=== PATIENT | female | born 1975 | race Caucasian/White ===

== ENCOUNTER 2021-10-19 08:11 | Outpatient (CLI) | payer SELFPAY | END 2021-10-19 08:12 | disposition home or self-care (01) | LOC: DI.CARD 08:12 | PROVIDERS: Visit Provider Internal Medicine Cardiovascular Disease | DX: Z53.8 Procedure and treatment not carried out for other reasons (principal) | CPT/HCPCS: 93010 ==

== ENCOUNTER 2022-03-15 11:07 | Emergency (ER) | payer MEDICARE, MEDICAID, SELFPAY ==
--- NOTE | 2022-03-15 11:09 | ED.GENADUL_ITS ---
Discharge Plan Disposition Patient Disposition: HOME Condition: Stable Discharge Details Clinical Impression: Leg wound, left, History of fasciotomy, Wound infection Primary Care Provider: Valentin Parekh ED Provider: Radha Herrera Home Meds and New Rx's Prescriptions: New metronidazole 500 mg tablet 500 mg PO Q6H 7 Days Qty: 28 0RF cephalexin 500 mg capsule 500 mg PO QID 7 Days Qty: 28 0RF oxycodone 10 mg tablet 10 mg PO TID PRN (Reason: pain) Qty: 10 0RF prochlorperazine maleate [Compazine] 10 mg tablet 10 mg PO TID PRN (Reason: nausea and vomiting) Qty: 14 0RF Continued acetaminophen 325 mg capsule 975 mg PO Q8H PRN atorvastatin 80 mg tablet 80 mg PO DAILY clopidogrel [Plavix] 75 mg tablet 75 mg PO DAILY ferrous sulfate 325 mg (65 mg iron) tablet,delayed release (DR/EC) 325 mg PO Q OTHER DAY Tresiba FlexTouch U-200 200 unit/mL (3 mL) insulin pen 120 unit subcut DAILY losartan 25 mg tablet 25 mg PO DAILY magnesium oxide 400 mg (241.3 mg magnesium) tablet 400 mg PO BID metoprolol succinate 50 mg tablet extended release 24 hr 50 mg PO DAILY PRN nitroglycerin 0.4 mg tablet, sublingual 0.4 mg sublingual Q5M PRN Rx Instructions: do not exceed 3 doses per episode pantoprazole 20 mg tablet,delayed release (DR/EC) 20 mg PO DAILY fluticasone propion-salmeterol [Advair Diskus] 500-50 mcg/dose blister with device 1 inh inhalation BID albuterol sulfate 2.5 mg /3 mL (0.083 %) solution for nebulization 2.5 mg inhalation Q6H PRN insulin lispro [Humalog KwikPen Insulin] 100 unit/mL insulin pen 10 unit subcut QID torsemide 20 mg Tablet 20 mg PO BID methadone 10 mg/5 mL Solution 50 mg PO DAILY Discontinued oxycodone-acetaminophen [Percocet] 5-325 mg tablet 1 tab PO Q8H PRN Discharge Instructions Instructions: Acute Wound Care (ED) Additional Instructions: Stop taking your clindamycin today. Prescriptions for 2 antibiotics, Keflex and Flagyl, have been sent electronically to your pharmacy to take as directed until finished. A prescription for the antinausea medication Compazine and the pain medication oxycodone has been sent electronically to your pharmacy to take as needed and directed. Apply wet gauze directly to the wounds followed by a dry dressing and bandage over the wet gauze to be changed once daily. Call [facility] general surgery today to confirm a follow-up appointment with them for reevaluation in 2 weeks. Return immediately to the emergency department if you develop any worsening or new concerning symptoms. Discharge Data Discharge Date/Time-TO BE ENTERED AT DEPARTURE: 03/15/22 14:46 Discharge Physician: Radha Herrera Medical Decision Making 46yo female with a hypertension, hyperlipidemia, diabetes, Heart rate 110s. She is afebrile. She otherwise appears nontoxic. Her medial leg fasciotomy incision appears closed but she is able to express serosa nguineous drainage with pressure. Her lateral fasciotomy incision is open with yellow drainage noted on the dressing. There is edema of the leg compared to the right leg but no significant cellulitis or fluctuant abscess noted. Her left leg distal pulses are intact. Patient is requesting pain medication. She takes methadone 50 mg once daily. Will d/w [facility] clinic and obtain cbc, cmp, crp and contact [facility] for recommendations. History and presentation appears more consistent with wound infection and does not appear consistent with dvt so will hold on leg US at this time. D/w Sara Pedroza at [facility] -- pt last took 50mg methadone this morning. Recommend Percocet 7.5 or 10 mg to override methadone for pain relief. IV Tylenol ordered but patient states she took 1 g of Tylenol prior to arrival. Will order 10 mg oxycodone p.o. Labs reviewed. White blood cell count 13. Potassium 3.2, will replete. CRP 9.42. Discussed with general surgery at [facility] --pictures of leg today obtained with patient's permission --they are unable to view these at this time as they are in the OR. Lab results discussed. Relates that patient had no signs of compartment syndrome or myositis during her fasciotomy. Recommend that we switch the antibiotics from clindamycin to Keflex and Flagyl and continue wet-to-dry dressings. Patient can follow-up with [facility] or she can return to [facility] if desired. Patient feels comfortable with discharge to home. We will stop her clindamycin and restart her Keflex and Flagyl. Prescriptions for Compazine and oxycodone also sent electronically to her pharmacy. Patient states she will follow-up with [facility] general surgery. Wet-to-dry dressings placed at bedside and she is advised to continue this at home. Usual and customary return precautions given prior to discharge. Medical Records Medical records reviewed: Yes I reviewed the patient's medical records. Lab Data Lab results reviewed: Yes I reviewed the patient's lab results. Labs: Laboratory Tests Range/Units 03/15/22 03/15/22 11:41 11:41 WBC (4.4-10.8) 10^3/uL 13.76 H RBC (3.93-5.22) 10^6/uL 4.63 Hgb (11.2-15.7) g/dL 13.7 Hct (36.0-46.0) % 41.0 MCV (80-95) fL 89 MCH (27.0-33.0) pg 29.6 MCHC (32.0-36.0) % 33.4 RDW (11.7-14.6) % 14.1 Plt Count (130-400) 10^3/uL 370 MPV (8.0-11.0) fL 10.0 Immature Gran % 0.3 Neutrophils % 57.7 Lymphocytes % 27.5 Monocytes % 10.5 Eosinophils % 3.6 Basophils % 0.4 Nucleated RBC % (0.0-0.3) % 0.0 Absolute Neutrophils (1.2-6.7) 10^3/uL 7.94 H Absolute Lymphocytes (1.2-3.4) 10^3/uL 3.78 H Absolute Monocytes (0.1-0.8) 10^3/uL 1.44 H Absolute Eosinophils (0.0-0.7) 10^3/uL 0.50 Absolute Basophils (0.0-0.2) 10^3/uL 0.06 Sodium (136-145) mmol/L 139 Potassium (3.5-5.1) mmol/L 3.2 L Chloride (98-107) mmol/L 101 Carbon Dioxide (21.0-32.0) mmol/L 30.8 Anion Gap (3-11) mmol/L 7.2 BUN (7-18) mg/dL 20 H Creatinine (0.55-1.02) mg/dL 0.8 Estimated GFR/1.73 m2 (mL/min/1.73m2) >= 60.00 Glucose (74-106) mg/dL 162 H Calcium (8.5-10.1) mg/dL 8.8 Total Bilirubin (0.2-1.0) mg/dL 0.3 AST (15-37) U/L 16 ALT (14-59) U/L 20 Alkaline Phosphatase (46-116) U/L 130 H C-Reactive Protein (0.0-0.3) mg/dL 9.42 H Total Protein (6.4-8.2) g/dL 8.0 Albumin (3.4-5.0) g/dL 3.4 HPI General Date/Time Provider Initiated Documentation: 03/15/22 11:09 . Limitations to Documentation: no limitations . Information obtained by: patient . HPI Narrative: Patient is a 46-year-old female with a history of hypertension, hyperlipidemia, diabetes, GERD, NSTEMI with a history of a left lower extremity fasciotomy and wound biopsy on 02/19/2022 at [facility] presents for concern for worsening pain, swelling and drainage from her left leg wounds. Patient states she followed up with [facility] last week as this is closer to home and she states they removed her sutures 1 week ago which she states was 1 week prematurely. She states since then she has had increased pain, swelling with yellow drainage from her wounds. She states she is taking clindamycin 4 times daily which she is unable to tolerate due to nausea. She states she is also on methadone but was given Percocet from [facility] which she states she has finished and needs more because she cannot control her pain. She admits to feeling feverish. Related Data Home Medications Medication Instructions Recorded Confirmed acetaminophen 325 mg capsule 975 mg PO Q8H PRN 10/18/21 03/15/22 albuterol sulfate 2.5 mg/3 mL 2.5 mg inhalation Q6H PRN 10/18/21 03/15/22 (0.083 %) solution for nebulization atorvastatin 80 mg tablet 80 mg PO DAILY 10/18/21 03/15/22 clopidogrel 75 mg tablet (Plavix) 75 mg PO DAILY 10/18/21 03/15/22 ferrous sulfate 325 mg (65 mg 325 mg PO Q OTHER DAY 10/18/21 03/15/22 iron) tablet,delayed release fluticasone 500 mcg-salmeterol 50 1 inh inhalation BID 10/18/21 03/15/22 mcg/dose blistr powdr for inhalation (Advair Diskus) insulin degludec 200 unit/mL (3 120 unit subcut DAILY 10/18/21 03/15/22 mL) subcutaneous pen (Tresiba FlexTouch U-200 insulin) insulin lispro 100 unit/mL 10 unit subcut QID 10/18/21 03/15/22 subcutaneous pen (Humalog KwikPen (U-100) Insulin) losartan 25 mg tablet 25 mg PO DAILY 10/18/21 03/15/22 magnesium oxide 400 mg (241.3 mg 400 mg PO BID 10/18/21 03/15/22 magnesium) tablet metoprolol succinate 50 mg 50 mg PO DAILY PRN 10/18/21 03/15/22 tablet,extended release 24 hr nitroglycerin 0.4 mg sublingual 0.4 mg sublingual Q5M PRN 10/18/21 03/15/22 tablet pantoprazole 20 mg tablet,delayed 20 mg PO DAILY 10/18/21 03/15/22 release cephalexin 500 mg capsule 500 mg PO QID 7 days #28 caps 03/15/22 methadone 10 mg/5 mL oral solution 50 mg PO DAILY 03/15/22 03/15/22 metronidazole 500 mg tablet 500 mg PO Q6H 7 days #28 tabs 03/15/22 oxycodone 10 mg tablet 10 mg PO TID PRN pain #10 tabs 03/15/22 prochlorperazine maleate 10 mg 10 mg PO TID PRN nausea and 03/15/22 tablet (Compazine) vomiting #14 tabs torsemide 20 mg tablet 20 mg PO BID 03/15/22 03/15/22 Previous Rx's Medication Instructions Recorded cephalexin 500 mg capsule 500 mg PO QID 7 days #28 caps 03/15/22 metronidazole 500 mg tablet 500 mg PO Q6H 7 days #28 tabs 03/15/22 oxycodone 10 mg tablet 10 mg PO TID PRN pain #10 tabs 03/15/22 prochlorperazine maleate 10 mg 10 mg PO TID PRN nausea and 03/15/22 tablet (Compazine) vomiting #14 tabs Allergies Allergy/AdvReac Type Severity Reaction Status Date / Time Bleach (Sodium Hypochlorite) Allergy Unknown Verified 03/15/22 11:21 mushroom Allergy Unknown Verified 03/15/22 11:21 Penicillins Allergy Unknown Verified 03/15/22 11:21 tramadol Allergy Unknown Verified 03/15/22 11:21 mold Allergy Verified 03/15/22 11:21 trazodone Allergy Unverified 03/15/22 11:21 General Stated Complaint: Cellulitis Review of Systems All systems reviewed & are unremarkable except as noted in HPI and below Constitutional Constitutional: Denies chills, Denies excessive sweating, Denies fatigue, Denies fever(s), Denies weakness and Denies weight loss Eyes Eyes: Reports system reviewed and no additional complaints, except as documented and Denies blurry vision ENT Ears, Nose, Mouth, and Throat: Denies vertigo, Denies dizziness, Denies otalgia, Denies nasal congestion, Denies sore throat and Denies throat swelling Cardiovascular Cardiovascular: Denies chest pain, Denies syncope, Denies rapid heart rate and D enies dyspnea Respiratory Respiratory: Denies chest congestion, Denies cough, Denies pain on inspiration and Denies dyspnea Gastrointestinal Gastrointestinal: Denies abdominal pain, Denies diarrhea and Denies vomiting Genitourinary Genitourinary: Denies hematuria, Denies dysuria and Denies flank pain Musculoskeletal Musculoskeletal: Denies back pain and Denies joint swelling Comments: Left leg pain Integumentary/Breasts Skin/Breast: Denies lesions and Denies rash Neurologic Neurologic: Denies behavioral changes, Denies confusion, Denies vertigo, Denies dizziness, Denies syncope, Denies localized weakness and Denies weakness Psychiatric Psychiatric: Denies behavioral changes, Denies confusion and Denies depression Endocrine Endocrine: Denies excessive sweating and Denies fatigue Hematologic/Lymphatic Hematologic/Lymphatic: Denies easy bruising and Denies lymphadenopathy Allergic/Immunologic Allergic/Immunologic: Denies throat swelling PFSH All Active Problems (Updated 03/15/22 @ 14:32 by Radha Herrera DO) Leg wound, left (Acute) History of fasciotomy (Acute) Wound infection (Acute) Pulmonary HTN (Acute) Heart failure (Acute) 09/02/21 with LA low EF Non-STEMI (non-ST elevated myocardial infarction) (Acute) 09/02/21 Vertigo (Acute) GERD (gastroesophageal reflux disease) (Chronic) Essential hypertension (Acute) Asthma (Chronic) Depression (Chronic) PTSD (post-traumatic stress disorder) (Acute) Tobacco abuse disorder (Acute) Hypokalemia (Acute) Chronic gout (Acute) Hyperlipidemia (Acute) Diabetic peripheral neuropathy (Acute) Type 2 diabetes mellitus (Acute) Medical History (Updated 03/15/22 @ 14:32 by Radha Herrera DO) COVID was vaccinated but contracted Covid 06/22 History of gastrointestinal ulcer Surgical History (Updated 03/15/22 @ 14:21 by Radha Herrera DO) H/O bone graft left knee H/O shoulder surgery x4 and ending with a full replacement H/O total hysterectomy History of appendectomy History of colonoscopy History of esophagogastroduodenoscopy (EGD) gastritis with gastric ulcers Previous section x4 delivery Family History (Updated 09/29/21 @ 13:41 by Wilian Carter) Mother Cancer Heart disease Obstructive lung disease Depression Arthritis Degeneration of intervertebral disc Father Alcohol use disorder Brother Hypertension Mood disorder Maternal Grandfather Alcohol use disorder Maternal Grandmother Breast cancer Maternal Aunt Breast cancer Paternal Aunt Breast cancer Social History (Updated 09/29/21 @ 13:50 by Wilian Carter) Smoking/Tobacco Use Status: Current every day Tobacco: How many years used: 34 Smoking risk assessment performed?: Yes Alcohol Intake: never Substance use type: does not use Do you feel safe at home: Yes Do you feel safe in your relationship?: Yes Exam Const General: cooperative Orientation: alert, awake and oriented x3 HENMT Head: normal to inspection Ears: hearing grossly normal bilaterally, external ears normal and TM's normal bilaterally General nose exam: external nose normal Face and sinus: normal facial exam Mouth: oral mucosae normal Teeth and gingiva: dentition normal Throat: posterior oropharynx normal Eyes General: appearance normal, both eyes and all related structures Eyelids: eyelids normal Pupils: PERRL EOM: EOM intact bilaterally Neck Neck: normal visual inspection Lymphatic: no lymphadenopathy noted Chest Chest: normal inspection of the chest Resp Effort & Inspection: normal respiratory effort and able to speak in complete sentences Auscultation: clear to auscultation bilaterally Cardio Rate: regular rate Rhythm: regular rhythm GI Inspection: normal to inspection Palpation: soft, not firm, no guarding, no hepatosplenomegaly, no masses and nontender Auscultation: normal bowel sounds Back/Spine/Pelvis Back: no CVA tenderness Skin General skin exam: no rashes or lesions noted Neuro General: patient alert and patient awake Cognition: normal cognition Speech: speech normal Gait: normal gait Motor: muscle tone normal throughout Sensory Exam: no sensory deficits noted Extrem General: capillary refill normal Ankle/foot/toe images: 1. 5 cm incision appears mostly approximated with minimal surrounding erythema but no fluctuance. There is serosanginous drainage with pressure. 2. 5 cm incision with approximately 2 cm opening. There is yellow drainage with in the wound but no surrounding erythema or fluctuance. Other: L DP/PT pulses intact. Psych Appearance: grossly normal Mental Status: mental status grossly normal Speech and Movement: speech and movement normal Affect: normal affect Thought Process: normal
[2022-03-15 11:14] VITALS: BP 114/81; PULSE 112; RESP 16; TEMP 36.1; O2SAT 96
[2022-03-15 11:46] LABS: Abs Immature Grans 0.04 10^3/uL (0.0-0.06); Absolute Basophil Count 0.06 10^3/uL (0.0-0.2); Absolute Lymphocyte Count 3.78 10^3/uL (1.2-3.4); Absolute Monocyte Count 1.44 10^3/uL (0.1-0.8); Absolute Neutrophil Count 7.94 10^3/uL (1.2-6.7); Basophils % 0.4; Eosinophils % 3.6; HGB 13.7 g/dL (11.2-15.7); Immature Grans % 0.3; Lymphocytes % 27.5; MCH 29.6 pg (27.0-33.0); MCHC 33.4 % (32.0-36.0); MCV 89 fL (80-95); Monocytes % 10.5; Neutrophils % 57.7; Platelet Count 370 10^3/uL (130-400); RBC 4.63 10^6/uL (3.93-5.22); RDW 14.1 % (11.7-14.6); RDW-SD 45.3 fL; WBC 13.76 10^3/uL (4.4-10.8)
[2022-03-15 12:06] LABS: ALT 20 U/L (14-59); AST 16 U/L (15-37); Albumin 3.4 g/dL (3.4-5.0); Alkaline Phosphatase 130 U/L (46-116); Anion Gap 7.2 mmol/L (3-11); BUN 20 mg/dL (7-18); Bilirubin, Total 0.3 mg/dL (0.2-1.0); C-Reactive Protein 9.42 mg/dL (0.0-0.3); CO2 30.8 mmol/L (21.0-32.0); CREATININE 0.8 mg/dL (0.55-1.02); Calcium 8.8 mg/dL (8.5-10.1); Chloride 101 mmol/L (98-107); Glucose 162 mg/dL (74-106); Potassium 3.2 mmol/L (3.5-5.1); Sodium 139 mmol/L (136-145)
[2022-03-15] MEDS: Potassium Chloride 20 MEQ TABCR 40 MEQ PO (12:18)
[2022-03-15] MEDS: oxyCODONE 10 MG TAB PO (12:18)
[2022-03-15] MEDS: Prochlorperazine 10 MG/2 ML VIAL IVP (13:41)
[2022-03-15] MEDS: Ketorolac 30 MG/ML VIAL IVP (13:41)
--- NOTE | 2022-03-16 10:54 | PDOC.ERCMACT ---
- If Service Date Differs Date of service: 03/16/22 Time of Service: 10:54 Care Management Activity Note Aracelis was seen in the ED on 03/15/22 for a leg wound infection and was subsequently discharged home. This morning, CM receives a phone call from Lesvia at [facility] inquiring if Aracelis was admitted to the hospital. Lesvia advises an RN was scheduled to make a home visit this morning but the RN has been unable to reach December. At Lesvia's request, the ED Visit Note is faxed to [facility].
== END 2022-03-15 14:46 | disposition home or self-care (01) ==
PROVIDERS: Emergency Provider Physician Assistant; PCP Family Medicine
DX: T81.49XA Infection following a procedure, other surgical site, initial encounter (principal)
CPT/HCPCS: 80053; 96374; 96375; 99284; 85025; 86140; 99283; J0780; J1885

== ENCOUNTER 2022-08-14 18:27 | Observation (INO) | payer MEDICARE, MEDICAID, SELFPAY ==
[2022-08-14] VITALS (51 sets, daily range): BP systolic 80–140; BP diastolic 48–86; PULSE 66–105; RESP 8–24; TEMP 36.7–36.8; O2SAT 94–97
--- NOTE | 2022-08-14 18:15 | RT.EKG_ITS ---
APPROVED REPORT Exam: Resting ECG Reason for Exam: palpitations, ? stroke Patient Location: E HR:96 bpm ECG Measurements Heart Rate 96 AXIS CO 146 P 11 QRSd 92 QRS 0 QT 407 T 53 QTc 515 Conclusion Sinus rhythm...normal P axis, V-rate 60- 99 Anterior infarct, old...Q >40mS, abnormal ST-T, V2-V5 Prolonged QT interval...QTc >510mS
--- OUTSIDE RECORDS SUMMARY | 2022-08-14 18:33 | XMS_ITS | Clinical Summary ---
:1975 Author Organization [facility] [place] [address] Care Team Providers Name Role Phone Lora Parekh MD Primary Care Provider Allergies Active Allergy Reactions Severity Noted Date Comments Penicillins Spoke to mother Vicenta. Rash and SOB as a child Tramadol 05/13/2022 Heart races Trazodone Low Medications Medication Sig Dispensed Refills Start Date End Date Status albuterol Take 2.49 mg by 0 Acti ve (PROVENTIL) 2.5 mg nebulization every 6 /3 mL (0.083 %) hours as needed. nebulizer solution fluticasone Inhale 1 puff into 0 Active propion-salmeteroL the lungs 2 times (ADVAIR) 500-50 daily. mcg/dose Disk with Device aspirin EC 81 mg Take 1 tablet by 30 tablet 3 09/06/2021 Active Tablet, Delayed mouth daily. Release (E.C.) atorvastatin Take 1 tablet by 90 tablet 3 09/05/2021 Active (Lipitor) 80 mg mouth every evening. Tablet clopidogreL (Plavix) Take 1 tablet by 90 tablet 3 09/06/2021 Active 75 mg Tablet mouth daily. ferrous sulfate EC Take 1 tablet by 30 tablet 3 09/06/2021 Active 325 mg (65 mg iron) mouth every other Tablet, Delayed day. Release (E.C.) Additional Information Patient taking differently: 325 mg Oral 2 TIMES DAILY, Reported on 05/13/2022 magnesium oxide (Mag-Ox) Take 1 tablet by mouth 2 30 tablet 12 09/05/2021 Active 400 mg (241.3 mg magnesium) times daily. Tablet gabapentin (Neurontin) 300 Take 2 capsules by mouth 90 capsule 12 09/05/2021 Active mg Capsule 2 times daily. Additional Information Patient taking differently: 600 mg Oral DAILY, Reported on 05/13/2022 insulin needles, disposable, Inject 1 each 100 each 11 021 Active 32 gauge x /32 subcutaneously daily. NeedleIndications: diabetes Indications: diabetes mellitus mellitus nicotine (Nicoderm CQ) 14 Change 1 patch on the 28 patch 3 Active mg/24 hr Patch 24 hr skin daily. pantoprazole EC (Protonix) Take 1 tablet by mouth 90 tablet 3 09/05/2021 Active 20 mg Tablet, Delayed daily. Release (E.C.) Additional Information Patient taking differently: 40 mg Oral DAILY, Reported on 05/13/2022 Blood Pressure Kit Med & 1 Product by 1 kit 0 09/06/2021 Active Lrg KitIndications: HFrEF Misc.(Non-Drug; Combo (heart failure with reduced Route) route 2 times ejection fraction), daily. Coronary artery disease involving [place] coronary artery of [place] heart without angina pectoris, Hypertension, unspecified type dextromethorphan Take 1 capsule by mouth 20 capsule 0 02/25/20 22 Active (Robitussin) 15 mg Capsule every 6 hours. ondansetron (Zofran) 4 mg Take 1-2 tablets by mouth 20 tablet 0 02/24/2022 Active Tablet every 8 hours as needed. polyethylene glycoL Take 17 g by mouth daily 14 each 0 02/24 Active (Miralax) 17 gram Powder in as needed. Packet acetaminophen (Tylenol) 500 Take 2 tablets by mouth 30 tablet 1 02/24/2022 Active mg Tablet every 6 hours. Additional Information Patient taking differently: 1,000 mg Oral PRN, Reported on 05/13/2022 liraglutide (VICTOZA) 0.6 Inject 1.8 mg 30 mL 0 02/24/2022 Active mg/0.1 mL (18 mg/3 mL) Pen subcutaneously daily. Injector cetirizine (ZyrTEC) 10 mg Take 10 mg by mouth daily 0 11/30/2021 Active Tablet as needed. colchicine (Colcrys) 0.6 Take 0.6 mg by mouth 2 0 Active mg Tablet times daily. Jardiance 10 mg Tablet Take 10 mg by mouth daily. 0 05/09/2022 Active fluticasone propionate as needed. 0 04/13/2022 Active (Flonase) 50 mcg/actuation [place], Suspension folic acid (Folvite) 1 mg Take 1,000 mcg by mouth 0 04/12/2022 Active Tablet daily. humaLOG KwikPen 100 as needed. 0 04/13/2022 Active unit/mL Insulin Pen methadone (Dolophine) 10 Take 100 mg by mouth every 0 Active mg Tablet 8 hours. [facility] furosemide (Lasix) 40 mg Take 1 tablet by mouth 60 tablet 3 Active Tablet daily. metoprolol succinate XL Take 1 tablet by mouth 60 tablet 3 Active (Toprol-XL) 25 mg Tablet daily. Sustained Release 24 hr nitroGLYcerin (Nitroglyn) Change 0.5 inches on the 30 g 0 05/23/2022 Active 2 % Ointment skin every 6 hours. nitroGLYcerin (Nitrostat) Place 1 tablet under the 25 tablet 3 05/23/2022 Active 0.4 mg Tablet, Sublingual tongue every 5 minutes as needed for Chest pain. Insulin Tresiba FlexTouch Inject 12 Units 9 mL 3 05/23/20 Active U-200 200 unit/mL (3 mL) subcutaneously daily. Insulin PenIndications: Indications: type 2 type 2 diabetes mellitus diabetes mellitus Active Problems Problem Noted Date Ischemic cardiomyopathy 05/17/2022 ASCVD (arteriosclerotic cardiovascular disease) 2021 Myositis 02/19/2022 NSTEMI (non-ST elevated myocardial infarction) 021 Dislocation of left shoulder joint, chronic, recurrent , with multiple 08/02/2012 surgeries. Encounters Date Type Specialty Care Team Description 06/02/2022 Office Visit Cardiology Denise Reeves, Cardiomyopa thy, unspecified type; PA HFrEF (heart fa ilure with reduced ejection fraction); DH PATIENT NOT SEEN 05/19/2022 Surgery Cardiology Khalida Otero CARDIAC CATH ETERIZATION MD [place] 05/17/2022 Surgery Cardiology Rafi Barrett CARDIAC GREG TERAMBROSE Hernandez MD 05/17/2022 - Hospital Encounter aRfi Barrett Coronar y artery disease involving [place] coronary artery of [place] heart without angina pectoris; 05/23/2022 MD Mary NSTEMI (non-ST elevated myocardial infar ction); John Paul Milley, Ischemic ca rdiomyopathy; Tameka Kulkarni MD Skin lesion; Hernán Mariscal ASCVD (arteri osclerotic cardiovascular disease) MD Marc from Last 3 Months Immunizations Name Administration Dates Next Due Influenza Vaccine PF, Quadrivalent 02/24/2022 Social History Tobacco Use Types Packs/Day Years Used Date Smoking Tobacco: Every Day Cigarettes 0.5 Smokeless Tobacco: Never Tobacco Cessation: Ready to Quit: No; Co unseling Given: No Alcohol Use Standard Drinks/Week Comments Yes 0 (1 standard drink = 0.6 oz pure alcoho l) occasional Sex Assigned at Date Recorded Not on file Last Filed Vital Signs Vital Sign Reading Time Taken Comments Blood Pressure 94/60 05/23/2022 11:40 AM EDT Pulse 56 05/23/2022 4:06 AM EDT Temperature 37.3 ??C (99.1 ??F) 05/23/2022 11:40 AM EDT Respiratory Rate 17 05/23/2022 11:40 AM EDT Oxygen Saturation 97% 05/23/2022 11:40 AM EDT Inhaled Oxygen Concentration - - Weight 84.2 kg (185 lb 10 oz) 05/23/2022 6:08 AM EDT Height 162.6 cm (5' 4) 05/18/2022 3:48 AM EDT Body Mass Index 31.86 05/18/2022 3:48 AM EDT Plan of Treatment Upcoming Encounters Date Type Specialty Care Team Description 08/22/2022 Appointment Cardiology 08/22/2022 Laboratory Appointment Lab 08/22/2022 Office Visit Cardiology Tameka Neal MD [facility] [address] [place] [address] (Wo rk) Health Maintenance Due Date Last Done Comments Covid-19 Vaccine (#1) 01/25/1976 Pneumococcal Vaccine: At-Risk 1981 5-64yrs (1 - PCV) HIV screen 1993 Hepatitis C Screening 1993 Tdap adult 1994 Tetanus vaccine 1994 HPV test 2005 Breast Cancer Share Decision 2015 Needed PAP Smear 10/21/2016 10/21/2011 Colonoscopy 2020 Influenza (Flu) vaccine (1 of 1 - 06/02/2022 02/24/2022 Influenza standard series) Diabetes Screening (HgbA1C or 05/23/2025 05/23/2022, 2021, Glucose) 05/21/2022, Additional history exists Procedures Procedure Name Priority Date/Time Associated Comments Diagnosis SCAN DOC: TELEMETRY 05/23/2022 11:40 Resu lts for this STRIPS AM EDT procedure are i n the results section. POCT GLUCOSE Routine 05/23/2022 11:39 Results for this AM EDT procedure are i n the results section. ARTERIAL DUPLEX ARM, Routine 05/23/2022 11:38 Skin lesion Res ults for this UNILAT AM EDT procedure are i n the results section. SCAN DOC: TELEMETRY 05/23/2022 7:39 Resul ts for this STRIPS AM EDT procedure are i n the results section. POCT GLUCOSE Routine 05/23/2022 7:27 Results for this AM EDT procedure are i n the results section. SCAN DOC: TELEMETRY 05/23/2022 4:47 Resul ts for this STRIPS AM EDT procedure are i n the results section. DIFFERENTIAL, AUTOMATED Routine 05/23/2022 3:19 R esults for this AM EDT procedure are i n the results section. HEMOGRAM Routine 05/23/2022 3:19 Results for this AM EDT procedure are i n the results section. HC CBC,PLT & AUTO DIFF Routine 05/23/2022 3:19 AM EDT HC VENIPUNCTURE Routine 05/23/2022 3:19 Results f or this AM EDT procedure are i n the results section. POCT GLUCOSE Routine 05/22/2022 8:06 Results for this PM EDT procedure are i n the results section. POCT GLUCOSE Routine 05/22/2022 5:39 Results for this PM EDT procedure are i n the results section. SCAN DOC: TELEMETRY 05/22/2022 4:55 Resul ts for this STRIPS PM EDT procedure are i n the results section. POCT GLUCOSE Routine 05/22/2022 12:07 Results for this PM EDT procedure are i n the results section. POCT GLUCOSE Routine 05/22/2022 8:04 Results for this AM EDT procedure are i n the results section. EKG 12-LEAD Routine 05/22/2022 6:31 Coronary artery Results f or this AM EDT disease involving procedure are in [place] coronary the results artery of [place] section. heart without angina pectoris SCAN DOC: TELEMETRY 05/22/2022 5:48 Resul ts for this STRIPS AM EDT procedure are i n the results section. AMYLASE Routine 05/22/2022 5:04 Results for this AM EDT procedure are i n the results section. LIPASE Routine 05/22/2022 5:04 Results for this AM EDT procedure are i n the results section. HEPATIC FUNCTION PANEL Routine 05/22/2022 5:04 Re sults for this AM EDT procedure are i n the results section. DIFFERENTIAL, AUTOMATED Routine 05/22/2022 5:04 R esults for this AM EDT procedure are i n the results section. HEMOGRAM Routine 05/22/2022 5:04 Results for this AM EDT procedure are i n the results section. HC MAGNESIUM, SERUM Routine 05/22/2022 5:04 Resul ts for this AM EDT procedure are i n the results section. HC CBC,PLT & AUTO DIFF Routine 05/22/2022 5:04 AM EDT HC VENIPUNCTURE Routine 05/22/2022 5:04 Results f or this AM EDT procedure are i n the results section. POCT GLUCOSE Routine 05/21/2022 7:34 Results for this PM EDT procedure are i n the results section. SCAN DOC: TELEMETRY 05/21/2022 5:47 Resul ts for this STRIPS PM EDT procedure are i n the results section. POCT GLUCOSE Routine 05/21/2022 4:37 Results for this PM EDT procedure are i n the results section. POCT GLUCOSE Routine 05/21/2022 12:34 Results for this PM EDT procedure are i n the results section. POCT GLUCOSE Routine 05/21/2022 11:03 Results for this AM EDT procedure are i n the results section. POCT GLUCOSE Routine 05/21/2022 9:48 Results for this AM EDT procedure are i n the results section. SCAN DOC: TELEMETRY 05/21/2022 8:08 Resul ts for this STRIPS AM EDT procedure are i n the results section. POCT GLUCOSE Routine 05/21/2022 7:42 Results for this AM EDT procedure are i n the results section. EKG 12-LEAD Routine 05/21/2022 6:45 Coronary artery Results f or this AM EDT disease involving procedure are in [place] coronary the results artery of [place] section. heart without angina pectoris SCAN DOC: TELEMETRY 05/21/2022 5:45 Resul ts for this STRIPS AM EDT procedure are i n the results section. POCT GLUCOSE Routine 05/21/2022 4:53 Results for this AM EDT procedure are i n the results section. DIFFERENTIAL, AUTOMATED Routine 05/21/2022 3:50 R esults for this AM EDT procedure are i n the results section. HEMOGRAM Routine 05/21/2022 3:50 Results for this AM EDT procedure are i n the results section. HC MAGNESIUM, SERUM Routine 05/21/2022 3:50 Resul ts for this AM EDT procedure are i n the results section. HC CBC,PLT & AUTO DIFF Routine 05/21/2022 3:50 AM EDT HC VENIPUNCTURE Routine 05/21/2022 3:50 Results f or this AM EDT procedure are i n the results section. POCT GLUCOSE Routine 05/20/2022 11:31 Results for this PM EDT procedure are i n the results section. POCT GLUCOSE Routine 05/20/2022 8:35 Results for this PM EDT procedure are i n the results section. SCAN DOC: TELEMETRY 05/20/2022 6:14 Resul ts for this STRIPS PM EDT procedure are i n the results section. POCT GLUCOSE Routine 05/20/2022 4:24 Results for this PM EDT procedure are i n the results section. POCT GLUCOSE Routine 05/20/2022 11:27 Results for this AM EDT procedure are i n the results section. SCAN DOC: TELEMETRY 05/20/2022 10:16 Resu lts for this STRIPS AM EDT procedure are i n the results section. POCT GLUCOSE Routine 05/20/2022 7:30 Results for this AM EDT procedure are i n the results section. EKG 12-LEAD Routine 05/20/2022 5:39 Coronary artery Results f or this AM EDT disease involving procedure are in [place] coronary the results artery of [place] section. heart without angina pectoris SCAN DOC: TELEMETRY 05/20/2022 5:23 Resul ts for this STRIPS AM EDT procedure are i n the results section. POCT GLUCOSE Routine 05/20/2022 4:31 Results for this AM EDT procedure are i n the results section. DIFFERENTIAL, AUTOMATED Routine 05/20/2022 3:40 R esults for this AM EDT procedure are i n the results section. HEMOGRAM Routine 05/20/2022 3:40 Results for this AM EDT procedure are i n the results section. HC MAGNESIUM, SERUM Routine 05/20/2022 3:40 Resul ts for this AM EDT procedure are i n the results section. HC CBC,PLT & AUTO DIFF Routine 05/20/2022 3:40 AM EDT HC VENIPUNCTURE Routine 05/20/2022 3:40 Results f or this AM EDT procedure are i n the results section. POCT GLUCOSE Routine 05/20/2022 3:27 Results for this AM EDT procedure are i n the results section. POCT GLUCOSE Routine 05/20/2022 12:25 Results for this AM EDT procedure are i n the results section. EKG 12-LEAD Routine 05/19/2022 11:33 NSTEMI (non-ST Results f or this PM EDT elevated procedure are i n myocardial the results infarction) section. POCT GLUCOSE Routine 05/19/2022 8:35 Results for this PM EDT procedure are i n the results section. POCT GLUCOSE Routine 05/19/2022 6:07 Results for this PM EDT procedure are i n the results section. SCAN DOC: TELEMETRY 05/19/2022 5:13 Resul ts for this STRIPS PM EDT procedure are i n the results section. POCT GLUCOSE Routine 05/19/2022 12:41 Results for this PM EDT procedure are i n the results section. SCAN DOC: TELEMETRY 05/19/2022 12:30 Resu lts for this STRIPS PM EDT procedure are i n the results section. CARDIAC CATHETERIZATION Routine 05/19/2022 10:17 Results for this AM EDT procedure are i n the results section. POCT GLUCOSE Routine 05/19/2022 7:31 Results for this AM EDT procedure are i n the results section. EKG 12-LEAD Routine 05/19/2022 5:59 Coronary artery Results f or this AM EDT disease involving procedure are in [place] coronary the results artery of [place] section. heart without angina pectoris SCAN DOC: TELEMETRY 05/19/2022 5:44 Resul ts for this STRIPS AM EDT procedure are i n the results section. POCT GLUCOSE Routine 05/19/2022 4:10 Results for this AM EDT procedure are i n the results section. DIFFERENTIAL, AUTOMATED Routine 05/19/2022 3:33 R esults for this AM EDT procedure are i n the results section. HEMOGRAM Routine 05/19/2022 3:33 Results for this AM EDT procedure are i n the results section. HC MAGNESIUM, SERUM Routine 05/19/2022 3:33 Resul ts for this AM EDT procedure are i n the results section. HC CBC,PLT & AUTO DIFF Routine 05/19/2022 3:33 AM EDT HC VENIPUNCTURE Routine 05/19/2022 3:33 Results f or this AM EDT procedure are i n the results section. POCT GLUCOSE Routine 05/19/2022 12:15 Results for this AM EDT procedure are i n the results section. PLANT CUSTODIAN SCAN 05/19/2022 12:00 Res ults for this AM EDT procedure are i n the results section. POCT GLUCOSE Routine 05/18/2022 8:21 Results for this PM EDT procedure are i n the results section. EKG 12-LEAD Routine 05/18/2022 7:05 Results for this PM EDT procedure are i n the results section. SCAN DOC: TELEMETRY 05/18/2022 5:02 Resul ts for this STRIPS PM EDT procedure are i n the results section. POCT GLUCOSE Routine 05/18/2022 4:04 Results for this PM EDT procedure are i n the results section. EKG 12-LEAD STAT 05/18/2022 3:40 Coronary artery Results f or this PM EDT disease involving procedure are in [place] coronary the results artery of [place] section. heart without angina pectoris US ABDOMEN LIMITED Routine 05/18/2022 2:52 Result s for this PM EDT procedure are i n the results section. POCT GLUCOSE Routine 05/18/2022 11:16 Results for this AM EDT procedure are i n the results section. POCT GLUCOSE Routine 05/18/2022 8:02 Results for this AM EDT procedure are i n the results section. POCT GLUCOSE Routine 05/18/2022 6:34 Results for this AM EDT procedure are i n the results section. SCAN DOC: TELEMETRY 05/18/2022 5:28 Resul ts for this STRIPS AM EDT procedure are i n the results section. EKG 12-LEAD STAT 05/18/2022 4:40 Coronary artery Results f or this AM EDT disease involving procedure are in [place] coronary the results artery of [place] section. heart without angina pectoris HEMOGLOBIN A1C STAT 05/17/2022 8:12 Results fo r this PM EDT procedure are i n the results section. HEPATIC FUNCTION PANEL STAT 05/17/2022 8:12 Re sults for this PM EDT procedure are i n the results section. SCAN, PERIPHERAL BLOOD STAT 05/17/2022 8:12 Re sults for this PM EDT procedure are i n the results section. DIFFERENTIAL, AUTOMATED STAT 05/17/2022 8:12 R esults for this PM EDT procedure are i n the results section. HEMOGRAM STAT 05/17/2022 8:12 Results for this PM EDT procedure are i n the results section. HC PROBNP STAT 05/17/2022 8:12 Results for this PM EDT procedure are i n the results section. HC MAGNESIUM, SERUM STAT 05/17/2022 8:12 Resul ts for this PM EDT procedure are i n the results section. BMP W/FASTING GLUCOSE STAT 05/17/2022 8:12 Res ults for this PM EDT procedure are i n the results section. HC CBC,PLT & AUTO DIFF STAT 05/17/2022 8:12 PM EDT POCT GLUCOSE Routine 05/17/2022 6:38 Results for this PM EDT procedure are i n the results section. POCT GLUCOSE Routine 05/17/2022 5:46 Results for this PM EDT procedure are i n the results section. EKG 12-LEAD Routine 05/17/2022 5:43 Coronary artery Results f or this PM EDT disease involving procedure are in [place] coronary the results artery of [place] section. heart without angina pectoris CARDIAC CATHETERIZATION Routine 05/17/2022 5:24 Coronary arter y Results for this PM EDT disease involving procedure are in [place] coronary the results artery of [place] section. heart without angina pectoris CORONARY ANGIOGRAPHY; W 05/17/2022 2:11 Coronary arter y LHC,POSSIBLE PCI PM EDT disease involving [place] coronary artery of [place] heart without angina pectoris CORONARY ANGIOGRAPHY; W 05/17/2022 2:11 Coronary arter y RHC PM EDT disease involving [place] coronary artery of [place] heart without angina pectoris POCT GLUCOSE Routine 05/17/2022 12:44 Results for this PM EDT procedure are i n the results section. from Last 3 Months Results SCAN DOC: TELEMETRY STRIPS (05/23/2022 11:40 AM EDT)Only the most recent of16 resultswithin the time period is included. Narrative 05/23/2022 11:40 AM EDT This result has an attachment that is no t available. Ordered by an unspecified provider. Scanning Provider MEDIA MGR SCAN EXT ORDR/RSLT POCT Glucose (05/23/2022 11:39 AM EDT)Only the most recent of35 resultswithin the time period is included. athologist Signature POC Glucose 186 65 - 199 [facility] mg/dL [facility] Comment: Supplemental ranges: <140 mg/dL before meals <180 mg/dL all other times of the day Specimen Anatomical Collection Method Collection Time Receive d Time (Source) Location / / Volume Laterality Blood 05/23/2022 11:39 05/23/2022 AM EDT 11:39 AM EDT Hernán Mariscal MD POINT OF CARE TEST ORDERABLE S Performing Organization Address City/State/ZIP Code Phon e Number [place] [id number] Arterial Duplex Arm, Unilat (05/23/2022 11:38 AM EDT) Component Value Ref Test Analysis Performed At [facility] gist Range Method Time Signature VB Text Department: Vascular Surgery Lab [facility] Report Patient: [id number] (December) CPT: 71873 Referring Physician: TRINIDAD MARTINEZ ?? Phone: Indications: ??S/P cardiac cath with weeping wound. Findings: Right ?PSV (cm/s) ??EDV (cm/s) ?? Radial Artery, Distal ?54 ?15 ?? Interpretation: Right: Patent distal radial artery with no evidence of pseud oaneurysm or arteriovenous fistula in the distal forearm. Comparison: ??No previous study in our vascular lab da tabase for comparison. Electronically Signed by: LORA NEUMANN M.D. on 2022-05-23 10 :10:08 AM VB Text End of Report [facility] Report Specimen (Source) Anatomical Collection Method Collection Time Re ceived Time Location / / Volume Laterality 05/23/2022 11:38 AM EDT Trinidad Che APRN VASCULAR ORDERABLES Performing Organization Address City/State/ZIP Code Phon e Number [email or web address] (ABNORMAL) BMP w/fasting Glucose (05/23/2022 3:19 AM EDT)Only the most recent of 6 resultswithin the time period is included. athologist Signature Glucose 277 (H) 65 - 99 [facility] Fasting mg/dL [facility] Comment: ?Fasting* Glucose Interpretive C riteria Normal ?65-99 mg/dL Impaired Fasting glucose ?100-125 mg/dL Consistent with Diabetes Mellitus ? >or= 126 mg/dL *Fasting is defined as no caloric intake for at least 8 hours In the absence of unequivocal hypergly cemia a plasma glucose value of >or= 126 mg/dL should be repeated on a subseq uent day. Diagnosis and Classification of Diabetes Mellitus, Position Statement from the [place] [employer]. ??Diabete s Care, Volume 33, Supplement 1, Oct 2009 BUN 24 (H) 8 - 18 mg/dL [facility] Creatinine 0.77 0.70 - 1.20 mg/dL [facility] Sodium 137 135 - 145 mmol/L [facility] Potassium 4.4 3.5 - 5.0 mmol/L [facility] Comment: Please note: ??Patients with WBC >100,00 0 may have falsely elevated Potassium levels. ??For accurate Potassium quantif ication in these patients send serum separator tube (gold top) for subsequent determinations. ??Contact the Clinical Chemistry Laboratory if there are any qu estions. Chloride 102 98 - 107 mmol/L [facility] CO2 24 22 - 31 mmol/L [facility] Anion Gap 11 5 - 15 mmol/L [facility] Calcium 8.8 8.5 - 10.5 mg/dL [facility] Estimated GFR 96 >=60 mL/min/1.73 m?? [facility] Comment: This patient's estimated GFR was calcula vannesa using the 2020 CKD-EPI equation. The estimated GFR can vary from the tatiana ured GFR by up to 30% in the absence of rapidly changing kidney function. Assess ment of the estimated GFR is not appropriate when creatinine concentratio ns are rapidly changing. For clinical situations in which a more precise estim ate of GFR is necessary, consider alternative methods of GFR estimation ansari ch as a 24-hour urine creatinine clearance. Assignment of CKD stage 1-5 for patients with an eGFR near the transition point between stages may be based on clinical assessment of muscle mass and symptoms in addition to eGFR. Specimen Anatomical Collection Method Collection Time Receive d Time (Source) Location / / Volume Laterality Blood 05/23/2022 3:19 AM 2 3:40 EDT AM EDT Resulting Agency Comment Spec In Lab Trinidad Che APRN CHEMISTRY ORDERABLES Performing Organization Address City/State/[place] [address] (ABNORMAL) Hemogram (05/23/2022 3:19 AM EDT)Only the most recent of6 results within the time period is included. Analysis Performed At Patho logist Time Signature WBC 7.8 4.0 - 9.5 [facility] x10(3)/[facility] LABORATORY RBC 4.98 4.00 - [facility] 5.21 [facility] x10(6)/[facility] LABORATORY Hemoglobin 14.3 11.7 - [facility] 15.5 g/dL [facility] Hematocrit 44.1 35.7 - [facility] 45.8 % [facility] MCV 88.6 82.6 - [facility] 94.4 [facility] LABORATORY [facility] 28.7 27.1 - [place]EL WHEATJOSE DAVID 32.0 pg [facility] MCHC 32.4 31.7 - [place] JOSE DAVID 35.0 g/dL [facility] Platelets 301 145 - 357 [facility] x10(3)/[facility] LABORATORY RDWSD 46.6 (H) 37.0 - [facility] 46.0 [facility] LABORATORY RDWCV 14.5 (H) 11.5 - [facility] % [facility] MPV 10.4 7.6 - 12.9 [facility] LABORATORY nRBC % Auto 0.0 % [facility] nRBC Abs Auto 0.000 0.000 - [facility] 0.000 [facility] x10(3)/[facility] LABORATORY Specimen Anatomical Collection Method Collection Time Receive d Time (Source) Location / / Volume Laterality Blood 05/23/2022 3:19 AM 3:40 EDT AM EDT Resulting Agency Comment Spec In Lab Trinidad Che APRN HEMATOLOGY ORDERABLES Performing Organization Address City/State/ZIP Code Phon e Number [place] [phone] (ABNORMAL) Differential, Automated (05/23/2022 3:19 AM EDT)Only the most recent of6 resultswithin the time period is included. [facility] Method Time Signature Neutrophils % 36.4 % [facility] Neutr Abs (ANC) 2.86 1.70 - [place] 6.10 [facility] x10(3)/[facility] LABORATORY Lymphocytes % 44.5 % [facility] Lymphocytes Abs 3.5 (H) 0.9 - 3.2 [facility] x10(3)/[facility] LABORATORY Monocytes % 9.8 % [facility] Monocyte Abs 0.8 0.3 - 0.9 [facility] x10(3)/[facility] LABORATORY Eosinophils % 8.4 % [facility] Eosinophils Abs 0.7 (H) 0.0 - 0.4 [facility] x10(3)/[facility] LABORATORY Basophils % 0.6 % [facility] Basophils Abs 0.0 0.0 - 0.1 [facility] x10(3)/[facility] LABORATORY Immature Gran % 0.30 % [facility] Comment: Immature granulocytes(IG's)percentage an d absolute count will include metamyelocytes, myelocytes, and promyelo cytes. Blood smears from CBCs yielding IG's will be scanned manually for concor dance. If this scan disagrees with the automated IG or if promyelocytes are not ed, a manual differential will be performed. [facility]aya Gran Abs 0.02 0.00 - 0.04 x10(3)/[facility] Specimen Anatomical Collection Method Collection Time Receive d Time (Source) Location / / Volume Laterality Blood 05/23/2022 3:19 AM 2 3:40 EDT AM EDT Resulting Agency Comment Spec In Lab Trinidad Che NECK BAND OPERATOR HEMATOLOGY ORDERABLES Performing Organization Address City/State/ZIP Code Phon e Number [place] [phone] EKG 12 Lead (05/22/2022 6:31 AM EDT)Only the most recent of9 resultswithin the time period is included. Component Value Ref Range Test Analysis Performed Pathologis t Method Time At Signature Ventricular rate 57 BPM MUSE SYSTEM Atrial Rate 57 BPM MUSE SYSTEM P-R Interval 170 ms MUSE SYSTEM QRS Duration 94 ms MUSE SYSTEM Q-T Interval 454 ms MUSE SYSTEM QTC Calculated 441 ms MUSE SYSTEM (Bezet) Calculated P [place] 24 degrees MUSE SYSTEM Calculated R [place] 17 degrees MUSE SYSTEM Calculated T [place] 110 degrees MUSE SYSTEM INTERPRETATION Sinus bradycardia MUSE SY STEM Septal infarct (cited on or before 20-MAY-2022) T wave abnormality, consider lateral ischemia Abnormal ECG When compared with ECG of 21-MAY-2022 06:45, (unconfirmed) Serial changes of Septal infarct Present Confirmed by MD Davey, Hernán ([id number]) on 05/22/2022 8:09:10 AM Specimen Anatomical Collection Method Collection Time Receive d Time (Source) Location / / Volume Laterality 05/22/2022 6:31 AM 2 8:09 EDT AM EDT Mary Wray NECK BAND OPERATOR ECG ORDERABLES Performing Organization Address City/State/ZIP Code Phon e Number MUSE SYSTEM Magnesium (05/22/2022 5:04 AM EDT)Only the most recent of5 resultswithin the time period is included. P athologist Signature Magnesium 1.03 0.69 - 1.07 [facility] LABORATORY Specimen Anatomical Collection Method Collection Time Receive d Time (Source) Location / / Volume Laterality Blood 05/22/2022 5:04 AM 5:14 EDT AM EDT Resulting Agency Comment Spec In Lab Maryrosa Wray NECK BAND OPERATOR CHEMISTRY ORDERABLES Performing Organization Address City/[facility]/[place] [address] Lipase (05/22/2022 5:04 AM EDT) P athologist Signature Lipase 22 0 - 60 [facility] LABORATORY Specimen Anatomical Collection Method Collection Time Receive d Time (Source) Location / / Volume Laterality Blood Venous Draw / 05/22/2022 5:04 AM 05/22/20 22 5:18 Unknown EDT AM EDT Resulting Agency Comment Spec In Lab Trinidad J Chinedu NECK BAND OPERATOR CHEMISTRY ORDERABLES Performing Organization Address City/[facility]/[place] [address] Amylase (05/22/2022 5:04 AM EDT) athologist Signature Amylase 44 28 - 100 [facility] LABORATORY Specimen Anatomical Collection Method Collection Time Receive d Time (Source) Location / / Volume Laterality Blood Venous Draw / 05/22/2022 5:04 AM 05/22/20 22 5:18 Unknown EDT AM EDT Resulting Agency Comment Spec In Lab Trinidad Che NECK BAND OPERATOR CHEMISTRY ORDERABLES Performing Organization Address City/[facility]/[place] [address] (ABNORMAL) Hepatic Function Panel (05/22/2022 5:04 AM EDT)Only the most recent of2 resultswithin the time period is included. Analysis Performed At Patho logist Time Signature Total Protein 6.6 6.1 - 8.0 [place] g/dL [facility] Albumin 3.8 3.2 - 5.2 [place] g/dL [facility] AST 31 (H) 0 - 30 [facility] DAVID unit/L [facility] ALT 29 0 - 30 [facility] Alk Phos 112 (H) 35 - 105 [facility] Total 0.2 0.2 - 1.3 [place] DAVID Bilirubin mg/dL [facility] Bili, Direct Not Perf 0.0 - 0.3 [facility] JO[facility] DAVID mg/dL [facility] Comment: Specimen lipemic or turbid in a ppearance, unsuitable for analysis. Specimen Anatomical Collection Method Collection Time Receive d Time (Source) Location / / Volume Laterality Blood Venous Draw / 05/22/2022 5:04 AM 05/22/20 22 5:18 Unknown EDT AM EDT Resulting Agency Comment Spec In Lab Trinidad Che APRN CHEMISTRY ORDERABLES Performing Organization Address City/State/[place] [address] CARDIAC CATHETERIZATION (05/19/2022 10:17 AM EDT)Only the most recent of2 resultswithin the time period is included. Anatomical Region Laterality Modality Other Specimen (Source) Anatomical Location Collection Method / Collectio n Time Received Time / Laterality Volume Narrative 05/19/2022 10:29 AM EDT ?[facility] ? Cardiac Cathete rization/Intervention Report ? Patient Name: Sho, Aracelis ? Procedure Date: 05/19/2022 ? A #: [id number] ? Primary Physician: Khalida Otero I ? Case #: [id number] ? File Name: [id number] ? Catheterization Order Number: [id number] ? [facility] ? Final Report [place], [place] ? Patient Name: ? Aracelis Sho ? ID#: ?[id number] ? : ?1975 ? Procedure Date: ? May 19, 2022 ?Case #: ? [id number] ? Room: ? 1 ? Case Physician: ? Khalida morgan M.D. ? Start: ?09:55 ?Fellow: ? Tai Freire D.O. ?Admission: ??05/17/2022 ?Kaveh fragoso M.D. ? Procedures: ?* Right Heart Catheterization ?* Oximetry ? History ?Aracelis Monique is a 46 year old wom an. She has hypertension. The patient's ?smoking status is Current with Current - Every Day frequency, using ?cigarettes. Cigarette use is Santino liban (>=10/day). She has ?hypercholesterolemia. The patie nt has insulin dependent diabetes ?mellitus. She is status post a remote myocardial infarction. The patient ?had a recent coronary intervent ion procedure. She has a history of an ?ejection fraction less than or equal to 35% and pulmonary hypertension. ?The patient has a history of CH F. The CHF is NYHA Functional Class II and ?is classified as Systolic. The patient also has a history of chronic ?obstructive pulmonary disease. Prior to the initiation of this procedure, ?the patient was designated as A SA Class III. The CSHA clinical frailty ?scale is 3: Managing Well. ? Diagnostic Tests: ?Prior Coronary Angiography: ? Prior coronary angiograp hy was performed on 09/03/2021 and showed ? obstructive CAD. LV ejec tion fraction within 6 months is 31%. ?Electrocardiography: ? EKG was assessed by ECG. EKG was Abnormal. EKG showed T-wave ? inversions. ?Medications Prior to Procedure: ? Aspirin, Angiotensin II Receptor Yony, Beta Yony and Statin. ? Indications for Diagnostic Cath: ?The priority of the diagnostic procedure was Urgent. The indication for ?the laborer golf course visit is cardiomyo julian. Chest pain symptom assessment was: ?Asymptomatic. ? Technique: ?A 5Fr sheath was inserted in th e right median antecubital vein utilizing ?the Seldinger technique. Right heart catheterization was performed ?utilizing a 5Fr BALLOON WEDGE c atheter. Radiation: Fluoro time was 2.1 ?minutes, dose area product was 3,080 mGYcm2 and air kerma was 20 mGY. See ?the case log for additional det ails. ? Hemodynamics: ?Right Heart Pressures ? Resting: ? Syst D iast ? EDP ?a ?v ? m ?RA ? 7 ? 10 ? 6 ?RV 32 ?7 ?PA 31 ? 7 ?22 ?PCW ?12 ?16 ?12 ? Hemodynamic Profile: ?Profile 1 ?CO ? 5.18 ?CI ? 2.70 ?TPR ?340 ?PVR ?154 ?Techniq ue ?Estimated Jefe ? Oximetry: ?Location ? % Sat ?Location ?%Sat ?Main Pulmonary Artery ??66.0 ? Vascular Access: ?Vascular Access Management: ? Manual Compression of th e right median antecubital vein access site ? was performed. ? Complications/Events: ?The patient had no complication s during these procedures. ?The attending physician was presen t for the entire procedure. ?Dr. Khalida Otero M.D. was pre sent during the moderate sedation ?intraservice time as documented by the sedation nurse. ??Case time = 00:17. ?Dr. Khalida Otero M.D. perform ed the right heart catheterization and ?oximetry. ? Khalida Otero M.D. ? Electronically Signed by: Khalida granados M.D. ? Report Finalized: 05/19/2022 ??10:21 ? Khalida Fatima MD CARDIAC CATH ORDERABLES SCAN DOC: PLANT CUSTODIAN (05/19/2022 12:00 AM EDT) Anatomical Region Laterality Modality Other Narrative 05/19/2022 12:00 AM EDT This result has an attachment that is no t available. Ordered by an unspecified provider. Scanning Provider MEDIA MGR SCAN EXT ORDR/RSLT (ABNORMAL) US Abdomen Limited (05/18/2022 2:52 PM EDT) Anatomical Region Laterality Modality Abdomen Ultrasound Specimen (Source) Anatomical Collection Method Collection Time Re ceived Time Location / / Volume Laterality 05/18/2022 2:50 PM EDT Impressions 05/18/2022 3:13 PM EDT 1. ??Homogeneous hepatic parenchymal ec hotexture without mass. No biliary dilation. Normal gallbladder. 2. ??4 mm pancreatic duct is upper limi ts of normal. This not visualized pancreatic head. Further evaluation wit h pancreatic mass MRI is suggested to exclude the possibility of an occult le sj. This need not be performed on an inpatient basis. Unexpected finding. 3. 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 Right kidney measures 12.3 cm in length. 4. ??Left kidney measures 10.1 cm in le ngth without collecting system dilation. No renal cysts. Bladder collapsed. Electronically signed by: Marc Rivera, Radiology [place] ([phone]), at 3:07 PM Thank you for letting us participate in the care of this patient. If you are a [facility] er and have any questions regarding this report, please contact the number above. For patients who have ques tions, please contact the [facility] professio nal that requested your imaging first. ?Billie Juan, [facility] Chief Electronically Signed Final Report ?? 03:13 pm Narrative 05/18/2022 3:13 PM EDT Abdominal ? (Signed Final 05/18/2022 03:13 pm) PATIENT INFO: ID #: ? [id number] ?: ??[birth year] (46 yrs)(F) Name: ? DECEMBER SHO ? Visit Date: 05/18/2022 02:50 pm PERFORMED BY: Performed By: ? Aubrey Lopez RDMS Attending: ?Billie Juan MD Referred By: ?PATY BUENO Location: ? [place] SERVICE(S) PROVIDED: UABDLIM - Abdominal Limited Survey Sing le ? [id number] Organ or Quadrant - [id number] URETRO - Retroperiteneal Complete - IMG 3517 ? [id number] INDICATIONS: RUQ pain, r/o cholelithiasis/cholecysti its, Add Retro complete exam: ??hx of cysts in left kidney ------ LIVER: ------ Right Lobe Length: ?? 16.4 ?? cm Echogenicity/Echotexture: ?? Normal GALLBLADDER: Cholelithiasis: ?No stones visua lized Focal Tenderness: ?Negative sonogra phic Hanks's sign BILIARY TRACT: Intrahepatic Ducts: ?? Normal Extrahepatic Ducts: ?? Normal Common Duct Size: ? 4.0 ? mm --------- PANCREAS: --------- Head: ?Normal ?Size: Tail: ?Poorly visualized due to ?Size: ?overlying bowel Body: ?Normal ?Size: Comment: ?Pancreatic duct 4 mm RIGHT KIDNEY: Size (cm) ?L: ??13.2 Cortical Thickness: ?Normal Cortical Echogenicity: ?? Normal Hydronephrosis: ?No sonogr aphic evidence LEFT KIDNEY: Size (cm) ?L: ??10.1 URINARY BLADDER: Pre-void (cm) ? L: ??3.4 ? A P: ??1.9 ? TV: ??6.0 Vol (ml): ?20.3 ------ AORTA: ------ Measurements (cm): Proximal ? AP: ?? 2.4 ---- IVC: ---- Normal in caliber where visualized. Resulting Agency Comment Unexpected Finding Paty Bueno MD IMG GEN ORDERABLES Scan, Peripheral Blood (05/17/2022 8:12 PM EDT) [facility] gist Method Time Signature Plat Estimate Normal [facility] RBC Morphology Normal [facility] Giant Platelets Less than /HPF [address] LABORATORY Specimen Anatomical Collection Method Collection Time Receive d Time (Source) Location / / Volume Laterality Blood 05/17/2022 8:12 PM 2 8:18 EDT PM EDT Resulting Agency Comment Spec In Lab Paty Bueno MD HEMATOLOGY ORDERABLES Performing Organization Address City/State/[place] [address] (ABNORMAL) pro-Brain Natriuretic Peptide (05/17/2022 8:12 PM EDT) P athologist Signature ProBNP 186 (H) <=124 pg/mL [facility] Specimen Anatomical Collection Method Collection Time Receive d Time (Source) Location / / Volume Laterality Blood 05/17/2022 8:12 PM 2 8:17 EDT PM EDT Resulting Agency Comment Spec In Lab Paty Bueno MD CHEMISTRY ORDERABLES Performing Organization Address City/[facility]/[place] [address] (ABNORMAL) Hemoglobin A1c (05/17/2022 8:12 PM EDT) Analysis Performed At Patho logist Time Signature Hemoglobin A1C 6.0 (H) 4.3 - 5.6 [facility] Comment: Reference Range: 4.3 - 5.6% 5.7 - 6.4% - Increased Risk of Developin g Diabetes Mellitus >= 6.5% - Consistent with diagnosis of D iabetes Mellitus In the absence of hyperglycemia (i.e. pl asma glucose > 200 mg/dL) or classic symptoms of hyperglycemia a repeat measu rement of HbA1c should be performed on a separate sample to confirm the diagnos is. Diagnosis and Classification of Diabetes Mellitus, Diabetes Care 2013; 36: Suppl. 1, S67-85 Est Avg Gluc 127 mg/dL [facility] Comment: eAG equivalents for HbA1c percentages: HbA1c(%) ?eAG(mg/dL) 6.0 ?126 6.5 ?140 7.0 ?154 7.5 ?169 8.0 ?183 8.5 ?197 9.0 ?212 9.5 ?226 10.0 ? 240 Limitations: The eAG calculation has not been validated on women, individuals below 18 years old and above 70 years old, and individuals with hemoglobinopathies. Additional resources are available on [facility] website. Arnel TSE, Louis J, Anthony R, et al. ??Tr anslating the A1C assay into estimated average glucose values. ??Diabetes Care 2008:31(8):8965-0287. Specimen Anatomical Collection Method Collection Time Receive d Time (Source) Location / / Volume Laterality Blood Venous Draw / 05/17/2022 8:12 PM 05/18/20 22 Unknown EDT 10:02 AM EDT Resulting Agency Comment Spec In Lab Mary Wray NECK BAND OPERATOR CHEMISTRY ORDERABLES Performing Organization Address City/State/[place] [address] from Last 3 Months Insurance Payer Benefit Plan / Subscriber ID Effective Dates Phone Addre ss Type Group MEDICARE MEDICARE PART [id number] 2021-Prese [phone] [facility] [place] [address] [place] [id number] 2021-Prese [phone] [address] [place] [address] Advance Directives Latest Code Status on File Code Status Date Activated Date Inactivated Comments Attempt Cardiopulmonary Resuscitation - 05/17/2022 1:49 PM 022 4:02 PM Inpatient Question Answer Comments Code Status decision made by: Patient Code Status History Code Status Date Activated Date Inactivated Comments Attempt Cardiopulmonary Resuscitation - 05/17/2022 1:40 PM 1:49 PM Inpatient Question Answer Comments Code Status decision made by: Patient Attempt Cardiopulmonary Resuscitation - 02/19/2022 6:39 AM 2:34 PM Inpatient Question Answer Comments Code Status decision made by: Patient Attempt Cardiopulmonary Resuscitation - 09/02/2021 12:49 PM 2020 3:13 PM Inpatient Question Answer Comments Code Status decision made by: Patient Attempt Cardiopulmonary Resuscitation - 09/02/2021 12:46 PM 2020 12:49 PM Inpatient Question Answer Comments Code Status decision made by: Patient Care Teams E M Assembler Relationship Specialty Start Date End Date Lora Parekh MD PCP - General Family Medicine 08/06/[address] [place] [address] [phone]
--- OUTSIDE RECORDS SUMMARY | 2022-08-14 18:33 | XMS_ITS | Encounter Summary ---
:1975 Author Organization [facility] [place] [address] Care Team Providers Name Role Phone Valentin Parekh MD Primary Care Provider Encounter Details Date Type Department Care Team Description 06/02/2022 Office Visit Cardiology at [facility] Denise Reeves, Cardiomyopathy, unspecified type; [facility] HFrEF (heart failure with reduced ejecti on fraction); [facility] [place]IENT [place] [phone] Cardiology Dept [phone] [place], [place] [address] Social History Tobacco Use Types Packs/Day Years Used Date Smoking Tobacco: Every Day Cigarettes 0.5 Smokeless Tobacco: Never Alcohol Use Standard Drinks/Week Comments Yes 0 (1 standard drink = 0.6 oz pure alcoho l) occasional Sex Assigned at Date Recorded Not on file documented as of this encounter Progress Notes Denise Reeves PA - 06/02/2022 2:00 PM EDT This patient was not seen in this encounter. No show. documented in this encounter Plan of Treatment Upcoming Encounters Date Type Specialty Care Team Description 08/22/2022 Appointment Cardiology 08/22/2022 Laboratory Appointment Lab 08/22/2022 Office Visit Cardiology Tameka Neal MD [facility] [address] [place] [address] (Wo rk) Scheduled Orders Name Type Priority Associated Diagnoses Order S chedule CBC (with Diff) Lab Routine Cardiomyopathy, Expected: 06/02/2022 unspecified type (Approximate), HFrEF (heart failure Expires : 06/02/2023 with reduced ejection fraction) Comprehensive metabolic Lab Routine Cardiomyopathy, E xpected: 06/02/2022 panel (non-fasting) unspecified type (Approximate), HFrEF (heart failure Expires : 06/03/2023 with reduced ejection fraction) pro-Brain Natriuretic Lab Routine Cardiomyopathy, Exp ected: 06/02/2022 Peptide unspecified type (Approximate), HFrEF (heart failure Expires : 06/02/2023 with reduced ejection fraction) documented as of this encounter Visit Diagnoses Diagnosis Cardiomyopathy, unspecified type HFrEF (heart failure with reduced ejecti on fraction) [facility] PATIENT NOT SEEN documented in this encounter Care Teams Documentation Consultant Relationship Specialty Start Date End Date Valentin Parekh MD PCP - General Family Medicine 08/06/[address] [place] [address] [phone] documented as of this encounter
--- OUTSIDE RECORDS SUMMARY | 2022-08-14 18:33 | XMS_ITS | Continuity of Care Document ---
:[address] [facility] Address [address] [place] [address] Care Team Providers Name Role Phone Valentin Parekh Primary Care Physician Encounter [facility] [id number] Date(s): 06/26/22 - 06/26/22 [facility] [address] [place] [address] Encounter Diagnosis Chest pain (Discharge Diagnosis) - 06/26/22 Discharge Disposition: Home Attending Physician: Steven Cohen MD Admitting Physician: Steven Cohen MD Allergies, Adverse Reactions, Alerts Substance Reaction Severity Status BLEACH (SODIUM HYPOCHLORITE) Unknown Act mateo MOLD Unknown Active MUSHROOM Unknown Active ANIMAL DANDER Unknown Active HOUSE DUST Unknown Active POLLEN EXTRACTS Unknown Active penicillins Unknown Active traZODone Unknown Active traMADol Unknown Active Perfume Unknown Active Assessment and Plan Future AppointmentsDiagnostic Tests PendingBlood Culture 06/26/22Blood Culture 06/26/22 Future Scheduled TestsLaboratoryCBC w/ Diff 04/28/22CBC w/ Diff 06/24/22 Comprehensive Metabolic Panel 06/24/22Comprehensive Metabolic Panel 03/24/22Lipid Panel 06/24/22NT- Pro BNP 04/28/22Renal Function Panel 04/28/22 Microalbumin/Creatinine Ratio Urine 06/24/22Microalbumin/Creatinine Ratio Urine 03/24/22Hemoglobin A1c 06/24/22Hemoglobin A1c 03/24/22 Immunizations Given and Recorded Vaccine Date Status Refusal Reason SARS-CoV-2 (COVID-19) mRNA-1273 vaccine 10/26/21 Recorded SARS-CoV-2 (COVID-19) Ad26 vaccine 12/08/20 Recorded influenza virus vaccine, live 08/06/18 Recorded Medications !-Levaquin 500 mg oral tablet 500 mg = 1 tab, Oral, every 24 hr, # 10 tab, 0 Refill(s), Pharmacy: [id number], 163, cm, 04/19/22 12:01:00 EDT, Height/Length Dosing, 83, kg, 04/19/22 12:01:00 EDT, Weight Dosing Start Date: 06/24/22 Stop Date: 07/04/22 Status: OrderedAdvair HFA 45 mcg-21 mcg/inh inhalation aerosol 2 puffs, Inhale, BID Start Date: 03/03/22 Status: OrderedAlbuterol (Eqv-ProAir HFA) 90 mcg/inh inhalation aerosol 2 puffs, Inhale, every 3 hr, PRN other (see comment), as needed Start Date: 03/03/22 Status: Orderedalbuterol 2.5 mg/3 mL (0.083%) inhalation solution 2.5 mg = 3 mL, NEB, every 4 hr, PRN as needed for wheezing, # 50 EA, 11 Refill(s), Pharmacy: [facility] #[id number], 163, cm, 04/19/22 12:01:00 EDT, Height/Length Dosing, 83, kg, 04/19/22 12:01:00 EDT, Weight Dosing Start Date: 04/20/22 Stop Date: 04/15/23 Status: OrderedAspirin Low Dose 81 mg oral delayed release tablet 81 mg = 1 tab, Oral, Daily, for 90 days Start Date: 03/03/22 Status: Orderedatorvastatin 80 mg oral tablet 80 mg = 1 tab, Oral, every evening Start Date: 03/03/22 Status: OrderedBD UF MINI PEN NEEDLE [id number] BD UF MINI PEN NEEDLE [id number], See Instructions, Use as directed up to 8 times daily Start Date: 04/15/22 Status: OrderedBD UF CARROLL PEN NEEDLE [id number] BD UF CARROLL PEN NEEDLE [id number] Start Date: 04/15/22 Status: Orderedcetirizine 10 mg oral tablet 10 mg = 1 tab, Oral, Daily, PRN as needed for allergy symptoms, as needed Start Date: 03/03/22 Status: Orderedclopidogrel 75 mg oral tablet 75 mg = 1 tab, Oral, Daily Start Date: 03/03/22 Status: Orderedcolchicine 0.6 mg oral tablet 0.6 mg = 1 tab, Oral, BID Start Date: 03/03/22 Status: OrderedEntresto 24 mg-26 mg oral tablet 1 tab, Oral, BID Start Date: 03/03/22 Status: Orderedferrous sulfate 325 mg (65 mg elemental iron) oral delayed release tablet 325 mg = 1 tab, Oral, BID Start Date: 03/03/22 Status: Orderedfluticasone 50 mcg/inh nasal spray 2 sprays, Nasal, Daily, # 180 sprays, 0 Refill(s), Pharmacy: [facility] #[id number], 163, cm, 03/21/2213:35:00 EDT, Height/Length Dosing, 84.55, kg, 03/21/22 13:35:00 EDT, Weight Dosing Start Date: 04/13/22 Status: Orderedfolic acid 1 mg oral tablet 1 mg = 1 tab, Oral, Daily Start Date: 03/03/22 Status: Orderedfurosemide 40 mg oral tablet 40 mg = 1 tab, Oral, Daily Start Date: 04/15/22 Status: Orderedgabapentin 600 mg oral tablet 2,400 mg = 4 tab, Oral, Daily, Take 1 tab twice daily and 2 tabs at night, # 120 tab, 2 Refill(s), Pharmacy: [facility] #[id number], 163, cm, 04/19/22 12:01:00 EDT, Height/Length Dosing, 83, kg, 04/19/2212:01:00 EDT, Weight Dosing Start Date: 06/24/22 Stop Date: 09/22/22 Status: OrderedHumaLOG KwikPen 100 units/mL injectable solution 10 units =, Subcutaneous, QID, Inject 10 units into the skin as directed Start Date: 03/03/22 Status: OrderedJardiance 10 mg oral tablet 1 tab, Oral, Daily, # 30 tab, 1 Refill(s), Pharmacy: [facility] #58, 163, cm, 04/19/22 12:01:00 EDT, Height/Length Dosing, 83, kg, 04/19/22 12:01:00 EDT, Weight Dosing Start Date: 05/10/22 Status: Orderedmagnesium oxide 400 mg (241.3 mg elemental magnesium) oral tablet 400 mg = 1 tab, Oral, BID Start Date: 04/15/22 Status: Orderedmeclizine 25 mg oral tablet 25 mg = 1 tab, Oral, Daily, PRN other (see comment), as needed Start Date: 04/15/22 Status: Orderedmethadone 10 mg oral tablet 100 mg =, Oral, Daily, 0 Refill(s) Start Date: 03/07/22 Status: OrderedMetoprolol Succinate ER 25 mg oral tablet, extended release 25 mg = 1 tab, Oral, Daily Start Date: 03/03/22 Status: OrderedNarcan 4 mg/0.1 mL nasal spray 1 spray, Nasal, As Directed, PRN other (see comment), instill one spray in one nostril as needed. Repeat if needed. Start Date: 03/03/22 Status: Orderednicotine 14 mg/24 hr transdermal film, extended release 1 patches, TD, Daily Start Date: 04/15/22 Status: Orderednitroglycerin 0.4 mg sublingual tablet 0.4 mg = 1 tab, SL, As Directed, PRN other (see comment), Place 1 tablet as needed by sublingual route for 30 days Start Date: 03/03/22 Status: Orderednystatin 100,000 units/g topical powder 1 leslie, Topical, BID, Apply to under side of breast s directed, # 15 g, 0 Refill(s), Pharmacy: [email or web address] #[id number], 163, cm, 04/19/22 12:01:00 EDT, Height/Length Dosing, 83, kg, 04/19/22 12:01:00 EDT, Weight Dosing Start Date: 06/02/22 Status: Orderedondansetron 4 mg oral tablet, disintegrating 4 mg = 1 tab, Oral, every 6 hr, PRN nausea/vomiting, # 30 tab, 1 Refill(s), Pharmacy: [facility] #[id number], 163, cm, 04/19/22 12:01:00 EDT, Height/Length Dosing, 83, kg, 04/19/22 12:01:00 EDT, Weight Dosing Start Date: 06/02/22 Status: OrderedONETOUCH SHANI VERIO ONETOUCH SHANI VERIO Start Date: 04/15/22 Status: OrderedONETOUCH DELICA PLUS 33G LANCT ONETOUCH DELICA PLUS 33G LANCT, See Instructions, Use one lancet four times a day as directed Start Date: 04/15/22 Status: OrderedONETOUCH VERIO FLEX METER ONETOUCH VERIO FLEX METER, See Instructions, use as directed for times a day as directed Start Date: 04/15/22 Status: OrderedONETOUCH VERIO TEST STRIP ONETOUCH VERIO TEST STRIP, See Instructions, test as directed four times a day Start Date: 04/15/22 Status: Orderedonetouch verio test strip onetouch verio test strip, See Instructions, test blood sugar 4 times a day, # 400 EA, 0 Refill(s), Pharmacy: [facility][id number], diagnoses code E11.65,, 163, cm, 04/19/22 12:01:00 EDT, Height/LengthDosing, 83, kg, 04/19/22 12:01:00 EDT, Weight Do... Start Date: 06/10/22 Status: Orderedpantoprazole 40 mg oral delayed release tablet 40 mg = 1 tab, Oral, BID, # 180 tab, 3 Refill(s), Pharmacy: [facility] #58, 163, cm, 03/21/22 13:35:00 EDT, Height/Length Dosing, 84.55, kg, 03/21/22 13:35:00 EDT, Weight Dosing Start Date: 03/24/22 Stop Date: 03/19/23 Status: OrderedPhenergan 25 mg oral tablet 25 mg = 1 tab, Oral, every 6 hr, PRN other (see comment), as needed for 30 days Start Date: 04/15/22 Status: Orderedpotassium chloride 10 mEq oral capsule, extended release 10 mEq = 1 cap, Oral, Daily, As directed with lab monitoring, do not crush or chew, with a full glass of water, with food, # 30 cap, 11 Refill(s), Pharmacy: [facility] #58, 163, cm, 03/21/22 13:35:00 EDT, Height/Length Dosing, 84.55, kg, 06/2... Start Date: 03/24/22 Stop Date: 03/19/23 Status: Orderedprochlorperazine 10 mg oral tablet 10 mg = 1 tab, Oral, TID, PRN nausea/vomiting Start Date: 04/15/22 Status: OrderedTresiba FlexTouch 200 units/mL subcutaneous solution See Instructions, INJECT 100 UNITS SUBCUTANEOUSLY EVERY DAY DIRECTED (TITRATE TO FASTING GLUCOMETER LESS THAN 120 AND GREATER THAN 100), # 30 mL, 11 Refill(s), Pharmacy: [facility] #[id number], 163, cm, 04/19/22 12:01:00 EDT, Height/Length Dosing, 83... Start Date: 06/21/22 Status: OrderedTresiba FlexTouch 200 units/mL subcutaneous solution 100 units =, Subcutaneous, Daily, DIRECTED (TITRATE TO FASTING GLUCOMETER LESS THAN 120 AND GREATER THAN 100., # 30 mL, 0 Refill(s), Pharmacy: [facility] #58, 163, cm, 04/19/22 12:01:00 EDT, Height/Length Dosing, 83, kg, 04/19/22 12:01:00 EDT... Start Date: 06/21/22 Status: OrderedVictoza 18 mg/3 mL subcutaneous solution 1.8 mg =, Subcutaneous, Daily, Titrate up as tolerated to 1.2 mg daily, then maintainance at 1.8 mg daily Start Date: 03/03/22 Status: Ordered Problem List Condition Effective Dates Status Health Status Informant Acute Exacerbation of Active asthma(Confirmed) Acute non-ST segment elevation 08/30/21 Active myocardial infarction(Confirmed) Allergic rhinitis(Confirmed) Active Anemia(Confirmed) 09/10/21 Active Asthma(Confirmed) Active Attention deficit hyperactivity Active disorder, combined type(Confirmed) Candidal vulvovaginitis(Confirmed) 10/05/18 Active Cardiomyopathy(Confirmed) Active Chronic pain syndrome(Confirmed) Active Heart failure with reduced ejection 09/02/21 Active fraction(Confirmed) Chronic tophaceous gout(Confirmed) Active Congestive heart failure(Confirmed) 09/17/21 Active Depressive disorder(Confirmed) Active Dermatographic urticaria(Confirmed) Active Diabetic peripheral 05/29/18 Active neuropathy(Confirmed) Dupuytren's disease of palm(Confirmed) 11/02/18 Active Enterocolitis(Confirmed) 09/27/21 Active Epigastric pain(Confirmed) Active Essential hypertension(Confirmed) Active Gastritis(Confirmed) Active Gastroduodenitis(Confirmed) Active Gastroesophageal reflux 01/25/19 Active disease(Confirmed) Hyperlipidemia(Confirmed) Active Hypertensive disorder(Confirmed) Active Hypokalemia(Confirmed) Active Neurodermatitis(Confirmed) 05/12/20 Active Injury of shoulder region(Confirmed) Active Iron deficiency anemia(Confirmed) 09/17/21 Active Cardiomyopathy(Confirmed) 09/27/21 Active Melena(Confirmed) Active Mixed anxiety and depressive 11/02/21 Active disorder(Confirmed) Nausea and vomiting(Confirmed) 06/09/20 Active Pain in left leg(Confirmed) Active Ingrowing nail with 10/05/18 Active infection(Confirmed) Persistent cough(Confirmed) 12/27/19 Active Plantar fascial Active fibromatosis(Confirmed) Plantar fasciitis(Confirmed) 07/11/19 Active 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 Posttraumatic stress Active disorder(Confirmed) Right hemiparesis(Confirmed) 07/22/21 Active Sciatica(Confirmed) 10/05/18 Active Seasonal allergic rhinitis(Confirmed) 01/25/19 Active Shoulder joint pain(Confirmed) 06/04/21 Active Therapeutic drug monitoring 09/10/21 Active assay(Confirmed) Tobacco dependence syndrome(Confirmed) 09/10/21 Active Diabetes mellitus, type 2(Confirmed) Active Type II diabetes mellitus 08/06/18 Active uncontrolled(Confirmed) Vertigo(Confirmed) 01/25/19 Active Procedures Procedure Date Related Diagnosis Body Site Status Cardiac catheterization1 09/01/21 Com pleted Colonoscopy 10/25/15 Completed EGD - Esophagogastroduodenoscopy2 10/25/15 Completed Appendectomy Completed Bone graft3 Completed Cardiac catheterization4 Com pleted section5 Completed Knee joint operation6, 7 Com pleted shoulder surgery8 Completed Total hysterectomy9 Complete d 1with stent at distal RCA lesion 4 stents placed.2gastritis with gastric ulcers3 from left [id number] In [id number] x46x2 in January for compartment syndrome and [id number] was mid calf, between knee and ankle where the wounds are8x4, ending with a full [id number] subsequent BSO, question of cervix Results Laboratory List Name Date Troponin-I 06/26/22 .Manual Differential (NCTY) 06/26/22 CBC w/ Diff 06/26/22 Comprehensive Metabolic Panel 06/26/22 NT- Pro BNP 06/26/22 PT/ INR 06/26/22 PTT 06/26/22 SARS-CoV-2 (COVID-19) RNA (ID Now) 06/26/22 Troponin-I 06/26/22 Most recent to oldest [Reference Range]: 1 2 WBC [5.0-10.0 x10^3/mcL] 9.6 x10^3/mcL (06/26/22 7:15 PM) RBC [4.1-5.3 x10^6/mcL] 5.5 x10^6/mcL *HI* (06/26/22 7:15 PM) Segs Man [40-75 %] 41 % (06/26/22 7:15 PM) Lymph Man [20-50 %] 41 % (06/26/22 7:15 PM) [place] Man 6 % *NA* (06/26/22 7:15 PM) Eos Man 11 % *NA* (06/26/22 7:15 PM) Prothrombin Time [9.0-11.0 seconds] 9.9 seconds (06/26/22 7:15 PM) INR 1.0 *NA* (06/26/22 7:15 PM) BUN [7-18 mg/dL] 21 mg/dL *HI* (06/26/22 7:15 PM) Glucose Level [74-106 mg/dL] 120 mg/dL *HI* (06/26/22 7:15 PM) Potassium Level [3.5-5.1 mmol/L] 3.7 mmol/L (06/26/22 7:15 PM) MCV [80.0-103.0 fL] 88.0 fL (06/26/22 7:15 PM) RBC Morph Normal (06/26/22 7:15 PM) AST [15-37 unit/L] 15 unit/L (06/26/22 7:15 PM) ALT [16-63 unit/L] 29 unit/L (06/26/22 7:15 PM) MCHC [31.0-35.0 g/dL] 33.8 g/dL (06/26/22 7:15 PM) Troponin-I [0.0-51.4 pg/mL] 9.8 pg/mL 9.2 pg/mL (06/26/22 9:58 PM) (06/26/22 7:15 PM) Sodium Level [136-145 mmol/L] 142 mmol/L (06/26/22 7:15 PM) Hct [37.0-47.0 %] 48.2 % *HI* (06/26/22 7:15 PM) Partial Thromboplastin Time [22-35 seconds] 25 seconds (06/26/22 7:15 PM) Calcium Level [8.5-10.1 mg/dL] 8.7 mg/dL (06/26/22 7:15 PM) Albumin Level [3.4-5.0 g/dL] 3.8 g/dL (06/26/22 7:15 PM) Protein Total [6.4-8.2 g/dL] 8.1 g/dL (06/26/22 7:15 PM) MCH [26.0-32.0 pg] 29.7 pg (06/26/22:15 PM) Bilirubin Total [0.2-1.0 mg/dL] 0.2 mg/dL (06/26/22:15 PM) Hgb [12.0-16.0 g/dL] 16.3 g/dL *HI* (06/26/22 7:15 PM) Alk Phos [46-146 unit/L] 181 unit/L *HI* (06/26/22 7:15 PM) Band Man [0-5 %] 0 % (06/26/22:15 PM) Platelets [130-450 x10^3/mcL] 403 x10^3/mcL (06/26/22 7:15 PM) CO2 [21-32 mmol/L] 29 mmol/L (06/26/22 7:15 PM) eGFR Non-AA [>=60] 91 (06/26/22 7:15 PM) eGFR AA [>=60] 91 (06/26/22 7:15 PM) NT-proBNP [0-125 pg/mL] 392 pg/mL *HI* (06/26/22 7:15 PM) Chloride Level [98-107 mmol/L] 104 mmol/L (06/26/22 7:15 PM) RDW-CV [11.7-17.0 %] 15.4 % (06/26/22 7:15 PM) Abs Neut Man 3.9 x10^3/mcL *NA* (9/25/22 7:15 PM) Creatinine Level [0.55-1.02 mg/dL] 0.81 mg/dL (06/26/22 7:15 PM) SARS-CoV-2 (COVID-19) RNA (ID Now) [Not Not Detected Detected] (06/26/22 7:15 PM) Anion Gap [8-16 mmol/L] 9 mmol/L (06/26/22 7:15 PM) Baso Man [0-1 %] 1 % (06/26/22 7:15 PM) Vital Signs Most recent to oldest 1 2 3 [Reference Range]: Temperature Temporal Artery 36.3 Deg C 35.8 Deg C [36-38 Deg C] (06/26/22 7:42 PM) *LOW* (06/26/22 6:11 PM) Peripheral Pulse Rate 94 bpm 73 bpm 74 bpm [60-100 bpm] (06/26/22 11:18 PM) (06/26/22 10:15 PM) (06/26/22 1 0:00 PM) Heart Rate Monitored [60-100 92 bpm 82 bpm 79 bpm bpm] (06/26/22 11:18 PM) (06/26/22 10:15 PM) (06/26/22 1 0:00 PM) Respiratory Rate [12-24 21 br/min 17 br/min 20 br/mi n br/min] (06/26/22 11:18 PM) (06/26/22 10:15 PM) (06/26/22 1 0:00 PM) Blood Pressure [90-140/60-90 112/64 mmHg 110/65 mmHg 105 /65 mmHg mmHg] (06/26/22 11:18 PM) (06/26/22 10:15 PM) (06/26/22 0:00 PM) Weight Dosing 83.91 kg (06/26/22 6:36 PM) Weight Estimated 83.91 kg (06/26/22 6:11 PM) Height/Length Dosing 162.560 cm (06/26/22 6:36 PM) Height/Length Estimated 162.560 cm (06/26/22 6:11 PM) Social History Social History Type Response Tobacco Current everyday tobacco use r Tobacco Use:. 1/2 PPD per day. Sex Female Hospital Discharge Instructions Patient Dutlioufz38/25/2022 21:56:18Nonspecific Chest Pain, AdultNonspecific Chest Pain, Adult Chest pain is an uncomfortable, tight, or painful feeling in the chest. The pain can feel like a crushing, aching, or squeezing pressure. A person can feel a burning or tingling sensation. Chest pain can also be felt in your back, neck, jaw, shoulder, or arm. This pain can be worse when you move, sneeze, or take a deep breath. Chest pain can be caused by a condition that is life-threatening. This must be treated right away. It can also be caused by something that is not life- threatening. If you have chest pain, it can be hard to know the difference, so it is important to get help right away to make sure that you do not havea serious condition. Some life-threatening causes of chest pain include: ??? Heart attack. ??? A tear in the body's main blood vessel (aortic dissection). ??? Inflammation around your heart (pericarditis). ??? A problem in the lungs, such as a blood clot (pulmonary embolism) or a collapsed lung (pneumothorax). Some non life-threatening causes of chest pain include: ??? Heartburn. ??? Anxiety or stress. ??? Damage to the bones, muscles, and cartilage that make up your chest wall. ??? Pneumonia or bronchitis. ??? Shingles infection (varicella-zoster virus). Your chest pain may come and go. It may also be constant. Your health care provider will do tests and other studies to find the cause of your pain. Treatment will depend on the cause of your chest pain. Follow these instructions at home: Medicines ??? Take [id number] and prescription medicines only as told by your health care provider. ??? If you were prescribed an antibiotic medicine, take it as told by your health care provider. Do not stop taking the antibiotic even if you start to feel better. Activity ??? Avoid any activities that cause chest pain. ??? Do not lift anything that is heavier than 10 lb (4.5 kg), or the limit that you are told, until your health care provider says that it is safe. ??? Rest as directed by your health care provider. ??? Return to your normal activities only as told by your health care provider. Ask your health careprovider what activities are safe for you. Lifestyle ??? Do not use any products that contain nicotine or tobacco, such as cigarettes, e-cigarettes, and chewing tobacco. If you need help quitting, ask your health care provider. ??? Do not drink alcohol. ??? Make healthy lifestyle changes as recommended. These may include: ??? Getting regular exercise. Ask your health care provider to suggest some exercises that are safe for you. ??? Eating a heart-healthy diet. This includes plenty of fresh fruits and vegetables, whole grains, low-fat (lean) protein, and low-fat dairy products. A dietitian can help you find healthy eating options. ??? Maintaining a healthy weight. ??? Managing any other health conditions you may have, such as high blood pressure (hypertension) ordiabetes. ??? Reducing stress, such as with yoga or relaxation techniques. General instructions ??? Pay attention to any changes in your symptoms. ??? It is up to you to get the results of any tests that were done. Ask your health care provider, or the department that is doing the tests, when your results will be ready. ??? Keep all follow-up visits as told by your health care provider. This is important. ??? You may be asked to go for further testing if your chest pain does not go away. Contact a health care provider if: ??? Your chest pain does not go away. ??? You feel depressed. ??? You have a fever. ??? You notice changes in your symptoms or develop new symptoms. Get help right away if: ??? Your chest pain gets worse. ??? You have a cough that gets worse, or you cough up blood. ??? You have severe pain in your abdomen. ??? You faint. ??? You have sudden, unexplained chest discomfort. ??? You have sudden, unexplained discomfort in your arms, back, neck, or jaw. ??? You have shortness of breath at any time. ??? You suddenly start to sweat, or your skin gets clammy. ??? You feel nausea or you vomit. ??? You suddenly feel lightheaded or dizzy. ??? You have severe weakness, or unexplained weakness or fatigue. ??? Your heart begins to beat quickly, or it feels like it is skipping beats. These symptoms may represent a serious problem that is an emergency. Do not wait to see if the symptoms will go away. Get medical help right away. Call your local emergency services (911 in the [place] Do not drive yourself to the hospital. Summary ??? Chest pain can be caused by a condition that is serious and requires urgent treatment. It may also be caused by something that is not life-threatening. ??? Your health care provider may do lab tests and other studies to find the cause of your pain. ??? Follow your health care provider's instructions on taking medicines, making lifestyle changes, and getting emergency treatment if symptoms become worse. ??? Keep all follow-up visits as told by your health care provider. This includes visits for any further testing if your chest pain does not go away. This information is not intended to replace advice given to you by your health care provider. Make sure you discuss any questions you have with your health care provider. Document Revised: 12/02/2021 Document Reviewed: 12/02/2021 [employer] Patient Education ?? 2021 [employer] 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
--- OUTSIDE RECORDS SUMMARY | 2022-08-14 18:33 | XMS_ITS | Continuity of Care Document ---
:1975 Author Organization [facility] Address [address] [place] [address] Care Team Providers Name Role Phone Valentin Parekh Primary Care Physician Encounter [facility] Date(s): 06/29/22 - 06/29/22 [facility] [address] [place] [address] Discharge Disposition: Home or Self Care Attending Physician: Valentin Parekh MD Admitting Physician: Valentin Parekh MD Referring Physician: Valentin Parekh MD Allergies, Adverse Reactions, Alerts Substance Reaction Severity Status BLEACH (SODIUM HYPOCHLORITE) Unknown Act mateo MOLD Unknown Active MUSHROOM Unknown Active ANIMAL DANDER Unknown Active HOUSE DUST Unknown Active POLLEN EXTRACTS Unknown Active penicillins Unknown Active traZODone Unknown Active traMADol Unknown Active Perfume Unknown Active Assessment and Plan Future AppointmentsFuture Scheduled TestsLaboratoryCBC w/ Diff 04/28/22CBC w/ Diff 06/24/22Comprehensive Metabolic Panel 06/24/22Comprehensive Metabolic Panel 03/24/22Lipid Panel [...] hr, # 10 tab, 0 Refill(s), Pharmacy: [facility]58, 163, cm, 04/19/22 12:01:00 EDT, Height/Length [...] wheezing, # 50 EA, 11 Refill(s), Pharmacy: [facility]58, 163, cm, 04/19/22 12:01:00 EDT, Height/Length [...] 03/03/22 Status: OrderedBD UF MINI PEN NEEDLE [id number] BD UF MINI PEN NEEDLE [id number], See Instructions, Use as directed up to 8 times daily Start Date: 04/15/22 Status: OrderedBD UF CARROLL PEN NEEDLE [id number] BD UF CARROLL PEN NEEDLE [id number] Start Date: 04/15/22 Status: Orderedcetirizine 10 mg [...] Daily, # 180 sprays, 0 Refill(s), Pharmacy: [facility]58, 163, cm, 03/21/2213:35:00 EDT, Height/Length Dosing, [...] night, # 120 tab, 2 Refill(s), Pharmacy: [facility], 163, cm, 04/19/22 12:01:00 EDT, Height/Length Dosing, 83, kg, 04/19/2212:01:00 EDT, Weight Dosing Start Date: 06/24/22 Stop Date: 09/22/22 Status: OrderedHumaLOG KwikPen 100 units/mL injectable solution 10 units =, Subcutaneous, QID, Inject 10 units into the skin as directed Start Date: 03/03/22 Status: OrderedJardiance 10 mg oral tablet 1 tab, Oral, Daily, # 30 tab, 1 Refill(s), Pharmacy: [facility]58, 163, cm, 04/19/22 12:01:00 EDT, Height/Length [...] directed, # 15 g, 0 Refill(s), Pharmacy: [email or web address] #58, 163, cm, 04/19/22 12:01:00 EDT, Height/Length Dosing, 83, kg, 04/19/22 12:01:00 EDT, Weight Dosing Start Date: 06/02/22 Status: Orderedondansetron 4 mg oral tablet, disintegrating 4 mg = 1 tab, Oral, every 6 hr, PRN nausea/vomiting, # 30 tab, 1 Refill(s), Pharmacy: [facility]58, 163, cm, 04/19/22 12:01:00 EDT, Height/Length [...] day, # 400 EA, 0 Refill(s), Pharmacy: [facility]58, diagnoses code E11.65,, 163, cm, 04/19/22 12:01:00 EDT, Height/LengthDosing, 83, kg, 04/19/22 12:01:00 EDT, Weight Do... Start Date: 06/10/22 Status: Orderedpantoprazole 40 mg oral delayed release tablet 40 mg = 1 tab, Oral, BID, # 180 tab, 3 Refill(s), Pharmacy: [facility] #58, 163, cm, 03/21/22 13:35:00 EDT, Height/Length [...] food, # 30 cap, 11 Refill(s), Pharmacy: [facility] #58, 163, cm, 03/21/22 13:35:00 EDT, Height/Length Dosing, 84.55, kg, /2... Start Date: 03/24/22 Stop Date: 03/19/23 Status: Orderedprochlorperazine 10 mg oral tablet 10 mg = 1 tab, Oral, TID, PRN nausea/vomiting Start Date: 04/15/22 Status: OrderedTresiba FlexTouch 200 units/mL subcutaneous solution See Instructions, INJECT 100 UNITS SUBCUTANEOUSLY EVERY DAY DIRECTED (TITRATE TO FASTING GLUCOMETER LESS THAN 120 AND GREATER THAN 100), # 30 mL, 11 Refill(s), Pharmacy: [facility] #58, 163, cm, 04/19/22 12:01:00 EDT, Height/Length Dosing, 83... Start Date: 06/21/22 Status: OrderedTresiba FlexTouch 200 units/mL subcutaneous solution 100 units =, Subcutaneous, Daily, DIRECTED (TITRATE TO FASTING GLUCOMETER LESS THAN 120 AND GREATER THAN 100., # 30 mL, 0 Refill(s), Pharmacy: [facility] #58, 163, cm, 04/19/22 12:01:00 EDT, Height/Length [...] stents placed.2gastritis with gastric ulcers3 from left [id number] In [id number] x46x2 in January for compartment syndrome and atevkrnz1sbmhsu was mid calf, between knee and ankle where the wounds are8x4, ending with a full [id number] subsequent BSO, question of cervix Results Laboratory List Name Date Automated Diff 06/29/22 CBC w/ Diff 06/29/22 Comprehensive Metabolic Panel 06/29/22 Hemoglobin A1c 06/29/22 Lipid Panel 06/29/22 Microalbumin/Creatinine Ratio Urine 06/29/22 Most recent to oldest [Reference Range]: 1 WBC [5.0-10.0 x10^3/mcL] 10.2 x10^3/mcL *HI* (06/29/22 10:33 AM) RBC [4.1-5.3 x10^6/mcL] 5.4 x10^6/mcL *HI* (06/29/22 10:33 AM) Neutro Auto [40.0-75.0 %] 49.7 % (06/29/22 10: AM) Lymph Auto [20.0-50.0 %] 30.0 % (06/29/22: AM) [place] Auto [2.0-15.0 %] 11.2 % (06/29/22: AM) Basophil Auto [0.0-1.0 %] 0.5 % (06/29/22: AM) BUN [7-18 mg/dL] 15 mg/dL (06/29/22: AM) Cholesterol Total [50-200 mg/dL] 140 mg/dL (06/29/22: AM) LDL [0-130 mg/dL] 55 mg/dL (06/29/22: AM) Glucose Level [74-106 mg/dL] 160 mg/dL *HI* (06/29/22 10: AM) Potassium Level [3.5-5.1 mmol/L] 3.8 mmol/L (06/29/22: AM) MCV [80.0-103.0 fL] 89.3 fL (06/29/22: AM) HDL [40-60 mg/dL] 20 mg/dL *LOW* (06/29/22: AM) AST [15-37 unit/L] 18 unit/L (06/29/22: AM) ALT [16-63 unit/L] 33 unit/L (06/29/22 10: AM) MCHC [31.0-35.0 g/dL] 33.4 g/dL (06/29/22: AM) Sodium Level [136-145 mmol/L] 138 mmol/L (06/29/22: AM) Hct [37.0-47.0 %] 48.5 % *HI* (06/29/22: AM) Triglycerides [0-150 mg/dL] 325 mg/dL *HI* (9/28/22 10:33 AM) Calcium Level [8.5-10.1 mg/dL] 9.2 mg/dL (06/29/22 10: AM) Albumin Level [3.4-5.0 g/dL] 3.7 g/dL (06/29/22 10: AM) Protein Total [6.4-8.2 g/dL] 8.1 g/dL (06/29/22 10: AM) MCH [26.0-32.0 pg] 29.8 pg (06/29/22 10: AM) Neutro Absolute 5.1 x10^3/mcL *NA* (06/29/22 10: AM) Bilirubin Total [0.2-1.0 mg/dL] 0.3 mg/dL (06/29/22 10: AM) Hgb [12.0-16.0 g/dL] 16.2 g/dL *HI* (06/29/22 10: AM) Alk Phos [46-146 unit/L] 158 unit/L *HI* (06/29/22: AM) Platelets [130-450 x10^3/mcL] 388 x10^3/mcL (06/29/22 10:33 AM) CO2 [21-32 mmol/L] 28 mmol/L (06/29/22 10: AM) eGFR Non-AA [>=60] 81 (06/29/22 10:33 AM) eGFR AA [>=60] 81 (06/29/22 10:33 AM) U Creatinine [30-125 mg/dL] 106 mg/dL (06/29/22 10: AM) Hemoglobin A1c [4.0-6.0 %] 6.0 % (06/29/22 10:33 AM) Chloride Level [98-107 mmol/L] 101 mmol/L (06/29/22 10: AM) RDW-CV [11.7-17.0 %] 15.5 % (06/29/22 10: AM) U Microalb/Creat [0.0-30.0 mcg/mg] 57.5 mcg/mg *HI* (06/29/22 10: AM) U Microalb [0.0-20.0] 61.0 *HI* (06/29/22 10:33 AM) Imm Gran Auto [0.0-0.9 %] 0.3 % (06/29/22 10:33 AM) Creatinine Level [0.55-1.02 mg/dL] 0.89 mg/dL (06/29/22 10:33 AM) Anion Gap [8-16 mmol/L] 9 mmol/L (06/29/22 10:33 AM) Eos, Auto [1.0-6.0 %] 8.3 % *HI* (06/29/22 10:33 AM) Social History Social History Type Response Tobacco Current everyday tobacco use r Tobacco Use:. 1/2 PPD per day. Sex Female Patient Care team information PersonnelName: Valentin Parekh MD Address: Address: [facility] [id number] [place] [address]
--- OUTSIDE RECORDS SUMMARY | 2022-08-14 18:34 | XMS_ITS | Encounter Summary ---
:1975 [place] [address] Care Team Providers Name Role Phone Lora Parekh MD Primary Care Provider Reason for Visit Auth/Cert Specialty Diagnoses / Procedures Referred By Contact Refer red To Contact Diagnoses Ischemic cardiomyopathy Coronary artery disease involving habematolel coronary artery of habematolel heart without angina pectoris [I25.10] Tameka Neal [facility] Procedures PRG CATH PLMT CORONARY ART W/INJ FOR ANGIO W/R HEART CATH IMG S&I PRG CATH PLID LEFT HEART CATH & ARTS W/INJ & ANGIO IMG S&I CARDIAC CATHETERIZATION CORONARY ANGIOGRAPHY; W RHC CORONARY ANGIOGRAPHY; W LHC,[place] [address] Referral ID Status Reason Start Date Expiration Date Visits Requ ested Visits Authorized [id number] 1 1 Encounter Details Date Type Department Care Team Description 05/19/2022 Surgery Geophysical Manager Khalida Shane I , CARDIAC CATHETERIZATION [facility] [place] [address] CARDIOLOGY [phone] [place], [place] [address] (Wo rk) Social History Tobacco Use Types Packs/Day Years Used Date Smoking Tobacco: Every Day Cigarettes 0.5 Smokeless Tobacco: Never Alcohol Use Standard Drinks/Week Comments Yes 0 (1 standard drink = 0.6 oz pure alcoho l) occasional Sex Assigned at Date Recorded Not on file documented as of this encounter Last Filed Vital Signs Vital Sign Reading Time Taken Comments Blood Pressure 95/62 05/19/2022 9:45 AM EDT Pulse 96 05/19/2022 9:45 AM EDT Temperature 36 ??C (96.8 ??F) 05/19/2022 5:00 AM EDT Respiratory Rate 16 05/19/2022 9:45 AM EDT Oxygen Saturation 95% 05/19/2022 7:31 AM EDT Inhaled Oxygen Concentration - - Weight 85.7 kg (188 lb 15 oz) 05/19/2022 5:00 AM EDT Height 162.6 cm (5' 4) 05/18/2022 3:48 AM EDT Body Mass Index 31.86 05/18/2022 3:48 AM EDT documented in this encounter Discharge Summaries Julieta Saunders PA - 05/23/2022 11:39 AM EDT Images from the original note were not included. Discharge Summary Patient Name: Aracelis Berkowizt Patient Age: 46 y.o. Language: Uruguayan Race: White Ethnicity: Not nor Admit date: 05/17/2022 Discharge date and time: 05/23/2022. 11:40 AM Attending Physician: Tameka Chu MD, Hernán Mariscal MD Discharge Physician: Hernán Mariscal MD Follow-up Recommendations for Providers: Aracelis Berkowitz is a 46 y.o. female admitted following planned staged PCI with stent placement to LAD, D1and in-stent restenosis of distal RCA for heart failure medication optimization. 1. ASCVD s/p PCI to LAD/D1 and distal RCA ISR: -DAPT with aspirin and Plavix, consider longer term therapy if tolerating and without major bleeding -Metoprolol succinate 25 mg daily -Atorvastatin 80 mg daily 2. Ischemic CM, acute on chronic HFrEF -TTE on 05/13 with LVEF 31%. LifeVest at discharge. Repeat TTE in 3 months and EP eval if LVEF stilldecreased. -GDMT: metoprolol succinate 25mg daily, empagliflozin 10 mg daily -GDMT limited by hypotension. Consider resuming low dose Entresto if tolerates. -Spironolactone stopped 2/2 hyperkalemia -Diuretic: Lasix 40 mg daily 3. Possible skin abscess/infection: -Right radial cath site -Duplex right radial: negative for abscess -Keflex 500 mg four times daily for 5 days (started 05/22). 4. RUQ US findings: -4 mm pancreatic duct is upper limits of normal. This not visualized pancreatic head. Further evaluation with pancreatic mass MRI is suggested to exclude the possibility of an occult lesion. This neednot be performed on an inpatient basis. Unexpected finding. -Please follow up with MRI 5. T2DM -See dosing changes below per our diabetes management team Inpatient Provider Contact Information: MD Hernán Laughlin MD Janette Stender, DAMIÁN Che, DAMIÁN Saunders, LILY Cardiovascular Medicine [phone] Discharge Diagnoses (Hospital Problems) and Secondary Diagnoses (Chronic Problems): Active Hospital Problems Diagnosis ??? Ischemic cardiomyopathy ??? ASCVD (arteriosclerotic cardiovascular disease) Resolved Hospital Problems No resolved problems to display. Active Non-Hospital Problems Diagnosis ??? Myositis ??? NSTEMI (non-ST elevated myocardial infarction) ??? Dislocation of left shoulder joint, chronic, recurrent, with multiple surgeries. Operations/Major Procedures: Operations: [facility] 05/17/22 Coronary Angiography: Dominance: Right Left Main There was mild diffuse (<=25% stenosis) disease of the entire vessel segment of the left main artery. Left Anterior Descending There was a 70% eccentric long segmental stenosis of the proximal segment of the left anterior descending artery (LAD). The LAD was moderate in size. There was a 95% calcified single discrete stenosis of the ostial segment of the first diagonal branch (Diagonal 1) of the LAD. The Diagonal 1 was moderate in size. Left Circumflex There was mild diffuse (<=25% stenosis) disease of the entire vessel segment of the left circumflex artery (LCX). Right Coronary Artery There was a 70% single discrete stenosis of the distal segment of the right coronary artery (RCA). The RCA was moderate in size. Intravascular Imaging/Physiology: Optical Coherence Tomography (OCT) was performed in the distal RCA using a 6 SL Fr Ikari Right 1.5 guiding catheter and a Gentuity. Imaging was successful. Image quality was good. The distal RCA showed severe diffuse atherosclerotic plaque. Indication for Intervention: Coronary intervention was indicated for treatment of stable angina. The priority for the procedure was Elective. The NCDR indication for the procedure was Stable angina. LVEF within one week was 31%. Syntax Score was Low. Staged PCI was performed for multivessel disease. Intervention Summary: Left Anterior Descending Artery Proximal 70% Stent insertion was performed on the 70% stenosis in the proximal segment of the LAD. This was a de balbir lesion. According to the ACC/AHA classification system, this lesion was a type C moderate risk lesion. Primary prevention of restenosis was the indication for stent insertion. This was the culprit lesion. A guidewire was placed across this lesion. Vessel flow pre intervention was GLO 3. Lesion length was 20mm. The lesion involves a bifurcation with the D1. This bifurcation lesion was treated with a two stent, crush or mini-crush technique and a final kissing balloon post-dilation. Stent insertion was accomplished through a 6 Fr. EBU 3.5 guide. The lesion was predilated with a 3.00mm NC EUPHORA 15 MM balloon with a maximum inflation pressure of 12 atmospheres. A premounted 2.75 x 30 mm [place] (EMILEE) was deployed. Following stent deployment, the lesion was dilated using a 3.50mm NC EUPHORA 12 MM balloon with a maximum inflation pressure of 12 atmospheres. The final outcome was defined as successful. There was no residual stenosis following this intervention. The final GLO flow was 3. First Diagonal Branch of the LAD Ostial 95% Stent insertion was performed on the 95% stenosis in the ostial segment of the Diagonal 1. This was a de balbir lesion. This lesion was designated a type C moderate risk lesion based on ACC/AHA classification system. Primary prevention of restenosis was the indication for stent insertion. This was the culprit lesion. A guidewire was placed across this lesion. Vessel flow pre intervention was GLO 3. Lesion length was 20mm. The lesion involves a bifurcation with the LAD. This bifurcation lesion was treated with a two stent, crush or mini-crush technique and a final kissing balloon post-dilation. Stent insertion was accomplished through a 6 Fr. EBU 3.5 guide. The lesion was predilated with a 2.50mm EUPHORA 12 MM balloon with a maximum inflation pressure of 12 atmospheres. A premounted 2.00 x 22 mm S[place] (EMILEE) was deployed. Following stent deployment, the lesion was dilated using a 2.75mm NC EUPHORA 12 MM balloon with a maximum inflation pressure of 8 atmospheres. The final outcome was defined as successful. There was no residual stenosis following this intervention. The final GLO flow was 3. Right Coronary Artery Distal 70% Stent insertion was performed on the 70% stenosis in the distal segment of the RCA. This was a drug eluting in-stent restenosis lesion. According to the ACC/AHA classification system, this lesion was a type B1 moderate risk lesion. Management of recurrent restenosis was the indication for stent insertion. This was the culprit lesion. A guidewire was placed across this lesion. Vessel flow pre intervention was GLO 3. Lesion length was 10mm. This was a previously treated lesion on 09/03/2021. Stent insertion was accomplished through a 6 Fr. Ikari Right 1.5 guide. A premounted 3.00 x 12 mm S[place] (EMILEE) was deployed with a maximum inflation pressure of 14 atmospheres. Following stent deployment, the lesion was dilated using a 3.00mm balloon with a maximum inflation pressure of 20 atmospheres. The final outcome was defined as successful. There was no residual stenosis following this intervention. The final GLO flow was 3. Vascular Access: Vascular Access Management: Mechanical Compression of the right radial artery access site was performed. Dual Antiplatelet (DAPT) Recommendations: Drug eluting stent (EMILEE) inserted for stable ischemic heart disease (SIHD). Patient was on chronic DAPT on arrival to the label machine operator. These recommendations are made at the time of the intervention. Patient and provider preferences or a changing clinical situation may require modification of this regimen. Consult [facility] Interventional Cardiology for questions. This patient has a high DAPT score and may benefit from prolonged (12-30 months) dual antiplatelet therapy if the patient has completed 12 months of DAPT without having a major bleeding or ischemic event and the patient is NOT on chronic anticoagulation. This should be used for guidance in the overall conversation about prolonged dual antiplatelet therapy and not as a recommendation for or against any medical treatment. Consult http://tools.acc.org/DAPTriskapp/#!/content/calculator/ or [facility] Interventional Cardiology for questions Conclusions: * Two vessel coronary artery disease (LAD and RCA) * Successful stent insertion of the ostial D1 lesion * Successful stent insertion of the proximal LAD lesion * Successful stent insertion of the distal RCA lesion * See Dual Antiplatelet (DAPT) Recommendations above Complications/Events: The patient had no complications during these procedures. RHC: 05/19/22 Hemodynamics: Right Heart Pressures Resting: Syst Diast EDP a v m RA 7 10 6 RV 32 7 PA 31 7 22 PCW 12 16 12 Hemodynamic Profile: Profile 1 CO 5.18 CI 2.70 TPR 340 PVR 154 Technique Estimated Jefe Oximetry: Location %Sat Location %Sat Main Pulmonary Artery 66.0 Vascular Access: Vascular Access Management: Manual Compression of the right median antecubital vein access site was performed. Other Studies: RUE Duplex 05/23/22 Interpretation: Right: Patent distal radial artery with no evidence of pseudoaneurysm or arteriovenous fistula in the distal forearm. Abdomen US 05/18/22 IMPRESSION 1. Homogeneous hepatic parenchymal echotexture without mass. No biliary dilation. Normal gallbladder. 2. 4 mm pancreatic duct is upper limits of normal. This not visualized pancreatic head. Further evaluation with pancreatic mass MRI is suggested to exclude the possibility of an occult lesion. This need not be performed on an inpatient basis. Unexpected finding. 3. Suspect duplicated nondilated right renal collecting system. Right kidney measures 12.3 cm in length. 4. Left kidney measures 10.1 cm in length without collecting system dilation. No renal cysts. Bladder collapsed. History of Presentation: Per admission H+P Aracelis Berkowitz is a 46 y.o. female with PMH of ASCVD s/p PCI to RCA in 09/2021 ( with residual long tubular mid LAD lesion, planned for staged PCI on 05/17/2022), Ischemic cardiomyopathy ( last EF 31% on 05/13/2022), DM2, microcytic anemia, LLE trauma requiring fasciotomy on 02/23/2022, Syncope who presentedto the hospital for a staged PCI of the LAD. ?? Pt reports intermittent episodes of chest pain especially with exertion. She also reports decrease exercise tolerance. She underwent staged PCI to LAD/D1 with bifurcation stent along with RCA stent forin-stent restenosis. Pt tolerated the procedure well and now admitted to cardiology for monitor and EP evaluation of ACID. Vitals are stable. Labs from 8/12/22 stable. EKG known qwaves in anteroseptal leads. ?? At the time of my evaluation, she reports lower back pain. Denies chest pain, shortness of breath, orthopnea or PND. No fever, chills or sick contacts. Still smokes 1/2 PPD, lives with 3 kids at the [place]. ?? Hospital Course: #ASCVD, staged PCI to LAD/D1 and distal RCA #Ischemic CM, acute on chronic HFrEF The patient was admitted following her planned staged coronary intervention (PCI to LAD/D1 bifurcation and distal RCA) for heart failure medication optimization. Access during C was via right radial artery and this site was clean dry and intact. Continued on aspirin and started on Plavix. The patient reported a dry weight that seemed incompatible with her clinical picture. She underwent a right heart cath that showed wedge of 12 and CI of 2.7. This indicated that her dry weights should be 188-190 pounds (and not lower). Prior to admission she was using torsemide 40 mg daily or twice daily, and this high dose was not felt necessary needed given her C numbers. Reduced to furosemide 40 mg once daily. The patient was found to have SBP 80-90s. Her metoprolol XL dosing was reduced to 25 mg daily. Spironolactone 12.5 was started then discontinued for potassium that [place] to 5.5. She continues on Jardiance 10 mg daily. Entresto stopped several months prior to admission due to low blood pressures. As she was revascularized on 05/17, she will need an echo in 3 months to assess her EF for ICD consideration. LifeVest for discharge. She will be following up with the heart failure team here at [facility] within the next 2 weeks. The patient was evaluated by the cardiac rehab team. The patient tolerated supervised ambulation in the hallway and up/downstairs with no anginal symptoms. It was recommended that the patient return home and participate in a supervised cardiac rehab program at [facility]. #Hyperlipidemia Lipid profile showed total cholesterol 139 with LDL 79. Patient has been on atorvastatin 80 mg dailywhich she will continue at discharge. #Hypertension The patient's blood pressure in the 24 hours prior to discharge has been BP: (89-105)/(40-65) . Her metoprolol XL dosing was reduced to 25 mg daily. #IDDM2 The patient takes Tresiba, Victoza and Jardiance at home (although the Jardiance is at [facility]). Her hemoglobin A1c was 6.0. Given the amount of time she needed to be NPO and the multitudeof meds that were being held a consult to diabetes management team was initiated. She was placed on Lantus as well as meal and sliding scale insulin. Discharge regimen per DM team: Insulin Discharge Instructions ?? Instructions for your Tresiba (LONG ACTING) 1. Inject Tresiba 12 units insulin every morning. Check blood glucose (BG) before breakfast to adjust this dose 3. If the blood glucose before breakfast is over 150 for two days in a row, add TWO units of insulinto the next Tresiba dose. This increased dose becomes your new dose, continue to increase as needed. 4. If the blood glucose before breakfast is under 90 for two days in a row, subtract TWO units of insulin from the next Tresiba dose. This lower dose becomes your new dose, continue to decrease as needed. ? Instructions for Novolog (or Humalog) Insulin This is the rapid-acting insulin, used at mealtime to prevent a high BG after you eat. Check your BGbefore each meal. ?? ADD the following dose if your blood glucose is over 140 at meal time based on an insulin sensitivity factor of 20 meaning 1 unit of insulin is estimated to decrease your BG by 20 points. ? Blood Sugar NOVOLOG DOSE 140-159 ADD 1 unit 160-179 ADD 2 units 180-199 ADD 3 units 200-219 ADD 4 units 220-239 ADD 5 units 240-259 ADD 6 units 260-279 ADD 7 units 280-299 ADD 8 units >300 ADD 9 units and call Doctor ?? Treatment of Low Blood Sugar (Hypoglycemia) If your BG is lower than 80, you are likely to feel shaky, sweaty and lightheaded. This is a signal that your body needs more sugar. Quickly eat or drink a small serving of something sweet, such as: 4 ounces fruit juice or regular (not diet) soda 6 lifesavers small box of raisins 4 glucose tablets (~15 gm of glucose) If your BG is very low <50, you can double the amount above or take 30 gm of glucose gel/tablets. Sit and rest and you should feel better within a few minutes. Once you are feeling better, try to determine why your BG was so low. Common causes of hypoglycemia include skipping a meal, lots of exercise, too much insulin or any combination of these things. Understanding the cause my help you to avoidanother low BG in the future. Call your doctor for blood sugars less than 80 or greater than 300 twice in one day to have your insulin doses adjusted. # Concern for cellulitis, right radial cath site Patient reported slight amount of pus-like drainage from right radial access site. No drainage noted by nursing staff or this provider. Site with superficial ulceration, slightly raised with small amount of erythema surrounding. Afebrile, no elevated WBC. Patient admitted to rubbing the area with the palm of her hand because it was itchy. Started on Keflex 500 mg four times daily. Patient with PCN allergy as a child but stated she tolerated PCN derivatives and had take Keflex previously without issue. Duplex of right radial artery done to rule out abscess which was negative. Will complete 5 day course of antibiotics. #Chronic pain syndrome, opioid use with dependence The patient's methadone dosing was verified at the [facility] clinic and she continued on 100 mg of methadone daily. Due to bedrest following her procedures doses of Toradol were used to assist with back pain. Lidoderm patches as well as Tylenol were also given to assist with her chronic pain. Both fentanyl and Versed were used when she was in the cardiac label machine operator (both times) and the [facility] clinic was informed of these medication administrations. The patient was discharged home on no new pain medications. A letter will be faxed to the [facility] clinic to inform them of what meds were administered. #Nicotine dependence Smoking cessation was advised & discussed.Patient smokes half pack per day and smoking cessationwas encouraged. She did utilize a nicotine patch at 14 mg/day throughout her hospitalization. Functional and Cognitive Status: Alert and oriented x 3, ambulatory-independent Important Studies and Lab Data: Labs: Lab Results Component Value Date WBC 7.8 05/23/2022 HGB 14.3 05/23/2022 HCT 44.1 05/23/2022 PLATELET 301 05/23/2022 No results for input(s): INR in the last 168 hours. Lab Results Component Value Date NA 137 05/23/2022 K 4.4 05/23/2022 CL 102 05/23/2022 CO2 24 05/23/2022 BUN 24 (H) 05/23/2022 CREATININE 0.77 05/23/2022 Recent Labs 09/02/21 1740 TSH 2.32 Recent Labs 05/17/22 2012 HA1C 6.0* No results for input(s): CK, TROPONINT in the last 168 hours. Lab Results Component Value Date CHLPL 139 09/02/2021 HDL 24 09/02/2021 CHOLHDL 5.8 09/02/2021 TRIG 178 09/02/2021 LDLCHOL 79 09/02/2021 Pending Studies and Lab Data: None Discharge Conditions/Prognosis: Ambulatory without anginal symptoms Discharge to: Home Updated Allergies/ADRs: Allergies Allergen Reactions ??? Penicillins Spoke to mother Vicenta. Rash and SOB as a child ??? Tramadol Heart races ??? Trazodone Immunizations Given this Hospitalization: Immunization History Administered Date(s) Administered ??? Influenza Vaccine PF, Quadrivalent 02/24/2022 Discharge Medications: Your Medications New Medications Dose Details cephALEXin 500 mg Cap Commonly known as: Keflex Take 1 capsule by mouth 4 times daily for 4 days. 500 mg Quantity: 16 capsule Refills: 0 Continued medications with new dosing Dose Details acetaminophen 500 mg Tab Commonly known as: Tylenol Take 2 tablets by mouth every 6 hours. What changed: ?? when to take this ?? reasons to take this 1,000 mg Quantity: 30 tablet Refills: 1 ferrous sulfate EC 325 mg (65 mg iron) Tbec Take 1 tablet by mouth every other day. What changed: when to take this 325 mg Quantity: 30 tablet Refills: 3 furosemide 40 mg Tab Commonly known as: Lasix Take 1 tablet by mouth daily. Start taking on: May 24, 2022 What changed: ?? medication strength ?? how much to take ?? when to take this 40 mg Quantity: 60 tablet Refills: 3 gabapentin 300 mg Cap Commonly known as: Neurontin Take 2 capsules by mouth 2 times daily. What changed: when to take this 600 mg Quantity: 90 capsule Refills: 12 Insulin Tresiba FlexTouch U-200 200 unit/mL (3 mL) Inpn Inject 12 Units subcutaneously daily. Indications: type 2 diabetes mellitus Generic drug: insulin degludec What changed: how much to take 12 Units Quantity: 9 mL Refills: 3 metoprolol succinate XL 25 mg Tablet sr Commonly known as: Toprol-XL Take 1 tablet by mouth daily. What changed: ?? medication strength ?? how much to take 25 mg Quantity: 60 tablet Refills: 3 * nitroGLYcerin 2 % Oint Commonly known as: Nitroglyn Change 0.5 inches on the skin every 6 hours. What changed: You were already taking a medication with the same name, and this prescription was added. Make sure you understand how and when to take each. 0.5 inch Quantity: 30 g Refills: 0 * nitroGLYcerin 0.4 mg Subl Commonly known as: Nitrostat Place 1 tablet under the tongue every 5 minutes as needed for Chest pain. What changed: Another medication with the same name was added. Make sure you understand how and whento take each. 0.4 mg Quantity: 25 tablet Refills: 3 pantoprazole EC 20 mg Tbec Commonly known as: Protonix Take 1 tablet by mouth daily. What changed: how much to take 20 mg Quantity: 90 tablet Refills: 3 * This list has 2 medication(s) that are the same as other medications prescribed for you. Read thedirections carefully, and ask your doctor or other care provider to review them with you. Continued medications, unchanged Dose Details albuteroL 2.5 mg /3 mL (0.083 %) Nebu Commonly known as: Proventil Take 2.49 mg by nebulization every 6 hours as needed. 2.49 mg Refills: 0 aspirin EC 81 mg Tbec Take 1 tablet by mouth daily. 81 mg Quantity: 30 tablet Refills: 3 atorvastatin 80 mg Tab Commonly known as: Lipitor Take 1 tablet by mouth every evening. 80 mg Quantity: 90 tablet Refills: 3 Blood Pressure Kit Med & Lrg Kit 1 Product by [employer].(Non-Drug; Combo Route) route 2 times daily. 1 Product Quantity: 1 kit Refills: 0 cetirizine 10 mg Tab Commonly known as: ZyrTEC Take 10 mg by mouth daily as needed. 10 mg Refills: 0 clopidogreL 75 mg Tab Commonly known as: Plavix Take 1 tablet by mouth daily. 75 mg Quantity: 90 tablet Refills: 3 colchicine 0.6 mg Tab Commonly known as: Colcrys Take 0.6 mg by mouth 2 times daily. 0.6 mg Refills: 0 dextromethorphan 15 mg Cap Commonly known as: Robitussin Take 1 capsule by mouth every 6 hours. 15 mg Quantity: 20 capsule Refills: 0 fluticasone propion-salmeteroL 500-50 mcg/dose Dsdv Commonly known as: ADVAIR Inhale 1 puff into the lungs 2 times daily. 1 puff Refills: 0 fluticasone propionate 50 mcg/actuation Spsn Commonly known as: Flonase as needed. Refills: 0 folic acid 1 mg Tab Commonly known as: Folvite Take 1,000 mcg by mouth daily. 1,000 mcg Refills: 0 humaLOG KwikPen 100 unit/mL Inpn as needed. Generic drug: insulin lispro Refills: 0 insulin needles (disposable) 32 gauge x 5/32 Ndle Inject 1 each subcutaneously daily. Indications: diabetes mellitus 1 each Quantity: 100 each Refills: 11 Jardiance 10 mg Tab Take 10 mg by mouth daily. Generic drug: empagliflozin 10 mg Refills: 0 liraglutide 0.6 mg/0.1 mL (18 mg/3 mL) Pnij Commonly known as: VICTOZA Inject 1.8 mg subcutaneously daily. 1.8 mg Quantity: 30 mL Refills: 0 magnesium oxide 400 mg (241.3 mg magnesium) Tab Commonly known as: Mag-Ox Take 1 tablet by mouth 2 times daily. 400 mg Quantity: 30 tablet Refills: 12 methadone 10 mg Tab Commonly known as: Dolophine Take 100 mg by mouth every 8 hours. Methadone clinic 100 mg Refills: 0 nicotine 14 mg/24 hr Pt24 Commonly known as: Nicoderm CQ Change 1 patch on the skin daily. 1 patch Quantity: 28 patch Refills: 3 ondansetron 4 mg Tab Commonly known as: Zofran Take 1-2 tablets by mouth every 8 hours as needed. 4-8 mg Quantity: 20 tablet Refills: 0 polyethylene glycoL 17 gram Pwpk Commonly known as: Miralax Take 17 g by mouth daily as needed. 17 g Quantity: 14 each Refills: 0 STOPPED Medications losartan 25 mg Tab Commonly known as: Cozaar potassium chloride ER 20 mEq Tbtq Commonly known as: K-Dur/Klor-Con torsemide 20 mg Tab Commonly known as: Demadex Smoking Status at Discharge: Social History Tobacco Use Smoking Status Current Every Day Smoker ??? Packs/day: 0.50 Smokeless Tobacco Never Used Instructions Given to Patient at Discharge: There are no outpatient Patient Instructions on file for this admission. General Instructions You underwent a cardiac catheterization at which time a stent was placed to two of your coronary arteries: one stent was placed to the bifurcation of your left anterior descending and diagonal branch, and one stent was placed to your right coronary artery. In order to protect your stents from blood clots forming, you will need to remain on two antiplatelet medications called aspirin and plavix for a minimum of 12. After this time, your community relations rep will determine if you need to continue on both blood thinners, or if either can be stopped. You will likely be on aspirin life-long. You were continued on a beta jerri called metoprolol at a reduced dose (due to low blood pressure). This medication will help reduce workload on your heart, as well as a statin called Lipitor which will help reduce your cholesterol as well as help to reduce inflammation in your heart arteries. You were provided with a supply of sublingual nitroglycerin. Keep it with you at all times. If you have angina symptoms, such as chest pain or pressure, sit down and rest. Take the first dose of nitroglycerin and let it melt under your tongue. If symptoms go away, do not take any additional. If your symptoms get worse or are not getting better within 5 minutes, take a second nitro tab and call 911 right away. Stay on the phone. The emergency emergency vehicle operator will tell you what to do. Nitroglycerin is an emergency use medication. If you are taking this more than once in a week please alert your provider. Nitroglycerin in the original bottle is good for 1 year once the bottle is opened or until the date on the bottle is not used. If the bottom of the bottle is obscured by powder, or the label falls of discard the nitroglycerin and get a new bottle. You may resume light activity such as walking after your discharge. Do not do any strenuous activityfor the first week after your catheterization, including no lifting anything over 10 lbs. This is tohelp protect your cardiac cath access site and to continue to let it heal properly. You may shower, but do not submerge your cardiac cath access site in water for 1 week (no tubs, hot tubs, lakes, or pools). You may resume driving 24 hours after your catheterization if you were driving prior to your hospitalization. Call your doctor if: Chest pain, shortness of breath, pain or swelling in legs occurs. If you have non-emergent questions between now and the time of your follow up appointments: During 8am-5pm Monday through Monday call [phone] to speak with a nurse in the cardiology clinic All other times call [phone] and ask to speak to the vice president corporate communications container washer. Return to work: One week, if working prior to hospitalization Follow up Appointments: PCP Lora Parekh MD [phone] May 26, 2022 at 10:40 am Cardiology Denise Reeves PA-C June 02, 2022 at 1:45 check in to clinic Diabetes Management DISCHARGE PLAN Continue your Victoza daily Continue your Jardiance at 10mg daily Tresiba: 12 units am daily (avoid administering in hard area on your abdomen) Lispro for correction for blood sugars over 140 before meals. Monitoring: Work with your PCP to get a continuous glucose monitor. Insulin Discharge Instructions Instructions for your Tresiba (LONG ACTING) 1. Inject Tresiba 12 units insulin every morning. Check blood glucose (BG) before breakfast to adjust this dose 3. If the blood glucose before breakfast is over 150 for two days in a row, add TWO units of insulinto the next Tresiba dose. This increased dose becomes your new dose, continue to increase as needed. 4. If the blood glucose before breakfast is under 90 for two days in a row, subtract TWO units of insulin from the next Tresiba dose. This lower dose becomes your new dose, continue to decrease as needed. Instructions for Novolog (or Humalog) Insulin This is the rapid-acting insulin, used at mealtime to prevent a high BG after you eat. Check your BGbefore each meal. ADD the following dose if your blood glucose is over 140 at meal time based on an insulin sensitivity factor of 20 meaning 1 unit of insulin is estimated to decrease your BG by 20 points. ??? Blood Sugar NOVOLOG DOSE 140-159 ADD 1 unit 160-179 ADD 2 units 180-199 ADD 3 units 200-219 ADD 4 units 220-239 ADD 5 units 240-259 ADD 6 units 260-279 ADD 7 units 280-299 ADD 8 units >300 ADD 9 units and call Doctor Treatment of Low Blood Sugar (Hypoglycemia) If your BG is lower than 80, you are likely to feel shaky, sweaty and lightheaded. This is a signal that your body needs more sugar. Quickly eat or drink a small serving of something sweet, such as: 4 ounces fruit juice or regular (not diet) soda 6 lifesavers small box of raisins 4 glucose tablets (~15 gm of glucose) If your BG is very low <50, you can double the amount above or take 30 gm of glucose gel/tablets. Sit and rest and you should feel better within a few minutes. Once you are feeling better, try to determine why your BG was so low. Common causes of hypoglycemia include skipping a meal, lots of exercise, too much insulin or any combination of these things. Understanding the cause my help you to avoidanother low BG in the future. Call your doctor for blood sugars less than 80 or greater than 300 twice in one day to have your insulin doses adjusted. Future Appointments and Orders Future Appointments and Orders Future Appointments Provider Department Dept Phone 06/02/2022 2:00 PM Denise Reeves PA Cardiology at [facility] Arrive at: [facility] [phone] 08/22/2022 12:00 PM ECHO REGULAR Non-Invasive Cardiology Lab [facility] Arrive at: [facility] [phone] 08/22/2022 1:00 PM LAB, THREE L Lab [address] [place] [address] Arrive at: [facility] Area [phone] 08/22/2022 2:00 PM Tameka Neal MD Cardiology at [facility] Arrive at: [facility] [phone] Future Orders Complete By Expires Echocardiogram Transthoracic [34959 CPT(R)] 05/19/2022 11/19/2022 Process Instructions: Scheduling Instructions: Comments: After 08/17 Questions: Where will study be performed?: [facility] Clinics Is a Bubble Study requested?: Does the patient have Congenital Heart Disease?: Does patient require sedation?: GA rationale: Referral to Cardiac Rehab [YJM857 Custom] As directed Process Instructions: If no progress note charted, please enter Clinical details in comments. Scheduling Instructions: Questions: My question or request is: angina Discharge References/Attachments None Discussed with MD Julieta Horn PA-C Pager #[phone] 05/23/2022 Associated attestation - Hernán Mariscal MD - 05/25/2022 7:19 AM EDT I have seen the patient and reviewed the advanced practice provider's above history and I agree withthe details as written. The assessment and plan were formulated in discussion with me and I agree with them as documented. Greater than 30 minutes spent in discharge prep and planning documented in this encounter Discharge Instructions Discharge InstructionsMiJulieta garcia PA - 05/19/2022 11:30 AM EDT You underwent a cardiac catheterization at which time a stent was placed to two of your coronary arteries: one stent was placed to the bifurcation of your left anterior descending and diagonal branch, and one stent was placed to your right coronary artery. In order to protect your stents from blood clots forming, you will need to remain on two antiplatelet medications called aspirin and plavix for a minimum of 12. After this time, your community relations rep will determine if you need to continue on both blood thinners, or if either can be stopped. You will likely be on aspirin life-long. You were continued on a beta jerri called metoprolol at a reduced dose (due to low blood pressure). This medication will help reduce workload on your heart, as well as a statin called Lipitor which will help reduce your cholesterol as well as help to reduce inflammation in your heart arteries. You were provided with a supply of sublingual nitroglycerin. Keep it with you at all times. If you have angina symptoms, such as chest pain or pressure, sit down and rest. Take the first dose of nitroglycerin and let it melt under your tongue. If symptoms go away, do not take any additional. If your symptoms get worse or are not getting better within 5 minutes, take a second nitro tab and call 911 right away. Stay on the phone. The emergency emergency vehicle operator will tell you what to do. Nitroglycerin is an emergency use medication. If you are taking this more than once in a week please alert your provider. Nitroglycerin in the original bottle is good for 1 year once the bottle is opened or until the date on the bottle is not used. If the bottom of the bottle is obscured by powder, or the label falls of discard the nitroglycerin and get a new bottle. You may resume light activity such as walking after your discharge. Do not do any strenuous activityfor the first week after your catheterization, including no lifting anything over 10 lbs. This is tohelp protect your cardiac cath access site and to continue to let it heal properly. You may shower, but do not submerge your cardiac cath access site in water for 1 week (no tubs, hot tubs, lakes, or pools). You may resume driving 24 hours after your catheterization if you were driving prior to your hospitalization. Call your doctor if: Chest pain, shortness of breath, pain or swelling in legs occurs. If you have non-emergent questions between now and the time of your follow up appointments: During 8am-5pm Monday through Monday call [phone] to speak with a nurse in the cardiology clinic All other times call [phone] and ask to speak to the vice president corporate communications container washer. Return to work: One week, if working prior to hospitalization Follow up Appointments: PCP Lora Parekh MD [phone] May 26, 2022 at 10:40 am Cardiology Denise Reeves PA-C June 02, 2022 at 1:45 check in to [facility] clinic Diabetes Management DISCHARGE PLAN Continue your Victoza daily Continue your Jardiance at 10mg daily Tresiba: 12 units am daily (avoid administering in hard area on your abdomen) Lispro for correction for blood sugars over 140 before meals. Monitoring: Work with your PCP to get a continuous glucose monitor. Insulin Discharge Instructions Instructions for your Tresiba (LONG ACTING) Inject Tresiba 12 units insulin every morning. Check blood glucose (BG) before breakfast to adjust this dose If the blood glucose before breakfast is over 150 for two days in a row, add TWO units of insulin tothe next Tresiba dose. This increased dose becomes your new dose, continue to increase as needed. If the blood glucose before breakfast is under 90 for two days in a row, subtract TWO units of insulin from the next Tresiba dose. This lower dose becomes your new dose, continue to decrease as needed. Instructions for Novolog (or Humalog) Insulin This is the rapid-acting insulin, used at mealtime to prevent a high BG after you eat. Check your BGbefore each meal. ADD the following dose if your blood glucose is over 140 at meal time based on an insulin sensitivity factor of 20 meaning 1 unit of insulin is estimated to decrease your BG by 20 points. Blood Sugar NOVOLOG DOSE 140-159 ADD 1 unit 160-179 ADD 2 units 180-199 ADD 3 units 200-219 ADD 4 units 220-239 ADD 5 units 240-259 ADD 6 units 260-279 ADD 7 units 280-299 ADD 8 units >300 ADD 9 units and call Doctor Treatment of Low Blood Sugar (Hypoglycemia) If your BG is lower than 80, you are likely to feel shaky, sweaty and lightheaded. This is a signal that your body needs more sugar. Quickly eat or drink a small serving of something sweet, such as: 4 ounces fruit juice or regular (not diet) soda 6 lifesavers small box of raisins 4 glucose tablets (~15 gm of glucose) If your BG is very low <50, you can double the amount above or take 30 gm of glucose gel/tablets. Sit and rest and you should feel better within a few minutes. Once you are feeling better, try to determine why your BG was so low. Common causes of hypoglycemia include skipping a meal, lots of exercise, too much insulin or any combination of these things. Understanding the cause my help you to avoidanother low BG in the future. Call your doctor for blood sugars less than 80 or greater than 300 twice in one day to have your insulin doses adjusted. documented in this encounter Medications at Time of Discharge Medication Sig Dispensed Refills Start Date End Date furosemide (Lasix) 40 Take 1 tablet by 60 tablet 3 05/24/20 22 mg Tablet mouth daily. metoprolol succinate XL Take 1 tablet by 60 tablet 3 2021 (Toprol-XL) 25 mg mouth daily. Tablet Sustained Release 24 hr nitroGLYcerin Change 0.5 inches on 30 g 0 05/23/2022 (Nitroglyn) 2 % the skin every [address] 1 tablet under 25 tablet 3 05/23/2022 (Nitrostat) 0.4 mg the tongue every 5 Tablet, Sublingual minutes as needed for Chest pain. Insulin Tresiba Inject 12 Units 9 mL 3 05/23/2022 FlexTouch U-200 200 subcutaneously daily. unit/mL (3 mL) Insulin Indications: type 2 PenIndications: type 2 diabetes mellitus diabetes mellitus methadone (Dolophine) Take 100 mg by mouth 0 10 mg Tablet every 8 hours. Methadone clinic cetirizine (ZyrTEC) 10 Take 10 mg by mouth 0 03/0 10/2021 mg Tablet daily as needed. colchicine (Colcrys) Take 0.6 mg by mouth 0 05/09 0.6 mg Tablet 2 times daily. Jardiance 10 mg Tablet Take 10 mg by mouth 0 08/0 05/2022 daily. fluticasone propionate as needed. 0 04/13/2022 (Flonase) 50 mcg/actuation Magnolia, Suspension folic acid (Folvite) 1 Take 1,000 mcg by 0 2021 mg Tablet mouth daily. humaLOG KwikPen 100 as needed. 0 04/13/2022 unit/mL Insulin Pen dextromethorphan Take 1 capsule by 20 capsule 0 02/24/2022 (Robitussin) 15 mg mouth every 6 hours. Capsule ondansetron (Zofran) 4 Take 1-2 tablets by 20 tablet 0 01/31 mg Tablet mouth every 8 hours as needed. polyethylene glycoL Take 17 g by mouth 14 each 0 02/25/20 22 (Miralax) 17 gram daily as needed. Powder in Packet acetaminophen (Tylenol) Take 2 tablets by 30 tablet 1 02/24 500 mg Tablet mouth every 6 hours. liraglutide (VICTOZA) Inject 1.8 mg 30 mL 0 02/24/2022 0.6 mg/0.1 mL (18 mg/3 subcutaneously daily. mL) Pen Injector Blood Pressure Kit Med 1 Product by 1 kit 0 09/06/2021 & Lrg KitIndications: Misc.(Non-Drug; Combo HFrEF (heart failure Route) route 2 times with reduced ejection daily. fraction), Coronary artery disease involving habematolel coronary artery of habematolel heart without angina pectoris, Hypertension, unspecified type aspirin EC 81 mg Take 1 tablet by 30 tablet 3 09/06/2021 Tablet, Delayed Release mouth daily. (E.C.) atorvastatin (Lipitor) Take 1 tablet by 90 tablet 3 021 80 mg Tablet mouth every evening. clopidogreL (Plavix) 75 Take 1 tablet by 90 tablet 3 2020 mg Tablet mouth daily. ferrous sulfate EC 325 Take 1 tablet by 30 tablet 3 021 mg (65 mg iron) Tablet, mouth every other Delayed Release (E.C.) day. magnesium oxide Take 1 tablet by 30 tablet 12 09/05/2021 (Mag-Ox) 400 mg (241.3 mouth 2 times daily. mg magnesium) Tablet gabapentin (Neurontin) Take 2 capsules by 90 capsule 12 09/05 300 mg Capsule mouth 2 times daily. insulin needles, Inject 1 each 100 each 11 09/05/2021 disposable, 32 gauge x subcutaneously daily. Indications: diabetes NeedleIndications: mellitus diabetes mellitus nicotine (Nicoderm CQ) Change 1 patch on the 28 patch 3 14 mg/24 hr Patch 24 hr skin daily. pantoprazole EC Take 1 tablet by 90 tablet 3 09/05/2021 (Protonix) 20 mg mouth daily. Tablet, Delayed Release (E.C.) albuterol (PROVENTIL) Take 2.49 mg by 0 2.5 mg /3 mL (0.083 %) nebulization every 6 nebulizer solution hours as needed. fluticasone Inhale 1 puff into 0 propion-salmeteroL the lungs 2 times (ADVAIR) 500-50 daily. mcg/dose Disk with Device cephALEXin (Keflex) 500 Take 1 capsule by 16 capsule 0 05/2305/27/2022 mg Capsule mouth 4 times daily for 4 days. documented as of this encounter Progress Notes Edison Powell RN - 05/23/2022 1:30 PM EDT Patient verbalized understanding of discharge teaching and instructions. Patient has a copy of discharge paperwork in hand. Patient states she has all personal belongings with her. Patient wearing lifevest. Patient taken down to the east entrance via wheelchair. Patient had no signs or symptoms of distress. Patient to be taken home by [facility]. Julieta Saunders PA - 05/23/2022 10:46 AM EDT Inpatient Cardiology Progress Note Patient Name: Aracelis Sho Service: DIRECTOR OF PARTNERSHIPS / PA Responsible Attending: Hernán Mariscal MD Reason for continued hospitalization: Evaluation and management of staged PCI with bifurcating stent to LAD/DI and instent restenois of RCA Medication adjustment for chronic systolic heart failure LifeVEST prior to discharge Active Problems: Active Hospital Problems Diagnosis ??? Ischemic cardiomyopathy ??? ASCVD (arteriosclerotic cardiovascular disease) Resolved Hospital Problems No resolved problems to display. Interval History: Uncomfortable while sitting in bed r/t chronic pain. Otherwise no acute concerns. Reports of chest pain overnight, relieved with nitro. SBP 80-90s. Review of Systems: Review of Systems Cardiovascular: Positive for chest pain (off and on). Musculoskeletal: Positive for back pain. All other systems reviewed and are negative. Telemetry: HR: 60s sinus rhythm Meds: Scheduled Meds: ??? [START ON 05/24/2022] insulin glargine (Lantus;Semglee) (100 unit/mL) subcutaneous injection 12 Units Subcutaneous Daily ??? cephALEXin 500 mg Oral 4 Times Daily ??? insulin lispro 1-4 Units Subcutaneous TID AC ??? furosemide 40 mg Oral Daily ??? ferrous sulfate EC 325 mg Oral BID WC ??? lidocaine 2 patch Transdermal Q24H And ??? lidocaine 2 patch Transdermal Q24H ??? gabapentin 600 mg Oral Nightly ??? methadone (Methadose) oral liquid 100 mg Oral Daily ??? empagliflozin 10 mg Oral Daily ??? metoprolol succinate XL 25 mg Oral Daily ??? insulin lispro 0-8 Units Subcutaneous TID WC ??? pantoprazole EC 40 mg Oral Daily ??? aspirin EC 81 mg Oral Daily ??? clopidogreL 75 mg Oral Daily ??? ipratropium-albuteroL 3 mL Nebulization Q6H ??? atorvastatin 80 mg Oral QPM ??? colchicine 0.6 mg Oral BID ??? dextromethorphan 15 mg Oral Q6H ??? folic acid 1,000 mcg Oral Daily ??? magnesium oxide 400 mg Oral BID ??? heparin (porcine) 5,000 Units Subcutaneous Q8H ALAN ??? nicotine 1 patch Transdermal Daily And ??? Patch Verification 1 patch Transdermal BID And ??? nicotine 1 patch Transdermal Daily ??? acetaminophen 975 mg Oral Q6H Continuous Infusions: PRN Meds:ondansetron, benzocaine, nitroGLYcerin, glucose 40% oral geL OR dextrose 10% OR glucagon, albuteroL Physical Exam: Vital Signs: Last value Range last 24 hrs Temperature Temp: 36.6 ??C (97.9 ??F) Temp: [36.5 ??C (97.7 ??F)-37.3 ??C (99.1 ??F)] Heart Rate Heart Rate: 56 Heart Rate: [56-70] Blood Pressure BP: 94/53 BP: (89-105)/(40-65) Respiratory Rate Resp: 16 Resp: [16] SpO2 SpO2: 99 % SpO2: [95 %-99 %] Intake/Output Summary (Last 24 hours) at 05/23/2022 1046 Last data filed at 05/23/2022 0407 Gross per 24 hour Intake -- Output 550 ml Net -550 ml Patient Vitals for the past 168 hrs: Weight 05/23/22 0608 84.2 kg (185 lb 10 oz) 05/22/22 0500 85 kg (187 lb 6.3 oz) 05/21/22 0454 85.4 kg (188 lb 4.4 oz) 05/20/22 0624 86.2 kg (190 lb 0.6 oz) 05/19/22 0500 85.7 kg (188 lb 15 oz) 05/18/22 0348 83.6 kg (184 lb 4.9 oz) 05/17/22 1238 83.6 kg (184 lb 3.2 oz) Physical Exam Vitals and nursing note reviewed. Constitutional: General: She is not in acute distress. Appearance: She is well-developed. She is not diaphoretic. HENT: Head: Normocephalic and atraumatic. Eyes: General: Right eye: No discharge. Left eye: No discharge. Cardiovascular: Rate and Rhythm: Normal rate and regular rhythm. Pulses: Intact distal pulses. Heart sounds: Normal heart sounds. No murmur heard. No friction rub. No gallop. Pulmonary: Effort: Pulmonary effort is normal. No respiratory distress. Breath sounds: Normal breath sounds. No wheezing or rales. Abdominal: General: Bowel sounds are normal. There is no distension. Palpations: Abdomen is soft. Tenderness: There is no rebound. Musculoskeletal: General: Normal range of motion. Cervical back: Normal range of motion and neck supple. Right lower leg: No edema. Left lower leg: No edema. Skin: General: Skin is warm and dry. Comments: Multiple tattoos, scars present on upper extremities. See photo of right radial access site. No bleeding. CMS intact. Neurological: Mental Status: She is alert and oriented to person, place, and time. Psychiatric: Behavior: Behavior normal. Lab Comments: Recent Labs 05/23/2231805/22/22 0504 05/21/22 0350 WBC 7.8 7.0 8.8 HGB 14.3 13.6 13.8 HCT 44.1 41.1 42.9 PLATELET 301 314 318 No results for input(s): INR in the last 168 hours. Recent Labs 05/23/2231805/22/22 0504 05/21/22 0350 NA 137 138 139 K 4.4 4.5 4.9 CL 102 103 102 CO2 24 25 27 BUN 24* 24* 25* CREATININE 0.77 0.84 0.85 Recent Labs 05/22/22 0504 05/17/222011 AST 31* 18 ALT 29 16 ALKPHOS 112* 118* BILITOT 0.2 0.4 BILIDIR Not Perf 0.1 Recent Labs 05/23/2231805/22/22 0504 05/21/22 0350 05/20/22 0340 CALCIUM 8.8 8.6 8.9 9.0 MAGNESIUM -- 1.03 0.96 1.09* No results for input(s): CK, TROPONINT in the last 168 hours. Pertinent Radiographic/Diagnostic Results: Right upper quadrant ultrasound: 05/18/22 IMPRESSION 1. Homogeneous hepatic parenchymal echo texture without mass. No biliary dilation. Normal gallbladder. 2. 4 mm pancreatic duct is upper limits of normal. This not visualized pancreatic head. Further evaluation with pancreatic mass MRI is suggested to exclude the possibility of an occult lesion. This need not be performed on an inpatient basis. Unexpected finding. 3. Suspect duplicated nondilated right renal collecting system. Right kidney measures 12.3 cm in length. 4. Left kidney measures 10.1 cm in length without collecting system dilation. No renal cysts. Bladder collapsed. RHC: 05/19/22 Hemodynamics: Right Heart Pressures Resting: Syst Diast EDP a v m RA 7 10 6 RV 32 7 PA 31 7 22 PCW 12 16 12 Hemodynamic Profile: Profile 1 CO 5.18 CI 2.70 TPR 340 PVR 154 Technique Estimated Jefe Oximetry: Location %Sat Location %Sat Main Pulmonary Artery 66.0 [facility] 05/17/22 Conclusions: * Two vessel coronary artery disease (LAD and RCA) * Successful stent insertion of the ostial D1 lesion * Successful stent insertion of the proximal LAD lesion * Successful stent insertion of the distal RCA lesion * See Dual Antiplatelet (DAPT) Recommendations above Assessment: Aracelis Berkowitz is a 46 y.o. female with PMH of ASCVD s/p PCI to RCA in 09/2021 (with residual long tubular mid LAD lesion), Ischemic cardiomyopathy (last EF 31% on 05/13/2022), IDDM2, microcyticanemia, LLE trauma requiring fasciotomy on 02/23/2022, syncope who presented to the hospital for a staged PCI of the LAD now s/p bifurcation stent to LAD/D1 and RCA PCI for in-stent restenosis. Ongoing optimization of GDMT for HFrEF, however greatly limited by hypotension. Spironolactone added though later stopped d/t hyperkalemia. EP evaluation for LifeVest. TTE in 3 months after revascularization. LifeVEST for discharge, approval has been obtained with insurance. [facility] who provides methadone was updated on discharge plans. MAR and D/C summary to be faxed. Plan:?? #ASCVD s/p PCI to RCA and now s/p staged PCI to long tubular mid LAD/D1 and RCA. #Ischemic cardiomyopathy: EF was 31% on 05/13/2022, chronic systolic heart failure Continue ASA, Plavix, atorvastatin Reduce metoprolol succinate to 25 mg daily Stop spironolactone d/t hyperkalemia Empagliflozin 10 mg daily Entresto stopped previously, unable to add at this time d/t BPs Lasix 40 mg daily -188-190 is her dry weight LifeVEST for discharge Echo in 3 months, with EP consult to follow if EF remains low Concern for right radial access site skin infection, ruled out abscess with US, treat with Keflex x5days #IDDM2 Last A1c was 5.6 in 01/2022, 6.0 now On Tresiba, Victoza, Jardiance at home Continue Jardiance 10 mg daily (HF dosing) Meal associated and correction insulin Continue gabapentin Lantus 10 units daily DM management consult appreciated ?? #Chronic pain syndrome: Opioid use with dependence Continue methadone 100 mg daily, confirmed at her methadone clinic Tylenol standing Lidoderm patch x 2 to lower back (aware these won't be used for home)?? Heating pad/cooling pad available #Nicotine dependence, 1/2 PPD Encouraged about smoking cessation Nicotine patch available ?? #GERD Continue pantoprazole ?? #Hx of Iron deficiency Anemia Continue ferrous sulfate ? #Routine Code Status: Full Diet: Cardiac/diabetic DVT PPx: SQH Discussed with MD Julieta Horn PA-C Pager #[phone] 05/23/2022 Associated attestation - Hernán Mariscal MD - 05/23/2022 3:40 PM EDT I have seen the patient and reviewed the advanced practice provider's above history and I agree withthe details as written. The assessment and plan were formulated in discussion with me and I agree with them as documented. Joy Munoz, DAMIÁN - 05/23/2022 8:50 AM EDT Follow Up Diabetes Consult Patient Interview December to discharge today. She has called for her ride. Objective Temp: [36.5 ??C (97.7 ??F)-37.3 ??C (99.1 ??F)] Heart Rate: [56-70] Resp: [16] BP: (89-105)/(40-65) SpO2: [95 %-99 %] Heart Rate from SpO2: [63 bpm-76 bpm] Current Regimen from previous note Lantus:10 units Lispro 1:10 insulin to carbohydrate ratio Lispro for correction q 4 hours based on a correction factor of 40 Diet cardiac choiced 60/60/75 Monitoring: Q 4 ?? Discharge Considerations: She will follow up with PCP for Yasir 2 CGM plus reader Review importance of site rotation for insulin administration, avoiding area of lipohypertrophy on abdomen She should start back on insulin dosing identified during hospital admission NOT HER HOME DOSING Recent Glucose Levels Recent Labs 05/23/22 0727 05/22/22 2006 05/22/22 1739 05/22/22 1207 05/22/22 0804 05/21/22 1934 05/21/22 1637 05/21/22 1234 05/21/22 1103 05/21/22 0948 05/21/22 0742 05/21/22 0453 POCGLU 220* 153 173 233* 112 139 119 151 225* 224* 162 126 ASSESSMENT December??is a 46 y.o.??female??with PMH of ASCVD s/p PCI to RCA in 09/2021 ( with residual long tubular mid LAD lesion), Ischemic cardiomyopathy ( last EF 31% on 05/13/2022), IDDM2, microcytic anemia, LLE trauma requiring fasciotomy on 02/23/2022, syncope who presented to the hospital for a staged PCI of the LAD??now s/p bifurcation stent to LAD/D1 and RCA PCI for in-stent restenosis.? Patient to discharge to home today. Insulin use and blood sugars reviewed prior to discharge. Case reviewed with primary team. Diabetes discharge recs reviewed with team. DISCHARGE PLAN Continue your Victoza Continue your Jardiance at 10mg daily Tresiba: 12 units am daily Avoid administering in hardened areas on abdomen. Lispro for correction for blood sugars over 140 before meals. Monitoring: Work with your PCP to get a continuous glucose monitor. Insulin Discharge Instructions Instructions for your Tresiba (LONG ACTING) 1. Inject Tresiba 12 units insulin every morning. Check blood glucose (BG) before breakfast to adjust this dose 3. If the blood glucose before breakfast is over 150 for two days in a row, add TWO units of insulinto the next Tresiba dose. This increased dose becomes your new dose, continue to increase as needed. 4. If the blood glucose before breakfast is under 90 for two days in a row, subtract TWO units of insulin from the next Tresiba dose. This lower dose becomes your new dose, continue to decrease as needed. Instructions for Novolog (or Humalog) Insulin This is the rapid-acting insulin, used at mealtime to prevent a high BG after you eat. Check your BGbefore each meal. ADD the following dose if your blood glucose is over 140 at meal time based on an insulin sensitivity factor of 20 meaning 1 unit of insulin is estimated to decrease your BG by 20 points. ??? Blood Sugar NOVOLOG DOSE 140-159 ADD 1 unit 160-179 ADD 2 units 180-199 ADD 3 units 200-219 ADD 4 units 220-239 ADD 5 units 240-259 ADD 6 units 260-279 ADD 7 units 280-299 ADD 8 units >300 ADD 9 units and call Doctor Treatment of Low Blood Sugar (Hypoglycemia) If your BG is lower than 80, you are likely to feel shaky, sweaty and lightheaded. This is a signal that your body needs more sugar. Quickly eat or drink a small serving of something sweet, such as: 4 ounces fruit juice or regular (not diet) soda 6 lifesavers small box of raisins 4 glucose tablets (~15 gm of glucose) If your BG is very low <50, you can double the amount above or take 30 gm of glucose gel/tablets. Sit and rest and you should feel better within a few minutes. Once you are feeling better, try to determine why your BG was so low. Common causes of hypoglycemia include skipping a meal, lots of exercise, too much insulin or any combination of these things. Understanding the cause my help you to avoidanother low BG in the future. Call your doctor for blood sugars less than 80 or greater than 300 twice in one day to have your insulin doses adjusted. Joy Munoz APRN [facility] Endocrinology Diabetes Management Pager [phone] 20 minutes of this 35 minute visit was spent with the patient in counseling on diabetes and treatment plan, reviewing all glucose and insulin data as well as relevant laboratory results with the patient, and coordination of care on the inpatient unit including nursing and primary team. Sharmin Che APRN - 05/22/2022 11:26 AM EDT Images from the original note were not included. Right radial access site from cath 05/17/22 Sharmin Che APRN - 05/22/2022 9:43 AM EDT Images from the original note were not included. Inpatient Cardiology Progress Note Patient Name: Aracelis Sho Service: DIRECTOR OF PARTNERSHIPS / PA Responsible Attending: Hernán Mariscal MD Reason for continued hospitalization: Evaluation and management of staged PCI with bifurcating stent to LAD/DI and instent restenois of RCA Medication adjustment for chronic systolic heart failure LifeVEST prior to discharge Active Problems: Active Hospital Problems Diagnosis ??? Ischemic cardiomyopathy ??? ASCVD (arteriosclerotic cardiovascular disease) Resolved Hospital Problems No resolved problems to display. Interval History: Uncomfortable while sitting in bed r/t chronic pain. Otherwise no acute concerns. Reports of chest pain overnight, relieved with nitropatch. SBP 80-90s. Review of Systems: Review of Systems Cardiovascular: Positive for chest pain (off and on). Musculoskeletal: Positive for back pain. All other systems reviewed and are negative. Telemetry: HR: 60s sinus rhythm Meds: Scheduled Meds: ??? insulin lispro 1-4 Units Subcutaneous TID AC ??? insulin glargine (Lantus;Semglee) (100 unit/mL) subcutaneous injection 10 Units Subcutaneous Daily ??? furosemide 40 mg Oral Daily ??? ferrous sulfate EC 325 mg Oral BID WC ??? lidocaine 2 patch Transdermal Q24H And ??? lidocaine 2 patch Transdermal Q24H ??? gabapentin 600 mg Oral Nightly ??? methadone (Methadose) oral liquid 100 mg Oral Daily ??? empagliflozin 10 mg Oral Daily ??? metoprolol succinate XL 25 mg Oral Daily ??? insulin lispro 0-8 Units Subcutaneous TID WC ??? pantoprazole EC 40 mg Oral Daily ??? aspirin EC 81 mg Oral Daily ??? clopidogreL 75 mg Oral Daily ??? ipratropium-albuteroL 3 mL Nebulization Q6H ??? atorvastatin 80 mg Oral QPM ??? colchicine 0.6 mg Oral BID ??? dextromethorphan 15 mg Oral Q6H ??? folic acid 1,000 mcg Oral Daily ??? magnesium oxide 400 mg Oral BID ??? heparin (porcine) 5,000 Units Subcutaneous Q8H ALAN ??? nicotine 1 patch Transdermal Daily And ??? Patch Verification 1 patch Transdermal BID And ??? nicotine 1 patch Transdermal Daily ??? acetaminophen 975 mg Oral Q6H Continuous Infusions: PRN Meds:benzocaine, nitroGLYcerin, glucose 40% oral geL OR dextrose 10% OR glucagon, albuteroL Physical Exam: Vital Signs: Last value Range last 24 hrs Temperature Temp: 36.5 ??C (97.7 ??F) Temp: [36.2 ??C (97.2 ??F)-36.9 ??C (98.4 ??F)] Heart Rate Heart Rate: 62 Heart Rate: [60-64] Blood Pressure BP: 94/63 BP: (87-100)/(46-75) Respiratory Rate Resp: 20 Resp: [16-20] SpO2 SpO2: 98 % SpO2: [93 %-99 %] Intake/Output Summary (Last 24 hours) at 05/22/2022 0943 Last data filed at 05/21/2022 1940 Gross per 24 hour Intake -- Output 1700 ml Net -1700 ml Patient Vitals for the past 168 hrs: Weight 05/22/22 0500 85 kg (187 lb 6.3 oz) 05/21/22 0454 85.4 kg (188 lb 4.4 oz) 05/20/22 0624 86.2 kg (190 lb 0.6 oz) 05/19/22 0500 85.7 kg (188 lb 15 oz) 05/18/22 0348 83.6 kg (184 lb 4.9 oz) 05/17/22 1238 83.6 kg (184 lb 3.2 oz) Physical Exam Vitals and nursing note reviewed. Constitutional: General: She is not in acute distress. Appearance: She is well-developed. She is not diaphoretic. HENT: Head: Normocephalic and atraumatic. Eyes: General: Right eye: No discharge. Left eye: No discharge. Cardiovascular: Rate and Rhythm: Normal rate and regular rhythm. Pulses: Intact distal pulses. Heart sounds: Normal heart sounds. No murmur heard. No friction rub. No gallop. Pulmonary: Effort: Pulmonary effort is normal. No respiratory distress. Breath sounds: Normal breath sounds. No wheezing or rales. Abdominal: General: Bowel sounds are normal. There is no distension. Palpations: Abdomen is soft. Tenderness: There is no rebound. Musculoskeletal: General: Normal range of motion. Cervical back: Normal range of motion and neck supple. Right lower leg: No edema. Left lower leg: No edema. Skin: General: Skin is warm and dry. Comments: Multiple tattoos, scars present on upper extremities. Neurological: Mental Status: She is alert and oriented to person, place, and time. Psychiatric: Behavior: Behavior normal. Lab Comments: Recent Labs 05/22/22 0504 05/21/22 0350 05/20/22 0340 WBC 7.0 8.8 7.4 HGB 13.6 13.8 13.9 HCT 41.1 42.9 43.7 PLATELET 314 318 295 No results for input(s): INR in the last 168 hours. Recent Labs 05/22/22 0504 05/21/22 0350 05/20/22 0340 NA 138 139 142 K 4.5 4.9 5.5* CL 103 102 107 CO2 25 27 28 BUN 24* 25* 25* CREATININE 0.84 0.85 0.77 Recent Labs 05/17/222011 AST 18 ALT 16 ALKPHOS 118* BILITOT 0.4 BILIDIR 0.1 Recent Labs 05/22/22 0504 05/21/22 0350 05/20/22 0340 CALCIUM 8.6 8.9 9.0 MAGNESIUM 1.03 0.96 1.09* No results for input(s): CK, TROPONINT in the last 168 hours. Pertinent Radiographic/Diagnostic Results: Right upper quadrant ultrasound: 05/18/22 IMPRESSION ?? 1. Homogeneous hepatic parenchymal echo texture without mass. No biliary dilation. Normal gallbladder. 2. 4 mm pancreatic duct is upper limits of normal. This not visualized pancreatic head. Further evaluation with pancreatic mass MRI is suggested to exclude the possibility of an occult lesion. This need not be performed on an inpatient basis. Unexpected finding. 3. Suspect duplicated nondilated right renal collecting system. Right kidney measures 12.3 cm in length. 4. Left kidney measures 10.1 cm in length without collecting system dilation. No renal cysts. Bladder collapsed. Cardiac cath: 05/19/22 Hemodynamics: Right Heart Pressures Resting: Syst Diast EDP a v m RA 7 10 6 RV 32 7 PA 31 7 22 PCW 12 16 12 Hemodynamic Profile: Profile 1 CO 5.18 CI 2.70 TPR 340 PVR 154 Technique Estimated Jefe Oximetry: Location %Sat Location %Sat Main Pulmonary Artery 66.0 Assessment: Aracelis Berkowitz is a 46 y.o. female with PMH of ASCVD s/p PCI to RCA in 09/2021 ( with residual long tubular mid LAD lesion), Ischemic cardiomyopathy ( last EF 31% on 05/13/2022), IDDM2, microcytic anemia, LLE trauma requiring fasciotomy on 02/23/2022, syncope who presented to the hospital for a staged PCI of the LAD now s/p bifurcation stent to LAD/D1 and RCA PCI for in-stent restenosis. Ongoing optimization of GDMT for HFrEF, however strongly limited by hypotension. Spironolactone added though later stopped d/t hyperkalemia. EP evaluation and TTE in 3 months after revascularization. Life[facility] for discharge, approval has been obtained with insurance. [facility] who provides methadone (spoke to Ruthann in the dispensary), and they are closed on Monday--typically an extra dose is given by them on Monday for the Monday dose. Plan:?? #ASCVD s/p PCI to RCA and now s/p staged PCI to long tubular mid LAD/D1 and RCA. #Ischemic cardiomyopathy: EF was 31% on 05/13/2022, chronic systolic heart failure Continue ASA, plavix, Lipitor Reduce metoprolol xl to 25 mg daily Stop spironolactone d/t hyperkalemia Empagliflozin 10 mg daily Entresto stopped previously, unable to add at this time d/t BPs Lasix 40 mg daily -188-190 is her dry weight LifeVEST for discharge Echo in 3 months, with EP consult to follow if EF remains low #IDDM2 Last A1c was 5.6 in 01/2022, 6.0 now On Tresciba, Victoza, Jardiance at home Continue Jardiance 10 mg daily (HF dosing) Meal associated and correction insulin Continue gabapentin Lantus 10 units daily DM management consult appreicated ?? #Chronic pain syndrome: Opioid use with dependence Continue methadone 100 mg daily, confirmed at her methadone clinic Tylenol standing Lidoderm patch x 2 to lower back (aware these won't be used for home)?? Heating pad/cooling pad available #Nicotine dependence, 1/2 PPD Encouraged about smoking cessation Nicotine patch available ?? #GERD Continue pantoprazole ?? #Hx of Iron deficiency Anemia Continue ferrous sulfate ? #Routine Code Status: Full Diet: Cardiac/diabetic DVT PPx: SQH Discussed with MD Sharmin Horn APRN Cardiovascular Medicine 05/22/2022 Associated attestation - Hernán Mariscal MD - 05/22/2022 9:58 AM EDT I have seen the patient and reviewed the advanced practice provider's above history and I agree withthe details as written. The assessment and plan were formulated in discussion with me and I agree with them as documented. Edison Powell RN - 05/21/2022 6:51 PM EDT Pt complaint of back and chest pain. PA notified of situation and ordered medication to be given. See MAR. Pt at the end of the shift had complaint of chest pain and asked for nitro. Pt's recent BP low and consulted cross coverage. ordered nitro paste. Pt up in chair. Awaiting nitro paste to be delivered from the pharmacy. Will continue to monitor. Sharmin Che APRN - 05/21/2022 9:54 AM EDT Images from the original note were not included. Inpatient Cardiology Progress Note Patient Name: December Service: DIRECTOR OF PARTNERSHIPS / PA Responsible Attending: Hernán Mariscal MD Reason for continued hospitalization: Evaluation and management of staged PCI with bifurcating stent to LAD/DI and instent restenois of RCA Medication adjustment for chronic systolic heart failure LifeVEST prior to discharge Active Problems: Active Hospital Problems Diagnosis ??? Ischemic cardiomyopathy ??? ASCVD (arteriosclerotic cardiovascular disease) Resolved Hospital Problems No resolved problems to display. Interval History: Uncomfortable while sitting in bed r/t chronic pain. Otherwise no acute concerns. No chest pain. SBP 80-90s. Review of Systems: Review of Systems Cardiovascular: Positive for chest pain (off and on). Musculoskeletal: Positive for back pain. All other systems reviewed and are negative. Telemetry: HR: 60s sinus rhythm Meds: Scheduled Meds: ??? nitroGLYcerin 0.5 inch Topical (Top) Once ??? insulin glargine (Lantus;Semglee) (100 unit/mL) subcutaneous injection 10 Units Subcutaneous Daily ??? furosemide 40 mg Oral Daily ??? ferrous sulfate EC 325 mg Oral BID WC ??? lidocaine 2 patch Transdermal Q24H And ??? lidocaine 2 patch Transdermal Q24H ??? gabapentin 600 mg Oral Nightly ??? methadone (Methadose) oral liquid 100 mg Oral Daily ??? empagliflozin 10 mg Oral Daily ??? metoprolol succinate XL 25 mg Oral Daily ??? insulin lispro 0-8 Units Subcutaneous TID WC ??? insulin lispro 1-4 Units Subcutaneous Q4H ALAN ??? pantoprazole EC 40 mg Oral Daily ??? aspirin EC 81 mg Oral Daily ??? clopidogreL 75 mg Oral Daily ??? ipratropium-albuteroL 3 mL Nebulization Q6H ??? atorvastatin 80 mg Oral QPM ??? colchicine 0.6 mg Oral BID ??? dextromethorphan 15 mg Oral Q6H ??? folic acid 1,000 mcg Oral Daily ??? magnesium oxide 400 mg Oral BID ??? heparin (porcine) 5,000 Units Subcutaneous Q8H ALAN ??? nicotine 1 patch Transdermal Daily And ??? Patch Verification 1 patch Transdermal BID And ??? nicotine 1 patch Transdermal Daily ??? acetaminophen 975 mg Oral Q6H Continuous Infusions: PRN Meds:ketorolac, benzocaine, nitroGLYcerin, glucose 40% oral geL OR dextrose 10% OR glucagon, albuteroL Physical Exam: Vital Signs: Last value Range last 24 hrs Temperature Temp: 36.7 ??C (98.1 ??F) Temp: [36.6 ??C (97.9 ??F)-37 ??C (98.6 ??F)] Heart Rate Heart Rate: 67 Heart Rate: [66-79] Blood Pressure BP: 97/62 BP: (86-104)/(52-64) Respiratory Rate Resp: 18 Resp: [16-20] SpO2 SpO2: 95 % SpO2: [94 %-98 %] Intake/Output Summary (Last 24 hours) at 05/21/2022 0954 Last data filed at 05/21/2022 0456 Gross per 24 hour Intake 300 ml Output 2450 ml Net -2150 ml Patient Vitals for the past 168 hrs: Weight 05/21/22 0454 85.4 kg (188 lb 4.4 oz) 05/20/22 0624 86.2 kg (190 lb 0.6 oz) 05/19/22 0500 85.7 kg (188 lb 15 oz) 05/18/22 0348 83.6 kg (184 lb 4.9 oz) 05/17/22 1238 83.6 kg (184 lb 3.2 oz) Physical Exam Vitals and nursing note reviewed. Constitutional: General: She is not in acute distress. Appearance: She is well-developed. She is not diaphoretic. HENT: Head: Normocephalic and atraumatic. Eyes: General: Right eye: No discharge. Left eye: No discharge. Cardiovascular: Rate and Rhythm: Normal rate and regular rhythm. Pulses: Intact distal pulses. Heart sounds: Normal heart sounds. No murmur heard. No friction rub. No gallop. Pulmonary: Effort: Pulmonary effort is normal. No respiratory distress. Breath sounds: Normal breath sounds. No wheezing or rales. Abdominal: General: Bowel sounds are normal. There is no distension. Palpations: Abdomen is soft. Tenderness: There is no rebound. Musculoskeletal: General: Normal range of motion. Cervical back: Normal range of motion and neck supple. Right lower leg: No edema. Left lower leg: No edema. Skin: General: Skin is warm and dry. Comments: Multiple tattoos, scars present on upper extremities. Neurological: Mental Status: She is alert and oriented to person, place, and time. Psychiatric: Behavior: Behavior normal. Lab Comments: Recent Labs 05/21/22 0350 05/20/22 0340 05/19/22 0333 WBC 8.8 7.4 6.9 HGB 13.8 13.9 13.9 HCT 42.9 43.7 42.7 PLATELET 318 295 300 No results for input(s): INR in the last 168 hours. Recent Labs 05/21/22 0350 05/20/22 0340 05/19/22 0333 NA 139 142 142 K 4.9 5.5* 4.8 CL 102 107 106 CO2 27 28 29 BUN 25* 25* 19* CREATININE 0.85 0.77 0.83 Recent Labs 05/17/222011 AST 18 ALT 16 ALKPHOS 118* BILITOT 0.4 BILIDIR 0.1 Recent Labs 05/21/22 0350 05/20/22 0340 05/19/22 0333 CALCIUM 8.9 9.0 8.5 MAGNESIUM 0.96 1.09* 1.17* No results for input(s): CK, TROPONINT in the last 168 hours. Pertinent Radiographic/Diagnostic Results: Right upper quadrant ultrasound: 05/18/22 IMPRESSION ?? 1. Homogeneous hepatic parenchymal echo texture without mass. No biliary dilation. Normal gallbladder. 2. 4 mm pancreatic duct is upper limits of normal. This not visualized pancreatic head. Further evaluation with pancreatic mass MRI is suggested to exclude the possibility of an occult lesion. This need not be performed on an inpatient basis. Unexpected finding. 3. Suspect duplicated nondilated right renal collecting system. Right kidney measures 12.3 cm in length. 4. Left kidney measures 10.1 cm in length without collecting system dilation. No renal cysts. Bladder collapsed. Cardiac cath: 05/19/22 Hemodynamics: Right Heart Pressures Resting: Syst Diast EDP a v m RA 7 10 6 RV 32 7 PA 31 7 22 PCW 12 16 12 Hemodynamic Profile: Profile 1 CO 5.18 CI 2.70 TPR 340 PVR 154 Technique Estimated Jefe Oximetry: Location %Sat Location %Sat Main Pulmonary Artery 66.0 Assessment: Aracelis Berkowitz is a 46 y.o. female with PMH of ASCVD s/p PCI to RCA in 09/2021 ( with residual long tubular mid LAD lesion), Ischemic cardiomyopathy ( last EF 31% on 05/13/2022), IDDM2, microcytic anemia, LLE trauma requiring fasciotomy on 02/23/2022, syncope who presented to the hospital for a staged PCI of the LAD now s/p bifurcation stent to LAD/D1 and RCA PCI for in-stent restenosis. Ongoing optimization of GDMT for HFrEF, however strongly limited by hypotension. Spironolactone added though later stopped d/t hyperkalemia. EP evaluation and TTE in 3 months after revascularization. [facility] for discharge, approval has been obtained with insurance. [facility] who provides methadone (spoke to Ruthann in the dispensary), and they are closed on Monday--typically an extra dose is given by them on Monday for the Monday dose. Plan:?? #ASCVD s/p PCI to RCA and now s/p staged PCI to long tubular mid LAD/D1 and RCA. #Ischemic cardiomyopathy: EF was 31% on 05/13/2022, chronic systolic heart failure Continue ASA, plavix, Lipitor Reduce metoprolol xl to 25 mg daily Stop spironolactone d/t hyperkalemia Empagliflozin 10 mg daily Entresto stopped previously, unable to add at this time d/t BPs Lasix 40 mg daily -188-190 is her dry weight [facility] for discharge Echo in 3 months, with EP consult to follow if EF remains low #IDDM2 Last A1c was 5.6 in 01/2022, 6.0 now On Tresciba, Victoza, Jardiance at home Continue Jardiance 10 mg daily (HF dosing) Meal associated and correction insulin Continue gabapentin Lantus 10 units daily DM management consult appreicated ?? #Chronic pain syndrome: Opioid use with dependence Continue methadone 100 mg daily, confirmed at her methadone clinic Tylenol standing Lidoderm patch x 2 to lower back (aware these won't be used for home)?? Heating pad/cooling pad available #Nicotine dependence, 1/2 PPD Encouraged about smoking cessation Nicotine patch available ?? #GERD Continue pantoprazole ?? #Hx of Iron deficiency Anemia Continue ferrous sulfate ? #Routine Code Status: Full Diet: Cardiac/diabetic DVT PPx: SQH Discussed with MD Sharmin Horn APRN Cardiovascular Medicine 05/21/2022 Associated attestation - Hernán Mariscal MD - 05/22/2022 7:09 AM EDT I have seen the patient and reviewed the advanced practice provider's above history and I agree withthe details as written. The assessment and plan were formulated in discussion with me and I agree with them as documented. Opal Chan RN - 05/20/2022 11:02 PM EDT OUTCOME EVALUATION NOTE: OUTCOME SUMMARY: Alert and oriented x4 Soft BP's, on RA. 2L NC at HS Physical assessment as documented. C/O chest pain. notified. Nitro ointment ordered. Pain subsided, not given Scheduled meds given per NOV. PLAN MOVING FORWARD: Discharge planning Monitor VS, labs, tele, I/O's, BS INDIVIDUALIZED FALL PREVENTION INTERVENTIONS: Patient-specific fall risk factors per assessment: [current deficits]: Generalized weakness, hospital environment Assistance [level of assistance required for transfers and ambulation]: Independent to standby Supervision [direct monitoring required during toileting and ADLs]: independent Surveillance [continuous indirect monitoring]: Call gonsales within reach, room near nurses station, masimo on, hourly rounding utilized. Patient-specific fall prevention interventions for sensory deficits provided, if applicable: As above Jyothi Powell, RN - 05/20/2022 3:26 PM EDT Pt complained of 9/10 CP after walking in the pan. VS completed BP 87/52. Mary Wray APRN notified. No new orders at this time. Continue to monitor Joy Munoz APRN - 05/20/2022 1:47 PM EDT Images from the original note were not included. Follow Up Diabetes Consult Patient Interview December wanting to walk though asking for some breakthrough pain medication prior to any attempt at ambulation. She is concerned that she will be discharged before she knows how her body will respond to any cardiac med changes. She believes they want her to discharge tomorrow. Awaiting Life vest. Continues to graze at her food selections. She reports that she has contacted her insurance and primary care provider and will be able to have CGM covered though pharmacy benefit. PCP will prescribe. Objective Temp: [36.4 ??C (97.5 ??F)-37 ??C (98.6 ??F)] Heart Rate: [65-79] Resp: [15-18] BP: (90-104)/(51-69) SpO2: [95 %-99 %] Heart Rate from SpO2: [64 bpm-69 bpm] Current Regimen from previous note 1. Lantus 8 units qd 2. Meal-associated Lispro 1unit: 10 gm carb ratio for each meal 3. Correction Lispro based on a correction factor of 40 4. Diet:cardiac carb control 60/ 5. Monitoring: Q4 ?? Discharge Considerations: Medications - Outpatient treatment regimen recommendations pending based on the hospital course. Monitoring - continue BG tid ac & hs, Have perinatal educator reach out to determine if CGM covered for her Diet - low fat/low carb diet Exercise - weight-bearing exercise 30 min/day, as tolerated Recent Glucose Levels Recent Labs 05/20/22 1127 05/20/22 0730 05/20/22 0431 05/20/22 0327 05/20/22 0025 05/19/22 2035 05/19/22 1807 05/19/22 1241 05/19/22 0731 05/19/22 0410 05/19/22 0015 05/18/222020 POCGLU 144 233* 186 165 137 145 130 144 235* 250* 147 184 ASSESSMENT December??is a 46 y.o.??female??with PMH of ASCVD s/p PCI to RCA in 09/2021 ( with residual long tubular mid LAD lesion), Ischemic cardiomyopathy ( last EF 31% on 05/13/2022), IDDM2, microcytic anemia, LLE trauma requiring fasciotomy on 02/23/2022, syncope who presented to the hospital for a staged PCI of the LAD??now s/p bifurcation stent to LAD/D1 and RCA PCI for in-stent restenosis.? Lantus increased to 10 units this morning with fasting BG of 186. Still can not explain the very large disparity in her insulin requirements during admission vs. Home dosing. I feel she would greatly benefit from CGM use as this would help to clarify if she is having hypoglycemia. She has reached out to PCP and insurance to have a Yasir 2 covered. She is aware that she will also need a reader as her phone is not compatible as a reader. PLAN Lantus:10 units Lispro 1:10 insulin to carbohydrate ratio Lispro for correction q 4 hours based on a correction factor of 40 Diet cardiac choiced 60/60/75 Monitoring: Q 4 Discharge Considerations: She will follow up with PCP for Yasir 2 CGM plus reader Review importance of site rotation for insulin administration, avoiding area of lipohypertrophy on abdomen She should start back on insulin dosing identified during hospital admission NOT HER HOME DOSING Joy Munoz APRN [facility] Endocrinology Diabetes Management Pager [phone] 20 minutes of this 35 minute visit was spent with the patient in counseling on diabetes and treatment plan, reviewing all glucose and insulin data as well as relevant laboratory results with the patient, and coordination of care on the inpatient unit including nursing and primary team. Mary Wray APRN - 05/20/2022 12:17 PM EDT Images from the original note were not included. Inpatient Cardiology Progress Note Patient Name: Aracelis Sho Service: DIRECTOR OF PARTNERSHIPS / PA Responsible Attending: Hernán Mariscal MD Reason for continued hospitalization: Evaluation and management of staged PCI with bifurcating stent to LAD/DI and instent restenois of RCA Medication adjustment for chronic systolic heart failure LifeVEST prior to discharge Active Problems: Active Hospital Problems Diagnosis ??? Ischemic cardiomyopathy ??? ASCVD (arteriosclerotic cardiovascular disease) Resolved Hospital Problems No resolved problems to display. Interval History: Patient sleeping upon entering the room. Awoke and complained of pack pain. Due for morning methadone. Heating pad slightly helpful. Out of bed ambulating around the room. Review of Systems: Review of Systems Cardiovascular: Positive for chest pain (off and on). Musculoskeletal: Positive for back pain. All other systems reviewed and are negative. Telemetry: HR: 50-95 sinus bradycardia, sinus rhythm Meds: Scheduled Meds: ??? insulin glargine (Lantus;Semglee) (100 unit/mL) subcutaneous injection 10 Units Subcutaneous Daily ??? furosemide 40 mg Oral Daily ??? ferrous sulfate EC 325 mg Oral BID WC ??? lidocaine 2 patch Transdermal Q24H And ??? lidocaine 2 patch Transdermal Q24H ??? isosorbide mononitrate CR 15 mg Oral QAM ??? gabapentin 600 mg Oral Nightly ??? methadone (Methadose) oral liquid 100 mg Oral Daily ??? empagliflozin 10 mg Oral Daily ??? metoprolol succinate XL 25 mg Oral Daily ??? insulin lispro 0-8 Units Subcutaneous TID WC ??? insulin lispro 1-4 Units Subcutaneous Q4H ALAN ??? pantoprazole EC 40 mg Oral Daily ??? aspirin EC 81 mg Oral Daily ??? clopidogreL 75 mg Oral Daily ??? ipratropium-albuteroL 3 mL Nebulization Q6H ??? atorvastatin 80 mg Oral QPM ??? colchicine 0.6 mg Oral BID ??? dextromethorphan 15 mg Oral Q6H ??? folic acid 1,000 mcg Oral Daily ??? magnesium oxide 400 mg Oral BID ??? heparin (porcine) 5,000 Units Subcutaneous Q8H ALAN ??? nicotine 1 patch Transdermal Daily And ??? Patch Verification 1 patch Transdermal BID And ??? nicotine 1 patch Transdermal Daily ??? acetaminophen 975 mg Oral Q6H Continuous Infusions: PRN Meds:benzocaine, nitroGLYcerin, glucose 40% oral geL OR dextrose 10% OR glucagon, albuteroL Physical Exam: Vital Signs: Last value Range last 24 hrs Temperature Temp: 37 ??C (98.6 ??F) Temp: [36.4 ??C (97.5 ??F)-37 ??C (98.6 ??F)] Heart Rate Heart Rate: 79 Heart Rate: [65-79] Blood Pressure BP: 104/64 BP: (90-104)/(51-69) Respiratory Rate Resp: 16 Resp: [15-18] SpO2 SpO2: 95 % SpO2: [95 %-99 %] Intake/Output Summary (Last 24 hours) at 05/20/2022 1217 Last data filed at 05/20/2022 0439 Gross per 24 hour Intake -- Output 2350 ml Net -2350 ml Patient Vitals for the past 168 hrs: Weight 05/20/22 0624 86.2 kg (190 lb 0.6 oz) 05/19/22 0500 85.7 kg (188 lb 15 oz) 05/18/22 0348 83.6 kg (184 lb 4.9 oz) 05/17/22 1238 83.6 kg (184 lb 3.2 oz) Physical Exam Vitals and nursing note reviewed. Constitutional: General: She is not in acute distress. Appearance: She is well-developed. She is not diaphoretic. HENT: Head: Normocephalic and atraumatic. Eyes: General: Right eye: No discharge. Left eye: No discharge. Cardiovascular: Rate and Rhythm: Normal rate and regular rhythm. Pulses: Intact distal pulses. Heart sounds: Normal heart sounds. No murmur heard. No friction rub. No gallop. Pulmonary: Effort: Pulmonary effort is normal. No respiratory distress. Breath sounds: Normal breath sounds. No wheezing or rales. Abdominal: General: Bowel sounds are normal. There is no distension. Palpations: Abdomen is soft. Tenderness: There is no rebound. Musculoskeletal: General: Normal range of motion. Cervical back: Normal range of motion and neck supple. Right lower leg: No edema. Left lower leg: No edema. Skin: General: Skin is warm and dry. Comments: Multiple tattoos, scars present on upper extremities. Back tattoos also present. Neurological: Mental Status: She is alert and oriented to person, place, and time. Psychiatric: Behavior: Behavior normal. Lab Comments: Recent Labs 05/20/2233905/19/2233205/17/222011 WBC 7.4 6.9 9.8* HGB 13.9 13.9 15.1 HCT 43.7 42.7 44.9 PLATELET 295 300 319 No results for input(s): INR in the last 168 hours. Recent Labs 05/20/2233905/19/2233205/17/222011 NA 142 142 140 K 5.5* 4.8 3.5 CL 107 106 102 CO2 28 29 26 BUN 25* 19* 15 CREATININE 0.77 0.83 0.68* Recent Labs 05/17/222011 AST 18 ALT 16 ALKPHOS 118* BILITOT 0.4 BILIDIR 0.1 Recent Labs 05/20/2233905/19/22 0333 05/17/222011 CALCIUM 9.0 8.5 8.6 MAGNESIUM 1.09* 1.17* 1.00 No results for input(s): CK, TROPONINT in the last 168 hours. Pertinent Radiographic/Diagnostic Results: I have independently visualized the following studies: ECG: HR 66 sinus rhythm with no acute changes Right upper quadrant ultrasound: 05/18/22 IMPRESSION ?? 1. Homogeneous hepatic parenchymal echo texture without mass. No biliary dilation. Normal gallbladder. 2. 4 mm pancreatic duct is upper limits of normal. This not visualized pancreatic head. Further evaluation with pancreatic mass MRI is suggested to exclude the possibility of an occult lesion. This need not be performed on an inpatient basis. Unexpected finding. 3. Suspect duplicated nondilated right renal collecting system. Right kidney measures 12.3 cm in length. 4. Left kidney measures 10.1 cm in length without collecting system dilation. No renal cysts. Bladder collapsed. Cardiac cath: 05/19/22 Hemodynamics: Right Heart Pressures Resting: Syst Diast EDP a v m RA 7 10 6 RV 32 7 PA 31 7 22 PCW 12 16 12 Hemodynamic Profile: Profile 1 CO 5.18 CI 2.70 TPR 340 PVR 154 Technique Estimated Jefe Oximetry: Location %Sat Location %Sat Main Pulmonary Artery 66.0 Assessment: Aracelis Berkowitz is a 46 y.o. female with PMH of ASCVD s/p PCI to RCA in 09/2021 ( with residual long tubular mid LAD lesion), Ischemic cardiomyopathy ( last EF 31% on 05/13/2022), IDDM2, microcytic anemia, LLE trauma requiring fasciotomy on 02/23/2022, syncope who presented to the hospital for a staged PCI of the LAD now s/p bifurcation stent to LAD/D1 and RCA PCI for in-stent restenosis. SL nitroglycerin this am for chest pain with some hypotension down to the 70s reported. Will work on optimizing medications, potassium up to 5.5 today so spironolactone will be discontinued. RUQ ultrasound as above, with outpatient MRI of pancreas recommended. EP evaluation in 3 months after revascularization. LifeVEST for discharge, approval has been obtained with insurance. Dry weight at [facility] 188-190 pounds. Will start lasix 40 mg daily today and follow weight for tomorrow [facility] who provides methadone (spoke to Ruthann in the dispensary), and they are closed on Monday--typically an extra dose is given by them on Monday for the Monday dose. Plan:?? ASCVD s/p PCI to RCA and now s/p staged PCI to long tubular mid LAD/D1 and RCA. Ischemic cardiomyopathy: EF was 31% on 05/13/2022, chronic systolic heart failure ProBNP 186 Continue ASA, plavix, Lipitor Reduce metoprolol xl to 25 mg daily Echo in 3 months, with EP consult to follow if EF remains low Stop spironolactone 12.5 mg today Empagliflozin 10 mg daily Goal to get back on Entresto dosing that was stopped in January 2022 RHC done assessed volume status-see report above Less diuretic needed going forward, lasix 40 mg started today 188-190 is her dry weight LifeVEST for discharge, EP team aware, order placed and approved, awaiting fitting IDDM2 On Tresciba, Victoza, Jardiance at home Continue Jardiance 10 mg daily (HF dosing) Meal associated and correction insulin Will get help from DM management consult given home Tresciba and Victoza Continue gabapentin Last A1c was 5.6 in 01/2022, 6.0 now Lantus 12 units daily ?? Chronic pain syndrome: Opioid use with dependence Continue methadone 100 mg daily, confirmed at her methadone clinic Tylenol standing Add Lidoderm patch x 2 to lower back (aware these won't be used for home)?? Heating pad/cooling pad available Nicotine dependence: Smokes 1/2 PPD Encouraged about smoking cessation Nicotine patch available ?? GERD Continue pantoprazole ?? Hx of Iron deficiency Anemia Continue ferrous sulfate ? Code Status: Full Diet: Cardiac/diabetic DVT PPx: SQH Discussed with MD Mary Horn APRN Pager [phone] 05/20/2022 Associated attestation - Hernán Mariscal MD - 05/21/2022 7:21 AM EDT I have seen the patient and reviewed the advanced practice provider's above history and I agree withthe details as written. The assessment and plan were formulated in discussion with me and I agree with them as documented. Mary Wray APRN - 05/19/2022 10:19 AM EDT Images from the original note were not included. Inpatient Cardiology Progress Note Patient Name: December Service: DIRECTOR OF PARTNERSHIPS / PA Responsible Attending: Tameka Chu MD Reason for continued hospitalization: Evaluation and management of staged PCI with bifurcating stent to LAD/DI and instent restenois of RCA Medication adjustment for chronic systolic heart failure Active Problems: Active Hospital Problems Diagnosis ??? Ischemic cardiomyopathy ??? ASCVD (arteriosclerotic cardiovascular disease) Resolved Hospital Problems No resolved problems to display. Interval History: Patient is tired this morning. States that this is an issue for her at home and that she was told that stents and maybe ICD would be helpful. Aware of contact to the [facility] for methadone discussion. Review of Systems: Review of Systems Constitutional: Positive for fatigue (I am so tired all the time, Dr. Singleton said the stents would help). Respiratory: Negative for shortness of breath. Cardiovascular: Negative for chest pain. Skin: Right radial artery is tender. All other systems reviewed and are negative. Telemetry: HR: 67-95 sinus rhythm Meds: Scheduled Meds: ??? [MAR Hold] isosorbide mononitrate CR 15 mg Oral QAM ??? [MAR Hold] methadone (Methadose) oral liquid 100 mg Oral Daily ??? [MAR Hold] spironolactone 12.5 mg Oral Daily ??? [MAR Hold] empagliflozin 10 mg Oral Daily ??? [MAR Hold] metoprolol succinate XL 25 mg Oral Daily ??? [MAR Hold] insulin lispro 0-8 Units Subcutaneous TID WC ??? [MAR Hold] insulin glargine (Lantus;Semglee) (100 unit/mL) subcutaneous injection 8 Units Subcutaneous Daily ??? [MAR Hold] insulin lispro 1-4 Units Subcutaneous Q4H ALAN ??? [MAR Hold] pantoprazole EC 40 mg Oral Daily ??? aspirin EC 81 mg Oral Daily ??? clopidogreL 75 mg Oral Daily ??? [MAR Hold] ipratropium-albuteroL 3 mL Nebulization Q6H ??? [MAR Hold] atorvastatin 80 mg Oral QPM ??? [MAR Hold] colchicine 0.6 mg Oral BID ??? [MAR Hold] dextromethorphan 15 mg Oral Q6H ??? [MAR Hold] ferrous sulfate EC 325 mg Oral Every Other Day ??? [MAR Hold] folic acid 1,000 mcg Oral Daily ??? [MAR Hold] gabapentin 1,200 mg Oral Nightly ??? [MAR Hold] magnesium oxide 400 mg Oral BID ??? [MAR Hold] potassium chloride ER 20 mEq Oral Daily ??? [MAR Hold] heparin (porcine) 5,000 Units Subcutaneous Q8H ALAN ??? [NOV Hold] nicotine 1 patch Transdermal Daily And ??? [NOV Hold] Patch Verification 1 patch Transdermal BID And ??? [NOV Hold] nicotine 1 patch Transdermal Daily ??? [NOV Hold] acetaminophen 975 mg Oral Q6H Continuous Infusions: PRN Meds:midazolam (PF), fentaNYL (PF), [NOV Hold] nitroGLYcerin, [NOV Hold] glucose 40% oral geL OR [NOV Hold] dextrose 10% OR [NOV Hold] glucagon, [NOV Hold] albuteroL Physical Exam: Vital Signs: Last value Range last 24 hrs Temperature Temp: 36 ??C (96.8 ??F) Temp: [36 ??C (96.8 ??F)-37 ??C (98.6 ??F)] Heart Rate Heart Rate: 95 Heart Rate: [74-97] Blood Pressure BP: 94/61 BP: (80-121)/(48-71) Respiratory Rate Resp: 15 Resp: [15-18] SpO2 SpO2: 95 % SpO2: [95 %-100 %] No intake or output data in the 24 hours ending 05/19/22 1019 Patient Vitals for the past 168 hrs: Weight 05/19/22 0500 85.7 kg (188 lb 15 oz) 05/18/22 0348 83.6 kg (184 lb 4.9 oz) 05/17/22 1238 83.6 kg (184 lb 3.2 oz) Physical Exam Vitals and nursing note reviewed. Constitutional: General: She is not in acute distress. Appearance: She is well-developed. She is not diaphoretic. HENT: Head: Normocephalic and atraumatic. Eyes: General: Right eye: No discharge. Left eye: No discharge. Cardiovascular: Rate and Rhythm: Normal rate and regular rhythm. Pulses: Intact distal pulses. Heart sounds: Normal heart sounds. No murmur heard. No friction rub. No gallop. Pulmonary: Effort: Pulmonary effort is normal. No respiratory distress. Breath sounds: Normal breath sounds. No wheezing or rales. Abdominal: General: Bowel sounds are normal. There is no distension. Palpations: Abdomen is soft. Tenderness: There is no rebound. Musculoskeletal: General: Normal range of motion. Cervical back: Normal range of motion and neck supple. Right lower leg: No edema. Left lower leg: No edema. Comments: Right wrist is clean, dry and intact. No hematoma or ooze. Radial pulse is present. Intact color, sensation and motion. Capillary refill is under 2 seconds. Skin: General: Skin is warm and dry. Neurological: Mental Status: She is alert and oriented to person, place, and time. Psychiatric: Behavior: Behavior normal. Lab Comments: Recent Labs 05/19/2233205/17/22201105/13/22 1136 WBC 6.9 9.8* 10.1* HGB 13.9 15.1 15.1 HCT 42.7 44.9 44.4 PLATELET 300 319 342 No results for input(s): INR in the last 168 hours. Recent Labs 05/19/22 03305/17/22201105/13/22 1136 NA 142 140 140 K 4.8 3.5 3.5 CL 106 102 95* CO2 29 26 33* BUN 19* 15 25* CREATININE 0.83 0.68* 0.80 Recent Labs 05/17/222011 AST 18 ALT 16 ALKPHOS 118* BILITOT 0.4 BILIDIR 0.1 Recent Labs 05/19/2233205/17/22201105/13/22 1136 CALCIUM 8.5 8.6 9.3 MAGNESIUM 1.17* 1.00 -- No results for input(s): CK, TROPONINT in the last 168 hours. Pertinent Radiographic/Diagnostic Results: I have independently visualized the following studies: ECG: HR 76 sinus rhythm with no acute changes Right upper quadrant ultrasound: 05/18/22 IMPRESSION ?? 1. Homogeneous hepatic parenchymal echotexture without mass. No biliary dilation. Normal gallbladder. 2. 4 mm pancreatic duct is upper limits of normal. This not visualized pancreatic head. Further evaluation with pancreatic mass MRI is suggested to exclude the possibility of an occult lesion. This need not be performed on an inpatient basis. Unexpected finding. 3. Suspect duplicated nondilated right renal collecting system. Right kidney measures 12.3 cm in length. 4. Left kidney measures 10.1 cm in length without collecting system dilation. No renal cysts. Bladder collapsed. Assessment: Aracelis Sho is a 46 y.o. female with PMH of ASCVD s/p PCI to RCA in 09/2021 ( with residual long tubular mid LAD lesion), Ischemic cardiomyopathy ( last EF 31% on 05/13/2022), IDDM2, microcytic anemia, LLE trauma requiring fasciotomy on 02/23/2022, syncope who presented to the hospital for a staged PCI of the LAD now s/p bifurcation stent to LAD/D1 and RCA PCI for in-stent restenosis. SL nitroglycerin this am for chest pain with some hypotension down to the 70s reported. Will work on optimizing medications. RUQ ultrasound today at 4 pm to be NPO for 8 hours. EP evaluation in 3 months after revascularization. RUQ ultrasound as above, outpatient MRI of pancreas recommended. LifeVEST for discharge. RHC today given weight fluctuation and low blood pressures. Plan:?? ASCVD s/p PCI to RCA and now s/p staged PCI to long tubular mid LAD/D1 and RCA. Ischemic cardiomyopathy: EF was 31% on 05/13/2022, chronic systolic heart failure ProBNP 186 Continue ASA, plavix, Lipitor Reduce metoprolol xl to 25 mg daily Echo in 3 months, with EP consult to follow if EF remains low Continue spironolactone 12.5 mg today Empagliflozin 10 mg daily Goal to get back on Entresto dosing that was stopped in January 2022 RHC done today to assess volume status-wedge of 11, CI 2.7, final report pending No diuretics needed today, 188-190 is her ideal weight LifeVEST for discharge, EP team aware IDDM2 On Tresciba, Victoza, Jardiance at home Continue Jardiance 10 mg daily (HF dosing) Meal associated and correction insulin Will get help from DM management consult given home Tresciba and Victoza Continue gabapentin Last A1c was 5.6 in 01/2022, will recheck today Lantus 8 units daily Will check q 4 hours ?? Chronic pain syndrome: Opioid use with dependence Continue methadone 100 mg daily, confirmed at her methadone clinic Tylenol standing ?? Nicotine dependence: Smokes 1/2 PPD Encouraged about smoking cessation Nicotine patch available ?? GERD Continue pantoprazole ?? Hx of Iron deficiency Anemia Continue ferrous sulfate ? #Code Status: Full #Diet: Cardiac/diabetic #DVT PPx: SQH Discussed with Tameka Chu MD Maryrosa Wray, DAMIÁN Pager [phone] 05/19/2022 Associated attestation - Tameka Neal MD - 05/19/2022 11:10 AM EDT Cardiology Attending Attestation I was the assigned attending community relations rep for this clinical encounter. For the purposes of billing, I was directly involved in the clinical decision making and the plan of care is reasonable. Please see my separate attending note from today for additional details. Tameka Kulkarni. MD John Paul MPH [facility] Attending 05/19/2022, 11:10 AM Giovanna Hammonds RN - 05/19/2022 9:31 AM EDT Provider Team recommends that patient go home with a Life Vest. Care Management Team will submit appropriate documentation for prior authorization. Estimated Date of Discharge: 05/23/2022 [employer] to fax the following to [facility]: FAX: [phone] LIFEVEST Order Form(CM to have this scanned and emailed to [employer]) Facesheet H&P EP Note with & ZOLL Recommendation EP Study procedure note. Cardiac cath Report OR Echo OR Cardiac MRI Ejection Fraction<35% James Chaves MD - 05/19/2022 9:07 AM EDT BRIEF EP NOTE 05/19/22 Reason for Consult: Consideration of ICD, Plan for LifeVest Bridging PROBLEM LIST: Patient Active Problem List Diagnosis ??? Ischemic cardiomyopathy ??? ASCVD (arteriosclerotic cardiovascular disease) ??? Myositis ??? NSTEMI (non-ST elevated myocardial infarction) ??? Dislocation of left shoulder joint, chronic, recurrent, with multiple surgeries. Subjective: Aracelis Berkowitz is a 46 y.o. female with hx of ASCVD s/p NSTEMI in 09/2021 with PCI to RCA in 09/2021 (with residual long tubular mid LAD lesion), ischemic cardiomyopathy LVEF 31% as of 05/13/2022 (previously 45% in December 2021), IDDM2, microcytic anemia, and syncope who presented for staged PCI of the LAD.She underwent successful revascularization on 05/17/22. She has also been evaluated for ICD. The planis to optimize GDMT and repeat TTE in 3 months to determined need for ICD. Patient agrees with plan to pursue Lifevest at this time. Objective: Patient Vitals for the past 8 hrs: BP Temp Temp src Pulse Resp SpO2 Weight 05/19/22 0731 (!) 86/58 -- -- -- 17 95 % -- 05/19/22 0700 121/71 -- -- 97 -- 98 % -- 05/19/22 0500 91/49 36 ??C (96.8 ??F) Oral -- 18 98 % 85.7 kg (188 lb 15 oz) Physical Exam: Patient out of room for test at this time Labs: reviewed Cardiovascular Studies: Transthoracic Echocardiogram 05/13/2022 Interpretation Summary: Left ventricular systolic function is moderately reduced. The left ventricular ejection fraction is 31% by Jaramillo's biplane. There are segmental wall motion Abnormalities. The right ventricle is of normal size. Right ventricular systolic function is normal. ?? Cardiac Catheterization 05/17/2022 Summary: Coronary Angiography: Dominance: Right Left Main There was mild diffuse (<=25% stenosis) disease of the entire vessel segment of the left main artery. Left Anterior Descending. There was a 70% eccentric long segmental stenosis of the proximal segment of the left anterior descending artery (LAD). The LAD was moderate in size. There was a 95% calcified single discrete stenosis of the ostial segment of the first diagonal branch (Diagonal 1) of the LAD. The Diagonal 1 was moderate in size. Left Circumflex There was mild diffuse (<=25% stenosis) disease of the entire vessel segment of the left circumflex artery (LCX). Right Coronary Artery There was a 70% single discrete stenosis of the distal segment of the right coronary artery (RCA). The RCA was moderate in size. Conclusions: * Two vessel coronary artery disease (LAD and RCA) * Successful stent insertion of the ostial D1 lesion * Successful stent insertion of the proximal LAD lesion * Successful stent insertion of the distal RCA lesion * See Dual Antiplatelet (DAPT) Recommendations above Current Medications: ??? isosorbide mononitrate CR (Imdur) tablet 15 mg ??? nitroGLYcerin (Nitrostat) disintegrating tablet 0.4 mg ??? methadone (Dolophine) (10 mg/mL) oral liquid 100 mg ??? spironolactone (Aldactone) tablet 12.5 mg ??? empagliflozin (Jardiance) tablet 10 mg ??? metoprolol succinate XL (Toprol-XL) tablet 25 mg ??? glucose (Glutose) 40% oral geL OR dextrose 10% infusion OR glucagon (Glucagen) (1 mg/mL)injection solution 1 mg ??? insulin lispro (HumaLOG;Admelog) (100 unit/mL) subcutaneous injection vial 0-8 Units ??? insulin glargine-ygfn (Semglee) (100 unit/mL) subcutaneous injection vial 8 Units ??? POCT Fingerstick Glucose AND insulin lispro (HumaLOG;Admelog) (100 unit/mL) subcutaneous injection vial 1-4 Units ??? pantoprazole EC (Protonix) tablet 40 mg ??? aspirin EC tablet 81 mg ??? clopidogreL (Plavix) tablet 75 mg ??? ipratropium-albuteroL (Duoneb) 0.5 mg-3 mg(2.5 mg base)/3 mL nebulizer solution 3 mL ??? albuteroL (Proventil) nebulizer solution 2.5 mg ??? atorvastatin (Lipitor) tablet 80 mg ??? colchicine (Colcrys) tablet 0.6 mg ??? dextromethorphan (Robitussin) capsule 15 mg ??? ferrous sulfate EC tablet 325 mg ??? folic acid (Folvite) tablet 1,000 mcg ??? gabapentin (Neurontin) capsule 1,200 mg ??? magnesium oxide (Mag-Ox) tablet 400 mg ??? potassium chloride ER (K-Dur/Klor-Con) tablet 20 mEq ??? heparin (porcine) (5,000 units/1 mL) subcutaneous injection 5,000 Units ??? nicotine (Nicoderm CQ) 14 mg/24 hr patch 14 mg AND nicotine (NICODERM CQ) 14 mg/24 hr patch Patch Verification AND nicotine (NICODERM CQ) 14 mg/24 hr patch Patch Removal ??? acetaminophen (Tylenol) tablet 975 mg Assessment & Plan: Aracelis Berkowitz is a 46 y.o. female with hx of ASCVD s/p NSTEMI in 09/2021 with PCI to RCA in 09/2021, ischemic cardiomyopathy LVEF 31% as of 05/13/2022, IDDM2 and syncope who underwent staged PCI of the LAD. Treatment Plan: Patient has been revascularized. She will continue guidelines directed medical therapy for 3 months.Primary team and patient wish to proceed with LifeVest bridging. Lifevest order submitted today. [facility] Life Vest Order has been submitted today with the following details: - estimated length of need: 4 months - reason for life vest ischemic cardiomyopathy/hx of OR with EF < 35% - Life vest default settings: VT heart rate threshold 150 bpm; VF heart rate threshold 200 bpm; treatment energy 150 joules all five shocks. Gita Krishnan MD Supervisor Channel Process, PGY4 Pager [phone] The EP team will facilitate wearable defibrillator therapy. James Chaves MD [facility] Cardiac Electrophysiology 05/25/2022 8:00 AM Tameka Neal MD - 05/19/2022 7:27 AM EDT Cardiology Service Attending Daily Progress Note Patient: Aracelis Berkowitz : 1975 Date of Admission: 05/17/2022 LOS: 2 Please see today's full progress note from [facility] for full details but in brief: Interval Events: HR 70-80's, BP 80-90's/50's WGT 184-->188 I/O not accurate CBC stable K 4.8, Cre 0.83 Current Medications: Scheduled Meds: ??? methadone (Methadose) oral liquid 100 mg Oral Daily ??? spironolactone 12.5 mg Oral Daily ??? empagliflozin 10 mg Oral Daily ??? metoprolol succinate XL 25 mg Oral Daily ??? insulin lispro 0-8 Units Subcutaneous TID WC ??? insulin glargine (Lantus;Semglee) (100 unit/mL) subcutaneous injection 8 Units Subcutaneous Daily ??? insulin lispro 1-4 Units Subcutaneous Q4H ALAN ??? pantoprazole EC 40 mg Oral Daily ??? ketorolac 7.5 mg Intravenous Q6H ??? aspirin EC 81 mg Oral Daily ??? clopidogreL 75 mg Oral Daily ??? ipratropium-albuteroL 3 mL Nebulization Q6H ??? atorvastatin 80 mg Oral QPM ??? colchicine 0.6 mg Oral BID ??? dextromethorphan 15 mg Oral Q6H ??? ferrous sulfate EC 325 mg Oral Every Other Day ??? folic acid 1,000 mcg Oral Daily ??? gabapentin 1,200 mg Oral Nightly ??? magnesium oxide 400 mg Oral BID ??? potassium chloride ER 20 mEq Oral Daily ??? heparin (porcine) 5,000 Units Subcutaneous Q8H ALAN ??? nicotine 1 patch Transdermal Daily And ??? Patch Verification 1 patch Transdermal BID And ??? nicotine 1 patch Transdermal Daily ??? acetaminophen 975 mg Oral Q6H Continuous Infusions: PRN Meds:nitroGLYcerin, glucose 40% oral geL OR dextrose 10% OR glucagon, albuteroL Home Medications: No current facility-administered medications on file prior to encounter. Current Outpatient Medications on File Prior to Encounter Medication Sig Dispense Refill ??? methadone (Dolophine) 10 mg Tablet Take 100 mg by mouth every 8 hours. Methadone clinic ??? torsemide (Demadex) 20 mg Tablet Take 20-40 mg by mouth 2 times daily. ??? cetirizine (ZyrTEC) 10 mg Tablet Take 10 mg by mouth daily as needed. ??? colchicine (Colcrys) 0.6 mg Tablet Take 0.6 mg by mouth 2 times daily. ??? Jardiance 10 mg Tablet Take 10 mg by mouth daily. ??? fluticasone propionate (Flonase) 50 mcg/actuation Magnolia, Suspension as needed. ??? folic acid (Folvite) 1 mg Tablet Take 1,000 mcg by mouth daily. ??? humaLOG KwikPen 100 unit/mL Insulin Pen as needed. ??? potassium chloride ER (K-Dur/Klor-Con) 20 mEq Tab Sust.Rel. Particle/Crystal TAKE ONE TABLET BY MOUTH EVERY DAY FOR 10 DAYS ??? ondansetron (Zofran) 4 mg Tablet Take 1-2 tablets by mouth every 8 hours as needed. 20 tablet 0 ??? acetaminophen (Tylenol) 500 mg Tablet Take 2 tablets by mouth every 6 hours. (Patient taking differently: Take 1,000 mg by mouth as needed.) 30 tablet 1 ??? Insulin Tresiba FlexTouch U-200 200 unit/mL (3 mL) Insulin Pen Inject 10 Units subcutaneously daily. Indications: type 2 diabetes mellitus 9 mL 3 ??? liraglutide (VICTOZA) 0.6 mg/0.1 mL (18 mg/3 mL) Pen Injector Inject 1.8 mg subcutaneously daily. 30 mL 0 ? ? Blood Pressure Kit Med & Lrg Kit 1 Product by [employer].(Non-Drug; Combo Route) route 2 times daily. 1 kit 0 ??? aspirin EC 81 mg Tablet, Delayed Release (E.C.) Take 1 tablet by mouth daily. 30 tablet 3 ??? atorvastatin (Lipitor) 80 mg Tablet Take 1 tablet by mouth every evening. 90 tablet 3 ??? clopidogreL (Plavix) 75 mg Tablet Take 1 tablet by mouth daily. 90 tablet 3 ??? ferrous sulfate EC 325 mg (65 mg iron) Tablet, Delayed Release (E.C.) Take 1 tablet by mouth every other day. (Patient taking differently: Take 325 mg by mouth 2 times daily.) 30 tablet 3 ??? magnesium oxide (Mag-Ox) 400 mg (241.3 mg magnesium) Tablet Take 1 tablet by mouth 2 times daily. 30 tablet 12 ??? metoprolol succinate XL (Toprol-XL) 50 mg Tablet Sustained Release 24 hr Take 1 tablet by mouth daily. (Patient taking differently: Take 25 mg by mouth 2 times daily.) 30 tablet 12 ??? gabapentin (Neurontin) 300 mg Capsule Take 2 capsules by mouth 2 times daily. (Patient taking differently: Take 600 mg by mouth daily.) 90 capsule 12 ??? nicotine (Nicoderm CQ) 14 mg/24 hr Patch 24 hr Change 1 patch on the skin daily. 28 patch 3 ??? pantoprazole EC (Protonix) 20 mg Tablet, Delayed Release (E.C.) Take 1 tablet by mouth daily. (Patient taking differently: Take 40 mg by mouth daily.) 90 tablet 3 ??? albuterol (PROVENTIL) 2.5 mg /3 mL (0.083 %) nebulizer solution Take 2.49 mg by nebulization every 6 hours as needed. ??? fluticasone propion-salmeteroL (ADVAIR) 500-50 mcg/dose Disk with Device Inhale 1 puff into the lungs 2 times daily. ??? dextromethorphan (Robitussin) 15 mg Capsule Take 1 capsule by mouth every 6 hours. 20 capsule 0 ??? polyethylene glycoL (Miralax) 17 gram Powder in Packet Take 17 g by mouth daily as needed. 14 each 0 ??? losartan (Cozaar) 25 mg Tablet Take 1 tablet by mouth daily. 90 tablet 3 ??? nitroGLYcerin (Nitrostat) 0.4 mg Tablet, Sublingual Place 1 tablet under the tongue every 5 minutes as needed for Chest pain. 90 tablet 12 ??? insulin needles, disposable, 32 gauge x 5/32 Needle Inject 1 each subcutaneously daily. Indications: diabetes mellitus 100 each 11 Vitals: Last value Range last 24 hrs Temperature Temp: 36 ??C (96.8 ??F) Temp: [36 ??C (96.8 ??F)-37 ??C (98.6 ??F)] Heart Rate Heart Rate: 74 Heart Rate: [74-87] Blood Pressure BP: 91/49 BP: (80-91)/(48-63) Respiratory Rate Resp: 18 Resp: [17-18] SpO2 SpO2: 98 % SpO2: [97 %-100 %] Weight: Patient Vitals for the past 168 hrs: Weight 05/19/22 0500 85.7 kg (188 lb 15 oz) 05/18/22 0348 83.6 kg (184 lb 4.9 oz) 05/17/22 1238 83.6 kg (184 lb 3.2 oz) Weight change: 2.147 kg (4 lb 11.8 oz) In/Out: Intake/Output Summary (Last 24 hours) at 05/19/2022 8635 Last data filed at 05/18/2022 0910 Gross per 24 hour Intake 100 ml Output -- Net 100 ml Physical Exam: General: NAD, sleepy Neck: JVP <10 cmH20 Cardiac: RRR w/o mrg Chest: CTAB Abdomen: Soft NT ND, +BS Extremities: WWP w/ no sig edema Neuro: AxOx3 Skin: No rashes observed Labs: Recent Results (from the past 24 hour(s)) POCT Glucose Result Value Ref Range POC Glucose 235 (H) 65 - 199 mg/dL POCT Glucose Result Value Ref Range POC Glucose 152 65 - 199 mg/dL POCT Glucose Result Value Ref Range POC Glucose 99 65 - 199 mg/dL POCT Glucose Result Value Ref Range POC Glucose 184 65 - 199 mg/dL POCT Glucose Result Value Ref Range POC Glucose 147 65 - 199 mg/dL BMP w/fasting Glucose Result Value Ref Range Glucose Fasting 268 (H) 65 - 99 mg/dL BUN 19 (H) 8 - 18 mg/dL Creatinine 0.83 0.70 - 1.20 mg/dL Sodium 142 135 - 145 mmol/L Potassium 4.8 3.5 - 5.0 mmol/L Chloride 106 98 - 107 mmol/L CO2 29 22 - 31 mmol/L Anion Gap 7 5 - 15 mmol/L Calcium 8.5 8.5 - 10.5 mg/dL Estimated GFR 88 >=60 mL/min/1.73 m?? Magnesium Result Value Ref Range Magnesium 1.17 (H) 0.69 - 1.07 mmol/L Hemogram Result Value Ref Range WBC 6.9 4.0 - 9.5 x10(3)/mcL RBC 4.70 4.00 - 5.21 x10(6)/mcL Hemoglobin 13.9 11.7 - 15.5 g/dL Hematocrit 42.7 35.7 - 45.8 % MCV 90.9 82.6 - 94.4 fL MCH 29.6 27.1 - 32.0 pg MCHC 32.6 31.7 - 35.0 g/dL Platelets 300 145 - 357 x10(3)/mcL RDWSD 49.9 (H) 37.0 - 46.0 fL RDWCV 15.0 (H) 11.5 - 14.1 % MPV 10.2 7.6 - 12.9 fL nRBC % Auto 0.0 % nRBC Abs Auto 0.000 0.000 - 0.000 x10(3)/mcL Differential, Automated Result Value Ref Range Neutrophils % 44.3 % Neutr Abs (ANC) 3.06 1.70 - 6.10 x10(3)/mcL Lymphocytes % 39.4 % Lymphocytes Abs 2.7 0.9 - 3.2 x10(3)/mcL Monocytes % 8.4 % Monocyte Abs 0.6 0.3 - 0.9 x10(3)/mcL Eosinophils % 7.4 % Eosinophils Abs 0.5 (H) 0.0 - 0.4 x10(3)/mcL Basophils % 0.4 % Basophils Abs 0.0 0.0 - 0.1 x10(3)/mcL Immature Gran % 0.10 % Anaya Gran Abs 0.01 0.00 - 0.04 x10(3)/mcL POCT Glucose Result Value Ref Range POC Glucose 250 (H) 65 - 199 mg/dL Relevant Cardiac Tests: TTE 05/13: Left ventricular systolic function is moderately reduced. The left ventricular ejection fraction is 31% by Jaramillo's biplane. There are segmental wall motion abnormalities. The right ventricle is of normal size. Right ventricular systolic function is normal. Assessment: Aracelis Berkowitz is a 46 y.o. year old female admitted on 05/17/2022 with PMH of ASCVD s/p PCI to RCA in 09/2021 (with residual long tubular mid LAD lesion), Ischemic cardiomyopathy (last EF 31% on 05/13/2022), IDDM2, microcytic anemia, LLE trauma requiring fasciotomy on 02/23/2022, syncope who presented to the hospital for a staged PCI of the LAD now s/p bifurcation stent to LAD/D1 and RCA PCI for in- stent restenosis. Admitted for eval for ICD per Dr. Singleton. Plan to optimize GDMT and repeat TTE in 3 monthsto determine need for ICD. [facility] Plan: 1. ASA, plavix, atova 2. Continue metoprolol succinate to 25mg QD 3. Continue birgit 12.5mg QD 4. Continue empa 10mg QD 5. RHC this AM 6. Stop toradol This visit lasted 35 minutes, of which 30 minutes were spent in direct discussion and counseling with the patient. Tameka Coker MD [facility] Attending 05/19/2022, 7:27 AM Tiffanie Rowe RN - 05/18/2022 7:12 PM EDT Had an intermittent chest pain and back pain radiating to her left jaw. EKG done; no significant changes. Pain medications given as ordered. Mary Wray APRN - 05/18/2022 9:26 AM EDT Images from the original note were not included. Inpatient Cardiology Progress Note Patient Name: December Service: DIRECTOR OF PARTNERSHIPS / PA Responsible Attending: Tameka Chu MD Reason for continued hospitalization: Evaluation and management of staged PCI with bifurcating stent to LAD/DI and instent restenois of RCA Medication adjustment for chronic systolic heart failure Active Problems: Active Hospital Problems Diagnosis ??? Ischemic cardiomyopathy ??? ASCVD (arteriosclerotic cardiovascular disease) Resolved Hospital Problems No resolved problems to display. Interval History: Patient is tired this morning. States that this is an issue for her at home and that she was told that stents and maybe ICD would be helpful. Aware of contact to the [facility] for methadone discussion. Review of Systems: Review of Systems Constitutional: Positive for fatigue (I am so tired all the time, Dr. Singleton said the stents would help). Respiratory: Negative for shortness of breath. Cardiovascular: Negative for chest pain. Skin: Right radial artery is tender. All other systems reviewed and are negative. Telemetry: HR: 67-95 sinus rhythm Meds: Scheduled Meds: ??? methadone (Methadose) oral liquid 100 mg Oral Daily ??? spironolactone 12.5 mg Oral Daily ??? empagliflozin 10 mg Oral Daily ??? metoprolol succinate XL 25 mg Oral Daily ??? aspirin EC 81 mg Oral Daily ??? clopidogreL 75 mg Oral Daily ??? ipratropium-albuteroL 3 mL Nebulization Q6H ??? atorvastatin 80 mg Oral QPM ??? colchicine 0.6 mg Oral BID ??? dextromethorphan 15 mg Oral Q6H ??? ferrous sulfate EC 325 mg Oral Every Other Day ??? folic acid 1,000 mcg Oral Daily ??? gabapentin 1,200 mg Oral Nightly ??? magnesium oxide 400 mg Oral BID ??? pantoprazole EC 20 mg Oral Daily ??? potassium chloride ER 20 mEq Oral Daily ??? heparin (porcine) 5,000 Units Subcutaneous Q8H ALAN ??? nicotine 1 patch Transdermal Daily And ??? Patch Verification 1 patch Transdermal BID And ??? nicotine 1 patch Transdermal Daily ??? acetaminophen 975 mg Oral Q6H Continuous Infusions: PRN Meds:nitroGLYcerin, albuteroL, ketorolac Physical Exam: Vital Signs: Last value Range last 24 hrs Temperature Temp: 36.8 ??C (98.2 ??F) Temp: [36.3 ??C (97.3 ??F)-36.8 ??C (98.2 ??F)] Heart Rate Heart Rate: 87 Heart Rate: [57-87] Blood Pressure BP: 90/57 BP: (82-130)/(50-77) Respiratory Rate Resp: 22 Resp: [12-22] SpO2 SpO2: 95 % SpO2: [93 %-98 %] Intake/Output Summary (Last 24 hours) at 05/18/2022 0930 Last data filed at 05/17/2022 2100 Gross per 24 hour Intake 520 ml Output 1200 ml Net -680 ml Patient Vitals for the past 168 hrs: Weight 05/18/22 0348 83.6 kg (184 lb 4.9 oz) 05/17/22 1238 83.6 kg (184 lb 3.2 oz) Physical Exam Vitals reviewed. Constitutional: General: She is not in acute distress. Appearance: She is well-developed. She is not diaphoretic. HENT: Head: Normocephalic and atraumatic. Eyes: General: Right eye: No discharge. Left eye: No discharge. Cardiovascular: Rate and Rhythm: Normal rate and regular rhythm. Pulses: Intact distal pulses. Heart sounds: Normal heart sounds. No murmur heard. No friction rub. No gallop. Pulmonary: Effort: Pulmonary effort is normal. No respiratory distress. Breath sounds: Normal breath sounds. No wheezing or rales. Abdominal: General: Bowel sounds are normal. There is no distension. Palpations: Abdomen is soft. Tenderness: There is abdominal tenderness (right upper quad). There is no rebound. Musculoskeletal: General: Normal range of motion. Cervical back: Normal range of motion and neck supple. Right lower leg: No edema. Left lower leg: No edema. Comments: Right wrist is clean, dry and intact. No hematoma or ooze. Radial pulse is present. Intact color, sensation and motion. Capillary refill is under 2 seconds. Skin: General: Skin is warm and dry. Neurological: Mental Status: She is alert and oriented to person, place, and time. Psychiatric: Behavior: Behavior normal. Lab Comments: Recent Labs 05/17/22201105/13/22 1136 WBC 9.8* 10.1* HGB 15.1 15.1 HCT 44.9 44.4 PLATELET 319 342 No results for input(s): INR in the last 168 hours. Recent Labs 05/17/22201105/13/22 1136 NA 140 140 K 3.5 3.5 CL 102 95* CO2 26 33* BUN 15 25* CREATININE 0.68* 0.80 Recent Labs 05/17/222011 AST 18 ALT 16 ALKPHOS 118* BILITOT 0.4 BILIDIR 0.1 Recent Labs 05/17/22201105/13/22 1136 CALCIUM 8.6 9.3 MAGNESIUM 1.00 -- No results for input(s): CK, TROPONINT in the last 168 hours. Pertinent Radiographic/Diagnostic Results: I have independently visualized the following studies: ECG: HR 76 sinus rhythm with no acute changes Right upper quadrant ultrasound: 05/18/22 Pending Assessment: Aracelis Berkowitz is a 46 y.o. female with PMH of ASCVD s/p PCI to RCA in 09/2021 ( with residual long tubular mid LAD lesion), Ischemic cardiomyopathy ( last EF 31% on 05/13/2022), IDDM2, microcytic anemia, LLE trauma requiring fasciotomy on 02/23/2022, syncope who presented to the hospital for a staged PCI of the LAD now s/p bifurcation stent to LAD/D1 and RCA PCI for in-stent restenosis. SL nitroglycerin this am for chest pain with some hypotension down to the 70s reported. Will work on optimizing medications. RUQ ultrasound today at 4 pm to be NPO for 8 hours. EP evaluation in 3 months after revascularization. Plan:?? ASCVD s/p PCI to RCA and now s/p staged PCI to long tubular mid LAD/D1 and RCA. Ischemic cardiomyopathy: EF was 31% on 05/13/2022, chronic systolic heart failure ProBNP 186 Continue ASA, plavix, Lipitor Reduce metoprolol xl to 25 mg daily Echo in 3 months, with EP consult to follow if EF remains low Start spironolactone 12.5 mg today Empagliflozin 10 mg daily Goal to get back on Entresto dosing that was stopped in January 2022 IDDM2 On Tresciba, Victoza, Jardiance at home Continue Jardiance 10 mg daily (HF dosing) Meal associated and correction insulin Will get help from DM management consult given home Tresciba and Victoza Continue gabapentin Last A1c was 5.6 in 01/2022, will recheck today Lantus 8 units daily Will check q 4 hours while NPO ?? Chronic pain syndrome: Opioid use with dependence Continue methadone 100 mg daily, confirmed at her methadone clinic Tylenol standing Toradol prn for acute pain. ?? Nicotine dependence: Smokes 1/2 PPD Encouraged about smoking cessation Nicotine patch available ?? GERD Continue pantoprazole ?? Hx of Iron deficiency Anemia Continue ferrous sulfate ? #Code Status: Full #Diet: Cardiac/diabetic #DVT PPx: SQH Discussed with MD Mary Laughlin APRN Pager [phone] 05/18/2022 Tameka Neal MD - 05/18/2022 7:57 AM EDT Cardiology Service Attending Daily Progress Note Patient: Aracelis Berkowitz : 1975 Date of Admission: 05/17/2022 LOS: 1 Please see today's full progress note from primary team for full details but in brief: Interval Events: HR 70-80's, BP 80-90/50-60 WGT 184 CBC stable K 3.5, Cre 0.68 ProBNP 186 Current Medications: Scheduled Meds: ??? methadone (Methadose) oral liquid 100 mg Oral Daily ??? aspirin EC 81 mg Oral Daily ??? clopidogreL 75 mg Oral Daily ??? ipratropium-albuteroL 3 mL Nebulization Q6H ??? atorvastatin 80 mg Oral QPM ??? colchicine 0.6 mg Oral BID ??? dextromethorphan 15 mg Oral Q6H ??? ferrous sulfate EC 325 mg Oral Every Other Day ??? folic acid 1,000 mcg Oral Daily ??? gabapentin 1,200 mg Oral Nightly ??? magnesium oxide 400 mg Oral BID ??? metoproloL tartrate 12.5 mg Oral Q6H ALAN ??? pantoprazole EC 20 mg Oral Daily ??? potassium chloride ER 20 mEq Oral Daily ??? heparin (porcine) 5,000 Units Subcutaneous Q8H ALAN ??? nicotine 1 patch Transdermal Daily And ??? Patch Verification 1 patch Transdermal BID And ??? nicotine 1 patch Transdermal Daily ??? acetaminophen 975 mg Oral Q6H Continuous Infusions: PRN Meds:nitroGLYcerin, albuteroL, ketorolac Home Medications: No current facility-administered medications on file prior to encounter. Current Outpatient Medications on File Prior to Encounter Medication Sig Dispense Refill ??? methadone (Dolophine) 10 mg Tablet Take 100 mg by mouth every 8 hours. Methadone clinic ??? torsemide (Demadex) 20 mg Tablet Take 20-40 mg by mouth 2 times daily. ??? cetirizine (ZyrTEC) 10 mg Tablet Take 10 mg by mouth daily as needed. ??? colchicine (Colcrys) 0.6 mg Tablet Take 0.6 mg by mouth 2 times daily. ??? Jardiance 10 mg Tablet Take 10 mg by mouth daily. ??? fluticasone propionate (Flonase) 50 mcg/actuation Magnolia, Suspension as needed. ??? folic acid (Folvite) 1 mg Tablet Take 1,000 mcg by mouth daily. ??? humaLOG KwikPen 100 unit/mL Insulin Pen as needed. ??? potassium chloride ER (K-Dur/Klor-Con) 20 mEq Tab Sust.Rel. Particle/Crystal TAKE ONE TABLET BY MOUTH EVERY DAY FOR 10 DAYS ??? ondansetron (Zofran) 4 mg Tablet Take 1-2 tablets by mouth every 8 hours as needed. 20 tablet 0 ??? acetaminophen (Tylenol) 500 mg Tablet Take 2 tablets by mouth every 6 hours. (Patient taking differently: Take 1,000 mg by mouth as needed.) 30 tablet 1 ??? Insulin Tresiba FlexTouch U-200 200 unit/mL (3 mL) Insulin Pen Inject 10 Units subcutaneously daily. Indications: type 2 diabetes mellitus 9 mL 3 ??? liraglutide (VICTOZA) 0.6 mg/0.1 mL (18 mg/3 mL) Pen Injector Inject 1.8 mg subcutaneously daily. 30 mL 0 ? ? Blood Pressure Kit Med & Lrg Kit 1 Product by [employer].(Non-Drug; Combo Route) route 2 times daily. 1 kit 0 ??? aspirin EC 81 mg Tablet, Delayed Release (E.C.) Take 1 tablet by mouth daily. 30 tablet 3 ??? atorvastatin (Lipitor) 80 mg Tablet Take 1 tablet by mouth every evening. 90 tablet 3 ??? clopidogreL (Plavix) 75 mg Tablet Take 1 tablet by mouth daily. 90 tablet 3 ??? ferrous sulfate EC 325 mg (65 mg iron) Tablet, Delayed Release (E.C.) Take 1 tablet by mouth every other day. (Patient taking differently: Take 325 mg by mouth 2 times daily.) 30 tablet 3 ??? magnesium oxide (Mag-Ox) 400 mg (241.3 mg magnesium) Tablet Take 1 tablet by mouth 2 times daily. 30 tablet 12 ??? metoprolol succinate XL (Toprol-XL) 50 mg Tablet Sustained Release 24 hr Take 1 tablet by mouth daily. (Patient taking differently: Take 25 mg by mouth 2 times daily.) 30 tablet 12 ??? gabapentin (Neurontin) 300 mg Capsule Take 2 capsules by mouth 2 times daily. (Patient taking differently: Take 600 mg by mouth daily.) 90 capsule 12 ??? nicotine (Nicoderm CQ) 14 mg/24 hr Patch 24 hr Change 1 patch on the skin daily. 28 patch 3 ??? pantoprazole EC (Protonix) 20 mg Tablet, Delayed Release (E.C.) Take 1 tablet by mouth daily. (Patient taking differently: Take 40 mg by mouth daily.) 90 tablet 3 ??? albuterol (PROVENTIL) 2.5 mg /3 mL (0.083 %) nebulizer solution Take 2.49 mg by nebulization every 6 hours as needed. ??? fluticasone propion-salmeteroL (ADVAIR) 500-50 mcg/dose Disk with Device Inhale 1 puff into the lungs 2 times daily. ??? dextromethorphan (Robitussin) 15 mg Capsule Take 1 capsule by mouth every 6 hours. 20 capsule 0 ??? polyethylene glycoL (Miralax) 17 gram Powder in Packet Take 17 g by mouth daily as needed. 14 each 0 ??? losartan (Cozaar) 25 mg Tablet Take 1 tablet by mouth daily. 90 tablet 3 ??? nitroGLYcerin (Nitrostat) 0.4 mg Tablet, Sublingual Place 1 tablet under the tongue every 5 minutes as needed for Chest pain. 90 tablet 12 ??? insulin needles, disposable, 32 gauge x 5/32 Needle Inject 1 each subcutaneously daily. Indications: diabetes mellitus 100 each 11 Vitals: Last value Range last 24 hrs Temperature Temp: 36.8 ??C (98.2 ??F) Temp: [36.3 ??C (97.3 ??F)-36.8 ??C (98.2 ??F)] Heart Rate Heart Rate: 63 Heart Rate: [57-86] Blood Pressure BP: (!) 82/50 BP: (82-130)/(50-77) Respiratory Rate Resp: 22 Resp: [12-22] SpO2 SpO2: 95 % SpO2: [93 %-98 %] Weight: Patient Vitals for the past 168 hrs: Weight 05/18/22 0348 83.6 kg (184 lb 4.9 oz) 05/17/22 1238 83.6 kg (184 lb 3.2 oz) Weight change: In/Out: Intake/Output Summary (Last 24 hours) at 05/18/2022 0758 Last data filed at 05/17/2022 2100 Gross per 24 hour Intake 520 ml Output 1200 ml Net -680 ml Physical Exam: General: NAD, sleepy Neck: JVP <10 cmH20 Cardiac: RRR w/o mrg Chest: CTAB Abdomen: Soft NT ND, +BS Extremities: WWP w/ no sig edema Neuro: AxOx3 Skin: No rashes observed Labs: Recent Results (from the past 24 hour(s)) POCT Glucose Result Value Ref Range POC Glucose 121 65 - 199 mg/dL POCT Glucose Result Value Ref Range POC Glucose 75 65 - 199 mg/dL POCT Glucose Result Value Ref Range POC Glucose 89 65 - 199 mg/dL BMP w/fasting Glucose Result Value Ref Range Glucose Fasting 119 (H) 65 - 99 mg/dL BUN 15 8 - 18 mg/dL Creatinine 0.68 (L) 0.70 - 1.20 mg/dL Sodium 140 135 - 145 mmol/L Potassium 3.5 3.5 - 5.0 mmol/L Chloride 102 98 - 107 mmol/L CO2 26 22 - 31 mmol/L Anion Gap 12 5 - 15 mmol/L Calcium 8.6 8.5 - 10.5 mg/dL Estimated GFR 109 >=60 mL/min/1.73 m?? Magnesium Result Value Ref Range Magnesium 1.00 0.69 - 1.07 mmol/L pro-Brain Natriuretic Peptide Result Value Ref Range ProBNP 186 (H) <=124 pg/mL Hemogram Result Value Ref Range WBC 9.8 (H) 4.0 - 9.5 x10(3)/mcL RBC 5.26 (H) 4.00 - 5.21 x10(6)/mcL Hemoglobin 15.1 11.7 - 15.5 g/dL Hematocrit 44.9 35.7 - 45.8 % MCV 85.4 82.6 - 94.4 fL MCH 28.7 27.1 - 32.0 pg MCHC 33.6 31.7 - 35.0 g/dL Platelets 319 145 - 357 x10(3)/mcL RDWSD 45.2 37.0 - 46.0 fL RDWCV 14.6 (H) 11.5 - 14.1 % MPV 9.8 7.6 - 12.9 fL nRBC % Auto 0.0 % nRBC Abs Auto 0.000 0.000 - 0.000 x10(3)/mcL Differential, Automated Result Value Ref Range Neutrophils % 45.1 % Neutr Abs (ANC) 4.40 1.70 - 6.10 x10(3)/mcL Lymphocytes % 42.7 % Lymphocytes Abs 4.2 (H) 0.9 - 3.2 x10(3)/mcL Monocytes % 6.9 % Monocyte Abs 0.7 0.3 - 0.9 x10(3)/mcL Eosinophils % 4.9 % Eosinophils Abs 0.5 (H) 0.0 - 0.4 x10(3)/mcL Basophils % 0.2 % Basophils Abs 0.0 0.0 - 0.1 x10(3)/mcL Immature Gran % 0.20 % Anaya Gran Abs 0.02 0.00 - 0.04 x10(3)/mcL Scan, Peripheral Blood Result Value Ref Range Plat Estimate Normal RBC Morphology Normal Giant Platelets Less than 1 /HPF Hepatic Function Panel Result Value Ref Range Total Protein 6.5 6.1 - 8.0 g/dL Albumin 3.7 3.2 - 5.2 g/dL AST 18 0 - 30 unit/L ALT 16 0 - 30 unit/L Alk Phos 118 (H) 35 - 105 unit/L Total Bilirubin 0.4 0.2 - 1.3 mg/dL Bili, Direct 0.1 0.0 - 0.3 mg/dL POCT Glucose Result Value Ref Range POC Glucose 191 65 - 199 mg/dL Relevant Cardiac Tests: TTE 05/13: Left ventricular systolic function is moderately reduced. The left ventricular ejection fraction is 31% by Jaramillo's biplane. There are segmental wall motion abnormalities. The right ventricle is of normal size. Right ventricular systolic function is normal. Assessment: Aracelis Berkowitz is a 46 y.o. year old female admitted on 05/17/2022 with PMH of ASCVD s/p PCI to RCA in 09/2021 (with residual long tubular mid LAD lesion), Ischemic cardiomyopathy (last EF 31% on 05/13/2022), IDDM2, microcytic anemia, LLE trauma requiring fasciotomy on 02/23/2022, syncope who presented to the hospital for a staged PCI of the LAD now s/p bifurcation stent to LAD/D1 and RCA PCI for in- stent restenosis. Admitted for eval for ICD per Dr. Singleton. EP note from 05/13 clearly states that she should be optimized on GDMT for 3 months post revasc before it would be appropriate to consider ICD. At present she is only on BB and SGLT2i for GDMT as outpt so fortunately there is a lot of room of optimization of her medical regimen from HF perspective. Shehas a script for losartan which she has not been filling in [facility]. She has not been on entresto since her fall in 02/20. She is on a very high dose of torsemide which may have precipitated hypovolemia and contributed to her fall in 02/20 and hypotension limiting GDTM uptitration. Moreover, her dosing of metoprolol succinate is atypical (listed as TID). Therefore we will optimize GDMT and plan foroutpt TTE in 3 months and f/u with in HF clinic to eval need for ICD at that time. Plan: 1. ASA, plavix, atova 2. Decrease metoprolol succinate to 25mg QD 3. Start birgit 12.5mg QD 4. Restart empa 10mg QD 5. Pending BP tomorrow, consider restarting losartan vs. 1/2 BID of 24/26mg BID (was on Entesto for 11/23-02/20, in 02/20 had fall thought to be due to hypotension - has script for losartan but has not been filling it) 6. Hold high dose torsemide (home dose 20-40mg BID) This visit lasted 35 minutes, of which 30 minutes were spent in direct discussion and counseling with the patient. Tameka Coker MD MPH [facility] Attending 05/18/2022, 7:58 AM iTffanie Rowe RN - 05/17/2022 7:00 PM EDT OUTCOME EVALUATION NOTE: OUTCOME SUMMARY: Received patient from microbiological lab technician. Post PCI via right radial site. Pulses are palpable. No active bleeding and no hematoma on the site. Had complaints of back pain. MD at bedside and is aware. Patient is easily arousable; no shortness of breathing on room air. Blood sugar rechecked: 89 mg/dl. Dinner provided. PLAN MOVING FORWARD: TR band removal Continue to monitor documented in this encounter H&P Notes Paty Bueno MD - 05/17/2022 5:53 PM EDT Cardiology History and Physical Patient Name: Aracelis Berkowitz Date of : 1975 Age: 46 y.o. Hospital Admit Date: 05/17/2022 Inpatient Attending: Dr. Coker PCP: Lora Parekh MD Presenting Diagnosis/Chief Complaint: ASCVD, s/p staged PCI to LAD. History of Present Illness: Aracelis Berkowitz is a 46 y.o. female with PMH of ASCVD s/p PCI to RCA in 09/2021 ( with residual long tubular mid LAD lesion, planned for staged PCI on 05/17/2022), Ischemic cardiomyopathy ( last EF 31% on 05/13/2022), DM2, microcytic anemia, LLE trauma requiring fasciotomy on 02/23/2022, Syncope who presentedto the hospital for a staged PCI of the LAD. Pt reports intermittent episodes of chest pain especially with exertion. She also reports decrease exercise tolerance. She underwent staged PCI to LAD/D1 with bifurcation stent along with RCA stent forin-stent restonsis. Pt tolerated the procedure well and now admitted to cardiology for monitor and EP evaluation of ACID. Vitals are stable. Labs from 05/13/22 stable. EKG known qwaves in anteroseptal leads. At the time of my evaluation, she reports lower back pain. Denies chest pain, shortness of breath, orthopnea or PND. No fever, chills or sick contacts. Still smokes 1/2 PPD, lives with 3 kids at the [place]. REVIEW OF SYSTEMS: Constitutional: weight loss, fatigue, weakness. Psychological: Anxiety / Depression Ophthalmic: blurred vision or watery or red eyes. ENT: Negative for ear discharge or running nose or cold or throat swelling. Allergy: negative for itchy/watery eyes Heme: Negative for bleeding, bruising, fatigue, jaundice, night sweats Endocrine: negative for polydipsia/polyuria/ heat intolerance Respiratory: As as HPI CVS: As in HPI GI: No abd pain, change in bowel habits, or black or bloody stools Genitourinary: No dysuria, trouble voiding, or hematuria Neurological: Negative for dizziness, seizures, syncope, facial asymmetry, speech difficulty, light-headedness, numbness and headaches. Hematological: Negative. MSK: negative for joint pain, joint stiffness or joint swelling Psychiatric/Behavioral: Negative. Previous Diagnostics: Echo: 05/13/2022 Interpretation Summary Left ventricular systolic function is moderately reduced. The left ventricular ejection fraction is 31% by Jaramillo's biplane. There are segmental wall motion abnormalities. The right ventricle is of normal size. Right ventricular systolic function is normal. Cath: 12/12/2020 Intervention Summary: Right Coronary Artery Proximal 70% Stent insertion was performed on the 70% stenosis in the proximal segment of the RCA. This was a de balbir lesion. According to the ACC/AHA classification system, this lesion was a type C moderate risk lesion. Primary prevention of restenosis was the indication for stent insertion. This was the culprit lesion. A guidewire was placed across this lesion. Vessel flow pre intervention was GLO 3. Lesion length was 30mm. This lesion was severely calcified. Stent insertion was accomplished through a 6 Fr. Ikari Right 1.0 guide. A premounted 4.00 x 30 mm Resolute SRIKANTH (EMILEE) was deployed with a maximum inflation pressure of 12 atmospheres. Following stent deployment, the lesion was dilated using a 4.50mm NC EUPHORA 20 MM balloon with a maximum inflation pressure of 20 atmospheres. Another stent insertion was accomplished through a 6 Fr. Ikari Right 1.0 guide. A premounted 4.00 x 26 mm Resolute SRIKANTH (EMILEE) was deployed with a maximum inflation pressure of 20 atmospheres. Following stent deployment, the lesion was dilated using a 4.50mm NC EUPHORA 12 MM balloon with a maximum inflation pressure of 20 atmospheres. The final outcome was defined as successful. There was no residual stenosis following this intervention. The final GLO flow was 3. Mid 90% Stent insertion was performed on the 90% stenosis in the mid segment of the RCA. This was a de balbir lesion. This lesion was designated a type B1 moderate risk lesion based on ACC/AHA classification system. Primary prevention of restenosis was the indication for stent insertion. This was the culprit lesion. A guidewire was placed across this lesion. Vessel flow pre intervention was GLO 3. Lesion length was 10mm. Stent insertion was accomplished through a 6 Fr. Ikari Right 1.5 guide. The lesion was predilated with a 3.50mm NC EUPHORA 20 MM balloon with a maximum inflation pressure of 20 atmospheres. A premounted 3.50 x 26 mm Resolute SRIKANTH (EMILEE) was deployed with a maximum inflation pressure of 20 atmospheres. Following stent deployment, the lesion was dilated using a 3.00mm EUPHORA 12 MM . Another stent insertion was accomplished through a 6 Fr. Ikari Right 1.0 guide. A premounted 3.50 x 15 mm Resolute SRIKANTH (EMILEE) was deployed with a maximum inflation pressure of 12 atmospheres. Following stent deployment, the lesion was dilated using a 4.00mm NC EUPHORA 20 MM balloon with a maximum inflation pressure of 12 atmospheres. The final outcome was defined as successful. There was no residual stenosis following this intervention. The final GLO flow was 3. Distal 60% Stent insertion was performed on the 60% stenosis in the distal segment of the RCA. This was a de balbir lesion. According to the ACC/AHA classification system, this lesion was a type B1 low risk lesion. Primary prevention of restenosis was the indication for stent insertion. A guidewire was placed across this lesion. Vessel flow pre intervention was GLO 3. Lesion length was 15mm. Stent insertion was accomplished through a 6 Fr. Ikari Right 1.5 guide. The lesion was predilated with a 3.00mm EUPHORA 12 MM balloon with a maximum inflation pressure of 12 atmospheres. A premounted 4.00 x 38 mm Resolute SRIKANTH (EMILEE) was deployed with a maximum inflation pressure of 18 atmospheres. Following stent deployment, the lesion was dilated using a 4.00mm NC EMERGE 20 MM balloon with a maximum inflation pressure of 18 atmospheres. The final outcome was defined as successful. There was no residual stenosis following this intervention. The final GLO flow was 3. Vascular Access: Vascular Access Management: Mechanical Compression of the right radial artery access site was performed. Point of Care Testing: ABG: Arterial Blood gasses were performed using the I-Stat analyzer at 16:50: pH: 7.44, pCO2: 40.8, pO2: 68.0, sPO2: 94%, HCO3: 27 on FIO2: 4 L O2 NC. I-Stat: I-Stat was performed using the I-Stat analyzer at 16:50: Na+: 137, K+: 4.1, Hct: 28%, Hb: 9.5. Dual Antiplatelet (DAPT) Recommendations: Drug eluting stent (EMILEE) inserted. P2Y12 Loading dose administered prior to arrival in the label machine operator. Recommended anti-platelet/anti-thrombotic regimen: Continue aspirin 81 mg daily. Continue clopidogrel 75 mg daily. These recommendations are made at the time of the intervention. Patient and provider preferences or a changing clinical situation may require modification of this regimen. Consult [facility] Interventional Cardiology for questions. The 1 year bleeding risk as calculated by the PRECISE DAPT score is High risk. This patient may be at high bleeding risk. In patients treated with DAPT after coronary stent implantation who develop a high risk of bleeding, or are at high risk of severe bleeding complication, or develop significant overt bleeding, discontinuation of P2Y12 inhibitor therapy after 3 months for stable ischemic heart disease (SIHD) or after 6 months for acute coronary syndrome (ACS) may be reasonable. Conclusions: * Obstructive disease of the RCA * Successful stent insertion of the mid RCA lesion * Successful stent insertion of the distal RCA lesion * Successful stent insertion of the proximal RCA lesion * See Dual Antiplatelet (DAPT) Recommendations above Past Medical History: Past Medical History: Diagnosis Date ??? Anxiety ??? CAD (coronary artery disease) ??? Chronic pain syndrome ??? Cigarette nicotine dependence without complication ??? Diabetes mellitus ??? GERD (gastroesophageal reflux disease) ??? Hypertension Surgical History/Problems: Past Surgical History: Procedure Laterality Date ? ? PRO DEBRIDEMENT SUBCUTANEOUS TISSUE 20 SQCM/< Left 02/21/2022 DEBRIDEMENT SKIN AND SUBCU, LOWER EXTREMITY (WRVU 1.01) [facility] ??? PRO DECOMPRESS ANT/LAT+POST LEG CMPART Left 02/19/2022 FASCIOTOMY, LOWER LEG, ALL COMPARTMENTS (WRVU 7.82) performed by Lora Mark MD at [facility] OR Significant Family History: History reviewed. No pertinent family history. Social History: Social History Socioeconomic History ??? Marital status: Spouse name: Not on file ??? Number of children: Not on file ??? Years of education: Not on file ??? Highest education level: Not on file Occupational History ??? Not on file Tobacco Use ??? Smoking status: Current Every Day Smoker Packs/day: 0.50 ??? Smokeless tobacco: Never Used Vaping Use ??? Vaping Use: Never used Substance and Sexual Activity ??? Alcohol use: Yes Comment: occasional ??? Drug use: No ??? Sexual activity: Not on file Other Topics Concern ??? Not on file Social History Narrative ??? Not on file Social Determinants of Health Financial Resource Strain: Not on file Food Insecurity: Not on file Transportation Needs: Not on file Physical Activity: Not on file Housing Stability: Not on file PHYSICAL EXAM: Last set of vital signs: BP 98/62 (BP Location (NBP): Left arm) Pulse 63 Temp 36.8 ??C (98.2 ??F) (Oral) Resp 18 Ht 162.6 cm (5' 4) Wt 83.6 kg (184 lb 3.2 oz) SpO2 97% BMI 31.62 kg/m?? Gen/Constitutional: Comfortable, NAD HEENT: JANES, EOMI, No conjunctival pallor or scleral icterus, JVP not elevated Cardiac/CVS: RRR, normal S1/S2. No S3 or S4, no m/g/r Pulm/Chest: CTAB, no wheezing or crackles Abd/GI: Soft., non tender, non distended, BS+ Musculoskeletal: No pitting edema, Pulses palpable B/L, no calf tenderness, swelling, or erythema. Neuro/MANAGER MARKETING: AAO x 3, No gross motor deficits. No sensory loss. No gait ataxia. Skin/Integumentary: No ulcer or rash Diagnostics: EKG: NSR, qwaves in anteroseptal leads. No current facility-administered medications on file prior to encounter. Current Outpatient Medications on File Prior to Encounter Medication Sig Dispense Refill ??? methadone (Dolophine) 10 mg Tablet Take 100 mg by mouth every 8 hours. Methadone clinic ??? torsemide (Demadex) 20 mg Tablet Take 20-40 mg by mouth 2 times daily. ??? cetirizine (ZyrTEC) 10 mg Tablet Take 10 mg by mouth daily as needed. ??? colchicine (Colcrys) 0.6 mg Tablet Take 0.6 mg by mouth 2 times daily. ??? Jardiance 10 mg Tablet Take 10 mg by mouth daily. ??? fluticasone propionate (Flonase) 50 mcg/actuation [place], Suspension as needed. ??? folic acid (Folvite) 1 mg Tablet Take 1,000 mcg by mouth daily. ??? humaLOG KwikPen 100 unit/mL Insulin Pen as needed. ??? potassium chloride ER (K-Dur/Klor-Con) 20 mEq Tab Sust.Rel. Particle/Crystal TAKE ONE TABLET BY MOUTH EVERY DAY FOR 10 DAYS ??? ondansetron (Zofran) 4 mg Tablet Take 1-2 tablets by mouth every 8 hours as needed. 20 tablet 0 ??? acetaminophen (Tylenol) 500 mg Tablet Take 2 tablets by mouth every 6 hours. (Patient taking differently: Take 1,000 mg by mouth as needed.) 30 tablet 1 ??? Insulin Tresiba FlexTouch U-200 200 unit/mL (3 mL) Insulin Pen Inject 10 Units subcutaneously daily. Indications: type 2 diabetes mellitus 9 mL 3 ??? liraglutide (VICTOZA) 0.6 mg/0.1 mL (18 mg/3 mL) Pen Injector Inject 1.8 mg subcutaneously daily. 30 mL 0 ? ? Blood Pressure Kit Med & Lrg Kit 1 Product by [facility]Non-Drug; Combo Route) route 2 times daily. 1 kit 0 ??? [DISCONTINUED] furosemide (Lasix) 20 mg Tablet Take 1 tablet by mouth 2 times daily. 30 tablet 3 ??? aspirin EC 81 mg Tablet, Delayed Release (E.C.) Take 1 tablet by mouth daily. 30 tablet 3 ??? atorvastatin (Lipitor) 80 mg Tablet Take 1 tablet by mouth every evening. 90 tablet 3 ??? clopidogreL (Plavix) 75 mg Tablet Take 1 tablet by mouth daily. 90 tablet 3 ??? ferrous sulfate EC 325 mg (65 mg iron) Tablet, Delayed Release (E.C.) Take 1 tablet by mouth every other day. (Patient taking differently: Take 325 mg by mouth 2 times daily.) 30 tablet 3 ??? magnesium oxide (Mag-Ox) 400 mg (241.3 mg magnesium) Tablet Take 1 tablet by mouth 2 times daily. 30 tablet 12 ??? metoprolol succinate XL (Toprol-XL) 50 mg Tablet Sustained Release 24 hr Take 1 tablet by mouth daily. (Patient taking differently: Take 25 mg by mouth 2 times daily.) 30 tablet 12 ??? gabapentin (Neurontin) 300 mg Capsule Take 2 capsules by mouth 2 times daily. (Patient taking differently: Take 600 mg by mouth daily.) 90 capsule 12 ??? nicotine (Nicoderm CQ) 14 mg/24 hr Patch 24 hr Change 1 patch on the skin daily. 28 patch 3 ??? pantoprazole EC (Protonix) 20 mg Tablet, Delayed Release (E.C.) Take 1 tablet by mouth daily. (Patient taking differently: Take 40 mg by mouth daily.) 90 tablet 3 ??? albuterol (PROVENTIL) 2.5 mg /3 mL (0.083 %) nebulizer solution Take 2.49 mg by nebulization every 6 hours as needed. ??? fluticasone propion-salmeteroL (ADVAIR) 500-50 mcg/dose Disk with Device Inhale 1 puff into the lungs 2 times daily. ??? dextromethorphan (Robitussin) 15 mg Capsule Take 1 capsule by mouth every 6 hours. 20 capsule 0 ??? polyethylene glycoL (Miralax) 17 gram Powder in Packet Take 17 g by mouth daily as needed. 14 each 0 ??? losartan (Cozaar) 25 mg Tablet Take 1 tablet by mouth daily. 90 tablet 3 ??? nitroGLYcerin (Nitrostat) 0.4 mg Tablet, Sublingual Place 1 tablet under the tongue every 5 minutes as needed for Chest pain. 90 tablet 12 ??? insulin needles, disposable, 32 gauge x 5/32 Needle Inject 1 each subcutaneously daily. Indications: diabetes mellitus 100 each 11 LABS: Recent Results (from the past 24 hour(s)) POCT Glucose Result Value Ref Range POC Glucose 121 65 - 199 mg/dL POCT Glucose Result Value Ref Range POC Glucose 75 65 - 199 mg/dL POCT Glucose Result Value Ref Range POC Glucose 89 65 - 199 mg/dL BMP w/fasting Glucose Result Value Ref Range Glucose Fasting 119 (H) 65 - 99 mg/dL BUN 15 8 - 18 mg/dL Creatinine 0.68 (L) 0.70 - 1.20 mg/dL Sodium 140 135 - 145 mmol/L Potassium 3.5 3.5 - 5.0 mmol/L Chloride 102 98 - 107 mmol/L CO2 26 22 - 31 mmol/L Anion Gap 12 5 - 15 mmol/L Calcium 8.6 8.5 - 10.5 mg/dL Estimated GFR 109 >=60 mL/min/1.73 m?? Magnesium Result Value Ref Range Magnesium 1.00 0.69 - 1.07 mmol/L pro-Brain Natriuretic Peptide Result Value Ref Range ProBNP 186 (H) <=124 pg/mL Hemogram Result Value Ref Range WBC 9.8 (H) 4.0 - 9.5 x10(3)/mcL RBC 5.26 (H) 4.00 - 5.21 x10(6)/mcL Hemoglobin 15.1 11.7 - 15.5 g/dL Hematocrit 44.9 35.7 - 45.8 % MCV 85.4 82.6 - 94.4 fL MCH 28.7 27.1 - 32.0 pg MCHC 33.6 31.7 - 35.0 g/dL Platelets 319 145 - 357 x10(3)/mcL RDWSD 45.2 37.0 - 46.0 fL RDWCV 14.6 (H) 11.5 - 14.1 % MPV 9.8 7.6 - 12.9 fL nRBC % Auto 0.0 % nRBC Abs Auto 0.000 0.000 - 0.000 x10(3)/mcL Differential, Automated Result Value Ref Range Neutrophils % 45.1 % Neutr Abs (ANC) 4.40 1.70 - 6.10 x10(3)/mcL Lymphocytes % 42.7 % Lymphocytes Abs 4.2 (H) 0.9 - 3.2 x10(3)/mcL Monocytes % 6.9 % Monocyte Abs 0.7 0.3 - 0.9 x10(3)/mcL Eosinophils % 4.9 % Eosinophils Abs 0.5 (H) 0.0 - 0.4 x10(3)/mcL Basophils % 0.2 % Basophils Abs 0.0 0.0 - 0.1 x10(3)/mcL Immature Gran % 0.20 % Anaya Gran Abs 0.02 0.00 - 0.04 x10(3)/mcL Scan, Peripheral Blood Result Value Ref Range Plat Estimate Normal RBC Morphology Normal Giant Platelets Less than 1 /HPF Assessment and plan: Aracelis Berkowitz is a 46 y.o. female with PMH of ASCVD s/p PCI to RCA in 09/2021 ( with residual long tubular mid LAD lesion), Ischemic cardiomyopathy ( last EF 31% on 05/13/2022), IDDM2, microcytic anemia, LLE trauma requiring fasciotomy on 02/23/2022, syncope who presented to the hospital for a staged PCI of the LAD now s/p bifurcation stent to LAD/D1 and RCA PCI for in-stent restenosis. Pt is hemodynamically stable. She will be admitted to cardiology for monitor, EP consult for evaluation for AICD. #ASCVD s/p PCI to RCA and now s/p staged PCI to long tubular mid LAD/D1 and RCA. #Ischemic cardiomyopathy: EF was 31% on 05/13/2022 -no signs of CHF exacerbation -continue ASA, plavix, lipitor, resume torsemide tomorrow -resume entresto, metoprolol -monitor volume status, intake/output -EP consult # IDDM2: -on Tresciba, Victoza, Jardiance at home -continue long acting and premeal insulin -continue gabapentin -monitor FSG -last A1c was 5.6 in 01/2022 #Chronic pain syndrome: -continue methadone after confirming home dose -avoid/minimize opioids -Tylenol standing -Toradol prn for acute pain. #Nicotine dependence: -smokes 1/2 PPD -encouraged about smoking cessation -nicotine patch #GERD: -continue pantoprazole #hx of Iron deficiency Anemia: -H&H is stable -continue ferrous sulfate #Code Status: Full #Diet: Cardiac/diabetic #DVT PPx: SQH Paty Bueno MD 05/17/2022 Pager # [phone] Tai Freire DO - 05/17/2022 1:31 PM EDT Images from the original note were not included. Patient Name: Aracelis Berkowitz Patient Age: 46 y.o. Birthdate: 1975 Admit date: 05/17/2022 Attending Physician: Rafi Barrett MD [facility] [place] [address] [id number] SAME DAY CARDIAC CATHETERIZATION LAB H&P ID: Aracelis Berkowitz is a 46 y.o. female with past medical history of Coronary artery disease with prior RCA intervention in 09/2021, tobacco use, poorly controlled diabetes and ischemic cardiomyopathy 30-35% who presents for staged PCI of LAD due to on going anginal symptoms. She was previously found to have The mid segment of the LAD had a long segmental 70% stenosis. This lesion involved bifurcation. Aracelis Berkowitz has no planned upcoming surgeries. No recent or ongoing bleeding events. No black stools. Physical Exam: BP 93/60 Pulse 71 Temp 36.3 ??C (97.3 ??F) (Temporal) Resp 18 Ht 162.6 cm (5' 4) Wt 83.6 kg (184 lb 3.2 oz) SpO2 95% BMI 31.62 kg/m?? Gen: Pleasant female in no apparent distress, able to lay flat. Cardiac: Regular rate, S1/S2 normal character and amplitude, no murmurs, rubs, or gallops. Pulm: Clear to auscultation bilaterally, no increased work of breathing. Ext: Palpable radial and femoral pulses bilaterally. Palpable DP pulses bilaterally. Neuro: Grossly normal neurologic exam without apparent focal deficit. ASA: 3: Patient with severe systemic disease Mallampati: II: tonsillar pillars are blocked by the tongue Recent Labs: Recent CBC: Recent Labs 05/13/22 1136 02/21/22 0341 02/19/22 0345 WBC 10.1* 8.6 10.5* HGB 15.1 12.1 14.2 HCT 44.4 37.5 42.7 PLATELET 342 260 311 Recent BMP: Recent Labs 05/13/22 1136 02/21/22 0341 02/20/22 0609 NA 140 137 141 K 3.5 3.9 3.8 CL 95* 106 109* CO2 33* 22 23 BUN 25* 11 12 CREATININE 0.80 0.66* 0.57* EC-Lead ECG reviewed Normal sinus rhythm Prolonged QT Previous cardiac diagnostic studies: Left Ventricle Wall thickness is normal. Left ventricular systolic function is moderately reduced. The left ventricular ejection fraction is 31% by Jaramillo's biplane. Left ventricular ejection fraction is estimated visually at 30-35%. There are segmental wall motion abnormalities General consent statement: The indications, expected benefits, and potential risks of heart catheterization were reviewed in detail with the patient. The potential for , heart attack, stroke, kidney failure, hemorrhage, allergic reaction, vascular complications and infection were reviewed in detail. The possibility of stenting and other percutaneous intervention, with associated risk, was reviewed. The possible need for emergent coronary artery bypass surgery was reviewed. Alternatives were discussed and the patient's questions were answered in full. Following this discussion, the patient consented to the procedure and signed a form attesting to this, which is in the chart. Patient is full code. Plan: -no apparent contraindication to DAPT, patient denies upcoming or planned procedures/operations, anddenies ongoing or recent bleeding events -proceed as planned -consent signed Tai Freire DO Supervisor Channel Process 05/17/2022 documented in this encounter Miscellaneous Notes Care Management Discharge - Giovanna Hammonds RN - 05/23/2022 11:14 AM EDT CARE MANAGEMENT FINAL DISCHARGE NOTE Chart reviewed, care reviewed with primary team and at interdisciplinary rounds. Patient is medically ready for discharge to home. Needs for Transition of Care: Per discharge instructions. Plan for discharge is: Home w/o Services Outpatient Agency/Support Group Needs: None Agency Referrals & Follow-up Care: Per discharge instructions. Transportation: family or friend will provide RCT at 14:00 Wheelchair van/Ambulance? No Functional status prior to admission: Assistive Equipment Home Environment: Others in the home: child(fahad), adult, child(fahad), dependent (3 children in home, 19 y/o, 17 y/o and 11 y/o). Current Living Arrangements: home/apartment/condo. Accessibility Concerns: . Current Functional Ability: Independent DME used at home: cane - quad, walker - standard (Pt would like a shower chair) DME Needed at Discharge: Has LifeVest. Other DME Needs: Zoll Vest Delivery: In Process, Hosp Room Patient is insured through: Primary Insurance: MEDICARE Payor: MEDICARE / Plan: MEDICARE PART A & B / Product Type: *No Product type* / Secondary Insurance: MEDICAID [place] Prescription Coverage: Yes This plan was formulated with input from patient, (please identify family/friend involved if applicable) and team. All are in agreement with plan. Consult Note - Daisy Simon RN - 05/19/2022 4:05 PM EDT Certified Wound Care Nurse Note Situation: Asked to see Aracelis Berkowitz by Tiffanie Rowe, RN for Under both breast. open sore with yellow slough. Background: eD-H notes reviewed for history, admitting diagnosis and active problem list. Wound Assessment and Care Provided: Patient seen this afternoon in room 457-B in bed, reason for visit explained to patient, permission received to assess skin. Patient with light pink rash under breasts, right breast with a small open area with yellow base, left breast with a small circular red area.Cleansed with normal saline and silver foam applied. 4 of each bordered and non bordered left with patient. Patient noted to have circular scars over body. Abraham Score: 19 Last Pressure Ulcer Prevention assessment: Shift Pressure Injury Prevention Occiput: No Injury Thoracic Spine: No Injury Sacral: No Injury Ischial - left: No Injury Ischial - right: No Injury Heel - left: No Injury Heel - right: No Injury Elbow - left: No Injury Elbow - right: No Injury Device Sites: O2 sat monitor, IV sites, ECG Leads, BP Cuff Nutritional Status Wt Readings from Last 1 Encounters: 05/19/22 85.7 kg (188 lb 15 oz) Body mass index is 32.43 kg/m??. Labs Lab Results Component Value Date ALBUMIN 3.7 05/17/2022 ALBUMIN 3.5 09/05/2021 ALBUMIN 3.7 09/03/2021 HA1C 6.0 (H) 05/17/2022 HA1C 5.6 02/21/2022 HA1C 6.8 (H) 09/02/2021 WBC 6.9 05/19/2022 WBC 9.8 (H) 05/17/2022 WBC 10.1 (H) 05/13/2022 HGB 13.9 05/19/2022 HGB 15.1 05/17/2022 HGB 15.1 05/13/2022 HCT 42.7 05/19/2022 HCT 44.9 05/17/2022 HCT 44.4 05/13/2022 Nutritional Intake Assessment: Patient with excoriations on breasts, slight intertrigo. Foam dressings applied to absorb moisture. Wound Care Recommendations: Mepilex Border Ag dressings under breasts-nursing to change every 7 days and as needed for dressing with 50% or greater strike though drainage. 1. Cleanse wound with dermal wound cleanser and gauze. 2. Apply Mepilex Border Ag dressing Wound Care Team will plan to follow: two weeks.. Discussed plan with: RN: Taylor Please contact DAISY SIMON RN on pager [phone] or the wound care team at [phone] or pager [phone] skin and wound care concerns or questions. Initial Assessments - Carrie Mike RN - 05/18/2022 5:29 PM EDT Office of Care Management Initial Assessment Carrie Mike RN reviewed record and discussed patient with Care Team. Source of Information: Team, bedside nurse, medical record, and Patient Introduced self/reviewed role; services accepted. Reason for Hospitalization: Per H&P by Dr. Paty Bueno: Aracelis Berkowitz is a 46 y.o. female with PMH of ASCVD s/p PCI to RCA in 09/2021 ( with residual long tubular mid LAD lesion, planned for staged PCI on 05/17/2022), Ischemic cardiomyopathy ( last EF 31% on 05/13/2022), DM2, microcytic anemia, LLE trauma requiring fasciotomy on 02/23/2022, Syncope who presented to the hospital for a staged PCI of the LAD. ?? Pt reports intermittent episodes of chest pain especially with exertion. She also reports decrease exercise tolerance. She underwent staged PCI to LAD/D1 with bifurcation stent along with RCA stent forin-stent restonsis. Pt tolerated the procedure well and now admitted to cardiology for monitor and EP evaluation of ACID. Vitals are stable. Labs from 05/13/22 stable. EKG known qwaves in anteroseptal leads. ?? At the time of my evaluation, she reports lower back pain. Denies chest pain, shortness of breath, orthopnea or PND. No fever, chills or sick contacts. Still smokes 1/2 PPD, lives with 3 kids at the [place]. ?? Covid Vaccination Status: (Per chart Pt is fully vaccinated; did not discuss) Last COVID test: Lab Results Component Value Date COVID19 Not Detected 02/22/2022 [id number] Not Detected 02/19/2022 Past medical History: Past Medical History: Diagnosis Date ??? Anxiety ??? CAD (coronary artery disease) ??? Chronic pain syndrome ??? Cigarette nicotine dependence without complication ??? Diabetes mellitus ??? GERD (gastroesophageal reflux disease) ??? Hypertension Hospitalizations Within the Past 30 Days: no previous admission in last 30 days Current Decision-Making Capacity: Self If AD's have not been completed the following surrogate would be surrogate decision maker per [place] decision making law. (Only good for 180 days) Any patient receiving care in [place] must abide by [place] law. The hierarchy for surrogate decision making is: (a) Patient???s spouse, or civil union partner or common law spouse unless there is a divorce proceeding, separation agreement, or restraining order limiting that person???s relationship with the patient. (b) Any adult son or daughter of the patient. (c) Either parent of the patient. (d) Any adult brother or sister of the patient. (e) Any adult grandchild of the patient. (f) Any grandparent of the patient. (g) Any adult aunt, uncle, niece, or nephew of the patient. (h) A close friend of the patient. (i) The agent with financial power of assistant county attorney or a conservator appointed in accordance with [place] 464-A. (j) The guardian of the patient???s estate. Advance Care Planning: Attempt Cardiopulmonary Resuscitation - Inpatient <no information> -Advanced Directive: No, need to discuss Mother would be decision maker by surrogacy. Pt would like to do an AD; placed referral to RS Current Functional Ability: Assistive Equipment, Assistive Person Functional Status Prior to Admission: Assistive Equipment Prior ADLs & IADLs: Assistance Needed with ADLs & IADLs Driving: Family / Friends Provide Rides (Needs help to get to grocery stores) Pt stated that house cleaning is exhausting. She has found someone who can work as a Home Health Aide and is working [employer] to get a stipend. Home Environment: Others in the home: child(fahad), adult, child(fahad), dependent (3 children in home, 19 y/o, 17 y/o and 11 y/o). Current Living Arrangements: home/apartment/condo. Accessibility Concerns: . Not discussed Resource / Environmental Concerns: Resource/Environmental Concerns: none Current DME: cane - quad, walker - standard (Pt would like a shower chair) Home Address confirmed as: [address] [place] [id number] Social & Family Supports: All names listed below confirmed with patient as current and correct Extended Emergency Contact Information Primary Emergency Contact: DAVION BERKOWITZ Mobile Relation: Child Current Care Provided by: self Provides Primary Care For: child(fahad) Caregiver if needed: unable to assess (Pt's mother maybe) Quality of Family relationships: unable to assess (Pt seems to be primary caregiver for family) Community Resources being provided currently: other (see comments) (outpatient methadone clinic;) Behavioral Health History: Pt endorses depression and ADD. She would be interested in re-starting Citalopram antidepressants and talking to BIT Team. Notified Team. Substance Use/Abuse confirmed: Social History Tobacco Use Smoking Status Current Every Day Smoker ??? Packs/day: 0.50 Smokeless Tobacco Never Used 0 No problems reported 1-2 Low level 3-5 Moderate level 6-8 Substantial level 9- 10 Severe level Pt states that she goes to a methadone clinic as an option for pain control and to avoid addiction to pain meds. 0 to 7 points: Low risk 8 to 15 points: Medium risk 16 to 19 points: High risk 20 to 40 points: Addiction likely Health/Prescription Coverage: Primary Insurance: MEDICARE Payor: MEDICARE / Plan: MEDICARE PART A & B / Product Type: *No Product type* / Secondary Insurance: MEDICAID [place] Secondary Insurance? (Only Medicare A&B): Yes ; Prescription Coverage: Yes Preferred Pharmacy: [id number] [address] [place], [place] - [address] [place] [address] [phone] [facility] [address] [facility] [id number] [facility] [address] - [place], [place] - [address] [facility] [address] [place] Status: Patient is a : No Primary Care Provider: Lora Parekh MD [phone] Patient/Caregiver Goals of Treatment: Potential Needs for Transition of Care: home health care (currently working [email or web address] to get home health aides, private duty) Agency Referrals: If needed: [facility] PHONE: [phone] FAX: [phone] Transportation: public transportation, none available, rides, unreliable from others Transportation Anticipated: family or friend will provide, public transportation Concerns to be Addressed: discharge planning Assessment: Patient is admitted to Cardiology service for Planned Admission for Staged PCI of the LAD Pt is primary caregiver/parent to 4 children, 3 living in the home: 19 y/o, 14 y/o and 11 y/o. She uses a cane or walker baseline as needed d/t fatigue. She needs drives/assistance to get to the grocery store and pharmacy.Pt stated that house cleaning is exhausting. She has found someone who can work as a Home Health Aide and is working [employer] to get a stipend. Pt states that she goes to a methadone clinic as an option for pain control and to avoid addiction to pain meds. Pt would be interested in re-starting Citalopram antidepressants and talking to BIT Team. Plan: Will ask Team for a BIT consult and whether they can help w/re-starting Citalopram. A member of the Care Management team will continue to monitor progress, follow for continuity of care and assist with transition of care planning. Carrie Mike Pager: [phone] Cell: Consult Note - Joy Munoz APRN - 05/18/2022 1:39 PM EDT Images from the original note were not included. Diabetes Management Team Inpatient Consult Date of Consultation: 05/18/2022 Consult Requested by: Cardiology Reason for Consultation:Aracelis Berkowitz is a 46 y.o. female with PMH of ASCVD s/p PCI to RCA in 09/2021 (with residual long tubular mid LAD lesion, planned for staged PCI on 05/17/2022), Ischemic cardiomyopathy ( last EF 31% on 05/13/2022), DM2, microcytic anemia, LLE trauma requiring fasciotomy on 02/23/2022, Syncope who presented to the hospital for a staged PCI of the LAD. Review of admission note from January recommends patient stop Jardiance with concern for lower extremityfasciotomy during admission and concern that SGLT-2 medications should not be used in those with poor LE vascularization. Patient states she stopped this medication while healing though was started back on this for cardaic benefits. A1C updated and 6.0%. Diabetes History: Aracelis Berkowitz has had diabetes for several years. She would love a CGM if she can figure out how to getone. Current outpatient diabetes regimen: Diabetes Provider: PCP, Dr. Lora Parekh, [facility] Medications: Jardiance 10mg daily, Tresiba U200 116 units daily, Humalog SS for BG > 200, Victoza1.8mg daily Monitoring is done 4+ times daily Most recent A1C: Recent Labs 05/17/22 2012 02/21/22 0341 09/02/21 1330 HA1C 6.0* 5.6 6.8* suggesting an average glucose of 126 mg/dL for the past 6-8 weeks. Typical diet is: grazing, snacks, crackers, cheese, fruit and nuts, no meals though likes carbs Diabetes education: has had previously, feels she knows what she is supposed to do Insulin administration site: Abdomen Compliance with insulin: good Diabetes Complications Status: Eyes: None, due for exam Kidneys: creatinine 0.68, GFR 109 Sensory: +neuropathy Autonomic: None Cardiovascular : +CAD Last Kidney function: Lab Results Component Value Date CREATININE 0.68 (L) 05/17/2022 Last lipid panel: Lipid Panel Lab Results Component Value Date CHLPL 139 09/02/2021 HDL 24 09/02/2021 CHOLHDL 5.8 09/02/2021 TRIG 178 09/02/2021 LDLCHOL 79 09/02/2021 Current Hospital Diabetes Care: Medications: Lantus 8 units, Lispro carb ratio 1:10, sliding scale q 4 hrs for BG > 160 CF 40 Monitoring: q 4 hrs Diet: cardiac diet 60/60/75 REVIEW OF SYSTEMS: All 12 systems reviewed and negative except as noted per HPI. PMH Past Medical History: Diagnosis Date ??? Anxiety ??? CAD (coronary artery disease) ??? Chronic pain syndrome ??? Cigarette nicotine dependence without complication ??? Diabetes mellitus ??? GERD (gastroesophageal reflux disease) ??? Hypertension Current Hospital Medications: ??? methadone (Methadose) oral liquid 100 mg Oral Daily ??? spironolactone 12.5 mg Oral Daily ??? empagliflozin 10 mg Oral Daily ??? metoprolol succinate XL 25 mg Oral Daily ??? insulin lispro 0-8 Units Subcutaneous TID WC ??? insulin glargine (Lantus;Semglee) (100 unit/mL) subcutaneous injection 8 Units Subcutaneous Daily ??? insulin lispro 1-4 Units Subcutaneous Q4H ALAN ??? [START ON 05/19/2022] pantoprazole EC 40 mg Oral Daily ??? pantoprazole EC 20 mg Oral Once ??? aspirin EC 81 mg Oral Daily ??? clopidogreL 75 mg Oral Daily ??? ipratropium-albuteroL 3 mL Nebulization Q6H ??? atorvastatin 80 mg Oral QPM ??? colchicine 0.6 mg Oral BID ??? dextromethorphan 15 mg Oral Q6H ??? ferrous sulfate EC 325 mg Oral Every Other Day ??? folic acid 1,000 mcg Oral Daily ??? gabapentin 1,200 mg Oral Nightly ??? magnesium oxide 400 mg Oral BID ??? potassium chloride ER 20 mEq Oral Daily ??? heparin (porcine) 5,000 Units Subcutaneous Q8H ALAN ??? nicotine 1 patch Transdermal Daily And ??? Patch Verification 1 patch Transdermal BID And ??? nicotine 1 patch Transdermal Daily ??? acetaminophen 975 mg Oral Q6H Infusions: PRN: nitroGLYcerin, glucose 40% oral geL OR dextrose 10% OR glucagon, albuteroL, ketorolac Allergy: Allergies Allergen Reactions ??? Penicillins Spoke to mother Vicenta. Rash and SOB as a child ??? Tramadol Other (See Comments) Heart races ??? Trazodone Social history: Social History Tobacco Use ??? Smoking status: Current Every Day Smoker Packs/day: 0.50 ??? Smokeless tobacco: Never Used Vaping Use ??? Vaping Use: Never used Substance Use Topics ??? Alcohol use: Yes Comment: occasional ??? Drug use: No Family history: History reviewed. No pertinent family history. Vitals BP 91/55 (BP Location (NBP): Left arm, Patient Position: Sitting) Pulse 80 Temp 37 ??C (98.6 ??F) (Oral) Resp 18 Ht 162.6 cm (5' 4) Wt 83.6 kg (184 lb 4.9 oz) SpO2 97% BMI 31.64 kg/m?? Physical Exam: Gen: NAD, talking in clear sentences. Laying in bed comfortably, snacking on cashews Respiratory: breathing non-labored on RA Abd: Soft, Large 4 inch area of lipohypertrophy central abdominal pannus, non- tender x4 quadrants SKIN: No open areas, bruising appreciated or redness to both feet, nails in poor condition Extremities: sensation intact, unable to palpate Distal pulses Neuro: Moving all extremities. Grossly non-focal Labs: Lab Results Component Value Date BUN 15 05/17/2022 CREATININE 0.68 (L) 05/17/2022 GLUCOSE 99 05/13/2022 GLUCFASTING 119 (H) 05/17/2022 ESTGFR 109 05/17/2022 Lab Results Component Value Date HA1C 6.0 (H) 05/17/2022 No results found for: MICROALBUR Lab Results Component Value Date CHLPL 139 09/02/2021 Lab Results Component Value Date HDL 24 09/02/2021 Lab Results Component Value Date LDLCHOL 79 09/02/2021 Lab Results Component Value Date TRIG 178 09/02/2021 Lab Results Component Value Date CHOLHDL 5.8 09/02/2021 Assessment: Aracelis Berkowitz is a 46 y.o. female with PMH of ASCVD s/p PCI to RCA in 09/2021 ( with residual long tubular mid LAD lesion), Ischemic cardiomyopathy ( last EF 31% on 05/13/2022), IDDM2, microcytic anemia, LLE trauma requiring fasciotomy on 02/23/2022, syncope who presented to the hospital for a staged PCI of the LAD??now s/p bifurcation stent to LAD/D1 and RCA PCI for in-stent restenosis. Patient started on Lantus at 8 units daily, meal associated insulin with CR 1:10 and sensitive sliding scale. Her home jardiance was continued at 10mg. We have concern about the class of SGLT-2 medications in anyone with a hx of LE vascular issues when blood sugars are poorly controlled as these can lead to dehydration and increased risk for amputation. Our bias can lean towards discontinuing these medications in those with poor glycemic control. This was communicated to team though decision deferred to PCP at last discharge. December reports taking considerably more insulin at home than has been required during her admissions.I discussed with her my concern for the large area of lipohypertrophy on her abdomen where she reports she administers her insulin. These areas result in slower insulin absorption and could be playing a role in the disparity of insulin dosing we are noting during her admissions as compared to home. She would benefit from continued guidance to avoid this site and start back on insulin dose identified during admission. Her A1C of 6% could reflect frequent low blood sugars though she tells me that pradeep has been recently having episodes of passing out that her blood sugars have been in good contr ol She would definitely benefit from CGM and We will work to get this for her upon discharge. At this time We will use insulin requirements from last discharge in January to guide her blood sugar management with continued monitoring and adjustment of insulin to keep her blood sugars in target range. Currently has variability of blood glucose levels while hospitalized requiring adjustment of insulin regimen and DM medications. Plan: 1. Lantus 8 units qd 2. Meal-associated Lispro 1unit: 10 gm carb ratio for each meal 3. Correction Lispro based on a correction factor of 40 4. Diet:cardiac carb control 60/60/75 5. Monitoring: Q4 Discharge Considerations: Medications - Outpatient treatment regimen recommendations pending based on the hospital course. Monitoring - continue BG tid ac & hs, Have perinatal educator reach out to determine if CGM covered for her Diet - low fat/low carb diet Exercise - weight-bearing exercise 30 min/day, as tolerated Thank you for allowing us to provide care for your patient Joy Munoz APRN Endocrinology Diabetes Management Service Pager: [phone] minutes of this 80 minute visit was spent in counseling on diabetes and treatment plan, reviewingall glucose and insulin data as well as relevant laboratory results with the patient and in the coordination of care on the inpatient unit. Consult Note - Faina Howe RN - 05/18/2022 12:23 PM EDT Aracelis Berkowitz was seen today by Cardiac Rehabilitation for: S/p PCI Activity evaluation - Will be assessed by [facility] RN-see notes for details. Pt needs ? PT assessment due to recent multiple falls. Educational packet regarding CAD, cardiac risk factors, and managing angina given to the patient. Heart diagram reviewed. Mediterranean diet guidelines briefly reviewed. Reviewed managing angina /use of sl nitroglycerin. Reviewed smoking cessation options. Participation in an outpatient cardiac rehabilitation program at [facility] was discussed. Patient agrees to a referral to this program. The referral will be sent at discharge and the patient should be contacted by the Program within 1- 2 weeks from discharge. documented in this encounter Plan of Treatment Upcoming Encounters Date Type Specialty Care Team Description 08/22/2022 Appointment Cardiology 08/22/2022 Laboratory Appointment Lab 08/22/2022 Office Visit Cardiology Tameka Neal MD [facility] [address] [place] [address] (Wo rk) Scheduled Orders Name Type Priority Associated Diagnoses Order S chedule Echocardiogram Echocardiography Routine Ischemic Expected: Transthoracic cardiomyopathy 05/19/2022, Expires: 11/19/2022 Scheduled Referrals Name Type Priority Associated Diagnoses Order S chedule Referral to Outpatient Referral Routine NSTEMI (non-ST elevat ed Ordered: Cardiac Rehab myocardial infarction) 05/02 Referral to Home Outpatient Referral Routine ASCVD (arterioscl erotic Ordered: Health cardiovascular disease) 05/03 documented as of this encounter Procedures Procedure Name Priority Date/Time Associated Comments Diagnosis POCT GLUCOSE Routine 05/23/2022 11:39 Results for this AM EDT procedure are i n the results section. ARTERIAL DUPLEX ARM, Routine 05/23/2022 11:38 Skin lesion Res ults for this UNILAT AM EDT procedure are i n the results section. POCT GLUCOSE Routine 05/23/2022 7:27 Results for this AM EDT procedure are i n the results section. HC VENIPUNCTURE Routine 05/23/2022 3:19 Results f or this AM EDT procedure are i n the results section. HEMOGRAM Routine 05/23/2022 3:19 Results for this AM EDT procedure are i n the results section. DIFFERENTIAL, AUTOMATED Routine 05/23/2022 3:19 R esults for this AM EDT procedure are i n the results section. HC CBC,PLT & AUTO DIFF Routine 05/23/2022 3:19 AM EDT POCT GLUCOSE Routine 05/22/2022 8:06 Results for [...] AM EDT disease involving procedure are in habematolel coronary the results artery of habematolel section. heart without angina pectoris HC VENIPUNCTURE Routine 05/22/2022 5:04 Results f or this AM EDT procedure are i n the results section. HEMOGRAM Routine 05/22/2022 5:04 Results for this AM EDT procedure are i n the results section. DIFFERENTIAL, AUTOMATED Routine 05/22/2022 5:04 R esults for this AM EDT procedure are i n the results section. HC CBC,PLT & AUTO DIFF Routine 05/22/2022 5:04 AM EDT HC MAGNESIUM, SERUM Routine 05/22/2022 5:04 Resul [...] AM EDT disease involving procedure are in habematolel coronary the results artery of habematolel section. heart without angina pectoris POCT GLUCOSE Routine 05/21/2022 4:53 Results for this AM EDT procedure are i n the results section. HC VENIPUNCTURE Routine 05/21/2022 3:50 Results f or this AM EDT procedure are i n the results section. HEMOGRAM Routine 05/21/2022 3:50 Results for this AM EDT procedure are i n the results section. DIFFERENTIAL, AUTOMATED Routine 05/21/2022 3:50 R esults for this AM EDT procedure are i n the results section. HC CBC,PLT & AUTO DIFF Routine 05/21/2022 3:50 AM EDT HC MAGNESIUM, SERUM Routine 05/21/2022 3:50 Resul [...] AM EDT disease involving procedure are in habematolel coronary the results artery of habematolel section. heart without angina pectoris POCT GLUCOSE Routine 05/20/2022 4:31 Results for this AM EDT procedure are i n the results section. HC VENIPUNCTURE Routine 05/20/2022 3:40 Results f or this AM EDT procedure are i n the results section. HEMOGRAM Routine 05/20/2022 3:40 Results for this AM EDT procedure are i n the results section. DIFFERENTIAL, AUTOMATED Routine 05/20/2022 3:40 R esults for this AM EDT procedure are i n the results section. HC CBC,PLT & AUTO DIFF Routine 05/20/2022 3:40 AM EDT HC MAGNESIUM, SERUM Routine 05/20/2022 3:40 Resul [...] AM EDT disease involving procedure are in habematolel coronary the results artery of habematolel section. heart without angina pectoris POCT GLUCOSE Routine 05/19/2022 4:10 Results for this AM EDT procedure are i n the results section. HC VENIPUNCTURE Routine 05/19/2022 3:33 Results f or this AM EDT procedure are i n the results section. HEMOGRAM Routine 05/19/2022 3:33 Results for this AM EDT procedure are i n the results section. DIFFERENTIAL, AUTOMATED Routine 05/19/2022 3:33 R esults for this AM EDT procedure are i n the results section. HC CBC,PLT & AUTO DIFF Routine 05/19/2022 3:33 AM EDT HC MAGNESIUM, SERUM Routine 05/19/2022 3:33 Resul ts for this AM EDT procedure are i n the results section. POCT GLUCOSE Routine 05/19/2022 12:15 Results for this AM EDT procedure are i n the results section. CESSATION SYSTEMS OUTREACH SPECIALIST SCAN 05/19/2022 12:00 Res ults for this [...] PM EDT disease involving procedure are in habematolel coronary the results artery of habematolel section. heart without angina pectoris US ABDOMEN [...] AM EDT disease involving procedure are in habematolel coronary the results artery of habematolel section. heart without angina pectoris BMP W/FASTING GLUCOSE STAT 05/17/2022 8:12 Res [...] AUTO DIFF STAT 05/17/2022 8:12 PM EDT HC PROBNP STAT 05/17/2022 8:12 Results for this PM EDT procedure are i n the results section. HC MAGNESIUM, SERUM STAT 05/17/2022 8:12 Resul ts for this PM EDT procedure are i n the results section. HEMOGLOBIN A1C STAT 05/17/2022 8:12 Results fo r this PM EDT procedure are i n the results section. HEPATIC FUNCTION PANEL STAT 05/17/2022 8:12 Re sults for this PM EDT procedure are i n the results section. POCT GLUCOSE Routine 05/17/2022 6:38 Results for this PM EDT procedure are i n the results section. POCT GLUCOSE Routine 05/17/2022 5:46 Results for this PM EDT procedure are i n the results section. EKG 12-LEAD Routine 05/17/2022 5:43 Coronary artery Results f or this PM EDT disease involving procedure are in habematolel coronary the results artery of habematolel section. heart without angina pectoris CARDIAC CATHETERIZATION Routine 05/17/2022 5:24 Coronary arter y Results for this PM EDT disease involving procedure are in habematolel coronary the results artery of habematolel section. heart without angina pectoris POCT GLUCOSE Routine 05/17/2022 12:44 Results for this PM EDT procedure are i n the results section. documented in this encounter Results POCT Glucose (05/23/2022 11:39 AM EDT) P athologist Signature POC Glucose 186 65 - 199 [facility] Comment: Supplemental ranges: <140 mg/dL before meals <180 mg/dL all other times of the day Specimen Anatomical Collection Method Collection Time Receive d Time (Source) Location / / Volume Laterality Blood 05/23/2022 11:39 05/23/2022 AM EDT 11:39 AM EDT Hernán Mariscal MD POINT OF CARE TEST ORDERABLE S Performing Organization Address City/State/[place] [address] Arterial Duplex Arm, Unilat (05/23/2022 11:38 AM EDT) Component Value Ref Test Analysis Performed At Patholo gist Range Method Time Signature VB Text Department: Vascular Surgery Lab VASCUBASE Report Patient: [id number] (December) CPT: 22136 Referring Physician: SHARMIN MARTINEZ ?? Phone: Indications: ??S/P cardiac cath [...] / Volume Laterality 05/23/2022 11:38 AM EDT Sharmin Che APRN VASCULAR ORDERABLES Performing Organization Address City/State/ZIP Code Phon e Number [email or web address] (ABNORMAL) POCT Glucose (05/23/2022 7:27 AM EDT) P athologist Signature POC Glucose 220 (H) 65 - 199 [facility] mg/dL [facility] Comment: Supplemental ranges: <140 mg/dL before meals <180 mg/dL all other times of the day Specimen Anatomical Collection Method Collection Time Receive d Time (Source) Location / / Volume Laterality Blood 05/23/2022 7:27 AM 7:27 EDT AM EDT Hernán Mariscal MD POINT OF CARE TEST ORDERABLE S Performing Organization Address City/State/ZIP Code Phon e Number [place] [phone] (ABNORMAL) Differential, Automated (05/23/2022 3:19 AM EDT) [facility] Method Time Signature Neutrophils % 36.4 % [facility] Neutr Abs (ANC) 2.86 1.70 - [facility] [address] [facility] x10(3)/[facility] LABORATORY Lymphocytes % 44.5 % [facility] Lymphocytes Abs 3.5 (H) 0.9 - 3.2 [facility] x10(3)/[facility] LABORATORY Monocytes % 9.8 % [facility] Monocyte Abs 0.8 0.3 - 0.9 [facility] x10(3)/[facility] LABORATORY Eosinophils % 8.4 % [facility] Eosinophils Abs 0.7 (H) 0.0 - 0.4 [facility] x10(3)/[facility] LABORATORY Basophils % 0.6 % [facility] Basophils Abs 0.0 0.0 - 0.1 [facility] x10(3)/[facility] LABORATORY Immature Gran % 0.30 % [facility] Comment: Immature granulocytes(IG's)percentage an d absolute count will include metamyelocytes, myelocytes, and promyelo cytes. Blood smears from CBCs yielding IG's will be scanned manually for concor dance. If this scan disagrees with the automated IG or if promyelocytes are not ed, a manual differential will be performed. Anaya Gran Abs 0.02 0.00 - 0.04 x10(3)/[facility] Y [facility] LABORATORY Specimen Anatomical Collection Method Collection Time Receive d Time (Source) Location / / Volume Laterality Blood 05/23/2022 3:19 AM 3:40 EDT AM EDT Resulting Agency Comment Spec In Lab Sharmin Che APRN HEMATOLOGY ORDERABLES Performing Organization Address City/[facility]/[place] [address] (ABNORMAL) Hemogram (05/23/2022 3:19 AM EDT) Analysis Performed At Patho logist Time Signature WBC 7.8 4.0 - 9.5 [facility] x10(3)/[facility] LABORATORY RBC 4.98 4.00 - [place] [address] [facility] x10(6)/[facility] LABORATORY Hemoglobin 14.3 11.7 [facility] 15[facility] g/dL [facility] Hematocrit 44.1 35.7 [facility] 45.8 % [facility] MCV 88.6 82.6 [facility] 94.4 [facility] LABORATORY MCH 28.7 27.1 - [facility] 32.0 pg [facility] MCHC 32.4 31.7 - [facility] 35[facility] g/dL [facility] Platelets 301 145 - 357 [facility] x10(3)/[facility] LABORATORY RDWSD 46.6 (H) 37.0 - [facility] 46.0 [facility] LABORATORY RDWCV 14.5 (H) 11.5 - [facility] 14.1 % [facility] MPV 10.4 7.6 - 12.9 [facility] LABORATORY nRBC % Auto 0.0 % [facility]ORY nRBC Abs Auto 0.000 0.000 - [facility] [address] [facility] x10(3)/[facility] LABORATORY Specimen Anatomical Collection Method Collection Time Receive d Time (Source) Location / / Volume Laterality Blood 05/23/2022 3:19 AM 2 3:40 EDT AM EDT Resulting Agency Comment Spec In Lab Sharmin Che APRN HEMATOLOGY ORDERABLES Performing Organization Address City/State/ZIP [place] [address] (ABNORMAL) BMP w/fasting Glucose (05/23/2022 3:19 AM EDT) P athologist Signature Glucose 277 (H) 65 - 99 [facility] Fasting mg/dL [facility] Comment: ?Fasting* Glucose Interpretive C [...] of Diabetes Mellitus, Position Statement from the [place] [employer]. ??Diabete s Care, Volume 33, Supplement 1, Oct 2009 BUN 24 (H) 8 - 18 mg/dL [facility] Creatinine 0.77 0.70 - 1.20 mg/dL [facility] Sodium 137 135 - 145 mmol/L [facility] Potassium 4.4 3.5 - 5.0 mmol/L [facility] Comment: Please note: ??Patients with WBC >100,00 0 may have falsely elevated Potassium levels. ??For accurate Potassium quantif ication in these patients send serum separator tube (gold top) for subsequent determinations. ??Contact the Clinical Chemistry Laboratory if there are any qu estions. Chloride 102 98 - 107 mmol/L [facility] CO2 24 22 - 31 mmol/L [facility] Anion Gap 11 5 - 15 mmol/L [facility] Calcium 8.8 8.5 - 10.5 mg/dL [facility] Estimated GFR 96 >=60 mL/min/1.73 m?? [facility] Comment: This patient's estimated [...] EDT Resulting Agency Comment Spec In Lab Sharmin Newton King DAMIÁN CHEMISTRY ORDERABLES Performing Organization Address City/State/[place] [address] POCT Glucose (05/22/2022 8:06 PM EDT) athologist Signature POC Glucose 153 65 - 199 [facility] mg/dL [facility] Comment: Supplemental ranges: <140 mg/dL before meals <180 mg/dL all other times of the day Specimen Anatomical Collection Method Collection Time Receive d Time (Source) Location / / Volume Laterality Blood 05/22/2022 8:06 PM 2 8:06 EDT PM EDT Hernán Mariscal MD POINT OF CARE TEST ORDERABLE S Performing Organization Address City/State/[place] [address] POCT Glucose (05/22/2022 5:39 PM EDT) athologist Signature POC Glucose 173 65 - 199 [facility] mg/dL [facility] Comment: Supplemental ranges: <140 mg/dL before meals <180 mg/dL all other times of the day Specimen Anatomical Collection Method Collection Time Receive d Time (Source) Location / / Volume Laterality Blood 05/22/2022 5:39 PM 2 5:39 EDT PM EDT Hernán Mariscal MD POINT OF CARE TEST ORDERABLE S Performing Organization Address City/State/[place] [address] (ABNORMAL) POCT Glucose (05/22/2022 12:07 PM EDT) athologist Signature POC Glucose 233 (H) 65 - 199 [facility] mg/dL [facility] Comment: Supplemental ranges: <140 mg/dL before meals <180 mg/dL all other times of the day Specimen Anatomical Collection Method Collection Time Receive d Time (Source) Location / / Volume Laterality Blood 05/22/2022 12:07 05/22/2022 PM EDT 12:07 PM EDT Hernán Mariscal MD POINT OF CARE TEST ORDERABLE S Performing Organization Address City/[facility]/[place] [address] POCT Glucose (05/22/2022 8:04 AM EDT) P athologist Signature POC Glucose 112 65 - 199 [facility] mg/dL [facility] Comment: Supplemental ranges: <140 mg/dL before meals <180 mg/dL all other times of the day Specimen Anatomical Collection Method Collection Time Receive d Time (Source) Location / / Volume Laterality Blood 05/22/2022 8:04 AM 8:04 EDT AM EDT Hernán Mariscal MD POINT OF CARE TEST ORDERABLE S Performing Organization Address City/[facility]/[place] [address] EKG 12 Lead (05/22/2022 6:31 AM EDT) Component Value Ref Range Test Analysis Performed Pathologis t Method Time At Signature Ventricular rate 57 BPM MUSE SYSTEM Atrial Rate 57 BPM MUSE SYSTEM P-R Interval 170 ms MUSE SYSTEM QRS Duration 94 ms MUSE SYSTEM Q-T Interval 454 ms MUSE SYSTEM QTC Calculated 441 ms MUSE SYSTEM (Bezet) Calculated P Flint 24 degrees MUSE SYSTEM Calculated R [place] 17 degrees MUSE SYSTEM Calculated T [place] 110 degrees MUSE SYSTEM INTERPRETATION Sinus bradycardia [...] / / Volume Laterality 05/22/2022 6:31 AM 8:09 EDT AM EDT Mary Wray TIME STUDY TECHNOLOGIST ECG ORDERABLES Performing Organization Address City/State/ZIP Code Phon e Number MUSE SYSTEM Amylase (05/22/2022 5:04 AM EDT) P athologist Signature Amylase 44 28 - 100 [facility] unit/L [facility] Specimen Anatomical Collection Method Collection Time Receive d Time (Source) Location / / Volume Laterality Blood Venous Draw / 05/22/2022 5:04 AM 05/22/20 22 5:18 Unknown EDT AM EDT Resulting Agency Comment Spec In Lab Sharmin Che TIME STUDY TECHNOLOGIST CHEMISTRY ORDERABLES Performing Organization Address City/State/[place] [address] Lipase (05/22/2022 5:04 AM EDT) athologist Signature Lipase 22 0 - 60 [facility] DAVID unit/L [facility] Specimen Anatomical Collection Method Collection Time Receive d Time (Source) Location / / Volume Laterality Blood Venous Draw / 05/22/2022 5:04 AM 05/22/20 22 5:18 Unknown EDT AM EDT Resulting Agency Comment Spec In Lab Sharmin Che TIME STUDY TECHNOLOGIST CHEMISTRY ORDERABLES Performing Organization Address City/[facility]/[place] [address] (ABNORMAL) Hepatic Function Panel (05/22/2022 5:04 AM EDT) Analysis Performed At Patho logist Time Signature Total Protein 6.6 6.1 - 8.0 [facility] g/dL [facility] Albumin 3.8 3.2 - 5.2 [facility] g/dL [facility] AST 31 (H) 0 - 30 [facility] unit/L [facility] ALT 29 0 - 30 [facility] unit/L [facility] Alk Phos 112 (H) 35 - 105 [facility] unit/L [facility] Total 0.2 0.2 - 1.3 [facility] Bilirubin mg/dL [facility] Bili, Direct Not Perf 0.0 - 0.3 [facility] mg/dL [facility] Comment: Specimen lipemic or turbid in a ppearance, unsuitable for analysis. Specimen Anatomical Collection Method Collection Time Receive d Time (Source) Location / / Volume Laterality Blood Venous Draw / 05/22/2022 5:04 AM 05/22/20 22 5:18 Unknown EDT AM EDT Resulting Agency Comment Spec In Lab Sharmin Newton King DAMIÁN CHEMISTRY ORDERABLES Performing Organization Address City/State/ZIP Code Phon e Number [place] [phone] (ABNORMAL) Differential, Automated (05/22/2022 5:04 AM EDT) [facility] Method Time Signature Neutrophils % 38.5 % [facility] Neutr Abs (ANC) 2.68 1.70 - [facility] [address] [facility] x10(3)[employer] LABORATORY Lymphocytes % 40.4 % [facility] Lymphocytes Abs 2.8 0.9 - 3.2 [facility] x10(3)/[facility] LABORATORY Monocytes % 11.2 % [facility] Monocyte Abs 0.8 0.3 - 0.9 [facility] x10(3)/[facility] LABORATORY Eosinophils % 8.9 % [facility] Eosinophils Abs 0.6 (H) 0.0 - 0.4 [facility] x10(3)/[facility] LABORATORY Basophils % 0.7 % [facility] Basophils Abs 0.0 0.0 - 0.1 [facility] x10(3)[facility] LABORATORY Immature Gran % 0.30 % [facility] Comment: Immature granulocytes(IG's)percentage an d absolute count will include metamyelocytes, myelocytes, and promyelo cytes. Blood smears from CBCs yielding IG's will be scanned manually for concor dance. If this scan disagrees with the automated IG or if promyelocytes are not ed, a manual differential will be performed. Anaya Gran Abs 0.02 0.00 - 0.04 x10(3)/[facility]ORY Specimen Anatomical Collection Method Collection Time Receive d Time (Source) Location / / Volume Laterality Blood 05/22/2022 5:04 AM 2 5:14 EDT AM EDT Resulting Agency Comment Spec In Lab Mary Clif Nils TIME STUDY TECHNOLOGIST HEMATOLOGY ORDERABLES Performing Organization Address City/State/ZIP Code Phon e Number [place] [phone] (ABNORMAL) Hemogram (05/22/2022 5:04 AM EDT) Analysis Performed At Patho logist Time Signature WBC 7.0 4.0 - 9.5 [facility] LABORATORY RBC 4.69 4.00 - [place] [facility] [address] [facility] x10(6)/[facility] LABORATORY Hemoglobin 13.6 11.7 - [facility] 15.5 g/dL [facility] Hematocrit 41.1 35.7 - [facility] 45.8 % [facility] MCV 87.6 82.6 - [facility] 94.4 [facility] LABORATORY MCH 29.0 27.1 - [facility] 32.0 pg [facility] MCHC 33.1 31.7 - [facility] JOSE DAVID 35.0 g/dL [facility] Platelets 314 145 - 357 [facility] x10(3)/[facility] LABORATORY RDWSD 47.2 (H) 37.0 - [facility] JOSE DAVID 46.0 [facility] LABORATORY RDWCV 14.6 (H) 11.5 [facility] 14.1 % [facility] MPV 10.1 7.6 - 12.9 [facility] nRBC % Auto 0.0 % [facility] nRBC Abs Auto 0.000 0.000 - [facility] JOSE DAVID [address] [facility] x10(3)/[facility] LABORATORY Specimen Anatomical Collection Method Collection Time Receive d Time (Source) Location / / Volume Laterality Blood 05/22/2022 5:04 AM 5:14 EDT AM EDT Resulting Agency Comment Spec In Lab Maryrosa Wray APRN HEMATOLOGY ORDERABLES Performing Organization Address City/State/[place] [address] Magnesium (05/22/2022 5:04 AM EDT) P athologist Signature Magnesium 1.03 0.69 - 1.07 [facility] mmol/L [facility] Specimen Anatomical Collection Method Collection Time Receive d Time (Source) Location / / Volume Laterality Blood 05/22/2022 5:04 AM 5:14 EDT AM EDT Resulting Agency Comment Spec In Lab Mary Wray TIME STUDY TECHNOLOGIST CHEMISTRY ORDERABLES Performing Organization Address City/State/ZIP Code Phon e Number [place] [phone] (ABNORMAL) BMP w/fasting Glucose (05/22/2022 5:04 AM EDT) athologist Signature Glucose 138 (H) 65 - 99 [facility] Fasting mg/dL [facility] Comment: ?Fasting* Glucose Interpretive C [...] of Diabetes Mellitus, Position Statement from the [place] [employer]. ??Diabete s Care, Volume 33, Supplement 1, Oct 2009 BUN 24 (H) 8 - 18 mg/dL [facility] Creatinine 0.84 0.70 - 1.20 mg/dL [facility] Sodium 138 135 - 145 mmol/L [facility] Potassium 4.5 3.5 - 5.0 mmol/L [facility] Comment: Please note: ??Patients with WBC >100,00 0 may have falsely elevated Potassium levels. ??For accurate Potassium quantif ication in these patients send serum separator tube (gold top) for subsequent determinations. ??Contact the Clinical Chemistry Laboratory if there are any qu estions. Chloride 103 98 - 107 mmol/L [facility] CO2 25 22 - 31 mmol/L [facility] Anion Gap 10 5 - 15 mmol/L [facility] Calcium 8.6 8.5 - 10.5 mg/dL [facility] Estimated GFR 87 >=60 mL/min/1.73 m?? [facility] Comment: This patient's estimated [...] / Volume Laterality Blood 05/22/2022 5:04 AM 2 5:14 EDT AM EDT Resulting Agency Comment Spec In Lab Mary Wray APRN CHEMISTRY ORDERABLES Performing Organization Address City/State/[place] [address] POCT Glucose (05/21/2022 7:34 PM EDT) P athologist Signature POC Glucose 139 65 - 199 [facility] mg/dL [facility] Comment: Supplemental ranges: <140 mg/dL before meals <180 mg/dL all other times of the day Specimen Anatomical Collection Method Collection Time Receive d Time (Source) Location / / Volume Laterality Blood 05/21/2022 7:34 PM 2 7:34 EDT PM EDT Hernán Mariscal MD POINT OF CARE TEST ORDERABLE S Performing Organization Address City/State/[place] [address] POCT Glucose (05/21/2022 4:37 PM EDT) athologist Signature POC Glucose 119 65 - 199 [facility] mg/dL [facility] Comment: Supplemental ranges: <140 mg/dL before meals <180 mg/dL all other times of the day Specimen Anatomical Collection Method Collection Time Receive d Time (Source) Location / / Volume Laterality Blood 05/21/2022 4:37 PM 4:37 EDT PM EDT Hernán Mariscal MD POINT OF CARE TEST ORDERABLE S Performing Organization Address City/State/ZIP Code Phon e Number [address] POCT Glucose (05/21/2022 12:34 PM EDT) athologist Signature POC Glucose 151 65 - 199 [facility] mg/dL [facility] Comment: Supplemental ranges: <140 mg/dL before meals <180 mg/dL all other times of the day Specimen Anatomical Collection Method Collection Time Receive d Time (Source) Location / / Volume Laterality Blood 05/21/2022 12:34 05/21/2022 PM EDT 12:34 PM EDT Hernán Mariscal MD POINT OF CARE TEST ORDERABLE S Performing Organization Address City/State/[place] [address] (ABNORMAL) POCT Glucose (05/21/2022 11:03 AM EDT) athologist Signature POC Glucose 225 (H) 65 - 199 [facility] mg/dL [facility] Comment: Supplemental ranges: <140 mg/dL before meals <180 mg/dL all other times of the day Specimen Anatomical Collection Method Collection Time Receive d Time (Source) Location / / Volume Laterality Blood 05/21/2022 11:03 05/21/2022 AM EDT 11:03 AM EDT Hernán Mariscal MD POINT OF CARE TEST ORDERABLE S Performing Organization Address City/State/[place] [address] (ABNORMAL) POCT Glucose (05/21/2022 9:48 AM EDT) athologist Signature POC Glucose 224 (H) 65 - 199 [facility] mg/dL [facility] Comment: Supplemental ranges: <140 mg/dL before meals <180 mg/dL all other times of the day Specimen Anatomical Collection Method Collection Time Receive d Time (Source) Location / / Volume Laterality Blood 05/21/2022 9:48 AM 2 9:48 EDT AM EDT Hernán Mariscal MD POINT OF CARE TEST ORDERABLE S Performing Organization Address City/State/[place] [address] POCT Glucose (05/21/2022 7:42 AM EDT) athologist Signature POC Glucose 162 65 - [address] [facility] Comment: Supplemental ranges: <140 mg/dL before meals <180 mg/dL all other times of the day Specimen Anatomical Collection Method Collection Time Receive d Time (Source) Location / / Volume Laterality Blood 05/21/2022 7:42 AM 2 7:42 EDT AM EDT Hernán Mariscal MD POINT OF CARE TEST ORDERABLE S Performing Organization Address City/State/[place] [address] EKG 12 Lead (05/21/2022 6:45 AM EDT) Component Value Ref Range Test Analysis Performed Pathologis t Method Time At Signature Ventricular rate 61 BPM MUSE SYSTEM Atrial Rate 61 BPM MUSE SYSTEM P-R Interval 170 ms MUSE SYSTEM QRS Duration 98 ms MUSE SYSTEM Q-T Interval 434 ms MUSE SYSTEM QTC Calculated 436 ms MUSE SYSTEM (Bezet) Calculated P [place] 44 degrees MUSE SYSTEM Calculated R [place] 82 degrees MUSE SYSTEM Calculated T [place] 101 degrees MUSE SYSTEM INTERPRETATION Normal sinus rhythm MUSE SYSTEM Anterolateral infarct (cited on or before 20-MAY-2022) T wave abnormality, consider lateral ischemia Abnormal ECG When compared with ECG of 20-MAY-2022 05:39, Questionable change in initial forces of Anterolateral leads Confirmed by MD Chrystal, Fabricio Felix ([id number]) on 05/23/2022 1 0:25:58 AM Specimen Anatomical Collection Method Collection Time Receive d Time (Source) Location / / Volume Laterality 05/21/2022 6:45 AM 2 EDT 10:25 AM EDT Mary Wray APRN ECG ORDERABLES Performing Organization Address City/State/ZIP Code Phon e Number MUSE SYSTEM POCT Glucose (05/21/2022 4:53 AM EDT) P athologist Signature POC Glucose 126 65 - 199 [facility] mg/dL [facility] Comment: Supplemental ranges: <140 mg/dL before meals <180 mg/dL all other times of the day Specimen Anatomical Collection Method Collection Time Receive d Time (Source) Location / / Volume Laterality Blood 05/21/2022 4:53 AM 4:53 EDT AM EDT Hernán Mariscal MD POINT OF CARE TEST ORDERABLE S Performing Organization Address City/State/[place] [address] (ABNORMAL) Differential, Automated (05/21/2022 3:50 AM EDT) Patholo gist Method Time Signature Neutrophils % 37.8 % [facility] LABORATORY Neutr Abs (ANC) 3.32 1.70 - [facility] [address] [facility] x10(3)/[facility] LABORATORY Lymphocytes % 42.4 % [facility] LABORATORY Lymphocytes Abs 3.7 (H) 0.9 - 3.2 [facility] x10(3)/[facility] LABORATORY Monocytes % 10.3 % [facility] LABORATORY Monocyte Abs 0.9 0.3 - 0.9 [facility] x10(3)/[facility] LABORATORY Eosinophils % 8.7 % [facility] LABORATORY Eosinophils Abs 0.8 (H) 0.0 - 0.4 [facility] x10(3)/[facility] LABORATORY Basophils % 0.6 % [facility] LABORATORY Basophils Abs 0.0 0.0 - 0.1 [facility] x10(3)/[facility] LABORATORY Immature Gran % 0.20 % [facility] Comment: Immature granulocytes(IG's)percentage an d absolute count will include metamyelocytes, myelocytes, and promyelo cytes. Blood smears from CBCs yielding IG's will be scanned manually for concor danmariama. If this scan disagrees with the automated IG or if promyelocytes are not ed, a manual differential will be performed. Anaya Gran Abs 0.02 0.00 - 0.04 x10(3)/[facility] MAR Y [facility] LABORATORY Specimen Anatomical Collection Method Collection Time Receive d Time (Source) Location / / Volume Laterality Blood 05/21/2022 3:50 AM 4:13 EDT AM EDT Resulting Agency Comment Spec In Lab Mary Wray TIME STUDY TECHNOLOGIST HEMATOLOGY ORDERABLES Performing Organization Address City/State/[place] [address] (ABNORMAL) Hemogram (05/21/2022 3:50 AM EDT) Analysis Performed At Patho logist Time Signature WBC 8.8 4.0 - 9.5 [facility] x10(3)/[facility] LABORATORY RBC 4.83 4.00 - [facility] [address] [facility] x10(6)/[facility] LABORATORY Hemoglobin 13.8 11.7 - [facility] 15.5 g/dL [facility] Hematocrit 42.9 35.7 - [facility] 45.8 % [facility] MCV 88.8 82.6 - [facility] 94.4 [facility] LABORATORY MCH 28.6 27.1 - [facility] 32.0 pg [facility] MCHC 32.2 31.7 - [facility] 35.0 g/dL [facility] Platelets 318 145 - 357 [facility] x10(3)/[facility] LABORATORY RDWSD 48.4 (H) 37.0 - [facility] 46.0 [facility] LABORATORY RDWCV 14.6 (H) 11.5 - [facility] 14.1 % [facility] MPV 10.2 7.6 - 12.9 [facility] LABORATORY nRBC % Auto 0.0 % [facility] LABORATORY nRBC Abs Auto 0.000 0.000 - [facility] [address] [facility] x10(3)/[facility] LABORATORY Specimen Anatomical Collection Method Collection Time Receive d Time (Source) Location / / Volume Laterality Blood 05/21/2022 3:50 AM 2 4:13 EDT AM EDT Resulting Agency Comment Spec In Lab Mary Wary APRN HEMATOLOGY ORDERABLES Performing Organization Address City/State/[place] [address] Magnesium (05/21/2022 3:50 AM EDT) P athologist Signature Magnesium 0.96 0.69 - 1.07 [facility] DAVID mmol/L [facility] Specimen Anatomical Collection Method Collection Time Receive d Time (Source) Location / / Volume Laterality Blood 05/21/2022 3:50 AM 2 4:13 EDT AM EDT Resulting Agency Comment Spec In Lab Mary Wray APRN CHEMISTRY ORDERABLES Performing Organization Address City/State/[place] [address] (ABNORMAL) BMP w/fasting Glucose (05/21/2022 3:50 AM EDT) P athologist Signature Glucose 139 (H) 65 - 99 [facility] Fasting mg/dL [facility] Comment: ?Fasting* Glucose Interpretive C [...] of Diabetes Mellitus, Position Statement from the [place] [employer]. ??Diabete s Care, Volume 33, Supplement 1, Oct 2009 BUN 25 (H) 8 - 18 mg/dL [facility] Creatinine 0.85 0.70 - 1.20 mg/dL [facility] LABORATORY Sodium 139 135 - 145 mmol/L [facility] Potassium 4.9 3.5 - 5.0 mmol/L [facility] Comment: Please note: ??Patients with WBC >100,00 0 may have falsely elevated Potassium levels. ??For accurate Potassium quantif ication in these patients send serum separator tube (gold top) for subsequent determinations. ??Contact the Clinical Chemistry Laboratory if there are any qu estions. Chloride 102 98 - 107 mmol/L [facility] CO2 27 22 - 31 mmol/L [facility] Anion Gap 10 5 - 15 mmol/L [facility] Calcium 8.9 8.5 - 10.5 mg/dL [facility] Estimated GFR 86 >=60 mL/min/1.73 m?? [facility] Comment: This patient's estimated [...] (Source) Location / / Volume Laterality Blood 05/21/2022 3:50 AM 2 4:13 EDT AM EDT Resulting Agency Comment Spec In Lab Mary Wray APRN CHEMISTRY ORDERABLES Performing Organization Address City/State/[place] [address] POCT Glucose (05/20/2022 11:31 PM EDT) P athologist Signature POC Glucose 107 65 - 199 [facility] mg/dL [facility] Comment: Supplemental ranges: <140 mg/dL before meals <180 mg/dL all other times of the day Specimen Anatomical Collection Method Collection Time Receive d Time (Source) Location / / Volume Laterality Blood 05/20/2022 11:31 05/20/2022 PM EDT 11:31 PM EDT Hernán Mariscal MD POINT OF CARE TEST ORDERABLE S Performing Organization Address City/State/ZIP Code Phon e Number [address] POCT Glucose (05/20/2022 8:35 PM EDT) athologist Signature POC Glucose 91 65 - 199 [facility] mg/dL [facility] Comment: Supplemental ranges: <140 mg/dL before meals <180 mg/dL all other times of the day Specimen Anatomical Collection Method Collection Time Receive d Time (Source) Location / / Volume Laterality Blood 05/20/2022 8:35 PM 2 8:35 EDT PM EDT Hernán Mariscal MD POINT OF CARE TEST ORDERABLE S Performing Organization Address City/State/ZIP Code Phon e Number [address] POCT Glucose (05/20/2022 4:24 PM EDT) athologist Signature POC Glucose 93 65 - 199 [facility] mg/dL [facility] Comment: Supplemental ranges: <140 mg/dL before meals <180 mg/dL all other times of the day Specimen Anatomical Collection Method Collection Time Receive d Time (Source) Location / / Volume Laterality Blood 05/20/2022 4:24 PM 2 4:24 EDT PM EDT Hernán Mariscal MD POINT OF CARE TEST ORDERABLE S Performing Organization Address City/State/ZIP Code Phon e Number [address] POCT Glucose (05/20/2022 11:27 AM EDT) athologist Signature POC Glucose 144 65 - 199 [facility] mg/dL [facility] Comment: Supplemental ranges: <140 mg/dL before meals <180 mg/dL all other times of the day Specimen Anatomical Collection Method Collection Time Receive d Time (Source) Location / / Volume Laterality Blood 05/20/2022 11:27 05/20/2022 AM EDT 11:27 AM EDT Hernán Mariscal MD POINT OF CARE TEST ORDERABLE S Performing Organization Address City/State/[place] [address] (ABNORMAL) POCT Glucose (05/20/2022 7:30 AM EDT) P athologist Signature POC Glucose 233 (H) 65 - 199 [facility] mg/dL [facility] Comment: Supplemental ranges: <140 mg/dL before meals <180 mg/dL all other times of the day Specimen Anatomical Collection Method Collection Time Receive d Time (Source) Location / / Volume Laterality Blood 05/20/2022 7:30 AM 7:30 EDT AM EDT Hernán Mariscal MD POINT OF CARE TEST ORDERABLE S Performing Organization Address City/State/[place] [address] EKG 12 Lead (05/20/2022 5:39 AM EDT) Component Value Ref Range Test Analysis Performed Pathologis t Method Time At Signature Ventricular rate 66 BPM MUSE SYSTEM Atrial Rate 66 BPM MUSE SYSTEM P-R Interval 170 ms MUSE SYSTEM QRS Duration 90 ms MUSE SYSTEM Q-T Interval 416 ms MUSE SYSTEM QTC Calculated 436 ms MUSE SYSTEM (Bezet) Calculated P [place] 36 degrees MUSE SYSTEM Calculated R [place] 23 degrees MUSE SYSTEM Calculated T [place] 95 degrees MUSE SYSTEM INTERPRETATION Normal sinus rhythm MUSE SYSTEM Septal infarct (cited on or before Nonspecific T wave abnormality Abnormal ECG When compared with ECG of 19-MAY-2022 23:33, No significant change was found I personally reviewed the tracing and edited the fellows int erpretation Confirmed by fellow MD Krishnan Ashley ([id number]) on 05/20/2022 7:30:32 AM Confirmed by MD Garcia Danette ([id number]) on 05/20/2022 8:26:34 AM Specimen Anatomical Collection Method Collection Time Receive d Time (Source) Location / / Volume Laterality 05/20/2022 5:39 AM 8:26 EDT AM EDT Mary L Stender TIME STUDY TECHNOLOGIST ECG ORDERABLES Performing Organization Address City/State/ZIP Code Phon e Number MUSE SYSTEM POCT Glucose (05/20/2022 4:31 AM EDT) P athologist Signature POC Glucose 186 65 - [address] [facility] Comment: Supplemental ranges: <140 mg/dL before meals <180 mg/dL all other times of the day Specimen Anatomical Collection Method Collection Time Receive d Time (Source) Location / / Volume Laterality Blood 05/20/2022 4:31 AM 4:31 EDT AM EDT Tameka Chu MD POINT OF CARE TEST ORDERAB LES Performing Organization Address City/State/[place] [address] (ABNORMAL) Differential, Automated (05/20/2022 3:40 AM EDT) Patholo gist Method Time Signature Neutrophils % 40.8 % [facility] Neutr Abs (ANC) 3.03 1.70 - [facility] [address] [facility] x10(3)/[facility] LABORATORY Lymphocytes % 42.5 % [facility]OR[facility]ORY Lymphocytes Abs 3.2 0.9 - 3.2 [facility] x10(3)/[facility] LABORATORY Monocytes % 8.9 % [facility] LABORATORY Monocyte Abs 0.7 0.3 - 0.9 [facility] x10(3)/[facility] LABORATORY Eosinophils % 7.0 % [facility] Eosinophils Abs 0.5 (H) 0.0 - 0.4 [facility] x10(3)/[facility] LABORATORY Basophils % 0.5 % [facility] Basophils Abs 0.0 0.0 - 0.1 [facility] x10(3)/[facility] LABORATORY Immature Gran % 0.30 % [facility] Comment: Immature granulocytes(IG's)percentage an d absolute count will include metamyelocytes, myelocytes, and promyelo cytes. Blood smears from CBCs yielding IG's will be scanned manually for concor dance. If this scan disagrees with the automated IG or if promyelocytes are not ed, a manual differential will be performed. Anaya Gran Abs 0.02 0.00 - 0.04 x10(3)/[facility] LABORATORY Specimen Anatomical Collection Method Collection Time Receive d Time (Source) Location / / Volume Laterality Blood 05/20/2022 3:40 AM 4:03 EDT AM EDT Resulting Agency Comment Spec In Lab Mary Wray TIME STUDY TECHNOLOGIST HEMATOLOGY ORDERABLES Performing Organization Address City/State/[place] [address] (ABNORMAL) Hemogram (05/20/2022 3:40 AM EDT) Analysis Performed At Patho logist Time Signature WBC 7.4 4.0 - 9.5 [facility] x10(3)/[facility] LABORATORY RBC 4.88 4.00 [facility] [address] [facility] x10(6)/[facility] LABORATORY Hemoglobin 13.9 11.7 - [facility] 15.5 g/dL [facility] Hematocrit 43.7 35.7 - [facility] 45.8 % [facility] MCV 89.5 82.6 - [facility] 94.4 [facility] LABORATORY MCH 28.5 27.1 - [facility] JOSE DAVID 32.0 pg [facility] MCHC 31.8 31.7 - [facility] 35.0 g/dL [facility] Platelets 295 145 - 357 [facility] x10(3)/[facility] LABORATORY RDWSD 49.1 (H) 37.0 - [facility] JOSE DAVID 46.0 [facility] LABORATORY RDWCV 14.9 (H) 11.5 - [facility] 14.1 % [facility] MPV 10.1 7.6 - 12.9 [facility] LABORATORY nRBC % Auto 0.0 % [facility] LABORATORY nRBC Abs Auto 0.000 0.000 - [facility] JOSE DAVID [address] [facility] x10(3)/[facility] LABORATORY Specimen Anatomical Collection Method Collection Time Receive d Time (Source) Location / / Volume Laterality Blood 05/20/2022 3:40 AM 2 4:03 EDT AM EDT Resulting Agency Comment Spec In Lab Mary Wray APRN HEMATOLOGY ORDERABLES Performing Organization Address City/State/ZIP Code Phon e Number [address] (ABNORMAL) Magnesium (05/20/2022 3:40 AM EDT) P athologist Signature Magnesium 1.09 (H) 0.69 - 1.07 [facility] mmol/L [facility] Specimen Anatomical Collection Method Collection Time Receive d Time (Source) Location / / Volume Laterality Blood 05/20/2022 3:40 AM 2 4:03 EDT AM EDT Resulting Agency Comment Spec In Lab Mary Wray APRN CHEMISTRY ORDERABLES Performing Organization Address City/[facility]/[place] [address] (ABNORMAL) BMP w/fasting Glucose (05/20/2022 3:40 AM EDT) P athologist Signature Glucose 152 (H) 65 - 99 [facility] Fasting mg/dL [facility] Comment: ?Fasting* Glucose Interpretive C riteria Normal ?65-99 mg/dL Impaired Fasting glucose ?100-125 mg/dL Consistent with Diabetes Mellitus ? >or= 126 mg/dL *Fasting is defined as no caloric intake for at least 8 hours In the absence of unequivocal hypergly cemia a plasma glucose value of >or= 126 mg/dL should be repeated on a subseq u day. Diagnosis and Classification of Diabetes Mellitus, Position Statement from the [place] [employer]. ??Diabete s Care, Volume 33, Supplement 1, Oct 2009 BUN 25 (H) 8 - 18 mg/dL [facility] Creatinine 0.77 0.70 - 1.20 mg/dL [facility]ORATORY Sodium 142 135 - 145 mmol/L [facility] Potassium 5.5 (H) 3.5 - 5.0 mmol/L [facility] Comment: Please note: ??Patients with WBC >100,00 0 may have falsely elevated Potassium levels. ??For accurate Potassium quantif ication in these patients send serum separator tube (gold top) for subsequent determinations. ??Contact the Clinical Chemistry Laboratory if there are any qu estions. Chloride 107 98 - 107 mmol/L [facility]ORY CO2 28 22 - 31 mmol/L [facility]ORY Anion Gap 7 5 - 15 mmol/L [facility] Calcium 9.0 8.5 - 10.5 mg/dL [facility] Estimated GFR 96 >=60 mL/min/1.73 m?? [facility] Comment: This patient's estimated [...] (Source) Location / / Volume Laterality Blood 05/20/2022 3:40 AM 2 4:03 EDT AM EDT Resulting Agency Comment Spec In Lab Mary Wray TIME STUDY TECHNOLOGIST CHEMISTRY ORDERABLES Performing Organization Address City/State/[place] [address] POCT Glucose (05/20/2022 3:27 AM EDT) P athologist Signature POC Glucose 165 65 - 199 [facility] mg/dL [facility] Comment: Supplemental ranges: <140 mg/dL before meals <180 mg/dL all other times of the day Specimen Anatomical Collection Method Collection Time Receive d Time (Source) Location / / Volume Laterality Blood 05/20/2022 3:27 AM 3:27 EDT AM EDT Tameka hCu MD POINT OF CARE TEST ORDERAB LES Performing Organization Address City/State/[place] [address] POCT Glucose (05/20/2022 12:25 AM EDT) P athologist Signature POC Glucose 137 65 - 199 [facility] mg/dL [facility] Comment: Supplemental ranges: <140 mg/dL before meals <180 mg/dL all other times of the day Specimen Anatomical Collection Method Collection Time Receive d Time (Source) Location / / Volume Laterality Blood 05/20/2022 12:25 05/20/2022 AM EDT 12:25 AM EDT Tameka Chu MD POINT OF CARE TEST ORDERAB LES Performing Organization Address City/[facility]/[place] [address] EKG 12 Lead (05/19/2022 11:33 PM EDT) Component Value Ref Range Test Analysis Performed Pathologis t Method Time At Signature Ventricular rate 66 BPM MUSE SYSTEM Atrial Rate 66 BPM MUSE SYSTEM P-R Interval 162 ms MUSE SYSTEM QRS Duration 90 ms MUSE SYSTEM Q-T Interval 396 ms MUSE SYSTEM QTC Calculated 415 ms MUSE SYSTEM (Bezet) Calculated P [place] 44 degrees MUSE SYSTEM Calculated R [place] 59 degrees MUSE SYSTEM Calculated T [place] 103 degrees MUSE SYSTEM INTERPRETATION Normal sinus rhythm MUSE SYSTEM Poor R wave progression T wave abnormality Lateral leads Abnormal ECG When compared with ECG of 19-MAY-2022 05:59, No significant change was found I personally reviewed the tracing and edited the fellows int erpretation Confirmed by fellow MD Eulogio, Gita ([id number]) on 05/20/2022 9:02:34 AM Confirmed by MD TASHIA, CAYETANO ([id number]) on 05/20/2022 9:12:22 AM Specimen Anatomical Collection Method Collection Time Receive d Time (Source) Location / / Volume Laterality 05/19/2022 11:33 05/20/2022 9:12 PM EDT AM EDT Tameka Chu MD ECG ORDERABLES Performing Organization Address City/State/ZIP Code Phon e Number MUSE SYSTEM POCT Glucose (05/19/2022 8:35 PM EDT) athologist Signature POC Glucose 145 65 - 199 [facility] mg/dL [facility] Comment: Supplemental ranges: <140 mg/dL before meals <180 mg/dL all other times of the day Specimen Anatomical Collection Method Collection Time Receive d Time (Source) Location / / Volume Laterality Blood 05/19/2022 8:35 PM 2 8:35 EDT PM EDT Tameka Chu MD POINT OF CARE TEST ORDERAB LES Performing Organization Address City/[facility]/ZIP Code Phon e Number [address] POCT Glucose (05/19/2022 6:07 PM EDT) athologist Signature POC Glucose 130 65 - 199 [facility] mg/dL [facility] Comment: Supplemental ranges: <140 mg/dL before meals <180 mg/dL all other times of the day Specimen Anatomical Collection Method Collection Time Receive d Time (Source) Location / / Volume Laterality Blood 05/19/2022 6:07 PM 2 6:07 EDT PM EDT Tameka Chu MD POINT OF CARE TEST ORDERAB LES Performing Organization Address City/[facility]/[place] [address] POCT Glucose (05/19/2022 12:41 PM EDT) athologist Signature POC Glucose 144 65 - 199 [facility] mg/dL [facility] Comment: Supplemental ranges: <140 mg/dL before meals <180 mg/dL all other times of the day Specimen Anatomical Collection Method Collection Time Receive d Time (Source) Location / / Volume Laterality Blood 05/19/2022 12:41 05/19/2022 PM EDT 12:41 PM EDT Tameka Chu MD POINT OF CARE TEST ORDERAB LES Performing Organization Address City/State/ZIP Code Phon e Number [facility] [place] [address] CARDIAC CATHETERIZATION (05/19/2022 10:17 AM EDT) Anatomical Region Laterality Modality Other Specimen (Source) Anatomical Location Collection Method / Collectio n Time Received Time / Laterality Volume Narrative 05/19/2022 10:29 AM EDT ?[facility] ? Cardiac Cathete rization/Intervention Report ? Patient Name: Sho, Aracelis ? Procedure Date: 05/19/2022 ? A #: [id number] ? Primary Physician: Khalida Otero I ? Case #: [id number] ? File Name: [id number] ? Catheterization Order Number: [id number] ? [facility] ? Final Report [place], [place] ? Patient Name: ? Aracelis Sho ? ID#: ?[id number] ? : ?1975 ? Procedure Date: ? May 19, 2022 ?Case #: ? [id number] ? Room: ? 1 ? Case Physician: ? Khalida morgan MStephon. ? Start: ?09:55 ?Fellow: ? Tai Freire DKaia ?Admission: ??05/17/2022 ?Kaveh fragoso M.D. ? Procedures: ?* Right Heart Catheterization ?* Oximetry ? History ?Aracelis Berkowitz is a 46 year old wom an. She has hypertension. The patient's ?smoking status is Current with Current - Every Day frequency, using ?cigarettes. Cigarette use is He liban (>=10/day). She has ?hypercholesterolemia. The patie [...] to Procedure: ? Aspirin, Angiotensin II Receptor Jerri, Beta Jerri and Statin. ? Indications for Diagnostic Cath: ?The priority of the diagnostic procedure was Urgent. The indication for ?the label machine operator visit is cardiomyo julian. Chest pain symptom [...] ? Khalida Fatima MD CARDIAC CATH ORDERABLES (ABNORMAL) POCT Glucose (05/19/2022 7:31 AM EDT) P athologist Signature POC Glucose 235 (H) 65 - 199 [facility] mg/dL [facility] Comment: Supplemental ranges: <140 mg/dL before meals <180 mg/dL all other times of the day Specimen Anatomical Collection Method Collection Time Receive d Time (Source) Location / / Volume Laterality Blood 05/19/2022 7:31 AM 7:31 EDT AM EDT Tameka Chu MD POINT OF CARE TEST ORDERAB LES Performing Organization Address City/State/[place] [address] EKG 12 Lead (05/19/2022 5:59 AM EDT) Component Value Ref Range Test Analysis Performed Pathologis t Method Time At Signature Ventricular rate 74 BPM MUSE SYSTEM Atrial Rate 74 BPM MUSE SYSTEM P-R Interval 170 ms MUSE SYSTEM QRS Duration 92 ms MUSE SYSTEM Q-T Interval 422 ms MUSE SYSTEM QTC Calculated 468 ms MUSE SYSTEM (Bezet) Calculated P [place] 35 degrees MUSE SYSTEM Calculated R [place] 58 degrees MUSE SYSTEM Calculated T [place] 96 degrees MUSE SYSTEM INTERPRETATION Normal sinus rhythm MUSE SYSTEM Septal infarct (cited on or before 18-MAY-2022) ST & T wave abnormality, consider anterolateral ischemia Abnormal ECG When compared with ECG of 18-MAY-2022 19:05, (unconfirmed) Nonspecific T wave abnormality now evident in Anterior leads I personally reviewed the tracing and edited the fellows int erpretation Confirmed by fellow MD Eulogio, Gita ([id number]) on 05/19/2022 7:24:01 PM Confirmed by MD Garcia Danette ([id number]) on 05/20/2022 8:25:01 AM Specimen Anatomical Collection Method Collection Time Receive d Time (Source) Location / / Volume Laterality 05/19/2022 5:59 AM 2 8:25 EDT AM EDT Mary Wray TIME STUDY TECHNOLOGIST ECG ORDERABLES Performing Organization Address City/State/ZIP Code Phon e Number MUSE SYSTEM (ABNORMAL) POCT Glucose (05/19/2022 4:10 AM EDT) P athologist Signature POC Glucose 250 (H) 65 - 199 [facility] mg/dL [facility] Comment: Supplemental ranges: <140 mg/dL before meals <180 mg/dL all other times of the day Specimen Anatomical Collection Method Collection Time Receive d Time (Source) Location / / Volume Laterality Blood 05/19/2022 4:10 AM 2 4:10 EDT AM EDT Tameka Chu MD POINT OF CARE TEST ORDERAB LES Performing Organization Address City/State/[place] [address] (ABNORMAL) Differential, Automated (05/19/2022 3:33 AM EDT) Patholo gist Method Time Signature Neutrophils % 44.3 % [facility] LABORATORY Neutr Abs (ANC) 3.06 1.70 - [facility] [address] [facility] x10(3)/[facility] LABORATORY Lymphocytes % 39.4 % [facility] LABORATORY Lymphocytes Abs 2.7 0.9 - 3.2 [facility] x10(3)/[facility] LABORATORY Monocytes % 8.4 % [facility] LABORATORY Monocyte Abs 0.6 0.3 - 0.9 [facility] x10(3)/[facility] LABORATORY Eosinophils % 7.4 % [facility] LABORATORY Eosinophils Abs 0.5 (H) 0.0 - 0.4 [facility] LABORATORY Basophils % 0.4 % [facility] LABORATORY Basophils Abs 0.0 0.0 - 0.1 [facility] x10(3)/[facility] LABORATORY Immature Gran % 0.10 % [facility] Comment: Immature granulocytes(IG's)percentage an d absolute count will include metamyelocytes, myelocytes, and promyelo cytes. Blood smears from CBCs yielding IG's will be scanned manually for concor dance. If this scan disagrees with the automated IG or if promyelocytes are not ed, a manual differential will be performed. Anaya Gran Abs 0.01 0.00 - 0.04 x10(3)/[facility] MAR Y [facility] LABORATORY Specimen Anatomical Collection Method Collection Time Receive d Time (Source) Location / / Volume Laterality Blood 05/19/2022 3:33 AM 4:03 EDT AM EDT Resulting Agency Comment Spec In Lab Mary Wray APRN HEMATOLOGY ORDERABLES Performing Organization Address City/State/ZIP Code Phon e Number [place] [id number] (ABNORMAL) Hemogram (05/19/2022 3:33 AM EDT) Analysis Performed At Patho logist Time Signature WBC 6.9 4.0 - 9.5 [facility] x10(3)/[facility] LABORATORY RBC 4.70 4.00 - [place] [address] [facility] x10(6)/[facility] LABORATORY Hemoglobin 13.9 11.7 - [facility] 15.5 g/dL [facility] Hematocrit 42.7 35.7 - [facility]SE DAVID 45.8 % [facility] MCV 90.9 82.6 - [facility] 94.4 fL [facility] MCH 29.6 27.1 - [place] 32.0 pg [facility] MCHC 32.6 31.7 - [facility] 35.0 g/dL [facility] Platelets 300 145 - 357 [facility] x10(3)/[facility] LABORATORY RDWSD 49.9 (H) 37.0 - [place] 46.0 [facility] LABORATORY RDWCV 15.0 (H) 11.5 - [facility] [place] DAV[place] 14.1 % [facility] MPV 10.2 7.6 - 12.9 [place] LABORATORY nRBC % Auto 0.0 % [facility] LABORATORY nRBC Abs Auto 0.000 0.000 - [place] [address] [facility] x10(3)/[facility] LABORATORY Specimen Anatomical Collection Method Collection Time Receive d Time (Source) Location / / Volume Laterality Blood 05/19/2022 3:33 AM 2 4:03 EDT AM EDT Resulting Agency Comment Spec In Lab Mary Wray APRN HEMATOLOGY ORDERABLES Performing Organization Address City/[facility]/ZIP Code Phon e Number [address] (ABNORMAL) Magnesium (05/19/2022 3:33 AM EDT) athologist Signature Magnesium 1.17 (H) 0.69 - 1.07 [facility] mmol/L [facility] Specimen Anatomical Collection Method Collection Time Receive d Time (Source) Location / / Volume Laterality Blood 05/19/2022 3:33 AM 2 4:03 EDT AM EDT Resulting Agency Comment Spec In Lab Mary Clif Nils STEEL CHEMISTRY ORDERABLES Performing Organization Address City/[facility]/[place] [address] (ABNORMAL) BMP w/fasting Glucose (05/19/2022 3:33 AM EDT) P athologist Signature Glucose 268 (H) 65 - 99 [facility] Fasting mg/dL [facility] Comment: ?Fasting* Glucose Interpretive C [...] of Diabetes Mellitus, Position Statement from the [place] [employer]. ??Diabete s Care, Volume 33, Supplement 1, Oct 2009 BUN 19 (H) 8 - 18 mg/dL [facility]ORY Creatinine 0.83 0.70 - 1.20 mg/dL [facility] LABORATORY Sodium 142 135 - 145 mmol/L [facility] Comment: result rechecked-KS Potassium 4.8 3.5 - 5.0 mmol/L [facility] Comment: result rechecked-KS Please note: ??Patients with WBC >100,00 0 may have falsely elevated Potassium levels. ??For accurate Potassium quantif ication in these patients send serum separator tube (gold top) for subsequent determinations. ??Contact the Clinical Chemistry Laboratory if there are any qu estions. Chloride 106 98 - 107 mmol/L [facility] Comment: result rechecked-KS CO2 29 22 - 31 mmol/L [facility] Anion Gap 7 5 - 15 mmol/L [facility] Calcium 8.5 8.5 - 10.5 mg/dL [facility] Estimated GFR 88 >=60 mL/min/1.73 m?? [facility] Comment: This patient's estimated [...] (Source) Location / / Volume Laterality Blood 05/19/2022 3:33 AM 2 4:03 EDT AM EDT Resulting Agency Comment Spec In Lab Mary Wray TIME STUDY TECHNOLOGIST CHEMISTRY ORDERABLES Performing Organization Address City/[facility]/ZIP Code Phon e Number [address] POCT Glucose (05/19/2022 12:15 AM EDT) athologist Signature POC Glucose 147 65 - 199 [place] mg/dL [facility] Comment: Supplemental ranges: <140 mg/dL before meals <180 mg/dL all other times of the day Specimen Anatomical Collection Method Collection Time Receive d Time (Source) Location / / Volume Laterality Blood 05/19/2022 12:15 05/19/2022 AM EDT 12:15 AM EDT Tameka Chu MD POINT OF CARE TEST ORDERAB LES Performing Organization Address City/[facility]/[place] [address] SCAN DOC: CESSATION SYSTEMS OUTREACH SPECIALIST (05/19/2022 12:00 AM EDT) Anatomical Region Laterality Modality Other Narrative 05/19/2022 12:00 AM EDT This result has an attachment that is no t available. Ordered by an unspecified provider. Scanning Provider MEDIA MGR SCAN EXT ORDR/RSLT POCT Glucose (05/18/2022 8:21 PM EDT) athologist Signature POC Glucose 184 65 - 199 [place] mg/dL [facility] Comment: Supplemental ranges: <140 mg/dL before meals <180 mg/dL all other times of the day Specimen Anatomical Collection Method Collection Time Receive d Time (Source) Location / / Volume Laterality Blood 05/18/2022 8:21 PM 2 8:21 EDT PM EDT Tameka Chu MD POINT OF CARE TEST ORDERAB LES Performing Organization Address City/[facility]/[place] [address] POCT Glucose (05/18/2022 4:04 PM EDT) P athologist Signature POC Glucose 99 65 - 199 [facility] mg/dL [facility] Comment: Supplemental ranges: <140 mg/dL before meals <180 mg/dL all other times of the day Specimen Anatomical Collection Method Collection Time Receive d Time (Source) Location / / Volume Laterality Blood 05/18/2022 4:04 PM 2 4:04 EDT PM EDT Tameka Chu MD POINT OF CARE TEST ORDERAB LES Performing Organization Address City/State/[place] [address] EKG 12 Lead (05/18/2022 3:40 PM EDT) Component Value Ref Range Test Analysis Performed Pathologis t Method Time At Signature Ventricular rate 65 BPM MUSE SYSTEM Atrial Rate 65 BPM MUSE SYSTEM P-R Interval 164 ms MUSE SYSTEM QRS Duration 90 ms MUSE SYSTEM Q-T Interval 402 ms MUSE SYSTEM QTC Calculated 418 ms MUSE SYSTEM (Bezet) Calculated P Flint 34 degrees MUSE SYSTEM Calculated R [place] 42 degrees MUSE SYSTEM Calculated T Flint 105 degrees MUSE SYSTEM INTERPRETATION Normal sinus rhythm MUSE SYSTEM Anteroseptal infarct (cited on or before 18-MAY-2022) Possible Lateral infarct , age undetermined Abnormal ECG When compared with ECG of 18-MAY-2022 04:40, Borderline criteria for Lateral infarct are now Present Nonspecific T wave abnormality, worse in Lateral leads Confirmed by MD Garcia Danette ([id number]) on 05/19/2022 7:34:15 AM Specimen Anatomical Collection Method Collection Time Receive d Time (Source) Location / / Volume Laterality 05/18/2022 3:40 PM 2 7:34 EDT AM EDT Mary Wray TIME STUDY TECHNOLOGIST ECG ORDERABLES Performing Organization Address City/State/ZIP Code Phon e Number MUSE SYSTEM (ABNORMAL) US Abdomen Limited (05/18/2022 2:52 PM [...] collapsed. Electronically signed by: Marc Rivera, Radiology [place] ([phone]), at 3:07 PM Thank you for letting us participate in the care of this patient. If you are a [facility] and have any questions regarding this report, please contact the number above. For patients who have ques tions, please contact the [facility] professio nal that requested your imaging first. ?Billie Juan, [facility] Chief Electronically Signed Final Report ?? 03:13 pm Narrative 05/18/2022 3:13 PM EDT Abdominal ? (Signed Final 05/18/2022 03:13 pm) PATIENT INFO: ID #: ? [id number] ?: ??[birth year] (46 yrs)(F) Name: ? ARACELIS SHO ? Visit Date: 05/18/2022 02:50 pm PERFORMED BY: Performed By: ? Aubrey Lopez RDMS Attending: ?Drake OROPEZA, Billie Soto Referred By: ?PATY BUENO Location: ? [place] SERVICE(S) PROVIDED: UABDLIM - Abdominal Limited Survey Sing le ? [id number] Organ or Quadrant - [id number] URETRO - Retroperiteneal Complete - IMG 3517 ? [id number] INDICATIONS: RUQ pain, r/o cholelithiasis/cholecysti its, Add [...] Agency Comment Unexpected Finding [facility] POCT Glucose (05/18/2022 11:16 AM EDT) athologist Signature POC Glucose 152 65 - 199 [facility] mg/dL [facility] Comment: Supplemental ranges: <140 mg/dL before meals <180 mg/dL all other times of the day Specimen Anatomical Collection Method Collection Time Receive d Time (Source) Location / / Volume Laterality Blood 05/18/2022 11:16 05/18/2022 AM EDT 11:16 AM EDT Tameka Chu MD POINT OF CARE TEST ORDERAB LES Performing Organization Address City/State/[place] [address] (ABNORMAL) POCT Glucose (05/18/2022 8:02 AM EDT) athologist Signature POC Glucose 235 (H) 65 - 199 [place] mg/dL [facility] Comment: Supplemental ranges: <140 mg/dL before meals <180 mg/dL all other times of the day Specimen Anatomical Collection Method Collection Time Receive d Time (Source) Location / / Volume Laterality Blood 05/18/2022 8:02 AM 2 8:02 EDT AM EDT Tameka Chu MD POINT OF CARE TEST ORDERAB LES Performing Organization Address City/State/[place] [address] POCT Glucose (05/18/2022 6:34 AM EDT) athologist Signature POC Glucose 191 65 - 199 [facility] mg/dL [facility] Comment: Supplemental ranges: <140 mg/dL before meals <180 mg/dL all other times of the day Specimen Anatomical Collection Method Collection Time Receive d Time (Source) Location / / Volume Laterality Blood 05/18/2022 6:34 AM 2 6:34 EDT AM EDT Tameka Chu MD POINT OF CARE TEST ORDERAB LES Performing Organization Address City/[facility]/[place] [address] EKG 12 Lead (05/18/2022 4:40 AM EDT) Component Value Ref Range Test Analysis Performed Pathologis t Method Time At Signature Ventricular rate 76 BPM MUSE SYSTEM Atrial Rate 76 BPM MUSE SYSTEM P-R Interval 180 ms MUSE SYSTEM QRS Duration 88 ms MUSE SYSTEM Q-T Interval 400 ms MUSE SYSTEM QTC Calculated 450 ms MUSE SYSTEM (Bezet) Calculated P Flint 31 degrees MUSE SYSTEM Calculated R [place] 74 degrees MUSE SYSTEM Calculated T Flint 97 degrees MUSE SYSTEM INTERPRETATION Normal sinus rhythm MUSE SYSTEM Abnormal ECG When compared with ECG of 17-MAY-2022 17:43, Questionable change in initial forces of Anterior leads Nonspecific T wave abnormality, improved in Lateral leads Confirmed by Beronica Galvez ([id number]) on 05/18/2022 8:44:38 A M Specimen Anatomical Collection Method Collection Time Receive d Time (Source) Location / / Volume Laterality 05/18/2022 4:40 AM 2 8:44 EDT AM EDT Paty Bueno MD ECG ORDERABLES Performing Organization Address City/State/ZIP Code Phon e Number MUSE SYSTEM (ABNORMAL) Hemoglobin A1c (05/17/2022 8:12 PM EDT) Analysis Performed At Patho logis Time Signature Hemoglobin A1C 6.0 (H) 4.3 - 5.6 [facility] Comment: Reference Range: 4.3 [...] Mellitus, Diabetes Care 2013; 36: Suppl. 1, S67-01 Est Avg Gluc 127 mg/dL [facility] Comment: eAG equivalents for HbA1c percentages: HbA1c(%) ?eAG(mg/dL) 6.0 ?126 6.5 ?140 7.0 ?154 7.5 ?169 8.0 ?183 8.5 ?197 9.0 ?212 9.5 ?226 10.0 ? 240 Limitations: The eAG calculation has not been validated on women, individuals below 18 years old and above 70 years old, and individuals with hemoglobinopathies. Additional resources are available on ADA website. Arnel TSE, Louis J, Anthony R, et al. ??Tr anslating the A1C assay into estimated average glucose values. ??Diabetes Care 2008:31(8):0217-8399. Specimen Anatomical Collection Method Collection Time Receive d Time (Source) Location / / Volume Laterality Blood Venous Draw / 05/17/2022 8:12 PM 05/18/20 22 Unknown EDT 10:02 AM EDT Resulting Agency Comment Spec In Lab Maryrosa Wray APRN CHEMISTRY ORDERABLES Performing Organization Address City/[facility]/ZIP Code Phon e Number [address] (ABNORMAL) Hepatic Function Panel (05/17/2022 8:12 PM EDT) P athologist Signature Total Protein 6.5 6.1 - 8.0 [facility] g/dL [facility] Albumin 3.7 3.2 - 5.2 [facility] g/dL [facility] AST 18 0 - [facility]L [facility] ALT 16 0 - 30 [facility] unit/L [facility] Alk Phos 118 (H) 35 - 105 [facility] unit/L [facility] Total 0.4 0.2 - 1.3 [facility] Bilirubin mg/dL [facility] Bili, Direct 0.1 0.0 - 0.3 [facility] [place] [place] mg/dL [facility] Specimen Anatomical Collection Method Collection Time Receive d Time (Source) Location / / Volume Laterality Blood Venous Draw / 05/17/2022 8:12 PM 05/17/20 22 8:18 Unknown EDT PM EDT Resulting Agency Comment Spec In Lab Paty Bueno MD CHEMISTRY ORDERABLES Performing Organization Address City/[facility]/ZIP Code Phon e Number [address] Scan, Peripheral Blood (05/17/2022 8:12 PM EDT) Patholo gist Method Time Signature Plat Estimate Normal [facility]ORATORY RBC Morphology Normal [facility] Giant Platelets Less than /HPF [address] LABORATORY Specimen Anatomical Collection Method Collection Time Receive d Time (Source) Location / / Volume Laterality Blood 05/17/2022 8:12 PM 08/16/202 2 8:18 EDT PM EDT Resulting Agency Comment Spec In Lab Paty Bueno MD HEMATOLOGY ORDERABLES Performing Organization Address City/State/[place] [address] (ABNORMAL) Differential, Automated (05/17/2022 8:12 PM EDT) [facility] Method Time Signature Neutrophils % 45.1 % [facility] LABORATORY Neutr Abs (ANC) 4.40 1.70 - [facility] [address] [facility] x10(3)/[facility] LABORATORY Lymphocytes % 42.7 % [facility] LABORATORY Lymphocytes Abs 4.2 (H) 0.9 - 3.2 [facility] x10(3)/[facility] LABORATORY Monocytes % 6.9 % [facility] LABORATORY Monocyte Abs 0.7 0.3 - 0.9 [facility] x10(3)/[facility] LABORATORY Eosinophils % 4.9 % [facility]ORY Eosinophils Abs 0.5 (H) 0.0 - 0.4 [facility] x10(3)/[facility] LABORATORY Basophils % 0.2 % [facility]ORATORY Basophils Abs 0.0 0.0 - 0.1 [facility] x10(3)/[facility] LABORATORY Immature Gran % 0.20 % [facility] Comment: Immature granulocytes(IG's)percentage an d absolute count will include metamyelocytes, myelocytes, and promyelo cytes. Blood smears from CBCs yielding IG's will be scanned manually for concor dance. If this scan disagrees with the automated IG or if promyelocytes are not ed, a manual differential will be performed. Anaya Gran Abs 0.02 0.00 - 0.04 x10(3)/[facility] LABORATORY Specimen Anatomical Collection Method Collection Time Receive d Time (Source) Location / / Volume Laterality Blood 05/17/2022 8:12 PM 2 8:18 EDT PM EDT Resulting Agency Comment Spec In Lab Paty Bueno MD HEMATOLOGY ORDERABLES Performing Organization Address City/State/[place] [address] (ABNORMAL) Hemogram (05/17/2022 8:12 PM EDT) Analysis Performed At Patho logist Time Signature WBC 9.8 (H) 4.0 - 9.5 [facility] x10(3)/[facility] LABORATORY RBC 5.26 (H) 4.00 - [facility] [address] [facility] x10(6)/[facility] LABORATORY Hemoglobin 15.1 11.7 - [facility] 15.[facility] g/dL [facility] Hematocrit 44.9 35.7 [facility] 45.8 % [facility] MCV 85.4 82.6 - [facility] 94.4 [facility] LABORATORY MCH 28.7 27.1 [facility] 32.0 pg [facility] MCHC 33.6 31.7 - [facility] 35.0 g/dL [facility] Platelets 319 145 - 357 [facility] x10(3)/[facility] LABORATORY RDWSD 45.2 37.0 - [facility] JOSE DAVID 46.0 [facility] LABORATORY RDWCV 14.6 (H) 11.5 - [facility] [place] [place] 14.1 % [facility]ORATORY MPV 9.8 7.6 - 12.9 [facility] LABORATORY nRBC % Auto 0.0 % [facility] LABORATORY nRBC Abs Auto 0.000 0.000 - [facility] [address] [facility] x10(3)/[facility] LABORATORY Specimen Anatomical Collection Method Collection Time Receive d Time (Source) Location / / Volume Laterality Blood 05/17/2022 8:12 PM 8:18 EDT PM EDT Resulting Agency Comment Spec In Lab Paty Bueno MD HEMATOLOGY ORDERABLES Performing Organization Address City/State/[place] [address] (ABNORMAL) pro-Brain Natriuretic Peptide (05/17/2022 8:12 PM EDT) P athologist Signature ProBNP 186 (H) <=124 pg/mL [facility] LABORATORY Specimen Anatomical Collection Method Collection Time Receive d Time (Source) Location / / Volume Laterality Blood 05/17/2022 8:12 PM 2 8:17 EDT PM EDT Resulting Agency Comment Spec In Lab Paty Bueno MD CHEMISTRY ORDERABLES Performing Organization Address City/State/[place] [address] Magnesium (05/17/2022 8:12 PM EDT) athologist Signature Magnesium 1.00 0.69 - 1.07 [facility] mmol/L [facility]OR[facility]ORY Specimen Anatomical Collection Method Collection Time Receive d Time (Source) Location / / Volume Laterality Blood 05/17/2022 8:12 PM 2 8:17 EDT PM EDT Resulting Agency Comment Spec In Lab Paty Bueno MD CHEMISTRY ORDERABLES Performing Organization Address City/State/[place] [address] (ABNORMAL) BMP w/fasting Glucose (05/17/2022 8:12 PM EDT) P athologist Signature Glucose 119 (H) 65 - 99 [facility] Fasting mg/dL [facility] Comment: ?Fasting* Glucose Interpretive C [...] of Diabetes Mellitus, Position Statement from the [place] [employer]. ??Diabete s Care, Volume 33, Supplement 1, Oct 2009 BUN 15 8 - 18 mg/dL [facility] LABORATORY Creatinine 0.68 (L) 0.70 - 1.20 mg/dL [facility]ORATORY Sodium 140 135 - 145 mmol/L [facility] Potassium 3.5 3.5 - 5.0 mmol/L [facility] Comment: Please note: ??Patients with WBC >100,00 0 may have falsely elevated Potassium levels. ??For accurate Potassium quantif ication in these patients send serum separator tube (gold top) for subsequent determinations. ??Contact the Clinical Chemistry Laboratory if there are any qu estions. Chloride 102 98 - 107 mmol/L [facility]ORATORY CO2 26 22 - 31 mmol/L [facility]OR[facility]ORY Anion Gap 12 5 - 15 mmol/L [facility] LABORATORY Calcium 8.6 8.5 - 10.5 mg/dL [facility] Estimated GFR 109 >=60 mL/min/1.73 m?? [facility] Comment: This patient's estimated [...] / Volume Laterality Blood 05/17/2022 8:12 PM 8:17 EDT PM EDT Resulting Agency Comment Spec In Lab Paty Bueno MD CHEMISTRY ORDERABLES Performing Organization Address City/State/[place] [address] POCT Glucose (05/17/2022 6:38 PM EDT) P athologist Signature POC Glucose 89 65 - 199 [facility] mg/dL [facility] Comment: Supplemental ranges: <140 mg/dL before meals <180 mg/dL all other times of the day Specimen Anatomical Collection Method Collection Time Receive d Time (Source) Location / / Volume Laterality Blood 05/17/2022 6:38 PM 2 6:38 EDT PM EDT Rafi Barrett MD POINT OF CARE TEST ORDERABLE S Performing Organization Address City/State/[place] [address] POCT Glucose (05/17/2022 5:46 PM EDT) P athologist Signature POC Glucose 75 65 - 199 [facility] mg/dL [facility] Comment: Supplemental ranges: <140 mg/dL before meals <180 mg/dL all other times of the day Specimen Anatomical Collection Method Collection Time Receive d Time (Source) Location / / Volume Laterality Blood 05/17/2022 5:46 PM 2 5:46 EDT PM EDT Rafi Barrett MD POINT OF CARE TEST ORDERABLE S Performing Organization Address City/[facility]/[place] [address] EKG 12 Lead (05/17/2022 5:43 PM EDT) Component Value Ref Range Test Analysis Performed Pathologis t Method Time At Signature Ventricular rate 66 BPM MUSE SYSTEM Atrial Rate 66 BPM MUSE SYSTEM P-R Interval 186 ms MUSE SYSTEM QRS Duration 92 ms MUSE SYSTEM Q-T Interval 436 ms MUSE SYSTEM QTC Calculated 457 ms MUSE SYSTEM (Bezet) Calculated P [place] 29 degrees MUSE SYSTEM Calculated R [place] 49 degrees MUSE SYSTEM Calculated T [place] 85 degrees MUSE SYSTEM INTERPRETATION Normal sinus rhythm MUSE SYSTEM Anteroseptal infarct (cited on or before 17-MAY-2022) Abnormal ECG When compared with ECG of 13-MAY-2022 09:49, Nonspecific T wave abnormality, worse in Anterolateral leads QT has shortened Confirmed by MD Jose, Yumi ([id number]) on 05/18/2022 4:25:01 PM Specimen Anatomical Collection Method Collection Time Receive d Time (Source) Location / / Volume Laterality 05/17/2022 5:43 PM 2 4:25 EDT PM EDT Rafi Barrett MD ECG ORDERABLES Performing Organization Address City/State/ZIP Code Phon e Number MUSE SYSTEM CARDIAC CATHETERIZATION (05/17/2022 5:24 PM EDT) Anatomical Region Laterality Modality Other Specimen (Source) Anatomical Location Collection Method / Collectio n Time Received Time / Laterality Volume Narrative 05/17/2022 9:24 PM EDT ?[facility] ? Cardiac Cathete rization/Intervention Report ? Patient Name: Sho, Aracelis ? Procedure Date: 05/17/2022 ? A #: [id number] ? Primary Physician: Rafi Barrett ? Case #: [id number] ? File Name: [id number] ? Catheterization Order Number: [id number] ? [facility] ? Final Report [place], [place] ? Patient Name: ? Aracelis Sho ? ID#: ?[id number] ? : ?1975 ? Procedure Date: ? May 17, 2022 ?Case #: ? [id number] ? Room: ? 6 ? Case Physician: ? Rafi Barrett , M.D. ?Start: ?14:44 ?Fellow: ? Tai C Freire , D.O. ?Admission: ??05/17/2022 ? Referring Physician: ??Guanakito Singleton, Marc UriosteguiD. ? Procedures: ?* Coronary Angiography ?* Coronary Optical Coherence To mography ?* Coronary Stent Insertion ? History ?Aracelis Sho is a 46 year old wom an. She has hypertension. The patient's ?smoking status is Current with Current - Every Day frequency, using ?cigarettes. Cigarette use is He liban (>=10/day). She has ?hypercholesterolemia. The patie nt has insulin dependent diabetes ?mellitus. She is status post a remote myocardial infarction. The patient ?has a history of an ejection fr action less than or equal to 35% and ?pulmonary hypertension. She has a history of CHF. The CHF is NYHA ?Functional Class II and is clas sified as Systolic. She also has a history ?of chronic obstructive pulmonar y disease. Prior to the initiation of this ?procedure, the patient was radha gnated as ASA Class II. The CSHA clinical ?frailty scale is 3: Managing We ll. ? Diagnostic Tests: ?Prior Coronary Angiography: ? Prior coronary angiograp hy was performed on 09/03/2021 and showed ? obstructive CAD. LV ejec tion fraction within 6 months is 31%. ?Electrocardiography: ? EKG was assessed by ECG. EKG was Abnormal. EKG showed T-wave ? inversions. ?Medications Prior to Procedure: ? Aspirin, Angiotensin II Receptor Jerri, Beta Jerri and Statin. ? Indications for Diagnostic Cath: ?The priority of the diagnostic procedure was Elective. The indication for ?the label machine operator visit is worsening angina and cardiomyopathy. Chest pain ?symptom assessment was: Typical Angina. ? Technique: ?A 6 SLFr sheath was inserted in the right radial artery utilizing the ?Seldinger technique. The left c oronary artery was injected utilizing a ?6Fr EBU 3.5 catheter. A 6Fr JR 4 catheter was used to inject the right ?coronary artery. Coronary stent insertion was performed and the equipment ?utilized will be described in t intervention summary section. 10,000 ?units of heparin were administe red. A total of 200cc of Iso-Kari were ?opened and 200cc of Iso-Kari wer e administered. Radiation: Fluoro time was ?41.2 minutes, dose area product was 82,900 mGYcm2 and air kerma was 1,353 ?mGY. See the case log for addit ional details. ?The patient received the follow ing medications prior to and during the ?procedure: ? Unfractionated Heparin. ? Coronary Angiography: ?Dominance: Right ?Left Main ? There was mild diffuse ( <=25% stenosis) disease of the entire vessel ? segment of the left main artery. ?Left Anterior Descending ? There was a 70% eccentri c long segmental stenosis of the proximal ? segment of the left ante rior descending artery (LAD). ??The LAD was ? moderate in size. ? There was a 95% calcifie d single discrete stenosis of the ostial ? segment of the first tomás gonal branch (Diagonal 1) of the LAD. ??The ? Diagonal 1 was moderate in size. ?Left Circumflex ? There was mild diffuse ( <=25% stenosis) disease of the entire vessel ? segment of the left circ umflex artery (LCX). ?Right Coronary Artery ? There was a 70% single d iscrete stenosis of the distal segment of ? the right coronary arter y (RCA). ??The RCA was moderate in size. ? Intravascular Imaging/Physiology: ?Optical Coherence Tomography (O CT) was performed in the distal RCA using ?a 6 SL Fr Ikari Right 1.5 galileo ng catheter and a Gentuity. ??Imaging was ?successful. ??Image quality was good. ??The distal RCA showed severe ?diffuse atherosclerotic plaque. ? Indication for Intervention: ?Coronary intervention was indic ated for treatment of stable angina. The ?priority for the procedure was Elective. The NCDR indication for the ?procedure was Stable angina. LV EF within one week was 31%. Syntax Score ?was Low. Staged PCI was perform ed for multivessel disease. ? Intervention Summary: ?Left Anterior Descending Artery ? Proximal 70% ? Stent insertion was performed on the 70% stenosis in the ? proximal segmen t of the LAD. This was a de balbir lesion. ? According to th e ACC/AHA classification system, this lesion ? was a type C mo derate risk lesion. Primary prevention of ? restenosis was the indication for stent insertion. This was ? the culprit les ion. A guidewire was placed across this lesion. ? Vessel flow pre intervention was GLO 3. Lesion length was ? 20mm. The lesio n involves a bifurcation with the D1. This ? bifurcation les ion was treated with a two stent, crush or ? mini-crush tech nique and a final kissing balloon ? post-dilation. ? Stent insertion was accomplished through a 6 Fr. EBU 3.5 ? guide. ??The le sj was predilated with a 3.00mm NC EUPHORA 15 ? MM balloon with a maximum inflation pressure of 12 ? atmospheres. ?? A premounted 2.75 x 30 mm Srikanth Merrimack (EMILEE) ? was deployed. ? ?Following stent deployment, the lesion was ? dilated using a 3.50mm NC EUPHORA 12 MM balloon with a maximum ? inflation press ure of 12 atmospheres. ? The final outco me was defined as successful. There was no ? residual stenos is following this intervention. The final GLO ? flow was 3. ?First Diagonal Branch of the LA D ? Ostial 95% ? Stent insertion was performed on the 95% stenosis in the ? ostial segment of the Diagonal 1. This was a de balbir lesion. ? This lesion was designated a type C moderate risk lesion based ? on ACC/AHA clas sification system. Primary prevention of ? restenosis was the indication for stent insertion. This was ? the culprit les alli. A guidewire was placed across this lesion. ? Vessel flow pre intervention was GLO 3. Lesion length was ? 20mm. The lesio n involves a bifurcation with the LAD. This ? bifurcation les ion was treated with a two stent, crush or ? mini-crush tech nique and a final kissing balloon ? post-dilation. ? Stent insertion was accomplished through a 6 Fr. EBU 3.5 ? guide. ??The le sj was predilated with a 2.50mm EUPHORA 12 MM ? balloon with a maximum inflation pressure of 12 atmospheres. ? A premounted 2. 00 x 22 mm Srikanth Merrimack (EMILEE) was deployed. ? Following stent deployment, the lesion was dilated using a ? 2.75mm NC EUPHO RA 12 MM balloon with a maximum inflation ? pressure of 8 a tmospheres. ? The final outco me was defined as successful. There was no ? residual stenos is following this intervention. The final GLO ? flow was 3. ?Right Coronary Artery ? Distal 70% ? Stent insertion was performed on the 70% stenosis in the ? distal segment of the RCA. This was a drug eluting in- stent ? restenosis lesi on. According to the ACC/AHA classification ? system, this le sj was a type B1 moderate risk lesion. ? Management of r ecurrent restenosis was the indication for ? stent insertion . This was the culprit lesion. A guidewire was ? placed across t his lesion. Vessel flow pre intervention was ? GLO 3. Lesion length was 10mm. This was a previously treated ? lesion on 09/03. ? Stent insertion was accomplished through a 6 Fr. Carola Right ? 1.5 guide. ??A premounted 3.00 x 12 mm Srikanth Merrimack (EMILEE) was ? deployed with a maximum inflation pressure of 14 atmospheres. ? Following stent deployment, the lesion was dilated using a ? 3.00mm balloon with a maximum inflation pressure of 20 ? atmospheres. ? The final outco me was defined as successful. There was no ? residual stenos is following this intervention. The final GLO ? flow was 3. ? Vascular Access: ?Vascular Access Management: ? Mechanical Compression o f the right radial artery access site was ? performed. ? Dual Antiplatelet (DAPT) Recommendations : ?Drug eluting stent (EMILEE) insert ed for stable ischemic heart disease ?(SIHD). ?Patient was on chronic DAPT on arrival to the label machine operator. ?These recommendations are made at the time of the intervention. Patient ?and provider preferences or a c hanging clinical situation may require ?modification of this regimen. C farrahult [facility] Interventional Cardiology for ?questions. ?This patient has a high DAPT sc ore and may benefit from prolonged (12- 30 ?months) dual antiplatelet thera py if the patient has completed 12 months ?of DAPT without having a major bleeding or ischemic event and the patient ?is NOT on chronic anticoagulati on. This should be used for guidance in ?the overall conversation about prolonged dual antiplatelet therapy and ?not as a recommendation for or against any medical treatment. Consult ?http://tools.acc.org/DAPTriskap p/#!/content/calculator/ or [facility] ?Interventional Cardiology for q uestions ? Conclusions: ?* Two vessel coronary artery di sease (LAD and RCA) ?* Successful stent insertion of the ostial D1 lesion ?* Successful stent insertion of the proximal LAD lesion ?* Successful stent insertion of the distal RCA lesion ?* See Dual Antiplatelet (DAPT) Recommendations above ? Complications/Events: ?The patient had no complication s during these procedures. ?The attending physician was presen t for the entire procedure. ?Dr. Rafi Barrett M.D. was pres ent during the moderate sedation ?intraservice time as documented by the sedation nurse. ??Case time = 02:37. ?Dr. Rafi Barrett M.D. performe d the coronary angiography, stent ?insertion-coronary and OCT-coronar y. ? Rafi Barrett M.D. ? Report Finalized: 05/17/2022 ??21:17 ? Rafi Barrett MD CARDIAC CATH ORDERABLES POCT Glucose (05/17/2022 12:44 PM EDT) P athologist Signature POC Glucose 121 65 - 199 [facility] mg/dL [facility] Comment: Supplemental ranges: <140 mg/dL before meals <180 mg/dL all other times of the day Specimen Anatomical Collection Method Collection Time Receive d Time (Source) Location / / Volume Laterality Blood 05/17/2022 12:44 05/17/2022 PM EDT 12:44 PM EDT Rafi Barrett MD POINT OF CARE TEST ORDERABLE S Performing Organization Address City/State/ZIP Code [place] [address] documented in this encounter Visit Diagnoses Not on filedocumented in this encounter Admitting Diagnoses Diagnosis Ischemic cardiomyopathy Other specified forms of chronic ischemi c heart disease documented in this encounter Administered Medications Inactive Administered Medications - up to 3 most recent administrations Medication Order MAR Action Action Date Dose Rate Site acetaminophen (Tylenol) tablet Given 05/23/2022 11:47 AM EDT 975 mg 975 mg 975 mg, Oral, EVERY 6 HOURS, First dose on Mon05/17/22 at 2345, Until Discontinued, Maximum dose of acetaminophen is 4000 mg from all sources in 24 hours. When ordered for pain, acetaminophen should be given even when other ordered pain medications are indicated. , Routine Given 05/23/2022 6:08 AM EDT 975 mg Given 05/22/2022 11:11 PM EDT 975 mg aspirin EC tablet 81 mg Given 05/23/2022 8:08 AM EDT 81 mg 81 mg, Oral, DAILY, First dose on Mon05/18/22 at 0900, Until Discontinued, Recovery (Recovery-Hospital Unit), Routine Given 05/22/2022 8:46 AM EDT 81 mg Given 05/21/2022 9:37 AM EDT 81 mg atorvastatin (Lipitor) tablet 80 mg Given 05/22/2022 5:41 PM EDT 80 mg 80 mg, Oral, EVERY EVENING, First dose on Mon05/17/22 at 2015, Until Discontinued, Routine Given 05/21/2022 5:38 PM EDT 80 mg Given 05/20/2022 4:46 PM EDT 80 mg benzocaine (Orajel) 20 % gel 1 each Given 05/23/2022 12:21 PM EDT 1 each 1 each, Mucous Membrane, 2 TIMES DAILY PRN, Tooth pain, Starting on Toya 05/19/22 at 2018, Until 05/23/22 at 1602 Given 05/22/2022 4:01 PM EDT 1 each Given 05/20/2022 5:23 AM EDT 1 each cephALEXin (Keflex) capsule 500 mg Given 05/23/2022 12:21 PM EDT 500 mg 500 mg, Oral, 4 TIMES DAILY, 20 doses, First dose on Mon05/22/22 at 1300, Last dose on Mon05/27/22 at 0900, Routine, Indication 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): Skin/Skin Structure Given 05/23/2022 8:08 AM EDT 500 mg Given 05/22/2022 8:43 PM EDT 500 mg clopidogreL (Plavix) tablet 75 mg Given 05/23/2022 8:08 AM EDT 75 mg 75 mg, Oral, DAILY, First dose on Mon05/18/22 at 0900, Until Discontinued, Recovery (Recovery-Hospital Unit), Routine Given 05/22/2022 8:46 AM EDT 75 mg Given 05/21/2022 9:38 AM EDT 75 mg colchicine (Colcrys) tablet 0.6 mg Given 05/23/2022 8:08 AM EDT 0.6 mg 0.6 mg, Oral, 2 TIMES DAILY, First dose on Mon05/17/22 at 2100, Until Discontinued, Maximum dose: 2.4 mg/ 24 hours. DO NOT SPLIT, CRUSH OR OPEN, Routine Given 05/22/2022 8:43 PM EDT 0.6 mg Given 05/22/2022 8:47 AM EDT 0.6 mg dextromethorphan (Robitussin) capsule 15 mg Given 05/23/2022 8:07 AM EDT 15 mg 15 mg, Oral, EVERY 6 HOURS, First dose on Mon05/17/22 at 2100, Until Discontinued, Routine Given 05/23/2022 3:00 AM EDT 15 mg Given 05/22/2022 8:42 PM EDT 15 mg dextrose 10% infusion 250 mL, at 1,000 mL/hr, Intravenous, KONSTANTIN RY 30 MIN PRN, Starting on Mon05/18/22 at 0937, Until Mon05/23/22 at 1602, For BG 50-70 mg/dL: Oral treatment preferred: If able to drink, give 120 mL Juice or R egular (not diet) soda OR If NPO, give 15 gram glucose 40% oral gel massaged into buccal mucosa OR if unconscious or uncooperative, give 25 gram (250 mL) Dex trose 10% IV over 15 minutes per protocol OR, if no IV access, 1 mg Glucagon IM. * * For BG less than 50 mg/dL: Oral treatment preferred: If able to drink, give 240 mL Juice or Regu lar (not diet) soda OR If NPO, give 30 gram glucose 40% oral gel m assaged in buccal mucosa OR if unconscious or uncooperative, give 25 gram (250 mL) Dextrose 10% I V over 15 minutes per protocol OR, if no IV access, 1 mg Glucagon IM. Rech angelina BG in 30 minutes. May repeat juice/soda, gel, dextrose or gluc agon once per episode. For persistent hypoglycemia, consider longer-acting treatment for the duration of the active insulin. empagliflozin (Jardiance) tablet 10 mg Given 05/23/2022 8:08 AM EDT 10 mg 10 mg, Oral, DAILY, First dose on Mon05/18/22 at 0900, Until Discontinued, This medication should not be given with reduced PO intake/fluid loss, severe illness, or in patients with ketonemia or ketouria. , Routine, This medication should be held for 3 days prior to surgery. Is there a planned procedure within 3 days? No, Indication for empagliflozin: heart failure (HFpEF or HFrEF), Is this a new initiation for patients with heart failure (HFpEF or HFrEF) with or without diabetes? No Given 05/22/2022 8:47 AM EDT 10 mg Given 05/21/2022 10:20 AM EDT 10 mg fentaNYL (pf) (50 mcg/mL) multi-dose Given 05/19/2022 9:46 AM ED T 50 mcg injection ONCE PRN, Starting on Toya 05/19/22 at 0946, Until Toya 05/19/22 at 1119, Cath (Intra-Procedure), Routine ferrous sulfate EC tablet 325 mg Given 05/23/2022 8:08 AM EDT 325 mg 325 mg, Oral, 2 TIMES DAILY WITH MEALS, First dose (after last modification) on Mon05/20/22 at 1000, Until Discontinued, DO NOT CRUSH OR OPEN. Take with food or water. , Routine Given 05/22/2022 5:41 PM EDT 325 mg Given 05/22/2022 8:47 AM EDT 325 mg folic acid (Folvite) tablet 1,000 mcg Given 05/23/2022 8:08 AM EDT 1,000 mcg 1,000 mcg, Oral, DAILY, First dose on Mon05/17/22 at 2015, Until Discontinued, Routine Given 05/22/2022 8:46 AM EDT 1,000 mcg Given 05/21/2022 9:39 AM EDT 1,000 mcg furosemide (Lasix) tablet 40 mg Given 05/23/2022 8:08 AM EDT 40 mg 40 mg, Oral, DAILY, First dose on Mon05/20/22 at 0900, Until Discontinued, Routine Given 05/22/2022 8:46 AM EDT 40 mg Given 05/21/2022 9:39 AM EDT 40 mg gabapentin (Neurontin) capsule 600 mg Given 05/22/2022 8:42 PM EDT 600 mg 600 mg, Oral, NIGHTLY, First dose (after last modification) on Mon05/19/22 at 2100, Until Discontinued, Routine Given 05/21/2022 9:50 PM EDT 600 mg Given 05/20/2022 9:27 PM EDT 600 mg glucagon (Glucagen) (1 mg/mL) injection solution 1 mg 1 mg, Intramuscular, EVERY 30 MIN PRN, S tarting on Mon05/18/22 at 0937, Until Mon05/23/22 at 1602, Low blood sugar, For BG 50-70 mg/dL: Oral treatment preferred: If able to drink, give 120 mL Juice or R egular (not diet) soda OR If NPO, give 15 gram glucose 40% oral gel massaged into buccal mucosa OR if unconscious or uncooperative, give 25 gram (250 mL) Dex trose 10% IV over 15 minutes per protocol OR, if no IV access, 1 mg Glucagon IM. * * For BG less than 50 mg/dL: Oral treatment preferred: If able to drink, give 240 mL Juice or Regu lar (not diet) soda OR If NPO, give 30 gram glucose 40% oral gel m assaged in buccal mucosa OR if unconscious or uncooperative, give 25 gram (250 mL) Dextrose 10% I V over 15 minutes per protocol OR, if no IV access, 1 mg Glucagon IM. Rech angelina BG in 30 minutes. May repeat juice/soda, gel, dextrose or gluc agon once per episode. For persistent hypoglycemia, consider longer-acting treatment for the duration of the active insulin., Routine glucose (Glutose) 40% oral geL 15-30 g of glucose, Buccal, EVERY 30 MIN PRN, Starting on Mon05/18/22 at 0937, Until Mon05/23/22 at 1602, Low blood sug ar, For BG 50-70 mg/dL: Oral treatment preferred: If able to drink, give 120 mL Juice or Regu lar (not diet) soda OR If NPO, give 15 gram glucose 40% oral gel massaged into b uccal mucosa OR if unconscious or uncooperative, give 25 gr am (250 mL) Dextrose 10% IV over 15 minutes per protocol OR, if no IV access, 1 mg G lucagon IM. For BG less than 50 mg/dL: Oral treatment preferred: If able to dri nk, give 240 mL Juice or Regular (not diet) soda OR If NPO, give 30 gram glucose 40% oral gel massaged in buccal mucosa OR if unconscious or uncooperative, give 25 gr am (250 mL) Dextrose 10% IV over 15 minutes per protocol OR, if no IV access, 1 mg G lucagon IM. Recheck BG in 30 minutes. May repeat juice/soda, gel, dextrose or gluc agon once per episode. For persistent hypoglycemia, consider longer-acting treatment for the duration of the active insulin. 1 tube of Glutose-15 contains 1 5 grams of glucose (net weight of tube = 37.5 grams.), Routine heparin (porcine) (5,000 units/1 mL) Given 05/23/2022 6:08 AM ED T 5,000 Units subcutaneous injection 5,000 Units 5,000 Units, Subcutaneous, EVERY 8 HOURS SCHEDULED, First dose on Mon05/17/22 at 2200, Until Discontinued, Routine Given 05/22/2022 11:08 PM EDT 5,000 Units Given 05/22/2022 2:41 PM EDT 5,000 Units Right Lower Quadrant insulin glargine-ygfn (Semglee) (100 uni t/mL) subcutaneous injection vial 12 Units 12 Units, Subcutaneous, DAILY, First dos e (after last modification) on Mon05/24/22 at 0900, Until Discontinued, Routine insulin lispro (HumaLOG;Admelog) Given 05/23/2022 12:22 PM EDT 2 Units Left Arm (100 unit/mL) subcutaneous injection vial 0-8 Units 0-8 Units, Subcutaneous, 3 TIMES DAILY WITH MEALS, First dose on Mon05/18/22 at 1200, Until Discontinued, MEAL ASSOCIATED Give 1 unit for every 15 grams carbohydrate. Hold if not eating or if BG less than 70 mg/dL., Routine Given 05/23/2022 8:15 AM EDT 4 Units Given 05/22/2022 5:43 PM EDT 2 Units insulin lispro (HumaLOG;Admelog) Given 05/23/2022 12:21 PM EDT 1 Units Left Arm (100 unit/mL) subcutaneous injection vial 1-4 Units 1-4 Units, Subcutaneous, 3 TIMES DAILY BEFORE MEALS, First dose (after last modification) on Mon05/21/22 at 2300, Until Discontinued, CORRECTION BOLUS [1-4 Units] Sensitive Sliding Scale (BG in mg/dL): Correction factor 40 (1 unit of insulin is expected to drop the glucose 40 mg/dL) BG 160 - 200 Give 1 unit BG 201 - 240 Give 2 units BG 241 - 280 Give 3 units BG greater than 280, give 4 units and recheck BG in 2 hours. - If recheck BG is LESS than 280, give no insulin and resume schedule - If recheck BG is GREATER than 280, give 4 units and repeat BG in 2 hours (no more than 3 times) & call for new insulin orders. DO NOT hold if NPO, unless specifically directed to do so by written order. Per Blood Glucose Monitoring Policy, re-check a BG of > 240 mg/dL in 2 hours., Routine Given 05/23/2022 8:14 AM EDT 2 Units Given 05/22/2022 5:42 PM EDT 1 Units Left Arm ipratropium-albuteroL (Duoneb) 0.5 mg-3 mg(2.5 Given 0 05/19/2022 9:33 PM EDT 3 mLs mg base)/3 mL nebulizer solution 3 mL 3 mL, Nebulization, EVERY 6 HOURS, First dose on Mon05/17/22 at 2100, Until Discontinued, Routine Given 05/18/2022 5:51 PM EDT 3 mLs Given 05/18/2022 9:18 AM EDT 3 mLs lidocaine (Lidoderm) 5% Patch Applied 05/23/2022 11:48 AM 2 patches 08- Back Lower patch 2 patch EDT (Right) 2 patch, Transdermal, EVERY 24 HOURS, First dose on Mon05/20/22 at 1230, Until Discontinued, Apply patch(es) for 12 hours, and then remove for 12 hours. Apply to lower back., Routine Patch Applied 05/22/2022 12:13 PM EDT 2 patches 07- Back Lower (Left) Patch Applied 05/21/2022 12:35 PM EDT 2 patches 07- Back Lower (Left) lidocaine (Lidoderm) topical patch REMOV AL Transdermal, EVERY 24 HOURS, First dose on Mon05/20/22 at 2345, Until Discontinued, Remove lidocaine 5% patch magnesium oxide (Mag-Ox) tablet 400 mg Given 05/23/2022 8:08 AM EDT 400 mg 400 mg, Oral, 2 TIMES DAILY, First dose on Mon05/17/22 at 2100, Until Discontinued, Routine Given 05/22/2022 8:42 PM EDT 400 mg Given 05/22/2022 8:49 AM EDT 400 mg methadone (Dolophine) (10 mg/mL) oral liquid Given 8:13 AM EDT 100 mg 100 mg 100 mg, Oral, DAILY, First dose on Mon05/18/22 at 0900, Until Discontinued, Liquid methadone should be used to avoid diversion, and a mouth check should be performed after each dose., Routine, Name of patient's Methadone clinic? [facility], Methadone clinic phone: [phone], Date last Methadone dose was given at the Outpatient Clinic? 05/17/2022, Dose of Methadone provided at the clinic? 100 mg Given 05/22/2022 8:45 AM EDT 100 mg Given 05/21/2022 9:39 AM EDT 100 mg metoprolol succinate XL (Toprol-XL) tablet 25 Given 8:08 AM EDT 25 mg mg 25 mg, Oral, DAILY, First dose on Mon05/18/22 at 0915, Until Discontinued, DO NOT CRUSH OR OPEN, Routine Given 05/22/2022 8:46 AM EDT 25 mg Given 05/21/2022 10:20 AM EDT 25 mg midazolam (pf) (Versed) (1 mg/mL) multi-dose Given 05/19/2022 9: 46 AM EDT 1 mg injection ONCE PRN, Starting on Mon05/19/22 at 0946, Until Mon05/19/22 at 1119, Cath (Intra-Procedure), Routine nicotine (Nicoderm CQ) 14 Given 05/23/2022 8:11 AM EDT 14 mg 05- Back Upper mg/24 hr patch 14 mg (Left) 14 mg (1 patch), Transdermal, DAILY, First dose on Mon05/17/22 at 2045, Until Discontinued, Apply new patch to nonhairy, clean, dry skin on the upper body or upper outer arm; each patch should be applied to a different site , Routine Given 05/22/2022 8:45 AM EDT 14 mg 20-Ot her (document in comment section) Given 05/21/2022 9:43 AM EDT 14 mg 20-Ot her (document in comment section) nicotine (NICODERM CQ) 14 mg/24 hr patch Patch Removal Transdermal, DAILY, First dose on Mon at 0900, Until Discontinued, Remove nicotine 14 mg/24 hr patch nicotine (NICODERM CQ) 14 mg/24 hr patch Patch Verification Transdermal, 2 TIMES DAILY, First dose o n Mon05/18/22 at 0800, Until Discontinued, Verify nicotine 14 mg/24 hr patch. nitroGLYcerin (Nitrostat) disintegrating Given 05/22/2022 8:47 P M EDT 0.4 mg tablet 0.4 mg 0.4 mg, Sublingual, EVERY 5 MIN PRN, Starting on Mon05/18/22 at 0507, Until Mon05/23/22 at 1602, Chest pain, SL nitroglycerin may be repeated every 5 minutes as needed up to 3 doses, Routine Given 05/20/2022 9:30 PM EDT 0.4 mg Given 05/18/2022 5:11 AM EDT 0.4 mg ondansetron (Zofran) tablet 4 mg 4 mg, Oral, EVERY 8 HOURS PRN, Starting on Mon05/22/22 at 1507, Until Mon05/23/22 at 1602, Nausea, Routine pantoprazole EC (Protonix) tablet 40 mg Given 05/23/2022 8:08 AM EDT 40 mg 40 mg, Oral, DAILY, First dose on Mon05/19/22 at 0900, Until Discontinued, DO NOT CRUSH OR OPEN, Routine Given 05/22/2022 8:47 AM EDT 40 mg Given 05/21/2022 9:39 AM EDT 40 mg documented in this encounter Active and Recently Administered Medications Times are shown in EDT. Scheduled Medication Order 05/21/2022 05/22/2022 05/23/2022 acetaminophen (Tylenol) tablet 975 mg 0512 (Given - Pr ovider: Opal Chan RN)1235 (Given - Provider: Edison Powell RN)1738 (Given - Provider: Edison Powell RN) 0111 (Given - Provider: Lora Teran RN)0648 (Given - Provider: Lora Teran RN)1209 (Given - Provider: Edison Powell RN)1740 (Given - Provider: Edison Powell RN)2311 (Given - Provider: Lora Teran RN) 0608 (Given - Provider: Lora Teran RN)1147 (Given - Provider: Edison Powell RN) 975 mg, Oral, EVERY 6 HOURS, First dose on Mon05/17/22 at 2345, Until Discontinued, Maximum dose of acetaminophen is 4000 mg from all sources in 24 hours. When ordered for pain, acetaminophen should be given even when other ordered pain medications are indicated. , Routine aspirin EC tablet 81 mg 0937 (Given - Provider: Edison Powell RN) 0846 (Given - Provider: Edison Powell RN) 0808 (Given - Provider: Edison Powell RN ) 81 mg, Oral, DAILY, First dose on Mon at 0900, Until Discontinued, Recovery ([facility]), Routine atorvastatin (Lipitor) tablet 80 mg 1738 (Given - Provider: Edison Powell, DEVAN) 1741 (Given - Provider: Edison Powell RN) 80 mg, Oral, EVERY EVENING, First dose o n Mon05/17/22 at 2015, Until Discontinued, Routine cephALEXin (Keflex) capsule 500 mg 1441 (Given - Provider: Edison Powell RN)1741 (Given - Provider: Edison Powell RN)204 (Given - Provider: Lora Teran RN) 0808 (Given - Provider: Edison Powell RN )1221 (Given - Provider: Edison Powell RN) 500 mg, Oral, 4 TIMES DAILY, 20 doses, F irst dose on Mon05/22/22 at 1300, Last dose on Mon05/27/22 at 0900, Routine clopidogreL (Plavix) tablet 75 mg 0938 (Given - Provider: Ra elida Powell RN) 0846 (Given - Provider: Edison Powell RN) 0808 (Given - Provider: Edison Powell RN ) 75 mg, Oral, DAILY, First dose on Mon at 0900, Until Discontinued, Recovery ([facility]), Routine colchicine (Colcrys) tablet 0.6 mg 0939 (Given - Provi ayad: Edison Powell RN)215 (Given - Provider: Lora Teran RN) 0847 (Given - Provider: Edison Powell RN)2042 (Given - Provider: Lora Teran RN) 0808 (Given - Provider: Edison Powell RN) 0.6 mg, Oral, 2 TIMES DAILY, First dose on Mon05/17/22 at 2100, Until Discontinued, Maximum dose: 2.4 mg/ 24 hours. DO NOT SPLIT, CRUSH OR OPEN, Routine dextromethorphan (Robitussin) capsule 15 mg 0217 (Give n - Provider: Opal Chan RN)1019 (Given - Provider: Edison Powell RN)1450 (Given - Provider: Edison Powell RN)2150 (Given - Provider: Lora Teran RN) 0430 (Given - Provider: Lora Teran RN)0847 (Given - Provider: Edison Powell RN)1440 (Given - Provider: Edison Powell RN)204 (Given - Provider: Lora Teran RN) 0300 (Given - Provider: Lora Teran RN)0807 (Given - Provider: Edison Powell RN) 15 mg, Oral, EVERY 6 HOURS, First dose o n Mon05/17/22 at 2100, Until Discontinued, Routine empagliflozin (Jardiance) tablet 10 mg 1020 (Given - P rovider: Edison Powell RN) 0847 (Given - Provider: Edison Powell RN) 0808 (Given - Provider: Edison Powell RN) 10 mg, Oral, DAILY, First dose on Mon at 0900, Until Discontinued, This medication should not be given with reduced PO intake/fluid loss, severe illness, or in patients with ketonemia or ketouria. , Routine ferrous sulfate EC tablet 325 mg 0937 (Given - Provide r: Edison Powell RN)1738 (Given - Provider: Edison Powell RN) 0847 (Given - Provider: Edison Powell RN)1741 (Given - Provider: Edison Powell RN) 0808 (Given - Provider: Edison Powell RN) 325 mg, Oral, 2 TIMES DAILY WITH MEALS, First dose (after last modification) on Mon05/20/22 at 1000, Until Discontinued, DO NOT CRUSH OR OPEN. Take with food or water. , Routine folic acid (Folvite) tablet 1,000 mcg 0939 (Given - Provider : Edison Powell RN) 0846 (Given - Provider: Edison Powell RN) 0808 (Given - Provider: Edison Powell RN) 1,000 mcg, Oral, DAILY, First dose on 05/17/22 at 2015, Until Discontinued, Routine furosemide (Lasix) tablet 40 mg 0939 (Given - Provider: Tameka Powell RN) 0846 (Given - Provider: Edison Powell RN) 0808 (Given - Provider: Edison Powell RN ) 40 mg, Oral, DAILY, First dose on Mon at 0900, Until Discontinued, Routine gabapentin (Neurontin) capsule 600 mg 2149 (Given - Pr ovider: Lora Teran RN) 2041 (Given - Provider: Lora Teran RN) 600 mg, Oral, NIGHTLY, First dose (after last modification) on Mon05/19/22 at 2100, Until Discontinued, Routine heparin (porcine) (5,000 units/1 mL) subcutaneous inje ction 5,000 Units 0512 (Given - Provider: Opal Chan RN)1450 (Given - Provider: Edison Powell RN)2150 (Given - Provider: Lora Teran RN) 0943 (Given - Provider: Edison Powell RN)1441 (Given - Provider: Edison Powell RN)2308 (Given - Provider: Lora Teran, DEVAN) 0608 (Given - Provider: Lora Teran RN)1400 (Due - Provider: Admin Adt) 5,000 Units, Subcutaneous, EVERY 8 HOURS SCHEDULED, First dose on Mon05/17/22 at 2200, Until Discontinued, Routine insulin glargine-ygfn (Semglee) (100 uni t/mL) subcutaneous injection vial 10 Units (CANCELED) 1005 (Given - Provider: Edison Powell RN) 0943 (Given - Provider: Edison Powell RN) 0814 (Given - Provider: Edison Powell RN ) 10 Units, Subcutaneous, DAILY, First dos e (after last modification) on Mon05/20/22 at 0900, Until Discontinued, Routine insulin glargine-ygfn (Semglee) (100 uni t/mL) subcutaneous injection vial 12 Units 12 Units, Subcutaneous, DAILY, First dos e (after last modification) on Mon05/24/22 at 0900, Until Discontinued, Routine insulin lispro (HumaLOG;Admelog) (100 un it/mL) subcutaneous injection vial 0-8 Units 1025 (Given - Provider: Edison Powell RN )1242 (Given - Provider: Edison Powell RN)1739 (Given - Provider: Edison Powell RN) 0943 (Given - Provider: Edison Powell, DEVAN)1220 (Given - Provider: Edison Powell, DEVAN)1743 (Given - Provider: Edison Powell, RN) 0815 (Given - Provider: Edison Powell, DEVAN )1222 (Given - Provider: Edison Powell, DEVAN) 0-8 Units, Subcutaneous, 3 TIMES DAILY W ITH MEALS, First dose on Mon05/18/22 at 1200, Until Discontinued, [employer] Give 1 unit for every 15 grams carbohydrate. Hold if not eating or if BG less than 70 mg/dL., Routine insulin lispro (HumaLOG;Admelog) (100 un it/mL) subcutaneous injection vial 1-4 Units(Linked Group 1) 2300 (Not Given - Provider: Lora carson RN - Reason: Order parameters not met) 0804 (Not Given - Provider: Edison Powell RN - Reason: Order parameters not met - Comment: glucose 112 @ 0804)1208 (Given - Provider: Edison Powell RN - Comment: 233 glucose)1742 (Given - Provider: Edison Powell RN) 0814 (Given - Provider: Edison Powell RN - Comment: 220)1221 (Given - Provider: Edison Powell RN - Comment: 186 glucose) 1-4 Units, Subcutaneous, 3 TIMES DAILY B EFORE MEALS, First dose (after last modification) on 05/21/22 at 2300, Until Discontinued, CORRECTION BOLUS [1-4 Units] Sensitive Sliding Scale (BG in mg/d L): Correction factor 40 (1 unit of insu ovidio is expected to drop the glucose 40 mg/dL) BG 160 - 200 Give 1 unit BG 201 - 240 Give 2 units BG 241 - 280 Give 3 units BG greater than 280, give 4 units and r echeck BG in 2 hours. - If recheck BG is LESS than 280, give no insulin and resume schedule - If recheck BG is GREATER than 280, give 4 units and repeat BG in 2 hours (no more than 3 times) & call f or new insulin orders. DO NOT hold if DIRECTOR OF PARTNERSHIPS O, unless specifically directed to do so by written order. Per Blood Glucose Monitoring Policy, re-check a BG of > 240 mg/dL in 2 hours., Routine ipratropium-albuteroL (Duoneb) 0.5 mg-3 mg(2.5 mg base)/3 mL nebulizer solution 3 mL 0300 (Not Given - Provider: Opal krishnamurthy RN - Reason: Patient/family refused)0900 (Not Given - Provider: Edison Powell RN - Reason: Patient/family refused)1500 (Not Given - Provider: Edison Powell RN - Reason: Patient/family refused) 0300 (Not Given - Provider: Lora carson RN - Reason: Patient/family refused)0849 (Not Given - Provider: Edison Powell RN - Reason: Patient/family refused)1450 (Not Given - Provider: Edison Powell RN - Reason: Patient/family refused) 0300 (Not Given - Provider: Lora carson RN - Reason: Patient/family refused)0809 (Not Given - Provider: Edison Powell RN - Reason: Patient/family refused) 3 mL, Nebulization, EVERY 6 HOURS, First dose on Mon05/17/22 at 2100, Until Discontinued, Routine 2100 (Not Given - Provider: Lora carson RN - Reason: Patient/family refused) 2100 (Not Given - Provider: Lora carson RN - Reason: Patient/family refused) ketorolac (Toradol) (30 mg/mL) injection 7.5 mg (COMPL ETED) 1547 (Given - Provider: Edison Powell RN) 7.5 mg, Intravenous, ONCE, 1 dose, On Mon05/21/22 at 1600, Routi ne lidocaine (Lidoderm) 5% patch 2 patch(Linked Group 2) 1235 (Patch Applied - Provider: Edison Powell RN) 1213 (Patch Applied - Provider: Edison Powell RN) 1148 (Patch Applied - Provider: Edison Powell RN) 2 patch, Transdermal, EVERY 24 HOURS, Fi rst dose on Mon05/20/22 at 1230, Until Discontinued, Apply patch(es) for 12 hours, and then remove for 12 hours. Apply to lower back., Routine lidocaine (Lidoderm) topical patch REMOVAL(Linked Grou p 2) 2345 (Patch Removed - Provider: Lora Teran RN) 2345 (Patch Removed - Provider: Lora Teran RN) Transdermal, EVERY 24 HOURS, First dose on Mon05/20/22 at 2345, Until Discontinued, Remove lidocaine 5% patch magnesium oxide (Mag-Ox) tablet 400 mg 1023 (Given - P rovider: Edison Powell RN)2150 (Given - Provider: Lora Teran RN) 0849 (Given - Provider: Edison Powell RN)2042 (Given - Provider: Lora Teran RN) 0808 (Given - Provider: Edison Powell RN) 400 mg, Oral, 2 TIMES DAILY, First dose on Mon05/17/22 at 2100, Until Discontinued, Routine methadone (Dolophine) (10 mg/mL) oral liquid 100 mg 09 39 (Given - Provider: Edison Powell RN) 0845 (Given - Provider: Edison Powell RN) 0813 (Given - Provider: Edison Powell RN) 100 mg, Oral, DAILY, First dose on Mon at 0900, Until Discontinued, Liquid methadone should be used to avoid diversion, and a mouth check should be performed after each dose., Routine metoprolol succinate XL (Toprol-XL) tablet 25 mg 1020 (Given - Provider: Edison Powell RN) 0846 (Given - Provider: Edison Powell RN) 0808 (Given - Provider: Edison Powell RN) 25 mg, Oral, DAILY, First dose on Mon at 0915, Until Discontinued, DO NOT CRUSH OR OPEN, Routine nicotine (Nicoderm CQ) 14 mg/24 hr patch 14 mg(Linked Group 3) 0943 (Given - Provider: Edison Powell RN - Comment: left back shoulder) 0845 (Given - Provider: Edison Powell RN - Comment: right back shoulder) 0811 (Given - Provider: Edison Powell RN) 14 mg (1 patch), Transdermal, DAILY, Fir st dose on Mon05/17/22 at 2045, Until Discontinued, Apply new patch to nonhairy, clean, dry skin on the upper body or upper outer arm; each patch should be applied to a different site , Routine nicotine (NICODERM CQ) 14 mg/24 hr patch Patch Removal (Linked Group 3) 09 (Patch Removed - Provider: Edison Powell RN) 0848 (Patch Removed - Provider: Edison Powell RN) 0809 (Patch Removed - Provider: Edison Powell RN) Transdermal, DAILY, First dose on Mon at 0900, Until Discontinued, Remove nicotine 14 mg/24 hr patch nicotine (NICODERM CQ) 14 mg/24 hr patch Patch Verific ation(Linked Group 3) 09 (Patch (dose and location) verified - Provider: Edison Powell RN)2099 (Patch (dose and location) verified - Provider: Lora Teran RN) 0848 (Patch (dose and location) verified - Provider: Edison Powell RN)2100 (Patch (dose and location) verified - Provider: Lora Teran RN) 0809 (Patch (dose and location) verified - Provider: Edison Powell RN) Transdermal, 2 TIMES DAILY, First dose o n 05/18/22 at 0800, Until Discontinued, Verify nicotine 14 mg/24 hr patch. nitroGLYcerin (Nitroglyn) 2 % ointment 0.3 inch (COMPLETED) 1212 (Given - Provider: Edison Powell RN) 0.3 inch (rounded from 0.25 inch), Topic al (Top), ONCE, 1 dose, On 05/22/22 at 1230, Application Site: chest, Routine nitroGLYcerin (Nitroglyn) 2 % ointment 0.5 inch (COMPL ETED) 1905 (Given - Provider: Edison Powell RN) 0.5 inch, Topical (Top), ONCE, 1 dose, O n 05/21/22 at 1930, Application Site: chest, Routine pantoprazole EC (Protonix) tablet 40 mg 0939 (Given - Provider: Edison Powell RN) 0847 (Given - Provider: Edison Powell RN) 0808 (Given - Provider: Edison Powell RN) 40 mg, Oral, DAILY, First dose on Mon at 0900, Until Discontinued, DO NOT CRUSH OR OPEN, Routine PRN Medication Order 05/21/2022 05/22/2022 05/23/2022 albuteroL (Proventil) nebulizer solution 2.5 mg 2.5 mg, Nebulization, EVERY 6 HOURS PRN, Starting on Mon05/17/22 at 1920, Until Mon05/23/22 at 1602, Wheezing, Shortness of Breath, Routine benzocaine (Orajel) 20 % gel 1 each 1601 (Given - Provider: Edison Powell RN) 1221 (Given - Provider: Edison Powell RN) 1 each, Mucous Membrane, 2 TIMES DAILY P RN, Tooth pain, Starting on Toya 05/19/22 at 2018, Until Mon05/23/22 at 1602 dextrose 10% infusion(Linked Group 4) 250 mL, at 1,000 mL/hr, Intravenous, KONSTANTIN GRANADOS 30 MIN PRN, Starting on Mon05/18/22 at 0937, Until Mon05/23/22 at 1602, For BG 50-70 mg/dL: Oral treatment preferred: If able to drink, give 120 mL Juice or Regular (not diet) soda OR If NPO, give 15 gram glucose 40% oral gel massaged into buccal mucosa OR if unconscious or uncooperative, give 25 gram (250 mL) Dextrose 10% IV over 15 minutes per protocol O R, if no IV access, 1 mg Glucagon IM. For BG less than 50 mg/dL: Oral treatment preferred: If able to drink, give 240 mL Juice or Regular (not diet) soda OR If NPO, give 30 gram glucose 40% oral gel massaged in buccal mucosa OR if unconsci ous or uncooperative, give 25 gram (250 mL) Dextrose 10% IV over 15 minutes per protocol OR, if no IV access, 1 mg Glucagon IM. Recheck BG in 30 minutes. May re peat juice/soda, gel, dextrose or glucag on once per episode. For persistent hypoglycemia, consider longer-acting treatment for the duration of the active insulin. glucagon (Glucagen) (1 mg/mL) injection solution 1 mg(Linked Raj up 4) 1 mg, Intramuscular, EVERY 30 MIN PRN, S tarting on Mon05/18/22 at 0937, Until Mon05/23/22 at 1602, Low blood sugar, For BG 50-70 mg/dL: Oral treatment preferred: If able to drink, give 120 mL Juice o r Regular (not diet) soda OR If NPO, giv e 15 gram glucose 40% oral gel massaged into buccal mucosa OR if unconscious or uncooperative, give 25 gram (250 mL) Dextrose 10% IV over 15 minutes per protocol OR, if no IV access, 1 mg Glucagon IM. * * For BG less than 50 mg/dL: Oral treatment preferred: If able to drink, give 240 mL Juice or Regular (not diet) soda OR If NPO, give 30 gram glucose 40% oral gel massaged in buccal mucosa OR if unconsc ious or uncooperative, give 25 gram (250 mL) Dextrose 10% IV over 15 minutes per protocol OR, if no IV access, 1 mg Glucagon IM. Recheck BG in 30 minutes. May r epeat juice/soda, gel, dextrose or gluca lauri once per episode. For persistent hypoglycemia, consider longer-acting treatment for the duration of the active insulin., Routine glucose (Glutose) 40% oral geL(Linked Group 4) 15-30 g of glucose, Buccal, EVERY 30 MIN PRN, Starting on Mon05/18/22 at 0937, Until Mon05/23/22 at 1602, Low blood sugar, For BG 50-70 mg/dL: Oral treatment preferred: If able to drink, give 120 mL Juice or Regular (not diet) soda OR If N PO, give 15 gram glucose 40% oral gel massaged into buccal mucosa OR if unconscious or uncooperative, give 25 gram (250 mL) Dextrose 10% IV over 15 minutes per pr otocol OR, if no IV access, 1 mg Glucago n IM. For BG less than 50 mg/dL: Oral treatment preferred: If able to drink, give 240 mL Juice or Regular (not diet) soda OR If NPO, give 30 gram glucose 40% o ral gel massaged in buccal mucosa OR if unconscious or uncooperative, give 25 gram (250 mL) Dextrose 10% IV over 15 minutes per protocol OR, if no IV access, 1 mg Glucagon IM. Recheck BG in 30 minutes . May repeat juice/soda, gel, dextrose o r glucagon once per episode. For persistent hypoglycemia, consider longer-acting treatment for the duration of the active insulin. 1 tube of Glutose-15 contain s 15 grams of glucose (net weight of tube = 37.5 grams.), Routin e ketorolac (Toradol) (30 mg/mL) injection 7.5 mg (COMPL ETED) 1020 (Given - Provider: Edison Powell RN) 7.5 mg, Intravenous, EVERY 6 HOURS PRN, 2 doses, Starting on Mon05/20/22 at 1345, Until Discontinued, Pain, Routine nitroGLYcerin (Nitrostat) disintegrating tablet 0.4 mg 2046 (Given - Provider: Lora Teran, DEVAN) 0.4 mg, Sublingual, EVERY 5 MIN PRN, Sta rting on Mon05/18/22 at 0507, Until Mon05/23/22 at 1602, Chest pain, SL nitroglycerin may be repeated every 5 minutes as needed up to 3 doses, Routine ondansetron (Zofran) tablet 4 mg 4 mg, Oral, EVERY 8 HOURS PRN, Starting on 05/22/22 at 1507, Until 05/23/22 at 1602, Nausea, Routine Linked Groups Order Group 1: POCT Fingerstick Glucose (CANCELED) Routine, 3 TIMES DAILY BEFORE MEALS, Fir st occurrence on 05/21/22 at 2215, Until Specified
Consider choosing FOUR TIMES A DAY BEFORE MEALS AND AT BEDTIME as frequency for: Patients who have good hypoglycemia awareness: -Patients w ho are eating meals during the day and sleeping at night -Patient who are otherwise stable And insulin lispro (HumaLOG;Admelog) (100 unit/mL) subcutaneous injection vial 1-4 UnitsJump to med 1-4 Units, Subcutaneous, 3 TIMES DAILY B EFORE MEALS, First dose (after last modification) on 05/21/22 at 2300, Until Discontinued
CORRECTION BOLUS [1-4 Units] Sensitive Sliding Scale (BG in mg/dL): Correction factor 4 0 (1 unit of insulin is expected to drop the glucose 40 mg/dL) BG 160 - 200 Give 1 unit BG 201 - 240 Give 2 units BG 241 - 280 Give 3 units BG greater than 280, give 4 units and recheck BG in 2 hours. - If recheck BG is LESS than 280, give no insulin and resume schedule - If recheck BG is GREA TER than 280, give 4 units and repeat BG in 2 hours (no more than 3 times) & call for new insulin orders. DO NOT hold if NPO, unless specifically directed to do so by written order. Pe r Blood Glucose Monitoring Policy, re- check a BG of > 240 mg/dL in 2 hours.
Routine Group 2: lidocaine (Lidoderm) 5% patch 2 patchJump to med 2 patch, Transdermal, EVERY 24 HOURS, Fi rst dose on Mon05/20/22 at 1230, Until Discontinued
Apply patch(es) for 12 hours, and then remove for 12 hours. Apply to lower back.
Routine And lidocaine (Lidoderm) topical patch REMOVALJump to med Transdermal, EVERY 24 HOURS, First dose on Mon05/20/22 at 2345, Until Discontinued
Remove lidocaine 5% patch
Group 3: nicotine (Nicoderm CQ) 14 mg/24 hr patch 14 mgJump to med 14 mg (1 patch), Transdermal, DAILY, Fir st dose on Mon05/17/22 at 2045, Until Discontinued
Apply new patch to nonhairy, clean, dry skin on the upper body or upper outer arm; each patch should be applied to a different site
Routine And nicotine (NICODERM CQ) 14 mg/24 hr patch Patch VerificationJump to med Transdermal, 2 TIMES DAILY, First dose o n Mon05/18/22 at 0800, Until Discontinued
Verify nicotine 14 mg/24 hr patch.
And nicotine (NICODERM CQ) 14 mg/24 hr patch Patch RemovalJump to med Transdermal, DAILY, First dose on Mon at 0900, Until Discontinued
Remove nicotine 14 mg/24 hr patch
Group 4: glucose (Glutose) 40% oral geLJump to med 15-30 g of glucose, Buccal, EVERY 30 MIN PRN, Starting on Mon05/18/22 at 0937, Until Mon05/23/22 at 1602, Low blood sugar
For BG 50-70 mg/dL: &nbs p;Oral treatment preferred: If able to d rink, give 120 mL Juice or Regular (not diet) soda OR If NPO, give 15 gram glucose 40% oral gel massaged into buccal mucosa OR if unconscious or uncooperative, gi ve 25 gram (250 mL) Dextrose 10% IV over 15 minutes per protocol OR, if no IV access, 1 mg Glucagon IM. For BG less than 50 mg/dL: Oral treatment pre ferred: If able to drink, give 240 mL Ju ice or Regular (not diet) soda OR If NPO, give 30 gram glucose 40% oral gel massaged in buccal mucosa OR if unconscious or uncooperative, give 25 gram (250 mL) De xtrose 10% IV over 15 minutes per protoc ol OR, if no IV access, 1 mg Glucagon IM. Recheck BG in 30 minutes. May repeat juice/soda, gel, dextrose or glucagon once per episode.&nb sp; For persistent hypoglycemia, consider longer-acting treatment for the duration of the active insulin. 1 tube of Glutose-15 contains 15 grams of glucose (net weight of tube = 37.5 grams.)
Routine Or dextrose 10% infusionJump to med 250 mL, at 1,000 mL/hr, Intravenous, KONSTANTIN RY 30 MIN PRN, Starting on Mon05/18/22 at 0937, Until Mon05/23/22 at 1602
For BG 50-70 mg/dL: Oral t reatment preferred: If able to drink, gi ve 120 mL Juice or Regular (not diet) soda OR If NPO, give 15 gram glucose 40% oral gel massaged into buccal mucosa OR if unconscious or uncooperative, give 25 gr am (250 mL) Dextrose 10% IV over 15 nuvia zofia per protocol OR, if no IV access, 1 mg Glucagon IM. For BG less than 50 mg/dL: Oral treatment preferred: If able to drink, give 240 mL Juice or R egular (not diet) soda OR If NPO, give 30 gram glucose 40% oral gel massaged in buccal mucosa OR if unconscious or uncooperative, give 25 gram (250 mL) Dextrose 1 0% IV over 15 minutes per protocol OR, i f no IV access, 1 mg Glucagon IM. Recheck BG in 30 minutes. May repeat juice/soda, gel, dextrose or glucagon once per episode. & nbsp; For persistent hypoglycemia, con upholsterer limousine and hearse longer-acting treatment for the duration of the active insulin.
Or glucagon (Glucagen) (1 mg/mL) injection solution 1 mgJump to med 1 mg, Intramuscular, EVERY 30 MIN PRN, S tarting on Mon05/18/22 at 0937, Until Mon05/23/22 at 1602, Low blood sugar
For BG 50-70 mg/dL: Oral treatment preferred: If able to drink, g mateo 120 mL Juice or Regular (not diet) soda OR If NPO, give 15 gram glucose 40% oral gel massaged into buccal mucosa OR if unconscious or uncooperative, give 25 g albino (250 mL) Dextrose 10% IV over 15 min utes per protocol OR, if no IV access, 1 mg Glucagon IM. For BG less than 50 mg/dL: Oral treatment preferred: If able to drink, give 240 mL Juice or Regular (not diet) soda OR If NPO, give 30 gram glucose 40% oral gel massaged in buccal mucosa OR if unconscious or uncooperative, give 25 gram (250 mL) Dextrose 10% IV over 15 minutes per protocol OR, if no IV access, 1 mg Glucagon IM. Recheck BG in 30 minutes. May repeat juice/soda, gel, dextrose or glucagon once per episode. &amp ;nbsp; For persistent hypoglycemia, co nsider longer-acting treatment for the duration of the active insulin.
Routine documented in this encounter Care Teams Bank Messenger Relationship Specialty Start Date End Date Lora Parekh MD PCP - General Family Medicine 08/[birth year][address] [place] [id number] documented as of this encounter
--- OUTSIDE RECORDS SUMMARY | 2022-08-14 18:34 | XMS_ITS | Encounter Summary ---
:1975 Author Organization [facility] [place] [address] Care Team Providers Name Role Phone Lora Parekh MD Primary Care Provider Reason for Referral Home Health Care (Routine) - Authorized Specialty Diagnoses / Procedures Referred By Contact Refer red To Contact Diagnoses ASCVD (arteriosclerotic cardiovascular disease) Hernán Mariscal MD a & [facility] CARDIOLOGY DEPT [address] [place] [id number] [place] [address] Fax: Referral ID Status Reason Start Date Expiration Visits Visits Date Requested Authorized [id number] Authorized Consult, 05/25/2022 11/21/2022 999 999 Test & Treat iagnostic Test (Routine) - Authorized Specialty Diagnoses / Procedures Referred By Contact Refer red To Contact Cardiology Diagnoses Ischemic cardiomyopathy Mary Wray [facility] Non-Inv Card Lab Procedures Echocardiogram Transthoracic FOREST ENGINEER [facility] [place] [address] [place] [address] Referral ID Status Reason Start Expiration Visits Visits Date Date Requested Authorized [id number] Authorized Specialty 05/19/2022 05/19/2023 1 1 Service Requested Consultation (Routine) - Authorized Specialty Diagnoses / Procedures Referred By Contact Refer red To Contact Diagnoses NSTEMI (non-ST elevated myocardial infarction) [place] [address] Referral ID Status Reason Start Date Expiration Visits Visits Date Requested Authorized [id number] Authorized Consult, 05/19/2022 11/15/2022 36 36 Test & Treat Reason for Visit Auth/Cert Specialty Diagnoses / Procedures Referred By Contact Refer red To Contact Diagnoses Ischemic cardiomyopathy Coronary artery disease involving blue lake coronary artery of blue lake heart without angina pectoris [I25.10] Tameka Neal [facility] Procedures PRG CATH PLMT CORONARY ART W/INJ FOR ANGIO W/R HEART CATH IMG S&I PRG CATH PLMT LEFT HEART CATH & ARTS W/INJ & ANGIO IMG S&I CARDIAC CATHETERIZATION CORONARY ANGIOGRAPHY; W RHC CORONARY ANGIOGRAPHY; W LHC,[place] [address] Referral ID Status Reason Start Date Expiration Date Visits Requ ested Visits Authorized [id number] 1 1 Encounter Details Date Type Department Care Team Description 05/17/2022 - Hospital Intermediate Cardiac Latnaya Barrett MD [facility] [place] [address] Coronary artery disease involving blue lake coronary artery of blue lake heart without angina pectoris; 05/23/2022 Encounter Care Unit Tameka Mariano MD [facility] [place] [address] NSTEMI (non-ST elevated myocardial infar ction); [facility] Hernán Mariscal MD [facility] [place] [address] Ischemic cardiomyopathy; [facility] Skin lesion; [facility] ASCVD (ar teriosclerotic cardiovascular disease) [place] [address] Social History Tobacco Use Types Packs/Day Years [...] not included. Discharge Summary Patient Name: Aracelis Berkowitz Patient Age: 46 y.o. Language: Uruguayan Race: [...] DAMIÁN Che, DAMIÁN Saunders, LILY Cardiovascular Medicine [phone] Discharge Diagnoses (Hospital Problems) and Secondary Diagnoses (Chronic Problems): Active Hospital Problems Diagnosis ??? Ischemic cardiomyopathy ??? ASCVD (arteriosclerotic cardiovascular disease) Resolved Hospital Problems No resolved problems to display. Active Non-Hospital Problems Diagnosis ??? Myositis ??? NSTEMI (non-ST elevated myocardial infarction) ??? Dislocation of left shoulder joint, chronic, recurrent, with multiple surgeries. Operations/Major Procedures: Operations: [facility] 05/17/22 Coronary Angiography: Dominance: Right Left Main [...] distal RCA using a 6 SL Fr [employer] Right 1.5 guiding catheter and a Gentuity. [...] atmospheres. A premounted 2.75 x 30 mm Oatman Camden (EMILEE) was deployed. Following stent deployment, the [...] A premounted 2.00 x 22 mm Srikanth Camden (EMILEE) was deployed. Following stent deployment, the [...] guide. A premounted 3.00 x 12 mm Oatman Camden (EMILEE) was deployed with a maximum inflation [...] on chronic DAPT on arrival to the laborer electroplating. These recommendations are made at the time of the intervention. Patient and provider preferences or a changing clinical situation may require modification of this regimen. Consult [facility] Interventional Cardiology for questions. This patient has [...] against any medical treatment. Consult http://tools.acc.org/DAPTriskapp/#!/content/calculator/ or [facility] Interventional Cardiology for questions Conclusions: * Two [...] collapsed. History of Presentation: Per admission H+P December Sho is a 46 y.o. female with [...] PPD, [place] ?? Hospital Course: #ASCVD, staged PCI [...] with the heart failure team here at [facility] within the next 2 weeks. The patient was evaluated by the cardiac rehab team. The patient tolerated supervised ambulation in the hallway and up/downstairs with no anginal symptoms. It was recommended that the patient return home and participate in a supervised cardiac rehab program at [facility]. #Hyperlipidemia Lipid profile showed total cholesterol [...] home (although the Jardiance is at heart failuredosin). Her hemoglobin A1c was 6.0. Given the [...] juice or regular (not diet) soda 6 lifesBybans small box of raisins 4 glucose tablets [...] patient's methadone dosing was verified at the [facility] clinic and she continued on 100 mg of methadone daily. Due to bedrest following her procedures doses of Toradol were used to assist with back pain. Lidoderm patches as well as Tylenol were also given to assist with her chronic pain. Both fentanyl and Versed were used when she was in the cardiac laborer electroplating (both times) and the [facility] clinic was informed of these medication administrations. The patient was discharged home on no new pain medications. A letter will be faxed to the [facility] clinic to inform them of what meds [...] Labs 09/02/21 1740 TSH 2.32 Recent Labs 05/17/222011 HA1C 6.0* No results for input(s): CK, [...] Med & Lrg Kit 1 Product by [facility].(Non-Drug; Combo Route) route 2 times daily. 1 [...] minimum of 12. After this time, your lacquer coater will determine if you need to continue [...] away. Stay on the phone. The emergency honing machine operator will tell you what to do. [...] appointments: During 8am-5pm Monday through Monday call [phone] to speak with a nurse in the cardiology clinic All other times call [phone] and ask to speak to the director of physical education airline station agent. Return to work: One week, if working prior to hospitalization Follow up Appointments: PCP Lora Parekh MD [phone] May 26, 2022 at 10:40 am Cardiology [...] 2:00 PM Denise Reeves PA Cardiology at [facility] Arrive at: Digital Production Manager Area [phone] 08/22/2022 12:00 PM ECHO REGULAR Non-Invasive Cardiology Lab [facility] Arrive at: [facility] Area [phone] 08/22/2022 1:00 PM LAB, THREE L Lab [address] [place] [address] Arrive at: [address] [phone] 08/22/2022 2:00 PM Tameka Neal MD Cardiology at [facility] Arrive at: Digital Production Manager Area [phone] Future Orders Complete By Expires Echocardiogram Transthoracic [91102 CPT(R)] 05/19/2022 11/19/2022 Process Instructions: Scheduling Instructions: Comments: After 08/17 Questions: Where will study be performed?: [facility] Clinics Is a Bubble Study requested?: Does the patient have Congenital Heart Disease?: Does patient require sedation?: GA rationale: Referral to Cardiac Rehab [GTG656 Custom] As directed Process Instructions: If no progress note charted, please enter Clinical details in comments. Scheduling Instructions: Questions: My question or request is: angina Discharge References/Attachments None Discussed with MD Julieta Horn PA-C Pager #[phone] 05/23/2022 Associated attestation - Hernán Mariscal MD [...] minimum of 12. After this time, your lacquer coater will determine if you need to continue [...] away. Stay on the phone. The emergency honing machine operator will tell you what to do. [...] appointments: During 8am-5pm Monday through Monday call [phone] to speak with a nurse in the cardiology clinic All other times call [phone] and ask to speak to the director of physical education airline station agent. Return to work: One week, if working prior to hospitalization Follow up Appointments: PCP Lora Parekh MD [phone] May 26, 2022 at 10:40 am Cardiology [...] as needed. 0 04/13/2022 (Flonase) 50 mcg/actuation Bonifay, Suspension folic acid (Folvite) 1 Take 1,000 mcg by 0 2021 mg Tablet mouth daily. humaLOG KwikPen 100 as needed. 0 04/13/2022 unit/mL Insulin Pen dextromethorphan Take 1 capsule by 20 capsule 0 02/24/2022 (Robitussin) 15 mg mouth every 6 hours. Capsule ondansetron (Zofran) 4 Take 1-2 tablets by 20 tablet 0 05/2 03/2022 mg Tablet mouth every 8 hours as [...] ejection daily. fraction), Coronary artery disease involving blue lake coronary artery of blue lake heart without angina pectoris, Hypertension, unspecified type [...] distress. Patient to be taken home by [facility]. Julieta Saunders PA - 05/23/2022 10:46 AM EDT Inpatient Cardiology Progress Note Patient Name: Aracelis Berkowitz Service: TRAVEL INSURANCE AGENT / PA Responsible Attending: Hernán Mariscal MD [...] %Sat Location %Sat Main Pulmonary Artery 66.0 [facility] 05/17/22 Conclusions: * Two vessel coronary artery [...] discharge, approval has been obtained with insurance. [facility] who provides methadone was updated on discharge [...] Discussed with MD Julieta Horn PA-C Pager #[phone] 05/23/2022 Associated attestation - Hernán Mariscal MD - 05/23/2022 3:40 PM EDT I have seen the patient and reviewed the advanced practice provider's above history and I agree withthe details as written. The assessment and plan were formulated in discussion with me and I agree with them as documented. Joy Munoz APRN - 05/23/2022 8:50 AM EDT Follow Up [...] Recent Glucose Levels Recent Labs 05/23/22 0727 05/22/22200505/22/22 1739 05/22/22 1207 05/22/22 0804 05/21/22 1934 [...] your insulin doses adjusted. Joy Munoz APRN [facility] Endocrinology Diabetes Management Pager [phone] 20 minutes of this 35 minute visit [...] Cardiology Progress Note Patient Name: December Service: TRAVEL INSURANCE AGENT / PA Responsible Attending: Hernán Mariscal MD [...] discharge, approval has been obtained with insurance. [facility] who provides methadone (spoke to Ruthann in [...] Progress Note Patient Name: Aracelis Sho Service: TRAVEL INSURANCE AGENT / PA Responsible Attending: Hernán Mariscal MD [...] %Sat Main Pulmonary Artery 66.0 Assessment: Aracelis Sho is a 46 y.o. [...] discharge, approval has been obtained with insurance. [facility] who provides methadone (spoke to Ruthann in [...] Physical assessment as documented. C/O chest pain. MD notified. Nitro ointment ordered. Pain subsided, not [...] deficits provided, if applicable: As above Jyothi Powell RN - 05/20/2022 3:26 PM EDT Pt [...] Diet:cardiac carb control 60/60/75 5. Monitoring: Q4 ?? Discharge Considerations: Medications - Outpatient treatment regimen recommendations pending based on the hospital course. Monitoring - continue BG tid ac & hs, Have environmental educator reach out to determine if CGM [...] NOT HER HOME DOSING Joy Munoz APRN [facility] Endocrinology Diabetes Management Pager [phone] minutes of this 35 minute visit [...] Inpatient Cardiology Progress Note Patient Name: December Sho Service: TRAVEL INSURANCE AGENT / PA Responsible Attending: Hernán Mariscal MD [...] Behavior: Behavior normal. Lab Comments: Recent Labs 05/20/22 03405/19/22 0333 05/17/222011 WBC 7.4 6.9 9.8* HGB 13.9 13.9 15.1 HCT 43.7 42.7 44.9 PLATELET 295 300 319 No results for input(s): INR in the last 168 hours. Recent Labs 05/20/22 0340 05/19/22 0333 05/17/222011 NA 142 142 140 K 5.5* 4.8 3.5 CL 107 106 102 CO2 28 29 26 BUN 25* 19* 15 CREATININE 0.77 0.83 0.68* Recent Labs 05/17/222011 AST 18 ALT 16 ALKPHOS 118* BILITOT 0.4 BILIDIR 0.1 Recent Labs 05/20/22 0340 05/19/22 0333 05/17/222011 CALCIUM 9.0 8.5 8.6 MAGNESIUM [...] been obtained with insurance. Dry weight at [facility] 188-190 pounds. Will start lasix 40 mg daily today and follow weight for tomorrow [facility] who provides methadone (spoke to Ruthann in [...] DVT PPx: SQH Discussed with MD Mary Hron, FOREST ENGINEER Pager [phone] 05/20/2022 Associated attestation - Hernán Mariscal MD - 05/21/2022 7:21 AM EDT I have seen the patient and reviewed the advanced practice provider's above history and I agree withthe details as written. The assessment and plan were formulated in discussion with me and I agree with them as documented. Mary Wray, FOREST ENGINEER - 05/19/2022 10:19 AM EDT Images from the original note were not included. Inpatient Cardiology Progress Note Patient Name: Aracelis Sho Service: TRAVEL INSURANCE AGENT / PA Responsible Attending: Tameka Chu MD [...] be helpful. Aware of contact to the [facility] clinic for methadone discussion. Review of Systems: Review [...] Hold] atorvastatin 80 mg Oral QPM ??? [NOV Hold] colchicine 0.6 mg Oral BID ??? [NOV Hold] dextromethorphan 15 mg Oral Q6H ??? [NOV Hold] ferrous sulfate EC 325 mg Oral Every Other Day ??? [NOV Hold] folic acid 1,000 mcg Oral Daily ??? [NOV Hold] gabapentin 1,200 mg Oral Nightly ??? [NOV Hold] magnesium oxide 400 mg Oral BID ??? [NOV Hold] potassium chloride ER 20 mEq Oral Daily ??? [NOV Hold] heparin (porcine) 5,000 Units Subcutaneous Q8H [...] the last 168 hours. Recent Labs 05/19/22 0333 05/17/22201105/13/22 1136 NA 142 140 140 K 4.8 3.5 3.5 CL 106 102 95* CO2 29 26 33* BUN 19* 15 25* CREATININE 0.83 0.68* 0.80 Recent Labs 05/17/222011 AST 18 ALT 16 ALKPHOS 118* BILITOT 0.4 BILIDIR 0.1 Recent Labs 05/19/22 0333 05/17/22201105/13/22 1136 CALCIUM 8.5 8.6 9.3 MAGNESIUM 1.17* [...] No renal cysts. Bladder collapsed. Assessment: Aracelis Berkowitz is a 46 y.o. [...] #DVT PPx: SQH Discussed with MD Mary Laughlin, FOREST ENGINEER Pager [phone] 05/19/2022 Associated attestation - Tameka Neal MD - 05/19/2022 11:10 AM EDT Cardiology Attending Attestation I was the assigned attending lacquer coater for this clinical encounter. For the purposes of billing, I was directly involved in the clinical decision making and the plan of care is reasonable. Please see my separate attending note from today for additional details. Tameka Coker MD MPH Advanced Heart Disease & Cardiac Transplant Attending 05/19/2022, 11:10 AM Giovanna Hammonds RN - 05/19/2022 9:31 AM EDT Provider Team recommends that patient go home with a Life Vest. Care Management Team will submit appropriate documentation for prior authorization. Estimated Date of Discharge: 05/23/2022 Clinical Trials Assistant to fax the following to [facility]: FAX: [phone] LIFEVEST Order Form(CM to have this scanned and emailed to Clinical Trials Assistant) Facesheet H&P EP Note with & ZOLL [...] reason for life vest ischemic cardiomyopathy/hx of DE with EF < 35% - Life vest default settings: VT heart rate threshold 150 bpm; VF heart rate threshold 200 bpm; treatment energy 150 joules all five shocks. Gita Krishnan MD Whiting Machine Operator, PGY4 Pager [phone] The EP team will facilitate wearable defibrillator [...] daily. ??? fluticasone propionate (Flonase) 50 mcg/actuation Bonifay, Suspension as needed. ??? folic acid (Folvite) [...] Med & Lrg Kit 1 Product by [employer].(Non-Drug; Combo Route) route 2 times daily. 1 [...] ??? insulin needles, disposable, 32 gauge x 5/ Needle Inject 1 each subcutaneously daily. Indications: [...] Intake/Output Summary (Last 24 hours) at 05/19/2022 0727 Last data filed at 05/18/2022 0910 Gross [...] need for ICD. Plan for lifevest at [facility]. Plan: 1. ASA, plavix, atova 2. Continue [...] Inpatient Cardiology Progress Note Patient Name: December Sho Service: TRAVEL INSURANCE AGENT / PA Responsible Attending: Tameka Chu MD [...] be helpful. Aware of contact to the [facility] for methadone discussion. Review of Systems: Review [...] PPx: SQH Discussed with MD Mary Laughlin FOREST ENGINEER Pager [phone] 05/18/2022 Tameka Neal MD - 05/18/2022 7:57 [...] daily. ??? fluticasone propionate (Flonase) 50 mcg/actuation Bonifay, Suspension as needed. ??? folic acid (Folvite) [...] Med & Lrg Kit 1 Product by [facility].(Non-Drug; Combo Route) route 2 times daily. 1 [...] Vitals for the past 168 hrs: Weight 08/17/22 0348 83.6 kg (184 lb 4.9 oz) [...] & Cardiac Transplant Attending 05/18/2022, 7:58 AM Tiffanie Rowe RN - 05/17/2022 7:00 PM EDT OUTCOME EVALUATION NOTE: OUTCOME SUMMARY: Received patient from warehouse general laborer. Post PCI via right radial site. Pulses [...] PPD, [place]. REVIEW OF SYSTEMS: Constitutional: weight loss, [...] dose administered prior to arrival in the laborer electroplating. Recommended anti-platelet/anti-thrombotic regimen: Continue aspirin 81 mg daily. Continue clopidogrel 75 mg daily. These recommendations are made at the time of the intervention. Patient and provider preferences or a changing clinical situation may require modification of this regimen. Consult [facility] Interventional Cardiology for questions. The 1 year [...] 1.01) [facility] by [facility] ??? PRO DECOMPRESS ANT/LAT+POST LEG CMPART Left 02/19/2022 FASCIOTOMY, LOWER LEG, ALL COMPARTMENTS (WRVU 7.82) performed by Lora Mark MD at [facility] OR Significant Family History: History reviewed. [...] B/L, no calf tenderness, swelling, or erythema. Neuro/MAKEUP ARTIST: AAO x 3, No gross motor deficits. [...] daily. ??? fluticasone propionate (Flonase) 50 mcg/actuation Bonifay, Suspension as needed. ??? folic acid (Folvite) [...] Med & Lrg Kit 1 Product by [employer].(Non-Drug; Combo Route) route 2 times daily. 1 [...] SQH Paty Bueno MD 05/17/2022 Pager # [phone] Tai Freire DO - 05/17/2022 1:31 PM EDT Images from the original note were not included. Patient Name: Aracelis Berkowitz Patient Age: 46 y.o. Birthdate: 1975 Admit date: 05/17/2022 Attending Physician: Rafi Barrett MD [facility] [place] [address] SAME DAY CARDIAC CATHETERIZATION LAB H&P ID: [...] as planned -consent signed Tai Freire DO Whiting Machine Operator 05/17/2022 documented in this encounter Miscellaneous Notes [...] Nurse Note Situation: Asked to see Aracelis Sho by Tiffanie Rowe, RN for Under both [...] to follow: two weeks.. Discussed plan with: RNKarina Vazquez Please contact DAISY SIMON RN on pager [phone] or the wound care team at [phone] or pager [phone] skin and wound care concerns or questions. Initial Assessments - Carrie Mike RN - 05/18/2022 5:29 PM EDT Office of Care Management Initial Assessment Carrie Mike RN reviewed record and discussed patient with Care Team. Source of Information: Team, bedside nurse, medical record, and Patient Introduced self/reviewed role; services accepted. Reason for Hospitalization: Per H&P by Dr. Ptay Bueno: Aracelis Berkowitz is a 46 y.o. [...] PPD, [place]. ?? Covid Vaccination Status: (Per chart Pt is fully vaccinated; did not discuss) Last COVID test: Lab Results Component Value Date COVID19 Not Detected 02/22/2022 [id number] Not Detected 02/19/2022 Past medical History: Past [...] surrogate would be surrogate decision maker per [place] surrogate decision making law. (Only good for 180 days) Any patient receiving care in [place] must abide by [place] law. 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 Home Environment: Others in the home: child(fahad), adult, child(fahad), dependent (3 children in home, 19 y/o, 17 y/o and 11 y/o). Current Living Arrangements: home/apartment/condo. Accessibility Concerns: . Not discussed Resource / Environmental Concerns: Resource/Environmental Concerns: none Current DME: cane - quad, walker - standard (Pt would like a shower chair) Home Address confirmed as: [address] [place] [id number] Social & Family Supports: All names listed [...] Yes ; Prescription Coverage: Yes Preferred Pharmacy: [id number] [place], [place] - [address] [facility] [address] [facility] [address] [place], [place] - [address] [facility] [address] [facility] [address] [employer] [address] - [place], [place] - [address] [facility] [address] [facility] [address] [place] Status: Patient is a : No Primary Care Provider: Lora Parekh MD [phone] Patient/Caregiver Goals of Treatment: Potential Needs for Transition of Care: home health care (currently working [employer] 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 Pt states [...] transition of care planning. Carrie Mike Pager: [phone] Cell: Consult Note - Joy Munoz APRN [...] regimen: Diabetes Provider: PCP, Dr. Lora Parekh, [facility] Medications: Jardiance 10mg daily, Tresiba U200 116 units daily, Humalog SS for BG > 200, Victoza1.8mg daily Monitoring is done 4+ times daily Most recent A1C: Recent Labs 05/17/22201102/21/22 0341 09/02/21 1330 HA1C 6.0* 5.6 6.8* [...] Monitoring: q 4 hrs Diet: cardiac diet / REVIEW OF SYSTEMS: All 12 systems reviewed [...] decision deferred to PCP at last discharge. Aracelis reports taking considerably more insulin at home [...] continue BG tid ac & hs, Have environmental educator reach out to determine if CGM covered for her Diet - low fat/low carb diet Exercise - weight-bearing exercise 30 min/day, as tolerated Thank you for allowing us to provide care for your patient Joy Munoz APRN Endocrinology Diabetes Management Service Pager: [phone] 70 minutes of this 80 minute visit [...] in an outpatient cardiac rehabilitation program at [facility] was discussed. Patient agrees to a referral to this program. The referral will be sent at discharge and the patient should be contacted by the Program within 1- 2 weeks from discharge. documented in this encounter Plan of Treatment Upcoming Encounters Date Type Specialty Care Team Description 08/22/2022 Appointment Cardiology 08/22/2022 Laboratory Appointment Lab 08/22/2022 Office Visit Cardiology Tameka Neal MD [facility] [address] [place], [place] [address] (Wo rk) Scheduled Orders Name Type [...] AM EDT disease involving procedure are in blue lake coronary the results artery of blue lake section. heart without angina pectoris HC VENIPUNCTURE [...] AM EDT disease involving procedure are in blue lake coronary the results artery of blue lake section. heart without angina pectoris POCT GLUCOSE [...] AM EDT disease involving procedure are in blue [place] coronary the results artery of blue lake section. heart without angina pectoris POCT GLUCOSE [...] AM EDT disease involving procedure are in blue lake coronary the results artery of [place] section. heart without angina pectoris POCT GLUCOSE [...] procedure are i n the results section. MANAGER SYSTEMS SCAN 05/19/2022 12:00 Res ults for this [...] PM EDT disease involving procedure are in [place] coronary the results artery of [place] section. heart without angina pectoris US ABDOMEN [...] AM EDT disease involving procedure are in [place] coronary the results artery of [place] section. heart without angina pectoris BMP W/FASTING [...] PM EDT disease involving procedure are in [place] coronary the results artery of [place] section. heart without angina pectoris CARDIAC CATHETERIZATION Routine 05/17/2022 5:24 Coronary arter y Results for this PM EDT disease involving procedure are in [place] coronary the results artery of [place] section. heart without angina pectoris CORONARY ANGIOGRAPHY; W 05/17/2022 2:11 Coronary arter y LHC,POSSIBLE PCI PM EDT disease involving [place] coronary artery of [place] heart without angina pectoris CORONARY ANGIOGRAPHY; W 05/17/2022 2:11 Coronary arter y RHC PM EDT disease involving [place] coronary artery of [place] heart without angina pectoris POCT GLUCOSE Routine 05/17/2022 12:44 Results for this PM EDT procedure are i n the results section. documented in this encounter Results POCT Glucose (05/23/2022 11:39 AM EDT) P athologist Signature POC Glucose 186 65 - 199 [facility] mg/dL [facility] Comment: Supplemental ranges: <140 mg/dL before meals <180 mg/dL all other times of the day Specimen Anatomical Collection Method Collection Time Receive d Time (Source) Location / / Volume Laterality Blood 05/23/2022 11:39 05/23/2022 AM EDT 11:39 AM EDT Hernán Mariscal MD POINT OF CARE TEST ORDERABLE S Performing Organization Address City/State/[place] [address] Arterial Duplex Arm, Unilat (05/23/2022 11:38 AM EDT) Component Value Ref Test Analysis Performed At Patholo gist Range Method Time Signature VB Text Department: Vascular Surgery Lab VASCUBASE Report Patient: [id number] (December) CPT: 59790 Referring Physician: SHARMIN MARTINEZ ?? Phone: Indications: [...] POC Glucose 220 (H) 65 - 199 [facility] mg[facility]dL [facility] Comment: Supplemental ranges: <140 mg/dL before meals <180 mg/dL all other times of the day Specimen Anatomical Collection Method Collection Time Receive d Time (Source) Location / / Volume Laterality Blood 05/23/2022 7:27 AM 7:27 EDT AM EDT Hernán Mariscal MD POINT OF CARE TEST ORDERABLE S Performing Organization Address City/State/[place] [address] (ABNORMAL) Differential, Automated (05/23/2022 3:19 AM EDT) Patholo gist Method Time Signature Neutrophils % 36.4 % [facility] Neutr Abs (ANC) 2.86 1.70 - [facility] 6.10 [facility] x10(3)/[facility] LABORATORY Lymphocytes % 44.5 % [facility] Lymphocytes Abs 3.5 (H) 0.9 - 3.2 [facility] x10(3)/[facility] LABORATORY Monocytes % 9.8 % [facility] Monocyte Abs 0.8 0.3 - 0.9 [facility] x10(3)/[facility] LABORATORY Eosinophils % 8.4 % [facility] Eosinophils Abs 0.7 (H) 0.0 - 0.4 [facility] x10(3)/[facility] LABORATORY Basophils % 0.6 % [facility] Basophils Abs 0.0 0.0 - 0.1 [facility] x10(3)/[facility] LABORATORY Immature Gran % 0.30 % [facility] Comment: Immature granulocytes(IG's)percentage an d absolute count will include metamyelocytes, myelocytes, and promyelo cytes. Blood smears from CBCs yielding IG's will be scanned manually for concor danmariama. If this scan disagrees with the automated IG or if promyelocytes are not ed, a manual differential will be performed. Anaya Gran Abs 0.02 0.00 - 0.04 x10(3)/[facility] MAR Y [facility] LABORATORY Specimen Anatomical Collection Method Collection Time Receive d Time (Source) Location / / Volume Laterality Blood 05/23/2022 3:19 AM 3:40 EDT AM EDT Resulting Agency Comment Spec In Lab Sharmin J King DAMIÁN HEMATOLOGY ORDERABLES Performing Organization Address City/State/[place] [address] (ABNORMAL) Hemogram (05/23/2022 3:19 AM EDT) Analysis Performed At Patho logist Time Signature WBC 7.8 4.0 - 9.5 [facility] x10(3)/[facility] LABORATORY RBC 4.98 4.00 - [facility] 5.21 [facility] x10(6)/[facility] LABORATORY Hemoglobin 14.3 11.7 - [facility] 15.5 g/dL [facility] Hematocrit 44.1 35.7 - [facility] 45.[facility] % [facility] MCV 88.6 82.6 - [facility] 94.4 [facility] LABORATORY MCH 28.7 27.1 - [facility] 32.[address] [facility] MCHC 32.4 31.7 - [facility] 35.0 g/dL [facility] Platelets 301 145 - 357 [facility] x10(3)/[facility] LABORATORY RDWSD 46.6 (H) 37.0 - [facility] 46.0 [facility] LABORATORY RDWCV 14.5 (H) 11.5 - [facility] 14.1 % [facility] MPV 10.4 7.6 - 12.9 [facility] LABORATORY nRBC % Auto 0.0 % [facility] nRBC Abs Auto 0.000 0.000 - [facility] 0.000 [facility] x10(3)/[facility] LABORATORY Specimen Anatomical Collection Method Collection Time Receive d Time (Source) Location / / Volume Laterality Blood 05/23/2022 3:19 AM 2 3:40 EDT AM EDT Resulting Agency Comment Spec In Lab Sharmin Che DAMIÁN HEMATOLOGY ORDERABLES Performing Organization Address City/State/[place] [address] (ABNORMAL) BMP w/fasting Glucose (05/23/2022 3:19 AM EDT) athologist Signature Glucose 277 (H) 65 - 99 [facility] Fasting mg/dL [facility] Comment: ?Fasting* Glucose Interpretive C riteria [...] of Diabetes Mellitus, Position Statement from the [place] [employer]. ??Diabete s Care, Volume 33, Supplement 1, Oct 2009 BUN 24 (H) 8 - 18 mg/dL [facility] Creatinine 0.77 0.70 - 1.20 mg/dL [facility] Sodium 137 135 - 145 mmol/L [facility] Potassium 4.4 3.5 - 5.0 mmol/L [facility] Comment: Please note: ??Patients with WBC >100,00 0 may have falsely elevated Potassium levels. ??For accurate Potassium quantif ication in these patients send serum separator tube (gold top) for subsequent determinations. ??Contact the Clinical Chemistry Laboratory if there are any qu estions. Chloride 102 98 - 107 mmol/L [facility] CO2 24 22 - 31 mmol/L [facility] Anion Gap 11 5 - 15 mmol/L [facility] Calcium 8.8 8.5 - 10.5 mg/dL [facility] Estimated GFR 96 >=60 mL/min/1.73 m?? [facility] Comment: This patient's estimated [...] Comment Spec In Lab Sharmin Che APRN CHEMISTRY ORDERABLES Performing Organization Address City/State/ZIP Code Phon e Number [address] POCT Glucose (05/22/2022 8:06 PM EDT) athologist Signature POC Glucose 153 65 - 199 [facility] mg/dL [facility] Comment: Supplemental ranges: <140 mg/dL before meals <180 mg/dL all other times of the day Specimen Anatomical Collection Method Collection Time Receive d Time (Source) Location / / Volume Laterality Blood 05/22/2022 8:06 PM 2 8:06 EDT PM EDT Hernán Mariscal MD POINT OF CARE TEST ORDERABLE S Performing Organization Address City/State/ZIP Code Phon e Number [address] POCT Glucose (05/22/2022 5:39 PM EDT) athologist Signature POC Glucose 173 65 - 199 [facility] mg/dL [facility] Comment: Supplemental ranges: <140 mg/dL before meals <180 mg/dL all other times of the day Specimen Anatomical Collection Method Collection Time Receive d Time (Source) Location / / Volume Laterality Blood 05/22/2022 5:39 PM 2 5:39 EDT PM EDT Hernán Mariscal MD POINT OF CARE TEST ORDERABLE S Performing Organization Address City/State/[place] [address] (ABNORMAL) POCT Glucose (05/22/2022 12:07 PM EDT) P athologist Signature POC Glucose 233 (H) 65 - 199 [facility] mg/dL [facility] Comment: Supplemental ranges: <140 mg/dL before meals <180 mg/dL all other times of the day Specimen Anatomical Collection Method Collection Time Receive d Time (Source) Location / / Volume Laterality Blood 05/22/2022 12:07 05/22/2022 PM EDT 12:07 PM EDT Hernán Mariscal MD POINT OF CARE TEST ORDERABLE S Performing Organization Address City/State/[place] [address] POCT Glucose (05/22/2022 8:04 AM EDT) P athologist Signature POC Glucose 112 65 - 199 [facility] mg/dL [facility] Comment: Supplemental ranges: <140 mg/dL before meals <180 mg/dL all other times of the day Specimen Anatomical Collection Method Collection Time Receive d Time (Source) Location / / Volume Laterality Blood 05/22/2022 8:04 AM 8:04 EDT AM EDT Hernán Mariscal MD POINT OF CARE TEST ORDERABLE S Performing Organization Address City/State/[place] [address] EKG 12 Lead (05/22/2022 6:31 AM EDT) Component Value Ref Range Test Analysis Performed Pathologis t Method Time At Signature Ventricular rate 57 BPM MUSE SYSTEM Atrial Rate 57 BPM MUSE SYSTEM P-R Interval 170 ms MUSE SYSTEM QRS Duration 94 ms MUSE SYSTEM Q-T Interval 454 ms MUSE SYSTEM QTC Calculated 441 ms MUSE SYSTEM (Bezet) Calculated P [place] 24 degrees MUSE SYSTEM Calculated R [place] 17 degrees MUSE SYSTEM Calculated T [place] 110 degrees MUSE SYSTEM INTERPRETATION Sinus bradycardia [...] AM 8:09 EDT AM EDT Mary Wray FOREST ENGINEER ECG ORDERABLES Performing Organization Address [facility] Phon e Number MUSE SYSTEM Amylase (05/22/2022 5:04 AM EDT) athologist Signature Amylase 44 28 - 100 [facility] LABORATORY Specimen Anatomical Collection Method Collection Time Receive d Time (Source) Location / / Volume Laterality Blood Venous Draw / 05/22/2022 5:04 AM 05/22/20 22 5:18 Unknown EDT AM EDT Resulting Agency Comment Spec In Lab Sharmin Che FOREST ENGINEER CHEMISTRY ORDERABLES Performing Organization Address [facility] [place] [address] Lipase (05/22/2022 5:04 AM EDT) P athologist Signature Lipase 22 0 - 60 [facility] LABORATORY Specimen Anatomical Collection Method Collection Time Receive d Time (Source) Location / / Volume Laterality Blood Venous Draw / 05/22/2022 5:04 AM 05/22/20 22 5:18 Unknown EDT AM EDT Resulting Agency Comment Spec In Lab Sharmin Aman Chinedu FOREST ENGINEER CHEMISTRY ORDERABLES Performing Organization Address City/[facility]/ZIP [facility] [place] [address] (ABNORMAL) Hepatic Function Panel (05/22/2022 5:04 AM EDT) Analysis Performed At Patho logist Time Signature Total Protein 6.6 6.1 - 8.0 [facility] g/dL [facility] Albumin 3.8 3.2 - 5.2 [facility] g/dL [facility] AST 31 (H) 0 - 30 [facility] unit/L [facility] ALT 29 0 - 30 [facility] unit/L [facility] Alk Phos 112 (H) 35 - 105 [facility] unit/L [facility] Total 0.2 0.2 - 1.3 [facility] Bilirubin mg/dL [facility] Bili, Direct Not Perf 0.0 - 0.3 [facility] mg/dL [facility] Comment: Specimen lipemic or turbid in a ppearance, unsuitable for analysis. Specimen Anatomical Collection Method Collection Time Receive d Time (Source) Location / / Volume Laterality Blood Venous Draw / 05/22/2022 5:04 AM 05/22/20 5:18 Unknown EDT AM EDT Resulting Agency Comment Spec In Lab Sharmin Che APRN CHEMISTRY ORDERABLES Performing Organization Address City/State/[place] [address] (ABNORMAL) Differential, Automated (05/22/2022 5:04 AM EDT) [facility] Method Time Signature Neutrophils % 38.5 % [facility] Neutr Abs (ANC) 2.68 1.70 - [facility] 6.10 [facility] x10(3)/[facility] LABORATORY Lymphocytes % 40.4 % [facility] Lymphocytes Abs 2.8 0.9 - 3.2 [facility] x10(3)/[facility] LABORATORY Monocytes % 11.2 % [facility] Monocyte Abs 0.8 0.3 - 0.9 [facility] x10(3)/[facility] LABORATORY Eosinophils % 8.9 % [facility] Eosinophils Abs 0.6 (H) 0.0 - 0.4 [facility] x10(3)/[facility] LABORATORY Basophils % 0.7 % [facility] Basophils Abs 0.0 0.0 - 0.1 [facility] x10(3)/[facility] LABORATORY Immature Gran % 0.30 % [facility] Comment: Immature granulocytes(IG's)percentage an d absolute count will include metamyelocytes, myelocytes, and promyelo cytes. Blood smears from CBCs yielding IG's will be scanned manually for concor danmariama. If this scan disagrees with the automated IG or if promyelocytes are not ed, a manual differential will be performed. Anaya Gran Abs 0.02 0.00 - 0.04 x10(3)/[facility] MAR Y [facility] Specimen Anatomical Collection Method Collection Time Receive d Time (Source) Location / / Volume Laterality Blood 05/22/2022 5:04 AM 5:14 EDT AM EDT Resulting Agency Comment Spec In Lab Mary Wray APRN HEMATOLOGY ORDERABLES Performing Organization Address City/State/ZIP Code Phon e Number [place] [id number] LAB[address]ORY Drive (ABNORMAL) Hemogram (05/22/2022 5:04 AM EDT) Analysis Performed At Patho logist Time Signature WBC 7.0 4.0 - 9.5 [facility] x10(3)/[facility] LABORATORY RBC 4.69 4.00 - [facility] 5.21 [facility] x10(6)/[facility] Hemoglobin 13.6 11.7 - [facility] 15.5 g/dL [facility] Hematocrit 41.1 35.7 - [facility].8 % [facility] MCV 87.6 82.6 - [facility] 94.4 [facility] MCH 29.0 27.1 - [facility] 32.0 pg [facility] MCHC 33.1 31.7 - [facility] 35.0 g/dL [facility] Platelets 314 145 - 357 [facility] x10(3)/[facility] RDWSD 47.2 (H) 37.0 - [facility] 46.0 [facility] RDWCV 14.6 (H) 11.5 - [facility].1 % [facility] MPV 10.1 7.6 - 12.[address] [facility] nRBC % Auto 0.0 % [facility] nRBC Abs Auto 0.000 0.000 - [facility] 0.000 [facility] x10(3)/[facility] LABORATORY Specimen Anatomical Collection Method Collection Time Receive d Time (Source) Location / / Volume Laterality Blood 05/22/2022 5:04 AM 2 5:14 EDT AM EDT Resulting Agency Comment Spec In Lab Mary Wray FOREST ENGINEER HEMATOLOGY ORDERABLES Performing Organization Address City/State/ZIP Code Phon e Number [address] Magnesium (05/22/2022 5:04 AM EDT) P athologist Signature Magnesium 1.03 0.69 - 1.07 [facility] mmol/L [facility] Specimen Anatomical Collection Method Collection Time Receive d Time (Source) Location / / Volume Laterality Blood 05/22/2022 5:04 AM 2 5:14 EDT AM EDT Resulting Agency Comment Spec In Lab Mary Wray APRN CHEMISTRY ORDERABLES Performing Organization Address City/State/ZIP Code Phon e Number [address] (ABNORMAL) BMP w/fasting Glucose (05/22/2022 5:04 AM EDT) P athologist Signature Glucose 138 (H) 65 - 99 [place] [place] Fasting mg/dL [facility] Comment: ?Fasting* Glucose Interpretive C riteria [...] of Diabetes Mellitus, Position Statement from the [place] [employer]. ??Diabete s Care, Volume 33, Supplement 1, Oct 2009 BUN 24 (H) 8 - 18 mg/dL [facility] Creatinine 0.84 0.70 - 1.20 mg/dL [facility] Sodium 138 135 - 145 mmol/L [facility] Potassium 4.5 3.5 - 5.0 mmol/L [facility] Comment: Please note: ??Patients with WBC >100,00 0 may have falsely elevated Potassium levels. ??For accurate Potassium quantif ication in these patients send serum separator tube (gold top) for subsequent determinations. ??Contact the Clinical Chemistry Laboratory if there are any qu estions. Chloride 103 98 - 107 mmol/L [facility] CO2 25 22 - 31 mmol/L [facility] Anion Gap 10 5 - 15 mmol/L [facility] Calcium 8.6 8.5 - 10.5 mg/dL [facility] Estimated GFR 87 >=60 mL/min/1.73 m?? [facility] Comment: This patient's estimated [...] Organization Address City/State/[place] [address] POCT Glucose (05/21/2022 7:34 PM EDT) athologist Signature POC Glucose 139 65 - 199 [facility] mg/dL [facility] Comment: Supplemental ranges: <140 mg/dL before meals <180 mg/dL all other times of the day Specimen Anatomical Collection Method Collection Time Receive d Time (Source) Location / / Volume Laterality Blood 05/21/2022 7:34 PM 2 7:34 EDT PM EDT Hernán Mariscal MD POINT OF CARE TEST ORDERABLE S Performing Organization Address City/State/ZIP Code Phon e Number [address] POCT Glucose (05/21/2022 4:37 PM EDT) athologist Signature POC Glucose 119 65 - 199 [facility] mg/dL [facility] Comment: Supplemental ranges: <140 mg/dL before meals <180 mg/dL all other times of the day Specimen Anatomical Collection Method Collection Time Receive d Time (Source) Location / / Volume Laterality Blood 05/21/2022 4:37 PM 2 4:37 EDT PM EDT Hernán Mariscal MD POINT OF CARE TEST ORDERABLE S Performing Organization Address City/State/[place] [address] POCT Glucose (05/21/2022 12:34 PM EDT) athologist Signature POC Glucose 151 65 - 199 [facility] [place] mg/dL [facility] Comment: Supplemental ranges: <140 mg/dL before meals <180 mg/dL all other times of the day Specimen Anatomical Collection Method Collection Time Receive d Time (Source) Location / / Volume Laterality Blood 05/21/2022 12:34 05/21/2022 PM EDT 12:34 PM EDT Hernán Mariscal MD POINT OF CARE TEST ORDERABLE S Performing Organization Address City/State/[place] [address] (ABNORMAL) POCT Glucose (05/21/2022 11:03 AM EDT) athologist Signature POC Glucose 225 (H) 65 - 199 [facility] mg/dL [facility] Comment: Supplemental ranges: <140 mg/dL before meals <180 mg/dL all other times of the day Specimen Anatomical Collection Method Collection Time Receive d Time (Source) Location / / Volume Laterality Blood 05/21/2022 11:03 05/21/2022 AM EDT 11:03 AM EDT Hernán Mariscal MD POINT OF CARE TEST ORDERABLE S Performing Organization Address City/State/[place] [address] (ABNORMAL) POCT Glucose (05/21/2022 9:48 AM EDT) athologist Signature POC Glucose 224 (H) 65 - 199 [facility] mg/dL [facility] Comment: Supplemental ranges: <140 mg/dL before meals <180 mg/dL all other times of the day Specimen Anatomical Collection Method Collection Time Receive d Time (Source) Location / / Volume Laterality Blood 05/21/2022 9:48 AM 2 9:48 EDT AM EDT Hernán Mariscal MD POINT OF CARE TEST ORDERABLE S Performing Organization Address City/State/[place] [address] POCT Glucose (05/21/2022 7:42 AM EDT) athologist Signature POC Glucose 162 65 - 199 [facility] mg/dL [facility] Comment: Supplemental ranges: <140 mg/dL before meals <180 mg/dL all other times of the day Specimen Anatomical Collection Method Collection Time Receive d Time (Source) Location / / Volume Laterality Blood 05/21/2022 7:42 AM 2 7:42 EDT AM EDT Hernán Mariscal MD POINT OF CARE TEST ORDERABLE S Performing Organization Address City/State/[place] [address] EKG 12 Lead (05/21/2022 6:45 AM EDT) Component Value Ref Range Test Analysis Performed Pathologis t Method Time At Signature Ventricular rate 61 BPM MUSE SYSTEM Atrial Rate 61 BPM MUSE SYSTEM P-R Interval 170 ms MUSE SYSTEM QRS Duration 98 ms MUSE SYSTEM Q-T Interval 434 ms MUSE SYSTEM QTC Calculated 436 ms MUSE SYSTEM (Bezet) Calculated P [place] 44 degrees MUSE SYSTEM Calculated R [place] 82 degrees MUSE SYSTEM Calculated T [place] 101 degrees MUSE SYSTEM INTERPRETATION Normal sinus rhythm MUSE SYSTEM Anterolateral infarct (cited on or before 20-MAY-2022) T wave abnormality, consider lateral ischemia Abnormal ECG When compared with ECG of 20-MAY-2022 05:39, Questionable change in initial forces of Anterolateral leads Confirmed by MD Chrystal, Fabricio Felix ([id number]) on 05/23/2022 1 0:25:58 AM Specimen Anatomical Collection Method Collection Time Receive d Time (Source) Location / / Volume Laterality 05/21/2022 6:45 AM 2 EDT 10:25 AM EDT Mary Wray APRN ECG ORDERABLES Performing Organization Address City/State/ZIP Code Phon e Number MUSE SYSTEM POCT Glucose (05/21/2022 4:53 AM EDT) athologist Signature POC Glucose 126 65 - 199 [facility] mg/dL [facility] Comment: Supplemental ranges: <140 mg/dL before meals <180 mg/dL all other times of the day Specimen Anatomical Collection Method Collection Time Receive d Time (Source) Location / / Volume Laterality Blood 05/21/2022 4:53 AM 2 4:53 EDT AM EDT Hernán Mariscal MD POINT OF CARE TEST ORDERABLE S Performing Organization Address City/State/[place] [address] (ABNORMAL) Differential, Automated (05/21/2022 3:50 AM EDT) Patholo gist Method Time Signature Neutrophils % 37.8 % [facility] Neutr Abs (ANC) 3.32 1.70 - [facility] 6.10 [facility] x10(3)/[facility] LABORATORY Lymphocytes % 42.4 % [facility] Lymphocytes Abs 3.7 (H) 0.9 - 3.2 [facility] x10(3)/[facility] LABORATORY Monocytes % 10.3 % [facility] Monocyte Abs 0.9 0.3 - 0.9 [facility] [facility] x10(3)/[facility] LABORATORY Eosinophils % 8.7 % [facility] LABORATORY Eosinophils Abs 0.8 (H) 0.0 - 0.4 [facility] x10(3)/[facility] LABORATORY Basophils % 0.6 % [facility] LABORATORY Basophils Abs 0.0 0.0 - 0.1 [facility] x10(3)/[facility] LABORATORY Immature Gran % 0.20 % [facility] LABORATORY Comment: Immature granulocytes(IG's)percentage an d absolute count will include metamyelocytes, myelocytes, and promyelo cytes. Blood smears from CBCs yielding IG's will be scanned manually for concor dance. If this scan disagrees with the automated IG or if promyelocytes are not ed, a manual differential will be performed. Anaya Gran Abs 0.02 0.00 - 0.04 x10(3)/[facility] LABORATORY Specimen Anatomical Collection Method Collection Time Receive d Time (Source) Location / / Volume Laterality Blood 05/21/2022 3:50 AM 4:13 EDT AM EDT Resulting Agency Comment Spec In Lab Mary Wray FOREST ENGINEER HEMATOLOGY ORDERABLES Performing Organization Address City/State/[place] [address] (ABNORMAL) Hemogram (05/21/2022 3:50 AM EDT) Analysis Performed At Patho logist Time Signature WBC 8.8 4.0 - 9.5 [facility] x10(3)/[facility] LABORATORY RBC 4.83 4.00 - [facility] 5.21 [facility] x10(6)/[facility] LABORATORY Hemoglobin 13.8 11.7 - [facility] 15.[facility] g/dL [facility] LABORATORY Hematocrit 42.9 35.7 - [facility] LABORATORY MCV 88.8 82.6 - [facility] 94.4 [facility] LABORATORY MCH 28.6 27.1 - [place] [facility] 32.[address] [facility] LABORATORY MCHC 32.2 31.7 - [place] [facility] 35.0 g/dL [facility] LABORATORY Platelets 318 145 - 357 [place] [facility] x10(3)/[facility] LABORATORY RDWSD 48.4 (H) 37.0 - [place] [facility] 46.0 [facility] LABORATORY RDWCV 14.6 (H) 11.5 - [place] [facility] 14.1 % [facility] LABORATORY MPV 10.2 7.6 - 12.9 [place] [facility] LABORATORY nRBC % Auto 0.0 % [facility] LABORATORY nRBC Abs Auto 0.000 0.000 - [place] [facility] 0.000 [facility] x10(3)/[facility] LABORATORY Specimen Anatomical Collection Method Collection Time Receive d Time (Source) Location / / Volume Laterality Blood 05/21/2022 3:50 AM 2 4:13 EDT AM EDT Resulting Agency Comment Spec In Lab Mary Wray APRN HEMATOLOGY ORDERABLES Performing Organization Address City/[facility]/[place] [address] Magnesium (05/21/2022 3:50 AM EDT) P athologist Signature Magnesium 0.96 0.69 - 1.07 [facility] mmol/L [facility] LABORATORY Specimen Anatomical Collection Method Collection Time Receive d Time (Source) Location / / Volume Laterality Blood 05/21/2022 3:50 AM 2 4:13 EDT AM EDT Resulting Agency Comment Spec In Lab Mary Wray APRN CHEMISTRY ORDERABLES Performing Organization Address City/[facility]/[place] [address] (ABNORMAL) BMP w/fasting Glucose (05/21/2022 3:50 AM EDT) P athologist Signature Glucose 139 (H) 65 - 99 [facility] Fasting mg/dL [facility] LABORATORY Comment: ?Fasting* Glucose Interpretive C riteria [...] of Diabetes Mellitus, Position Statement from the [place] [employer]. ??Diabete s Care, Volume 33, Supplement 1, Oct 2009 BUN 25 (H) 8 - 18 mg/dL [facility] LABORATORY Creatinine 0.85 0.70 - 1.20 mg/dL [facility] LABORATORY Sodium 139 135 - 145 mmol/L [facility] LABORATORY Potassium 4.9 3.5 - 5.0 mmol/L [facility] LABORATORY Comment: Please note: ??Patients with WBC >100,00 0 may have falsely elevated Potassium levels. ??For accurate Potassium quantif ication in these patients send serum separator tube (gold top) for subsequent determinations. ??Contact the Clinical Chemistry Laboratory if there are any qu estions. Chloride 102 98 - 107 mmol/L [facility] LABORATORY CO2 27 22 - 31 mmol/L [facility] LABORATORY Anion Gap 10 5 - 15 mmol/L [facility] LABORATORY Calcium 8.9 8.5 - 10.5 mg/dL [facility] LABORATORY Estimated GFR 86 >=60 mL/min/1.73 m?? [facility] LABORATORY Comment: This patient's estimated [...] Organization Address City/State/ZIP Code Phon e Number [address] POCT Glucose (05/20/2022 11:31 PM EDT) athologist Signature POC Glucose 107 65 - 199 [place] mg/dL [facility] LABORATORY Comment: Supplemental ranges: <140 mg/dL before meals <180 mg/dL all other times of the day Specimen Anatomical Collection Method Collection Time Receive d Time (Source) Location / / Volume Laterality Blood 05/20/2022 11:31 05/20/2022 PM EDT 11:31 PM EDT Hernán Mariscal MD POINT OF CARE TEST ORDERABLE S Performing Organization Address City/State/ZIP Code Phon e Number [address] POCT Glucose (05/20/2022 8:35 PM EDT) athologist Signature POC Glucose 91 65 - 199 [place] mg/dL [facility] LABORATORY Comment: Supplemental ranges: <140 mg/dL before meals <180 mg/dL all other times of the day Specimen Anatomical Collection Method Collection Time Receive d Time (Source) Location / / Volume Laterality Blood 05/20/2022 8:35 PM 2 8:35 EDT PM EDT Hernán Mariscal MD POINT OF CARE TEST ORDERABLE S Performing Organization Address City/State/ZIP Code Phon e Number [address] POCT Glucose (05/20/2022 4:24 PM EDT) athologist Signature POC Glucose 93 65 - 199 [place] mg/dL [facility] LABORATORY Comment: Supplemental ranges: <140 mg/dL before meals <180 mg/dL all other times of the day Specimen Anatomical Collection Method Collection Time Receive d Time (Source) Location / / Volume Laterality Blood 05/20/2022 4:24 PM 2 4:24 EDT PM EDT Hernán Mariscal MD POINT OF CARE TEST ORDERABLE S Performing Organization Address City/State/[place] [address] POCT Glucose (05/20/2022 11:27 AM EDT) P athologist Signature POC Glucose 144 65 - 199 [facility] mg[facility]dL [facility] LABORATORY Comment: Supplemental ranges: <140 mg/dL before meals <180 mg/dL all other times of the day Specimen Anatomical Collection Method Collection Time Receive d Time (Source) Location / / Volume Laterality Blood 05/20/2022 11:27 05/20/2022 AM EDT 11:27 AM EDT Hernán Mariscal MD POINT OF CARE TEST ORDERABLE S Performing Organization Address City/State/[place] [address] (ABNORMAL) POCT Glucose (05/20/2022 7:30 AM EDT) P athologist Signature POC Glucose 233 (H) 65 - 199 [facility] mg/dL [facility] LABORATORY Comment: Supplemental ranges: <140 mg/dL before meals <180 mg/dL all other times of the day Specimen Anatomical Collection Method Collection Time Receive d Time (Source) Location / / Volume Laterality Blood 05/20/2022 7:30 AM 7:30 EDT AM EDT Hernán Mariscal MD POINT OF CARE TEST ORDERABLE S Performing Organization Address City/State/ZIP Code Phon e Number [address] EKG 12 Lead (05/20/2022 5:39 AM EDT) Component Value Ref Range Test Analysis Performed Pathologis t Method Time At Signature Ventricular rate 66 BPM MUSE SYSTEM Atrial Rate 66 BPM MUSE SYSTEM P-R Interval 170 ms MUSE SYSTEM QRS Duration 90 ms MUSE SYSTEM Q-T Interval 416 ms MUSE SYSTEM QTC Calculated 436 ms MUSE SYSTEM (Bezet) Calculated P [place] 36 degrees MUSE SYSTEM Calculated R [place] 23 degrees MUSE SYSTEM Calculated T [place] 95 degrees MUSE SYSTEM INTERPRETATION Normal sinus rhythm MUSE SYSTEM Septal infarct (cited on or before Nonspecific T wave abnormality Abnormal ECG When compared with ECG of 19-MAY-2022 23:33, No significant change was found I personally reviewed the tracing and edited the fellows int erpretation Confirmed by fellow MD Eulogio, Gita ([id number]) on 05/20/2022 7:30:32 AM Confirmed by MD Jose, Yumi ([id number]) on 05/20/2022 8:26:34 AM Specimen Anatomical Collection Method Collection Time Receive d Time (Source) Location / / Volume Laterality 05/20/2022 5:39 AM 2 8:26 EDT AM EDT Maryrosa Wray FOREST ENGINEER ECG ORDERABLES Performing Organization Address City/[facility]/ZIP Code Phon e Number MUSE SYSTEM POCT Glucose (05/20/2022 4:31 AM EDT) athologist Signature POC Glucose 186 65 - 199 [facility] mg/dL [facility] LABORATORY Comment: Supplemental ranges: <140 mg/dL before meals <180 mg/dL all other times of the day Specimen Anatomical Collection Method Collection Time Receive d Time (Source) Location / / Volume Laterality Blood 05/20/2022 4:31 AM 2 4:31 EDT AM EDT Tameka Chu MD POINT OF CARE TEST ORDERAB LES Performing Organization Address City/State/[place] [address] (ABNORMAL) Differential, Automated (05/20/2022 3:40 AM EDT) Patholo gist Method Time Signature Neutrophils % 40.8 % [facility] LABORATORY Neutr Abs (ANC) 3.03 1.70 - [facility] 6.10 [facility] x10(3)/[facility] LABORATORY Lymphocytes % 42.5 % [facility] LABORATORY Lymphocytes Abs 3.2 0.9 - 3.2 [facility] x10(3)/[facility] LABORATORY Monocytes % 8.9 % [facility] LABORATORY Monocyte Abs 0.7 0.3 - 0.9 [facility] x10(3)/[facility] LABORATORY Eosinophils % 7.0 % [facility] LABORATORY Eosinophils Abs 0.5 (H) 0.0 - 0.4 [facility] x10(3)/[facility] LABORATORY Basophils % 0.5 % [facility] LABORATORY Basophils Abs 0.0 0.0 - 0.1 [facility] x10(3)/[facility] LABORATORY Immature Gran % 0.30 % [facility] LABORATORY Comment: Immature granulocytes(IG's)percentage an d absolute count will include metamyelocytes, myelocytes, and promyelo cytes. Blood smears from CBCs yielding IG's will be scanned manually for concor dance. If this scan disagrees with the automated IG or if promyelocytes are not ed, a manual differential will be performed. Anaya Gran Abs 0.02 0.00 - 0.04 x10(3)/[facility] LABORATORY Specimen Anatomical Collection Method Collection Time Receive d Time (Source) Location / / Volume Laterality Blood 05/20/2022 3:40 AM 4:03 EDT AM EDT Resulting Agency Comment Spec In Lab Mary Wray APRN HEMATOLOGY ORDERABLES Performing Organization Address City/State/[place] [address] (ABNORMAL) Hemogram (05/20/2022 3:40 AM EDT) Analysis Performed At Patho logist Time Signature WBC 7.4 4.0 - 9.5 [facility] x10(3)/[facility] LABORATORY RBC 4.88 4.00 - [facility] 5.21 [facility] x10(6)/[facility] LABORATORY Hemoglobin 13.9 11.7 - [facility] 15.5 g/dL [facility] LABORATORY Hematocrit 43.7 35.7 - [facility] LABORATORY MCV 89.5 82.6 - [facility] 94.[address] [facility] LABORATORY MCH 28.5 27.1 - [facility] 32.0 pg [facility] MCHC 31.8 31.7 - [place] [facility] 35.0 g/dL [facility] LABORATORY Platelets 295 145 - 357 [place] [facility] x10(3)/[facility] LABORATORY RDWSD 49.1 (H) 37.0 - [place] [facility] 46.0 [facility] LABORATORY RDWCV 14.9 (H) 11.5 - [facility] 14.1 % [facility] LABORATORY MPV 10.1 7.6 - 12.9 [place] [facility] LABORATORY nRBC % Auto 0.0 % [facility] LABORATORY nRBC Abs Auto 0.000 0.000 - [place] [facility] 0.000 [facility] x10(3)/[facility] LABORATORY Specimen Anatomical Collection Method Collection Time Receive d Time (Source) Location / / Volume Laterality Blood 05/20/2022 3:40 AM 2 4:03 EDT AM EDT Resulting Agency Comment Spec In Lab Mary Wray APRN HEMATOLOGY ORDERABLES Performing Organization Address City/[facility]/[place] [address] (ABNORMAL) Magnesium (05/20/2022 3:40 AM EDT) P athologist Signature Magnesium 1.09 (H) 0.69 - 1.07 [facility]/L [facility] LABORATORY Specimen Anatomical Collection Method Collection Time Receive d Time (Source) Location / / Volume Laterality Blood 05/20/2022 3:40 AM 2 4:03 EDT AM EDT Resulting Agency Comment Spec In Lab Mary Wray APRN CHEMISTRY ORDERABLES Performing Organization Address City/State/[place] [address] (ABNORMAL) BMP w/fasting Glucose (05/20/2022 3:40 AM EDT) P athologist Signature Glucose 152 (H) 65 - 99 [facility] Fasting mg/dL [facility] LABORATORY Comment: ?Fasting* Glucose Interpretive C riteria [...] of Diabetes Mellitus, Position Statement from the [place] [employer]. ??Diabete s Care, Volume 33, Supplement 1, Oct 2009 BUN 25 (H) 8 - 18 mg/dL [facility] LABORATORY Creatinine 0.77 0.70 - 1.20 mg/dL [facility] LABORATORY Sodium 142 135 - 145 mmol/L [facility] LABORATORY Potassium 5.5 (H) 3.5 - 5.0 mmol/L [facility] LABORATORY Comment: Please note: ??Patients with WBC >100,00 0 may have falsely elevated Potassium levels. ??For accurate Potassium quantif ication in these patients send serum separator tube (gold top) for subsequent determinations. ??Contact the Clinical Chemistry Laboratory if there are any qu estions. Chloride 107 98 - 107 mmol/L [facility] LABORATORY CO2 28 22 - 31 mmol/L [facility] LABORATORY Anion Gap 7 5 - 15 mmol/L [facility] LABORATORY Calcium 9.0 8.5 - 10.5 mg/dL [facility] LABORATORY Estimated GFR 96 >=60 mL/min/1.73 m?? [facility] LABORATORY Comment: This patient's estimated [...] Agency Comment Spec In Lab Mary Wray FOREST ENGINEER CHEMISTRY ORDERABLES Performing Organization Address City/[facility]/[place] [address] POCT Glucose (05/20/2022 3:27 AM EDT) P athologist Signature POC Glucose 165 65 - 199 [place] mg/dL [facility] LABORATORY Comment: Supplemental ranges: <140 mg/dL before meals <180 mg/dL all other times of the day Specimen Anatomical Collection Method Collection Time Receive d Time (Source) Location / / Volume Laterality Blood 05/20/2022 3:27 AM 2 3:27 EDT AM EDT Tameka Chu MD POINT OF CARE TEST ORDERAB LES Performing Organization Address City/[facility]/[place] [address] POCT Glucose (05/20/2022 12:25 AM EDT) P athologist Signature POC Glucose 137 65 - 199 [place] mg/dL [facility] LABORATORY Comment: Supplemental ranges: <140 mg/dL before meals <180 mg/dL all other times of the day Specimen Anatomical Collection Method Collection Time Receive d Time (Source) Location / / Volume Laterality Blood 05/20/2022 12:25 05/20/2022 AM EDT 12:25 AM EDT Tameka Chu MD POINT OF CARE TEST ORDERAB LES Performing Organization Address City/[facility]/[place] [address] EKG 12 Lead (05/19/2022 11:33 PM EDT) Component Value Ref Range Test Analysis Performed Pathologis t Method Time At Signature Ventricular rate 66 BPM MUSE SYSTEM Atrial Rate 66 BPM MUSE SYSTEM P-R Interval 162 ms MUSE SYSTEM QRS Duration 90 ms MUSE SYSTEM Q-T Interval 396 ms MUSE SYSTEM QTC Calculated 415 ms MUSE SYSTEM (Bezet) Calculated P [place] 44 degrees MUSE SYSTEM Calculated R [place] 59 degrees MUSE SYSTEM Calculated T [place] 103 degrees MUSE SYSTEM INTERPRETATION Normal sinus rhythm MUSE SYSTEM Poor R wave progression T wave abnormality Lateral leads Abnormal ECG When compared with ECG of 19-MAY-2022 05:59, No significant change was found I personally reviewed the tracing and edited the fellows int erpretation Confirmed by fellow MD Eulogio, Gita ([id number]) on 05/20/2022 9:02:34 AM Confirmed by MD [...] Signature POC Glucose 145 65 - 199 [facility] mg/dL [facility] LABORATORY Comment: Supplemental ranges: <140 mg/dL before meals <180 mg/dL all other times of the day Specimen Anatomical Collection Method Collection Time Receive d Time (Source) Location / / Volume Laterality Blood 05/19/2022 8:35 PM 2 8:35 EDT PM EDT Tameka Chu MD POINT OF CARE TEST ORDERAB LES Performing Organization Address City/State/[place] [address] POCT Glucose (05/19/2022 6:07 PM EDT) athologist Signature POC Glucose 130 65 - 199 [facility] mg[facility]dL [facility] LAB[facility]ATORY Comment: Supplemental ranges: <140 mg/dL before meals <180 mg/dL all other times of the day Specimen Anatomical Collection Method Collection Time Receive d Time (Source) Location / / Volume Laterality Blood 05/19/2022 6:07 PM 2 6:07 EDT PM EDT Tameka Chu MD POINT OF CARE TEST ORDERAB LES Performing Organization Address City/[facility]/ZIP Code Phon e Number [address] POCT Glucose (05/19/2022 12:41 PM EDT) P athologist Signature POC Glucose 144 65 - 199 [facility] mg/dL [facility] LABORATORY Comment: Supplemental ranges: <140 mg/dL before meals <180 mg/dL all other times of the day Specimen Anatomical Collection Method Collection Time Receive d Time (Source) Location / / Volume Laterality Blood 05/19/2022 12:41 05/19/2022 PM EDT 12:41 PM EDT Tameka Chu MD POINT OF CARE TEST ORDERAB LES Performing Organization Address City/[facility]/[place] [address] CARDIAC CATHETERIZATION (05/19/2022 10:17 AM EDT) Anatomical Region Laterality Modality Other Specimen (Source) Anatomical Location Collection Method / Collectio n Time Received Time / Laterality Volume Narrative 05/19/2022 10:29 AM EDT ?[facility] ? Cardiac Cathete rization/Intervention Report ? Patient Name: Sho, Aracelis ? Procedure Date: 05/19/2022 ? A #: [id number] ? Primary Physician: Khalida Otero I ? Case #: [id number] ? File Name: [id number] ? Catheterization Order Number: [id number] ? [facility] ? Final Report [place], [place] ? Patient Name: ? Aracelis Sho ? ID#: ?[id number] ? : ?1975 ? Procedure Date: ? May 19, 2022 ?Case #: ? [id number] ? Room: ? 1 ? Case Physician: [...] was Urgent. The indication for ?the laborer electroplating visit is cardiomyo julian. Chest pain symptom [...] Glucose 235 (H) 65 - 199 [place] mg/dL [facility] LABORATORY Comment: Supplemental ranges: <140 mg/dL before meals <180 mg/dL all other times of the day Specimen Anatomical Collection Method Collection Time Receive d Time (Source) Location / / Volume Laterality Blood 05/19/2022 7:31 AM 7:31 EDT AM EDT Tameka Chu MD POINT OF CARE TEST ORDERAB LES Performing Organization Address City/[facility]/[place] [address] EKG 12 Lead (05/19/2022 5:59 AM EDT) Component Value Ref Range Test Analysis Performed Pathologis t Method Time At Signature Ventricular rate 74 BPM MUSE SYSTEM Atrial Rate 74 BPM MUSE SYSTEM P-R Interval 170 ms MUSE SYSTEM QRS Duration 92 ms MUSE SYSTEM Q-T Interval 422 ms MUSE SYSTEM QTC Calculated 468 ms MUSE SYSTEM (Bezet) Calculated P [place] 35 degrees MUSE SYSTEM Calculated R [place] 58 degrees MUSE SYSTEM Calculated T [place] 96 degrees MUSE SYSTEM INTERPRETATION Normal sinus rhythm MUSE SYSTEM Septal infarct (cited on or before 18-MAY-2022) ST & T wave abnormality, consider anterolateral ischemia Abnormal ECG When compared with ECG of 18-MAY-2022 19:05, (unconfirmed) Nonspecific T wave abnormality now evident in Anterior leads I personally reviewed the tracing and edited the fellows int erpretation Confirmed by fellow MD Eulogio, Gita ([id number]) on 05/19/2022 7:24:01 PM Confirmed by MD Jose, Yumi ([id number]) on 05/20/2022 8:25:01 AM Specimen Anatomical Collection Method Collection Time Receive d Time (Source) Location / / Volume Laterality 05/19/2022 5:59 AM 8:25 EDT AM EDT Mary Wray APRN ECG ORDERABLES Performing Organization Address City/[facility]/ZIP Code Phon e Number MUSE SYSTEM (ABNORMAL) POCT Glucose (05/19/2022 4:10 AM EDT) P athologist Signature POC Glucose 250 (H) 65 - 199 [facility] mg/dL [facility] LABORATORY Comment: Supplemental ranges: <140 mg/dL before meals <180 mg/dL all other times of the day Specimen Anatomical Collection Method Collection Time Receive d Time (Source) Location / / Volume Laterality Blood 05/19/2022 4:10 AM 2 4:10 EDT AM EDT Tameka Chu MD POINT OF CARE TEST ORDERAB LES Performing Organization Address City/[facility]/[place] [address] (ABNORMAL) Differential, Automated (05/19/2022 3:33 AM EDT) Patholo gist Method Time Signature Neutrophils % 44.3 % [facility] LABORATORY Neutr Abs (ANC) 3.06 1.70 - [facility] 6.10 [facility] x10(3)/[facility] LABORATORY Lymphocytes % 39.4 % [facility] LABORATORY Lymphocytes Abs 2.7 0.9 - 3.2 [facility] x10(3)/[facility] LABORATORY Monocytes % 8.4 % [facility] LABORATORY Monocyte Abs 0.6 0.3 - 0.9 [facility] x10(3)/[facility] LABORATORY Eosinophils % 7.4 % [facility] LABORATORY Eosinophils Abs 0.5 (H) 0.0 - 0.4 [facility] x10(3)/[facility] LABORATORY Basophils % 0.4 % [facility] LABORATORY Basophils Abs 0.0 0.0 - 0.1 [facility] x10(3)/[facility] LABORATORY Immature Gran % 0.10 % [facility] LABORATORY Comment: Immature granulocytes(IG's)percentage an d absolute count will include metamyelocytes, myelocytes, and promyelo cytes. Blood smears from CBCs yielding IG's will be scanned manually for concor dance. If this scan disagrees with the automated IG or if promyelocytes are not ed, a manual differential will be performed. Anaya Gran Abs 0.01 0.00 - 0.04 x10(3)/[facility] LABORATORY Specimen Anatomical Collection Method Collection Time Receive d Time (Source) Location / / Volume Laterality Blood 05/19/2022 3:33 AM 4:03 EDT AM EDT Resulting Agency Comment Spec In Lab Mary Wray APRN HEMATOLOGY ORDERABLES Performing Organization Address City/State/[place] [address] (ABNORMAL) Hemogram (05/19/2022 3:33 AM EDT) Analysis Performed At Path logist Time Signature WBC 6.9 4.0 - 9.5 [place] x10(3)/[facility] LABORATORY RBC 4.70 4.00 - [facility] 5.21 [facility] x10(6)/[facility] LABORATORY Hemoglobin 13.9 11.7 - [place] 15.5 g/dL [facility] LABORATORY Hematocrit 42.7 35.7 - [facility] LABORATORY MCV 90.9 82.6 - [facility] 94.4 [facility] [facility] LABORATORY MCH 29.6 27.1 - IMGUEL WHEATSANCHEZ 32.[address] [facility] LABORATORY MCHC 32.6 31.7 - MIGUEL WHEATSANCHEZ 35.0 g/dL [facility] LABORATORY Platelets 300 145 - 357 [facility] x10(3)/[facility] LABORATORY RDWSD 49.9 (H) 37.0 - [facility] SANCHEZ 46.0 [facility] LABORATORY RDWCV 15.0 (H) 11.5 - [facility] LABORATORY MPV 10.2 7.6 - 12.9 [facility] LABORATORY nRBC % Auto 0.0 % [facility] LABORATORY nRBC Abs Auto 0.000 0.000 - [facility] 0.000 [facility] x10(3)/[facility] LABORATORY Specimen Anatomical Collection Method Collection Time Receive d Time (Source) Location / / Volume Laterality Blood 05/19/2022 3:33 AM 2 4:03 EDT AM EDT Resulting Agency Comment Spec In Lab Mary Wray APRN HEMATOLOGY ORDERABLES Performing Organization Address City/State/[place] [address] (ABNORMAL) Magnesium (05/19/2022 3:33 AM EDT) P athologist Signature Magnesium 1.17 (H) 0.69 - 1.07 [facility] mmol/L [facility] LABORATORY Specimen Anatomical Collection Method Collection Time Receive d Time (Source) Location / / Volume Laterality Blood 05/19/2022 3:33 AM 2 4:03 EDT AM EDT Resulting Agency Comment Spec In Lab Mary Wray APRN CHEMISTRY ORDERABLES Performing Organization Address City/State/[place] [address] (ABNORMAL) BMP w/fasting Glucose (05/19/2022 3:33 AM EDT) P athologist Signature Glucose 268 (H) 65 - 99 [facility] Fasting mg/dL [facility] LABORATORY Comment: ?Fasting* Glucose Interpretive C riteria [...] of Diabetes Mellitus, Position Statement from the [place] [employer]. ??Diabete s Care, Volume 33, Supplement 1, Oct 2009 BUN 19 (H) 8 - 18 mg/dL [facility] LABORATORY Creatinine 0.83 0.70 - 1.20 mg/dL [facility] LABORATORY Sodium 142 135 - 145 mmol/L [facility] LABORATORY Comment: result rechecked-[place] Potassium 4.8 3.5 - 5.0 mmol/L [facility] LABORATORY Comment: result rechecked-KS Please note: ??Patients with WBC >100,00 0 may have falsely elevated Potassium levels. ??For accurate Potassium quantif ication in these patients send serum separator tube (gold top) for subsequent determinations. ??Contact the Clinical Chemistry Laboratory if there are any qu estions. Chloride 106 98 - 107 mmol/L [facility] LABORATORY Comment: result rechecked-[place] CO2 29 22 - 31 mmol/L [facility] LABORATORY Anion Gap 7 5 - 15 mmol/L [facility] LABORATORY Calcium 8.5 8.5 - 10.5 mg/dL [facility] LABORATORY Estimated GFR 88 >=60 mL/min/1.73 m?? [facility] LABORATORY Comment: This patient's estimated [...] Wray APRN CHEMISTRY ORDERABLES Performing Organization Address City/[facility]/[place] [address] POCT Glucose (05/19/2022 12:15 AM EDT) P athologist Signature POC Glucose 147 65 - 199 [facility] mg/dL [facility] LABORATORY Comment: Supplemental ranges: <140 mg/dL before meals <180 mg/dL all other times of the day Specimen Anatomical Collection Method Collection Time Receive d Time (Source) Location / / Volume Laterality Blood 05/19/2022 12:15 05/19/2022 AM EDT 12:15 AM EDT Tameka Chu MD POINT OF CARE TEST ORDERAB LES Performing Organization Address City/State/[place] [address] SCAN DOC: MANAGER SYSTEMS (05/19/2022 12:00 AM EDT) Anatomical Region Laterality Modality Other Narrative 05/19/2022 12:00 AM EDT This result has an attachment that is no t available. Ordered by an unspecified provider. Scanning Provider MEDIA MGR SCAN EXT ORDR/RSLT POCT Glucose (05/18/2022 8:21 PM EDT) athologist Signature POC Glucose 184 65 - 199 [facility] mg/dL [facility] LABORATORY Comment: Supplemental ranges: <140 mg/dL before meals <180 mg/dL all other times of the day Specimen Anatomical Collection Method Collection Time Receive d Time (Source) Location / / Volume Laterality Blood 05/18/2022 8:21 PM 2 8:21 EDT PM EDT Tameka Chu MD POINT OF CARE TEST ORDERAB LES Performing Organization Address City/[facility]/ZIP Code Phon e Number [address] POCT Glucose (05/18/2022 4:04 PM EDT) athologist Signature POC Glucose 99 65 - 199 [facility] mg/dL [facility] LABORATORY Comment: Supplemental ranges: <140 mg/dL before meals <180 mg/dL all other times of the day Specimen Anatomical Collection Method Collection Time Receive d Time (Source) Location / / Volume Laterality Blood 05/18/2022 4:04 PM 2 4:04 EDT PM EDT Tameka Chu MD POINT OF CARE TEST ORDERAB LES Performing Organization Address City/[facility]/[place] [address] EKG 12 Lead (05/18/2022 3:40 PM EDT) Component Value Ref Range Test Analysis Performed Pathologis t Method Time At Signature Ventricular rate 65 BPM MUSE SYSTEM Atrial Rate 65 BPM MUSE SYSTEM P-R Interval 164 ms MUSE SYSTEM QRS Duration 90 ms MUSE SYSTEM Q-T Interval 402 ms MUSE SYSTEM QTC Calculated 418 ms MUSE SYSTEM (Bezet) Calculated P [place] 34 degrees MUSE SYSTEM Calculated R [place] 42 degrees MUSE SYSTEM Calculated T [place] 105 degrees MUSE SYSTEM INTERPRETATION Normal sinus rhythm MUSE SYSTEM Anteroseptal infarct (cited on or before 18-MAY-2022) Possible Lateral infarct , age undetermined Abnormal ECG When compared with ECG of 18-MAY-2022 04:40, Borderline criteria for Lateral infarct are now Present Nonspecific T wave abnormality, worse in Lateral leads Confirmed by MD Jose, Yumi ([id number]) on 05/19/2022 7:34:15 AM Specimen Anatomical Collection Method Collection Time Receive d Time (Source) Location / / Volume Laterality 05/18/2022 3:40 PM 7:34 EDT AM EDT Mary Wray FOREST ENGINEER ECG ORDERABLES Performing Organization Address City/State/ZIP Code [...] collapsed. Electronically signed by: Marc Rivera, Radiology [place] ([phone]), at 3:07 PM Thank you for letting us participate in the care of this patient. If you are a [facility] er and have any questions regarding this report, please contact the number above. For patients who have ques tions, please contact the [facility] professio nal that requested your imaging first. ?Billie Juan, Sect ion Chief Electronically Signed Final Report ?? 03:13 pm Narrative 05/18/2022 3:13 PM EDT Abdominal ? (Signed Final 05/18/2022 03:13 pm) PATIENT INFO: ID #: ? [id number] ?: ??[birth year] (46 yrs)(F) Name: ? ARACELIS SHO ? Visit Date: 05/18/2022 02:50 pm PERFORMED BY: Performed By: ? Aubrey Lopez RDMS Attending: ?Drake OROPEZA, Billie Soto Referred By: ?PATY BUENO Location: ? [place] SERVICE(S) PROVIDED: UABDLIM - Abdominal Limited Survey Sing le ? [id number] Organ or Quadrant - [id number] URETRO - Retroperiteneal Complete - IMG 3517 ? [id number] INDICATIONS: RUQ pain, r/o cholelithiasis/cholecysti its, Add [...] Finding Paty Bueno MD IMG GEN ORDERABLES POCT Glucose (05/18/2022 11:16 AM EDT) athologist Signature POC Glucose 152 65 - 199 [place] SANCHEZ mg/dL [facility] LABORATORY Comment: Supplemental ranges: <140 mg/dL before meals <180 mg/dL all other times of the day Specimen Anatomical Collection Method Collection Time Receive d Time (Source) Location / / Volume Laterality Blood 05/18/2022 11:16 05/18/2022 AM EDT 11:16 AM EDT Tameka Chu MD POINT OF CARE TEST ORDERAB LES Performing Organization Address City/State/[place] [address] (ABNORMAL) POCT Glucose (05/18/2022 8:02 AM EDT) athologist Signature POC Glucose 235 (H) 65 - 199 [place]EL [place]HEZ mg/dL [facility] LABORATORY Comment: Supplemental ranges: <140 mg/dL before meals <180 mg/dL all other times of the day Specimen Anatomical Collection Method Collection Time Receive d Time (Source) Location / / Volume Laterality Blood 05/18/2022 8:02 AM 2 8:02 EDT AM EDT Tameka Chu MD POINT OF CARE TEST ORDERAB LES Performing Organization Address City/[facility]/[place] [address] POCT Glucose (05/18/2022 6:34 AM EDT) athologist Signature POC Glucose 191 65 - 199 [place] SANCHEZ mg/dL [facility] LABORATORY Comment: Supplemental ranges: <140 mg/dL before meals <180 mg/dL all other times of the day Specimen Anatomical Collection Method Collection Time Receive d Time (Source) Location / / Volume Laterality Blood 05/18/2022 6:34 AM 2 6:34 EDT AM EDT Tameka Chu MD POINT OF CARE TEST ORDERAB LES Performing Organization Address City/State/[place] [address] EKG 12 Lead (05/18/2022 4:40 AM EDT) Component Value Ref Range Test Analysis Performed Pathologis t Method Time At Signature Ventricular rate 76 BPM MUSE SYSTEM Atrial Rate 76 BPM MUSE SYSTEM P-R Interval 180 ms MUSE SYSTEM QRS Duration 88 ms MUSE SYSTEM Q-T Interval 400 ms MUSE SYSTEM QTC Calculated 450 ms MUSE SYSTEM (Bezet) Calculated P [place] 31 degrees MUSE SYSTEM Calculated R [place] 74 degrees MUSE SYSTEM Calculated T [place] 97 degrees MUSE SYSTEM INTERPRETATION Normal sinus rhythm MUSE SYSTEM Abnormal ECG When compared with ECG of 17-MAY-2022 17:43, Questionable change in initial forces of Anterior leads Nonspecific T wave abnormality, improved in Lateral leads Confirmed by Beronica Galvez ([id number]) on 05/18/2022 8:44:38 A M Specimen Anatomical Collection Method Collection Time Receive d Time (Source) Location / / Volume Laterality 05/18/2022 4:40 AM 8:44 EDT AM EDT Paty Bueno MD ECG ORDERABLES Performing Organization Address City/State/ZIP Code Phon e Number MUSE SYSTEM (ABNORMAL) Hemoglobin A1c (05/17/2022 8:12 PM EDT) Analysis Performed At Patho logist Time Signature Hemoglobin A1C 6.0 (H) 4.3 - 5.6 [facility] LABORATORY Comment: Reference Range: 4.3 - 5.6% [...] Mellitus, Diabetes Care 2013; 36: Suppl. 1, S67-46 Est Avg Gluc 127 mg/dL [facility] LABORATORY Comment: eAG equivalents for HbA1c [...] into estimated average glucose values. ??Diabetes Care 2008:31(8):8700-5319. Specimen Anatomical Collection Method Collection Time Receive d Time (Source) Location / / Volume Laterality Blood Venous Draw / 05/17/2022 8:12 PM 05/18/20 22 Unknown EDT 10:02 AM EDT Resulting Agency Comment Spec In Lab Mary Wray APRN CHEMISTRY ORDERABLES Performing Organization Address City/State/ZIP Code Phon e Number [place] [id number]OSP[address] LABORATORY Drive (ABNORMAL) Hepatic Function Panel (05/17/2022 8:12 PM EDT) P athologist Signature Total Protein 6.5 6.1 - 8.0 [place]ANC[place] g/dL [facility] LABORATORY Albumin 3.7 3.2 - 5.2 [place] g/dL [facility] LABORATORY AST 18 0 - 30 [place] unit/L [facility] LABORATORY ALT 16 0 - 30 [place] unit/L [facility] LABORATORY Alk Phos 118 (H) 35 - 105 [place] unit/L [facility] LABORATORY Total 0.4 0.2 - 1.3 [place] Bilirubin mg/dL [facility] LABORATORY Bili, Direct 0.1 0.0 - 0.3 [place] mg/dL [facility] LABORATORY Specimen Anatomical Collection Method Collection Time Receive d Time (Source) Location / / Volume Laterality Blood Venous Draw / 05/17/2022 8:12 PM 05/17/20 8:18 Unknown EDT PM EDT Resulting Agency Comment Spec In Lab Paty Bueno MD CHEMISTRY ORDERABLES Performing Organization Address City/State/ZIP Code Phon e Number [address] Scan, Peripheral Blood (05/17/2022 8:12 PM EDT) [facility]MPie Method Time Signature Plat Estimate Normal [facility] LABORATORY RBC Morphology Normal [facility] Giant Platelets Less than /HPF [address] LABORATORY Specimen Anatomical Collection Method Collection Time Receive d Time (Source) Location / / Volume Laterality Blood 05/17/2022 8:12 PM 2 8:18 EDT PM EDT Resulting Agency Comment Spec In Lab Paty Bueno MD HEMATOLOGY ORDERABLES Performing Organization Address City/[facility]/ZIP Code Phon e Number [address] (ABNORMAL) Differential, Automated (05/17/2022 8:12 PM EDT) Wummelbox Method Time Signature Neutrophils % 45.1 % [facility] LABORATORY Neutr Abs (ANC) 4.40 1.70 - [facility] 6.10 [facility] x10(3)/[facility] LABORATORY Lymphocytes % 42.7 % [facility] LABORATORY Lymphocytes Abs 4.2 (H) 0.9 - 3.2 [facility] x10(3)/[facility] LABORATORY Monocytes % 6.9 % [facility] LABORATORY Monocyte Abs 0.7 0.3 - 0.9 [facility] x10(3)/[facility] LABORATORY Eosinophils % 4.9 % [facility] LABORATORY Eosinophils Abs 0.5 (H) 0.0 - 0.4 [facility] x10(3)/[facility] LABORATORY Basophils % 0.2 % [facility] LABORATORY Basophils Abs 0.0 0.0 - 0.1 [facility] x10(3)/[facility] LABORATORY Immature Gran % 0.20 % [facility] LABORATORY Comment: Immature granulocytes(IG's)percentage an d absolute count will include metamyelocytes, myelocytes, and promyelo cytes. Blood smears from CBCs yielding IG's will be scanned manually for concor dance. If this scan disagrees with the automated IG or if promyelocytes are not ed, a manual differential will be performed. Anaya Gran Abs 0.02 0.00 - 0.04 x10(3)/[facility] MAR Y [facility] LABORATORY Specimen Anatomical Collection Method Collection Time Receive d Time (Source) Location / / Volume Laterality Blood 05/17/2022 8:12 PM 8:18 EDT PM EDT Resulting Agency Comment Spec In Lab Paty Bueno MD HEMATOLOGY ORDERABLES Performing Organization Address City/State/[place] [address] (ABNORMAL) Hemogram (05/17/2022 8:12 PM EDT) Analysis Performed At Patho logist Time Signature WBC 9.8 (H) 4.0 - 9.5 [facility] x10(3)/[facility] LABORATORY RBC 5.26 (H) 4.00 - [facility] 5.21 [facility] x10(6)/[facility] LABORATORY Hemoglobin 15.1 11.7 - [facility] 15.5 g/dL [facility] LABORATORY Hematocrit 44.9 35.7 - [facility] 45.8 % [facility] LABORATORY MCV 85.4 82.6 - [facility] 94.4 [facility] LABORATORY MCH 28.7 27.1 - [facility] SANCHEZ 32.[address] [facility] LABORATORY MCHC 33.6 31.7 - [facility] 35.0 g/dL [facility] LABORATORY Platelets 319 145 - 357 [facility] x10(3)/[facility] LABORATORY RDWSD 45.2 37.0 - [facility] 46.0 [facility] RDWCV 14.6 (H) 11.5 - [facility] LABORATORY MPV 9.8 7.6 - 12.9 [facility] LABORATORY nRBC % Auto 0.0 % [facility] LABORATORY nRBC Abs Auto 0.000 0.000 - [facility] 0.000 [facility] x10(3)/[facility] LABORATORY Specimen Anatomical Collection Method Collection Time Receive d Time (Source) Location / / Volume Laterality Blood 05/17/2022 8:12 PM 2 8:18 EDT PM EDT Resulting Agency Comment Spec In Lab Paty Bueno MD HEMATOLOGY ORDERABLES Performing Organization Address City/[facility]/[place] [address] (ABNORMAL) pro-Brain Natriuretic Peptide (05/17/2022 8:12 PM EDT) P athologist Signature ProBNP 186 (H) <=124 pg/mL [facility] LABORATORY Specimen Anatomical Collection Method Collection Time Receive d Time (Source) Location / / Volume Laterality Blood 05/17/2022 8:12 PM 2 8:17 EDT PM EDT Resulting Agency Comment Spec In Lab Paty Bueno MD CHEMISTRY ORDERABLES Performing Organization Address City/[facility]/[place] [address] Magnesium (05/17/2022 8:12 PM EDT) P athologist Signature Magnesium 1.00 0.69 - 1.07 [facility] mmol/L [facility] LABORATORY Specimen Anatomical Collection Method Collection Time Receive d Time (Source) Location / / Volume Laterality Blood 05/17/2022 8:12 PM 2 8:17 EDT PM EDT Resulting Agency Comment Spec In Lab Paty Bueno MD CHEMISTRY ORDERABLES Performing Organization Address City/[facility]/ZIP Code Phon e Number [address] (ABNORMAL) BMP w/fasting Glucose (05/17/2022 8:12 PM EDT) P athologist Signature Glucose 119 (H) 65 - 99 [facility] Fasting mg/dL [facility] LABORATORY Comment: ?Fasting* Glucose Interpretive C riteria [...] of Diabetes Mellitus, Position Statement from the [place] [employer]. ??Diabete s Care, Volume 33, Supplement 1, Oct 2009 BUN 15 8 - 18 mg/dL [facility] LABORATORY Creatinine 0.68 (L) 0.70 - 1.20 mg/dL [facility] LABORATORY Sodium 140 135 - 145 mmol/L [facility] LABORATORY Potassium 3.5 3.5 - 5.0 mmol/L [facility] LABORATORY Comment: Please note: ??Patients with WBC >100,00 0 may have falsely elevated Potassium levels. ??For accurate Potassium quantif ication in these patients send serum separator tube (gold top) for subsequent determinations. ??Contact the Clinical Chemistry Laboratory if there are any qu estions. Chloride 102 98 - 107 mmol/L [facility] LABORATORY CO2 26 22 - 31 mmol/L [facility] LABORATORY Anion Gap 12 5 - 15 mmol/L [facility] LABORATORY Calcium 8.6 8.5 - 10.5 mg/dL [facility] LABORATORY Estimated GFR 109 >=60 mL/min/1.73 m?? [facility] LABORATORY Comment: This patient's estimated [...] Bueno MD CHEMISTRY ORDERABLES Performing Organization Address City/[facility]/ZIP Code Phon e Number [address] POCT Glucose (05/17/2022 6:38 PM EDT) athologist Signature POC Glucose 89 65 - 199 [place] mg/dL [facility] LABORATORY Comment: Supplemental ranges: <140 mg/dL before meals <180 mg/dL all other times of the day Specimen Anatomical Collection Method Collection Time Receive d Time (Source) Location / / Volume Laterality Blood 05/17/2022 6:38 PM 2 6:38 EDT PM EDT Rafi Barrett MD POINT OF CARE TEST ORDERABLE S Performing Organization Address City/[facility]/ZIP Code Phon e Number [address] POCT Glucose (05/17/2022 5:46 PM EDT) P athologist Signature POC Glucose 75 65 - 199 [place] mg/dL [facility] LABORATORY Comment: Supplemental ranges: <140 mg/dL before meals <180 mg/dL all other times of the day Specimen Anatomical Collection Method Collection Time Receive d Time (Source) Location / / Volume Laterality Blood 05/17/2022 5:46 PM 2 5:46 EDT PM EDT Rafi Barrett MD POINT OF CARE TEST ORDERABLE S Performing Organization Address City/[facility]/ZIP Code Phon e Number [address] EKG 12 Lead (05/17/2022 5:43 PM EDT) Component Value Ref Range Test Analysis Performed Pathologis t Method Time At Signature Ventricular rate 66 BPM MUSE SYSTEM Atrial Rate 66 BPM MUSE SYSTEM P-R Interval 186 ms MUSE SYSTEM QRS Duration 92 ms MUSE SYSTEM Q-T Interval 436 ms MUSE SYSTEM QTC Calculated 457 ms MUSE SYSTEM (Bezet) Calculated P [place] 29 degrees MUSE SYSTEM Calculated R [place] 49 degrees MUSE SYSTEM Calculated T [place] 85 degrees MUSE SYSTEM INTERPRETATION Normal sinus rhythm MUSE SYSTEM Anteroseptal infarct (cited on or before 17-MAY-2022) Abnormal ECG When compared with ECG of 13-MAY-2022 09:49, Nonspecific T wave abnormality, worse in Anterolateral leads QT has shortened Confirmed by MD Jose, Yumi ([id number]) on 05/18/2022 4:25:01 PM Specimen Anatomical Collection Method Collection Time Receive d Time (Source) Location / / Volume Laterality 05/17/2022 5:43 PM 4:25 EDT PM EDT Rafi Barrett MD ECG ORDERABLES Performing Organization Address City/State/ZIP Code Phon e Number MUSE SYSTEM CARDIAC CATHETERIZATION (05/17/2022 5:24 PM EDT) Anatomical Region Laterality Modality Other Specimen (Source) Anatomical Location Collection Method / Collectio n Time Received Time / Laterality Volume Narrative 05/17/2022 9:24 PM EDT ?[facility] ? Cardiac Cathete rization/Intervention Report ? Patient Name: Sho, Aracelis ? Procedure Date: 05/17/2022 ? A #: [id number] ? Primary Physician: Rafi Barrett ? Case #: [id number] ? File Name: [id number] ? Catheterization Order Number: [id number] ? [facility] ? Final Report [place], [place] ? Patient Name: ? Aracelis Sho ? ID#: ?[id number] ? : ?1975 ? Procedure Date: ? May 17, 2022 ?Case #: ? [id number] ? Room: ? 6 ? Case Physician: ? Rafi Barrett M.D. ?Start: ?14:44 ?Fellow: ? Tai Freire D.O. ?Admission: ??05/17/2022 ? Referring Physician: ??Marc Hernández ? Procedures: ?* Coronary Angiography ?* Coronary Optical Coherence To mography ?* Coronary Stent Insertion ? History ?Aracelis Berkowitz is a 46 [...] procedure was Elective. The indication for ?the laborer electroplating visit is worsening angina and cardiomyopathy. Chest [...] ?? A premounted 2.75 x 30 mm [place] (EMILEE) ? was deployed. ? ?Following stent [...] 6 Fr. EBU 3.5 ? guide. ??The juice gustafson was predilated with a 2.50mm EUPHORA 12 MM ? balloon with a maximum inflation pressure of 12 atmospheres. ? A premounted 2. 00 x 22 mm [place]man [place] (EMILEE) was deployed. ? Following stent deployment, [...] accomplished through a 6 Fr. Ikari Right ? 1.5 guide. ??A premounted 3.00 x 12 mm Srikanth [place] (EMILEE) was ? deployed with a maximum [...] on chronic DAPT on arrival to the laborer electroplating. ?These recommendations are made at the time of the intervention. Patient ?and provider preferences or a c hanging clinical situation may require ?modification of this regimen. C [facility] Interventional Cardiology for ?questions. ?This patient has [...] any medical treatment. Consult ?http://tools.acc.org/DAPTriskap p/#!/content/calculator/ or [facility] ?Interventional Cardiology for q uestions ? Conclusions: [...] the sedation nurse. ??Case time = 02:37. ?Dada Valdez d the coronary angiography, stent ?insertion-coronary and OCT-coronar y. ? Rafi Barrett M.D. ? Report Finalized: 05/17/2022 ??21:17 ? Rafi Barrett MD CARDIAC CATH ORDERABLES POCT Glucose (05/17/2022 12:44 PM EDT) P athologist Signature POC Glucose 121 65 - 199 [facility] mg/dL [facility] LABORATORY Comment: Supplemental ranges: <140 mg/dL before meals <180 mg/dL all other times of the day Specimen Anatomical Collection Method Collection Time Receive d Time (Source) Location / / Volume Laterality Blood 05/17/2022 12:44 05/17/2022 PM EDT 12:44 PM EDT Rafi Barrett MD POINT OF CARE TEST ORDERABLE S Performing Organization Address City/State/[place] [address] documented in this encounter Visit Diagnoses Diagnosis Ischemic cardiomyopathy - Primary Other specified forms of chronic ischemi c heart disease Coronary artery disease involving [place] coronary artery of [place] heart without angina pectoris NSTEMI (non-ST elevated myocardial infar ction) Acute myocardial infarction, subendocard ial infarction, episode of care unspecified Ischemic cardiomyopathy Other specified forms of chronic ischemi c heart disease Skin lesion Unspecified disorder of skin and subcuta neous tissue ASCVD (arteriosclerotic cardiovascular d isease) Unspecified cardiovascular disease ASCVD (arteriosclerotic cardiovascular d isease) Unspecified cardiovascular disease Coronary artery disease involving [place] coronary artery of [place] heart without angina pectoris documented in this encounter Admitting Diagnoses Diagnosis Ischemic [...] TIMES DAILY PRN, Tooth pain, Starting on Mon05/19/22 at 2018, Until Mon05/23/22 at 1602 Given 05/22/2022 4:01 PM EDT [...] Given 05/21/2022 10:20 AM EDT 10 mg ferrous sulfate EC tablet 325 mg Given 05/20/2022 8:59 AM EDT 325 mg 325 mg, Oral, EVERY OTHER DAY, First dose on Mon05/18/22 at 0900, Until Discontinued, DO NOT CRUSH OR OPEN. Take with food or water. , Routine Given 05/18/2022 9:08 AM EDT 325 mg ferrous sulfate EC tablet 325 mg Given [...] AM EDT 40 mg gabapentin (Neurontin) capsule 1,200 mg Given 05/18/2022 8:31 PM EDT 1,200 mg 1,200 mg, Oral, NIGHTLY, First dose on Mon05/17/22 at 2100, Until Discontinued, Routine Given 05/17/2022 9:02 PM EDT 1,200 mg gabapentin (Neurontin) capsule 600 mg Given [...] Right Lower Quadrant insulin glargine-ygfn (Semglee) (100 Given 05/23/2022 8:14 AM ED T 10 Units unit/mL) subcutaneous injection vial 10 Units 10 Units, Subcutaneous, DAILY, First dose (after last modification) on Mon05/20/22 at 0900, Until Discontinued, Routine Given 05/22/2022 9:43 AM EDT 10 Units Left Arm Given 05/21/2022 10:05 AM EDT 10 Units Left Arm insulin glargine-ygfn (Semglee) (100 uni t/mL) subcutaneous injection vial 12 Units 12 Units, Subcutaneous, DAILY, First dos e (after last modification) on Mon05/24/22 at 0900, Until Discontinued, Routine insulin glargine-ygfn (Semglee) (100 Given 05/19/2022 9:20 AM ED T 8 Units unit/mL) subcutaneous injection vial 8 U nits 8 Units, Subcutaneous, DAILY, First dose on Mon05/18/22 at 1045, Until Discontinued, Routine Given 05/18/2022 11:38 AM EDT 8 Units insulin lispro (HumaLOG;Admelog) Given 05/23/2022 12:22 PM [...] PM EDT 2 Units insulin lispro (HumaLOG;Admelog) (100 Given 05/20/2022 9:03 AM E DT 2 Units unit/mL) subcutaneous injection vial 1-4 Units 1-4 Units, Subcutaneous, EVERY 4 HOURS SCHEDULED, First dose (after last modification) on Mon05/18/22 at 1030, Until Discontinued, CORRECTION BOLUS [1-4 Units] Sensitive [...] 240 mg/dL in 2 hours., Routine Given 05/20/2022 3:28 AM EDT 1 Units Given 05/19/2022 9:20 AM EDT 2 Units insulin lispro (HumaLOG;Admelog) Given [...] Given 05/18/2022 9:18 AM EDT 3 mLs ketorolac (Toradol) (30 mg/mL) injection 15 mg Given 05/17/2022 9:05 PM EDT 15 mg 15 mg, Intravenous, ONCE, 1 dose, On Mon05/17/22 at 2100, Routine ketorolac (Toradol) (30 mg/mL) injection 15 Given 05/18/2022 11:38 AM EDT 15 mg mg 15 mg, Intravenous, EVERY 8 HOURS PRN, 3 doses, Starting on Mon05/17/22 at 2255, Until Mon05/18/22 at 1611, Pain, Routine Given 05/18/2022 3:02 AM EDT 15 mg ketorolac (Toradol) (30 mg/mL) injection 15 mg Given 05/18/2022 4:17 PM EDT 15 mg 15 mg, Intravenous, ONCE, 1 dose, On Mon05/18/22 at 1700, STAT ketorolac (Toradol) (30 mg/mL) injection 7.5 Given 4:07 AM EDT 7.5 mg mg 7.5 mg, Intravenous, EVERY 6 HOURS, 16 doses, First dose (after last modification) on Mon05/18/22 at 2200, Last dose on Mon05/22/22 at 1600, Routine Given 05/18/2022 10:08 PM EDT 7.5 mg ketorolac (Toradol) (30 mg/mL) injection 7.5 Given 9:29 PM EDT 7.5 mg mg 7.5 mg, Intravenous, EVERY 6 HOURS PRN, 2 doses, Starting on Toya 05/19/22 at 1452, Until Toya 05/19/22 at 2129, Pain, Routine Given 05/19/2022 3:40 PM EDT 7.5 mg ketorolac (Toradol) (30 mg/mL) injection 7.5 Given 10:20 AM EDT 7.5 mg mg 7.5 mg, Intravenous, EVERY 6 HOURS PRN, 2 doses, Starting on Mon05/20/22 at 1345, Until 05/21/22 at 1020, Pain, Routine Given 05/20/2022 2:00 PM EDT 7.5 mg ketorolac (Toradol) (30 mg/mL) injection 7.5 Given 3:47 PM EDT 7.5 mg mg 7.5 mg, Intravenous, ONCE, 1 dose, On 05/21/22 at 1600, Routine lidocaine (Lidoderm) 5% Patch Applied 05/23/2022 11:48 [...] dose., Routine, Name of patient's Methadone clinic? [facility] phone: [phone], Date last Methadone dose was given at [...] Given 05/21/2022 10:20 AM EDT 25 mg metoprolol tartrate (Lopressor) tablet 12.5 Given 05/02 9:16 PM EDT 12.5 mg mg 12.5 mg, Oral, EVERY 6 HOURS SCHEDULED, First dose on Mon05/17/22 at 2015, Until Discontinued, Hold for SBP under 90 or HR under 50., Routine nicotine (Nicoderm CQ) 14 Given 05/23/2022 [...] hr patch. nitroGLYcerin (Nitroglyn) 2 % ointment Given 05/22/2022 12:1 2 PM EDT 0.3 inches 0.3 inch 0.3 inch (rounded from 0.25 inch), Topical (Top), ONCE, 1 dose, On Mon05/22/22 at 1230, Application Site: chest, Routine nitroGLYcerin (Nitroglyn) 2 % ointment Given 05/21/2022 7:05 PM EDT 0.5 inches 0.5 inch 0.5 inch, Topical (Top), ONCE, 1 dose, On 05/21/22 at 1930, Application Site: chest, Routine nitroGLYcerin (Nitrostat) disintegrating Given 05/22/2022 8:47 P [...] 1602, Nausea, Routine pantoprazole EC (Protonix) tablet 20 mg Given 05/18/2022 9:11 AM EDT 20 mg 20 mg, Oral, DAILY, First dose on Mon05/17/22 at 2015, Until Discontinued, DO NOT CRUSH OR OPEN, Routine Given 05/17/2022 9:16 PM EDT 20 mg pantoprazole EC (Protonix) tablet 20 mg Given 05/18/2022 1:48 PM EDT 20 mg 20 mg, Oral, ONCE, 1 dose, On Mon05/18/22 at 1245, DO NOT CRUSH OR OPEN, Routine pantoprazole EC (Protonix) tablet 40 mg Given 05/23/2022 8:08 AM EDT 40 mg 40 mg, Oral, DAILY, First dose on Mon05/19/22 at 0900, Until Discontinued, DO NOT CRUSH OR OPEN, Routine Given 05/22/2022 8:47 AM EDT 40 mg Given 05/21/2022 9:39 AM EDT 40 mg potassium chloride ER (K-Dur/Klor-Con) tablet Given 9:18 AM EDT 20 mEq 20 mEq 20 mEq, Oral, DAILY, First dose on Mon05/17/22 at 2015, Until Discontinued, 20 mEq tablet may be dissolved in water for administration, Routine Given 05/18/2022 9:07 AM EDT 20 mEq Given 05/17/2022 9:16 PM EDT 20 mEq sodium chloride 0.9% infusion New Bag 05/17/2022 6:00 PM EDT 75 mL/hr 75 mL/hr 75 mL/hr, Intravenous, CONTINUOUS, Starting on Mon05/17/22 at 1800, Until Mon05/17/22 at 1900, Recovery (Recovery-Hospital Unit) spironolactone (Aldactone) tablet 12.5 m g Given 05/19/2022 9:18 AM EDT 12.5 mg 12.5 mg, Oral, DAILY, First dose on Mon05/18/22 at 0900, Until Discontinued, DO NOT SPLIT, CRUSH OR OPEN, Routine Given 05/18/2022 9:07 AM EDT 12.5 mg documented in this encounter Active and [...] 80 mg 1738 (Given - Provider: Edison Powell RN) 1741 (Given - Provider: Edison Powell RN) 80 mg, Oral, EVERY EVENING, First dose o n Mon05/17/22 at 2015, Until Discontinued, Routine cephALEXin (Keflex) capsule 500 mg 1441 (Given - Provider: Edison Powell RN)1741 (Given - Provider: Edison Powell, DEVAN)2043 (Given - Provider: Lora Teran RN) 0808 [...] Edison Powell RN)2308 (Given - Provider: Lora Teran RN) 0608 (Given - Provider: Lora Teran RN)1400 [...] RN) 0943 (Given - Provider: Edison Powell RN)1220 (Given - Provider: Edison Powell RN)1743 (Given - Provider: Edison Powell RN) 0815 (Given - Provider: Edison Powell RN )1222 (Given - Provider: Edison Powell RN) 0-8 Units, Subcutaneous, 3 TIMES DAILY W [...] new insulin orders. DO NOT hold if TRAVEL INSURANCE AGENT O, unless specifically directed to do so [...] Reason: Patient/family refused)0809 (Not Given - Provider: [place] Powell, RN - Reason: Patient/family refused) 3 mL, [...] Teran RN) 0808 (Given - Provider: Edison Powell, DEVAN) 400 mg, Oral, 2 TIMES DAILY, First dose on Mon05/17/22 at 2100, Until Discontinued, Routine methadone (Dolophine) (10 mg/mL) oral liquid 100 mg 09 39 (Given - Provider: Edison Powell RN) 0845 (Given - Provider: Edison Powell, RN) 0813 (Given - Provider: Edison Powell [...] hr patch Patch Removal (Linked Group 3) 899 (Patch Removed - Provider: Edison Powell RN) [...] (Patch (dose and location) verified - Provider: Lroa Teran RN) 0848 (Patch (dose and location) [...] Routine nitroGLYcerin (Nitrostat) disintegrating tablet 0.4 mg 2047 (Given - Provider: Lora Teran RN) 0.4 mg, Sublingual, EVERY 5 MIN PRN, Sta rting on Mon05/18/22 at 0507, Until Mon05/23/22 at 1602, Chest pain, SL nitroglycerin may be repeated every 5 minutes as needed up to 3 doses, Routine ondansetron (Zofran) tablet 4 mg 4 mg, Oral, EVERY 8 HOURS PRN, Starting on Mon05/22/22 at 1507, Until Mon05/23/22 at 1602, Nausea, Routine Linked Groups Order [...] episode. & nbsp; For persistent hypoglycemia, con warp dresser longer-acting treatment for the duration of the [...]
Routine documented in this encounter Care Teams C.O.D. Biller Relationship Specialty Start Date End Date Lora Parekh MD PCP - General Family Medicine 08/06/[address] [place] [phone] documented as of this encounter
--- OUTSIDE RECORDS SUMMARY | 2022-08-14 18:35 | XMS_ITS | Encounter Summary ---
:1975 Author Organization [facility] [place] [place] [address] Care Team Providers Name Role Phone Valentin Parekh MD Primary Care Provider Encounter Details Date Type Department Care Team Description 03/20/2022 Telephone General Surgery at [facility] Maryann Conley MD [facility] [place] [phone] GENERAL SURGERY [phone] [place], [place] [address] (Wo rk) Social History Tobacco Use Types Packs/Day Years Used Date Smoking Tobacco: Every Day Cigarettes 0.5 Smokeless Tobacco: Never Alcohol Use Standard Drinks/Week Comments Yes 0 (1 standard drink = 0.6 oz pure alcoho l) occasional Sex Assigned at Date Recorded Not on file documented as of this encounter Miscellaneous Notes Telephone Encounter - Maryann Conley MD - 03/20/2022 9:36 AM EDT I returned this call at 9:36 AM. Aracelis Monique is a 46 y.o. female who is generally unwell (poorly controlled T2DM, CAD, CHF), who presented about a month ago with progressively severe LLE pain of unclear etiology and underwent fasciotomy 02/19/[address] Mark followed by wound closure 02/22/22. Aracelis's mother Vicenta calls this morning in regards to worsening of her daughter's wounds. Vicenta describes how Aracelis has been in and out of their local ED for treatment of her LLE incisionalwounds given concern for infection. Unfortunately, right after Aracelis's discharge home end of January, she did not take her antibiotics as prescribed. She has since been seen at the hospital in [facility] 5 times in the past 2 weeks and was prescribed several different antibiotics. Despite this, oneof the wounds opened up and started draining green pus on 03/15. Vicenta feels the sutures were removed too early and does not feel the care has been adequate. Per Vicenta, Aracelis continues to have significant leg pain and the wound looks worse. Vicenta wants her daughter to be seen at [facility] because she be lieves that is where she will get the best care. However, Vicenta has MS and does not drive anymore, so she has no way to bring Aracelis to our ED. I advised Vicenta to have her daughter go to their local ED so the wound can be evaluated. I assured her that the team there would reach out to us if they feel Aracelis needs to be transferred to [facility] for further management. Vicenta agrees with this plan. This note will be routed to the provider mentioned above. Maryann Conley MD documented in this encounter Plan of Treatment Upcoming Encounters Date Type Specialty Care Team Description 08/22/2022 Appointment Cardiology 08/22/2022 Laboratory Appointment Lab 08/22/2022 Office Visit Cardiology Tameka Neal MD [facility] [address] [place] [address] (Wo rk) documented as of this encounter Visit Diagnoses Not on filedocumented in this encounter Care Teams Consultant Internship Relationship Specialty Start Date End Date Valentin Parekh MD PCP - General Family Medicine 08/06/[address] [place] [phone] documented as of this encounter
--- OUTSIDE RECORDS SUMMARY | 2022-08-14 18:35 | XMS_ITS | Encounter Summary ---
:1975 Author Organization [facility] Address [facility] [place] [address] Care Team Providers Name Role Phone Valentin Parekh MD Primary Care Provider Reason for Visit Reason Onset Date Comments Medication Change/management 02/24/2022 Encounter Details Date Type Department Care Team Description 02/24/2022 Telephone Anesthesiology Mayco Fritz MD Medication [facility] [address] [place] [phone] ANESTHESIOLOGY DEPT [phone] [place], [place] [address] (Wo rk) Social History Tobacco Use Types Packs/Day Years Used Date Smoking Tobacco: Every Day Cigarettes 0.5 Smokeless Tobacco: Never Alcohol Use Standard Drinks/Week Comments Yes 0 (1 standard drink = 0.6 oz pure alcoho l) occasional Sex Assigned at Date Recorded Not on file documented as of this encounter Plan of Treatment Upcoming Encounters Date Type Specialty Care Team Description 08/22/2022 Appointment Cardiology 08/22/2022 Laboratory Appointment Lab 08/22/2022 Office Visit Cardiology Tameka Neal MD [facility] [address] [address] (Wo rk) documented as of this encounter Visit Diagnoses Not on filedocumented in this encounter Care Teams Records Section Supervisor Relationship Specialty Start Date End Date Valentin Parekh MD PCP - General Family Medicine 08/06/21 [address] [place] [phone] documented as of this encounter
--- OUTSIDE RECORDS SUMMARY | 2022-08-14 18:35 | XMS_ITS | Encounter Summary ---
:1975 Author Organization [place] [address] Care Team Providers Name Role Phone Valentin Parekh MD Primary Care Provider Encounter Details Date Type Department Care Team Description 03/15/2022 Telephone General Surgery at [facility] [place] [phone] Social History Tobacco Use Types Packs/Day Years Used Date Smoking Tobacco: Every Day Cigarettes 0.5 Smokeless Tobacco: Never Alcohol Use Standard Drinks/Week Comments Yes 0 (1 standard drink = 0.6 oz pure alcoho l) occasional Sex Assigned at Date Recorded Not on file documented as of this encounter Miscellaneous Notes Telephone Encounter - Chelly Villegas RN - 03/15/2022 10:26 AM EDT Abhay Yadav mother called and let us know that Aracelis is on her way to [facility] ED because her leg hasopened up, it is ozzing green pus and she is in a lot of pain. I told Vicenta I would let the team know. documented in this encounter Plan of Treatment Upcoming Encounters Date Type Specialty Care Team Description 08/22/2022 Appointment Cardiology 08/22/2022 Laboratory Appointment Lab 08/22/2022 Office Visit Cardiology Tameka Neal MD [facility] [address] [place] [address] (Wo rk) documented as of this encounter Visit Diagnoses Not on filedocumented in this encounter Care Teams Wealth Management Consultant Relationship Specialty Start Date End Date Valentin Parekh MD PCP - General Family Medicine 08/06/[address] [place] [phone] documented as of this encounter
--- OUTSIDE RECORDS SUMMARY | 2022-08-14 18:35 | XMS_ITS | Encounter Summary ---
:1975 Author Organization [facility] Address [address] [place] [address] Care Team Providers Name Role Phone Valentin Parekh MD Primary Care Provider Encounter Details Date Type Department Care Team Description 05/13/2022 Unscheduled Cardiology at [facility] Delfin, Cardiomyopathy, unspecified type; Encounter [facility] JERRY Schuster ASCVD (arteriosclerotic cardiovascular d isease); [facility] Cigarette smoker [place] [phone] [place] [id number] Social History Tobacco Use Types Packs/Day Years Used Date Smoking Tobacco: Every Day Cigarettes 0.5 Smokeless Tobacco: Never Alcohol Use Standard Drinks/Week Comments Yes 0 (1 standard drink = 0.6 oz pure alcoho l) occasional Sex Assigned at Date Recorded Not on file documented as of this encounter Progress Notes Francine Lenz PA - 05/13/2022 1:04 PM EDT Cardiac Electrophysiology Clinic Visit Subjective: Patient ID: Aracelis Monique is a 46 y.o. female. Indication: HFrEF, syncope, consider ICD HPI: 46 y.o. female with past medical history of CAD (s/p NSTEMI in September 2021, s/p EMILEE to RCA) and HFrEF who has experienced syncope in setting of persistently reduced LVEF despite GDMT and is being see as an urgent add-on in clinic for consideration of ICD at the request of Dr. Singleton, with whom the patient met for a routine outpatient follow-up appointment today. Ms. Monique was admitted to [facility] Cardiology in September 2021 for evaluation and management of an NSTEMI. She underwent cath which demonstrated two vessel CAD (LAD and RCA). On the same admission, during adifferent cath, she underwent EMILEE x 3 to her RCA, no intervention to her LAD. She was discharged on metoprolol, losartan, atorvastatin, torsemide. She was unable to attend cardiac rehab. 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 Toledo. She explains that once she was discharged, she felt better for a short period of time. However, for the past several months she has experienced SOB, requiring supplemental O2 (2-3L) at night via NC; CP, which is new for her (did not have chest pain at time of her NSTEMI); palpitations, fleeting but occurring daily; lightheadedness and samia syncope- traumatic syncope in January 2022 with subsequent LLE compartment syndrome requiring fasciotomy; weight gain in the setting of abdominal fluid retention. She also notes an unspecified kidney disorder which causes her pain- she follows up with her PCP forthis. Smokes 1/2 pack of cigarettes per day. Attends a methadone clinic daily. Does not consume alcohol. Uses THC edibles for pain. Lives in [place], [place]. Has 4 children. Her significant other is currently incarcerated. Patient Active Problem List Diagnosis ??? Myositis ??? NSTEMI (non-ST elevated myocardial infarction) ??? Dislocation of left shoulder joint, chronic, recurrent, with multiple surgeries. ROS: Constitutional: + fatigue, - fever, - chills Respiratory: + shortness of breath, - cough, - apnea, - wheezing Cardiovascular: + chest pain, + palpitations, - unusual rates Gastrointestinal: + nausea, + vomiting (difficulty keeping down solid food), - abdominal pain, - diarrhea Neurological: + lightheadedness, + dizziness, + syncope, - weakness Psychiatric: - anxious Medications: Current Outpatient Medications Medication Sig Dispense Refill ??? torsemide (Demadex) 20 mg Tablet Take 20-40 mg by mouth 2 times daily. ??? cetirizine (ZyrTEC) 10 mg Tablet Take 10 mg by mouth daily as needed. ??? colchicine (Colcrys) 0.6 mg Tablet Take 0.6 mg by mouth 2 times daily. ??? Jardiance 10 mg Tablet Take 10 mg by mouth daily. ??? fluticasone propionate (Flonase) 50 mcg/actuation [place], Suspension as needed. ??? folic acid (Folvite) 1 mg Tablet Take 1,000 mcg by mouth daily. ??? humaLOG KwikPen 100 unit/mL Insulin Pen as needed. ??? potassium chloride ER (K-Dur/Klor-Con) 20 mEq Tab Sust.Rel. Particle/Crystal TAKE ONE TABLET BY MOUTH EVERY DAY FOR 10 DAYS ??? dextromethorphan (Robitussin) 15 mg Capsule Take 1 capsule by mouth every 6 hours. 20 capsule 0 ??? ondansetron (Zofran) 4 mg Tablet Take 1-2 tablets by mouth every 8 hours as needed. 20 tablet 0 ??? polyethylene glycoL (Miralax) 17 gram Powder in Packet Take 17 g by mouth daily as needed. 14 each 0 ??? acetaminophen (Tylenol) 500 mg Tablet [...] 1.8 mg subcutaneously daily. 30 mL 0 ??? furosemide (Lasix) 20 mg Tablet Take 1 tablet by mouth 2 times daily. 30 tablet 3 ? ? Blood Pressure Kit Med & Lrg Kit 1 Product by ezzai - how to arab[place].(Non-Drug; Combo Route) route 2 times daily. 1 [...] 2 times daily.) 30 tablet 3 ??? losartan (Cozaar) 25 mg Tablet Take 1 tablet by mouth daily. 90 tablet 3 ??? magnesium oxide (Mag-Ox) 400 mg (241.3 mg magnesium) Tablet Take 1 tablet by mouth 2 times daily. 30 tablet 12 ??? metoprolol succinate XL (Toprol-XL) 50 mg Tablet Sustained Release 24 hr Take 1 tablet by mouth daily. (Patient taking differently: Take 25 mg by mouth 2 times daily.) 30 tablet 12 ??? nitroGLYcerin (Nitrostat) 0.4 mg Tablet, Sublingual Place 1 tablet under the tongue every 5 minutes as needed for Chest pain. 90 tablet 12 ??? gabapentin (Neurontin) 300 mg Capsule Take 2 capsules by mouth 2 times daily. (Patient taking differently: Take 600 mg by mouth daily.) 90 capsule 12 ??? insulin needles, disposable, 32 gauge x 5/32 Needle Inject 1 each subcutaneously daily. Indications: diabetes mellitus 100 each 11 ??? nicotine (Nicoderm CQ) 14 mg/24 hr [...] puff into the lungs 2 times daily. Objective: Vitals: BP 111/77 Heart Rate 82 SpO2 97 % Height 162.6 cm (5' 4) Weight 82.6 kg (182 lb) BSA (Calculated - sq m) 1.93 sq meters BMI (Calculated) 31.24 Physical Exam: General- Laying on exam room chair, somnolent HEENT- Normocephalic, wearing glasses, healing sores on head Skin- Tattoos, healing sores Neck- No JVD noted Cardiovascular- S1/S2 regular rate and regular rhythm. Lungs- Expiratory wheezing in apices bilaterally, otherwise clear to auscultation bilaterally Extremities- Pulses equal bilaterally. No edema noted Neuro- A&Ox3 ECG in office today shows likely SR at 83bpm, GA 166ms, QRS 98ms, QT 444ms, QTc 521ms Echo 09/05/21 SUMMARY: 1. The left ventricle is mildly dilated. Global left ventricular systolic function is moderately reduced. The quantitative left ventricular ejection fraction by biplane Jaramillo's method is 33%. There are segmental left ventricular wall motion abnormalities involving the entire apex is akinetic 2. The right ventricle is normal in size. Right ventricular global systolic function is normal. 3. No thrombus is visualized within the left ventricle. Echo 05/13/22 Interpretation Summary Left ventricular systolic function is moderately reduced. The left ventricular ejection fraction is 31% by Jaramillo's biplane. There are segmental wall motion abnormalities. The right ventricle is of normal size. Right ventricular systolic function is normal. Cardiac cath 09/02/2021 Conclusions: * Two vessel coronary artery disease (LAD and RCA) * Mild pulmonary hypertension * Elevated left ventricular end diastolic pressure Cardiac cath 09/03/2021 Conclusions: * Obstructive disease of the RCA * Successful stent insertion of the mid RCA lesion * Successful stent insertion of the distal RCA lesion * Successful stent insertion of the proximal RCA lesion * See Dual Antiplatelet (DAPT) Recommendations above Assessment and Plan: 46 y.o. female with past medical history of CAD (s/p NSTEMI in September 2021, s/p EMILEE to RCA) and HFrEF who has experienced syncope in setting of persistently reduced LVEF despite GDMT for >>3 months. Although syncope may be attributed to ventricular arrhythmias in setting of reduced LVEF, thereis a plausible need for PCI. During her visit with Dr. Singleton, the decision was made to proceed with outpatient cardiac cath for PCI to the LAD next week. In the setting of planned revascularization, EP will continue to follow for consideration of ICD for primary prevention. If Ms. Fines LVEF is persistently reduced 3 months following revascularization, despite continuation of GDMT, would consider ICD implant. If cardiac cath does not reveal indication for revascularization, would arrange left-sided ICD implant. With respect to cigarette use, Ms. Monique is pre-contemplative as she continues to smoke but acknowledges the need for cessation. Ms. Monique is amendable to the above plan. Plan: 1. Agree with cardiac cath 2. EP follow-up pending results of cardiac cath as above I appreciate the opportunity to be involved with Ms. Monique's care. Please do not hesitate to contact EP with any further questions (pager [phone]). JERRY Parham 2:47 PM 05/13/22 documented in this encounter Plan of Treatment Upcoming Encounters Date Type Specialty Care Team Description 08/22/2022 Appointment Cardiology 08/22/2022 Laboratory Appointment Lab 08/22/2022 Office Visit Cardiology Tameka Neal MD [facility] [address] [place] [address] (Wo rk) documented as of this encounter Visit Diagnoses Diagnosis Cardiomyopathy, unspecified type ASCVD (arteriosclerotic cardiovascular d isease) Unspecified cardiovascular disease Cigarette smoker Tobacco use disorder documented in this encounter Care Teams Personal Attendant Relationship Specialty Start Date End Date Valentin Parekh MD PCP - General Family Medicine 08/06/[address] [place] [phone] documented as of this encounter
--- OUTSIDE RECORDS SUMMARY | 2022-08-14 18:35 | XMS_ITS | Encounter Summary ---
:1975 Author Organization [facility] [place] [address] Care Team Providers Name Role Phone Valentin Parekh MD Primary Care Provider Reason for Referral Diagnostic Test (Routine) - Closed Specialty Diagnoses / Procedures Referred By Contact Refer red To Contact Cardiology Diagnoses Coronary artery disease involving [place] coronary artery of [place] heart without angina pectoris Guanakito Singleton MD [facility] Non-Inv Card Lab Procedures Echocardiogram Transthoracic [facility] CARDIOLOGY DEPT. [place], [place] [id number] [place] [phone] Fax: Referral ID Status Reason Start Date Expiration Date Visits V isits Requested Authorized [id number] Closed Specialty 05/13/2022 05/13/2023 1 1 Service Requested Reason for Visit Diagnostic Test (Routine) - Closed Specialty Diagnoses / Procedures Referred By Contact Refer red To Contact Cardiology Diagnoses Coronary artery disease involving [place] coronary artery of [place] heart without angina pectoris Guanakito Singleton MD [facility] Non-Inv Card Lab Procedures Echocardiogram Transthoracic [facility] CARDIOLOGY DEPT. [place], [place] [phone] [place] [phone] Fax: Referral ID Status Reason Start Date Expiration Date Visits V isits Requested Authorized [id number] Closed Specialty 05/13/2022 05/13/2023 1 1 Service Requested Encounter Details Date Type Department Care Team Description 05/13/2022 Hospital Encounter Non-Invasive Guanakito Singleton Coron ary artery Cardiology Lab Hermelinda OROPEZA disease involving [facility] DR campbell of [facility] CARDIOLOGY DE PT. heart without angina [address] [place] [phone] Social History Tobacco Use Types Packs/Day Years Used Date Smoking Tobacco: Every Day Cigarettes 0.5 Smokeless Tobacco: Never Alcohol Use Standard Drinks/Week Comments Yes 0 (1 standard drink = 0.6 oz pure alcoho l) occasional Sex Assigned at Date Recorded Not on file documented as of this encounter Medications at Time of Discharge [...] as needed. 0 04/13/2022 (Flonase) 50 mcg/actuation [place], Suspension folic acid (Folvite) 1 Take 1,000 [...] ejection daily. fraction), Coronary artery disease involving [place] coronary artery of [place] heart without angina pectoris, Hypertension, unspecified type [...] mouth 4 times daily for 4 days. torsemide (Demadex) 20 Take 20-40 mg by 0 05/10/ 022 05/23/2022 mg Tablet mouth 2 times daily. potassium chloride ER TAKE ONE TABLET BY 0 202105/23/2022 (K-Dur/Klor-Con) 20 mEq MOUTH EVERY DAY FOR Tab Sust.Rel. 10 DAYS Particle/Crystal Insulin Tresiba Inject 10 Units 9 mL 3 02/24/202205/03 FlexTouch U-200 200 subcutaneously daily. unit/mL (3 mL) Insulin Indications: type 2 PenIndications: type 2 diabetes mellitus diabetes mellitus furosemide (Lasix) 20 Take 1 tablet by 30 tablet 3 09/06/20 21 05/17/2022 mg TabletIndications: mouth 2 times daily. HFrEF (heart failure with reduced ejection fraction), Coronary artery disease involving [place] coronary artery of [place] heart without angina pectoris, Hypertension, unspecified type losartan (Cozaar) 25 mg Take 1 tablet by 90 tablet 3 202005/23/2022 Tablet mouth daily. metoprolol succinate XL Take 1 tablet by 30 tablet 12 202005/23/2022 (Toprol-XL) 50 mg mouth daily. Tablet Sustained Release [address] 1 tablet under 90 tablet 12 09/05/2021 0 05/23/2022 (Nitrostat) 0.4 mg the tongue every 5 Tablet, Sublingual minutes as needed for Chest pain. documented as of this encounter Plan of Treatment Upcoming Encounters Date Type Specialty Care Team Description 08/22/2022 Appointment Cardiology 08/22/2022 Laboratory Appointment Lab 08/22/2022 Office Visit Cardiology Tameka Neal MD [facility] [place], [place] [address] (Wo rk) documented as of this encounter Procedures Procedure Name Priority Date/Time Associated Comments Diagnosis ECHOCARDIOGRAM COMPLETE Routine 05/13/2022 11:21 Coronary sakshi ry Results for this W CONTRAST AM EDT disease involving procedure are in [place] coronary the results artery of [place] section. heart without angina pectoris documented in this encounter Results ECHOCARDIOGRAM COMPLETE W CONTRAST (05/13/2022 11:21 AM EDT) Anatomical Region Laterality Modality Cardiac Other Specimen (Source) Anatomical Collection Method Collection Time Re ceived Time Location / / Volume Laterality 05/13/2022 10:21 AM EDT Narrative 05/13/2022 11:30 AM EDT ? Echocardiogram Report Name: December ? Study Date: 05/13/2022 10:21 AMBP: 111/77 mmHg ? Patient Location: 4A 0000 : 1975 ? Height: 163 cm ? Account: [id number] Age: 46 yrs ? Weight: 83 kg Gender: Female ?BSA: 1.9 m2 Ordering Physician: GUANAKITO SINGLETON Referring Physician: GUANAKITO SINGLETON Performed By: Beverly Farrell RDCS Reason For Study: Coronary artery diseas e Exam Location: [facility]. Interpretation Summary Left ventricular systolic function is mo derately reduced. The left ventricular ejection fraction is 31% by Jaramillo's bi plane. There are segmental wall motion abnormalities. The right ventricle is of normal size. R ight ventricular systolic function is normal. Procedure Complete-[id number]. Image enhancement Optiso n was used for left ventricular opacification. Suboptimal quality. Left Ventricle Wall thickness is normal. Left ventricul ar systolic function is moderately reduced. The left ventricular ejection f raction is 31% by Jaramillo's biplane. Left ventricular ejection fraction is estimat ed visually at 30-35%. There are segmental wall motion abnormalities. Right Ventricle The right ventricle is of normal size. R ight ventricular systolic function is normal. Left Atrium The left atrium is normal. No abnormalit y of the interatrial septum is identified. Right Atrium The right atrium is normal. Aortic Valve The aortic valve is tricuspid. The aorti c valve is mildly thickened. There is no aortic stenosis. There is no aortic regu rgitation. Mitral Valve Mild thickening of the mitral leaflets. There is no mitral stenosis. There is mild mitral regurgitation. Tricuspid Valve The tricuspid valve is structurally norm al. There is mild tricuspid regurgitation. Pulmonic Valve The pulmonic valve appears to be structu rally normal. There is trace pulmonic valve regurgitation. Great Arteries The aortic root is of normal size. No ab normalities are identified. Ascending aorta is normal in size. No abnormalitie s of the pulmonary artery are identified. Venous Inferior vena cava is normal in size. In ferior vena cava collapse less than 50% with respiration. Pericardium/Pleural There is no pericardial effusion. Hemodynamics The peak right ventricular systolic pres sure is 24 mmHg. The estimated right atrial pressure is 8mmHg. Left ventricul ar diastolic function is normal. Left ventricular filling pressure is normal. Ejection Fraction ?2D Measurem ents ? Volumes LV Biplane EF: 31.2 % ? IVSd: 0.92 c m ?LA Volume Index: ?L VIDd: 5.2 cm ?L VIDs: 3.5 cm ?28.6 ml/m2 ?L VPWd: 0.88 cm ? EDV Biplane: 153.9 ml ? EDV Biplane Index: 81.9 ?L V mass(C)d: 167.7 grams ? ESV Biplane: 105.9 ml ?L V mass(C)dI: 89.2 grams/m2 ?ESV Biplane Index: 56.3 ?A o root diam: 3.5 cm ? SV(LVOT): 76.9 ml ?A o root diam index: 1.8 ?LV Stroke Volume: 76.8 ml ?a sc Aorta Diam: 3.5 cm ?L VOT diam: 2.1 cm ?SI(LVOT): 40.9 ml/m2 ?T APSE_phl: 1.6 cm Doppler TR max marito: 197.6 cm/sec RVSP(TR): 23.6 mmHg Ao V2 VTI: 29.2 cm Ao valve max: 9.6 mmHg Ao valve mean: 6.3 mmHg MV E max marito: 86.8 cm/sec MV A max marito: 98.5 cm/sec MV E/A: 0.88 MV dec time: 0.25 sec Lat Peak E' Marito: 8.9 cm/sec E/ e' (lat): 9.8 Med Peak E' Marito: 8.0 cm/sec E/e' (med): 10.9 E/e' Average: 10.4 LILI(I,D): 2.6 cm2 Dimensionless index Aov: 0.76 I ?WMSI = 2.19 ? % Normal = 1 2 ?Segments ??Size X - Cannot ?2 - ?4 - ?1-2 ? small Interpret ?1 - Normal ?? Hypokinetic 3 - Akinetic Dyskinetic ?? 3-5 ? moderate 5 - ? 6-14 ?large Aneurysmal ?15-16 ?? diffuse Procedure Note Hernán Mariscal MD - 05/13/2022Formatt ing of this note might be different from the original. Echocardiogram Report Name: KAYDENDecember Study Date: 05/13/2022 10:21 AMBP: 111/77 mmHg Patient Location: 000 0 : 1975 Height: 163 cm Account: [id number] Age: 46 yrs Weight: 83 kg Gender: Female BSA: 1.9 m2 Ordering Physician: GUANAKITO SINGLETON Referring Physician: GUANAKITO SINGLETON Performed By: Beverly Farrell RDCS Reason For Study: Coronary artery diseas e Exam Location: [facility]. Interpretation Summary Left ventricular systolic function is mo derately reduced. The left ventricular ejection fraction is 31% by Jaramillo's bi plane. There are segmental wall motion abnormalities. The right ventricle is of normal size. R ight ventricular systolic function is normal. Procedure Complete-09814. Image enhancement Optiso n was used for left ventricular opacification. Suboptimal quality. Left Ventricle Wall thickness is normal. Left ventricul ar systolic function is moderately reduced. The left ventricular ejection f raction is 31% by Jaramillo's biplane. Left ventricular ejection fraction is estimat ed visually at 30-35%. There are segmental wall motion abnormalities. Right Ventricle The right ventricle is of normal size. R ight ventricular systolic function is normal. Left Atrium The left atrium is normal. No abnormalit y of the interatrial septum is identified. Right Atrium The right atrium is normal. Aortic Valve The aortic valve is tricuspid. The aorti c valve is mildly thickened. There is no aortic stenosis. There is no aortic regu rgitation. Mitral Valve Mild thickening of the mitral leaflets. There is no mitral stenosis. There is mild mitral regurgitation. Tricuspid Valve The tricuspid valve is structurally norm al. There is mild tricuspid regurgitation. Pulmonic Valve The pulmonic valve appears to be structu rally normal. There is trace pulmonic valve regurgitation. Great Arteries The aortic root is of normal size. No ab normalities are identified. Ascending aorta is normal in size. No abnormalitie s of the pulmonary artery are identified. Venous Inferior vena cava is normal in size. In ferior vena cava collapse less than 50% with respiration. Pericardium/Pleural There is no pericardial effusion. Hemodynamics The peak right ventricular systolic pres sure is 24 mmHg. The estimated right atrial pressure is 8mmHg. Left ventricul ar diastolic function is normal. Left ventricular filling pressure is normal. Ejection Fraction 2D Measurements Volume s LV Biplane EF: 31.2 % IVSd: 0.92 cm LA V olume Index: LVIDd: 5.2 cm LVIDs: 3.5 cm 28.6 ml/m2 LVPWd: 0.88 cm EDV Biplane: 153.9 ml EDV Biplane Index: 81.9 LV mass(C)d: 167.7 grams ESV Biplane: 1 05.9 ml LV mass(C)dI: 89.2 grams/m2 ESV Biplane Index: 56.3 Ao root diam: 3.5 cm SV(LVOT): 76.9 ml Ao root diam index: 1.8 LV Stroke Volum e: 76.8 ml asc Aorta Diam: 3.5 cm LVOT diam: 2.1 cm SI(LVOT): 40.9 ml/m2 TAPSE_phl: 1.6 cm Doppler TR max marito: 197.6 cm/sec RVSP(TR): 23.6 mmHg Ao V2 VTI: 29.2 cm Ao valve max: 9.6 mmHg Ao valve mean: 6.3 mmHg MV E max marito: 86.8 cm/sec MV A max marito: 98.5 cm/sec MV E/A: 0.88 MV dec time: 0.25 sec Lat Peak E' Marito: 8.9 cm/sec E/ e' (lat): 9.8 Med Peak E' Marito: 8.0 cm/sec E/e' (med): 10.9 E/e' Average: 10.4 LILI(I,D): 2.6 cm2 Dimensionless index Aov: 0.76 I WMSI = 2.19 % Normal = 12 Segments Size X - Cannot 2 - 4 - 1-2 small Interpret 1 - Normal Hypokinetic 3 - Markell netic Dyskinetic 3-5 moderate 5 - 6-14 large Aneurysmal 15-16 diffuse Guanakito Shipley MD ECHO ORDERABLES documented in this encounter Visit Diagnoses Diagnosis Coronary artery disease involving [place] coronary artery of [place] heart without angina pectoris documented in this encounter Administered Medications Inactive Administered Medications - up to 3 most recent administrations Medication Order MAR Action Action Date Dose Rate Site perflutren protein-A microsphers Given 05/13/2022 10:50 AM EDT 1 .5 mLs (Optison) (0.22 mg/mL) injection 1.5 mL 1.5 mL, Intravenous, ONCE PRN, 1 dose, Starting on Mon05/13/22 at 1122, Until Mon05/13/22 at 1050, for enhancement of sub-optimal echo images, Echo Lab (Intra-Procedure), Routine documented in this encounter Care Teams Slide Developer Relationship Specialty Start Date End Date Valentin Parekh MD PCP - General Family Medicine 08/06/21 [address] [place] [phone] documented as of this encounter
--- OUTSIDE RECORDS SUMMARY | 2022-08-14 18:35 | XMS_ITS | Encounter Summary ---
:1975 Author Organization [facility] [place] [address] Care Team Providers Name Role Phone Valentin Parekh MD Primary Care Provider Encounter Details Date Type Department Care Team Description 03/06/2022 Ancillary Procedure Radiology Library at Maxime Parekh [facility] [address] [id number] Social History Tobacco Use Types Packs/Day Years [...] Neal MD [facility] [address] [place] [address] (Wo rk) documented as of this encounter Procedures Procedure Name Priority Date/Time Associated Diagnosis Comme nts FILM LIBRARY Routine 03/06/2022 12:00 AM Results for this STORAGE ONLY CT EDT procedure ar e in LOWER EXTREMITY the results section. documented in this encounter Results Film Library- Storage Only CT Lower Extremity (03/06/2022 12:00 AM EDT) Specimen (Source) Anatomical Location Collection Method / Collectio n Time Received Time / Laterality Volume Narrative RAD - 03/07/2022 12:23 AM EDT This exam is auto-finalizing. It's purpo se is for storage only. Valentin Parekh MD IMG FILM LIBRARY ORDERABLES Performing Organization Address City/State/ZIP Code Phon e Number [place], [place] documented in this encounter Visit Diagnoses Not on filedocumented in this encounter Care Teams Stallion Keeper Relationship Specialty Start Date End Date Valentin Parekh MD PCP - General Family Medicine 08/06/[address] [place] [phone] documented as of this encounter
--- OUTSIDE RECORDS SUMMARY | 2022-08-14 18:35 | XMS_ITS | Encounter Summary ---
:1975 [place] [address] Care Team Providers Name Role Phone Lora Parekh MD Primary Care Provider Reason for Visit Auth/Cert Specialty Diagnoses / Procedures Referred By Contact Refer red To Contact Diagnoses Ischemic cardiomyopathy Coronary artery disease involving bad river band coronary artery of bad river band heart without angina pectoris [I25.10] Tameka Neal [facility] Procedures PRG CATH PLMT CORONARY ART W/INJ FOR ANGIO W/R HEART CATH IMG S&I PRG CATH PLTX LEFT HEART CATH & ARTS W/INJ & ANGIO IMG S&I CARDIAC CATHETERIZATION CORONARY ANGIOGRAPHY; W RHC CORONARY ANGIOGRAPHY; W LHC,[place] [address] Referral ID Status Reason Start Date Expiration Date Visits Requ ested Visits Authorized [id number] 1 1 Encounter Details Date Type Department Care Team Description 05/17/2022 Surgery Trash Truck Driver Rafi Li, CARDIAC CATHETERIZATION [facility] [place] [address] CARDIOLOGY [phone] [place], [place] [address] (Wo rk) Social History Tobacco [...] Sign Reading Time Taken Comments Blood Pressure 93/60 05/17/2022 12:38 PM EDT Pulse 71 05/17/2022 12:38 PM EDT Temperature 36.3 ??C (97.3 ??F) 05/17/2022 12:38 PM EDT Respiratory Rate 18 05/17/2022 12:38 PM EDT Oxygen Saturation 95% 05/17/2022 12:38 PM EDT Inhaled Oxygen Concentration - - Weight 83.6 kg (184 lb 3.2 oz) 05/17/2022 12:38 PM EDT Height 162.6 cm (5' 4) 05/17/2022 12:38 PM EDT Body Mass Index 31.86 05/18/2022 3:48 AM EDT documented in this encounter Discharge Summaries Julieta Saunders PA - 05/23/2022 11:39 AM EDT Images from the original note were not included. Discharge Summary Patient Name: Aracelis Monique Patient Age: 46 y.o. Language: Uruguayan Race: White Ethnicity: Not nor Admit date: 05/17/2022 Discharge date and time: 05/23/2022. 11:40 AM Attending Physician: Tameka Chu MD, Hernán Mariscal MD Discharge Physician: Hernán Mariscal MD Follow-up Recommendations for Providers: Aracelis Monique is a 46 y.o. female admitted following [...] Laughlin MD Janette Stender, DAMIÁN Che, DAMIÁN Saunders PA-C Cardiovascular Medicine [phone] Discharge Diagnoses (Hospital Problems) and Secondary Diagnoses (Chronic Problems): Active Hospital Problems Diagnosis ??? Ischemic cardiomyopathy ??? ASCVD (arteriosclerotic cardiovascular disease) Resolved Hospital Problems No resolved problems to display. Active Non-Hospital Problems Diagnosis ??? Myositis ??? NSTEMI (non-ST elevated myocardial infarction) ??? Dislocation of left shoulder joint, chronic, recurrent, with multiple surgeries. Operations/Major Procedures: Operations: [facility] 05/17/22 Coronary Angiography: Dominance: Right Left [...] atmospheres. A premounted 2.75 x 30 mm Srikanth Loudon (EMILEE) was deployed. Following stent deployment, the [...] atmospheres. A premounted 2.00 x 22 mm Wewoka Loudon (EMILEE) was deployed. Following stent deployment, the [...] guide. A premounted 3.00 x 12 mm Wewoka Loudon (EMILEE) was deployed with a maximum inflation [...] on chronic DAPT on arrival to the forestry laborer. These recommendations are made at the time of the intervention. Patient and provider preferences or a changing clinical situation may require modification of this regimen. Consult [facility] [place]ventional Cardiology for questions. This patient has [...] against any medical treatment. Consult http://tools.acc.org/DAPTriskapp/#!/content/calculator/ or [facility] [place]ventional Cardiology for questions Conclusions: * Two [...] History of Presentation: Per admission H+P Aracelis Monique is a 46 y.o. female with PMH [...] [place]PD, [place] ?? Hospital Course: #ASCVD, staged PCI to LAD/D1 and distal RCA #Ischemic CM, acute on chronic HFrEF The patient was admitted following her planned staged coronary intervention (PCI to LAD/D1 bifurcation and distal RCA) for heart failure medication optimization. Access during LHC was via right radial artery and this [...] with the heart failure team here at [facility] within the next 2 weeks. The patient was evaluated by the cardiac rehab team. The patient tolerated supervised ambulation in the hallway and up/downstairs with no anginal symptoms. It was recommended that the patient return home and participate in a supervised cardiac rehab program at [facility]. #Hyperlipidemia Lipid profile showed total cholesterol [...] home (although the Jardiance is at [facility]). Her hemoglobin A1c was 6.0. Given the [...] patient's methadone dosing was verified at the [facility] clinic and she continued on 100 mg of methadone daily. Due to bedrest following her procedures doses of Toradol were used to assist with back pain. Lidoderm patches as well as Tylenol were also given to assist with her chronic pain. Both fentanyl and Versed were used when she was in the cardiac forestry laborer (both times) and the [facility] clinic was informed of these medication administrations. The patient was discharged home on no new pain medications. A letter will be faxed to the [facility] clinic to inform them of what [...] Med & Lrg Kit 1 Product by [facility].(Non-Drug; Combo Route) route 2 times daily. 1 [...] minimum of 12. After this time, your pt sitter will determine if you need to continue [...] away. Stay on the phone. The emergency cloth desizing range operator chief will tell you what to do. Nitroglycerin [...] appointments: During 8am-5pm Monday through Monday call [phone] to speak with a nurse in the cardiology clinic All other times call [phone] and ask to speak to the upholstery department supervisor delinquent tax collection assistant. Return to work: One week, if working prior to hospitalization Follow up Appointments: PCP Lora Parekh MD [phone] May 26, 2022 at 10:40 am Cardiology [...] 2:00 PM Denise Reeves PA Cardiology at [facility] Arrive at: [place] [phone] 08/22/2022 12:00 PM ECHO REGULAR Non-Invasive Cardiology Lab [facility] Arrive at: [place] [phone] 08/22/2022 1:00 PM LAB, THREE L Lab [address] [place] [address] Arrive at: [facility] [phone] 08/22/2022 2:00 PM Tameka Neal MD Cardiology at [facility] [place]rive at: [place] [phone] Future Orders Complete By Expires Echocardiogram Transthoracic [69972 CPT(R)] 05/19/2022 11/19/2022 Process Instructions: Scheduling Instructions: Comments: After 08/17 Questions: Where will study be performed?: [facility] Clinics Is a Bubble Study requested?: Does the patient have Congenital Heart Disease?: Does patient require sedation?: GA rationale: Referral to Cardiac Rehab [FMR489 Custom] As directed Process Instructions: If no progress note charted, please enter Clinical details in comments. Scheduling Instructions: Questions: My question or request is: angina Discharge References/Attachments None Discussed with MD Julieta Horn PA-C Pager #[phone] 05/23/2022 Associated attestation - Hernán Mariscal MD [...] documented in this encounter Discharge Instructions Discharge InstructionsJulieta Saunders PA - 05/19/2022 11:30 AM EDT You [...] minimum of 12. After this time, your pt sitter will determine if you need to continue [...] away. Stay on the phone. The emergency cloth desizing range operator chief will tell you what to do. Nitroglycerin [...] appointments: During 8am-5pm Monday through Monday call [phone] to speak with a nurse in the cardiology clinic All other times call [phone] and ask to speak to the upholstery department supervisor delinquent tax collection assistant. Return to work: One week, if working prior to hospitalization Follow up Appointments: PCP Lora Parekh MD [phone] May 26, 2022 at 10:40 am Cardiology [...] as needed. 0 04/13/2022 (Flonase) 50 mcg/actuation [place], Suspension folic acid (Folvite) 1 Take 1,000 mcg by 0 2021 mg Tablet mouth daily. humaLOG KwikPen 100 as needed. 0 04/13/2022 unit/mL Insulin Pen dextromethorphan Take 1 capsule by 20 capsule 0 02/24/2022 (Robitussin) 15 mg mouth every 6 hours. Capsule ondansetron (Zofran) 4 Take 1-2 tablets by 20 tablet 0 2 03/2022 mg Tablet mouth every 8 hours [...] ejection daily. fraction), Coronary artery disease involving bad river band coronary artery of bad river band heart without angina pectoris, Hypertension, unspecified type [...] distress. Patient to be taken home by [facility]. Julieta Saunders PA - 05/23/2022 10:46 AM EDT Inpatient Cardiology Progress Note Patient Name: December Sho Service: HOUSEHOLD PERSONAL ASSISTANT / PA Responsible Attending: Hernán Mariscal MD [...] %Sat Location %Sat Main Pulmonary Artery 66.0 [facility] 05/17/22 Conclusions: * Two vessel coronary artery disease (LAD and RCA) * Successful stent insertion of the ostial D1 lesion * Successful stent insertion of the proximal LAD lesion * Successful stent insertion of the distal RCA lesion * See Dual Antiplatelet (DAPT) Recommendations above Assessment: Aracelis Monique is a 46 y.o. female with PMH [...] discharge, approval has been obtained with insurance. [facility] who provides methadone was updated on discharge [...] Discussed with MD Julieta Horn PA-C Pager #[phone] 05/23/2022 Associated attestation - Hernán Mariscal MD [...] your insulin doses adjusted. Joy Munoz APRN [facility] Endocrinology Diabetes Management Pager [phone] 20 minutes of this 35 minute visit [...] Inpatient Cardiology Progress Note Patient Name: Aracelis Monique Service: HOUSEHOLD PERSONAL ASSISTANT / PA Responsible Attending: Hernán Mariscal MD [...] %Sat Main Pulmonary Artery 66.0 Assessment: Aracelis Monique is a 46 y.o. female with PMH [...] discharge, approval has been obtained with insurance. [facility] who provides methadone (spoke to Ruthann in [...] Cardiology Progress Note Patient Name: December Service: HOUSEHOLD PERSONAL ASSISTANT / PA Responsible Attending: Hernán Mariscal MD [...] %Sat Main Pulmonary Artery 66.0 Assessment: Aracelis Monique is a 46 y.o. female with PMH [...] discharge, approval has been obtained with insurance. [facility] who provides methadone (spoke to Ruthann in the dispensary), and they are closed on Andrey--typically an extra dose is given by them [...] factor of 40 4. Diet:cardiac carb control 5. Monitoring: Q4 ?? Discharge Considerations: Medications - Outpatient treatment regimen recommendations pending based on the hospital course. Monitoring - continue BG tid ac & hs, Have clinical trial educator reach out to determine if CGM [...] correction factor of 40 Diet cardiac choiced 6060/ Monitoring: Q 4 Discharge Considerations: She will follow up with PCP for Yasir 2 CGM plus reader Review importance of site rotation for insulin administration, avoiding area of lipohypertrophy on abdomen She should start back on insulin dosing identified during hospital admission NOT HER HOME DOSING Joy Munoz APRN [facility] Endocrinology Diabetes Management Pager [phone] 20 minutes of this 35 minute visit [...] Progress Note Patient Name: December Sho Service: HOUSEHOLD PERSONAL ASSISTANT / PA Responsible Attending: Hernán Mariscal MD [...] in the last 168 hours. Recent Labs 05/20/2233905/19/22 03305/17/222011 NA 142 142 140 K 5.5* 4.8 [...] %Sat Main Pulmonary Artery 66.0 Assessment: Aracelis Monique is a 46 y.o. female with PMH [...] been obtained with insurance. Dry weight at [facility] 188-190 pounds. Will start lasix 40 mg daily today and follow weight for tomorrow [facility] who provides methadone (spoke to Ruthann in [...] Cardiac/diabetic DVT PPx: SQH Discussed with MD Mray Horn APRN Pager [phone] 05/20/2022 Associated attestation - Hernán Mariscal MD [...] Progress Note Patient Name: December Sho Service: HOUSEHOLD PERSONAL ASSISTANT / PA Responsible Attending: Tameka Chu MD [...] be helpful. Aware of contact to the [facility] for methadone discussion. Review of Systems: Review [...] Continuous Infusions: PRN Meds:midazolam (PF), fentaNYL (PF), [Nov] nitroGLYcerin, [Nov] glucose 40% oral geL OR [NOV Hold] dextrose 10% OR [NOV Hold] glucagon, [Nov] albuteroL Physical Exam: Vital Signs: Last value [...] in the last 168 hours. Recent Labs 05/19/2233205/17/22201105/13/22 1136 NA 142 140 140 K 4.8 [...] No renal cysts. Bladder collapsed. Assessment: Aracelis Monique is a 46 y.o. female with PMH [...] Discussed with MD Mary Laughlin APRN Pager [phone] 05/19/2022 Associated attestation - Tameka Neal MD - 05/19/2022 11:10 AM EDT Cardiology Attending Attestation I was the assigned attending pt sitter for this clinical encounter. For the purposes [...] prior authorization. Estimated Date of Discharge: 05/23/2022 [employer] to fax the following to [facility]: FAX: [phone] [employer] Order Form(CM to have this scanned and emailed to [employer]) Facesheet H&P EP Note with & ZOLL [...] chronic, recurrent, with multiple surgeries. Subjective: Aracelis Monique is a 46 y.o. female with hx [...] tablet 975 mg Assessment & Plan: Aracelis Monique is a 46 y.o. female with hx [...] reason for life vest ischemic cardiomyopathy/hx of ID with EF < 35% - Life vest default settings: VT heart rate threshold 150 bpm; VF heart rate threshold 200 bpm; treatment energy 150 joules all five shocks. Gita Krishnan MD Mobile Home Technician, PGY4 Pager [phone] The EP team will facilitate wearable defibrillator therapy. James Chaves MD [facility] Cardiac Electrophysiology 05/25/2022 8:00 AM Tameka Neal MD - 05/19/2022 7:27 AM EDT Cardiology Service Attending Daily Progress Note Patient: Aracelis Monique : 1975 Date of Admission: 05/17/2022 LOS: [...] daily. ??? fluticasone propionate (Flonase) 50 mcg/actuation Frank[place], Suspension as needed. ??? folic acid (Folvite) [...] Med & Lrg Kit 1 Product by [employer].(Non-Drug; Combo Route) route 2 times daily. 1 [...] Intake/Output Summary (Last 24 hours) at 05/19/2022 0835 Last data filed at 05/18/2022 0910 Gross [...] ventricular systolic function is normal. Assessment: Aracelis Monique is a 46 y.o. year old female [...] need for ICD. Plan for lifevest at dispo. Plan: 1. ASA, plavix, atova 2. Continue [...] Cardiology Progress Note Patient Name: December Service: HOUSEHOLD PERSONAL ASSISTANT / PA Responsible Attending: Tameka Chu MD [...] be helpful. Aware of contact to the [facility] for methadone discussion. Review of Systems: Review [...] upper quadrant ultrasound: 05/18/22 Pending Assessment: Aracelis Monique is a 46 y.o. female with PMH [...] Discussed with MD Mary Laughlin APRN Pager [phone] 05/18/2022 Tameka eNal MD - 05/18/2022 7:57 AM EDT Cardiology Service Attending Daily Progress Note Patient: Aracelis Monique : 1975 Date of Admission: 05/17/2022 LOS: [...] daily. ??? fluticasone propionate (Flonase) 50 mcg/actuation [place], Suspension as needed. ??? folic acid (Folvite) [...] Med & Lrg Kit 1 Product by [employer].(Non-Drug; Combo Route) route 2 times daily. 1 [...] Intake/Output Summary (Last 24 hours) at 05/18/2022 9408 Last data filed at 05/17/2022 2100 Gross [...] ventricular systolic function is normal. Assessment: Aracelis Monique is a 46 y.o. year old female [...] EVALUATION NOTE: OUTCOME SUMMARY: Received patient from labor relations officer. Post PCI via right radial site. Pulses [...] Cardiology History and Physical Patient Name: Aracelis Monique Date of : 1975 Age: 46 y.o. Hospital Admit Date: 05/17/2022 Inpatient Attending: Dr. Coker PCP: Lora Parekh MD Presenting Diagnosis/Chief Complaint: ASCVD, s/p staged PCI to LAD. History of Present Illness: Aracelis Monique is a 46 y.o. female with PMH [...] [place]PD, [place] REVIEW OF SYSTEMS: Constitutional: weight loss, [...] dose administered prior to arrival in the forestry laborer. Recommended anti-platelet/anti-thrombotic regimen: Continue aspirin 81 mg daily. Continue clopidogrel 75 mg daily. These recommendations are made at the time of the intervention. Patient and provider preferences or a changing clinical situation may require modification of this regimen. Consult [facility] Interventional Cardiology for questions. The 1 year [...] 1.01) [facility]?? PRO DECOMPRESS ANT/LAT+POST LEG CMPART Left 02/19/2022 FASCIOTOMY, LOWER LEG, ALL COMPARTMENTS (WRVU 7.82) performed by Lora Mark MD at [facility] Significant Family History: History reviewed. [...] B/L, no calf tenderness, swelling, or erythema. Neuro/TERRITORY REPRESENTATIVE: AAO x 3, No gross motor deficits. [...] daily. ??? fluticasone propionate (Flonase) 50 mcg/actuation [place], Suspension as needed. ??? folic acid (Folvite) [...] Med & Lrg Kit 1 Product by [facility].(Non-Drug; Combo Route) route 2 times daily. 1 [...] 0.1 x10(3)/mcL Immature Gran % 0.20 % Anaay Gran Abs 0.02 0.00 - 0.04 x10(3)/mcL Scan, Peripheral Blood Result Value Ref Range Plat Estimate Normal RBC Morphology Normal Giant Platelets Less than 1 /HPF Assessment and plan: Aracelis Monique is a 46 y.o. female with PMH [...] SQH Paty Bueno MD 05/17/2022 Pager # [phone] Tai Freire DO - 05/17/2022 1:31 PM EDT Images from the original note were not included. Patient Name: Aracelis Monique Patient Age: 46 y.o. Birthdate: 1975 Admit date: 05/17/2022 Attending Physician: Rafi Barrett MD [facility] [place] [address] SAME DAY CARDIAC CATHETERIZATION LAB H&P ID: Aracelis Monique is a 46 y.o. female with past [...] 70% stenosis. This lesion involved bifurcation. Aracelis Monique has no planned upcoming surgeries. No recent [...] as planned -consent signed Tai Freire DO Mobile Home Technician 05/17/2022 documented in this encounter Miscellaneous Notes [...] Nurse Note Situation: Asked to see Aracelis Monique by Tiffanie Rowe, RN for Under both [...] Please contact DAISY SIMON RN on pager [phone] or the wound care team at [phone] or pager [phone] skin and wound care concerns or questions. Initial Assessments - Carrie Mike RN - 05/18/2022 5:29 PM EDT Office of Care Management Initial Assessment Carrie Mike RN reviewed record and discussed patient with Care Team. Source of Information: Team, bedside nurse, medical record, and Patient Introduced self/reviewed role; services accepted. Reason for Hospitalization: Per H&P by Dr. Paty Bueno: Aracelis Monique is a 46 y.o. female with PMH [...] PPD, [place]. ?? Covid Vaccination Status: (Per chart Pt is fully vaccinated; did not discuss) Last COVID test: Lab Results Component Value Date COVID19 Not Detected 02/22/2022 [id number] Not Detected 02/19/2022 Past medical History: Past [...] surrogate would be surrogate decision maker per [place] surrogate decision making law. (Only good for 180 days) Any patient receiving care in [place] must abide by [place] law. 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 Home Environment: Others in the home: child(fahad), adult, child(fahad), dependent (3 children in home, 19 y/o, 17 y/o and 11 y/o). Current Living Arrangements: home/apartment/condo. Accessibility Concerns: . Not discussed Resource / Environmental Concerns: Resource/Environmental Concerns: none Current DME: cane - quad, walker - standard (Pt would like a shower chair) Home Address confirmed as: [address] [place] [address] [place] [address] Social & Family Supports: All names listed below confirmed with patient as current and correct Extended Emergency Contact Information Primary Emergency Contact: SHODAVION Mobile Relation: Child Current Care Provided by: [...] Yes ; Prescription Coverage: Yes Preferred Pharmacy: [id number] [address] [address] [place], [place] - [address] [facility] [address] [address] [facility] [facility] [address] [employer] [address] - [place], [place] - [address] [facility] [address] Datto Status: Patient is a : No Primary Care Provider: Lora Parekh MD [phone] Patient/Caregiver Goals of Treatment: Potential Needs for Transition of Care: home health care (currently working [employer] to get home health aides, private duty) Agency Referrals: If needed: [facility] 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 Pt states [...] transition of care planning. Carrie Mike Pager: [phone] Cell: Consult Note - Joy Munoz APRN - 05/18/2022 1:39 PM EDT Images from the original note were not included. Diabetes Management Team Inpatient Consult Date of Consultation: 05/18/2022 Consult Requested by: Cardiology Reason for Consultation:Aracelis Monique is a 46 y.o. female with PMH [...] A1C updated and 6.0%. Diabetes History: Aracelis Monique has had diabetes for several years. She would love a CGM if she can figure out how to getone. Current outpatient diabetes regimen: Diabetes Provider: PCP, Dr. Lora Parekh, [facility] Medications: Jardiance 10mg daily, Tresiba U200 [...] Value Date CHOLHDL 5.8 09/02/2021 Assessment: Aracelis Monique is a 46 y.o. female with PMH [...] continue BG tid ac & hs, Have clinical trial educator reach out to determine if CGM covered for her Diet - low fat/low carb diet Exercise - weight-bearing exercise 30 min/day, as tolerated Thank you for allowing us to provide care for your patient Joy Munoz APRN Endocrinology Diabetes Management Service Pager: [phone] 70 minutes of this 80 minute visit was spent in counseling on diabetes and treatment plan, reviewingall glucose and insulin data as well as relevant laboratory results with the patient and in the coordination of care on the inpatient unit. Consult Note - Faina Howe RN - 05/18/2022 12:23 PM EDT Aracelis Monique was seen today by Cardiac Rehabilitation for: [...] in an outpatient cardiac rehabilitation program at [facility] was discussed. Patient agrees [...] 08/22/2022 Office Visit Cardiology Tameka Neal MD [facility] [place] [address] (Wo rk) Scheduled Orders Name [...] AM EDT disease involving procedure are in bad river band coronary the results artery of bad river band section. heart without angina pectoris HC VENIPUNCTURE [...] AM EDT disease involving procedure are in bad river band coronary the results artery of bad river band section. heart without angina pectoris POCT GLUCOSE [...] AM EDT disease involving procedure are in bad river band coronary the results artery of bad river band section. heart without angina pectoris POCT GLUCOSE [...] AM EDT disease involving procedure are in bad river band coronary the results artery of bad river band section. heart without angina pectoris POCT GLUCOSE [...] procedure are i n the results section. TAVERN CAR ATTENDANT SCAN 05/19/2022 12:00 Res ults for this [...] PM EDT disease involving procedure are in bad river band coronary the results artery of bad river band section. heart without angina pectoris US ABDOMEN [...] AM EDT disease involving procedure are in bad river band coronary the results artery of bad river band section. heart without angina pectoris BMP W/FASTING [...] PM EDT disease involving procedure are in bad [place] coronary the results artery of bad river band section. heart without angina pectoris CARDIAC CATHETERIZATION Routine 05/17/2022 5:24 Coronary arter y Results for this PM EDT disease involving procedure are in bad [place] band coronary the results artery of bad river band section. heart without angina pectoris CORONARY ANGIOGRAPHY; W 05/17/2022 2:11 Coronary arter y LHC,POSSIBLE PCI PM EDT disease involving bad river band coronary artery of bad river band heart without angina pectoris CORONARY ANGIOGRAPHY; W 05/17/2022 2:11 Coronary arter y RHC PM EDT disease involving bad river band coronary artery of bad river band heart without angina pectoris POCT GLUCOSE Routine 05/17/2022 12:44 Results for this PM EDT procedure are i n the results section. documented in this encounter Results POCT Glucose (05/23/2022 11:39 AM EDT) P athologist Signature POC Glucose 186 65 - 199 [place] mg/dL [facility] Comment: Supplemental ranges: <140 mg/dL before meals <180 mg/dL all other times of the day Specimen Anatomical Collection Method Collection Time Receive d Time (Source) Location / / Volume Laterality Blood 05/23/2022 11:39 05/23/2022 AM EDT 11:39 AM EDT Hernán Mariscal MD POINT OF CARE TEST ORDERABLE S Performing Organization Address City/State/ZIP Code Phon e Number [place] [id number]OSPITAL LAB[address]ORY Drive Arterial Duplex Arm, Unilat (05/23/2022 11:38 AM EDT) Component Value Ref Test Analysis Performed At [facility] Range Method Time Signature VB Text Department: Vascular Surgery Lab VASCUBASE Report Patient: [id number] (December) CPT: 82341 Referring Physician: SHARMIN MARTINEZ ?? Phone: Indications: [...] (ABNORMAL) POCT Glucose (05/23/2022 7:27 AM EDT) athologist Signature POC Glucose 220 (H) 65 - 199 [place] mg/dL [facility] Comment: Supplemental ranges: <140 mg/dL before meals <180 mg/dL all other times of the day Specimen Anatomical Collection Method Collection Time Receive d Time (Source) Location / / Volume Laterality Blood 05/23/2022 7:27 AM 2 7:27 EDT AM EDT Hernán Mariscal MD POINT OF CARE TEST ORDERABLE S Performing Organization Address City/State/[place] [address] (ABNORMAL) Differential, Automated (05/23/2022 3:19 AM EDT) [facility] Method Time Signature Neutrophils % 36.4 % [facility] Neutr Abs (ANC) 2.86 1.70 - [facility] 6.10 [facility] x10(3)/[facility] LABORATORY Lymphocytes % 44.5 % [facility] Lymphocytes Abs 3.5 (H) 0.9 - 3.[address] [facility] x10(3)/[facility] LABORATORY Monocytes % 9.8 % [facility] Monocyte Abs 0.8 0.3 - 0.[address] [facility] x10(3)/[facility] LABORATORY Eosinophils % 8.4 % [facility] Eosinophils Abs 0.7 (H) 0.0 - 0.[address] [facility] x10(3)/[facility] LABORATORY Basophils % 0.6 % [facility] Basophils Abs 0.0 0.0 - 0.[address] [facility] x10(3)/[facility] LABORATORY Immature Gran % 0.30 % [facility] Comment: Immature granulocytes(IG's)percentage an d absolute count will include metamyelocytes, myelocytes, and promyelo cytes. Blood smears from CBCs yielding IG's will be scanned manually for concor dance. If this scan disagrees with the automated IG or if promyelocytes are not ed, a manual differential will be performed. Anaya Gran Abs 0.02 0.00 - 0.04 x10(3)/[facility] MAR Y [facility] LABORATORY Specimen Anatomical Collection Method Collection Time Receive d Time (Source) Location / / Volume Laterality Blood 05/23/2022 3:19 AM 2 3:40 EDT AM EDT Resulting Agency Comment Spec In Lab Sharmin Che APRN HEMATOLOGY ORDERABLES Performing Organization Address City/State/ZIP Code Phon e Number [address] (ABNORMAL) Hemogram (05/23/2022 3:19 AM EDT) Analysis Performed At Patho logist Time Signature WBC 7.8 4.0 - 9.5 [facility] x[facility](3[facility] LABORATORY RBC 4.98 4.00 - [place] 5.21 [facility] x10(6)/[facility] LABORATORY Hemoglobin 14.3 11.7 - [facility] g/dL [facility] Hematocrit 44.1 35.7 - [facility] 45.8 % [facility] MCV 88.6 82.6 - [facility] 94.4 [facility] LABORATORY MCH 28.7 27.1 - [place] 32.0 pg [facility] MCHC 32.4 31.7 - [facility] [place]HEZ 35.0 g/dL [facility] Platelets 301 145 - [address] [facility] x10(3)/[facility] LABORATORY RDWSD 46.6 (H) 37.0 - [facility] 46.0 [facility] LABORATORY RDWCV 14.5 (H) 11.5 - [facility] 14.1 % [facility] MPV 10.4 7.6 - 12.9 [facility] LABORATORY nRBC % Auto 0.0 % [facility] nRBC Abs Auto 0.000 0.000 - [facility] 0.000 [facility] x10(3)/[facility] LABORATORY Specimen Anatomical Collection Method Collection Time Receive d Time (Source) Location / / Volume Laterality Blood 05/23/2022 3:19 AM 2 3:40 EDT AM EDT Resulting Agency Comment Spec In Lab Sharmin Che APRN HEMATOLOGY ORDERABLES Performing Organization Address City/State/ZIP Code Phon e Number [address] (ABNORMAL) BMP w/fasting Glucose (05/23/2022 3:19 AM EDT) athologist Signature Glucose 277 (H) 65 - [address] [facility] Fasting mg/dL [facility] Comment: ?Fasting* Glucose Interpretive C [...] of Diabetes Mellitus, Position Statement from the [employer]. ??Diabete s Care, Volume 33, Supplement 1, Oct 2009 BUN 24 (H) 8 - 18 mg/dL [facility] Creatinine 0.77 0.70 - 1.20 mg/dL [facility] Sodium 137 135 - 145 mmol/L [facility] Potassium 4.4 3.5 - 5.0 mmol/L [facility] Comment: Please note: ??Patients with WBC >100,00 0 may have falsely elevated Potassium levels. ??For accurate Potassium quantif ication in these patients send serum separator tube (gold top) for subsequent determinations. ??Contact the Clinical Chemistry Laboratory if there are any qu estions. Chloride 102 98 - 107 mmol/L [facility] CO2 24 22 - 31 mmol/L [facility] Anion Gap 11 5 - 15 mmol/L [facility] Calcium 8.8 8.5 - 10.5 mg/dL [facility] Estimated GFR 96 >=60 mL/min/1.73 m?? [facility] Comment: This patient's estimated GFR was [...] Organization Address City/State/ZIP Code Phon e Number [address] POCT Glucose (05/22/2022 8:06 PM EDT) athologist Signature POC Glucose 153 65 - 199 [facility] mg/dL [facility] Comment: Supplemental ranges: <140 mg/dL before meals <180 mg/dL all other times of the day Specimen Anatomical Collection Method Collection Time Receive d Time (Source) Location / / Volume Laterality Blood 05/22/2022 8:06 PM 2 8:06 EDT PM EDT Hernán Mariscal MD POINT OF CARE TEST ORDERABLE S Performing Organization Address City/[facility]/ZIP [place] [address] POCT Glucose (05/22/2022 5:39 PM EDT) P athologist Signature POC Glucose 173 65 - 199 [place] mg/dL [facility] Comment: Supplemental ranges: <140 mg/dL before meals <180 mg/dL all other times of the day Specimen Anatomical Collection Method Collection Time Receive d Time (Source) Location / / Volume Laterality Blood 05/22/2022 5:39 PM 2 5:39 EDT PM EDT Hernán Mariscal MD POINT OF CARE TEST ORDERABLE S Performing Organization Address City/State/[place] [address] (ABNORMAL) POCT Glucose (05/22/2022 12:07 PM EDT) athologist Signature POC Glucose 233 (H) 65 - 199 [facility] mg/dL [facility] Comment: Supplemental ranges: <140 mg/dL before meals <180 mg/dL all other times of the day Specimen Anatomical Collection Method Collection Time Receive d Time (Source) Location / / Volume Laterality Blood 05/22/2022 12:07 05/22/2022 PM EDT 12:07 PM EDT Hernán Mariscal MD POINT OF CARE TEST ORDERABLE S Performing Organization Address City/State/ZIP [place] [address] POCT Glucose (05/22/2022 8:04 AM EDT) athologist Signature POC Glucose 112 65 - 199 [facility] mg/dL [facility] Comment: Supplemental ranges: <140 mg/dL before meals <180 mg/dL all other times of the day Specimen Anatomical Collection Method Collection Time Receive d Time (Source) Location / / Volume Laterality Blood 05/22/2022 8:04 AM 8:04 EDT AM EDT Hernán Mariscal MD POINT OF CARE TEST ORDERABLE S Performing Organization Address City/State/Z[place] [address] EKG 12 Lead (05/22/2022 6:31 AM EDT) Component Value Ref Range Test Analysis Performed Pathologis t Method Time At Signature Ventricular rate 57 BPM MUSE SYSTEM Atrial Rate 57 BPM MUSE SYSTEM P-R Interval 170 ms MUSE SYSTEM QRS Duration 94 ms MUSE SYSTEM Q-T Interval 454 ms MUSE SYSTEM QTC Calculated 441 ms MUSE SYSTEM (Bezet) Calculated P [place] 24 degrees MUSE SYSTEM Calculated R [place] 17 degrees MUSE SYSTEM Calculated T [place] 110 degrees MUSE SYSTEM INTERPRETATION Sinus bradycardia MUSE SY STEM Septal infarct (cited on or before 20-MAY-2022) T wave abnormality, consider lateral ischemia Abnormal ECG When compared with ECG of 21-MAY-2022 06:45, (unconfirmed) Serial changes of Septal infarct Present Confirmed by MD Davey, Hernán ([id number]) on 05/22/2022 8:09:10 AM Specimen Anatomical Collection Method Collection Time Receive d Time (Source) Location / / Volume Laterality 05/22/2022 6:31 AM 8:09 EDT AM EDT Mary Wray [employer]CHOOL [employer] OPERATOR ECG ORDERABLES Performing Organization Address City/State/ZIP Code Phon e Number MUSE SYSTEM Amylase (05/22/2022 5:04 AM EDT) P athologist Signature Amylase 44 28 - 100 [facility] [place]HE[place] unit/L [facility] Specimen Anatomical Collection Method Collection Time Receive d Time (Source) Location / / Volume Laterality Blood Venous Draw / 05/22/2022 5:04 AM 05/22/20 5:18 Unknown EDT AM EDT Resulting Agency Comment Spec In Lab Sharmin Che SCHOOL BUS OPERATOR CHEMISTRY ORDERABLES Performing Organization Address City/[facility]/ZIP [facility] [place] [address] Lipase (05/22/2022 5:04 AM EDT) P athologist Signature Lipase 22 0 - [address] [facility] Specimen Anatomical Collection Method Collection Time Receive d Time (Source) Location / / Volume Laterality Blood Venous Draw / 05/22/2022 5:04 AM 05/22/20 22 5:18 Unknown EDT AM EDT Resulting Agency Comment Spec In Lab Sharmin Che SCHOOL BUS OPERATOR CHEMISTRY ORDERABLES Performing Organization Address City/[facility]/ZIP [facility] [place] [address] (ABNORMAL) Hepatic Function Panel (05/22/2022 5:04 AM EDT) Analysis Performed At Patho logist Time Signature Total Protein 6.6 6.1 - 8.0 [facility] [place] g/dL [facility] Albumin 3.8 3.2 - 5.2 [facility] [place] g/dL [facility] AST 31 (H) 0 - 30 [facility] [place] unit/L [facility] ALT 29 0 - 30 [facility] [place] unit/L [facility] Alk Phos 112 (H) 35 - 105 [facility]/L [facility] Total 0.2 0.2 - 1.[address] [facility] Bilirubin mg/dL [facility] Bili, Direct Not Perf 0.0 - 0.3 [facility] mg/dL [facility] Comment: Specimen lipemic or turbid in a ppearance, unsuitable for analysis. Specimen Anatomical Collection Method Collection Time Receive d Time (Source) Location / / Volume Laterality Blood Venous Draw / 05/22/2022 5:04 AM 05/22/20 5:18 Unknown EDT AM EDT Resulting Agency Comment Spec In Lab Sharmin J King DAMIÁN CHEMISTRY ORDERABLES Performing Organization Address City/State/[place] [address] (ABNORMAL) Differential, Automated (05/22/2022 5:04 AM EDT) [facility] Method Time Signature Neutrophils % 38.5 % [facility] Neutr Abs (ANC) 2.68 1.70 - [facility] 6.10 [facility] x10(3)/[facility] LABORATORY Lymphocytes % 40.4 % [facility] Lymphocytes Abs 2.8 0.9 - 3.[address] [facility] x10(3)/[facility] LABORATORY Monocytes % 11.2 % [facility] Monocyte Abs 0.8 0.3 - 0.[address] [facility] x10(3)/[facility] LABORATORY Eosinophils % 8.9 % [facility] Eosinophils Abs 0.6 (H) 0.0 - 0.[address] [facility] x10(3)/[facility] LABORATORY Basophils % 0.7 % [facility] Basophils Abs 0.0 0.0 - 0.[address] [facility] x10(3)/[facility] LABORATORY Immature Gran % 0.30 % [facility] Comment: Immature granulocytes(IG's)percentage an d absolute count will include metamyelocytes, myelocytes, and promyelo cytes. Blood smears from CBCs yielding IG's will be scanned manually for concor dance. If this scan disagrees with the automated IG or if promyelocytes are not ed, a manual differential will be performed. Anaya Gran Abs 0.02 0.00 - 0.04 x10(3)/[facility] MAR Y [facility]ORY Specimen Anatomical Collection Method Collection Time Receive d Time (Source) Location / / Volume Laterality Blood 05/22/2022 5:04 AM 2 5:14 EDT AM EDT Resulting Agency Comment Spec In Lab Mary Wray SCHOOL BUS OPERATOR HEMATOLOGY ORDERABLES Performing Organization Address City/State/[place] [address] (ABNORMAL) Hemogram (05/22/2022 5:04 AM EDT) Analysis Performed At Patho logist Time Signature WBC 7.0 4.0 - 9.[address] [facility] x10(3)/[facility] LABORATORY RBC 4.69 4.00 - [facility] 5.21 [facility] x10(6)/[facility] LABORATORY Hemoglobin 13.6 11.7 - [facility] 15.5 g/dL [facility] Hematocrit 41.1 35.7 [facility] 45.8 % [facility] MCV 87.6 82.6 - [facility] 94.4 [facility] LABORATORY MCH 29.0 27.1 [facility] 32.0 pg [facility] MCHC 33.1 31.7 - [facility] 35.0 g/dL [facility] Platelets 314 145 - [address] [facility] x10(3)/[facility] LABORATORY RDWSD 47.2 (H) 37.0 - [facility] 46.0 [facility] LABORATORY RDWCV 14.6 (H) 11.5 - [facility] 14.1 % [facility] MPV 10.1 7.6 - 12.9 [facility] LABORATORY nRBC % Auto 0.0 % [facility] nRBC Abs Auto 0.000 0.000 - [facility] 0.000 [facility] x10(3)/[facility] LABORATORY Specimen Anatomical Collection Method Collection Time Receive d Time (Source) Location / / Volume Laterality Blood 05/22/2022 5:04 AM 2 5:14 EDT AM EDT Resulting Agency Comment Spec In Lab Mary Wray APRN HEMATOLOGY ORDERABLES Performing Organization Address City/State/ZIP Code Phon e Number [address] Magnesium (05/22/2022 5:04 AM EDT) athologist Signature Magnesium 1.03 0.69 - 1.[address] [facility] mmol/L [facility] Specimen Anatomical Collection Method Collection Time Receive d Time (Source) Location / / Volume Laterality Blood 05/22/2022 5:04 AM 5:14 EDT AM EDT Resulting Agency Comment Spec In Lab Mary Wray APRN CHEMISTRY ORDERABLES Performing Organization Address City/[facility]/ZIP Code Phon e Number [address] (ABNORMAL) BMP w/fasting Glucose (05/22/2022 5:04 AM EDT) athologist Signature Glucose 138 (H) 65 - [address] [facility] Fasting mg/dL [facility] Comment: ?Fasting* Glucose Interpretive C [...] of Diabetes Mellitus, Position Statement from the [place] [employer]. ??Diabete s Care, Volume 33, Supplement 1, Oct 2009 BUN 24 (H) 8 - 18 mg/dL [facility] Creatinine 0.84 0.70 - 1.20 mg/dL [facility] Sodium 138 135 - 145 mmol/L [facility] Potassium 4.5 3.5 - 5.0 mmol/L [facility] Comment: Please note: ??Patients with WBC >100,00 0 may have falsely elevated Potassium levels. ??For accurate Potassium quantif ication in these patients send serum separator tube (gold top) for subsequent determinations. ??Contact the Clinical Chemistry Laboratory if there are any qu estions. Chloride 103 98 - 107 mmol/L [facility] CO2 25 22 - 31 mmol/L [facility] Anion Gap 10 5 - 15 mmol/L [facility] Calcium 8.6 8.5 - 10.5 mg/dL [facility] Estimated GFR 87 >=60 mL/min/1.73 m?? [facility] Comment: This patient's estimated GFR was [...] Organization Address City/State/[place] [address] POCT Glucose (05/21/2022 7:34 PM EDT) P athologist Signature POC Glucose 139 65 - [address] [facility] mg/dL [facility] Comment: Supplemental ranges: <140 mg/dL before meals <180 mg/dL all other times of the day Specimen Anatomical Collection Method Collection Time Receive d Time (Source) Location / / Volume Laterality Blood 05/21/2022 7:34 PM 2 7:34 EDT PM EDT Hernán Mariscal MD POINT OF CARE TEST ORDERABLE S Performing Organization Address City/State/Z[place] [address] POCT Glucose (05/21/2022 4:37 PM EDT) athologist Signature POC Glucose 119 65 - 199 [place] mg/dL [facility] Comment: Supplemental ranges: <140 mg/dL before meals <180 mg/dL all other times of the day Specimen Anatomical Collection Method Collection Time Receive d Time (Source) Location / / Volume Laterality Blood 05/21/2022 4:37 PM 4:37 EDT PM EDT Hernán Mariscal MD POINT OF CARE TEST ORDERABLE S Performing Organization Address City/State/ZIP Code Phon e Number [address] POCT Glucose (05/21/2022 12:34 PM EDT) athologist Signature POC Glucose 151 65 - 199 [place] mg/dL [facility] Comment: Supplemental ranges: <140 mg/dL before meals <180 mg/dL all other times of the day Specimen Anatomical Collection Method Collection Time Receive d Time (Source) Location / / Volume Laterality Blood 05/21/2022 12:34 05/21/2022 PM EDT 12:34 PM EDT Hernán Mariscal MD POINT OF CARE TEST ORDERABLE S Performing Organization Address City/State/ZIP [place] [address] (ABNORMAL) POCT Glucose (05/21/2022 11:03 AM EDT) athologist Signature POC Glucose 225 (H) 65 - 199 [place] mg/dL [facility] Comment: Supplemental ranges: <140 mg/dL before meals <180 mg/dL all other times of the day Specimen Anatomical Collection Method Collection Time Receive d Time (Source) Location / / Volume Laterality Blood 05/21/2022 11:03 05/21/2022 AM EDT 11:03 AM EDT Hernán Mariscal MD POINT OF CARE TEST ORDERABLE S Performing Organization Address City/State/ZIP [place] [address] (ABNORMAL) POCT Glucose (05/21/2022 9:48 AM EDT) P athologist Signature POC Glucose 224 (H) 65 - 199 [facility] mg/dL [facility] Comment: Supplemental ranges: <140 mg/dL before meals <180 mg/dL all other times of the day Specimen Anatomical Collection Method Collection Time Receive d Time (Source) Location / / Volume Laterality Blood 05/21/2022 9:48 AM 2 9:48 EDT AM EDT Hernán Mariscal MD POINT OF CARE TEST ORDERABLE S Performing Organization Address City/State/Z[place] [address] POCT Glucose (05/21/2022 7:42 AM EDT) athologist Signature POC Glucose 162 65 - 199 [facility] mg/dL [facility] Comment: Supplemental ranges: <140 mg/dL before meals <180 mg/dL all other times of the day Specimen Anatomical Collection Method Collection Time Receive d Time (Source) Location / / Volume Laterality Blood 05/21/2022 7:42 AM 2 7:42 EDT AM EDT Hernán Mariscal MD POINT OF CARE TEST ORDERABLE S Performing Organization Address City/State/Z[place] [address] EKG 12 Lead (05/21/2022 6:45 AM EDT) Component Value Ref Range Test Analysis Performed Pathologis t Method Time At Signature Ventricular rate 61 BPM MUSE SYSTEM Atrial Rate 61 BPM MUSE SYSTEM P-R Interval 170 ms MUSE SYSTEM QRS Duration 98 ms MUSE SYSTEM Q-T Interval 434 ms MUSE SYSTEM QTC Calculated 436 ms MUSE SYSTEM (Bezet) Calculated P [place] 44 degrees MUSE SYSTEM Calculated R [place] 82 degrees MUSE SYSTEM Calculated T [place] 101 degrees MUSE SYSTEM INTERPRETATION Normal sinus rhythm MUSE SYSTEM Anterolateral infarct (cited on or before 20-MAY-2022) T wave abnormality, consider lateral ischemia Abnormal ECG When compared with ECG of 20-MAY-2022 05:39, Questionable change in initial forces of Anterolateral leads Confirmed by MD Chrystal, Fabricio Felix ([id number]) on 05/23/2022 1 0:25:58 AM Specimen Anatomical Collection Method Collection Time Receive d Time (Source) Location / / Volume Laterality 05/21/2022 6:45 AM 2 EDT 10:25 AM EDT Mary Wray APRN ECG ORDERABLES Performing Organization Address City/State/ZIP Code Phon e Number MUSE SYSTEM POCT Glucose (05/21/2022 4:53 AM EDT) P athologist Signature POC Glucose 126 65 - [address] [facility] mg/dL [facility] Comment: Supplemental ranges: <140 mg/dL before meals <180 mg/dL all other times of the day Specimen Anatomical Collection Method Collection Time Receive d Time (Source) Location / / Volume Laterality Blood 05/21/2022 4:53 AM 2 4:53 EDT AM EDT Hernán Mariscal MD POINT OF CARE TEST ORDERABLE S Performing Organization Address City/State/Z[place] [address] (ABNORMAL) Differential, Automated (05/21/2022 3:50 AM EDT) [facility] Method Time Signature Neutrophils % 37.8 % [facility] Neutr Abs (ANC) 3.32 1.70 - [facility] 6.10 [facility] x10(3)/[facility] LABORATORY Lymphocytes % 42.4 % [facility] Lymphocytes Abs 3.7 (H) 0.9 - 3.[address] [facility] x10(3)/[facility] [facility] Monocytes % 10.3 % [facility] LABORATORY Monocyte Abs 0.9 0.3 - 0.[address] [facility] x10(3)/[facility] LABORATORY Eosinophils % 8.7 % [facility] Eosinophils Abs 0.8 (H) 0.0 - 0.[address] [facility] x10(3)/[facility] LABORATORY Basophils % 0.6 % [facility] Basophils Abs 0.0 0.0 - 0.[address] [facility] x10(3)/[facility] LABORATORY Immature Gran % 0.20 % [facility]OR[facility] Comment: Immature granulocytes(IG's)percentage an d absolute count will include metamyelocytes, myelocytes, and promyelo cytes. Blood smears from CBCs yielding IG's will be scanned manually for concor dance. If this scan disagrees with the automated IG or if promyelocytes are not ed, a manual differential will be performed. Anaya Gran Abs 0.02 0.00 - 0.04 x10(3)/[facility] MAR Y [facility] LABORATORY Specimen Anatomical Collection Method Collection Time Receive d Time (Source) Location / / Volume Laterality Blood 05/21/2022 3:50 AM 4:13 EDT AM EDT Resulting Agency Comment Spec In Lab Mary Wray APRN HEMATOLOGY ORDERABLES Performing Organization Address City/State/[place] [address] (ABNORMAL) Hemogram (05/21/2022 3:50 AM EDT) Analysis Performed At Patho logist Time Signature WBC 8.8 4.0 - 9.[address] [facility] x10(3)/[facility] LABORATORY RBC 4.83 4.00 - [facility] 5.21 [facility] x10(6)/[facility] LABORATORY Hemoglobin 13.8 11.7 [facility] 15.5 g/dL [facility] LABORATORY Hematocrit 42.9 35.7 - [facility] 45.8 % [facility] LABORATORY MCV 88.8 82.6 - [facility] 94.4 [facility] MCH 28.6 27.1 - [facility] [place] 32.0 pg [facility] LABORATORY MCHC 32.2 31.7 - [facility] 35.0 g/dL [facility] LABORATORY Platelets 318 145 - [address] [facility] x10(3)/[facility] LABORATORY RDWSD 48.4 (H) 37.0 - [facility] [place] 46.0 [facility] LABORATORY RDWCV 14.6 (H) 11.5 - [facility] 14.1 % [facility] LABORATORY MPV 10.2 7.6 - 12.9 [place] [facility] LABORATORY nRBC % Auto 0.0 % [facility] LABORAT[facility] nRBC Abs Auto 0.000 0.000 - [place] [facility] 0.000 [facility] x10(3)/[facility] LABORATORY Specimen Anatomical Collection Method Collection Time Receive d Time (Source) Location / / Volume Laterality Blood 05/21/2022 3:50 AM 2 4:13 EDT AM EDT Resulting Agency Comment Spec In Lab Mary Wray SCHOOL BUS OPERATOR HEMATOLOGY ORDERABLES Performing Organization Address City/[facility]/ZIP Code Phon e Number [address] Magnesium (05/21/2022 3:50 AM EDT) P athologist Signature Magnesium 0.96 0.69 - 1.07 [facility] mmol/L [facility] LABORATORY Specimen Anatomical Collection Method Collection Time Receive d Time (Source) Location / / Volume Laterality Blood 05/21/2022 3:50 AM 2 4:13 EDT AM EDT Resulting Agency Comment Spec In Lab Mary Wray SCHOOL BUS OPERATOR CHEMISTRY ORDERABLES Performing Organization Address City/[facility]/ZIP Code Phon e Number [address] (ABNORMAL) BMP w/fasting Glucose (05/21/2022 3:50 AM EDT) P athologist Signature Glucose 139 (H) 65 - 99 [facility] [place] Fasting mg/dL [facility] LABORATORY Comment: ?Fasting* Glucose Interpretive C [...] of Diabetes Mellitus, Position Statement from the [employer]. ??Diabete s Care, Volume 33, Supplement 1, Oct 2009 BUN 25 (H) 8 - 18 mg/dL [facility] LABORATORY Creatinine 0.85 0.70 - 1.20 mg/dL [facility] LABORATORY Sodium 139 135 - 145 mmol/L [facility] LABORATORY Potassium 4.9 3.5 - 5.0 mmol/L [facility] LABORATORY Comment: Please note: ??Patients with WBC >100,00 0 may have falsely elevated Potassium levels. ??For accurate Potassium quantif ication in these patients send serum separator tube (gold top) for subsequent determinations. ??Contact the Clinical Chemistry Laboratory if there are any qu estions. Chloride 102 98 - 107 mmol/L [facility]OR[facility] CO2 27 22 - 31 mmol/L [facility] Anion Gap 10 5 - 15 mmol/L [facility] LABORATORY Calcium 8.9 8.5 - 10.5 mg/dL [facility] LABORATORY Estimated GFR 86 >=60 mL/min/1.73 m?? [facility] Comment: This patient's estimated GFR was [...] Organization Address City/State/ZIP Code Phon e Number [place] [id number] HOSPITAL LAB[address]ATORY Drive POCT Glucose (05/20/2022 11:31 PM EDT) athologist Signature POC Glucose 107 65 - 199 [place] mg/dL [facility] LABORATORY Comment: Supplemental ranges: <140 mg/dL before meals <180 mg/dL all other times of the day Specimen Anatomical Collection Method Collection Time Receive d Time (Source) Location / / Volume Laterality Blood 05/20/2022 11:31 05/20/2022 PM EDT 11:31 PM EDT Hernán Mariscal MD POINT OF CARE TEST ORDERABLE S Performing Organization Address City/State/ZIP Code Phon e Number [address] POCT Glucose (05/20/2022 8:35 PM EDT) athologist Signature POC Glucose 91 65 - 199 [facility] [place] mg/dL [facility] LABORATORY Comment: Supplemental ranges: <140 mg/dL before meals <180 mg/dL all other times of the day Specimen Anatomical Collection Method Collection Time Receive d Time (Source) Location / / Volume Laterality Blood 05/20/2022 8:35 PM 2 8:35 EDT PM EDT Hernán Mariscal MD POINT OF CARE TEST ORDERABLE S Performing Organization Address City/State/ZIP Code Phon e Number [address] POCT Glucose (05/20/2022 4:24 PM EDT) athologist Signature POC Glucose 93 65 - 199 [place] mg/dL [facility] LABORATORY Comment: Supplemental ranges: <140 mg/dL before meals <180 mg/dL all other times of the day Specimen Anatomical Collection Method Collection Time Receive d Time (Source) Location / / Volume Laterality Blood 05/20/2022 4:24 PM 2 4:24 EDT PM EDT Hernán Mariscal MD POINT OF CARE TEST ORDERABLE S Performing Organization Address City/State/Z[place] [address] POCT Glucose (05/20/2022 11:27 AM EDT) P athologist Signature POC Glucose 144 65 - 199 [facility] Comment: Supplemental ranges: <140 mg/dL before meals <180 mg/dL all other times of the day Specimen Anatomical Collection Method Collection Time Receive d Time (Source) Location / / Volume Laterality Blood 05/20/2022 11:27 05/20/2022 AM EDT 11:27 AM EDT Hernán Mariscal MD POINT OF CARE TEST ORDERABLE S Performing Organization Address City/State/ZIP [place] [address] (ABNORMAL) POCT Glucose (05/20/2022 7:30 AM EDT) athologist Signature POC Glucose 233 (H) 65 - 199 [facility] mg/dL [facility] LABOR[facility]ORY Comment: Supplemental ranges: <140 mg/dL before meals <180 mg/dL all other times of the day Specimen Anatomical Collection Method Collection Time Receive d Time (Source) Location / / Volume Laterality Blood 05/20/2022 7:30 AM 7:30 EDT AM EDT Hernán Mariscal MD POINT OF CARE TEST ORDERABLE S Performing Organization Address City/[facility]/ZIP [place] [address] EKG 12 Lead (05/20/2022 5:39 AM EDT) Component Value Ref Range Test Analysis Performed Pathologis t Method Time At Signature Ventricular rate 66 BPM MUSE SYSTEM Atrial Rate 66 BPM MUSE SYSTEM P-R Interval 170 ms MUSE SYSTEM QRS Duration 90 ms MUSE SYSTEM Q-T Interval 416 ms MUSE SYSTEM QTC Calculated 436 ms MUSE SYSTEM (Bezet) Calculated P [place] 36 degrees MUSE SYSTEM Calculated R [place] 23 degrees MUSE SYSTEM Calculated T [place] 95 degrees MUSE SYSTEM INTERPRETATION Normal sinus rhythm MUSE SYSTEM Septal infarct (cited on or before Nonspecific T wave abnormality Abnormal ECG When compared with ECG of 19-MAY-2022 23:33, No significant change was found I personally reviewed the tracing and edited the fellows int erpretation Confirmed by fellow MD Krishnan Ashley ([id number]) on 05/20/2022 7:30:32 AM Confirmed by MD Garcia Danette ([id number]) on 05/20/2022 8:26:34 AM Specimen Anatomical Collection Method Collection Time Receive d Time (Source) Location / / Volume Laterality 05/20/2022 5:39 AM 2 8:26 EDT AM EDT Mary Menezes Nils SCHOOL BUS OPERATOR ECG ORDERABLES Performing Organization Address City/State/ZIP Code Phon e Number MUSE SYSTEM POCT Glucose (05/20/2022 4:31 AM EDT) P athologist Signature POC Glucose 186 65 - 199 [facility] mg/dL [facility] LAB[facility]ORY Comment: Supplemental ranges: <140 mg/dL before meals <180 mg/dL all other times of the day Specimen Anatomical Collection Method Collection Time Receive d Time (Source) Location / / Volume Laterality Blood 05/20/2022 4:31 AM 2 4:31 EDT AM EDT Tameka Chu MD POINT OF CARE TEST ORDERAB LES Performing Organization Address City/State/ZIP [place] [address] (ABNORMAL) Differential, Automated (05/20/2022 3:40 AM EDT) Patholo gist Method Time Signature Neutrophils % 40.8 % [facility]ORATORY Neutr Abs (ANC) 3.03 1.70 - [facility] 6.10 [facility] x10(3)/[facility] LABORATORY Lymphocytes % 42.5 % [facility]OR[facility] Lymphocytes Abs 3.2 0.9 - 3.[address] [facility] x10(3)/[facility] LABORATORY Monocytes % 8.9 % [facility]OR[facility] Monocyte Abs 0.7 0.3 - 0.[address] [facility] x10(3)/[facility] LABORATORY Eosinophils % 7.0 % [facility] Eosinophils Abs 0.5 (H) 0.0 - 0.[address] [facility] x10(3)/[facility] LABORATORY Basophils % 0.5 % [facility] Basophils Abs 0.0 0.0 - 0.[address] [facility] x10(3)/[facility] LABORATORY Immature Gran % 0.30 % [facility]OR[facility] Comment: Immature granulocytes(IG's)percentage an d absolute count will include metamyelocytes, myelocytes, and promyelo cytes. Blood smears from CBCs yielding IG's will be scanned manually for concor dance. If this scan disagrees with the automated IG or if promyelocytes are not ed, a manual differential will be performed. Anaya Gran Abs 0.02 0.00 - 0.04 x10(3)/[facility] MAR Y [facility] LABORATORY Specimen Anatomical Collection Method Collection Time Receive d Time (Source) Location / / Volume Laterality Blood 05/20/2022 3:40 AM 4:03 EDT AM EDT Resulting Agency Comment Spec In Lab Mary Wray APRN HEMATOLOGY ORDERABLES Performing Organization Address City/State/ZIP [place] [address] (ABNORMAL) Hemogram (05/20/2022 3:40 AM EDT) Analysis Performed At Patho logist Time Signature WBC 7.4 4.0 - 9.[address] [facility] x10(3)/[facility] LABORATORY RBC 4.88 4.00 - [facility] 5.21 [facility] x10(6)/[facility] Hemoglobin 13.9 11.7 - [facility] 15.5 g/dL [facility] Hematocrit 43.7 35.7 - [facility] 45.8 % [facility] LABORATORY MCV 89.5 82.6 - [facility] 94.4 [facility] LABORATORY MCH 28.5 27.1 - [place] 32.0 pg [facility] LABORATORY MCHC 31.8 31.7 - [facility] 35.0 g/dL [facility] LABORATORY Platelets 295 145 - [address] [facility] x10(3)/[facility] LABORATORY RDWSD 49.1 (H) 37.0 - [facility] 46.0 [facility] RDWCV 14.9 (H) 11.5 - [facility] 14.1 % [facility] LABORATORY MPV 10.1 7.6 - 12.9 [facility] nRBC % Auto 0.0 % [place] [facility] LABORATORY nRBC Abs Auto 0.000 0.000 - [place] 0.000 [facility] x10(3)/[facility] LABORATORY Specimen Anatomical Collection Method Collection Time Receive d Time (Source) Location / / Volume Laterality Blood 05/20/2022 3:40 AM 2 4:03 EDT AM EDT Resulting Agency Comment Spec In Lab Mary MarMontanez HEMATOLOGY ORDERABLES Performing Organization Address City/[facility]/ZIP Code Phon e Number [address] (ABNORMAL) Magnesium (05/20/2022 3:40 AM EDT) P athologist Signature Magnesium 1.09 (H) 0.69 - 1.07 [facility] mmol/L [facility] LABORATORY Specimen Anatomical Collection Method Collection Time Receive d Time (Source) Location / / Volume Laterality Blood 05/20/2022 3:40 AM 2 4:03 EDT AM EDT Resulting Agency Comment Spec In Lab Mary MarMaldonadoN CHEMISTRY ORDERABLES Performing Organization Address City/[facility]/ZIP [place] [address] (ABNORMAL) BMP w/fasting Glucose (05/20/2022 3:40 AM EDT) P athologist Signature Glucose 152 (H) 65 - [address] [facility] Fasting mg/dL [facility] LABORATORY Comment: ?Fasting* Glucose Interpretive C [...] of Diabetes Mellitus, Position Statement from the [employer]. ??Diabete s Care, Volume 33, Supplement 1, Oct 2009 BUN 25 (H) 8 - 18 mg/dL [facility] LABORATORY Creatinine 0.77 0.70 - 1.20 mg/dL [facility] LABORATORY Sodium 142 135 - 145 mmol/L [facility] LABORATORY Potassium 5.5 (H) 3.5 - 5.0 mmol/L [facility] LABORATORY Comment: Please note: ??Patients with WBC >100,00 0 may have falsely elevated Potassium levels. ??For accurate Potassium quantif ication in these patients send serum separator tube (gold top) for subsequent determinations. ??Contact the Clinical Chemistry Laboratory if there are any qu estions. Chloride 107 98 - 107 mmol/L [facility] CO2 28 22 - 31 mmol/L [facility] Anion Gap 7 5 - 15 mmol/L [facility] LABORATORY Calcium 9.0 8.5 - 10.5 mg/dL [facility] LABORATORY Estimated GFR 96 >=60 mL/min/1.73 m?? [facility] Comment: This patient's estimated GFR was [...] Agency Comment Spec In Lab Mary Wray SCHOOL BUS OPERATOR CHEMISTRY ORDERABLES Performing Organization Address City/State/[place] [address] POCT Glucose (05/20/2022 3:27 AM EDT) athologist Signature POC Glucose 165 65 - 199 [facility] mg/dL [facility] Comment: Supplemental ranges: <140 mg/dL before meals <180 mg/dL all other times of the day Specimen Anatomical Collection Method Collection Time Receive d Time (Source) Location / / Volume Laterality Blood 05/20/2022 3:27 AM 3:27 EDT AM EDT Tameka Chu MD POINT OF CARE TEST ORDERAB LES Performing Organization Address City/State/ZIP Code Phon e Number [address] POCT Glucose (05/20/2022 12:25 AM EDT) athologist Signature POC Glucose 137 65 - 199 [facility] mg/dL [facility] Comment: Supplemental ranges: <140 mg/dL before meals <180 mg/dL all other times of the day Specimen Anatomical Collection Method Collection Time Receive d Time (Source) Location / / Volume Laterality Blood 05/20/2022 12:25 05/20/2022 AM EDT 12:25 AM EDT Tameka Chu MD POINT OF CARE TEST ORDERAB LES Performing Organization Address City/[facility]/ZIP Code Phon e Number [address] EKG 12 Lead (05/19/2022 11:33 PM EDT) Component Value Ref Range Test Analysis Performed Pathologis t Method Time At Signature Ventricular rate 66 BPM MUSE SYSTEM Atrial Rate 66 BPM MUSE SYSTEM P-R Interval 162 ms MUSE SYSTEM QRS Duration 90 ms MUSE SYSTEM Q-T Interval 396 ms MUSE SYSTEM QTC Calculated 415 ms MUSE SYSTEM (Bezet) Calculated P [place] 44 degrees MUSE SYSTEM Calculated R [place] 59 degrees MUSE SYSTEM Calculated T [place] 103 degrees MUSE SYSTEM INTERPRETATION Normal sinus rhythm MUSE SYSTEM Poor R wave progression T wave abnormality Lateral leads Abnormal ECG When compared with ECG of 19-MAY-2022 05:59, No significant change was found I personally reviewed the tracing and edited the fellows int erpretation Confirmed by fellow MD Eulogio, Gita ([id number]) on 05/20/2022 9:02:34 AM Confirmed by MD LAO SALVATORE ([id number]) on 05/20/2022 9:12:22 AM Specimen Anatomical Collection Method Collection Time Receive d Time (Source) Location / / Volume Laterality 05/19/2022 11:33 05/20/2022 9:12 PM EDT AM EDT Tameka Chu MD ECG ORDERABLES Performing Organization Address City/State/ZIP Code Phon e Number MUSE SYSTEM POCT Glucose (05/19/2022 8:35 PM EDT) athologist Signature POC Glucose 145 65 - 199 [place] mg/dL [facility] LAB[facility] Comment: Supplemental ranges: <140 mg/dL before meals <180 mg/dL all other times of the day Specimen Anatomical Collection Method Collection Time Receive d Time (Source) Location / / Volume Laterality Blood 05/19/2022 8:35 PM 2 8:35 EDT PM EDT Tameka Chu MD POINT OF CARE TEST ORDERAB LES Performing Organization Address City/State/ZIP Code Phon e Number [address] POCT Glucose (05/19/2022 6:07 PM EDT) athologist Signature POC Glucose 130 65 - 199 [place] mg/dL [facility] Comment: Supplemental ranges: <140 mg/dL before meals <180 mg/dL all other times of the day Specimen Anatomical Collection Method Collection Time Receive d Time (Source) Location / / Volume Laterality Blood 05/19/2022 6:07 PM 2 6:07 EDT PM EDT Tameka Chu MD POINT OF CARE TEST ORDERAB LES Performing Organization Address City/State/ZIP Code Phon e Number [address] POCT Glucose (05/19/2022 12:41 PM EDT) athologist Signature POC Glucose 144 65 - 199 [place] mg/dL [facility] Comment: Supplemental ranges: <140 mg/dL before meals <180 mg/dL all other times of the day Specimen Anatomical Collection Method Collection Time Receive d Time (Source) Location / / Volume Laterality Blood 05/19/2022 12:41 05/19/2022 PM EDT 12:41 PM EDT Tameka Chu MD POINT OF CARE TEST ORDERAB LES Performing Organization Address City/State/ZIP [place] [address] CARDIAC CATHETERIZATION (05/19/2022 10:17 AM EDT) Anatomical Region Laterality Modality Other Specimen (Source) Anatomical Location Collection Method / Collectio n Time Received Time / Laterality Volume Narrative 05/19/2022 10:29 AM EDT ?[facility] ? Cardiac Cathete rization/Intervention Report ? Patient Name: Sho, Aracelis ? Procedure Date: 05/19/2022 ? A #: [id number] ? Primary Physician: Khalida Otero I ? Case #: [id number] ? File Name: [id number] ? Catheterization Order Number: [id number] ? [facility] ? Final Report [place], [place] ? Patient Name: ? Aracelis Sho ? ID#: ?[id number] ? : ?1975 ? Procedure Date: ? May 19, 2022 ?Case #: ? [id number] ? Room: ? 1 ? Case Physician: ? Khalida morgan M.D. ? Start: ?09:55 ?Fellow: ? Tai Freire , D.O. ?Admission: ??05/17/2022 ?Kaveh fragoso M.D. ? Procedures: ?* Right Heart Catheterization ?* Oximetry ? History ?Aracelis Sho is a 46 [...] designated as A SA Class III. The [facility] clinical frailty ?scale is 3: Managing Well. [...] procedure was Urgent. The indication for ?the forestry laborer visit is cardiomyo julian. Chest pain symptom [...] POC Glucose 235 (H) 65 - [address] [facility] mg/dL [facility] LABOR[facility]ORY Comment: Supplemental ranges: <140 mg/dL before meals <180 mg/dL all other times of the day Specimen Anatomical Collection Method Collection Time Receive d Time (Source) Location / / Volume Laterality Blood 05/19/2022 7:31 AM 7:31 EDT AM EDT Tameka Chu MD POINT OF CARE TEST ORDERAB LES Performing Organization Address City/State/[place] [address] EKG 12 Lead (05/19/2022 5:59 AM EDT) Component Value Ref Range Test Analysis Performed Pathologis t Method Time At Signature Ventricular rate 74 BPM MUSE SYSTEM Atrial Rate 74 BPM MUSE SYSTEM P-R Interval 170 ms MUSE SYSTEM QRS Duration 92 ms MUSE SYSTEM Q-T Interval 422 ms MUSE SYSTEM QTC Calculated 468 ms MUSE SYSTEM (Bezet) Calculated P [place] 35 degrees MUSE SYSTEM Calculated R [place] 58 degrees MUSE SYSTEM Calculated T [place] 96 degrees MUSE SYSTEM INTERPRETATION Normal sinus rhythm MUSE SYSTEM Septal infarct (cited on or before 18-MAY-2022) ST & T wave abnormality, consider anterolateral ischemia Abnormal ECG When compared with ECG of 18-MAY-2022 19:05, (unconfirmed) Nonspecific T wave abnormality now evident in Anterior leads I personally reviewed the tracing and edited the fellows int erpretation Confirmed by fellow MD Eulogio, Gita ([id number]) on 05/19/2022 7:24:01 PM Confirmed by MD Jose, Yumi ([id number]) on 05/20/2022 8:25:01 AM Specimen Anatomical Collection Method Collection Time Receive d Time (Source) Location / / Volume Laterality 05/19/2022 5:59 AM 2 8:25 EDT AM EDT Mary Wray SCHOOL BUS OPERATOR ECG ORDERABLES Performing Organization Address City/[facility]/ZIP Code Phon e Number MUSE SYSTEM (ABNORMAL) POCT Glucose (05/19/2022 4:10 AM EDT) P athologist Signature POC Glucose 250 (H) 65 - [address] [facility] mg/dL [facility]ORY Comment: Supplemental ranges: <140 mg/dL before meals <180 mg/dL all other times of the day Specimen Anatomical Collection Method Collection Time Receive d Time (Source) Location / / Volume Laterality Blood 05/19/2022 4:10 AM 2 4:10 EDT AM EDT Tameka Chu MD POINT OF CARE TEST ORDERAB LES Performing Organization Address City/State/[place] [address] (ABNORMAL) Differential, Automated (05/19/2022 3:33 AM EDT) Patholo gist Method Time Signature Neutrophils % 44.3 % [facility] Neutr Abs (ANC) 3.06 1.70 - [facility] 6.10 [facility] x10(3)/[facility] LABORATORY Lymphocytes % 39.4 % [facility] Lymphocytes Abs 2.7 0.9 - 3.[address] [facility] x10(3)/[facility] LABORATORY Monocytes % 8.4 % [facility] Monocyte Abs 0.6 0.3 - 0.[address] [facility] x10(3)/[facility] LABORATORY Eosinophils % 7.4 % [facility] Eosinophils Abs 0.5 (H) 0.0 - 0.[address] [facility] x10(3)/[facility] LABORATORY Basophils % 0.4 % [facility] Basophils Abs 0.0 0.0 - 0.[address] [facility] x10(3)/[facility] LABORATORY Immature Gran % 0.10 % [facility] Comment: Immature granulocytes(IG's)percentage an d absolute count will include metamyelocytes, myelocytes, and promyelo cytes. Blood smears from CBCs yielding IG's will be scanned manually for concor dance. If this scan disagrees with the automated IG or if promyelocytes are not ed, a manual differential will be performed. Aanya Gran Abs 0.01 0.00 - 0.04 x10(3)/[facility] MAR Y [facility] LABORATORY Specimen Anatomical Collection Method Collection Time Receive d Time (Source) Location / / Volume Laterality Blood 05/19/2022 3:33 AM 4:03 EDT AM EDT Resulting Agency Comment Spec In Lab Mary Wray APRN HEMATOLOGY ORDERABLES Performing Organization Address City/State/[place] [address] (ABNORMAL) Hemogram (05/19/2022 3:33 AM EDT) Analysis Performed At Patho logist Time Signature WBC 6.9 4.0 - 9.[address] [facility] x10(3)/[facility] LABORATORY RBC 4.70 4.00 - [facility] 5.21 [facility] x10(6)/[facility] LABORATORY Hemoglobin 13.9 11.7 - [facility] 15.5 g/dL [facility] LABORATORY Hematocrit 42.7 35.7 - [facility] 45.8 % [facility] LABORATORY MCV 90.9 82.6 - [facility] 94.4 fL [facility] LABORATORY MCH 29.6 27.1 - [facility] 32.0 pg [facility] LABORATORY MCHC 32.6 31.7 - [facility] 35.0 g/dL [facility] LABORATORY Platelets 300 145 - 357 [place] x10(3)/[facility] LABORATORY RDWSD 49.9 (H) 37.0 - [place] 46.0 [facility] LABORATORY RDWCV 15.0 (H) 11.5 - [facility] [place] 14.1 % [facility] LABORATORY MPV 10.2 7.6 - 12.9 [facility] LABORATORY nRBC % Auto 0.0 % [facility] LABORATORY nRBC Abs Auto 0.000 0.000 - [facility] 0.000 [facility] x10(3)/[facility] LABORATORY Specimen Anatomical Collection Method Collection Time Receive d Time (Source) Location / / Volume Laterality Blood 05/19/2022 3:33 AM 2 4:03 EDT AM EDT Resulting Agency Comment Spec In Lab Mary Wray APRN HEMATOLOGY ORDERABLES Performing Organization Address City/State/ZIP Code Phon e Number [address] (ABNORMAL) Magnesium (05/19/2022 3:33 AM EDT) P athologist Signature Magnesium 1.17 (H) 0.69 - 1.07 [facility] [place] mmol/L [facility] LABORATORY Specimen Anatomical Collection Method Collection Time Receive d Time (Source) Location / / Volume Laterality Blood 05/19/2022 3:33 AM 2 4:03 EDT AM EDT Resulting Agency Comment Spec In Lab Mary Wray APRN CHEMISTRY ORDERABLES Performing Organization Address City/State/ZIP Code Phon e Number [address] (ABNORMAL) BMP w/fasting Glucose (05/19/2022 3:33 AM EDT) P athologist Signature Glucose 268 (H) 65 - [address] [address] F[facility] mg/dL [facility] LABORATORY Comment: ?Fasting* Glucose Interpretive C [...] of Diabetes Mellitus, Position Statement from the [employer]. ??Diabete s Care, Volume 33, Supplement 1, Oct 2009 BUN 19 (H) 8 - 18 mg/dL [facility] LABORATORY Creatinine 0.83 0.70 - 1.20 mg/dL [facility] LABORATORY Sodium 142 135 - 145 mmol/L [facility] LABORATORY Comment: result rechecked-[place] Potassium 4.8 3.5 - 5.0 mmol/L [facility] LABORATORY Comment: result rechecked-KS Please note: ??Patients with WBC >100,00 0 may have falsely elevated Potassium levels. ??For accurate Potassium quantif ication in these patients send serum separator tube (gold top) for subsequent determinations. ??Contact the Clinical Chemistry Laboratory if there are any qu estions. Chloride 106 98 - 107 mmol/L [facility] LABORATORY Comment: result rechecked-KS CO2 29 22 - 31 mmol/L [facility] LABORATORY Anion Gap 7 5 - 15 mmol/L [facility] LABORATORY Calcium 8.5 8.5 - 10.5 mg/dL [facility] LABORATORY Estimated GFR 88 >=60 mL/min/1.73 m?? [facility] LABORATORY Comment: This patient's estimated GFR was [...] Wray APRN CHEMISTRY ORDERABLES Performing Organization Address City/[facility]/ZIP [facility] Phon e Number [address] POCT Glucose (05/19/2022 12:15 AM EDT) athologist Signature POC Glucose 147 65 - 199 [facility] [place] mg/dL [facility] LABORATORY Comment: Supplemental ranges: <140 mg/dL before meals <180 mg/dL all other times of the day Specimen Anatomical Collection Method Collection Time Receive d Time (Source) Location / / Volume Laterality Blood 05/19/2022 12:15 05/19/2022 AM EDT 12:15 AM EDT Tameka Chu MD POINT OF CARE TEST ORDERAB LES Performing Organization Address City/[facility]/ZIP [facility] [place] [address] SCAN DOC: TAVERN CAR ATTENDANT (05/19/2022 12:00 AM EDT) Anatomical Region Laterality Modality Other Narrative 05/19/2022 12:00 AM EDT This result has an attachment that is no t available. Ordered by an unspecified provider. Scanning Provider MEDIA MGR SCAN EXT ORDR/RSLT POCT Glucose (05/18/2022 8:21 PM EDT) athologist Signature POC Glucose 184 65 - 199 [place] mg/dL [facility] LABORATORY Comment: Supplemental ranges: <140 mg/dL before meals <180 mg/dL all other times of the day Specimen Anatomical Collection Method Collection Time Receive d Time (Source) Location / / Volume Laterality Blood 05/18/2022 8:21 PM 2 8:21 EDT PM EDT Tameka Chu MD POINT OF CARE TEST ORDERAB LES Performing Organization Address City/[facility]/ZIP Code Phon e Number [address] POCT Glucose (05/18/2022 4:04 PM EDT) athologist Signature POC Glucose 99 65 - 199 [facility] mg/dL [facility] LABORATORY Comment: Supplemental ranges: <140 mg/dL before meals <180 mg/dL all other times of the day Specimen Anatomical Collection Method Collection Time Receive d Time (Source) Location / / Volume Laterality Blood 05/18/2022 4:04 PM 2 4:04 EDT PM EDT Tameka Chu MD POINT OF CARE TEST ORDERAB LES Performing Organization Address [facility] Phon e Number [address] EKG 12 Lead (05/18/2022 3:40 PM EDT) Component Value Ref Range Test Analysis Performed Pathologis t Method Time At Signature Ventricular rate 65 BPM MUSE SYSTEM Atrial Rate 65 BPM MUSE SYSTEM P-R Interval 164 ms MUSE SYSTEM QRS Duration 90 ms MUSE SYSTEM Q-T Interval 402 ms MUSE SYSTEM QTC Calculated 418 ms MUSE SYSTEM (Bezet) Calculated P F[place] 34 degrees MUSE SYSTEM Calculated R [place] 42 degrees MUSE SYSTEM Calculated T [place] 105 degrees MUSE SYSTEM INTERPRETATION Normal sinus rhythm MUSE SYSTEM Anteroseptal infarct (cited on or before 18-MAY-2022) Possible Lateral infarct , age undetermined Abnormal ECG When compared with ECG of 18-MAY-2022 04:40, Borderline criteria for Lateral infarct are now Present Nonspecific T wave abnormality, worse in Lateral leads Confirmed by MD Garcia Danette ([id number]) on 05/19/2022 7:34:15 AM Specimen Anatomical Collection Method Collection Time Receive d Time (Source) Location / / Volume Laterality 05/18/2022 3:40 PM 2 7:34 EDT AM EDT Mary Wray APRN ECG ORDERABLES Performing Organization Address [facility]/ZIP Code Phon e Number MUSE SYSTEM [...] collapsed. Electronically signed by: Marc Rivera, Radiology [place] ([phone]), at 3:07 PM Thank you for letting us participate in the care of this patient. If you are a [facility] er and have any questions regarding this report, please contact the number above. For patients who have ques tions, please contact the [facility] professio nal that requested your imaging first. ?Billie Juan, [facility] Chief Electronically Signed Final Report ?? 03:13 pm Narrative 05/18/2022 3:13 PM EDT Abdominal ? (Signed Final 05/18/2022 03:13 pm) PATIENT INFO: ID #: ? [id number] ?: ??[birth year] (46 yrs)(F) Name: ? ARACELIS SHO ? Visit Date: 05/18/2022 02:50 pm PERFORMED BY: Performed By: ? Aubrey Lopez RDMS Attending: ?Billie Juan MD Referred By: ?PATY BUENO Location: ? [place] SERVICE(S) PROVIDED: UABDLIM - Abdominal Limited Survey Sing le ? [id number] Organ or Quadrant - [id number] URETRO - Retroperiteneal Complete - IMG 3517 ? [id number] INDICATIONS: RUQ pain, r/o cholelithiasis/cholecysti its, Add [...] ORDERABLES POCT Glucose (05/18/2022 11:16 AM EDT) P athologist Signature POC Glucose 152 65 - [address] [facility] mg/dL [facility] LABORATORY Comment: Supplemental ranges: <140 mg/dL before meals <180 mg/dL all other times of the day Specimen Anatomical Collection Method Collection Time Receive d Time (Source) Location / / Volume Laterality Blood 05/18/2022 11:16 05/18/2022 AM EDT 11:16 AM EDT Tameka Chu MD POINT OF CARE TEST ORDERAB LES Performing Organization Address City/[facility]/ZIP [place] [address] (ABNORMAL) POCT Glucose (05/18/2022 8:02 AM EDT) P athologist Signature POC Glucose 235 (H) 65 - 199 [facility] mg/dL [facility] LABORATORY Comment: Supplemental ranges: <140 mg/dL before meals <180 mg/dL all other times of the day Specimen Anatomical Collection Method Collection Time Receive d Time (Source) Location / / Volume Laterality Blood 05/18/2022 8:02 AM 2 8:02 EDT AM EDT Tameka Chu MD POINT OF CARE TEST ORDERAB LES Performing Organization Address City/[facility]/ZIP [place] [address] POCT Glucose (05/18/2022 6:34 AM EDT) P athologist Signature POC Glucose 191 65 - 199 [facility] Comment: Supplemental ranges: <140 mg/dL before meals <180 mg/dL all other times of the day Specimen Anatomical Collection Method Collection Time Receive d Time (Source) Location / / Volume Laterality Blood 05/18/2022 6:34 AM 2 6:34 EDT AM EDT Tameka Chu MD POINT OF CARE TEST ORDERAB LES Performing Organization Address City/[facility]/ZIP [place] [address] EKG 12 Lead (05/18/2022 4:40 AM EDT) Component Value Ref Range Test Analysis Performed Pathologis t Method Time At Signature Ventricular rate 76 BPM MUSE SYSTEM Atrial Rate 76 BPM MUSE SYSTEM P-R Interval 180 ms MUSE SYSTEM QRS Duration 88 ms MUSE SYSTEM Q-T Interval 400 ms MUSE SYSTEM QTC Calculated 450 ms MUSE SYSTEM (Bezet) Calculated P [place] 31 degrees MUSE SYSTEM Calculated R [place] 74 degrees MUSE SYSTEM Calculated T [place] 97 degrees MUSE SYSTEM INTERPRETATION Normal sinus [...] Hemoglobin A1C 6.0 (H) 4.3 - 5.6 [facility] LABORATORY Comment: Reference Range: 4.3 - [...] Mellitus, Diabetes Care 2013; 36: Suppl. 1, S67-74 Est Avg Gluc 127 mg/dL [facility] LABORATORY Comment: eAG equivalents for HbA1c percentages: HbA1c(%) ?eAG(mg/dL) 6.0 ?126 6.5 ?140 7.0 ?154 7.5 ?169 8.0 ?183 8.5 ?197 9.0 ?212 9.5 ?226 10.0 ? 240 Limitations: The eAG calculation has not been validated on women, individuals below 18 years old and above 70 years old, and individuals with hemoglobinopathies. Additional resources are available on [facility] website. Arnel TSE, Louis J, Anthony R, et al. ??Tr anslating the A1C assay into estimated average glucose values. ??Diabetes Care 2008:31(8):9733-2726. Specimen Anatomical Collection Method Collection Time Receive d Time (Source) Location / / Volume Laterality Blood Venous Draw / 05/17/2022 8:12 PM 05/18/20 22 Unknown EDT 10:02 AM EDT Resulting Agency Comment Spec In Lab Mary Wray APRN CHEMISTRY ORDERABLES Performing Organization Address City/[facility]/ZIP [place] [address] (ABNORMAL) Hepatic Function Panel (05/17/2022 8:12 PM EDT) P athologist Signature Total Protein 6.5 6.1 - 8.0 [facility] [place] g/dL [facility] LABORATORY Albumin 3.7 3.2 - 5.2 [place] g/dL [facility] LABOR[facility] AST 18 0 - 30 [place] unit/L [facility] ALT 16 0 - 30 [place] [place] unit/L [facility] Alk Phos 118 (H) 35 - 105 [facility] [place] unit/L [facility] Total 0.4 0.2 - 1.3 [place] Bilirubin mg/dL [facility] LABOR[facility] Bili, Direct 0.1 0.0 - 0.3 [place] mg/dL [facility] LABORATORY Specimen Anatomical Collection Method Collection Time Receive d Time (Source) Location / / Volume Laterality Blood Venous Draw / 05/17/2022 8:12 PM 05/17/20 8:18 Unknown EDT PM EDT Resulting Agency Comment Spec In Lab Paty Bueno MD CHEMISTRY ORDERABLES Performing Organization Address City/[facility]/ZIP [facility] [place] [address] Scan, Peripheral Blood (05/17/2022 8:12 PM EDT) Patholo gist Method Time Signature Plat Estimate Normal [facility] RBC Morphology Normal [facility] Giant Platelets Less than /HPF [address] LABORATORY Specimen Anatomical Collection Method Collection Time Receive d Time (Source) Location / / Volume Laterality Blood 05/17/2022 8:12 PM 8:18 EDT PM EDT Resulting Agency Comment Spec In Lab Paty Bueno MD HEMATOLOGY ORDERABLES Performing Organization Address City/State/[place] [address] (ABNORMAL) Differential, Automated (05/17/2022 8:12 PM EDT) [facility] Method Time Signature Neutrophils % 45.1 % [facility] LABORATORY Neutr Abs (ANC) 4.40 1.70 - [facility] 6.10 [facility] x10(3)/[facility] LABORATORY Lymphocytes % 42.7 % [facility] Lymphocytes Abs 4.2 (H) 0.9 - 3.[address] [facility] x10(3)/[facility] LABORATORY Monocytes % 6.9 % [facility]ORATORY Monocyte Abs 0.7 0.3 - 0.[address] [facility] x10(3)/[facility] LABORATORY Eosinophils % 4.9 % [facility] Eosinophils Abs 0.5 (H) 0.0 - 0.[address] [facility] x10(3)/[facility] LABORATORY Basophils % 0.2 % [facility]OR[facility]ORY Basophils Abs 0.0 0.0 - 0.[address] [facility] x10(3)/[facility] LABORATORY Immature Gran % 0.20 % [facility] LABORATORY Comment: Immature granulocytes(IG's)percentage an d absolute count will include metamyelocytes, myelocytes, and promyelo cytes. Blood smears from CBCs yielding IG's will be scanned manually for concor dance. If this scan disagrees with the automated IG or if promyelocytes are not ed, a manual differential will be performed. Anaya Gran Abs 0.02 0.00 - 0.04 x10(3)/[facility] MAR Y [facility] LABORATORY Specimen Anatomical Collection Method Collection Time Receive d Time (Source) Location / / Volume Laterality Blood 05/17/2022 8:12 PM 2 8:18 EDT PM EDT Resulting Agency Comment Spec In Lab Paty Bueno MD HEMATOLOGY ORDERABLES Performing Organization Address City/State/[place] [address] (ABNORMAL) Hemogram (05/17/2022 8:12 PM EDT) Analysis Performed At Patho logist Time Signature WBC 9.8 (H) 4.0 - 9.5 [facility] x10(3)/[facility] LABORATORY RBC 5.26 (H) 4.00 - [place] 5.21 [facility] x10(6)/[facility] LABORATORY Hemoglobin 15.1 11.7 - [facility] [place] 15.5 g/dL [facility] LABORATORY Hematocrit 44.9 35.7 - [facility] [place] 45.8 % [facility] LABORATORY MCV 85.4 82.6 - [facility] [place] 94.4 [facility] LABORATORY MCH 28.7 27.1 - [employer] 32.0 pg [facility] LABORATORY MCHC 33.6 31.7 - [facility] [place] 35.0 g/dL [facility] LABORATORY Platelets 319 145 - 357 [facility] x10(3)/[facility] LABORATORY RDWSD 45.2 37.0 - [facility] [place] 46.0 [facility] LABORATORY RDWCV 14.6 (H) 11.5 - [facility] [place] 14.1 % [facility] LABORATORY MPV 9.8 7.6 - 12.9 [facility] nRBC % Auto 0.0 % [facility] LABORATORY nRBC Abs Auto 0.000 0.000 - [facility] [place] 0.000 [facility] x10(3)/[facility] LABORATORY Specimen Anatomical Collection Method Collection Time Receive d Time (Source) Location / / Volume Laterality Blood 05/17/2022 8:12 PM 2 8:18 EDT PM EDT Resulting Agency Comment Spec In Lab Paty Bueno MD HEMATOLOGY ORDERABLES Performing Organization Address City/State/[place] [address] (ABNORMAL) pro-Brain Natriuretic Peptide (05/17/2022 8:12 PM EDT) athologist Signature ProBNP 186 (H) <=124 pg/mL [facility] LABORATORY Specimen Anatomical Collection Method Collection Time Receive d Time (Source) Location / / Volume Laterality Blood 05/17/2022 8:12 PM 2 8:17 EDT PM EDT Resulting Agency Comment Spec In Lab Paty Bueno MD CHEMISTRY ORDERABLES Performing Organization Address City/State/ZIP Code Phon e Number [address] Magnesium (05/17/2022 8:12 PM EDT) athologist Signature Magnesium 1.00 0.69 - 1.[address] [facility] mmol/L [facility] LABORATORY Specimen Anatomical Collection Method Collection Time Receive d Time (Source) Location / / Volume Laterality Blood 05/17/2022 8:12 PM 2 8:17 EDT PM EDT Resulting Agency Comment Spec In Lab Paty Bueno MD CHEMISTRY ORDERABLES Performing Organization Address City/State/ZIP Code Phon e Number [address] (ABNORMAL) BMP w/fasting Glucose (05/17/2022 8:12 PM EDT) athologist Signature Glucose 119 (H) 65 - [address] [facility] Fasting mg/dL [facility]OR[facility]ORY Comment: ?Fasting* Glucose Interpretive C [...] of Diabetes Mellitus, Position Statement from the [place] Diabetes [employer]. ??Diabete s Care, Volume 33, Supplement 1, Oct 2009 BUN 15 8 - 18 mg/dL [facility] LABORATORY Creatinine 0.68 (L) 0.70 - 1.20 mg/dL [facility] LABORATORY Sodium 140 135 - 145 mmol/L [facility] LABORATORY Potassium 3.5 3.5 - 5.0 mmol/L [facility] LABORATORY Comment: Please note: ??Patients with WBC >100,00 0 may have falsely elevated Potassium levels. ??For accurate Potassium quantif ication in these patients send serum separator tube (gold top) for subsequent determinations. ??Contact the Clinical Chemistry Laboratory if there are any qu estions. Chloride 102 98 - 107 mmol/L [facility]OR[facility] CO2 26 22 - 31 mmol/L [facility] Anion Gap 12 5 - 15 mmol/L [facility] LABORATORY Calcium 8.6 8.5 - 10.5 mg/dL [facility] LABORATORY Estimated GFR 109 >=60 mL/min/1.73 m?? [facility] Comment: This patient's estimated GFR was [...] Organization Address City/State/[place] [address] POCT Glucose (05/17/2022 6:38 PM EDT) athologist Signature POC Glucose 89 65 - 199 [facility] mg/dL [facility] Comment: Supplemental ranges: <140 mg/dL before meals <180 mg/dL all other times of the day Specimen Anatomical Collection Method Collection Time Receive d Time (Source) Location / / Volume Laterality Blood 05/17/2022 6:38 PM 2 6:38 EDT PM EDT Rafi Barrett MD POINT OF CARE TEST ORDERABLE S Performing Organization Address City/[facility]/ZIP Code Phon e Number [address] POCT Glucose (05/17/2022 5:46 PM EDT) athologist Signature POC Glucose 75 65 - 199 [facility] mg/dL [facility] Comment: Supplemental ranges: <140 mg/dL before meals <180 mg/dL all other times of the day Specimen Anatomical Collection Method Collection Time Receive d Time (Source) Location / / Volume Laterality Blood 05/17/2022 5:46 PM 2 5:46 EDT PM EDT Rafi Barrett MD POINT OF CARE TEST ORDERABLE S Performing Organization Address City/[facility]/ZIP [place] [address] EKG 12 Lead (05/17/2022 5:43 PM EDT) Component Value Ref Range Test Analysis Performed Pathologis t Method Time At Signature Ventricular rate 66 BPM MUSE SYSTEM Atrial Rate 66 BPM MUSE SYSTEM P-R Interval 186 ms MUSE SYSTEM QRS Duration 92 ms MUSE SYSTEM Q-T Interval 436 ms MUSE SYSTEM QTC Calculated 457 ms MUSE SYSTEM (Bezet) Calculated P F[place] 29 degrees MUSE SYSTEM Calculated R [place] 49 degrees MUSE SYSTEM Calculated T [place] 85 degrees MUSE SYSTEM INTERPRETATION Normal sinus rhythm MUSE SYSTEM Anteroseptal infarct (cited on or before 17-MAY-2022) Abnormal ECG When compared with ECG of 13-MAY-2022 09:49, Nonspecific T wave abnormality, worse in Anterolateral leads QT has shortened Confirmed by MD Garcia Danette ([id number]) on 05/18/2022 4:25:01 PM Specimen Anatomical Collection [...] Laterality Volume Narrative 05/17/2022 9:24 PM EDT ?[facility] ? Cardiac Cathete rization/Intervention Report ? Patient Name: Sho, Aracelis ? Procedure Date: 05/17/2022 ? A #: [id number] ? Primary Physician: Rafi Barrett ? Case #: [id number] ? File Name: [id number] ? Catheterization Order Number: [id number] ? [facility] ? Final Report [place], [place] ? Patient Name: ? Aracelis Sho ? ID#: ?[id number] ? : ?1975 ? Procedure Date: ? May 17, 2022 ?Case #: ? [id number] ? Room: ? 6 ? Case Physician: ? Rafi Barrett M.D. ?Start: ?14:44 ?Fellow: ? Tai Freire D.O. ?Admission: ??05/17/2022 ? Referring Physician: ??Guanakito V Singleton, M .D. ? Procedures: ?* Coronary Angiography ?* Coronary Optical Coherence To mography ?* Coronary Stent Insertion ? 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 She has hypertension. The patient's ?smoking status [...] procedure was Elective. The indication for ?the forestry laborer visit is worsening angina and cardiomyopathy. Chest [...] equipment ?utilized will be described in t he intervention summary section. 10,000 ?units of heparin [...] A premounted 2.75 x 30 mm Srikanth Loudon (EMILEE) ? was deployed. ? ?Following stent [...] premounted 2. 00 x 22 mm Srikanth Loudon (EMILEE) was deployed. ? Following stent deployment, [...] ??A premounted 3.00 x 12 mm Srikanth Loudon (EMILEE) was ? deployed with a maximum [...] on chronic DAPT on arrival to the forestry laborer. ?These recommendations are made at the time of the intervention. Patient ?and provider preferences or a c hanging clinical situation may require ?modification of this regimen. C [facility] Interventional Cardiology for ?questions. ?This patient has [...] any medical treatment. Consult ?http://tools.acc.org/DAPTriskap p/#!/content/calculator/ or [facility] ?Interventional Cardiology for q uestions ? Conclusions: [...] 121 65 - 199 [facility] mg/dL [facility] Comment: Supplemental ranges: <140 mg/dL before meals <180 mg/dL all other times of the day Specimen Anatomical Collection Method Collection Time Receive d Time (Source) Location / / Volume Laterality Blood 05/17/2022 12:44 05/17/2022 PM EDT 12:44 PM EDT Rafi Barrett MD POINT OF CARE TEST ORDERABLE S Performing Organization Address City/State/ZIP Code Phon e Number [place] [phone] documented in this encounter Visit Diagnoses Diagnosis Ischemic cardiomyopathy - Primary Other specified forms of chronic ischemi c heart disease Coronary artery disease involving [place] coronary artery of [place] heart without angina pectoris NSTEMI (non-ST elevated myocardial infar ction) Acute myocardial infarction, subendocard ial infarction, episode of care unspecified Skin lesion Unspecified disorder of skin and subcuta neous tissue ASCVD (arteriosclerotic cardiovascular d isease) Unspecified cardiovascular disease Coronary artery disease involving [place] coronary artery of [place] heart without angina pectoris documented in this [...] mg fentaNYL (pf) (50 mcg/mL) multi-dose Given 05/17/2022 4:50 PM ED T 25 mcg injection ONCE PRN, Starting on Mon05/17/22 at 1436, Until Mon05/17/22 at 1826, Cath (Intra-Procedure), Routine Given 05/17/2022 4:31 PM EDT 25 mcg Given 05/17/2022 2:36 PM EDT 25 mcg fentaNYL (pf) (50 mcg/mL) multi-dose Given 05/17/2022 2:44 PM ED T 25 mcg injection ONCE PRN, Starting on Mon05/17/22 at 1444, Until Mon05/17/22 at 1826, Cath (Intra-Procedure), Routine ferrous sulfate EC tablet [...] tube = 37.5 grams.), Routine heparin (porcine) (1,000 units/mL) Given 05/17/2022 4:51 PM EDT 2,000 Units injection ONCE PRN, Starting on Mon05/17/22 at 1552, Until Mon05/17/22 at 1826, Cath (Intra-Procedure), Routine Given 05/17/2022 4:35 PM EDT 2,000 Units Given 05/17/2022 3:52 PM EDT 2,000 Units heparin (porcine) (1,000 units/mL) Given 05/17/2022 5:11 PM EDT 2,000 Units injection ONCE PRN, Starting on Mon05/17/22 at 1711, Until Mon05/17/22 at 1826, Cath (Intra-Procedure), Routine heparin (porcine) (5,000 units/1 mL) Given [...] patient's Methadone clinic? [facility] phone: [phone], Date last Methadone dose was given at [...] midazolam (pf) (Versed) (1 mg/mL) multi-dose Given 05/17/2022 2: 44 PM EDT 1 mg injection ONCE PRN, Starting on Mon05/17/22 at 1436, Until Mon05/17/22 at 1826, Cath (Intra-Procedure), Routine Given 05/17/2022 2:36 PM EDT 1 mg nicotine (Nicoderm CQ) 14 Given 05/23/2022 8:11 [...] Given 05/18/2022 5:11 AM EDT 0.4 mg nitroGLYcerin 100 mcg/mL intracoronary Given 05/17/2022 4:46 PM EDT 200 mcg dilution ONCE PRN, Starting on Mon05/17/22 at 1455, Until Mon05/17/22 at 1826, Cath (Intra-Procedure), Routine Given 05/17/2022 2:55 PM EDT 150 mcg ondansetron (Zofran) tablet 4 mg 4 mg, Oral, EVERY 8 HOURS PRN, Starting on 05/22/22 at 1507, Until 05/23/22 at 1602, Nausea, Routine pantoprazole EC (Protonix) tablet 40 mg Given 05/23/2022 8:08 AM EDT 40 mg 40 mg, Oral, DAILY, First dose on Toya 05/19/22 at 0900, Until Discontinued, DO NOT CRUSH OR OPEN, Routine Given 05/22/2022 8:47 AM EDT 40 mg Given 05/21/2022 9:39 AM EDT 40 mg verapamiL (Isoptin) (2.5 mg/mL) injectio n Given 05/17/2022 2:55 PM EDT 2.5 mg ONCE PRN, Starting on Mon05/17/22 at 1455, Until Mon05/17/22 at 1826, Administer over 2 Minutes, Cath (Intra-Procedure) documented in this encounter Active and Recently [...] 1738 (Given - Provider: Edison Powell RN) 174 (Given - Provider: Edison Powell RN) 80 [...] 0939 (Given - Provi ayad: Edison Powell RN)2150 (Given - Provider: Lora Teran RN) 0847 (Given - Provider: Edison Powell RN)204 (Given [...] Powell RN)1440 (Given - Provider: Edison Powell RN)2042 (Given - Provider: Lora Teran RN) 0300 [...] Powell RN) 0808 (Given - Provider: Edison Powell, DEVAN) 1,000 mcg, Oral, DAILY, First dose on 05/17/22 at 2015, Until Discontinued, Routine furosemide (Lasix) tablet 40 mg 0939 (Given - Provider: Tameka Powell RN) 0846 (Given - Provider: Edison Powell RN) 0808 (Given - Provider: Edison Powell, DEVAN ) 40 mg, Oral, DAILY, First dose on Mon at 0900, Until Discontinued, Routine gabapentin (Neurontin) capsule 600 mg 0 (Given - Pr ovider: Lora Teran RN) [...] Edison Powell RN)1441 (Given - Provider: Edison oPwell RN)2308 (Given - Provider: Lora Teran RN) [...] DAILY W ITH MEALS, First dose on 05/18/22 at 1200, Until Discontinued, MEAL ASSOCIATED Give [...] new insulin orders. DO NOT hold if HOUSEHOLD PERSONAL ASSISTANT O, unless specifically directed to do so by written order. Per Blood Glucose Monitoring Policy, re-check a BG of > 240 mg/dL in 2 hours., Routine ipratropium-albuteroL (Duoneb) 0.5 mg-3 mg(2.5 mg base)/3 mL nebulizer solution 3 mL 0300 (Not Given - Provider: Opal krishnamurthy, RN - Reason: Patient/family refused)0900 (Not Given [...] Group 2) 1235 (Patch Applied - Provider: Eidson Powell RN) 1213 (Patch Applied - Provider: Edison Powell RN) 1148 (Patch Applied - Provider: Edison oPwell RN) 2 patch, Transdermal, EVERY 24 HOURS, [...] RN) 0849 (Given - Provider: Edison Powell RN)2041 (Given - Provider: Lora Teran RN) 0808 [...] hr patch Patch Removal (Linked Group 3) 0900 (Patch Removed - Provider: Edison Powell RN) 0848 (Patch Removed - Provider: Edison Powell RN) 0809 (Patch Removed - Provider: Edison Powell RN) Transdermal, DAILY, First dose on Mon at 0900, Until Discontinued, Remove nicotine 14 mg/24 hr patch nicotine (NICODERM CQ) 14 mg/24 hr patch Patch Verific ation(Linked Group 3) 0900 (Patch (dose and location) verified - Provider: Edison Powell RN)2100 (Patch (dose and location) verified - Provider: Lora Teran RN) 0848 (Patch (dose and location) verified - Provider: Eidson Powell RN)2100 (Patch (dose and location) verified [...] Topic al (Top), ONCE, 1 dose, On Mon05/22/22 at [...] 1 each 1601 (Given - Provider: Edison Powell, RN) 1221 (Given - Provider: Edison Powell, RN) 1 each, Mucous Membrane, 2 TIMES [...] Sta rting on Mon05/18/22 at 0507, Until 05/23/22 at 1602, Chest pain, SL nitroglycerin may be repeated every 5 minutes as needed up to 3 doses, Routine ondansetron (Zofran) tablet 4 mg 4 mg, Oral, EVERY 8 HOURS PRN, Starting on 05/22/22 at 1507, Until Mon05/23/22 at 1602, Nausea, [...] episode. & nbsp; For persistent hypoglycemia, con pelletizer tender longer-acting treatment for the duration of the [...]
Routine documented in this encounter Care Teams Professor Of Visual Arts Relationship Specialty Start Date End Date Lora Parekh MD PCP - General Family Medicine 08/06/[address] [place] [address] [phone] documented as of this encounter
--- OUTSIDE RECORDS SUMMARY | 2022-08-14 18:35 | XMS_ITS | Encounter Summary ---
:1975 Author Organization [facility] [place] [address] Care Team Providers Name Role Phone Valentin Parekh MD Primary Care Provider Reason for Referral Diagnostic Test (Routine) - Closed Specialty Diagnoses / Procedures Referred By Contact Refer red To Contact Cardiology Diagnoses Coronary artery disease involving jamul coronary artery of jamul heart without angina pectoris Donna Singleton MD [facility] Non-Inv Card Lab Procedures Echocardiogram Transthoracic [facility] 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 without angina [phone] [place], [place] [address] pectoris Social History Tobacco Use Types Packs/Day Years Used Date Smoking Tobacco: Every Day Cigarettes 0.5 Smokeless Tobacco: Never Alcohol Use Standard Drinks/Week Comments Yes 0 (1 standard drink = 0.6 oz pure alcoho l) occasional Sex Assigned at Date Recorded Not on file documented as of this encounter Last Filed Vital Signs Vital Sign Reading Time Taken Comments Blood Pressure 111/77 05/13/2022 9:09 AM EDT Pulse 82 05/13/2022 9:09 AM EDT Temperature - - Respiratory Rate - - Oxygen Saturation 97% 05/13/2022 9:09 AM EDT Inhaled Oxygen Concentration - - Weight 82.6 kg (182 lb) 05/13/2022 9:09 AM EDT Height 162.6 cm (5' 4) 05/13/2022 9:09 AM EDT Body Mass Index 31.24 05/13/2022 9:09 AM EDT documented in this encounter Progress Notes Donna Singleton MD - 05/13/2022 9:00 AM EDT 46 y.o. female with poorly controlled diabetes and ischemic cardiomyopathy who has been followed by Dr. Toledo who seen in follow-up Ischemic Cardiomyopathy Sep 2021 [facility] admit NSTEMI/Decompensated Heart Failure Cardiac Cath 09/02 LAD: Long tubular mid vessel lesion RCA: High grade proximal lesion LVEDP 30 mmHg PCWP 10 Hgb ~8 case deferred to 09/03 IABP Placed PCI- RCA TTE 09/05 ?? 1. The left ventricle is mildly dilated. [...] thrombus is visualized within the left ventricle. Patient discharged and is followed by Wilian Toledo Currently on Torsemide and Sacubitril/Valsartan (Entresto) Syncope Patient reports 3-4 episodes of syncope, one resulting in a fall down the stairs leading to LLE trauma/hematoma requiring hospitalization and fasciotomy. LLE Trauma fell downstairs Requiring fasciotomy (02/23) DM2 Complications of Neuropathy and CAD Recent Hgb A1c ~10 (by report) Hx of Anemia Sep 2021 Admit Hgb 8 (MCV 75.1) Tranfused and treated conservatively Interval History Patient biggest complaint is feeling tired. Cardiac ROS: +Decreased exercise capacity able to get half a flight of stairs (NYHA 2) -Lower extremity edema, + Syncope 4-5 episodes with prodrome +Fleeting chest pain lasting seconds as well as central chest pain lasting upto 5 minutes which appears to be exertional. which does not appear to be exertional ?PND Neuro ROS: Patient specifically denies symptoms consistent with TIA/Stroke DM 2 Neuropathy and CAD Hgb A1c >10 GI ROS: Difficulty keeping down solids Social History High School: [employer] Year of College: [employer] x2/ x2 4 Children (Sons 26, 19,14, Daughter 11) Cigarettes: ~ 1/2 PPD EtOH: None Currently on Disability Physical Exam BP 111/77 P 82 General: Healthy female/male who appeared to be her stated age Lungs: Clear to auscultation CV: Neck veins were not elevated, PMI is non-displaced rhythm is regular in the 80's bpm. There is anormal S1 followed by a physiologically split S2 without, S3, S4, pathologic rub or murmur. Abdomen: Rorund, non-tender without palpable liver, spleen or masses LE: Without edema Healing left lower extremity fasciotomy scar Neuro: Non-Focal Lab Results Component Value Date CREATININE 0.80 05/13/2022 BUN 25 (H) 05/13/2022 ESTGFR 92 05/13/2022 K 3.5 05/13/2022 WBC 10.1 (H) 05/13/2022 HGB 15.1 05/13/2022 PLATELET 342 05/13/2022 TTE (05/13/2022) Read by me Left Ventricle Wall thickness is normal. Left ventricular systolic function is moderately reduced. The left ventricular ejection fraction is 31% by Jaramillo's biplane. Left ventricular ejection fraction is estimated visually at 30-35%. There are segmental wall motion abnormalities. 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 Patient is incompletely revascularized ?? Plan admit for Cardiac Cath for LAD PCI (Scheduled for 17 May) Syncope with Ischemic Cardiomyopathy Hx of Syncope is worrisome in the setting of decreased EF. Discussed with EP who will evaluate formally, though it is understood that patient will need to fully revascularized prior to placement of a AICD for primary prevention ?? Consult EP Hx of Microcytic anemia which Upper GI Symptoms ?? GI consult for upper and lower endoscopy I have discussed the above plan with the patient who knows to contact this Service if her symptoms worsen prior to her cardiac cath. 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 60 min encounter including chart review, independent image analysis, clinic visit, discussion with other physicians and documentation documented in this encounter Plan of Treatment Upcoming Encounters Date Type Specialty Care Team Description 08/22/2022 Appointment Cardiology 08/22/2022 Laboratory Appointment Lab 08/22/2022 Office Visit Cardiology Tameka Neal MD [facility] REJI Cooper [phone] (Wo rk) documented as of this encounter Procedures Procedure Name Priority Date/Time Associated Comments Diagnosis HEMOGRAM Routine 05/13/2022 11:36 Coronary artery Results for this AM EDT disease involving procedure are in jamul coronary the results artery of jamul section. heart without angina pectoris DIFFERENTIAL, Routine 05/13/2022 11:36 Coronary artery Results for this AUTOMATED AM EDT disease involving procedure are in jamul coronary the results artery of jamul section. heart without angina pectoris HC VENIPUNCTURE Routine 05/13/2022 11:36 Coronary artery AM EDT disease involving jamul coronary artery of jamul heart without angina pectoris BASIC METABOLIC PANEL Routine 05/13/2022 11:36 Coronary artery Results for this (NON-FASTING) AM EDT disease involving procedure are in jamul coronary the results artery of jamul section. heart without angina pectoris EKG 12-LEAD Routine 05/13/2022 9:49 AM Coronary artery Result s for this EDT disease involving procedure are in jamul coronary the results artery of jamul section. heart without angina pectoris documented in this encounter Results Differential, Automated (05/13/2022 11:36 AM EDT) P athologist Signature Neutrophils % 57.7 % [facility] Neutr Abs (ANC) 5.85 1.70 - [facility] [address] [facility] x10(3)/[facility] Lymphocytes % 29.5 % [facility] Lymphocytes Abs 3.0 0.9 - 3.2 [facility] x10(3)/[facility] LABORATORY Monocytes % 8.5 % [facility] Monocyte Abs 0.9 0.3 - 0.9 [facility] x10(3)/[facility] LABORATORY Eosinophils % 3.6 % [facility] Eosinophils Abs 0.4 0.0 - 0.4 [facility] x10(3)/[facility] LABORATORY Basophils % 0.5 % [facility] Basophils Abs 0.0 0.0 - 0.1 [facility] x10(3)/[facility] LABORATORY Immature Gran % 0.20 % [facility] Comment: Immature granulocytes(IG's)percentage an d absolute count will include metamyelocytes, myelocytes, and promyelo cytes. Blood smears from CBCs yielding IG's will be scanned manually for concor dance. If this scan disagrees with the automated IG or if promyelocytes are not ed, a manual differential will be performed. Anaya Gran Abs 0.02 0.00 - 0.04 x10(3)/[facility] Specimen Anatomical Collection Method Collection Time Receive d Time (Source) Location / / Volume Laterality Blood 05/13/2022 11:36 05/13/2022 AM EDT 11:50 AM EDT Resulting Agency Comment Spec In Lab Donna Shipley MD HEMATOLOGY ORDERABLES Performing Organization Address City/State/ZIP [place] [address] (ABNORMAL) Hemogram (05/13/2022 11:36 AM EDT) Analysis Performed At Patho logist Time Signature WBC 10.1 (H) 4.0 - 9.5 [facility] LABORATORY RBC 5.11 4.00 - [facility] [address] [facility] x10(6)/[facility] Hemoglobin 15.1 11.7 - [facility] 15.[facility] g/dL [facility] Hematocrit 44.4 35.7 - [facility] 45.8 % [facility] MCV 86.9 82.6 - [facility] 94.4 [facility] LAB[facility]AT[facility] MCH 29.5 27.1 - [facility] 32.0 pg [facility] MCHC 34.0 31.7 - [facility] 35.0 g/dL [facility] Platelets 342 145 - 357 [facility] x10(3)/[facility] LABORATORY RDWSD 46.7 (H) 37.0 - [facility] 46.0 [facility] RDWCV 14.6 (H) 11.5 - [facility] DAVID 14.1 % [facility] MPV 10.1 7.6 - 12.9 [facility] nRBC % Auto 0.0 % [facility] nRBC Abs Auto 0.000 0.000 - [facility] [address] [facility] x10(3)/[facility] Specimen Anatomical Collection Method Collection Time Receive d Time (Source) Location / / Volume Laterality Blood 05/13/2022 11:36 05/13/2022 AM EDT 11:50 AM EDT Resulting Agency Comment Spec In Lab Donna Shipley MD HEMATOLOGY ORDERABLES Performing Organization Address City/State/ZIP [place] [address] (ABNORMAL) Basic Metabolic Panel (non-fasting) (05/13/2022 11:36 AM EDT) P athologist Signature Glucose Lvl 99 65 - 199 [facility] mg/dL [facility] Comment: Diabetes: >=200 mg/dL plus symp toms BUN 25 (H) 8 - 18 mg/dL [facility] Creatinine 0.80 0.70 - 1.20 mg/dL [facility] Sodium 140 135 - 145 [...] if there are any qu estions. Chloride 95 (L) 98 - 107 mmol/L [facility] CO2 33 (H) 22 - 31 mmol/L [facility] Anion Gap 12 5 - 15 mmol/L [facility] Calcium 9.3 8.5 - 10.5 mg/dL [facility] Estimated GFR 92 >=60 mL/min/1.73 m?? [facility] Comment: This patient's estimated GFR [...] (Source) Location / / Volume Laterality Blood 05/13/2022 11:36 05/13/2022 AM EDT 11:50 AM EDT Resulting Agency Comment Spec In Lab Donna Shipley MD CHEMISTRY ORDERABLES Performing Organization Address City/State/Z[place] [address] ECHOCARDIOGRAM COMPLETE W CONTRAST (05/13/2022 11:21 AM EDT) Anatomical Region Laterality Modality Cardiac Other Specimen (Source) Anatomical Collection Method Collection Time Re ceived Time Location / / Volume Laterality 05/13/2022 10:21 AM EDT Narrative 05/13/2022 11:30 AM EDT ? Echocardiogram Report Name: SHODecember ? Study Date: 05/13/2022 10:21 AMBP: 111/77 mmHg ? Patient Location: 4A 0000 : 1975 ? Height: 163 cm ? Account: [id number] Age: 46 yrs ? Weight: 83 kg Gender: Female ?BSA: 1.9 m2 Ordering Physician: DONNA SINGLETON Referring Physician: DONNA SINGLETON Performed By: Beverly Farrell RDCS Reason For Study: Coronary artery diseas e Exam Location: [facility]. Interpretation Summary Left ventricular systolic function is mo derately reduced. The left ventricular ejection fraction is 31% by Jaramillo's bi plane. There are segmental wall motion abnormalities. The right ventricle is of normal size. R ight ventricular systolic function is normal. Procedure Complete-[id number]. Image enhancement Optiso n was used for [...] different from the original. Echocardiogram Report Name: December Study Date: 05/13/2022 10:21 AMBP: 111/77 mmHg Patient Location: 000 0 : 1975 Height: 163 cm Account: [id number] Age: 46 yrs Weight: 83 kg Gender: Female BSA: 1.9 m2 Ordering Physician: DONNA SINGLETON Referring Physician: DONNA SINGLETON Performed By: Beverly Farrell RDCS Reason For Study: Coronary artery diseas e Exam Location: [facility]. Interpretation Summary Left ventricular systolic function is mo derately reduced. The left ventricular ejection fraction is 31% by Jaramillo's bi plane. There are segmental wall motion abnormalities. The right ventricle is of normal size. R ight ventricular systolic function is normal. Procedure Complete-[id number]. Image enhancement Optiso n was used for [...] 5 - 6-14 large Aneurysmal 15-16 diffuse Donna Singleton V, MD ECHO ORDERABLES EKG 12 Lead (05/13/2022 9:49 AM EDT) Component Value Ref Range Test Analysis Performed Pathologis t Method Time At Signature Ventricular rate 83 BPM MUSE SYSTEM Atrial Rate 83 BPM MUSE SYSTEM P-R Interval 166 ms MUSE SYSTEM QRS Duration 98 ms MUSE SYSTEM Q-T Interval 444 ms MUSE SYSTEM QTC Calculated 521 ms MUSE SYSTEM (Bezet) Calculated P [place] 26 degrees MUSE SYSTEM Calculated R [place] 48 degrees MUSE SYSTEM Calculated T [place] 54 degrees MUSE SYSTEM INTERPRETATION Normal sinus rhythm MUSE SYSTEM Prolonged QT Abnormal ECG When compared with ECG of 04-SEP-2021 08:35, No significant change was found Confirmed by Beronica Galvez ([id number]) on 05/14/2022 8:06:00 A M Specimen Anatomical Collection Method Collection Time Receive d Time (Source) Location / / Volume Laterality 05/13/2022 9:49 AM 8:06 EDT AM EDT Donna Shipley MD ECG ORDERABLES Performing Organization Address City/State/ZIP Code Phon e Number MUSE SYSTEM documented in this encounter Visit Diagnoses Diagnosis Coronary artery disease involving jamul coronary artery of jamul heart without angina pectoris Coronary artery disease involving jamul coronary artery of jamul heart without angina pectoris documented in this encounter Care Teams 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
--- OUTSIDE RECORDS SUMMARY | 2022-08-14 18:35 | XMS_ITS | Encounter Summary ---
:1975 [place] [address] Care Team Providers Name Role Phone Lora Parekh MD Primary Care Provider Reason for Referral Home Health Care (Routine) - Authorized Specialty Diagnoses / Procedures Referred By Contact Refer red To Contact Diagnoses Hx of fasciotomy Myositis of left lower leg, unspecified myositis type Johan [place] [address] [place] [address] [address] [facility] [place] [address] Phone: Fax: Referral ID Status Reason Start Date Expiration Visits Visits Date Requested Authorized [id number] Authorized Consult, 02/24/2022 08/23/2022 999 999 Test & Treat Reason for Visit Reason Comments Leg Pain Auth/Cert Specialty Diagnoses / Procedures Referred By Contact Refer red To Contact Diagnoses Myositis Necrotizing Fasciitis Referral ID Status Reason Start Date Expiration Date Visits Requ ested Visits Authorized [id number] 1 1 Encounter Details Date Type Department Care Team Description 02/19/2022 - Hospital Encounter 3 Giovanna Díaz MD [facility] [place] [address] Left leg pain; 02/24/2022 [facility] Lora Vivas MD [facility] [place] [address] Hx of fasciotomy; [facility] Johan Kessler MD [facility] [place] [address] Myositis of left lower leg, unspecified myositis type [facility] [place] [id number] Social History Tobacco Use Types Packs/Day Years Used Date Smoking Tobacco: Every Day Cigarettes 0.5 Smokeless Tobacco: Never Alcohol Use Standard Drinks/Week Comments Yes 0 (1 standard drink = 0.6 oz pure alcoho l) occasional Sex Assigned at Date Recorded Not on file documented as of this encounter Last Filed Vital Signs Vital Sign Reading Time Taken Comments Blood Pressure 110/69 02/24/2022 7:34 AM EDT Pulse 66 02/21/2022 1:30 PM EDT Temperature 36.7 ??C (98.1 ??F) 02/24/2022 7:34 AM EDT Respiratory Rate 17 02/24/2022 7:34 AM EDT Oxygen Saturation 95% 02/24/2022 7:36 AM EDT Inhaled Oxygen Concentration - - Weight 79.4 kg (175 lb) 02/19/2022 2:56 AM EDT Height 162.6 cm (5' 4.02) 02/19/2022 5:00 AM EDT Body Mass Index 30.02 02/19/2022 2:56 AM EDT documented in this encounter Discharge Summaries Josh Tuttle MD - 02/24/2022 8:30 AM EDT Images from the original note were not included. Discharge Summary Patient Name: December Patient Age: 46 y.o. Language: Czech Race: White Ethnicity: Not nor Admit date: 02/19/2022 Discharge date: 02/24/22 Attending Physician: Lora Vivas MD Discharge Physician: Same Discharge Diagnoses (Hospital Problems) and Secondary Diagnoses (Chronic Problems): Active Hospital Problems Diagnosis ??? Myositis Resolved Hospital Problems No resolved problems to display. Active Non-Hospital Problems Diagnosis ??? NSTEMI (non-ST elevated myocardial infarction) ??? Dislocation of left shoulder joint, chronic, recurrent, with multiple surgeries. Operations/Major Procedures: Procedure(s): DEBRIDEMENT SKIN AND SUBCU, LOWER EXTREMITY (WRVU 1.01) MODIFIER WOUND VAC 02/21/2022 Procedure(s): DEBRIDEMENT SKIN AND SUBCU, LOWER EXTREMITY (WRVU 1.01) MODIFIER WOUND VAC 02/21/2022 History of Presentation (From Dr. Vivas's H&P 02/19/22): December??is a 46 y.o.??female??with a PMH of CAD s/p PCI (on DAPT), CHF (systolic, chronic, not an active hospital problem), T2DM (on insulin, unclear how well-controlled), HTN, HLD, chronic pain, and asthma??who presents with a 3- day history of worsening LLE pain. She reports that a couple of weeks ago she had a syncopal episode and fell down some stairs. Since that time, she has had mild pain inher left knee, which started to worsen 3 days ago with pain radiating down her left calf. Today it has become worse and started to extend up into the lower thigh. She reports mild erythema of the calf,in addition to severe pain, and numbness/tingling of the foot and toes. Hospital Course: Patient was admitted to [facility] from the ED on 02/19 for LLE fasciotomy and wound biopsy. Operative findings as follows: Medial and lateral fasciotomy incisions, posterior compartment with viable muscle with slight heme staining throughout but no clear hematoma, lateral and anterior compartment with viable muscle, musclebiopsy taken from posterior compartment muscle, fascial biopsy taken from medial and lateral calf, culture of medial and lateral calf, fascia and skin left open and packed with Aquacel Ag and dressed with mepilex The wound was left open for delay closure and the patient was started on broad spectrum antibiotics.Diet advanced and tolerated. Pain control continued to be challenging during the hospital course. Atbaseline, the patient takes oxycodone 10mg 4x daily for back/shoulder pain. The pain regimen was titrated up for adequate pain control. On 02/21 returned to OR for assessment of posterior lower extremity compartment, with hematoma evacuation from medial incision, with evidence of soft and viable tissue, muscle biopsy sent, wound was closed and dressed with gauze and Tegaderm. Operative findings as follows: - Old hematoma removed from medial incision, muscle soft and viable, assess posterior compartment which was soft, sent muscle biopsy for permanent - Irrigated wounds and closed with 2-0 prolene vertical mattress sutures (7cm medial incision, 6cm lateral) On 02/22 muscle biopsy intra-op culture plate positive for clostridium perfringens, ID consulted and recommended to complete a course of cephalexin/flagyl. She tolerated the surgeries well. She remained afebrile, with stable vital signs throughout her hospital stay. Today, on POD#3, 5 she has met all criteria for discharge home: her pain is well controlled with medications by mouth, she is tolerating a regular diet, is voiding spontaneously without difficulties, and is up and ambulating without complications. She has been deemed safe for discharge. Plan - pain control - will provide narcotics for 1 wk, pt should follow up with regular pain provider forfurther pain control managmeent - sutures out 02/04 (by JESÚS) - f/u appointment with general surgery in 4wk Vital Signs at Discharge: Weight: Wt Readings from Last 1 Encounters: 02/19/22 79.4 kg (175 lb) Height: Ht Readings from Last 1 Encounters: 02/19/22 162.6 cm (5' 4.02) BMI: Body mass index is 30.02 kg/m??. Last value Range last 24 hrs Temperature Temp: 36.7 ??C (98.1 ??F) Temp: [36.6 ??C (97.9 ??F)-37.1 ??C (98.8 ??F)] Heart Rate Heart Rate: 66 Heart Rate: -- Blood Pressure BP: 110/69 BP: (94-111)/(50-69) Respiratory Rate Resp: 17 Resp: [16-20] SpO2 SpO2: 95 % SpO2: [92 %-97 %] Exam at Discharge: Gen: NAD, awake/alert CV: regular rate Pulm: nonlabored breathing on RA Abd: soft, NT, ND Ext: LLE incisions c/d/i. Brisk capillary refill and distal pulses. No erythema over LLE. Functional and Cognitive Status: Ambulating and cognitively intact. Important Studies and Lab Data: Labs: No results for input(s): WBC, HGB, PLATELET in the last 72 hours.No results for input(s): INR in thelast 72 hours. No results for input(s): NA, K, CL, CO2, BUN, CREATININE, CALCIUM, MAGNESIUM, PHOS in the last 72 hours. Studies: n/a Pending Studies and Lab Data: No current labs Discharge Conditions/Prognosis: stable Discharge to: home w/ VNA Updated Allergies/ADRs: Allergies Allergen Reactions ??? Penicillins Spoke to mother Vicenta. Rash and SOB as a child ??? Trazodone Immunizations Given this Hospitalization: There is no immunization history for the selected administration types on file for this patient. Discharge Medications: Your Medications New Medications Dose Details cephALEXin 500 mg Cap Commonly known as: Keflex Take 1 capsule by mouth 4 times daily for 7 days. 500 mg Quantity: 28 capsule Refills: 0 dextromethorphan 15 mg Cap Commonly known as: Robitussin Take 1 capsule by mouth every 6 hours. 15 mg Quantity: 20 capsule Refills: 0 ibuprofen 600 mg Tab Commonly known as: Advil Take 1 tablet by mouth every 6 hours as needed for Pain. 600 mg Quantity: 30 tablet Refills: 12 liraglutide 0.6 mg/0.1 mL (18 mg/3 mL) Pnij Commonly known as: VICTOZA Inject 1.8 mg subcutaneously daily. 1.8 mg Quantity: 30 mL Refills: 0 metroNIDAZOLE 500 mg Tab Commonly known as: Flagyl Take 1 tablet by mouth 2 times daily. 500 mg Quantity: 7 tablet Refills: 0 ondansetron 4 mg Tab Commonly known as: Zofran Take 1-2 tablets by mouth every 8 hours as needed. 4-8 mg Quantity: 20 tablet Refills: 0 oxyCODONE 10 mg Tab Commonly known as: ROXICODONE Take 1 tablet by mouth every 3 hours as needed (severe pain that is not relieved after tylenol, gabapentin, ibuprofen, dextromethorphan, and regular scheduled oxycodone). 10 mg Quantity: 50 tablet Refills: 0 polyethylene glycoL 17 gram Pwpk Commonly known as: Miralax Take 17 g by mouth daily as needed. 17 g Quantity: 14 each Refills: 0 Continued medications with new dosing Dose Details acetaminophen 500 mg Tab Commonly known as: Tylenol Take 2 tablets by mouth every 6 hours. What changed: ?? medication strength ?? how much to take ?? when to take this 1,000 mg Quantity: 30 tablet Refills: 1 Insulin Tresiba FlexTouch U-200 200 unit/mL (3 mL) Inpn Inject 10 Units subcutaneously daily. Indications: type 2 diabetes mellitus Generic drug: insulin degludec What changed: how much to take 10 Units Quantity: 9 mL Refills: 3 Continued medications, unchanged Dose Details Advair Diskus 500-50 mcg/dose Dsdv Inhale 1 puff into the lungs 2 times daily. Generic drug: fluticasone propion-salmeteroL 1 puff Refills: 0 albuteroL 2.5 mg /3 mL (0.083 %) Nebu Commonly known as: Proventil Take 2.49 mg by nebulization every 6 hours as needed. 2.49 mg Refills: 0 Ambien 5 mg Tab Take 5 mg by mouth nightly as needed. Generic drug: zolpidem 5 mg Refills: 0 aspirin EC 81 mg Tbec Take 1 tablet by mouth daily. 81 mg Quantity: 30 tablet Refills: 3 atorvastatin 80 mg Tab Commonly known as: Lipitor Take 1 tablet by mouth every evening. 80 mg Quantity: 90 tablet Refills: 3 Blood Pressure Kit Med & Lrg Kit 1 Product by [employer].(Non-Drug; Combo Route) route 2 times daily. 1 Product Quantity: 1 kit Refills: 0 celeXA 40 mg Tab Take 40 mg by mouth daily. Generic drug: citalopram 40 mg Refills: 0 clopidogreL 75 mg Tab Commonly known as: Plavix Take 1 tablet by mouth daily. 75 mg Quantity: 90 tablet Refills: 3 estradioL 1 mg Tab Commonly known as: Estrace Take 1 mg by mouth daily. 1 mg Refills: 0 ferrous sulfate EC 325 mg (65 mg iron) Tbec Take 1 tablet by mouth every other day. 325 mg Quantity: 30 tablet Refills: 3 furosemide 20 mg Tab Commonly known as: Lasix Take 1 tablet by mouth 2 times daily. 20 mg Quantity: 30 tablet Refills: 3 * gabapentin 400 mg Cap Commonly known as: Neurontin Take 3 capsules by mouth nightly. 1,200 mg Quantity: 90 capsule Refills: 12 * gabapentin 300 mg Cap Commonly known as: Neurontin Take 2 capsules by mouth 2 times daily. 600 mg Quantity: 90 capsule Refills: 12 insulin needles (disposable) 32 gauge x 5/32 Ndle Inject 1 each subcutaneously daily. Indications: diabetes mellitus 1 each Quantity: 100 each Refills: 11 losartan 25 mg Tab Commonly known as: Cozaar Take 1 tablet by mouth daily. 25 mg Quantity: 90 tablet Refills: 3 magnesium oxide 400 mg (241.3 mg magnesium) Tab Commonly known as: Mag-Ox Take 1 tablet by mouth 2 times daily. 400 mg Quantity: 30 tablet Refills: 12 metoprolol succinate XL 50 mg Tablet sr Commonly known as: Toprol-XL Take 1 tablet by mouth daily. 50 mg Quantity: 30 tablet Refills: 12 nicotine 14 mg/24 hr Pt24 Commonly known as: Nicoderm CQ Change 1 patch on the skin daily. 1 patch Quantity: 28 patch Refills: 3 nitroGLYcerin 0.4 mg Subl Commonly known as: Nitrostat Place 1 tablet under the tongue every 5 minutes as needed for Chest pain. 0.4 mg Quantity: 90 tablet Refills: 12 pantoprazole EC 20 mg Tbec Commonly known as: Protonix Take 1 tablet by mouth daily. 20 mg Quantity: 90 tablet Refills: 3 PERCOCET ORAL Take 5 mg by mouth daily as needed. 5 mg Refills: 0 * This list has 2 medication(s) that are the same as other medications prescribed for you. Read thedirections carefully, and ask your doctor or other care provider to review them with you. Smoking Status at Discharge: Social History Tobacco Use Smoking Status Current Every Day Smoker ??? Packs/day: 0.50 Smokeless Tobacco Never Used Instructions Given to Patient at Discharge: Patient Instructions [facility] of Acute Care Surgery Discharge Instructions CALL YOUR PHYSICIAN'S OFFICE IF: ??? You have a fever greater than 101 degrees Farenheit (38.3C) within one month of your surgery. ? ? You have diarrhea or vomiting for >24 hours, stop having bowel movements and/or passing flatus, have pain with urination. ??? You have worsening pain, not controlled with your pain medication. ??? You develop redness, swelling, or new drainage from your wound. Medications: [x] Pain Control [x] Non-narcotic pain medication - We recommend alternating with tylenol 650mg and ibuprofen 400-600mg every 6 hours (ie; tylenol at12pm, ibuprofen 3pm, tylenol 6pm, ibuprofen 9pm). - Do not take more than 4,000mg (4g) of tylenol in 24hours. [x] Narcotic pain medication - You have been prescribed 50 tablets of 10mg of Oxycodone. You can take one tablet every 3 hours as needed for SEVERE pain that is not relieved after your tylenol, ibuprofen, gabapentin, dextromethorphan, and scheduled normal dose of oxycodone. You should wean this over the next week to avoid increasing your tolerance and dependence on this medication. Try to decrease the amount you take by 1-2 pills each day. This is a narcotic medication that has several side effects/warnings: 1. Constipation: Narcotics can cause severe constipation. Please take BOTH a stool softener and pro-motility/laxative agent whenever taking narcotics, unless otherwise advised. These are over the counter. (Stool Softeners: Colace, Surfak. Laxatives/Stimulants: Miralax, Milk of Magnesia, Senna, Bisacodyl). 2. Altered mental status: Narcotics can make you sleepy and have delayed reactions. Therefore, do not drive or operate any heavy machinery while taking narcotics. 3. Addictive: Narcotics are addictive. Please take as prescribed and wean down/decrease your dose as soon as you can tolerate. 4. Restricted: Narcotics are highly regulated. If you are running out of your prescription and feelyou will need more, plan ahead and call your Physician as these cannot be filled electronically or at night/over the weekend. Again, as your pain decreases, reduce your use of these medications. You donot need to use all of the pills provided. [x] Antibiotics - You have been prescribed 500 mg of Cephalexin taken 4 times a day for 7 days to treat bacteria from your wound. There was no evidence of a flesh eating process from your wound, however the wound didgrow bacteria and is the reason you will be on antibiotics for a week. [x] Other Medication(s) - The remainder of your medications are listed in the first section of the After Visit Summary. Driving Restrictions: - No driving if you are too sore from surgery to enter or exit your vehicle comfortably, or if you are too sore to easily check your blind spot. No driving while using narcotic pain medications. Shower: - It is ok to shower per usual routine and let soapy water run over your incision. Pat incision drywith a clean, dry towel. Do not submerge the wound under water (no swimming or soaking) for at least6 weeks, or until approved by your surgeon. Diet [x] You have been cleared to resume your regular diet - We recommend eating a regular healthy diet (ie; fresh fruits, vegetables and fiber-containing foods will assist in wound healing,) Activity: - It is normal to feel tired after surgery/hospitalization. Be as active as tolerated as this will improve recovery and prevent blood clots. - You can progress your activity as tolerated, but likely will need to rest due to pain/discomfort.As you progress and are able to move and ambulate without pain, we recommend taking several slow, short walks each day for and gradually increase your distance. We recommend at least 4 times a day. Wound/Incision Care: Closure: Your skin incision(s) is closed with: [x] Glue - There are sutures below the skin and the glue is the dressing. There is nothing to remove and the discoloration will go away in time. [x] Sutures - Your sutures will need to be removed at a follow up appointment of by a visiting nurse in 2 weeks. You may shower while the sutures are in place. Things to avoid: Do not use creams, oils, or ointments on the wound. Keep wound open to air if it is not draining. Who to call? If you have concerns or questions: - During the day, it is best to call the General Surgery Clinic to speak with the Surgery nurses. The number is [phone]. - During the night or weekends call the [facility] microfilm camera operator at [phone] and ask to speak to the surgery resident lifestyle consultant for general surgery. Please note: Your surgeon may not be [employer], especially during the night or on weekends, so be ready to describe yourself and your surgery when you call. Follow up appointments: No future appointments. [] Follow-up appointment with General Surgery has already been scheduled [x] A request for a follow-up appointment has been made and you should receive information via phone/mail in the next week. If you do not hear anything, please call the clinic at [phone] to confirm or reschedule. If you need a prior authorization, please call the General Surgery Clinic nurses [phone] for prior authorizations assistance General Instructions December-for your diabetes Goal with healing: all blood sugars safe and < 180, over 70. ?? Suggest at home Tresiba 10 units daily tomorrow( this is a U-200 basal insulin or VERY STRONG COMPARED TO THE LANTUS WE USED IN A SMALL DOSEand ~ the = of 18 units Lantus daily) ?? Suggest restart Victoza (GLP-1 is fine) ?? DO NOT RESTART JARDIANCE. We defer to PCP ?? Suggest continue humalog coverage at home if needed- Future Appointments and Orders Future Orders Complete By Expires Referral to Home Health [REF34 Custom] As directed Process Instructions: If no progress note charted, please enter Clinical details in comments. Scheduling Instructions: Comments: Please evaluate Aracelis Berkowitz for admission to Home Health. [address] [place] [id number] (home) Date of : 1975 Inpatient DOCUMENTATION FOR VNA SERVICES (INCLUDING THOSE PATIENTS WITH MEDICARE COVERAGE REQUIRING HOME VNA SERVICES AND/OR HOSPICE SERVICES) PATIENT'S LOCATION: Aracelis [address] [address] (home) Cell: Telephone Information: Single Fold Machine Operator's Name: self/patient In discussion with the attending physician, it is certified that this patient is under their care and that they, or a Nurse Practitioner,Clinical Nurse specialist or Physician Vice President Quality Improvement who is working directly with them, had a face to face encounter that meets the physician face to face encounter requirements with this patient on 02/20/2022 The encounter with the patient was in whole, or in part, for the following medical condition, which is the primary reason for home health care services: wound care, assistance with mobility In discussion with the provider, it is certified that, based on their findings, the following services are medically necessary for home health services. To provide the following care/treatments with the clinical findings supporting the need for servicesas follows: HOME CARE ORDERS: RN ORDERS:Assess wound or incision, vital signs, cardiopulmonary status, nutrition, hydration, elimination, meds effectiveness and management; reinforce education re health issues SPECIFIC RN ORDERS if indicated PT ORDERS: Continue rehab for endurance, gait stability and strength with mobility and transfers. Home safety evaluation. Home exercise program if appropriate. HOME HEALTH CARE AGENCY: [facility] [address] [place] [address] Start of care: 02/23/22 FOR MEDICARE ONLY: (please delete this section if not Medicare) In discussion with the attending physician, it is certified that the clinical findings support that this patient is homebound because absences from home require considerable and taxing effort due to: Patient is unable to leave home without assistance and ambulation is severely limited by pain, decreased strength and/or endurance. Please note that any additional orders needs or changes will need to be obtained from this patient'sPCP: Lora Parekh MD [address] [place] [phone] All VNA agencies which cover the area of patient's residence have been reviewed, either verbally or in writing, and patient/family have chosen the home health care agency noted Questions: Disciplines Requested: Nursing Follow-Up: No future appointments. Primary Care Provider: Lora Parekh MD [phone] Follow-up Recommendations for Providers: see discharge summary Click refresh button immediately prior to signing DCS to ensure all st[place] are updated. Call your doctor if: Please call your doctor immediately or go to an Emergency Department if you notice worsening pain not controlled by pain medications, uncontrolled headache, vision changes, chest pain, difficulty breathing, persistent nausea and vomiting, new redness or swelling in any extremities, new onset weakness or changes in sensation, or for any fevers greater than 101.3 F. documented in this encounter Discharge Instructions Discharge InstructionsZaida Yen APRN - 02/23/2022 11:24 AM EDT December-for your diabetes Goal with healing: all blood sugars safe and < 180, over 70. Suggest at home Tresiba 10 units daily tomorrow( this is a U-200 basal insulin or VERY STRONG COMPARED TO THE LANTUS WE USED IN A SMALL DOSEand ~ the = of 18 units Lantus daily) Suggest restart Victoza (GLP-1 is fine) DO NOT RESTART JARDIANCE. We defer to PCP Suggest continue humalog coverage at home if needed- Patient InstructionsMayco Fritz MD - 02/23/2022 9:28 AM EDT [facility] Department of Acute Care Surgery Discharge Instructions CALL YOUR PHYSICIAN'S OFFICE IF: You have a fever greater than 101 degrees Farenheit (38.3C) within one month of your surgery. You have diarrhea or vomiting for >24 hours, stop having bowel movements and/or passing flatus, have pain with urination. You have worsening pain, not controlled with your pain medication. You develop redness, swelling, or new drainage from your wound. Medications: [x] Pain Control [x] Non-narcotic pain medication - We recommend alternating with tylenol 650mg and ibuprofen 400-600mg every 6 hours (ie; tylenol at12pm, ibuprofen 3pm, tylenol 6pm, ibuprofen 9pm). - Do not take more than 4,000mg (4g) of tylenol in 24hours. [x] Narcotic pain medication - You have been prescribed 50 tablets of 10mg of Oxycodone. You can take one tablet every 3 hours as needed for SEVERE pain that is not relieved after your tylenol, ibuprofen, gabapentin, dextromethorphan, and scheduled normal dose of oxycodone. You should wean this over the next week to avoid increasing your tolerance and dependence on this medication. Try to decrease the amount you take by 1-2 pills each day. This is a narcotic medication that has several side effects/warnings: 1. Constipation: Narcotics can cause severe constipation. Please take BOTH a stool softener and pro-motility/laxative agent whenever taking narcotics, unless otherwise advised. These are over the counter. (Stool Softeners: Colace, Surfak. Laxatives/Stimulants: Miralax, Milk of Magnesia, Senna, Bisacodyl). 2. Altered mental status: Narcotics can make you sleepy and have delayed reactions. Therefore, do not drive or operate any heavy machinery while taking narcotics. 3. Addictive: Narcotics are addictive. Please take as prescribed and wean down/decrease your dose as soon as you can tolerate. 4. Restricted: Narcotics are highly regulated. If you are running out of your prescription and feelyou will need more, plan ahead and call your Physician as these cannot be filled electronically or at night/over the weekend. Again, as your pain decreases, reduce your use of these medications. You donot need to use all of the pills provided. [x] Antibiotics - You have been prescribed 500 mg of Cephalexin taken 4 times a day for 7 days to treat bacteria from your wound. There was no evidence of a flesh eating process from your wound, however the wound didgrow bacteria and is the reason you will be on antibiotics for a week. [x] Other Medication(s) - The remainder of your medications are listed in the first section of the After Visit Summary. Driving Restrictions: - No driving if you are too sore from surgery to enter or exit your vehicle comfortably, or if you are too sore to easily check your blind spot. No driving while using narcotic pain medications. Shower: - It is ok to shower per usual routine and let soapy water run over your incision. Pat incision drywith a clean, dry towel. Do not submerge the wound under water (no swimming or soaking) for at least6 weeks, or until approved by your surgeon. Diet [x] You have been cleared to resume your regular diet - We recommend eating a regular healthy diet (ie; fresh fruits, vegetables and fiber-containing foods will assist in wound healing,) Activity: - It is normal to feel tired after surgery/hospitalization. Be as active as tolerated as this will improve recovery and prevent blood clots. - You can progress your activity as tolerated, but likely will need to rest due to pain/discomfort.As you progress and are able to move and ambulate without pain, we recommend taking several slow, short walks each day for and gradually increase your distance. We recommend at least 4 times a day. Wound/Incision Care: Closure: Your skin incision(s) is closed with: [x] Glue - There are sutures below the skin and the glue is the dressing. There is nothing to remove and the discoloration will go away in time. [x] Sutures - Your sutures will need to be removed at a follow up appointment of by a visiting nurse in 2 weeks. You may shower while the sutures are in place. Things to avoid: Do not use creams, oils, or ointments on the wound. Keep wound open to air if it is not draining. Who to call? If you have concerns or questions: - During the day, it is best to call the [facility] to speak with the Surgery nurses. The number is [phone]. - During the night or weekends call the [facility] [place] microfilm camera operator at [phone] and ask to speak to the surgery resident lifestyle consultant for general surgery. Please note: Your surgeon may not be [employer], especially during the night or on weekends, so be ready to describe yourself and your surgery when you call. Follow up appointments: No future appointments. [] Follow-up appointment with General Surgery has already been scheduled [x] A request for a follow-up appointment has been made and you should receive information via phone/mail in the next week. If you do not hear anything, please call the clinic at [phone] to confirm or reschedule. If you need a prior authorization, please call the General Surgery Clinic nurses [phone] for prior authorizations assistance documented in this encounter Medications at Time of Discharge Medication Sig Dispensed Refills Start Date End Date cetirizine (ZyrTEC) 10 Take 10 mg by mouth 0 03/0 10/2021 mg Tablet daily as needed. dextromethorphan Take 1 capsule by 20 capsule [...] ejection daily. fraction), Coronary artery disease involving [place] coronary artery of [place] heart without angina pectoris, Hypertension, unspecified type [...] (ADVAIR) 500-50 daily. mcg/dose Disk with Device potassium chloride ER TAKE ONE TABLET BY 0 202105/23/2022 (K-Dur/Klor-Con) 20 mEq MOUTH EVERY DAY FOR Tab Sust.Rel. 10 DAYS Particle/Crystal cephALEXin (Keflex) 500 Take 1 capsule by 28 capsule 0 02/2403/03/2022 mg Capsule mouth 4 times daily for 7 days. metroNIDAZOLE (Flagyl) Take 1 tablet by 7 tablet 0 022 05/13/2022 500 mg Tablet mouth 2 times daily. oxyCODONE (ROXICODONE) Take 1 tablet by 50 tablet 0 022 05/13/2022 10 mg Tablet mouth every 3 hours as needed (severe pain that is not relieved after tylenol, gabapentin, ibuprofen, dextromethorphan, and regular scheduled oxycodone). ibuprofen (Advil) 600 Take 1 tablet by 30 tablet 12 02/25/20 22 05/13/2022 mg Tablet mouth every 6 hours as needed for Pain. Insulin Tresiba Inject 10 Units 9 mL 3 02/24/202205/03 FlexTouch U-200 200 subcutaneously daily. unit/mL (3 mL) Insulin Indications: type 2 PenIndications: type 2 diabetes mellitus diabetes mellitus furosemide (Lasix) 20 Take 1 tablet by 30 tablet 3 09/06/20 21 05/17/2022 mg TabletIndications: mouth 2 times daily. HFrEF (heart failure with reduced ejection fraction), Coronary artery disease involving [place] coronary artery of [place] heart without angina pectoris, Hypertension, unspecified type gabapentin (Neurontin) Take 3 capsules by 90 capsule 12 09/0505/13/2022 400 mg Capsule mouth nightly. losartan (Cozaar) 25 mg Take 1 tablet by 90 tablet 3 202005/23/2022 Tablet mouth daily. metoprolol succinate XL Take 1 tablet by 30 tablet 12 202005/23/2022 (Toprol-XL) 50 mg mouth daily. Tablet Sustained Release [address] 1 tablet under 90 tablet 12 09/05/2021 0 05/23/2022 (Nitrostat) 0.4 mg the tongue every 5 Tablet, Sublingual minutes as needed for Chest pain. zolpidem (Ambien) 5 mg Take 5 mg by mouth 0 05/13/2022 Tablet nightly as needed. citalopram (CeleXA) 40 Take 40 mg by mouth 0 05/13/2022 mg Tablet daily. estradiol (ESTRACE) 1 Take 1 mg by mouth 0 05/13/2022 mg tablet daily. OXYCODONE Take 5 mg by mouth 0 2021 HCL/ACETAMINOPHEN daily as needed. (PERCOCET ORAL) documented as of this encounter Progress Notes Jamee Keating MD - 02/24/2022 11:30 AM EDT Infectious Disease Follow-Up Antibiotics: Cephalexin Metronidazole Events: none Subjective: December reports improved pain today. She is looking forward to going home. Objective: BP 110/69 (BP Location (NBP): Right arm, Patient Position: Lying) Pulse 66 Temp 36.7 ??C (98.1 ??F) (Oral) Resp 17 Ht 162.6 cm (5' 4.02) Wt 79.4 kg (175 lb) SpO2 95% BMI 30.02 kg/m?? General: no acute distress CV: regular rate and rhythm, no obvious murmurs Resp: clear to auscultation bilaterally; no wheezing, crackles, or rhonchi Abd: soft, non-distended, non-tender on palpation, well-healed surgical scar Ext: warm and well-perfused, posterior calf with improved swelling and tenderness on palpation Pertinent labs, microbiology, imaging and procedures were reviewed. Impression and Recommendations: In brief, this is a 46 y/o female with DM, CAD, CHF, and several prior abdominal surgeries who presented with acutely progressive left posterior calf pain with extension to her thigh and corresponding radiographic findings of subcutaneous edema. She was taken urgently to the OR for LLE fasciotomy thatrevealed viable muscles on exploration. Cultures have finalized with recovery of Clostridium perfringens on a single specimen from broth only. Pathology of her muscle and fascial biopsies are pending. It remains uncertain to us whether the isolated Clostridium holds any clinical significance (please see initial consultation for details). Nevertheless, we opted to treat this for several reasons including 1) uncommon contaminant, 2) recovery in a sterile setting and 3) high morbidity and mortality ofassociated necrotizing skin and soft tissue infections. She also notably has pain that is out of proportion to examination, which is a feature that is somewhat characteristic of this organism. Aracelis appears to be improving steadily, and there are plans for her to be discharged today. Primary team is planning for an additional 7 days of cephalexin and metronidazole. This is a reasonable duration and choice to target both typical culprits of SSTI such as Staph/Strept and the Clostridium, which is confirmed to be susceptible to metronidazole. We will sign off. Please call with questions. Discussed with attending, Dr. Rishabh Epstein, DO ID Fellow Red Team Pager: [phone] ID ATTENDING I agree with assessment and recommendations above. I reviewed the data set and guided decision-making but did not re-examine the patient today. Jamee Keating MD Page [phone] All of this 15 minute visit were spent on the floor/unit in coordination of care for the patient, regarding treatment of infection as detailed in note above. Judy Eduardo - 02/24/2022 9:45 AM EDTSummary: Vt AD packet reviewed- not completed AD -IP/RS Reviewed AD for Vt w. Pt. She declines making decision at this time. Son is just 19 and mother too old w/ health challenges. She will review and bring to follow up appt in a month. Pt wantsto discuss w/ son before assignment. Josh Tuttle MD - 02/24/2022 8:33 AM EDT ID/MECHANISM OF INJURY: December Kayden??is a 46 y.o.??female??with a history of CAD s/p PCI on DAPT and T2DM??who presented withprogressive, severe LLE pain and is now s/p fasciotomy of left lower extremity (02/19) and wound closure (02/22). Muscle and fascia biopsies were also taken in the OR. OR CASE INFORMATION: 02/21/2022 Procedure(s): DEBRIDEMENT SKIN AND SUBCU, LOWER EXTREMITY (WRVU 1.01) MODIFIER WOUND VAC FOLLOW-UP NEEDED: Does pt need to f-u with surgeon or CONSULTING UTILITY FORESTER (please indicate reason if attending provider): Yes, CONSULTING UTILITY FORESTER follow up in 4wk How soon should TACS f/u be? 4wk Does patient need imaging prior to TACS f/u? No Does patient have kenneth/sutures? When should they be removed? What service is responsible? Yes - March 07 (2wk from OR date), to be removed by [facility] services Follow-up with other services? No Advise of Service and needs. Imaging orders entered: No Radiology Safety questions done for MRI/CT? No New or current ostomy? Ostomy nurse shared visit No Mobility concerns: Fully ambulatory Wound vac (requires 60min clinic visit) No On vent? If Yes - Needs to have someone from facility and supplies. No On Dialysis: No INCIDENTAL FINDINGS Incidental Findings (yes/no): No OPIOID CONSENT/NARCOTIC AGREEMENTS Current Month Narcotic Consent? Yes Isolation No Isolation D/c to: Home If Rehab - Rehab Name: PCP Name: MD Josh Meng MD 02/24/2022 Theresa Alvares RN - 02/24/2022 5:10 AM EDT OUTCOME EVALUATION NOTE: OUTCOME SUMMARY: Pt A&O x 4, VSS on oxygen 1-2 l/m during sleep. Pt continues to complain of LLE pain, ice and frequent medications given. Drsg to LLE remain C/D/I. No changes with neurovascular or edema to LLE. Blood sugars well controlled. Pt up with walker and SBA. Voiding QS. Patient progressing towards d/c goals appropriately at this time. Possible DC today. Patient's pain adequately controlled with scheduled and PRN medications, see MAR for medications given. Will continue to monitor and help patient reach d/c goals. PLAN MOVING FORWARD: Pain control Mobilize D/C planning INDIVIDUALIZED FALL PREVENTION: Patient is currently a high risk to Fall. Patient educated on bed/chair alarm, demonstrates proper use of call gonsales and verbalizes understanding of fall preventions implemented. Patient-specific fall risk factors per assessment: [current deficits]: Pain, Medications, Hospital Environment, Impaired Mobility Assistance [level of assistance required for transfers and ambulation]: SBA with walker Supervision [direct monitoring required during toileting and ADLs]: Eyes on with ADL's Surveillance [continuous indirect monitoring]: Diego, Purposeful Rounding, Nurse Knowledge Exchangeat Bedside, Bed Alarm Set Elke Trinh PT - 02/23/2022 2:12 PM EDT Physical Therapy Evaluation Patient profile: Aracelis Berkowitz is a 46 y.o. female with past medical history significant for CAD s/p PCI on DAPT and T2DM??who presented with progressive, severe LLE pain and is now s/p fasciotomy of leftlower extremity (02/19) and wound closure (02/22). Muscle and fascia biopsies were also taken in the OR. Patient with the following active problems: No past medical history on file. Past Surgical History: Procedure Laterality Date ? ? PRO DEBRIDEMENT SUBCUTANEOUS TISSUE 20 SQCM/< Left 02/21/2022 DEBRIDEMENT SKIN AND SUBCU, LOWER EXTREMITY (WRVU 1.01) [facility]?? PRO DECOMPRESS ANT/LAT+POST LEG CMPART Left 02/19/2022 FASCIOTOMY, LOWER LEG, ALL COMPARTMENTS (WRVU 7.82) performed by Lora Vivas MD at [facility] Active Non-Hospital Problems Diagnosis ??? NSTEMI (non-ST elevated myocardial infarction) ??? Dislocation of left shoulder joint, chronic, recurrent, with multiple surgeries. Social History: Home set-up: pt lives in a multi-level home with multiple kids (has a 19 year old son who is home all the time that can assist with stair negotiation) Bathroom Set-up: tub shower with shower chair Stairs: FOS to second floor where bedroom and only bathroom are located, 1 rail and a wall for 3/[address] then the last 1/4 only 2 neri no rails Baseline Mobility: independent with all ADLs/IADLs, utilizes cane for mobility, home O2 at night only Equipment at home: cane, FWW, rollator, shower chair Fall history: 1 fall 3 weeks ago down the stairs d/t syncope Precautions/Special Considerations: high fall risk, carb control diet, PIV, WBAT L LE, pt requires pre-medication Mobility and Positioning Recommendations: ?? Pt. to utilize FWW and supervision for ambulation and transfers with nursing. ?? Please encourage up to chair for meal times as able. ?? Pt encouraged to ambulate frequently with staff, getting into the bathroom for toileting and walking out in the pan >/= 3 times daily as able. Subjective: ???I don't think I am able to put any weight on it with the pain.?? Objective: Pt seen for evaluation today. Pain: seated EOB at rest pt reports 8-9/10 pain, pt not able to put any weight through L LE during functional mobility d/t pain, overall activity tolerance during session limited d/t poor endurance andpain; pt reports pain decreases with elevation and positioning Vital Signs: on RA, VSS Mental Status: alert, oriented to person, place, and time Vision: WFL, wears glasses Skin: L distal LE moderate edema, 2 surgical sites covered with guaze with medial site mild redness distal part of incision no overt drainage; all other visible skin intact; see shop clerk for details Musculoskeletal: ROM: WFL, L LE DF/PF limited d/t pain and edema Strength: L LE not able to assess d/t pain, R LE WFL Sensation: pt reports impaired sensation distal to L mid-goddard down to foot sleeping sensation Bed Mobility: Supine to Sit: independent Sit to Supine: independent Transfers: Sit to Stand: independent up to FWW Stand to Sit: independent, fair eccentric control Bed to Chair: not assessed Gait: Distance: 50ft Device used: FWW Level of assist: initially supervision pt then progressed to independent Gait mechanics: pt demonstrated hopping technique d/t pain unable to WB L LE, pt demonstrated adequate clearance and balance during gait Stairs: up/down 3 steps with B loftstrand crutches, NWB L LE d/t pain, CGA x 2, pt demonstrated fairfoot clearance and mod instability however no overt LOB; up/down 3 steps with B axillary crutches, NWB L LE d/t pain, CGA x 1, pt demonstrated fair foot clearance and mild instability however no LOB; pt did better with B axillary crutches however still recommend pt have a first floor set up for safety, pt is very addiment to negotiate stairs, education provided for proper guarding techniques and pt required to have CGA Balance: Sitting Static: good Sitting Dynamic: good Standing Static: good with B UE support on FWW Standing Dynamic / Gait: Good with B UE support on FWW Therex: DF/PF AROM/ankle pumps, knee flexion/extension AROM Education: patient has been educated on Bed mobility, Transfers, Assistive device/technique, Stairs,Exercise, Positioning, Safety , Precautions/protocol, Gait , Activity pacing/Energy conservation, Home program, Role of therapy, Balance and Discharge planning and verbalizes understanding. Patient status, treatment, and mobility recommendations discussed with nursing. Assessment: Aracelis Berkowitz was seen today for physical therapy evaluation. Pt is a 46 year old female past medical history significant for CAD s/p PCI on DAPT and T2DM??who presented with progressive, severe LLE pain and is now s/p fasciotomy of left lower extremity (02/19) and wound closure (02/22). Pt presents with impaired ROM, strength, standing balance, and pain. Due to these impairments pt is unable to perform stair negotiation independently, however pt states she will have CGA on stairs from adult son who will be home 24/04. Proper guarding techniques for stair negotiation were discussed with pt and pt stated they have done this technique in the past from previous ankle surgery, stated she has no c oncerns. Discussed with pt recommendation would be to have a first floor set-up and utilize commode for toileting, however pt addiment on negotiating stairs to get to bedroom and only bathroom in the home. Pt is able to perform bed mobility, SPT with FWW, and ambulate short household distances with FWW independently. Overall activity tolerance and L LE WB is limited by pain, despite WBAT orders pt isunable to WB on L LE. Pt is cleared from a PT perspective to discharge home with intermittent supervision (only requires CGA on stairs), crutches given to pt for stair negotiation only and pt has FWW for ambulation, follow up with home PT. Will continue to monitor while admitted. Pt educated on edema management (elevation), pain management, ROM exercises, WBAT L LE, safety during functional mobility specifically emphasized stair negotiation, and follow up with home PT for further recommendations. Ptverbalized understanding and all questions were addressed. Discharge Recommendations: Based on the current findings, Anticipated Discharge Disposition (PT): home with supervision (intermittent supervision for stair negotiation) when medically ready for hospital discharge. Consult Recommendations: No other consults recommended at this time. Equipment needs: Anticipated Equipment Needs at Discharge (PT): crutches (already given to pt, pt has FWW) Goals: Pt has met all goals for the acute setting. Will continue to monitor while admitted. Plan: Therapy Frequency (PT): Monitor. Patient understands and agrees with plan as stated above. PT Evaluation Code Rationale: ?? Diagnosis & Pertinent Co-Morbidities, personal factors, and present illness affecting Plan ofCare: (see above); Additional personal factors or co- morbidities that impact plan: ?? Total # of Factors: 0 1-2 3+ x ?? Examination of body system impairments, functional limitations and behaviors, and/or participation restrictions. Addressing 1-2 elements Addressing 3 + elements x Addressing 4 + elements ?? Clinical presentation: See assessment above. Stable/Uncomplicated Evolving/Fluctuating Symptoms Unstable/Unpredictable x ?? Clinical decision making of moderate complexity based on pt's functional performance as outlined in this evaluation. Time IN / OUT: 3301-8048 Total Minutes, Physical Therapy: 47 Billing Code: Evaluation Elke Trinh, PT Pager: [phone] Physical Therapy Inpatient Rehabilitation Department Lora Vivas MD - 02/23/2022 1:46 PM EDT Acute Care Surgery Progress Note Patient Name: Aracelis Berkowitz : 1975 Admit date: 02/19/2022 Attending Physician: Lora Vivas MD ID: Aracelis Berkowitz is a 46 y.o. female with a history of CAD s/p PCI on DAPT and T2DM who presented withprogressive, severe LLE pain and is now s/p fasciotomy of left lower extremity (02/19) and wound closure (02/22). Muscle and fascia biopsies were also taken in the OR. Subjective/24hr Events: - afebrile and HDS, tolerating diet - pain severe yesterday, increased oxycodone scale and added flexeril, dextromethorphan - consultation with ID re: [email or web address], switched to metronidazole and cephalexin Current Medications: ??? ibuprofen 600 mg Oral Q6H ??? insulin lispro 0-14 Units Subcutaneous TID WC ??? insulin lispro 1-6 Units Subcutaneous Q4H ALAN ??? [START ON 02/24/2022] insulin glargine (Lantus;Semglee) (100 unit/mL) subcutaneous injection 18 Units Subcutaneous Daily ??? oxyCODONE 10 mg Oral Q6H ??? dextromethorphan 15 mg Oral Q6H ALAN ??? metroNIDAZOLE 500 mg Oral BID ??? cephALEXin 500 mg Oral 4 Times Daily ??? lidocaine 3 patch Transdermal Q24H And ??? lidocaine 3 patch Transdermal Q24H ??? enoxaparin 40 mg Subcutaneous Nightly ??? aspirin EC 81 mg Oral Daily ??? citalopram 40 mg Oral Daily ??? clopidogreL 75 mg Oral Daily ??? budesonide-formoteroL 1 Inhalation Inhalation BID ??? furosemide 20 mg Oral BID ??? gabapentin 600 mg Oral BID ??? gabapentin 1,200 mg Oral Nightly ??? metoprolol succinate XL 50 mg Oral Daily ??? pantoprazole EC 20 mg Oral Daily ??? sodium chloride 0.9 % (flush) 5 mL Intravenous BID ??? docusate sodium 100 mg Oral BID ??? acetaminophen 1,000 mg Oral Q6H ALAN ??? nicotine 1 patch Transdermal Q24H And ??? nicotine 1 patch Transdermal Q24H Objective: Last value Range last 24hrs Temperature Temp: 36.9 ??C (98.4 ??F) Temp: [36.9 ??C (98.4 ??F)-37.6 ??C (99.7 ??F)] Heart Rate Heart Rate: 66 Heart Rate: -- Blood Pressure BP: 94/50 BP: (94-118)/(50-78) Respiratory Rate Resp: 16 Resp: [16-20] SpO2 SpO2: 94 % SpO2: [92 %-97 %] Intake/Output Summary (Last 24 hours) at 02/23/2022 1643 Last data filed at 02/22/2022 2300 Gross per 24 hour Intake 300 ml Output 850 ml Net -550 ml Physical Exam: Gen: NAD, awake/alert CV: regular rate Pulm: nonlabored breathing on RA Abd: soft, NT, ND Ext: LLE with 2 dressings c/d/i. Brisk capillary refill and distal pulses. No erythema over LLE. There is mild warmth on the LLE with significant tenderness to palpation. Labs: Recent Labs 02/21/22 0341 WBC 8.6 HGB 12.1 HCT 37.5 PLATELET 260 Recent Labs 02/21/22 0341 NA 137 K 3.9 CL 106 CO2 22 BUN 11 CREATININE 0.66* GLUCOSE 326* CALCIUM 8.3* MAGNESIUM 0.92 PHOS 2.7 Micro: No results for input(s): URINECULTURE in the last 720 hours. No results for input(s): BLOODCX in the last 720 hours. Imaging: No results found for this visit on 02/19/22. A/P: Aracelis Berkowitz is a 46 y.o. female with a history of CAD s/p PCI on DAPT and T2DM who presented with progressive, severe LLE pain and is now s/p fasciotomy of left lower extremity. Progressing appropriately although remains in significant pain. - Plan for today: - optimize pain management - evaluation by PT and OT to address any potential barriers to d/c - likely d/c to home tomorrow - Follow up OR muscle biopsies Neuro: alan tylenol, citalopram, gabapentin 600 BID and 1200 nightly, oxycodone 10mg q6, [id number] q3 prn, flexeril 10mg TID prn, dextromethorphan 15mg q6, zofran prn, ambien nightly CV: asa81, clopidogrel, lasix, losartan, metoprolol Pulm: encourage IS/OOB, nicotine patch, symbicort/albuterol prn FENGI: Carb Control diet 60/60/75 CHO counting level 2, colace/miralax, PPI : JANAE ID: [email or web address], flagyl Endo: resistant ISS - DM team consulted, appreciate recs Heme: no signs of bleeding PPX: SCDs, lovenox Dispo: floor status, Attempt Cardiopulmonary Resuscitation - Inpatient Mayco Fritz MD 02/23/2022 Acute Care Surgery Pager [phone] Attending Addendum I have seen and examined the patient and reviewed the history documented above and I agree with the details as written. I have reviewed the laboratory data and viewed the pertinent imaging. The assessment and plan were formulated in discussion with me and I agree with them as documented. Jose Alfredo Vivas MD Pawan Jay Jay Kim, OT - 02/23/2022 1:05 PM EDT Occupational Therapy Evaluation Patient profile: December??is a 46 y.o.??female??with a history of CAD s/p PCI on DAPT and T2DM??who presented with progressive, severe LLE pain and is now s/p fasciotomy of left lower extremity (02/19) and wound closure (02/22). Muscle and fascia biopsies were also taken in the OR. No past medical history on file. Past Surgical History: Procedure Laterality Date ? ? PRO DEBRIDEMENT SUBCUTANEOUS TISSUE 20 SQCM/< Left 02/21/2022 DEBRIDEMENT SKIN AND SUBCU, LOWER EXTREMITY (WRVU 1.01) [facility] ??? PRO DECOMPRESS ANT/LAT+POST LEG CMPART Left 02/19/2022 FASCIOTOMY, LOWER LEG, ALL COMPARTMENTS (WRVU 7.82) performed by Lora Vivas MD at [facility] MAIN OR Social History: Patient lives w/ her 4 children ages 11-25. Home Setup: 0 ELIECER, bedroom and bathroom on 2nd floor. FOS w/ railing 3/[address] stairs. Bathroom on end floor: tub shower, standard toilet. DME: FWW, 4WW, shower chair, grab bar in the shower Baseline ADL/Mobility: Pt reports independence w/ ADLs, uses a cane most of the time for mobility. Precautions/Special Considerations: WBAT LLE, fall, up w/ assist, premedicate Subjective: I don't really want to do that right now. Following pt being cued to bear weight on her LLE Objective: Seen today for OT evaluation. Cognitive Status/Behavior: ?? Behavior / Mood: alert and cooperative ?? Alert and oriented to: person, place, time and situation ?? Follows commands: 100% of the time ?? Attention: WFL ?? Safety awareness: decreased insight into deficits and mild impairment: pt hoping to use AD not appropriate; however, verbalized understanding of education Vision & Perception: ?? WNL/WFL ?? corrective lenses representative Communication: WFL Range of motion, strength, coordination: Hand dominance: right RUE WFL for ADL, LUE decreased shoulder ROM at baseline flexion, abduction, extension ~ 30 degrees LE limitations: RLE WFL for ADL, LLE decreased strength, ankle ROM, knee/hip WFL Sensation: subjectively intact to baseline, mid-goddard to foot no sensation Activities of Daily Living: Self-feeding: Independent w/ set up Grooming: Pt set up and performed grooming task in seated position. Dressing: Pt donned/doffed all LB clothing w/ use of figure four technique sitting in bed. Pt doffed/donned shirt independently. Pt demonstrated the ability to don/doff socks. Bathing: Pt in agreement to sponge bath until she is able to tolerate bearing weight on her LLE. Toileting: Pt performed all aspects of toilet w/ SBA and use of FWW per RN report. Pt educated Functional Mobility: Supine to sit: independnt Sit to stand: conditional independence w/ FWW Ambulation: conditional independence w/ FWW, pt maintaining NWBing> bearing weight on LLE, pt able to rest toes on floor; 45' w/ rest break Stand to sit: conditional independence w/ FWW Sit to supine: independent Balance: Sitting balance: good Standing balance: fair, pt able to maintain standing balance w/ FWW and NWB of LLE; pt unable to maintain balance w/ out FWW Vitals: SpO2 93% Heart Rate 80's Pain: 9/10 LLE Skin: dressing to LLE c/d/i Education: patient have been educated on Role of occupational therapy/rehabilitation, Transfers, Assistive device/technique, Adaptive equipment training, ADL, Safety, Precautions/Protocol, Functional Mobility, Home Management, Balance, Recommendations and Discharge planning and verbalizes and demonstrates understanding. Patient status, treatment, and mobility recommendations discussed with nursing. Assessment: Pt has been seen for occupational therapy evaluation. Aracelis Berkowitz presents with the following performance skill deficits and client factors: increased pain, decreased activity tolerance, decreased strength, decreased sitting/standing balance, sensory deficits, precautions/bracing and compromised mobility status. These performance deficits have led to activity limitations and participation restrictions in the following areas of occupation: dressing, bathing, grooming, toileting, transfers/mobility, rest/sleep, home management, leisure and community mobility. However, despite the deficits listed above pt demonstrates the ability to perform all aspects of dressing, rote ADL tasks w/ set up, all aspects of toileting, and functional mobility w/ FWW. Pt educated on safety/modified techniquesperforming ADLs and beneficial DME (commode) so that pt would be able to stay on her first floor; however, due to the set up of her home she is adamant about mobilizing to her second floor to her bed and bathroom. Anticipate that pt will return home with 24/04 assistance from her children once medically ready. Do not anticipate further OT needs while hospitalized. Equipment Recommendations: Equipment Needs Upon Discharge (OT): commode (plan for vNA to assist w/ once home due to resources) Anticipated Discharge Disposition (OT): home with supervision (24/04) Other Recommendations: ?? Utilize upright chair position using bed features or transfer to recliner chair as appropriate with SBA w/ FWW, ambulate as tolerated ?? Encourage participation in ADL's by providing set up A on tray table and physical assist only as needed Plan: OT: Therapy Frequency (OT): evaluation only Total Minutes, Occupational Therapy: 55 (eval [id number]) OT Evaluation Code Rationale: ?? Diagnosis & Pertinent Co-Morbidities affecting Plan of Care: see PMHx ?? Occupational Profile & Client History: Brief Expanded Extensive x ?? Assessment of Occupational Performance: 1-3 performance deficits 3-5 performance deficits x 5 + performance deficits ?? Clinical Decision Making: Low Moderate High x Clinical decision making of moderate complexity using standardized patient assessment instrument andmeasurable assessment of functional outcome. Pager: [phone] Jay Jay Villalta OT 02/23/2022 Occupational Therapy Rehabilitation Department NICAT Zaida Yen APRN - 02/23/2022 9:32 AM EDJordan: she should not use and SGLT-2 going forward.... Images from the original note were not included. . Follow Up Diabetes Consult Patient Interview This is vastly lower the amount of insulin that she takes at home (tresiba U- 200, 100 units daily versus 16 units daily) The difference is substantial. This surprised Aracelis who remarks tht she is usually on (agree) much mor insulin and is also concerned that her Jardiance needs to be set aside. She states her logistics analytics manager is the person that put her on this--not her PCP when I suggested that her PCP would be the person that could decide if this drug should ever be used again.. Total daily dose insulin yesterday was 51 units for a range of 170-287 Objective Temp: [36.9 ??C (98.4 ??F)-37.6 ??C (99.7 ??F)] Heart Rate: -- Resp: [16-20] BP: (101-118)/(57-78) SpO2: [93 %-99 %] Heart Rate from SpO2: [74 bpm-82 bpm] Current Regimen 1. Lantus??15??units at 9am. 2. Lispro custom correction scale for BG??1:40>160 3. Meal-associated Lispro 1unit:??10??gm carb ratio for each meal Recent Glucose Levels Recent Labs 02/23/22 0737 02/23/22 0309 02/22/22 2310 02/22/22 1932 02/22/22 1611 02/22/22 1211 02/22/22 0753 02/22/22 0338 02/21/22 2328 02/21/22 2015 02/21/22 1838 02/21/22 1631 POCGLU 164 238* 201* 254* 187 287* 170 224* 164 151 118 77 ASSESSMENT Patient is a??46 y.o.??years old female??with PMH significant for DM who was admitted on 02/19/2022??for myositis. She went to the OR for a lower extremity fasciotomy during this admission. She has demonstrated poor lower extremity vascular OR interstitial flow and there for she must STOP Jardiance and utilize theother medications for her DM. Her preadmission HA1C this years have been excellent. She will do welleven without Jardiance. PLAN IF SHE STAYS: Advance lispro at meals to 0-14 with a 1: 6 ratio Advance lispro coverage to moderate q 4 hours Advance Lantus to 18 units starting tomorrow FOR AT HOME ?? Suggest at home Tresiba 10 units daily tomorrow( this is a U-200 basal insulin and ~ the = of 18 units Lantus daily ?? Suggest restart Victoza (GLP-1 is fine) ?? DO NOT RESTART JARDIANCE. SGLT-2's are never again meds in this case IMO but we defer to PCP ?? Suggest continue humalog coverage at home if needed-she has not needed it when on the above three. Jardiance will be gone so he needs may increase NOTE SENT TO PCP. 30 minutes of this 35 minute visit was spent with the patient in counseling on diabetes and treatment plan, reviewing all glucose and insulin data as well as relevant laboratory results with the patient, and coordination of care on the inpatient unit including nursing and primary team. Estrella Crowell RN - 02/23/2022 2:48 AM EDT OUTCOME EVALUATION NOTE: OUTCOME SUMMARY: No reports of SOB, chest pain, or n/v throughout shift. Complains of pain, scheduled and PRN medications were given, see MAR. Pt A&Ox4 throughout shift. VSS, will continue to monitor. PLAN MOVING FORWARD: Pain control Mobilize D/c planning INDIVIDUALIZED FALL PREVENTION INTERVENTIONS: Patient-specific fall risk factors per assessment: [current deficits]: Hospital environment, pain, pain medications Assistance [level of assistance required for transfers and ambulation]: 1 assist Supervision [direct monitoring required during toileting and ADLs]: Eyes on, hands on Surveillance [continuous indirect monitoring]: JAYLIN Cortze, bed alarm Cyndi Machado RN - 02/22/2022 7:23 PM EDT OUTCOME EVALUATION NOTE: OUTCOME SUMMARY: Patient progressing towards d/c goals appropriately at this time. Pt A&OX4, VSS on RA. Pain and numbness to the LLE, left foot is cool to touch with cap refill <3 seconds. Dressing to LLE is CDI. BG checks trending down towards end of shift, long acting insulin given this AM. Pain management plan changed by primary team, patient states her pain has been moderately controlled. Tissue culture positive for clostridium perfringens. ID team consulted, abx changed. Abx are now oral. Possible DC tomorrow. Will continue to monitor and help patient reach d/c goals. PLAN MOVING FORWARD: Pain control Mobilize Monitor BG D/C planning INDIVIDUALIZED FALL PREVENTION: Patient is currently a high risk to Fall. Patient educated on bed/chair alarm, demonstrates proper use of call gonsales and verbalizes understanding of fall preventions implemented. Patient-specific fall risk factors per assessment: [current deficits]: Pain, Medications, Hospital Environment, Impaired Mobility, Recent Surgery Assistance [level of assistance required for transfers and ambulation]: 1A w/ FWW Supervision [direct monitoring required during toileting and ADLs]: eyes on with ADL's Surveillance [continuous indirect monitoring]: Diego, Purposeful Rounding, Nurse Knowledge Exchangeat Bedside, Bed Alarm Set Lora Vivas MD - 02/22/2022 12:37 PM EDT Acute Care Surgery Progress Note Patient Name: Aracelis Berkowitz : 1975 Admit date: 02/19/2022 Attending Physician: Lora Vivas MD ID: Aracelis Berkowitz is a 46 y.o. female with a history of CAD s/p PCI on DAPT and T2DM who presented withprogressive, severe LLE pain and is now s/p fasciotomy of left lower extremity (02/19) and wound closure (02/22). Muscle and fascia biopsies were also taken in the OR. Subjective/24hr Events: - afebrile and HDS - tolerating diet - pain is not adequately controlled Current Medications: ??? insulin glargine (Lantus;Semglee) (100 unit/mL) subcutaneous injection 15 Units Subcutaneous Daily ??? oxyCODONE 10 mg Oral Q6H ??? dextromethorphan 15 mg Oral Q6H ALAN ??? insulin lispro 0-6 Units Subcutaneous Q4H ALAN ??? lidocaine 3 patch Transdermal Q24H And ??? lidocaine 3 patch Transdermal Q24H ??? insulin lispro 0-8 Units Subcutaneous TID WC ??? enoxaparin 40 mg Subcutaneous Nightly ??? aspirin EC 81 mg Oral Daily ??? citalopram 40 mg Oral Daily ??? clopidogreL 75 mg Oral Daily ??? budesonide-formoteroL 1 Inhalation Inhalation BID ??? furosemide 20 mg Oral BID ??? gabapentin 600 mg Oral BID ??? gabapentin 1,200 mg Oral Nightly ??? metoprolol succinate XL 50 mg Oral Daily ??? pantoprazole EC 20 mg Oral Daily ??? sodium chloride 0.9 % (flush) 5 mL Intravenous BID ??? docusate sodium 100 mg Oral BID ??? acetaminophen 1,000 mg Oral Q6H ALAN ??? nicotine 1 patch Transdermal Q24H And ??? nicotine 1 patch Transdermal Q24H Objective: Last value Range last 24hrs Temperature Temp: 36.6 ??C (97.9 ??F) Temp: [36.6 ??C (97.9 ??F)-36.9 ??C (98.4 ??F)] Heart Rate Heart Rate: 66 Heart Rate: [61-71] Blood Pressure BP: 110/71 BP: (80-111)/(50-71) Respiratory Rate Resp: 20 Resp: [15-20] SpO2 SpO2: 98 % SpO2: [91 %-98 %] Intake/Output Summary (Last 24 hours) at 02/22/2022 1237 Last data filed at 02/21/20221999 Gross per 24 hour Intake 260 ml Output 600 ml Net -340 ml Physical Exam: Gen: NAD, awake/alert CV: regular rate Pulm: nonlabored breathing on RA Abd: soft, NT, ND Ext: LLE with 2 dressings c/d/i. Brisk capillary refill and distal pulses Labs: Recent Labs 02/21/22 0341 WBC 8.6 HGB 12.1 HCT 37.5 PLATELET 260 Recent Labs 02/21/22 0341 02/20/22 0609 NA 137 141 K 3.9 3.8 CL 106 109* CO2 23 BUN 11 12 CREATININE 0.66* 0.57* GLUCOSE 326* 200* CALCIUM 8.3* 8.2* MAGNESIUM 0.92 0.99 PHOS 2.7 3.3 Micro: No results for input(s): URINECULTURE in the last 720 hours. No results for input(s): BLOODCX in the last 720 hours. Imaging: No results found for this visit on 02/19/22. A/P: Aracelis Berkowitz is a 46 y.o. female with a history of CAD s/p PCI on DAPT and T2DM who presented with progressive, severe LLE pain and is now s/p fasciotomy of left lower extremity. Progressing appropriately although remains in significant pain. - Plan for today: dc abx, optimtize pain control, avoid IV pain medications - Follow up OR muscle biopsies Neuro: alan tylenol, citalopram, gabapentin 600 BID and 1200 nightly, oxycodone 10mg q6, breakthrough5-10mg q3 prn, flexeril 10mg TID prn, dextromethorphan 15mg q6, zofran prn, ambien nightly CV: asa81, clopidogrel, lasix, losartan, metoprolol Pulm: encourage IS/OOB, nicotine patch, symbicort/albuterol prn FENGI: Carb Control diet 60/60/75 CHO counting level 2, LR@100, colace/miralax, PPI : JANAE ID: cefepime/flagyl Endo: resistant ISS - sugars elevated overnight. Consult to DM team. Heme: WBC down trending, Hgb 12 PPX: SCDs, lovenox Dispo: floor status, Attempt Cardiopulmonary Resuscitation - Inpatient Josh Tuttle MD 02/22/2022 [id number] Attending Addendum I have seen and examined the patient and reviewed the history documented above and I agree with the details as written. I have reviewed the laboratory data and viewed the pertinent imaging. The assessment and plan were formulated in discussion with me and I agree with them as documented. Jose Alfredo Vivas MD Alka Schaffer APRN - 02/22/2022 9:46 AM EDT Follow Up Diabetes Consult Patient Interview Pt had a roomful today. Glucose levels and insulin use reviewed. Objective Temp: [36 ??C (96.8 ??F)-36.9 ??C (98.4 ??F)] Heart Rate: [61-75] Resp: [14-21] BP: (80-111)/(46-71) SpO2: [91 %-99 %] Heart Rate from SpO2: [61 bpm-86 bpm] Current Regimen from previous note Plan: 1. Lantus 13 units if NPO or 20 units If eating. (NOT GIVEN) 2. Lispro custom correction scale for BG 1:20>140 3. Meal-associated Lispro 1unit: 10 gm carb ratio for each meal Recent Glucose Levels Recent Labs 02/22/22 0753 02/22/22 0338 02/21/22 2328 02/21/22 2015 02/21/22 1838 02/21/22 1631 02/21/22 1133 02/21/22 0913 02/21/22 0511 02/21/22 0311 02/21/22 0309 02/20/22 2356 POCGLU 170 224* 164 151 118 77 116 121 194 318* 319* 245* ASSESSMENT Patient is a 46 y.o. years old female with PMH significant for DM who was admitted on 02/19/2022 for myositis. Diabetes suboptimallycontrolled and currently complicated by elevated glucose levels. Currently with variability of blood glucose levels while hospitalized requiring adjustment of insulin regimen and DM medications. Pt used 32 units yesterday. Based on a 50/50 split, recommend Lantus 15 units this morning. Recommend decreasing correction scale to 1:40>160 (based on yesterdays TDD) PLAN 1. Lantus 15 units at 9am. 2. Lispro custom correction scale for BG 1:40>160 3. Meal-associated Lispro 1unit: 10 gm carb ratio for each meal Alka Schaffer APRN [facility] [place] Endocrinology Diabetes Management Pager [phone] 20 minutes of this 35 minute visit was spent with the patient in counseling on diabetes and treatment plan, reviewing all glucose and insulin data as well as relevant laboratory results with the patient, and coordination of care on the inpatient unit including nursing and primary team. Francine Khoury RN - 02/22/2022 5:38 AM EDT OUTCOME EVALUATION NOTE: OUTCOME SUMMARY: A+Ox4, VSS on 2L NC. Patient wears O2 at baseline at home while sleeping. Pain and numbness to LLE. Patient frequently requesting pain meds. Team notified. Dressings to LLE CDI, no drainage noted. Edema significant compared to RLE. Q4 BG checks performed. Insulin coverage given as needed. Patient voiding adequately. Pain management plan reviewed with patient. Utilizing around the clock dosing and staggering of oxy and dilaudid. IV abx continued. Patient reporting some hand tremors, RUE muscle spasmsobserved. Will continue to monitor and help patient reach d/c goals. PLAN MOVING FORWARD: ?? Pain control Mobilize Monitor I/O D/c planning ?? INDIVIDUALIZED FALL PREVENTION: Patient is currently a??high??risk to Fall. Patient educated on bed/chair alarm, demonstrates proper use of call gonsales and verbalizes understanding of fall preventions implemented. ?? Patient-specific fall risk factors per assessment: [current deficits]:?Recent surgery,??Pain, Medications, Hospital Environment. ? Assistance [level of assistance required for transfers and ambulation]:?1A w/ FWW ?? Supervision [direct monitoring required during toileting and ADLs]:?Hands on??with ADL's ?? Surveillance [continuous indirect monitoring]:?Diego Purposeful Rounding, Nurse Knowledge Exchange Cyndi Machado RN - 02/21/2022 7:59 PM EDT OUTCOME EVALUATION NOTE: OUTCOME SUMMARY: Pt to OR today for washout and wound closure. Pt hypotensive but close to baseline. Pain uncontrolled, two one time doses of IV pain meds given, refer to mar. O2 sats stable on RA. Patient DTV, bladderscan shows 89, nightshift RN notified and will perform another bladder scan. Patient tolerating oralintake. No muscle spasms noticed during day shift. Will continue to monitor and help patient reach d/c goals. PLAN MOVING FORWARD: Pain control Mobilize Monitor I/O D/C planning INDIVIDUALIZED FALL PREVENTION: Patient is currently a high risk to Fall. Patient educated on bed/chair alarm, demonstrates proper use of call gonsales and verbalizes understanding of fall preventions implemented. Patient-specific fall risk factors per assessment: [current deficits]: Recent surgery, Pain, Medications, Hospital Environment, Impaired Mobility, Recent Surgery Assistance [level of assistance required for transfers and ambulation]: 1A w/ FWW Supervision [direct monitoring required during toileting and ADLs]: Hands on with ADL's Surveillance [continuous indirect monitoring]: Masimo, Purposeful Rounding, Nurse Knowledge Exchangeat Bedside, Bed Alarm Set Melva Gonzalez RN - 02/21/2022 11:40 AM EDT 1130 - Report received and care assumed. Pt sleepy, arouses to voice states she is in pain, then goes back to sleep before answering questions related to pain. LLE elevated on pillows. 1145 - more awake, asking to go to bathroom, bedpan placed. 1200 - UTV bladder scan for 252 - will wait until she is back in room. States pain is 9 which is worse then preop asking for dilaudid. 1230 - Sleeping, resps even and unlabored. Appears comfortable. 1305 - Report called to DEVAN Hanna Lora Vivas MD - 02/21/2022 10:33 AM EDT Acute Care Surgery Progress Note Patient Name: Aracelis Berkowitz : 1975 Admit date: 02/19/2022 Attending Physician: Johan Kessler MD ID: Aracelis Berkowitz is a 46 y.o. female with a history of CAD s/p PCI on DAPT and T2DM who presented withprogressive, severe LLE pain and is now s/p fasciotomy of left lower extremity. Muscle and fascia biopsies were also taken in the OR. Subjective/24hr Events: - afebrile and HDS - tolerating diet - pain regimen increased yesterday, remains in significant pain - supplemental oxygen weaned Current Medications: ??? insulin glargine (Lantus;Semglee) (100 unit/mL) subcutaneous injection 13 Units Subcutaneous Daily ??? ceFEPime 1 g Intravenous Q8H ??? metroNIDAZOLE 500 mg Intravenous Q8H ??? insulin lispro 2-12 Units Subcutaneous Q4H ALAN ??? insulin lispro 0-8 Units Subcutaneous TID WC ??? enoxaparin 40 mg Subcutaneous Nightly ??? aspirin EC 81 mg Oral Daily ??? citalopram 40 mg Oral Daily ??? clopidogreL 75 mg Oral Daily ??? budesonide-formoteroL 1 Inhalation Inhalation BID ??? furosemide 20 mg Oral BID ??? gabapentin 600 mg Oral BID ??? gabapentin 1,200 mg Oral Nightly ??? metoprolol succinate XL 50 mg Oral Daily ??? pantoprazole EC 20 mg Oral Daily ??? sodium chloride 0.9 % (flush) 5 mL Intravenous BID ??? docusate sodium 100 mg Oral BID ??? acetaminophen 1,000 mg Oral Q6H ALAN ??? nicotine 1 patch Transdermal Q24H And ??? nicotine 1 patch Transdermal Q24H Objective: Last value Range last 24hrs Temperature Temp: 37.1 ??C (98.8 ??F) Temp: [36.6 ??C (97.9 ??F)-37.1 ??C (98.8 ??F)] Heart Rate Heart Rate: 77 Heart Rate: -- Blood Pressure BP: 108/62 BP: (100-121)/(61-73) Respiratory Rate Resp: 18 Resp: [17-25] SpO2 SpO2: 96 % SpO2: [94 %-97 %] Intake/Output Summary (Last 24 hours) at 02/21/2022 0746 Last data filed at 02/20/2022 0907 Gross per 24 hour Intake 240 ml Output 750 ml Net -510 ml Physical Exam: Gen: NAD, awake/alert CV: regular rate Pulm: nonlabored breathing on RA Abd: soft, NT, ND Ext: LLE with 2 meplix dressings saturated with sang drainage. No hematoma. Brisk capillary refill and distal pulses Labs: Recent Labs 05/23/22 0341 02/19/22 0345 WBC 8.6 10.5* HGB 12.1 14.2 HCT 37.5 42.7 PLATELET 260 311 PT -- 11.5 INR -- 1.0 PTT -- 31 Recent Labs 02/21/22 0341 02/20/22 0609 02/19/22 0345 NA 137 141 142 K 3.9 3.8 3.1* CL 106 109* 103 CO2 BUN 11 12 25* CREATININE 0.66* 0.57* 0.78 GLUCOSE 326* 200* 83 CALCIUM 8.3* 8.2* 9.0 MAGNESIUM 0.92 0.99 -- PHOS 2.7 3.3 -- Micro: No results for input(s): URINECULTURE in the last 720 hours. No results for input(s): BLOODCX in the last 720 hours. Imaging: No results found for this visit on 02/19/22. A/P: Aracelis Berkowitz is a 46 y.o. female with a history of CAD s/p PCI on DAPT and T2DM who presented with progressive, severe LLE pain and is now s/p fasciotomy of left lower extremity. Progressing appropriately although remains in significant pain. -Plan for today is RTOR to assess posterior LLE compartment and possible closure. - NPO w/ mIVF pre-op - resume diet, HLIV, pain control after surgery - current abx regimen: cefepime/flagyl - follow up OR muscle biopsies - follow up Diabetes management recs Neuro: alan tylenol, citalopram, gabapentin 600 BID and 1200 nightly, oxycodone 10-15mg q4 prn, IV dilaudid 0.2-0.6 prn, flexeril, zofran prn, ambien nightly CV: asa81, clopidogrel, lasix, losartan, metoprolol Pulm: encourage IS/OOB, nicotine patch, symbicort/albuterol prn FENGI: NPO diet (Give Meds), LR@100, colace/miralax, PPI : JANAE ID: cefepime/flagyl Endo: resistant ISS - sugars elevated overnight. Consult to DM team. Heme: WBC down trending, Hgb 12 PPX: SCDs, lovenox cAttending Addendum I have seen and examined the patient and reviewed the history documented above and I agree with the details as written. I have reviewed the laboratory data and viewed the pertinent imaging. The assessment and plan were formulated in discussion with me and I agree with them as documented. Jose Alfredo Vivas MD Kai Delcid MD - 02/21/2022 6:45 AM EDT H&P 24hr interval update/Pre-operative note Please see Dr. Tuttle's note from 02/20/2022 for further information. ID: December??is a 46 y.o.??female??with a history of CAD s/p PCI on DAPT and T2DM??who presented with progressive, severe LLE pain and is now s/p fasciotomy of left lower extremity. Muscle and fascia biopsies were also taken in the OR. S: Significant pain overnight but able to ambulate. Dried serosanguinous drainage around LLE dressings. O: Physical Exam: Patient Vitals for the past 24 hrs: Temp Heart Rate From SP02 Resp BP SpO2 O2 Flow Rate (L/min) O2 Device 02/20/22 0748 37.1 ??C (98.8 ??F) 83 bpm 20 103/61 94 % no documentation RA 02/20/22 1227 37.1 ??C (98.8 ??F) 74 bpm 18 100/62 97 % 2 L/min NC 02/20/22 1230 no documentation 74 bpm no documentation no documentation 96 % no documentation no documentation 02/20/22 1611 no documentation 81 bpm no documentation no documentation 94 % no documentation no documentation 02/20/22 1618 37.1 ??C (98.8 ??F) 81 bpm 17 107/66 94 % 2 L/min NC 02/20/22 1930 36.7 ??C (98.1 ??F) 77 bpm 25 112/72 96 % 2 L/min NC 02/21/22 0002 36.6 ??C (97.9 ??F) 85 bpm 20 121/73 94 % no documentation RA 02/21/22 0315 37.1 ??C (98.8 ??F) 75 bpm 18 108/62 96 % no documentation RA Gen: NAD, awake/alert CV: regular rate Pulm: nonlabored breathing on RA Abd: soft, NT, ND Ext: LLE with 2 dressings saturated with SS drainage. No hematoma. Brisk capillary refill and distalpulses A/P: Aracelis Berkowitz is a 46 y.o. female who presents for planned LEFT lower extremity debridement. Consent signed and scanned in media. Will proceed with planned operation. Kai Delcid MD 02/21/2022 Pager [phone] General Surgery Pager [phone] Francine Khoury RN - 02/21/2022 6:32 AM EDT OUTCOME EVALUATION NOTE: OUTCOME SUMMARY: A+Ox4, VSS on 2L NC. A+Ox4, VSS on 2L NC. Voiding adequately into toilet. Up w/ 1A and FWW. Patient endorsing pain and numbness to LLE. +3 edema and redness to calf. Dried drainage to dressings noted. Areas marked and unchanged. Pain tx w/ around the clock dosing. Bg checks q4, blood sugar high and trending up throughout shift. MD Lal notified. Diabetes management consult ordered. RUE spasms/muscle jerking noted at 0300. MD Lal notified and to bedside to assess. NPO since 0540 for debridement of RLE today. Will continue to monitor and help patient reach d/c goals. PLAN MOVING FORWARD: ?? Pain control Mobilize Monitor I/O D/c planning ?? INDIVIDUALIZED FALL PREVENTION: Patient is currently a??high??risk to Fall. Patient educated on bed/chair alarm, demonstrates proper use of call gonsales and verbalizes understanding of fall preventions implemented. ?? Patient-specific fall risk factors per assessment: [current deficits]:?Recent surgery,??Pain, Medications, Hospital Environment. ? Assistance [level of assistance required for transfers and ambulation]:?1A w/ FWW ?? Supervision [direct monitoring required during toileting and ADLs]:?Hands on??with ADL's ?? Surveillance [continuous indirect monitoring]:?Diego, Purposeful Rounding, Nurse Knowledge Exchange Estrella Crowell RN - 02/20/2022 2:52 PM EDT OUTCOME EVALUATION NOTE: OUTCOME SUMMARY: No reports of SOB, chest pain, or n/v throughout shift. Complains of pain, scheduled and PRN medications were given, see MAR. Pt A&Ox4 throughout shift. VSS, will continue to monitor. PLAN MOVING FORWARD: Pain control Mobilize D/c planning INDIVIDUALIZED FALL PREVENTION INTERVENTIONS: Patient-specific fall risk factors per assessment: [current deficits]: Hospital environment, pain, pain medications Assistance [level of assistance required for transfers and ambulation]: 1 assist Supervision [direct monitoring required during toileting and ADLs]: Eyes on, hands on Surveillance [continuous indirect monitoring]: Diego NKE, bed alarm Josh Tuttle MD - 02/20/2022 11:03 AM EDT Acute Care Surgery Progress Note Patient Name: Aracelis Berkowitz : 1975 Admit date: 02/19/2022 Attending Physician: Johan Kessler MD ID: Aracelis Berkowitz is a 46 y.o. female with a history of CAD s/p PCI on DAPT and T2DM who presented withprogressive, severe LLE pain and is now s/p fasciotomy of left lower extremity. Muscle and fascia biopsies were also taken in the OR. Subjective/24hr Events: - afebrile and HDS - tolerating diet - is in significant pain despite receiving alan tylenol, gabapentin, and 10-15mg oxycodone q6 - supplemental oxygen weaned Current Medications: ??? ceFEPime 1 g Intravenous Q8H ??? metroNIDAZOLE 500 mg Intravenous Q8H ??? insulin lispro 2-12 Units Subcutaneous Q4H ALAN ??? insulin lispro 0-8 Units Subcutaneous TID WC ??? aspirin EC 81 mg Oral Daily ??? citalopram 40 mg Oral Daily ??? clopidogreL 75 mg Oral Daily ??? budesonide-formoteroL 1 Inhalation Inhalation BID ??? furosemide 20 mg Oral BID ??? gabapentin 600 mg Oral BID ??? gabapentin 1,200 mg Oral Nightly ??? metoprolol succinate XL 50 mg Oral Daily ??? pantoprazole EC 20 mg Oral Daily ??? sodium chloride 0.9 % (flush) 5 mL Intravenous BID ??? heparin (porcine) 5,000 Units Subcutaneous Q8H ALAN ??? docusate sodium 100 mg Oral BID ??? acetaminophen 1,000 mg Oral Q6H ALAN ??? nicotine 1 patch Transdermal Q24H And ??? nicotine 1 patch Transdermal Q24H Objective: Last value Range last 24hrs Temperature Temp: 37.1 ??C (98.8 ??F) Temp: [36.8 ??C (98.2 ??F)-37.8 ??C (100 ??F)] Heart Rate Heart Rate: 77 Heart Rate: -- Blood Pressure BP: 103/61 BP: (92-103)/(52-61) Respiratory Rate Resp: 20 Resp: [16-24] SpO2 SpO2: 94 % SpO2: [92 %-96 %] Intake/Output Summary (Last 24 hours) at 02/20/2022 1103 Last data filed at 02/20/2022 0907 Gross per 24 hour Intake 2673 ml Output 2850 ml Net -177 ml Physical Exam: Gen: NAD, awake/alert CV: regular rate Pulm: nonlabored breathing on RA Abd: soft, NT, ND Ext: LLE with 2 dressings saturated with SS drainage. No hematoma. Brisk capillary refill and distalpulses Labs: Recent Labs 02/19/22 0345 WBC 10.5* HGB 14.2 HCT 42.7 PLATELET 311 PT 11.5 INR 1.0 PTT 31 Recent Labs 02/20/22 0609 02/19/22 0345 NA 141 142 K 3.8 3.1* CL 109* 103 CO2 23 27 BUN 12 25* CREATININE 0.57* 0.78 GLUCOSE 200* 83 CALCIUM 8.2* 9.0 MAGNESIUM 0.99 -- PHOS 3.3 -- Micro: No results for input(s): URINECULTURE in the last 720 hours. No results for input(s): BLOODCX in the last 720 hours. Imaging: No results found for this visit on 02/19/22. A/P: Aracelis Berkowitz is a 46 y.o. female with a history of CAD s/p PCI on DAPT and T2DM who presented with progressive, severe LLE pain and is now s/p fasciotomy of left lower extremity. Progressing appropriately. Plan for today is adequate pain control - current abx regimen: cefeprime, clindamycin, flagyl - pain control - increase oxycodone from q6 to q4, add IV dialudid Neuro: alan tylenol, citalopram, gabapentin 600 BID and 1200 nightly, oxycodone 10-15mg q4 prn, IV dilaudid 0.2-0.6 prn, flexeril, zofran prn, ambien nightly CV: asa81, clopidogrel, lasix, losartan, metoprolol Pulm: encourage IS/OOB, nicotine patch, symbicort/albuterol prn FENGI: Carb Control diet 60/60/75 CHO counting level 2, colace/miralax, PPI : JANAE ID: cefepime, flagyl, clindamycin Endo: estradiol, ISS Heme: JANAE PPX: SCDs, SQH to lovenox Dispo: floor status, Attempt Cardiopulmonary Resuscitation - Inpatient Josh Tuttle MD 02/20/2022 [id number] Associated attestation - Johan Kessler MD - 02/20/2022 2:42 PM EDT This patient was personally seen and examined on team rounds. I agree with the assessment and plan as discussed. Diagnoses and therapy were explained and all questions were answered. Chronic pain issues and licit narcotic dependency are limiting perceived efficacy of her pain control. She is meeting medical goals in that she appears comfortable and can work with nursing/etc Johan Kessler MD 02/20/2022 2:40 PM Francine Khoury RN - 02/20/2022 5:54 AM EDT OUTCOME EVALUATION NOTE: OUTCOME SUMMARY: A+Ox4, VSS on 2L NC. Bladder scanned at start of shift for 680, voided 600 and scanned for 116. Patient now voiding adequately.Dressings to LLE noted to have strike through drainage. Areas marked. Patient endorsing pain 8/10 and numbness to toes of LLE. Dp pulses +1. Prn oxy and flexeril given. Patient up to toilet 1A w/ FWW. Pain increases w/ ambulation. IV bolus completed. Adequate PO intake. Tolerating carb controlled diet. BG check b4 bed performed. Voice soft and raspy, patient reporting throatsoreness since surgery. 03:30 patient observed to have RUE muscle spasms and reporting dizziness. VSS taken and stable. Patient initially had no control of arm, then was able to move arm and sqeeze this RNs fingers while tremors proceeded. Tremors eventually tapered out over about 15-20 minute time. MD Tamar August paged. Patient states this has happened to her before one year ago. Will continue to monitor and help patient reach d/c goals. PLAN MOVING FORWARD: ?? Pain control Mobilize Monitor I/O D/c planning ?? INDIVIDUALIZED FALL PREVENTION: Patient is currently a high risk to Fall. Patient educated on bed/chair alarm, demonstrates proper use of call gonsales and verbalizes understanding of fall preventions implemented. Patient-specific fall risk factors per assessment: [current deficits]: Recent surgery, Pain, Medications, Hospital Environment. ?? Assistance [level of assistance required for transfers and ambulation]: Not OOB this shift ?? Supervision [direct monitoring required during toileting and ADLs]: Hands on with ADL's ?? Surveillance [continuous indirect monitoring]: Denys Cortez Rounding, Nurse Knowledge Exchange Marielos Amador RN - 02/19/2022 6:22 PM EDT OUTCOME EVALUATION NOTE: OUTCOME SUMMARY: Patient A&Ox4, VSS on 2L NC, though lethargic and sleeping through most of shift. Voice is hoarse and sore post OR. IV ABX run throughout day, minimal PO intake and no void since arrival to floor. Bladder scanned at 1930 for 640. Provider aware, one time IV bolus LR 1000mL ordered. Patient voided once awake at 2023 for 600mL, PVR 116. Patient's pain managed with scheduled pain medications and PRN, see MAR for medications given. No adverse events this shift. Will continue to monitor and help patient reach d/c goals. PLAN MOVING FORWARD: Pain control Mobilize Monitor I/O D/c planning INDIVIDUALIZED FALL PREVENTION: Patient is currently a high risk to Fall. Patient educated on bed/chair alarm, demonstrates proper use of call gonsales and verbalizes understanding of fall preventions implemented. Patient-specific fall risk factors per assessment: [current deficits]: Recent surgery, Pain, Medications, Hospital Environment. Assistance [level of assistance required for transfers and ambulation]: Not OOB this shift Supervision [direct monitoring required during toileting and ADLs]: Hands on with ADL's Surveillance [continuous indirect monitoring]: Masimo, Purposeful Rounding, Nurse Knowledge Exchange Josh Tuttle MD - 02/19/2022 11:07 AM EDT Acute Care Surgery Progress Note Patient Name: Aracelis Berkowitz : 1975 Admit date: 02/19/2022 Attending Physician: Lora Vivas MD ID: Aracelis Berkowitz is a 46 y.o. female with a history of CAD s/p PCI on DAPT and T2DM who presented withprogressive, severe LLE pain and is now s/p fasciotomy of left lower extremity. Muscle and fascia biopsies were also taken in the OR. Subjective/24hr Events: - s/p OR procedure above - afebrile and HDS - pain is not well controlled, patient has chronic pain at baseline Current Medications: ??? aspirin EC 81 mg Oral Daily ??? citalopram 40 mg Oral Daily ??? clopidogreL 75 mg Oral Daily ??? estradioL 1 mg Oral Daily ??? budesonide-formoteroL 1 Inhalation Inhalation BID ??? furosemide 20 mg Oral BID ??? gabapentin 600 mg Oral BID ??? gabapentin 1,200 mg Oral Nightly ??? losartan 25 mg Oral Daily ??? metoprolol succinate XL 50 mg Oral Daily ??? nicotine 1 patch Transdermal Daily ??? pantoprazole EC 20 mg Oral Daily ??? ceFEPime 1 g Intravenous Q8H ??? clindamycin 300 mg Intravenous Q8H ??? metroNIDAZOLE 500 mg Intravenous Q8H ??? sodium chloride 0.9 % (flush) 5 mL Intravenous BID ??? insulin lispro 2-12 Units Subcutaneous TID AC ??? heparin (porcine) 5,000 Units Subcutaneous Q8H ALAN ??? docusate sodium 100 mg Oral BID ??? acetaminophen 1,000 mg Oral Q6H ALAN Objective: Last value Range last 24hrs Temperature Temp: 36.4 ??C (97.5 ??F) Temp: [36.4 ??C (97.5 ??F)-36.7 ??C (98.1 ??F)] Heart Rate Heart Rate: 77 Heart Rate: [76-93] Blood Pressure BP: 97/56 BP: (90-141)/(56-91) Respiratory Rate Resp: 20 Resp: [15-22] SpO2 SpO2: 99 % SpO2: [96 %-100 %] Intake/Output Summary (Last 24 hours) at 02/19/2022 0930 Last data filed at 02/19/2022 0620 Gross per 24 hour Intake 1000 ml Output -- Net 1000 ml Physical Exam: Gen: NAD, awake/alert CV: regular rate Pulm: nonlabored breathing on 2L NC Abd: soft, NT, ND Ext: LLE with 2 dressings saturated with SS drainage. No hematoma. Brisk capillary refill Labs: Recent Labs 02/19/22 0345 WBC 10.5* HGB 14.2 HCT 42.7 PLATELET 311 PT 11.5 INR 1.0 PTT 31 Recent Labs 02/19/22 0345 NA 142 K 3.1* CL 103 CO2 27 BUN 25* CREATININE 0.78 GLUCOSE 83 CALCIUM 9.0 Micro: No results for input(s): URINECULTURE in the last 720 hours. No results for input(s): BLOODCX in the last 720 hours. Imaging: No results found for this visit on 02/19/22. A/P: Aracelis Berkowitz is a 46 y.o. female with a history of CAD s/p PCI on DAPT and T2DM who presented with progressive, severe LLE pain and is now s/p fasciotomy of left lower extremity. Progressing appropriately. Plan for today is adequate pain control and continuing supportive therapy including fluids and abx. - current abx regimen: cefeprime, clindamycin, flagyl - pain control - at baseline takes 600mg gabapentin BID and 1200mg nightly, as well as 10mg oxycodone PRN q6. Increased oxycodone and IV dilaudid available as well as tylenol and flexeril - LR@100 times out around noon, tolerating regular diet Neuro: alan tylenol, citalopram, gabapentin 600 BID and 1200 nightly, oxycodone 10-15mg q6 prn, IV dilaudid 0.2-0.6 prn, flexeril, zofran prn, ambien nightly CV: asa81, clopidogrel, lasix, losartan, metoprolol Pulm: encourage IS/OOB, nicotine patch, albuterol prn FENGI: Carb Control diet 60/60/75 CHO counting level 2, LR, colace/miralax, PPI : JANAE ID: cefepime, flagyl, clindamycin Endo: estradiol, ISS Heme: JANAE PPX: SCDs, SQH Dispo: floor status, Attempt Cardiopulmonary Resuscitation - Inpatient Josh Tuttle MD 02/19/2022 [id number] Marielos Amador RN - 02/19/2022 10:15 AM EDT Patient arrived to floor via bed from PACU . Patient A&O x 4, drowsy lungs clear, heart rate regular. Patient has hypoactive bowel sounds. Patient has 2 dressings to Left calf, noted to be with moist drainage. Patient has an IV of LR infusing at 100 in to their left arm. Patient states their painlevel is 8/10. Patient denies chest pain, shortness of breath, numbness or tingling. Patient oriented to room, call [place], [place]. RN will monitor patient. Ayush Acosta RN - 02/19/2022 7:26 AM EDT 0616 Pt arrived to PACU from OR on hospital bed, attached to monitor, receiving 6L via SFM, report received from surgery and anesthesia team. 0700 Handoff report given to Annetta HARTMAN. iQ Cm RN - 02/19/2022 7:23 AM EDT 0700 report received from laureen RN. 0700- 0850 pt complaining of 9/10 pain in left leg, specifically medial incision. Moderate bloody drainage noted under dressing. Pt medicated with Flexeril, oxycodone, dilaudid and fentanyl with littleeffect. Left leg swollen c/t right leg and sensitive to touch. Pt with intermittent chills. Afebrile. Results pending for tissue cultures, tolerating clears. VSS. WCM documented in this encounter H&P Notes Lora Vivas MD - 02/19/2022 3:24 AM EDT [facility] Department of Surgery Admission H&P CC: Left calf pain HPI: December Kayden is a 46 y.o. female with a PMH of CAD s/p PCI (on DAPT), T2DM (on insulin, unclear how well-controlled), HTN, HLD, chronic pain, and asthma who presents with a 3-day history of worsening LLE pain. She reports that a couple of weeks ago she had a syncopal episode and fell down some stairs. Since that time, she has had mild pain in her left knee, which started to worsen 3 days ago with pain radiating down her left calf. Today it has become worse and started to extend up into the lower thigh. She reports mild erythema of the calf, in addition to severe pain, and numbness/tingling of the foot and toes. PMH: As per HPI PSH: Multiple prior abdominal and orthopedic surgeries; only surgery involving LLE was harvest of tibial plateau for bone graft of left shoulder per her report MEDS: No current facility-administered medications on file prior to encounter. Current Outpatient Medications on File Prior to Encounter Medication Sig Dispense Refill ??? furosemide (Lasix) 20 mg Tablet Take 1 tablet by mouth 2 times daily. 30 tablet 3 ? ? Blood Pressure Kit Med & Lrg Kit 1 Product by [facility].(Non-Drug; Combo Route) route 2 times daily. 1 kit 0 ??? acetaminophen (Tylenol) 325 mg Tablet Take 3 tablets by mouth every 8 hours. 30 tablet 1 ??? aspirin EC 81 mg Tablet, Delayed [...] 1 tablet by mouth every other day. 30 tablet 3 ??? gabapentin (Neurontin) 400 mg Capsule Take 3 capsules by mouth nightly. 90 capsule 12 ??? losartan (Cozaar) 25 mg Tablet Take 1 tablet by mouth daily. 90 tablet 3 ??? magnesium oxide (Mag-Ox) 400 mg (241.3 mg magnesium) Tablet Take 1 tablet by mouth 2 times daily. 30 tablet 12 ??? metoprolol succinate XL (Toprol-XL) 50 mg Tablet Sustained Release 24 hr Take 1 tablet by mouth daily. 30 tablet 12 ??? nitroGLYcerin (Nitrostat) 0.4 mg Tablet, Sublingual Place 1 tablet under the tongue every 5 minutes as needed for Chest pain. 90 tablet 12 ??? gabapentin (Neurontin) 300 mg Capsule Take 2 capsules by mouth 2 times daily. 90 capsule 12 ??? Insulin Tresiba FlexTouch U-200 200 unit/mL (3 mL) Insulin Pen Inject 100 Units subcutaneously daily. Indications: type 2 diabetes mellitus 9 mL 3 ??? insulin needles, disposable, 32 gauge x Needle Inject 1 each subcutaneously daily. Indications: diabetes mellitus 100 each 11 ??? nicotine (Nicoderm CQ) 14 mg/24 hr Patch 24 hr Change 1 patch on the skin daily. 28 patch 3 ??? pantoprazole EC (Protonix) 20 mg Tablet, Delayed Release (E.C.) Take 1 tablet by mouth daily. 90tablet 3 ??? albuterol (PROVENTIL) 2.5 mg /3 mL (0.083 %) nebulizer solution Take 2.49 mg by nebulization every 6 hours as needed. ??? fluticasone-salmeterol (ADVAIR DISKUS) 500-50 mcg/dose diskus inhaler Inhale 1 puff into the lungs 2 times daily. ??? zolpidem (AMBIEN) 5 mg tablet Take 5 mg by mouth nightly as needed. ??? citalopram (CELEXA) 40 mg tablet Take 40 mg by mouth daily. ??? estradiol (ESTRACE) 1 mg tablet Take 1 mg by mouth daily. ??? OXYCODONE HCL/ACETAMINOPHEN (PERCOCET ORAL) Take 5 mg by mouth daily as needed. ALL: Allergies Allergen Reactions ??? Penicillins Spoke to mother Vicenta. Rash and SOB as a child ??? Trazodone FHx: No family history on file. SHx: Smokes 1/2 ppd, cut down recently - as recently as 2 months ago was smoking 1.5 ppd Occasional infrequent EtOH Marijuana edibles every few days ROS: As per HPI VITALS: Patient Vitals for the past 24 hrs: Temp Pulse Resp BP SpO2 O2 Device 02/19/22 0256 36.7 ??C (98.1 ??F) 77 20 110/74 98 % RA EXAM: Gen: appears uncomfortable HEENT: MMM, no scleral icterus CV: regular rate Pulm: unlabored breathing on RA GI/Abd: soft, non-tender, non-distended MSK: left calf swollen and exquisitely tender, no erythema or fluctuance, no skin changes; tenderness extending into lower medial left thigh; numbness of left toes with weakness of flexion; briskly palpable PT pulse Skin: scattered scabs in various stages of healing LABS: Pending OSH labs notable for WBC of 10.7; other labs essentially unremarkable No CRP checked, but based on other labs LRINEC score would be 0 IMAGING/DIAGNOSTICS: CT LLE - images reviewed - demonstrate significant edema of posterior muscular compartment IMPRESSION: Aracelis Berkowitz is a 46 y.o. female with a history of CAD s/p PCI on DAPT and T2DM who presents with severe LLE pain which is progressive, although without skin changes she has significant edemaon imaging. Etiology is unclear but differential includes infection vs myositis. PLAN: ?? To OR urgently for LLE fasciotomies/exploration, consented for all indicated procedures includingpossible amputation ?? NPO, IVF ?? Broad-spectrum abx Ishmael Villatoro MD [id number] 02/19/2022 3:24 AM Attending Addendum I have seen and examined the patient and reviewed the history documented above and I agree with the details as written. I have reviewed the laboratory data and viewed the pertinent imaging. The assessment and plan were formulated in discussion with me and I agree with them as documented. 46 y.o.??female??with a history of CAD s/p PCI on DAPT and T2DM??who presents with severe LLE pain which is progressive, although without skin changes she has significant edema on imaging. Etiology is unclear but differential includes infection vs myositis vs fasciitis.??Will proceed to the OR urgently for LLE fasciotomies/exploration, consented for all indicated procedures including possible amputation D. Shimon Vivas MD documented in this encounter ED Notes Chica Hinson MD - 02/19/2022 5:04 AM EDT ED Resident Note I saw this patient on 02/19/2022. History of Present Illness December Kayden is a 46 y.o. female with history of diabetes with neuropathy, hypertension, PTSD who presents to the Emergency Department as a transfer from [facility] for evaluation of leg pain. Historyis from the patient at bedside and chart review. Patient reports 3 days of progressively worsening left lower extremity pain and acsending numbness. She was seen at [facility], where lactate was normal and white blood cell count was 10. CT scan showed findings concerning for necrotizing fasciitis. She was transferred to [facility] for evaluation by general surgery. On my evaluation, the patient's pain is poorly controlled after 4 mg of morphine. She denies recent illness, but states that she has been having shaking chills yesterday into today. The patient's medications, allergies, past medical history and social history were reviewed in the chart. This patient was seen under the supervision of the above signed attending emergency physician. Review of Systems Except as otherwise described, a ten-point review of systems was performed and was negative. Physical Exam Patient Vitals for the past 24 hrs: Temp Pulse Resp BP SpO2 O2 Device 02/19/22 0256 36.7 ??C (98.1 ??F) 77 20 110/74 98 % RA 02/19/22 0330 -- -- -- 116/81 96 % -- 02/19/22 0345 -- -- -- -- 97 % -- 02/19/22 0400 -- -- -- (!) 141/91 96 % RA 02/19/22 0415 -- -- -- -- 96 % -- 02/19/22 0430 -- -- -- 129/72 98 % -- General appearance: Well-appearing, well-nourished. Resting comfortably and in no acute distress. HEENT: Normocephalic and atraumatic. Extraocular motions are intact. Pupils are equal, round and reactive to light. No conjunctival injection. No scleral icterus. Neck: Supple, full range of motion. Trachea midline. Cardiovascular: Normal rate. No murmurs, no rubs, no gallops. Capillary refill < 2 seconds. 2+ radial pulses and equal bilaterally. No peripheral edema. Pulmonary: There is no accessory muscle use or retraction. Lungs are clear to auscultation and equalbilaterally. No wheezes, no crackles, no ronchi. Abdominal: Abdomen soft, nontender, nondistended. No guarding, no rebound. No hepatosplenomegaly. Musculoskeletal: No gross deformities. Exquisite tenderness to light palpation of the left leg from mid thigh down to the ankle, and absent sensation distal to the ankle. There is no crepitus. Compartments are soft. There are no overlying skin changes. Neurological: AAOx3. Cranial nerves II-XII are grossly intact. Strength and sensation are grossly intact. Psychiatric: Appropriate mood and affect. Thought process organized. Speech goal-directed. Skin: Warm and well-perfused. No rashes. Medications Pharmacist Managed Order - Vancomycin (has no administration in time range) ceFEPime (Maxipime) 1 g in sodium chloride 0.9% 110 mL (has no administration in time range) clindamycin (Cleocin) 300 mg in sodium chloride 0.9% 52 mL (has no administration in time range) metroNIDAZOLE (Flagyl) 500 mg in sodium chloride 0.9% 100 mL infusion (has no administration in timerange) morphine (4 mg/mL) injection 4 mg (4 mg Intravenous Given 02/19/22 5910) HYDROmorphone (Dilaudid) (0.5 mg/0.5 mL) injection syringe 1 mg (1 mg Intravenous Given 02/19/22 9277) Film Library- Storage Only CT Lower Extremity Final Result Procedures None MDM 46 y.o. female with concern for necrotizing fasciitis of the left lower extremity The patient is hemodynamically normal, afebrile and nontoxic-appearing. We will administer an additional dose of Dilaudid for pain control. The patient was seen expeditiously by general surgery, who will take the patient to the operating room for exploration. She was ordered for vancomycin, cefepime, metronidazole and clindamycin prior to departure. Impression: 1. Left leg pain Disposition: Admit to operating room, general surgery Chica Hinson MD Resident 02/19/22 6915 Associated attestation - Billie Rubio MD - 02/24/2022 6:55 AM EDT ED ATTENDING ATTESTATION NOTE The patient was seen in conjunction with the resident physician. I have independently performed the romero portions of the history and physical exam. I have reviewed the nursing notes, vital signs, and all diagnostic studies personally including labs, imaging studies and EKGs. I have discussed the details of the case with the resident and agree with the assessment and plan as described in the resident note above unless noted otherwise below. CRITICAL CARE DOCUMENTATION: Is there a high potential of sudden, clinically significant, or life threatening deterioration? Yes Are there life and/or organ supporting interventions that require frequent personal assessment and manipulation or support to treat/prevent vital organ failure/deterioration? yes I personally performed 30 minutes of aggregate critical care time exclusive of procedures and teaching during this emergency department visit. This includes time spent during direct patient evaluation and reassessment, interpreting diagnostic tests, directing life and/or organ supporting interventions, and documentation. documented in this encounter Miscellaneous Notes Plan of Care - Hermelinda Lamas RN - 02/24/2022 11:00 AM EDT Patient discharged to home with [facility]NA services. IV removed, site benign. My assessment remains unchanged from my previous assessment. Patient denies shortness of breath, neurovascular checks unchanged. Discussed pain management with patient, pain tolerable. Patient medicated prior to discharge. Patient has all belongings, crutches, and supplies needed. Patient received discharge summary and prescriptions. These were reviewed. All questions answered. Patient encouraged to call with questions or concerns. Patient discharged to home with family. Discharge Summary was faxed to [facility]. Hermelinda Lamas RN Care Management Discharge - Rand Franz RN - 02/24/2022 9:48 AM EDT CARE MANAGEMENT FINAL DISCHARGE NOTE Chart reviewed, care reviewed with primary team and at interdisciplinary rounds. Patient is medically ready for discharge to Home with support of homecare services. Needs for Transition of Care: Plan for discharge is: Home w/ Services Outpatient Agency/Support Group Needs: Homecare agency Home Health Services: Registered Nurse Agency Referrals & Follow-up Care: Contact information for follow-up [facility] [address] Transportation: Family Functional status prior to admission: Independent, Assistive Equipment Home Environment: Others in the home: child(fahad), adult (lives with 25 yo son). Current Living Arrangements: home/apartment/condo. Accessibility Concerns:2 level apartment, 0 ELIECER. bedroom on the second floor.. Current Functional Ability: Assistive Equipment DME used at home: cane - straight (has a walker at home) Patient is insured through: Primary Insurance: MEDICARE Payor: MEDICARE / Plan: MEDICARE PART A & B / Product Type: *No Product type* / Secondary Insurance: MEDICAID [place] Prescription Coverage: Yes This plan was formulated with input from patient, and team. All are in agreement with plan. Rand Franz RN, BSN Case Management Plan of Care - Hermelinda Lamas RN - 02/23/2022 7:50 PM EDT OUTCOME EVALUATION NOTE: OUTCOME SUMMARY: Patient A&O x 4, VSS on 1L NC. Patient voiding adequately, up to toilet. Patient has a dressing to LLE, CDI. Patient's pain uncontrolled this AM, team adjusted PRN pain medications, and 1 time doseof Dilaudid given. Pain now moderately controlled, see MAR for medications given. Patient denies chest pain and SOB. Endorse some numbness to LLE below incision, unchanged. LLE elevated all shift, still has some swelling present though did improve. Neurovascular checks unchanged. WBAT to LLE though patient did not bear weight for comfort, SBA w/ FWW. Will continue to monitor and help patient reach d/c goals. PLAN MOVING FORWARD: Pain control Mobilize D/c planning INDIVIDUALIZED FALL PREVENTION: Patient is currently a high risk to Fall. Patient educated on bed/chair alarm, demonstrates proper use of call gonsales and verbalizes understanding of fall preventions implemented. Patient-specific fall risk factors per assessment: [current deficits]: Recent surgery, IV Sites, Pain, Medications, Hospital Environment. Assistance [level of assistance required for transfers and ambulation]: SBA w/ FWW Supervision [direct monitoring required during toileting and ADLs]: Eyes on assistance with ADL's Surveillance [continuous indirect monitoring]: Bed Alarm, Masimo, Purposeful Rounding, NKE Bedside Report CPG GOAL OUTCOME EVALUATION: Hermelinda Lamas RN Consult Note - Jamee Keating MD - 02/22/2022 9:02 PM EDT Infectious Disease Reason for consult: possible myositis with positive intraoperative culture for Clostridium perfringens Requesting: Lora Vivas MD (General Surgery) History of Present Illness: This is a 46 y/o female with DM, CAD, CHF, and several prior abdominal surgeries who is here with acute severe LLE pain. She recalls that she had a syncopal episode about a month ago, causing her to fall down a flight a stairs. She is being worked up for cardiac causes of the syncope. She hurt her left knee during the fall and has been limping due to the pain. The knee has been intermittently swelling during this time period without any outward signs of infection. About 3 days prior to her presentation, she noticed sudden pain, hardness, and swelling in her posterior calf. The area was warm to touch, but did not have any erythema or open wounds with drainage. There is some new numbness and tingling at her distal lower extremity. She did not have any fever or chills. Eventually the pain extended to her thigh, so she p resented to [facility] on 02/18/22. CT LLE showed subcutaneous fat stranding of the posterior calf suggesting cellulitis or mild contusion, but unremarkable intramuscular compartment with nohematoma and no osseous pathology. No blood cultures were collected on my verbal discussion with their Microbiology lab today. Given concern for possible necrotizing skin and soft tissue infection, shewas transferred to [facility] under General Surgery service. On arrival here, she was afebrile and hemodynamically stable. Initial labs showed WBC 10.5 (N46.6, L39, M10.3, E3.4), ESR 26, CRP 5.6, CK 75, lactate 1.6. She was started on vancomycin, cefepime, metronidazole, and clindamycin. She went to the OR on 02/19/22 for fasciotomy/exploration with muscle/fascia biopsies. Findings per operative note: Findings: medial and lateral fasciotomy incisions, posterior compartment with viable muscle with slight heme staining throughout but no clear hematoma, lateral and anterior compartment with viable muscle, muscle biopsy taken from posterior compartment muscle, fascial biopsy taken from medial and lateral calf, culture of medial and lateral calf, fascia and skin left open and packed with Aquacel Ag anddressed with mepilex Following this procedure, she was continued on cefepime and metronidazole. She returned to the OR on02/21/22 with below findings per operative note: Findings: - Old hematoma removed from medial incision, muscle soft and viable, assess posterior compartment which was soft, sent muscle biopsy for permanent - Irrigated wounds and closed with 2-0 prolene vertical mattress sutures (7cm medial incision, 6cm lateral) One culture from the left leg anterolateral compartment grew Clostridium perfringins (in broth only;gram stain without neutrophils or organisms). The rest of her cultures are negative to date. At bedside interview, Aracelis was seen hobbling to her bed from the bathroom. She states that she has been avoiding to bear weight on her LLE due to pain. She continues to have pain at her posterior calfthat is minimally improved and some distal numbness/tingling. Her thigh pain has improved. She is tolerating her antibiotics well without any issues such a new rash or GI upset. 10-point ROS: negative other than that stated in HPI. Other Medical and Surgical History: - CAD s/p stenting - DM - CHF/cardiomyopathy - HTN - HLD - Asthma - Tonsillectomy - - Sinus surgery - Abdominal exploration - Appendectomy - Left shoulder replacement with hardware and left leg bone graft Medications: reviewed Allergies/SE to antibiotics: penicillin with rash and shortness of breath as a child - but has tolerated penicillin derivatives as an adult Family History: negative for recurrent infections or immunocompromised conditions Social History: She currently lives in [facility] with her children and pet cat/dog. She smokes tobacco and is trying to quit. She drinks alcohol rarely. No recreational drug use. Objective: BP 109/68 (BP Location (NBP): Right arm, Patient Position: Sitting) Pulse 66 Temp 37.6 ??C (99.7??F) (Oral) Resp 20 Ht 162.6 cm (5' 4.02) Wt 79.4 kg (175 lb) SpO2 95% BMI 30.02 kg/m?? General: pleasant female in no acute distress HEENT: oropharynx without exudates or erythema, no oral thrush, neck supple. CV: regular rate and rhythm, no obvious murmurs Resp: clear to auscultation bilaterally; no wheezing, crackles, or rhonchi Abd: soft, non-distended, non-tender on palpation, prior surgical scar well-healed RLE: warm and well-perfused, able to move toes on command, posterior calf with swelling and tenderness on palpation Skin: no visible rashes, several tattoos noted (old per patient) Pertinent labs, microbiology, imaging and procedures were reviewed. Impression: In brief, this is a 46 y/o female with DM, CAD, CHF, and several prior abdominal surgeries who presented with acutely progressive left posterior calf pain with extension to her thigh and correspoding radiographic findings of subcutaneous edema. She was taken urgently to the OR for LLE fasciotomy on 02/19/22 that revealed viable muscles on exploration. Cultures and biopsies were sent. She returned to the OR on 02/21/22 with removal of an old hematoma and closure of her wound. We are consulted to comment on the clinical significance of the Clostridium perfringens that was recovered on one of the intraoperative cultures. It is unclear to me whether the Clostridium perfringens isolate represents an infection. Clostridiumis an obligate anaerobe that can cause aggressive necrotizing skin and soft tissue infections with gas formation. On discussion with the General Surgery, there was no obvious evidence of necrotic tissue noted intra-op. Imaging similarly only showed edema but no destructive findings or gas. She did nothave any associated infectious symptoms or significant leukocytosis (differential is interestingly not neutrophil-predominant). Her inflammatory markers were also normal. Furthermore, Clostridium was only recovered in broth on a single specimen (gram stain did not detect any neutrophils or organisms). That being said, Clostridium is not a common contaminant and was also isolated from a sterile setting. Therefore, we think it is reasonable to complete an antibiotic course for presumed skin and soft tissue infection in the absence of any clear explanation for her presentation and the high morbidity/mortality associated with these types of infection. Penicillin is typically the agent of choice for Clostridium, but metronidazole can be an alternative option in context of her reported penicillin allergy. Cephalexin can also be added to cover other typical organisms implicated in cellulitis (e.g. Staph, Strept) that may not have been recovered given receipt of antecedent antibiotics. Further recommendations to follow pending her clinical course. Recommendations: 1. Stop cefepime 2. Start cephalexin 500mg PO q6h 3. Continue metronidazole 500mg PO q6h 4. Duration TBD Following. Please call with questions. Discussed with attending, Dr. Rishabh Epstein, DO ID Fellow Red Team Pager: [phone] Infectious Diseases Attending I saw the patient with the infectious diseases fellow. I agree with the presentation of data and theassessment and plan as outlined above. Dr. Epstein has described well our dilemma of a highly potentiallypathogenic organism but found in apparently healthy tissue. She continues to have pain out of proportion with her wound and we are suggesting to maintain antimicrobial therapy which will cover this pathogen but also more typical. We will follow with you as her course clarifies. Jamee Keating MD Professor, Department of Medicine Page [phone] 55 minutes of this 80 minute visit were spent on the floor/unit in counseling or coordination of care with the patient, regarding treatment of infection as detailed in note above. Care Management - Rand Franz RN - 02/21/2022 10:56 AM EDT OFFICE OF CARE MANAGEMENT PROGRESS NOTE LOS: Hospital Day 2 days Chart reviewed, care reviewed with primary team and at interdisciplinary rounds. Patient continues to meet inpatient level of care related to: s/p fasciotomy of left lower extremity, OR today for possible partial closure. Functional status prior to admission: Independent, Assistive Equipment Home Environment: Others in the home: child(fahad), adult (lives with 25 yo son). Current Living Arrangements: home/apartment/condo. Accessibility Concerns: 2 level apartment, 0 ELIECER. bedroom on the second floor.. Current Functional Ability: Assistive Equipment DME used at home: cane - straight (has a walker at home) Patient is insured through: Primary Insurance: MEDICARE Payor: MEDICARE / Plan: MEDICARE PART A & B / Product Type: *No Product type* / Secondary Insurance: MEDICAID [place] Plan for discharge is: Home w/ Services Outpatient Agency/Support Group Needs: Homecare agency Home Health Services: Registered Nurse Agency Referrals: Enrique ESPINOSA Transportation: health plan transportation Barriers to discharge: Discharge planning Plan going forward: Care Management will continue to follow and assist with discharge planning and coordination of care as indicated. Anticipated Date of Discharge: 02/23/2022 Rand Franz RN, BSN Case Management Op Note - Edgar Sharif MD - 02/21/2022 10:51 AM EDT [facility] Operative Note Patient Name: Aracelis Berkowitz : [id number] MR#: [id number] Case Date: 02/21/2022 Surgeon: Surgeon(s) and Role: * Edgar Sharif MD - Primary * Jorge Luis Hdz MD - Resident Preoperative diagnosis: myositis, possible NSTI Postoperative diagnosis: myositis, possible NSTI Procedure(s) (LRB): DEBRIDEMENT SKIN AND SUBCU, LOWER EXTREMITY (WRVU 1.01) (Left) MODIFIER WOUND VAC (N/A) Findings: - Old hematoma removed from medial incision, muscle soft and viable, assess posterior compartment which was soft, sent muscle biopsy for permanent - Irrigated wounds and closed with 2-0 prolene vertical mattress sutures (7cm medial incision, 6cm lateral) Anesthesia: General Estimated Blood Loss: 2 mL Specimens removed during surgery: Order Name Source Comment Collection Info Order Time SPECIMEN TO PATHOLOGY myositis, possible NSTI Left Lower Leg Deep Compartment Muscle biopsy No 02/21/2022 10:11 AM Time specimen removed from patient: 10:11 AM Number of tissue samples (in container) 1 Biospecimen to store? No Drains: None Surgical Closure: Primary Closure - skin incision is completely closed without any wires, millicent, drains or other devices Disposition: awakened from anesthesia, extubated and taken to the recovery room in a stable condition, having suffered no apparent untoward event. Condition: doing well without problems HPI/Surgical Indications: 46 y.o.??female??with a history of CAD s/p PCI on DAPT and T2DM??who presented on 02/19 with severe LLE pain which was progressive, although without skin changes she has significant edema on imaging. Etiology unclear, went to OR for b/l left lower extremity fasciotomy and muscle biopsy with viable muscle, incisions left open, presents today for planned second look and partialclosure. Procedure Description: Patient was brought to the operating room and positioned supine. Pressure points were padded. The patient underwent general anesthesia and endotracheal intubation. Preoperative antibiotics were already running from floor. The left lower extremity was prepped and draped in a normal sterile fashion using chlorhexidine. A time out was performed, consent was confirmed, and all participants were in agreement to proceed. A hematoma was evacuated from the medial incision. Muscle all soft and viable with contraction with cautery and punctate bleeding. Opened posterior compartment off tibia and sent muscle for biopsy. Irrigated wound. Lateral wound muscle all appeared healthy without bulging. Anesthetized both incisions with 20cc of 0.25% marcaine. Closed with interrupted 2-0 prolene vertical mattress sutures (7cm medial incision, 6cm lateral). Covered wound with telfa, gauze and tegaderm. At the end of the case all counts were correct. The patient was woken from anesthesia and extubated having suffered no untoward event. They were brought to the PACU in stable condition. Dr. Sharif was scrubbed for the critical portions of the procedure. Surgical Infection Prevention Bundle Used? N/A Jorge Luis Hdz MD 02/21/2022 Attestation: Case Date: 02/21/2022 I was present and I participated during the entire procedure (does not need to include opening and closing). EDGAR SHARIF MD 02/23/2022 Consult Note - Alka Schaffer APRN - 02/21/2022 8:28 AM EDT Diabetes Management Team Inpatient Consult Date of Consultation: 02/21/2022 Consult Requested by: Surgery Reason for Consultation: Aracelis Berkowitz is a 46 y.o. female with PMH significant for T2DM who was admitted on 02/19/2022 currently being treated for myositis. We are being consulted to assist with diabetes management and to provide a review of penitentiary diabetes care. Diabetes History: Aracelis Berkowitz has had diabetes for a few years. Current outpatient diabetes regimen: Diabetes Provider: PCP Medications: Victoza 1.8mg daily, Jardiance 10 mg daily, Humalog up to 10 units 4 times daily based on correction scale, Tresiba 116 units daily. Monitoring is done 3-4 times a day Most recent HA1c was ordered Typical diet is: Pt limits carbs. Likes to drink water, milk, or diet pepsi during the day Typical exercise regimen is everyday living Trouble with hypoglycemia no Current Weight 79.4kg Diabetes Complications Status: Eyes: None, has eye exam yearly Kidneys: GFR on 02/21/22 was 106 Sensory: +neuropathy Autonomic: None Cardiovascular : +CAD Current Hospital Diabetes Care: Medications: Lispro 1 unit for every 10 grams of carbs with meals Lispro 1:10>140mg/dl correction scale q 4 hrs Monitoring: q 4 hrs Diet: CARB control 60/60/75 ROS: deferred PMH No past medical history on file. Current Hospital Medications: ??? insulin glargine (Lantus;Semglee) (100 unit/mL) subcutaneous injection 13 Units Subcutaneous Daily ??? ceFEPime 1 g Intravenous Q8H ??? metroNIDAZOLE 500 mg Intravenous Q8H ??? insulin lispro 2-12 Units Subcutaneous Q4H ALAN ??? insulin lispro 0-8 Units Subcutaneous TID WC ??? enoxaparin 40 mg Subcutaneous Nightly ??? aspirin EC 81 mg Oral Daily ??? citalopram 40 mg Oral Daily ??? clopidogreL 75 mg Oral Daily ??? budesonide-formoteroL 1 Inhalation Inhalation BID ??? furosemide 20 mg Oral BID ??? gabapentin 600 mg Oral BID ??? gabapentin 1,200 mg Oral Nightly ??? metoprolol succinate XL 50 mg Oral Daily ??? pantoprazole EC 20 mg Oral Daily ??? sodium chloride 0.9 % (flush) 5 mL Intravenous BID ??? docusate sodium 100 mg Oral BID ??? acetaminophen 1,000 mg Oral Q6H ALAN ??? nicotine 1 patch Transdermal Q24H And ??? nicotine 1 patch Transdermal Q24H PRN: glucose 40% oral geL OR dextrose 10% OR glucagon, [DISCONTINUED] HYDROmorphone OR HYDROmorphone OR [DISCONTINUED] HYDROmorphone, oxyCODONE, oxyCODONE, albuteroL, zolpidem, sodium chloride 0.9 % (flush), lidocaine, naloxone, ondansetron OR ondansetron, polyethylene glycoL, cyclobenzaprine Allergy: Allergies Allergen Reactions ??? Penicillins Spoke to mother Vicenta. Rash and SOB as a child ??? Trazodone Social history: Social History Tobacco Use ??? Smoking status: Current Every Day Smoker Packs/day: 0.50 ??? Smokeless tobacco: Never Used Vaping Use ??? Vaping Use: Never used Substance Use Topics ??? Alcohol use: Yes Comment: occasional ??? Drug use: No Family history: No family history on file. Vitals Last value Range last 24 hrs Temperature Temp: 37.1 ??C (98.8 ??F) Temp: [36.6 ??C (97.9 ??F)-37.1 ??C (98.8 ??F)] Heart Rate Heart Rate: 77 Heart Rate: -- Blood Pressure BP: 108/62 BP: (100-121)/(62-73) Respiratory Rate Resp: 18 Resp: [17-25] SpO2 SpO2: 96 % SpO2: [94 %-97 %] Physical Exam: deferred Labs: Lab Results Component Value Date BUN 11 02/21/2022 CREATININE 0.66 (L) 02/21/2022 GLUCOSE 326 (H) 02/21/2022 GLUCFASTING 224 (H) 09/05/2021 ESTGFR 106 02/21/2022 Lab Results Component Value Date HA1C 6.8 (H) 09/02/2021 No results found for: MICROALBUR Lab Results Component Value Date CHLPL 139 09/02/2021 Lab Results Component Value Date HDL 24 09/02/2021 Lab Results Component Value Date LDLCHOL 79 09/02/2021 Lab Results Component Value Date TRIG 178 09/02/2021 Lab Results Component Value Date CHOLHDL 5.8 09/02/2021 Assessment: Patient is a 46 y.o. years old female with PMH significant for DM who was admitted on 02/19/2022 for myositis. Diabetes suboptimallycontrolled and currently complicated by elevated glucose levels. Currently with variability of blood glucose levels while hospitalized requiring adjustment of insulin regimen and DM medications. Pt uses 116 units of tresiba at home. Which was initially in patients system requiring her to need less insulin upfront. Glucose have now started to elevate. Using TDD of 116 units, recommend gives a carb ratio of 5 and a Correction scale of 20. Pt currently has NPO status and large correction recommend giving patient 13 units this morning. Recommend changing correction scale to 1:20>150 and changing carb ratio to 1:5. Once patient is eating recommend 20 units, will most probably need to increase to twice daily. Plan: 1. Lantus 13 units if NPO or 20 units If eating. 2. Lispro custom correction scale for BG 1:20>140 3. Meal-associated Lispro 1unit: 5 gm carb ratio for each meal longterm diabetes care: Medications - Outpatient treatment regimen recommendations pending based on the hospital course. Monitoring - continue BG tid ac & hs Diet - low fat/low carb diet Exercise - weight-bearing exercise 30 min/day, as tolerated Thank you for allowing us to provide care for your patient Alka Schaffer APRN [facility] Endocrinology Diabetes Management Pager [phone] 70 minutes of this 80 minute visit was spent with the patient in counseling on diabetes and treatment plan, reviewing all glucose and insulin data as well as relevant laboratory results with the patient, and coordination of care on the inpatient unit Initial Assessments - Trinidad Solis RN - 02/20/2022 3:09 PM EDT Office of Care Management Initial Assessment Trinidad Solis RN reviewed record and discussed patient with Care Team. Source of Information: Team, bedside nurse, medical record, and Patient Introduced self/reviewed role; services accepted. Reason for Hospitalization: severe LLE pain, s/p fasciotomy of left lower extremity. Covid Vaccination Status: 1st & 2nd dose (J+J vaccine and a booster) Last COVID test: Lab Results Component Value Date [id number] Not Detected 02/19/2022 Past medical History: No past medical history on file. Hospitalizations Within the Past 30 Days: no previous admission in last 30 days Current Decision-Making Capacity: Self Advance Care Planning: Attempt Cardiopulmonary Resuscitation - Inpatient <no information> -Advanced Directive: (not on file) Current Coping/Education/Information Needs: feels updated from medical team ,awaiting further plan Current Functional Ability: Assistive Equipment Functional Status Prior to Admission: Independent, Assistive Equipment Prior ADLs & IADLs: Independent with all ADLs & IADLs Home Environment: Others in the home: child(fahad), adult (lives with 25 yo son). Current Living Arrangements: home/apartment/condo. Accessibility Concerns:2 level apartment, 0 ELIECER. bedroom on the second floor.. Resource / Environmental Concerns: Resource/Environmental Concerns: none Current DME: cane - straight (has a walker at home) Home Address confirmed as: [address] [place] [address] [place] [address] Social & Family Supports: All names listed below confirmed with patient as current and correct Extended Emergency Contact Information Primary Emergency Contact: DAVION BERKOWITZ Mobile Relation: Child Current Care Provided by: self Provides Primary Care For: no one Caregiver if needed: child(fahad), adult Quality of Family relationships: supportive Community Resources being provided currently: homecare agency Behavioral Health History: none reported Substance Use/Abuse listed: Social History Tobacco Use Smoking Status Current Every Day Smoker ??? Packs/day: 0.50 Smokeless Tobacco Never Used In the past year have you used an illegal drug or used a prescription medication for non-medical reaons?: No 0 No problems reported 1-2 Low level 3-5 Moderate level 6-8 Substantial level 9- 10 Severe level In the past year have you had 4 or more drinks a day containing alcohol?: No 0 to 7 points: Low risk 8 to 15 points: Medium risk 16 to 19 points: High risk 20 to 40 points: Addiction likely Other Pertinent/Service Specific Information: Health/Prescription Coverage: Primary Insurance: MEDICARE Payor: MEDICARE / Plan: MEDICARE PART A & B / Product Type: *No Product type* / Secondary Insurance: MEDICAID [place] Prescription Coverage: Yes Preferred Pharmacy: [facility] [address] [address] [place], [place] - [address] [facility] [address] [facility] [address] [facility] [address] [employer] [address] [place], [place] - [facility] 55 [facility] [address] Status: Patient is a : Primary Care Provider: Lora Parekh MD [phone] Patient/Caregiver Goals of Treatment: recovery post surgery Potential Needs for Transition of Care: home health care (patient uses O2 at night, has concentration at home, [employer]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 PHONE: [phone] FAX: [phone] RS please submit referral along with all supporting documentation. Transportation: no concerns Transportation Anticipated: public transportation (will need Medicaid ride arranged, came to hospital via ambulance) Concerns to be Addressed: discharge planning Assessment: Patient is admitted to ACS service, s/p fasciotomy of left lower extremity. Plan: A member of the Care Management team will continue to monitor progress, follow for continuity of care and assist with transition of care planning. Office of Care Management Surgery Team Renewals Manager Trinidad BETANCOURT, DEVAN [email or web address] Pager #[phone] Op Note - Lora Vivas MD - 02/19/2022 6:04 AM EDT [facility] Operative Note Patient Name: December Kayden : [id number] MR#: [id number] Case Date: 02/19/2022 Surgeon: Surgeon(s) and Role: * Lora Vivas MD - Primary * Ishmael Villatoro MD - Resident Preoperative diagnosis: myositis. possible NSTI. Postoperative diagnosis: myositis. possible NSTI. Procedure(s) (LRB): FASCIOTOMY, LOWER LEG, ALL COMPARTMENTS (WRVU 7.82) (Left) Findings: medial and lateral fasciotomy incisions, posterior compartment with viable muscle with slight heme staining throughout but no clear hematoma, lateral and anterior compartment with viable muscle, muscle biopsy taken from posterior compartment muscle, fascial biopsy taken from medial and lateral calf, culture of medial and lateral calf, fascia and skin left open and packed with Aquacel Ag anddressed with mepilex Anesthesia: General Estimated Blood Loss: 5 mL Specimens removed during surgery: Order Name Source Comment Collection Info Order Time SPECIMEN TO PATHOLOGY myositis. possible NSTI. left leg medial calf fascia biopsy No 02/19/2022 5:49 AM Time specimen removed from patient: 5:48 AM Number of tissue samples (in container) 1 Biospecimen to store? No SPECIMEN TO PATHOLOGY myositis. possible NSTI. left leg medial calf muscle biopsy No 02/19/2022 5:49 AM Time specimen removed from patient: 5:49 AM Number of tissue samples (in container) 1 Biospecimen to store? No SPECIMEN TO PATHOLOGY myositis. possible NSTI. left leg anterior lateral compartment fascia biopsy No 02/19/2022 5:56 AM Time specimen removed from patient: 5:55 AM Number of tissue samples (in container) 1 Biospecimen to store? No Drains: none Surgical Closure: Other Than Primary Closure - deep and superficial layers are left completely open during original surgery Disposition: awakened from anesthesia, extubated and taken to the recovery room in a stable condition, having suffered no apparent untoward event. Condition: doing well without problems (Please see the Surgical Encounter Summary for any Implant and Specimen details pertinent to this patient.) HPI/Surgical Indications: 46 y.o. female with a history of CAD s/p PCI on DAPT and T2DM who presentswith severe LLE pain which is progressive, although without skin changes she has significant edema on imaging. Etiology is unclear but differential includes infection vs myositis vs fasciitis. Will proceed to the OR urgently for LLE fasciotomies/exploration, consented for all indicated procedures including possible amputation Procedure Description: The patient was identified in preoperative holding and was taken to the operating room and general anesthesia was induced. The LLE was prepped and draped in the standard sterile fashion. Timeout was performed. Preoperative antibiotics were given. Incision was made in the midline with a #10 blade and ca rried down to the fascia medially. The saphenous vein was ligated with 3-0 silk suture. The medial fascia was opened with cautery. Posterior compartment with viable muscle with slight heme staining throughout but no clear hematoma. Fascia sent for path. Muscle biopsy taken and sent for path. Culture taken. Lateral vertical incision made through the skin with #10 blade. Fascia opened with cautery. Lateral and anterior compartment with viable muscle. Fascial specimen sent for pathology. Culture lateral calf. Hemostasis achieved. Fascia and skin left open and packed with Aquacel Ag and dressed with mepilex. All counts were correct at the end of the case. The patient was extubated in the OR and returned to the recovery area in stable condition. Attestation: Case Date: 02/19/2022 I was present and I participated during the entire procedure (does not need to include opening and closing). LORA VIVAS MD 02/19/2022 documented in this encounter Plan of Treatment Upcoming Encounters Date Type Specialty Care Team Description 08/22/2022 Appointment Cardiology 08/22/2022 Laboratory Appointment Lab 08/22/2022 Office Visit Cardiology Tameka Neal MD [facility] [address] [place] [address] (Wo rk) Scheduled Referrals Name Type Priority Associated Diagnoses Order S chedule Referral to Home Outpatient Referral Routine Hx of fasci otomy Ordered: Health Myositis of left 02/24/2022 lower leg, unspecified myositis type documented as of this encounter Procedures Procedure Name Priority Date/Time Associated Comments Diagnosis POCT GLUCOSE Routine 02/24/2022 10:24 Results for this AM EDT procedure are i n the results section. POCT GLUCOSE Routine 02/24/2022 7:36 AM Results f or this EDT procedure are i n the results section. POCT GLUCOSE Routine 02/24/2022 4:23 AM Results f or this EDT procedure are i n the results section. POCT GLUCOSE Routine 02/23/2022 11:06 Results for this PM EDT procedure are i n the results section. POCT GLUCOSE Routine 02/23/2022 8:05 PM Results f or this EDT procedure are i n the results section. POCT GLUCOSE Routine 02/23/2022 5:32 PM Results f or this EDT procedure are i n the results section. POCT GLUCOSE Routine 02/23/2022 12:15 Results for this PM EDT procedure are i n the results section. POCT GLUCOSE Routine 02/23/2022 7:37 AM Results f or this EDT procedure are i n the results section. POCT GLUCOSE Routine 02/23/2022 3:09 AM Results f or this EDT procedure are i n the results section. POCT GLUCOSE Routine 02/22/2022 11:10 Results for this PM EDT procedure are i n the results section. POCT GLUCOSE Routine 02/22/2022 7:32 PM Results f or this EDT procedure are i n the results section. POCT GLUCOSE Routine 02/22/2022 4:11 PM Results f or this EDT procedure are i n the results section. POCT GLUCOSE Routine 02/22/2022 12:11 Results for this PM EDT procedure are i n the results section. POCT GLUCOSE Routine 02/22/2022 7:53 AM Results f or this EDT procedure are i n the results section. COVID-19 PCR Routine 02/22/2022 7:49 AM Results f or this EDT procedure are i n the results section. POCT GLUCOSE Routine 02/22/2022 3:38 AM Results f or this EDT procedure are i n the results section. POCT GLUCOSE Routine 02/21/2022 11:28 Results for this PM EDT procedure are i n the results section. POCT GLUCOSE Routine 02/21/2022 8:15 PM Results f or this EDT procedure are i n the results section. POCT GLUCOSE Routine 02/21/2022 6:38 PM Results f or this EDT procedure are i n the results section. POCT GLUCOSE Routine 02/21/2022 4:31 PM Results f or this EDT procedure are i n the results section. POCT GLUCOSE Routine 02/21/2022 11:33 Results for this AM EDT procedure are i n the results section. GOLD TUBE HOLD Routine 02/21/2022 11:00 Results f or this AM EDT procedure are i n the results section. GOLD TUBE HOLD Routine 02/21/2022 11:00 Results f or this AM EDT procedure are i n the results section. SURGICAL PATHOLOGY Routine 02/21/2022 10:12 Resul ts for this REPORT AM EDT procedure are i n the results section. SPECIMEN TO PATHOLOGY Routine 02/21/2022 10:12 Re sults for this AM EDT procedure are i n the results section. MODIFIER WOUND VAC 02/21/2022 9:40 AM myositis, possib le EDT NSTI DEBRIDEMENT SKIN AND 02/21/2022 9:40 AM myositis, poss ible SUBCU, LOWER EXTREMITY EDT NSTI (WRVU 1.01) POCT GLUCOSE Routine 02/21/2022 9:13 AM Results f or this EDT procedure are i n the results section. DEBRIDEMENT SKIN AND Routine 02/21/2022 6:21 AM SUBCU, LOWER EXTREMITY EDT POCT GLUCOSE Routine 02/21/2022 5:11 AM Results f or this EDT procedure are i n the results section. HEMOGRAM Routine 02/21/2022 3:41 AM Results f or this EDT procedure are i n the results section. DIFFERENTIAL, AUTOMATED Routine 02/21/2022 3:41 AM Results for this EDT procedure are i n the results section. HC CBC,PLT & AUTO DIFF Routine 02/21/2022 3:41 AM EDT HC PHOSPHORUS, SERUM Routine 02/21/2022 3:41 AM R esults for this EDT procedure are i n the results section. HC MAGNESIUM, SERUM Routine 02/21/2022 3:41 AM Re sults for this EDT procedure are i n the results section. HEMOGLOBIN A1C Routine 02/21/2022 3:41 AM Results for this EDT procedure are i n the results section. HC VENIPUNCTURE Routine 02/21/2022 3:41 AM Result s for this EDT procedure are i n the results section. POCT GLUCOSE Routine 02/21/2022 3:11 AM Results f or this EDT procedure are i n the results section. POCT GLUCOSE Routine 02/21/2022 3:09 AM Results f or this EDT procedure are i n the results section. POCT GLUCOSE Routine 02/20/2022 11:56 Results for this PM EDT procedure are i n the results section. POCT GLUCOSE Routine 02/20/2022 8:22 PM Results f or this EDT procedure are i n the results section. POCT GLUCOSE Routine 02/20/2022 6:04 PM Results f or this EDT procedure are i n the results section. POCT GLUCOSE Routine 02/20/2022 4:11 PM Results f or this EDT procedure are i n the results section. POCT GLUCOSE Routine 02/20/2022 12:30 Results for this PM EDT procedure are i n the results section. POCT GLUCOSE Routine 02/20/2022 7:07 AM Results f or this EDT procedure are i n the results section. HC PHOSPHORUS, SERUM STAT 02/20/2022 6:09 AM R esults for this EDT procedure are i n the results section. HC MAGNESIUM, SERUM STAT 02/20/2022 6:09 AM Re sults for this EDT procedure are i n the results section. HC VENIPUNCTURE STAT 02/20/2022 6:09 AM Result s for this EDT procedure are i n the results section. POCT GLUCOSE Routine 02/19/2022 11:34 Results for this PM EDT procedure are i n the results section. POCT GLUCOSE Routine 02/19/2022 5:14 PM Results f or this EDT procedure are i n the results section. POCT GLUCOSE Routine 02/19/2022 10:53 Results for this AM EDT procedure are i n the results section. RAPID COVID-19 PCR Routine 02/19/2022 7:06 AM Res ults for this ([facility]) EDT procedure are in the results section. POCT GLUCOSE Routine 02/19/2022 6:21 AM Results f or this EDT procedure are i n the results section. ANAEROBIC CULTURE Routine 02/19/2022 6:00 AM Resu lts for this EDT procedure are i n the results section. ANAEROBIC CULTURE Routine 02/19/2022 6:00 AM Resu lts for this EDT procedure are i n the results section. HC GRAM STAIN FOR Routine 02/19/2022 6:00 AM BACTERIA EDT HC GRAM STAIN FOR Routine 02/19/2022 6:00 AM BACTERIA EDT TISSUE CULTURE Routine 02/19/2022 6:00 AM Results for this EDT procedure are i n the results section. TISSUE CULTURE Routine 02/19/2022 6:00 AM Results for this EDT procedure are i n the results section. SPECIMEN TO PATHOLOGY Routine 02/19/2022 5:56 AM Results for this EDT procedure are i n the results section. SURGICAL PATHOLOGY Routine 02/19/2022 5:49 AM Res ults for this REPORT EDT procedure are i n the results section. SPECIMEN TO PATHOLOGY Routine 02/19/2022 5:49 AM Results for this EDT procedure are i n the results section. SPECIMEN TO PATHOLOGY Routine 02/19/2022 5:49 AM Results for this EDT procedure are i n the results section. L-LACTATE2 WHOLE BLOOD Routine 02/19/2022 5:09 AM Results for this EDT procedure are i n the results section. FASCIOTOMY, LOWER LEG, 02/19/2022 5:08 AM myositis. po ssible ALL COMPARTMENTS (WRVU EDT NSTI. 7.82) FASCIOTOMY, LOWER LEG, Routine 02/19/2022 4:14 AM ALL COMPARTMENTS EDT HC C-REACTIVE PROTEIN STAT 02/19/2022 3:45 AM Results for this EDT procedure are i n the results section. SCAN, PERIPHERAL BLOOD STAT 02/19/2022 3:45 AM Results for this EDT procedure are i n the results section. HEMOGRAM STAT 02/19/2022 3:45 AM Results f or this EDT procedure are i n the results section. DIFFERENTIAL, AUTOMATED STAT 02/19/2022 3:45 AM Results for this EDT procedure are i n the results section. HC PARTIAL STAT 02/19/2022 3:45 AM Results f or this THROMBOPLASTIN TIME EDT procedur e are in the results section. HC ESR-SEDIMENTATION STAT 02/19/2022 3:45 AM R esults for this RATE, BLOOD EDT procedure are i n the results section. HC PROTHROMBIN TIME STAT 02/19/2022 3:45 AM Re sults for this EDT procedure are i n the results section. HC CBC,PLT & AUTO DIFF STAT 02/19/2022 3:45 AM EDT CK STAT 02/19/2022 3:45 AM Results f or this EDT procedure are i n the results section. BASIC METABOLIC PANEL STAT 02/19/2022 3:45 AM Results for this (NON-FASTING) EDT procedure are in the results section. FILM LIBRARY STORAGE STAT 02/18/2022 12:00 Res ults for this ONLY CT LOWER EXTREMITY AM EDT proc edure are in the results section. documented in this encounter Results (ABNORMAL) POCT Glucose (02/24/2022 10:24 AM EDT) P athologist Signature POC Glucose 218 (H) 65 - 199 [facility] mg/dL [facility] Comment: Supplemental ranges: <140 mg/dL before meals <180 mg/dL all other times of the day Specimen Anatomical Collection Method Collection Time Receive d Time (Source) Location / / Volume Laterality Blood 02/24/2022 10:24 02/24/2022 AM EDT 10:24 AM EDT Lora Vivas MD POINT OF CARE TEST ORDERABLE S Performing Organization Address City/State/[place] [address] (ABNORMAL) POCT Glucose (02/24/2022 7:36 AM EDT) athologist Signature POC Glucose 247 (H) 65 - 199 [place] mg/dL [facility] Comment: Supplemental ranges: <140 mg/dL before meals <180 mg/dL all other times of the day Specimen Anatomical Collection Method Collection Time Receive d Time (Source) Location / / Volume Laterality Blood 02/24/2022 7:36 AM 2 7:36 EDT AM EDT Lora Vivas MD POINT OF CARE TEST ORDERABLE S Performing Organization Address City/[facility]/[place] [address] POCT Glucose (02/24/2022 4:23 AM EDT) athologist Signature POC Glucose 116 65 - 199 [place] mg/dL [facility] Comment: Supplemental ranges: <140 mg/dL before meals <180 mg/dL all other times of the day Specimen Anatomical Collection Method Collection Time Receive d Time (Source) Location / / Volume Laterality Blood 02/24/2022 4:23 AM 2 4:23 EDT AM EDT Lora Vivas MD POINT OF CARE TEST ORDERABLE S Performing Organization Address City/State/[place] [address] POCT Glucose (02/23/2022 11:06 PM EDT) athologist Signature POC Glucose 126 65 - 199 [place] mg/dL [facility] Comment: Supplemental ranges: <140 mg/dL before meals <180 mg/dL all other times of the day Specimen Anatomical Collection Method Collection Time Receive d Time (Source) Location / / Volume Laterality Blood 02/23/2022 11:06 02/23/2022 PM EDT 11:06 PM EDT Lora Vivas MD POINT OF CARE TEST ORDERABLE S Performing Organization Address City/State/[place] [address] POCT Glucose (02/23/2022 8:05 PM EDT) athologist Signature POC Glucose 168 65 - 199 [place] mg/dL [facility] Comment: Supplemental ranges: <140 mg/dL before meals <180 mg/dL all other times of the day Specimen Anatomical Collection Method Collection Time Receive d Time (Source) Location / / Volume Laterality Blood 02/23/2022 8:05 PM 2 8:05 EDT PM EDT Lora Vivas MD POINT OF CARE TEST ORDERABLE S Performing Organization Address City/State/[place] [address] (ABNORMAL) POCT Glucose (02/23/2022 5:32 PM EDT) athologist Signature POC Glucose 209 (H) 65 - 199 [place] mg/dL [facility] Comment: Supplemental ranges: <140 mg/dL before meals <180 mg/dL all other times of the day Specimen Anatomical Collection Method Collection Time Receive d Time (Source) Location / / Volume Laterality Blood 02/23/2022 5:32 PM 2 5:32 EDT PM EDT Lora Vivas MD POINT OF CARE TEST ORDERABLE S Performing Organization Address City/State/ZIP Code Phon e Number [place] [id number] POCT Glucose (02/23/2022 12:15 PM EDT) athologist Signature POC Glucose 157 65 - 199 [place] mg/dL [facility] Comment: Supplemental ranges: <140 mg/dL before meals <180 mg/dL all other times of the day Specimen Anatomical Collection Method Collection Time Receive d Time (Source) Location / / Volume Laterality Blood 02/23/2022 12:15 02/23/2022 PM EDT 12:15 PM EDT Lora Vivas MD POINT OF CARE TEST ORDERABLE S Performing Organization Address City/State/[place] [address] POCT Glucose (02/23/2022 7:37 AM EDT) athologist Signature POC Glucose 164 65 - 199 [facility] [place] mg/dL [facility] Comment: Supplemental ranges: <140 mg/dL before meals <180 mg/dL all other times of the day Specimen Anatomical Collection Method Collection Time Receive d Time (Source) Location / / Volume Laterality Blood 02/23/2022 7:37 AM 2 7:37 EDT AM EDT Lora Vivas MD POINT OF CARE TEST ORDERABLE S Performing Organization Address City/State/[place] [address] (ABNORMAL) POCT Glucose (02/23/2022 3:09 AM EDT) athologist Signature POC Glucose 238 (H) 65 - 199 [facility] Comment: Supplemental ranges: <140 mg/dL before meals <180 mg/dL all other times of the day Specimen Anatomical Collection Method Collection Time Receive d Time (Source) Location / / Volume Laterality Blood 02/23/2022 3:09 AM 2 3:09 EDT AM EDT Lora Vivas MD POINT OF CARE TEST ORDERABLE S Performing Organization Address City/State/[place] [address] (ABNORMAL) POCT Glucose (02/22/2022 11:10 PM EDT) athologist Signature POC Glucose 201 (H) 65 - 199 [place] mg/dL [facility] Comment: Supplemental ranges: <140 mg/dL before meals <180 mg/dL all other times of the day Specimen Anatomical Collection Method Collection Time Receive d Time (Source) Location / / Volume Laterality Blood 02/22/2022 11:10 02/22/2022 PM EDT 11:10 PM EDT Lora Vivas MD POINT OF CARE TEST ORDERABLE S Performing Organization Address City/State/[place] [address] (ABNORMAL) POCT Glucose (02/22/2022 7:32 PM EDT) P athologist Signature POC Glucose 254 (H) 65 - 199 [place] mg/dL [facility] Comment: Supplemental ranges: <140 mg/dL before meals <180 mg/dL all other times of the day Specimen Anatomical Collection Method Collection Time Receive d Time (Source) Location / / Volume Laterality Blood 02/22/2022 7:32 PM 2 7:32 EDT PM EDT Lora Vivas MD POINT OF CARE TEST ORDERABLE S Performing Organization Address City/State/[place] [address] POCT Glucose (02/22/2022 4:11 PM EDT) athologist Signature POC Glucose 187 65 - 199 [place] mg/dL [facility] Comment: Supplemental ranges: <140 mg/dL before meals <180 mg/dL all other times of the day Specimen Anatomical Collection Method Collection Time Receive d Time (Source) Location / / Volume Laterality Blood 02/22/2022 4:11 PM 2 4:11 EDT PM EDT Lora Vivas MD POINT OF CARE TEST ORDERABLE S Performing Organization Address City/State/ZIP Code Phon e Number [place] [phone] (ABNORMAL) POCT Glucose (02/22/2022 12:11 PM EDT) athologist Signature POC Glucose 287 (H) 65 - 199 [place] mg/dL [facility] Comment: Supplemental ranges: <140 mg/dL before meals <180 mg/dL all other times of the day Specimen Anatomical Collection Method Collection Time Receive d Time (Source) Location / / Volume Laterality Blood 02/22/2022 12:11 02/22/2022 PM EDT 12:11 PM EDT Lora Vivas MD POINT OF CARE TEST ORDERABLE S Performing Organization Address City/State/ZIP Code [place] [address] [facility] [address] POCT Glucose (02/22/2022 7:53 AM EDT) P athologist Signature POC Glucose 170 65 - 199 [place] mg/dL [facility] Comment: Supplemental ranges: <140 mg/dL before meals <180 mg/dL all other times of the day Specimen Anatomical Collection Method Collection Time Receive d Time (Source) Location / / Volume Laterality Blood 02/22/2022 7:53 AM 7:53 EDT AM EDT Lora Vivas MD POINT OF CARE TEST ORDERABLE S Performing Organization Address City/State/ZIP Code Phon e Number [address] COVID-19 PCR (02/22/2022 7:49 AM EDT) Patholo gist Method Time Signature SARS-CoV-2 Not Detected Not Detected [place] RNA [facility] Comment: This result should be interpreted in com bination with the clinical observations, patient history and epidem iological information in making a final diagnosis. For testing of asymptomatic i ndividuals, assay performance characteristics and clinical utility hav e not been evaluated. Testing for SARS-CoV-2 (Severe acute respiratory syn drome coronavirus 2, formerly known as 2019 novel coronavirus or 2019-nCoV) to aid in the diagnosis of COVID-19 is performed using the [employer] Alinity m LALI S-CoV-2 Assay as authorized by the FDA Emergency Use Authorization (EUA). This EUA assay is intended for In-vitro Diagnostic (IVD) use with respiratory sp ecimens such as nasopharyngeal swabs collected from individuals during the ac devante phase of infection. This assay is performed based on the instructions for use provided by [employer] and additional guidance provided by CDC and FDA. Testing is performed in the [facility] within the Department of Pathology and Laboratory Medicine at [facility], certified under the Clinical Laboratory Improvement Amendments of 1988 (CLIA), 42 U.S.C. 263a, to perform high complexi ty tests. Assay performance has been verified according to clinical laborator y regulatory requirements for use with specimens collected from individuals kyleigh pected of COVID-19. Test results are provided above. A result of Not Detecte d indicates that the viral RNA target is not present above the limit of detect ion, but does not preclude SARS-CoV-2 infection. False negative results may oc cur if a specimen is improperly collected, transported or handled; if am plification inhibitors are present; or if inadequate numbers of viral particles are present in the specimen. When a diagnostic test is negative, the possibi lity of a false negative result should be considered in the context of a patien t's recent exposures and the presence of clinical signs and symptoms consisten t with COVID-19. A result of Detected indicates that RNA from SARS-CoV-2 was d etected and the patient is infected. As required or requested by public health a uthorities, positive specimens may be sent for additional testing. Positive an d negative predictive values for this test are highly dependent on disease pre valence. A result of Invalid indicates that neither the viral RNA tar gets nor the internal control target was detected. An invalid result suggests the presence of inhibitors. Recollection and re-testing is recommend ed in the case of an invalid result. CDC COVID-19 criteria for testing on hum an specimens and clinical management guidance information are available at [facility] CDC Coronavirus Disease 2019 (COVID-19) webpage under Information fo r Healthcare Professionals (https://www.cdc.gov/coronavirus/2019-nc ov/hcp/index.html) Additional information about this and ot her EUA tests can be found in provider and patient fact sheets at the following FDA website: https://www.fda.gov/medical-devices/mrrplqsrmfm-aowrhif-7243-nhrsh-90-tzijweqgd- vom-eaviaxybtnvgol-ybgzzcx-devices/sereo-abujnrravlm-rdqn SARS-Cov-2 RNA Source CONSULTING [employer] FORESTER Swab [facility] Specimen (Source) Anatomical Collection Method Collection Time Re ceived Time Location / / Volume Laterality Nasopharyngeal Swab 02/22/2022 7:49 02/22 AM EDT 11:54 AM EDT Comment: Symptoms->Surveillance Resulting Agency Comment Spec In Lab Johan Kessler MD MICROBIOLOGY - GENERAL ORDER ERIN Performing Organization Address City/State/[place] [address] (ABNORMAL) POCT Glucose (02/22/2022 3:38 AM EDT) athologist Signature POC Glucose 224 (H) 65 - 199 [place] mg/dL [facility] Comment: Supplemental ranges: <140 mg/dL before meals <180 mg/dL all other times of the day Specimen Anatomical Collection Method Collection Time Receive d Time (Source) Location / / Volume Laterality Blood 02/22/2022 3:38 AM 2 3:38 EDT AM EDT Lora Vivas MD POINT OF CARE TEST ORDERABLE S Performing Organization Address City/State/[place] [address] POCT Glucose (02/21/2022 11:28 PM EDT) athologist Signature POC Glucose 164 65 - 199 [facility] mg/dL [facility] Comment: Supplemental ranges: <140 mg/dL before meals <180 mg/dL all other times of the day Specimen Anatomical Collection Method Collection Time Receive d Time (Source) Location / / Volume Laterality Blood 02/21/2022 11:28 02/21/2022 PM EDT 11:28 PM EDT Lora Vivas MD POINT OF CARE TEST ORDERABLE S Performing Organization Address City/State/[place] [address] POCT Glucose (02/21/2022 8:15 PM EDT) athologist Signature POC Glucose 151 65 - 199 [place] mg/dL [facility] Comment: Supplemental ranges: <140 mg/dL before meals <180 mg/dL all other times of the day Specimen Anatomical Collection Method Collection Time Receive d Time (Source) Location / / Volume Laterality Blood 02/21/2022 8:15 PM 2 8:15 EDT PM EDT Lora Vivas MD POINT OF CARE TEST ORDERABLE S Performing Organization Address City/State/[place] [address] POCT Glucose (02/21/2022 6:38 PM EDT) athologist Signature POC Glucose 118 65 - 199 [place] mg/dL [facility] Comment: Supplemental ranges: <140 mg/dL before meals <180 mg/dL all other times of the day Specimen Anatomical Collection Method Collection Time Receive d Time (Source) Location / / Volume Laterality Blood 02/21/2022 6:38 PM 2 6:38 EDT PM EDT Lora Vivas MD POINT OF CARE TEST ORDERABLE S Performing Organization Address City/State/[place] [address] POCT Glucose (02/21/2022 4:31 PM EDT) athologist Signature POC Glucose 77 65 - 199 [facility] [place] mg/dL [facility] Comment: Supplemental ranges: <140 mg/dL before meals <180 mg/dL all other times of the day Specimen Anatomical Collection Method Collection Time Receive d Time (Source) Location / / Volume Laterality Blood 02/21/2022 4:31 PM 2 4:31 EDT PM EDT Johan Kessler MD POINT OF CARE TEST ORDERABLE S Performing Organization Address City/State/ZIP Code Phon e Number [address] POCT Glucose (02/21/2022 11:33 AM EDT) athologist Signature POC Glucose 116 65 - 199 [place] mg/dL [facility] Comment: Supplemental ranges: <140 mg/dL before meals <180 mg/dL all other times of the day Specimen Anatomical Collection Method Collection Time Receive d Time (Source) Location / / Volume Laterality Blood 02/21/2022 11:33 02/21/2022 AM EDT 11:33 AM EDT Johan Kessler MD POINT OF CARE TEST ORDERABLE S Performing Organization Address City/State/[place] [address] Gold Tube HOLD (02/21/2022 11:00 AM EDT) P athologist Signature Gold Hold Sample in [facility]. [facility] Specimen Anatomical Collection Method Collection Time Receive d Time (Source) Location / / Volume Laterality Blood No Charge / 02/21/2022 11:00 02/21/2022 Unknown AM EDT 11:12 AM EDT Jorge Luis Hdz MD CHEMISTRY ORDERABLES Performing Organization Address [facility]/ZIP [facility] [place], [place] Phon e Number [address] Gold Tube HOLD (02/21/2022 11:00 AM EDT) P athologist Signature Gold Hold Sample in [facility]. [facility] Specimen Anatomical Collection Method Collection Time Receive d Time (Source) Location / / Volume Laterality Blood No Charge / 02/21/2022 11:00 02/21/2022 Unknown AM EDT 11:12 AM EDT Jorge Luis Hdz MD CHEMISTRY ORDERABLES Performing Organization Address City/[facility] Phon e Number [address] Surgical Pathology Report (02/21/2022 10:12 AM EDT) Component Value Ref Test Analysis Performed At [facility] gist Range Method Time Signature Surgical [id number] ? Location: [facility]; [facility]; [facility] Report The signing pathologist has (i) examined the relevant preparation(s) for the [facility] specimen(s) and (ii) rendered or confirmed the diagnosis(es) . HOSPITAL LABORATORY . ?Surgic al Pathology DIAGNOSIS A - Left lower leg, deep compartment muscle; bibopsy: ? Viable skeletal muscle with no neutrophilic inf lammation or necrosis; ?patchy mild perivascular/interstitial lymphocytic infl ammation only. Electronically signed by: ?Nitish OROPEZA, Wilian Menezes Verified: ??02/24/2022 16:17 ??Pathologist Performed at: ??-[facility] [place] [facility] Dept. of Pathology, [place], [place] SPECIMEN(S) SUBMITTED A - Left lower leg, deep compartment muscle CLINICAL INFORMATION [NOT PROVIDED] see ??[id number] as well. SPECIMEN PROCESSING A - Labeled/Fixative: ?? Left lower leg deep compartment mus sudha , fresh. Quantity/Size: Single, 0.6 x 0.4 x 0.2 cm. Tissue Description: Irregular, richey-pink soft tissue. Sections/Processing: Entirely submitted in 1 cassette labele d A1. ??pps Specimen (Source) Anatomical Collection Method Collection Time Re ceived Time Location / / Volume Laterality 02/21/2022 10:12 AM EDT Jorge Luis Hdz MD PATHOLOGY/CYTOLOGY ORDERABLE S Performing Organization Address City/[facility]/ZIP Code Phon e Number [address] Specimen to Pathology (02/21/2022 10:12 AM EDT) Specimen Anatomical Collection Method Collection Time Receive d Time (Source) Location / / Volume Laterality AP Specimen 02/21/2022 10:12 02/21/2022 AM EDT 10:12 AM EDT Narrative [facility] - 02/21/2022 10:12 AM EDT Specimen requisition ordered. ??Separate Pathology report to follow Johan Kessler MD PATHOLOGY/CYTOLOGY ORDERABLE S Performing Organization Address City/[facility]/[place] [address] POCT Glucose (02/21/2022 9:13 AM EDT) athologist Signature POC Glucose 121 65 - 199 [facility] mg/dL [facility] Comment: Supplemental ranges: <140 mg/dL before meals <180 mg/dL all other times of the day Specimen Anatomical Collection Method Collection Time Receive d Time (Source) Location / / Volume Laterality Blood 02/21/2022 9:13 AM 9:13 EDT AM EDT Johan Kessler MD POINT OF CARE TEST ORDERABLE S Performing Organization Address City/State/[place] [address] POCT Glucose (02/21/2022 5:11 AM EDT) athologist Signature POC Glucose 194 65 - 199 [facility] mg/dL [facility] Comment: Supplemental ranges: <140 mg/dL before meals <180 mg/dL all other times of the day Specimen Anatomical Collection Method Collection Time Receive d Time (Source) Location / / Volume Laterality Blood 02/21/2022 5:11 AM 2 5:11 EDT AM EDT Johan Kessler MD POINT OF CARE TEST ORDERABLE S Performing Organization Address City/State/ZIP Code Phon e Number [address] Hemoglobin A1c (02/21/2022 3:41 AM EDT) athologist Signature Hemoglobin A1C 5.6 4.3 - 5.6 [facility] % [facility] Comment: Reference Range: 4.3 - [...] Mellitus, Diabetes Care 2013; 36: Suppl. 1, D37-34 Est Avg Gluc 114 mg/dL [facility] Comment: eAG equivalents for HbA1c percentages: HbA1c(%) ?eAG(mg/dL) 6.0 ?126 6.5 ?140 7.0 ?154 7.5 ?169 8.0 ?183 8.5 ?197 9.0 ?212 9.5 ?226 10.0 ? 240 Limitations: The eAG calculation has not been validated on women, individuals below 18 years old and above 70 years old, and individuals with hemoglobinopathies. Additional resources are available on [facility] website. Arnel TSE, Louis J, Anthony R, et al. ??Tr anslating the A1C assay into estimated average glucose values. ??Diabetes Care 2008:31(8):7056-0918. Specimen Anatomical Collection Method Collection Time Receive d Time (Source) Location / / Volume Laterality Blood Venous Draw / 02/21/2022 3:41 AM 02/22/20 22 Unknown EDT 10:02 AM EDT Resulting Agency Comment Spec In Lab Alka Schaffer APRN CHEMISTRY ORDERABLES Performing Organization Address City/State/[place] [address] (ABNORMAL) Differential, Automated (02/21/2022 3:41 AM EDT) [facility] gist Method Time Signature Neutrophils % 51.7 % [facility] Neutr Abs (ANC) 4.44 1.70 - [facility] 6.10 [facility] x10(3)/[facility] LABORATORY Lymphocytes % 30.7 % [facility] Lymphocytes Abs 2.6 0.9 - 3.2 [facility] x10(3)/[facility] LABORATORY Monocytes % 9.2 % [facility] Monocyte Abs 0.8 0.3 - 0.9 [facility] x10(3)/[facility] LABORATORY Eosinophils % 7.7 % [facility] Eosinophils Abs 0.7 (H) 0.0 - 0.4 [facility] x10(3)/[facility] LABORATORY Basophils % 0.5 % [facility]ORY Basophils Abs 0.0 0.0 - 0.1 [facility] x10(3)/[facility] LABORATORY Immature Gran % 0.20 % [...] Anaya Gran Abs 0.02 0.00 - 0.04 x10(3)/[facility] MAR Y [facility] LABORATORY Specimen Anatomical Collection Method Collection Time Receive d Time (Source) Location / / Volume Laterality Blood 02/21/2022 3:41 AM 3:51 EDT AM EDT Resulting Agency Comment Spec In Lab Jorge Luis Hdz MD HEMATOLOGY ORDERABLES Performing Organization Address City/State/ZIP Code Phon e Number [place] [id number] (ABNORMAL) Hemogram (02/21/2022 3:41 AM EDT) Analysis Performed At Patho logist Time Signature WBC 8.6 4.0 - 9.5 [facility] x10(3)/[facility] LABORATORY RBC 4.07 4.00 - [facility] 5.21 [facility] x10(6)/[facility] LABORATORY Hemoglobin 12.1 11.7 - [facility] 15.5 g/dL [facility] Hematocrit 37.5 35.7 - [facility] 45.8 % [facility] MCV 92.1 82.6 - [facility] 94.4 [facility] LABORATORY MCH 29.7 27.1 - [facility] 32.0 pg [facility] MCHC 32.3 31.7 - [facility] 35.0 g/dL [facility] Platelets 260 145 - 357 [facility] x10(3)/[facility] LABORATORY RDWSD 49.5 (H) 37.0 - [facility] 46.0 [facility] LABORATORY RDWCV 14.6 (H) 11.5 - [facility] 14.1 % [facility] LABORATORY MPV 10.4 7.6 - 12.9 [facility] LABORATORY nRBC % Auto 0.0 % [facility] LABORATORY nRBC Abs Auto 0.000 0.000 - [place] [facility] 0.000 [facility] x10(3)/[facility] LABORATORY Specimen Anatomical Collection Method Collection Time Receive d Time (Source) Location / / Volume Laterality Blood 02/21/2022 3:41 AM 2 3:51 EDT AM EDT Resulting Agency Comment Spec In Lab Jorge Luis Hdz MD HEMATOLOGY ORDERABLES Performing Organization Address City/[facility]/ZIP Code Phon e Number [address] Phosphorus (02/21/2022 3:41 AM EDT) athologist Signature Phosphorus 2.7 2.5 - 4.5 [facility] Specimen Anatomical Collection Method Collection Time Receive d Time (Source) Location / / Volume Laterality Blood 02/21/2022 3:41 AM 2 3:51 EDT AM EDT Resulting Agency Comment Spec In Lab Johan Kessler MD CHEMISTRY ORDERABLES Performing Organization Address City/[facility]/ZIP Code Phon e Number [address] Magnesium (02/21/2022 3:41 AM EDT) athologist Signature Magnesium 0.92 0.69 - 1.07 [facility] mmol/L [facility] Specimen Anatomical Collection Method Collection Time Receive d Time (Source) Location / / Volume Laterality Blood 02/21/2022 3:41 AM 2 3:51 EDT AM EDT Resulting Agency Comment Spec In Lab Johan Kessler MD CHEMISTRY ORDERABLES Performing Organization Address City/[facility]/[place] [address] (ABNORMAL) Basic Metabolic Panel (non-fasting) (02/21/2022 3:41 AM EDT) athologist Signature Glucose Lvl 326 (H) 65 - 199 [facility] Comment: Diabetes: >=200 mg/dL plus symp toms BUN 11 8 - 18 mg/dL [facility] Creatinine 0.66 (L) 0.70 - 1.20 mg/dL [facility] Sodium 137 135 - 145 mmol/L [facility] Potassium 3.9 3.5 - 5.0 mmol/L [facility] Comment: Please note: ??Patients with WBC >100,00 0 may have falsely elevated Potassium levels. ??For accurate Potassium quantif ication in these patients send serum separator tube (gold top) for subsequent determinations. ??Contact the Clinical Chemistry Laboratory if there are any qu estions. Chloride 106 98 - 107 mmol/L [facility] CO2 22 22 - 31 mmol/L [facility] Anion Gap 9 5 - 15 mmol/L [facility] Calcium 8.3 (L) 8.5 - 10.5 mg/dL [facility] Estimated GFR 106 >=60 mL/min/1.73 m?? [facility] Comment: This patient? s estimated glomerular filtration rate (eGFR) is between 106 mL/min/1.73 m2 (patients with less muscl e mass) and 123 mL/min/1.73 m2 (patients with more muscle mass) as dete rmined by the CKD-EPI equation. Assessment of eGFR is not appropriate wh en creatinine concentrations are rapidly changing. For clinical decisions where creatinine clearance will affect therapy, a 24-hour urine creatinine rodrigo nery may be advised. Assignment of CKD stage 1 - 5 for patien ts with an eGFR near the transition point between stages may be based on cli nical assessment of muscle mass and symptoms in addition to eGFR. Specimen Anatomical Collection Method Collection Time Receive d Time (Source) Location / / Volume Laterality Blood 02/21/2022 3:41 AM 2 3:51 EDT AM EDT Resulting Agency Comment Spec In Lab Johan Kessler MD CHEMISTRY ORDERABLES Performing Organization Address City/State/[place] [address] (ABNORMAL) POCT Glucose (02/21/2022 3:11 AM EDT) athologist Signature POC Glucose 318 (H) 65 - 199 [place] [facility] mg/dL [facility] Comment: Supplemental ranges: <140 mg/dL before meals <180 mg/dL all other times of the day Specimen Anatomical Collection Method Collection Time Receive d Time (Source) Location / / Volume Laterality Blood 02/21/2022 3:11 AM 2 3:11 EDT AM EDT Johan Kessler MD POINT OF CARE TEST ORDERABLE S Performing Organization Address City/State/[place] [address] (ABNORMAL) POCT Glucose (02/21/2022 3:09 AM EDT) athologist Signature POC Glucose 319 (H) 65 - 199 [facility]/dL [facility] Comment: Supplemental ranges: <140 mg/dL before meals <180 mg/dL all other times of the day Specimen Anatomical Collection Method Collection Time Receive d Time (Source) Location / / Volume Laterality Blood 02/21/2022 3:09 AM 2 3:09 EDT AM EDT Johan Kessler MD POINT OF CARE TEST ORDERABLE S Performing Organization Address City/State/[place] [address] (ABNORMAL) POCT Glucose (02/20/2022 11:56 PM EDT) athologist Signature POC Glucose 245 (H) 65 - 199 [facility] mg/dL [facility] Comment: Supplemental ranges: <140 mg/dL before meals <180 mg/dL all other times of the day Specimen Anatomical Collection Method Collection Time Receive d Time (Source) Location / / Volume Laterality Blood 02/20/2022 11:56 02/20/2022 PM EDT 11:56 PM EDT Johan Kessler MD POINT OF CARE TEST ORDERABLE S Performing Organization Address City/State/[place] [address] POCT Glucose (02/20/2022 8:22 PM EDT) athologist Signature POC Glucose 191 65 - 199 [facility] mg/dL [facility] Comment: Supplemental ranges: <140 mg/dL before meals <180 mg/dL all other times of the day Specimen Anatomical Collection Method Collection Time Receive d Time (Source) Location / / Volume Laterality Blood 02/20/2022 8:22 PM 2 8:22 EDT PM EDT Johan Kessler MD POINT OF CARE TEST ORDERABLE S Performing Organization Address City/State/[place] [address] (ABNORMAL) POCT Glucose (02/20/2022 6:04 PM EDT) P athologist Signature POC Glucose 240 (H) 65 - 199 [place] mg/dL [facility] Comment: Supplemental ranges: <140 mg/dL before meals <180 mg/dL all other times of the day Specimen Anatomical Collection Method Collection Time Receive d Time (Source) Location / / Volume Laterality Blood 02/20/2022 6:04 PM 2 6:04 EDT PM EDT Johan Kessler MD POINT OF CARE TEST ORDERABLE S Performing Organization Address City/State/[place] [address] (ABNORMAL) POCT Glucose (02/20/2022 4:11 PM EDT) P athologist Signature POC Glucose 270 (H) 65 - 199 [place] mg/dL [facility] Comment: Supplemental ranges: <140 mg/dL before meals <180 mg/dL all other times of the day Specimen Anatomical Collection Method Collection Time Receive d Time (Source) Location / / Volume Laterality Blood 02/20/2022 4:11 PM 2 4:11 EDT PM EDT Johan Kessler MD POINT OF CARE TEST ORDERABLE S Performing Organization Address City/State/[place] [address] POCT Glucose (02/20/2022 12:30 PM EDT) P athologist Signature POC Glucose 130 65 - 199 [place] mg/dL [facility] Comment: Supplemental ranges: <140 mg/dL before meals <180 mg/dL all other times of the day Specimen Anatomical Collection Method Collection Time Receive d Time (Source) Location / / Volume Laterality Blood 02/20/2022 12:30 02/20/2022 PM EDT 12:30 PM EDT Johan Kessler MD POINT OF CARE TEST ORDERABLE S Performing Organization Address City/State/ZIP Code Phon e Number [address] (ABNORMAL) POCT Glucose (02/20/2022 7:07 AM EDT) athologist Signature POC Glucose 200 (H) 65 - 199 [facility] mg/dL [facility] Comment: Supplemental ranges: <140 mg/dL before meals <180 mg/dL all other times of the day Specimen Anatomical Collection Method Collection Time Receive d Time (Source) Location / / Volume Laterality Blood 02/20/2022 7:07 AM 2 7:07 EDT AM EDT Lora Vivas MD POINT OF CARE TEST ORDERABLE S Performing Organization Address City/State/[place] [address] Phosphorus (02/20/2022 6:09 AM EDT) athologist Signature Phosphorus 3.3 2.5 - 4.5 [facility] mg/dL [facility] Specimen Anatomical Collection Method Collection Time Receive d Time (Source) Location / / Volume Laterality Blood 02/20/2022 6:09 AM 2 6:25 EDT AM EDT Resulting Agency Comment Spec In Lab Lora Vivas MD CHEMISTRY ORDERABLES Performing Organization Address City/State/ZIP Code Phon e Number [address] Magnesium (02/20/2022 6:09 AM EDT) athologist Signature Magnesium 0.99 0.69 - 1.07 [facility] mmol/L [facility] Specimen Anatomical Collection Method Collection Time Receive d Time (Source) Location / / Volume Laterality Blood 02/20/2022 6:09 AM 6:25 EDT AM EDT Resulting Agency Comment Spec In Lab Lora Vivas MD CHEMISTRY ORDERABLES Performing Organization Address City/State/[place] [address] (ABNORMAL) Basic Metabolic Panel (non-fasting) (02/20/2022 6:09 AM EDT) P athologist Signature Glucose Lvl 200 (H) 65 - 199 [facility] mg/dL [facility] Comment: Diabetes: >=200 mg/dL plus symp toms BUN 12 8 - 18 mg/dL [facility] Creatinine 0.57 (L) 0.70 - 1.20 mg/dL [facility] Sodium 141 135 - 145 mmol/L [facility] Potassium 3.8 3.5 - 5.0 mmol/L [facility] Comment: Please note: ??Patients with WBC >100,00 0 may have falsely elevated Potassium levels. ??For accurate Potassium quantif ication in these patients send serum separator tube (gold top) for subsequent determinations. ??Contact the Clinical Chemistry Laboratory if there are any qu estions. Chloride 109 (H) 98 - 107 mmol/L [facility] CO2 23 22 - 31 mmol/L [facility] Anion Gap 9 5 - 15 mmol/L [facility] Calcium 8.2 (L) 8.5 - 10.5 mg/dL [facility] Estimated GFR 111 >=60 mL/min/1.73 m?? [facility] Comment: This patient? s estimated glomerular filtration rate (eGFR) is between 111 mL/min/1.73 m2 (patients with less muscl e mass) and 129 mL/min/1.73 m2 (patients with more muscle mass) as dete rmined by the CKD-EPI equation. Assessment of eGFR is not appropriate wh en creatinine concentrations are rapidly changing. For clinical decisions where creatinine clearance will affect therapy, a 24-hour urine creatinine rodrigo gabriel may be advised. Assignment of CKD stage 1 - 5 for patien ts with an eGFR near the transition point between stages may be based on cli nical assessment of muscle mass and symptoms in addition to eGFR. Specimen Anatomical Collection Method Collection Time Receive d Time (Source) Location / / Volume Laterality Blood 02/20/2022 6:09 AM 2 6:25 EDT AM EDT Resulting Agency Comment Spec In Lab Lora Vivas MD CHEMISTRY ORDERABLES Performing Organization Address City/State/ZIP Code Phon e Number [address] POCT Glucose (02/19/2022 11:34 PM EDT) athologist Signature POC Glucose 159 65 - 199 [place] mg/dL [facility] Comment: Supplemental ranges: <140 mg/dL before meals <180 mg/dL all other times of the day Specimen Anatomical Collection Method Collection Time Receive d Time (Source) Location / / Volume Laterality Blood 02/19/2022 11:34 02/19/2022 PM EDT 11:34 PM EDT Lora Vivas MD POINT OF CARE TEST ORDERABLE S Performing Organization Address City/State/ZIP Code Phon e Number [address] POCT Glucose (02/19/2022 5:14 PM EDT) athologist Signature POC Glucose 82 65 - 199 [place] mg/dL [facility] Comment: Supplemental ranges: <140 mg/dL before meals <180 mg/dL all other times of the day Specimen Anatomical Collection Method Collection Time Receive d Time (Source) Location / / Volume Laterality Blood 02/19/2022 5:14 PM 2 5:14 EDT PM EDT Lora Viavs MD POINT OF CARE TEST ORDERABLE S Performing Organization Address City/State/ZIP Code Phon e Number [address] POCT Glucose (02/19/2022 10:53 AM EDT) athologist Signature POC Glucose 94 65 - 199 [place] mg/dL [facility] Comment: Supplemental ranges: <140 mg/dL before meals <180 mg/dL all other times of the day Specimen Anatomical Collection Method Collection Time Receive d Time (Source) Location / / Volume Laterality Blood 02/19/2022 10:53 02/19/2022 AM EDT 10:53 AM EDT Lora Vivas MD POINT OF CARE TEST ORDERABLE S Performing Organization Address City/State/[place] [address] COVID-19 PCR (02/19/2022 7:06 AM EDT) [facility] Method Time Signature SARS-CoV-2 Not Detected Not Detected [facility] RNA PCR [facility] Comment: This result should be interpreted in com bination with the clinical observations, patient history and epidem iological information. For testing of asymptomatic individuals, assay performa nce characteristics and clinical utility have not been evaluated. Testing for SARS-CoV-2 (Severe acute respiratory syndrome coronavirus 2, form erly known as 2019 novel coronavirus or 2018-nCoV) to aid in the diagnosis of CO VID-19 is performed using the Simplexa COVID-19 Direct Assay by [employer] as authorized by the FDA issued Emergency Use Authorization (EUA). This assay is intended for In-vitro Diagnostic (IVD) use with nasopharyngeal swabs collected from individuals meeting the CDC criteria for testing. Th e assay is performed based on the instructions for use and additional guid ance provided by the FDA. Testing is performed in the Microbiology Laboratory within the Department of Pathology and Laboratory Medicine at [facility], certified under the Clinical Laboratory Improvement Amendmen ts of 1988 (CLIA), 42 U.S.C. section 263a, to perform high complexity tests. Assay performance has been verified according to clinical laboratory regulat ory requirements. Test results are provided above. A resul t of Not Detected indicates that the viral RNA target is not present but does not preclude SARS-CoV-2 infection. False negative results may occur if a sp ecimen is improperly collected, transported or handled; if amplification inhibitors are present; or if inadequate numbers of viral particles ar e present in the specimen. A result of Detected suggests a current or recent infection and the patient is presumed to be infected. Positive and negative pr edictive values for this test are highly dependent on disease prevalence. A result of Invalid indicates the inability to conclusively determine the presence or absence of SARS-CoV-2 RNA in the sample which can be due to a vari ety of factors. Recollection is recommended in the case of an invalid re sult. CDC COVID-19 criteria for testing on hum an specimens and clinical management guidance information are available at [facility] CDC Coronavirus Disease 2019 (COVID-19) webpage under Information fo r Healthcare Professionals (https://www.cdc.gov/coronavirus/2019-nc ov/hcp/index.html). Additional information about this and ot her EUA tests can be found in provider and patient fact sheets at the following FDA website: https://www.fda.gov/medical-devices/joradgcrtcc-hywjqse-4276-vewkz-35-mkectyqbq- rgl-jqfgwdgpjbvyty-gzrqoqk-devices/qzwar-gotyyymuqqs-qrwr SARS-CoV-2 Source [employer] Swab [facility] Specimen (Source) Anatomical Collection Method Collection Time Re ceived Time Location / / Volume Laterality Nasopharyngeal Swab 02/19/2022 7:06 02/19 AM EDT 8:17 AM EDT Comment: Symptoms->Surveillance Resulting Agency Comment Spec In Lab Lora Vivas MD MICROBIOLOGY - GENERAL ORDER ERIN Performing Organization Address City/[facility]/ZIP Code Phon e Number [address] POCT Glucose (02/19/2022 6:21 AM EDT) P athologist Signature POC Glucose 77 65 - 199 [facility] mg/dL [facility] Comment: Supplemental ranges: <140 mg/dL before meals <180 mg/dL all other times of the day Specimen Anatomical Collection Method Collection Time Receive d Time (Source) Location / / Volume Laterality Blood 02/19/2022 6:21 AM 6:21 EDT AM EDT Billie Rubio MD POINT OF CARE TEST ORDERABLE S Performing Organization Address City/State/[place] [address] Anaerobic Culture (02/19/2022 6:00 AM EDT) [facility] CohesiveFT Method Time Signature Anaerobic No anaerobic HERMELINDA JOSE DAVID Culture organisms [facility] LABORATORY Specimen Anatomical Collection Method Collection Time Receive d Time (Source) Location / / Volume Laterality Leg 02/19/2022 6:00 AM 2 9:30 EDT AM EDT Comment: Left leg anterior lateral nicky rtment culture Resulting Agency Comment Spec In Lab Lora Vivas MD MICROBIOLOGY - GENERAL ORDER ERIN Performing Organization Address [facility] Phon e Number [place] [id number] (ABNORMAL) Tissue culture (02/19/2022 6:00 AM EDT) Component Value Ref Test Analysis Performed At [facility] Range Method Time Signature Tissue Clostridium perfringens isolated from broth culture. HERMELINDA Culture No growth on original plates. [facility] Gram Stain No Neutrophils seen. HERMELINDA No microorganisms seen. [facility] OCK () [facility] Organism Clostridium HERMELINDA perfringens (A) [facility] Specimen Anatomical Collection Method Collection Time Receive d Time (Source) Location / / Volume Laterality Leg 02/19/2022 6:00 AM 2 9:30 EDT AM EDT Comment: Left leg anterior lateral nicky rtment culture Resulting Agency Comment Spec In Lab Organism Antibiotic Method Susceptibility Clostridium perfringens Metronidazole MINIMUM INHIBITORY 4: Se nsitive CONCENTRATION Clostridium perfringens Penicillin MINIMUM INHIBITORY 0.25: Sensitive CONCENTRATION Lora Vivas MD MICROBIOLOGY - GENERAL ORDER ERIN Performing Organization Address City/[facility]/[place] [address] Anaerobic Culture (02/19/2022 6:00 AM EDT) [facility] Method Time Signature Anaerobic No anaerobic [place]EL[place] JOSE DAVID Culture organisms [facility]ORATORY Specimen Anatomical Collection Method Collection Time Receive d Time (Source) Location / / Volume Laterality Leg 02/19/2022 6:00 AM 2 9:29 EDT AM EDT Comment: Left leg medial calf compartmen t culture Resulting Agency Comment Spec In Lab Lora Vivas MD MICROBIOLOGY - GENERAL ORDER ERIN Performing Organization Address City/[facility]/[place] [address] Tissue culture (02/19/2022 6:00 AM EDT) Component Value Ref Test Analysis Performed At [facility] Method Time Signature Tissue No growth HERMELINDA Culture [facility] Gram Stain Few Neutrophils seen HERMELINDA No microorganisms seen. [facility] Specimen Anatomical Collection Method Collection Time Receive d Time (Source) Location / / Volume Laterality Leg 02/19/2022 6:00 AM 2 9:29 EDT AM EDT Comment: Left leg medial calf compartmen t culture Resulting Agency Comment Spec In Lab Loar Vivas MD MICROBIOLOGY - GENERAL ORDER ERIN Performing Organization Address City/[facility]/[place] [address] Specimen to Pathology (02/19/2022 5:56 AM EDT) Specimen Anatomical Collection Method Collection Time Receive d Time (Source) Location / / Volume Laterality AP Specimen 02/19/2022 5:56 AM 2 5:56 EDT AM EDT Narrative [facility] - 02/19/2022 5:56 AM EDT Specimen requisition ordered. ??Separate Pathology report to follow Lora Vivas MD PATHOLOGY/CYTOLOGY ORDERABLE S Performing Organization Address City/[facility]/[place] [address] Surgical Pathology Report (02/19/2022 5:49 AM EDT) Component Value Ref Test Analysis Performed At [facility] Method Time Signature Surgical [id number] ? Location: 3T; 0318; A [facility] Report The signing pathologist has (i) examined the relevant preparation(s) for the [facility] specimen(s) and (ii) rendered or confirmed the diagnosis(es) . HOSPITAL LABORATORY . ?Surgic al Pathology DIAGNOSIS A - Left leg, medial calf fascia; biopsy: ?Viable collagenous tissue with no neutrophilic inflamm ation or ?necrosis; mild perivascular lymphocytic inflammation o nly. B - Left leg, medial calf muscle; biopsy: ?Viable adipose tissue with no neutrophilic inflammatio n or necrosis; ?focal, mild perivascular lymphocytic inflammation only . ?No skeletal muscle tissue present. C - Left leg, anterior lateral compartment fascia; biopsy: ?Viable collagenous tissue with no neutrophilic inflamm ation or ?necrosis; mild perivascular lymphocytic inflammation o nly. Electronically signed by: ?Nitish OROPEZA, Wilian Menezes Verified: ??02/24/2022 15:59 ??Pathologist Performed at: ??-[facility] Dept. of Pathology, [place], [place] SPECIMEN(S) SUBMITTED A - Left leg, medial calf fascia B - Left leg, medial calf muscle C - Left leg, anterior lateral compartment fascia CLINICAL INFORMATION Myositis, possible NSTI. SPECIMEN PROCESSING A - Labeled/Fixative: ?? Left leg medial calf fascia , fresh . Quantity/Size: Single, 0.8 x 0.4 x 0.2 cm. Tissue Description: Soft, pink-white tissue. Sections/Processing: Entirely submitted in 1 cassette labele d A1. B - Labeled/Fixative: ?? Left leg medial calf muscle , fresh . Quantity/Size: Single, 0.9 x 0.8 x 0.4 cm. Tissue Description: Portion of red-brown muscle with c autery on one surface. Sections/Processing: Entirely submitted in 1 cassette labele d B1. C - Labeled/Fixative: ?? Lef t leg anterior lateral compartment fascia ??, fresh. Quantity/Size: Single, 1.6 x 0.7 x 0.2 cm. Tissue Description: Richey-pink fibromembranous tissue. Sections/Processing: Entirely submitted in 1 cassette labele d C1. ??pps Specimen (Source) Anatomical Collection Method Collection Time Re ceived Time Location / / Volume Laterality 02/19/2022 5:49 AM EDT Lora Vivas MD PATHOLOGY/CYTOLOGY ORDERABLE S Performing Organization Address City/State/[place] [address] Specimen to Pathology (02/19/2022 5:49 AM EDT) Specimen Anatomical Collection Method Collection Time Receive d Time (Source) Location / / Volume Laterality AP Specimen 02/19/2022 5:49 AM 2 5:49 EDT AM EDT Narrative [facility] OR - 02/19/2022 5:49 AM EDT Specimen requisition ordered. ??Separate Pathology report to follow Lora Vivas MD PATHOLOGY/CYTOLOGY ORDERABLE S Performing Organization Address City/State/ZIP Code Phon e Number [address] Specimen to Pathology (02/19/2022 5:49 AM EDT) Specimen Anatomical Collection Method Collection Time Receive d Time (Source) Location / / Volume Laterality AP Specimen 02/19/2022 5:49 AM 2 5:49 EDT AM EDT Narrative [facility] - 02/19/2022 5:49 AM EDT Specimen requisition ordered. ??Separate Pathology report to follow Lora Vivas MD PATHOLOGY/CYTOLOGY ORDERABLE S Performing Organization Address City/[facility]/[place] [address] L-Lactate2 Whole Blood (02/19/2022 5:09 AM EDT) P athologist Signature Lactate WB 1.6 0.5 - 2.2 [facility] mmol/L [facility] Specimen Anatomical Collection Method Collection Time Receive d Time (Source) Location / / Volume Laterality Blood 02/19/2022 5:09 AM 2 5:09 EDT AM EDT Billie Rubio MD CHEMISTRY ORDERABLES Performing Organization Address City/State/ZIP Code Phon e Number [address] Scan, Peripheral Blood (02/19/2022 3:45 AM EDT) Patholo gist Method Time Signature Plat Estimate Normal [facility] RBC Morphology Normal [facility] Toxic Present [facility]ORATORY Specimen Anatomical Collection Method Collection Time Receive d Time (Source) Location / / Volume Laterality Blood 02/19/2022 3:45 AM 2 4:06 EDT AM EDT Resulting Agency Comment Spec In Lab Chica Hinson MD HEMATOLOGY ORDERABLES Performing Organization Address City/[facility]/[place] [address] CK (02/19/2022 3:45 AM EDT) P athologist Signature CK, Total 75 0 - 160 [facility] unit/L [facility] Specimen Anatomical Collection Method Collection Time Receive d Time (Source) Location / / Volume Laterality Blood Venous Draw / 02/19/2022 3:45 AM 02/20/20 22 4:10 Unknown EDT AM EDT Resulting Agency Comment Spec In Lab Chica Hinson MD CHEMISTRY ORDERABLES Performing Organization Address City/[facility]/[place] [address] (ABNORMAL) Differential, Automated (02/19/2022 3:45 AM EDT) Patholo gist Method Time Signature Neutrophils % 46.6 % [facility] Neutr Abs (ANC) 4.91 1.70 - [facility] 6.10 [facility] x10(3)/[facility] LABORATORY Lymphocytes % 39.0 % [facility] Lymphocytes Abs 4.1 (H) 0.9 - 3.2 [facility] x10(3)/[facility] LABORATORY Monocytes % 10.3 % [facility] Monocyte Abs 1.1 (H) 0.3 - 0.9 [facility] x10(3)/[facility] LABORATORY Eosinophils % 3.4 % [facility] Eosinophils Abs 0.4 0.0 - 0.4 [facility] x10(3)/[facility] LABORATORY Basophils % 0.5 % [facility] Basophils Abs 0.0 0.0 - 0.1 [facility] x10(3)/[facility] LABORATORY Immature Gran % 0.20 % [...] Anaya Gran Abs 0.02 0.00 - 0.04 x10(3)/[facility] MAR Y [facility]ORY Specimen Anatomical Collection Method Collection Time Receive d Time (Source) Location / / Volume Laterality Blood 02/19/2022 3:45 AM 4:06 EDT AM EDT Resulting Agency Comment Spec In Lab Chica Hinson MD HEMATOLOGY ORDERABLES Performing Organization Address City/State/ZIP Code Phon e Number [place] [id number] (ABNORMAL) Hemogram (02/19/2022 3:45 AM EDT) Analysis Performed At Patho logist Time Signature WBC 10.5 (H) 4.0 - 9.5 [facility] x10(3)/[facility] LABORATORY RBC 4.83 4.00 - [facility] 5.21 [facility] x10(6)/[facility] LABORATORY Hemoglobin 14.2 11.7 - [facility] 15.5 g/dL [facility] Hematocrit 42.7 35.7 - [facility] 45.8 % [facility] MCV 88.4 82.6 - [facility] 94.4 [facility] LABORATORY MCH 29.4 27.1 - [facility] JOSE DAVID 32.0 pg [facility] MCHC 33.3 31.7 - [facility] 35.0 g/dL [facility] Platelets 311 145 - 357 [facility] x10(3)/[facility] LABORATORY RDWSD 46.9 (H) 37.0 - [facility] 46.0 [facility] RDWCV 14.6 (H) 11.5 - [facility] 14.1 % [facility] MPV 10.2 7.6 - 12.9 [facility] LABORATORY nRBC % Auto 0.0 % [facility] nRBC Abs Auto 0.000 0.000 - [facility] 0.000 [facility] x10(3)/[facility] LABORATORY Specimen Anatomical Collection Method Collection Time Receive d Time (Source) Location / / Volume Laterality Blood 02/19/2022 3:45 AM 2 4:06 EDT AM EDT Resulting Agency Comment Spec In Lab Chica Hinson MD HEMATOLOGY ORDERABLES Performing Organization Address City/[facility]/ZIP Code Phon e Number [address] APTT (02/19/2022 3:45 AM EDT) P athologist Signature PTT 31 25 - 37 sec [facility] Comment: The PTT is NOT appropriate for heparin m onitoring. Use the Anti-Xa level for heparin monitoring (HEP UFH) or LMWH mon itoring (HEP LMW). A PTT less than 37 seconds generally indicates adequate hem ostasis. Specimen Anatomical Collection Method Collection Time Receive d Time (Source) Location / / Volume Laterality Blood 02/19/2022 3:45 AM 2 4:06 EDT AM EDT Resulting Agency Comment Spec In Lab Billie Rubio MD HEMATOLOGY ORDERABLES Performing Organization Address City/[facility]/[place] [address] Prothrombin Time (02/19/2022 3:45 AM EDT) P athologist Signature PT 11.5 9.4 - 12.5 [facility] LABORATORY INR 1.0 [facility] Comment: An INR <2.0 indicates adequate procoagul ant activity for hemostasis in most patients without underlying bleeding dis orders, though the INR may not adequately reflect hemostatic capacity i n patients with liver disease and synthetic impairment. The recommended ta rget INR range for therapeutic anticoagulation is 2.0 ? 3.0 for most applications, though lower and higher ranges may be appropriate depending on c linical circumstances. Specimen Anatomical Collection Method Collection Time Receive d Time (Source) Location / / Volume Laterality Blood 02/19/2022 3:45 AM 2 4:06 EDT AM EDT Resulting Agency Comment Spec In Lab Billie Rubio MD HEMATOLOGY ORDERABLES Performing Organization Address City/[facility]/[place] [address] (ABNORMAL) CRP, acute inflammation (02/19/2022 3:45 AM EDT) athologist Signature CRP 5.6 (H) <=4.9 mg/L [facility] Specimen Anatomical Collection Method Collection Time Receive d Time (Source) Location / / Volume Laterality Blood 02/19/2022 3:45 AM 2 4:06 EDT AM EDT Resulting Agency Comment Spec In Lab Billie Rubio MD CHEMISTRY ORDERABLES Performing Organization Address City/[facility]/[place] [address] Sedimentation rate (02/19/2022 3:45 AM EDT) athologist Signature Sed Rate 26 2 - 37 [facility] mm/hr [facility] Comment: Effective September 11, 2019 new capillar y photometric technology has resulted in a change in reference ranges. It is r ecommended that each ESR result be reviewed with its own age appropriate re ference range. Specimen Anatomical Collection Method Collection Time Receive d Time (Source) Location / / Volume Laterality Blood 02/19/2022 3:45 AM 2 4:06 EDT AM EDT Resulting Agency Comment Spec In Lab Billie Rubio MD HEMATOLOGY ORDERABLES Performing Organization Address City/[facility]/[place] [address] (ABNORMAL) Basic Metabolic Panel (non-fasting) (02/19/2022 3:45 AM EDT) athologist Signature Glucose Lvl 83 65 - 199 [facility] mg/dL [facility] Comment: Diabetes: >=200 mg/dL plus symp toms BUN 25 (H) 8 - 18 mg/dL [facility] Creatinine 0.78 0.70 - 1.20 mg/dL [facility] Sodium 142 135 - 145 mmol/L [facility] Potassium 3.1 (L) 3.5 - 5.0 mmol/L [facility] Comment: result rechecked-KS Please note: [...] Anion Gap 12 5 - 15 mmol/L [facility] Calcium 9.0 8.5 - 10.5 mg/dL [facility] Estimated GFR 91 >=60 mL/min/1.73 m?? [facility] Comment: This patient? s estimated glomerular filtration rate (eGFR) is between 91 mL/min/1.73 m2 (patients with less muscl e mass) and 106 mL/min/1.73 m2 (patients with more muscle mass) as dete rmined by the CKD-EPI equation. Assessment of eGFR is not appropriate wh en creatinine concentrations are rapidly changing. For clinical decisions where creatinine clearance will affect therapy, a 24-hour urine creatinine rodrigo nery may be advised. Assignment of CKD stage 1 - 5 for patien ts with an eGFR near the transition point between stages may be based on cli nical assessment of muscle mass and symptoms in addition to eGFR. Specimen Anatomical Collection Method Collection Time Receive d Time (Source) Location / / Volume Laterality Blood 02/19/2022 3:45 AM 2 4:06 EDT AM EDT Resulting Agency Comment Spec In Lab Billie Rubio MD CHEMISTRY ORDERABLES Performing Organization Address City/State/[place] [address] Film Library- Storage Only CT Lower Extremity (02/18/2022 12:00 AM EDT) Specimen (Source) Anatomical Location Collection Method / Collectio n Time Received Time / Laterality Volume Narrative Dicom, Auditing User - 02/19/2022 3:26 A M EDT This exam is auto-finalizing. It's purpo se is for storage only. Lora Parekh MD IMG FILM LIBRARY ORDERABLES documented in this encounter Visit Diagnoses Diagnosis Left leg pain Pain in limb Hx of fasciotomy Personal history of surgery to other org ans Myositis of left lower leg, unspecified myositis type Myositis Mylagia and myositis, unspecified documented in this encounter Admitting Diagnoses Diagnosis Myositis Mylagia and myositis, unspecified documented in this encounter Administered Medications Inactive Administered Medications - up to 3 most recent administrations Medication Order MAR Action Action Date Dose Rate Site acetaminophen (Tylenol) tablet Given 02/24/2022 6:17 AM EDT 1,00 0 mg 1,000 mg 1,000 mg, Oral, EVERY 6 HOURS SCHEDULED, First dose on 02/19/22 at 1200, Until Discontinued, Should be used concomitantly if other analgesics are ordered. Maximum dose of acetaminophen is 4000 mg from all sources in 24 hours., Routine Given 02/24/2022 12:05 AM EDT 1,000 mg Given 02/23/2022 5:38 PM EDT 1,000 mg albuteroL (Proventil) nebulizer solution 2.5 Given 5:21 PM EDT 2.5 mg mg 2.5 mg, Nebulization, EVERY 4 HOURS PRN, Starting on 02/19/22 at 0921, Until Toya 02/24/22 at 1434, Wheezing, Shortness of Breath, Routine aspirin EC tablet 81 mg Given 02/24/2022 9:22 AM EDT 81 mg 81 mg, Oral, DAILY, First dose on 02/19/22 at 0945, Until Discontinued, Routine Given 02/23/2022 10:11 AM EDT 81 mg Given 02/22/2022 9:58 AM EDT 81 mg budesonide-formoteroL (Symbicort) Given 02/24/2022 9:21 AM EDT 1 Inhalation 160-4.5 mcg/actuation inhaler 1 Inhalation 1 Inhalation, Inhalation, 2 TIMES DAILY, First dose on 02/19/22 at 0945, Until Discontinued Given 02/23/2022 10:09 PM EDT 1 Inhalation Given 02/23/2022 10:11 AM EDT 1 Inhalation ceFEPime (Maxipime) 1g vial attach to New Bag 02/19/2022 5:11 PM EDT 1 g 200 mL/hr sodium chloride 0.9% 100 mL Mini-Bag Plus 1 g, Intravenous, EVERY 8 HOURS, 1 dose, First dose (after last modification) on Mon02/19/22 at 1315, Administer over 30 Minutes, Indication 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): Skin/Skin Structure ceFEPime (Maxipime) 1g vial attach to New Bag 02/22/2022 6:04 AM EDT 1 g 200 mL/hr sodium chloride 0.9% 100 mL Mini-Bag Plus 1 g, Intravenous, EVERY 8 HOURS, First dose (after last reorder) on Mon02/20/22 at 0700, Until Discontinued, Administer over 30 Minutes, Indication 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): Skin/Skin Structure New Bag 02/21/2022 10:24 PM EDT 1 g 200 mL/hr New Bag 02/21/2022 3:54 PM EDT 1 g 200 mL/hr ceFEPime (Maxipime) 1g vial attach to New Bag 02/22/2022 4:05 PM EDT 1 g 200 mL/hr sodium chloride 0.9% 100 mL Mini-Bag Plus 1 g, Intravenous, EVERY 8 HOURS, First dose on Mon02/22/22 at 1530, Until Discontinued, Administer over 30 Minutes, Indication 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): Skin/Skin Structure cephALEXin (Keflex) capsule 500 mg Given 02/24/2022 9:22 AM EDT 500 mg 500 mg, Oral, 4 TIMES DAILY, 28 doses, First dose on Mon02/22/22 at 1830, Last dose on Mon03/01/22 at 1300, Routine, Indication 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): Skin/Skin Structure Given 02/23/2022 9:56 PM EDT 500 mg Given 02/23/2022 5:00 PM EDT 500 mg citalopram (CeleXA) tablet 40 mg Given 02/24/2022 9:22 AM EDT 40 mg 40 mg, Oral, DAILY, First dose on Mon02/19/22 at 0945, Until Discontinued, Routine Given 02/23/2022 10:11 AM EDT 40 mg Given 02/22/2022 9:57 AM EDT 40 mg clindamycin (Cleocin) 300 mg in New Bag 02/19/2022 3:48 PM EDT 300 mg 300 mL/hr dextrose 5% 50 mL infusion 300 mg, Intravenous, EVERY 8 HOURS, 1 dose, First dose (after last modification) on Mon02/19/22 at 1315, Administer over 10 Minutes, Indication 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): Skin/Skin Structure clindamycin (Cleocin) 600 mg in New Bag 02/22/2022 4:35 PM EDT 600 mg 150 mL/hr dextrose 5% 50 mL infusion 600 mg, Intravenous, EVERY 8 HOURS, First dose on Mon02/22/22 at 1530, Until Discontinued, Administer over 20 Minutes, Indication 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): Skin/Skin Structure clopidogreL (Plavix) tablet 75 mg Given 02/24/2022 9:23 AM EDT 75 mg 75 mg, Oral, DAILY, First dose on Mon02/19/22 at 0945, Until Discontinued, Routine Given 02/23/2022 10:09 AM EDT 75 mg Given 02/22/2022 9:58 AM EDT 75 mg cyclobenzaprine (Flexeril) tablet 10 mg Given 02/24/2022 5:20 AM EDT 10 mg 10 mg, Oral, 3 TIMES DAILY PRN, Starting on Mon02/19/22 at 0717, Until Toya 02/24/22 at 1434, Muscle spasms, Routine Given 02/24/2022 12:05 AM EDT 10 mg Given 02/23/2022 2:22 PM EDT 10 mg dextromethorphan (Robitussin) capsule 15 mg Given 02/24/2022 6:17 AM EDT 15 mg 15 mg, Oral, EVERY 6 HOURS SCHEDULED, First dose on Mon02/22/22 at 1200, Until Discontinued, Routine Given 02/24/2022 12:08 AM EDT 15 mg Given 02/23/2022 5:38 PM EDT 15 mg dextrose 10% infusion 250 mL, at 1,000 mL/hr, Intravenous, KONSTANTIN RY 30 MIN PRN, Starting on Mon02/23/22 at 1118, Until Mon02/24/22 at 1434, For BG 50-70 mg/dL: Oral treatment preferred: [...] for the duration of the active insulin. docusate sodium (Colace) capsule 100 mg Given 02/24/2022 9:22 AM EDT 100 mg 100 mg, Oral, 2 TIMES DAILY, First dose on 02/19/22 at 0945, Until Discontinued, Routine Given 02/23/2022 9:56 PM EDT 100 mg Given 02/23/2022 10:11 AM EDT 100 mg enoxaparin (Lovenox) (40 mg/0.4 Given 02/23/2022 9:55 PM EDT 40 mg Abdominal Tissue mL) subcutaneous injection 40 mg 40 mg, Subcutaneous, NIGHTLY, First dose on 02/20/22 at 2100, Until Discontinued, Routine Given 02/22/2022 7:48 PM EDT 40 mg Given 02/21/2022 8:21 PM EDT 40 mg fentaNYL (pf) (50 mcg/mL) multi-dose Given 02/19/2022 7:02 AM ED T 25 mcg injection 25 mcg 25 mcg, Intravenous, EVERY 5 MIN PRN, Starting on 02/19/22 at 0604, Until 02/19/22 at 0921, Pain, Moderate to severe pain (6-10 out of 10), Hold for respiratory rate less than 10 per minute. Maximum dose 200 mcg over one hour, including OR administration. If ordered with HYDROmorphone or morphine, give HYDROmorphone or morphine first and use fentaNYL for breakthrough pain., PACU Recovery, Routine Given 02/19/2022 6:47 AM EDT 25 mcg Given 02/19/2022 6:29 AM EDT 25 mcg furosemide (Lasix) tablet 20 mg Given 02/24/2022 9:23 AM EDT 20 mg 20 mg, Oral, 2 TIMES DAILY, First dose on 02/19/22 at 0945, Until Discontinued, Routine Given 02/23/2022 9:57 PM EDT 20 mg Given 02/23/2022 10:11 AM EDT 20 mg gabapentin (Neurontin) capsule 1,200 mg Given 02/23/2022 9:56 PM EDT 1,200 mg 1,200 mg, Oral, NIGHTLY, First dose on 02/19/22 at 2100, Until Discontinued, Routine Given 02/22/2022 7:48 PM EDT 1,200 mg Given 02/21/2022 8:16 PM EDT 1,200 mg gabapentin (Neurontin) capsule 600 mg Given 02/24/2022 9:23 AM EDT 600 mg 600 mg, Oral, 2 TIMES DAILY, First dose on 02/19/22 at 0945, Until Discontinued, Routine Given 02/23/2022 3:42 PM EDT 600 mg Given 02/23/2022 10:11 AM EDT 600 mg glucagon (Glucagen) (1 mg/mL) injection solution 1 mg 1 mg, Intramuscular, EVERY 30 MIN PRN, S tarting on 02/23/22 at 1118, Until Toya 02/24/22 at 1434, Low blood sugar, For BG 50-70 mg/dL: [...] Buccal, EVERY 30 MIN PRN, Starting on Mon02/23/22 at 1118, Until Toya 02/24/22 at 1434, Low blood sug ar, For BG 50-70 [...] Routine heparin (porcine) (5,000 units/1 mL) Given 02/20/2022 3:16 AM ED T 5,000 Units subcutaneous injection 5,000 Units 5,000 Units, Subcutaneous, EVERY 8 HOURS SCHEDULED, First dose on 02/19/22 at 0945, Until Discontinued, Routine Given 02/19/2022 8:53 PM EDT 5,000 Units Given 02/19/2022 12:14 PM EDT 5,000 Units HYDROmorphone (Dilaudid) (0.5 mg/0.5 mL) Given 02/21/2022 7:02 P M EDT 0.3 mg injection syringe 0.3 mg 0.3 mg, Intravenous, ONCE, 1 dose, On Mon02/21/22 at 1930, Routine HYDROmorphone (Dilaudid) (0.5 mg/0.5 mL) Given 02/22/2022 8:01 A M EDT 0.3 mg injection syringe 0.3 mg 0.3 mg, Intravenous, ONCE, 1 dose, On Mon02/22/22 at 0830, Routine HYDROmorphone (Dilaudid) (0.5 mg/0.5 mL) Given 02/22/2022 4:08 A M EDT 0.4 mg injection syringe 0.4 mg 0.4 mg, Intravenous, EVERY 4 HOURS PRN, Starting on Mon02/20/22 at 0809, Until Mon02/22/22 at 0714, Pain, for pain not controlled by scheduled and PO prn medications, May give an additional 0.2 mg in 30 minutes once if pain not relieved., Routine Given 02/22/2022 12:10 AM EDT 0.4 mg Given 02/21/2022 8:15 PM EDT 0.4 mg HYDROmorphone (Dilaudid) (0.5 mg/0.5 mL) Given 02/21/2022 5:38 P M EDT 0.4 mg injection syringe 0.4 mg 0.4 mg, Intravenous, ONCE, 1 dose, On Mon02/21/22 at 1800, Routine HYDROmorphone (Dilaudid) (0.5 mg/0.5 mL) Given 02/20/2022 6:59 A M EDT 0.6 mg injection syringe 0.6 mg 0.6 mg, Intravenous, EVERY 4 HOURS PRN, Starting on Mon02/20/22 at 0641, Until Mon02/20/22 at 0810, Pain, severe pain (7-10), May give an additional 0.2 mg in 30 minutes once if pain not relieved., Routine HYDROmorphone (Dilaudid) (0.5 mg/0.5 mL) Given 02/19/2022 4:36 A M EDT 1 mg injection syringe 1 mg 1 mg, Intravenous, ONCE, 1 dose, On 02/19/22 at 0433, STAT HYDROmorphone (Dilaudid) (2 mg/mL) multi-dose Given 8:17 AM EDT 0.2 mg injection solution 0.2 mg 0.2 mg, Intravenous, EVERY 10 MIN PRN, Starting on 02/19/22 at 0604, Until 02/19/22 at 0921, Pain, For Mild to Moderate Pain (1-5 out of 10), Hold for respiratory rate less than 10 per minute. Maximum dose 3 mg over one hour including administrations in the OR. If multiple pain medications are ordered, start with HYDROmorphone or morphine and use fentaNYL for breakthrough pain, PACU Recovery, Routine HYDROmorphone (Dilaudid) (2 mg/mL) Given 02/21/2022 12:14 PM EDT 0.4 mg multi-dose injection solution 0.4 mg 0.4 mg, Intravenous, EVERY 10 MIN PRN, Starting on 02/21/22 at 1034, Until 02/21/22 at 1301, Pain, For Moderate to Severe Pain (6-10 out of 10), Hold for respiratory rate less than 10 per minute. Maximum dose 3 mg over one hour including administrations in the OR. If multiple pain medications are ordered, start with HYDROmorphone or morphine and use fentaNYL for breakthrough pain, PACU Recovery, Routine Given 02/21/2022 12:04 PM EDT 0.4 mg HYDROmorphone (Dilaudid) tablet 2 mg Given 02/23/2022 10:21 AM EDT 2 mg 2 mg, Oral, ONCE, 1 dose, On Mon02/23/22 at 1100, Routine ibuprofen (Advil) tablet 600 mg Given 02/24/2022 10:45 AM EDT 600 mg 600 mg, Oral, EVERY 6 HOURS, First dose on Mon02/23/22 at 1030, Until Discontinued, Administer orally with milk or food to minimize GI irritation. Maximum dose of 3,200 mg from all sources in 24 hours, Routine Given 02/24/2022 4:24 AM EDT 600 mg Given 02/23/2022 9:56 PM EDT 600 mg insulin glargine-ygfn (Semglee) (100 Given 02/23/2022 10:25 AM E DT 15 Units unit/mL) subcutaneous injection vial 15 Units 15 Units, Subcutaneous, DAILY, First dose (after last modification) on Mon02/22/22 at 0900, Until Discontinued, Give even if NPO, Routine Given 02/22/2022 9:58 AM EDT 15 Units insulin glargine-ygfn (Semglee) (100 Given 02/24/2022 9:21 AM ED T 18 Units unit/mL) subcutaneous injection vial 18 Units 18 Units, Subcutaneous, DAILY, First dose on Mon02/24/22 at 0900, Until Discontinued, Routine insulin lispro (HumaLOG;Admelog) (100 Given 02/24/2022 9:21 AM E DT 10 Units unit/mL) subcutaneous injection vial 0-14 Units 0-14 Units, Subcutaneous, 3 TIMES DAILY WITH MEALS, First dose (after last modification) on Mon02/23/22 at 1215, Until Discontinued, [employer] Give 1 unit for every 6 grams carbohydrate. Hold if not eating or if BG less than 70 mg/dL., Routine Given 02/23/2022 6:12 PM EDT 13 Units Given 02/23/2022 3:36 PM EDT 9 Units insulin lispro (HumaLOG;Admelog) (100 Given 02/22/2022 9:59 AM E DT 2 Units unit/mL) subcutaneous injection vial 0-6 Units 0-6 Units, Subcutaneous, EVERY 4 HOURS SCHEDULED, First dose (after last modification) on Mon02/21/22 at 1600, Until Discontinued, CORRECTION BOLUS [1-6 Units] Sensitive Sliding Scale (BG in mg/dL): Correction factor 20 (1 unit of insulin is expected to drop the glucose 20 mg/dL) BG 140 - 160 Give 1 units BG 161 - 180 Give 2 units BG 181 - 200 Give 3 units BG 201 - 220 Give 4 units BG 221 - 240 Give 5 units If BG greater than 240, give 6 units and recheck BG in 2 hours. If recheck BG remains GREATER THAN 240, GIVE 6 units (no more than two times) & call for new insulin orders. If recheck BG is less than 240 after two hours, give no insulin and resume prior schedule. DO NOT hold if NPO, unless specifically directed to do so by written order. Per Blood Glucose Monitoring Policy, re-check a BG of > 240 mg/dL in 2 hours., Routine Given 02/22/2022 3:39 AM EDT 5 Units Given 02/21/2022 11:36 PM EDT 2 Units insulin lispro (HumaLOG;Admelog) (100 Given 02/23/2022 7:39 AM E DT 1 Units unit/mL) subcutaneous injection vial 0-6 Units 0-6 Units, Subcutaneous, EVERY 4 HOURS SCHEDULED, First dose (after last modification) on Mon02/22/22 at 1245, Until Discontinued, CORRECTION BOLUS [1-4 Units] Sensitive Sliding Scale (BG in mg/dL): Correction factor 40 (1 unit of insulin is expected to drop the glucose 40 mg/dL) BG 160 -?200?Give 1 unit? BG?201 - 240?Give 2 units? BG 241 -?280?Give 3 units? BG greater than 280, give 4 units and recheck BG in 2 hours. If recheck BG remains GREATER THAN 280, GIVE 4 units (no more than two times) & call for new insulin orders. If recheck BG is less than 280 after two hours, give no insulin and resume prior schedule. DO NOT hold if NPO, unless specifically directed to do so by written order. Per Blood Glucose Monitoring Policy, re-check a BG of > 240 mg/dL in 2 hours., Routine Given 02/23/2022 4:00 AM EDT 2 Units Given 02/22/2022 11:10 PM EDT 2 Units insulin lispro (HumaLOG;Admelog) (100 Given 02/23/2022 10:25 AM EDT 5 Units unit/mL) subcutaneous injection vial 0-8 Units 0-8 Units, Subcutaneous, 3 TIMES DAILY WITH MEALS, First dose on Mon02/20/22 at 0830, Until Discontinued, [employer] Give 1 unit for every 10 grams carbohydrate. Hold if not eating or if BG less than 70 mg/dL., Routine Given 02/22/2022 5:47 PM EDT 8 Units Given 02/22/2022 1:14 PM EDT 6 Units insulin lispro (HumaLOG;Admelog) (100 Given 02/24/2022 7:37 AM E DT 6 Units unit/mL) subcutaneous injection vial 1-6 Units 1-6 Units, Subcutaneous, EVERY 4 HOURS SCHEDULED, First dose on Mon02/23/22 at 1215, Until Discontinued, CORRECTION BOLUS [1-6 Units] Moderate Sliding Scale (BG in mg/dL): Correction factor 20 (1 unit of insulin is expected to drop the glucose 20 mg/dL) BG 140 - 160 Give 1 unit BG 161 - 180 Give 2 units BG 181 - 200 Give 3 units BG 201 - 220 Give 4 units BG 221 - 240 Give 5 units BG greater than 240, give 6 units and recheck BG in 2 hours. - If recheck BG is LESS than 240, give no insulin and resume schedule. - If recheck BG is GREATER than 240, give 6 units and repeat BG in 2 hours (no more than 3 times) & call for new insulin orders. DO NOT hold if NPO, unless specifically directed to do so by written order. Per Blood Glucose Monitoring Policy, re-check a BG of > 240 mg/dL in 2 hours., Routine Given 02/23/2022 9:55 PM EDT 2 Units Left Arm Given 02/23/2022 5:37 PM EDT 4 Units insulin lispro (HumaLOG;Admelog) (100 Given 02/21/2022 3:11 AM E DT 12 Units unit/mL) subcutaneous injection vial 2-12 Units 2-12 Units, Subcutaneous, EVERY 4 HOURS SCHEDULED, First dose on Mon02/20/22 at 0830, Until Discontinued, CORRECTION BOLUS [2-12 Units] Resistant Sliding Scale (BG in mg/dL) Correction Factor 10 (1 unit of insulin is expected to drop the glucose 10 mg/dL) BG 140 - 160 Give 2 units BG 161 - 180 Give 4 units BG 181 - 200 Give 6 units BG 201 - 220 Give 8 units BG 221 - 240 Give 10 units BG greater than 240, give 12 units and recheck BG in 2 hours. - If recheck BG is LESS than 240, give no insulin and resume schedule. - If recheck BG is GREATER than 240, give 12 units and repeat BG in 2 hours (no more than 3 times) & call for new insulin orders. DO NOT hold if NPO, unless specifically directed to do so by written order. Per Blood Glucose Monitoring Policy, re-check a BG of > 240 mg/dL in 2 hours, Routine Given 02/21/2022 12:05 AM EDT 10 Units Given 02/20/2022 8:23 PM EDT 6 Units ketorolac (Toradol) (30 mg/mL) injection 15 Given 02/22/2022 12:29 PM EDT 15 mg mg 15 mg, Intravenous, EVERY 6 HOURS, 4 doses, First dose on Mon02/21/22 at 1815, Last dose on Mon02/22/22 at 1215, Routine Given 02/22/2022 6:03 AM EDT 15 mg Given 02/21/2022 11:36 PM EDT 15 mg lactated Ringers 1,000 mL IV bolus New Bag 02/19/2022 7:00 PM EDT Intravenous, ONCE, 1 dose, On Mon02/19/22 at 1915 lactated ringers infusion New Bag 02/19/2022 7:46 AM EDT 1,000 mLs 100 mL/hr 1,000 mL, at 100 mL/hr, Intravenous, CONTINUOUS, Starting on Mon02/19/22 at 0800, Until Mon02/19/22 at 1359, Recovery ([facility]) lactated ringers infusion New Bag 02/21/2022 3:00 PM EDT 100 mL/hr 100 mL/hr 100 mL/hr, Intravenous, CONTINUOUS, Starting on Mon02/21/22 at 0800, Until Mon02/21/22 at 1555 lidocaine (Lidoderm) 5% Patch Applied 02/23/2022 5:37 PM 3 patches 15- Thigh patch 3 patch EDT Anterior (Left) 3 patch, Transdermal, EVERY 24 HOURS, First dose on Mon02/21/22 at 1745, Until Discontinued, Apply patch(es) for 12 hours, and then remove for 12 hours., Routine Patch Applied 02/22/2022 5:42 PM EDT 3 patches 15- Thigh Anterior (Left) Patch Applied 02/21/2022 5:41 PM EDT 3 patches 15- Thigh Anterior (Left) lidocaine (Lidoderm) topical patch REMOV AL Transdermal, EVERY 24 HOURS, First dose on Mon02/22/22 at 0500, Until Discontinued, Remove lidocaine 5% patch metoprolol succinate XL (Toprol-XL) tablet 50 Given 9:23 AM EDT 50 mg mg 50 mg, Oral, DAILY, First dose on Mon02/19/22 at 0945, Until Discontinued, DO NOT CRUSH OR OPEN Hold for SBP<90 or HR<60, Routine Given 02/23/2022 10:09 AM EDT 50 mg Given 02/22/2022 9:58 AM EDT 50 mg metroNIDAZOLE (Flagyl) 500 mg in New Bag 02/19/2022 2:39 PM ED T 500 mg 200 mL/hr sodium chloride 0.9% 100 mL infusion 500 mg, Intravenous, EVERY 8 HOURS, 1 dose, First dose (after last modification) on Mon02/19/22 at 1315, Administer over 30 Minutes, 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 metroNIDAZOLE (Flagyl) 500 mg in New Bag 02/22/2022 6:05 AM ED T 500 mg 200 mL/hr sodium chloride 0.9% 100 mL infusion 500 mg, Intravenous, EVERY 8 HOURS, First dose (after last reorder) on Mon02/20/22 at 0700, Until Discontinued, Administer over 30 Minutes, 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 New Bag 02/21/2022 10:24 PM EDT 500 mg 200 mL/hr New Bag 02/21/2022 3:54 PM EDT 500 mg 200 mL/hr metroNIDAZOLE (Flagyl) tablet 500 mg Given 02/24/2022 9:22 AM EDT 500 mg 500 mg, Oral, 2 TIMES DAILY, 14 doses, First dose on Mon02/22/22 at 2100, Last dose on Mon03/01/22 at 0900, Routine, 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 Given 02/23/2022 9:57 PM EDT 500 mg Given 02/23/2022 10:11 AM EDT 500 mg morphine (4 mg/mL) injection 4 mg Given 02/19/2022 3:48 AM EDT 4 mg 4 mg, Intravenous, ONCE, 1 dose, On Mon02/19/22 at 0337, STAT nicotine (Nicoderm CQ) 14 Given 02/24/2022 10:44 AM EDT 14 mg 04- Shoulder (Right) mg/24 hr patch 14 mg 14 mg (1 patch), Transdermal, EVERY 24 HOURS, First dose on 02/19/22 at 1145, Until Discontinued, Apply new patch to nonhairy, clean, dry skin on the upper body or upper outer arm; each patch should be applied to a different site , Routine Given 02/23/2022 11:01 AM EDT 14 mg 09- Arm Upper (Left) Given 02/22/2022 12:33 PM EDT 14 mg 04- Shoulder (Right) nicotine (NICODERM CQ) patch REMOVAL Transdermal, EVERY 24 HOURS, First dose on 02/20/22 at 1130, Until Discontinued, Remove Nicotine Patch ondansetron (pf) (Zofran) (2 mg/mL) inje ction 4-8 mg 4-8 mg, Intravenous, EVERY 8 HOURS PRN, Starting on 02/19/22 at 0921, Until Toya 02/24/22 at 1434, Nausea, Start with 4mg and if ineffective in 30 minutes, give an additional 4mg If multiple antiemetic s are ordered, give ondansetron first. ondansetron (Zofran) tablet 4-8 mg 4-8 mg, Oral, EVERY 8 HOURS PRN, Startin g on 02/19/22 at 0921, Until Toya 02/24/22 at 1434, Nausea, Vomiting, If multiple antiemetics are ordered, use ondansetron first. PO Preferred. If patient unable to take PO, may give IV if ordered. Start with 4mg and if ineffective in 45 minutes, give an add itional 4mg. If unable to take PO, may give IV., Routine oxyCODONE (Roxicodone) tablet 10 mg Given 02/21/2022 4:15 PM EDT 10 mg 10 mg, Oral, EVERY 4 HOURS PRN, Starting on 02/20/22 at 1017, Until 02/21/22 at 1646, Pain, PRN for pain not controlled by scheduled pain meds. Give 10mg for moderate pain (1-6). Additional 5mg if severe pain (7-10)., Routine Given 02/21/2022 11:58 AM EDT 10 mg Given 02/21/2022 6:08 AM EDT 10 mg oxyCODONE (Roxicodone) tablet 10 mg Given 02/24/2022 6:17 AM EDT 10 mg 10 mg, Oral, EVERY 6 HOURS, First dose on Mon02/22/22 at 1200, Until Discontinued, Routine Given 02/24/2022 12:05 AM EDT 10 mg Given 02/23/2022 5:37 PM EDT 10 mg oxyCODONE (Roxicodone) tablet 10 mg Given 02/23/2022 11:00 AM EDT 5 mg 10 mg, Oral, EVERY 3 HOURS PRN, Starting on Mon02/22/22 at 1003, Until Mon02/23/22 at 1331, Pain, severe pain (7-10), May give additional 5 mg in 30 minutes once if pain not relieved., Routine Given 02/23/2022 10:09 AM EDT 10 mg Given 02/23/2022 6:59 AM EDT 10 mg oxyCODONE (Roxicodone) tablet 10 mg 10 mg, Oral, EVERY 3 HOURS PRN, Starting on Mon02/23/22 at 1330, Until Toya 02/24/22 at 1434, Pain, moderate pain (4-6), May give additional 5 mg in 30 minutes once if pain not relieved., Routine oxyCODONE (Roxicodone) tablet 10-15 mg Given 02/20/2022 5:36 AM EDT 10 mg 10-15 mg, Oral, EVERY 6 HOURS PRN, Starting on 02/19/22 at 0917, Until 02/20/22 at 0802, Pain, If severe pain (7-10) can give 15mg If moderate pain (1-6) start with 10, then can add an additional 5mg if pain not controlled, Routine Given 02/19/2022 11:34 PM EDT 10 mg Given 02/19/2022 6:59 PM EDT 10 mg oxyCODONE (Roxicodone) tablet 15 mg Given 02/22/2022 6:04 AM EDT 15 mg 15 mg, Oral, EVERY 4 HOURS PRN, Starting on Mon02/21/22 at 1646, Until Tu02/22/22 at 0714, Pain, severe pain or opiate tolerant patient (7-10), Do not start patient with 15 mg dose. Do not give 15 mg if patient is opiate niave., Routine Given 02/22/2022 12:09 AM EDT 15 mg Given 02/21/2022 8:16 PM EDT 15 mg oxyCODONE (Roxicodone) tablet 15 mg Given 02/22/2022 9:56 AM EDT 15 mg 15 mg, Oral, EVERY 3 HOURS PRN, Starting on Mon02/22/22 at 0715, Until Mon02/22/22 at 1004, Pain, severe pain or opiate tolerant patient (7-10), Do not start patient with 15 mg dose. Do not give 15 mg if patient is opiate niave., Routine oxyCODONE (Roxicodone) tablet 15 mg Given 02/24/2022 10:45 AM EDT 15 mg 15 mg, Oral, EVERY 3 HOURS PRN, Starting on Mon02/23/22 at 1330, Until Mon02/24/22 at 1434, Pain, severe pain (7-10), May give additional 5 mg in 30 minutes once if pain not relieved., Routine Given 02/24/2022 7:58 AM EDT 5 mg Given 02/24/2022 7:23 AM EDT 15 mg oxyCODONE (Roxicodone) tablet 5 mg Given 02/20/2022 8:24 AM EDT 5 mg 5 mg, Oral, EVERY 6 HOURS PRN, Starting on Mon02/20/22 at 0802, Until Mon02/20/22 at 1018, Pain, if not controlled by 10mg dose, PRN for pain not controlled by scheduled pain meds. Give 10mg for moderate pain (0-6). Additional 5mg if severe pain (7-10)., Routine oxyCODONE (Roxicodone) tablet 5 mg Given 02/21/2022 6:46 AM EDT 5 mg 5 mg, Oral, EVERY 4 HOURS PRN, Starting on 02/20/22 at 1030, Until 02/21/22 at 1646, Pain, if not controlled by 10mg dose, PRN for pain not controlled by scheduled pain meds. Give 10mg for moderate pain (1-6). Additional 5mg if severe pain (7-10)., Routine Given 02/21/2022 2:49 AM EDT 5 mg Given 02/20/2022 9:59 PM EDT 5 mg oxyCODONE (Roxicodone) tablet 5 mg Given 02/23/2022 6:24 AM EDT 5 mg 5 mg, Oral, EVERY 3 HOURS PRN, Starting on Tu02/22/22 at 1003, Until 02/23/22 at 1331, Pain, moderate pain (4-6), May give additional 5 mg in 30 minutes once if pain not relieved., Routine Given 02/23/2022 4:00 AM EDT 5 mg Given 02/22/2022 10:25 PM EDT 5 mg oxyCODONE (Roxicodone) tablet 5-10 mg Given 02/19/2022 8:19 AM EDT 5 mg 5-10 mg, Oral, EVERY 4 HOURS PRN, Starting on 02/19/22 at 0756, Until 02/19/22 at 0917, Pain, for MILD pain (1-3), Give 5 mg. If pain control not adequate in 60 minutes, give additional 5 mg., Routine pantoprazole EC (Protonix) tablet 20 mg Given 02/24/2022 9:23 AM EDT 20 mg 20 mg, Oral, DAILY, First dose on 02/19/22 at 0945, Until Discontinued, DO NOT CRUSH OR OPEN, Routine Given 02/23/2022 10:11 AM EDT 20 mg Given 02/22/2022 9:57 AM EDT 20 mg prochlorperazine (Compazine) (5 mg/mL) Given 02/19/2022 6:53 AM EDT 5 mg injection 5 mg 5 mg, Intravenous, EVERY 30 MIN PRN, 2 doses, Starting on 02/19/22 at 0604, Until 02/19/22 at 0921, Nausea, Maximum total dose of 10 mg (including OR administration). If multiple antiemetics ordered, use ondansetron first and if ineffective use prochlorperazine second and if ineffective use promethazine, PACU Recovery, Routine sodium chloride 0.9 % (flush) (BD PosiFlush Given 02/23/2022 9:5 7 PM EDT 5 mLs Normal Saline 0.9) flush 5 mL 5 mL, Intravenous, 2 TIMES DAILY, First dose on 02/19/22 at 0945, Until Discontinued, Recovery (Recovery-Hospital Unit), Routine Given 02/23/2022 11:01 AM EDT 5 mLs Given 02/22/2022 9:56 PM EDT 5 mLs zolpidem (Ambien) tablet 5 mg Given 02/24/2022 12:05 AM EDT 5 mg 5 mg, Oral, NIGHTLY PRN, Starting on 02/19/22 at 0921, Until Toya 02/24/22 at 1434, Sleep, Routine Given 02/22/2022 11:07 PM EDT 5 mg Given 02/21/2022 10:23 PM EDT 5 mg documented in this encounter Active and Recently Administered Medications Times are shown in EDT. Scheduled Medication Order 02/22/2022 02/23/2022 02/24/2022 acetaminophen (Tylenol) tablet 1,000 mg 0604 (Given - Provider: Francine Khoury RN)1228 (Given - Provider: Cyndi Machado RN)1742 (Given - Provider: Cyndi Machado RN)2305 (Given - Provider: Estrella Crowell RN) 0534 (Given - Provider: Estrella Crowell RN)1217 (Given - Provider: Keisha Gutierrez RN)1738 (Given - Provider: Keisha Gutierrez, DEVAN) 0005 (Given - Provider: Theresa Alvares RN)0617 (Given - Provider: Theresa Alvares RN) 1,000 mg, Oral, EVERY 6 HOURS SCHEDULED, First dose on 02/19/22 at 1200, Until Discontinued, Should be used concomitantly if other analgesics are ordered. Maximum dose of acetaminophen is 4000 mg from all sources in 24 hours., Routine aspirin EC tablet 81 mg 0958 (Given - Provider: Cyndi Machado RN) 1011 (Given - Provider: Hermelinda Lamas, DEVAN) 0922 (Given - Provider: Hermelinda Lamas, DEVAN) 81 mg, Oral, DAILY, First dose on Sat at 0945, Until Discontinued, Routine budesonide-formoteroL (Symbicort) 160-4.5 mcg/actuatio n inhaler 1 Inhalation 1001 (Given - Provider: Cyndi Machado RN)1947 (Given - Provider: Estrella Crowell RN) 1011 (Given - Provider: Hermelinda Lamas RN)220 (Given - Provider: Theresa Alvares, RN) 0921 (Given - Provider: Hermelinda Lamas, DEVAN) 1 Inhalation, Inhalation, 2 TIMES DAILY, First dose on Mon02/19/22 at 0945, Until Discontinued ceFEPime (Maxipime) 1g vial attach to so dium chloride 0.9% 100 mL Mini-Bag Plus (CANCELED) 0604 (New Bag - Provider: Francine lee RN)0634 (Stopped - Provider: Francine Khoury RN) 1 g, Intravenous, EVERY 8 HOURS, First d ose (after last reorder) on Mon02/20/22 at 0700, Until Discontinued, Administer over 30 Minutes, Indication 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): Skin/Skin Structure ceFEPime (Maxipime) 1g vial attach to so dium chloride 0.9% 100 mL Mini-Bag Plus (CANCELED) 1605 (New Bag - Provider: Mary dorado RN)1635 (Stopped - Provider: Mary Pablo RN) 1 g, Intravenous, EVERY 8 HOURS, First d ose on Mon02/22/22 at 1530, Until Discontinued, Administer over 30 Minutes, Indication 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): Skin/Skin Structure cephALEXin (Keflex) capsule 500 mg 1829 (Given - Provi ayad: Cyndi Machado RN)215 (Given - Provider: Estrella Crowell RN) 1010 (Given - Provider: Hermelinda Lamas, DEVAN)1300 (Given - Provider: Keisha Gutierrez, DEVAN)1700 (Given - Provider: Keisha Gutierrez, DEVAN)215 (Given - Provider: Theresa Alvares, DEVAN) 0922 (Given - Provider: Hermelinda Lamas, DEVAN) 500 mg, Oral, 4 TIMES DAILY, 28 doses, F irst dose on Mon02/22/22 at 1830, Last dose on Mon03/01/22 at 1300, Routine citalopram (CeleXA) tablet 40 mg 0957 (Given - Provider: Hemanth Machado RN) 1011 (Given - Provider: Hermelinda Lamas, DEVAN) 0922 (Given - Provider: Hermelinda Lamas RN) 40 mg, Oral, DAILY, First dose on Sat at 0945, Until Discontinued, Routine clindamycin (Cleocin) 600 mg in dextrose 5% 50 mL infu sj (CANCELED) 1635 (New Bag - Provider: Mary Pablo, RN)1655 (Stopped - Provider: Mary Pablo, DEVAN) 600 mg, Intravenous, EVERY 8 HOURS, Firs t dose on Mon02/22/22 at 1530, Until Discontinued, Administer over 20 Minutes, Indication 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): Skin/Skin Structure clopidogreL (Plavix) tablet 75 mg 0958 (Given - Provider: Indy Machado RN) 1009 (Given - Provider: Hermelinda Lamas RN) 0923 (Given - Provider: Hermelinda Lamas RN) 75 mg, Oral, DAILY, First dose on Mon at 0945, Until Discontinued, Routine dextromethorphan (Robitussin) capsule 15 mg 1228 (Give n - Provider: Cyndi Machado RN)1741 (Given - Provider: Cyndi Machado RN)2306 (Given - Provider: Estrella Crowell RN) 0534 (Given - Provider: Estrella Crowell RN)1216 (Given - Provider: Keisha Gutierrez, DEVAN)1738 (Given - Provider: Keisha Gutierrez RN) 0008 (Given - Provider: Theresa Alvares, DEVAN)0617 (Given - Provider: Theresa Alvares, DEVAN) 15 mg, Oral, EVERY 6 HOURS SCHEDULED, Fi rst dose on Mon02/22/22 at 1200, Until Discontinued, Routine docusate sodium (Colace) capsule 100 mg 0958 (Given - Provider: Cyndi Machado RN)1948 (Given - Provider: Estrella Crowell RN) 1011 (Given - Provider: Hermelinda Lamas, DEVAN)2156 (Given - Provider: Theresa Alvares, DEAVN) 0922 (Given - Provider: Hermelinda Lamas, DEVAN) 100 mg, Oral, 2 TIMES DAILY, First dose on Mon02/19/22 at 0945, Until Discontinued, Routine enoxaparin (Lovenox) (40 mg/0.4 mL) subcutaneous injec tion 40 mg 1947 (Given - Provider: Estrella Crowell RN) 2154 (Given - Provider: Theresa Alvares, DEVAN) 40 mg, Subcutaneous, NIGHTLY, First dose on 02/20/22 at 2100, Until Discontinued, Routine furosemide (Lasix) tablet 20 mg 956 (Given - Provider : Cyndi Machado RN)1947 (Given - Provider: Estrella Crowell, DEVAN) 1010 (Given - Provider: Hermelinda Lamas, DEVAN)2156 (Given - Provider: Theresa Alvares RN) 922 (Given - Provider: Hermelinda Lamas RN) 20 mg, Oral, 2 TIMES DAILY, First dose o n 02/19/22 at 0945, Until Discontinued, Routine gabapentin (Neurontin) capsule 1,200 mg 1947 (Given - Provider: Estrella Crowell RN) 2155 (Given - Provider: Theresa Alvares RN) 1,200 mg, Oral, NIGHTLY, First dose on S at 02/19/22 at 2100, Until Discontinued, Routine gabapentin (Neurontin) capsule 600 mg 956 (Given - Pr ovider: Cyndi Machado RN)160 (Given - Provider: Mary Pablo, DEVAN) 1010 (Given - Provider: Hermelinda Lamas RN)154 (Given - Provider: Keisha Gutierrez, DEVAN) 922 (Given - Provider: Hermelinda Lamas, DEVAN) 600 mg, Oral, 2 TIMES DAILY, First dose on 02/19/22 at 0945, Until Discontinued, Routine HYDROmorphone (Dilaudid) (0.5 mg/0.5 mL) injection syr sammi 0.3 mg (COMPLETED) 800 (Given - Provider: Cyndi Machado RN) 0.3 mg, Intravenous, ONCE, 1 dose, On Mon02/22/22 at 0830, Routi ne HYDROmorphone (Dilaudid) tablet 2 mg (COMPLETED) 102 (Given - Provider: Hermelinda Lamas RN) 2 mg, Oral, ONCE, 1 dose, On Mon02/23/22 at 1100, Routine ibuprofen (Advil) tablet 600 mg 101 (Gi pilar - Provider: Hermelinda Lamas RN)1542 (Given - Provider: Keisha Gutierrez, DEVAN)2156 (Given - Provider: Theresa Alvares, RN) 0424 (Given - Provider: Theresa Alvares, RN)1045 (Given - Provider: Hermelinda Lamas RN) 600 mg, Oral, EVERY 6 HOURS, First dose on Mon02/23/22 at 1030, Until Discontinued, Administer orally with milk or food to minimize GI irritation. Maximum dose of 3,200 mg from all sources in 24 hours, Routine insulin glargine-ygfn (Semglee) (100 uni t/mL) subcutaneous injection vial 15 Units (CANCELED) 0958 (Given - Provider: Cyndi Machado, RN) 1025 (Given - Provider: Hermelinda Lamas RN) 15 Units, Subcutaneous, DAILY, First dos e (after last modification) on Mon02/22/22 at 0900, Until Discontinued, Give even if NPO, Routine insulin glargine-ygfn (Semglee) (100 uni t/mL) subcutaneous injection vial 18 Units 0921 (Given - Provid er: Hermelinda Lamas RN) 18 Units, Subcutaneous, DAILY, First dos e on Mon02/24/22 at 0900, Until Discontinued, Routine insulin lispro (HumaLOG;Admelog) (100 un it/mL) subcutaneous injection vial 0-14 Units 1536 (Given - Provider: Brina Gutierrez RN - Comment: Just ate lunch now)1812 (Given - Provider: Hermelinda Lamas, DEVAN) 0921 (Given - Provider: Hermelinda Lamas RN) 0-14 Units, Subcutaneous, 3 TIMES DAILY WITH MEALS, First dose (after last modification) on Mon02/23/22 at 1215, Until Discontinued, [employer] Give 1 unit for every 6 grams carbohydrate. Hold if not eating or if BG less than 70 mg/dL., Routine insulin lispro (HumaLOG;Admelog) (100 un it/mL) subcutaneous injection vial 0-6 Units (CANCELED) 0339 (Given - Provider: Clif Vela PN)0959 (Given - Provider: Cyndi Machado, DEVAN) 0-6 Units, Subcutaneous, EVERY 4 HOURS S CHEDULED, First dose (after last modification) on Mon02/21/22 at 1600, Until Discontinued, CORRECTION BOLUS [1-6 Units] Sensitive Sliding Scale (BG in mg/dL): Correction factor 20 (1 unit of insulin is expected to drop the glucose 20 mg/dL) BG 140 - 160 Give 1 units BG 161 - 180 Give 2 units BG 181 - 200 Give 3 units BG 201 - 220 Give 4 units BG 221 - 240 Gi ve 5 units If BG greater than 240, give 6 units and recheck BG in 2 hours. If recheck BG remains GREATER THAN 240, GIVE 6 units (no more than two times) & call for new insulin orders. If recheck BG is less than 240 after two hours, give n o insulin and resume prior schedule. DO NOT hold if NPO, unless specifically directed to do so by written order. Per Blood Glucose Monitoring Policy, re-check a BG of > 240 mg/dL in 2 hours., Routine insulin lispro (HumaLOG;Admelog) (100 un it/mL) subcutaneous injection vial 0-6 Units (CANCELED) 1229 (Given - Provider: Cyndi Machado RN )1612 (Given - Provider: Mary Pablo, DEVAN)1949 (Given - Provider: Estrella Crowell, DEVAN)2310 (Given - Provider: Estrella Crowell, DEVAN) 0400 (Given - Provider: Estrella Crowell RN)0739 (Given - Provider: Keisha Gutierrez, DEVAN) 0-6 Units, Subcutaneous, EVERY 4 HOURS S CHEDULED, First dose (after last modification) on Mon02/22/22 at 1245, Until Discontinued, CORRECTION BOLUS [1-4 Units] Sensitive Sliding Scale (BG in mg/dL): Correction factor 40 (1 unit of insulin is expected to drop the glucose 40 mg/dL) BG 160 -?200?Give 1 unit? BG?201 - 240?Give 2 units? BG 241 -?280?Give 3 units? BG greater t horvath 280, give 4 units and recheck BG in 2 hours. If recheck BG remains GREATER THAN 280, GIVE 4 units (no more than two times) & call for new insulin orders. If recheck BG is less than 280 after two hours, give no insulin and resume prior schedule. DO NOT hold if NPO, unless specifically directed to do so by written order. Per Blood Glucose Monitoring Policy, re-check a BG of > 240 mg/dL in 2 hours., Routine insulin lispro (HumaLOG;Admelog) (100 un it/mL) subcutaneous injection vial 0-8 Units (CANCELED) 1000 (Given - Provider: Cyndi Machado RN )1314 (Given - Provider: Cyndi Machado RN)1747 (Given - Provider: Cyndi Machado RN) 1025 (Given - Provider: Hermelinda Lamas RN) 0-8 Units, Subcutaneous, 3 TIMES DAILY W ITH MEALS, First dose on Mon02/20/22 at 0830, Until Discontinued, [employer] Give 1 unit for every 10 grams carbohydrate. Hold if not eating or if BG less than 70 mg/dL., Routine insulin lispro (HumaLOG;Admelog) (100 un it/mL) subcutaneous injection vial 1-6 Units(Linked Group 1) 1215 (Given - Provider: Brina Gutierrez RN)1737 (Given - Provider: Keisha Gutierrez RN)2155 (Given - Provider: Theresa Alvares RN) 0000 (Not Given - Provider: Theresa Stern RN - Reason: Order parameters not met)0400 (Not Given - Provider: Theresa Alvares RN - Reason: Order parameters not met)0737 (Given - Provider: Carol Acosta LPN) 1-6 Units, Subcutaneous, EVERY 4 HOURS S CHEDULED, First dose on Mon02/23/22 at 1215, Until Discontinued, CORRECTION BOLUS [1-6 Units] Moderate Sliding Scale (BG in mg/dL): Correction factor 20 (1 un it of insulin is expected to drop the gl ucose 20 mg/dL) BG 140 - 160 Give 1 unit BG 161 - 180 Give 2 units BG 181 - 200 Give 3 units BG 201 - 220 Give 4 units BG 221 - 240 Give 5 units BG greater than 2 40, give 6 units and recheck BG in 2 judy rs. - If recheck BG is LESS than 240, give no insulin and resume schedule. - If recheck BG is GREATER than 240, give 6 units and repeat BG in 2 hours (no more chris n 3 times) & call for new insulin orders . DO NOT hold if NPO, unless specifically directed to do so by written order. Per Blood Glucose Monitoring Policy, re-check a BG of > 240 mg/dL in 2 hours., Routine ketorolac (Toradol) (30 mg/mL) injection 15 mg (COMPLE JOHNNY) 0603 (Given - Provider: Francine Khoury RN)1229 (Given - Provider: Cyndi Machado RN) 15 mg, Intravenous, EVERY 6 HOURS, 4 dos es, First dose on Mon02/21/22 at 1815, Last dose on Mon02/22/22 at 1215, Routine lidocaine (Lidoderm) 5% patch 3 patch(Linked Group 2) 1742 (Patch Applied - Provider: Cyndi Machado RN) 1737 (Patch Applied - Provider: Keisha Gutierrez RN) 3 patch, Transdermal, EVERY 24 HOURS, Fi rst dose on Mon02/21/22 at 1745, Until Discontinued, Apply patch(es) for 12 hours, and then remove for 12 hours., Routine lidocaine (Lidoderm) topical patch REMOVAL(Linked Grou p 2) 0500 (Patch Removed - Provider: Francine Khoury RN) 0500 (Patch Removed - Provider: Estrella Crowell RN) 0500 (Patch Removed - Provider: Theresa Alvares RN) Transdermal, EVERY 24 HOURS, First dose on Mon02/22/22 at 0500, Until Discontinued, Remove lidocaine 5% patch metoprolol succinate XL (Toprol-XL) tablet 50 mg 0958 (Given - Provider: Cyndi Machado RN) 1009 (Given - Provider: Hermelinda Lamas, DEVAN) 0923 (Giv en - Provider: Hermelinda Lamas, RN) 50 mg, Oral, DAILY, First dose on Mon at 0945, Until Discontinued, DO NOT CRUSH OR OPEN Hold for SBP<90 or HR<60, Routine metroNIDAZOLE (Flagyl) 500 mg in sodium chloride 0.9% 100 mL infusion (CANCELED) 0605 (New Bag - Provider: Francine lee RN)0635 (Stopped - Provider: Francine Khoury RN) 500 mg, Intravenous, EVERY 8 HOURS, Firs t dose (after last reorder) on Mon02/20/22 at 0700, Until Discontinued, Administer over 30 Minutes, 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 metroNIDAZOLE (Flagyl) tablet 500 mg 2154 (Given - Pro vider: Estrella Crowell RN) 1011 (Given - Provider: Hermleinda Lamas RN)2157 (Given - Provider: Theresa Alvares RN) 0922 (Given - Provider: Hermelinda Lamas RN) 500 mg, Oral, 2 TIMES DAILY, 14 doses, F irst dose on Mon02/22/22 at 2100, Last dose on Mon03/01/22 at 0900, Routine nicotine (Nicoderm CQ) 14 mg/24 hr patch 14 mg(Linked Group 3) 1233 (Given - Provider: Cyndi Machado RN) 1101 (Given - Provider: Hermelinda Lamas RN) 1044 (Given - Provider: Hermelinda Lamas RN) 14 mg (1 patch), Transdermal, EVERY 24 H OURS, First dose on 02/19/22 at 1145, Until Discontinued, Apply new patch to nonhairy, clean, dry skin on the upper body or upper outer arm; each patch should be applied to a different site , Routine nicotine (NICODERM CQ) patch REMOVAL(Linked Group 3) 1 130 (Patch Removed - Provider: Cyndi Machado RN) 1130 (Patch Removed - Provider: Hermelinda longoria RN) 0934 (Patch Removed - Provider: Hermelinda longoria RN) Transdermal, EVERY 24 HOURS, First dose on 02/20/22 at 1130, Until Discontinued, Remove Nicotine Patch oxyCODONE (Roxicodone) tablet 10 mg 1228 (Given - Prov ider: Cyndi Machado RN)1741 (Given - Provider: Cyndi Machado RN)2306 (Given - Provider: Estrella Crowell RN) 0534 (Given - Provider: Estrella Crowell RN)1216 (Given - Provider: Keisha Gutierrez, DEVAN)1737 (Given - Provider: Keisha Gutierrez, DEVAN) 0005 (Given - Provider: Theresa Alvares RN)0617 (Given - Provider: Theresa Alvares, DEVAN) 10 mg, Oral, EVERY 6 HOURS, First dose o n 02/22/22 at 1200, Until Discontinued, Routine pantoprazole EC (Protonix) tablet 20 mg 0957 (Given - Provider: Cyndi Machado RN) 1011 (Given - Provider: Hermelinda Lamas, RN) 0923 (Giv en - Provider: Hermelinda Lamas, RN) 20 mg, Oral, DAILY, First dose on Sat at 0945, Until Discontinued, DO NOT CRUSH OR OPEN, Routine sodium chloride 0.9 % (flush) (BD PosiFlush Normal Celestino ine 0.9) flush 5 mL 1000 (Given - Provider: Cyndi Machado RN)1956 (Given - Provider: Estrella Crowell, DEVAN)2156 (Given - Provider: Estrella Crowell, RN) 1101 (Given - Provider: Hermelinda Lamas, RN)2157 (Given - Provider: Theresa Alvares, DEVAN) 0900 (Not Given - Provider: Hermelinda Lamas RN - Reason: See comment - Comment: removing IV pt discharging) 5 mL, Intravenous, 2 TIMES DAILY, First dose on 02/19/22 at 0945, Until Discontinued, Recovery (Recovery-Hospital Unit), Routine PRN Medication Order 02/22/2022 02/23/2022 02/24/2022 albuteroL (Proventil) nebulizer solution 2.5 mg 2.5 mg, Nebulization, EVERY 4 HOURS PRN, Starting on 02/19/22 at 0921, Until Toya 02/24/22 at 1434, Wheezing, Shortness of Breath, Routine cyclobenzaprine (Flexeril) tablet 10 mg 0624 (Given - Provider: Estrella Crowell RN)1422 (Given - Provider: Hermelinda Lamas, DEVAN) 0005 (Given - Provider: Theresa Alvares, DEVAN)0520 (Given - Provider: Theresa Alvares, DEVAN) 10 mg, Oral, 3 TIMES DAILY PRN, Starting on 02/19/22 at 0717, Until Toya 02/24/22 at 1434, Muscle spasms, Routine dextrose 10% infusion(Linked Group 4) 250 mL, at 1,000 mL/hr, Intravenous, KONSTANTIN RY 30 MIN PRN, Starting on Mon02/23/22 at 1118, Until Toya 02/24/22 at 1434, For BG 50-70 mg/dL: Oral treatment preferred: [...] EVERY 30 MIN PRN, S tarting on Mon02/23/22 at 1118, Until Toya 02/24/22 at 1434, Low blood sugar, For BG 50-70 mg/dL: [...] Buccal, EVERY 30 MIN PRN, Starting on 02/23/22 at 1118, Until Toya 02/24/22 at 1434, Low blood sugar, For BG 50-70 mg/dL: [...] of tube = 37.5 grams.), Routin e HYDROmorphone (Dilaudid) (0.5 mg/0.5 mL) injection syr sammi 0.4 mg (CANCELED) 0010 (Given - Provider: Francine Khoury RN)0408 (Given - Provider: Francine Khoury RN) 0.4 mg, Intravenous, EVERY 4 HOURS PRN, Starting on 02/20/22 at 0809, Until Mon02/22/22 at 0714, Pain, for pain not controlled by scheduled and PO prn medications, May give an additional 0.2 mg in 30 minutes once if pain not relieved., Routine lidocaine (Xylocaine) 1% (10 mg/mL) injection 3 mg 3 mg (0.3 mL), Subcutaneous, ONCE PRN, 1 dose, Starting on 02/19/22 at 0921, Until Toya 02/24/22 at 1434, for discomfort with PIV insertion, Recovery (Recovery-Hospital Unit), Routine naloxone (Narcan) (0.4 mg/mL) injection 0.2 mg 0.2 mg, Intravenous, EVERY 1 MIN PRN, St arting on 02/19/22 at 0921, Until Toya 02/24/22 at 1434, Opioid Reversal, If respiratory rate less than 6 OR the patient is unable to arouse OR SpO2 is declining , Give for respiratory rate of less than or equal to 6 and patient is heavily sedated or unarousable. May repeat every 60 seconds to increase respiratory rate. DO NOT exceed 2 mg total dose., Recovery (Recovery-Hospital Unit), Routine ondansetron (pf) (Zofran) (2 mg/mL) injection 4-8 mg(Linked Grou p 5) 4-8 mg, Intravenous, EVERY 8 HOURS PRN, Starting on 02/19/22 at 0921, Until Toya 02/24/22 at 1434, Nausea, Start with 4mg and if ineffective in 30 minutes, give an additional 4mg If multiple antiemetics are ordered, give ondansetron first. ondansetron (Zofran) tablet 4-8 mg(Linked Group 5) 4-8 mg, Oral, EVERY 8 HOURS PRN, Startin g on 02/19/22 at 0921, Until Toya 02/24/22 at 1434, Nausea, Vomiting, If multiple antiemetics are ordered, use ondansetron first. PO Preferred. If patient un able to take PO, may give IV if ordered. Start with 4mg and if ineffective in 45 minutes, give an additional 4mg. If unable to take PO, may give IV., Routine oxyCODONE (Roxicodone) tablet 10 mg (CANCELED) 1313 (G iven - Provider: Cyndi Machado RN)1357 (See Alternative - Provider: Cyndi Machado RN)1608 (Given - Provider: Mary Pablo RN)1902 (Given - Provider: Mary Pablo RN)1941 (See Alternative - Provider: Estrella Crowell RN) 0246 (Given - Provider: Estrella Crowell, DEVAN)0400 (See Alternative - Provider: Estrella Crowell RN)0624 (See Alternative - Provider: Estrella Crowell RN)0659 (Given - Provider: Estrella Crowell RN)1009 (Given - Provider: Hermelinda Lamas, DEVAN) 10 mg, Oral, EVERY 3 HOURS PRN, Starting on Mon02/22/22 at 1003, Until Mon02/23/22 at 1331, Pain, severe pain (7-10), May give additional 5 mg in 30 minutes once if pain not relieved., Routine 2156 (Given - Provider: Estrella Crowell RN)2225 (See Alternative - Provider: Estrella Crowell RN) 1100 (Given - Provider: Hermelinda Lamas RN - Comment: additional - pain uncontrolled) oxyCODONE (Roxicodone) tablet 10 mg(Linked Group 6) 1338 (See Alternative - Provider: Hermelinda Lamas RN)1422 (See Alternative - Provider: Hermelinda Lamas, DEVAN)1817 (See Alternative - Provider: Hermelinda Lamas, DEVAN)2156 (See Alternative - Provider: Theresa Alvares RN) 0112 (See Alternative - Provider: Theresa Alvares RN)0424 (See Alternative - Provider: Theresa Alvares RN)0518 (See Alternative - Provider: Theresa Alvares, DEVAN)0723 (See Alternative - Provider: Theresa Alvares, DEVAN) 10 mg, Oral, EVERY 3 HOURS PRN, Starting on Mon02/23/22 at 1330, Until Mon02/24/22 at 1434, Pain, moderate pain (4-6), May give additional 5 mg in 30 minutes once if pain not relieved., Routine 2242 (See Alternative - Provider: Theresa Alvares RN) 0758 (See Alternative - Provider: Hermelinda Lamas RN)1045 (See Alternative - Provider: Hermelinda Lamas RN) oxyCODONE (Roxicodone) tablet 15 mg (CANCELED) 0009 (G iven - Provider: Francine Khoury RN)0604 (Given - Provider: Francine Khoury RN) 15 mg, Oral, EVERY 4 HOURS PRN, Starting on Mon02/21/22 at 1646, Until Mon02/22/22 at 0714, Pain, severe pain or opiate tolerant patient (7-10), Do not start patient with 15 mg dose. Do not give 15 mg if patient is opiate niave., Routine oxyCODONE (Roxicodone) tablet 15 mg (CANCELED) 56 (G iven - Provider: Cyndi Machado RN) 15 mg, Oral, EVERY 3 HOURS PRN, Starting on Mon02/22/22 at 0715, Until Mon02/22/22 at 1004, Pain, severe pain or opiate tolerant patient (7-10), Do not start patient with 15 mg dose. Do not give 15 mg if patient is opiate niave., Routine oxyCODONE (Roxicodone) tablet 15 mg(Linked Group 6) 1338 (Given - Provider: Hermelinda Lamas RN)1422 (Given - Provider: Hermelinda Lamas RN - Comment: additional 5mg for unrelieved pain)1817 (Given - Provider: Hermelinda Lamas RN)2156 (Given - Provider: Theresa Alvares RN) 0112 (Given - Provider: Theresa Alvares RN)0424 (Given - Provider: Theresa Alvares RN)0518 (Given - Provider: Theresa Alvares RN)0723 (Given - Provider: Theresa Alvares, DEVAN) 15 mg, Oral, EVERY 3 HOURS PRN, Starting on Mon02/23/22 at 1330, Until Toya 02/24/22 at 1434, Pain, severe pain (7-10), May give additional 5 mg in 30 minutes once if pain not relieved., Routine 2242 (Give n - Provider: Theresa Alvares RN) 0758 (Given - Provider: Hermelinda Lamas RN - Comment: Additional 5mg for unrelieved pain)1045 (Given - Provider: Hermelinda Lamas RN) oxyCODONE (Roxicodone) tablet 5 mg (CANCELED) 1313 (Se e Alternative - Provider: Cyndi Machado RN)1357 (Given - Provider: Cyndi Machado RN - Comment: Additional 5mg from previous 10mg administration, per order, okay to give after 30 minutes) 0246 (See Alternative - Provider: Monie Crowell RN)0400 (Given - Provider: Estrella Crowell RN)0624 (Given - Provider: Estrella Crowell RN)0659 (See Alternative - Provider: Estrella Crowell RN) 5 mg, Oral, EVERY 3 HOURS PRN, Starting on Tu02/22/22 at 1003, Until Mon02/23/22 at 1331, Pain, moderate pain (4-6), May give additional 5 mg in 30 minutes once if pain not relieved., Routine 1608 (See Alternative - Provider: Mary Pablo RN)1902 (See Alternative - Provider: Mary Pablo RN)1941 (Given - Provider: Estrella Crowell RN)2156 (See Alternative - Provider: Estrella Crowell RN) 1009 (See Alternative - Provider: Hermelinda Lamas RN)1100 (See Alternative - Provider: Hermelinda Lamas RN) 2225 (Given - Provider: Estrella Crowell RN) polyethylene glycoL (Miralax) packet 17 g 17 g, Oral, DAILY PRN, Starting on Sat at 0921, Until Toya 02/24/22 at 1434, Constipation, Administer if no bowel movement within 48 hours to achieve: (1) One bowel movement at least every 48 hour s, AND (2) without straining. If multipl e PRN bowel medications ordered, start with polyethylene glycol, then lactulose, then oral bisacodyl, then bisacodyl suppository, then magnesium citrate, then tap water enema. Multiple medications may b e given concomitantly for constipation., Routine sodium chloride 0.9 % (flush) (BD PosiFlush Normal Saline 0.9) f lush 5-20 mL 5-20 mL, Intravenous, EVERY 1 MIN PRN, S tarting on 02/19/22 at 0921, Until Toya 02/24/22 at 1434, flush, Flush pertains to all indwelling lines. Flush per protocol found in the job aid using the link p rovided on this medication record., Recovery (Rec[facility]), Routine zolpidem (Ambien) tablet 5 mg 2307 (Given - Provider: Estrella Crowell, RN) 0005 (Given - Provider: Theresa Alvares RN) 5 mg, Oral, NIGHTLY PRN, Starting on 02/19/22 at 0921, Until Toya 02/24/22 at 1434, Sleep, Routine Linked Groups Order Group 1: POCT Fingerstick Glucose (CANCELED) Routine, EVERY 4 HOURS, First occurrence on Mon02/23/22 at 1120, Until Specified
Consider choosing EVERY 4 HOURS as frequency for: - Type 1 Diabetes - At least 24 hours after coming off an insu ovidio drip - At least 24 hours after admis sj for DKA - Hypoglycemia unawareness - Patients who are otherwise unstable Select the same frequency for the correction bolus insulin order And insulin lispro (HumaLOG;Admelog) (100 unit/mL) subcutaneous injection vial 1-6 UnitsJump to med 1-6 Units, Subcutaneous, EVERY 4 HOURS S CHEDULED, First dose on Mon02/23/22 at 1215, Until Discontinued
CORRECTION BOLUS [1-6 Units] Moderate Sliding Scale (BG in mg/dL): Correctio n factor 20 (1 unit of insulin is expect ed to drop the glucose 20 mg/dL) BG 140 - 160 Give 1 unit BG 161 - 180 Give 2 units BG 181 - 200 Give 3 units BG 201 - 220 Give 4 units BG 221 - 2 40 Give 5 units BG greater than 240, give 6 units and recheck BG in 2 hours. - If recheck BG is LESS than 240, give no insulin and resume schedule. - If recheck BG is GREAT ER than 240, give 6 units and repeat BG in 2 hours (no more than 3 times) & call for new insulin orders. DO NOT hold if NPO, unles s specifically directed to do so by writ ten order. Per Blood Glucose Monitoring Policy, re-check a BG of > 240 mg/dL in 2 hours.
Routine Group 2: lidocaine (Lidoderm) 5% patch 3 patchJump to med 3 patch, Transdermal, EVERY 24 HOURS, Fi rst dose on 02/21/22 at 1745, Until Discontinued
Apply patch(es) for 12 hours, and then remove for 12 hours.
Routine And lidocaine (Lidoderm) topical patch REMOVALJump to med Transdermal, EVERY 24 HOURS, First dose on Tu02/22/22 at 0500, Until Discontinued
Remove lidocaine 5% patch
Group 3: nicotine (Nicoderm CQ) 14 mg/24 hr patch 14 mgJump to med 14 mg (1 patch), Transdermal, EVERY 24 H OURS, First dose on 02/19/22 at 1145, Until Discontinued
Apply new patch to nonhairy, clean, dry skin on the upper body or upper outer arm; each patch should be applied to a different site&n bsp;
Routine And nicotine (NICODERM CQ) patch REMOVALJump to med Transdermal, EVERY 24 HOURS, First dose on 02/20/22 at 1130, Until Discontinued
Remove Nicotine Patch
Group 4: glucose (Glutose) 40% oral geLJump to med 15-30 g of glucose, Buccal, EVERY 30 MIN PRN, Starting on Mon02/23/22 at 1118, Until Toya 02/24/22 at 1434, Low blood sugar
For BG 50-70 mg/dL: [...] KONSTANTIN RY 30 MIN PRN, Starting on Mon02/23/22 at 1118, Until Toya 02/24/22 at 1434
For BG 50-70 mg/dL: Oral t reatment [...] episode. & nbsp; For persistent hypoglycemia, con safety engineer pressure vessels longer-acting treatment for the duration of the active insulin.
Or glucagon (Glucagen) (1 mg/mL) injection solution 1 mgJump to med 1 mg, Intramuscular, EVERY 30 MIN PRN, S tarting on 02/23/22 at 1118, Until Toya 02/24/22 at 1434, Low blood sugar
For BG 50-70 mg/dL: [...] the duration of the active insulin.
Routine Group 5: ondansetron (Zofran) tablet 4-8 mgJump to med 4-8 mg, Oral, EVERY 8 HOURS PRN, Startin g on 02/19/22 at 0921, Until Toya 02/24/22 at 1434, Nausea, Vomiting
If multiple antiemetics are ordered, use ondansetron first. PO Prefer red. If patient unable to take PO, may g mateo IV if ordered. Start with 4mg and if ineffective in 45 minutes, give an additional 4mg. If unable to take PO, may give IV.
Routine Or ondansetron (pf) (Zofran) (2 mg/mL) injection 4-8 mgJump to med 4-8 mg, Intravenous, EVERY 8 HOURS PRN, Starting on 02/19/22 at 0921, Until Toya 02/24/22 at 1434, Nausea
Start with 4mg and if ineffective in 30 minutes, give an additional 4mg If multiple antiemetics are ordered, give ondansetron first.
Group 6: oxyCODONE (Roxicodone) tablet 10 mgJump to med 10 mg, Oral, EVERY 3 HOURS PRN, Starting on 02/23/22 at 1330, Until Toya 02/24/22 at 1434, Pain, moderate pain (4-6)
May give additional 5 mg in 30 minutes once if pain not relieved.
Routine Or oxyCODONE (Roxicodone) tablet 15 mgJump to med 15 mg, Oral, EVERY 3 HOURS PRN, Starting on 02/23/22 at 1330, Until Toya 02/24/22 at 1434, Pain, severe pain (7-10)
May give additional 5 mg in 30 minutes once if pain not relieved.
Routine documented in this encounter Care Teams Tyre Builder Relationship Specialty Start Date End Date Lora Parekh MD PCP - General Family Medicine 08/06/[address] [place] [phone] documented as of this encounter
--- OUTSIDE RECORDS SUMMARY | 2022-08-14 18:36 | XMS_ITS | Encounter Summary ---
:1975 [place] [address] Care Team Providers Name Role Phone Valentin Parekh MD Primary Care Provider Reason for Visit Auth/Cert Specialty Diagnoses / Procedures Referred By Contact Refer red To Contact Diagnoses Myositis Necrotizing Fasciitis Referral ID Status Reason Start Date Expiration Date Visits Requ ested Visits Authorized [id number] 1 1 Encounter Details Date Type Department Care Team Description 02/19/2022 Anesthesia Event Main Operating Room Heath Baez MD [facility] [place] [place] [address] [facility] Jessica Sam MD [facility] [place] [address] [place] [address] Anesthesia Record Procedure Summary Procedure Name Responsible Anesthesia Start Anesthesia Stop Anesthesiologist Time Time FASCIOTOMY, LOWER LEG, Heath Benitez MD 02/19/2201/31 0621 ALL COMPARTMENTS (WRVU 7.82) (Left: Leg Lower) Events Date Time Event Comment 02/19/2022 0510 AN Verify 0510 Start 0510 An Start Data 0520 An Induction 0522 An Intubation 0527 Anesthesia Ready 0608 Extubation/LMA Out 0612 an stop data 0620 Recovery or ICU Handoff Patient care was transferred to the destination unit staff after review of the patient's medica l history, current anesthetic/surgi omid status and plan, according to the Provider Handoff Checklist. 0621 Stop 02/20/2022 0651 Name Total fentaNYL 100 mcg IV Lidocaine 100 mg Propofol 250 mg Rocuronium 50 mg Clindamycin 300 mg metroNIDAZOLE (Flagyl) 500 mg in sodium chloride 0.9% 100 mL infusion 500 mg vancomycin (Vancocin) 1.5 gram in sodium chloride 0.9% 500 mL infusion 1.5 g ceFEPime 1 g Sugammadex 200 mg HYDROmorphone 2 mg/mL 0.4 mg Lactated Ringers 400 mL Agents Name O2 Air N2O Sevoflurane (et) Blood No blood administrations on file. Lines, Drains, and Airways Type Details Placement Removal Incision 02/19/22; 0544; Left, 02/19/22 0544 by medial; calf; vertical Padma Artis RN Incision 02/19/22; 0550; Left, 02/19/22 0550 by lateral; calf; vertical Padma Artis RN PIV 02/19/22; 0000 (PAT, 02/19/22 0000 by 02/24/22 1 034 by OSH); median cubital vein Thien Wayne RN Raj ss, Carol Kulkarni, (antecubital fossa), MANAGER COMPENSATION left; 18 gauge; no longer indicated, removed per policy/procedure, removed per physician, catheter/device intact; 02/24/22; 1034 ETT Mask Ventilation: Easy 02/19/22 0522 by 02/19/22 0608 by (1); ETT Type: Cuffed, Jessica Sam MD Floyd, Megan S, MD Oral; ETT Size: 7 mm; Mac Blade: 3; Notes: Asleep, Pre-O2, Stylette; Attempts: 1; Laryngoscopy Grade: 1; ETT Placement Verified By: Capnometry, Visual; Secured at Teeth: 21 cm; Inserted by: Charles Sam MD Urethral Catheter 02/19/22; 0538; 02/19/22 0538 by 02/19/22 0600 by indwelling double lumen Padma Artis RN B Padma snowden, catheter; latex; 14; RN inserted at this facility; drainage bag to dependent drainage; 02/19/22; 0600 documented in this encounter Social History Tobacco Use Types Packs/Day Years Used Date Smoking Tobacco: Every Day Cigarettes 0.5 Smokeless Tobacco: Never Alcohol Use Standard Drinks/Week Comments Yes 0 (1 standard drink = 0.6 oz pure alcoho l) occasional Sex Assigned at Date Recorded Not on file documented as of this encounter OR Notes Anesthesia Postprocedure Evaluation - Heath Benitez MD - 02/20/2022 6:52 AM EDT Department of Anesthesiology Post-procedure Note Patient: Aracelis Monique Procedure Summary Date: 02/19/22 Room / Location: [address] MAIN OR Anesthesia Start: 509 Anesthesia Stop: 620 Procedure: FASCIOTOMY, LOWER LEG, ALL COMPARTMENTS (WRVU 7.82) (Left Leg Lower) Diagnosis: (myositis. possible NSTI.) Surgeons: Valentin Mark MD Responsible Provider: Heath Benitez MD Anesthesia Type: general ASA Status: 4 - Emergent All Anesthesia Providers: Anesthesiologist: Heath Benitez MD Supervisor [employer]: Jessica Sam MD Vitals Value Taken Time BP 126/67 02/19/22 1000 Temp 36.9 ??C (98.4 ??F) 02/19/22 0931 Pulse 95 02/19/22 0847 Resp 26 02/19/22 0847 SpO2 96 % 02/19/22 1014 Pain Level 9 02/19/22 0928 Vitals shown include unvalidated device data. Patient Location: PACU/[facility] Level of Consciousness: Awake and Alert Pain Management: Satisfactory Analgesia PONV: None Cardiovascular Status: At Baseline and Hemodynamically Stable Respiratory Status: At Baseline and Room Air Postoperative Fluid Status: Intravascular EUvolemia Possible Anesthetic Complications: NONE apparent at time of evaluation Final Primary Anesthesia Type: General (The anesthetic type performed was the same as planned.) Comments: HEATH BENITEZ MD Anesthesia Preprocedure Evaluation - Heath Benitez MD - 02/19/2022 4:55 AM EDT Pre-Anesthesia Evaluation for: Aracelis Monique a 46 y.o. female. Procedure(s): FASCIOTOMY, LOWER LEG, ALL COMPARTMENTS (WRVU 7.82) Patient Active Problem List Diagnosis Date Noted ??? NSTEMI (non-ST elevated myocardial infarction) 09/02/2021 ??? Dislocation of left shoulder joint, chronic, recurrent, with multiple surgeries. 08/02/2012 No past medical history on file. No past surgical history on file. Social History Tobacco Use ??? Smoking status: Current Every Day Smoker Packs/day: 0.50 ??? Smokeless tobacco: Never Used Substance Use Topics ??? Alcohol use: Yes Comment: occasional Social History Substance and Sexual Activity Drug Use No Allergies Allergen Reactions ??? Penicillins Spoke to mother Vicenta. Rash and SOB as a child ??? Trazodone Medications: MAR and/or home medications have been reviewed. Physical Exam: Preprocedure Vitals Current as of 02/19/22 0455 BP: 129/72 Pulse: Resp: SpO2: 98 Temp: Height: Weight: 79.4 kg (175 lb) (02/19/22) BMI: IBW: Last edited 02/19/22 0430 by AD Airway Assessment: Mallampati: II Cardiovascular Assessment: Rhythm: regular Pulmonary Assessment: unlabored breathing Dental Assessment: Misc Assessment: Last Filed Perioperative Cognitive Screening None Anesthesia Plan: ASA 4 emergent general, PRELIMINARY NOTE - PER CHART REVIEW 46 y.o. 79kg female with a BMI of 30, PMH significant for NSTEMI stented x4 (Aug 2021), current smoker (1/2ppd), RAQUEL (unable to get CPAP, on 2-3L O2QHS), GERD (PPI), daily marijuana user, IDDM . Patient is presenting with possible necrotizing fasciitis, scheduled for emergent fasciotomy. Allergies reviewed Anesthetic Plan: GA w/ ETT, RSI Analgesia: tylenol, fentanyl, toradol Antiemetic: zofran, decadron Standard ASA monitoring PIV access Jessica Sam MD 02/19/2022 Informed Consent: Anesthesia Screening documented in this encounter Plan of Treatment Upcoming Encounters Date Type Specialty Care Team Description 08/22/2022 Appointment Cardiology 08/22/2022 Laboratory Appointment Lab 08/22/2022 Office Visit Cardiology Tameka Neal MD [facility] [address] [place] [address] (Wo rk) documented as of this encounter Visit Diagnoses Not on filedocumented in this encounter Administered Medications Inactive Administered Medications - up to 3 most recent administrations Medication Order MAR Action Action Date Dose Rate Site ceFEPime (Maxipime) injection Given 02/19/2022 6:00 AM EDT 1 g Intravenous, PRN, Starting on 02/19/22 at 0600, Until 02/19/22 at 0621, Anesthesia Intra-op, Routine clindamycin (Cleocin) (150 mg/mL) inject ion Given 02/19/2022 5:30 AM EDT 300 mg Intravenous, PRN, Starting on 02/19/22 at 0530, Until 02/19/22 at 0621, Anesthesia Intra-op, Routine fentaNYL (pf) (50 mcg/mL) multi-dose Given 02/19/2022 5:57 AM ED T 50 mcg injection Intravenous, PRN, Starting on 02/19/22 at 0514, Until 02/19/22 at 0621, Anesthesia Intra-op, Routine Given 02/19/2022 5:14 AM EDT 50 mcg HYDROmorphone (Dilaudid) (2 mg/mL) multi-dose Given 6:16 AM EDT 0.4 mg injection solution Intravenous, PRN, Starting on 02/19/22 at 0616, Until 02/19/22 at 0621, Anesthesia Intra-op, Routine lactated ringers infusion New Bag 02/19/2022 5:14 AM EDT Intravenous, CONTINUOUS PRN, Starting on 02/19/22 at 0514, Until 02/19/22 at 0621, Anesthesia Intra-op lidocaine (pf) (Xylocaine) (20 mg/mL) 2% Given 02/19/2022 5:20 A M EDT 100 mg injection syringe Intravenous, PRN, Starting on 02/19/22 at 0520, Until 02/19/22 at 0621, Anesthesia Intra-op, Routine metroNIDAZOLE (Flagyl) 500 mg in sodium Given 02/19/2022 5:40 AM EDT 500 mg chloride 0.9% 100 mL infusion 500 mg, Intravenous, EVERY 8 HOURS, First dose on 02/19/22 at 0501, Until Discontinued, Administer over 30 Minutes, 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 propofoL (Diprivan) 10 mg/mL bolus injection Given 5:28 AM EDT 50 mg (Anesthesia) Intravenous, PRN, Starting on 02/19/22 at 0520, Until 02/19/22 at 0621, Anesthesia Intra-op Given 02/19/2022 5:20 AM EDT 200 mg rocuronium (Zemuron) (10 mg/mL) multi-dose Given 02/19/2022 5:20 AM EDT 50 mg injection Intravenous, PRN, Starting on 02/19/22 at 0520, Until 02/19/22 at 0621, Anesthesia Intra-op, Routine sugammadex (Bridion) 100 mg/mL injection Given 02/19/2022 6:04 AM EDT 200 mg Intravenous, PRN, Starting on 02/19/22 at 0604, Until 02/19/22 at 0621, Anesthesia Intra-op, Routine vancomycin (Vancocin) 1.5 gram in sodium Given 02/19/2022 5:48 A M EDT 1.5 g chloride 0.9% 500 mL infusion 1.5 g, Intravenous, EVERY 12 HOURS, First dose on 02/19/22 at 0600, Until Discontinued, Administer over 90 Minutes, Maximum infusion rate is 1 gram/hour. If flushing of the face, neck, upper body, arms, and/or back occurs decrease infusion rate by 50% to reduce the severity of symptoms. This medication may have an associated drug lab level. Please see MAR for scheduled level. Warning Vesicant/Irritant Medication , Indication 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): Other (See comment) documented in this encounter Care Teams Manager Maintenance Relationship Specialty Start Date End Date Valentin Parekh MD PCP - General Family Medicine 08/06/[address] [place] [phone] documented as of this encounter
--- OUTSIDE RECORDS SUMMARY | 2022-08-14 18:36 | XMS_ITS | Encounter Summary ---
:1975 Author Organization [facility] [address] [place] [address] Care Team Providers Name Role Phone Valentin Parekh MD Primary Care Provider Encounter Details Date Type Department Care Team Description 02/18/2022 Ancillary Procedure Radiology [facility] [place] [phone] Social History Tobacco Use Types Packs/Day [...] Cardiology Tameka Neal MD [facility] [place], [place] [address] (Wo rk) documented as of this encounter Procedures Procedure Name Priority Date/Time Associated Diagnosis Comme nts FILM LIBRARY STAT 02/18/2022 12:00 AM Results for this STORAGE ONLY [...] is for storage only. Valentin Parekh MD IM FILM LIBRARY ORDERABLES documented in this encounter Visit Diagnoses Not on filedocumented in this encounter Care Teams Nsh Teacher Relationship Specialty Start Date End Date Valentin Parekh MD PCP - General Family Medicine 08/06/[address] [place] [phone] documented as of this encounter
--- OUTSIDE RECORDS SUMMARY | 2022-08-14 18:36 | XMS_ITS | Encounter Summary ---
:1975 Author Organization [facility] [place] [address] Care Team Providers Name Role Phone Valentin Parekh MD Primary Care Provider Encounter Details Date Type Department Care Team Description 09/15/2021 Telephone Cardiology SensePalomo johnson MD [facility] [place] [phone] CARDIOLOGY DEPT [phone] [place], [place] [address] (Wo rk) Social History Tobacco Use Types Packs/Day Years Used Date Smoking Tobacco: Every Day Cigarettes 0.5 Smokeless Tobacco: Never Alcohol Use Standard Drinks/Week Comments Yes 0 (1 standard drink = 0.6 oz pure alcoho l) occasional Sex Assigned at Date Recorded Not on file documented as of this encounter Miscellaneous Notes Telephone Encounter - Palomo Liu MD - 09/15/2021 12:26 AM EST Consult for chest pain and CHF from Valentin Toro from [facility]. Hx 46 year old female with T2DM, chronic pain, recently discharged following an NSTEMI (RCA disease s/pDES and 70% long segment LAD lesion not revascularized) and new findings of HFrEF (EF 37% w/ moderate MR) presenting with ADCHF. Complains of dizziness, nausea, and edema since being discharged home. She is now taking 40 mg lasixin AM and 60 mg in PM and still feels like she is accumulating fluid. Came to ER today with central chest pressure, which is new. Pain on ER arrival with resolution with 1 SLNTG. VS: 92/64 86 17 99ra 98.3 Troponin is 16 (ULN 60) ProBNP 3300 (530 was last value) CXR - visually looks like pulmonary vascular congestion. A/P: Acute decompensated CHF. Recommended admission for IV diuresis and re- establishing a dry weight. Chest pain likely demand ischemia to LAD territory in setting of CHF. Should get better with diuresis. I do not think she is having a plaque rupture MT. Palomo Liu MD Cardiovascular Fellow. documented in this encounter Plan of Treatment Upcoming Encounters Date Type Specialty Care Team Description 08/22/2022 Appointment Cardiology 08/22/2022 Laboratory Appointment Lab 08/22/2022 Office Visit Cardiology Tameka Neal MD [facility] [address] [place] [address] (Wo rk) documented as of this encounter Visit Diagnoses Not on filedocumented in this encounter Care Teams Powder Carrier Relationship Specialty Start Date End Date Valentin Parekh MD PCP - General Family Medicine 08/06/21 [address] [place] [phone] documented as of this encounter
--- OUTSIDE RECORDS SUMMARY | 2022-08-14 18:36 | XMS_ITS | Encounter Summary ---
:1975 [place] [address] Care Team Providers Name Role Phone Valentin Parekh MD Primary Care Provider Reason for Visit Auth/Cert Specialty Diagnoses / Procedures Referred By Contact Refer red To Contact Diagnoses Myositis Necrotizing Fasciitis Referral ID Status Reason Start Date Expiration Date Visits Requ ested Visits Authorized [id number] 1 1 Encounter Details Date Type Department Care Team Description 02/21/2022 Anesthesia Event Main Operating Room Berry Burgess MD [facility] [place] [phone] Anesthesia Record Procedure Summary Procedure Name Responsible Anesthesia Start Anesthesia Stop Anesthesiologist Time Time DEBRIDEMENT SKIN AND Berry Villagran MD 02/21/22 0937 02/21/22 1105 SUBCU, LOWER EXTREMITY (WRVU 1.01) (Left: Leg) Events Date Time Event Comment 02/21/2022 0859 0937 Start 0939 AN Verify 0940 An Start Data 0948 An Induction 0949 An Intubation 0950 Anesthesia Ready 1004 Procedure Start 1043 Extubation/LMA Out Patient spont aneously ventilating; adequate tidal volumes ( >450 mL); regular respiratory rate & rhyth m; minute ventilation > 5.5L/min. Oropha rynx suctioned. LMA removed without issue to 6L/min O2 via face mask. VSS. 1044 Procedure Stop 1054 an stop data 1104 Recovery or ICU Handoff Patient care was transferred to the destination unit staff after review of the patient's medica l history, current anesthetic/surgi omid status and plan, according to the Provider Handoff Checklist. 1105 Stop Spontaneous vent ilation without issue. VSS. Full report give n to AIR BRAKE RIGGER. Name Total Midazolam 2 mg fentaNYL 100 mcg IV Lidocaine 100 mg Propofol 150 mg PHENYLephrine 640 mcg Ondansetron 4 mg Propofol INF 178.65 mg Lactated Ringers 400 mL Agents Name O2 Air N2O Sevoflurane (et) O2 Auxiliary Flowmeter 2 Blood No blood administrations on file. Lines, Drains, and Airways Type Details Placement Removal Incision 02/19/22; 0544; Left, 02/19/22 0544 by Chandra, eliazar; calf; vertical Padma Rausch RN Incision 02/19/22; 0550; Left, 02/19/22 0550 by Chandra, lateral; calf; vertical Padma Rausch RN PIV 02/19/22; 0000 (PAT, 02/19/22 0000 by [place], 0 02/24/22 1034 by OS); median cubital vein DEVAN Neumann Carolyn G, [employer] SPECIALIST (antecubital fossa), left; 18 gauge; no longer indicated, removed per policy/procedure, removed per physician, catheter/device intact; 02/24/22; 1034 Supraglottic Mask Ventilation: Not 02/21/22 0949 by Donnie, 02/21/22 1043 by Attempted (0); LMA Type: Sharmin S, SHIPMASTER Donnie , Sharmin S, iGel; LMA Size: 3; SHIPMASTER Inserted by: Sharmin Fields, SHIPMASTER Wound 02/21/22; 1005; Left, 02/21/22 1005 by Martínez, 0 02/21/22 1130 by anterior, lower; leg; DEVAN Mendoza Deb ra L, RN fasciotomy; pt came with open fasciotomy, wound was entered; 02/21/22; 1130 Wound 02/21/22; 1006; anterior, 02/21/22 1006 by Wat[place] n, 02/21/22 1032 by lower, Right; leg; DEVAN Mendoza, Kelly RN fasciotomy; open wound was entered on left leg, right side; 02/21/22; 1032 Wound 02/21/22; 1006; Left, 02/21/22 1006 by Martínez, 0 02/21/22 1130 by anterior, lower, lateral; DEVAN Mendoza Debra L, RN leg; fasciotomy; Left and Right wound fasciotomy; 02/21/22; 1130 documented in this encounter Social History Tobacco Use Types Packs/Day Years Used Date Smoking Tobacco: Every Day Cigarettes 0.5 Smokeless Tobacco: Never Alcohol Use Standard Drinks/Week Comments Yes 0 (1 standard drink = 0.6 oz pure alcoho l) occasional Sex Assigned at Date Recorded Not on file documented as of this encounter OR Notes Anesthesia Postprocedure Evaluation - Berry Villagran MD - 02/21/2022 1:31 PM EDT Department of Anesthesiology Post-procedure Note Patient: December Procedure Summary Date: 02/21/22 Room / Location: [facility] OR [address] [place] [address] MAIN OR Anesthesia Start: 936 Anesthesia Stop: 1104 Procedures: DEBRIDEMENT SKIN AND SUBCU, LOWER EXTREMITY (WRVU 1.01) (Left Leg) MODIFIER WOUND VAC (N/A ) Diagnosis: (myositis, possible NSTI) Surgeons: Gonzales Sharif MD Responsible Provider: Berry Villagran MD Anesthesia Type: general ASA Status: 3 - Emergent All Anesthesia Providers: Anesthesiologist: Berry Villagran MD SHIPMASTER: Sharmin Fields CRNA Vitals Value Taken Time BP 82/54 02/21/22 1315 Temp 36 ??C (96.8 ??F) 02/21/22 1100 Pulse 65 02/21/22 1330 Resp 18 02/21/22 1330 SpO2 95 % 02/21/22 1330 Pain Level 9 02/21/22 1214 Vitals shown include unvalidated device data. Patient Location: PACU/[facility] Level of Consciousness: Awake and Alert Pain Management: Pain Being Addressed PONV: None Cardiovascular Status: At Baseline and Hemodynamically Stable Respiratory Status: At Baseline and Room Air Postoperative Fluid Status: Intravascular EUvolemia Possible Anesthetic Complications: NONE apparent at time of evaluation Final Primary Anesthesia Type: General (The anesthetic type performed was the same as planned.) Comments: Berry Villagran MD Anesthesia Preprocedure Evaluation - Berry Villagran MD - 02/21/2022 7:52 AM EDT Pre-Anesthesia Evaluation for: December Kayden a 46 y.o. female. Procedure(s): FASCIOTOMY, LOWER LEG, ALL COMPARTMENTS (WRVU 7.82) Patient Active Problem List Diagnosis Date Noted ??? Myositis 02/19/2022 ??? NSTEMI (non-ST elevated myocardial infarction) 09/02/2021 ??? Dislocation of left shoulder joint, chronic, recurrent, with multiple surgeries. 08/02/2012 No past medical history on file. Past Surgical History: Procedure Laterality Date ??? PRO DECOMPRESS ANT/LAT+POST LEG CMPART Left 02/19/2022 FASCIOTOMY, LOWER LEG, ALL COMPARTMENTS (WRVU 7.82) performed by Valentin Mark MD at [facility] MAIN OR Social History Tobacco Use ??? Smoking status: [...] 0430 by AD Airway Assessment: Mallampati: II TM distance: >3 FB Neck ROM: full Cardiovascular Assessment: Rhythm: regular Pulmonary Assessment: unlabored breathing Dental Assessment: Misc Assessment: IV access: Peripheral line Last Filed Perioperative Cognitive Screening None Anesthesia Plan: ASA 3 emergent general, with a(n) intravenous induction 46 y.o. 79kg (BMI 30) female, who initially presented with possible necrotizing fasciitis, taken foremergent fasciotomy on 02/19, now scheduled for repeat I&D. PMH significant for NSTEMI stented x4 (Aug 2021), current smoker (1/2ppd), RAQUEL (unable to get CPAP, on 2-3L O2QHS), GERD (PPI), daily marijuana user, IDDM . Tolerated GA for prior procedure without issue, g1v w/ Mac 3. Anesthetic Plan: GA w/ LMA Standard ASA monitoring PIV access The patient was informed of the risks, benefits and alternatives of anesthesia. These risks included, but were not limited to, post-operative nausea and/or vomiting, pain, sore throat, dental/lip trauma, and other rare but serious complications such as major organ damage, awareness, severe allergic reactions, position-related nerve injuries, and need blood transfusions. All questions sought and answered. Serial Consent signed and placed in chart. Berry iVllagran MD [facility] - Other Informed Consent: Anesthetic plan and risks discussed with patient. Plan discussed with SHIPMASTER. Anesthesia Screening documented in this encounter Plan of Treatment Upcoming Encounters Date Type Specialty Care Team Description 08/22/2022 Appointment Cardiology 08/22/2022 Laboratory Appointment Lab 08/22/2022 Office Visit Cardiology Tameka Neal [facility] [address] [place] [address] (Wo rk) documented as of this encounter Visit Diagnoses Not on filedocumented in this encounter Administered Medications Inactive Administered Medications - up to 3 most recent administrations Medication Order MAR Action Action Date Dose Rate Site fentaNYL (pf) (50 mcg/mL) Given 02/21/2022 10:00 AM EDT 50 mcg multi-dose injection Intravenous, PRN, Starting on Mon02/21/22 at 0945, Until Mon02/21/22 at 1106, Anesthesia Intra-op, Routine Given 02/21/2022 9:45 AM EDT 50 mcg lactated ringers infusion New Bag 02/21/2022 9:45 AM EDT Intravenous, CONTINUOUS PRN, Starting on Mon02/21/22 at 0945, Until Mon02/21/22 at 1106, Anesthesia Intra-op lidocaine (pf) (Xylocaine) (20 mg/mL) 2% Given 02/21/2022 9:48 A M EDT 100 mg injection syringe Intravenous, PRN, Starting on Mon02/21/22 at 0948, Until Mon02/21/22 at 1106, Anesthesia Intra-op, Routine midazolam (pf) (Versed) (1 mg/mL) multi-dose Given 02/21/2022 9: 45 AM EDT 2 mg injection Intravenous, PRN, Starting on Mon02/21/22 at 0945, Until Mon02/21/22 at 1106, Anesthesia Intra-op, Routine ondansetron (pf) (Zofran) (2 mg/mL) inje ction Given 02/21/2022 10:09 AM EDT 4 mg Intravenous, PRN, Starting on Mon02/21/22 at 1009, Until Mon02/21/22 at 1106, Anesthesia Intra-op, Routine PHENYLephrine in NS (PF) (ABEL-SYNEPHRINE) Given 02/21/2022 1 0:19 AM EDT 160 mcg 0.8 mg/10 mL (80 mcg/mL) multi-dose injection Syrg Intravenous, PRN, Starting on Mon02/21/22 at 0952, Until Mon02/21/22 at 1106, Anesthesia Intra-op, Routine Given 02/21/2022 10:17 AM EDT 160 mcg Given 02/21/2022 10:07 AM EDT 80 mcg propofoL (Diprivan) (10 mg/mL) New Bag 02/21/2022 9:50 AM 50 m cg/kg/min 23.82 mL/hr infusion EDT Intravenous, CONTINUOUS PRN, Starting on Mon02/21/22 at 0950, Until Mon02/21/22 at 1106, Anesthesia Intra-op, Routine propofoL (Diprivan) 10 mg/mL bolus injection Given 9:48 AM EDT 150 mg (Anesthesia) Intravenous, PRN, Starting on Mon02/21/22 at 0949, Until Mon02/21/22 at 1106, Anesthesia Intra-op documented in this encounter Care Teams Gas Producer Relationship Specialty Start Date End Date Valentin Parekh MD PCP - General Family Medicine 08/06/[address] [place] [address] [phone] documented as of this encounter
--- OUTSIDE RECORDS SUMMARY | 2022-08-14 18:36 | XMS_ITS | Encounter Summary ---
:1975 Author Organization [facility] [place] [address] Care Team Providers Name Role Phone Lora Parekh MD Primary Care Provider Reason for Visit Reason Comments Leg Pain Auth/Cert Specialty Diagnoses / Procedures Referred By Contact Refer red To Contact Diagnoses Myositis Necrotizing Fasciitis Referral ID Status Reason Start Date Expiration Date Visits Requ ested Visits Authorized [id number] 1 1 Encounter Details Date Type Department Care Team Description 02/19/2022 Surgery Main Operating Room Lora Vivas FAS CIOTOMY, LOWER LEG, Hermelinda Santoro MD ALL COMPARTMENTS ([facility] 7.82) [facility] [place] [address] [place] [address] [phone] (Wo rk) Social History Tobacco Use Types Packs/Day Years Used Date Smoking Tobacco: Every Day Cigarettes 0.5 Smokeless Tobacco: Never Alcohol Use Standard Drinks/Week Comments Yes 0 (1 standard drink = 0.6 oz pure alcoho l) occasional Sex Assigned at Date Recorded Not on file documented as of this encounter Last Filed Vital Signs Vital Sign Reading Time Taken Comments Blood Pressure 103/66 02/19/2022 6:45 AM EDT Pulse 76 02/19/2022 6:45 AM EDT Temperature 36.6 ??C (97.9 ??F) 02/19/2022 6:16 AM EDT Respiratory Rate 22 02/19/2022 6:45 AM EDT Oxygen Saturation 100% 02/19/2022 6:45 AM EDT Inhaled Oxygen Concentration - - [...] Aracelis Berkowitz Patient Age: 46 y.o. Language: Israeli Race: White Ethnicity: Not nor Admit date: [...] of Presentation (From Dr. Vivas's H&P 02/19/22): Aracelis Berkowitz??is a 46 y.o.??female??with a PMH of CAD [...] toes. Hospital Course: Patient was admitted to [facility] from the ED on 02/19 for LLE [...] control managmeent - sutures out 02/04 (by VNA) - f/u appointment with general surgery in [...] Med & Lrg Kit 1 Product by [facility]Non-Drug; Combo Route) route 2 times daily. 1 [...] Given to Patient at Discharge: Patient Instructions [facility] Department of Acute Care Surgery Discharge Instructions [...] with the Surgery nurses. The number is [phone]. - During the night or weekends call the [facility] high reach operator at [phone] and ask to speak to the surgery resident generation engineer for general surgery. Please note: Your surgeon may not be Paleology Professor, especially during the night or on weekends, [...] hear anything, please call the clinic at [phone] to confirm or reschedule. If you need a prior authorization, please call the General Surgery Clinic nurses [phone] for prior authorizations assistance General Instructions December-for [...] in comments. Scheduling Instructions: Comments: Please evaluate December for admission to Home Health. [address] [place] [phone] (home) Date of : 1975 Inpatient DOCUMENTATION FOR VNA SERVICES (INCLUDING THOSE PATIENTS WITH MEDICARE COVERAGE REQUIRING HOME VNA SERVICES AND/OR HOSPICE SERVICES) PATIENT'S LOCATION: December [address] [place] [address] (home) Cell: Telephone Information: Pourer Metal's Name: self/patient In discussion with the attending physician, it is certified that this patient is under their care and that they, or a Nurse Practitioner,Clinical Nurse specialist or Physician Umbrella Tipper Machine who is working directly with them, had [...] program if appropriate. HOME HEALTH CARE AGENCY: [facility] ([facility] [address] [place] [address] Start of care: 02/23/22 FOR MEDICARE ONLY: [...] obtained from this patient'sPCP: Lora Parekh MD [address] [facility] [id number] All VNA agencies which cover the area of patient's residence have been reviewed, either verbally or in writing, and patient/family have chosen the home health care agency noted Questions: Disciplines Requested: Nursing Follow-Up: No future appointments. Primary Care Provider: Lora Parekh MD [phone] Follow-up Recommendations for Providers: see discharge summary [...] Fritz MD - 02/23/2022 9:28 AM EDT [facility] Department of Acute Care Surgery Discharge Instructions [...] with the Surgery nurses. The number is [phone]. - During the night or weekends call the [facility] high reach operator at [phone] and ask to speak to the surgery resident generation engineer for general surgery. Please note: Your surgeon may not be Paleology Professor, especially during the night or on weekends, [...] hear anything, please call the clinic at [phone] to confirm or reschedule. If you need a prior authorization, please call the General Surgery Clinic nurses [phone] for prior authorizations assistance documented in this [...] ejection daily. fraction), Coronary artery disease involving chickahominy indians-eastern division coronary artery of chickahominy indians-eastern division heart without angina pectoris, Hypertension, unspecified type [...] reduced ejection fraction), Coronary artery disease involving chickahominy indians-eastern division coronary artery of chickahominy indians-eastern division heart without angina pectoris, Hypertension, unspecified type [...] Epstein, DO ID Fellow Red Team Pager: [phone] ID ATTENDING I agree with assessment and recommendations above. I reviewed the data set and guided decision-making but did not re-examine the patient today. Jamee Keating MD Page [phone] All of this 15 minute visit were spent on the floor/unit in coordination of care for the patient, regarding treatment of infection as detailed in note above. Judy Eduardo Cayden - 02/24/2022 9:45 AM EDTSummary: Jeremy AD packet reviewed- not completed AD -IP/RS Reviewed AD for Jeremy w. Pt. She declines making decision at this time. Son is just 19 and mother too old w/ health challenges. She will review and bring to follow up appt in a month. Pt wantsto discuss w/ son before assignment. NICAT Josh Tuttle MD - 02/24/2022 8:33 AM EDT ID/MECHANISM OF INJURY: December??is a 46 y.o.??female??with a history of [...] pt need to f-u with surgeon or STOCK DRIVER (please indicate reason if attending provider): Yes, STOCK DRIVER follow up in 4wk How soon should [...] Knowledge Exchangeat Bedside, Bed Alarm Set Elke Trinh, PT - 02/23/2022 2:12 PM EDT Physical [...] 1.01) performed by Edgar Sharif MD at [facility] OR ??? PRO DECOMPRESS ANT/LAT+POST LEG CMPART Left 02/19/2022 FASCIOTOMY, LOWER LEG, ALL COMPARTMENTS (WRVU 7.82) performed by Lora Vivas MD at [facility] OR Active Non-Hospital Problems Diagnosis [...] drainage; all other visible skin intact; see python architect for details Musculoskeletal: ROM: WFL, L LE [...] from adult son who will be home 24/7. Proper guarding techniques for stair negotiation were [...] in this evaluation. Time IN / OUT: 2549-0172 Total Minutes, Physical Therapy: 47 Billing Code: Evaluation Elke Trinh, PT Pager: [phone] Physical Therapy Inpatient Rehabilitation Department Lora Vivas [...] BID and 1200 nightly, oxycodone 10mg q6, [id number] q3 prn, flexeril 10mg TID prn, dextromethorphan [...] Fritz MD 02/23/2022 Acute Care Surgery Pager [phone] Attending Addendum I have seen and examined the patient and reviewed the history documented above and I agree with the details as written. I have reviewed the laboratory data and viewed the pertinent imaging. The assessment and plan were formulated in discussion with me and I agree with them as documented. Jose Alfredo Vivas MD Jay Jay Villalta, OT - 02/23/2022 1:05 PM EDT Occupational [...] 1.01) performed by Edgar Sharif MD at [facility] OR ??? PRO DECOMPRESS ANT/LAT+POST LEG CMPART Left 02/19/2022 FASCIOTOMY, LOWER LEG, ALL COMPARTMENTS (WRVU 7.82) performed by Lora Vivas MD at [facility] OR Social History: Patient lives [...] & Perception: ?? WNL/WFL ?? corrective lenses time study observer Communication: WFL Range of motion, strength, coordination: [...] Vitals: SpO2 93% Heart Rate 80's Pain: 06/11 LLE Skin: dressing to LLE c/d/i Education: [...] only Total Minutes, Occupational Therapy: 55 (eval 7425-2143) OT Evaluation Code Rationale: ?? Diagnosis & [...] instrument andmeasurable assessment of functional outcome. Pager: [phone] Jay Jay Villalta, CALLY 02/23/2022 Occupational Therapy Rehabilitation Department Zaida Yen, QA INTERNSHIP - 02/23/2022 9:32 AM EDTSummary: she should not use and SGLT-2 going [...] to be set aside. She states her chief clinical officer is the person that put her on [...] inpatient unit including nursing and primary team. NICAT Estrella Crowell RN - 02/23/2022 2:48 AM [...] on, hands on Surveillance [continuous indirect monitoring]: Masimo, NKE, bed alarm Cyndi Machado RN - 02/22/2022 [...] on with ADL's Surveillance [continuous indirect monitoring]: Masgregoria, Purposeful Rounding, Nurse Knowledge Exchangeat Bedside, Bed [...] and distal pulses Labs: Recent Labs 02/21/22 034 WBC 8.6 HGB 12.1 HCT 37.5 PLATELET 260 Recent Labs 02/21/22 0341 02/20/22 0609 NA 137 141 K 3.9 3.8 CL 106 109* CO2 BUN 11 12 CREATININE 0.66* 0.57* GLUCOSE [...] as documented. Jose Alfredo Vivas MD Alka Schaffer, QA INTERNSHIP - 02/22/2022 9:46 AM EDT Follow Up [...] ratio for each meal Alka Schaffer APRN [facility] Endocrinology Diabetes Management Pager [phone] 20 minutes of this 35 minute visit [...] ADLs]:?Hands on??with ADL's ?? Surveillance [continuous indirect monitoring]:?Denys Cortez, Nurse Knowledge Exchange Cyndi Machado RN - 02/21/2022 7:59 PM EDT OUTCOME EVALUATION NOTE: OUTCOME SUMMARY: Pt to OR today for washout and wound closure. Pt hypotensive but close to baseline. Pain uncontrolled, two one time doses of IV pain meds given, refer to nov. O2 sats stable on RA. Patient DTV, [...] on with ADL's Surveillance [continuous indirect monitoring]: Denys Cortez, Nurse Knowledge Exchangeat Bedside, Bed Alarm Set [...] distal pulses Labs: Recent Labs 02/21/22 0341 02/19/22 0345 WBC 8.6 10.5* HGB 12.1 14.2 HCT 37.5 42.7 PLATELET 260 311 PT -- 11.5 INR -- 1.0 PTT -- 31 Recent Labs 02/21/22 0341 02/20/22 0609 02/19/22 0345 NA 137 141 142 K 3.9 3.8 3.1* CL 106 109* 103 CO2 22 23 27 BUN 11 12 25* CREATININE 0.66* 0.57* [...] planned operation. Kai Delcid MD 02/21/2022 Pager [phone] General Surgery Pager [phone] Francine Khoury RN - 02/21/2022 6:32 AM [...] indirect monitoring]:?Diego Purposeful Rounding, Nurse Knowledge Exchange Estrella Crowell [...] hands on Surveillance [continuous indirect monitoring]: JAYLIN Cortez, bed alarm Josh Tuttle MD - 02/20/2022 [...] ADL's ?? Surveillance [continuous indirect monitoring]: Denys Cortez, Nurse Knowledge Exchange Marielos Amador RN - [...] on with ADL's Surveillance [continuous indirect monitoring]: Denys Cortez, Nurse Knowledge Exchange Josh Tuttle MD - [...] or tingling. Patient oriented to room, call gonsales, IS. RN will monitor patient. Ayush Acosta RN - 02/19/2022 7:26 AM EDT 0616 Pt arrived to PACU from OR on hospital bed, attached to monitor, receiving 6L via SFM, report received from surgery and anesthesia team. 0700 Handoff report given to Annetta HARTMAN. Qi Cm RN - 02/19/2022 7:23 AM EDT 0700 report received from laureen HARTMAN. 0700- 0850 pt complaining of 9/10 pain [...] Vivas MD - 02/19/2022 3:24 AM EDT [facility] Department of Surgery Admission H&P CC: Left calf pain HPI: Aracelis Berkowitz is a 46 y.o. female [...] Med & Lrg Kit 1 Product by [facility]Non-Drug; Combo Route) route 2 times daily. 1 [...] ??? insulin needles, disposable, 32 gauge x /32 Needle Inject 1 each subcutaneously daily. Indications: [...] patient on 02/19/2022. History of Present Illness Aracelis Kayden is a 46 y.o. female with history of diabetes with neuropathy, hypertension, PTSD who presents to the Emergency Department as a transfer from [facility] for evaluation of leg pain. Historyis from the patient at bedside and chart review. Patient reports 3 days of progressively worsening left lower extremity pain and acsending numbness. She was seen at [facility], where lactate was normal and white blood cell count was 10. CT scan showed findings concerning for necrotizing fasciitis. She was transferred to [facility] for evaluation by general surgery. On my [...] 4 mg (4 mg Intravenous Given 02/19/22 8248) HYDROmorphone (Dilaudid) (0.5 mg/0.5 mL) injection syringe 1 mg (1 mg Intravenous Given 02/19/22 0436) Film Library- Storage Only CT Lower Extremity [...] general surgery Chica Hinson MD Resident 02/19/22 8466 Associated attestation - Billie Rubio MD - [...] for follow-up Rn & PT [facility], Enrique Gaxiola [facility] [id number] Transportation: Family Functional status prior to admission: [...] her thigh, so she p resented to [facility] on 02/18/22. CT LLE showed subcutaneous fat stranding of the posterior calf suggesting cellulitis or mild contusion, but unremarkable intramuscular compartment with nohematoma and no osseous pathology. No blood cultures were collected on my verbal discussion with their Microbiology lab today. Given concern for possible necrotizing skin and soft tissue infection, shewas transferred to [facility] under General Surgery service. On arrival here, [...] conditions Social History: She currently lives in [facility] with her children and pet cat/dog. [...] Epstein, DO ID Fellow Red Team Pager: [phone] Infectious Diseases Attending I saw the patient [...] Keating MD Professor, Department of Medicine Page [phone] 55 minutes of this 80 minute visit [...] indicated. Anticipated Date of Discharge: 02/23/2022 Rand Franz, DEVAN, BSN Case Management Op Note - Edgar Sharif MD - 02/21/2022 10:51 AM EDT [facility] Operative Note Patient Name: December : [id number] MR#: [id number] Case Date: 02/21/2022 Surgeon: Surgeon(s) and Role: [...] management and to provide a review of shelter diabetes care. Diabetes History: Aracelis Berkowitz has [...] 5 gm carb ratio for each meal ops analyst diabetes care: Medications - Outpatient treatment regimen recommendations pending based on the hospital course. Monitoring - continue BG tid ac & hs Diet - low fat/low carb diet Exercise - weight-bearing exercise 30 min/day, as tolerated Thank you for allowing us to provide care for your patient Alka Schaffer APRN [facility] Endocrinology Diabetes Management Pager [phone] 70 minutes of this 80 minute visit [...] COVID test: Lab Results Component Value Date [id number] Not Detected 02/19/2022 Past medical History: No [...] walker at home) Home Address confirmed as: [address] [place] [address] Social & Family Supports: All names listed [...] MEDICAID [place] Prescription Coverage: Yes Preferred Pharmacy: [id number] [place], [place] - [address] [facility] [address] [facility] [address] [place], [place] - [address] [facility] [address] [facility] [address] [facility] [address] [employer] [address] - [place], [place] - [address] [facility] [address] [place] Status: Patient is a : Primary Care Provider: Lora Parekh MD [phone] Patient/Caregiver Goals of Treatment: recovery post surgery Potential Needs for Transition of Care: home health care (patient uses O2 at night, has concentration at home, [employer] is the vendor.) Agency Referrals: This is resumption of care referral, upon completion of hospital course patient is anticipated to resume services with [facility] PHONE: [phone] FAX: [phone] RS please submit referral along with all [...] planning. Office of Care Management Surgery Team Study Hall Supervisor [email or web address] Pager #[phone] Op Note - Lora Vivas MD - 02/19/2022 6:04 AM EDT [facility] Operative Note Patient Name: December : [id number] MR#: [id number] Case Date: 02/19/2022 Surgeon: Surgeon(s) and Role: [...] 08/22/2022 Office Visit Cardiology Tameka Neal MD [facility] [address] [place] [address] (Wo rk) Scheduled Referrals Name [...] the results section. POCT GLUCOSE Routine 02/21/2022 9:13 AM Results [...] 5:08 AM myositis. po ssible [facility] COM[facility] FASCIOTOMY, LOWER LEG, Routine [...] (ABNORMAL) POCT Glucose (02/24/2022 10:24 AM EDT) athologist Signature POC Glucose 218 (H) 65 - 199 [address] JOSE DAVID mg/dL [facility] Comment: Supplemental ranges: <140 mg/dL before meals <180 mg/dL all other times of the day Specimen Anatomical Collection Method Collection Time Receive d Time (Source) Location / / Volume Laterality Blood 02/24/2022 10:24 02/24/2022 AM EDT 10:24 AM EDT Lora Vivas MD POINT OF CARE TEST ORDERABLE S Performing Organization Address City/[facility]/ZIP [place] [address] (ABNORMAL) POCT Glucose (02/24/2022 7:36 AM EDT) athologist Signature POC Glucose 247 (H) 65 - 199 [facility] JOSE DAVID mg/dL [facility] Comment: Supplemental ranges: <140 mg/dL before meals <180 mg/dL all other times of the day Specimen Anatomical Collection Method Collection Time Receive d Time (Source) Location / / Volume Laterality Blood 02/24/2022 7:36 AM 2 7:36 EDT AM EDT Lora Vivas MD POINT OF CARE TEST ORDERABLE S Performing Organization Address City/[facility]/ZIP [place] [address] POCT Glucose (02/24/2022 4:23 AM EDT) athologist Signature POC Glucose 116 65 - 199 [address] JOSE DAVID mg/dL [facility] Comment: Supplemental ranges: <140 mg/dL before meals <180 mg/dL all other times of the day Specimen Anatomical Collection Method Collection Time Receive d Time (Source) Location / / Volume Laterality Blood 02/24/2022 4:23 AM 2 4:23 EDT AM EDT Lora Vivas MD POINT OF CARE TEST ORDERABLE S Performing Organization Address City/State/ZIP [place] [address] POCT Glucose (02/23/2022 11:06 PM EDT) athologist Signature POC Glucose 126 65 - 199 [address] [place]SE DAVID mg/dL [facility] Comment: Supplemental ranges: <140 mg/dL before meals <180 mg/dL all other times of the day Specimen Anatomical Collection Method Collection Time Receive d Time (Source) Location / / Volume Laterality Blood 02/23/2022 11:06 02/23/2022 PM EDT 11:06 PM EDT Lora Vivas MD POINT OF CARE TEST ORDERABLE S Performing Organization Address City/State/ZIP [place] [address] POCT Glucose (02/23/2022 8:05 PM EDT) athologist Signature POC Glucose 168 65 - 199 [place] [place] mg/dL [facility] Comment: Supplemental ranges: <140 mg/dL before meals <180 mg/dL all other times of the day Specimen Anatomical Collection Method Collection Time Receive d Time (Source) Location / / Volume Laterality Blood 02/23/2022 8:05 PM 2 8:05 EDT PM EDT Lora Vivas MD POINT OF CARE TEST ORDERABLE S Performing Organization Address City/State/ZIP [place] [address] (ABNORMAL) POCT Glucose (02/23/2022 5:32 PM EDT) athologist Signature POC Glucose 209 (H) 65 - 199 [address] [place] DAVID mg/dL [facility] Comment: Supplemental ranges: <140 mg/dL before meals <180 mg/dL all other times of the day Specimen Anatomical Collection Method Collection Time Receive d Time (Source) Location / / Volume Laterality Blood 02/23/2022 5:32 PM 2 5:32 EDT PM EDT Lora Vivas MD POINT OF CARE TEST ORDERABLE S Performing Organization Address City/State/[place] [address] POCT Glucose (02/23/2022 12:15 PM EDT) athologist Signature POC Glucose 157 65 - 199 [address] JOSE DAVID mg/dL [facility] Comment: Supplemental ranges: <140 mg/dL before meals <180 mg/dL all other times of the day Specimen Anatomical Collection Method Collection Time Receive d Time (Source) Location / / Volume Laterality Blood 02/23/2022 12:15 02/23/2022 PM EDT 12:15 PM EDT Lora Vivas MD POINT OF CARE TEST ORDERABLE S Performing Organization Address City/State/ZIP [place] [address] POCT Glucose (02/23/2022 7:37 AM EDT) athologist Signature POC Glucose 164 65 - 199 [address] WHE[place] DAVID mg/dL [facility] Comment: Supplemental ranges: <140 mg/dL before meals <180 mg/dL all other times of the day Specimen Anatomical Collection Method Collection Time Receive d Time (Source) Location / / Volume Laterality Blood 02/23/2022 7:37 AM 2 7:37 EDT AM EDT Lora Vivas MD POINT OF CARE TEST ORDERABLE S Performing Organization Address City/State/[place] [address] (ABNORMAL) POCT Glucose (02/23/2022 3:09 AM EDT) athologist Signature POC Glucose 238 (H) 65 - 199 [address] JOSE DAVID mg/dL [facility] Comment: Supplemental ranges: <140 mg/dL before meals <180 mg/dL all other times of the day Specimen Anatomical Collection Method Collection Time Receive d Time (Source) Location / / Volume Laterality Blood 02/23/2022 3:09 AM 2 3:09 EDT AM EDT Lora Vivas MD POINT OF CARE TEST ORDERABLE S Performing Organization Address City/State/[place] [address] (ABNORMAL) POCT Glucose (02/22/2022 11:10 PM EDT) athologist Signature POC Glucose 201 (H) 65 - 199 [facility] JOSE DAVID mg/dL [facility] Comment: Supplemental ranges: <140 mg/dL before meals <180 mg/dL all other times of the day Specimen Anatomical Collection Method Collection Time Receive d Time (Source) Location / / Volume Laterality Blood 02/22/2022 11:10 02/22/2022 PM EDT 11:10 PM EDT Lora Vivas MD POINT OF CARE TEST ORDERABLE S Performing Organization Address City/State/ZIP Code Phon e Number [address] (ABNORMAL) POCT Glucose (02/22/2022 7:32 PM EDT) athologist Signature POC Glucose 254 (H) 65 - 199 [facility]/dL [facility] Comment: Supplemental ranges: <140 mg/dL before meals <180 mg/dL all other times of the day Specimen Anatomical Collection Method Collection Time Receive d Time (Source) Location / / Volume Laterality Blood 02/22/2022 7:32 PM 2 7:32 EDT PM EDT Lora Vivas MD POINT OF CARE TEST ORDERABLE S Performing Organization Address City/State/ZIP Code Phon e Number [address] POCT Glucose (02/22/2022 4:11 PM EDT) athologist Signature POC Glucose 187 65 - 199 [place] JOSE DAVID mg/dL [facility] Comment: Supplemental ranges: <140 mg/dL before meals <180 mg/dL all other times of the day Specimen Anatomical Collection Method Collection Time Receive d Time (Source) Location / / Volume Laterality Blood 02/22/2022 4:11 PM 2 4:11 EDT PM EDT Lora Vivas MD POINT OF CARE TEST ORDERABLE S Performing Organization Address City/State/ZIP Code Phon e Number [address] (ABNORMAL) POCT Glucose (02/22/2022 12:11 PM EDT) athologist Signature POC Glucose 287 (H) 65 - 199 [facility] mg/dL [facility] Comment: Supplemental ranges: <140 mg/dL before meals <180 mg/dL all other times of the day Specimen Anatomical Collection Method Collection Time Receive d Time (Source) Location / / Volume Laterality Blood 02/22/2022 12:11 02/22/2022 PM EDT 12:11 PM EDT Lora Vivas MD POINT OF CARE TEST ORDERABLE S Performing Organization Address City/State/ZIP Code Phon e Number [address] POCT Glucose (02/22/2022 7:53 AM EDT) athologist Signature POC Glucose 170 65 - 199 [facility] [place] [facility] Comment: Supplemental ranges: <140 mg/dL before meals <180 mg/dL all other times of the day Specimen Anatomical Collection Method Collection Time Receive d Time (Source) Location / / Volume Laterality Blood 02/22/2022 7:53 AM 7:53 EDT AM EDT Lora Vivas MD POINT OF CARE TEST ORDERABLE S Performing Organization Address City/State/ZIP [place] [address] COVID-19 PCR (02/22/2022 7:49 AM EDT) [facility] Method Time Signature SARS-CoV-2 Not Detected Not Detected [place]DA RNA [facility] Comment: This result should be interpreted [...] diagnosis of COVID-19 is performed using the Joome S-CoV-2 Assay as authorized by the FDA Emergency Use Authorization (EUA). This EUA assay is intended for In-vitro Diagnostic (IVD) use with respiratory sp ecimens such as nasopharyngeal swabs collected from individuals during the ac tribe phase of infection. This assay is performed based on the instructions for use provided by [employer] and additional guidance provided by CDC and FDA. Testing is performed in the [facility] Laboratory within the Department of Pathology and Laboratory Medicine at [facility], certified under the Clinical Laboratory Improvement [...] clinical management guidance information are available at th e CDC Coronavirus Disease 2019 (COVID-19) webpage under Information fo r Healthcare Professionals (https://www.cdc.gov/coronavirus/2019-nc ov/hcp/index.html) Additional information about this and ot her EUA tests can be found in provider and patient fact sheets at the following FDA website: https://www.fda.gov/medical-devices/hfgvjpwaczf-klbdoyg-5473-ylbvi-29-twfmahwci- hxn-rrapxrcszacupg-uymbqni-devices/vwjcs-eaecdletaok-amch SARS-Cov-2 RNA Source STOCK DRIVER Swab [facility] Specimen (Source) Anatomical Collection Method Collection Time Re ceived Time Location / / Volume Laterality Nasopharyngeal Swab 02/22/2022 7:49 02/22 AM EDT 11:54 AM EDT Comment: Symptoms->Surveillance Resulting Agency Comment Spec In Lab Johan Kessler MD MICROBIOLOGY - GENERAL ORDER ERIN Performing Organization Address City/State/ZIP Code Phon e Number [address] (ABNORMAL) POCT Glucose (02/22/2022 3:38 AM EDT) athologist Signature POC Glucose 224 (H) 65 - 199 [facility] Comment: Supplemental ranges: <140 mg/dL before meals <180 mg/dL all other times of the day Specimen Anatomical Collection Method Collection Time Receive d Time (Source) Location / / Volume Laterality Blood 02/22/2022 3:38 AM 3:38 EDT AM EDT Lora Vivas MD POINT OF CARE TEST ORDERABLE S Performing Organization Address City/[facility]/ZIP Code Phon e Number [address] POCT Glucose (02/21/2022 11:28 PM EDT) athologist Signature POC Glucose 164 65 - 199 [facility] Comment: Supplemental ranges: <140 mg/dL before meals <180 mg/dL all other times of the day Specimen Anatomical Collection Method Collection Time Receive d Time (Source) Location / / Volume Laterality Blood 02/21/2022 11:28 02/21/2022 PM EDT 11:28 PM EDT Lora Vivas MD POINT OF CARE TEST ORDERABLE S Performing Organization Address City/State/ZIP [place] [address] POCT Glucose (02/21/2022 8:15 PM EDT) athologist Signature POC Glucose 151 65 - 199 [place] mg/dL [facility] Comment: Supplemental ranges: <140 mg/dL before meals <180 mg/dL all other times of the day Specimen Anatomical Collection Method Collection Time Receive d Time (Source) Location / / Volume Laterality Blood 02/21/2022 8:15 PM 2 8:15 EDT PM EDT Lora Vivas MD POINT OF CARE TEST ORDERABLE S Performing Organization Address City/State/ZIP [place] [address] POCT Glucose (02/21/2022 6:38 PM EDT) athologist Signature POC Glucose 118 65 - 199 [place] mg/dL [facility] Comment: Supplemental ranges: <140 mg/dL before meals <180 mg/dL all other times of the day Specimen Anatomical Collection Method Collection Time Receive d Time (Source) Location / / Volume Laterality Blood 02/21/2022 6:38 PM 2 6:38 EDT PM EDT Lora Vivas MD POINT OF CARE TEST ORDERABLE S Performing Organization Address City/State/ZIP [place] [address] POCT Glucose (02/21/2022 4:31 PM EDT) athologist Signature POC Glucose 77 65 - 199 [place] mg/dL [facility] Comment: Supplemental ranges: <140 mg/dL before meals <180 mg/dL all other times of the day Specimen Anatomical Collection Method Collection Time Receive d Time (Source) Location / / Volume Laterality Blood 02/21/2022 4:31 PM 2 4:31 EDT PM EDT Johan Kessler MD POINT OF CARE TEST ORDERABLE S Performing Organization Address City/State/ZIP [place] [address] POCT Glucose (02/21/2022 11:33 AM EDT) athologist Signature POC Glucose 116 65 - 199 [facility] mg/dL [facility] Comment: Supplemental ranges: <140 mg/dL before meals <180 mg/dL all other times of the day Specimen Anatomical Collection Method Collection Time Receive d Time (Source) Location / / Volume Laterality Blood 02/21/2022 11:33 02/21/2022 AM EDT 11:33 AM EDT Johan Kessler MD POINT OF CARE TEST ORDERABLE S Performing Organization Address [facility] [place] [address] Gold Tube HOLD (02/21/2022 11:00 AM EDT) athologist Signature Gold Hold Sample in [facility] LABORATORY Specimen Anatomical Collection Method Collection Time Receive d Time (Source) Location / / Volume Laterality Blood No Charge / 02/21/2022 11:00 02/21/2022 Unknown AM EDT 11:12 AM EDT Jorge Luis Hdz MD CHEMISTRY ORDERABLES Performing Organization Address City/[facility]/ZIP [place] [address] Gold Tube HOLD (02/21/2022 11:00 AM EDT) athologist Signature Gold Hold Sample in [facility] LABORATORY Specimen Anatomical Collection Method Collection Time Receive d Time (Source) Location / / Volume Laterality Blood No Charge / 02/21/2022 11:00 02/21/2022 Unknown AM EDT 11:12 AM EDT Jorge Luis Hdz MD CHEMISTRY ORDERABLES Performing Organization Address City/[facility]/ZIP [facility] [place] [address] Surgical Pathology Report (02/21/2022 10:12 AM EDT) Component Value Ref Test Analysis Performed At [facility] gist Range Method Time Signature Surgical [id number] ? Location: 3WST; 0318; A [facility] Report The signing pathologist has (i) [...] Menezes Verified: ??02/24/2022 16:17 ??Pathologist Performed at: ??-[facility] Dept. of Pathology, [place], [place] SPECIMEN(S) SUBMITTED A - Left lower leg, deep compartment muscle CLINICAL INFORMATION [NOT PROVIDED] see ??[id number] as well. SPECIMEN PROCESSING A - Labeled/Fixative: [...] MD PATHOLOGY/CYTOLOGY ORDERABLE S Performing Organization Address City/[facility]/ZIP Code Phon e Number [address] Specimen to Pathology (02/21/2022 10:12 AM EDT) Specimen Anatomical Collection Method Collection Time Receive d Time (Source) Location / / Volume Laterality AP Specimen 02/21/2022 10:12 02/21/2022 AM EDT 10:12 AM EDT Narrative [facility] - 02/21/2022 10:12 AM EDT Specimen requisition ordered. ??Separate Pathology report to follow Johan Kessler MD PATHOLOGY/CYTOLOGY ORDERABLE S Performing Organization Address City/[facility]/ZIP Code Phon e Number [address] POCT Glucose (02/21/2022 9:13 AM EDT) athologist Signature POC Glucose 121 65 - 199 [facility] mg/dL [facility] Comment: Supplemental ranges: <140 mg/dL before meals <180 mg/dL all other times of the day Specimen Anatomical Collection Method Collection Time Receive d Time (Source) Location / / Volume Laterality Blood 02/21/2022 9:13 AM 2 9:13 EDT AM EDT Authorizing Provider Result Mor Kessler MD POINT OF CARE TEST ORDERABLE S Performing Organization Address City/State/ZIP Code Phon e Number [address] POCT Glucose (02/21/2022 5:11 AM EDT) athologist Signature POC Glucose 194 65 - 199 [facility]dL [facility] Comment: Supplemental ranges: <140 mg/dL before meals <180 mg/dL all other times of the day Specimen Anatomical Collection Method Collection Time Receive d Time (Source) Location / / Volume Laterality Blood 02/21/2022 5:11 AM 2 5:11 EDT AM EDT Authorizing Provider Result Mor Kessler MD POINT OF CARE TEST ORDERABLE S Performing Organization Address City/State/ZIP Code Phon e Number [address] Hemoglobin A1c (02/21/2022 3:41 AM EDT) athologist Signature Hemoglobin A1C 5.6 4.3 - 5.6 [facility] Comment: Reference Range: 4.3 [...] Mellitus, Diabetes Care 2013; 36: Suppl. 1, B67-47 Est Avg Gluc 114 mg/dL [facility] Comment: eAG equivalents for HbA1c percentages: HbA1c(%) ?eAG(mg/dL) 6.0 ?126 6.5 ?140 7.0 ?154 7.5 ?169 8.0 ?183 8.5 ?197 9.0 ?212 9.5 ?226 10.0 ? 240 Limitations: The eAG calculation has not been validated on women, individuals below 18 years old and above 70 years old, and individuals with hemoglobinopathies. Additional resources are available on [facility] ADA website. Arnel TSE, Louis J, Anthony R, et al. ??Tr anslating the A1C assay into estimated average glucose values. ??Diabetes Care 2008:31(8):7012-4300. Specimen Anatomical Collection Method Collection Time Receive d Time (Source) Location / / Volume Laterality Blood Venous Draw / 02/21/2022 3:41 AM 02/22/20 22 Unknown EDT 10:02 AM EDT Resulting Agency Comment Spec In Lab Alka Schaffer QA [employer] CHEMISTRY ORDERABLES Performing Organization Address City/State/[place] [address] (ABNORMAL) Differential, Automated (02/21/2022 3:41 AM EDT) [facility] Method Time Signature Neutrophils % 51.7 % [facility] Neutr Abs (ANC) 4.44 1.70 - [facility] 6.10 [facility] x10(3)/[facility] LABORATORY Lymphocytes % 30.7 % [facility] Lymphocytes Abs 2.6 0.9 - 3.2 [facility] x10(3)/[facility] LABORATORY Monocytes % 9.2 % [facility] Monocyte Abs 0.8 0.3 - 0.9 [facility] x10(3)/[facility] LABORATORY Eosinophils % 7.7 % [facility] Eosinophils Abs 0.7 (H) 0.0 - 0.4 [facility] x10(3)/[facility] LABORATORY Basophils % 0.5 % [facility] Basophils Abs 0.0 0.0 - 0.1 [facility] x10(3)/[facility] LABORATORY Immature Gran % 0.20 % [facility] Comment: Immature granulocytes(IG's)percentage an d absolute count will include metamyelocytes, myelocytes, and promyelo cytes. Blood smears from CBCs yielding IG's will be scanned manually for concor dance. If this scan disagrees with the automated IG or if promyelocytes are not ed, a manual differential will be performed. Anaya Gran Abs 0.02 0.00 - 0.04 x10(3)/[facility] MAR Y [facility] Specimen Anatomical Collection Method Collection Time Receive d Time (Source) Location / / Volume Laterality Blood 02/21/2022 3:41 AM 3:51 EDT AM EDT Resulting Agency Comment Spec In Lab Jorge Luis Hdz MD HEMATOLOGY ORDERABLES Performing Organization Address City/State/[place] [address] (ABNORMAL) Hemogram (02/21/2022 3:41 AM EDT) Analysis Performed At Patho logist Time Signature WBC 8.6 4.0 - 9.5 [facility] x10(3)/[facility] LABORATORY RBC 4.07 4.00 - [facility] 5.21 [facility] x10(6)/[facility] LABORATORY Hemoglobin 12.1 11.7 - [facility] 15.5 g/dL [facility] Hematocrit 37.5 35.7 [facility] 45.8 % [facility] MCV 92.1 82.6 [facility] 94[facility]4 [facility] LABORATORY MCH 29.7 27.1 - [place] [facility] 32.0 pg [facility] MCHC 32.3 31.7 - [place] [facility] 35.0 g/dL [facility] Platelets 260 145 - 357 [place] x10(3)/[facility] LABORATORY RDWSD 49.5 (H) 37.0 - [place] [facility] 46.0 [facility] LABORATORY RDWCV 14.6 (H) 11.5 - [facility] JO[facility] DAVID 14.1 % [facility] MPV 10.4 7.6 - 12.9 [place] [facility] LABORATORY nRBC % Auto 0.0 % [facility] nRBC Abs Auto 0.000 0.000 - [place] [facility] 0.000 [facility] x10(3)/[facility] LABORATORY Specimen Anatomical Collection Method Collection Time Receive d Time (Source) Location / / Volume Laterality Blood 02/21/2022 3:41 AM 2 3:51 EDT AM EDT Resulting Agency Comment Spec In Lab Jorge Luis Hdz MD HEMATOLOGY ORDERABLES Performing Organization Address City/State/ZIP Code Phon e Number [address] Phosphorus (02/21/2022 3:41 AM EDT) P athologist Signature Phosphorus 2.7 2.5 - 4.5 [facility] mg/dL [facility] Specimen Anatomical Collection Method Collection Time Receive d Time (Source) Location / / Volume Laterality Blood 02/21/2022 3:41 AM 2 3:51 EDT AM EDT Resulting Agency Comment Spec In Lab Johan Kessler MD CHEMISTRY ORDERABLES Performing Organization Address City/State/ZIP Code Phon e Number [address] Magnesium (02/21/2022 3:41 AM EDT) P athologist Signature Magnesium 0.92 0.69 - 1.07 [facility] mmol/L [facility] Specimen Anatomical Collection Method Collection Time Receive d Time (Source) Location / / Volume Laterality Blood 02/21/2022 3:41 AM 2 3:51 EDT AM EDT Resulting Agency Comment Spec In Lab Johan Kessler MD CHEMISTRY ORDERABLES Performing Organization Address City/State/[place] [address] (ABNORMAL) Basic Metabolic Panel (non-fasting) (02/21/2022 3:41 AM EDT) P athologist Signature Glucose Lvl 326 (H) 65 - 199 [facility] mg/dL [facility] Comment: Diabetes: >=200 mg/dL plus symp toms BUN 11 8 - 18 mg/dL [facility] Creatinine 0.66 (L) 0.70 - 1.20 mg/dL [facility] Sodium 137 135 - 145 mmol/L [facility] Potassium 3.9 3.5 - 5.0 mmol/L [facility] Comment: Please note: ??Patients with WBC >100,00 0 may have falsely elevated Potassium levels. ??For accurate Potassium quantif ication in these patients send serum separator tube (gold top) for subsequent determinations. ??Contact the Clinical Chemistry Laboratory if there are any qu estions. Chloride 106 98 - 107 mmol/L [facility] CO2 22 22 - 31 mmol/L [facility] Anion Gap 9 5 - 15 mmol/L [facility] Calcium 8.3 (L) 8.5 - 10.5 mg/dL [facility] Estimated GFR 106 >=60 mL/min/1.73 m?? [facility] Comment: This patient? s estimated glomerular [...] Organization Address City/State/ZIP [place] [address] (ABNORMAL) POCT Glucose (02/21/2022 3:11 AM EDT) athologist Signature POC Glucose 318 (H) 65 - 199 [place] [place] mg/dL [facility] Comment: Supplemental ranges: <140 mg/dL before meals <180 mg/dL all other times of the day Specimen Anatomical Collection Method Collection Time Receive d Time (Source) Location / / Volume Laterality Blood 02/21/2022 3:11 AM 2 3:11 EDT AM EDT Johan Kessler MD POINT OF CARE TEST ORDERABLE S Performing Organization Address City/[facility]/ZIP [place] [address] (ABNORMAL) POCT Glucose (02/21/2022 3:09 AM EDT) athologist Signature POC Glucose 319 (H) 65 - 199 [place] mg/dL [facility] Comment: Supplemental ranges: <140 mg/dL before meals <180 mg/dL all other times of the day Specimen Anatomical Collection Method Collection Time Receive d Time (Source) Location / / Volume Laterality Blood 02/21/2022 3:09 AM 2 3:09 EDT AM EDT Johan Kessler MD POINT OF CARE TEST ORDERABLE S Performing Organization Address City/State/ZIP [place] [address] (ABNORMAL) POCT Glucose (02/20/2022 11:56 PM EDT) athologist Signature POC Glucose 245 (H) 65 - 199 [place] mg/dL [facility] Comment: Supplemental ranges: <140 mg/dL before meals <180 mg/dL all other times of the day Specimen Anatomical Collection Method Collection Time Receive d Time (Source) Location / / Volume Laterality Blood 02/20/2022 11:56 02/20/2022 PM EDT 11:56 PM EDT Johan Kessler MD POINT OF CARE TEST ORDERABLE S Performing Organization Address City/State/ZIP [place] [address] POCT Glucose (02/20/2022 8:22 PM EDT) athologist Signature POC Glucose 191 65 - 199 [place] mg/dL [facility] Comment: Supplemental ranges: <140 mg/dL before meals <180 mg/dL all other times of the day Specimen Anatomical Collection Method Collection Time Receive d Time (Source) Location / / Volume Laterality Blood 02/20/2022 8:22 PM 2 8:22 EDT PM EDT Johan Kessler MD POINT OF CARE TEST ORDERABLE S Performing Organization Address City/State/ZIP [place] [address] (ABNORMAL) POCT Glucose (02/20/2022 6:04 PM EDT) athologist Signature POC Glucose 240 (H) 65 - 199 [place] mg/dL [facility] Comment: Supplemental ranges: <140 mg/dL before meals <180 mg/dL all other times of the day Specimen Anatomical Collection Method Collection Time Receive d Time (Source) Location / / Volume Laterality Blood 02/20/2022 6:04 PM 2 6:04 EDT PM EDT Johan Kessler MD POINT OF CARE TEST ORDERABLE S Performing Organization Address City/State/ZIP [place] [address] (ABNORMAL) POCT Glucose (02/20/2022 4:11 PM EDT) athologist Signature POC Glucose 270 (H) 65 - 199 [place] mg/dL [facility] Comment: Supplemental ranges: <140 mg/dL before meals <180 mg/dL all other times of the day Specimen Anatomical Collection Method Collection Time Receive d Time (Source) Location / / Volume Laterality Blood 02/20/2022 4:11 PM 2 4:11 EDT PM EDT Johan Kessler MD POINT OF CARE TEST ORDERABLE S Performing Organization Address City/State/ZIP Code Phon e Number [address] POCT Glucose (02/20/2022 12:30 PM EDT) athologist Signature POC Glucose 130 65 - 199 [place] mg/dL [facility] Comment: Supplemental ranges: <140 mg/dL before meals <180 mg/dL all other times of the day Specimen Anatomical Collection Method Collection Time Receive d Time (Source) Location / / Volume Laterality Blood 02/20/2022 12:30 02/20/2022 PM EDT 12:30 PM EDT Johan Kessler MD POINT OF CARE TEST ORDERABLE S Performing Organization Address City/State/ZIP [place] [address] (ABNORMAL) POCT Glucose (02/20/2022 7:07 AM EDT) athologist Signature POC Glucose 200 (H) 65 - 199 [place] mg/dL [facility] Comment: Supplemental ranges: <140 mg/dL before meals <180 mg/dL all other times of the day Specimen Anatomical Collection Method Collection Time Receive d Time (Source) Location / / Volume Laterality Blood 02/20/2022 7:07 AM 2 7:07 EDT AM EDT Lora Vivas MD POINT OF CARE TEST ORDERABLE S Performing Organization Address City/State/ZIP Code Phon e Number [address] Phosphorus (02/20/2022 6:09 AM EDT) athologist Signature Phosphorus 3.3 2.5 - 4.5 [place] mg/dL [facility] Specimen Anatomical Collection Method Collection Time Receive d Time (Source) Location / / Volume Laterality Blood 02/20/2022 6:09 AM 2 6:25 EDT AM EDT Resulting Agency Comment Spec In Lab Lora Vivas MD CHEMISTRY ORDERABLES Performing Organization Address City/State/ZIP Code Phon e Number [address] Magnesium (02/20/2022 6:09 AM EDT) P athologist Signature Magnesium 0.99 0.69 - 1.07 [facility]/L [facility] Specimen Anatomical Collection Method Collection Time Receive d Time (Source) Location / / Volume Laterality Blood 02/20/2022 6:09 AM 2 6:25 EDT AM EDT Resulting Agency Comment Spec In Lab Lora Vivas MD CHEMISTRY ORDERABLES Performing Organization Address City/[facility]/ZIP Code Phon e Number [address] (ABNORMAL) Basic Metabolic Panel (non-fasting) (02/20/2022 6:09 AM EDT) P athologist Signature Glucose Lvl 200 (H) 65 - 199 [facility] mg/dL [facility] Comment: Diabetes: >=200 mg/dL plus symp toms BUN 12 8 - 18 mg/dL [facility] Creatinine 0.57 (L) 0.70 - 1.20 mg/dL [facility] Sodium 141 135 - 145 mmol/L [facility] Potassium 3.8 3.5 - 5.0 mmol/L [facility] Comment: Please note: ??Patients with WBC >100,00 0 may have falsely elevated Potassium levels. ??For accurate Potassium quantif ication in these patients send serum separator tube (gold top) for subsequent determinations. ??Contact the Clinical Chemistry Laboratory if there are any qu estions. Chloride 109 (H) 98 - 107 mmol/L [facility] CO2 23 22 - 31 mmol/L [facility] Anion Gap 9 5 - 15 mmol/L [facility] Calcium 8.2 (L) 8.5 - 10.5 mg/dL [facility] Estimated GFR 111 >=60 mL/min/1.73 m?? [facility] Comment: This patient? s estimated glomerular [...] Organization Address City/State/ZIP Code Phon e Number [address] POCT Glucose (02/19/2022 11:34 PM EDT) athologist Signature POC Glucose 159 65 - 199 [facility] mg/dL [facility] Comment: Supplemental ranges: <140 mg/dL before meals <180 mg/dL all other times of the day Specimen Anatomical Collection Method Collection Time Receive d Time (Source) Location / / Volume Laterality Blood 02/19/2022 11:34 02/19/2022 PM EDT 11:34 PM EDT Lora Vivas MD POINT OF CARE TEST ORDERABLE S Performing Organization Address City/State/ZIP Code Phon e Number [address] POCT Glucose (02/19/2022 5:14 PM EDT) athologist Signature POC Glucose 82 65 - 199 [facility] [facility]ID mg/dL [facility] Comment: Supplemental ranges: <140 mg/dL before meals <180 mg/dL all other times of the day Specimen Anatomical Collection Method Collection Time Receive d Time (Source) Location / / Volume Laterality Blood 02/19/2022 5:14 PM 5:14 EDT PM EDT Lora Vivas MD POINT OF CARE TEST ORDERABLE S Performing Organization Address City/State/ZIP Code Phon e Number [address] POCT Glucose (02/19/2022 10:53 AM EDT) P athologist Signature POC Glucose 94 65 - 199 [facility] Comment: Supplemental ranges: <140 mg/dL before meals <180 mg/dL all other times of the day Specimen Anatomical Collection Method Collection Time Receive d Time (Source) Location / / Volume Laterality Blood 02/19/2022 10:53 02/19/2022 AM EDT 10:53 AM EDT Lora Vivas MD POINT OF CARE TEST ORDERABLE S Performing Organization Address City/State/ZIP Code Phon e Number [address] COVID-19 PCR (02/19/2022 7:06 AM EDT) Patholo gist Method Time Signature SARS-CoV-2 Not Detected Not Detected HEMRELINDA RNA PCR [facility] Comment: This result should be interpreted in com bination with the clinical observations, patient history and epidem iological information. For testing of asymptomatic individuals, assay performa nce characteristics and clinical utility have not been evaluated. Testing for SARS-CoV-2 (Severe acute respiratory syndrome coronavirus 2, form erly known as 2019 novel coronavirus or 2019-nCoV) to aid in the diagnosis of CO VID-19 is performed using the Simplexa COVID-19 Direct Assay by [employer] as authorized by the FDA issued Emergency [...] Department of Pathology and Laboratory Medicine at [facility], certified under the Clinical Laboratory Improvement Amendmen [...] clinical management guidance information are available at e CDC Coronavirus Disease 2019 (COVID-19) webpage under Information fo r Healthcare Professionals (https://www.cdc.gov/coronavirus/2019-nc ov/hcp/index.html). Additional information about this and ot her EUA tests can be found in provider and patient fact sheets at the following FDA website: https://www.fda.gov/medical-devices/hsgctwldoxo-bscdruc-8812-amtwh-35-bzxuzmmzq- wyp-egaajjlsbqpcwf-msnbmyq-devices/tlxja-tekorjqfzks-bvjy SARS-CoV-2 Source [employer] [facility] Specimen (Source) Anatomical Collection Method Collection Time Re ceived Time Location / / Volume Laterality Nasopharyngeal Swab 02/19/2022 7:06 02/19 AM EDT 8:17 AM EDT Comment: Symptoms->Surveillance Resulting Agency Comment Spec In Lab Lora Vivas MD MICROBIOLOGY - GENERAL ORDER ERIN Performing Organization Address City/State/[place] [address] POCT Glucose (02/19/2022 6:21 AM EDT) P athologist Signature POC Glucose 77 65 - 199 HERMELINDA JOSE DAVID mg/dL [facility] Comment: Supplemental ranges: <140 mg/dL before meals <180 mg/dL all other times of the day Specimen Anatomical Collection Method Collection Time Receive d Time (Source) Location / / Volume Laterality Blood 02/19/2022 6:21 AM 2 6:21 EDT AM EDT Billie Rubio MD POINT OF CARE TEST ORDERABLE S Performing Organization Address City/[facility]/ZIP [facility] [place] [address] Anaerobic Culture (02/19/2022 6:00 AM EDT) [facility] Method Time Signature Anaerobic No anaerobic HERMELINDA JOSE DAVID Culture organisms [facility] LABORATORY Specimen Anatomical Collection Method Collection Time Receive d Time (Source) Location / / Volume Laterality Leg 02/19/2022 6:00 AM 2 9:30 EDT AM EDT Comment: Left leg anterior lateral nicky rtment culture Resulting Agency Comment Spec In Lab Lora Vivas MD MICROBIOLOGY - GENERAL ORDER ERIN Performing Organization Address City/[facility]/ZIP Code [place] [address] (ABNORMAL) Tissue culture (02/19/2022 6:00 AM EDT) Component Value Ref Test Analysis Performed At [facility] Range Method Time Signature Tissue Clostridium perfringens isolated from broth culture. HERMELINDA Culture No growth on original plates. [facility] Gram Stain No Neutrophils seen. HERMELINDA No microorganisms seen. [facility] (A) [facility] Organism Clostridium HERMELINDA perfringens (A) [facility] Specimen Anatomical Collection Method [...] - GENERAL ORDER ERIN Performing Organization Address City/[facility]/ZIP Code [place] [address] Anaerobic Culture (02/19/2022 6:00 AM EDT) [facility] Method Time Signature Anaerobic No anaerobic [facility] organisms [facility] LABORATORY Specimen Anatomical Collection Method Collection Time Receive d Time (Source) Location / / Volume Laterality Leg 02/19/2022 6:00 AM 2 9:29 EDT AM EDT Comment: Left leg medial calf compartmen t culture Resulting Agency Comment Spec In Lab Lora Vivas MD MICROBIOLOGY - GENERAL ORDER ERIN Performing Organization Address City/[facility]/ZIP [place] [address] Tissue culture (02/19/2022 6:00 AM EDT) Component Value Ref Test Analysis Performed At [facility] Range Method Time Signature Tissue No growth HERMELINDA Culture [facility] Gram Stain Few Neutrophils seen HERMELINDA No microorganisms seen. [facility] Specimen Anatomical Collection Method Collection Time Receive d Time (Source) Location / / Volume Laterality Leg 02/19/2022 6:00 AM 2 9:29 EDT AM EDT Comment: Left leg medial calf compartmen t culture Resulting Agency Comment Spec In Lab Lora Vivas MD MICROBIOLOGY - GENERAL ORDER ERIN Performing Organization Address City/[facility]/ZIP [place] [address] Specimen to Pathology (02/19/2022 5:56 AM EDT) Specimen Anatomical Collection Method Collection Time Receive d Time (Source) Location / / Volume Laterality AP Specimen 02/19/2022 5:56 AM 2 5:56 EDT AM EDT Narrative [facility] - 02/19/2022 5:56 AM EDT Specimen requisition ordered. ??Separate Pathology report to follow Lora Vivas MD PATHOLOGY/CYTOLOGY ORDERABLE S Performing Organization Address City/[facility]/ZIP Code [place] [address] [facility] Surgical Pathology Report (02/19/2022 5:49 AM EDT) Component Value Ref Test Analysis Performed At [facility] Range Method Time Signature Surgical ? Location: [facility]; [facility]; A [facility] Report The signing pathologist has (i) examined the relevant preparation(s) for the [facility]ORIAL specimen(s) and (ii) rendered or confirmed the diagnosis(es) . [facility] . ?Surgic al Pathology DIAGNOSIS A [...] lymphocytic inflammation o nly. Electronically signed by: ?Wilian Talbert MD Verified: ??02/24/2022 15:59 ??Pathologist Performed at: ??-[facility] Dept. of Pathology, [place], [place] SPECIMEN(S) SUBMITTED A - Left leg, [...] MD PATHOLOGY/CYTOLOGY ORDERABLE S Performing Organization Address City/[facility]/ZIP [place] [address] Specimen to Pathology (02/19/2022 5:49 AM EDT) Specimen Anatomical Collection Method Collection Time Receive d Time (Source) Location / / Volume Laterality AP Specimen 02/19/2022 5:49 AM 2 5:49 EDT AM EDT Narrative [facility] - 02/19/2022 5:49 AM EDT Specimen requisition ordered. ??Separate Pathology report to follow Lora Vivas MD PATHOLOGY/CYTOLOGY ORDERABLE S Performing Organization Address City/[facility]/ZIP [place] [address] Specimen to Pathology (02/19/2022 5:49 AM EDT) Specimen Anatomical Collection Method Collection Time Receive d Time (Source) Location / / Volume Laterality AP Specimen 02/19/2022 5:49 AM 2 5:49 EDT AM EDT Narrative [facility] - 02/19/2022 5:49 AM EDT Specimen requisition ordered. ??Separate Pathology report to follow Lora Vivas MD PATHOLOGY/CYTOLOGY ORDERABLE S Performing Organization Address City/[facility]/ZIP [place] [address] L-Lactate2 Whole Blood (02/19/2022 5:09 AM EDT) P athologist Signature Lactate WB 1.6 0.5 - 2.2 [facility] mmol/[facility] Specimen Anatomical Collection Method Collection Time Receive d Time (Source) Location / / Volume Laterality Blood 02/19/2022 5:09 AM 2 5:09 EDT AM EDT Billie Rubio MD CHEMISTRY ORDERABLES Performing Organization Address City/[facility]/ZIP [place] [address] Scan, Peripheral Blood (02/19/2022 3:45 AM EDT) [facility] [employer] Method Time Signature Plat Estimate Normal [facility] RBC Morphology Normal [facility] Toxic Present [facility] LABORATORY Specimen Anatomical Collection Method Collection Time Receive d Time (Source) Location / / Volume Laterality Blood 02/19/2022 3:45 AM 2 4:06 EDT AM EDT Resulting Agency Comment Spec In Lab Chica Hinson MD HEMATOLOGY ORDERABLES Performing Organization Address City/[facility]/ZIP [place] [address] CK (02/19/2022 3:45 AM EDT) P athologist Signature CK, Total 75 0 - 160 [facility] unit/[facility] Specimen Anatomical Collection Method Collection Time Receive d Time (Source) Location / / Volume Laterality Blood Venous Draw / 02/19/2022 3:45 AM 02/20/20 22 4:10 Unknown EDT AM EDT Resulting Agency Comment Spec In Lab Chica Hinson MD CHEMISTRY ORDERABLES Performing Organization Address City/[facility]/ZIP [place] [address] (ABNORMAL) Differential, Automated (02/19/2022 3:45 AM EDT) [facility] [employer] Method Time Signature Neutrophils % 46.6 % [facility] Neutr Abs (ANC) 4.91 1.70 - [facility] 6.10 [facility] x10(3)/[facility] LABORATORY Lymphocytes % 39.0 % [facility] Lymphocytes Abs 4.1 (H) 0.9 - 3.2 [facility] x10(3)/[facility] LABORATORY Monocytes % 10.3 % [facility] Monocyte Abs 1.1 (H) 0.3 - 0.9 [facility] x10(3)/[facility] LABORATORY Eosinophils % 3.4 % [facility] Eosinophils Abs 0.4 0.0 - 0.4 [facility] x10(3)/[facility] LABORATORY Basophils % 0.5 % [facility] Basophils Abs 0.0 0.0 - 0.1 [facility] x10(3)/[facility] LABORATORY Immature Gran % 0.20 % [facility] Comment: Immature granulocytes(IG's)percentage an d absolute count will include metamyelocytes, myelocytes, and promyelo cytes. Blood smears from CBCs yielding IG's will be scanned manually for concor dance. If this scan disagrees with the automated IG or if promyelocytes are not ed, a manual differential will be performed. Anaya Gran Abs 0.02 0.00 - 0.04 x10(3)/[facility] MAR Y [facility] Specimen Anatomical Collection Method Collection Time Receive d Time (Source) Location / / Volume Laterality Blood 02/19/2022 3:45 AM 2 4:06 EDT AM EDT Resulting Agency Comment Spec In Lab Chica Hinson MD HEMATOLOGY ORDERABLES Performing Organization Address City/State/[place] [address] (ABNORMAL) Hemogram (02/19/2022 3:45 AM EDT) Analysis Performed At Patho logist Time Signature WBC 10.5 (H) 4.0 - 9.5 [facility] x10(3)/[facility] LABORATORY RBC 4.83 4.00 - [facility] 5.21 [facility] x10(6)/[facility] LABORATORY Hemoglobin 14.2 11.7 - [facility] 15.5 g/dL [facility] Hematocrit 42.7 35.7 - [facility] 45.8 % [facility] MCV 88.4 82.6 - HERMELINDA WHEATJOSE DAVID 94.4 [facility] LABORATORY MCH 29.4 27.1 - HERMELINDA WHEATJOSE DAVID 32.0 pg [facility] MCHC 33.3 31.7 - HERMELINDA WHEATJOSE DAVID 35.0 g/dL [facility] Platelets 311 145 - 357 HERMELINDA [place] x10(3)/[facility] LABORATORY RDWSD 46.9 (H) 37.0 - [place]ELINDA [place] 46.0 [facility] LABORATORY RDWCV 14.6 (H) 11.5 - HERMELINDA WHEATJOSE DAVID 14.1 % [facility] MPV 10.2 7.6 - 12.9 [facility] nRBC % Auto 0.0 % [facility] nRBC Abs Auto 0.000 0.000 - [place]ELINDA [place] 0.000 [facility] x10(3)/[facility] LABORATORY Specimen Anatomical Collection Method Collection Time Receive d Time (Source) Location / / Volume Laterality Blood 02/19/2022 3:45 AM 2 4:06 EDT AM EDT Resulting Agency Comment Spec In Lab Chica Hinson MD HEMATOLOGY ORDERABLES Performing Organization Address City/State/ZIP [place] [address] APTT (02/19/2022 3:45 AM EDT) P athologist Signature PTT 31 25 - 37 sec [facility] Comment: The PTT is NOT appropriate [...] Rubio MD HEMATOLOGY ORDERABLES Performing Organization Address City/State/ZIP [place] [address] Prothrombin Time (02/19/2022 3:45 AM EDT) P athologist Signature PT 11.5 9.4 - 12.5 [facility] LABORATORY INR 1.0 [facility] Comment: An INR <2.0 indicates adequate [...] Rubio MD HEMATOLOGY ORDERABLES Performing Organization Address City/[facility]/ZIP Code Phon e Number [address] (ABNORMAL) CRP, acute inflammation (02/19/2022 3:45 AM EDT) P athologist Signature CRP 5.6 (H) <=4.9 mg/L [facility] Specimen Anatomical Collection Method Collection Time Receive d Time (Source) Location / / Volume Laterality Blood 02/19/2022 3:45 AM 2 4:06 EDT AM EDT Resulting Agency Comment Spec In Lab Billie Rubio MD CHEMISTRY ORDERABLES Performing Organization Address City/[facility] [place] [address] Sedimentation rate (02/19/2022 3:45 AM EDT) P athologist Signature Sed Rate 26 2 - 37 [facility] mm/hr [facility] Comment: Effective September 11, 2019 [...] Rubio MD HEMATOLOGY ORDERABLES Performing Organization Address City/State/[place] [address] (ABNORMAL) Basic Metabolic Panel (non-fasting) (02/19/2022 3:45 AM EDT) P athologist Signature Glucose Lvl 83 65 - 199 [facility] mg/dL [facility] Comment: Diabetes: >=200 mg/dL plus symp toms BUN 25 (H) 8 - 18 mg/dL [facility] Creatinine 0.78 0.70 - 1.20 mg/dL [facility] Sodium 142 135 - 145 mmol/L [facility] Potassium 3.1 (L) 3.5 - 5.0 mmol/L [facility] Comment: result rechecked-AR Please note: ??Patients with WBC >100,00 0 may have falsely elevated Potassium levels. ??For accurate Potassium quantif ication in these patients send serum separator tube (gold top) for subsequent determinations. ??Contact the Clinical Chemistry Laboratory if there are any qu estions. Chloride 103 98 - 107 mmol/L [facility] CO2 27 22 - 31 mmol/L [facility] Anion Gap 12 5 - 15 mmol/L [facility] Calcium 9.0 8.5 - 10.5 mg/dL [facility] Estimated GFR 91 >=60 mL/min/1.73 m?? [facility] Comment: This patient? s estimated glomerular [...] Organization Address City/State/[place] [address] Film Library- Storage Only [...] filedocumented in this encounter Admitting Diagnoses Diagnosis Myositis [...] Given 02/23/2022 10:11 AM EDT 1 Inhalation cephALEXin (Keflex) capsule 500 mg Given 02/24/2022 [...] 40 mg, Oral, DAILY, First dose on 02/19/22 at 0945, Until Discontinued, Routine Given 02/23/2022 10:11 AM EDT 40 mg Given 02/22/2022 9:57 AM EDT 40 mg clopidogreL (Plavix) tablet 75 mg Given 02/24/2022 9:23 AM EDT 75 mg 75 mg, Oral, DAILY, First dose on 02/19/22 [...] Given 02/21/2022 8:21 PM EDT 40 mg furosemide (Lasix) tablet 20 mg Given 02/24/2022 [...] Mon02/23/22 at 1118, Until Mon02/24/22 at 1434, Low blood sug ar, For [...] weight of tube = 37.5 grams.), Routine ibuprofen (Advil) tablet 600 mg Given [...] 600 mg insulin glargine-ygfn (Semglee) (100 Given 02/24/2022 9:21 [...] 9 Units insulin lispro (HumaLOG;Admelog) (100 Given 02/24/2022 [...] Given 02/23/2022 5:37 PM EDT 4 Units lidocaine (Lidoderm) 5% Patch Applied 02/23/2022 5:37 [...] 9:58 AM EDT 50 mg metroNIDAZOLE (Flagyl) tablet 500 mg Given 02/24/2022 9:22 AM EDT 500 mg 500 mg, Oral, 2 TIMES DAILY, 14 doses, First dose on Mon02/22/22 at 2100, Last dose on Mon03/01/22 at 0900, Routine, 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 Given 02/23/2022 9:57 PM EDT 500 mg Given 02/23/2022 10:11 AM EDT 500 mg nicotine (Nicoderm CQ) 14 Given 02/24/2022 10:44 AM EDT 14 mg 04- Shoulder (Right) mg/24 hr patch 14 mg 14 mg (1 patch), Transdermal, EVERY 24 HOURS, First dose on Mon02/19/22 at 1145, Until Discontinued, Apply new patch [...] Transdermal, EVERY 24 HOURS, First dose on Mon02/20/22 at 1130, Until Discontinued, Remove Nicotine Patch [...] Routine oxyCODONE (Roxicodone) tablet 10 mg Given 02/24/2022 [...] pain not relieved., Routine oxyCODONE (Roxicodone) tablet 15 mg Given 02/24/2022 10:45 AM EDT 15 mg 15 mg, Oral, EVERY 3 HOURS PRN, Starting on Mon02/23/22 at 1330, Until Toya 02/24/22 at 1434, Pain, severe pain (7-10), May give additional 5 mg in 30 minutes once if pain not relieved., Routine Given 02/24/2022 7:58 AM EDT 5 mg Given 02/24/2022 7:23 AM EDT 15 mg pantoprazole EC (Protonix) tablet 20 mg Given 02/24/2022 9:23 AM EDT 20 mg 20 mg, Oral, DAILY, First dose on 02/19/22 at 0945, Until Discontinued, DO NOT CRUSH OR OPEN, Routine Given 02/23/2022 10:11 AM EDT 20 mg Given 02/22/2022 9:57 AM EDT 20 mg sodium chloride 0.9 % (flush) (BD PosiFlush [...] 0958 (Given - Provider: Cyndi Machado RN) 101 (Given - Provider: Hermelinda Lamas, RN) 921 (Given - Provider: Hermelinda Lamas, DEVAN) 81 mg, Oral, DAILY, First dose on Sat at 0945, Until Discontinued, Routine budesonide-formoteroL (Symbicort) 160-4.5 mcg/actuatio n inhaler 1 Inhalation 100 (Given - Provider: Cyndi Machado RN)1946 (Given - Provider: Estrella Crowell, DEVAN) 101 (Given - Provider: Hermelinda Lamas, DEVAN)2208 (Given - Provider: Theresa Alvares, DEVAN) 09 (Given - Provider: Hermelinda Lamas RN) 1 Inhalation, Inhalation, 2 TIMES DAILY, First [...] Mary dorado RN)1635 (Stopped - Provider: Mary Pablo, DEVAN) 1 g, Intravenous, EVERY 8 HOURS, First d ose on Mon02/22/22 at 1530, Until Discontinued, Administer over 30 Minutes, Indication 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): Skin/Skin Structure cephALEXin (Keflex) capsule 500 mg 182 (Given - Provi ayad: Cyndi Machado RN)2156 (Given - Provider: Estrella Crowell RN) 1010 (Given - Provider: Hermelinda Lamas, DEVAN)1300 (Given - Provider: Keisha Gutierrez, RN)1700 (Given - Provider: Keisha Gutierrez, DEVAN)2156 (Given - Provider: Theresa Alvares, DEVAN) 0922 (Given - Provider: Hermelinda Lamas, DEVAN) 500 mg, Oral, 4 TIMES DAILY, 28 doses, F irst dose on Mon02/22/22 at 1830, Last dose on Mon03/01/22 at 1300, Routine citalopram (CeleXA) tablet 40 mg 0957 (Given - Provider: Hemanth Machado RN) 1011 (Given - Provider: Hermelinda Lamas, RN) 0922 (Given - Provider: Hermelinda Lamas, DEVAN) 40 mg, Oral, DAILY, First dose on Mon at 0945, Until Discontinued, Routine clindamycin (Cleocin) 600 mg in dextrose 5% 50 mL infu sj (CANCELED) 1635 (New Bag - Provider: Mary Pablo, DEVAN)1655 (Stopped - Provider: Mary Pablo, DEVAN) 600 mg, Intravenous, EVERY 8 HOURS, Firs t dose on Mon02/22/22 at 1530, Until Discontinued, Administer over 20 Minutes, Indication 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): Skin/Skin Structure clopidogreL (Plavix) tablet 75 mg 0958 (Given - Provider: Indy Machado RN) 1009 (Given - Provider: Hermelinda Lamas, DEVAN) 0923 (Given - Provider: Hermelinda Lamas, DEVAN) 75 mg, Oral, DAILY, First dose on Mon at 0945, Until Discontinued, Routine dextromethorphan (Robitussin) capsule 15 mg 1228 (Give n - Provider: Cyndi Machado RN)1741 (Given - Provider: Cyndi Machado RN)2306 (Given - Provider: Estrella Crowell, DEVAN) 0534 (Given - Provider: Estrella Crowell , DEVAN)1216 (Given - Provider: Keisha Gutierrez, DEVAN)1738 (Given - Provider: Keisha Gutierrez, DEVAN) 0008 (Given - Provider: Theresa Alvares, DEVAN)0617 (Given - Provider: Theresa Alvares RN) 15 mg, Oral, EVERY 6 HOURS SCHEDULED, Fi rst dose on Mon02/22/22 at 1200, Until Discontinued, Routine docusate sodium (Colace) capsule 100 mg 09 (Given - Provider: Cyndi Machado RN)1947 (Given - Provider: Estrella Crowell RN) 1010 (Given - Provider: Hermelinda Lamas, DEVAN)2155 (Given - Provider: Theresa Alvares RN) 09 (Given - Provider: Hermelinda Lamas RN) 100 mg, Oral, 2 TIMES DAILY, First dose on 02/19/22 at 0945, Until Discontinued, Routine enoxaparin (Lovenox) (40 mg/0.4 mL) subcutaneous injec tion 40 mg 1947 (Given - Provider: Esterlla Crowell RN) 2154 (Given - Provider: Theresa Alvares RN) 40 mg, Subcutaneous, NIGHTLY, First dose on 02/20/22 at 2100, Until Discontinued, Routine furosemide (Lasix) tablet 20 mg 956 (Given - Provider : Cyndi Machado RN)1947 (Given - Provider: Estrella Crowell RN) 1010 (Given - Provider: Hermelinda Lamas, DEVAN)2156 [...] Discontinued, Routine gabapentin (Neurontin) capsule 600 mg 0957 (Given - Pr ovider: Cyndi Machado RN)160 (Given - Provider: Mary Pablo RN) 1010 (Given - Provider: Hermelinda Lamas RN)154 (Given - Provider: Keisha Gutierrez RN) 09 (Given - Provider: Hermelinda Lamas RN) 600 mg, Oral, 2 TIMES DAILY, First dose on Sat /21/22 at 0945, Until Discontinued, Routine HYDROmorphone (Dilaudid) (0.5 mg/0.5 mL) injection syr sammi 0.3 mg (COMPLETED) 08 (Given - Provider: Cyndi Machado RN) 0.3 mg, Intravenous, ONCE, 1 dose, On Mon02/22/22 at 0830, Routi ne HYDROmorphone (Dilaudid) tablet 2 mg (COMPLETED) 1021 (Given - Provider: Hermelinda Lamas RN) 2 mg, Oral, ONCE, 1 dose, On Mon02/23/22 at 1100, Routine ibuprofen (Advil) tablet 600 mg 1011 (Gi pilar - Provider: Hermelinda Lamas RN)1542 (Given - Provider: Keisha Gutierrez RN)2156 (Given - Provider: Theresa Alvares RN) 0424 (Given - Provider: Theresa Alvares RN)1045 (Given - Provider: Hermelinda Lamas RN) 600 mg, Oral, EVERY 6 HOURS, First dose on Mon02/23/22 at 1030, Until Discontinued, Administer orally with milk or food to minimize GI irritation. Maximum dose of 3,200 mg from all sources in 24 hours, Routine insulin glargine-ygfn (Semglee) (100 uni t/mL) subcutaneous injection vial 15 Units (CANCELED) 0958 (Given - Provider: Cyndi Machado RN) 1025 [...] Gutierrez RN - Comment: Just ate lunch now)181 (Given - Provider: Lindsay Cordwell, RN) 0921 (Given - Provider: Hermelinda Lamas RN) [...] Provider: Clif Vela PN)0959 (Given - Provider: Cydni Machado RN) 0-6 Units, Subcutaneous, EVERY 4 HOURS S [...] Machado RN )1612 (Given - Provider: Mary Pablo RN)1949 (Given - Provider: Estrella Crowell, DEVAN)2310 (Given - Provider: Estrella Crowell, DEVAN) 0400 (Given - Provider: Estrella Crowell, DEVAN)0739 (Given - Provider: Keisha Gutierrez RN) 0-6 Units, Subcutaneous, EVERY 4 HOURS S [...] DEVAN) 0923 (Giv en - Provider: Hermelinda Lamas RN) 50 mg, Oral, DAILY, First dose on Mon at 0945, Until Discontinued, DO NOT CRUSH OR OPEN Hold for SBP<90 or HR<60, Routine metroNIDAZOLE (Flagyl) 500 mg in sodium chloride 0.9% 100 mL infusion (CANCELED) 0605 (New Bag - Provider: Francine lee, DEVAN)0635 (Stopped - Provider: Francine Khoury RN) 500 mg, Intravenous, EVERY 8 HOURS, Firs t dose (after last reorder) on Mon02/20/22 at 0700, Until Discontinued, Administer over 30 Minutes, 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 metroNIDAZOLE (Flagyl) tablet 500 mg 5 (Given - Pro vider: Estrella Crowell RN) 1011 (Given - Provider: Hermelinda Lamas RN)2157 (Given - Provider: Theresa Alvares RN) 0922 (Given - Provider: Hermelinda Lamas RN) 500 mg, Oral, 2 TIMES DAILY, 14 doses, F irst dose on Mon02/22/22 at 2100, Last dose on Mon03/01/22 at 0900, Routine nicotine (Nicoderm CQ) 14 mg/24 hr patch 14 mg(Linked Group 3) 1233 (Given - Provider: Cyndi Machado RN) 1101 (Given - Provider: Hermelinda Lamas, DEVAN) 1044 (Given - Provider: Hermelinda Lamas RN) 14 mg (1 patch), Transdermal, EVERY 24 H OURS, First dose on Mon02/19/22 at 1145, Until Discontinued, Apply new patch [...] Gutierrez, DEVAN)1737 (Given - Provider: Keisha Gutierrez, RN) 0005 (Given - Provider: Theresa Alvares, DEVAN)0617 (Given - Provider: Theresa Alvares RN) 10 mg, Oral, EVERY 6 HOURS, First dose o n 02/22/22 at 1200, Until Discontinued, Routine pantoprazole EC (Protonix) tablet 20 mg 0957 (Given - Provider: Cyndi Machado RN) 1011 (Given - Provider: Hermelinda Lamas, DEVAN) 0923 (Giv en - Provider: Hermelinda Lamas, DEVAN) 20 mg, Oral, DAILY, First dose on Sat at 0945, Until Discontinued, DO NOT CRUSH OR OPEN, Routine sodium chloride 0.9 % (flush) (BD PosiFlush Normal Celestino ine 0.9) flush 5 mL 1000 (Given - Provider: Cyndi Machado RN)1956 (Given - Provider: Estrella Crowell RN)2156 (Given - Provider: Estrella Crowell RN) 1101 (Given - Provider: Hermelinda Lamas, DEVAN)2157 (Given - Provider: Theresa Alvares, DEVAN) 0900 [...] 10 mg 0624 (Given - Provider: Estrella Crowell, RN)1422 (Given - Provider: Hermelinda Lamas, RN) 0005 (Given - Provider: Theresa Alvares, RN)0520 (Given - Provider: Theresa Alvares, DEVAN) 10 [...] mg (CANCELED) 0010 (Given - Provider: Francine Khoury, DEVAN)0408 (Given - Provider: Francine Khoury RN) 0.4 mg, Intravenous, EVERY 4 HOURS PRN, Starting on 02/20/22 at 0809, Until 02/22/22 at 0714, Pain, for pain not controlled [...] Cyndi Machado RN)1608 (Given - Provider: Mary Pablo, DEVAN)1902 (Given - Provider: Mary Pablo RN)1941 (See Alternative - Provider: Estrella Crowell RN) 0246 (Given - Provider: Estrella Crowell RN)0400 (See Alternative - Provider: Estrella Crowell RN)0624 (See Alternative - Provider: Estrella Crowell RN)0659 (Given - Provider: Estrella Crowell RN)1009 (Given - Provider: Hermelinda Lamas RN) 10 mg, Oral, EVERY 3 HOURS PRN, Starting on 02/22/22 at 1003, Until 02/23/22 at 1331, Pain, severe pain (7-10), May give additional 5 mg in 30 minutes once if pain not relieved., Routine 2156 (Given - Provider: Estrella Crowell RN)2225 (See Alternative - Provider: Estrella Crowell RN) 1100 (Given - Provider: Hermelinda Lamas RN - Comment: additional - pain uncontrolled) oxyCODONE (Roxicodone) tablet 10 mg(Linked Group 6) 1338 (See Alternative - Provider: Hermelinda Lamas, DEVAN)1422 (See Alternative - Provider: Hermelinda Lamas RN)1817 (See Alternative - Provider: Hermelinda Lamas RN)2156 (See Alternative - Provider: Theresa Alvares, DEVAN) 0112 (See Alternative - Provider: Theresa Alvares RN)0424 (See Alternative - Provider: Theresa Alvares RN)0518 (See Alternative - Provider: Theresa Alvares RN)0723 (See Alternative - Provider: Theresa Alvares, RN) 10 mg, Oral, EVERY 3 HOURS PRN, [...] Oral, EVERY 4 HOURS PRN, Starting on 02/21/22 at 1646, Until Mon02/22/22 at 0714, Pain, severe pain or opiate tolerant patient (7-10), Do not start patient with 15 mg dose. Do not give 15 mg if patient is opiate niave., Routine oxyCODONE (Roxicodone) tablet 15 mg (CANCELED) 0956 (G iven - Provider: Cyndi Machado RN) 15 mg, Oral, EVERY 3 HOURS PRN, Starting on Mon02/22/22 at 0715, Until Mon02/22/22 at 1004, Pain, severe pain or opiate tolerant patient (7-10), Do not start patient with 15 mg dose. Do not give 15 mg if patient is opiate niave., Routine oxyCODONE (Roxicodone) tablet 15 mg(Linked Group 6) 1338 (Given - Provider: Hermelinda Lamas, DEVAN)1422 (Given - Provider: Hermelinda Lamas, DEVAN - Comment: additional 5mg for unrelieved pain)1817 (Given - Provider: Hermelinda Lamas RN)2156 (Given - Provider: Theresa Alvares, DEVAN) 0112 (Given - Provider: Theresa Alvares, DEVAN)0424 (Given - Provider: Theresa Alvares, DEVAN)0518 (Given - Provider: Theresa Alvares RN)0723 (Given - Provider: Theresa Alvares RN) 15 mg, Oral, EVERY 3 HOURS [...] Oral, EVERY 3 HOURS PRN, Starting on 02/22/22 at 1003, Until Mon02/23/22 at 1331, Pain, [...] 5 mg 2307 (Given - Provider: Estrella Crowell RN) 0005 (Given - Provider: Theresa Alvares [...] rst dose on Mon02/21/22 at 1745, Until Discontinued
Apply patch(es) for 12 hours, and then remove for 12 hours.
Routine And lidocaine (Lidoderm) topical patch REMOVALJump to med Transdermal, EVERY 24 HOURS, First dose on Mon02/22/22 at 0500, Until Discontinued
Remove lidocaine 5% [...] Transdermal, EVERY 24 HOURS, First dose on Mon02/20/22 at 1130, Until Discontinued
Remove Nicotine Patch
[...] episode. & nbsp; For persistent hypoglycemia, con early childhood aide classroom longer-acting treatment for the duration of the [...]
Routine documented in this encounter Care Teams Deputy Fire Marshal Relationship Specialty Start Date End Date Lora Parekh MD PCP - General Family Medicine 08/06/21 [address] [place] [phone] documented as of this encounter
--- OUTSIDE RECORDS SUMMARY | 2022-08-14 18:36 | XMS_ITS | Encounter Summary ---
:1975 Author Organization [facility] [place] [address] Care Team Providers Name Role Phone Valentin Parekh MD Primary Care Provider Encounter Details Date Type Department Care Team Description 09/15/2021 Telephone Internal Medicine at [facility] Sandro Mariscal [address] [place] [address] Social History Tobacco Use Types Packs/Day Years Used Date Smoking Tobacco: Every Day Cigarettes 0.5 Smokeless Tobacco: Never Alcohol Use Standard Drinks/Week Comments Yes 0 (1 standard drink = 0.6 oz pure alcoho l) occasional Sex Assigned at Date Recorded Not on file documented as of this encounter Miscellaneous Notes Telephone Encounter - Sandro Mariscal - 09/15/2021 12:[address] Rush, called patient to help schedule BERNY appointment with him here at the [facility]. LVM documented in this encounter Plan of Treatment Upcoming Encounters Date Type Specialty Care Team Description 08/22/2022 Appointment Cardiology 08/22/2022 Laboratory Appointment Lab 08/22/2022 Office Visit Cardiology Tameka Neal MD [facility] [address] [place] [id number] (Wo rk) documented as of this encounter Visit Diagnoses Not on filedocumented in this encounter Care Teams Concrete Block Maker Relationship Specialty Start Date End Date Valentin Parekh MD PCP - General Family Medicine 08/06/[address] [place] [phone] documented as of this encounter
--- OUTSIDE RECORDS SUMMARY | 2022-08-14 18:36 | XMS_ITS | Encounter Summary ---
:1975 Author Organization [facility] [place] [address] Care Team Providers Name Role Phone Lora Parekh MD Primary Care Provider Reason for Visit Reason Comments Leg Pain Auth/Cert Specialty Diagnoses / Procedures Referred By Contact Refer red To Contact Diagnoses Myositis Necrotizing Fasciitis Referral ID Status Reason Start Date Expiration Date Visits Requ ested Visits Authorized [id number] 1 1 Encounter Details Date Type Department Care Team Description 02/21/2022 Surgery Main Operating Room Edgar Sharif D [facility] SKIN AND Hermelinda [facility] SU[facility], LOWER EXT[facility]ITY [facility] (WRU 1.01) [facility] [place] [address] [place] [address] [phone] (Wo rk) Social History Tobacco Use Types Packs/Day Years Used Date Smoking Tobacco: Every Day Cigarettes 0.5 Smokeless Tobacco: Never Alcohol Use Standard Drinks/Week Comments Yes 0 (1 standard drink = 0.6 oz pure alcoho l) occasional Sex Assigned at Date Recorded Not on file documented as of this encounter Last Filed Vital Signs Vital Sign Reading Time Taken Comments Blood Pressure 104/64 02/21/2022 9:00 AM EDT Pulse 77 02/19/2022 8:00 AM EDT Temperature 36.8 ??C (98.2 ??F) 02/21/2022 9:00 AM EDT Respiratory Rate 18 02/21/2022 9:00 AM EDT Oxygen Saturation 97% 02/21/2022 9:00 AM EDT Inhaled Oxygen Concentration - - [...] Aracelis Berkowitz Patient Age: 46 y.o. Language: Sami Race: White Ethnicity: Not nor Admit date: [...] toes. Hospital Course: Patient was admitted [facility] from the ED on 02/19 for LLE [...] & Lrg Kit 1 Product by [facility].(Non-Drug; Combo Route) route 2 [...] Given to Patient at Discharge: Patient Instructions [facility] Department of Acute Care Surgery Discharge Instructions [...] with the Surgery nurses. The number is [phone]. - During the night or weekends call the [facility] gasoline plant operator at [phone] and ask to speak to the surgery resident cap and hat production supervisor for general surgery. Please note: Your surgeon may not be Abrasives Sales Representative, especially during the night or on weekends, [...] hear anything, please call the clinic at [phone] to confirm or reschedule. If you need a prior authorization, please call the General Surgery Clinic nurses [phone] for prior authorizations assistance General Instructions December-for [...] evaluate December for admission to Home Health. [address] [place] [address] (home) Date of : 1975 Inpatient DOCUMENTATION FOR VNA SERVICES (INCLUDING THOSE PATIENTS WITH MEDICARE COVERAGE REQUIRING HOME VNA SERVICES AND/OR HOSPICE SERVICES) PATIENT'S LOCATION: December [address] [place] [address] [place] [address] (home) Cell: Telephone Information: Washing Tub Operator's Name: self/patient In discussion with the attending physician, it is certified that this patient is under their care and that they, or a Nurse Practitioner,Clinical Nurse specialist or Physician Export Clerk who is working directly with them, had [...] program if appropriate. HOME HEALTH CARE AGENCY: [facility] [address] [place] [id number] Start of care: 02/23/22 FOR MEDICARE ONLY: [...] from this patient'sPCP: Lora Parekh MD [address] [facility] [id number] All VNA agencies which cover the area of patient's residence have been reviewed, either verbally or in writing, and patient/family have chosen the home health care agency noted Questions: Disciplines Requested: Nursing Follow-Up: No future appointments. Primary Care Provider: Lora Parekh MD [phone] Follow-up Recommendations for Providers: see discharge summary [...] Fritz MD - 02/23/2022 9:28 AM EDT [facility] Department of Acute Care Surgery Discharge Instructions [...] with the Surgery nurses. The number is [phone]. - During the night or weekends call the [facility] gasoline plant operator at [phone] and ask to speak to the surgery resident cap and hat production supervisor for general surgery. Please note: Your surgeon may not be Abrasives Sales Representative, especially during the night or on weekends, [...] hear anything, please call the clinic at [phone] to confirm or reschedule. If you need a prior authorization, please call the General Surgery Clinic nurses [phone] for prior authorizations assistance documented in this [...] ejection daily. fraction), Coronary artery disease involving [place] coronary artery of [place] heart without angina pectoris, Hypertension, unspecified type [...] insulin needles, Inject 1 each 100 each 09/05/2021 disposable, 32 gauge x subcutaneously daily. [...] reduced ejection fraction), Coronary artery disease involving [place] coronary artery of [place] heart without angina pectoris, Hypertension, unspecified type [...] with questions. Discussed with attending, Dr. Rishabh Epstein DO ID Fellow Red Team Pager: [phone] ID ATTENDING I agree with assessment and recommendations above. I reviewed the data set and guided decision-making but did not re-examine the patient today. Jamee Keating MD Page [phone] All of this 15 minute visit were spent on the floor/unit in coordination of care for the patient, regarding treatment of infection as detailed in note above. NICAT Judy Eduardo Cayden - 02/24/2022 9:45 AM EDTSummary: Jeremy AD packet reviewed- not completed AD -IP/RS Reviewed AD for Vt w. Pt. She declines making decision at this time. Son is just 19 and mother too old w/ health challenges. She will review and bring to follow up appt in a month. Pt wantsto discuss w/ son before assignment. Josh Brock MD - 02/24/2022 8:33 AM EDT ID/MECHANISM [...] pt need to f-u with surgeon or FIRE EXTINGUISHER REPAIRER (please indicate reason if attending provider): Yes, FIRE EXTINGUISHER REPAIRER follow up in 4wk How soon should [...] on with ADL's Surveillance [continuous indirect monitoring]: Linseyo, Purposeful Rounding, Nurse Knowledge Exchangeat Bedside, Bed [...] 1.01) performed by [facility] ??? PRO DECOMPRESS ANT/LAT+POST LEG CMPART Left 02/19/2022 FASCIOTOMY, LOWER LEG, ALL COMPARTMENTS (WRVU 7.82) performed by Lora Vivas MD at [facility] MAIN OR Active Non-Hospital Problems Diagnosis ??? [...] drainage; all other visible skin intact; see outside laborer for details Musculoskeletal: ROM: WFL, L LE [...] mobility recommendations discussed with nursing. Assessment: Aracelis Kayden was seen today for physical therapy evaluation. [...] in this evaluation. Time IN / OUT: 6403-1132 Total Minutes, Physical Therapy: 47 Billing Code: Evaluation Elke Trinh, PT Pager: [phone] Physical Therapy Inpatient Rehabilitation Department Lora Vivas [...] BID and 1200 nightly, oxycodone 10mg q6, fahhdvpopksl35-27qm q3 prn, flexeril 10mg TID prn, dextromethorphan [...] Fritz MD 02/23/2022 Acute Care Surgery Pager [phone] Attending Addendum I have seen and examined the patient and reviewed the history documented above and I agree with the details as written. I have reviewed the laboratory data and viewed the pertinent imaging. The assessment and plan were formulated in discussion with me and I agree with them as documented. Jose Alfredo Vivas MD Jay Jay Villalta OT - 02/23/2022 1:05 PM EDT Occupational [...] 1.01) performed by Edgar Sharif MD at [facility] OR ??? PRO DECOMPRESS ANT/LAT+POST LEG CMPART Left 02/19/2022 FASCIOTOMY, LOWER LEG, ALL COMPARTMENTS (WRVU 7.82) performed by Lora Vivas MD at [facility] MAIN OR Social History: Patient lives w/ [...] & Perception: ?? WNL/WFL ?? corrective lenses interactive multimedia designer Communication: WFL Range of motion, strength, coordination: [...] only Total Minutes, Occupational Therapy: 55 (eval 1643-0741) OT Evaluation Code Rationale: ?? Diagnosis & [...] instrument andmeasurable assessment of functional outcome. Pager: [phone] Jay Jay Villalta, CALLY 02/23/2022 Occupational Therapy Rehabilitation Department Zaida Yen, DIP FILLER - 02/23/2022 9:32 AM EDTSummary: she should [...] to be set aside. She states her seating upholsterer is the person that put her on [...] 1211 02/22/22 0753 02/22/22 0338 02/21/22 2328 02/21/22201402/21/22 1838 02/21/22 1631 POCGLU 164 238* 201* [...] Care Surgery Progress Note Patient Name: Aracelis Berkoiwtz : 1975 Admit date: 02/19/2022 Attending Physician: [...] documented. Jose Alfredo Vivas MD Alka Schaffer, DIP FILLER - 02/22/2022 9:46 AM EDT Follow Up [...] Labs 02/22/22 0753 02/22/22 0338 02/21/22 2328 02/21/22201402/21/22 1838 02/21/22 1631 02/21/22 1133 02/21/22 0913 [...] ratio for each meal Alka Schaffer APRN [facility] Endocrinology Diabetes Management Pager [phone] 20 minutes of this 35 minute visit [...] Appears comfortable. 1305 - Report called to DEVNA Hanna Lora Vivas MD - 02/21/2022 10:33 [...] planned operation. Kai Delcid MD 02/21/2022 Pager [phone] General Surgery Pager [phone] Francine Khoury RN - 02/21/2022 6:32 AM [...] and to bedside to assess. NPO since 05 for debridement of RLE today. Will continue [...] Vivas MD - 02/19/2022 3:24 AM EDT [facility] Department of Surgery Admission H&P CC: [...] & Lrg Kit 1 Product by [facility].(Non-Drug; Combo Route) route 2 [...] on 02/19/2022. History of Present Illness Aracelis Berkowitz is a 46 y.o. female with history of diabetes with neuropathy, hypertension, PTSD who presents to the Emergency Department as a transfer from [facility] for evaluation of leg pain. Historyis from the patient at bedside and chart review. Patient reports 3 days of progressively worsening left lower extremity pain and acsending numbness. She was seen at [facility], where lactate was normal and white blood cell count was 10. CT scan showed findings concerning for necrotizing fasciitis. She was transferred to [facility] for evaluation by general surgery. [...] 4 mg (4 mg Intravenous Given 02/19/22 5529) HYDROmorphone (Dilaudid) (0.5 mg/0.5 mL) injection syringe 1 mg (1 mg Intravenous Given 02/19/22 0108) Film Library- Storage Only CT Lower Extremity [...] Disposition: Admit to operating room, general surgery Chcia Hinson MD Resident 02/19/22 5665 Associated attestation - Billie Rubio MD - [...] follow-up [facility] [place] [address] [facility] [address] Transportation: Family Functional status prior to admission: [...] and soft tissue infection, shewas transferred to [facility] under General Surgery service. On arrival here, [...] conditions Social History: She currently lives in [facility] with her children and pet cat/dog. She [...] Epstein, DO ID Fellow Red Team Pager: [phone] Infectious Diseases Attending I saw the patient [...] Keating MD Professor, Department of Medicine Page [phone] minutes of this 80 minute visit [...] Sharif MD - 02/21/2022 10:51 AM EDT [facility] Operative Note Patient Name: December : [id number] MR#: [id number] Case Date: 02/21/2022 Surgeon: Surgeon(s) and Role: [...] management and to provide a review of group home diabetes care. Diabetes History: Aracelis Berkowitz has [...] 5 gm carb ratio for each meal correction diabetes care: Medications - Outpatient treatment regimen recommendations pending based on the hospital course. Monitoring - continue BG tid ac & hs Diet - low fat/low carb diet Exercise - weight-bearing exercise 30 min/day, as tolerated Thank you for allowing us to provide care for your patient Alka Schaffer APRN [facility] Endocrinology Diabetes Management Pager [phone] minutes of this 80 minute visit [...] COVID test: Lab Results Component Value Date [id number] Not Detected 02/19/2022 Past medical History: No [...] walker at home) Home Address confirmed as: [address] [place] [address] Social & Family Supports: All names listed [...] MEDICAID [place] Prescription Coverage: Yes Preferred Pharmacy: [id number] [place], [place] - [address] [facility] [address] [facility] [address] [facility] - [place], [place] - [address] [facility] [address] [address] [facility] [address] [employer] [address] - [place], [place] - [address] [facility] [address] [place] Status: Patient is a : Primary Care Provider: Lora Parekh MD [phone] Patient/Caregiver Goals of Treatment: recovery post surgery Potential Needs for Transition of Care: home health care (patient uses O2 at night, has concentration at home, [employer] is the vendor.) Agency Referrals: This is resumption of care referral, upon completion of hospital course patient is anticipated to resume services with [facility] PHONE: [phone] FAX: [phone] RS please submit referral along with all [...] planning. Office of Care Management Surgery Team Filter Assembler [email or web address] Pager [phone] Op Note - Lora Vivas MD - 02/19/2022 6:04 AM EDT [facility] Operative Note Patient Name: December : [id number] MR#: [id number] Case Date: 02/19/2022 Surgeon: Surgeon(s) and Role: [...] Visit Cardiology Tameka Neal MD [facility] [address] [place] [address] (Wo rk) Scheduled Referrals Name [...] n the results section. FASCIOTOMY, LOWER LEG, Routine 02/19/2022 4:14 AM [...] POC Glucose 218 (H) 65 - 199 [facility] JOSE DAVID mg/dL [facility] LABORATORY Comment: Supplemental ranges: <140 mg/dL before meals <180 mg/dL all other times of the day Specimen Anatomical Collection Method Collection Time Receive d Time (Source) Location / / Volume Laterality Blood 02/24/2022 10:24 02/24/2022 AM EDT 10:24 AM EDT Lora Vivas MD POINT OF CARE TEST ORDERABLE S Performing Organization Address City/[facility]/[place] [address] (ABNORMAL) POCT Glucose (02/24/2022 7:36 AM EDT) athologist Signature POC Glucose 247 (H) 65 - 199 [place] DAV[place] mg/dL [facility] LABOR[facility]ORY Comment: Supplemental ranges: <140 mg/dL before meals <180 mg/dL all other times of the day Specimen Anatomical Collection Method Collection Time Receive d Time (Source) Location / / Volume Laterality Blood 02/24/2022 7:36 AM 2 7:36 EDT AM EDT Loar Vivas MD POINT OF CARE TEST ORDERABLE S Performing Organization Address City/State/[place] [address] POCT Glucose (02/24/2022 4:23 AM EDT) athologist Signature POC Glucose 116 65 - 199 [facility] LABOR[facility]ORY Comment: Supplemental ranges: <140 mg/dL before meals <180 mg/dL all other times of the day Specimen Anatomical Collection Method Collection Time Receive d Time (Source) Location / / Volume Laterality Blood 02/24/2022 4:23 AM 2 4:23 EDT AM EDT Lora Vivas MD POINT OF CARE TEST ORDERABLE S Performing Organization Address City/State/[place] [address] POCT Glucose (02/23/2022 11:06 PM EDT) athologist Signature POC Glucose 126 65 - 199 [place] mg/dL [facility] LABORATORY Comment: Supplemental ranges: <140 mg/dL before meals <180 mg/dL all other times of the day Specimen Anatomical Collection Method Collection Time Receive d Time (Source) Location / / Volume Laterality Blood 02/23/2022 11:06 02/23/2022 PM EDT 11:06 PM EDT Lora Vivas MD POINT OF CARE TEST ORDERABLE S Performing Organization Address City/State/[place] [address] POCT Glucose (02/23/2022 8:05 PM EDT) athologist Signature POC Glucose 168 65 - 199 [place] mg/dL [facility] LABORATORY Comment: Supplemental ranges: <140 mg/dL before meals <180 mg/dL all other times of the day Specimen Anatomical Collection Method Collection Time Receive d Time (Source) Location / / Volume Laterality Blood 02/23/2022 8:05 PM 2 8:05 EDT PM EDT Lora Vivas MD POINT OF CARE TEST ORDERABLE S Performing Organization Address City/State/[place] [address] (ABNORMAL) POCT Glucose (02/23/2022 5:32 PM EDT) athologist Signature POC Glucose 209 (H) 65 - 199 [place] mg/dL [facility] LABORATORY Comment: Supplemental ranges: <140 mg/dL before meals <180 mg/dL all other times of the day Specimen Anatomical Collection Method Collection Time Receive d Time (Source) Location / / Volume Laterality Blood 02/23/2022 5:32 PM 2 5:32 EDT PM EDT Lora Vivas MD POINT OF CARE TEST ORDERABLE S Performing Organization Address City/State/ZIP Code Phon e Number [address] POCT Glucose (02/23/2022 12:15 PM EDT) P athologist Signature POC Glucose 157 65 - 199 [place] mg/dL [facility] LABORATORY Comment: Supplemental ranges: <140 mg/dL before meals <180 mg/dL all other times of the day Specimen Anatomical Collection Method Collection Time Receive d Time (Source) Location / / Volume Laterality Blood 02/23/2022 12:15 02/23/2022 PM EDT 12:15 PM EDT Lora Vivas MD POINT OF CARE TEST ORDERABLE S Performing Organization Address City/State/ZIP Code Phon e Number [address] POCT Glucose (02/23/2022 7:37 AM EDT) athologist Signature POC Glucose 164 65 - 199 [place] mg/dL [facility] LABORATORY Comment: Supplemental ranges: <140 mg/dL before meals <180 mg/dL all other times of the day Specimen Anatomical Collection Method Collection Time Receive d Time (Source) Location / / Volume Laterality Blood 02/23/2022 7:37 AM 2 7:37 EDT AM EDT Lora Vivas MD POINT OF CARE TEST ORDERABLE S Performing Organization Address City/State/[place] [address] (ABNORMAL) POCT Glucose (02/23/2022 3:09 AM EDT) P athologist Signature POC Glucose 238 (H) 65 - 199 [place] mg/dL [facility] LABORATORY Comment: Supplemental ranges: <140 mg/dL before meals <180 mg/dL all other times of the day Specimen Anatomical Collection Method Collection Time Receive d Time (Source) Location / / Volume Laterality Blood 02/23/2022 3:09 AM 2 3:09 EDT AM EDT Lora Vivas MD POINT OF CARE TEST ORDERABLE S Performing Organization Address City/State/[place] [address] (ABNORMAL) POCT Glucose (02/22/2022 11:10 PM EDT) P athologist Signature POC Glucose 201 (H) 65 - 199 [place] mg/dL [facility] LABORATORY Comment: Supplemental ranges: <140 mg/dL before meals <180 mg/dL all other times of the day Specimen Anatomical Collection Method Collection Time Receive d Time (Source) Location / / Volume Laterality Blood 02/22/2022 11:10 02/22/2022 PM EDT 11:10 PM EDT Lora Vivas MD POINT OF CARE TEST ORDERABLE S Performing Organization Address [facility]/[place] [address] (ABNORMAL) POCT Glucose (02/22/2022 7:32 PM EDT) athologist Signature POC Glucose 254 (H) 65 - 199 [place] mg/dL [facility] LAB[facility]ORY Comment: Supplemental ranges: <140 mg/dL before meals <180 mg/dL all other times of the day Specimen Anatomical Collection Method Collection Time Receive d Time (Source) Location / / Volume Laterality Blood 02/22/2022 7:32 PM 2 7:32 EDT PM EDT Lora Vivas MD POINT OF CARE TEST ORDERABLE S Performing Organization Address City/[facility]/[place] [address] POCT Glucose (02/22/2022 4:11 PM EDT) P athologist Signature POC Glucose 187 65 - 199 [place] mg/dL [facility] LABORATORY Comment: Supplemental ranges: <140 mg/dL before meals <180 mg/dL all other times of the day Specimen Anatomical Collection Method Collection Time Receive d Time (Source) Location / / Volume Laterality Blood 02/22/2022 4:11 PM 2 4:11 EDT PM EDT Lora Vivas MD POINT OF CARE TEST ORDERABLE S Performing Organization Address City/State/[place] [address] (ABNORMAL) POCT Glucose (02/22/2022 12:11 PM EDT) athologist Signature POC Glucose 287 (H) 65 - 199 [facility] LABORATORY Comment: Supplemental ranges: <140 mg/dL before meals <180 mg/dL all other times of the day Specimen Anatomical Collection Method Collection Time Receive d Time (Source) Location / / Volume Laterality Blood 02/22/2022 12:11 02/22/2022 PM EDT 12:11 PM EDT Lora Viavs MD POINT OF CARE TEST ORDERABLE S Performing Organization Address City/State/[place] [address] POCT Glucose (02/22/2022 7:53 AM EDT) athologist Signature POC Glucose 170 65 - 199 [facility] mg/dL [facility] LABORATORY Comment: Supplemental ranges: <140 mg/dL before meals <180 mg/dL all other times of the day Specimen Anatomical Collection Method Collection Time Receive d Time (Source) Location / / Volume Laterality Blood 02/22/2022 7:53 AM 7:53 EDT AM EDT Lora Vivas MD POINT OF CARE TEST ORDERABLE S Performing Organization Address City/State/[place] [address] COVID-19 PCR (02/22/2022 7:49 AM EDT) [facility] Method Time Signature SARS-CoV-2 Not Detected Not Detected [facility] RNA [facility] LABOR[facility]ORY Comment: This result should [...] diagnosis of COVID-19 is performed using the [employer] ESCALERA S-CoV-2 Assay as authorized by the FDA Emergency Use Authorization (EUA). This EUA assay is intended for In-vitro Diagnostic (IVD) use with respiratory sp ecimens such as nasopharyngeal swabs collected from individuals during the ac chitina phase of infection. This assay is performed based on the instructions for use provided by [employer] and additional guidance provided by CDC and FDA. Testing is performed in the Clinical Genomics and [facility] Techn[facility] y Laboratory within the Department of Pathology and Laboratory Medicine at [facility], certified under the Clinical Laboratory Improvement Amendments [...] required or requested by public health a [facility], positive specimens may be sent for additional [...] fact sheets at the following FDA website: https://www.fda.gov/medical-devices/dvuronncdpg-jkjnxse-4235-njtul-16-rxiacfpus- ptl-svgzjwcotnixau-manbqql-devices/munzh-fehmhlhxccv-dpgx SARS-Cov-2 RNA Source FIRE EXTINGUISHER REPAIRER Swab [facility] LABOR[facility]ORY Specimen (Source) Anatomical Collection Method Collection Time Re ceived Time Location / / Volume Laterality Nasopharyngeal Swab 02/22/2022 7:49 02/22 AM EDT 11:54 AM EDT Comment: Symptoms->Surveillance Resulting Agency Comment Spec In Lab Johan Kessler MD MICROBIOLOGY - GENERAL ORDER ERIN Performing Organization Address City/[facility]/ZIP [facility] Phon e Number [address] (ABNORMAL) POCT Glucose (02/22/2022 3:38 AM EDT) athologist Signature POC Glucose 224 (H) 65 - 199 [facility] LABORATORY Comment: Supplemental ranges: <140 mg/dL before meals <180 mg/dL all other times of the day Specimen Anatomical Collection Method Collection Time Receive d Time (Source) Location / / Volume Laterality Blood 02/22/2022 3:38 AM 3:38 EDT AM EDT Lora Vivas MD POINT OF CARE TEST ORDERABLE S Performing Organization Address City/[facility]/[place] [address] POCT Glucose (02/21/2022 11:28 PM EDT) athologist Signature POC Glucose 164 65 - 199 [facility] Comment: Supplemental ranges: <140 mg/dL before meals <180 mg/dL all other times of the day Specimen Anatomical Collection Method Collection Time Receive d Time (Source) Location / / Volume Laterality Blood 02/21/2022 11:28 02/21/2022 PM EDT 11:28 PM EDT Lora Vivas MD POINT OF CARE TEST ORDERABLE S Performing Organization Address City/[facility]/ZIP Code Phon e Number [address] POCT Glucose (02/21/2022 8:15 PM EDT) athologist Signature POC Glucose 151 65 - 199 [place] [facility] mg/dL [facility] Comment: Supplemental ranges: <140 mg/dL before meals <180 mg/dL all other times of the day Specimen Anatomical Collection Method Collection Time Receive d Time (Source) Location / / Volume Laterality Blood 02/21/2022 8:15 PM 2 8:15 EDT PM EDT Lora Vivas MD POINT OF CARE TEST ORDERABLE S Performing Organization Address City/State/ZIP Code Phon e Number [address] POCT Glucose (02/21/2022 6:38 PM EDT) athologist Signature POC Glucose 118 65 - 199 [facility] mg/dL [facility] LAB[facility]ORY Comment: Supplemental ranges: <140 mg/dL before meals <180 mg/dL all other times of the day Specimen Anatomical Collection Method Collection Time Receive d Time (Source) Location / / Volume Laterality Blood 02/21/2022 6:38 PM 2 6:38 EDT PM EDT Lora Vivas MD POINT OF CARE TEST ORDERABLE S Performing Organization Address City/State/ZIP Code Phon e Number [address] POCT Glucose (02/21/2022 4:31 PM EDT) athologist Signature POC Glucose 77 65 - 199 [place] [facility] mg/dL [facility] Comment: Supplemental ranges: <140 mg/dL before meals <180 mg/dL all other times of the day Specimen Anatomical Collection Method Collection Time Receive d Time (Source) Location / / Volume Laterality Blood 02/21/2022 4:31 PM 2 4:31 EDT PM EDT Johan Kessler MD POINT OF CARE TEST ORDERABLE S Performing Organization Address City/State/[place] [address] POCT Glucose (02/21/2022 11:33 AM EDT) athologist Signature POC Glucose 116 65 - 199 [facility] mg/dL [facility] Comment: Supplemental ranges: <140 mg/dL before meals <180 mg/dL all other times of the day Specimen Anatomical Collection Method Collection Time Receive d Time (Source) Location / / Volume Laterality Blood 02/21/2022 11:33 02/21/2022 AM EDT 11:33 AM EDT Johan Kessler MD POINT OF CARE TEST ORDERABLE S Performing Organization Address City/[facility]/ZIP Code Phon e Number [address] Gold Tube HOLD (02/21/2022 11:00 AM EDT) athologist Signature Gold Hold Sample in [facility] LABORATORY Specimen Anatomical Collection Method Collection Time Receive d Time (Source) Location / / Volume Laterality Blood No Charge / 02/21/2022 11:00 02/21/2022 Unknown AM EDT 11:12 AM EDT Jorge Luis Hdz MD CHEMISTRY ORDERABLES Performing Organization Address City/[facility]/ZIP Code Phon e Number [address] Gold Tube HOLD (02/21/2022 11:00 AM EDT) athologist Signature Gold Hold Sample in [facility] LABORATORY Specimen Anatomical Collection Method Collection Time Receive d Time (Source) Location / / Volume Laterality Blood No Charge / 02/21/2022 11:00 02/21/2022 Unknown AM EDT 11:12 AM EDT Jorge Luis Hdz MD CHEMISTRY ORDERABLES Performing Organization Address City/[facility]/[place] [address] Surgical Pathology Report (02/21/2022 10:12 AM EDT) Component Value Ref Test Analysis Performed At [facility] gist Range Method Time Signature Surgical [id number] ? Location: 3WST; 0318; A [facility] Report The signing pathologist has (i) [...] Menezes Verified: ??02/24/2022 16:17 ??Pathologist Performed at: ??-[facility] Dept. of [place]ology, [place], [place] SPECIMEN(S) SUBMITTED A - Left lower leg, deep compartment muscle CLINICAL INFORMATION [NOT PROVIDED] see ??[id number] as well. SPECIMEN PROCESSING A - Labeled/Fixative: [...] Organization Address City/State/ZIP Code [place] [address] [facility] [address] Specimen to Pathology (02/21/2022 10:12 AM EDT) Specimen Anatomical Collection Method Collection Time Receive d Time (Source) Location / / Volume Laterality AP Specimen 02/21/2022 10:12 02/21/2022 AM EDT 10:12 AM EDT Narrative [facility] LABORAT ORY - 02/21/2022 10:12 AM EDT Specimen requisition ordered. ??Separate Pathology report to follow Johan Kessler MD PATHOLOGY/CYTOLOGY ORDERABLE S Performing Organization Address City/State/ZIP Code Phon e Number [address] POCT Glucose (02/21/2022 9:13 AM EDT) athologist Signature POC Glucose 121 65 - 199 [facility] mg/dL [facility] Comment: Supplemental ranges: <140 mg/dL before meals <180 mg/dL all other times of the day Specimen Anatomical Collection Method Collection Time Receive d Time (Source) Location / / Volume Laterality Blood 02/21/2022 9:13 AM 2 9:13 EDT AM EDT Johan Kessler MD POINT OF CARE TEST ORDERABLE S Performing Organization Address City/State/[place] [address] POCT Glucose (02/21/2022 5:11 AM EDT) athologist Signature POC Glucose 194 65 - 199 [facility] Comment: Supplemental ranges: <140 mg/dL before meals <180 mg/dL all other times of the day Specimen Anatomical Collection Method Collection Time Receive d Time (Source) Location / / Volume Laterality Blood 02/21/2022 5:11 AM 2 5:11 EDT AM EDT Johan Kessler MD POINT OF CARE TEST ORDERABLE S Performing Organization Address City/State/[place] [address] Hemoglobin A1c (02/21/2022 3:41 AM EDT) athologist Signature Hemoglobin A1C 5.6 4.3 - 5.6 [facility] % [facility] Comment: Reference Range: 4.3 - 5.6% [...] Mellitus, Diabetes Care 2013; 36: Suppl. 1, S67-67 Est Avg Gluc 114 mg/dL [facility] LABORATORY Comment: eAG equivalents for HbA1c percentages: HbA1c(%) ?eAG(mg/dL) 6.0 ?126 6.5 ?140 7.0 ?154 7.5 ?169 8.0 ?183 8.5 ?197 9.0 ?212 9.5 ?226 10.0 ? 240 Limitations: The eAG calculation has not been validated on women, individuals below 18 years old and above 70 years old, and individuals with hemoglobinopathies. Additional resources are available on e ADA website. Arnel TSE, Louis J, Anthony R, et al. ??Tr anslating the A1C assay into estimated average glucose values. ??Diabetes Care 2008:31(8):7455-6057. Specimen Anatomical Collection Method Collection Time Receive d Time (Source) Location / / Volume Laterality Blood Venous Draw / 02/21/2022 3:41 AM 02/22/20 22 Unknown EDT 10:02 AM EDT Resulting Agency Comment Spec In Lab Alka Schaffer APRN CHEMISTRY ORDERABLES Performing Organization Address City/State/ZIP [place] [address] (ABNORMAL) Differential, Automated (02/21/2022 3:41 AM EDT) [facility] gist Method Time Signature Neutrophils % 51.7 % [facility] LABORATORY Neutr Abs (ANC) 4.44 1.70 - [facility] 6.10 [facility] x10(3)/[facility] LABORATORY Lymphocytes % 30.7 % [facility] LABORATORY Lymphocytes Abs 2.6 0.9 - 3.2 [facility] x10(3)/[facility] LABORATORY Monocytes % 9.2 % [facility] LABORATORY Monocyte Abs 0.8 0.3 - 0.9 [facility] x10(3)/[facility] LABORATORY Eosinophils % 7.7 % [facility] LABORATORY Eosinophils Abs 0.7 (H) 0.0 - 0.4 [facility] x10(3)/[facility] LABORATORY Basophils % 0.5 % [facility] LABORATORY Basophils Abs 0.0 0.0 - 0.1 [facility] x10(3)/[facility] LABORATORY Immature Gran % 0.20 % [facility] LABORATORY Comment: Immature granulocytes(IG's)percentage an d absolute count will include metamyelocytes, myelocytes, and promyelo cytes. Blood smears from CBCs yielding IG's will be scanned manually for concor dance. If this scan disagrees with the automated IG or if promyelocytes are not ed, a manual differential will be performed. Anaya Gran Abs 0.02 0.00 - 0.04 x10(3)/[facility] LABORATORY Specimen Anatomical Collection Method Collection Time Receive d Time (Source) Location / / Volume Laterality Blood 02/21/2022 3:41 AM 2 3:51 EDT AM EDT Resulting Agency Comment Spec In Lab Jorge Luis Hdz MD HEMATOLOGY ORDERABLES Performing Organization Address City/State/ZIP [place] [address] (ABNORMAL) Hemogram (02/21/2022 3:41 AM EDT) Analysis Performed At Patho logist Time Signature WBC 8.6 4.0 - 9.5 [facility] x10(3)/[facility] LABORATORY RBC 4.07 4.00 - [facility] 5.21 [facility] x10(6)/[facility] LABORATORY Hemoglobin 12.1 11.7 - [facility] 15.5 g/dL [facility] LABORATORY Hematocrit 37.5 35.7 - [facility] 45.8 % [facility] LABORATORY MCV 92.1 82.6 - [facility] 94.4 [facility] LABORATORY MCH 29.7 27.1 - [place] [facility] 32.0 pg [facility] LABORATORY MCHC 32.3 31.7 - [facility] 35.0 g/dL [facility] LABORATORY Platelets 260 145 - 357 [place] JOSE DAVID x10(3)/[facility] LABORATORY RDWSD 49.5 (H) 37.0 - [place] [facility] 46.0 [facility] LABORATORY RDWCV 14.6 (H) 11.5 - [place] 14.1 % [facility] LABORATORY MPV 10.4 7.6 - 12.9 [place] [facility] LABORATORY nRBC % Auto 0.0 % [facility] LABORATORY nRBC Abs Auto 0.000 0.000 - [place] 0.000 [facility] x10(3)/[facility] LABORATORY Specimen Anatomical Collection Method Collection Time Receive d Time (Source) Location / / Volume Laterality Blood 02/21/2022 3:41 AM 2 3:51 EDT AM EDT Resulting Agency Comment Spec In Lab Jorge Luis Hdz MD HEMATOLOGY ORDERABLES Performing Organization Address City/State/ZIP Code Phon e Number [address] Phosphorus (02/21/2022 3:41 AM EDT) P athologist Signature Phosphorus 2.7 2.5 - 4.5 [facility] mg/dL [facility] LABORATORY Specimen Anatomical Collection Method Collection Time Receive d Time (Source) Location / / Volume Laterality Blood 02/21/2022 3:41 AM 2 3:51 EDT AM EDT Resulting Agency Comment Spec In Lab Johan Kessler MD CHEMISTRY ORDERABLES Performing Organization Address City/[facility]/ZIP Code Phon e Number [address] Magnesium (02/21/2022 3:41 AM EDT) P athologist Signature Magnesium 0.92 0.69 - 1.07 [place] [facility] mmol/[facility] LABORATORY Specimen Anatomical Collection Method Collection Time Receive d Time (Source) Location / / Volume Laterality Blood 02/21/2022 3:41 AM 2 3:51 EDT AM EDT Resulting Agency Comment Spec In Lab Johan Kessler MD CHEMISTRY ORDERABLES Performing Organization Address City/State/ZIP [place] [address] (ABNORMAL) Basic Metabolic Panel (non-fasting) (02/21/2022 3:41 AM EDT) athologist Signature Glucose Lvl 326 (H) 65 - 199 [facility] mg/dL [facility] LABORATORY Comment: Diabetes: >=200 mg/dL plus symp toms BUN 11 8 - 18 mg/dL [facility] LABORATORY Creatinine 0.66 (L) 0.70 - 1.20 mg/dL [facility] LABORATORY Sodium 137 135 - 145 mmol/L [facility] LABORATORY Potassium 3.9 3.5 - 5.0 mmol/L [facility] LAB[facility]ORY Comment: Please note: ??Patients with WBC >100,00 0 may have falsely elevated Potassium levels. ??For accurate Potassium quantif ication in these patients send serum separator tube (gold top) for subsequent determinations. ??Contact the Clinical Chemistry Laboratory if there are any qu estions. Chloride 106 98 - 107 mmol/L [facility] LABORATORY CO2 22 22 - 31 mmol/L [facility] LABORATORY Anion Gap 9 5 - 15 mmol/L [facility] LABORATORY Calcium 8.3 (L) 8.5 - 10.5 mg/dL [facility] LABORATORY Estimated GFR 106 >=60 mL/min/1.73 m?? [facility] LABORATORY Comment: This patient? s [...] Organization Address City/State/[place] [address] (ABNORMAL) POCT Glucose (02/21/2022 3:11 AM EDT) P athologist Signature POC Glucose 318 (H) 65 - 199 [facility]ORY Comment: Supplemental ranges: <140 mg/dL before meals <180 mg/dL all other times of the day Specimen Anatomical Collection Method Collection Time Receive d Time (Source) Location / / Volume Laterality Blood 02/21/2022 3:11 AM 2 3:11 EDT AM EDT Johan Kessler MD POINT OF CARE TEST ORDERABLE S Performing Organization Address City/[facility]/[place] [address] (ABNORMAL) POCT Glucose (02/21/2022 3:09 AM EDT) P athologist Signature POC Glucose 319 (H) 65 - 199 [facility] JO[facility] DAVID mg/dL [facility] LAB[facility]ORY Comment: Supplemental ranges: <140 mg/dL before meals <180 mg/dL all other times of the day Specimen Anatomical Collection Method Collection Time Receive d Time (Source) Location / / Volume Laterality Blood 02/21/2022 3:09 AM 2 3:09 EDT AM EDT Authorizing Provider Result Mor Kessler MD POINT OF CARE TEST ORDERABLE S Performing Organization Address City/State/[place] [address] (ABNORMAL) POCT Glucose (02/20/2022 11:56 PM EDT) athologist Signature POC Glucose 245 (H) 65 - 199 [facility] JOSE DAVID mg/dL [facility] LAB[facility]ORY Comment: Supplemental ranges: <140 mg/dL before meals <180 mg/dL all other times of the day Specimen Anatomical Collection Method Collection Time Receive d Time (Source) Location / / Volume Laterality Blood 02/20/2022 11:56 02/20/2022 PM EDT 11:56 PM EDT Johan Kessler MD POINT OF CARE TEST ORDERABLE S Performing Organization Address City/State/[place] [address] POCT Glucose (02/20/2022 8:22 PM EDT) athologist Signature POC Glucose 191 65 - 199 [facility]ORY Comment: Supplemental ranges: <140 mg/dL before meals <180 mg/dL all other times of the day Specimen Anatomical Collection Method Collection Time Receive d Time (Source) Location / / Volume Laterality Blood 02/20/2022 8:22 PM 2 8:22 EDT PM EDT Authorizing Provider Result Mor Kessler MD POINT OF CARE TEST ORDERABLE S Performing Organization Address City/State/[place] [address] (ABNORMAL) POCT Glucose (02/20/2022 6:04 PM EDT) athologist Signature POC Glucose 240 (H) 65 - 199 [place] [facility] mg/dL [facility] LAB[facility]ORY Comment: Supplemental ranges: <140 mg/dL before meals <180 mg/dL all other times of the day Specimen Anatomical Collection Method Collection Time Receive d Time (Source) Location / / Volume Laterality Blood 02/20/2022 6:04 PM 2 6:04 EDT PM EDT Authorizing Provider Result Mor Kessler MD POINT OF CARE TEST ORDERABLE S Performing Organization Address City/State/[place] [address] (ABNORMAL) POCT Glucose (02/20/2022 4:11 PM EDT) athologist Signature POC Glucose 270 (H) 65 - 199 [place] [facility] mg/dL [facility] LAB[facility]ORY Comment: Supplemental ranges: <140 mg/dL before meals <180 mg/dL all other times of the day Specimen Anatomical Collection Method Collection Time Receive d Time (Source) Location / / Volume Laterality Blood 02/20/2022 4:11 PM 2 4:11 EDT PM EDT Johan Kessler MD POINT OF CARE TEST ORDERABLE S Performing Organization Address City/State/[place] [address] POCT Glucose (02/20/2022 12:30 PM EDT) athologist Signature POC Glucose 130 65 - 199 [facility]ORY Comment: Supplemental ranges: <140 mg/dL before meals <180 mg/dL all other times of the day Specimen Anatomical Collection Method Collection Time Receive d Time (Source) Location / / Volume Laterality Blood 02/20/2022 12:30 02/20/2022 PM EDT 12:30 PM EDT Johan Kessler MD POINT OF CARE TEST ORDERABLE S Performing Organization Address City/State/[place] [address] (ABNORMAL) POCT Glucose (02/20/2022 7:07 AM EDT) athologist Signature POC Glucose 200 (H) 65 - 199 [facility] Comment: Supplemental ranges: <140 mg/dL before meals <180 mg/dL all other times of the day Specimen Anatomical Collection Method Collection Time Receive d Time (Source) Location / / Volume Laterality Blood 02/20/2022 7:07 AM 2 7:07 EDT AM EDT Lora Vivas MD POINT OF CARE TEST ORDERABLE S Performing Organization Address City/State/ZIP Code Phon e Number [address] Phosphorus (02/20/2022 6:09 AM EDT) athologist Signature Phosphorus 3.3 2.5 - 4.5 [facility] LABOR[facility]ORY Specimen Anatomical Collection Method Collection Time Receive d Time (Source) Location / / Volume Laterality Blood 02/20/2022 6:09 AM 2 6:25 EDT AM EDT Resulting Agency Comment Spec In Lab Lora Vivas MD CHEMISTRY ORDERABLES Performing Organization Address City/[facility]/ZIP Code Phon e Number [address] Magnesium (02/20/2022 6:09 AM EDT) athologist Signature Magnesium 0.99 0.69 - 1.07 [facility]/L [facility] LABORATORY Specimen Anatomical Collection Method Collection Time Receive d Time (Source) Location / / Volume Laterality Blood 02/20/2022 6:09 AM 2 6:25 EDT AM EDT Resulting Agency Comment Spec In Lab Lora Vivas MD CHEMISTRY ORDERABLES Performing Organization Address City/State/ZIP Code Phon e Number [address] (ABNORMAL) Basic Metabolic Panel (non-fasting) (02/20/2022 6:09 AM EDT) athologist Signature Glucose Lvl 200 (H) 65 - 199 [facility] mg/dL [facility] LABORATORY Comment: Diabetes: >=200 mg/dL plus symp toms BUN 12 8 - 18 mg/dL [facility] LABORATORY Creatinine 0.57 (L) 0.70 - 1.20 mg/dL [facility] LABORATORY Sodium 141 135 - 145 mmol/L [facility]ORY Potassium 3.8 3.5 - 5.0 mmol/L [facility] Comment: Please note: ??Patients with WBC >100,00 0 may have falsely elevated Potassium levels. ??For accurate Potassium quantif ication in these patients send serum separator tube (gold top) for subsequent determinations. ??Contact the Clinical Chemistry Laboratory if there are any qu estions. Chloride 109 (H) 98 - 107 mmol/L [facility] LABORATORY CO2 23 22 - 31 mmol/L [facility] LABORATORY Anion Gap 9 5 - 15 mmol/L [facility] LABORATORY Calcium 8.2 (L) 8.5 - 10.5 mg/dL [facility]ORY Estimated GFR 111 >=60 mL/min/1.73 m?? [facility] LABORATORY Comment: This patient? s [...] Organization Address City/State/ZIP Code Phon e Number [address] POCT Glucose (02/19/2022 11:34 PM EDT) P athologist Signature POC Glucose 159 65 - 199 [facility] mg/dL [facility] LABORATORY Comment: Supplemental ranges: <140 mg/dL before meals <180 mg/dL all other times of the day Specimen Anatomical Collection Method Collection Time Receive d Time (Source) Location / / Volume Laterality Blood 02/19/2022 11:34 02/19/2022 PM EDT 11:34 PM EDT Lora Vivas MD POINT OF CARE TEST ORDERABLE S Performing Organization Address City/State/ZIP Code Phon e Number [address] POCT Glucose (02/19/2022 5:14 PM EDT) athologist Signature POC Glucose 82 65 - 199 [facility] LABORATORY Comment: Supplemental ranges: <140 mg/dL before meals <180 mg/dL all other times of the day Specimen Anatomical Collection Method Collection Time Receive d Time (Source) Location / / Volume Laterality Blood 02/19/2022 5:14 PM 5:14 EDT PM EDT Lora Vivas MD POINT OF CARE TEST ORDERABLE S Performing Organization Address City/State/ZIP Code Phon e Number [address] POCT Glucose (02/19/2022 10:53 AM EDT) athologist Signature POC Glucose 94 65 - 199 [facility] mg/dL [facility] LABORATORY Comment: Supplemental ranges: <140 mg/dL before meals <180 mg/dL all other times of the day Specimen Anatomical Collection Method Collection Time Receive d Time (Source) Location / / Volume Laterality Blood 02/19/2022 10:53 02/19/2022 AM EDT 10:53 AM EDT Lora Vivas MD POINT OF CARE TEST ORDERABLE S Performing Organization Address City/State/[place] [address] COVID-19 PCR (02/19/2022 7:06 AM EDT) [facility] Method Time Signature SARS-CoV-2 Not Detected Not Detected HER[place]DA RNA PCR [facility] LABORATORY Comment: This result should [...] using the Simplex[employer] COVID-19 Direct Assay by [email or web address] as authorized by the FDA issued Emergency Use Authorization (EUA). This assay is intended for In-vitro Diagnostic (IVD) use with nasopharyngeal swabs collected from individuals meeting the CDC criteria for testing. e assay is performed based on the instructions for use and additional guid ance provided by the FDA. 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 Swab [facility] Specimen (Source) Anatomical Collection Method Collection Time Re ceived Time Location / / Volume Laterality Nasopharyngeal Swab 02/19/2022 7:06 02/19 AM EDT 8:17 AM EDT Comment: Symptoms->Surveillance Resulting Agency Comment Spec In Lab Lora Vivas MD MICROBIOLOGY - GENERAL ORDER ERIN Performing Organization Address City/State/ZIP Code Phon e Number [address] POCT Glucose (02/19/2022 6:21 AM EDT) P athologist Signature POC Glucose 77 65 - 199 HERMELINDA JOSE DAVID mg/dL [facility] LABORATORY Comment: Supplemental ranges: <140 mg/dL before meals <180 mg/dL all other times of the day Specimen Anatomical Collection Method Collection Time Receive d Time (Source) Location / / Volume Laterality Blood 02/19/2022 6:21 AM 2 6:21 EDT AM EDT Billie Rubio MD POINT OF CARE TEST ORDERABLE S Performing Organization Address City/[facility]/[place] [address] Anaerobic Culture (02/19/2022 6:00 AM EDT) [facility] Webymaster Method Time Signature Anaerobic No anaerobic [facility] Culture organisms [facility] LABORATORY Specimen Anatomical Collection Method Collection Time Receive d Time (Source) Location / / Volume Laterality Leg 02/19/2022 6:00 AM 2 9:30 EDT AM EDT Comment: Left leg anterior lateral nicky rtment culture Resulting Agency Comment Spec In Lab Lora Vivas MD MICROBIOLOGY - GENERAL ORDER ERIN Performing Organization Address City/State/[place] [address] (ABNORMAL) Tissue culture (02/19/2022 6:00 AM EDT) Component Value Ref Test Analysis Performed At [facility] Web[facility] Range Method Time Signature Tissue Clostridium perfringens isolated from broth culture. HERMELINDA Culture No growth on original plates. [place] () [facility] LABORATORY Gram Stain No Neutrophils seen. HERMELINDA No microorganisms seen. [facility] OCK (A) [facility] LABORATORY Organism Clostridium HERMELINDA perfringens (A) [facility] LABORATORY Specimen Anatomical Collection Method [...] - GENERAL ORDER ERIN Performing Organization Address City/[facility]/[place] [address] Anaerobic Culture (02/19/2022 6:00 AM EDT) [facility] Method Time Signature Anaerobic No anaerobic [facility] organisms [facility] LABORATORY Specimen Anatomical Collection Method Collection Time Receive d Time (Source) Location / / Volume Laterality Leg 02/19/2022 6:00 AM 2 9:29 EDT AM EDT Comment: Left leg medial calf compartmen t culture Resulting Agency Comment Spec In Lab Lora Vivas MD MICROBIOLOGY - GENERAL ORDER ERIN Performing Organization Address City/[facility]/[place] [address] Tissue culture (02/19/2022 6:00 AM EDT) Component Value Ref Test Analysis Performed At [facility] Range Method Time Signature Tissue No growth HERMELINDA Culture [facility] LABORATORY Gram Stain Few Neutrophils seen HERMELINDA No microorganisms seen. [facility] LABORATORY Specimen Anatomical Collection Method Collection Time Receive d Time (Source) Location / / Volume Laterality Leg 02/19/2022 6:00 AM 2 9:29 EDT AM EDT Comment: Left leg medial calf compartmen t culture Resulting Agency Comment Spec In Lab Lora Vivas MD MICROBIOLOGY - GENERAL ORDER ERIN Performing Organization Address City/[facility]/[place] [address] Specimen to Pathology (02/19/2022 5:56 AM EDT) Specimen Anatomical Collection Method Collection Time Receive d Time (Source) Location / / Volume Laterality AP Specimen 02/19/2022 5:56 AM 2 5:56 EDT AM EDT Narrative [facility] LABORAT ORY - 02/19/2022 5:56 AM EDT Specimen requisition ordered. ??Separate Pathology report to follow Lora Vivas MD PATHOLOGY/CYTOLOGY ORDERABLE S Performing Organization Address City/State/ZIP Code Phon e Number HERMELINDA [place] [address] Surgical Pathology Report (02/19/2022 5:49 AM EDT) Component Value Ref Test Analysis Performed At [facility] gist Range Method Time Signature Surgical [id number] ? Location: 3WST; 0318; A [facility] Pathology [place] Report The signing pathologist has (i) examined the relevant preparation(s) for the [facility] specimen(s) and (ii) rendered or confirmed [...] Menezes Verified: ??02/24/2022 15:59 ??Pathologist Performed at: ??-[facility] Dept. of [place]ology, [place], [place] SPECIMEN(S) SUBMITTED A - Left leg, [...] MD PATHOLOGY/CYTOLOGY ORDERABLE S Performing Organization Address City/[facility]/[place] [address] Specimen to Pathology (02/19/2022 5:49 AM EDT) Specimen Anatomical Collection Method Collection Time Receive d Time (Source) Location / / Volume Laterality AP Specimen 02/19/2022 5:49 AM 2 5:49 EDT AM EDT Narrative [facility] LABORAT ORY - 02/19/2022 5:49 AM EDT Specimen requisition ordered. ??Separate Pathology report to follow Lora Vivas MD PATHOLOGY/CYTOLOGY ORDERABLE S Performing Organization Address City/[facility]/[place] [address] Specimen to Pathology (02/19/2022 5:49 AM EDT) Specimen Anatomical Collection Method Collection Time Receive d Time (Source) Location / / Volume Laterality AP Specimen 02/19/2022 5:49 AM 2 5:49 EDT AM EDT [facility]ative [facility] 02/19/2022 5:49 AM EDT Specimen requisition ordered. ??Separate Pathology report to follow Lora Vivas MD PATHOLOGY/CYTOLOGY ORDERABLE S Performing Organization Address City/[facility]/[place] [address] L-Lactate2 Whole Blood (02/19/2022 5:09 AM EDT) athologist Signature Lactate WB 1.6 0.5 - 2.2 [facility] mmol/L [facility] LABORATORY Specimen Anatomical Collection Method Collection Time Receive d Time (Source) Location / / Volume Laterality Blood 02/19/2022 5:09 AM 2 5:09 EDT AM EDT Billie Rubio MD CHEMISTRY ORDERABLES Performing Organization Address City/[facility]/ZIP Code Phon e Number [address] Scan, Peripheral Blood (02/19/2022 3:45 AM EDT) [facility] Method Time Signature Plat Estimate Normal [facility] LABORATORY RBC Morphology Normal [facility] LABORATORY Toxic Present [facility] LABORATORY Specimen Anatomical Collection Method Collection Time Receive d Time (Source) Location / / Volume Laterality Blood 02/19/2022 3:45 AM 2 4:06 EDT AM EDT Resulting Agency Comment Spec In Lab Chica Hinson MD HEMATOLOGY ORDERABLES Performing Organization Address City/[facility]/[place] [address] CK (02/19/2022 3:45 AM EDT) athologist Signature CK, Total 75 0 - 160 [facility] unit/[facility] LABORATORY Specimen Anatomical Collection Method Collection Time Receive d Time (Source) Location / / Volume Laterality Blood Venous Draw / 02/19/2022 3:45 AM 02/20/20 22 4:10 Unknown EDT AM EDT Resulting Agency Comment Spec In Lab Chica Hinson MD CHEMISTRY ORDERABLES Performing Organization Address City/[facility]/ZIP Code Phon e Number [address] (ABNORMAL) Differential, Automated (02/19/2022 3:45 AM EDT) [facility] Method Time Signature Neutrophils % 46.6 % [facility] LABORATORY Neutr Abs (ANC) 4.91 1.70 - [place] [address] [facility] x10(3)/[facility] LABORATORY Lymphocytes % 39.0 % [facility] LABORATORY Lymphocytes Abs 4.1 (H) 0.9 - 3.2 [facility] x10(3)/[facility] LABORATORY Monocytes % 10.3 % [facility] LABORATORY Monocyte Abs 1.1 (H) 0.3 - 0.9 [facility] x10(3)/[facility] LABORATORY Eosinophils % 3.4 % [facility] LABORATORY Eosinophils Abs 0.4 0.0 - 0.4 [facility] x10(3)/[facility] LABORATORY Basophils % 0.5 % [facility] LABORATORY Basophils Abs 0.0 0.0 - 0.1 [facility] x10(3)/[facility] LABORATORY Immature Gran % 0.20 % [facility] LABORATORY Comment: Immature granulocytes(IG's)percentage an d absolute count will include metamyelocytes, myelocytes, and promyelo cytes. Blood smears from CBCs yielding IG's will be scanned manually for concor dance. If this scan disagrees with the automated IG or if promyelocytes are not ed, a manual differential will be performed. Anaya Gran Abs 0.02 0.00 - 0.04 x10(3)/[facility] MAR Y [facility] LABORATORY Specimen Anatomical Collection Method Collection Time Receive d Time (Source) Location / / Volume Laterality Blood 02/19/2022 3:45 AM 2 4:06 EDT AM EDT Resulting Agency Comment Spec In Lab Chica Hinson MD HEMATOLOGY ORDERABLES Performing Organization Address City/State/ZIP [place] [address] (ABNORMAL) Hemogram (02/19/2022 3:45 AM EDT) Analysis Performed At Patho logist Time Signature WBC 10.5 (H) 4.0 - 9.5 [facility] x10(3)/[facility] LABORATORY RBC 4.83 4.00 [facility] 5[facility]21 [facility] x10(6)/[facility] LABORATORY Hemoglobin 14.2 11.7 - HERMELINDA JOSE DAVID 15.5 g/dL [facility] LABORATORY Hematocrit 42.7 35.7 - [place]DA [place] 45.8 % [facility] LABORATORY MCV 88.4 82.6 - [place]ELINDA [place] 94.4 [facility] LABORATORY MCH 29.4 27.1 - [place]ELINDA [place] 32.0 pg [facility] LABORATORY MCHC 33.3 31.7 - HERMELINDA [place] 35.0 g/dL [facility] LABORATORY Platelets 311 145 - 357 [facility] x10(3)/[facility] LABORATORY RDWSD 46.9 (H) 37.0 - HERMELINDA [place] 46.0 [facility] LABORATORY RDWCV 14.6 (H) 11.5 - [facility] JOSE DAVID 14.1 % [facility] LABORATORY MPV 10.2 7.6 - 12.9 [facility] LABORATORY nRBC % Auto 0.0 % [facility] LABORATORY nRBC Abs Auto 0.000 0.000 - HERMELINDA [place] 0.000 [facility] x10(3)/[facility] LABORATORY Specimen Anatomical Collection Method Collection Time Receive d Time (Source) Location / / Volume Laterality Blood 02/19/2022 3:45 AM 2 4:06 EDT AM EDT Resulting Agency Comment Spec In Lab Chica Hinson MD HEMATOLOGY ORDERABLES Performing Organization Address City/[facility]/ZIP [place] [address] APTT (02/19/2022 3:45 AM EDT) P athologist Signature PTT 31 25 - 37 sec [facility] LABORATORY Comment: The PTT is [...] Address City/State/ZIP Code [place] [address] Prothrombin Time (02/19/2022 3:45 AM EDT) P athologist Signature PT 11.5 9.4 - 12.5 [facility] LABORATORY INR 1.0 [facility] LABORATORY Comment: An INR <2.0 [...] Organization Address City/State/[place] [address] (ABNORMAL) CRP, acute inflammation (02/19/2022 3:45 AM EDT) P athologist Signature CRP 5.6 (H) <=4.9 mg/L [facility] LABORATORY Specimen Anatomical Collection Method Collection Time Receive d Time (Source) Location / / Volume Laterality Blood 02/19/2022 3:45 AM 2 4:06 EDT AM EDT Resulting Agency Comment Spec In Lab Billie Rubio MD CHEMISTRY ORDERABLES Performing Organization Address City/State/[place] [address] Sedimentation rate (02/19/2022 3:45 AM EDT) P athologist Signature Sed Rate 26 2 - 37 [facility] mm/hr [facility] LABORATORY Comment: Effective September 11, 2019 new [...] Organization Address City/State/ZIP [place] [address] (ABNORMAL) Basic Metabolic Panel (non-fasting) (02/19/2022 3:45 AM EDT) P athologist Signature Glucose Lvl 83 65 - 199 [facility] mg/dL [facility] LABORATORY Comment: Diabetes: >=200 mg/dL plus symp toms BUN 25 (H) 8 - 18 mg/dL [facility] LABORATORY Creatinine 0.78 0.70 - 1.20 mg/dL [facility] LABORATORY Sodium 142 135 - 145 mmol/L [facility] LABORATORY Potassium 3.1 (L) 3.5 - 5.0 mmol/L [facility] LABORATORY Comment: result rechecked-WV Please note: ??Patients with WBC >100,00 0 may have falsely elevated Potassium levels. ??For accurate Potassium quantif ication in these patients send serum separator tube (gold top) for subsequent determinations. ??Contact the Clinical Chemistry Laboratory if there are any qu estions. Chloride 103 98 - 107 mmol/L [facility] LABORATORY CO2 27 22 - 31 mmol/L [facility] LABORATORY Anion Gap 12 5 - 15 mmol/L [facility] LABORATORY Calcium 9.0 8.5 - 10.5 mg/dL [facility] LABORATORY Estimated GFR 91 >=60 mL/min/1.73 m?? [facility] LABORATORY Comment: This patient? s [...] Organization Address City/State/[place] [address] Film Library- Storage Only [...] 81 mg, Oral, DAILY, First dose on Mon02/19/22 at 0945, Until Discontinued, Routine Given 02/23/2022 10:11 AM EDT 81 mg Given 02/22/2022 9:58 AM EDT 81 mg budesonide-formoteroL (Symbicort) Given 02/24/2022 9:21 AM EDT 1 Inhalation 160-4.5 mcg/actuation inhaler 1 Inhalation 1 Inhalation, Inhalation, 2 TIMES DAILY, First dose on Mon02/19/22 at 0945, Until Discontinued Given 02/23/2022 10:09 PM EDT 1 Inhalation Given 02/23/2022 10:11 AM EDT 1 Inhalation BUpivacaine-EPINEPHrine Given 02/21/2022 10:26 AM 20 mLs 19- Surgical Site (Marcaine-epiNEPHrine) 0.25 EDT %-1:200,000 injection ONCE PRN, Starting on 02/21/22 at 1026, Until Mon02/24/22 at 1434, Intra-Operative (Intra-Procedure), Routine cephALEXin (Keflex) capsule 500 mg Given 02/24/2022 [...] EVERY 8 HOURS PRN, Startin g on Mon02/19/22 at 0921, Until Toya 02/24/22 at 1434, [...] Estrella Crowell RN)1217 (Given - Provider: Keisha Gutierrez, DEVAN)1738 (Given - Provider: Keisha Gutierrez, DEVAN) 0005 (Given - Provider: Theresa Alvares, DEVAN)0617 (Given - Provider: Theresa Alvares, DEVAN) 1,000 mg, Oral, EVERY 6 HOURS SCHEDULED, First dose on 02/19/22 at 1200, Until Discontinued, Should be used concomitantly if other analgesics are ordered. Maximum dose of acetaminophen is 4000 mg from all sources in 24 hours., Routine aspirin EC tablet 81 mg 0958 (Given - Provider: Cyndi Machado RN) 1011 (Given - Provider: Hermelinda Lamas RN) 0922 (Given - Provider: Hermelinda Lamas, DEVAN) 81 mg, Oral, DAILY, First dose on Sat at 0945, Until Discontinued, Routine budesonide-formoteroL (Symbicort) 160-4.5 mcg/actuatio n inhaler 1 Inhalation 1001 (Given - Provider: Cyndi Machado RN)1947 (Given - Provider: Estrella Crowell RN) 1011 (Given - Provider: Hermelinda Lamas, DEVAN)2209 (Given - Provider: Theresa Alvares, DEVAN) 0921 (Given - Provider: Hermelinda Lamas, DEVAN) 1 Inhalation, Inhalation, 2 TIMES DAILY, First dose on 02/19/22 at 0945, Until Discontinued ceFEPime (Maxipime) 1g vial attach to so dium chloride 0.9% 100 mL Mini-Bag Plus (CANCELED) 0604 (New Bag - Provider: Francine lee RN)0634 (Stopped - Provider: Francine Khoury RN) 1 g, Intravenous, EVERY 8 HOURS, First d ose (after last reorder) on 02/20/22 at 0700, Until Discontinued, Administer over 30 [...] 1829 (Given - Provi ayad: Cyndi Machado RN)2157 (Given - Provider: Estrella Crowell RN) 1010 (Given - Provider: Hermelinda Lamas, DEVAN)1300 (Given - Provider: Keisha Gutierrez, DEVAN)1700 (Given - Provider: Keisha Gutierrez, DEVAN)2156 (Given - Provider: Theresa Alvares RN) 0922 (Given - Provider: Hermelinda Lamas, [...] Mary Pablo, DEVAN)1655 (Stopped - Provider: Mary Pablo RN) 600 mg, Intravenous, EVERY 8 HOURS, Firs t dose on Mon02/22/22 at 1530, Until Discontinued, Administer over 20 Minutes, Indication 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): Skin/Skin Structure clopidogreL (Plavix) tablet 75 mg 0958 (Given - Provider: Indy Machado RN) 1009 (Given - Provider: Hermelinda Lamas RN) 0923 (Given - Provider: Hermelinda Lamas RN) 75 mg, Oral, DAILY, First dose on Sat at 0945, Until Discontinued, Routine dextromethorphan (Robitussin) capsule 15 mg 1228 (Give n - Provider: Cyndi Machado RN)1741 (Given - Provider: Cyndi Machado RN)2306 (Given - Provider: Estrella Crowell RN) 0534 (Given - Provider: Estrella Crowell RN)1216 (Given - Provider: Keisha Gutierrez, DEVAN)1738 (Given - Provider: Keisha Gutierrez, RN) 0008 (Given - Provider: Theresa Alvares, DEVAN)0617 (Given - Provider: Theresa Alvares RN) 15 mg, Oral, EVERY 6 HOURS SCHEDULED, Fi rst dose on Mon02/22/22 at 1200, Until Discontinued, Routine docusate sodium (Colace) capsule 100 mg 09 (Given - Provider: Cyndi Machado RN)1947 (Given - Provider: Estrella Crowell RN) 1010 (Given - Provider: Hermelinda Lamas, DEVAN)2155 (Given - Provider: Theresa Alvaers, DEVAN) 09 (Given - Provider: Hermelinda Lamas, DEVAN) 100 mg, Oral, 2 TIMES DAILY, First dose on 02/19/22 at 0945, Until Discontinued, Routine enoxaparin (Lovenox) (40 mg/0.4 mL) subcutaneous injec tion 40 mg 1947 (Given - Provider: Estrella Crowell RN) 2154 (Given - Provider: Theresa Alvares RN) 40 mg, Subcutaneous, NIGHTLY, First dose on Mon02/20/22 at 2100, Until Discontinued, Routine furosemide (Lasix) tablet 20 mg 09 (Given - Provider : Cyndi Machado RN)1947 (Given - Provider: Estrella Crowell RN) 1010 (Given - Provider: Hermelinda Lamas, DEVAN)2156 (Given - Provider: Theresa Alvares, DEVAN) 09 (Given - Provider: Hermelinda Lamas, DEVAN) 20 mg, Oral, 2 TIMES DAILY, First dose o n 02/19/22 at 0945, Until Discontinued, Routine gabapentin (Neurontin) capsule 1,200 mg 1947 (Given - Provider: Estrella Crowell RN) 2155 (Given - Provider: Theresa Alvares RN) 1,200 mg, Oral, NIGHTLY, First dose on S at 02/19/22 at 2100, Until Discontinued, Routine gabapentin (Neurontin) capsule 600 mg 0957 (Given - Pr ovider: Cyndi Machado RN)1608 (Given - Provider: Mary Pablo RN) 1011 (Given - Provider: Hermelinda Lamas, RN)1542 (Given - Provider: Keisha Gutierrez, DEVAN) 0923 (Given - Provider: Hermelinda Lamas, DEVAN) 600 mg, Oral, 2 TIMES DAILY, First dose on Mon02/19/22 at 0945, Until Discontinued, Routine HYDROmorphone (Dilaudid) [...] Hermelinda Lamas RN)1542 (Given - Provider: Keisha Gutiererz, DEVAN)2156 (Given - Provider: Theresa Alvares, DEVAN) 0424 (Given - Provider: Theresa Alvares, DEVAN)1045 (Given - Provider: Hermelinda Lamas, DEVAN) 600 mg, Oral, EVERY 6 HOURS, First dose on Mon02/23/22 at 1030, Until Discontinued, Administer orally with milk or food to minimize GI irritation. Maximum dose of 3,200 mg from all sources in 24 hours, Routine insulin glargine-ygfn (Semglee) (100 uni t/mL) subcutaneous injection vial 15 Units (CANCELED) 58 (Given - Provider: Cyndi Machado RN) 1025 (Given - Provider: Hermelinda Lamas RN) 15 Units, Subcutaneous, DAILY, First dos e (after last modification) on Mon02/22/22 at 0900, Until Discontinued, Give even if NPO, Routine insulin glargine-ygfn (Semglee) (100 uni t/mL) subcutaneous injection vial 18 Units 0921 (Given - Provid er: Hermelinda Lamas RN) 18 Units, Subcutaneous, DAILY, First dos e on Toya 02/24/22 at 0900, Until Discontinued, Routine insulin lispro (HumaLOG;Admelog) (100 un it/mL) subcutaneous injection vial 0-14 Units 1536 (Given - Provider: Brina Gutierrez RN - Comment: Just ate lunch now)1812 (Given - Provider: Hermelinda Lamas RN) 0921 (Given - Provider: Hermelinda Lamas [...] Clif Vela PN)0959 (Given - Provider: Cyndi Machado RN) 0-6 Units, Subcutaneous, EVERY 4 [...] Estrella Crowell, DEVAN)0739 (Given - Provider: Keisha Gutierrez, DEVAN) 0-6 [...] Machado RN )1314 (Given - Provider: Cyndi Machado, RN)1747 (Given - Provider: Cyndi Machado, DEVAN) 1025 (Given - Provider: Hermelinda Lamas RN) [...] Group 1) 1215 (Given - Provider: Brina Gutierrez, DEVAN)1737 (Given - Provider: Keisha Gutierrez, DEVAN)2155 (Given - Provider: Theresa Alvares, DEVAN) 0000 (Not Given - Provider: Theresa Stern, DEVAN - Reason: Order parameters not met)0400 (Not Given - Provider: Theresa Alvares, DEVAN - Reason: Order parameters not met)0737 (Given [...] Francine Khoury RN)1229 (Given - Provider: Cyndi Machado, DEVAN) 15 mg, Intravenous, EVERY 6 HOURS, 4 dos es, First dose on Mon02/21/22 at 1815, Last dose on Mon02/22/22 at 1215, Routine lidocaine (Lidoderm) 5% patch 3 patch(Linked Group 2) 1741 (Patch Applied - Provider: Cyndi Machado, DEVAN) 173 (Patch Applied - Provider: Keisha Gutierrez, DEVAN) 3 patch, Transdermal, EVERY 24 HOURS, Fi rst dose on Mon02/21/22 at 1745, Until Discontinued, Apply patch(es) for 12 hours, and then remove for 12 hours., Routine lidocaine (Lidoderm) topical patch REMOVAL(Linked Grou p 2) 0500 (Patch Removed - Provider: Francine Khoury RN) 0500 (Patch Removed - Provider: Estrella Crowell RN) 0500 (Patch Removed - Provider: Theresa Alvares, DEVAN) Transdermal, EVERY 24 HOURS, First dose on Mon02/22/22 at 0500, Until Discontinued, Remove lidocaine 5% patch metoprolol succinate XL (Toprol-XL) tablet 50 mg 0958 (Given - Provider: Cyndi Machado RN) 1009 (Given - Provider: Hermelinda Lamas, DEVAN) 0923 (Giv en - Provider: Hermelinda Lamas, DEVAN) 50 mg, Oral, DAILY, First dose on [...] Hermelinda Lamas RN)2157 (Given - Provider: Theresa Alvares, DEVAN) 0922 (Given - Provider: Hermelinda Lamas, DEVAN) 500 mg, Oral, 2 TIMES DAILY, 14 [...] Estrella Crowell RN)1216 (Given - Provider: Keisha Gutierrez RN)1737 (Given - Provider: Keisha Gutierrez, DEVAN) 0005 (Given - Provider: Theresa Alvares RN)0617 (Given - Provider: Theresa Alvares RN) 10 mg, Oral, EVERY 6 HOURS, First dose o n 02/22/22 at 1200, Until Discontinued, Routine pantoprazole EC (Protonix) tablet 20 mg 0957 (Given - Provider: Cyndi Machado RN) 1011 (Given - Provider: Hermelinad Lamas RN) 0923 (Giv en - Provider: Hermelinda Lamas RN) 20 mg, Oral, DAILY, First dose on Sat at 0945, Until Discontinued, DO NOT CRUSH OR OPEN, Routine sodium chloride 0.9 % (flush) (BD PosiFlush Normal Celestino ine 0.9) flush 5 mL 1000 (Given - Provider: Cyndi Machado RN)1956 (Given - Provider: Estrella Crowell RN)2156 (Given - Provider: Estrella Crowell RN) 1101 (Given - Provider: Hermelinda Lamas RN)2157 (Given - Provider: Theresa Alvares RN) 0900 (Not Given - Provider: Hermelinda Lamas [...] Estrella Crowell RN)1422 (Given - Provider: Hermelinda Lamas RN) 0005 (Given - Provider: Theresa Alvares, DEVAN)0520 [...] Lamas RN)1422 (See Alternative - Provider: Hermelinda Lamas RN)1817 (See Alternative - Provider: Hermelinda Lamas RN)2156 (See Alternative - Provider: Theresa Alvares RN) 0112 (See Alternative - Provider: Theresa Alvares, DEVAN)0424 (See Alternative - Provider: Theresa Alvares, RN)0518 (See Alternative - Provider: Theresa Alvares, DEVAN)0723 (See Alternative - Provider: Theresa Alvares RN) 10 mg, Oral, EVERY 3 HOURS [...] (Roxicodone) tablet 15 mg (CANCELED) 0009 (G ivthomas - Provider: Francine Khoury RN)0604 (Given - [...] Hermelinda Lamas RN)1422 (Given - Provider: Hermelinda aLmas RN - Comment: additional 5mg for unrelieved pain)1817 (Given - Provider: Hermelinda Lamas RN)2156 (Given - Provider: Theresa Alvares, DEVAN) 0112 (Given - Provider: Theresa Alvares, RN)0424 (Given - Provider: Theresa Alvares, RN)0518 (Given - Provider: Theresa Alvares, RN)0723 (Given - Provider: Theresa Alvares, DEVAN) [...] Routine 1608 (See Alternative - Provider: Mary Pablo, DEVAN)1902 (See Alternative - Provider: Mary Pablo, DEVAN)1941 (Given - Provider: Estrella Crowell RN)2156 (See Alternative - Provider: Estrella rCowell RN) 1009 (See Alternative - Provider: Hermelinda [...] First dose on Mon02/19/22 at 1145, Until Discontinued
Apply new patch [...] episode. & nbsp; For persistent hypoglycemia, con community health advocate longer-acting treatment for the duration of the [...]
Routine documented in this encounter Care Teams Test Engine Evaluator Relationship Specialty Start Date End Date Lora Parekh MD PCP - General Family Medicine 08/06/21 [address] [place] [phone] documented as of this encounter
--- OUTSIDE RECORDS SUMMARY | 2022-08-14 18:37 | XMS_ITS | Encounter Summary ---
:1975 [place] [address] Care Team Providers Name Role Phone Valentin Parekh MD Primary Care Provider Reason for Visit Auth/Cert Specialty Diagnoses / Procedures Referred By Contact Refer red To Contact Diagnoses NSTEMI (non-ST elevated myocardial infarction) Elevated troponin Referral ID Status Reason Start Date Expiration Date Visits Requ ested Visits Authorized [id number] 1 1 Encounter Details Date Type Department Care Team Description 09/02/2021 - Hospital Encounter Cardiac Special Jaun Gant MD [facility] [place] [address] NSTEMI (non-ST elevated myocardial infar ction); 09/05/2021 Care Unit Tameka Mariano MD [facility] [place] [address] Coronary artery disease involving cro[place] creek coronary artery of cro[place] creek heart without angina pectoris; [facility] Serafin Lam MD [facility] [place] [address] HFrEF (heart failure with reduced ejecti on fraction) [place] [id number] Social History Tobacco Use Types Packs/Day Years [...] Sign Reading Time Taken Comments Blood Pressure 106/79 09/05/2021 12:23 PM EST Pulse 104 09/05/2021 12:23 PM EST Temperature 37 ??C (98.6 ??F) 09/05/2021 8:00 AM EST Respiratory Rate 18 09/04/2021 11:48 PM EST Oxygen Saturation 94% 09/05/2021 12:23 PM EST Inhaled Oxygen Concentration - - Weight 79.2 kg (174 lb 9.7 oz) 09/04/2021 6:06 AM EST Height 162.6 cm (5' 4) 09/02/2021 12:29 PM EST Body Mass Index 29.97 09/02/2021 12:29 PM EST documented in this encounter Discharge Summaries Serafin Lam MD - 09/05/2021 1:08 PM EST Images from the original note were not included. Patient Name: December Patient Age: 46 y.o. Language: Ivorian Race: White Ethnicity: Not nor Admit date: 09/02/2021 Discharge date and time: 09/05/2021 Attending Physician: Serafin Lam MD Discharge Physician: Serafin Lam MD Follow-up Recommendations for Providers: 1) NSTEMI s/p EMILEE to RCA - Patient was started on aspirin 81mg qd (indefinitely) and clopidogrel 75mg qd (for 1 year). Patient was discharged on metoprolol succinate 50mg qd, losartan 25mg qd, and atorvastatin 80mg qd (LDL: 79). Please uptitrate metoprolol and losartan as tolerated and ensure compliance of DAPT. Please consider a repeat BMP in 1-2 weeks. 2) Heart failure with reduced ejection fraction- Consider switching losartan to Entresto, if not cost-prohibitive. Also, recommend initiation of spironolactone. Consider SGLT2 inhibitor. PCP Contact Information: Valentin Parekh MD [address] [facility] [address] [place] [id number] Pending Studies and Lab Data: none Discharge Diagnoses (Hospital Problems) and Secondary Diagnoses (Chronic Problems): Active Hospital Problems Diagnosis ??? NSTEMI (non-ST elevated myocardial infarction) Resolved Hospital Problems No resolved problems to display. Active Non-Hospital Problems Diagnosis ??? Dislocation of left shoulder joint, chronic, recurrent, with multiple surgeries. History of Presentation (per 09/02/2021 Admission H&P): Patient reports that she has been dealing with residual symptoms of her COVID-19 infection back in June. She reports she is fully vaccinated. Since June she has been dealing with SOB on exertion and generalized weakness and fatigue. Three days ago though she developed gradual onset mid-sternal sharp chest pain with radiation down the left jaw and arm. It would come and go, though she does not remember how long each episode would last. She originally thought this was also secondary effects of COVID-19 though given the persistent nature of her symptoms [facility] ?? [facility], patient was tachycardic to 103 though otherwise hemodynamically stable on RA. EKG showed poor R wave progression. Troponin was 612 --> trend down to 47.2 prior to transfer, proBNP 2419. Labsnotable a microcytic anemia (Hbg ~ 10) and she was found to have KHARI and given Venofer at the OSH. Otherwise, Cr and lytes stable; glucoses poorly controlled. CXR was negative. She also had a TTE with an EF of 55-60% with anteroseptal and apical hypokinesis. RV normal in size, LA severely dilated withmoderate MR and moderate pulmonary HTN with PASP of 40-45. Risk Stratification: A1c 5.5%, Lipid Panel Total Cholesterol 205, LDL 141, HDL 26, Trig 190. ?? Given concern for type I NSTEMI patient was loaded with plavix and aspirin; started on heparin gtt. She was also started on metoprolol, lisinopril, and atorvastatin. On arrival here she is appears sleepy (she did receive morphine and fentanyl at the OSH due to reports of chest pain) though AAOx4 and overtly wheezy with a dry nonproductive cough. She denies any active chest pain. Hospital Course: Aracelis Monique was admitted to the Cardiology service on 09/02/2021. The following issues were addressed and she was discharged on 09/05/2021. #NSTEMI s/p EMILEE to RCA Patient initially presented to [facility] ED with chest pain on 08/30 PM, was found to have elevated troponin and T wave inversions on EKG, with apical hypokinesis on echo. She was stabilized with nitroglycerin was started on DAPT and heparin drip, which was transitioned to therapeutic Lovenox prior to transfer. On 09/02 she was transferred to [facility], ASA/Plavix/Lovenox was continued. She was taken to the [facility] where she was found to have discrete, ulcerated 90% stenosis lesion of the RCA, as well as 70% nonocclusive disease of LAD. She was also found to have elevated filling pressures LVEDP 38 mmHg. With any attempted intervention of her coronaries, she became unstable. Therefore the d ecision was made to stabilize her hemodynamically with an intra-aortic balloon pump, and she was transitioned to the ICU and aggressively diuresed. She remained stable in the next day 09/03 she returnedto the [facility], where EMILEE was placed distal RCA lesion. Subsequent TTE demonstrated EF 33% with apical akinesis without LV thrombus. She was started on GDMT and ultimately discharged on 50 mg metoprolol succinate daily, 25 mg losartan daily. Her blood pressures remain soft while inpatient. Metoprololand losartan should be uptitrated as outpatient and spironolactone should be started, as tolerated. ASA 81 mg daily should be continued indefinitely and complete a grill 75 mg daily should be continuedfor at least 1 year. ?? #Hx of Asthma Moist cough nonproductive of purulent sputum consistent with her chronic asthma. She was briefly started on a prednisone course with antibiotics for possible COPD exacerbation given her smoking history, and this was discontinued on discharge. She received budesonide nebulizer for wheezing while inpatient and frequent duo nebs. Her saturations remained stable throughout this admission and her home Advair was resumed on discharge. ?? #concern for GIB #KHARI, stable She has a history of gastric ulcers, though does not appear to have active GI bleed during this admission. She was evaluated by GI team while admitted given DAPT, though with no evidence of active GI bleed, endoscopy was not performed. - s/p 2-3 doses of IV venofer at the OSH - ferritin 207, Tsat 11 at [facility] - started ferrous sulfate QOD on 09/04 ?? # Type II DM Initially minimal insulin needs despite high dosage at home. After initiating prednisone for suspected COPD exacerbation, however her sugars became difficult to control as expected, requiring high-dosecorrectional insulin. Her home regimen was resumed on discharge. ?? #??Chronic Pain Her chronic and acute pain was treated effectively by continuing her home regimen as follows: - continue home oxycodone 10 mg Q4H PRN - continue home gabapentin 600 mg BID, 1200 mg Nightly Procedures: Operations: Procedure(s): CARDIAC CATHETERIZATION CORONARY ANGIOGRAPHY; W LHC,POSSIBLE PCI Important Studies and Lab Data: Recent Labs 09/05/2140109/04/2124609/03/21203509/03/2144 WBC 11.7* 9.3 -- 12.1* HGB 9.0* 9.4* 9.5* 9.7* HCT 29.5* 30.9* 30.6* 31.1* PLATELET 347 358* -- 432* Recent Labs 09/05/2140109/04/2124609/03/2139909/03/214409/02/21173909/02/21 1330 NA 139 140 -- 141 < > 141 K 4.3 4.4 4.3 3.8 < > 4.1 CL 103 104 -- 100 < > 105 CO2 24 Not Perf -- 28 < > 24 BUN 25* 16 -- 12 < > 14 CREATININE 0.68* 0.69* -- 0.71 < > 0.65* MAGNESIUM 0.79 0.89 -- 1.16* < > 0.69 PHOS -- -- -- -- -- 3.3 < > = values in this interval not displayed. Recent Labs 09/05/2140109/03/214409/02/21173909/02/21 1330 BILITOT <0.2* 0.3 0.2 <0.2* BILIDIR -- -- -- 0.1 AST 9 11 12 12 ALT 7 8 12 11 ALKPHOS 89 84 82 82 Recent Labs 09/02/21 1330 INR 1.0 PTT 38* Recent Labs 09/02/21 1330 HA1C 6.8* Recent Labs 09/02/21 1740 TSH 2.32 Recent Labs 09/02/21 1330 HDL 24 LDLCHOL 79 CHOLHDL 5.8 TRIG 178 CHLPL 139 Microbiology Results (Last 30 days) Procedure Component Value Units Date/Time COVID-19 PCR [[id number]] Collected: 09/02/21 1301 Lab Status: Final result Specimen: Nasopharyngeal Swab Updated: 09/02/211816 SARS-CoV-2 RNA PCR Not Detected Comment: This result should be interpreted in combination with the clinical observations, patient history and epidemiological information. For testing of asymptomatic individuals, assay performance characteristics and clinical utility have not been evaluated. Testing for SARS-CoV-2 (Severe acute respiratory syndrome coronavirus 2, formerly known as 2019 novel coronavirus or 2019-nCoV) to aid in the diagnosis of COVID-19 is performed using the Simplexa COVID-19 Direct Assay by [employer] as authorized by the FDA issued Emergency Use Authorization (EUA). This assay is intended for In-vitro Diagnostic (IVD) use with nasopharyngeal swabs collected from individuals meeting the CDC criteria for testing. The assay is performed based on the instructions for use and additional guidance provided by the FDA. Testing is performed in the Microbiology Laboratory within the Department of Pathology and Laboratory Medicine at [facility], certified under the Clinical Laboratory Improvement Amendments of 1988 (CLIA), 42 U.S.C. section 263a, to perform high complexity tests. Assay performance has been verified according to clinical laboratory regulatory requirements. Test results are provided above. A result of Not Detected indicates that the viral RNA target is not present but does not preclude SARS-CoV-2 infection. False negative results may occur if a specimen is improperly collected, transported or handled; if amplification inhibitors are present; or if inadequate numbers of viral particles are present in the specimen. A result of Detected suggests a current or recent infection and the patient is presumed to be infected. Positive and negative predictive values for this test are highly dependent on disease prevalence. A result of Invalid indicates the inability to conclusively determine the presence or absence of SARS-CoV-2 RNA in the sample which can be due to a variety of factors. Recollection is recommended in the case of an invalid result. CDC COVID-19 criteria for testing on human specimens and clinical management guidance information are available at the CDC Coronavirus Disease 2019 (COVID-19) webpage under Information for Healthcare Professionals (https://www.cdc.gov/coronavirus/2019-ncov/hcp/index.html). Additional information about this and other EUA tests can be found in provider and patient fact sheets at the following FDA website: https://www.fda.gov/medical-devices/dxehsowklhj-sfrzxqf-7307-rdzjh-79-trsodlpzw- mho-lbvktnjxhfemjg-jdfwrew-devices/ilibn-zlresuqiqzc-zpdi SARS-CoV-2 Source TITLE CURATOR Swab Imaging: Results for orders placed or performed during the hospital encounter of 09/02/21 XR Chest One View (Exam End: 09/02/2021 5:45 PM) Impression Pulmonary vascular congestion. Corinna-Tavia catheter tip at the right main pulmonary artery. Radiopaque marker of IABP catheter at the aortic knob. Thank you for letting us participate in the care of this patient. If you are a health care provider and have any questions regarding this report, please contact the number below. For patients who have questions please contact the health clinical care leader that requested your imaging first. Electronically signed by: Billie Juan MD, [facility] ([phone]), at 09/02/2021 7:28 PM XR Chest One View (Exam End: 09/04/2021 9:40 AM) Impression Interval removal of Corinna-Tavia catheter. Interval improvement in prominence of persistent mild pulmonary vascular congestion. No airspace consolidation. No pneumothorax. Unchanged cardiac silhouette. A left humeral head resurfacing hardware. Thank you for letting us participate in the care of this patient. If you are a health care provider and have any questions regarding this report, please contact the number below. For patients who have questions please contact the health clinical care leader that requested your imaging first. 09/03/21: Rhythm: Sinus BP: 99/55 ?? SUMMARY: ?? 1. The left ventricle is mildly dilated. Moderate sized LV apical akinesis. Global left ventricular systolic function is moderately reduced. The quantitative left ventricular ejection fraction by 3-D rendering is 37%. Cannot rule out a thrombus in the left ventricle. 2. The right ventricle is normal in size. Right ventricular global systolic function is normal. 3. There is moderate (2+/4+) mitral regurgitation present. 4. There is no pericardial effusion. TTE 09/05/21 to evaluate for LV thrombus: Rhythm: Sinus BP: 92/65 HR: 99 ?? SUMMARY: ?? 1. The left ventricle is mildly [...] thrombus is visualized within the left ventricle. Cardiac catheterization 09/02/21: Coronary Angiography: Dominance: Right Left Main There was mild diffuse (<=25% stenosis) disease of the entire vessel segment of the left main artery. Left Anterior Descending There was mild diffuse (<=25% stenosis) disease of the entire vessel segment of the left anterior descending artery (LAD). The LAD was large. The mid segment of the LAD had a long segmental 70% stenosis. This lesion involved bifurcation. Left Circumflex Right Coronary Artery There was a 70% eccentric and ulcerated long segmental stenosis of the proximal segment of the right coronary artery (RCA). The RCA was large. Distal flow was normal and was via the [place] vessel. The mid segment of the RCA had an eccentric and ulcerated single discrete 90% stenosis. Discharge Conditions/Prognosis: Upon discharge the patientis hemodynamically stable, afebrile, fullyambulatory without requiring supplemental oxygen, holding down food/drink, and pain free controlled with stable oral regimen. Vital Signs: Last value Range last 24 hrs Temperature Temp: 37 ??C (98.6 ??F) Temp: [37 ??C (98.6 ??F)-37.1 ??C (98.8 ??F)] Heart Rate Heart Rate: (!) 104 Heart Rate: [87-104] Blood Pressure BP: 106/79 BP: (91-106)/(57-79) Respiratory Rate Resp: 18 Resp: [18] SpO2 SpO2: 94 % SpO2: [87 %-96 %] Discharge to: home without services. Discharge Medications: Your Medications New Medications Dose Details acetaminophen 325 mg Tab Commonly known as: Tylenol Take 3 tablets by mouth every 8 hours. 975 mg Quantity: 30 tablet Refills: 1 aspirin EC 81 mg Tbec Take 1 tablet by mouth daily. Start taking on: September 06, 2021 81 mg Quantity: 30 tablet Refills: 3 atorvastatin 80 mg Tab Commonly known as: Lipitor Take 1 tablet by mouth every evening. 80 mg Quantity: 90 tablet Refills: 3 clopidogreL 75 mg Tab Commonly known as: Plavix Take 1 tablet by mouth daily. Start taking on: September 06, 2021 75 mg Quantity: 90 tablet Refills: 3 ferrous sulfate EC 325 mg (65 mg iron) Tbec Take 1 tablet by mouth every other day. Start taking on: September 06, 2021 325 mg Quantity: 30 tablet Refills: 3 * [...] 1 each Quantity: 100 each Refills: 11 Insulin Tresiba FlexTouch U-200 200 unit/mL (3 mL) Inpn Inject 100 Units subcutaneously daily. Indications: type 2 diabetes mellitus Generic drug: insulin degludec 100 Units Quantity: 9 mL Refills: 3 losartan 25 mg Tab Commonly known as: Cozaar Take 1 tablet by mouth daily. Start taking on: September 06, 2021 25 mg Quantity: 90 tablet Refills: 3 [...] with you. Continued medications, unchanged Dose Details Advair Diskus [...] Generic drug: zolpidem 5 mg Refills: 0 celeXA 40 mg Tab Take 40 mg by mouth daily. Generic drug: citalopram 40 mg Refills: 0 estradioL 1 mg Tab Commonly known as: Estrace Take 1 mg by mouth daily. 1 mg Refills: 0 PERCOCET ORAL Take 5 mg by mouth daily as needed. 5 mg Refills: 0 STOPPED Medications cimetidine 400 mg Tab Commonly known as: TAGAMET ibuprofen 200 mg Tab Commonly known as: Advil Updated Allergies/ADRs: Allergies Allergen Reactions ??? Penicillins Spoke to mother Vicenta. Rash and SOB as a child ??? Trazodone Instructions Given to Patient at Discharge: Patient Instructions Patient Instructions on Discharge to Home Why were you hospitalized? You had a heart attack, which was caused by a blockage in one of your heart arteries. This was fixedwith a stent that was placed during a cardiac catheretization. Because you had this procedure, you shouldn't lift anything greater than 10 lbs for the next week and nothing greater than 20 lbs for 2 wee ks. After that time you may go back to regular activity and work. Call your doctor if your right groin or wrist pain gets worse, or you develop swelling or redness inthat area. Also, call your doctor if you develop sudden chest pain or shortness of breath, especially chest pain that does not go away with nitroglycerin. It is important that you take your aspirin 81mg daily forever and clopidogrel 75mg daily for at least 1 year. Do not miss any doses of these medications! What medications should you take? NEW Medications: Aspirin: this is a platelet inhibitor that will help prevent clot build up in your arteries, as wellas in the stent that was placed. Continue taking 81mg daily indefinitely. Clopidogrel (plavix): this is a second platelet inhibitor that will help prevent clot build up in the stent that was placed. It is very important that you take this medication every day at least for one year to help keep your stent open. Follow up with your doctor before stopping this medication. Atorvastatin (lipitor): this is a cholesterol-lowering medication that helps prevent build up of plaque in your arteries. Take this every evening. Metoprolol (toprol): this is a beta jerri, that helps protect your heart. Take this every day. Losartan: this is an angiotensin receptor jerri that also helps protect your heart, as well as help control your blood pressure. Take this every day. Nitroglycerin: this is a medication that can be placed under your tongue as needed for chest pain. If you experience chest pain, especially that similar to what you had before you were admitted to the hospital, sit down and place one tab under your tongue (it may make you dizzy, so sitting down beforetaking this is safest). If your chest pain does not improve, call your doctor. Pantoprazole: this is a proton pump inhibitor that protects your stomach from irritation and bleeding that may occur which you are taking two platelet inhibitors. It is recommended you continue to takethis medication at least as long as you are taking aspirin and clopidogrel together. Ferrous sulfate: this is an iron supplement. We found that you are iron deficient. Please take this every other day to improve your iron levels. STOPPED Medications: Cimetidine - . Do not take this medication any more because it can interfere with one of your heart medications. Please take pantoprazole instead. When should you call your doctor? - Chest pain, worsening shortness of breath, fatigue with usual exertion, or new rest/night time symptoms. - Weigh yourself daily and record; if you note an increase of more than 2-3 pounds in 2 days, or 5 pounds over a week, contact your health care provider. - If you become short of breath, cannot lie down to sleep, or have swelling in your legs/ankles or abdomen, contact your health care provider. - Call if you have reduced urination during the day or increased urination at night. - Call for signs of increased wound drainage, redness, swelling, or increased pain at the site of your cardiac cath. - Call if you develop a temp >100.5 Who do you call if you have questions or problems? If you have non-emergent questions between now and the time of your follow up appointments: During 8am-5pm Monday through Monday call [phone] to speak with a nurse in the cardiology clinic All other times call [phone] and ask to speak to the chief scientific officer upper extremity surgeon. What activities can you do, and what restrictions do you have? Activity level: - No heavy lifting (more than five pounds) for 48 hours; no more than 10 pounds for one week. - You may return to work in 1 week. Use common sense. Don't exhaust yourself. - No hunting, skiing, jogging, snow shoveling, snowmobiling, lawn mowing, swimming, golf or tennis until after your return appointment with your family doctor. - Do not ride motorcycles, tractors or horses until cleared by your doctor. Diet: - Heart healthy: low salt, low fat, low concentrated sweets. Remember to avoid added salt, canned foods, processed foods (ie hot dogs, sausage, cold meats), and foods naturally high in salt, such as potato chips or pizza. Driving: - Per your routine after [address] if you feel dizzy, light headed, or are taking narcotic medications (ie/ Oxycodone, Morphine, Dilaudid, etc). Shower/Bath: - You may shower 24 hours after cardiac catheterization. - You may not sit in water for 5 days (tub bath, hot tub or pool). Wound Care: - Cath site dressing may be removed in 24 hours. Site may be washed with soap/water. A dressing doesnot need to be reapplied unless irritation occurs with underclothes. If irritation occurs, apply clean band-aid daily. Exercise: - Exercise 5-7 days per week as tolerated with gradual increase to 30 minutes per day. Smoking cessation: - If you are currently a smoker, you are strongly urged to stop smoking! Smoking increases the severity and incidence of heart disease, and is a risk factor for cancer and emphysema. Your health care provider can provide specific measures to assist you, including nicotine supplements, anti-anxiety meds, and support groups in your community. Who were my doctors while I was in the hospital? Serafin Lma MD - Attending Warehouse Insulation Worker Oscar Saha MD - Patternmaker Apprentice [employer] Ariel Rush MD, Mirza Robbins DO - Resident Physicians When do I see my doctors next? No future appointments. You will need to follow up with your PCP (Valentin Parekh MD at [phone]) within 1 week of discharge - Please call to schedule an appointment within 2 weeks. You will need to follow up with your Warehouse Insulation Worker within 1 month of discharge - We will call you when this is scheduled. For questions regarding issues relating to your hospitalization on the Cardiology Service, please contact your inpatient physician through the [facility] Textile Slitting Machine Operator [phone] and ask for pager #[phone]. Issues after hours and on weekends will be handled by the Cardiology staff on-call. General Instructions None Inpatient Provider Contact Information: For questions regarding this document or issues relating to this hospitalization on the Medical Service, please contact your inpatient physician through the [facility] Textile Slitting Machine Operator . Issues after hours and on weekends will be handled by staff on-call. Discharge References/Attachments: Discharge References/Attachments None documented in this encounter Discharge Instructions Patient InstructionsAriel Deleon MD - 09/05/2021 12:36 PM EST Patient Instructions on Discharge to Home Why were you hospitalized? You had a heart attack, which was caused by a blockage in one of your heart arteries. This was fixedwith a stent that was placed during a cardiac catheretization. Because you had this procedure, you shouldn't lift anything greater than 10 lbs for the next week and nothing greater than 20 lbs for 2 wee ks. After that time you may go back to regular activity and work. Call your doctor if your right groin or wrist pain gets worse, or you develop swelling or redness inthat area. Also, call your doctor if you develop sudden chest pain or shortness of breath, especially chest pain that does not go away with nitroglycerin. It is important that you take your aspirin 81mg daily forever and clopidogrel 75mg daily for at least 1 year. Do not miss any doses of these medications! What medications should you take? NEW Medications: Aspirin: this is a platelet inhibitor that will help prevent clot build up in your arteries, as wellas in the stent that was placed. Continue taking 81mg daily indefinitely. Clopidogrel (plavix): this is a second platelet inhibitor that will help prevent clot build up in the stent that was placed. It is very important that you take this medication every day at least for one year to help keep your stent open. Follow up with your doctor before stopping this medication. Atorvastatin (lipitor): this is a cholesterol-lowering medication that helps prevent build up of plaque in your arteries. Take this every evening. Metoprolol (toprol): this is a beta jerri, that helps protect your heart. Take this every day. Losartan: this is an angiotensin receptor jerri that also helps protect your heart, as well as help control your blood pressure. Take this every day. Nitroglycerin: this is a medication that can be placed under your tongue as needed for chest pain. If you experience chest pain, especially that similar to what you had before you were admitted to the hospital, sit down and place one tab under your tongue (it may make you dizzy, so sitting down beforetaking this is safest). If your chest pain does not improve, call your doctor. Pantoprazole: this is a proton pump inhibitor that protects your stomach from irritation and bleeding that may occur which you are taking two platelet inhibitors. It is recommended you continue to takethis medication at least as long as you are taking aspirin and clopidogrel together. Ferrous sulfate: this is an iron supplement. We found that you are iron deficient. Please take this every other day to improve your iron levels. STOPPED Medications: Cimetidine - . Do not take this medication any more because it can interfere with one of your heart medications. Please take pantoprazole instead. When should you call your doctor? - Chest pain, worsening shortness of breath, fatigue with usual exertion, or new rest/night time symptoms. - Weigh yourself daily and record; if you note an increase of more than 2-3 pounds in 2 days, or 5 pounds over a week, contact your health care provider. - If you become short of breath, cannot lie down to sleep, or have swelling in your legs/ankles or abdomen, contact your health care provider. - Call if you have reduced urination during the day or increased urination at night. - Call for signs of increased wound drainage, redness, swelling, or increased pain at the site of your cardiac cath. - Call if you develop a temp >100.5 Who do you call if you have questions or problems? If you have non-emergent questions between now and the time of your follow up appointments: During 8am-5pm Monday through Monday call [phone] to speak with a nurse in the cardiology clinic All other times call [phone] and ask to speak to the chief scientific officer upper extremity surgeon. What activities can you do, and what restrictions do you have? Activity level: - No heavy lifting (more than five pounds) for 48 hours; no more than 10 pounds for one week. - You may return to work in 1 week. Use common sense. Don't exhaust yourself. - No hunting, skiing, jogging, snow shoveling, snowmobiling, lawn mowing, swimming, golf or tennis until after your return appointment with your family doctor. - Do not ride motorcycles, tractors or horses until cleared by your doctor. Diet: - Heart healthy: low salt, low fat, low concentrated sweets. Remember to avoid added salt, canned foods, processed foods (ie hot dogs, sausage, cold meats), and foods naturally high in salt, such as potato chips or pizza. Driving: - Per your routine after [address] if you feel dizzy, light headed, or are taking narcotic medications (ie/ Oxycodone, Morphine, Dilaudid, etc). Shower/Bath: - You may shower 24 hours after cardiac catheterization. - You may not sit in water for 5 days (tub bath, hot tub or pool). Wound Care: - Cath site dressing may be removed in 24 hours. Site may be washed with soap/water. A dressing doesnot need to be reapplied unless irritation occurs with underclothes. If irritation occurs, apply clean band-aid daily. Exercise: - Exercise 5-7 days per week as tolerated with gradual increase to 30 minutes per day. Smoking cessation: - If you are currently a smoker, you are strongly urged to stop smoking! Smoking increases the severity and incidence of heart disease, and is a risk factor for cancer and emphysema. Your health care provider can provide specific measures to assist you, including nicotine supplements, anti-anxiety meds, and support groups in your community. Who were my doctors while I was in the hospital? Serafin Lam MD - Attending Warehouse Insulation Worker Oscar Saha MD - Patternmaker Apprentice Wood Ariel Rush MD, Mirza Robbins DO - Resident Physicians When do I see my doctors next? No future appointments. You will need to follow up with your PCP (Valentin Parekh MD at [phone]) within 1 week of discharge - Please call to schedule an appointment within 2 weeks. You will need to follow up with your Warehouse Insulation Worker within 1 month of discharge - We will call you when this is scheduled. For questions regarding issues relating to your hospitalization on the Cardiology Service, please contact your inpatient physician through the [facility] [place] Textile Slitting Machine Operator [phone] and ask for pager #[phone]. Issues after hours and on weekends will be handled by the Cardiology staff on-call. documented in this encounter Medications at Time of Discharge Medication Sig Dispensed Refills Start Date End Date aspirin EC 81 mg Take 1 tablet by mouth 30 tablet 3 021 Tablet, Delayed daily. Release (E.C.) atorvastatin (Lipitor) Take 1 tablet by mouth 90 tablet 3 1 11/06/2020 80 mg Tablet every evening. clopidogreL (Plavix) Take 1 tablet by mouth 90 tablet 3 03/2021 75 mg Tablet daily. ferrous sulfate EC 325 Take 1 tablet by mouth 30 tablet 3 1 11/07/2020 mg (65 mg iron) every other day. Tablet, Delayed Release (E.C.) magnesium oxide Take 1 tablet by mouth 30 tablet 12 09/05/20 21 (Mag-Ox) 400 mg (241.3 2 times daily. mg magnesium) Tablet gabapentin (Neurontin) Take 2 capsules by 90 capsule 12 09/05 300 mg Capsule mouth 2 times daily. insulin needles, Inject 1 each 100 each 11 09/05/2021 disposable, 32 gauge x subcutaneously daily. Indications: diabetes NeedleIndications: mellitus diabetes mellitus nicotine (Nicoderm CQ) Change 1 patch on the 28 patch 3 14 mg/24 hr Patch 24 skin daily. hr pantoprazole EC Take 1 tablet by mouth 90 tablet 3 09/05/20 21 (Protonix) 20 mg daily. Tablet, Delayed Release (E.C.) albuterol (PROVENTIL) Take 2.49 mg by 0 2.5 mg /3 mL (0.083 %) nebulization every 6 nebulizer solution hours as needed. fluticasone Inhale 1 puff into the 0 propion-salmeteroL lungs 2 times daily. (ADVAIR) 500-50 mcg/dose Disk with Device acetaminophen Take 3 tablets by 30 tablet 1 09/05/2021 05/2 03/2022 (Tylenol) 325 mg mouth every 8 hours. Tablet gabapentin (Neurontin) Take 3 capsules by 90 capsule 12 09/0505/13/2022 400 mg Capsule mouth nightly. losartan (Cozaar) 25 Take 1 tablet by mouth 90 tablet 3 03/202105/23/2022 mg Tablet daily. metoprolol succinate Take 1 tablet by mouth 30 tablet 12 01/202105/23/2022 XL (Toprol-XL) 50 mg daily. Tablet Sustained Release [address] 1 tablet under 90 tablet 12 09/05/2021 0 05/23/2022 (Nitrostat) 0.4 mg the tongue every 5 Tablet, Sublingual minutes as needed for Chest pain. Insulin Tresiba Inject 100 Units 9 mL 3 09/05/2021 FlexTouch U-200 200 subcutaneously daily. unit/mL (3 mL) Insulin Indications: type 2 PenIndications: type 2 diabetes mellitus diabetes mellitus zolpidem (Ambien) 5 mg Take 5 mg by mouth 0 05/13/2022 Tablet nightly as needed. citalopram (CeleXA) 40 Take 40 mg by mouth 0 05/13/2022 mg Tablet daily. estradiol (ESTRACE) 1 Take 1 mg by mouth 0 05/13/2022 mg tablet daily. OXYCODONE Take 5 mg by mouth 0 2021 HCL/ACETAMINOPHEN daily as needed. (PERCOCET ORAL) documented as of this encounter Progress Notes Hermelindo Yanez RN - 09/05/2021 1:08 PM EST Pt discharge orders placed and patient discharged to home via private vehicle. LDAs removed and AVS printed and reviewed with patient. Patient reports understanding of new medication and we discussed follow up with a Warehouse Insulation Worker. All questions answered and patient appreciative of care. Delvis Acosta MD - 09/05/2021 1:08 PM EST Follow Up Diabetes Consult Patient Interview Glucose trends and insulin use reviewed. Patient discharged today with prednisone. Objective Temp: [37 ??C (98.6 ??F)] Heart Rate: [87-104] Resp: [18] BP: (91-106)/(57-79) SpO2: [88 %-96 %] Heart Rate from SpO2: [86 bpm-105 bpm] Current Regimen from previous note 1. No long acting insulin at this time. 2. Lispro custom correction scale for BG>140 , CF 20 3. Meal-associated Lispro 0-8 units tid ac (or 1unit: 10 gm carb ratio for each meal) 4. Please add carb controlled/carb counting diet once eating Recent Glucose Levels Recent Labs 09/05/21 1227 09/05/21 0748 09/05/21 0538 09/04/21 2346 09/04/21 2101 09/04/21 1745 09/04/21 1617 09/04/21 1421 09/04/21 1132 09/04/21 1014 09/04/21 0803 09/04/21 0602 POCGLU 256* 156 213* 214* 281* 287* 296* 373* 262* 174 107 264* ASSESSMENT Patient is a 46 y.o. years old female with PMH significant for DM (Last A1C of 6.8%) who was admitted on 09/02/2021 for NSTEMI. Diabetes adequately controlled and currently complicated by NSTEMI and stress of hospitalization. Currently with variability of blood glucose levels while hospitalized requiring adjustment of insulin regimen and DM medications. ?? Patient was started on prednisone for asthma/COPD with subsequent worsening glucose control. She is being discharged today of prednisone and so it is reasonable to resume her home regimen on discharge. PLAN Resume home regimen on discharge. Patient discussed with attending, Dr. Martines. Xiang Peters DO Endocrinology Fellow Pager [phone] I have been in the patient's care area and reviewed Dr. Xiang Peters's above history and I agree with the details as written. The assessment and plan were formulated in discussion with me and I agree with them as documented. Delvis Martines MD, PhD, FACP, FACE Hermelindo Yanez RN - 09/05/2021 12:39 PM EST Patient Name: Aracelis Monique Patient Age: 46 y.o. Birthdate: 1975 Admit date: 09/02/2021 Attending Physician: Serafin Lam MD Pt remains on RA and HR/SBP WNL this AM. Good, unproductive cough this morning, relieved with Duoneb's intermittently. Reports shoulder pain from prior to admission but denies SOB and Chest Pain. Pt informed of discharge today. Jessica Bhatt PT - 09/05/2021 10:10 AM EST Physical Therapy Evaluation Patient profile: Aracelis Monique is a 46 y.o. female admitted on 09/02/[address] Serafin Lam MD with a history of obesity (BMI 31), HTN, HLD, DM2 on insulin, ASCVD, chronic pain on opiate therapy [facility]) found to have significant complex disease of the RCA and LAD with severely elevated LVEDP. ?Admitted to the ICU on 09/02 because she developed recurrent ischemic chest pain and flash pulmonary edema, presumed due to ischemia, and was taken emergently back to the tree tapping laborer for IABP placement. After aggressive diuresis and now s/p PCI to the RCA on 09/04, patient transferred back to the [facility]. Patient with the following active problems: No past medical history on file. No past surgical history on file. Social History: Home set-up: Pt lives with her children (ranging in age from 10 to 25) in a multi-story home. She reports her kids are able to assist her as needed. Stairs: 3 SARA, FOS to bed/bath Baseline Mobility: ambulatory with a cane at baseline. Does not work or drive. Equipment at home: cane Fall history: denies Precautions/Special Considerations: Code Status: Full Code, [place] precautions , Room air, On telemetry Mobility and Positioning Recommendations: ?? Pt. to utilize no AD and supervision for ambulation and transfers with nursing. ?? Please encourage up to chair for meal times as able. ?? Pt encouraged to ambulate frequently with staff, getting into the bathroom for toileting and walking out in the pan >/= 3 times daily as able. Subjective: ???My left shoulder is my issue. They said it is popped out of the socket.?? No deformity noted by this real estate underwriter to pt's L shoulder, RN aware or pt's statement. Objective: Pt seen for evaluation today. Pain: Pt appeared comfortable at rest, reported increased pain in L shoulder with activity, yet did not rate. Pt guarding L shoulder with elbow flexed to 90* and actively bracing keeping LUE by her side throughout session. Vital Signs: At Rest With Activity SpO2 (RA) >95% >90% BP stable stable HR 80s bpm 100s bpm Mental Status: alert, oriented to person, place, and time Skin: grossly intact Musculoskeletal: ROM: grossly WFL - unable to assess L shoulder 2/2 pain Strength: grossly WFL - unable to assess LUE 2/2 pain Sensation: pt reports no N/T Bed Mobility: Supine to Sit: independent Sit to Supine: independent Transfers: Sit to Stand: independent Stand to Sit: independent Gait: Distance: 40' Device used: none Level of assist: independent Gait mechanics: reduced alana, swing-through gait and narrow base of support Stairs: NA, ECHO at bedside, pt verbalized no concerns Balance: Sitting Static: good Sitting Dynamic: good Standing Static: good Standing Dynamic / Gait: good Education: patient has been educated on Bed mobility, Transfers, Stairs, Positioning, Safety , Precautions/protocol, Gait , Activity pacing/Energy conservation, Role of therapy, Balance and Discharge planning and verbalizes understanding. Patient status, treatment, and mobility recommendations discussed with nursing. Pt left long sitting in bed, with all needs met and with call gonsales in reach RN updated following visit. Assessment: December Sho was seen today for physical therapy evaluation. Pt initially reclined in bed,agreeable to participate. Pt presents with the following impairments/limitations: ergonomics and body mechanics, gait, locomotion, and balance, joint integrity and mobility, muscle performance, postureand ROM (range of motion). Pt reports they were ambulating with a cane at baseline. Pt limited this date by L shoulder pain, yet able to perform all mobility independently. Anticipate pt is at their functional mobility baseline and can be discharged home when medically ready. Pt has no further inpatient PT needs, yet should continue to ambulate with staff frequently throughout the day to prevent deconditioning while hospitalized. Discharge Recommendations: Based on the current findings, Anticipated Discharge Disposition (PT): home when medically ready forhospital discharge. Consult Recommendations: No other consults recommended at this time. Equipment needs: Anticipated Equipment Needs at Discharge (PT): None Goals: evaluation only: Plan: Therapy Frequency (PT): evaluation only. Patient/family understand and agree with plan as stated above. 2017 PT Evaluation Code Rationale: ?? Diagnosis & Pertinent Co-Morbidities, personal factors, and present illness affecting Plan ofCare: (see above); Additional personal factors or co- morbidities that impact plan: stairs ?? Total # of Factors: 0 1-2 3+ X ?? Examination of body system impairments, functional limitations and behaviors, and/or participation restrictions (Cardiovascular, Integumentary, Muscular, Nervous, Respiratory and Skeletal) Addressing 1-2 elements Addressing 3 + elements Addressing 4 + elements X ?? Clinical presentation: See assessment above. pain Stable/Uncomplicated Evolving/Fluctuating Symptoms Unstable/Unpredictable X ?? Clinical decision making of moderate complexity based on pt's functional performance as outlined in this evaluation. Time IN / OUT: 9490-9227 Total Minutes, Physical Therapy: 13 Billing Code: arti Jessica Bhatt PT, DPT Pager: [phone] Physical Therapy Inpatient Rehabilitation Department Serafin Lam MD - 09/05/2021 6:55 AM EST Inpatient Cardiology Progress Note Hospital Day 3 days Active Hospital Problems Diagnosis ??? NSTEMI (non-ST elevated myocardial infarction) Resolved Hospital Problems No resolved problems to display. ID: Aracelis Sho is a 46 y.o. female with a history of obesity (BMI 31), HTN, HLD, DM2 on insulin, ASCVD, chronic pain on opiate therapy who [facility] (type [facility]) found to have significant complex disease of the RCA and LAD with severely elevated LVEDP. ?? Admitted to the ICU on 09/02 because she developed recurrent ischemic chest pain and flash pulmonary edema, presumed due to ischemia, and was taken emergently back to the tree tapping laborer for IABP placement. After aggressive diuresis and now s/p PCI to the RCA on 09/04, patient transferred back to the [facility]. ?? 24 Hour Events/Subjective: -No acute events overnight, vital signs stable, afebrile -feels improved since having stent placed, though does note occasional transient sharp chest pain episodes lasting less than 5 seconds. -Denies shortness of breath or dizziness -She reports long history of asthma since childhood and that her current coughing is consistent withher baseline asthma -She has not been getting home Advair since she has been in the hospital -She notes worsening of her chronic shoulder pain since she has been in the hospital. 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 ferrous sulfate EC 325 mg Oral Every Other Day ??? metoprolol tartrate 12.5 mg Oral Q6H ALAN ??? ipratropium-albuteroL 3 mL Nebulization Q4H ALAN ??? predniSONE 40 mg Oral Daily ??? cefpodoxime 200 mg Oral BID ??? Doxycycline Monohydrate 100 mg Oral 2 times per day ??? pantoprazole EC 40 mg Oral Daily ??? enoxaparin 40 mg Subcutaneous Nightly ??? insulin lispro 0-13 Units Subcutaneous TID WC ??? insulin glargine 40 Units Subcutaneous Nightly ??? insulin lispro 2-16 Units Subcutaneous Q4H ALAN ??? acetaminophen 975 mg Oral Q8H ??? aspirin EC 81 mg Oral Daily ??? lidocaine 1 patch Transdermal Q24H And ??? lidocaine 1 patch Transdermal Q24H ??? lidocaine 3 patch Transdermal Q24H And ??? lidocaine 3 patch Transdermal Q24H ??? sodium chloride 0.9 % (flush) 5 mL Intravenous BID ??? sodium chloride 0.9 % (flush) 5 mL Intravenous BID ??? nicotine 1 patch Transdermal Daily And ??? Patch Verification 1 patch Transdermal BID And ??? nicotine 1 patch Transdermal Daily ??? atorvastatin 80 mg Oral QPM ??? gabapentin 600 mg Oral 2 times per day And ??? gabapentin 1,200 mg Oral Nightly ??? clopidogreL 75 mg Oral Daily Continuous Infusions: ??? nitroGLYcerin Stopped (09/02/21 1845) PRN Meds: glucose 40% oral geL OR dextrose 10% OR glucagon, ipratropium-albuteroL, oxyCODONE, guaiFENesin, sodium chloride 0.9 % (flush), lidocaine, nitroGLYcerin, sodium chloride 0.9 % (flush), potassium chloride ER OR potassium chloride ER Vitals: Last value Range last 24 hrs Temperature Temp: 37.1 ??C (98.8 ??F) Temp: [36.9 ??C (98.4 ??F)-37.1 ??C (98.8 ??F)] Heart Rate Heart Rate: 97 Heart Rate: [87-103] Blood Pressure BP: 95/59 BP: (88-108)/(57-72) Respiratory Rate Resp: 18 Resp: [18-20] SpO2 SpO2: 95 % SpO2: [87 %-97 %] Ins/Outs: Intake/Output Summary (Last 24 hours) at 09/05/2021 0655 Last data filed at 09/05/2021 0400 Gross per 24 hour Intake 1705 ml Output 1175 ml Net 530 ml Patient Vitals for the past 168 hrs: Weight 09/04/21 0606 79.2 kg (174 lb 9.7 oz) 09/03/21 0423 77.8 kg (171 lb 8.3 oz) 09/02/21 1229 82.7 kg (182 lb 5.1 oz) Admit wt: 82.7 kg Physical Exam: General: Resting in bed, awake and alert HEENT: Poor dentition, anicteric sclera. Moist mucous membranes Neck: Supple with normal ROM. Normal JVP. cardiac: Normal S1 and S2, Regular rate and rhythm; No murmrs/gallops/rubs. 3+ radial pulses bilaterally. 2+ DP pulses bilaterally. Normal JVP Respiratory: Scattered expiratory wheezes, good air movement throughout, occasional moist cough nonproductive Abd: + BS; soft, mild diffuse ttp, non-distended, no obvious masses. Ext: WWP without le edema Neuro: Alert and orientated to situation, conversation, and self, no-focal deficits. Normal mood andaffect Laboratory: CBC: Recent Labs 09/05/2140109/04/2124609/03/21203509/03/2144 WBC 11.7* 9.3 -- 12.1* HGB 9.0* 9.4* 9.5* 9.7* PLATELET 347 358* -- 432* Chemistry: Recent Labs 09/05/2140109/04/2124609/03/21 04009/03/215 09/02/215 09/02/21173909/02/21 1330 NA 139 140 -- 141 -- 140 140 141 K 4.3 4.4 4.3 3.8 < > 3.9 3.9 4.1 CL 103 104 -- 100 -- 102 102 105 CO2 24 Not Perf -- 28 -- 26 26 24 BUN 25* 16 -- 12 -- 12 12 14 CREATININE 0.68* 0.69* -- 0.71 -- 0.63* 0.63* 0.65* GLUCOSE -- -- -- -- -- 117 180 < > = values in this interval not displayed. Recent Labs 09/05/2140109/04/2124609/03/215 09/02/21 17409/02/21 1330 CALCIUM 9.5 8.9 8.6 < > 8.4* MAGNESIUM 0.79 0.89 1.16* < > 0.69 PHOS -- -- -- -- 3.3 < > = values in this interval not displayed. LFT's: Recent Labs 09/05/21 0402 09/03/21 0045 09/02/21 1740 09/02/21 1330 BILITOT <0.2* 0.3 0.2 <0.2* BILIDIR -- -- -- 0.1 ALBUMIN 3.5 3.7 3.7 3.6 ALKPHOS 89 84 82 82 ALT 7 8 12 11 AST 9 11 12 12 Coags: Recent Labs 09/02/21 1330 PT 11.9 INR 1.0 PTT 38* Cardiac enzymes: Recent Labs 09/03/21 0620 09/02/21 1330 TROPONINT 0.07* 0.03* Endocrine: Recent Labs 09/02/21 1740 TSH 2.32 Diagnostic Studies: Results for orders placed or performed during the hospital encounter of 09/02/21 XR Chest One View (Exam End: 09/02/2021 5:45 PM) Impression Pulmonary vascular congestion. Corinna-Tavia catheter tip at the right main pulmonary artery. Radiopaque marker of IABP catheter at the aortic knob. Thank you for letting us participate in the care of this patient. If you are a health care provider and have any questions regarding this report, please contact the number below. For patients who have questions please contact the health clinical care leader that requested your imaging first. Electronically signed by: Billie Juan MD, [facility] ([phone]), at 09/02/2021 7:28 PM XR Chest One View (Exam End: 09/04/2021 9:40 AM) Impression Interval removal of Corinna-Tavia catheter. Interval improvement in prominence of persistent mild pulmonary vascular congestion. No airspace consolidation. No pneumothorax. Unchanged cardiac silhouette. A left humeral head resurfacing hardware. Thank you for letting us participate in the care of this patient. If you are a health care provider and have any questions regarding this report, please contact the number below. For patients who have questions please contact the health clinical care leader that requested your imaging first. 09/03/21: SUMMARY: 1. The left ventricle is mildly dilated. Moderate sized LV apical akinesis. Global left ventricular systolic function is moderately reduced. The quantitative left ventricular ejection fraction by 3-D rendering is 37%. Cannot rule out a thrombus in the left ventricle. 2. The right ventricle is normal in size. Right ventricular globalsystolic function is normal. 3. There is moderate (2+/4+) mitral regurgitation present. 4. There is no pericardial effusion. Assessment & Plan: Aracelis Monique is a 46 y.o. female with a history of obesity (BMI 31), HTN, HLD, DM2 on insulin, ASCVD, chronic pain on opiate therapy who [facility] (type I) found to have significant complex disease of the RCA and LAD with severely elevated LVEDP. ?? Admitted to the ICU on 09/02 because she developed recurrent ischemic chest pain and flash pulmonary edema, presumed due to ischemia, and was taken emergently back to the [facility] lab[facility] for IABP placement. 09/05: After aggressive diuresis and now s/p PCI to the RCA on 09/04, patient has remained stable anddoing well. Persistent wheezes and wet nonproductive cough is consistent with her baseline asthma, so we will resume her home steroids. Given her cough has not been productive and is consistent with her asthma which has been well controlled at home, we will discontinue oral steroids and antibiotic course today. Plan to discharge today and will arrange for close follow-up tomorrow during business hours. Plan is per below: PLAN: #Ischemic cardiomyopathy, HFrEF #Elevated LVEDP Preload: Pressures remain soft today and she appears euvolemic on exam. We will hold off on diuresistoday, with plan for close follow-up. She will likely need standing diuretic dose (good diuresis with 20 mg IV Lasix while inpatient). Afterload: continue losartan 25mg daily Contractility: Moderate sized LV apical akinesis. Global left ventricular systolic function is moderately reduced. The quantitative left ventricular ejection fraction by 3-D rendering is 37%. Cannot rule out a thrombus in the left ventricle. -Repeat TTE today with contrast to rule out thrombus #ASCVD #Type I NSTEMI s/p PCI to RCA --Continue ASA 81mg qd --continue atorvastatin 80mg qd --continue clopidogrel 75mg qd --Metoprolol succinate 50 mg daily --ARB as above --Nitroglycerin 0.4mg SL as needed for chest pain --Telemetry monitoring #Hx of Asthma Moist cough nonproductive of purulent sputum. We will discontinue p.o. steroids and antibiotics. -Budesonide nebulizer this morning prior to discharge - duonebs Q4H scheduled, Q2H RPN -Resume home Advair on discharge ?? #GIB, unlikely #KHARI, stable She has a history of gastric ulcers, though does not appear to have active GI bleed during this admission. Seen by GI, who opted not to scope - s/p 2-3 doses of IV venofer at the OSH - ferritin 207, Tsat 11 at [facility] [place] - started ferrous sulfate QOD on 09/04 - no endoscopy pursued by GI (no clinical evidence of GIB) ?? # Type II DM - home regimen: tresiba 100 U daily, victoza 1.8 mg subq daily, SSI - here: SSI, XIANG, glargine 30 U -Poorly controlled while inpatient. Resume home regimen upon discharge ?? # Chronic Pain - continue scheduled tylenol - continue home oxycodone 10 mg Q4H PRN - continue home gabapentin 600 mg BID, 1200 mg Nightly ?? # Other: - DVT prophylaxis: enoxaparin subq - Diet: Carb Control - Code Status: FULL - Dispo: pending course Ariel Rush MD PGY-1 Cardiology S2 (#[id number]) 09/05/21 CARDIOLOGY ATTENDING NOTE Patient: Aracelis Monique Date of Service: 09/05/2021 Date of Admission: 09/02/2021 Length of Stay Hospital Day 3 days Please see the above note by Dr. Rush for details. I have interviewed and examined the patient independently and I concur with the assessment and plan. The case was discussed on cardiology rounds and we reviewed the plan of care with the team and patient. In addition, I certify that I am a D-H credentialed attending provider with admitting privileges and that the patient meets or has met medical necessity to require an inpatient IPI level of care meeting a minimum of two midnights. ?? Ms. Monique is a 46 year old woman with history of HTN, HLD, DM, chronic pain who presented with chest pain in the setting of NSTEMI, with multivessel disease and significantly elevated LVEDP to 38 mm Hg.Also noted to be anemic. Has diuresed with improvement in volume status. Hb stable; appreciate GI consultation, no evidence of ongoing bleeding. Now s/p PCI to RCA; has residual LAD disease, will manage medically given diffuse nature of disease. TTE with LVEF ~35% with apical WMA, no LV thrombus. GDMTfor HFrEF. Stable for discharge today with outpatient follow-up. Rest per Dr. Rush. Serafin Lam MD, MPH, RPVI, FACC, FSVM Pager [phone] Cardiovascular Senior Java Developer[employer]ospatial [place] [address] Ruth Barros RN - 09/04/2021 4:52 PM ESTSummary: Progress note OUTCOME EVALUATION NOTE: OUTCOME SUMMARY: Pt AOx4. Pt intermittently anxious throughout shift. Pain moderately well controlled with PRN Oxycodone. Oxycodone frequency decreased from Q6 to Q4. At start of shift, Pt reported chest pain. Pain was described as pressure with intermittent sharp pain. Pain did not radiate. Pain was worse with deep breathing/coughing. MD notified and EKG obtained per chest pain protocol. No new changes on EKG. NS/ST. SBP in 90's for majority of shift. PO Metop held x1 for SBP in mid 80's. MD notified. Scheduled nebulizes administered. Pt has frequent and productive cough. Green sputum. MD visualized sputum. CXR obtained. Intermittent desat to mid-80's when at rest. Pt reports intermittent SOB when awake. RA to 2L NC. Arias DC-ed. Voids spontaneously into toilet. AUOP. Unsteady gait. Carb control diet. Pt frequently asks for snacks/items off menu. Education provided. Pt did not eat food outside of provided menu. FSBG pooly controlled; multiple FSBG in high-200's. MD aware. Sliding scale/meal coverage insulin adjusted. See MAR for details. Family updated. PLAN MOVING FORWARD: Ambulate as tolerated; encourage ambulation Monitor for chest pain and SOB Encourage coughing and deep breathing; PRN neb. Monitor diet intake; educated as indicated. FSBG Q4 and PRN per insulin order INDIVIDUALIZED FALL PREVENTION INTERVENTIONS: Patient-specific fall risk factors per assessment: [current deficits]: Generalized weakness; lines Assistance [level of assistance required for transfers and ambulation]: Standby assist - x2 assist Supervision [direct monitoring required during toileting and ADLs]: Ambulate to toilet; standby-x2 assist Surveillance [continuous indirect monitoring]: ICU monitoring Patient-specific fall prevention interventions for sensory deficits provided, if applicable: [X] N/A CPG GOAL OUTCOME EVALUATION: Ongoing Humza Chin MD - 09/04/2021 12:00 PM EST Inpatient Interventional Cardiology Follow Up Note 09/04/2021 12:00 PM ID: Aracelis Monique is a 46 y.o. w/ PMH of HTN, HLD, DM, chronic pain on opiates presented for NSTEMI, s/p PCI RCA. 24 Hour Events/ Subjective: No acute events overnight. No chest pain, sob, access site pain or bleeding. Current Medications: ??? glucose (GLUTOSE) 40% oral geL OR dextrose 10% infusion OR glucagon (Glucagen) (1 mg/mL)injection solution 1 mg ??? POCT Fingerstick Glucose AND insulin lispro (HumaLOG;Admelog) (100 unit/mL) subcutaneous injection vial 2-12 Units ??? insulin lispro (HumaLOG;Admelog) (100 unit/mL) subcutaneous injection vial 0-8 Units ??? ferrous sulfate EC tablet 325 mg ??? insulin glargine (Lantus;Semglee) (100 unit/mL) subcutaneous injection vial 30 Units ??? metoprolol tartrate (Lopressor) tablet 12.5 mg ??? ipratropium-albuteroL (Duoneb) 0.5 mg-3 mg(2.5 mg base)/3 mL nebulizer solution 3 mL ??? ipratropium-albuteroL (Duoneb) 0.5 mg-3 mg(2.5 mg base)/3 mL nebulizer solution 3 mL ??? predniSONE (Deltasone) tablet 40 mg ??? cefpodoxime (Vantin) tablet 200 mg ??? doxycycline monohydrate (Monodox) capsule 100 mg ??? [START ON 09/05/2021] pantoprazole EC (Protonix) tablet 40 mg ??? enoxaparin (Lovenox) (40 mg/0.4 mL) subcutaneous injection 40 mg ??? acetaminophen (Tylenol) tablet 975 mg ??? aspirin EC tablet 81 mg ??? guaiFENesin (Robitussin) (20 mg/mL) oral liquid 200 mg ??? lidocaine (Lidoderm) 5% patch 1 patch AND lidocaine (Lidoderm) topical patch REMOVAL ??? lidocaine (Lidoderm) 5% patch 3 patch AND lidocaine (Lidoderm) topical patch REMOVAL ??? sodium chloride 0.9 % (flush) (BD PosiFlush Normal Saline 0.9) flush 5 mL ??? sodium chloride 0.9 % (flush) (BD PosiFlush Normal Saline 0.9) flush 5-20 mL ??? lidocaine (Xylocaine) 1% (10 mg/mL) injection 3 mg ??? nitroGLYcerin (Nitrostat) disintegrating tablet 0.4 mg ??? sodium chloride 0.9 % (flush) (BD PosiFlush Normal Saline 0.9) flush 5 mL ??? sodium chloride 0.9 % (flush) (BD PosiFlush Normal Saline 0.9) flush 5-20 mL ??? nicotine (Nicoderm CQ) 7 mg/24 hr patch 7 mg AND nicotine (NICODERM CQ) 7 mg/24 hr patch Patch Verification AND nicotine (NICODERM CQ) 7 mg/24 hr patch Patch Removal ??? atorvastatin (Lipitor) tablet 80 mg ??? gabapentin (Neurontin) capsule 600 mg AND gabapentin (Neurontin) capsule 1,200 mg ??? clopidogreL (Plavix) tablet 75 mg ??? oxyCODONE (Roxicodone) tablet 10 mg ??? nitroGLYcerin (200 mcg/mL) in dextrose 5% 250 mL infusion ??? potassium chloride ER (K-Dur/Klor-Con) tablet 20 mEq OR potassium chloride ER (K-Dur/Klor-Con) tablet 40 mEq I/O: Intake/Output Summary (Last 24 hours) at 09/04/2021 1200 Last data filed at 09/04/2021 1100 Gross per 24 hour Intake 1048.45 ml Output 2045 ml Net -996.55 ml Physical Exam: Last value Range last 24 hrs Temperature Temp: 36.9 ??C (98.4 ??F) Temp: [36.9 ??C (98.4 ??F)-37 ??C (98.6 ??F)] Heart Rate Heart Rate: (!) 102 Heart Rate: [85-103] Blood Pressure BP: 96/61 BP: (83-127)/(45-94) Respiratory Rate Resp: 20 Resp: [14-30] SpO2 SpO2: 97 % SpO2: [90 %-99 %] Gen: AAOX3, pleasant and in NAD HEENT: sclera anicteric, EOMI, no periorbital edema Neck: Supple, no cm JVD Pulm: Normal respiratory effort, Lungs CTAB CV: RRR, s1 s2 normal, no m/r/g Abd: soft, NT, ND, NABS throughout Ext: no edema, no clubbing, no cyanosis. Vascular: 2+ radial pulses bilaterally, 2+ DP pulses bilaterally Neuro: no focal deficits grossly noted. Access site: r radial and RCFA Labs reviewed, of note: Lab Results Component Value Date WBC 9.3 09/04/2021 HGB 9.4 (L) 09/04/2021 HCT 30.9 (L) 09/04/2021 MCV 76.5 (L) 09/04/2021 PLATELET 358 (H) 09/04/2021 Lab Results Component Value Date NA 140 09/04/2021 K 4.4 09/04/2021 CL 104 09/04/2021 CO2 Not Perf 09/04/2021 BUN 16 09/04/2021 CREATININE 0.69 (L) 09/04/2021 GLUCOSE 117 09/02/2021 GLUCFASTING 362 (H) 09/04/2021 CALCIUM 8.9 09/04/2021 ESTGFR 104 09/04/2021 Cardiovascular studies: See op note Assessment: Aracelis Monique is a 46 y.o. female who presented for NSTEMI. Now s/p PCI ostial/prox/mid RCA. Plan: Continue dual antiplatelet regimen for 1 year. Pt currently on ASA and plavix. Continue high intensity statin, currently on atorvastatin 80. Cardiac rehab Aggressive treatment of cardiac comorbidities- namely DM, HTN, HLD Stable access site. Radial and femoral precautions discussed Discussed with Dr Nena Chin MD PGY-7 Interventional Cardiology [facility] Serafin Lam MD - 09/04/2021 9:53 AM EST Inpatient Cardiology Progress Note Hospital Day 2 days Active Hospital Problems Diagnosis ??? NSTEMI (non-ST elevated myocardial infarction) Resolved Hospital Problems No resolved problems to display. ID: Aracelis Monique is a 46 y.o. female with a history of obesity (BMI 31), HTN, HLD, DM2 on insulin, ASCVD, chronic pain on opiate therapy who [facility] (type I) found to have significant complex disease of the RCA and LAD with severely elevated LVEDP. ?? Admitted to the ICU on 09/02 because she developed recurrent ischemic chest pain and flash pulmonary edema, presumed due to ischemia, and was taken emergently back to the tree tapping laborer for IABP placement. After aggressive diuresis and now s/p PCI to the RCA on 09/04, patient transferred back to the [facility]. ?? 24 Hour Events/Subjective: - s/p PCI to the RCA on the evening of 09/04; AAOx4 - Continues to have productive cough and significant expiratory wheezes, on 2 L MN - Reports pleuritic chest pain as well; EKG this AM non-ischemic - Post-cath check benign overnight - IABP, RIJ, and arias catheter removed prior to transfer back to the [facility] post-cath - Had 11 beat run of VT overnight; asymptomatic (Mg replaced) - Apparently eating candy she brought with her prior to admission, caused bump in BSs - NN 1.8 L (u/o = 2.67 L) s/p 20 mg IV lasix x1 Inpatient Medications: Scheduled Meds: ??? insulin lispro 2-12 Units Subcutaneous Q4H ALAN ??? insulin lispro 0-8 Units Subcutaneous TID WC ??? ferrous sulfate EC 325 mg Oral Every Other Day ??? insulin glargine 30 Units Subcutaneous Nightly ??? metoprolol tartrate 12.5 mg Oral Q6H ALAN ??? ipratropium-albuteroL 3 mL Nebulization Q4H ALAN ??? predniSONE 40 mg Oral Daily ??? cefpodoxime 200 mg Oral BID ??? Doxycycline Monohydrate 100 mg Oral 2 times per day ??? acetaminophen 975 mg Oral Q8H ??? aspirin EC 81 mg Oral Daily ??? lidocaine 1 patch Transdermal Q24H And ??? lidocaine 1 patch Transdermal Q24H ??? lidocaine 3 patch Transdermal Q24H And ??? lidocaine 3 patch Transdermal Q24H ??? sodium chloride 0.9 % (flush) 5 mL Intravenous BID ??? sodium chloride 0.9 % (flush) 5 mL Intravenous BID ??? nicotine 1 patch Transdermal Daily And ??? Patch Verification 1 patch Transdermal BID And ??? nicotine 1 patch Transdermal Daily ??? budesonide-formoteroL 2 Inhalation Inhalation BID ??? atorvastatin 80 mg Oral QPM ??? gabapentin 600 mg Oral 2 times per day And ??? gabapentin 1,200 mg Oral Nightly ??? clopidogreL 75 mg Oral Daily ??? pantoprazole 40 mg Intravenous BID Continuous Infusions: ??? nitroGLYcerin Stopped (09/02/21 5169) PRN Meds: glucose 40% oral geL OR dextrose 10% OR glucagon, ipratropium-albuteroL, guaiFENesin, sodiumchloride 0.9 % (flush), lidocaine, nitroGLYcerin, sodium chloride 0.9 % (flush), oxyCODONE, potassium chloride ER OR potassium chloride ER Vitals: Last value Range last 24 hrs Temperature Temp: 37 ??C (98.6 ??F) Temp: [36.8 ??C (98.2 ??F)-37.1 ??C (98.8 ??F)] Heart Rate Heart Rate: (!) 102 Heart Rate: [85-103] Blood Pressure BP: 96/61 BP: (83-127)/(45-94) Respiratory Rate Resp: 18 Resp: [14-30] SpO2 SpO2: 97 % SpO2: [90 %-99 %] Ins/Outs: Intake/Output Summary (Last 24 hours) at 09/04/2021 0959 Last data filed at 09/04/2021 0804 Gross per 24 hour Intake 1125.45 ml Output 2970 ml Net -1844.55 ml Patient Vitals for the past 168 hrs: Weight 09/04/21 0606 79.2 kg (174 lb 9.7 oz) 09/03/21 0423 77.8 kg (171 lb 8.3 oz) 09/02/21 1229 82.7 kg (182 lb 5.1 oz) Admit wt: 82.7 kg Physical Exam: General: Resting in bed, appears tired HEENT: Poor dentition, anicteric sclera. Moist mucous membranes Neck: Supple with normal ROM. Normal JVP. cardiac: Normal S1 and S2, Regular rate and rhythm; No murmrs/gallops/rubs. 3+ radial pulses bilaterally. Diminished but present DP pulses bilaterally Respiratory: Diffuse expiratory wheezing on 2 L NC Abd: + BS; soft, mild diffuse ttp, non-distended, no obvious masses. Ext: WWP without le edema Neuro: Alert and orientated, no-focal deficits Laboratory: CBC: Recent Labs 09/04/21 0247 09/03/216 09/03/21 0045 09/02/21 1740 WBC 9.3 -- 12.1* 11.6* HGB 9.4* 9.5* 9.7* 9.3* PLATELET 358* -- 432* 428* Chemistry: Recent Labs 09/04/21 0247 09/03/21 0400 09/03/21 0045 09/02/21 2205 09/02/21 1740 09/02/21 1330 NA 140 -- 141 -- 140 140 141 K 4.4 4.3 3.8 < > 3.9 3.9 4.1 CL 104 -- 100 -- 102 102 105 CO2 Not Perf -- 28 -- 26 26 24 BUN 16 -- 12 -- 12 12 14 CREATININE 0.69* -- 0.71 -- 0.63* 0.63* 0.65* GLUCOSE -- -- -- -- 117 180 < > = values in this interval not displayed. Recent Labs 09/04/21 0247 09/03/21 0045 09/02/21 1740 09/02/21 1330 CALCIUM 8.9 8.6 8.5 8.5 8.4* MAGNESIUM 0.89 1.16* 0.65* 0.69 PHOS -- -- -- 3.3 LFT's: Recent Labs 09/03/21 0045 09/02/21 1740 09/02/21 1330 BILITOT 0.3 0.2 <0.2* BILIDIR -- -- 0.1 ALBUMIN 3.7 3.7 3.6 ALKPHOS 84 82 82 ALT 8 12 11 AST 11 12 12 Coags: Recent Labs 09/02/21 1330 PT 11.9 INR 1.0 PTT 38* Cardiac enzymes: Recent Labs 09/03/21 0620 09/02/21 1330 TROPONINT 0.07* 0.03* Endocrine: Recent Labs 09/02/21 1740 TSH 2.32 Diagnostic Studies: Results for orders placed or performed during the hospital encounter of 09/02/21 XR Chest One View (Exam End: 09/02/2021 5:45 PM) Impression Pulmonary vascular congestion. Corinna-Tavia catheter tip at the right main pulmonary artery. Radiopaque marker of IABP catheter at the aortic knob. Thank you for letting us participate in the care of this patient. If you are a health care provider and have any questions regarding this report, please contact the number below. For patients who have questions please contact the health clinical care leader that requested your imaging first. Electronically signed by: Billie Juan MD, [facility] ([phone]), at 09/02/2021 7:28 PM TTE 09/03/21: SUMMARY: 1. The left ventricle is mildly dilated. Moderate sized LV apical akinesis. Global left ventricular systolic function is moderately reduced. The quantitative left ventricular ejection fraction by 3-D rendering is 37%. Cannot rule out a thrombus in the left ventricle. 2. The right ventricle is normal in size. Right ventricular globalsystolic function is normal. 3. There is moderate (2+/4+) mitral regurgitation present. 4. There is no pericardial effusion. Assessment & Plan: Aracelis Monique is a 46 y.o. female with a history of obesity (BMI 31), HTN, HLD, DM2 on insulin, ASCVD, chronic pain on opiate therapy who [facility] (type I) found to have significant complex disease of the RCA and LAD with severely elevated LVEDP. ?? Admitted to the ICU on 09/02 because she developed recurrent ischemic chest pain and flash pulmonary edema, presumed due to ischemia, and was taken emergently back to the tree tapping laborer for IABP placement. After aggressive diuresis and now s/p PCI to the RCA on 09/04, patient transferred back to the [facility] overnight on 09/03. Plan is per below: PLAN: #Ischemic cardiomyopathy, HFrEF #Elevated LVEDP Preload: Pressures soft today, -1.8 NN in last 24 hours after 1x 20 mg IV lasix. Hold off on furtherdiuresis this morning (may be on left side of starling curve). s/p removal of IABP on 09/03 after cardiac cath. - will need PO diuretic regimen on discharge Afterload: add ACEi/ARB when pressures allow Contractility: Moderate sized LV apical akinesis. Global left ventricular systolic function is moderately reduced. The quantitative left ventricular ejection fraction by 3-D rendering is 37%. Cannot rule out a thrombus in the left ventricle. #ASCVD #Type I NSTEMI s/p PCI to RCA --EKG PRN --resume ASA 81mg qd --continue atorvastatin 80mg qd --continue clopidogrel 75mg qd --start metoprolol 12.5 q6h --hold on ARB/ACEi given pressures --Nitroglycerin 0.4mg SL as needed for chest pain --Telemetry monitoring #COPD Exacerbation #Hx of COPD and ?Asthma Productive sputum + dyspnea - start cefpodoxime and doxycyline (5 day course) - prednisone 40 mg daily (5 day course) - duonebs Q4H scheduled, Q2H RPN - CXR today ?? #?GIB, unlikely #KHARI, stable - s/p 2-3 doses of IV venofer at the OSH - ferritin 207, Tsat 11 at [facility] [place] - started ferrous sulfate QOD on 09/04 - no endoscopy pursued by GI (no clinical evidence of GIB) ?? # Type II DM - home regimen: tresiba 100 U daily, victoza 1.8 mg subq daily, SSI - here: SSI, XIANG, glargine 30 U - consult to DM management ?? # Chronic Pain - continue scheduled tylenol - continue home oxycodone 10 mg Q4H PRN - continue home gabapentin 600 mg BID, 1200 mg Nightly ?? # Other: - DVT prophylaxis: enoxaparin subq - Diet: Carb Control - Code Status: FULL - Dispo: pending course Mirza Robbins, DO PGY-3 Cardiology S2 (#[id number]) 09/04/21 CARDIOLOGY ATTENDING NOTE Patient: Aracelis Monique Date of Service: 09/04/2021 Date of Admission: 09/02/2021 Length of Stay Hospital Day 2 days Please see the above note by Dr. Robbins for details. I have interviewed and examined the patient independently and I concur with the assessment and plan. The case was discussed on cardiology rounds and we reviewed the plan of care with the team and patient. In addition, I certify that I am a D-H credentialed attending provider with admitting privileges and that the patient meets or has met medical necessity to require an inpatient IPI level of care meeting a minimum of two midnights. Ms. Monique is a 46 year old woman with history of HTN, HLD, DM, chronic pain who presented with chest pain in the setting of NSTEMI, with multivessel disease and significantly elevated LVEDP to 38 mm Hg.Also noted to be anemic. Has diuresed with improvement in volume status. Hb stable; appreciate GI consultation, no evidence of ongoing bleeding. Now s/p PCI to RCA; has residual LAD disease, will discuss with interventional colleagues whether amenable to intervention vs medical management. TTE with EF37%. Continue BB; will need GDMT for HFrEF. Treating for COPD exacerbation. Rest per Dr. Robbins. Serafin Lam MD, MPH, RPVI, FACC, FS Pager [phone] Cardiovascular Senior Java Developer[employer]ospatial [place] [address] Ernesto Henderson MD - 09/04/2021 6:34 AM EST Post Cardiac Catheterization Check Note Subjective: No chest pain, dyspnea, abdominal. Pt reports chronic back pain, some pain around right groin and right hand/arm pain. No rash. No weakness/numbness/tingling. No bleeding/swelling from access site. Objective: Blood pressure 92/57, pulse 94, temperature 36.9 ??C (98.4 ??F), temperature source Oral, resp. rate18, height 162.6 cm (5' 4), weight 79.2 kg (174 lb 9.7 oz), SpO2 98 %. General: Lying in bed in NAD. Site: access site without hematoma or ecchymoses. dressing c/d/i. No bruit. Patient diffusely tenderevery point touched (chronic, not new for the patient). Extrem: no livedo reticularis, warm/symmetric, sensation intact/symmetric, symmetric 2+ PT/DP, radial pulses. A/P: s/p cath with benign-appearing right radial and right femoral access site and no issues Ernesto Henderson MD Yumi Garcia MD - 09/03/2021 10:16 AM EST Cardiovascular Critical Care Attending Note Aracelis Monique 1975 Age: 46 y.o. PCP: Valentin Parekh MD Date of Service: 09/03/2021 Date of Admission: 09/02/2021 Length of Stay Hospital Day 1 day Patient ID: Aracelis Monique is a 46 y.o. female with a history of obesity (BMI 31), HTN, HLD, DM2 on insulin, ASCVD, chronic pain on opiate therapy who [facility] (type I) found to have significant complex disease of the RCA and LAD with severely elevated LVEDP. She is admitted to the ICU because she developed recurrent ischemic chest pain and flash pulmonary edema, presumed due to ischemia, and was taken emergently back to the tree tapping laborer for IABP placement. The patient was seen and examined on critical care rounds. Aracelis Monique is a 46 y.o. female with the following active issues: ?? NSTEMI, type I in the setting of obstructive 2 vessel ASCVD ?? Medication refractory ischemic chest pain s/p IABP placement ?? Flash pulmonary edema in the setting of refractory ischemia and volume overload s/p IABP placement ?? Acute decompensated heart failure, currently unspecified whether systolic or diastolic ?? Diabetes Mellitus type II, with current good inpatient glycemic control ?? Acute on chronic pain with opiate dependence ?? Asthma/COPD ?? Hyperlipidemia ?? Active smoking/tobacco nicotine dependence Interval History: ?? Tolerated IABP overnight with CP under control ?? Good UOP. Net negative about 2.5L since tree tapping laborer ?? Pain control an ongoing issue despite multimodal approach ?? Seen by GI who do not feel she is actively bleeding and are not recommending endoscopy MEDICATIONS: Scheduled Meds: ??? acetaminophen 975 mg Oral Q8H ??? lidocaine 3 patch Transdermal Q24H And ??? lidocaine 3 patch Transdermal Q24H ??? aspirin EC 81 mg Oral Daily ??? ipratropium-albuteroL 3 mL Nebulization Q6H ??? insulin lispro 1-6 Units Subcutaneous Q4H ALAN ??? sodium chloride 0.9 % (flush) 5 mL Intravenous BID ??? sodium chloride 0.9 % (flush) 5 mL Intravenous BID ??? nicotine 1 patch Transdermal Daily And ??? Patch Verification 1 patch Transdermal BID And ??? nicotine 1 patch Transdermal Daily ??? budesonide-formoteroL 2 Inhalation Inhalation BID ??? atorvastatin 80 mg Oral QPM ??? gabapentin 600 mg Oral 2 times per day And ??? gabapentin 1,200 mg Oral Nightly ??? clopidogreL 75 mg Oral Daily ??? pantoprazole 40 mg Intravenous BID Continuous Infusions: ??? heparin (porcine) infusion 900 Units/hr (09/03/21 0600) ??? nitroGLYcerin Stopped (09/02/21 1845) EXAM: Last value Range last 24 hrs Temperature Temp: 36.9 ??C (98.4 ??F) Temp: [36.9 ??C (98.4 ??F)-37.4 ??C (99.3 ??F)] Heart Rate Heart Rate: 92 Heart Rate: [90-105] Blood Pressure BP: 99/55 BP: (90-109)/(43-71) Respiratory Rate Resp: 23 Resp: [20-35] SpO2 SpO2: 92 % SpO2: [92 %-100 %] Art BP BP (Arterial Line): 87/61 BP (Arterial Line): (84-113)/(48-97) Weights: Patient Vitals for the past 168 hrs: Weight 09/03/21 0423 77.8 kg (171 lb 8.3 oz) 09/02/21 1229 82.7 kg (182 lb 5.1 oz) Gen- Middle aged woman, uncomfortable but in NAD HEENT- NC/AT, sclera anicteric. RIJ Intro/PAC in place CV- Regular rhythm, normal rate Pulm- Mildly tachypneic with frequent coughing and coarse rhonchorous breath sounds Abd- Obese, benign Ext- WWP, no edema, Normal PT pulses bilaterally Neuro- Alert, oriented, appropriate. Moving all extremities. Psych- Appears less anxious this morning Skin- Warm, non-diaphoretic, Multiple tattoos. Multiple punctate excoriations. Lines- RIJ Intro/PAC. RFA IABP site benign. 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 PCI was deferred at that time due to concern for recent hematemesis and evidence of iron deficiency anemia, however, GI does not feel the patient is actively bleeding and does not recommend endoscopy. Given this, and stabilization of the patient's respiratory status, will proceed to PCI today. Neuro- Multimodal pain control with oxycodone (fentanyl for breakthrough), lidocaine patch, gabapentin, APAP. Cardiovascular- Continue IABP until revascularized, can likely remove in the tree tapping laborer. Removal of PAC after reasonable as well. Continue DAPT and UFH. Continue atorvastatin. Diuresis for slightly net negative. Pulmonary- Oxygenation adequate on LFNC. No further BiPAP required. Continue budesonide/fomoterol and duonebs for COPD. Pulmonary hygiene. FEK- Excellent UOP in response to furosemide. Monitor and replete lytes as needed. GI- Continue pantoprazole IV bid. No plan for endoscopy per GI. ID- No acute issues. Heme- Iron deficiency anemia of unclear cause; s/p Venofer. Continue UFH and DAPT. Trend hgb. Endo- FSGs + basal/bolus insulin Psych- Reassurance. Nicotine replacement therapy. IS THE PATIENT CRITICALLY ILL? Is there a high potential of sudden, clinically significant, or life threatening deterioration? Yes Is there a need for direct personal assessment and management to treat/prevent multiple vital organ failure/deterioration? Yes If this patient is not critically ill, the reason for continued hospitalization is NA. PATIENT IS CRITICALLY ILL WITH THESE DIAGNOSES BEING MANAGED BY Cardiology team providing critical care services ARDS X PA Catheter Hyponatremia Hypoxemic Resp Failure Cardiogenic Shock Hypernatremia Pneumonia req Ventilator X Acute Myocardial Infarction Hyperkalemia Hypercarbic Resp Failure Subarachnoid Hemorrhage Acute Drug Ingestion / OD Respiratory Acidosis Traumatic Brain Injury Acute Renal Failure Acute Resp Failure Coma Acute Liver Failure Metabolic Acidosis Stupor Thrombocytopenia Hypotension, Fluids Delirium Neutropenia Hypotension, Pressors Acute Encephalopathy Hypertensive Emergency Sepsis Ascites Req Treatment Malnutrition Septic Shock with SIRS Coagulopathy Req Treatment Intraaortic Balloon Pump Anaphylaxis Active Hemorrhage I personally performed 40 minutes of aggregate critical care time exclusive of procedures and teaching. This includes time spent during direct patient evaluation and reassessment, interpreting diagnostic tests, directing life and/or organ supporting interventions and documentation on the unit. Yumi Garcia MD 09/03/2021 Jessica Coppola PT - 09/03/2021 10:08 AM EST Physical Therapy Contact Note Consult received, thank you, and pt history reviewed in eDH. Unable to complete initial physical therapy assessment at this time. Per chart, pt has IABP iin place. Spoke with RN who confirmed. Pt not appropriate for PT at this time. PT to follow up Monday as able/appropriate. Please page this real estate underwriter if you have any questions, thank you. Jessica Bhatt PT, DPT Pager #[phone] Physical Therapy Inpatient Rehabilitation Serafin Salmeron MD - 09/03/2021 8:35 AM EST Cardiovascular Critical Care Attending Note Aracelis Monique 1975 Age: 46 y.o. PCP: Valentin Parekh MD Date of Service: 09/03/2021 Date of Admission: 09/02/2021 Length of Stay Hospital Day 1 day The patient was seen and examined on critical care rounds. Aracelis Monique is a 46 y.o. female with the following active issues: Active Hospital Problems Diagnosis ??? NSTEMI (non-ST elevated myocardial infarction) Resolved Hospital Problems No resolved problems to display. 24 hour events: - Continues on IABP, chest pain improved - Brisk diuresis with IV furosemide, -2.5L et negative - Hb stable MEDICATIONS: Scheduled Meds: ??? acetaminophen 975 mg Oral Q8H ??? aspirin EC 81 mg Oral Daily ??? ipratropium-albuteroL 3 mL Nebulization Q6H ??? insulin lispro 1-6 Units Subcutaneous Q4H ALAN ??? insulin lispro 0-8 Units Subcutaneous TID WC ??? lidocaine 1 patch Transdermal Q24H And ??? [START ON 09/04/2021] lidocaine 1 patch Transdermal Q24H ??? lidocaine 3 patch Transdermal Q24H And ??? [START ON 09/04/2021] lidocaine 3 patch Transdermal Q24H ??? sodium chloride 0.9 % (flush) 5 mL Intravenous BID ??? sodium chloride 0.9 % (flush) 5 mL Intravenous BID ??? nicotine 1 patch Transdermal Daily And ??? Patch Verification 1 patch Transdermal BID And ??? nicotine 1 patch Transdermal Daily ??? budesonide-formoteroL 2 Inhalation Inhalation BID ??? atorvastatin 80 mg Oral QPM ??? gabapentin 600 mg Oral 2 times per day And ??? gabapentin 1,200 mg Oral Nightly ??? clopidogreL 75 mg Oral Daily ??? pantoprazole 40 mg Intravenous BID Continuous Infusions: ??? heparin (porcine) infusion 1,050 Units/hr (09/03/21 1211) ??? nitroGLYcerin Stopped (09/02/21 1845) EXAM: Last value Range last 24 hrs Temperature Temp: 37.1 ??C (98.8 ??F) Temp: [36.8 ??C (98.2 ??F)-37.4 ??C (99.3 ??F)] Heart Rate Heart Rate: 85 Heart Rate: [85-102] Blood Pressure BP: 90/48 BP: (90-123)/(43-62) Respiratory Rate Resp: 22 Resp: [16-30] SpO2 SpO2: 95 % SpO2: [92 %-100 %] Art BP BP (Arterial Line): 84/53 BP (Arterial Line): (79-113)/(48-97) Weights: Patient Vitals for the past 168 hrs: Weight 09/03/21 0423 77.8 kg (171 lb 8.3 oz) 09/02/21 1229 82.7 kg (182 lb 5.1 oz) Gen- Middle aged woman laying in bed, appears uncomfortable HEENT- anicteric sclera Chest- Regular rhythm CV- Clear anteriorly Abd- Soft, nontender Ext- No edema ROLL TENDER- No gross abnormalities noted Psych- Anxious TTE 09/03/2021: 1. The left ventricle is mildly dilated. Moderate sized LV apical akinesis. Global left ventricular systolic function is moderately reduced. The quantitative left ventricular ejection fraction by 3-D rendering is 37%. Cannot rule out a thrombus in the left ventricle. 2. The right ventricle is normal in size. Right ventricular global systolic function is normal. 3. There is moderate (2+/4+) mitral regurgitation present. 4. There is no pericardial effusion. Cath 09/02/2021: Hemodynamics: Right Heart Pressures Resting: Syst Diast EDP a v m RA 7 5 4 RV 35 8 PA 35 7 20 PCW 13 14 10 Hemodynamic Profile: Profile 1 CO 5.46 CI 2.90 TSR 952 SVR 894 TPR 293 PVR 147 Left Heart Pressures Resting: Syst Diast EDP a v m Ao 82 54 65 LV 82 38 Oximetry: Location %Sat Location %Sat Main Pulmonary Artery 65.0 Coronary Angiography: Dominance: Right Left Main There was mild diffuse (<=25% stenosis) disease of the entire vessel segment of the left main artery. Left Anterior Descending There was mild diffuse (<=25% stenosis) disease of the entire vessel segment of the left anterior descending artery (LAD). The LAD was large. The mid segment of the LAD had a long segmental 70% stenosis. This lesion involved bifurcation. Left Circumflex Right Coronary Artery There was a 70% eccentric and ulcerated long segmental stenosis of the proximal segment of the right coronary artery (RCA). The RCA was large. Distal flow was normal and was via the [place] vessel. The mid segment of the RCA had an eccentric and ulcerated single discrete 90% stenosis. ASSESSMENT, MANAGEMENT, and DECISION MAKING: #1 NSTEMI #2 Acute HFrEF #3 Anemia #4 Hypertension #5 Hyperlipidemia #6 DM2 #7 Chronic pain Ms. Monique is a 46 year old woman with history of HTN, HLD, DM, chronic pain who presented with chest pain in the setting of NSTEMI, with multivessel disease and significantly elevated LVEDP to 38 mm Hg.Also noted to be anemic. Has diuresed with improvement in volume status. Hb stable; appreciate GI consultation, no evidence of ongoing bleeding. Will plan for PCI today; continue treatment for NSTEMI. Plan: 1. PCI for treatment of multivessel disease. 2. Gentle diuresis, keep net even to slightly net negative. 3. Continue to trend H/H, continue PPI. 4. Continue high intensity statin, DAPT. Will plan BB once IABP out. 5. Optimize GDMT for HFrEF in the next several days. IS THE PATIENT CRITICALLY ILL? Is there a high potential of sudden, clinically significant, or life threatening deterioration? Yes Is there a need for direct personal assessment and management to treat/prevent multiple vital organ failure/deterioration? Yes PATIENT IS CRITICALLY ILL WITH THESE DIAGNOSES BEING MANAGED BY Cardiology team providing critical care services ARDS x PA Catheter Hyponatremia Hypoxemic Resp Failure Cardiogenic Shock Hypernatremia Pneumonia req Ventilator x Acute Myocardial Infarction Hyperkalemia Hypercarbic Resp Failure Subarachnoid Hemorrhage Acute Drug Ingestion / OD Respiratory Acidosis Traumatic Brain Injury Acute Renal Failure Acute Resp Failure Coma Acute Liver Failure Metabolic Acidosis Stupor Thrombocytopenia Hypotension, Fluids Delirium Neutropenia Hypotension, Pressors Acute Encephalopathy Hypertensive Emergency Sepsis Ascites Req Treatment Malnutrition Septic Shock with SIRS Coagulopathy Req Treatment Anaphylaxis Active Hemorrhage I personally performed 35 minutes of aggregate critical care time exclusive of procedures and teaching. This includes time spent during direct patient evaluation and reassessment, interpreting diagnostic tests, directing life and/or organ supporting interventions and documentation on the unit. Serafin Lam MD 09/03/2021 Ariel Deleon MD - 09/03/2021 8:33 AM EST Inpatient Cardiology Progress Note Hospital Day 1 day Active Hospital Problems Diagnosis ??? NSTEMI (non-ST elevated myocardial infarction) Resolved Hospital Problems No resolved problems to display. ID: Ms. Monique is a 46 yo active smoker, HLD, HTN, Type II DM, chronic pain (on opiates), family history of CAD, recent COVID-19 infection in June 2021 who presented to [facility] with chest pain concerning for type I NSTEMI. 24 Hour Events/Subjective: -Severe pain overnight, not relieved with her home high opioid regimen -Seen by GI yesterday thought to have low risk of GI bleed -No active melena or hematochezia, no bowel movement since yesterday, still passing gas -She got 40+80 mg IV Lasix yesterday evening with net negative output of 2.5 L, now slowing down -Ongoing coughing/wheezing overnight, which she attributes to her history of chronic asthma -She reports severe pain at IJ catheter site -She denies chest pain this morning, breathing is improved ROS: Denies fevers/chills, chest pain, shortness of breath, diarrhea/vomiting/abdominal pain/constipation, muscle aches or weakness. Inpatient Medications: Scheduled Meds: ??? acetaminophen 975 mg Oral Q8H ??? lidocaine 3 patch Transdermal Q24H And ??? lidocaine 3 patch Transdermal Q24H ??? sodium chloride 0.9 % (flush) 5 mL Intravenous BID ??? sodium chloride 0.9 % (flush) 5 mL Intravenous BID ??? nicotine 1 patch Transdermal Daily And ??? Patch Verification 1 patch Transdermal BID And ??? nicotine 1 patch Transdermal Daily ??? budesonide-formoteroL 2 Inhalation Inhalation BID ??? atorvastatin 80 mg Oral QPM ??? insulin lispro 1-5 Units Subcutaneous TID AC ??? gabapentin 600 mg Oral 2 times per day And ??? gabapentin 1,200 mg Oral Nightly ??? clopidogreL 75 mg Oral Daily ??? insulin lispro 3-6 Units Subcutaneous TID WC ??? pantoprazole 40 mg Intravenous BID Continuous Infusions: ??? heparin (porcine) infusion 900 Units/hr (09/03/21 0600) ??? insulin regular human Stopped (09/02/211814) ??? nitroGLYcerin Stopped (09/02/211844) PRN Meds: sodium chloride 0.9 % (flush), lidocaine, nitroGLYcerin, sodium chloride 0.9 % (flush), ipratropium-albuteroL, heparin (porcine) AND heparin (porcine) infusion, midazolam (PF), atropine, fentaNYL (PF), insulin regular human, glucose 40% oral geL OR dextrose 10% OR glucagon, oxyCODONE, fentaNYL (PF), potassium chloride ER OR potassium chloride ER Vitals: Last value Range last 24 hrs Temperature Temp: 36.9 ??C (98.4 ??F) Temp: [36.9 ??C (98.4 ??F)-37.4 ??C (99.3 ??F)] Heart Rate Heart Rate: 92 Heart Rate: [90-105] Blood Pressure BP: 99/55 BP: (90-109)/(43-71) Respiratory Rate Resp: 23 Resp: [20-35] SpO2 SpO2: 92 % SpO2: [92 %-100 %] Ins/Outs: Intake/Output Summary (Last 24 hours) at 09/03/2021 0833 Last data filed at 09/03/2021 0800 Gross per 24 hour Intake 816.64 ml Output 3370 ml Net -2553.36 ml Patient Vitals for the past 168 hrs: Weight 09/03/21 0423 77.8 kg (171 lb 8.3 oz) 09/02/21 1229 82.7 kg (182 lb 5.1 oz) Admit wt: 82.7 kg Physical Exam: General: Resting in bed, in in mild distress, complaining of pain this morning HEENT: poor dentition, anicteric sclera. Moist mucous membranes Neck: Supple with normal ROM. Normal JVP, IJ catheter without surrounding erythema. cardiac: Normal S1 and S2, Regular rate and rhythm; No murmrs/gallops/rubs. 3+ radial pulses bilaterally. Diminished but present DP pulses bilaterally Respiratory: diffuse expiratory wheezing on 2 L NC Abd: + BS; soft, mild diffuse ttp, non-distended, no obvious masses. Ext: WWP without le edema Neuro: Alert and orientated, no-focal deficits Laboratory: CBC: Recent Labs 09/03/21 0045 09/02/21 1740 09/02/21 1330 WBC 12.1* 11.6* 10.6* HGB 9.7* 9.3* 8.9* PLATELET 432* 428* 419* Chemistry: Recent Labs 09/03/21 0400 09/03/21 0045 09/02/21 2205 09/02/21 1740 09/02/21 1330 NA -- 141 -- 140 140 141 K 4.3 3.8 3.9 3.9 3.9 4.1 CL -- 100 -- 102 102 105 CO2 -- 28 -- 26 26 24 BUN -- 12 -- 12 12 14 CREATININE -- 0.71 -- 0.63* 0.63* 0.65* GLUCOSE -- -- -- 117 180 Recent Labs 09/03/21 0045 09/02/21 1740 09/02/21 1330 CALCIUM 8.6 8.5 8.5 8.4* MAGNESIUM 1.16* 0.65* 0.69 PHOS -- -- 3.3 LFT's: Recent Labs 09/03/21 0045 09/02/21 1740 09/02/21 1330 BILITOT 0.3 0.2 <0.2* BILIDIR -- -- 0.1 ALBUMIN 3.7 3.7 3.6 ALKPHOS 84 82 82 ALT 8 12 11 AST 11 12 12 Coags: Recent Labs 09/02/21 1330 PT 11.9 INR 1.0 PTT 38* Cardiac enzymes: Recent Labs 09/03/21 0620 09/02/21 1330 TROPONINT 0.07* 0.03* Endocrine: Recent Labs 09/02/21 1740 TSH 2.32 TSat=11, ferritin 207 Heme: No results for input(s): LDH, HAPTOGLOBIN, URICACID in the last 168 hours. Microbiology: None Diagnostic Studies: Results for orders placed or performed during the hospital encounter of 09/02/21 XR Chest One View (Exam End: 09/02/2021 5:45 PM) Impression Pulmonary vascular congestion. Corinna-Tavia catheter tip at the right main pulmonary artery. Radiopaque marker of IABP catheter at the aortic knob. Thank you for letting us participate in the care of this patient. If you are a health care provider and have any questions regarding this report, please contact the number below. For patients who have questions please contact the health clinical care leader that requested your imaging first. Electronically signed by: Billie Juan MD, [facility] ([phone]), at 09/02/2021 7:28 PM TTE 09/03/21: SUMMARY: ?? 1. The left ventricle is mildly dilated. Moderate sized LV apical akinesis. Global left ventricular systolic function is moderately reduced. The quantitative left ventricular ejection fraction by 3-D rendering is 37%. Cannot rule out a thrombus in the left ventricle. 2. The right ventricle is normal in size. Right ventricular global systolic function is normal. 3. There is moderate (2+/4+) mitral regurgitation present. 4. There is no pericardial effusion. Assessment & Plan: Ms. Monique is a 46 yo active smoker, HLD, HTN, Type II DM, chronic pain (on opiates), family history of CAD, recent COVID-19 infection in June 2021 who presented to [facility] with chestpain concerning for type I NSTEMI. ? In the tree tapping laborer, she was noted to have intervenable proximal RCA and mid-LAD though given development of hypotension, an LVEDP of 40, and ?GI bleed (drop from 12-->9 in Hbg). GI has been consulted. IABP was placed with plan for PCI pending GI workup. 09/03: Remained stable on balloon pump, though with severe pain at IJ site which required muscle dilation. Her filling pressures remain slightly elevated so we will diurese judiciously with plan for PCItoday. ?? PLAN: Cardiovascular Pump #Elevated LVEDP --Preload: (Diuretic plan: Boluses) - s/p 40 mg IV lasix in the tree tapping laborer - Goal NN 1 L --Afterload: IABP to augment coronary perfusion ?? Ischemia #ASCVD #Type I NSTEMI --EKG PRN - Trend Troponin --resume ASA 81mg qd --continue atorvastatin 80mg qd --continue clopidogrel 75mg qd --continue heparin gtt --hold BB/ACEI pending revascularization - Nitroglycerin 0.4mg SL as needed for chest pain - hold metoprolol pending HR, BP trends - Telemetry monitoring - TTE done at OSH; repeat ordered - balloon pump - plan for PCI today ?? #?GIB #hematemesis, reported - IV pantoprazole BID - two large bore IVs - Active T&S - transfuse to maintain Hbg > 8 - NPO for now - GI consulted with low suspicion for GI bleed so we will continue to monitor ?? #KHARI, stable - s/p 2-3 doses of IV venofer at the OSH - ferritin 207, Tsat 11 at [facility] [place] -consider additional IV iron while here ?? # Type II DM - home regimen: tresiba 100 U daily, victoza 1.8 mg subq daily, SSI - s/p insulin gtt, which was not needed due to persistently normal glucose in low 100s. - q4h correctional today - presumably her tresiba is still on board, which is keeping her glucose controlled, consider starting long-acting when needed. ?? # Chronic Pain - continue home oxycodone 10 mg Q4H PRN - continue home gabapentin 600 mg BID, 1200 mg Nightly - PRN fentanyl push #dilated muscle for IJ insertion - manage acute pain as above ?? #Active Smoker #Asthma, chronic - duonebs q6h scheduled - continue home symbicort - nicotine patch ?? # Other: - DVT prophylaxis: heparin gtt - Diet: NPO until after Cath - Code Status: FULL - Dispo: pending course Ariel Rush MD PGY1 Cardiology S2 (#[id number]) 09/03/21 [place]umi reddy MD - 09/02/2021 4:39 PM EST Cardiovascular Critical Care Attending Note Aracelis Monique 1975 Age: 46 y.o. PCP: Valentin Parekh MD Date of Service: 09/02/2021 Date of Admission: 09/02/2021 Length of Stay Hospital Day 0 days Patient ID: Aracelis Monique is a 46 y.o. female with a history of obesity (BMI 31), HTN, HLD, DM2 on insulin, ASCVD, chronic pain on opiate therapy who [facility]) found to have significant complex disease of the RCA and LAD with severely elevated LVEDP. She is admitted to the ICU because she developed recurrent ischemic chest pain and flash pulmonary edema, presumed due to ischemia, and was taken emergently back to the tree tapping laborer for IABP placement. The patient was seen and examined on critical care rounds. Aracelis Monique is a 46 y.o. female with the following active issues: Active Hospital Problems Diagnosis ??? NSTEMI (non-ST elevated myocardial infarction) Resolved Hospital Problems No resolved problems to display. MEDICATIONS: Scheduled Meds: ??? [MAR Hold] sodium chloride 0.9 % (flush) 5 mL Intravenous BID ??? [MAR Hold] sodium chloride 0.9 % (flush) 5 mL Intravenous BID ??? [MAR Hold] nicotine 1 patch Transdermal Daily And ??? [MAR Hold] Patch Verification 1 patch Transdermal BID And ??? [MAR Hold] nicotine 1 patch Transdermal Daily ??? [MAR Hold] budesonide-formoteroL 2 Inhalation Inhalation BID ??? [MAR Hold] atorvastatin 80 mg Oral QPM ??? [MAR Hold] metoprolol tartrate 12.5 mg Oral Q6H ALAN ??? [NOV Hold] insulin lispro 1-5 Units Subcutaneous TID AC ??? [NOV Hold] gabapentin 600 mg Oral 2 times per day And ??? [MAR Hold] gabapentin 1,200 mg Oral Nightly ??? [MAR Hold] insulin lispro 0-8 Units Subcutaneous TID WC ??? [MAR Hold] insulin glargine 30 Units Subcutaneous QPM ??? [MAR Hold] aspirin EC 81 mg Oral Daily ??? [MAR Hold] clopidogreL 75 mg Oral Daily ??? pantoprazole 40 mg Intravenous BID ??? magnesium sulfate 2 g Intravenous Once Continuous Infusions: ??? [NOV Hold] heparin (porcine) infusion Stopped (09/02/21 1345) EXAM: Last value Range last 24 hrs Temperature Temp: 37.2 ??C (99 ??F) Temp: [37.2 ??C (99 ??F)] Heart Rate Heart Rate: 96 Heart Rate: [96-105] Blood Pressure BP: 108/66 BP: (95-108)/(66-71) Respiratory Rate Resp: 28 Resp: [20-35] SpO2 SpO2: 97 % SpO2: [94 %-97 %] Art BP BP (Arterial Line): -- Weights: Patient Vitals for the past 168 hrs: Weight 09/02/21 1229 82.7 kg (182 lb 5.1 oz) Gen- Middle aged woman, very uncomfortable crying in pain HEENT- NC/AT, sclera anicteric. Pain at RIJ site with any neck movement. CV- Regular rhythm, borderline tachycardic. IABP audible Pulm- Slightly tachypneic on NRB, expiratory wheezing Abd- IABP audible, obese, benign Ext- Warm, no edema, intact distal pulses Neuro- Alert, oriented, appropriate. Face symmetric. Moving all extremities. Psych- Anxious. Skin- Warm, non-diaphoretic. Multiple tattoos. No significant rash. Lines- RIJ Intro/PAC. RFA IABP site benign. ASSESSMENT, MANAGEMENT, and DECISION MAKINyoF, active smoker, HTN, HLD, DM2 and family history of ASCVD who presented with NSTEMI type I with complex 2VD and severely elevated LVEDP now with IABP for refractory chest pain. Neuro- Continue home opiate therapies and gabapentin. Cardiovascular- IABP for afterload reduction and improved coronary perfusion. Continue NTG gtt titrated to chest pain relief as well. Continue DAPT and UFH. Continue atorvastatin. PCI pending anemia work-up although will proceed emergently if needed. Continue with diuresis guided by PAC. Pulmonary- Continue BiPAP; wean as tolerated by oxygenation and patient comfort. Continue home budesonide-fomoterol. Nebs prn. Usual hygiene. FEK- Good UOP response to furosemide. Re-dose as guided by PAC. Monitor and replete lytes as needed. GI- Continue pantoprazole. Gi consulted for concern of GIB as cause of anemia; follow up. ID- No acute issues Heme- Anemia of unclear cause with drop in HGB; send iron studies, hemolysis labs, etc. Continue UFHand DAPT for ACS and trend hgb. Endo- FSGs + basal/bolus insulin strategy Psych- May need pharmacologic therapy for anxiety. Nicotine replacement therapy. IS THE PATIENT CRITICALLY ILL? Is there a high potential of sudden, clinically significant, or life threatening deterioration? Yes Is there a need for direct personal assessment and management to treat/prevent multiple vital organ failure/deterioration? Yes If this patient is not critically ill, the reason for continued hospitalization is NA. PATIENT IS CRITICALLY ILL WITH THESE DIAGNOSES BEING MANAGED BY Cardiology team providing critical care services ARDS X PA Catheter Hyponatremia X Hypoxemic Resp Failure Cardiogenic Shock Hypernatremia Pneumonia req Ventilator X Acute Myocardial Infarction Hyperkalemia Hypercarbic Resp Failure Subarachnoid Hemorrhage Acute Drug Ingestion / OD Respiratory Acidosis Traumatic Brain Injury Acute Renal Failure X Acute Resp Failure Coma Acute Liver Failure Metabolic Acidosis Stupor Thrombocytopenia Hypotension, Fluids Delirium Neutropenia Hypotension, Pressors Acute Encephalopathy Hypertensive Emergency Sepsis Ascites Req Treatment Malnutrition Septic Shock with SIRS Coagulopathy Req Treatment X Intraaortic Balloon Bump Anaphylaxis Active Hemorrhage I personally performed 60 of aggregate critical care time exclusive of procedures and teaching. Thisincludes time spent during direct patient evaluation and reassessment, interpreting diagnostic tests, directing life and/or organ supporting interventions and documentation on the unit. Yumi Garcia MD 09/02/2021 Opal Estrada RN - 09/02/2021 1:30 PM EST Pt arrived too the floor from outside hospital, pt initiated on telemetry, oriented to room, call gonsales within reach. documented in this encounter H&P Notes Mirza Robbins - 09/02/2021 1:42 PM EST Images from the original note were not included. Cardiovascular Medicine Admission History and Physical Patient Name: Aracelis Monique Service: [id number] Team Responsible Attending: Dr. John Paul MD PCP: Valentin Parekh MD PCP phone #: [phone] ID/Chief Complaint: Ms. Monique is a 46 yo active smoker, HLD, HTN, Type II DM, chronic pain (on opiates), family history of CAD, recent COVID-19 infection in June 2021 who presented to [facility] with chestpain concerning for type I NSTEMI. History of Present Illness: Patient reports that she has been dealing with residual symptoms of her COVID-19 infection back in June. She reports she is fully vaccinated. Since June she has been dealing with SOB on exertion and generalized weakness and fatigue. Three days ago though she developed gradual onset mid-sternal sharp chest pain with radiation down the left jaw and arm. It would come and go, though she does not remember how long each episode would last. She originally thought this was also secondary effects of COVID-19 though given the persistent nature of her symptoms [facility], patient was tachycardic to 103 though otherwise hemodynamically stable on RA. EKG showed poor R wave progression. Troponin was 612 --> trend down to 47.2 prior to transfer, proBNP 2419. Labsnotable a microcytic anemia (Hbg ~ 10) and she was found to have KHARI and given Venofer at the OSH. Otherwise, Cr and lytes stable; glucoses poorly controlled. CXR was negative. She also had a TTE with an EF of 55-60% with anteroseptal and apical hypokinesis. RV normal in size, LA severely dilated withmoderate MR and moderate pulmonary HTN with PASP of 40-45. Risk Stratification: A1c 5.5%, Lipid Panel Total Cholesterol 205, LDL 141, HDL 26, Trig 190. Given concern for type I NSTEMI patient was loaded with plavix and aspirin; started on heparin gtt. She was also started on metoprolol, lisinopril, and atorvastatin. On arrival here she is appears sleepy (she did receive morphine and fentanyl at the OSH due to reports of chest pain) though AAOx4 and overtly wheezy with a dry nonproductive cough. She denies any active chest pain. Review of Systems: Per HPI, otherwise negative Problem List/Past Medical History Patient Active Problem List Diagnosis ??? NSTEMI (non-ST elevated myocardial infarction) ??? Dislocation of left shoulder joint, chronic, recurrent, with multiple surgeries. Meds: No current facility-administered medications on file prior to encounter. Current Outpatient Medications on File Prior to Encounter Medication Sig Dispense Refill ??? albuterol (PROVENTIL) 2.5 mg /3 mL (0.083 %) nebulizer solution Take 2.49 mg by nebulization every 6 hours as needed. ??? fluticasone-salmeterol (ADVAIR DISKUS) 500-50 mcg/dose diskus inhaler Inhale 1 puff into the lungs 2 times daily. ??? zolpidem (AMBIEN) 5 mg tablet Take 5 mg by mouth nightly as needed. ??? cimetidine (TAGAMET) 400 mg tablet Take 400 mg by mouth 2 times daily. ??? citalopram (CELEXA) 40 mg tablet Take 40 mg by mouth daily. ??? estradiol (ESTRACE) 1 mg tablet Take 1 mg by mouth daily. ??? ibuprofen (ADVIL;MOTRIN) 200 mg tablet Take 200 mg by mouth every 6 hours as needed. ??? OXYCODONE HCL/ACETAMINOPHEN (PERCOCET ORAL) Take 5 mg by mouth daily as needed. Allergies: Allergies Allergen Reactions ??? Penicillins ??? 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 AAOx4 HEENT: poor dentition, anicteric sclera. Moist mucous membranes Neck: Supple with normal ROM. No JVD seen Cardiac: Normal S1 and S2, Regular rate and rhythm; No murmrs/gallops/rubs. Respiratory: diffuse expiratory wheezing on 2 L NC Abd: + BS; soft, non-tender, non-distended, no obvious masses. Ext: WWP without le edema Neuro: Alert and orientated, no-focal deficits Laboratory: CBC: Recent Labs 09/02/21 1330 WBC 10.6* HGB 8.9* PLATELET 419* Chemistry: Recent Labs 09/02/21 1330 NA 141 K 4.1 CL 105 CO2 24 BUN 14 CREATININE 0.65* GLUCOSE 180 Recent Labs 09/02/21 1330 CALCIUM 8.4* MAGNESIUM 0.69 PHOS 3.3 LFT's: Recent Labs 09/02/21 1330 BILITOT <0.2* BILIDIR 0.1 ALBUMIN 3.6 ALKPHOS 82 ALT 11 AST 12 Coags: Recent Labs 09/02/21 1330 PT 11.9 INR 1.0 PTT 38* Cardiac enzymes: Recent Labs 09/02/21 1330 TROPONINT 0.03* Microbiology: None Diagnostic Studies: EKG- Poor R wave progression CXR- Negative at OSH Cardiac Catheterization- aborted given hypotension and elevated LVEDP, prox-RCA and mid-LAD lesions are sites of potential intervention when patient goes back TTE at OSH - will repeat here ASSESSMENT: Ms. Monique is a 46 yo active smoker, HLD, HTN, Type II DM, chronic pain (on opiates), family history of CAD, recent COVID-19 infection in June 2021 who presented to [facility] with chestpain concerning for type I NSTEMI. Patient's story is consistent with ACS. She was admitted to the ICCU tachycardic to the low 100s on 2 L NC, but otherwise stable. Given she is high risk (family hx, smoker, Type II DM, HLD, and HTN), we proceeded to the tree tapping lab[facility] shortly after arrival. In the [facility], she was noted to have intervenable proximal RCA and mid-LAD though given development of hypotension, an LVEDP of 40, and ?GI bleed (drop from 12-->9 in Hbg). GI has been consulted. For tonight, will place a IABP, aggressively diurese, and f/u GI recommendations. We are hopeful to optimize her enough to return to the tree tapping laborer. PLAN: Cardiovascular Pump #Elevated LVEDP --Preload: (Diuretic plan: Boluses) - s/p 40 mg IV lasix in the tree tapping laborer - Goal NN 1-2 L --Afterload: Place IABP to augment coronary perfusion Ischemia #ASCVD #Type I NSTEMI --EKG PRN - Trend Troponin --hold ASA 81mg qd --continue atorvastatin 80mg qd --continue clopidogrel 75mg qd --continue heparin gtt --hold BB/ACEI - Nitroglycerin 0.4mg SL as needed for chest pain - hold metoprolol pending HR, BP trends - hold ACEI - Telemetry monitoring - TTE done at OSH; repeat ordered #?GIB - IV pantoprazole BID - two large bore IVs - Active T&S - transfuse to maintain Hbg > 8 - NPO for now - GI consulted #KHARI - s/p 2-3 doses of IV venofer at the OSH # Type II DM - home regimen: tresiba 100 U daily, victoza 1.8 mg subq daily, SSI - here: insulin gtt per endocrine - consult to DM team # Chronic Pain - continue home oxycodone 10 mg Q4H PRN - continue home gabapentin 600 mg BID, 1200 mg Nightly # Active Smoker - duonebs q4h prn - continue home symbicort - nicotine patch # Other: - DVT prophylaxis: heparin gtt - Diet: NPO until after Cath - Code Status: FULL - Dispo: pending course Mirza Robbins, DO Internal Medicine PGY-3 Cardiology S2, Pager [phone] 09/02/2021 Associated attestation - Tameka Neal MD - 09/02/2021 7:26 PM EST Cardiology Attending Addendum I was the assigned attending disk sander for this clinical encounter. For the purposes of billing, I was directly involved in the clinical decision making and the plan of care is reasonable. Please see the note by Dr. Robbins below for full details, in brief: Aracelis Monique is a 46 y.o. year old female w/ a past medical history of hypertension, hyperlipidemia, type 2 diabetes, active smoking and chronic pain on opiates as well as a recent COVID-19 infection in June 2021 who presented to [facility] with a non-ST elevation CT. She was transferred to us and went to the [facility] where she was found to have significant RCA and LAD disease. Her LVEDP in the lab was 40. On review, her hemoglobin had down trended from approximately 12 to approximately 8 over the past month. The etiology of this blood loss is unclear. There is concern, obviously fora GI source though the patient denies melena or bright red blood per rectum. She does endorse hematemesis and or hemoptysis. Given that she was fairly hypotensive in the [facility] and anytime her coronaries were injected she developed crushing substernal chest pain and became profoundly hypotensive, the decision was made to place a balloon pump, to allow time for optimization with blood transfusion and diuresis. She will be transitioned to the cardiac ICU where we will transfuse blood, start IV Lasix, and ultimately decide whether or not her hemoglobin continues to drop after transfusion. If it does, she will likely warrant a GI evaluation. We will start an IV PPI now. If she is able to hold onto the blood that is transfused, we could likely consider repeat catheterization with plan for complex, MCS assistedPCI once stable. Thank you for allowing us to participate in the care of this patient. For any additional questions, my pager is #[phone]. Tameka Coker MD MPH [facility] Cardiac Transplant Attending 09/02/2021, 7:24 PM documented in this encounter Miscellaneous Notes Plan of Care - Sharmin Dodge RN - 09/04/2021 2:26 AM EST OUTCOME EVALUATION NOTE: OUTCOME SUMMARY: Pt arrived from cath recovery around 1999. A+Ox4, on 2L NC. PRN robitussin given for cough. TR band on R radial, successfully removed at 2300, pressure dressing applied- CDI. R groin and RIJ sites CDI,dressing on. Arias remains in place. Pt reported generalized chest, neck, and wrist discomfort. PRN oxycodone given x2 during shift. Pt had snacks from her personal bag, consisting of candy. BG elevated overnight- MD made aware, discussed this with pt and importance of a diabetic diet/sugarfree snacks. SR/ST on tele- see scanned docs. Pt had 11-beat VT run overnight, MD aware. Mg replaced per order. PLAN MOVING FORWARD: Continue to actively monitor. D/C planning as appropriate. INDIVIDUALIZED FALL PREVENTION INTERVENTIONS: Patient-specific fall risk factors per assessment: [current deficits]: tele wires, unfamiliar environment, O2 tubing Assistance [level of assistance required for transfers and ambulation]: Bedrest for shift / 2 assist Supervision [direct monitoring required during toileting and ADLs]: Hands on Surveillance [continuous indirect monitoring]: tele, purposeful rounding, call gonsales within reach Patient-specific fall prevention interventions for sensory deficits provided, if applicable: Room near RN station, non-skids socks on when OOB, lighting adjusted for specific tasks/activities, bed in lowest locked position. CPG GOAL OUTCOME EVALUATION: Ongoing Consult Note - Stacy Angeles APRN - 09/03/2021 9:58 AM EST Diabetes Management Team Inpatient Consult Date of Consultation: 09/03/2021 Consult Requested by: Cardiology Reason for Consultation: Aracelis Moniqeu is a 46 y.o. female with PMH significant for obesity, HTN, HLD, DM2, ASCVD, depression and chronic pain on opiate therapy who was admitted on 09/02/2021 currently being treated for NSTEMI. We are being consulted to assist with diabetes management and to provide a review of terminal carman diabetes care. Patient lethargic and difficult to rouse at time of interview, history obtained via chart review. She is able to report that her diabetes is currently well controlled on current medications, and that she hasn't been having any low blood sugars. Diabetes History: Aracelis Monique has had diabetes for several years. She is currently prescribed Tresiba, Humalog and Victoza. Checks BG 3-4 times per day on average. Current outpatient diabetes regimen: Diabetes Provider: PCP Dr. Valentin Parekh, [facility] Medications: Tresiba 136 units daily, Humalog 4-10 units sliding scale TID with meals and for correction, Victoza 1.8 mg injection daily Monitoring is done 4 times a day Most recent HA1c was done on 09/02/21 and was 6.8%, suggesting an average glucose of 148 mg/dL for the past 6-8 weeks. Typical diet is: Not obtained Typical exercise regimen is not obtained Trouble with hypoglycemia none Current Weight: 78 kg BMI 29.4 Diabetes Complications Status: Deferred Current Hospital Diabetes Care: Medications: Lispro moderate correction scale q 4 hrs Monitoring: Fingerstick q 4 hrs Diet: NPO ROS: deferred PMH No past medical history on file. Current Hospital Medications: ??? acetaminophen 975 mg Oral Q8H ??? lidocaine 3 patch Transdermal Q24H And ??? lidocaine 3 patch Transdermal Q24H ??? aspirin EC 81 mg Oral Daily ??? ipratropium-albuteroL 3 mL Nebulization Q6H ??? insulin lispro 1-6 Units Subcutaneous Q4H ALAN ??? sodium chloride 0.9 % (flush) 5 mL Intravenous BID ??? sodium chloride 0.9 % (flush) 5 mL Intravenous BID ??? nicotine 1 patch Transdermal Daily And ??? Patch Verification 1 patch Transdermal BID And ??? nicotine 1 patch Transdermal Daily ??? budesonide-formoteroL 2 Inhalation Inhalation BID ??? atorvastatin 80 mg Oral QPM ??? gabapentin 600 mg Oral 2 times per day And ??? gabapentin 1,200 mg Oral Nightly ??? clopidogreL 75 mg Oral Daily ??? pantoprazole 40 mg Intravenous BID Infusions: ??? heparin (porcine) infusion 900 Units/hr (09/03/21 0600) ??? nitroGLYcerin Stopped (09/02/21 1845) PRN: sodium chloride 0.9 % (flush), lidocaine, nitroGLYcerin, sodium chloride 0.9 % (flush), heparin (porcine) AND heparin (porcine) infusion, midazolam (PF), atropine, fentaNYL (PF), glucose 40% oral geL OR dextrose 10% OR glucagon, oxyCODONE, fentaNYL (PF), potassium chloride ER OR potassium chloride ER Allergy: Allergies Allergen Reactions ??? Penicillins ??? Trazodone Social history: Social History Tobacco Use ??? Smoking status: Current Every Day Smoker Packs/day: 0.50 ??? Smokeless tobacco: Never Used Vaping Use ??? Vaping Use: Never used Substance Use Topics ??? Alcohol use: Yes Comment: occasional ??? Drug use: No Family history: No family history on file. Vitals Last value Range last 24 hrs Temperature Temp: 36.9 ??C (98.4 ??F) Temp: [36.9 ??C (98.4 ??F)-37.4 ??C (99.3 ??F)] Heart Rate Heart Rate: 92 Heart Rate: [90-105] Blood Pressure BP: 99/55 BP: (90-109)/(43-71) Respiratory Rate Resp: 23 Resp: [20-35] SpO2 SpO2: 92 % SpO2: [92 %-100 %] Physical Exam: deferred Labs: Lab Results Component Value Date BUN 12 09/03/2021 CREATININE 0.71 09/03/2021 GLUCOSE 117 09/02/2021 GLUCFASTING 126 (H) 09/03/2021 ESTGFR 102 09/03/2021 Lab Results Component Value Date HA1C 6.8 [...] old female with PMH significant for DM (Last A1C of 6.8%) who was admitted on 09/02/2021 for NSTEMI. Diabetes adequately controlled and currently complicated by NSTEMI and stress of hospitalization. Currently with variability of blood glucose levels while hospitalized requiring adjustment of insulin regimen and DM medications. Currently s/p IABP placement and plans to proceed to PCI today. Remains NPO. Patient transferred from OSH yesterday and per outside records has been treated with sliding scale insulin only since 08/30.It is unclear when she took her last dose of Tresiba, but given that this medication can remain in the system for 48 hours it may be still in her system, leaving BG well controlled. At this time we will hold on adding any basal insulin. We will give correction and meal associated insulin only. Meal associated insulin based on weight based TDD at this time (0.7 X 77 = 54 units), and rule of 500. When BG rise (ie once patient resumes consistent nutritional intake) will assess for need for basal insulin. May required rapid titration of dose, given that patient at home takes >150units of insulin daily, along with Victoza. Orders placed. Will follow. Plan: 1. No long acting insulin at this time. 2. Lispro custom correction scale for BG>140 , CF 20 3. Meal-associated Lispro 0-8 units tid ac (or 1unit: 10 gm carb ratio for each meal) 4. Please add carb controlled/carb counting diet once eating intermediate manager diabetes care: Medications - Outpatient treatment regimen recommendations pending based on the hospital course. Monitoring - continue BG tid ac & hs Diet - low fat/low carb diet Exercise - weight-bearing exercise 30 min/day, as tolerated Thank you for allowing us to provide care for your patient Stacy Angeles APRN Endocrinology Pager [phone] minutes of this 80 minute visit was spent with the patient in counseling on diabetes and treatment plan, reviewing all glucose and insulin data as well as relevant laboratory results with the patient, and coordination of care on the inpatient unit Plan of Care - Juan Roes MD - 09/03/2021 9:12 AM EST Images from the original note were not included. Pre Cardiac Catheterization Note Aracelis Monique is a 46 y.o. female who presents for planned PCI Aracelis Monique has no planned upcoming surgeries. BP 99/55 (BP Location (NBP): Left arm, Patient Position: Lying) Pulse 92 Temp 36.9 ??C (98.4 ??F) (PA Catheter) Resp 23 Ht 162.6 cm (5' 4) Wt 77.8 kg (171 lb 8.3 oz) SpO2 92% BMI 29.44 kg/m?? Gen: Pleasant female in no apparent distress, able to lay flat on NC Cardiac: regular rate, s1/s2, no murmurs appreciated over marked rhonchi Pulm: Diffuse marked rhonchi Ext: Palpable radial pulses bilaterally. Palpable DP pulses Neuro: no appreciated focal deficit ASA: 4: Patient with severe systemic disease that is a constant threat to life Mallampati: II: tonsillar pillars are blocked by the tongue Recent CBC Recent Labs 09/03/21 0045 09/02/21 1740 09/02/21 1330 WBC 12.1* 11.6* 10.6* HGB 9.7* 9.3* 8.9* HCT 31.1* 29.7* 29.3* PLATELET 432* 428* 419* Recent BMP Recent Labs 09/03/21 0400 09/03/21 0045 09/02/21 2205 09/02/21 1740 09/02/21 1330 NA -- 141 -- 140 140 141 K 4.3 3.8 3.9 3.9 3.9 4.1 CL -- 100 -- 102 102 105 CO2 -- 28 -- 26 26 24 BUN -- 12 -- 12 12 14 CREATININE -- 0.71 -- 0.63* 0.63* 0.65* The indications, expected benefits, and potential risks [...] to this, which is in the chart. Plan: Coronary Angio for planned PCI Moderate Sedation OK Juan Rose MD 09/03/2021 Brief Op Note - Rafi Barrett MD - 09/02/2021 11:11 PM EST Brief Operative Note Patient Name: Aracelis Monique : [id number] MR#: [id number] Case Date: 09/02/2021 Surgeon: Surgeon(s) and Role: * Rafi Barrett MD - Primary Preoperative diagnosis: NSTEMI Postoperative diagnosis: LAD and RCA coronary artery disease Procedures: Right radial artery access Coronary angiography [facility] Right femoral access Balloon pump placed Anesthesia: Anesthesia type not filed in the log. Minimal sedation Findings: Significant disease of the mid LAD (70%) and moderate diffuse distal disease Significant disease of the prox RCA - mid RCA with 90% stenosis LCx - no significant disease LVEDP 38 mmHg IABP placed for shortness of breath, ongoing chestpain Complications: None Patient had ongoing chest pain and elevated EDP during procedure. Patient was noted prior to procedure to have low hemoglobin (it had trended down from 11.9 to 8.9) and commented that she had recently vomited blood. Given this, we discussed how to proceed. Decision was made to treat volume status and work up bleeding prior to stenting patients coronary arteries. After procedure, she was noted to haveincreased work of breathing and was thus started on bipap. Balloon pump was placed. Patient began feeling better. Transferred to [facility] in stable condition. Rafi Barrett MD Consult Note - Magda Upton MD - 09/02/2021 3:43 PM EST GASTROENTEROLOGY & HEPATOLOGY CONSULTATION Initial Consult Note Requesting Provider: Jay Jay Gant MD REASON FOR CONSULTATION Coffee ground emesis HISTORY OF PRESENT ILLNESS December Sho is a 46 y.o. woman with PMH DMII, HLD, HTN, recent COVID-19 infection and tobacco use whoinit[facility] and was transferred to [facility] for cardiac catheterization. GI is consulted for concern for UGIB. She was in her usual state of health until three days prior to presentation when she developed acuteonset substernal chest pain. Per report, she had an episode of coffee ground emesis while at home but the timing of this is unclear. She has not had any melena while in the hospital and denied any melena at home. She then presented [facility] where she was noted to have positive troponins and elevated BNP. TTE at that time was without RWMA. At that time she was reportedly HDS with BP 109/83, HR 103, SpO2 93% on RA. Labs were notable for Hgb 12, platelets 597. She was reportedly noted to have an KHARI and given Venofer at the OSH. She was ASA ans heparin loaded and started on plavix 75 mg daily and transferred to [facility] for ischemic evaluation. Given concerns for active ACS she was brought to the [facility] where she underwent cath without any intervention done. Labs done this afternoon were notable for Hgb 8.9 and otherwise stable. ROS: 10 systems reviewed and positive for those in HPI, otherwise negative PAST MEDICAL/SURGICAL HISTORY: No past medical history on file. MEDICATIONS ??? [MAR Hold] sodium chloride 0.9 % (flush) 5 mL Intravenous BID ??? [MAR Hold] sodium chloride 0.9 % (flush) 5 mL Intravenous BID ??? [MAR Hold] nicotine 1 patch Transdermal Daily And ??? [MAR Hold] Patch Verification 1 patch Transdermal BID And ??? [MAR Hold] nicotine 1 patch Transdermal Daily ??? [MAR Hold] budesonide-formoteroL 2 Inhalation Inhalation BID ??? [MAR Hold] atorvastatin 80 mg Oral QPM ??? [MAR Hold] metoprolol tartrate 12.5 mg Oral Q6H ALAN ??? [MAR Hold] insulin lispro 1-5 Units Subcutaneous TID AC ??? [MAR Hold] gabapentin 600 mg Oral 2 times per day And ??? [MAR Hold] gabapentin 1,200 mg Oral Nightly ??? [MAR Hold] insulin lispro 0-8 Units Subcutaneous TID WC ??? [MAR Hold] insulin glargine 30 Units Subcutaneous QPM ??? [MAR Hold] aspirin EC 81 mg Oral Daily ??? [MAR Hold] clopidogreL 75 mg Oral Daily ??? pantoprazole 40 mg Intravenous BID ??? magnesium sulfate 2 g Intravenous Once ??? [MAR Hold] heparin (porcine) infusion Stopped (09/02/21 1345) [MAR Hold] sodium chloride 0.9 % (flush), [MAR Hold] lidocaine, [MAR Hold] nitroGLYcerin, [MAR Hold]sodium chloride 0.9 % (flush), [MAR Hold] ipratropium- albuteroL, [MAR Hold] heparin (porcine) AND [MAR Hold] heparin (porcine) infusion, [MAR Hold] glucose 40% oral geL OR [MAR Hold] dextrose 10% OR [MAR Hold] glucagon, [MAR Hold] oxyCODONE ALLERGIES Allergies Allergen Reactions ??? Penicillins ??? Trazodone SOCIAL HISTORY Social History Socioeconomic History ??? Marital status: Spouse name: Not on file ??? Number of children: Not on file ??? Years of education: Not on file ??? Highest education level: Not on file Occupational History ??? Not on file Tobacco Use ??? Smoking status: Current Every Day Smoker Packs/day: 0.50 Types: Cigarettes ??? Smokeless tobacco: Not on file Substance and Sexual Activity ??? Alcohol use: [...] on file Housing Stability: Not on file FAMILY HISTORY No family history on file. Vitals: 09/02/21 1229 09/02/21 1235 09/02/21 1433 BP: 95/71 108/66 BP Location (NBP): Right arm Left arm Patient Position: Sitting Pulse: (!) 105 96 Resp: 20 (!) 35 Temp: 37.2 ??C (99 ??F) TempSrc: Oral SpO2: 94% 95% Weight: 82.7 kg (182 lb 5.1 oz) Height: 162.6 cm (5' 4) PHYSICAL EXAM GENERAL: Appears uncomfortable, on BiPAP HEENT: AT/NC, sclerae anicteric, moist mucous membranes CHEST: Normal work of breathing on BiPAP CARDIAC: IABP present ABDOMEN: diffuse tenderness, bruit 2/2 IABP EXT: Warm, no edema NEURO: Grossly intact, moves all extremities, no asterixis SKIN: No jaundice LABS: Lab Results Component Value Date Sodium 141 09/02/2021 Potassium 4.1 09/02/2021 Chloride 105 09/02/2021 CO2 24 09/02/2021 BUN 14 09/02/2021 Creatinine 0.65 (L) 09/02/2021 Glucose Lvl 180 09/02/2021 CBC Lab Results Component Value Date WBC 10.6 (H) 09/02/2021 Hemoglobin 8.9 (L) 09/02/2021 Hematocrit 29.3 (L) 09/02/2021 Platelets 419 (H) 09/02/2021 LFT's Lab Results Component Value Date Alk Phos 82 09/02/2021 AST 12 09/02/2021 Albumin 3.6 09/02/2021 Bili, Direct 0.1 09/02/2021 Total Bilirubin <0.2 (L) 09/02/2021 ALT 11 09/02/2021 Total Protein 6.5 09/02/2021 IMAGING: Reviewed in [facility] ENDOSCOPY: Reviewed in [facility] IMPRESSION: Aracelis Sho is a 46 y.o. woman with PMH DMII, HLD, HTN, recent COVID-19 infection and tobacco use [facility] and was transferred to [facility] for cardiac catheterization. GI is consulted for concern for UGIB. Currently no evidence of active bleeding given lack of ongoing coffee ground emesis, hematemesis, or melena. Therefore, low likelihood of there being an ulcer that would be treated on endoscopy. Differential at this time for possible UGIB include esophagitis vs PUD.Would thus recommend initiation of IV PPI BID for healing. If there is a change in her clinic statusand evidence of active GI bleeding, please notify the GI team for possible endoscopy. Otherwise, will defer EGD for now. RECOMMENDATIONS: - Continue pantoprazole 40 mg IV BID - two large bore IVs - Active T&S - Monitor Hgb q8h or more frequently based assessment of bleeding. - Transfuse for Hgb <7 if no ongoing signs of bleeding - Please notify GI team if signs of active bleeding The plan as outlined above was discussed with Dr. Cazares. Recommendations were discussed with primary team. Magda Upton M.D. Fellow in Gastroenterology and Hepatology Pager #[phone] 09/02/2021 Associated attestation - Mark Cazares MD - 09/05/2021 4:40 PM EST Attending Addendum: I have seen and examined the patient with Dr. Upton. We reviewed the medical record and pertinent studies and imaging. My evaluation and physical examination confirms the above findings. The assessment and plan were formulated in discussion with me at the time of the encounter and I agree with them as documented. 46 yo female admitted with NSTEMI, in setting of anemia and recent COVID. Questionable history of coffee round emesis prior to admission but no clinical evidence of overt GI bleeding. In setting of acute cardiac events and lack of any overt GI bleeding there is no indication for urgent endoscopy. Recommend treating with PPI therapy BID. If signs of overt GI bleeding and worsening anemia then endoscopy can be considered at that time. Mark Cazares MD [facility] Gastroenterology Plan of Care - Oscar Saha MD - 09/02/2021 1:21 PM ESTSummary: Pre-cath Images from the original note were not included. Pre Cardiac Catheterization Note 46 y.o. female presents for chest pain. History of DM on insulin, HTN, HLD, family history of CAD, and current smoker who presented to [facility] with chest pain and shortness of breath. She reportshaving worsening shortness of breath and chest pain which came on with exertion and arguing. She hada hs- troponin which trended up with a peak in the thousands. She was treated with 300 mg Plavix load, ASA load and lovenox with continued maintenance dose after this. TTE was performed with apical akinesis/hypokinesis and a preserved EF of 55-60%. She had no significant aortic disease. She was treatedseen by Dr. Wilian Toledo and transferred to [facility] for invasive work-up. She notably has a long history of chronic opioids and prior drug use. TTE: EF 55-60%. Moderate pHTN (PASP 40-45 mmHg + RAP. WM abnormalities involving the apex, Apical anteroseptum, mid to apical posterolateral neri. Moderate MR LA is severely dilated. No planned upcoming surgeries. No recent or ongoing bleeding events. No black stools. BP 95/71 (BP Location (NBP): Right arm, Patient Position: Sitting) Pulse (!) 105 Temp 37.2 ??C (99 ??F) (Oral) Resp 20 Ht 162.6 cm (5' 4) Wt 82.7 kg (182 lb 5.1 oz) SpO2 94% BMI 31.30 kg/m?? Gen: Pleasant female in no apparent distress, able to lay flat Cor: rrr, s1/s2 of nl character and amplitude, no m/r/g. jvp not elevated Pulm: CTAB Ext: Bilateral Rajesh's Test positive (both the radial and ulnar arteries alone provide ample circulation to the hand arcade). Femoral arteries are with adequate upstroke and without overlying evidence of infection. DP/PT ++ Neuro: No focal deficit ASA: 3: Patient with severe systemic disease Mallampati: II: tonsillar pillars are blocked by the tongue Last 3 wbc, hgb, hct plt No results for input(s): WBC, HGB, HCT, PLATELET in the last 7068 hours. Last 3 Lytes No results for input(s): NA, K, CL, CO2, BUN, CREATININE in the last 7068 hours. Previous Catheterization: None The indications, expected benefits, and potential risks [...] to this, which is in the chart. Plan: Coronary Angio via radial vs. femoral No C/I to long-term DAPT Moderate Sedation OK Oscar Saha MD 09/02/2021 documented in this encounter Plan of Treatment Upcoming Encounters Date Type Specialty Care Team Description 08/22/2022 Appointment Cardiology 08/22/2022 Laboratory Appointment Lab 08/22/2022 Office Visit Cardiology Tameka Neal MD [facility] [address] [place] [address] (Wo rk) Scheduled Orders Name Type Priority Associated Order Schedule Diagnoses Cardiac Catheterization Cardiac Cath Routine One Time for 1 Occurrences sta rting 09/02/2021 unti l 09/02/2021 documented as of this encounter Procedures Procedure Name Priority Date/Time Associated Comments Diagnosis POCT GLUCOSE Routine 09/05/2021 12:27 Results for this PM EST procedure are i n the results section. ECHOCARDIOGRAM LMTD W Routine 09/05/2021 10:49 HFrEF (heart Re sults for this CONTRAST W LMTD SPEC AM EST failure with procedu re are in DOPP COLOR DOPP reduced ejection the resu lts fraction) section. POCT GLUCOSE Routine 09/05/2021 7:48 Results for this AM EST procedure are i n the results section. POCT GLUCOSE Routine 09/05/2021 5:38 Results for this AM EST procedure are i n the results section. CMP W/FASTING GLUCOSE STAT 09/05/2021 4:02 Res ults for this AM EST procedure are i n the results section. HEMOGRAM STAT 09/05/2021 4:02 Results for this AM EST procedure are i n the results section. DIFFERENTIAL, AUTOMATED STAT 09/05/2021 4:02 R esults for this AM EST procedure are i n the results section. HC VENIPUNCTURE STAT 09/05/2021 4:02 AM EST HC MAGNESIUM, SERUM STAT 09/05/2021 4:02 Resul ts for this AM EST procedure are i n the results section. POCT GLUCOSE Routine 09/04/2021 11:46 Results for this PM EST procedure are i n the results section. POCT GLUCOSE Routine 09/04/2021 9:01 Results for this PM EST procedure are i n the results section. POCT GLUCOSE Routine 09/04/2021 5:45 Results for this PM EST procedure are i n the results section. POCT GLUCOSE Routine 09/04/2021 4:17 Results for this PM EST procedure are i n the results section. POCT GLUCOSE Routine 09/04/2021 2:21 Results for this PM EST procedure are i n the results section. POCT GLUCOSE Routine 09/04/2021 11:32 Results for this AM EST procedure are i n the results section. POCT GLUCOSE Routine 09/04/2021 10:14 Results for this AM EST procedure are i n the results section. XR CHEST ONE VIEW STAT 09/04/2021 9:40 Results for this AM EST procedure are i n the results section. POCT GLUCOSE Routine 09/04/2021 8:03 Results for this AM EST procedure are i n the results section. POCT GLUCOSE Routine 09/04/2021 6:02 Results for this AM EST procedure are i n the results section. POCT GLUCOSE Routine 09/04/2021 4:02 Results for this AM EST procedure are i n the results section. BMP W/FASTING GLUCOSE STAT 09/04/2021 2:47 Res ults for this AM EST procedure are i n the results section. HEMOGRAM Routine 09/04/2021 2:47 Results for this AM EST procedure are i n the results section. DIFFERENTIAL, AUTOMATED Routine 09/04/2021 2:47 R esults for this AM EST procedure are i n the results section. HC CBC,PLT & AUTO DIFF Routine 09/04/2021 2:47 AM EST HC MAGNESIUM, SERUM STAT 09/04/2021 2:47 Resul ts for this AM EST procedure are i n the results section. POCT GLUCOSE Routine 09/04/2021 2:08 Results for this AM EST procedure are i n the results section. POCT GLUCOSE Routine 09/04/2021 12:12 Results for this AM EST procedure are i n the results section. HC HEMOGLOBIN, BLOOD Routine 09/03/2021 8:36 Resu lts for this PM EST procedure are i n the results section. POCT GLUCOSE Routine 09/03/2021 8:21 Results for this PM EST procedure are i n the results section. EKG 12-LEAD Routine 09/03/2021 7:27 NSTEMI (non-ST Results fo r this PM EST elevated procedure are i n myocardial the results infarction) section. CARDIAC CATHETERIZATION Routine 09/03/2021 7:10 R esults for this PM EST procedure are i n the results section. POINT OF CARE BLOOD GAS Routine 09/03/2021 5:50 R esults for this HISTORICAL PM EST procedure are i n the results section. POCT GLUCOSE Routine 09/03/2021 12:09 Results for this PM EST procedure are i n the results section. HC UNFRACTIONATED STAT 09/03/2021 10:17 Result s for this HEPARIN (HEP UFH) AM EST procedure are in the results section. ECHOCARDIOGRAM LMTD W/O Routine 09/03/2021 9:34 NSTEMI (non-ST Results for this CON W LMTD SPEC DOPP, AM EST elevated proced ure are in COLOR DOPP myocardial the results infarction) section. POCT GLUCOSE Routine 09/03/2021 9:14 Results for this AM EST procedure are i n the results section. POCT GLUCOSE Routine 09/03/2021 7:04 Results for this AM EST procedure are i n the results section. HC TROPONIN T STAT 09/03/2021 6:20 Results for this AM EST procedure are i n the results section. HC UNFRACTIONATED STAT 09/03/2021 4:00 Results for this HEPARIN (HEP UFH) AM EST procedure are in the results section. HC POTASSIUM Routine 09/03/2021 4:00 Results for this AM EST procedure are i n the results section. CMP W/FASTING GLUCOSE STAT 09/03/2021 12:45 Re sults for this AM EST procedure are i n the results section. HEMOGRAM Routine 09/03/2021 12:45 Results for this AM EST procedure are i n the results section. DIFFERENTIAL, AUTOMATED Routine 09/03/2021 12:45 Results for this AM EST procedure are i n the results section. HC CBC,PLT & AUTO DIFF Routine 09/03/2021 12:45 AM EST HC MAGNESIUM, SERUM STAT 09/03/2021 12:45 Resu lts for this AM EST procedure are i n the results section. HC UNFRACTIONATED STAT 09/02/2021 10:05 Result s for this HEPARIN (HEP UFH) PM EST procedure are in the results section. HC POTASSIUM Routine 09/02/2021 10:05 Results for this PM EST procedure are i n the results section. POCT GLUCOSE Routine 09/02/2021 8:37 Results for this PM EST procedure are i n the results section. XR CHEST ONE VIEW Routine 09/02/2021 5:45 Results for this PM EST procedure are i n the results section. BLOOD GAS 2 ARTERIAL Routine 09/02/2021 5:45 Resu lts for this PM EST procedure are i n the results section. TYPE AND SCREEN VALIDITY STAT 09/02/2021 5:40 Results for this PM EST procedure are i n the results section. ABORH RECHECK STATUS STAT 09/02/2021 5:40 Resu lts for this PM EST procedure are i n the results section. BMP W/FASTING GLUCOSE STAT 09/02/2021 5:40 Res ults for this PM EST procedure are i n the results section. SCAN, PERIPHERAL BLOOD Routine 09/02/2021 5:40 Re sults for this PM EST procedure are i n the results section. HC HEMOGRAM Routine 09/02/2021 5:40 Results for this PM EST procedure are i n the results section. BLUE TUBE HOLD Routine 09/02/2021 5:40 Results fo r this PM EST procedure are i n the results section. HC IRON BINDING CAPACITY Routine 09/02/2021 5:40 Results for this PM EST procedure are i n the results section. ABO/RH TYPING STAT 09/02/2021 5:40 Results for this PM EST procedure are i n the results section. ANTIBODY SCREEN STAT 09/02/2021 5:40 Results f or this PM EST procedure are i n the results section. HC ANTIBODY STAT 09/02/2021 5:40 DETECTION,CAPTURE-R PM EST HC THYROID STIMULATING Routine 09/02/2021 5:40 Re sults for this HORMONE, SERUM PM EST procedure are in the results section. HC MAGNESIUM, SERUM STAT 09/02/2021 5:40 Resul ts for this PM EST procedure are i n the results section. HC FERRITIN, SERUM Routine 09/02/2021 5:40 Result s for this PM EST procedure are i n the results section. HC VITAMIN B12 SERUM Routine 09/02/2021 5:40 Resu lts for this PM EST procedure are i n the results section. COMPREHENSIVE METABOLIC Routine 09/02/2021 5:40 R esults for this PANEL (NON-FASTING) PM EST procedur e are in the results section. EKG 12-LEAD STAT 09/02/2021 5:26 NSTEMI (non-ST Results fo r this PM EST elevated procedure are i n myocardial the results infarction) section. CARDIAC CATHETERIZATION Routine 09/02/2021 5:06 Coronary arter y Results for this PM EST disease involving procedure are in [place] coronary the results artery of [place] section. heart without angina pectoris EKG 12-LEAD STAT 09/02/2021 3:33 NSTEMI (non-ST Results fo r this PM EST elevated procedure are i n myocardial the results infarction) section. HEMOGRAM Routine 09/02/2021 1:30 Results for this PM EST procedure are i n the results section. DIFFERENTIAL, AUTOMATED Routine 09/02/2021 1:30 R esults for this PM EST procedure are i n the results section. HC PARTIAL Routine 09/02/2021 1:30 Results for this THROMBOPLASTIN TIME PM EST procedur e are in the results section. HC PROTHROMBIN TIME Routine 09/02/2021 1:30 Resul ts for this PM EST procedure are i n the results section. HC VENIPUNCTURE Routine 09/02/2021 1:30 PM EST HC TROPONIN T STAT 09/02/2021 1:30 Results for this PM EST procedure are i n the results section. HC PHOSPHORUS, SERUM Routine 09/02/2021 1:30 Resu lts for this PM EST procedure are i n the results section. HC PROBNP Routine 09/02/2021 1:30 Results for this PM EST procedure are i n the results section. HC MAGNESIUM, SERUM Routine 09/02/2021 1:30 Resul ts for this PM EST procedure are i n the results section. HC HEMOGLOBIN A1C Routine 09/02/2021 1:30 Results for this PM EST procedure are i n the results section. HEPATIC FUNCTION PANEL Routine 09/02/2021 1:30 Re sults for this PM EST procedure are i n the results section. LIPID PANEL (REFLEX Routine 09/02/2021 1:30 Resul ts for this DIRECT LDL) PM EST procedure are i n the results section. BASIC METABOLIC PANEL Routine 09/02/2021 1:30 Res ults for this (NON-FASTING) PM EST procedure are in the results section. POCT GLUCOSE Routine 09/02/2021 1:27 Results for this PM EST procedure are i n the results section. RAPID COVID-19 PCR Routine 09/02/2021 1:01 Result s for this ([facility]/APD/NLH) PM EST procedure are in the results section. documented in this encounter Results (ABNORMAL) POCT Glucose (09/05/2021 12:27 PM EST) athologist Signature POC Glucose 256 (H) 65 - 199 [facility] mg/dL [facility] Comment: Supplemental ranges: <140 mg/dL before meals <180 mg/dL all other times of the day Specimen Anatomical Collection Method Collection Time Receive d Time (Source) Location / / Volume Laterality Blood 09/05/2021 12:27 09/05/2021 PM EST 12:27 PM EST Serafin Lam MD POINT OF CARE TEST ORDERABLE S Performing Organization Address City/State/ZIP [place] [address] ECHOCARDIOGRAM LMTD W CONTRAST W LMTD SPEC DOPP COLOR DOPP (09/05/2021 10:49 AM EST) athologist Signature EF 33 [facility] Anatomical Region Laterality Modality Other Specimen (Source) Anatomical Location Collection Method / Collectio n Time Received Time / Laterality Volume 09/05/2021 Narrative 09/05/2021 11:11 AM EST Amended Report Procedure: ?Transthoracic Echocardio gram Patient: ?SHO ARACELIS ?(Age): 1975(46y) Med Rec#: ? [id number] ?Sex: ?F ? Site Loc: ? DH ?Ht / Wt: ??163(cm)/79(kg) Pt. Loc: ?CCU ? BSA: ?1.85 Study Date: ?? 09/05/2021 ?Pt. Type: Inpatient Tape: ? Referring: Serafin Lam ??([id number]) Reading: Hernán Mariscal ([id number]) Food Checker: Shimon García Diagnosis: *Unspecified systolic (congestive) hear t failure (I50.20) Rhythm: ? Sinus BP: ? 92/65 HR: ? 99 SUMMARY: 1. The left ventricle is mildly dilated. ??Global left ventricular systolic function is moderately reduced. ??The quantitative left ventricular ejection fraction by biplane Jaramillo's method is 33%. ??There are segmental left ventricular wall nito on abnormalities involving the entire apex is akinetic 2. The right ventricle is normal in size . ??Right ventricular global systolic function is normal. 3. No thrombus is visualized within the left ventricle. Findings ? : Study Quality: ? Adequate Left Ventricle: ? The left ventricle is mildly dilated. ?Global left ventricular systolic f unction is moderately reduced. ?The quantitative left ventricular ejection fraction by biplane Jaramillo's method is 33%. ?There are segmental left ventricul ar wall motion abnormalities involving the entire apex is akinetic ?No thrombus is visualized within t he left ventricle. Right Ventricle: ? The right ventric le is normal in size. ?Right ventricular global systolic function is normal. ?Pulmonary artery hypertension coul d not be assessed due to inadequate tricuspid regurgitation jet. Tricuspid Valve: ? The tricuspid gene ve leaflets are morphologically normal. ?There is no tricuspid valve stenos is. ?There is mild (1+/4+) tricuspid re gurgitation present. Pericardium: ? There is no pericardi al effusion. ?No pleural effusion is present. Misc: ? Two-dimensional echo, limite d spectral Doppler and color Doppler performed. ?Definity contrast (one 1.5 ml vial )was used to enhance endocardial definition. Excess contrast was discarde d. Volumes/Mass ?Value ?Units (Range) ? LV ESV SP 4CH (MOD) 123.45 ? m l ? LV ESV SP 2CH (MOD) 91.98 ? ml ? LV EDV BP ? 168.99 ? ml ? LV ESV BP ? 113.25 ? ml ? BP EF (MOD) ? 32.98 ?% ? This report has been electronically sign ed by: _ Hernán Mariscal M.D. ? 09/05/2021 1 1:12:38 Images reviewed and interpretation verif ied [facility] Cardiac Ultrasound Laboratory Procedure Note Hernán Mariscal MD - 09/05/2021Formatt ing of this note might be different from the original. Amended Report Procedure: Transthoracic Echocardiogram Patient: SHO DECEMBER (Age): 1975 (46y) Med Rec#: [id number] Sex: F Site Loc: [facility] Ht / Wt: 163(cm)/79(kg) Pt. Loc: CCU BSA: 1.85 Study Date: 09/05/2021 Pt. Type: Inpatie nt Tape: Referring: Carole Serafin ([id number]) Reading: Hernán Mariscal ([id number]) Food Checker: Shimon García Diagnosis: *Unspecified systolic (congestive) hear t failure (I50.20) Rhythm: Sinus BP: 92/65 HR: 99 SUMMARY: 1. The left ventricle is mildly dilated. Global left ventricular systolic function is moderately reduced. The quantitative left ventricular ejection fraction by biplane Jaramillo's method is 33%. There are segmental left ventricular wall nito on abnormalities involving the entire apex is akinetic 2. The right ventricle is normal in size . Right ventricular global systolic function is normal. 3. No thrombus is visualized within the left ventricle. Findings : Study Quality: Adequate Left Ventricle: The left ventricle is mi ldly dilated. Global left ventricular systolic functi on is moderately reduced. The quantitative left ventricular eject ion fraction by biplane Jaramillo's method is 33%. There are segmental left ventricular wa ll motion abnormalities involving the entire apex is akinetic No thrombus is visualized within the le ft ventricle. Right Ventricle: The right ventricle is normal in size. Right ventricular global systolic funct ion is normal. Pulmonary artery hypertension could not be assessed due to inadequate tricuspid regurgitation jet. Tricuspid Valve: The tricuspid valve [place] flets are morphologically normal. There is no tricuspid valve stenosis. There is mild (1+/4+) tricuspid regurgi tation present. Pericardium: There is no pericardial eff usion. No pleural effusion is present. Misc: Two-dimensional echo, limited spec tral Doppler and color Doppler performed. Definity contrast (one 1.5 ml vial)was used to enhance endocardial definition. Excess contrast was discarde d. Volumes/Mass Value Units (Range) LV ESV SP 4CH (MOD) 123.45 ml LV ESV SP 2CH (MOD) 91.98 ml LV EDV BP 168.99 ml LV ESV BP 113.25 ml BP EF (MOD) 32.98 % This report has been electronically sign ed by: _ Hernán Mariscal M.D. 09/05/2021 11:12:3 8 Images reviewed and interpretation verif ied [facility] Cardiac Ultrasound Laboratory Serafin Lam MD ECHO ORDERABLES POCT Glucose (09/05/2021 7:48 AM EST) athologist Signature POC Glucose 156 65 - 199 [facility] Comment: Supplemental ranges: <140 mg/dL before meals <180 mg/dL all other times of the day Specimen Anatomical Collection Method Collection Time Receive d Time (Source) Location / / Volume Laterality Blood 09/05/2021 7:48 AM 7:48 EST AM EST Serafin Lam MD POINT OF CARE TEST ORDERABLE S Performing Organization Address City/State/ZIP [place] [address] (ABNORMAL) POCT Glucose (09/05/2021 5:38 AM EST) P athologist Signature POC Glucose 213 (H) 65 - 199 [facility] Comment: Supplemental ranges: <140 mg/dL before meals <180 mg/dL all other times of the day Specimen Anatomical Collection Method Collection Time Receive d Time (Source) Location / / Volume Laterality Blood 09/05/2021 5:38 AM 5:38 EST AM EST Serafin Lam MD POINT OF CARE TEST ORDERABLE S Performing Organization Address City/State/ZIP [place] [address] (ABNORMAL) Differential, Automated (09/05/2021 4:02 AM EST) [facility] Method Time Signature Neutrophils % 58.2 % [facility] Neutr Abs (ANC) 6.82 (H) 1.70 - [facility] 6.10 [facility] x10(3)/[facility] LABORATORY Lymphocytes % 31.2 % [facility] Lymphocytes Abs 3.7 (H) 0.9 - 3.2 [facility] x10(3)/[facility] LABORATORY Monocytes % 8.0 % [facility] Monocyte Abs 0.9 0.3 - 0.9 [facility] x10(3)/[facility] LABORATORY Eosinophils % 2.0 % [facility] Eosinophils Abs 0.2 0.0 - 0.4 [facility] x10(3)/[facility] LABORATORY Basophils % 0.3 % [facility] Basophils Abs 0.0 0.0 - 0.1 [facility] x10(3)/[facility] LABORATORY Immature Gran % 0.30 % [facility] Comment: Immature granulocytes(IG's)percentage an d absolute count will include metamyelocytes, myelocytes, and promyelo cytes. Blood smears from CBCs yielding IG's will be scanned manually for concor dance. If this scan disagrees with the automated IG or if promyelocytes are not ed, a manual differential will be performed. Anaya Gran Abs 0.04 0.00 - 0.04 x10(3)/[facility] Specimen Anatomical Collection Method Collection Time Receive d Time (Source) Location / / Volume Laterality Blood 09/05/2021 4:02 AM 4:17 EST AM EST Resulting Agency Comment Spec In Lab Mirza Robbins DO HEMATOLOGY ORDERABLES Performing Organization Address City/State/ZIP [place] [address] [facility] [address] (ABNORMAL) Hemogram (09/05/2021 4:02 AM EST) Analysis Performed At Patho logist Time Signature WBC 11.7 (H) 4.0 - 9.5 [facility] LABORATORY RBC 3.88 (L) 4.00 - [place] [facility] [place] 5.21 [facility] x10(6)/[facility] LABORATORY Hemoglobin 9.0 (L) 11.7 - [facility] [facility]dL [facility] Hematocrit 29.5 (L) 35.7 - [facility] 45.8 % [facility] MCV 76.0 (L) 82.6 - [facility]4 [facility] LABORATORY MCH 23.2 (L) 27.1 - [facility] 32.0 pg [facility] MCHC 30.5 (L) 31.7 - [facility] g/dL [facility] Platelets 347 145 - 357 [facility] x10(3)/[facility] LABORATORY RDWSD 55.1 (H) 37.0 - [place] JO[facility] DAVID 46.0 [facility] LABORATORY RDWCV 21.3 (H) 11.5 - [facility] JOSE DAVID 14.1 % [facility] MPV 9.8 7.6 - 12.9 [facility] LABORATORY nRBC % Auto 0.0 % [facility] nRBC Abs Auto 0.000 0.000 - [facility] 0.000 [facility] x10(3)/[facility] LABORATORY Specimen Anatomical Collection Method Collection Time Receive d Time (Source) Location / / Volume Laterality Blood 09/05/2021 4:02 AM 4:17 EST AM EST Resulting Agency Comment Spec In Lab Mirza Quentinjo ann DO HEMATOLOGY ORDERABLES Performing Organization Address City/State/ZIP [place] [address] (ABNORMAL) CMP w/fasting Glucose (09/05/2021 4:02 AM EST) P athologist Signature Glucose 224 (H) 65 - 99 [facility] Fasting mg/dL [facility] Comment: ?Fasting* Glucose Interpretive C [...] of Diabetes Mellitus, Position Statement from the [place] [employer]. ??Diabete s Care, Volume 33, Supplement 1, Oct 2009 BUN 25 (H) 8 - 18 mg/dL [facility] Creatinine 0.68 (L) 0.70 - 1.20 mg/dL [facility] Sodium 139 135 - 145 mmol/L [facility] Potassium 4.3 3.5 - 5.0 mmol/L [facility] Comment: Please note: ??Patients with WBC >100,00 0 may have falsely elevated Potassium levels. ??For accurate Potassium quantif ication in these patients send serum separator tube (gold top) for subsequent determinations. ??Contact the Clinical Chemistry Laboratory if there are any qu estions. Chloride 103 98 - 107 mmol/L [facility] CO2 24 22 - 31 mmol/L [facility] Anion Gap 12 5 - 15 mmol/L [facility] Calcium 9.5 8.5 - 10.5 mg/dL [facility] Total Protein 6.7 6.1 - 8.0 g/dL [facility] Albumin 3.5 3.2 - 5.2 g/dL [facility] AST 9 0 - 30 unit/L [facility] ALT 7 0 - 30 unit/L [facility] Alk Phos 89 35 - 105 unit/L [facility] Total Bilirubin <0.2 (L) 0.2 - 1.3 mg/dL [facility] Estimated GFR 105 >=60 mL/min/1.73 m?? [facility] Comment: This patient? s estimated glomerular filtration rate (eGFR) is between 105 mL/min/1.73 m2 (patients with less muscl e mass) and 122 mL/min/1.73 m2 (patients with more muscle mass) [...] (Source) Location / / Volume Laterality Blood 09/05/2021 4:02 AM 4:17 EST AM EST Resulting Agency Comment Spec In Lab Tameka Chu MD CHEMISTRY ORDERABLES Performing Organization Address City/State/ZIP Code Phon e Number [address] Magnesium (09/05/2021 4:02 AM EST) P athologist Signature Magnesium 0.79 0.69 - 1.07 [facility] mmol/L [facility] Specimen Anatomical Collection Method Collection Time Receive d Time (Source) Location / / Volume Laterality Blood 09/05/2021 4:02 AM 4:17 EST AM EST Resulting Agency Comment Spec In Lab Tameka Chu MD CHEMISTRY ORDERABLES Performing Organization Address City/State/[place] [address] (ABNORMAL) POCT Glucose (09/04/2021 11:46 PM EST) P athologist Signature POC Glucose 214 (H) 65 - 199 [facility] mg/dL [facility] Comment: Supplemental ranges: <140 mg/dL before meals <180 mg/dL all other times of the day Specimen Anatomical Collection Method Collection Time Receive d Time (Source) Location / / Volume Laterality Blood 09/04/2021 11:46 09/04/2021 PM EST 11:46 PM EST Serafin Lam MD POINT OF CARE TEST ORDERABLE S Performing Organization Address City/State/[place] [address] (ABNORMAL) POCT Glucose (09/04/2021 9:01 PM EST) P athologist Signature POC Glucose 281 (H) 65 - 199 [facility] JO[facility] DAVID mg/dL [facility] Comment: Supplemental ranges: <140 mg/dL before meals <180 mg/dL all other times of the day Specimen Anatomical Collection Method Collection Time Receive d Time (Source) Location / / Volume Laterality Blood 09/04/2021 9:01 PM 9:01 EST PM EST Serafin Lam MD POINT OF CARE TEST ORDERABLE S Performing Organization Address City/State/[place] [address] (ABNORMAL) POCT Glucose (09/04/2021 5:45 PM EST) P athologist Signature POC Glucose 287 (H) 65 - 199 [facility] JO[facility] DAVID mg/dL [facility] Comment: Supplemental ranges: <140 mg/dL before meals <180 mg/dL all other times of the day Specimen Anatomical Collection Method Collection Time Receive d Time (Source) Location / / Volume Laterality Blood 09/04/2021 5:45 PM 5:45 EST PM EST Serafin Lam MD POINT OF CARE TEST ORDERABLE S Performing Organization Address City/State/[place] [address] (ABNORMAL) POCT Glucose (09/04/2021 4:17 PM EST) P athologist Signature POC Glucose 296 (H) 65 - 199 [place] [facility] mg/dL [facility] Comment: Supplemental ranges: <140 mg/dL before meals <180 mg/dL all other times of the day Specimen Anatomical Collection Method Collection Time Receive d Time (Source) Location / / Volume Laterality Blood 09/04/2021 4:17 PM 12/04/202 1 4:17 EST PM EST Serafin Lam MD POINT OF CARE TEST ORDERABLE S Performing Organization Address City/State/[place] [address] (ABNORMAL) POCT Glucose (09/04/2021 2:21 PM EST) P athologist Signature POC Glucose 373 (H) 65 - 199 [place] [facility] mg/dL [facility] Comment: Supplemental ranges: <140 mg/dL before meals <180 mg/dL all other times of the day Specimen Anatomical Collection Method Collection Time Receive d Time (Source) Location / / Volume Laterality Blood 09/04/2021 2:21 PM 2:21 EST PM EST Serafin Lam MD POINT OF CARE TEST ORDERABLE S Performing Organization Address City/State/[place] [address] (ABNORMAL) POCT Glucose (09/04/2021 11:32 AM EST) P athologist Signature POC Glucose 262 (H) 65 - 199 [place] [facility] mg/dL [facility] Comment: Supplemental ranges: <140 mg/dL before meals <180 mg/dL all other times of the day Specimen Anatomical Collection Method Collection Time Receive d Time (Source) Location / / Volume Laterality Blood 09/04/2021 11:32 09/04/2021 AM EST 11:32 AM EST Serafin Lam MD POINT OF CARE TEST ORDERABLE S Performing Organization Address City/State/[place] [address] POCT Glucose (09/04/2021 10:14 AM EST) P athologist Signature POC Glucose 174 65 - 199 [facility] JOSE DAVID mg/dL [facility] Comment: Supplemental ranges: <140 mg/dL before meals <180 mg/dL all other times of the day Specimen Anatomical Collection Method Collection Time Receive d Time (Source) Location / / Volume Laterality Blood 09/04/2021 10:14 09/04/2021 AM EST 10:14 AM EST Serafin Lam MD POINT OF CARE TEST ORDERABLE S Performing Organization Address City/State/ZIP [place] [address] XR Chest One View (09/04/2021 9:40 AM EST) Anatomical Region Laterality Modality Chest N/A Digital Radiography Specimen (Source) Anatomical Location Collection Method / Collectio n Time Received Time / Laterality Volume Impressions 09/04/2021 10:10 AM EST Interval removal of Corinna-Tavia catheter. Interval improvement in prominence of persistent mild pulmonary vascular conge stion. No airspace consolidation. No pneumothorax. Unchanged cardiac silhouet te. A left humeral head resurfacing hardware. Thank you for letting us participate in the care of this patient. ??If you are a health care provider and have any questi ons regarding this report, please contact the number below. ??For patients who have questions please contact the health clinical care leader that requested your imaging first. ? Narrative 09/04/2021 10:10 AM EST EXAMINATION: XR CHEST ONE VIEW CLINICAL HISTORY: cough, sob TECHNIQUE: 1 view of the chest COMPARISON: September 02, 2021 FINDINGS: See impression. Procedure Note Ramos Ball MD - 09/04/2021For matting of this note might be different from the original. EXAMINATION: XR CHEST ONE VIEW CLINICAL HISTORY: cough, sob TECHNIQUE: 1 view of the chest COMPARISON: September 02, 2021 FINDINGS: See impression. IMPRESSION Interval removal of Corinna-Tavia catheter. Interval improvement in prominence of persistent mild pulmonary vascular conge stion. No airspace consolidation. No pneumothorax. Unchanged cardiac silhouet te. A left humeral head resurfacing hardware. Thank you for letting us participate in the care of this patient. If you are a health care provider and have any questi ons regarding this report, please contact the number below. For patients w ho have questions please contact the health clinical care leader that requested your imaging first. Electronically signed by: Ramos jaquez MD, [facility] ([phone]), at 09/04/2021 10:10 AM Serafin Lam MD IMG DX ORDERABLES POCT Glucose (09/04/2021 8:03 AM EST) athologist Signature POC Glucose 107 65 - 199 [place] [facility] mg/dL [facility] Comment: Supplemental ranges: <140 mg/dL before meals <180 mg/dL all other times of the day Specimen Anatomical Collection Method Collection Time Receive d Time (Source) Location / / Volume Laterality Blood 09/04/2021 8:03 AM 8:03 EST AM EST Serafin Lam MD POINT OF CARE TEST ORDERABLE S Performing Organization Address City/[facility]/ZIP [place] [address] (ABNORMAL) POCT Glucose (09/04/2021 6:02 AM EST) athologist Signature POC Glucose 264 (H) 65 - 199 [place] [facility] mg/dL [facility] Comment: Supplemental ranges: <140 mg/dL before meals <180 mg/dL all other times of the day Specimen Anatomical Collection Method Collection Time Receive d Time (Source) Location / / Volume Laterality Blood 09/04/2021 6:02 AM 6:02 EST AM EST Serafin Lam MD POINT OF CARE TEST ORDERABLE S Performing Organization Address City/[facility]/ZIP [place] [address] (ABNORMAL) POCT Glucose (09/04/2021 4:02 AM EST) athologist Signature POC Glucose 285 (H) 65 - 199 [place] [facility] mg/dL [facility] Comment: Supplemental ranges: <140 mg/dL before meals <180 mg/dL all other times of the day Specimen Anatomical Collection Method Collection Time Receive d Time (Source) Location / / Volume Laterality Blood 09/04/2021 4:02 AM 4:02 EST AM EST Serafin Lam MD POINT OF CARE TEST ORDERABLE S Performing Organization Address City/State/ZIP [place] [address] (ABNORMAL) BMP w/fasting Glucose (09/04/2021 2:47 AM EST) athologist Signature Glucose 362 (H) 65 - 99 [facility] F[facility] mg/dL [facility] Comment: result rechecked-rg ?Fasting* Glucose Interpretive C riteria Normal ?65-99 [...] of Diabetes Mellitus, Position Statement from the [place] [employer]. ??Diabete s Care, Volume 33, Supplement 1, Oct 2009 BUN 16 8 - 18 mg/dL [facility] Creatinine 0.69 (L) 0.70 - 1.20 mg/dL [facility] Sodium 140 135 - 145 [...] if there are any qu estions. Chloride 104 98 - 107 mmol/L [facility] CO2 Not Perf [facility] Comment: Add-on request. Sample too old to perform test. Anion Gap Unable to Calculate 5 - 15 mmol/L [facility] Calcium 8.9 8.5 - 10.5 mg/dL [facility] Estimated GFR 104 >=60 mL/min/1.73 m?? [facility] Comment: This patient? s estimated glomerular filtration rate (eGFR) is between 104 mL/min/1.73 m2 (patients with less muscl e mass) and 121 mL/min/1.73 m2 (patients with more muscle mass) [...] / Volume Laterality Blood Venous Draw / 09/04/2021 2:47 AM 09/04/20 3:04 Unknown EST AM EST Resulting Agency Comment Spec In Lab Mirza Robbins DO CHEMISTRY ORDERABLES Performing Organization Address City/State/ZIP [place] [address] (ABNORMAL) Differential, Automated (09/04/2021 2:47 AM EST) [facility] gist Method Time Signature Neutrophils % 62.4 % [facility] Neutr Abs (ANC) 5.80 1.70 - [facility] 6.10 [facility] x10(3)/[facility] LABORATORY Lymphocytes % 23.0 % [facility] Lymphocytes Abs 2.1 0.9 - 3.2 [facility] x10(3)/[facility] LABORATORY Monocytes % 6.8 % [facility] Monocyte Abs 0.6 0.3 - 0.9 [facility] x10(3)/[facility] LABORATORY Eosinophils % 7.0 % [facility] Eosinophils Abs 0.6 (H) 0.0 - 0.4 [facility] x10(3)/[facility] LABORATORY Basophils % 0.4 % [facility] Basophils Abs 0.0 0.0 - 0.1 [facility] x10(3)/[facility] LABORATORY Immature Gran % 0.40 % [facility] Comment: Immature granulocytes(IG's)percentage an d absolute count will include metamyelocytes, myelocytes, and promyelo cytes. Blood smears from CBCs yielding IG's will be scanned manually for concor dance. If this scan disagrees with the automated IG or if promyelocytes are not ed, a manual differential will be performed. Anaya Gran Abs 0.04 0.00 - 0.04 x10(3)/[facility] LABORATORY Specimen Anatomical Collection Method Collection Time Receive d Time (Source) Location / / Volume Laterality Blood 09/04/2021 2:47 AM 2:51 EST AM EST Resulting Agency Comment Spec In Lab Joshuaa Rosendo DO HEMATOLOGY ORDERABLES Performing Organization Address City/State/ZIP [place] [address] (ABNORMAL) Hemogram (09/04/2021 2:47 AM EST) Analysis Performed At Patho logist Time Signature WBC 9.3 4.0 - 9.5 [facility] x10(3)/[facility] LABORATORY RBC 4.04 4.00 - [facility] 5.21 [facility] x10(6)/[facility] LABORATORY Hemoglobin 9.4 (L) 11.7 - [facility] 15.[facility] g/dL [facility] Hematocrit 30.9 (L) 35.7 - [facility] 45.8 % [facility] MCV 76.5 (L) 82.6 - [facility] 94.4 fL [facility] MCH 23.3 (L) 27.1 - [facility] 32.0 pg [facility]ORY MCHC 30.4 (L) 31.7 - [facility] 35.0 g/dL [facility] Platelets 358 (H) 145 - 357 [facility] x10(3)/[facility] LABORATORY RDWSD 54.8 (H) 37.0 - [place] [facility] 46.0 [facility] LABORATORY RDWCV 20.7 (H) 11.5 - [facility] 14.1 % [facility]OR[facility]ORY MPV 9.7 7.6 - 12.9 [place] [facility] LABORATORY nRBC % Auto 0.0 % [facility]ORY nRBC Abs Auto 0.000 0.000 - [facility] 0.000 [facility] x10(3)/[facility] LABORATORY Specimen Anatomical Collection Method Collection Time Receive d Time (Source) Location / / Volume Laterality Blood 09/04/2021 2:47 AM 1 2:51 EST AM EST Resulting Agency Comment Spec In Lab Mirza Robibns DO HEMATOLOGY ORDERABLES Performing Organization Address City/State/ZIP Code Phon e Number [address] Magnesium (09/04/2021 2:47 AM EST) P athologist Signature Magnesium 0.89 0.69 - 1.07 [facility] JOSE DAVID mmol/L [facility] LABOR[facility]ORY Specimen Anatomical Collection Method Collection Time Receive d Time (Source) Location / / Volume Laterality Blood 09/04/2021 2:47 AM 1 2:51 EST AM EST Resulting Agency Comment Spec In Lab Tameka Chu MD CHEMISTRY ORDERABLES Performing Organization Address City/State/ZIP Code Phon e Number [address] (ABNORMAL) POCT Glucose (09/04/2021 2:08 AM EST) P athologist Signature POC Glucose 356 (H) 65 - 199 [facility] mg/dL [facility] Comment: Supplemental ranges: <140 mg/dL before meals <180 mg/dL all other times of the day Specimen Anatomical Collection Method Collection Time Receive d Time (Source) Location / / Volume Laterality Blood 09/04/2021 2:08 AM 1 2:08 EST AM EST Serafin Lam MD POINT OF CARE TEST ORDERABLE S Performing Organization Address City/State/[place] [address] (ABNORMAL) POCT Glucose (09/04/2021 12:12 AM EST) athologist Signature POC Glucose 326 (H) 65 - 199 [facility] mg/dL [facility] Comment: Supplemental ranges: <140 mg/dL before meals <180 mg/dL all other times of the day Specimen Anatomical Collection Method Collection Time Receive d Time (Source) Location / / Volume Laterality Blood 09/04/2021 12:12 09/04/2021 AM EST 12:12 AM EST Serafin Lam MD POINT OF CARE TEST ORDERABLE S Performing Organization Address City/State/Z[place] [address] (ABNORMAL) Hemoglobin and Hematocrit, blood (09/03/2021 8:36 PM EST) athologist Signature Hemoglobin 9.5 (L) 11.7 - [facility] 15.5 g/dL [facility] Hematocrit 30.6 (L) 35.7 - [facility] 45.8 % [facility] LAB[facility]ORY Specimen Anatomical Collection Method Collection Time Receive d Time (Source) Location / / Volume Laterality Blood 09/03/2021 8:36 PM 1 9:08 EST PM EST Resulting Agency Comment Spec In Lab Serafin Lam MD HEMATOLOGY ORDERABLES Performing Organization Address City/State/Z[place] [address] POCT Glucose (09/03/2021 8:21 PM EST) athologist Signature POC Glucose 134 65 - 199 [place] [facility] mg/dL [facility] Comment: Supplemental ranges: <140 mg/dL before meals <180 mg/dL all other times of the day Specimen Anatomical Collection Method Collection Time Receive d Time (Source) Location / / Volume Laterality Blood 09/03/2021 8:21 PM 1 8:21 EST PM EST Serafin Lam MD POINT OF CARE TEST ORDERABLE S Performing Organization Address City/State/ZIP [place] [address] EKG 12 Lead (09/03/2021 7:27 PM EST) Component Value Ref Range Test Analysis Performed Pathologis t Method Time At Signature Ventricular rate 98 BPM MUSE SYSTEM Atrial Rate 98 BPM MUSE SYSTEM P-R Interval 146 ms MUSE SYSTEM QRS Duration 94 ms MUSE SYSTEM Q-T Interval 380 ms MUSE SYSTEM QTC Calculated 485 ms MUSE SYSTEM (Bezet) Calculated P [place] 35 degrees MUSE SYSTEM Calculated R [place] 38 degrees MUSE SYSTEM Calculated T [place] 80 degrees MUSE SYSTEM INTERPRETATION Normal sinus rhythm MUSE SYSTEM Anterolateral infarct (cited on or before 02-SEP-2021) Abnormal ECG When compared with ECG of 02-SEP-2021 17:26, No significant change was found Confirmed by MD Carole, Serafin ([id number]) on 09/04/2021 10:4 7:29 AM Specimen Anatomical Collection Method Collection Time Receive d Time (Source) Location / / Volume Laterality 09/03/2021 7:27 PM EST 10:47 AM EST Rafi Barrett MD ECG ORDERABLES Performing Organization Address City/State/ZIP Code Phon e Number MUSE SYSTEM CARDIAC CATHETERIZATION (09/03/2021 7:10 PM EST) Anatomical Region Laterality Modality Other Specimen (Source) Anatomical Location Collection Method / Collectio n Time Received Time / Laterality Volume Narrative 09/07/2021 5:44 PM EST ?[facility] ? Cardiac Cathete rization/Intervention Report ? Patient Name: Sho, Aracelis ? Procedure Date: 09/03/2021 ? A #: [id number] ? Primary Physician: Rafi Barrett ? Case #: [id number] ? File Name: [id number] ? Catheterization Order Number: [id number] ? [facility] ? Final Report [place], [place] ? Patient Name: ? Aracelis Sho ? ID#: ?[id number] ? : ?1975 ? Procedure Date: ? Santi 3, 202 1 ? Case #: ? [id number] ? Room: ? 5 ? Case Physician: ? Rafi Barrett M.D. ?Start: ?16:41 ?Fellow: ? Humza E G acad, M.D. ?Admission: ??09/02/2021 ? Discharge: ??09/05/2021 ? Referring Physician: ??Valentin Parekh M.D. ? Procedures: ?* Coronary Angiography ?* Left Heart Catheterization ?* Coronary Stent Insertion ?* Vascular Closure Device Deplo yment ?* Intra-Aortic Balloon Pump (IA BP) Removal ?* Access Site Angiography ?* Arterial Blood Gases ? History ?Aracelis Monique is a 46 year old wom an. She has hypertension. The patient's ?smoking status is Current with Current - Every Day frequency, using ?cigarettes. Cigarette use is He liban (>=10/day). She has ?hypercholesterolemia. The patie nt has insulin dependent diabetes ?mellitus. She is status post a recent non-ST elevation myocardial ?infarction. The patient has a h istory of pulmonary hypertension. She also ?has a history of chronic obstru ctive pulmonary disease. Prior to the ?initiation of this procedure, t he patient was designated as ASA Class IV. ?The [facility] clinical frailty scale is 3: Managing Well. ? Diagnostic Tests: ?Prior Coronary Angiography: ? LV ejection fraction wit hin 6 months is 60%. ?Electrocardiography: ? EKG was assessed by ECG. EKG was Abnormal. EKG showed T-wave ? inversions. ?Medications Prior to Procedure: ? Aspirin and Statin. ? Indications for Diagnostic Cath: ?The priority of the diagnostic procedure was Urgent. The indication for ?the tree tapping laborer visit is ACS great er than 24 hrs. Chest pain symptom ?assessment was: Typical Angina. This patient had cardiovascular ?instability due to persistent i schemic symptoms. Ventricular support was ?supplied with mechanical suppor t with Intra-aortic balloon pump (IABP) In ?place at start of procedure. ? Technique: ?A 6 SLFr sheath was inserted in the right radial artery utilizing the ?Seldinger technique. The right coronary artery was injected utilizing a ?6Fr IR 1.5 catheter. Coronary s tent insertion was performed and the ?equipment utilized will be desc ribed in the intervention summary section. ?8,000 units of heparin were adm inistered. A total of 200cc of Omnipaque ?were opened, 160cc of Omnipaque were administered and 40cc of Omnipaque ?were wasted. Radiation: Fluoro time was 20.8 minutes, dose area product ?was 118,477 mGYcm2 and air kerm a was 1,508 mGY. See the case log for ?additional details. ?The patient received the follow ing medications prior to and during the ?procedure: ? Unfractionated Heparin. ? Hemodynamics: ?Left Heart Pressures ? Resting: ? Syst D iast ? EDP ?a ?v ? m ?Ao 81 ?40 ?67 ? Coronary Angiography: ?Dominance: Right ?Left Main ? This vessel was not inje cted. ?Left Anterior Descending ? This vessel was not inje cted. ?Left Circumflex ? This vessel was not inje cted. ?Right Coronary Artery ? There was a 70% ulcerate d and eccentric long segmental stenosis of ? the proximal segment of the right coronary artery (RCA). ??The RCA ? was large. ??The mid seg ment of the RCA had a calcified single ? discrete 90% stenosis. ? ?There also was a 60% hazy long segmental ? stenosis of the distal s egment of the RCA. ? Indication for Intervention: ?Coronary intervention was indic ated for primary therapy for an acute ?myocardial infarction. The prio rity for the procedure was Urgent. The ?NCDR indication for the procedu re was NSTE-ACS. LVEF within one week was ?40%. Syntax Score was Intermedi ate. Initial PCI was performed for ?multivessel disease. ? Intervention Summary: ?Right Coronary Artery ? Proximal 70% ? Stent insertion was performed on the 70% stenosis in the ? proximal segmen t of the RCA. This was a de balbir lesion. ? According to th e ACC/AHA classification system, this lesion ? was a type C mo derate risk lesion. Primary prevention of ? restenosis was the indication for stent insertion. This was ? the culprit les ion. A guidewire was placed across this lesion. ? Vessel flow pre intervention was GLO 3. Lesion length was ? 30mm. This lesi on was severely calcified. ? Stent insertion was accomplished through a 6 Fr. Ikari Right ? 1.0 guide. ??A premounted 4.00 x 30 mm Resolute TYREE (EMILEE) was ? deployed with a maximum inflation pressure of 12 atmospheres. ? Following stent deployment, the lesion was dilated using a ? 4.50mm NC EUPHO RA 20 MM balloon with a maximum inflation ? pressure of 20 atmospheres. ? Another stent i nsertion was accomplished through a 6 Fr. Ikari ? Right 1.0 guide . ??A premounted 4.00 x 26 mm Resolute TYREE ? (EMILEE) was deplo yed with a maximum inflation pressure of 20 ? atmospheres. ?? Following stent deployment, the lesion was ? dilated using a 4.50mm NC EUPHORA 12 MM balloon with a maximum ? inflation press ure of 20 atmospheres. ? The final outco me was defined as successful. There was no ? residual stenos is following this intervention. The final GLO ? flow was 3. ? Mid 90% ? Stent insertion was performed on the 90% stenosis in the mid ? segment of the RCA. This was a de balbir lesion. This lesion was ? designated a ty pe B1 moderate risk lesion based on ACC/AHA ? classification system. Primary prevention of restenosis was ? the indication for stent insertion. This was the culprit ? lesion. A guide wire was placed across this lesion. Vessel flow ? pre interventio n was GLO 3. Lesion length was 10mm. ? Stent insertion was accomplished through a 6 Fr. Ikari Right ? 1.5 guide. ??Th e lesion was predilated with a 3.50mm NC EUPHORA ? 20 MM balloon w ith a maximum inflation pressure of 20 ? atmospheres. ?? A premounted 3.50 x 26 mm Resolute TYREE (EMILEE) ? was deployed wi a maximum inflation pressure of 20 ? atmospheres. ?? Following stent deployment, the lesion was ? dilated using a 3.00mm EUPHORA 12 MM . ? Another stent i nsertion was accomplished through a 6 Fr. Ikari ? Right 1.0 guide . ??A premounted 3.50 x 15 mm Resolute TYREE ? (EMILEE) was deplo yed with a maximum inflation pressure of 12 ? atmospheres. ?? Following stent deployment, the lesion was ? dilated using a 4.00mm NC EUPHORA 20 MM balloon with a maximum ? inflation press ure of 12 atmospheres. ? The final outco me was defined as successful. There was no ? residual stenos is following this intervention. The final GOL ? flow was 3. ? Distal 60% ? Stent insertion was performed on the 60% stenosis in the ? distal segment of the RCA. This was a de balbir lesion. ? According to th e ACC/AHA classification system, this lesion ? was a type B1 l ow risk lesion. Primary prevention of ? restenosis was the indication for stent insertion. A guidewire ? was placed acro ss this lesion. Vessel flow pre intervention ? was GLO 3. Les ion length was 15mm. ? Stent insertion was accomplished through a 6 Fr. Ikari Right ? 1.5 guide. ??Th e lesion was predilated with a 3.00mm EUPHORA 12 ? MM balloon with a maximum inflation pressure of 12 ? atmospheres. ?? A premounted 4.00 x 38 mm Resolute TYREE (EMILEE) ? was deployed wi a maximum inflation pressure of 18 ? atmospheres. ?? Following stent deployment, the lesion was ? dilated using a 4.00mm NC EMERGE 20 MM balloon with a maximum ? inflation press ure of 18 atmospheres. ? The final outco me was defined as successful. There was no ? residual stenos is following this intervention. The final GLO ? flow was 3. ? Vascular Access: ?Vascular Access Management: ? Mechanical Compression o f the right radial artery access site was ? performed. ? Point of Care Testing: ?ABG: ? Arterial Blood gasses we re performed using the I-Stat analyzer at ? 16:50: pH: 7.44, pCO2: 4 0.8, pO2: 68.0, sPO2: 94%, HCO3: 27 on FIO2: ? 4 L O2 NC. ?I-Stat: ? I-Stat was performed usi ng the I-Stat analyzer at 16:50: Na+: 137, ? K+: 4.1, Hct: 28%, Hb: 9 .5. ? Dual Antiplatelet (DAPT) Recommendations : ?Drug eluting stent (EMILEE) insert ed. ?P2Y12 Loading dose administered prior to arrival in the tree tapping laborer. ?Recommended anti-platelet/anti- thrombotic regimen: ?Continue aspirin 81 mg daily. ?Continue clopidogrel 75 mg leighann y. ?These recommendations are made at the time of the intervention. Patient ?and provider preferences or a c hanging clinical situation may require ?modification of this regimen. [facility] ?[facility]. ?The 1 year bleeding risk as omid culated by the PRECISE DAPT score is High ?risk. ?This patient may be at high ble eding risk. In patients treated with DAPT ?after coronary stent implantati on who develop a high risk of bleeding, or ?are at high risk of severe blee ding complication, or develop significant ?overt bleeding, discontinuation of P2Y12 inhibitor therapy after 3 months ?for stable ischemic heart disea se (SIHD) or after 6 months for acute ?coronary syndrome (ACS) may be reasonable. ? Conclusions: ?* Obstructive disease of the RC A ?* Successful stent insertion of the mid RCA lesion ?* Successful stent insertion of the distal RCA lesion ?* Successful stent insertion of the proximal RCA lesion ?* See Dual Antiplatelet (DAPT) Recommendations above ? Complications/Events: ?The patient had no complication s during these procedures. ? Comments: ?Patient presented for planned i ntervention on RCA. Ikari Right catheter ?provided adequate support. Succ essful stenting of the RCA was performed, ?with total of 4 stents placed c overing the ostial to distal RCA. ?Balloon pump was removed and ac cess site was closed with a 6Fr Perclose ?device. Darryl was also removed. Patient was transferred to the floor in ?stable condition. Patient has r esidual LAD disease of unclear ?significance. Recommend assessm ent of patients symptoms and consideration ?of further either invasive or n on-invasive assessment of ischemia in this ?distribution. ?The attending physician was presen t for the entire procedure. ?Dr. Rafi Barrett M.D. was pres ent during the moderate sedation ?intraservice time as documented by the sedation nurse. ??Case time = 02:17. ?Dada Valdeze d the coronary angiography, left heart ?catheterization, stent insertion-c oronary, access site angiography, ?vascular closure device, ABG and I ABP removal in tree tapping laborer. ? Rafi Barrett M.D. ? Report Finalized: 09/07/2021 ??17:39 ? Report Last Ammended: 10/14/2021 ??10:24 ? Procedure Note Rafi Barrett MD - 10/14/2021Formatt ing of this note might be different from the original. [facility] Cardiac Catheterization/Intervention Re port Patient Name: Sho Aracelis Procedure Date: 09/03/2021 A #: [id number] Primary Physician: Rafi Barrett Case #: [id number] File Name: [id number] Catheterization Order Number: [id number] [facility] [employer] [facility] Final Report [place], [place] Patient Name: Aracelis Monique ID#: [id number] : 1975 Procedure Date: September 03, 2021 Case #: [id number] Room: 5 Case Physician: Rafi Barrett M.D. art: 16:41 Fellow: Humza Chin M.D. Admission : 09/02/2021 Discharge: 09/05/2021 Referring Physician: Charles Meng Procedures: * Coronary Angiography * Left Heart Catheterization * Coronary Stent Insertion * Vascular Closure Device Deployment * Intra-Aortic Balloon Pump (IABP) Jorge gene * Access Site Angiography * Arterial Blood Gases History Aracelis Monique is a 46 year old woman. She has hypertension. The patient's smoking status is Current with Current - Every Day frequency, using cigarettes. Cigarette use is Heavy (>=1 0/day). She has hypercholesterolemia. The patient has i nsulin dependent diabetes mellitus. She is status post a recent n on-ST elevation myocardial infarction. The patient has a history o f pulmonary hypertension. She also has a history of chronic obstructive pu lmonary disease. Prior to the initiation of this procedure, the patie nt was designated as ASA Class IV. The [facility] clinical frailty scale is 3: M anaging Well. Diagnostic Tests: Prior Coronary Angiography: LV ejection fraction within 6 months is 60%. Electrocardiography: EKG was assessed by ECG. EKG was Abnorm al. EKG showed T-wave inversions. Medications Prior to Procedure: Aspirin and Statin. Indications for Diagnostic Cath: The priority of the diagnostic procedur e was Urgent. The indication for the tree tapping laborer visit is ACS greater than 24 hrs. Chest pain symptom assessment was: Typical Angina. This pa tient had cardiovascular instability due to persistent ischemic symptoms. Ventricular support was supplied with mechanical support with I ntra-aortic balloon pump (IABP) In place at start of procedure. Technique: A 6 SLFr sheath was inserted in the [facility] radial artery utilizing the Seldinger technique. The right coronary artery was injected utilizing a 6Fr IR 1.5 catheter. Coronary stent ins ertion was performed and the equipment utilized will be described in the intervention summary section. 8,000 units of heparin were administere d. A total of 200cc of Omnipaque were opened, 160cc of Omnipaque were ad ministered and 40cc of Omnipaque were wasted. Radiation: Fluoro time was 20.8 minutes, dose area product was 118,477 mGYcm2 and air kerma was 1, 508 mGY. See the case log for additional details. The patient received the following medi cations prior to and during the procedure: Unfractionated Heparin. Hemodynamics: Left Heart Pressures Resting: Syst Diast EDP a v m Ao 81 40 67 Coronary Angiography: Dominance: Right Left Main This vessel was not injected. Left Anterior Descending This vessel was not injected. Left Circumflex This vessel was not injected. Right Coronary Artery There was a 70% ulcerated and eccentric long segmental stenosis of the proximal segment of the right coron tima artery (RCA). The RCA was large. The mid segment of the RCA h ad a calcified single discrete 90% stenosis. There also was a 60% hazy long segmental stenosis of the distal segment of the R CA. Indication for Intervention: Coronary intervention was indicated for primary therapy for an acute myocardial infarction. The priority for the procedure was Urgent. The NCDR indication for the procedure was N SARA-ACS. LVEF within one week was 40%. Syntax Score was Intermediate. Ini tial PCI was performed for multivessel disease. Intervention Summary: Right Coronary Artery Proximal 70% Stent insertion was performed on the 70 % stenosis in the proximal segment of the RCA. This was a de balbir lesion. According to the ACC/AHA classification system, this lesion was a type C moderate risk lesion. Prim tima prevention of restenosis was the indication for stent insertion. This was the culprit lesion. A guidewire was rohit jus across this lesion. Vessel flow pre intervention was GLO 3 . Lesion length was 30mm. This lesion was severely calcifie d. Stent insertion was accomplished throug h a 6 Fr. Ikari Right 1.0 guide. A premounted 4.00 x 30 mm Re solute TYREE (EMILEE) was deployed with a maximum inflation press ure of 12 atmospheres. Following stent deployment, the lesion was dilated using a 4.50mm NC EUPHORA 20 MM balloon with a maximum inflation pressure of 20 atmospheres. Another stent insertion was accomplishe d through a 6 Fr. Ikari Right 1.0 guide. A premounted 4.00 x 26 mm Resolute TYREE (EMILEE) was deployed with a maximum infla tion pressure of 20 atmospheres. Following stent deployment , the lesion was dilated using a 4.50mm NC EUPHORA 12 MM balloon with a maximum inflation pressure of 20 atmospheres. The final outcome was defined as succes sful. There was no residual stenosis following this interv ention. The final GLO flow was 3. Mid 90% Stent insertion was performed on the 90 % stenosis in the mid segment of the RCA. This was a de balbir lesion. This lesion was designated a type B1 moderate risk lesi on based on ACC/AHA classification system. Primary preventi on of restenosis was the indication for stent insertion. Thi s was the culprit lesion. A guidewire was placed across t his lesion. Vessel flow pre intervention was GLO 3. Lesion arely gth was 10mm. Stent insertion was accomplished throug h a 6 Fr. Ikari Right 1.5 guide. The lesion was predilated wi th a 3.50mm NC EUPHORA 20 MM balloon with a maximum inflation pressure of 20 atmospheres. A premounted 3.50 x 26 mm Resolute TYREE (EMILEE) was deployed with a maximum inflation p ressure of 20 atmospheres. Following stent deployment , the lesion was dilated using a 3.00mm EUPHORA 12 MM . Another stent insertion was accomplishe d through a 6 Fr. Ikari Right 1.0 guide. A premounted 3.50 x 15 mm Resolute TYREE (EMILEE) was deployed with a maximum infla tion pressure of 12 atmospheres. Following stent deployment , the lesion was dilated using a 4.00mm NC EUPHORA 20 MM balloon with a maximum inflation pressure of 12 atmospheres. The final outcome was defined as succes sful. There was no residual stenosis following this interv ention. The final GLO flow was 3. Distal 60% Stent insertion was performed on the 60 % stenosis in the distal segment of the RCA. This was a d e balbir lesion. According to the ACC/AHA classification system, this lesion was a type B1 low risk lesion. Primary prevention of restenosis was the indication for stent insertion. A guidewire was placed across this lesion. Vessel f low pre intervention was GLO 3. Lesion length was 15mm. Stent insertion was accomplished throug h a 6 Fr. Ikari Right 1.5 guide. The lesion was predilated wi th a 3.00mm EUPHORA 12 MM balloon with a maximum inflation pre ssure of 12 atmospheres. A premounted 4.00 x 38 mm Resolute TYREE (EMILEE) was deployed with a maximum inflation p ressure of 18 atmospheres. Following stent deployment , the lesion was dilated using a 4.00mm NC EMERGE 20 MM balloon with a maximum inflation pressure of 18 atmospheres. The final outcome was defined as succes sful. There was no residual stenosis following this interv ention. The final GLO flow was 3. Vascular Access: Vascular Access Management: Mechanical Compression of the right rad ial artery access site was performed. Point of Care Testing: ABG: Arterial Blood gasses were performed us ing the I-Stat analyzer at 16:50: pH: 7.44, pCO2: 40.8, pO2: 68.0, sPO2: 94%, HCO3: 27 on FIO2: 4 L O2 NC. I-Stat: I-Stat was performed using the I-Stat a nalyzer at 16:50: Na+: 137, K+: 4.1, Hct: 28%, Hb: 9.5. Dual Antiplatelet (DAPT) Recommendations : Drug eluting stent (EMILEE) inserted. P2Y12 Loading dose administered prior t o arrival in the tree tapping laborer. Recommended anti-platelet/anti-thrombot ic regimen: Continue aspirin 81 mg daily. Continue clopidogrel 75 mg daily. These recommendations are made at the t yolande of the intervention. Patient and provider preferences or a changing clinical situation may require modification of this regimen. Consult [facility] [place] for questions. The 1 year bleeding risk as calculated by the PRECISE DAPT score is High risk. This patient may be at high bleeding ri sk. In patients treated with DAPT after coronary stent implantation who d evelop a high risk of bleeding, or are at high risk of severe bleeding com plication, or develop significant overt bleeding, discontinuation of P2Y1 2 inhibitor therapy after 3 months for stable ischemic heart disease (SIHD ) or after 6 months for acute coronary syndrome (ACS) may be reasonab le. Conclusions: * Obstructive disease of the RCA * Successful stent insertion of the mid RCA lesion * Successful stent insertion of the dis nigel RCA lesion * Successful stent insertion of the pro ximal RCA lesion * See Dual Antiplatelet (DAPT) Recommen dations above Complications/Events: The patient had no complications during these procedures. Comments: Patient presented for planned intervent ion on RCA. Ikari Right catheter provided adequate support. Successful s tenting of the RCA was performed, with total of 4 stents placed covering the ostial to distal RCA. Balloon pump was removed and access sit e was closed with a 6Fr Perclose device. Darryl was also removed. Patient was transferred to the floor in stable condition. Patient has residual LAD disease of unclear significance. Recommend assessment of p atients symptoms and consideration of further either invasive or non-invas mateo assessment of ischemia in this distribution. The attending physician was present for the entire procedure. Dr. Rafi Barrett M.D. was present d uring the moderate sedation intraservice time as documented by the sedation nurse. Case time = 02:17. Dr. Rafi Barrett M.D. performed the coronary angiography, left heart catheterization, stent insertion-santizo ry, access site angiography, vascular closure device, ABG and IABP r emoval in tree tapping laborer. Rafi Barrett M.D. Report Finalized: 09/07/2021 17:39 Report Last Ammended: 10/14/2021 10:24 Rafi Barrett MD CARDIAC CATH ORDERABLES (ABNORMAL) Point of Care Blood Gas Historical (09/03/2021 5:50 PM EST) Patholo gist Method Time Signature POC pH 7.44 7.35 - [facility] 7.45 [facility] POC PCO2 41 35 - 45 [facility] mmHg [facility] POC PO2 68 (L) 85 - 104 [facility] LABORATORY POC Base Excess 4.0 (H) -3.0 - 3.0 [facility] K mmol/L [facility] POC HCO3 27.8 (H) 20.0 - [facility] 26.0 [facility] Sodium 137 135 - 145 [facility] mmol/L [facility] POC Potassium 4.1 3.5 - 5.0 [facility] mmol/L [facility] POC Hematocrit 28.0 (L) 34.0 - [facility] 45.0 % [facility] POC Calc Hgb 9.5 (L) 11.2 - [facility] 15.7 g/dL [facility] Comment: The calculation of hemoglobin f rom hematocrit assumes a normal MCHC. POC Bgas Loc CC LAB [facility] Specimen Anatomical Collection Method Collection Time Receive d Time (Source) Location / / Volume Laterality Blood 09/03/2021 5:50 PM 9:00 EST AM EST Serafin Lam MD CHEMISTRY ORDERABLES Performing Organization Address City/State/[place] [address] POCT Glucose (09/03/2021 12:09 PM EST) P athologist Signature POC Glucose 112 65 - 199 [facility] mg/dL [facility] Comment: Supplemental ranges: <140 mg/dL before meals <180 mg/dL all other times of the day Specimen Anatomical Collection Method Collection Time Receive d Time (Source) Location / / Volume Laterality Blood 09/03/2021 12:09 09/03/2021 PM EST 12:09 PM EST Serafin Lam MD POINT OF CARE TEST ORDERABLE S Performing Organization Address City/[facility]/[place]IP [place] [address] Heparin (unfractionated) Level (09/03/2021 10:17 AM EST) athologist Signature Heparin UFH 0.26 IU/mL [facility] LAB[facility]ORY Comment: Heparin (anti-Xa) levels should be deter mined in a plasma sample that has been drawn 6 hours after a dose change to leslie roximate steady-state for continuous heparin infusions. Indication specific Heparin (anti-Xa) le vels based on order set selection: Acute DVT or PE treatment: 0.3 ? 0.7 IU/mL Thrombosis Prevention (eg. atrial fibril lation, sherif-procedural bridging, mechanical valves): 0.3 ? 0.7 IU/mL Acute Coronary Syndrome: 0.3 ? 0.7 IU/mL Stroke Indications: 0.3 ? 0.5 IU/mL Ultra-low intensity (select indications in cardiac surgery): 0.1 ? 0.3 IU/mL Specimen Anatomical Collection Method Collection Time Receive d Time (Source) Location / / Volume Laterality Blood 09/03/2021 10:17 09/03/2021 AM EST 10:24 AM EST Resulting Agency Comment Spec In Lab Jay Jay Gant MD HEMATOLOGY ORDERABLES Performing Organization Address City/State/ZIP Code Phon e Number [address] ECHOCARDIOGRAM LMTD W/O CON W LMTD SPEC DOPP, COLOR DOPP (09/03/2021 9:34 AM EST) athologist Signature EF 37 [facility]ART[facility] SYSTEM Anatomical Region Laterality Modality Other Specimen (Source) Anatomical Location Collection Method / Collectio n Time Received Time / Laterality Volume 09/03/2021 Narrative 09/03/2021 10:34 AM EST Procedure: ?Transthoracic Echocardiogram Patient: ?SHO DECEMBER ?(Age): 1975(46y) Med Rec#: ? [id number] ?Sex: ?F ? Site Loc: ? [facility] ?Ht / Wt: ??163(cm)/78(kg) Pt. Loc: ?[facility] ? BSA: ?1.84 Study Date: ?? 09/03/2021 ?Pt. Type: Inpatient Tape: ? Referring: Tameka Neal Referring: JOSUÉ Reading: Carrie Salamanca ([id number]) Food Checker: Anca Darling Diagnosis: *Non-ST elevation (NSTEMI) myocardial i nfarction (I21.4) Rhythm: ? Sinus BP: ? 99/55 SUMMARY: 1. The left ventricle is mildly dilated. Moderate sized LV apical akinesis. Global left ventricular systol ic function is moderately reduced. The quantitative left ventricul ar ejection fraction by 3-D rendering is 37%. Cannot rule out a thro mbus in the left ventricle. 2. The right ventricle is normal in size . Right ventricular global systolic function is normal. 3. There is moderate (2+/4+) mitral regu rgitation present. 4. There is no pericardial effusion. Findings ? : Left Ventricle: ? The left ventricle is mildly dilated. ?Global left ventricular systolic f unction is moderately reduced. ?The quantitative left ventricular ejection fraction by 3-D rendering is 37%. ?There are segmental left ventricul ar wall motion abnormalities involving the ?Cannot rule out a thrombus in the left ventricle. ?A false chord is observed in the l eft ventricle. Right Ventricle: ? The right ventric le is normal in size. ?A pacemaker wire is visualized in the right ventricle. ?Right ventricular global systolic function is normal. ?Pulmonary artery hypertension coul d not be assessed due to inadequate tricuspid regurgitation jet. Aortic Valve: ? There is no evidence of aortic valve stenosis. ?There is no evidence of aortic reg urgitation. Mitral Valve: ? The mitral valve [place] flets are mildly thickened. ?There is no evidence of mitral sara nosis. ?There is moderate (2+/4+) mitral r egurgitation present. ?The PISA radius is 0.82 cm. ?The effective regurgitant orifice area is 0.35. Tricuspid Valve: ? There is no tricu spid valve stenosis. ?There is trace tricuspid regurgita tion present. ?The tricuspid regurgitant jet is d irected toward the septum. ?The tricuspid regurgitant jet is e ccentric. Pericardium: ? There is no pericardi al effusion. ?A pericardial fat pad is visualize d. Misc: ? Two-dimensional echo, limite d spectral Doppler and color Doppler performed. Mitral Valve ?Value ?Units (Range) ? MR volume (PISA) ?35.01 ?ml ? MR flow (PISA) ?127.69 ? ml/sec ? MR ERO ?0.35 ? cm2 ? MR PISA radius ?0.82 ? cm ? MR silva Vmax ? 30.03 ?cm/sec ? This report has been electronically sign ed by: _ Carrie Salamanca MD ? 09/03/2021 10: 33:25 Images reviewed and interpretation verif ied [facility] Cardiac Ultrasound Laboratory Procedure Note Carrie Salamanca MD - 09/03/2021Formatti ng of this note might be different from the original. Procedure: Transthoracic Echocardiogram Patient: SHO DECEMBER (Age): 1975 (46y) Med Rec#: [id number] Sex: F Site Loc: [facility] Ht / Wt: 163(cm)/78(kg) Pt. Loc: U BSA: 1.84 Study Date: 09/03/2021 Pt. Type: Inpatie nt Tape: Referring: Tameka Neal Referring: JOSUÉ Reading: Carrie Salamanca ([id number]) Food Checker: Anca Darling Diagnosis: *Non-ST elevation (NSTEMI) myocardial i nfarction (I21.4) Rhythm: Sinus BP: 99/55 SUMMARY: 1. The left ventricle is mildly dilated. Moderate sized LV apical akinesis. Global left ventricular systol ic function is moderately reduced. The quantitative left ventricul ar ejection fraction by 3-D rendering is 37%. Cannot rule out a thro mbus in the left ventricle. 2. The right ventricle is normal in size . Right ventricular global systolic function is normal. 3. There is moderate (2+/4+) mitral regu rgitation present. 4. There is no pericardial effusion. Findings : Left Ventricle: The left ventricle is mi ldly dilated. Global left ventricular systolic functi on is moderately reduced. The quantitative left ventricular eject ion fraction by 3-D rendering is 37%. There are segmental left ventricular wa ll motion abnormalities involving the Cannot rule out a thrombus in the left ventricle. A false chord is observed in the left v entricle. Right Ventricle: The right ventricle is normal in size. A pacemaker wire is visualized in the r ight ventricle. Right ventricular global systolic funct ion is normal. Pulmonary artery hypertension could not be assessed due to inadequate tricuspid regurgitation jet. Aortic Valve: There is no evidence of ao rtic valve stenosis. There is no evidence of aortic regurgit ation. Mitral Valve: The mitral valve leaflets are mildly thickened. There is no evidence of mitral stenosis . There is moderate (2+/4+) mitral regurg itation present. The PISA radius is 0.82 cm. The effective regurgitant orifice area is 0.35. Tricuspid Valve: There is no tricuspid v alve stenosis. There is trace tricuspid regurgitation present. The tricuspid regurgitant jet is direct ed toward the septum. The tricuspid regurgitant jet is eccent brittni. Pericardium: There is no pericardial eff usion. A pericardial fat pad is visualized. Misc: Two-dimensional echo, limited spec tral Doppler and color Doppler performed. Mitral Valve Value Units (Range) MR volume (PISA) 35.01 ml MR flow (PISA) 127.69 ml/sec MR ERO 0.35 cm2 MR PISA radius 0.82 cm MR alias Vmax 30.03 cm/sec This report has been electronically sign ed by: _ Carrie Salamanca MD 09/03/2021 10:33:25 Images reviewed and interpretation verif ied [facility] Cardiac Ultrasound Laboratory Tameka Chu MD ECHO ORDERABLES POCT Glucose (09/03/2021 9:14 AM EST) athologist Signature POC Glucose 108 65 - 199 [facility] mg/dL [facility] LABOR[facility]ORY Comment: Supplemental ranges: <140 mg/dL before meals <180 mg/dL all other times of the day Specimen Anatomical Collection Method Collection Time Receive d Time (Source) Location / / Volume Laterality Blood 09/03/2021 9:14 AM 9:14 EST AM EST Tameka Chu MD POINT OF CARE TEST ORDERAB LES Performing Organization Address City/[facility]/ZIP [place] [address] POCT Glucose (09/03/2021 7:04 AM EST) athologist Signature POC Glucose 102 65 - 199 [facility] Comment: Supplemental ranges: <140 mg/dL before meals <180 mg/dL all other times of the day Specimen Anatomical Collection Method Collection Time Receive d Time (Source) Location / / Volume Laterality Blood 09/03/2021 7:04 AM 7:04 EST AM EST Tameka Chu MD POINT OF CARE TEST ORDERAB LES Performing Organization Address City/[facility]/[place] [address] (ABNORMAL) Troponin (09/03/2021 6:20 AM EST) athologist Signature Troponin-T 0.07 (H) 0.00 - [facility] 0.00 ng/mL [facility] Comment: The 99th percentile for Troponin T is le ss than 0.01 ng/mL, any detectable cTnT concentration using this assay should be considered elevated. According to the third universal definit ion of myocardial infarction the following criteria with a clinical prese ntation consistent with acute myocardial ischemia meets the diagnosis for a myocardial infarction (CT). Detection of a rise and/or fall of cTnT, with at least one value greater than the 99th percentile (> or = 0.01) and wi th at least one of the following ?? Symptoms of ischemia ?? New or presumed new significant ST-se gment-T wave (ST-T) changes or new left bundle branch block (LBBB) ?? Development of pathologic Q waves in the ECG ?? Imaging evidence of new loss of viabl e myocardium or new regional wall motion abnormality ?? Identification of an intracoronary th rombus by angiography or autopsy Samples for cTnT testing should be obtai aruna serially upon first assessment and again 3 to 6 hours later. If the clinica l suspicion is high and previous samples have been negative an additional sample may be indicated. Reference: Third [place] Definition of Myocardial Infarction. Journal of the [place] [employer] 2012;60:1581-98 Specimen Anatomical Collection Method Collection Time Receive d Time (Source) Location / / Volume Laterality Blood 09/03/2021 6:20 AM 6:27 EST AM EST Resulting Agency Comment Spec In Lab Yumi Garcia MD CHEMISTRY ORDERABLES Performing Organization Address City/[facility]/ZIP [place] [address] Potassium (09/03/2021 4:00 AM EST) athologist Signature Potassium 4.3 3.5 - 5.0 [facility] mmol/L [facility] Comment: Please note: ??Patients with WBC >100,00 0 may have falsely elevated Potassium levels. ??For accurate Potassium quantif ication in these patients send serum separator tube (gold top) for subsequent determinations. ??Contact the Clinical Chemistry Laboratory if there are any qu estions. Specimen Anatomical Collection Method Collection Time Receive d Time (Source) Location / / Volume Laterality Blood 09/03/2021 4:00 AM 4:19 EST AM EST Resulting Agency Comment Spec In Lab Tameka Chu MD CHEMISTRY ORDERABLES Performing Organization Address City/[facility]/ZIP [facility] [place] [address] Heparin (unfractionated) Level (09/03/2021 4:00 AM EST) athologist Signature Heparin UFH 0.49 IU/mL [facility] LABORATORY Comment: Heparin (anti-Xa) levels should be deter mined in a plasma sample that has been drawn 6 hours after a dose change to leslie roximate steady-state for continuous heparin infusions. Indication specific Heparin (anti-Xa) le vels based on order set selection: Acute DVT or PE treatment: 0.3 ? 0.7 IU/mL Thrombosis Prevention (eg. atrial fibril lation, sherif-procedural bridging, mechanical valves): 0.3 ? 0.7 IU/mL Acute Coronary Syndrome: 0.3 ? 0.7 IU/mL Stroke Indications: 0.3 ? 0.5 IU/mL Ultra-low intensity (select indications in cardiac surgery): 0.1 ? 0.3 IU/mL Specimen Anatomical Collection Method Collection Time Receive d Time (Source) Location / / Volume Laterality Blood 09/03/2021 4:00 AM 4:19 EST AM EST Resulting Agency Comment Spec In Lab Jay Jay Gant MD HEMATOLOGY ORDERABLES Performing Organization Address City/State/ZIP [place] [address] (ABNORMAL) Differential, Automated (09/03/2021 12:45 AM EST) [facility] Method Time Signature Neutrophils % 61.6 % [facility] LABORATORY Neutr Abs (ANC) 7.46 (H) 1.70 - [facility] 6.10 [facility] x10(3)/[facility] LABORATORY Lymphocytes % 22.0 % [facility] LABORATORY Lymphocytes Abs 2.7 0.9 - 3.2 [facility] x10(3)/[facility] LABORATORY Monocytes % 7.9 % [facility] LAB[facility]ORY Monocyte Abs 1.0 (H) 0.3 - 0.9 [facility] x10(3)[facility] LABORATORY Eosinophils % 7.7 % [facility] LABORATORY Eosinophils Abs 0.9 (H) 0.0 - 0.4 [facility] x10(3)/[facility] LABORATORY Basophils % 0.3 % [facility] LABORATORY Basophils Abs 0.0 0.0 - 0.1 [facility] x10(3)/[facility] LABORATORY Immature Gran % 0.50 % [facility]ORY Comment: Immature granulocytes(IG's)percentage an d absolute count will include metamyelocytes, myelocytes, and promyelo cytes. Blood smears from CBCs yielding IG's will be scanned manually for concor dance. If this scan disagrees with the automated IG or if promyelocytes are not ed, a manual differential will be performed. Anaya Gran Abs 0.06 (H) 0.00 - 0.04 x10(3)/[facility] LABORATORY Specimen Anatomical Collection Method Collection Time Receive d Time (Source) Location / / Volume Laterality Blood 09/03/2021 12:45 09/03/2021 AM EST 12:56 AM EST Resulting Agency Comment Spec In Lab Joshualeida Rosendo DO HEMATOLOGY ORDERABLES Performing Organization Address City/State/ZIP [place] [address] (ABNORMAL) Hemogram (09/03/2021 12:45 AM EST) Analysis Performed At Patho logist Time Signature WBC 12.1 (H) 4.0 - 9.5 [facility] x10(3)/[facility] LABORATORY RBC 4.17 4.00 - [facility] JOSE DAVID 5.21 [facility] x10(6)/[facility] LABORATORY Hemoglobin 9.7 (L) 11.7 - [facility] 15.5 g/dL [facility] LAB[facility]ORY Hematocrit 31.1 (L) 35.7 - [facility] 45.8 % [facility] MCV 74.6 (L) 82.6 - [facility] 94.4 [facility] LABORATORY MCH 23.3 (L) 27.1 - [facility] 32.0 pg [facility] LABORATORY MCHC 31.2 (L) 31.7 - [facility] 35.[facility] g/dL [facility] LAB[facility]ORY Platelets 432 (H) 145 - 357 [facility] x10(3)/[facility] LABORATORY RDWSD 53.1 (H) 37.0 - [facility] JOSE DAVID 46.0 [facility] LABORATORY RDWCV 20.0 (H) 11.5 - [facility] 14.1 % [facility] LABORATORY MPV 9.4 7.6 - 12.9 [facility] nRBC % Auto 0.0 % [facility] LABORATORY nRBC Abs Auto 0.000 0.000 - [facility]SE DAVID 0.000 [facility] x10(3)/[facility] LABORATORY Specimen Anatomical Collection Method Collection Time Receive d Time (Source) Location / / Volume Laterality Blood 09/03/2021 12:45 09/03/2021 AM EST 12:56 AM EST Resulting Agency Comment Spec In Lab Mirza Robbins DO HEMATOLOGY ORDERABLES Performing Organization Address City/State/ZIP [place] [address] (ABNORMAL) CMP w/fasting Glucose (09/03/2021 12:45 AM EST) athologist Signature Glucose 126 (H) 65 - 99 [facility] Fasting mg/dL [facility]ORY Comment: ?Fasting* Glucose Interpretive C [...] of Diabetes Mellitus, Position Statement from the [place] [employer]. ??Diabete s Care, Volume 33, Supplement 1, Oct 2009 BUN 12 8 - 18 mg/dL [facility] LAB[facility]ORY Creatinine 0.71 0.70 - 1.20 mg/dL [facility] LABORATORY Sodium 141 135 - 145 mmol/L [facility] LABORATORY Potassium 3.8 3.5 - 5.0 mmol/L [facility]ORY Comment: Please note: ??Patients with WBC >100,00 0 may have falsely elevated Potassium levels. ??For accurate Potassium quantif ication in these patients send serum separator tube (gold top) for subsequent determinations. ??Contact the Clinical Chemistry Laboratory if there are any qu estions. Chloride 100 98 - 107 mmol/L [facility] LABORATORY CO2 28 22 - 31 mmol/L [facility] Anion Gap 13 5 - 15 mmol/L [facility] LABOR[facility]ORY Calcium 8.6 8.5 - 10.5 mg/dL [facility] Total Protein 6.8 6.1 - 8.0 g/dL [facility] Albumin 3.7 3.2 - 5.2 g/dL [facility] AST 11 0 - 30 unit/L [facility] ALT 8 0 - 30 unit/L [facility] Alk Phos 84 35 - 105 unit/L [facility] Total Bilirubin 0.3 0.2 - 1.3 mg/dL [facility]ORY Estimated GFR 102 >=60 mL/min/1.73 m?? [facility] LAB[facility]ATORY Comment: This patient? s estimated glomerular filtration rate (eGFR) is between 102 mL/min/1.73 m2 (patients with less muscl e mass) and 118 mL/min/1.73 m2 (patients with more muscle mass) [...] (Source) Location / / Volume Laterality Blood 09/03/2021 12:45 09/03/2021 AM EST 12:56 AM EST Resulting Agency Comment Spec In Lab Tameka Chu MD CHEMISTRY ORDERABLES Performing Organization Address City/State/Z[place] [address] (ABNORMAL) Magnesium (09/03/2021 12:45 AM EST) P athologist Signature Magnesium 1.16 (H) 0.69 - 1.07 [facility] mmol/L [facility]ORY Comment: result rechecked-doc Specimen Anatomical Collection Method Collection Time Receive d Time (Source) Location / / Volume Laterality Blood 09/03/2021 12:45 09/03/2021 AM EST 12:56 AM EST Resulting Agency Comment Spec In Lab Tameka Chu MD CHEMISTRY ORDERABLES Performing Organization Address City/[facility]/ZIP [place] [address] Potassium (09/02/2021 10:05 PM EST) athologist Signature Potassium 3.9 3.5 - 5.0 [facility] mmol/L [facility] LAB[facility]ORY Comment: Please note: ??Patients with WBC >100,00 0 may have falsely elevated Potassium levels. ??For accurate Potassium quantif ication in these patients send serum separator tube (gold top) for subsequent determinations. ??Contact the Clinical Chemistry Laboratory if there are any qu estions. Specimen Anatomical Collection Method Collection Time Receive d Time (Source) Location / / Volume Laterality Blood 09/02/2021 10:05 09/02/2021 PM EST 10:09 PM EST Resulting Agency Comment Spec In Lab Tameka Chu MD CHEMISTRY ORDERABLES Performing Organization Address City/[facility]/ZIP Code Phon e Number [address] Heparin (unfractionated) Level (09/02/2021 10:05 PM EST) athologist Signature Heparin UFH 0.72 IU/mL [facility] LABORATORY Comment: Heparin (anti-Xa) levels should be deter mined in a plasma sample that has been drawn 6 hours after a dose change to leslie roximate steady-state for continuous heparin infusions. Indication specific Heparin (anti-Xa) le vels based on order set selection: Acute DVT or PE treatment: 0.3 ? 0.7 IU/mL Thrombosis Prevention (eg. atrial fibril lation, sherif-procedural bridging, mechanical valves): 0.3 ? 0.7 IU/mL Acute Coronary Syndrome: 0.3 ? 0.7 IU/mL Stroke Indications: 0.3 ? 0.5 IU/mL Ultra-low intensity (select indications in cardiac surgery): 0.1 ? 0.3 IU/mL Specimen Anatomical Collection Method Collection Time Receive d Time (Source) Location / / Volume Laterality Blood 09/02/2021 10:05 09/02/2021 PM EST 10:09 PM EST Resulting Agency Comment Spec In Lab Jay Jay Gant MD HEMATOLOGY ORDERABLES Performing Organization Address City/State/Z[place] [address] POCT Glucose (09/02/2021 8:37 PM EST) P athologist Signature POC Glucose 104 65 - 199 [facility] mg/dL [facility] LAB[facility]ORY Comment: Supplemental ranges: <140 mg/dL before meals <180 mg/dL all other times of the day Specimen Anatomical Collection Method Collection Time Receive d Time (Source) Location / / Volume Laterality Blood 09/02/2021 8:37 PM 8:37 EST PM EST Tameka Chu MD POINT OF CARE TEST ORDERAB LES Performing Organization Address City/[facility]/Z[place] [address] (ABNORMAL) BLOOD GAS 2 ARTERIAL (09/02/2021 5:45 PM EST) Analysis Performed At Patho logist Time Signature pH Art 7.43 7.35 - [facility] 7.45 [facility] LABORATORY pCO2 Art 39 35 - 45 [facility] mmHg [facility] LABORATORY pO2 Art 89 85 - 104 [facility] LABORATORY HCO3 Art 24.9 20.0 - [facility] 26.0 [facility] mmol/L [facility] LAB[facility] BE Art 0.6 -3.0 - 3.0 [facility] mmol/L [facility] LABORATORY Hgb Blood Gas 10.0 (L) 11.7 - [facility] 15.5 g/dL [facility] LABORATORY O2HB Art 95.5 94.0 - [facility] 97.0 % [facility] LABORATORY COHB Art 0.4 % [facility] LABORATORY Comment: Nonsmokers: 0.5-1.5% COHB Smokers: Variable, but usually less than 10% Toxic: 20-30% COHB Lethal: Greater than 60% COHB METHB Art 0.7 <=1.5 % [facility] LABORATORY Na Whole Blood 137 135 - 145 mmol/L [facility] K Whole Blood 3.5 3.5 - 5.0 mmol/L [facility] LABORATORY Comment: Please note: Patients with WBC >100,000 may have falsely elevated Potassium levels. Contact the Clinical Chemistry L aboratory if there are any questions. ICa Whole Blood 1.03 (L) 1.15 - 1.33 mmol/L [facility] LABORATORY Comment: Note: ??Total bilirubin higher than 20 m g/dL may lead to falsely low ionized calcium. CL Whole Blood 103 98 - 107 mmol/L [facility] LABORATORY Gluc Whole Bld 117 65 - 199 mg/dL [facility] LABORATORY Comment: Diabetes: >=200 mg/dL plus symp toms. Lactate WB 1.2 0.5 - 2.2 mmol/L [facility] LABORATORY FIO2 Art 40 % [facility] LABORATORY PF Ratio Art [address] [facility] LAB[facility]ORY Specimen Anatomical Collection Method Collection Time Receive d Time (Source) Location / / Volume Laterality Blood 09/02/2021 5:45 PM 5:45 EST PM EST Tameka Chu MD CHEMISTRY ORDERABLES Performing Organization Address City/State/ZIP [place] [address] XR Chest One View (09/02/2021 5:45 PM EST) Anatomical Region Laterality Modality Chest N/A Digital Radiography Specimen (Source) Anatomical Location Collection Method / Collectio n Time Received Time / Laterality Volume Impressions 09/02/2021 7:28 PM EST Pulmonary vascular congestion. Corinna-Tavia catheter tip at the right main pulmonary artery. Radiopaque marker of IABP catheter at th e aortic knob. Thank you for letting us participate in the care of this patient. ??If you are a health care provider and have any questi ons regarding this report, please contact the number below. ??For patients who have questions please contact the health clinical care leader that requested your imaging first. ? Electronically signed by: Billie Juan MD , [facility] ([phone]), at 09/02/2021 7:28 PM Narrative 09/02/2021 7:28 PM EST EXAMINATION: XR CHEST ONE VIEW CLINICAL HISTORY: sob TECHNIQUE: 1 view of the chest COMPARISON: March 11, 2011 FINDINGS: Left internal jugular central venous she ath with Corinna-Tavia catheter at the right main pulmonary artery. IABP in place with radiopaque marker at the apical edge of the aortic knob. No mass. No consolidation. Bronchovascul ar haziness. Mild pulmonary vascular redistribution. No pleural effusion. No pneumothorax. Cardiac, mediastinal hilar contours are within normal limits. No ac [place] bony fractures. Procedure Note Billie Juan MD - 09/02/2021 EXAMINATION: XR CHEST ONE VIEW CLINICAL HISTORY: sob TECHNIQUE: 1 view of the chest COMPARISON: March 11, 2011 FINDINGS: Left internal jugular central venous she ath with Corinna-Tavia catheter at the right main pulmonary artery. IABP in place with radiopaque marker at the apical edge of the aortic knob. No mass. No consolidation. Bronchovascul ar haziness. Mild pulmonary vascular redistribution. No pleural effusion. No pneumothorax. Cardiac, mediastinal hilar contours are within normal limits. No ac [place] bony fractures. IMPRESSION Pulmonary vascular congestion. Corinna-Tavia catheter tip at the right main pulmonary artery. Radiopaque marker of IABP catheter at th e aortic knob. Thank you for letting us participate in the care of this patient. If you are a health care provider and have any questi ons regarding this report, please contact the number below. For patients w ho have questions please contact the health clinical care leader that requested your imaging first. Electronically signed by: Billie Juan MD , [facility] ([phone]), at 09/02/2021 7:28 PM Jay Jay Gant MD IMG DX ORDERABLES Type and Screen Validity (09/02/2021 5:40 PM EST) [facility] Method Time Signature T&S only valid [facility] LABORATORY Comment: This Type and Screen result is only valid at the [facility] Hospital Specimen Anatomical Collection Method Collection Time Receive d Time (Source) Location / / Volume Laterality Blood 09/02/2021 5:40 PM 6:36 EST PM EST Resulting Agency Comment Spec In Lab Mirza Robbins DO BLOOD BANK ORDERABLES Performing Organization Address City/[facility]/ZIP Code Phon e Number [address] Scan, Peripheral Blood (09/02/2021 5:40 PM EST) [facility] Signature Plat Estimate Increased [facility] LABORATORY RBC Morphology Abnormal [facility]ORATORY Microcytes 1-5 /HPF [facility] LABORATORY Specimen Anatomical Collection Method Collection Time Receive d Time (Source) Location / / Volume Laterality Blood 09/02/2021 5:40 PM 6:29 EST PM EST Resulting Agency Comment Spec In Lab Yumi aGrcia MD HEMATOLOGY ORDERABLES Performing Organization Address City/[facility]/ZIP Code Phon e Number [address] ABORH Recheck Status (09/02/2021 5:40 PM EST) [facility] Method [place] Signature ABORH Recheck Order Placed [facility] LABORATORY ABORH Type Complete [facility] LABORATORY Specimen Anatomical Collection Method Collection Time Receive d Time (Source) Location / / Volume Laterality Blood 09/02/2021 5:40 PM 6:36 EST PM EST Resulting Agency Comment Spec In Lab Mirza Robbins DO BLOOD BANK ORDERABLES Performing Organization Address City/[facility]/ZIP [place] [address] Blue Tube HOLD (09/02/2021 5:40 PM EST) athologist Signature Blue Hold Sample in [facility]. [facility] LABORATORY Specimen Anatomical Collection Method Collection Time Receive d Time (Source) Location / / Volume Laterality Blood Venous Draw / 09/02/2021 5:40 PM 09/02/20 21 6:29 Unknown EST PM EST Yumi Garcia MD HEMATOLOGY ORDERABLES Performing Organization Address City/[facility]/ZIP [place] [address] Antibody screen (09/02/2021 5:40 PM EST) [facility] Method Time Signature Ab Screen Negative [facility] LABORATORY Expires at 09/05/2021 [facility] [id number] on: [facility] LABOR[facility]ORY Specimen Anatomical Collection Method Collection Time Receive d Time (Source) Location / / Volume Laterality Blood 09/02/2021 5:40 PM 1 6:36 EST PM EST Resulting Agency Comment Spec In Lab Obnishi Saavedrai DO BLOOD BANK ORDERABLES Performing Organization Address City/[facility]/ZIP [place] [address] ABO/Rh Typing (09/02/2021 5:40 PM EST) P athologist Signature ABORh Type O Pos [facility] LABORATORY Specimen Anatomical Collection Method Collection Time Receive d Time (Source) Location / / Volume Laterality Blood 09/02/2021 5:40 PM 1 6:36 EST PM EST Resulting Agency Comment Spec In Lab Obaida Dairi DO BLOOD BANK ORDERABLES Performing Organization Address City/[facility] [place] [address] (ABNORMAL) Magnesium (09/02/2021 5:40 PM EST) P athologist Signature Magnesium 0.65 (L) 0.69 - 1.07 [facility] mmol/L [facility] LABOR[facility]ORY Specimen Anatomical Collection Method Collection Time Receive d Time (Source) Location / / Volume Laterality Blood 09/02/2021 5:40 PM 1 6:28 EST PM EST Resulting Agency Comment Spec In Lab Tameka Chu MD CHEMISTRY ORDERABLES Performing Organization Address City/State/ZIP [place] [address] (ABNORMAL) BMP w/fasting Glucose (09/02/2021 5:40 PM EST) P athologist Signature Glucose 117 (H) 65 - 99 [facility] Fasting mg/dL [facility] Comment: ?Fasting* Glucose Interpretive C [...] of Diabetes Mellitus, Position Statement from the [place] [employer]. ??Diabete s Care, Volume 33, Supplement 1, Oct 2009 BUN 12 8 - 18 mg/dL [facility] Creatinine 0.63 (L) 0.70 - 1.20 mg/dL [facility] LABORATORY Sodium 140 135 - 145 mmol/L [facility] Potassium 3.9 3.5 - 5.0 mmol/L [facility] Comment: Please note: ??Patients with WBC >100,00 0 may have falsely elevated Potassium levels. ??For accurate Potassium quantif ication in these patients send serum separator tube (gold top) for subsequent determinations. ??Contact the Clinical Chemistry Laboratory if there are any qu estions. Chloride 102 98 - 107 mmol/L [facility] CO2 26 22 - 31 mmol/L [facility] Anion Gap 12 5 - 15 mmol/L [facility]ORY Calcium 8.5 8.5 - 10.5 mg/dL [facility] Estimated GFR 108 >=60 mL/min/1.73 m?? [facility] Comment: This patient? s estimated glomerular filtration rate (eGFR) is between 108 mL/min/1.73 m2 (patients with less muscl e mass) and 125 mL/min/1.73 m2 (patients with more muscle mass) [...] (Source) Location / / Volume Laterality Blood 09/02/2021 5:40 PM 6:28 EST PM EST Resulting Agency Comment Spec In Lab Tameka Chu MD CHEMISTRY ORDERABLES Performing Organization Address City/State/ZIP Code Phon e Number [address] Vitamin B12 (09/02/2021 5:40 PM EST) athologist Signature Vitamin B-12 747 232 - 1,245 [facility] pg/mL [facility]OR[facility]ORY Specimen Anatomical Collection Method Collection Time Receive d Time (Source) Location / / Volume Laterality Blood 09/02/2021 5:40 PM 6:29 EST PM EST Resulting Agency Comment Spec In Lab Yumi Garcia MD CHEMISTRY ORDERABLES Performing Organization Address City/State/ZIP Code Phon e Number [address] TSH (09/02/2021 5:40 PM EST) athologist Signature TSH 2.32 0.27 - 4.20 [facility] mcIU/mL [facility] Comment: Reference Interval (mcIU/mL): Females: ??First Trimester: 0.23-3.88 ??Second Trimester: 0.22-3.90 ??Third Trimester: 0.44-4.66 Specimen Anatomical Collection Method Collection Time Receive d Time (Source) Location / / Volume Laterality Blood 09/02/2021 5:40 PM 1 6:28 EST PM EST Resulting Agency Comment Spec In Lab Yumi Garcia MD CHEMISTRY ORDERABLES Performing Organization Address City/[facility]/ZIP [facility] [place] [address] (ABNORMAL) Iron and TIBC (09/02/2021 5:40 PM EST) athologist Signature Iron 33 30 - 150 [facility] mcg/dL [facility] TIBC 311 250 - 450 [facility] Iron Saturation 11 (L) 20 - 50 % [facility] Specimen Anatomical Collection Method Collection Time Receive d Time (Source) Location / / Volume Laterality Blood 09/02/2021 5:40 PM 1 6:28 EST PM EST Resulting Agency Comment Spec In Lab Yumi Garcia MD CHEMISTRY ORDERABLES Performing Organization Address City/[facility] [place] [address] (ABNORMAL) Ferritin (09/02/2021 5:40 PM EST) athologist [facility] Ferritin 207 (H) 15 - 150 [facility] ng/mL [facility] Comment: Pediatric reference ranges not verified at [facility], interpret with caution. Reference ranges for females greater chris n 50 years of age approach values for men, i.e., 30-400 ng/mL. Specimen Anatomical Collection Method Collection Time Receive d Time (Source) Location / / Volume Laterality Blood 09/02/2021 5:40 PM 1 6:29 EST PM EST Resulting Agency Comment Spec In Lab Yumi Garcia MD CHEMISTRY ORDERABLES Performing Organization Address City/[facility]/ZIP [facility] [place] [address] (ABNORMAL) Comprehensive metabolic panel (non-fasting) (09/02/2021 5:40 PM EST) athologist Signature Glucose Lvl 117 65 - 199 [facility] mg/dL [facility] Comment: Diabetes: >=200 mg/dL plus symp toms BUN 12 8 - 18 mg/dL [facility] Creatinine 0.63 (L) 0.70 - 1.20 mg/dL [facility] Sodium 140 135 - 145 mmol/L [facility] Potassium 3.9 3.5 - 5.0 mmol/L [facility] Comment: Please note: ??Patients with WBC >100,00 0 may have falsely elevated Potassium levels. ??For accurate Potassium quantif ication in these patients send serum separator tube (gold top) for subsequent determinations. ??Contact the Clinical Chemistry Laboratory if there are any qu estions. Chloride 102 98 - 107 mmol/L [facility] CO2 26 22 - 31 mmol/L [facility] Anion Gap 12 5 - 15 mmol/L [facility] Calcium 8.5 8.5 - 10.5 mg/dL [facility] Total Protein 6.6 6.1 - 8.0 g/dL [facility] Albumin 3.7 3.2 - 5.2 g/dL [facility] AST 12 0 - 30 unit/L [facility] ALT 12 0 - 30 unit/L [facility] Alk Phos 82 35 - 105 unit/L [facility] Total Bilirubin 0.2 0.2 - 1.3 mg/dL [facility] Estimated GFR 108 >=60 mL/min/1.73 m?? [facility] Comment: This patient? s estimated glomerular filtration rate (eGFR) is between 108 mL/min/1.73 m2 (patients with less muscl e mass) and 125 mL/min/1.73 m2 (patients with more muscle mass) as dete rmined by the CKD-EPI equation. Assessment of eGFR is not appropriate wh en creatinine concentrations are rapidly changing. For clinical decisions where creatinine clearance will affect therapy, a 24-hour urine creatinine rodirgo gabriel may be advised. Assignment of CKD stage 1 - 5 for patien ts with an eGFR near the transition point between stages may be based on cli nical assessment of muscle mass and symptoms in addition to eGFR. Specimen Anatomical Collection Method Collection Time Receive d Time (Source) Location / / Volume Laterality Blood 09/02/2021 5:40 PM 6:28 EST PM EST Resulting Agency Comment Spec In Lab Yumi Garcia MD CHEMISTRY ORDERABLES Performing Organization Address City/State/ZIP [place] [address] (ABNORMAL) Hemogram (09/02/2021 5:40 PM EST) Analysis Performed At Patho logist Time Signature WBC 11.6 (H) 4.0 - 9.5 [facility] LABORATORY RBC 3.98 (L) 4.00 - [facility] 5.21 [facility] x10(6)/[facility] LABORATORY Hemoglobin 9.3 (L) 11.7 - [facility] JOSE DAVID 15.5 g/dL [facility] LABORATORY Hematocrit 29.7 (L) 35.7 - [facility] 45.8 % [facility] LABORATORY MCV 74.6 (L) 82.6 - [facility] 94.4 [facility] LABORATORY MCH 23.4 (L) 27.1 - [facility] 32.0 pg [facility] LABORATORY MCHC 31.3 (L) 31.7 - [facility] DAV[facility] 35.0 g/dL [facility] LABORATORY Platelets 428 (H) 145 - 357 [facility] x10(3)/[facility] LABORATORY RDWSD 53.4 (H) 37.0 - [facility] 46.0 [facility] LABORATORY RDWCV 20.1 (H) 11.5 - [facility] 14.1 % [facility] LABORATORY MPV 9.3 7.6 - 12.9 [facility] LABORATORY nRBC % Auto 0.0 % [facility] LABORATORY nRBC Abs Auto 0.000 0.000 - [facility] 0.000 [facility] x10(3)/[facility] LABORATORY Specimen Anatomical Collection Method Collection Time Receive d Time (Source) Location / / Volume Laterality Blood 09/02/2021 5:40 PM 6:29 EST PM EST Resulting Agency Comment Spec In Lab Yumi Garcia MD HEMATOLOGY ORDERABLES Performing Organization Address City/State/ZIP [place] [address] EKG 12 Lead (09/02/2021 5:26 PM EST) Component Value Ref Range Test Analysis Performed Pathologis t Method Time At Signature Ventricular rate 98 BPM MUSE SYSTEM Atrial Rate 98 BPM MUSE SYSTEM P-R Interval 134 ms MUSE SYSTEM QRS Duration 94 ms MUSE SYSTEM Q-T Interval 390 ms MUSE SYSTEM QTC Calculated 497 ms MUSE SYSTEM (Bezet) Calculated P [place] 19 degrees MUSE SYSTEM Calculated R [place] 63 degrees MUSE SYSTEM Calculated T [place] 78 degrees MUSE SYSTEM INTERPRETATION Normal sinus rhythm MUSE SYSTEM Anterolateral infarct (cited on or before 02-SEP-2021) vs le ad placement Abnormal ECG When compared with ECG of 02-SEP-2021 15:33, (unconfirmed) No significant change was found Confirmed by Beronica Galvez ([id number]) on 09/03/2021 7:36:29 A M Specimen Anatomical Collection Method Collection Time Receive d Time (Source) Location / / Volume Laterality 09/02/2021 5:26 PM 7:36 EST AM EST Tameka Chu MD ECG ORDERABLES Performing Organization Address City/State/ZIP Code Phon e Number MUSE SYSTEM CARDIAC CATHETERIZATION (09/02/2021 5:06 PM EST) Anatomical Region Laterality Modality Other Specimen (Source) Anatomical Location Collection Method / Collectio n Time Received Time / Laterality Volume Narrative 09/02/2021 11:24 PM EST ?[facility] ? Cardiac Cathete rization/Intervention Report ? Patient Name: Sho, Aracelis ? Procedure Date: 09/02/2021 ? A #: [id number] ? Primary Physician: Rafi Barrett ? Case #: [id number] ? File Name: [id number] ? Catheterization Order Number: [id number] ? [facility] ? Final Report [place], [place] ? Patient Name: ? Aracelis Sho ? ID#: ?[id number] ? : ?1975 ? Procedure Date: ? September 02 ? Case #: ? [id number] ? Room: ? 5 ? Case Physician: ? Rafi Barrett M.D. ?Start: ?15:09 ?Fellow: ? Severiano Howard M.D. ?Admission: ??09/02/2021 ? Referring Physician: ??Valentin Parekh M.D. ? Procedures: ?* Coronary Angiography ?* Left Heart Catheterization ?* Insertion Of Flow Directed Ca theter ?* Oximetry ?* Intra-Aortic Balloon Pump (IA BP) Insertion ? History ?Aracelis Monique is a 46 year old wom an. She has hypertension. The patient's ?smoking status is Current with Current - Every Day frequency, using ?cigarettes. Cigarette use is He liban (>=10/day). She has ?hypercholesterolemia. The patie nt has insulin dependent diabetes ?mellitus. She is status post an acute non-ST elevation myocardial ?infarction. The patient has a h istory of pulmonary hypertension. She also ?has a history of chronic obstru ctive pulmonary disease. Prior to the ?initiation of this procedure, t he patient was designated as ASA Class ?III. The CSHA clinical frailty scale is 3: Managing Well. ? Diagnostic Tests: ?Prior Coronary Angiography: ? LV ejection fraction wit hin 6 months is 60%. ?Electrocardiography: ? EKG was assessed by ECG. EKG was Abnormal. EKG showed T-wave ? inversions. ?Medications Prior to Procedure: ? Aspirin, Beta Jerri an d Statin. ? Indications for Diagnostic Cath: ?The priority of the diagnostic procedure was Urgent. 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 Chest pain ?symptom assessment was: Typical Angina. Ventricular support was supplied ?with mechanical support with In tra-aortic balloon pump (IABP) Inserted ?during procedure and prior to i ntervention. ? Technique: ?A 6 SLFr sheath was inserted in the right radial artery utilizing the ?Seldinger technique. The left c oronary artery was injected utilizing a ?5Fr CODY RADIAL catheter. A 5F r CODY RADIAL catheter was used to inject ?the right coronary artery. Left ventricular pressure was performed ?utilizing a 5Fr CODY RADIAL ca theter. 5,000 units of heparin were ?administered. A total of 100cc of Omnipaque were opened and 100cc of ?Omnipaque were administered. Ra diation: Fluoro time was 10.3 minutes, ?dose area product was 10,083 mG Ycm2 and air kerma was 1,345 mGY. See the ?case log for additional details . ?The patient received the follow ing medications prior to and during the ?procedure: ? Unfractionated Heparin. ? Hemodynamics: ?Right Heart Pressures ? Resting: ? Syst D iast ? EDP ?a ?v ? m ?RA ? 7 ?5 ? 4 ?RV 35 ?8 ?PA 35 ? 7 ?20 ?PCW ?13 ?14 ?10 ? Hemodynamic Profile: ?Profile 1 ?CO ? 5.46 ?CI ? 2.90 ?TSR ?952 ?SVR ?894 ?TPR ?293 ?PVR ?147 ?Left Heart Pressures ? Resting: ? Syst D iast ? EDP ?a ?v ? m ?Ao 82 ?54 ?65 ?LV 82 ?38 ? Oximetry: ?Location ? % Sat ?Location ?%Sat ?Main Pulmonary Artery ??65.0 ? Coronary Angiography: ?Dominance: Right ?Left Main ? There was mild diffuse ( <=25% stenosis) disease of the entire vessel ? segment of the left main artery. ?Left Anterior Descending ? There was mild diffuse ( <=25% stenosis) disease of the entire vessel ? segment of the left ante rior descending artery (LAD). ??The LAD was ? large. ??The mid segment of the LAD had a long segmental 70% ? stenosis. ??This lesion involved bifurcation. ?Left Circumflex ?Right Coronary Artery ? There was a 70% eccentri c and ulcerated long segmental stenosis of ? the proximal segment of the right coronary artery (RCA). ??The RCA ? was large. ??Distal flow was normal and was via the [place] vessel. ? The mid segment of the R CA had an eccentric and ulcerated single ? discrete 90% stenosis. ? Indication for Selected Procedures: ?An intraaortic balloon pump was inserted for Congestive Heart Failure. ? Vascular Access: ?Vascular Access Management: ? Mechanical Compression o f the right radial artery access site was ? performed. ? Conclusions: ?* Two vessel coronary artery di sease (LAD and RCA) ?* Mild pulmonary hypertension ?* Elevated left ventricular end diastolic pressure ? Complications/Events: ?The patient had no complication s during these procedures. ?The attending physician was presen t for the entire procedure. ?Dr. Rafi Barrett M.D. was pres ent during the moderate sedation ?intraservice time as documented by the sedation nurse. ??Case time = 01:37. ?Dr. Rafi Barrett M.D. performe d the left heart catheterization, ?coronary angiography, Corinna (flow d irected cath) insertion, IABP insertion ?in tree tapping laborer and oximetry. ? Rafi A Raelson, M.D. ? Report Finalized: 09/02/2021 ??23:17 ? Report Last Ammended: 09/14/2021 ??11:53 ? Procedure Note Rafi Barrett MD - 09/14/2021Formatt ing of this note might be different from the original. [facility] Cardiac Catheterization/Intervention Re port Patient Name: Sho December Procedure Date: 09/02/2021 A #: [id number] Primary Physician: Rafi Barrett Case #: [id number] File Name: [id number] Catheterization Order Number: [id number] [facility] Final Report [place], [place] Patient Name: Aracelis Monique ID#: [id number] : 1975 Procedure Date: September 02, 2021 Case #: [id number] Room: 5 Case Physician: Rafi Barrett M.D. art: 15:09 Fellow: Severiano Howard M.D. Admission : 09/02/2021 Referring Physician: Charles Meng Procedures: * Coronary Angiography * Left Heart Catheterization * Insertion Of Flow Directed Catheter * Oximetry * Intra-Aortic Balloon Pump (IABP) Inse rtion History Aracelis Monique is a 46 year old woman. She has hypertension. The patient's smoking status is Current with Current - Every Day frequency, using cigarettes. Cigarette use is Heavy (>=1 0/day). She has hypercholesterolemia. The patient has i nsulin dependent diabetes mellitus. She is status post an acute n on-ST elevation myocardial infarction. The patient has a history o f pulmonary hypertension. She also has a history of chronic obstructive pu lmonary disease. Prior to the initiation of this procedure, the patie nt was designated as ASA Class III. The [facility] clinical frailty scale is 3: Managing Well. Diagnostic Tests: Prior Coronary Angiography: LV ejection fraction within 6 months is 60%. Electrocardiography: EKG was assessed by ECG. EKG was Abnorm al. EKG showed T-wave inversions. Medications Prior to Procedure: Aspirin, Beta Jerri and Statin. Indications for Diagnostic Cath: The priority of the diagnostic procedur e was Urgent. The indication for the tree tapping laborer visit is ACS less than or equal to 24 hrs. Chest pain symptom assessment was: Typical Angina. Ventricular support was supplied with mechanical support with Intra-aort ic balloon pump (IABP) Inserted during procedure and prior to intervent ion. Technique: A 6 SLFr sheath was inserted in the rig ht radial artery utilizing the Seldinger technique. The left coronary artery was injected utilizing a 5Fr CODY RADIAL catheter. A 5Fr CODY RADIAL catheter was used to inject the right coronary artery. Left ventric ular pressure was performed utilizing a 5Fr CODY RADIAL catheter. 5,000 units of heparin were administered. A total of 100cc of Omnip aque were opened and 100cc of Omnipaque were administered. Radiation: Fluoro time was 10.3 minutes, dose area product was 10,083 mGYcm2 and air kerma was 1,345 mGY. See the case log for additional details. The patient received the following medi cations prior to and during the procedure: Unfractionated Heparin. Hemodynamics: Right Heart Pressures Resting: Syst Diast EDP a v m RA 7 5 4 RV 35 8 PA 35 7 20 PCW 13 14 10 Hemodynamic Profile: Profile 1 CO 5.46 CI 2.90 TSR 952 SVR 894 TPR 293 PVR 147 Left Heart Pressures Resting: Syst Diast EDP a v m Ao 82 54 65 LV 82 38 Oximetry: Location %Sat Location %Sat Main Pulmonary Artery 65.0 Coronary Angiography: Dominance: Right Left Main There was mild diffuse (<=25% stenosis) disease of the entire vessel segment of the left main artery. Left Anterior Descending There was mild diffuse (<=25% stenosis) disease of the entire vessel segment of the left anterior descending artery (LAD). The LAD was large. The mid segment of the LAD had a long segmental 70% stenosis. This lesion involved bifurcat ion. Left Circumflex Right Coronary Artery There was a 70% eccentric and ulcerated long segmental stenosis of the proximal segment of the right coron tima artery (RCA). The RCA was large. Distal flow was normal and w as via the [place] vessel. The mid segment of the RCA had an eccen tric and ulcerated single discrete 90% stenosis. Indication for Selected Procedures: An intraaortic balloon pump was inserte d for Congestive Heart Failure. Vascular Access: Vascular Access Management: Mechanical Compression of the right rad ial artery access site was performed. Conclusions: * Two vessel coronary artery disease (L AD and RCA) * Mild pulmonary hypertension * Elevated left ventricular end diastol ic pressure Complications/Events: The patient had no complications during these procedures. The attending physician was present for the entire procedure. Dr. Rafi Barrett M.D. was present d uring the moderate sedation intraservice time as documented by the sedation nurse. Case time = 01:37. Dr. Rafi Barrett M.D. performed the left heart catheterization, coronary angiography, Corinna (flow direct ed cath) insertion, IABP insertion in tree tapping laborer and oximetry. Rafi Barrett M.D. Report Finalized: 09/02/2021 23:17 Report Last Ammended: 09/14/2021 11:53 Rafi Barrett MD CARDIAC CATH ORDERABLES EKG 12 Lead (09/02/2021 3:33 PM EST) Component Value Ref Range Test Analysis Performed Pathologis t Method Time At Signature Ventricular rate 105 BPM MUSE SYSTEM Atrial Rate 105 BPM MUSE SYSTEM P-R Interval 126 ms MUSE SYSTEM QRS Duration 86 ms MUSE SYSTEM Q-T Interval 354 ms MUSE SYSTEM QTC Calculated 467 ms MUSE SYSTEM (Bezet) Calculated P [place] 40 degrees MUSE SYSTEM Calculated R [place] 35 degrees MUSE SYSTEM Calculated T [place] 68 degrees MUSE SYSTEM INTERPRETATION Sinus tachycardia MUSE SY STEM Anterior infarct , age undetermined ??vs lead placement Abnormal ECG No previous ECGs available Confirmed by Beronica Galvez ([email or web address]) on 09/03/2021 7:36:10 A M Specimen Anatomical Collection Method Collection Time Receive d Time (Source) Location / / Volume Laterality 09/02/2021 3:33 PM 7:36 EST AM EST Tameka Chu MD ECG ORDERABLES Performing Organization Address City/State/ZIP Code Phon e Number MUSE SYSTEM (ABNORMAL) Troponin (09/02/2021 1:30 PM EST) P athologist Signature Troponin-T 0.03 (H) 0.00 - [facility] 0.00 ng/mL [facility] LABORATORY Comment: The 99th percentile for Troponin T is le ss than 0.01 ng/mL, any detectable cTnT concentration using this assay should be considered elevated. According to the third universal definit ion of myocardial infarction the following criteria with a clinical prese ntation consistent with acute myocardial ischemia meets the diagnosis for a myocardial infarction (CT). Detection of a rise and/or fall of cTnT, with at least one value greater than the 99th percentile (> or = 0.01) and wi th at least one of the following ?? Symptoms of ischemia ?? New or presumed new significant ST-se gment-T wave (ST-T) changes or new left bundle branch block (LBBB) ?? Development of pathologic Q waves in the ECG ?? Imaging evidence of new loss of viabl e myocardium or new regional wall motion abnormality ?? Identification of an intracoronary th rombus by angiography or autopsy Samples for cTnT testing should be obtai aruna serially upon first assessment and again 3 to 6 hours later. If the clinica l suspicion is high and previous samples have been negative an additional sample may be indicated. Reference: Third [place] Definition of Myocardial Infarction. Journal of the [place] [employer] 2012;60:1581-98 Specimen Anatomical Collection Method Collection Time Receive d Time (Source) Location / / Volume Laterality Blood 09/02/2021 1:30 PM 1 1:42 EST PM EST Resulting Agency Comment Spec In Lab Jay Jay Gant MD CHEMISTRY ORDERABLES Performing Organization Address City/State/ZIP [place] [address] (ABNORMAL) Differential, Automated (09/02/2021 1:30 PM EST) Patholo gist Method Time Signature Neutrophils % 52.4 % [facility] LABORATORY Neutr Abs (ANC) 5.54 1.70 - [facility] 6.10 [facility] x10(3)/[facility] LABORATORY Lymphocytes % 31.2 % [facility]OR[facility]ORY Lymphocytes Abs 3.3 (H) 0.9 - 3.2 [facility] x10(3)/[facility] LABORATORY Monocytes % 7.4 % [facility]OR[facility]ORY Monocyte Abs 0.8 0.3 - 0.9 [facility] x10(3)/[facility] LABORATORY Eosinophils % 8.0 % [facility]ORY Eosinophils Abs 0.8 (H) 0.0 - 0.4 [facility] x10(3)/[facility] LABORATORY Basophils % 0.6 % [facility]OR[facility]ORY Basophils Abs 0.1 0.0 - 0.1 [facility] x10(3)/[facility] LABORATORY Immature Gran % 0.40 % [facility]OR[facility]ORY Comment: Immature granulocytes(IG's)percentage an d absolute count will include metamyelocytes, myelocytes, and promyelo cytes. Blood smears from CBCs yielding IG's will be scanned manually for concor dance. If this scan disagrees with the automated IG or if promyelocytes are not ed, a manual differential will be performed. Anaya Gran Abs 0.04 0.00 - 0.04 x10(3)/[facility] LABORATORY Specimen Anatomical Collection Method Collection Time Receive d Time (Source) Location / / Volume Laterality Blood 09/02/2021 1:30 PM 1:42 EST PM EST Resulting Agency Comment Spec In Lab Obaida Rosedno DO HEMATOLOGY ORDERABLES Performing Organization Address City/State/ZIP [place] [address] (ABNORMAL) Hemogram (09/02/2021 1:30 PM EST) Analysis Performed At Patho logist Time Signature WBC 10.6 (H) 4.0 - 9.5 [facility] x10(3)/[facility] LABORATORY RBC 3.90 (L) 4.00 - [facility] 5.21 [facility] x10(6)/[facility] LABORATORY Hemoglobin 8.9 (L) 11.7 - [facility] 15.5 g/dL [facility] LABORATORY Hematocrit 29.3 (L) 35.7 - [facility] 45.8 % [facility] LABORATORY MCV 75.1 (L) 82.6 - [facility] 94.4 [facility] LABORATORY MCH 22.8 (L) 27.1 - [facility] 32.0 pg [facility] LABORATORY MCHC 30.4 (L) 31.7 - [facility] 35.0 g/dL [facility] LABORATORY Platelets 419 (H) 145 - 357 [facility] x10(3)/[facility] LABORATORY RDWSD 54.2 (H) 37.0 - [facility] 46.0 [facility] LABORATORY RDWCV 20.0 (H) 11.5 - [place] 14.1 % [facility] LABORATORY MPV 9.2 7.6 - 12.9 [facility] LABORATORY nRBC % Auto 0.0 % [facility] LABORATORY nRBC Abs Auto 0.000 0.000 - [facility] 0.000 [facility] x10(3)/[facility] LABORATORY Specimen Anatomical Collection Method Collection Time Receive d Time (Source) Location / / Volume Laterality Blood 09/02/2021 1:30 PM 1:42 EST PM EST Resulting Agency Comment Spec In Lab Obaida Quentini DO HEMATOLOGY ORDERABLES Performing Organization Address City/State/ZIP [place] [address] (ABNORMAL) Hemoglobin A1c (09/02/2021 1:30 PM EST) Analysis Performed At Patho logist Time Signature Hemoglobin A1C 6.8 (H) 4.3 - 5.6 [facility] LABORATORY [...] Mellitus, Diabetes Care 2013; 36: Suppl. 1, S60-09 Est Avg Gluc 149 mg/dL [facility] LABORATORY Comment: eAG equivalents for HbA1c percentages: HbA1c(%) ?eAG(mg/dL) 6.0 ?126 6.5 ?140 7.0 ?154 7.5 ?169 8.0 ?183 8.5 ?197 9.0 ?212 9.5 ?226 10.0 ? 240 Limitations: The eAG calculation has not been validated on women, individuals below 18 years old and above 70 years old, and individuals with hemoglobinopathies. Additional resources are available on [facility] ADA website. Arnel TSE, Louis J, Anthony R, et al. ??Tr anslating the A1C assay into estimated average glucose values. ??Diabetes Care 2008:31(8):5228-9923. Specimen Anatomical Collection Method Collection Time Receive d Time (Source) Location / / Volume Laterality Blood 09/02/2021 1:30 PM 1:42 EST PM EST Resulting Agency Comment Spec In Lab Jay Jay Gant MD CHEMISTRY ORDERABLES Performing Organization Address City/State/ZIP [place] [address] Lipid Panel (Reflex Direct LDL) (09/02/2021 1:30 PM EST) athologist Signature Chol, Total 139 mg/dL [facility] Comment: Lower Risk: <200 mg/dL Average Risk: 200-239 mg/dL Higher Risk: >wh=781 mg/dL Triglycerides 178 mg/dL [facility] LABORATORY Comment: Average Risk/Lower Risk: <150 mg/dL Borderline High Risk: 150-199 mg/dL High Risk: 200-499 mg/dL Very High Risk: >uf=362 mg/dL HDL 24 mg/dL [facility] LABORATORY Comment: Males: ?? Higher Risk: <40 mg/dL Females: ?? Higher Risk: <50 mg/dL LDL Cholesterol 79 mg/dL [facility] Comment: Lowest Risk: <100 mg/dL Lower Risk: 100-129 mg/dL Borderline High Risk: 130-159 mg/dL High Risk: 160-189 mg/dL Very High Risk: >fe=268 mg/dL Chol/HDL Ratio 5.8 ratio [facility]ORY Lipid Interpretation See Note [facility] LABORATORY Comment: Lipid management should be guided by a p atient? s ASCVD risk, goals and preferences. ACC/AHA Guidelines recommend high intens ity statin if clinical ASCVD or LDL greater than or equal to 190 mg/dL. [email or web address] Adults aged 40-75 with LDL 70-189 mg/dL should have their 10 year ASCVD risk estimated with the ACC/AHA ASCVD risk es timator http://tools.acc.org/ZWGPZ-Wimz-Tnxydeko r/ Statin should be discussed if risk great er than or equal to 7.5% in non-diabetics. With diabetes, moderate i ntensity statin is recommended if risk less than 7.5%, high intensity if risk g reater than or equal to 7.5%. Annual lipid monitoring on statins is no t necessary. Evaluate secondary causes of Triglycerid es greater than 500 mg/dL or LDL greater than 190 mg/dL: See table 6 of A CC/AHA Guideline. Lifestyle modification is a critical com ponent of ASCVD risk reduction. Specimen Anatomical Collection Method Collection Time Receive d Time (Source) Location / / Volume Laterality Blood 09/02/2021 1:30 PM 1:42 EST PM EST Resulting Agency Comment Spec In Lab Jay Jay Gant MD CHEMISTRY ORDERABLES Performing Organization Address City/State/ZIP [place] [address] (ABNORMAL) APTT (09/02/2021 1:30 PM EST) athologist Signature PTT 38 (H) 25 - 37 sec [facility] Comment: The PTT is NOT appropriate for heparin m onitoring. Use the Anti-Xa level for heparin monitoring (HEP UFH) or LMWH mon itoring (HEP LMW). A PTT less than 37 seconds generally indicates adequate hem ostasis. Specimen Anatomical Collection Method Collection Time Receive d Time (Source) Location / / Volume Laterality Blood 09/02/2021 1:30 PM 1 1:42 EST PM EST Resulting Agency Comment Spec In Lab Jay Jay Gant MD HEMATOLOGY ORDERABLES Performing Organization Address City/[facility]/ZIP [place] [address] Prothrombin Time (09/02/2021 1:30 PM EST) P athologist Signature PT 11.9 9.4 - 12.5 [facility] LABORATORY INR 1.0 [facility] LABOR[facility]ORY Comment: An INR <2.0 [...] (Source) Location / / Volume Laterality Blood 09/02/2021 1:30 PM 1 1:42 EST PM EST Resulting Agency Comment Spec In Lab Jay Jay Gant MD HEMATOLOGY ORDERABLES Performing Organization Address City/[facility]/ZIP [place] [address] (ABNORMAL) Hepatic Function Panel (09/02/2021 1:30 PM EST) Analysis Performed At Patho logist Time Signature Total Protein 6.5 6.1 - 8.0 [facility] LABORATORY Albumin 3.6 3.2 - 5.2 [facility] g/dL [facility] LABORATORY AST 12 0 - 30 [facility] unit/L [facility] LABORATORY ALT 11 0 - 30 [facility] unit/L [facility] LABORATORY Alk Phos 82 35 - 105 [place] unit/L [facility] LABORATORY Total <0.2 (L) 0.2 - 1.3 [facility] Bilirubin mg/dL [facility] LABORATORY Bili, Direct 0.1 0.0 - 0.3 [place] mg/dL [facility] LABORATORY Specimen Anatomical Collection Method Collection Time Receive d Time (Source) Location / / Volume Laterality Blood 09/02/2021 1:30 PM 1 1:42 EST PM EST Resulting Agency Comment Spec In Lab Jay Jay Gant MD CHEMISTRY ORDERABLES Performing Organization Address City/[facility]/ZIP Code Phon e Number [address] (ABNORMAL) pro-Brain Natriuretic Peptide (09/02/2021 1:30 PM EST) P athologist Signature ProBNP 1,583 (H) <=124 [facility] pg/mL [facility] LABORATORY Specimen Anatomical Collection Method Collection Time Receive d Time (Source) Location / / Volume Laterality Blood 09/02/2021 1:30 PM 1 1:42 EST PM EST Resulting Agency Comment Spec In Lab Jay Jay Gant MD CHEMISTRY ORDERABLES Performing Organization Address City/[facility]/ZIP Code Phon e Number [address] Phosphorus (09/02/2021 1:30 PM EST) P athologist Signature Phosphorus 3.3 2.5 - 4.5 [facility] mg/dL [facility] LABORATORY Specimen Anatomical Collection Method Collection Time Receive d Time (Source) Location / / Volume Laterality Blood 09/02/2021 1:30 PM 1 1:42 EST PM EST Resulting Agency Comment Spec In Lab Jay Jay Gant MD CHEMISTRY ORDERABLES Performing Organization Address City/[facility]/ZIP Code Phon e Number [address] Magnesium (09/02/2021 1:30 PM EST) P athologist Signature Magnesium 0.69 0.69 - 1.07 [facility] mmol/L [facility] LABORATORY Specimen Anatomical Collection Method Collection Time Receive d Time (Source) Location / / Volume Laterality Blood 09/02/2021 1:30 PM 1:42 EST PM EST Resulting Agency Comment Spec In Lab Jay Jay Gant MD CHEMISTRY ORDERABLES Performing Organization Address City/State/ZIP [place] [address] (ABNORMAL) Basic Metabolic Panel (non-fasting) (09/02/2021 1:30 PM EST) P athologist Signature Glucose Lvl 180 65 - 199 [facility] mg/dL [facility] LABORATORY Comment: Diabetes: >=200 mg/dL plus symp toms BUN 14 8 - 18 mg/dL [facility] LABOR[facility]ORY Creatinine 0.65 (L) 0.70 - 1.20 mg/dL [facility] LABORATORY Sodium 141 135 - 145 mmol/L [facility] LABOR[facility]ORY Potassium 4.1 3.5 - 5.0 mmol/L [facility] LAB[facility]ORY Comment: Please note: ??Patients with WBC >100,00 0 may have falsely elevated Potassium levels. ??For accurate Potassium quantif ication in these patients send serum separator tube (gold top) for subsequent determinations. ??Contact the Clinical Chemistry Laboratory if there are any qu estions. Chloride 105 98 - 107 mmol/L [facility] LABORATORY CO2 24 22 - 31 mmol/L [facility] Anion Gap 12 5 - 15 mmol/L [facility] LABORATORY Calcium 8.4 (L) 8.5 - 10.5 mg/dL [facility] LABOR[facility]ORY Estimated GFR 106 >=60 mL/min/1.73 m?? [facility]ORY Comment: This patient? s [...] (Source) Location / / Volume Laterality Blood 09/02/2021 1:30 PM 1 1:42 EST PM EST Resulting Agency Comment Spec In Lab Jay Jay Gant MD CHEMISTRY ORDERABLES Performing Organization Address City/State/[place] [address] (ABNORMAL) POCT Glucose (09/02/2021 1:27 PM EST) P athologist Signature POC Glucose 201 (H) 65 - 199 [facility] mg/dL [facility] LABORATORY Comment: Supplemental ranges: <140 mg/dL before meals <180 mg/dL all other times of the day Specimen Anatomical Collection Method Collection Time Receive d Time (Source) Location / / Volume Laterality Blood 09/02/2021 1:27 PM 1 1:27 EST PM EST Jay Jay Gant MD POINT OF CARE TEST ORDERABLE S Performing Organization Address City/[facility]/[place] [address] COVID-19 PCR (09/02/2021 1:01 PM EST) Patholo gist Method Time Signature SARS-CoV-2 Not Detected Not Detected [facility] RNA PCR [facility] LABORATORY Comment: This result should be interpreted [...] using the Simplexa COVID-19 Direct Assay by Navitellstarla pradhan as authorized by the FDA issued Emergency [...] Department of Pathology and Laboratory Medicine at [facility], certified under the Clinical Laboratory Improvement [...] clinical management guidance information are available at [facility] CDC Coronavirus Disease 2019 (COVID-19) webpage under Information fo r Healthcare Professionals (https://www.cdc.gov/coronavirus/2019-nc ov/hcp/index.html). Additional information about this and ot her EUA tests can be found in provider and patient fact sheets at the following FDA website: https://www.fda.gov/medical-devices/rlqeqgjiwuw-xvmeosq-7434-gyklp-44-ddgrmghwg- cmt-gcrgavcfefzkxh-venkftz-devices/splwe-gebrlawqzbh-ttiw SARS-CoV-2 Source TITLE CURATOR Swab [facility] LABORATORY Specimen (Source) Anatomical Collection Method Collection Time Re ceived Time Location / / Volume Laterality Nasopharyngeal Swab 09/02/2021 1:01 09/02 PM EST 2:45 PM EST Comment: Symptoms->Surveillance Resulting Agency Comment Spec In Lab Jay Jay Gant MD MICROBIOLOGY - GENERAL ORDER ERIN Performing Organization Address City/State/Z[place] [address] documented in this encounter Visit Diagnoses Diagnosis NSTEMI (non-ST elevated myocardial infar ction) Acute myocardial infarction, subendocard ial infarction, episode of care unspecified Coronary artery disease involving [place] coronary artery of [place] heart without angina pectoris HFrEF (heart failure with reduced ejecti on fraction) NSTEMI (non-ST elevated myocardial infar ction) Acute myocardial infarction, subendocard ial infarction, episode of care unspecified Coronary artery disease involving [place] coronary artery of [place] heart without angina pectoris documented in this encounter Admitting Diagnoses Diagnosis NSTEMI (non-ST elevated myocardial infar ction) Acute myocardial infarction, subendocard ial infarction, episode of care unspecified documented in this encounter Administered Medications Inactive Administered Medications - up to 3 most recent administrations Medication Order MAR Action Action Date Dose Rate Site acetaminophen (Tylenol) tablet Given 09/05/2021 12:10 PM EST 975 mg 975 mg 975 mg, Oral, EVERY 8 HOURS, First dose on Mon09/03/21 at 0445, Until Discontinued, Maximum dose of acetaminophen is 4000 mg from all sources in 24 hours. When ordered for pain, acetaminophen should be given even when other ordered pain medications are indicated. , Routine Given 09/05/2021 5:40 AM EST 975 mg Given 09/04/2021 9:04 PM EST 975 mg aspirin EC tablet 81 mg Given 09/05/2021 9:01 AM EST 81 mg 81 mg, Oral, DAILY, First dose on Mon09/03/21 at 0945, Until Discontinued, Routine Given 09/04/2021 8:17 AM EST 81 mg Given 09/03/2021 9:18 AM EST 81 mg atorvastatin (Lipitor) tablet 80 mg Given 09/04/2021 4:19 PM EST 80 mg 80 mg, Oral, EVERY EVENING, First dose on Toya 09/02/21 at 1700, Until Discontinued, Routine budesonide (Pulmicort) nebulizer suspension Given 01/2021 10:00 AM EST 500 mcg 500 mcg 500 mcg, Nebulization, (R) 2 TIMES DAILY, First dose on Mon09/05/21 at 0930, Until Discontinued, Routine budesonide-formoteroL (Symbicort) Given 09/04/2021 8:34 AM EST 2 Inhalation 160-4.5 mcg/actuation inhaler 2 Inhalation 2 Inhalation, Inhalation, 2 TIMES DAILY, First dose on Toya 09/02/21 at 1345, Until Discontinued Given 09/03/2021 8:52 PM EST 2 Inhalation Given 09/03/2021 9:19 AM EST 2 Inhalation cefpodoxime (Vantin) tablet 200 mg Given 09/05/2021 9:02 AM EST 200 mg 200 mg, Oral, 2 TIMES DAILY, 10 doses, First dose (after last modification) on 09/04/21 at 0930, Last dose on Mon09/08/21 at 2100, Routine, Indication 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): Pneumonia (Community) Given 09/04/2021 9:06 PM EST 200 mg Given 09/04/2021 9:37 AM EST 200 mg clopidogreL (Plavix) tablet 75 mg Given 09/05/2021 9:01 AM EST 75 mg 75 mg, Oral, DAILY, First dose (after last modification) on Mon09/03/21 at 0900, Until Discontinued, Routine Given 09/04/2021 8:17 AM EST 75 mg Given 09/03/2021 9:11 AM EST 75 mg dextrose 10% infusion 250 mL, at 1,000 mL/hr, Intravenous, KONSTANTIN RY 30 MIN PRN, Starting on 09/04/21 at 0608, Until 09/05/21 at 1508, For BG 50-70 mg/dL: Oral treatment preferred: [...] for the duration of the active insulin. doxycycline monohydrate (Monodox) capsule 100 Given 9:01 AM EST 100 mg mg 100 mg, Oral, EVERY 12 HOURS SCHEDULED (2 times per day), 10 doses, First dose (after last modification) on 09/04/21 at 0930, Last dose on Mon09/08/21 at 2100, Routine Given 09/04/2021 9:05 PM EST 100 mg Given 09/04/2021 9:35 AM EST 100 mg enoxaparin (Lovenox) (40 mg/0.4 mL) Given 09/04/2021 9:04 PM EST 40 mg subcutaneous injection 40 mg 40 mg, Subcutaneous, NIGHTLY, First dose on 09/04/21 at 2100, Until Discontinued, Routine fentaNYL (PF) (50 mcg/mL) injection 50 m cg Given 09/03/2021 3:03 PM EST 50 mcg 50 mcg, Intravenous, EVERY 1 HOUR PRN, Starting on Toya 09/02/21 at 1747, Until Mon09/03/21 at 1746, Pain, If medication ordered subcutaneously, do not administer more than 2 mL as a single injection., Routine Given 09/03/2021 1:06 PM EST 50 mcg Given 09/03/2021 10:00 AM EST 50 mcg ferrous sulfate EC tablet 325 mg Given 09/04/2021 8:18 AM EST 325 mg 325 mg, Oral, EVERY OTHER DAY, First dose on 09/04/21 at 0900, Until Discontinued, DO NOT CRUSH OR OPEN. Take with food or water. , Routine furosemide (Lasix) (10 mg/mL) injection 20 mg Given 09/03/2021 9:11 AM EST 20 mg 20 mg, Intravenous, ONCE, 1 dose, On Mon09/03/21 at 0945, Routine furosemide (Lasix) (10 mg/mL) injection 80 mg Given 09/02/2021 9:13 PM EST 80 mg 80 mg, Intravenous, ONCE, 1 dose, On Toya 09/02/21 at 2145, Routine gabapentin (Neurontin) capsule 1,200 mg Given 09/04/2021 9:04 PM EST 1,200 mg 1,200 mg, Oral, NIGHTLY, First dose on Toya 09/02/21 at 2100, Until Discontinued, Routine Given 09/03/2021 8:51 PM EST 1,200 mg Given 09/02/2021 8:31 PM EST 1,200 mg gabapentin (Neurontin) capsule 600 mg Given 09/05/2021 11:37 AM EST 600 mg 600 mg, Oral, USER SPECIFIED (2 times per day), First dose on Toya 09/02/21 at 1415, Until Discontinued, Routine Given 09/05/2021 9:01 AM EST 600 mg Given 09/04/2021 11:21 AM EST 600 mg glucagon (Glucagen) (1 mg/mL) injection solution 1 mg 1 mg, Intramuscular, EVERY 30 MIN PRN, S tarting on 09/04/21 at 0608, Until 09/05/21 at 1508, Low blood sugar, For BG 50-70 mg/dL: [...] duration of the active insulin., Routine glucose (GLUTOSE) 40% oral geL 15-30 g, Buccal, EVERY 30 MIN PRN, Starting on 09/04/21 at 0608, Until 09/05/21 at 1508, Low blood sugar, For BG 50-70 mg/dL: [...] duration of the active insulin. 1 tube contains 15 grams of glucose (net weig ht of tube = 37.5 grams., Routine guaiFENesin (Robitussin) (20 mg/mL) oral Given 09/05/2021 3:14 A M EST 200 mg liquid 200 mg 200 mg, Oral, EVERY 4 HOURS PRN, Starting on 09/03/21 at 1328, Until 09/05/21 at 1110, Cough, Maximum daily dose is 2400 mg, Routine Given 09/04/2021 9:17 PM EST 300 mg Given 09/04/2021 1:36 AM EST 200 mg heparin (porcine) (1,000 units/mL) Given 09/03/2021 12:08 PM EST 2,000 Units injection 0-4,000 Units 0-4,000 Units, Intravenous, BOLUS PER HEPARIN PROTOCOL, Starting on Toya 09/02/21 at 1259, Until 09/04/21 at 0726, Per Protocol, START ADJUSTMENT SCHEDULE 6 HOURS AFTER STARTING INFUSION Heparin UFH Level between 0.1 - 0.29 IU/mL: Bolus 2,000 units Heparin UFH Level less than 0.1 IU/mL: Bolus 4,000 units, Routine heparin (porcine) 50 Rate/Dose Change 09/03/2021 12:11 1,050 Units/hr 21 mL/hr units/mL in sodium PM EST chloride 0.45% 500 mL infusion 0-5,000 Units/hr (0-100 mL/hr), Intravenous, CONTINUOUS, Starting on Toya 09/02/21 at 1345, Until 09/04/21 at 0726, BEGIN infusion at 1,000 units per hr (12 units/kg/hr). MAX INITIAL infusion rate is 1,000 units/hr. Target Heparin UFH Level (anti-Xa activity) = 0.3 - 0.7 IU/mL Start adjustment schedule 6 hours after starting infusion. If Heparin UFH Level is: - less than 0.1 IU/mL, administer PRN bolus and increase rate by 350 units per hr (4 units/kg/hr) - 0.1 - 0.29 IU/mL, administer PRN bolus and increase rate by 150 units per hr (2 units/kg/hr) - 0.3 - 0.7 IU/mL, No Change - 0.71 - 0.85 IU/mL, decrease rate by 100 units per hr (1 units/kg/hr) - 0.86 - 1.05 IU/mL, stop infusion for 30 minutes, then decrease rate by 150 units per hr (2 units/kg/hr) - Greater than 1.05 IU/mL, stop infusion for 60 minutes, then decrease rate by 250 units per hour (3 units/kg/hr) Repeat Heparin UFH Level 6 hours after initiating heparin. Then 6 hours after each dose adjustment. When 2 consecutive Heparin UFH Level within target range of 0.3 - 0.7 IU/mL, change Heparin UFH Level to once every 24 hours with A.M. labs while on heparin. RN to order required Heparin UFH Level - Per Protocol, Routine Rate/Dose Verify 09/03/2021 6:00 AM EST 900 Units/hr 18 mL/hr Rate/Dose Verify 09/03/2021 4:00 AM EST 900 Units/hr 18 mL/hr insulin glargine (Lantus;Semglee) (100 Given 09/04/2021 9:06 PM EST 40 Units unit/mL) subcutaneous injection vial 40 Units 40 Units, Subcutaneous, NIGHTLY, First dose (after last modification) on 09/04/21 at 2100, Until Discontinued, Routine insulin lispro (HumaLOG;Admelog) (100 Given 09/05/2021 8:[address] 11 Units unit/mL) subcutaneous injection vial 0-13 Units 0-13 Units, Subcutaneous, 3 TIMES DAILY WITH MEALS, First dose (after last modification) on 09/04/21 at 1700, Until Discontinued, ME[employer] ASS[employer] Give 1 unit for every 6 grams carbohydrate. Hold if not eating or if BG less than 70 mg/dL., Routine Given 09/04/2021 5:46 PM EST 8 Units insulin lispro (HumaLOG;Admelog) (100 unit/mL) subcuta neous injection vial 0-13 Units 0-13 Units, Subcutaneous, 3 TIMES DAILY WITH MEALS, Fi rst dose (after last modification) on 09/05/21 at 1200, Un til Discontinued, [employer] Give 1 unit for every 2 grams carbohydrate. Hold if not eat ing or if BG less than 70 mg/dL., Routine insulin lispro (HumaLOG;Admelog) (100 Given 09/04/2021 12:57 PM EST 6 Units unit/mL) subcutaneous injection vial 0-8 Units 0-8 Units, Subcutaneous, 3 TIMES DAILY WITH MEALS, First dose on 09/04/21 at 0800, Until Discontinued, [employer] Give 1 unit for every 10 grams carbohydrate. Hold if not eating or if BG less than 70 mg/dL., Routine Given 09/04/2021 8:04 AM EST 4 Units insulin lispro (HumaLOG;Admelog) (100 Given 09/04/2021 4:[address] 6 Units unit/mL) subcutaneous injection vial 1-6 Units 1-6 Units, Subcutaneous, EVERY 4 HOURS SCHEDULED, First dose on Mon09/03/21 at 0945, Until Discontinued, CORRECTION BOLUS [1-6 Units] Moderate [...] 240 mg/dL in 2 hours., Routine Given 09/04/2021 2:10 AM EST 6 Units Given 09/04/2021 12:14 AM EST 6 Units insulin lispro (HumaLOG;Admelog) (100 Given 09/04/2021 4:[address] 12 Units unit/mL) subcutaneous injection vial 2-12 Units 2-12 Units, Subcutaneous, EVERY 4 HOURS SCHEDULED, First dose on 09/04/21 at 0800, Until Discontinued, CORRECTION BOLUS [2-12 Units] Resistant [...] 240 mg/dL in 2 hours, Routine Given 09/04/2021 2:22 PM EST 12 Units Given 09/04/2021 11:31 AM EST 12 Units insulin lispro (HumaLOG;Admelog) (100 Given 09/05/2021 8:[address] 6 Units unit/mL) subcutaneous injection vial 2-16 Units 2-16 Units, Subcutaneous, EVERY 4 HOURS SCHEDULED, First dose (after last modification) on 09/04/21 at 2000, Until Discontinued, CORRECTION BOLUS [6-12 Units] Resistant Sliding Scale (BG in mg/dL) Correction Factor 10 (1 unit of insulin is expected to drop the glucose 10 mg/dL) BG 140 - 160 Give 6 units BG 161 - 180 Give 8 units BG 181 - 200 Give 10 units BG 201 - 220 Give 12 units BG 221 - 240 Give 14 units BG greater than 240, give 16 units and recheck BG in 2 hours. - If recheck BG is LESS than 240, give no insulin and resume schedule. - If recheck BG is GREATER than 240, give 16 units and repeat BG in 2 hours (no more than 3 times) & call for new insulin orders. DO NOT hold if NPO, unless specifically directed to do so by written order. Per Blood Glucose Monitoring Policy, re-check a BG of > 240 mg/dL in 2 hours, Routine Given 09/05/2021 5:39 AM EST 12 Units Given 09/04/2021 11:53 PM EST 12 Units insulin lispro (HumaLOG;Admelog) (100 Given 09/05/2021 12:28 PM EST 26 Units unit/mL) subcutaneous injection vial 2-16 Units 2-16 Units, Subcutaneous, EVERY 4 HOURS SCHEDULED, First dose (after last modification) on 09/05/21 at 1200, Until Discontinued, CORRECTION BOLUS [6-12 Units] Very Resistant Sliding Scale (custom) (BG in mg/dL) Correction Factor 10 (1 unit of insulin is expected to drop the glucose 5 mg/dL) BG 140 - 160 Give 6 units BG 161 - 180 Give 10 units BG 181 - 200 Give 14 units BG 201 - 220 Give 18 units BG 221 - 240 Give 22 units BG greater than 240, give 26 units and recheck BG in 2 hours. - If recheck BG is LESS than 240, give no insulin and resume schedule. - If recheck BG is GREATER than 240, give 26 units and repeat BG in 2 hours (no more than 3 times) & call for new insulin orders. DO NOT hold if NPO, unless specifically directed to do so by written order. Per Blood Glucose Monitoring Policy, re-check a BG of > 240 mg/dL in 2 hours, Routine ipratropium-albuteroL (Duoneb) 0.5 mg-3 mg(2.5 Given 1 11/04/2020 7:25 AM EST 3 mLs mg base)/3 mL nebulizer solution 3 mL 3 mL, Nebulization, EVERY 4 HOURS PRN, Starting on [place] 09/02/21 at 1251, Until Mon09/03/21 at 0852, Wheezing, Routine Given 09/03/2021 1:27 AM EST 3 mLs Given 09/02/2021 1:11 PM EST 3 mLs ipratropium-albuteroL (Duoneb) 0.5 mg-3 mg(2.5 Given 1 11/05/2020 1:34 AM EST 3 mLs mg base)/3 mL nebulizer solution 3 mL 3 mL, Nebulization, EVERY 6 HOURS, First dose (after last modification) on Mon09/03/21 at 1400, Until Discontinued, Routine Given 09/03/2021 2:42 PM EST 3 mLs ipratropium-albuteroL (Duoneb) 0.5 mg-3 Given 09/05/2021 11:39 A M EST 3 mLs mg(2.5 mg base)/3 mL nebulizer solution 3 mL 3 mL, Nebulization, EVERY 4 HOURS SCHEDULED, First dose (after last modification) on 09/04/21 at 1200, Until Discontinued, Routine Given 09/05/2021 9:00 AM EST 3 mLs Given 09/05/2021 3:14 AM EST 3 mLs ipratropium-albuteroL (Duoneb) 0.5 mg-3 mg(2.5 Given 1 11/05/2020 8:35 AM EST 3 mLs mg base)/3 mL nebulizer solution 3 mL 3 mL, Nebulization, EVERY 2 HOURS PRN, Starting on 09/04/21 at 0834, Until 09/05/21 at 1508, Wheezing, Routine lidocaine (Lidoderm) 5% Patch Applied 09/02/2021 6:01 PM 1 patch 20-Other (document patch 1 patch EST in comment 1 patch, Transdermal, sec tion) EVERY 24 HOURS, First dose on [place] 09/02/21 at 1815, Until Discontinued, Apply patch(es) for 12 hours, and then remove for 12 hours., Routine lidocaine (Lidoderm) 5% patch 1 patch 1 patch, Transdermal, EVERY 24 HOURS, First dose on Fr i 09/03/21 at 1430, Until Discontinued, Apply patch(es) for 12 judy rs, and then remove for 12 hours., Routine lidocaine (Lidoderm) 5% Patch Applied 09/04/2021 2:48 PM 3 patches 03- Shoulder patch 3 patch EST (Left) 3 patch, Transdermal, EVERY 24 HOURS, First dose (after last modification) on Mon09/03/21 at 1430, Until Discontinued, Apply patch(es) for 12 hours, and then remove for 12 hours., Routine Patch Applied 09/03/2021 1:41 PM EST 3 patches 12- Chest (Right) lidocaine (Lidoderm) topical patch REMOV AL Transdermal, EVERY 24 HOURS, First dose on 09/04/21 at 0130, Until Discontinued, Remove lidocaine 5% patch lidocaine (Lidoderm) topical patch REMOV AL Transdermal, EVERY 24 HOURS, First dose (after last modification) on 09/04/21 at 0530, Until Discontinued, Remove lidocaine 5% patch lidocaine (Xylocaine) 1% (10 mg/mL) inje ction 3 mg 3 mg (0.3 mL), Subcutaneous, ONCE PRN, 1 dose, Startin g on [facility] 09/02/21 at 1246, Until 09/05/21 at 1508, for discomfort with PIV ins ertion, Routine losartan (Cozaar) tablet 25 mg Given 09/05/2021 9:01 AM EST 25 mg 25 mg, Oral, DAILY, First dose on 09/05/21 at 0930, Until Discontinued, Routine magnesium oxide (Mag-Ox) tablet 400 mg Given 09/05/2021 12:30 PM EST 400 mg 400 mg, Oral, 2 TIMES DAILY, First dose on 09/05/21 at 1300, Until Discontinued, Administer 2 hours before or 4 hours after doxycycline, Routine magnesium sulfate 2 g in sterile Rate/Dose Verify 09/02/2021 8:00 P M EST 25 mL/hr water 50 mL infusion 2 g, Intravenous, ONCE, 1 dose, On [facility] 09/02/21 at 1600, Administer over 120 Minutes New Bag 09/02/2021 7:25 PM EST 2 g 25 mL/hr magnesium sulfate 2 g in sterile water New Bag 09/02/2021 9:20 PM EST 2 g 25 mL/hr 50 mL infusion 2 g, Intravenous, ONCE, 1 dose, On [place] 09/02/21 at 2130, Administer over 120 Minutes magnesium sulfate 2 g in sterile water New Bag 09/04/2021 3:43 AM EST 2 g 25 mL/hr 50 mL infusion 2 g, Intravenous, ONCE, 1 dose, On 09/04/21 at 0430, Administer over 120 Minutes metoprolol succinate XL (Toprol-XL) tablet 50 Given 12:30 PM EST 50 mg mg 50 mg, Oral, DAILY, First dose on Mon09/05/21 at 1200, Until Discontinued, DO NOT CRUSH OR OPEN, Routine metoprolol tartrate (Lopressor) tablet 12.5 Given 11/2020 1:54 PM EST 12.5 mg mg 12.5 mg, Oral, EVERY 6 HOURS SCHEDULED, First dose on [place] 09/02/21 at 1400, Until Discontinued, Hold for SBP < 90, HR < 50, Routine metoprolol tartrate (Lopressor) tablet 12.5 Given 01/2021 5:41 AM EST 12.5 mg mg 12.5 mg, Oral, EVERY 6 HOURS SCHEDULED, First dose on [facility] 09/04/21 at 0815, Until Discontinued, Hold for SBP < 90, HR < 50, Routine Given 09/04/2021 11:48 PM EST 12.5 mg Given 09/04/2021 5:57 PM EST 12.5 mg nicotine (Nicoderm CQ) 7 Patch Applied 09/05/2021 9:04 AM 7 mg 04- Shoulder mg/24 hr patch 7 mg EST (Right) 7 mg (1 patch), Transdermal, DAILY, First dose on Mon09/02/21 at 1345, Until Discontinued, Apply new patch to nonhairy, clean, dry skin on the upper body or upper outer arm; each patch should be applied to a different site , Routine Patch Applied 09/04/2021 8:18 AM EST 7 mg 04- Shoulder (Right) Patch Applied 09/03/2021 9:11 AM EST 7 mg 04- Shoulder (Right) nicotine (NICODERM CQ) 7 mg/24 hr patch Patch Removal Transdermal, DAILY, First dose on Mon at 0900, Until Discontinued, Remove nicotine 7 mg/24 hr patch nicotine (NICODERM CQ) 7 mg/24 hr patch Patch Verification Transdermal, 2 TIMES DAILY, First dose o n Mon09/03/21 at 0900, Until Discontinued, Verify nicotine 7 mg/24 hr patch. nitroGLYcerin (200 mcg/mL) in Rate/Dose Change 09/02/2021 4:42 PM 2 0 mcg/min 6 mL/hr dextrose 5% 250 mL infusion EST CONTINUOUS PRN, Starting on Mon09/02/21 at 1536, Until Mon09/02/21 at 1536, Cath (Intra-Procedure), Routine New Bag 09/02/2021 3:36 PM EST 10 mcg/min 3 mL/hr nitroGLYcerin (200 mcg/mL) in dextrose 5 % 250 mL infusion 0-200 mcg/min (0-60 mL/hr), Intravenous, CONTINUOUS, S tarting on [place] 09/02/21 at 1845, Until 09/05/21 at 1508, Titrate to resolution of chest pain. Start at 25 mcg/min and adjust by 25 mcg/min every 5 minutes. Do n ot exceed 200 mcg/min., Routine nitroGLYcerin (Nitrostat) disintegrating tablet 0.4 mg 0.4 mg, Sublingual, EVERY 5 MIN PRN, Starting on [place] 1 11/03/20 at 1246, Until 09/05/21 at 1508, Chest pain, May repeat every 5 minutes for a total of three doses. Notify provider if chest pain not reliev ed with nitroglycerin. Do not administer nitroglycerin if the patient has received or taken talat sphodiesterase (PDE-5) inhibitors such as sildenafil, tadalafil or vardenafil within the last 24 to 72 hours., Routine oxyCODONE (Roxicodone) tablet 10 mg Given 09/04/2021 11:21 AM EST 10 mg 10 mg, Oral, EVERY 4 HOURS PRN, Starting on [place] 09/02/21 at 1722, Until 09/04/21 at 1345, Pain, Routine Given 09/04/2021 6:43 AM EST 10 mg Given 09/04/2021 1:36 AM EST 10 mg oxyCODONE (Roxicodone) tablet 10 mg Given 09/05/2021 11:37 AM EST 10 mg 10 mg, Oral, EVERY 6 HOURS PRN, Starting on 09/04/21 at 1400, Until 09/05/21 at 1508, Pain, Routine Given 09/05/2021 5:40 AM EST 10 mg Given 09/04/2021 11:49 PM EST 10 mg pantoprazole (Protonix) injection 40 mg Given 09/04/2021 8:18 AM EST 40 mg 40 mg, Intravenous, 2 TIMES DAILY, First dose (after last modification) on [place] 09/02/21 at 1830, Until Discontinued Given 09/03/2021 9:07 PM EST 40 mg Given 09/03/2021 9:11 AM EST 40 mg pantoprazole EC (Protonix) tablet 40 mg Given 09/05/2021 9:01 AM EST 40 mg 40 mg, Oral, DAILY, First dose on 09/05/21 at 0900, Until Discontinued, DO NOT CRUSH OR OPEN, Routine perflutren lipid microspheres (Definity) Given 09/05/2021 10:50 AM EST 1.2 mLs injection 1.2 mL 1.2 mL, Intravenous, ONCE PRN, 1 dose, Starting on 09/05/21 at 1049, Until 09/05/21 at 1050, Other, Routine potassium chloride ER (K-Dur/Klor-Con) Given 09/02/2021 10:32 PM EST 20 mEq tablet 20 mEq 20 mEq, Oral, EVERY 4 HOURS PRN, Starting on [place] 09/02/21 at 2037, Until 09/05/21 at 1508, hypokalemia, Administer for serum potassium (mMol/L) of 3.9 - 4 See instructions for Potassium Protocol in online policies., Routine potassium chloride ER (K-Dur/Klor-Con) tablet Given 1:41 AM EST 40 mEq 40 mEq 40 mEq, Oral, EVERY 4 HOURS PRN, Starting on [place] 09/02/21 at 2037, Until 09/05/21 at 1508, hypokalemia, Administer for serum potassium (mMol/L) of 3.6 - 3.8 See instructions for Potassium Protocol in online policies., Routine predniSONE (Deltasone) tablet 40 mg Given 09/05/2021 9:01 AM EST 40 mg 40 mg, Oral, DAILY, 5 doses, First dose on 09/04/21 at 0930, Last dose on 09/08/21 at 0900, Routine Given 09/04/2021 9:35 AM EST 40 mg sodium chloride 0.9 % (flush) (BD PosiFlush Given 09/05/2021 8:0 0 AM EST 5 mLs Normal Saline 0.9) flush 5 mL 5 mL, Intravenous, 2 TIMES DAILY, First dose on [place] 09/02/21 at 1345, Until Discontinued, Routine Given 09/04/2021 8:27 AM EST 5 mLs Given 09/02/2021 8:32 PM EST 5 mLs sodium chloride 0.9 % (flush) (BD PosiFlush Given 09/05/2021 8:0 0 AM EST 5 mLs Normal Saline 0.9) flush 5 mL 5 mL, Intravenous, 2 TIMES DAILY, First dose on [place] 09/02/21 at 1345, Until Discontinued, Routine Given 09/04/2021 8:27 AM EST 5 mLs Given 09/03/2021 8:55 PM EST 5 mLs sodium chloride 0.9 % (flush) (BD PosiFl ush Normal Saline 0.9) flush 5-20 mL 5-20 mL, Intravenous, EVERY 1 MIN PRN, S tarting on [place] 09/02/21 at 1246, Until 09/05/21 at 1508, flush, Flush pertains t o all indwelling lines. Flush per protocol found in the job aid using the link prov ided on this medication record., Routine sodium chloride 0.9 % (flush) (BD PosiFl ush Normal Saline 0.9) flush 5-20 mL 5-20 mL, Intravenous, EVERY 1 MIN PRN, S tarting on [place] 09/02/21 at 1246, Until 09/05/21 at 1508, flush, Flush pertains t o all indwelling lines. Flush per protocol found in the job aid using the link prov ided on this medication record., Routine sodium chloride 0.9% infusion New Bag 09/03/2021 7:29 PM EST 50 mL/hr 50 mL/hr 50 mL/hr, Intravenous, CONTINUOUS, Starting on Mon09/03/21 at 1945, Until Mon09/03/21 at 2344, Recovery (Recovery-Hospital Unit) documented in this encounter Active and Recently Administered Medications Times are shown in EST. Scheduled Medication Order 09/03/2021 09/04/2021 09/05/2021 acetaminophen (Tylenol) tablet 975 mg 0408 (Given - Pr ovider: Chelle Burrows RN)1209 (Given - Provider: Juan Mohan RN)1634 (MAR Hold - Provider: Admin Adt - Reason: Transfer to a Procedural area)2005 (MAR Unhold - Provider: Admin Adt)2052 (Given - Provider: Sharmin Dodge, DEVAN) 0445 (Not Given - Provider: Sharmin Dodge RN - Reason: Patient/family refused)1213 (Given - Provider: Ruth Barros RN)2104 (Given - Provider: Jodi Anaya, RN) 0540 (Given - Provider: Jodi Anaya, RN)1210 (Given - Provider: Hermelindo Yanez, DEVAN) 975 mg, Oral, EVERY 8 HOURS, First dose on Mon09/03/21 at 0445, Until Discontinued, Maximum dose of acetaminophen is 4000 mg from all sources in 24 hours. When ordered for pain, acetaminophen should be given even when other ordered pain medications are indicated. , Routine aspirin EC tablet 81 mg 0918 (Given - Provider: Karen Mohan RN)1634 (MAR Hold - Provider: Admin Adt - Reason: Transfer to a Procedural area)2005 (MAR Unhold - Provider: Admin Adt) 0817 (Given - Provider: Ruth Barros RN) 09 (Given - Provider: Hermelindo Yanez RN) 81 mg, Oral, DAILY, First dose on Mon at 0945, Until Discontinued, Routine atorvastatin (Lipitor) tablet 80 mg 163 (MAR Hold - P rovider: Admin Adt - Reason: Transfer to a Procedural area)170 (Automatically Held - Provider: Admin Adt)2005 (MAR Unhold - Provider: Admin Adt) 1619 (Given - Provider: Ruth Barros RN) 80 mg, Oral, EVERY EVENING, First dose o n [place] 09/02/21 at 1700, Until Discontinued, Routine budesonide (Pulmicort) nebulizer suspension 500 mcg 1000 (Given - Provider: Hermelindo Yanez RN) 500 mcg, Nebulization, (R) 2 TIMES DAILY , First dose on Mon09/05/21 at 0930, Until Discontinued, Routine budesonide-formoteroL (Symbicort) 160-4. 5 mcg/actuation inhaler 2 Inhalation (CANCELED) 0919 (Given - Provider: Juan Mohan RN)163 (MAR Hold - Provider: Admin Adt - Reason: Transfer to a Procedural area)2005 (MAR Unhold - Provider: Admin Adt)2051 (Given - Provider: Sharmin Dodge, DEVAN) 0834 (Given - Provider: Ruth Barros, DEVAN) 2 Inhalation, Inhalation, 2 TIMES DAILY, First dose on [place] 09/02/21 at 1345, Until Discontinued cefpodoxime (Vantin) tablet 200 mg 936 (Given - Provider: Ruth Barros RN)2105 (Given - Provider: Jodi Anaya, DEVAN) 901 (Given - Provider: Hermelindo Yanez, DEVAN) 200 mg, Oral, 2 TIMES DAILY, 10 doses, F irst dose (after last modification) on Mon09/04/21 at 0930, Last dose on Mon09/08/21 at 2100, Routine clopidogreL (Plavix) tablet 75 mg 910 (Given - Provid er: Juan Mohan RN)1634 (NOV Hold - Provider: Admin Adt - Reason: Transfer to a Procedural area)2005 (NOV Unhold - Provider: Admin Adt) 816 (Given - Provider: Ruth Barros RN) 900 (Given - Provider: Hermelindo Yanez RN) 75 mg, Oral, DAILY, First dose (after la st modification) on Mon09/03/21 at 0900, Until Discontinued, Routine doxycycline monohydrate (Monodox) capsule 100 mg 934 (Given - Provider: Ruth Barros RN)2104 (Given - Provider: Jodi Anaya, DEVAN) 900 (Given - Provider: Hermelindo Yanez, DEVAN) 100 mg, Oral, EVERY 12 HOURS SCHEDULED ( 2 times per day), 10 doses, First dose (after last modification) on Mon09/04/21 at 0930, Last dose on Mon09/08/21 at 2100, Routine enoxaparin (Lovenox) (40 mg/0.4 mL) subcutaneous injection 4 0 mg 2103 (Given - Provider: Jodi Anaya, DEVAN) 40 mg, Subcutaneous, NIGHTLY, First dose on 09/04/21 at 2100, Until Discontinued, Routine ferrous sulfate EC tablet 325 mg 817 (G iven - Provider: Ruth Barros RN) 325 mg, Oral, EVERY OTHER DAY, First dos e on Mon09/04/21 at 0900, Until Discontinued, DO NOT CRUSH OR OPEN. Take with food or water. , Routine furosemide (Lasix) (10 mg/mL) injection 20 mg (COMPLET ED) 910 (Given - Provider: Juan Mohan RN) 20 mg, Intravenous, ONCE, 1 dose, On Mon09/03/21 at 0945, Routin e gabapentin (Neurontin) capsule 1,200 mg(Linked Group 1 ) 1634 (MAR Hold - Provider: Admin Adt - Reason: Transfer to a Procedural area)2005 (MAR Unhold - Provider: Admin Adt)2050 (Given - Provider: Sharmin Dodge RN) 210 (Given - Provider: Jodi Anaya, DEVAN) 1,200 mg, Oral, NIGHTLY, First dose on 09/02/21 at 2100, Until Discontinued, Routine gabapentin (Neurontin) capsule 600 mg(Linked Group 1) 09 (Given - Provider: Juan Mohan RN)1209 (Given - Provider: Juan Mohan RN)1634 (MAR Hold - Provider: Admin Adt - Reason: Transfer to a Procedural area)2005 (MAR Unhold - Provider: Admin Adt) 0818 (Given - Provider: Ruth villela RN)1121 (Given - Provider: Ruth Barros RN) 0901 (Given - Provider: Hermelindo Yanez , DEVAN)1137 (Given - Provider: Hermelindo Yanez RN) 600 mg, Oral, USER SPECIFIED (2 times pe r day), First dose on Mon09/02/21 at 1415, Until Discontinued, Routine insulin glargine (Lantus;Semglee) (100 u nit/mL) subcutaneous injection vial 40 Units 2105 (Given - Provider: Jodi Anaya, DEVAN) 40 Units, Subcutaneous, NIGHTLY, First d ose (after last modification) on 09/04/21 at 2100, Until Discontinued, Routine insulin lispro (HumaLOG;Admelog) (100 un it/mL) subcutaneous injection vial 0-13 Units (CANCELED) 1745 (Given - Provider: Ruth villela RN) 0830 (Given - Provider: Hermelindo Yanez RN) 0-13 Units, Subcutaneous, 3 TIMES DAILY WITH MEALS, First dose (after last modification) on 09/04/21 at 1700, Until Discontinued, ME[employer] Give 1 unit for every 6 grams carbohydrate. Hold if not eating or if BG less than 70 mg/dL., Routine insulin lispro (HumaLOG;Admelog) (100 un it/mL) subcutaneous injection vial 0-13 Units 1200 (Not Given - Pr ovider: Hermelindo Yanez RN - Reason: Contraindicated - Comment: No meal, pt being discharged) 0-13 Units, Subcutaneous, 3 TIMES DAILY WITH MEALS, First dose (after last modification) on 09/05/21 at 1200, Until Discontinued, ME[employer] Give 1 unit for every 2 grams carbohydrate. Hold if not eating or if BG less than 70 mg/dL., Routine insulin lispro (HumaLOG;Admelog) (100 un it/mL) subcutaneous injection vial 0-8 Units (CANCELED) 0804 (Given - Provider: Willy Barros RN)1257 (Given - Provider: Ruth Barros RN) 0-8 Units, Subcutaneous, 3 TIMES DAILY W ITH MEALS, First dose on 09/04/21 at 0800, Until Discontinued, ME[employer] Give 1 unit for every 10 grams carbohydrate. Hold if not eating or if BG less than 70 mg/dL., Routine insulin lispro (HumaLOG;Admelog) (100 un it/mL) subcutaneous injection vial 1-6 Units (CANCELED) 0945 (Not Given - Provider: Juan maxwell RN - Reason: Contraindicated)1200 (Not Given - Provider: Juan Mohan RN - Reason: Order parameters not met) 0014 (Given - Provider: Sharmin Dodge RN)0210 (Given - Provider: Sharmin Dodge RN - Comment: recheck > 240. Pt had snacks (candy) brought from home. Had conversation with her. 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 (MAR Hold - Provider: Admin Adt - Reason: Transfer to a Procedural area) 0418 (Given - Provider: Sharmin Dodge RN - Comment: per MD, continue with 6u) it of insulin is expected to drop the gl ucose 20 mg/dL) BG 140 - 160 Give 1 unit BG 161 - 180 Give 2 units BG 181 - 200 Give 3 units BG 201 - 220 Give 4 units BG 221 - 240 Give 5 units BG greater than 2 1999 (Not Given - Provider: Sharmin Dodge RN - Reason: Order parameters not met)2005 (MAR Unhold - Provider: Admin Adt) 40, give 6 units and recheck BG [...] (HumaLOG;Admelog) (100 un it/mL) subcutaneous injection vial 2-12 Units (CANCELED) 0627 (Given - Provider: Zac Shaver RN - Comment: recheck > 240)0803 (Not Given - Provider: Ruth Barros RN - Reason: Order parameters not met)1131 (Given - Provider: Ruth Barros RN)1422 (Given - Provider: Ruth Barros RN) 2-12 Units, Subcutaneous, EVERY 4 HOURS SCHEDULED, First dose on 09/04/21 at 0800, Until Discontinued, CORRECTION BOLUS [2-12 Units] Resistant Sliding Scale (BG in mg/dL) Correction Factor 10 (1 1617 (Give n - Provider: Ruth Barros RN) unit of insulin is expected to drop the glucose 10 mg/dL) BG 140 - 160 Give 2 units BG 161 - 180 Give 4 units BG 181 - 200 Give 6 units BG 201 - 220 Give 8 units BG 221 - 240 Give 10 units BG greater th an 240, give 12 units and recheck BG in 2 hours. - If recheck BG is LESS than 240, give no insulin and resume schedule. - If recheck BG is GREATER than 240, give 12 units and repeat BG in 2 hours (no mo re than 3 times) & call for new insulin orders. DO NOT hold if NPO, unless specifically directed to do so by written order. Per Blood Glucose Monitoring Policy, re-check a BG of > 240 mg/dL in 2 hours, Routine insulin lispro (HumaLOG;Admelog) (100 un it/mL) subcutaneous injection vial 2-16 Units (CANCELED) 1752 (Given - Provider: Willy Barros RN - Comment: Discussed FSBG with iMrza Robbins DO. Dose given now as Q2 follow-up from 1600, in addition to 1999 dose per Mirza Robbins DO.)2105 (Given - Provider: Jodi Anaya RN) 0539 (Given - Provider: Jodi Anaya RN)0830 (Given - Provider: Hermelindo Yanez RN) 2-16 Units, Subcutaneous, EVERY 4 HOURS SCHEDULED, First dose (after last modification) on 09/04/21 at 2000, Until Discontinued, CORRECTION BOLUS [6-12 Units] Resistant Sliding Scale (BG in mg/dL 2353 (Given - Provider: Jodi Anaya RN) ) Correction Factor 10 (1 unit of insuli n is expected to drop the glucose 10 mg/dL) BG 140 - 160 Give 6 units BG 161 - 180 Give 8 units BG 181 - 200 Give 10 units BG 201 - 220 Give 12 units BG 221 - 240 Give 14 units BG greater than 240, give 16 units and recheck BG in 2 hours. - If recheck BG is LESS than 240, give no insulin and resume schedule. - If recheck BG is GREATER than 240, give 16 units and repeat BG in 2 hours (no more than 3 ti mes) & call for new insulin orders. DO NOT hold if NPO, unless specifically directed to do so by written order. Per Blood Glucose Monitoring Policy, re-check a BG of > 240 mg/dL in 2 hours, Routine insulin lispro (HumaLOG;Admelog) (100 un it/mL) subcutaneous injection vial 2-16 Units(Linked Group 2) 1228 (Given - Prov ider: Hermelindo Yanez, RN - Comment: BG 256) 2-16 Units, Subcutaneous, EVERY 4 HOURS SCHEDULED, First dose (after last modification) on Mon09/05/21 at 1200, Until Discontinued, CORRECTION BOLUS [6-12 Units] Very Resistant Sliding Scale (custom ) (BG in mg/dL) Correction Factor 10 (1 unit of insulin is expected to drop the glucose 5 mg/dL) BG 140 - 160 Give 6 units BG 161 - 180 Give 10 units BG 181 - 200 Give 14 units BG 201 - 220 Give 18 unit s BG 221 - 240 Give 22 units BG greater than 240, give 26 units and recheck BG in 2 hours. - If recheck BG is LESS than 240, give no insulin and resume schedule. - If recheck BG is GREATER than 240, giv e 26 units and repeat BG in 2 hours (no more than 3 times) & call for new insulin orders. DO NOT hold if NPO, unless specifically directed to do so by written order. Per Blood Glucose Monitoring Alfredo icy, re-check a BG of > 240 mg/dL in 2 hours, Routine ipratropium-albuteroL (Duoneb) 0.5 mg-3 mg(2.5 mg base)/3 mL nebulizer solution 3 mL (CANCELED) 1442 (Given - Provider: Juan Mohan RN)1634 (NOV Hold - Provider: Admin Adt - Reason: Transfer to a Procedural area)1999 (Not Given - Provider: Sharmin Dodge RN - Reason: Patient/family refused)2005 (NOV Unhold - Provider: Admin Adt) 0134 (Given - Provider: Sharmin Dodge RN)0800 (Not Given - Provider: Ruth Barros RN - Reason: Medication Discontinued) 3 mL, Nebulization, EVERY 6 HOURS, First dose (after last modification) on Mon09/03/21 at 1400, Until Discontinued, Routine ipratropium-albuteroL (Duoneb) 0.5 mg-3 mg(2.5 mg base)/3 mL nebulizer solution 3 mL 1129 (Given - Provider: Willy Barros RN)1618 (Given - Provider: Ruth Barros RN)1909 (Given - Provider: Marilia Corcoran, DEVAN)2348 (Given - Provider: Jodi Anaya, DEVAN) 0314 (Given - Provider: Jodi Anaya, RN)0900 (Given - Provider: Hermelindo Yanez, RN)1139 (Given - Provider: Hermelindo Yanez, RN) 3 mL, Nebulization, EVERY 4 HOURS SCHEDU LED, First dose (after last modification) on Mon09/04/21 at 1200, Until Discontinued, Routine lidocaine (Lidoderm) 5% patch 1 patch(Linked Group 3) 1430 (Not Given - Provider: uJan Mohan RN - Reason: See comment - Comment: Tast duplication)1634 (MAR Hold - Provider: Admin Adt - Reason: Transfer to a Procedural area)2005 (MAR Unhold - Provider: Admin Adt) 1430 (Not Given - Provider: Ruth Barros RN - Reason: Order parameters not met - Comment: 3 patches applied; see MAR for alternative order) 1 patch, Transdermal, EVERY 24 HOURS, Fi rst dose on Mon09/03/21 at 1430, Until Discontinued, Apply patch(es) for 12 hours, and then remove for 12 hours., Routine lidocaine (Lidoderm) 5% patch 3 patch(Linked Group 4) 1341 (Patch Applied - Provider: Juan Mohan RN)1634 (MAR Hold - Provider: Admin Adt - Reason: Transfer to a Procedural area)2005 (MAR Unhold - Provider: Admin Adt) 1448 (Patch Applied - Provider: Ruth Barros RN) 3 patch, Transdermal, EVERY 24 HOURS, Fi rst dose (after last modification) on Mon09/03/21 at 1430, Until Discontinued, Apply patch(es) for 12 hours, and then remove for 12 hours., Routine lidocaine (Lidoderm) topical patch REMOVAL(Linked Grou p 3) 1634 (MAR Hold - Provider: Admin Adt - Reason: Transfer to a Procedural area)2005 (MAR Unhold - Provider: Admin Adt) 0130 (Patch Removed - Provider: Sharmin Dodge RN) 0 130 (Patch Removed - Provider: Jodi Anaya, DEVAN) Transdermal, EVERY 24 HOURS, First dose on Mon09/04/21 at 0130, Until Discontinued, Remove lidocaine 5% patch lidocaine (Lidoderm) topical patch REMOVAL(Linked Grou p 4) 1634 (NOV Hold - Provider: Admin Adt - Reason: Transfer to a Procedural area)2005 (MAR Unhold - Provider: Admin Adt) 0530 (Patch Removed - Provider: Sharmin Dodge RN) 0 530 (Patch Removed - Provider: Jodi Anaya, DEVAN) Transdermal, EVERY 24 HOURS, First dose (after last modification) on 09/04/21 at 0530, Until Discontinued, Remove lidocaine 5% patch losartan (Cozaar) tablet 25 mg 0 901 (Given - Provider: Hermelindo Yanez, RN) 25 mg, Oral, DAILY, First dose on Sun at 0930, Until Discontinued, Routine magnesium oxide (Mag-Ox) tablet 400 mg 1230 (Given - Provider: Hermelindo Yanez, DEVAN) 400 mg, Oral, 2 TIMES DAILY, First dose on 09/05/21 at 1300, Until Discontinued, Administer 2 hours before or 4 hours after doxycycline, Routine magnesium sulfate 2 g in sterile water 50 mL infusion (COMPL ETED) 0343 (New Bag - Provider: Sharmin Dodge, DEVAN)0543 (Stopped - Provider: Sharmin Dodge, DEVAN) 2 g, Intravenous, ONCE, 1 dose, On Sat 1 11/05/20 at 0430, Administer over 120 Minutes metoprolol succinate XL (Toprol-XL) tablet 50 mg 1230 (Given - Provider: Hermelindo Yanez, DEVAN) 50 mg, Oral, DAILY, First dose on Sun at 1200, Until Discontinued, DO NOT CRUSH OR OPEN, Routine metoprolol tartrate (Lopressor) tablet 12.5 mg (CANCELED) 0820 (Given - Provider: Ruth Barros, DEVAN)1200 (Hold - Provider: Ruth Barros, DEVAN - Reason: Contraindicated - Comment: 88/61 (71))1757 (Given - Provider: Ruth Barros, DEVAN)2348 (Given - Provider: Jodi Anaya, DEVAN) 0541 (Given - Provider: Jodi Anaya, DEVAN) 12.5 mg, Oral, EVERY 6 HOURS SCHEDULED, First dose on 09/04/21 at 0815, Until Discontinued, Hold for SBP < 90, HR < 50, Routine nicotine (Nicoderm CQ) 7 mg/24 hr patch 7 mg(Linked Gr oup 5) 0911 (Patch Applied - Provider: Juan Mohan RN)1634 (NOV Hold - Provider: Admin Adt - Reason: Transfer to a Procedural area)2005 (NOV Unhold - Provider: Admin Adt) 0818 (Patch Applied - Provider: Ruth Barros RN) 0904 (Patch Applied - Provider: Hermelindo Yanez, DEVAN) 7 mg (1 patch), Transdermal, DAILY, Firs t dose on Mon09/02/21 at 1345, Until Discontinued, Apply new patch to nonhairy, clean, dry skin on the upper body or upper outer arm; each patch should be applied to a different site , Routine nicotine (NICODERM CQ) 7 mg/24 hr patch Patch Removal( Linked Group 5) 0900 (Patch Not Removed (add comment) - Provider: Juan Mohan RN - Comment: No patch)163 (NOV Hold - Provider: Admin Adt - Reason: Transfer to a Procedural area)2005 (NOV Unhold - Provider: Admin Adt) 0900 (Patch Removed - Provider: Ruth Barros RN - Comment: RUE) 09 (Patch Removed - Provider: Hermelindo Yanez, DEVAN) Transdermal, DAILY, First dose on Mon at 0900, Until Discontinued, Remove nicotine 7 mg/24 hr patch nicotine (NICODERM CQ) 7 mg/24 hr patch Patch Verifica tion(Linked Group 5) 0900 (Patch (dose and location) verified - Provider: Juan Mohan RN)163 (NOV Hold - Provider: Admin Adt - Reason: Transfer to a Procedural area)2005 (NOV Unhold - Provider: Admin Adt) 0900 (Patch (dose and location) verified - Provider: Ruth Barros RN - Comment: RUE x1)2100 (Patch (dose and location) verified - Provider: Jodi Anaya RN) 0900 (Patch (dose and location) verified - Provider: Hermelindo Yanez, DEVAN) Transdermal, 2 TIMES DAILY, First dose o n Mon09/03/21 at 0900, Until Discontinued, Verify nicotine 7 mg/24 hr patch. 2100 (Patch (dose and location) verified - Provider: Sharmin Dodge RN) pantoprazole (Protonix) injection 40 mg (CANCELED) 091 1 (Given - Provider: Juan Mohan RN)163 (NOV Hold - Provider: Admin Adt - Reason: Transfer to a Procedural area)2005 (NOV Unhold - Provider: Admin Adt)210 (Given - Provider: Sharmin Dodge RN) 0818 (Given - Provider: Ruth Barros RN) 40 mg, Intravenous, 2 TIMES DAILY, First dose (after last modification) on [place] 09/02/21 at 1830, Until Discontinued pantoprazole EC (Protonix) tablet 20 mg 20 mg, Oral, DAILY, First dose on Sun at 1330, Until Discontinued, DO NOT CRUSH OR OPEN, Routine pantoprazole EC (Protonix) tablet 40 mg (CANCELED) 09 (Given - Provider: Hermelindo Yanez RN) 40 mg, Oral, DAILY, First dose on Sun at 0900, Until Discontinued, DO NOT CRUSH OR OPEN, Routine predniSONE (Deltasone) tablet 40 mg 0935 (Given - Provider: Ruth Barros RN) 09 (Given - Provider: Hermelindo Yanez RN) 40 mg, Oral, DAILY, 5 doses, First dose on 09/04/21 at 0930, Last dose on 09/08/21 at 0900, Routine sodium chloride 0.9 % (flush) (BD PosiFlush Normal Celest[place] ine 0.9) flush 5 mL 0900 (Not Given - Provider: Juan Mohan RN - Reason: Contraindicated)163 (NOV Hold - Provider: Admin Adt - Reason: Transfer to a Procedural area)2005 (NOV Unhold - Provider: Admin Adt) 08 (Given - Provider: Ruth villela RN)2100 (Not Given - Provider: Jodi Anaya RN - Reason: See comment - Comment: given earlier) 0800 (Given - Provider: Hermelindo Yanez RN) 5 mL, Intravenous, 2 TIMES DAILY, First dose on [place] 09/02/21 at 1345, Until Discontinued, Routine 2100 (Not Given - Provider: Sharmin maynard RN - Reason: See comment - Comment: infusing) sodium chloride 0.9 % (flush) (BD PosiFlush Normal Cel[place] ine 0.9) flush 5 mL 0900 (Given - Provider: Juan Mohna RN)1634 (NOV Hold - Provider: Admin Adt - Reason: Transfer to a Procedural area)2005 (MAR Unhold - Provider: Admin Adt)2054 (Given - Provider: Sharmin Dodge RN) 0827 (Given - Provider: Ruth Barros RN)2099 (Not Given - Provider: Jodi Anaya RN - Reason: See comment - Comment: given earlier) 0800 (Given - Provider: Hermelindo Yanez RN) 5 mL, Intravenous, 2 TIMES DAILY, First dose on [place] 09/02/21 at 1345, Until Discontinued, Routine Continuous Medication Order 09/03/2021 09/04/2021 09/05/2021 heparin (porcine) 50 units/mL in sodium chloride 0.45% 500 mL infusion (CANCELED) 0000 (Rate/Dose Verify - Provider: Chelle Burrows RN)0200 (Rate/Dose Verify - Provider: Chelle Burrows RN)0300 (Canceled Entry - Provider: Chelle Burrows RN)0400 (Rate/Dose Verify - Provider: Chelle Burrows RN) 0-5,000 Units/hr (0-100 mL/hr), Intraven ous, CONTINUOUS, Starting on [place] 09/02/21 at 1345, Until 09/04/21 at 0726, BEGIN infusion at 1,000 units per hr (12 units/kg/hr). MAX INITIAL infusion rate is 1 0600 (Rate/Dose Verify - Provider: Chelle Burrows RN)1211 (Rate/Dose Change - Provider: Juan Mohan, DEVAN)1600 (Paused - Provider: Zaida Escalante RN)1634 (NOV Hold - Provider: Admin Adt - Reason: Transfer to a Procedural area) ,000 units/hr. Target Heparin UFH Level (anti-Xa activity) = 0.3 - 0.7 IU/mL Start adjustment schedule 6 hours after starting infusion. If Heparin UFH Level is: - less than 0.1 IU/mL, administer PRN lorri 2005 ([facility] Unhold - Provider: Admin Adt) us and increase rate by 350 units per hr (4 units/kg/hr) - 0.1 - 0.29 IU/mL, administer PRN bolus and increase rate by 150 units per hr (2 units/kg/hr) - 0.3 - 0.7 IU/mL, No Change - 0.71 - 0.85 IU/mL, decrease rate by 100 units per hr (1 uni ts/kg/hr) - 0.86 - 1.05 IU/mL, stop infusion for 30 minutes, then decrease rate by 150 units per hr (2 units/kg/hr) - Greater than 1.05 IU/mL, stop infusion for 6 0 minutes, then decrease rate by 250 uni ts per hour (3 units/kg/hr) Repeat Heparin UFH Level 6 hours after initiating heparin. Then 6 hours after each dose adjustment. When 2 consecutive Heparin UFH Lev el within target range of 0.3 - 0.7 IU/m L, change Heparin UFH Level to once every 24 hours with A.M. labs while on heparin. RN to order required Heparin UFH Level - Per Protocol, Routine nitroGLYcerin (200 mcg/mL) in dextrose 5% 250 mL infus ion 1634 ([facility] Hold - Provider: Admin Adt - Reason: Transfer to a Procedural area)2005 ([facility] Unhold - Provider: Admin Adt) 0-200 mcg/min (0-60 mL/hr), Intravenous, CONTINUOUS, Starting on [place] 09/02/21 at 1845, Until 09/05/21 at 1508, Titrate to resolution of chest pain. Start at 25 mcg/min and adjust by 25 mcg/min every 5 minutes. Do not exceed 200 mcg/min., Routine sodium chloride 0.9% infusion () 1929 (New Bag - Provider: Patricia Colindres, DEVAN)2300 (Stopped - Provider: Sharmin Dodge RN) 50 mL/hr, Intravenous, CONTINUOUS, Start ing on 09/03/21 at 1945, Until 09/03/21 at 2344, Recovery (Recovery-Hospital Unit) PRN Medication Order 09/03/2021 09/04/2021 09/05/2021 dextrose 10% infusion(Linked Group 6) 250 mL, at 1,000 mL/hr, Intravenous, KONSTANTIN RY 30 MIN PRN, Starting on 09/04/21 at 0608, Until 09/05/21 at 1508, For BG 50-70 mg/dL: Oral treatment preferred: [...] for the duration of the active insulin. fentaNYL (PF) (50 mcg/mL) injection 50 mcg () 0 109 (Given - Provider: Chelle Burrows RN)0317 (Given - Provider: Chelle Burrows RN)0423 (Given - Provider: Chelle Burrows RN)0710 (Given - Provider: Chelle Burrows, DEVAN)0816 (Given - Provider: Kylah Martin RN) 50 mcg, Intravenous, EVERY 1 HOUR PRN, S tarting on [place] 09/02/21 at 1747, Until 09/03/21 at 1746, Pain, If medication ordered subcutaneously, do not administer more than 2 mL as a single injection., Routine 1000 (Given - Provider: Juan Mohan RN)1306 (Given - Provider: Kylah Martin, DEVAN)1503 (Given - Provider: Kylah Martin, DEVAN)1634 (MAR Hold - Provider: Admin Adt - Reason: Transfer to a Procedural area)2005 (MAR Unhold - Provider: Admin Adt) fentaNYL (pf) (50 mcg/mL) multi-dose injection (CANCEL ED) 1619 (Given - Provider: Wenceslao Ledesma, DEVAN)1628 (Given - Provider: Wenceslao Ledesma, DEVAN)1642 (Given - Provider: Wenceslao Ledesma RN)1647 (Given - Provider: Wenceslao Ledesma RN)1651 (Given - Provider: Wenceslao Ledesma, DEVAN)1710 (Given - Provider: Wenceslao Ledesma, DEVAN) ONCE PRN, Starting on [place] 09/02/21 at 163 4, Until Mon09/03/21 at 1903, Cath (Intra-Procedure), Routine 1733 (Given - Provider: Wenceslao Ledesma RN )1748 (Given - Provider: Wenceslao Ledesma RN) fentaNYL (pf) (50 mcg/mL) multi-dose injection (CANCEL ED) 1633 (Given - Provider: Wenceslao Ledesma RN)1753 (Given - Provider: Wenceslao Ledesma RN)1825 (Given - Provider: Wenceslao Ledesma RN)1841 (Given - Provider: Malvin Castro)1902 (Given - Provider: Malvin Castro) ONCE PRN, Starting on Mon09/03/21 at 163 3, Until Mon09/03/21 at 1903, Intra- Operative (Intra-Procedure), Routine glucagon (Glucagen) (1 mg/mL) injection solution 1 mg(Linked Raj up 6) 1 mg, Intramuscular, EVERY 30 MIN PRN, S tarting on 09/04/21 at 0608, Until 09/05/21 at 1508, Low blood sugar, For BG 50-70 mg/dL: [...] duration of the active insulin., Routine glucose (GLUTOSE) 40% oral geL(Linked Group 6) 15-30 g, Buccal, EVERY 30 MIN PRN, Start ing on 09/04/21 at 0608, Until 09/05/21 at 1508, Low blood sugar, For BG 50-70 mg/dL: Oral treatment preferred: If able to drink, give 120 mL Juice or Re gular (not diet) soda OR If NPO, give 15 gram glucose 40% oral gel massaged into buccal mucosa OR if unconscious or uncooperative, give 25 gram (250 mL) Dextrose 10% IV over 15 minutes per protocol OR, if no IV access, 1 mg Glucagon IM. Fo r BG less than 50 mg/dL: Oral treatment preferred: If able to drink, give 240 mL Juice or Regular (not diet) soda OR If NPO, give 30 gram glucose 40% oral gel mas saged in buccal mucosa OR if unconscious or uncooperative, give 25 gram (250 mL) Dextrose 10% IV over 15 minutes per protocol OR, if no IV access, 1 mg Glucagon IM. Recheck BG in 30 minutes. May repea t juice/soda, gel, dextrose or glucagon once per episode. For persistent hypoglycemia, consider longer-acting treatment for the duration of the active insulin. 1 tube contains 15 grams of glucose (net weight of tube = 37.5 grams., Routine guaiFENesin (Robitussin) (20 mg/mL) oral liquid 200 mg (CANCELED) 1634 (NOV Hold - Provider: Admin Adt - Reason: Transfer to a Procedural area)2005 (MAR Unhold - Provider: Admin Adt) 0136 (Given - Provider: Sharmin Dodge RN)211 (Given - Provider: Jodi Anaya, DEVAN) 0314 (Given - Provider: Jodi Anaya, DEVAN) 200 mg, Oral, EVERY 4 HOURS PRN, Startin g on 09/03/21 at 1328, Until 09/05/21 at 1110, Cough, Maximum daily dose is 2400 mg, Routine heparin (porcine) (1,000 units/mL) injection 0-4,000 U nits (CANCELED) 1208 (Given - Provider: Juan Mohan, DEVAN)1634 (NOV Hold - Provider: Admin Adt - Reason: Transfer to a Procedural area)2005 (NOV Unhold - Provider: Admin Adt) 0-4,000 Units, Intravenous, BOLUS PER TAE PROTOCOL, Starting on [place] 09/02/21 at 1259, Until 09/04/21 at 0726, Per Protocol, START ADJUSTMENT SCHEDULE 6 HOURS AFTER STARTING INFUSION Heparin UF H Level between 0.1 - 0.29 IU/mL: Bolus 2,000 units Heparin UFH Level less than 0.1 IU/mL: Bolus 4,000 units, Routine heparin (porcine) (1,000 units/mL) injection (CANCELED ) 1652 (Given - Provider: Wenceslao Ledesma RN)1705 (Given - Provider: Wenceslao Ledesma RN)1805 (Given - Provider: Wenceslao Ledesma RN) ONCE PRN, Starting on Mon09/03/21 at 165 2, Until Mon09/03/21 at 1903, Cath (Intra-Procedure), Routine iohexoL (Omnipaque) (350 mg/mL) solution (CANCELED) 19 (Given - Provider: Rafi Barrett MD) ONCE PRN, Starting on Mon09/03/21 at 190 2, Until Mon09/03/21 at 1903, Cath (Intra-Procedure), Routine ipratropium-albuteroL (Duoneb) 0.5 mg-3 mg(2.5 mg base)/3 mL nebulizer solution 3 mL (CANCELED) 0127 (Given - Provider: Chelle Burrows, DEVAN )0725 (Given - Provider: Marie Rodriges, RT) 3 mL, Nebulization, EVERY 4 HOURS PRN, S tarting on [place] 09/02/21 at 1251, Until 09/03/21 at 0852, Wheezing, Routine ipratropium-albuteroL (Duoneb) 0.5 mg-3 mg(2.5 mg base)/3 mL nebulizer solution 3 mL 0835 (Given - Provider: Willy Barros RN)1122 (Not Given - Provider: Ruth Barros RN - Reason: Entered in Error)1128 (Not Given - Provider: Ruth Barros RN - Reason: Entered in Error) 3 mL, Nebulization, EVERY 2 HOURS PRN, S tarting on 09/04/21 at 0834, Until 09/05/21 at 1508, Wheezing, Routine lidocaine (Xylocaine) 1% (10 mg/mL) injection 3 mg 163 4 (NOV Hold - Provider: Admin Adt - Reason: Transfer to a Procedural area)2005 (NOV Unhold - Provider: Admin Adt) 3 mg (0.3 mL), Subcutaneous, ONCE PRN, 1 dose, Starting on [place] 09/02/21 at 1246, Until 09/05/21 at 1508, for discomfort with PIV insertion, Routine midazolam (pf) (Versed) (1 mg/mL) injection 1 mg (CAN ELED) 1645 (Given - Provider: Wenceslao Ledesma RN) 1 mg, Intravenous, EVERY 1 HOUR PRN, 2 d oses, Starting on [place] 09/02/21 at 1721, Until 09/03/21 at 1903, For sheath removal, May repeat once while in Cath Recovery Unit. , Cath (Recovery-Hospital Unit), Routine midazolam (pf) (Versed) (1 mg/mL) multi-dose injection (CANCELED) 1618 (Given - Provider: Wenceslao Ledesma RN)1651 (Given - Provider: Wenceslao Ledesma, DEVAN)1716 (Given - Provider: Wenceslao Ledesma RN) ONCE PRN, Starting on Mon09/03/21 at 161 8, Until Mon09/03/21 at 1903, Cath (Intra-Procedure), Routine nitroGLYcerin (Nitrostat) disintegrating tablet 0.4 mg 1634 (NOV Hold - Provider: Admin Adt - Reason: Transfer to a Procedural area)2005 (NOV Unhold - Provider: Admin Adt) 0.4 mg, Sublingual, EVERY 5 MIN PRN, Sta rting on [place] 09/02/21 at 1246, Until 09/05/21 at 1508, Chest pain, May repeat every 5 minutes for a total of three doses. Notify provider if chest pain not reli eved with nitroglycerin. Do not administ er nitroglycerin if the patient has received or taken phosphodiesterase (PDE-5) inhibitors such as sildenafil, tadalafil or vardenafil within the last 24 to 72 hours., Routine nitroGLYcerin 100 mcg/mL intracoronary dilution (CANCE LED) 1648 (Given - Provider: Humza Chin MD)1701 (Given - Provider: Humza Chin MD)1828 (Given - Provider: Humza Chin MD) ONCE PRN, Starting on Mon09/03/21 at 164 8, Until Mon09/03/21 at 1903, Cath (Intra-Procedure), Routine oxyCODONE (Roxicodone) tablet 10 mg (CANCELED) 0144 (G iven - Provider: Chelle Burrows, RN)0711 (Given - Provider: Chelle Burrows, RN)1208 (Given - Provider: Juan Mohan, DEVAN)1634 (NOV Hold - Provider: Admin Adt - Reason: Transfer to a Procedural area)2005 (NOV Unhold - Provider: Admin Adt) 0136 (Given - Provider: Sharmin Dodge, DEVAN)0643 (Given - Provider: Sharmin Dodge, DEVAN)1121 (Given - Provider: Ruth Barros, DEVAN) 10 mg, Oral, EVERY 4 HOURS PRN, Starting on [place] 09/02/21 at 1722, Until 09/04/21 at 1345, Pain, Routine 205 (Given - Provider: Sharmin Dodge, DEVAN) oxyCODONE (Roxicodone) tablet 10 mg 1757 (Given - Provider: Ruth Barros RN)2349 (Given - Provider: Jodi Anaya, RN) 0540 (Given - Provider: Jodi Anaya, RN)1137 (Given - Provider: Hermelindo Yanez, DEVAN) 10 mg, Oral, EVERY 6 HOURS PRN, Starting on 09/04/21 at 1400, Until 09/05/21 at 1508, Pain, Routine perflutren lipid microspheres (Definity) injection 1.2 mL (COMPL ETED) 1050 (Given - Provider: Shimon García) 1.2 mL, Intravenous, ONCE PRN, 1 dose, S tarting on 09/05/21 at 1049, Until 09/05/21 at 1050, Other, Routine potassium chloride ER (K-Dur/Klor-Con) tablet 20 mEq(L inked Group 7) 0141 (See Alternative - Provider: Chelle Burrows RN)1633 ([facility] Hold - Provider: Admin Adt - Reason: Transfer to a Procedural area)2005 ([facility] Unhold - Provider: Admin Adt) 20 mEq, Oral, EVERY 4 HOURS PRN, Startin g on [place] 09/02/21 at 2037, Until 09/05/21 at 1508, hypokalemia, Administer for serum potassium (mMol/L) of 3.9 - 4 See instructions for Potassium Protocol in online policies., Routine potassium chloride ER (K-Dur/Klor-Con) tablet 40 mEq(L inked Group 7) 014 (Given - Provider: Chelle Burrows RN)1633 ([facility] Hold - Provider: Admin Adt - Reason: Transfer to a Procedural area)2005 ([facility] Unhold - Provider: Admin Adt) 40 mEq, Oral, EVERY 4 HOURS PRN, Startin g on [place] 09/02/21 at 2037, Until 09/05/21 at 1508, hypokalemia, Administer for serum potassium (mMol/L) of 3.6 - 3.8 See instructions for Potassium Protocol in online policies., Routine sodium chloride 0.9 % (flush) (BD PosiFlush Normal Celest[place] ine 0.9) flush 5-20 mL 1633 ([facility] Hold - Provider: Admin Adt - Reason: Transfer to a Procedural area)2005 ([facility] Unhold - Provider: Admin Adt) 5-20 mL, Intravenous, EVERY 1 MIN PRN, S tarting on [place] 09/02/21 at 1246, Until 09/05/21 at 1508, flush, Flush pertains to all indwelling lines. Flush per protocol found in the job aid using the link provided on this medication record., Routine sodium chloride 0.9 % (flush) (BD PosiFlush Normal Cel[place] ine 0.9) flush 5-20 mL 1633 ([facility] Hold - Provider: Admin Adt - Reason: Transfer to a Procedural area)2005 ([facility] Unhold - Provider: Admin Adt) 5-20 mL, Intravenous, EVERY 1 MIN PRN, S tarting on [facility] 09/02/21 at 1246, Until [place] 09/05/21 at 1508, flush, Flush pertains to all indwelling lines. Flush per protocol found in the job aid using the link provided on this medication record., Routine verapamiL (Isoptin) (2.5 mg/mL) injection (CANCELED) 1 648 (Given - Provider: Humza Chin MD) ONCE PRN, Starting on Mon09/03/21 at 164 8, Until Mon09/03/21 at 1903, Administer over 2 Minutes, Cath (Intra-Procedure) Linked Groups Order Group 1: gabapentin (Neurontin) capsule 600 mgJump to med 600 mg, Oral, USER SPECIFIED (2 times pe r day), First dose on [facility] 09/02/21 at 1415, Until Discontinued, Routine And gabapentin (Neurontin) capsule 1,200 mgJump to med 1,200 mg, Oral, NIGHTLY, First dose on 09/02/21 at 2100, Until Discontinued, Routine Group 2: POCT Fingerstick Glucose (CANCELED) Routine, EVERY 4 HOURS, First occurrence on [place] 09/05/21 at 1200, Until Specified
Consider choosing EVERY 4 HOURS [...] lispro (HumaLOG;Admelog) (100 unit/mL) subcutaneous injection vial 2-16 UnitsJump to med 2-16 Units, Subcutaneous, EVERY 4 HOURS SCHEDULED, First dose (after last modification) on [place] 09/05/21 at 1200, Until Discontinued
CORRECTION BOLUS [6-12 Units] Very Resistant Slid ing Scale (custom) (BG in mg/dL) Correct ion Factor 10 (1 unit of insulin is expected to drop the glucose 5 mg/dL) BG 140 - 160 Give 6 units BG 161 - 180 Give 10 units & nbsp;BG 181 - 200 Give 14 units BG 201 - 220 Give 18 units BG 221 - 240 Give 22 units BG greater than 240, give 26 units and recheck BG in 2 hours. - If recheck B G is LESS than 240, give no insulin and resume schedule. - If recheck BG is GREATER than 240, give 26 units and repeat BG in 2 hours (no more than 3 times) & call fo r new insulin orders. DO NOT hold if NPO, unless specifically directed to do so by written order. Per Blood Glucose Monitoring Policy, re-check a BG of > 240 mg/dL in 2 hours
Routine Group 3: lidocaine (Lidoderm) 5% patch 1 patchJump to med 1 patch, Transdermal, EVERY 24 HOURS, Fi rst dose on Mon09/03/21 at 1430, Until Discontinued
Apply patch(es) for 12 hours, and then remove for 12 hours.
Routine And lidocaine (Lidoderm) topical patch REMOVALJump to med Transdermal, EVERY 24 HOURS, First dose on 09/04/21 at 0130, Until Discontinued
Remove lidocaine 5% patch
Group 4: lidocaine (Lidoderm) 5% patch 3 patchJump to med 3 patch, Transdermal, EVERY 24 HOURS, Fi rst dose (after last modification) on Mon09/03/21 at 1430, Until Discontinued
Apply patch(es) for 12 hours, and then remove for 12 hours.
Routine And lidocaine (Lidoderm) topical patch REMOVALJump to med Transdermal, EVERY 24 HOURS, First dose (after last modification) on 09/04/21 at 0530, Until Discontinued
Remove lidocaine 5% patch
Group 5: nicotine (Nicoderm CQ) 7 mg/24 hr patch 7 mgJump to med 7 mg (1 patch), Transdermal, DAILY, Firs t dose on [place] 09/02/21 at 1345, Until Discontinued
Apply new patch to nonhairy, clean, dry skin on the upper body or upper outer arm; each patch should be applied to a different site
Routine And nicotine (NICODERM CQ) 7 mg/24 hr patch Patch VerificationJump to med Transdermal, 2 TIMES DAILY, First dose o n Mon09/03/21 at 0900, Until Discontinued
Verify nicotine 7 mg/24 hr patch.
And nicotine (NICODERM CQ) 7 mg/24 hr patch Patch RemovalJump to med Transdermal, DAILY, First dose on Mon at 0900, Until Discontinued
Remove nicotine 7 mg/24 hr patch
Group 6: glucose (GLUTOSE) 40% oral geLJump to med 15-30 g, Buccal, EVERY 30 MIN PRN, Start ing on 09/04/21 at 0608, Until 09/05/21 at 1508, Low blood sugar
For BG 50-70 mg/dL: Oral treatment preferred: If able to drink, give 1 20 mL Juice or Regular (not diet) soda O R If NPO, give 15 gram glucose 40% oral gel massaged into buccal mucosa OR if unconscious or uncooperative, give 25 gram (250 mL) Dextrose 10% I V over 15 minutes per protocol OR, if no IV access, 1 mg Glucagon IM. For BG less than 50 mg/dL: Oral treatment preferred: If able to drink, give 240 mL Juice or Regular (n ot diet) soda OR If NPO, give 30 gram&nb sp;glucose 40% oral gel massaged in buccal mucosa OR if unconscious or uncooperative, give 25 gram (250 mL) Dextrose 10% IV over 15 minutes per&n bsp;protocol OR, if no IV access, 1 mg G lucagon IM. Recheck BG in 30 minutes. May repeat juice/soda, gel, dextrose or glucagon once per episode. For persistent hypoglycemia, consider longer-acting sohail atment for the duration of the active insulin. 1 tube contains 15 grams of glucose (net weight of tube = 37.5 grams.
Routine Or dextrose 10% infusionJump to med 250 mL, at 1,000 mL/hr, Intravenous, KONSTANTIN RY 30 MIN PRN, Starting on 09/04/21 at 0608, Until 09/05/21 at 1508
For BG 50-70 mg/dL: Oral treatment preferred: If able to drink, give&nbs p;120 mL Juice or Regular (not diet) sod a OR If NPO, give 15 gram glucose 40% oral gel massaged into buccal mucosa OR if unconscious or uncooperative, give 25 gram (250 mL) Dextrose 10 % IV over 15 minutes per protocol O [...] mL) Dextrose 10% IV over 15 minutes per&am p;nbsp;protocol OR, if no IV access, 1 m g Glucagon IM. Recheck BG in 30 minutes. May repeat juice/soda, gel, dextrose or glucagon once per episode. For persiste nt hypoglycemia, consider longer-acting treatment for the duration of the active insulin.
Or glucagon (Glucagen) (1 mg/mL) injection solution 1 mgJump to med 1 mg, Intramuscular, EVERY 30 MIN PRN, S tarting on 09/04/21 at 0608, Until 09/05/21 at 1508, Low blood sugar
For BG 50-70 mg/dL: Oral treatment preferred: If able to drink, give&nb sp;120 mL Juice or Regular (not diet) so da OR If NPO, give 15 gram glucose 40% oral gel massaged into buccal mucosa OR if unconscious or uncooperative, give 25 gram (250 mL) Dextrose 1 0% IV over 15 minutes per protocol OR, if no IV access, 1 mg Glucagon IM. For BG less than 50 mg/dL: Oral treatment preferred: If able to drink, give 240 mL Juice or Regula r (not diet) soda OR If NPO, give 30 gra m glucose 40% oral gel massaged in buccal mucosa OR if unconscious or uncooperative, give 25 gram (250 mL) Dextrose 10% IV over 15 minutes per&a mp;nbsp;protocol OR, if no IV access, 1 mg Glucagon IM. Recheck BG in 30 minutes. May repeat juice/soda, gel, dextrose or glucagon once per episode. For persist ent hypoglycemia, consider longer-acting treatment for the duration of the active insulin.
Routine Group 7: potassium chloride ER (K-Dur/Klor-Con) tablet 20 mEqJump to med 20 mEq, Oral, EVERY 4 HOURS PRN, Startin g on Toya 09/02/21 at 2036, Until 09/05/21 at 1508, hypokalemia
Administer for serum potassium (mMol/L) of 3.9 - 4 See instructions for Potassium Protocol in online policies.
Routine Or potassium chloride ER (K-Dur/Klor-Con) tablet 40 mEqJump to med 40 mEq, Oral, EVERY 4 HOURS PRN, Startin g on Toya 09/02/21 at 2036, Until 09/05/21 at 1508, hypokalemia
Administer for serum potassium (mMol/L) of 3.6 - 3.8 See instructions for Potassium Protocol in online policies.
Routine documented in this encounter Care Teams Director Of Institutional Research Relationship Specialty Start Date End Date Valentin Parekh MD PCP - General Family Medicine 08/06/[address] [place] [phone] documented as of this encounter
--- OUTSIDE RECORDS SUMMARY | 2022-08-14 18:37 | XMS_ITS | Encounter Summary ---
:1975 [place] [address] Care Team Providers Name Role Phone Valentin Parekh MD Primary Care Provider Encounter Details Date Type Department Care Team Description 09/14/2021 External Results Emergency Department [facility] [place] [address] Social History Tobacco Use Types Packs/Day [...] 08/22/2022 Office Visit Cardiology Tameka Neal MD [facility] [place], [place] [address] (Wo rk) documented as of this encounter Procedures Procedure Name Priority Date/Time Associated Diagnosis Comme nts ECG SCAN Routine 09/14/2021 Results for thi s procedure are in the resu lts section. documented in this encounter Results Scan Doc: ECG (09/14/2021) Narrative This result has an attachment that is no t available. Historical Provider MD CALVILLO MGR SCAN EXT ORDR/RSLT documented in this encounter Visit Diagnoses Not on filedocumented in this encounter Care Teams Risk Control Analyst Relationship Specialty Start Date End Date Valentin Parekh MD PCP - General Family Medicine 08/06/21 [address] [place] [phone] documented as of this encounter
--- OUTSIDE RECORDS SUMMARY | 2022-08-14 18:37 | XMS_ITS | Encounter Summary ---
:1975 [place] [address] Care Team Providers Name Role Phone Valentin Parekh MD Primary Care Provider Encounter Details Date Type Department Care Team Description 09/05/2021 Telephone Cardiology Mirza Robbins [facility] [place] [address] GENERAL INTERNAL MEDICINE [phone] [place], [place] [address] (Wo rk) Social History Tobacco [...] 08/22/2022 Office Visit Cardiology Tameka Neal MD [facility] [address] [place], [place] [address] (Wo rk) documented as of this encounter Visit Diagnoses Not on filedocumented in this encounter Care Teams Box Closing Machine Operator Relationship Specialty Start Date End Date Valentin Parekh MD PCP - General Family Medicine 08/06/[address] [place] [phone] documented as of this encounter
--- OUTSIDE RECORDS SUMMARY | 2022-08-14 18:37 | XMS_ITS | Encounter Summary ---
:1975 [place] [address] Care Team Providers Name Role Phone Valentin Parekh MD Primary Care Provider Reason for Referral Consultation (Routine) - Closed Specialty Diagnoses / Referred By Contact Referred To Contact Procedures Cardiac Rehabilitation Diagnoses Non-ST elevation myocardial infarction (NSTEMI) Serafin Lam Cardia c Rehab, MD [address] [place] CARDIOLOGY DEPT [id number] [place] [phone] Referral ID Status Reason Start Date Expiration Date Visits V isits Requested Authorized [id number] Closed Consult, 09/13/2021 03/12/2022 36 36 Test & Treat Encounter Details Date Type Department Care Team Description 09/13/2021 Telephone Cardiac Rehab Jeanine Zhou, [place] [address] Social History Tobacco Use Types Packs/Day Years Used Date Smoking Tobacco: Every Day Cigarettes 0.5 Smokeless Tobacco: Never Alcohol Use Standard Drinks/Week Comments Yes 0 (1 standard drink = 0.6 oz pure alcoho l) occasional Sex Assigned at Date Recorded Not on file documented as of this encounter Miscellaneous Notes Telephone Encounter - Amelia Albert RN - 09/13/2021 2:27 PM EST Patient discharged over the weekend with NSTEMI, PCI. I called December to discuss outpatient cardiac rehab. She would prefer going to [facility] as it is easier for her to get a ride. She stated that she is having a lot of dizziness. She has not yet heard about Cardiology f/u. I will connect w/[facility] to see if she is on their radar for scheduling. documented in this encounter Plan of Treatment Upcoming Encounters Date Type Specialty Care Team Description 08/22/2022 Appointment Cardiology 08/22/2022 Laboratory Appointment Lab 08/22/2022 Office Visit Cardiology Tameka Neal MD [facility] [address] [place], [place] [address] (Wo rk) Scheduled Referrals Name Type Priority Associated Diagnoses Order S chedule Referral to Outpatient Referral Routine Non-ST elevation Orde red: Cardiac Rehab myocardial 09/13/2021 infarction (NSTEMI) documented as of this encounter Visit Diagnoses Diagnosis Non-ST elevation myocardial infarction ( NSTEMI) Acute myocardial infarction, subendocard ial infarction, episode of care unspecified documented in this encounter Care Teams Press Operator Heavy Duty Relationship Specialty Start Date End Date Valentin Parekh MD PCP - General Family Medicine 08/06/21 [address] [place] [phone] documented as of this encounter
--- OUTSIDE RECORDS SUMMARY | 2022-08-14 18:38 | XMS_ITS | Encounter Summary ---
:1975 Author Organization [employer] [place] [address] Care Team Providers Name Role Phone Valentin Parekh MD Primary Care Provider Encounter Details Date Type Department Care Team Description 09/02/2021 External Results Non-Invasive Cardiology Lab Mar y None [facility] [place] [place] [address] Social History Tobacco Use Types Packs/Day Years Used Date Smoking Tobacco: Every Day Cigarettes 0.5 Alcohol Use Standard Drinks/Week Comments Yes 0 (1 standard drink = 0.6 oz pure alcoho l) occasional Sex Assigned at Date Recorded Not on file documented as of this encounter Plan of Treatment Upcoming Encounters Date Type Specialty Care Team Description 08/22/2022 Appointment Cardiology 08/22/2022 Laboratory Appointment Lab 08/22/2022 Office Visit Cardiology [facility] [place] [place] [address] (Wo rk) documented as of this encounter Procedures Procedure Name Priority Date/Time Associated Diagnosis Comme nts ECHO SCAN (SCAN) Routine 08/31/2021 Results for this procedure are in the resu lts section. documented in this encounter Results Scan Doc: Echo (08/31/2021) Anatomical Region Laterality Modality Cardiac Other Narrative This result has an attachment that is no t available. None MED[facility] MGR SCAN EXT ORDR/RSLT documented in this encounter Visit Diagnoses Not on filedocumented in this encounter Care Teams Radial Drill Press Set Up Operator Relationship Specialty Start Date End Date Valentin Parekh MD PCP - General Family Medicine 08/06/21 [address] [place] [phone] documented as of this encounter
--- OUTSIDE RECORDS SUMMARY | 2022-08-14 18:38 | XMS_ITS | Encounter Summary ---
:1975 Author [place] [address] Care Team Providers Name Role Phone Valentin Parekh MD Primary Care Provider Reason for Visit Auth/Cert Specialty Diagnoses / Procedures Referred By Contact Refer red To Contact Diagnoses NSTEMI (non-ST elevated myocardial infarction) Elevated troponin Referral ID Status Reason Start Date Expiration Date Visits Requ ested Visits Authorized [id number] 1 1 Encounter Details Date Type Department Care Team Description 09/02/2021 Surgery Coil Rewind Machine Operator Rafi Li, CARDIAC CATHETERIZATION [facility] [place] [address] CARDIOLOGY [phone] [place], [place] [address] (Wo rk) Social History Tobacco [...] Sign Reading Time Taken Comments Blood Pressure 108/66 09/02/2021 2:33 PM EST Pulse 95 09/02/2021 6:00 PM EST Temperature 37.4 ??C (99.3 ??F) 09/02/2021 5:22 PM EST Respiratory Rate 25 09/02/2021 6:00 PM EST Oxygen Saturation 96% 09/02/2021 6:00 PM EST Inhaled Oxygen Concentration - - Weight 82.7 kg (182 lb 5.1 oz) 09/02/2021 12:29 PM EST Height 162.6 cm (5' 4) 09/02/2021 12:29 PM EST Body Mass Index 29.97 09/02/2021 12:29 PM EST documented in this encounter Discharge Summaries Serafin Lam MD - 09/05/2021 1:08 PM EST Images from the original note were not included. Patient Name: Aracelis Monique Patient Age: 46 y.o. Language: Gibraltarian Race: White Ethnicity: Not nor Admit date: [...] PCP Contact Information: Valentin Parekh MD [address] [facility] / [place] [id number] Pending Studies and Lab Data: none Discharge [...] of her symptoms decided to present to [facility] on 08/30. ?? At [facility], patient was tachycardic to 103 though [...] EMILEE to RCA Patient initially presented to [facility] ED with chest pain on 08/30 PM, was found to have elevated troponin and T wave inversions on EKG, with apical hypokinesis on echo. She was stabilized with nitroglycerin was started on DAPT and heparin drip, which was transitioned to therapeutic Lovenox prior to transfer. On 09/02 she was transferred to [facility], ASA/Plavix/Lovenox was continued. She was taken to the Coil Rewind Machine Operator where she was found to have discrete, [...] the next day 09/03 she returnedto the Coil Rewind Machine Operator, where EMILEE was placed distal RCA lesion. [...] OSH - ferritin 207, Tsat 11 at [facility] - started [...] PLATELET 347 358* -- 432* Recent Labs 09/05/21 04009/04/21 02409/03/2139909/03/214409/02/21 17409/02/21 1330 NA 139 140 -- 141 < [...] in this interval not displayed. Recent Labs 09/05/21 04009/03/214409/02/21173909/02/21 1330 BILITOT <0.2* 0.3 0.2 <0.2* BILIDIR [...] Procedure Component Value Units Date/Time COVID-19 PCR [[id number]] Collected: 09/02/21 1301 Lab Status: Final result [...] using the Simplexa COVID-19 Direct Assay by [employer] as authorized by the FDA issued Emergency Use Authorization (EUA). This assay is intended for In-vitro Diagnostic (IVD) use with nasopharyngeal swabs collected from individuals meeting the [facility] criteria for testing. The assay is performed based on the instructions for use and additional guidance provided by the FDA. Testing is performed in the Microbiology Laboratory within the Department of Pathology and Laboratory Medicine at [facility], certified under the Clinical Laboratory [...] fact sheets at the following FDA website: https://www.fda.gov/medical-devices/qunadblzeaj-ronuzsz-4322-zusrb-11-hctxgroaf- fgw-ntiwgahvtqjnib-wwvnvns-devices/fqmct-lqzmkuriudk-uytj SARS-CoV-2 Source MANAGER RADIO Swab Imaging: Results for orders placed or performed during the hospital encounter of 09/02/21 XR Chest One View (Exam End: 09/02/2021 5:45 PM) Impression Pulmonary vascular congestion. Wendover-Tavia catheter tip at the right main pulmonary artery. Radiopaque marker of IABP catheter at the aortic knob. Thank you for letting us participate in the care of this patient. If you are a health care provider and have any questions regarding this report, please contact the number below. For patients who have questions please contact the health child caregiver that requested your imaging first. Chest One View (Exam End: 09/04/2021 9:40 AM) Impression Interval removal of Wendover-Tavia catheter. Interval improvement in prominence of persistent [...] who have questions please contact the health child caregiver that requested your imaging first. 09/03/21: Rhythm: [...] flow was normal and was via the tyonek vessel. The mid segment of the RCA [...] appointments: During 8am-5pm Monday through Monday call [phone] to speak with a nurse in the cardiology clinic All other times call [phone] and ask to speak to the mental health nurse practitioner squadron worker. What activities can you do, and what [...] the hospital? Serafin Lam MD - Attending Health Information Assistant Oscar Saha MD - Auditor Tax Ariel Rush MD, Obaida Dairi, DO - Resident Physicians When do I see my doctors next? No future appointments. You will need to follow up with your PCP (Valentin Parekh MD at [phone]) within 1 week of discharge - Please call to schedule an appointment within 2 weeks. You will need to follow up with your Health Information Assistant within 1 month of discharge - We will call you when this is scheduled. For questions regarding issues relating to your hospitalization on the Cardiology Service, please contact your inpatient physician through the [facility] Surgical [facility] [phone] and ask for pager #[phone]. Issues after hours and on weekends will be handled by the Cardiology staff on-call. General Instructions None Inpatient Provider Contact Information: For questions regarding this document or issues relating to this hospitalization on the Medical Service, please contact your inpatient physician through the [facility] . Issues after hours and on weekends [...] appointments: During 8am-5pm Monday through Monday call [phone] to speak with a nurse in the cardiology clinic All other times call [phone] and ask to speak to the mental health nurse practitioner squadron worker. What activities can you do, and what [...] the hospital? Serafin Lam MD - Attending Health Information Assistant Oscar Saha MD - Auditor Tax Ariel Rush MD, Mirza Robbins DO - Resident Physicians When do I see my doctors next? No future appointments. You will need to follow up with your PCP (Valentin Parekh MD at [phone]) within 1 week of discharge - Please call to schedule an appointment within 2 weeks. You will need to follow up with your Health Information Assistant within 1 month of discharge - We will call you when this is scheduled. For questions regarding issues relating to your hospitalization on the Cardiology Service, please contact your inpatient physician through the [facility] [phone] and ask for pager #[phone]. Issues after hours and on weekends will [...] Take 3 tablets by 30 tablet 1 09/05/2021/03/2022 (Tylenol) 325 mg mouth every 8 hours. [...] and we discussed follow up with a Health Information Assistant. All questions answered and patient appreciative of [...] Martines. Xiang Peters DO Endocrinology Fellow Pager [phone] I have been in the patient's care [...] Birthdate: 1975 Admit date: 09/02/2021 Attending Physician: eSrafin Lam MD Pt remains on RA and [...] pain on opiate therapy whowas transferred from [facility] for NSTEMI (type I) found to have significant complex disease of the RCA and LAD with severely elevated LVEDP. ?Admitted to the ICU on 09/02 because she developed recurrent ischemic chest pain and flash pulmonary edema, presumed due to ischemia, and was taken emergently back to the matlab developer for IABP placement. After aggressive diuresis and [...] denies Precautions/Special Considerations: Code Status: Full Code, [place] precautions , Room air, On telemetry Mobility [...] the socket.?? No deformity noted by this instructional writer to pt's L shoulder, RN aware or [...] in this evaluation. Time IN / OUT: 7553-4087 Total Minutes, Physical Therapy: 13 Billing Code: arti Bhatt PT, DPT Pager: [phone] Physical Therapy Inpatient Rehabilitation Department Serafin Lam [...] on opiate therapy who was transferred from [facility] for NSTEMI (type I) found to have significant complex disease of the RCA and LAD with severely elevated LVEDP. ?? Admitted to the ICU on 09/02 because she developed recurrent ischemic chest pain and flash pulmonary edema, presumed due to ischemia, and was taken emergently back to the matlab developer for IABP placement. After aggressive diuresis and [...] 347 358* -- 432* Chemistry: Recent Labs 09/05/2140109/04/2124609/03/2139909/03/214409/02/21220409/02/21173909/02/21 1330 NA 139 140 -- 141 -- [...] in this interval not displayed. Recent Labs 09/05/2140109/04/2124609/03/214409/02/21173909/02/21 1330 CALCIUM 9.5 8.9 8.6 < > 8.4* MAGNESIUM 0.79 0.89 1.16* < > 0.69 PHOS -- -- -- -- 3.3 < > = values in this interval not displayed. LFT's: Recent Labs 09/05/2140109/03/214409/02/21173909/02/21 1330 BILITOT <0.2* 0.3 [...] 09/02/2021 5:45 PM) Impression Pulmonary vascular congestion. Wendover-Tavia catheter tip at the right main pulmonary artery. Radiopaque marker of IABP catheter at the aortic knob. Thank you for letting us participate in the care of this patient. If you are a health care provider and have any questions regarding this report, please contact the number below. For patients who have questions please contact the health child caregiver that requested your imaging first. Chest One View (Exam End: 09/04/2021 9:40 AM) Impression Interval removal of Wendover-Tavia catheter. Interval improvement in prominence of persistent [...] who have questions please contact the health child caregiver that requested your imaging first. 09/03/21: SUMMARY: [...] is no pericardial effusion. Assessment & Plan: rAacelis Monique is a 46 y.o. female with a history of obesity (BMI 31), HTN, HLD, DM2 on insulin, ASCVD, chronic pain on opiate therapy who was transferred from [facility] for NSTEMI (type I) found to have significant complex disease of the RCA and LAD with severely elevated LVEDP. ?? Admitted to the ICU on 09/02 because she developed recurrent ischemic chest pain and flash pulmonary edema, presumed due to ischemia, and was taken emergently back to the matlab developer for IABP placement. 09/05: After aggressive diuresis [...] OSH - ferritin 207, Tsat 11 at [facility] - started [...] Rush. Serafin Lam MD, MPH, RPVI, FACC, [facility] Pager [phone] Cardiovascular Machine WelderCertified Neurodiagnostic Technologisthotel reservation [place] [address] Ruth Barros RN - 09/04/2021 4:52 PM [...] Dr Nena Chin MD PGY-7 Interventional Cardiology [facility] Serafin Lam MD - 09/04/2021 9:53 AM [...] on opiate therapy who was transferred from [facility] for NSTEMI (type I) found to have significant complex disease of the RCA and LAD with severely elevated LVEDP. ?? Admitted to the ICU on 09/02 because she developed recurrent ischemic chest pain and flash pulmonary edema, presumed due to ischemia, and was taken emergently back to the matlab developer for IABP placement. After aggressive diuresis and now s/p PCI to the RCA on 09/04, patient transferred back to the CSCU. ?? 24 Hour Events/Subjective: - s/p PCI to the RCA on the evening of 09/04; AAOx4 - Continues to have productive cough and significant expiratory wheezes, on 2 L ND - Reports pleuritic chest pain as well; [...] BID Continuous Infusions: ??? nitroGLYcerin Stopped (09/02/21 1845) [...] orientated, no-focal deficits Laboratory: CBC: Recent Labs 09/04/2124609/03/21203509/03/214409/02/21 174 WBC 9.3 -- 12.1* 11.6* HGB 9.4* 9.5* 9.7* 9.3* PLATELET 358* -- 432* 428* Chemistry: Recent Labs 09/04/2124609/03/21 0400 09/03/215 09/02/21220409/02/21173909/02/21 1330 NA 140 -- 141 -- 140 [...] in this interval not displayed. Recent Labs 09/04/2124609/03/214409/02/21 17409/02/21 1330 CALCIUM 8.9 8.6 8.5 8.5 8.4* MAGNESIUM 0.89 1.16* 0.65* 0.69 PHOS -- -- -- 3.3 LFT's: Recent Labs 09/03/214409/02/21173909/02/21 1330 BILITOT 0.3 0.2 <0.2* BILIDIR -- [...] 09/02/2021 5:45 PM) Impression Pulmonary vascular congestion. Wendover-Tavia catheter tip at the right main pulmonary artery. Radiopaque marker of IABP catheter at the aortic knob. Thank you for letting us participate in the care of this patient. If you are a health care provider and have any questions regarding this report, please contact the number below. For patients who have questions please contact the health child caregiver that requested your imaging first. 09/03/21: SUMMARY: [...] on opiate therapy who was transferred from [facility] for NSTEMI (type I) found to have significant complex disease of the RCA and LAD with severely elevated LVEDP. ?? Admitted to the ICU on 09/02 because she developed recurrent ischemic chest pain and flash pulmonary edema, presumed due to ischemia, and was taken emergently back to the matlab developer for IABP placement. After aggressive diuresis and [...] OSH - ferritin 207, Tsat 11 at [facility] - started [...] course Mirza Robbins, DO PGY-3 Cardiology S2 (#[id number]) 09/04/21 CARDIOLOGY ATTENDING NOTE Patient: Aracelis Monique [...] Robbins. Serafin Lam MD, MPH, RPVI, FACC, [facility] Pager [phone] Cardiovascular Machine WelderCertified Neurodiagnostic Technologisthotel reservation [place] [address] Ernesto Henderson MD - 09/04/2021 6:34 AM [...] site and no issues Ernesto Henderson MD [place], Yumi Menezes MD - 09/03/2021 10:16 AM EST Cardiovascular [...] on opiate therapy who was transferred from [facility] for NSTEMI (type I) found to have significant complex disease of the RCA and LAD with severely elevated LVEDP. She is admitted to the ICU because she developed recurrent ischemic chest pain and flash pulmonary edema, presumed due to ischemia, and was taken emergently back to the matlab developer for IABP placement. The patient was seen [...] Good UOP. Net negative about 2.5L since matlab developer ?? Pain control an ongoing issue despite [...] and DECISION MAKINyoF admitted emergently from the matlab developer after flash pulmonary edema and refractory chest [...] until revascularized, can likely remove in the matlab developer. Removal of PAC after reasonable as well. [...] up Monday as able/appropriate. Please page this instructional writer if you have any questions, thank you. Jessica Bhatt PT, DPT Pager #[phone] Physical Therapy Inpatient Rehabilitation Serafin Salmeron MD [...] anteriorly Abd- Soft, nontender Ext- No edema BAND LINING BANDER- No gross abnormalities noted Psych- Anxious TTE [...] flow was normal and was via the tyonek vessel. The mid segment of the RCA [...] infection in June 2021 who presented to [facility] with chest pain concerning for type I [...] (09/03/21 0600) ??? insulin regular human Stopped (09/02/21 181) ??? nitroGLYcerin Stopped (09/02/21 184) PRN Meds: sodium chloride 0.9 % (flush), [...] 09/02/2021 5:45 PM) Impression Pulmonary vascular congestion. Wendover-Tavia catheter tip at the right main pulmonary artery. Radiopaque marker of IABP catheter at the aortic knob. Thank you for letting us participate in the care of this patient. If you are a health care provider and have any questions regarding this report, please contact the number below. For patients who have questions please contact the health child caregiver that requested your imaging first. 09/03/21: SUMMARY: ?? 1. The left ventricle [...] infection in June 2021 who presented to [facility] with chestpain concerning for type I NSTEMI. ? In the matlab developer, she was noted to have intervenable proximal [...] s/p 40 mg IV lasix in the matlab developer - Goal NN 1 L --Afterload: IABP [...] OSH - ferritin 207, Tsat 11 at [facility] -consider additional [...] Rush MD PGY1 Cardiology S2 (#[id number]) 09/03/21 [place], Yumi Menezes MD - 09/02/2021 4:39 PM EST Cardiovascular [...] on opiate therapy who was transferred from [facility] for NSTEMI (type I) found to have significant complex disease of the RCA and LAD with severely elevated LVEDP. She is admitted to the ICU because she developed recurrent ischemic chest pain and flash pulmonary edema, presumed due to ischemia, and was taken emergently back to the matlab developer for IABP placement. The patient was seen [...] 1 patch Transdermal Daily ??? [NOV Hold] budesonide-formoteroL 2 Inhalation Inhalation BID ??? [NOV Hold] atorvastatin 80 mg Oral QPM ??? [NOV Hold] metoprolol tartrate 12.5 mg Oral Q6H ALAN ??? [NOV Hold] insulin lispro 1-5 Units Subcutaneous TID AC ??? [NOV Hold] gabapentin 600 mg Oral 2 times per day And ??? [NOV Hold] gabapentin 1,200 mg Oral Nightly ??? [NOV Hold] insulin lispro 0-8 Units Subcutaneous TID WC ??? [NOV Hold] insulin glargine 30 Units Subcutaneous QPM ??? [NOV Hold] aspirin EC 81 mg Oral Daily ??? [NOV Hold] clopidogreL 75 mg Oral Daily ??? [...] PCP: Valentin Parekh MD PCP phone #: [phone] ID/Chief Complaint: Ms. Monique is a 46 yo active smoker, HLD, HTN, Type II DM, chronic pain (on opiates), family history of CAD, recent COVID-19 infection in June 2021 who presented to [facility] with chestpain concerning for type I NSTEMI. [...] of her symptoms decided to present to [facility] on 08/30. 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 Patient's story is consistent with ACS. She was admitted to the ICCU tachycardic to the low 100s on 2 L NC, but otherwise stable. Given she is high risk (family hx, smoker, Type II DM, HLD, and HTN), we proceeded to the matlab developer shortly after arrival. In the matlab developer, she was noted to have intervenable proximal RCA and mid-LAD though given development of hypotension, an LVEDP of 40, and ?GI bleed (drop from 12-->9 in Hbg). GI has been consulted. For caroline, will place a IABP, aggressively diurese, and f/u GI recommendations. We are hopeful to optimize her enough to return to the matlab developer. PLAN: Cardiovascular Pump #Elevated LVEDP --Preload: (Diuretic plan: Boluses) - s/p 40 mg IV lasix in the matlab developer - Goal NN 1-2 L --Afterload: Place [...] Status: FULL - Dispo: pending course Mirza Robbins DO Internal Medicine PGY-3 Cardiology S2, Pager [phone] 09/02/2021 Associated attestation - Tameka Neal MD - 09/02/2021 7:26 PM EST Cardiology Attending Addendum I was the assigned attending job lithographer for this clinical encounter. For the purposes [...] infection in June 2021 who presented to [facility] with a non-ST elevation OH. She was transferred to us and went to the Coil Rewind Machine Operator where she was found to have significant [...] that she was fairly hypotensive in the Coil Rewind Machine Operator and anytime her coronaries were injected she [...] For any additional questions, my pager is #[phone]. Tameka Coker MD MPH Advanced Heart Disease [...] Requested by: Cardiology Reason for Consultation: Aracelis Monique is a 46 y.o. female with PMH significant for obesity, HTN, HLD, DM2, ASCVD, depression and chronic pain on opiate therapy who was admitted on 09/02/2021 currently being treated for NSTEMI. We are being consulted to assist with diabetes management and to provide a review of terminal gauger diabetes care. Patient lethargic and difficult to [...] regimen: Diabetes Provider: PCP Dr. Valentin Parekh, [facility] Medications: Tresiba 136 units daily, Humalog 4-10 [...] add carb controlled/carb counting diet once eating nursing home diabetes care: Medications - Outpatient treatment regimen recommendations pending based on the hospital course. Monitoring - continue BG tid ac & hs Diet - low fat/low carb diet Exercise - weight-bearing exercise 30 min/day, as tolerated Thank you for allowing us to provide care for your patient Stacy Karthik [facility] Endocrinology Pager [phone] minutes of this 80 minute visit was spent with the patient in counseling on diabetes and treatment plan, reviewing all glucose and insulin data as well as relevant laboratory results with the patient, and coordination of care on the inpatient unit Plan of Care - Juan Rose MD - 09/03/2021 9:12 AM EST Images [...] Operative Note Patient Name: Aracelis Monique : [id number] MR#: [id number] Case Date: 09/02/2021 Surgeon: Surgeon(s) and Role: * Rafi Barrett MD - Primary Preoperative diagnosis: NSTEMI Postoperative diagnosis: LAD and RCA coronary artery disease Procedures: Right radial artery access Coronary angiography [facility] Right femoral access Balloon pump placed Anesthesia: [...] began feeling better. Transferred to [facility] in stable condition. Rafi Barrett MD Consult Note - Magda Upton MD - 09/02/2021 3:43 PM EST GASTROENTEROLOGY & HEPATOLOGY CONSULTATION Initial Consult Note Requesting Provider: Jay Jay Gant MD REASON FOR CONSULTATION Coffee ground emesis HISTORY OF PRESENT ILLNESS December Sho is a 46 y.o. woman with PMH DMII, HLD, HTN, recent COVID-19 infection and tobacco use whoinitially presented to [facility] with an NSTEMI and was transferred to [facility] for cardiac [...] melena at home. She then presented to [facility] ED where she was noted to [...] plavix 75 mg daily and transferred to [facility] for ischemic evaluation. Given concerns for active ACS she was brought to the matlab developer where she underwent cath without any intervention done. Labs done this afternoon were notable for Hgb 8.9 and otherwise stable. ROS: 10 systems reviewed and positive for those in HPI, otherwise negative PAST MEDICAL/SURGICAL HISTORY: No past medical history on file. MEDICATIONS ??? [NOV Hold] sodium chloride 0.9 % (flush) 5 mL Intravenous BID ??? [NOV Hold] sodium chloride 0.9 % (flush) 5 mL Intravenous BID ??? [NOV Hold] nicotine 1 patch Transdermal Daily And ??? [NOV Hold] Patch Verification 1 patch Transdermal BID And ??? [NOV Hold] nicotine 1 patch Transdermal Daily ??? [NOV Hold] budesonide-formoteroL 2 Inhalation Inhalation BID ??? [NOV Hold] atorvastatin 80 mg Oral QPM ??? [NOV Hold] metoprolol tartrate 12.5 mg Oral Q6H ALAN ??? [NOV Hold] insulin lispro 1-5 Units Subcutaneous TID AC ??? [NOV Hold] gabapentin 600 mg Oral 2 times per day And ??? [NOV Hold] gabapentin 1,200 mg Oral [...] e[facility] ENDOSCOPY: Reviewed in eDH IMPRESSION: Aracelis Monique is a 46 y.o. woman with PMH DMII, HLD, HTN, recent COVID-19 infection and tobacco use whoinitially presented to [facility] with an NSTEMI and was transferred to [facility] for cardiac [...] M.D. Fellow in Gastroenterology and Hepatology Pager #[phone] 09/02/2021 Associated attestation - Mark Cazares MD [...] considered at that time. Mark Cazares MD [facility] Gastroenterology Plan of Care - Oscar Saha MD - 09/02/2021 1:21 PM ESTSummary: Pre-cath Images from the original note were not included. Pre Cardiac Catheterization Note 46 y.o. female presents for chest pain. History of DM on insulin, HTN, HLD, family history of CAD, and current smoker who presented to [facility] with chest pain and shortness of [...] by Dr. Wilian Toledo and transferred to [facility] for invasive [...] Visit Cardiology Tameka Neal MD [facility] [address], [place] [address] (Wo rk) Scheduled Orders Name Type [...] PM EST disease involving procedure are in [place] coronary the results artery of [place] section. heart without angina pectoris EKG 12-LEAD [...] POC Glucose 256 (H) 65 - 199 [facility] mg/dL [facility] Comment: Supplemental ranges: <140 mg/dL before meals <180 mg/dL all other times of the day Specimen Anatomical Collection Method Collection Time Receive d Time (Source) Location / / Volume Laterality Blood 09/05/2021 12:27 09/05/2021 PM EST 12:27 PM EST Serafin Lam MD POINT OF CARE TEST ORDERABLE S Performing Organization Address City/State/ZIP Code Phon e Number [place] [id number] ECHOCARDIOGRAM LMTD W CONTRAST W LMTD SPEC DOPP COLOR DOPP (09/05/2021 10:49 AM EST) athologist Signature EF 33 [facility] Anatomical Region Laterality Modality Other Specimen (Source) Anatomical Location Collection Method / Collectio n Time Received Time / Laterality Volume 09/05/2021 Narrative 09/05/2021 11:11 AM EST Amended Report Procedure: ?Transthoracic Echocardio gram Patient: ?SHO ARACELIS ?(Age): 1975(46y) Med Rec#: ? [id number] ?Sex: ?F ? Site Loc: ? [facility] ?Ht / Wt: ??163(cm)/79(kg) Pt. Loc: ?CCU ? BSA: ?1.85 Study Date: ?? 09/05/2021 ?Pt. Type: Inpatient Tape: ? Referring: Carole Serafin ??([id number]) Reading: Hernán Mariscal ([id number]) Physician Practice Consultant: Shimon García Diagnosis: *Unspecified systolic (congestive) hear [...] 09/05/2021 1 1:12:38 [facility] Procedure Note Hernán Mariscal MD - 09/05/2021Formatt ing of this note might be different from the original. Amended Report Procedure: Transthoracic Echocardiogram Patient: SHO DECEMBER (Age): 1975 (46y) Med Rec#: [id number] Sex: F Site Loc: [facility] Ht / Wt: 163(cm)/79(kg) Pt. Loc: CCU BSA: 1.85 Study Date: 09/05/2021 Pt. Type: Inpatie nt Tape: Referring: Serafin Lam ([id number]) Reading: Hernán Mariscal ([id number]) Physician Practice Consultant: Shimon García Diagnosis: *Unspecified systolic (congestive) hear [...] 8 Images reviewed and interpretation verif ied [facility] Cardiac Ultrasound Laboratory Serafin Lam MD ECHO ORDERABLES POCT Glucose (09/05/2021 7:48 AM EST) athologist Signature POC Glucose 156 65 - 199 [facility] Comment: Supplemental ranges: <140 mg/dL before meals <180 mg/dL all other times of the day Specimen Anatomical Collection Method Collection Time Receive d Time (Source) Location / / Volume Laterality Blood 09/05/2021 7:48 AM 7:48 EST AM EST Serafin Lam MD POINT OF CARE TEST ORDERABLE S Performing Organization Address City/State/[place] [address] (ABNORMAL) POCT Glucose (09/05/2021 5:38 AM EST) athologist Signature POC Glucose 213 (H) 65 - 199 [facility] Comment: Supplemental ranges: <140 mg/dL before meals <180 mg/dL all other times of the day Specimen Anatomical Collection Method Collection Time Receive d Time (Source) Location / / Volume Laterality Blood 09/05/2021 5:38 AM 5:38 EST AM EST Serafin Lam MD POINT OF CARE TEST ORDERABLE S Performing Organization Address City/State/[place] [address] (ABNORMAL) Differential, Automated (09/05/2021 4:02 AM EST) [facility] gist Method Time Signature Neutrophils % 58.2 % [facility] Neutr Abs (ANC) 6.82 (H) 1.70 - [facility] 6.[address] [facility] x10(3)/[facility] L LABORATORY Lymphocytes % 31.2 % [facility] Lymphocytes Abs 3.7 (H) 0.9 - 3.2 [facility] x10(3)/[facility] LABORATORY Monocytes % 8.0 % [facility] Monocyte Abs 0.9 0.3 - 0.9 [facility] x10(3)/[facility] LABORATORY Eosinophils % 2.0 % [facility] Eosinophils Abs 0.2 0.0 - 0.4 [facility] x10(3)/[facility] LABORATORY Basophils % 0.3 % [facility] Basophils Abs 0.0 0.0 - 0.1 [facility] x10(3)/[facility] LABORATORY Immature Gran % 0.30 % [facility] Comment: Immature granulocytes(IG's)percentage an d absolute count will include metamyelocytes, myelocytes, and promyelo cytes. Blood smears from CBCs yielding IG's will be scanned manually for concor dance. If this scan disagrees with the automated IG or if promyelocytes are not ed, a manual differential will be performed. Anaya Gran Abs 0.04 0.00 - 0.04 x10(3)/[facility] Specimen Anatomical Collection Method Collection Time Receive d Time (Source) Location / / Volume Laterality Blood 09/05/2021 4:02 AM 4:17 EST AM EST Resulting Agency Comment Spec In Lab Mirza Robbins DO HEMATOLOGY ORDERABLES Performing Organization Address City/State/[place] [address] (ABNORMAL) Hemogram (09/05/2021 4:02 AM EST) Analysis Performed At Patho logist Time Signature WBC 11.7 (H) 4.0 - 9.5 [facility] x10(3)/[facility] LABORATORY RBC 3.88 (L) 4.00 - [facility] 5.[address] [facility] x10(6)/[facility] LABORATORY Hemoglobin 9.0 (L) 11.7 - [facility] 15.5 g/dL [facility] Hematocrit 29.5 (L) 35.7 - [facility] 45.8 % [facility] MCV 76.0 (L) 82.6 - [facility] 94.4 [facility] LABORATORY MCH 23.2 (L) 27.1 - [facility] 32.0 pg [facility] MCHC 30.5 (L) 31.7 - [facility] 35.0 g/dL [facility] Platelets 347 145 - 357 [facility] x10(3)/[facility] LABORATORY RDWSD 55.1 (H) 37.0 - [facility] 46.0 [facility] LABORATORY RDWCV 21.3 (H) 11.5 - [place] [facility] 14.1 % [facility] MPV 9.8 7.6 - 12.9 [facility] LABORATORY nRBC % Auto 0.0 % [facility] nRBC Abs Auto 0.000 0.000 - [facility] 0.[address] [facility] x10(3)/[facility] LABORATORY Specimen Anatomical Collection Method Collection Time Receive d Time (Source) Location / / Volume Laterality Blood 09/05/2021 4:02 AM 4:17 EST AM EST Resulting Agency Comment Spec In Lab Mirza Robbins DO HEMATOLOGY ORDERABLES Performing Organization Address City/State/[place] [address] (ABNORMAL) CMP w/fasting Glucose (09/05/2021 4:02 AM EST) P athologist Signature Glucose 224 (H) 65 - 99 [facility] F[facility] mg/dL [facility] Comment: ?Fasting* Glucose Interpretive [...] of Diabetes Mellitus, Position Statement from the [employer]. ??Diabete s Care, Volume 33, Supplement 1, Oct 2009 BUN 25 (H) 8 - 18 mg/dL [facility] Creatinine 0.68 (L) 0.70 - 1.20 mg/dL [facility]ORY Sodium 139 135 - 145 mmol/L [facility] Potassium 4.3 3.5 - 5.0 mmol/L [facility] Comment: Please note: ??Patients with WBC >100,00 0 may have falsely elevated Potassium levels. ??For accurate Potassium quantif ication in these patients send serum separator tube (gold top) for subsequent determinations. ??Contact the Clinical Chemistry Laboratory if there are any qu estions. Chloride 103 98 - 107 mmol/L [facility] CO2 24 22 - 31 mmol/L [facility] Anion Gap 12 5 - 15 mmol/L [facility] Calcium 9.5 8.5 - 10.5 mg/dL [facility] Total Protein 6.7 6.1 - 8.0 g/dL [facility] Albumin 3.5 3.2 - 5.2 g/dL [facility] AST 9 0 - 30 unit/L [facility] ALT 7 0 - 30 unit/L [facility] Alk Phos 89 35 - 105 unit/L [facility] Total Bilirubin <0.2 (L) 0.2 - 1.3 mg/dL [facility] LABOR[facility]ORY Estimated GFR 105 >=60 mL/min/1.73 m?? [facility] Comment: This patient? s estimated [...] Organization Address City/State/[place] [address] Magnesium (09/05/2021 4:02 AM EST) athologist Signature Magnesium 0.79 0.69 - 1.07 [facility] mmol/L [facility] Specimen Anatomical Collection Method Collection Time Receive d Time (Source) Location / / Volume Laterality Blood 09/05/2021 4:02 AM 4:17 EST AM EST Resulting Agency Comment Spec In Lab Tameka Chu MD CHEMISTRY ORDERABLES Performing Organization Address City/State/[place] [address] (ABNORMAL) POCT Glucose (09/04/2021 11:46 PM EST) athologist Signature POC Glucose 214 (H) 65 - 199 [facility] Comment: Supplemental ranges: <140 mg/dL before meals <180 mg/dL all other times of the day Specimen Anatomical Collection Method Collection Time Receive d Time (Source) Location / / Volume Laterality Blood 09/04/2021 11:46 09/04/2021 PM EST 11:46 PM EST Serafin Lam MD POINT OF CARE TEST ORDERABLE S Performing Organization Address City/[facility]/ZIP Code Phon e Number [address] (ABNORMAL) POCT Glucose (09/04/2021 9:01 PM EST) athologist Signature POC Glucose 281 (H) 65 - 199 [facility] Comment: Supplemental ranges: <140 mg/dL before meals <180 mg/dL all other times of the day Specimen Anatomical Collection Method Collection Time Receive d Time (Source) Location / / Volume Laterality Blood 09/04/2021 9:01 PM 9:01 EST PM EST Serafin Lam MD POINT OF CARE TEST ORDERABLE S Performing Organization Address City/State/[place] [address] (ABNORMAL) POCT Glucose (09/04/2021 5:45 PM EST) P athologist Signature POC Glucose 287 (H) 65 - 199 [place] [facility] mg/dL [facility] Comment: Supplemental ranges: <140 mg/dL before meals <180 mg/dL all other times of the day Specimen Anatomical Collection Method Collection Time Receive d Time (Source) Location / / Volume Laterality Blood 09/04/2021 5:45 PM 5:45 EST PM EST Serafin Lam MD POINT OF CARE TEST ORDERABLE S Performing Organization Address City/State/[place] [address] (ABNORMAL) POCT Glucose (09/04/2021 4:17 PM EST) P athologist Signature POC Glucose 296 (H) 65 - 199 [place] [facility] mg/dL [facility] Comment: Supplemental ranges: <140 mg/dL before meals <180 mg/dL all other times of the day Specimen Anatomical Collection Method Collection Time Receive d Time (Source) Location / / Volume Laterality Blood 09/04/2021 4:17 PM 4:17 EST PM EST Serafin Lam MD POINT OF CARE TEST ORDERABLE S Performing Organization Address City/State/[place] [address] (ABNORMAL) POCT Glucose (09/04/2021 2:21 PM EST) P athologist Signature POC Glucose 373 (H) 65 - 199 [place] [facility] mg/dL [facility] Comment: Supplemental ranges: <140 mg/dL before meals <180 mg/dL all other times of the day Specimen Anatomical Collection Method Collection Time Receive d Time (Source) Location / / Volume Laterality Blood 09/04/2021 2:21 PM 2:21 EST PM EST Serafin Lam MD POINT OF CARE TEST ORDERABLE S Performing Organization Address City/[facility]/[place] [address] (ABNORMAL) POCT Glucose (09/04/2021 11:32 AM EST) P athologist Signature POC Glucose 262 (H) 65 - 199 [facility] Comment: Supplemental ranges: <140 mg/dL before meals <180 mg/dL all other times of the day Specimen Anatomical Collection Method Collection Time Receive d Time (Source) Location / / Volume Laterality Blood 09/04/2021 11:32 09/04/2021 AM EST 11:32 AM EST Serafin Lam MD POINT OF CARE TEST ORDERABLE S Performing Organization Address City/[facility]/[place] [address] POCT Glucose (09/04/2021 10:14 AM EST) P athologist Signature POC Glucose 174 65 - 199 [facility] Comment: Supplemental ranges: <140 mg/dL before meals <180 mg/dL all other times of the day Specimen Anatomical Collection Method Collection Time Receive d Time (Source) Location / / Volume Laterality Blood 09/04/2021 10:14 09/04/2021 AM EST 10:14 AM EST Serafin Lam MD POINT OF CARE TEST ORDERABLE S Performing Organization Address City/State/[place] [address] XR Chest One View (09/04/2021 9:40 AM EST) Anatomical Region Laterality Modality Chest N/A Digital Radiography Specimen (Source) Anatomical Location Collection Method / Collectio n Time Received Time / Laterality Volume Impressions 09/04/2021 10:10 AM EST Interval removal of Wendover-Tavia catheter. Interval improvement in prominence of persistent [...] who have questions please contact the health child caregiver that requested your imaging first. ? Narrative [...] FINDINGS: See impression. IMPRESSION Interval removal of Wend[place]-Tavia catheter. Interval improvement in prominence of persistent [...] ho have questions please contact the health child caregiver that requested your imaging first. Serafin Lam MD IMG DX ORDERABLES POCT Glucose (09/04/2021 8:03 AM EST) athologist Signature POC Glucose 107 65 - 199 [place] [facility] mg/dL [facility] Comment: Supplemental ranges: <140 mg/dL before meals <180 mg/dL all other times of the day Specimen Anatomical Collection Method Collection Time Receive d Time (Source) Location / / Volume Laterality Blood 09/04/2021 8:03 AM 8:03 EST AM EST Serafin Lam MD POINT OF CARE TEST ORDERABLE S Performing Organization Address City/State/[place] [address] (ABNORMAL) POCT Glucose (09/04/2021 6:02 AM EST) athologist Signature POC Glucose 264 (H) 65 - 199 [facility] Comment: Supplemental ranges: <140 mg/dL before meals <180 mg/dL all other times of the day Specimen Anatomical Collection Method Collection Time Receive d Time (Source) Location / / Volume Laterality Blood 09/04/2021 6:02 AM 6:02 EST AM EST Serafin Lam MD POINT OF CARE TEST ORDERABLE S Performing Organization Address City/State/[place] [address] (ABNORMAL) POCT Glucose (09/04/2021 4:02 AM EST) athologist Signature POC Glucose 285 (H) 65 - 199 [facility] mg/dL [facility] Comment: Supplemental ranges: <140 mg/dL before meals <180 mg/dL all other times of the day Specimen Anatomical Collection Method Collection Time Receive d Time (Source) Location / / Volume Laterality Blood 09/04/2021 4:02 AM 4:02 EST AM EST Serafin aLm MD POINT OF CARE TEST ORDERABLE S Performing Organization Address City/State/[place] [address] (ABNORMAL) BMP w/fasting Glucose (09/04/2021 2:47 AM EST) athologist Signature Glucose 362 (H) 65 - 99 [facility] Fasting mg/dL [facility] Comment: result rechecked-rg ?Fasting* Glucose Interpretive [...] of Diabetes Mellitus, Position Statement from the [employer]. ??Diabete s Care, Volume 33, Supplement 1, Oct 2009 BUN 16 8 - 18 mg/dL [facility] Creatinine 0.69 (L) 0.70 - 1.20 mg/dL [facility]ORY Sodium 140 135 - 145 mmol/L [facility] Potassium 4.4 3.5 - 5.0 mmol/L [facility] Comment: Please note: ??Patients with WBC >100,00 0 may have falsely elevated Potassium levels. ??For accurate Potassium quantif ication in these patients send serum separator tube (gold top) for subsequent determinations. ??Contact the Clinical Chemistry Laboratory if there are any qu estions. Chloride 104 98 - 107 mmol/L [facility] CO2 Not Perf - [facility] Comment: Add-on request. Sample too old to perform test. Anion Gap Unable to Calculate 5 - 15 mmol/L [facility] Calcium 8.9 8.5 - 10.5 mg/dL [facility] Estimated GFR 104 >=60 mL/min/1.73 m?? [facility] Comment: This patient? s estimated [...] Organization Address City/State/ZIP Code Phon e Number [place] [id number] LAB[address]ORY Drive (ABNORMAL) Differential, Automated (09/04/2021 2:47 AM EST) [facility] gist Method Time Signature Neutrophils % 62.4 % [facility] Neutr Abs (ANC) 5.80 1.70 - [facility] 6.[address] [facility] x10(3)/[facility] LABORATORY Lymphocytes % 23.0 % [facility]ORY Lymphocytes Abs 2.1 0.9 - 3.2 [facility] x10(3)/[facility] LABORATORY Monocytes % 6.8 % [facility]ORY Monocyte Abs 0.6 0.3 - 0.9 [facility] x10(3)/[facility] LABORATORY Eosinophils % 7.0 % [facility] Eosinophils Abs 0.6 (H) 0.0 - 0.4 [facility] x10(3)/[facility] LABORATORY Basophils % 0.4 % [facility] Basophils Abs 0.0 0.0 - 0.1 [facility] x10(3)/[facility] LABORATORY Immature Gran % 0.40 % [facility] Comment: Immature granulocytes(IG's)percentage an d absolute count will include metamyelocytes, myelocytes, and promyelo cytes. Blood smears from CBCs yielding IG's will be scanned manually for concor dance. If this scan disagrees with the automated IG or if promyelocytes are not ed, a manual differential will be performed. Anaya Gran Abs 0.04 0.00 - 0.04 x10(3)/[facility] Specimen Anatomical Collection Method Collection Time Receive d Time (Source) Location / / Volume Laterality Blood 09/04/2021 2:47 AM 2:51 EST AM EST Resulting Agency Comment Spec In Lab Mirza Robbins DO HEMATOLOGY ORDERABLES Performing Organization Address City/State/[place] [address] (ABNORMAL) Hemogram (09/04/2021 2:47 AM EST) Analysis Performed At Patho logist Time Signature WBC 9.3 4.0 - 9.5 [facility] x10(3)/[facility] LABORATORY RBC 4.04 4.00 - [facility] 5.[address] [facility] x10(6)/[facility] LABORATORY Hemoglobin 9.4 (L) 11.7 - [facility] 15.[facility] g/dL [facility] Hematocrit 30.9 (L) 35.7 - [facility] 45.8 % [facility] MCV 76.5 (L) 82.6 - [facility] 94.4 [facility] LABORATORY MCH 23.3 (L) 27.1 - [facility] 32.0 pg [facility] MCHC 30.4 (L) 31.7 - [facility] 35.0 g/dL [facility] Platelets 358 (H) 145 - 357 [facility] x10(3)/[facility] LABORATORY RDWSD 54.8 (H) 37.0 - [facility] 46.0 [facility] LABORATORY RDWCV 20.7 (H) 11.5 - [facility] JOSE DAVID 14.1 % [facility] MPV 9.7 7.6 - 12.9 [facility] LABORATORY nRBC % Auto 0.0 % [facility] LABOR[facility]ORY nRBC Abs Auto 0.000 0.000 - [facility] 0.[address] [facility] x10(3)/[facility] LABORATORY Specimen Anatomical Collection Method Collection Time Receive d Time (Source) Location / / Volume Laterality Blood 09/04/2021 2:47 AM 1 2:51 EST AM EST Resulting Agency Comment Spec In Lab Mirza Saavedrajo ann [place] HEMATOLOGY ORDERABLES Performing Organization Address City/[facility]/ZIP Code Phon e Number [address] Magnesium (09/04/2021 2:47 AM EST) athologist Signature Magnesium 0.89 0.69 - 1.07 [facility] mmol/L [facility] Specimen Anatomical Collection Method Collection Time Receive d Time (Source) Location / / Volume Laterality Blood 09/04/2021 2:47 AM 1 2:51 EST AM EST Resulting Agency Comment Spec In Lab Tameka Chu MD CHEMISTRY ORDERABLES Performing Organization Address City/State/[place] [address] (ABNORMAL) POCT Glucose (09/04/2021 2:08 AM EST) athologist Signature POC Glucose 356 (H) 65 - 199 [facility] mg/dL [facility] Comment: Supplemental ranges: <140 mg/dL before meals <180 mg/dL all other times of the day Specimen Anatomical Collection Method Collection Time Receive d Time (Source) Location / / Volume Laterality Blood 09/04/2021 2:08 AM 1 2:08 EST AM EST Serafin Lam MD POINT OF CARE TEST ORDERABLE S Performing Organization Address City/[facility]/ZIP Code Phon e Number [address] (ABNORMAL) POCT Glucose (09/04/2021 12:12 AM EST) athologist Signature POC Glucose 326 (H) 65 - 199 [facility] mg/dL [facility] Comment: Supplemental ranges: <140 mg/dL before meals <180 mg/dL all other times of the day Specimen Anatomical Collection Method Collection Time Receive d Time (Source) Location / / Volume Laterality Blood 09/04/2021 12:12 09/04/2021 AM EST 12:12 AM EST Serafin Lam MD POINT OF CARE TEST ORDERABLE S Performing Organization Address City/[facility]/[place] [address] (ABNORMAL) Hemoglobin and Hematocrit, blood (09/03/2021 8:36 PM EST) P athologist Signature Hemoglobin 9.5 (L) 11.7 - [facility] 15.5 g/dL [facility] Hematocrit 30.6 (L) 35.7 - [facility] 45.8 % [facility] Specimen Anatomical Collection Method Collection Time Receive d Time (Source) Location / / Volume Laterality Blood 09/03/2021 8:36 PM 9:08 EST PM EST Resulting Agency Comment Spec In Lab Serafin Lam MD HEMATOLOGY ORDERABLES Performing Organization Address City/[facility]/[place] [address] POCT Glucose (09/03/2021 8:21 PM EST) athologist Signature POC Glucose 134 65 - 199 [facility] mg/dL [facility] Comment: Supplemental ranges: <140 mg/dL before meals <180 mg/dL all other times of the day Specimen Anatomical Collection Method Collection Time Receive d Time (Source) Location / / Volume Laterality Blood 09/03/2021 8:21 PM 8:21 EST PM EST Serafin Lam MD POINT OF CARE TEST ORDERABLE S Performing Organization Address City/[facility]/[place] [address] EKG 12 Lead (09/03/2021 7:27 PM EST) Component Value Ref Range Test Analysis Performed Pathologis t Method Time At Signature Ventricular rate 98 BPM MUSE SYSTEM Atrial Rate 98 BPM MUSE SYSTEM P-R Interval 146 ms MUSE SYSTEM QRS Duration 94 ms MUSE SYSTEM Q-T Interval 380 ms MUSE SYSTEM QTC Calculated 485 ms MUSE SYSTEM (Bezet) Calculated P [place] 35 degrees MUSE SYSTEM Calculated R [place] 38 degrees MUSE SYSTEM Calculated T [place] 80 degrees MUSE SYSTEM INTERPRETATION Normal sinus rhythm MUSE SYSTEM Anterolateral infarct (cited on or before 02-SEP-2021) Abnormal ECG When compared with ECG of 02-SEP-2021 17:26, No significant change was found Confirmed by MD Carole, Serafin ([id number]) on 09/04/2021 10:4 7:29 AM Specimen Anatomical [...] Laterality Volume Narrative 09/07/2021 5:44 PM EST ?[facility] ? Cardiac Cathete rization/Intervention Report ? Patient Name: Sho, Aracelis ? Procedure Date: 09/03/2021 ? A #: [id number] ? Primary Physician: Rafi Barrett ? Case #: [id number] ? File Name: [id number] ? Catheterization Order Number: [id number] ? [facility] ? Final Report [place], [place] ? Patient Name: ? Aracelis Sho ? ID#: ?[id number] ? : ?1975 ? Procedure Date: ? Santi 3, 202 1 ? Case #: ? [id number] ? Room: ? 5 ? Case Physician: ? Rafi Barrett M.D. ?Start: ?16:41 ?Fellow: ? Humza Kulkarni acad M.D. ?Admission: ??09/02/2021 ? Discharge: ??09/05/2021 ? [...] was designated as ASA Class IV. ?The CSHA clinical frailty scale is 3: Managing [...] procedure was Urgent. The indication for ?the matlab developer visit is ACS great er than 24 [...] a de balbir lesion. ? According to e ACC/AHA classification system, this lesion ? [...] through a 6 Fr. Carola Right ? 1.0 guide. ??A premounted 4.00 [...] Resolute TYREE (EMILEE) ? was deployed wi th a maximum inflation pressure of 20 ? [...] final GLO ? flow was 3. ? Distal 60% [...] 6 Fr. Carola Right ? 1.5 guide. ??Th e lesion [...] dose administered prior to arrival in the matlab developer. ?Recommended anti-platelet/anti- thrombotic regimen: ?Continue aspirin 81 mg daily. ?Continue clopidogrel 75 mg leighann y. ?These recommendations are made at the time of the intervention. Patient ?and provider preferences or a c hanging clinical situation may require ?modification of this regimen. C onsult [facility] Interventional Cardiology for ?questions. ?The 1 year [...] presented for planned i ntervention on RCA. Carola Right catheter ?provided adequate support. Succ essful [...] the sedation nurse. ??Case time = 02:17. ?Dr. Rafi Barrett M.D. performe d the coronary angiography, left heart ?catheterization, stent insertion-c oronary, access site angiography, ?vascular closure device, ABG and I ABP removal in matlab developer. ? Rafi Barrett M.D. ? Report Finalized: 09/07/2021 ??17:39 ? Report Last Ammended: 10/14/2021 ??10:24 ? Procedure Note Rafi Barrett MD - 10/14/2021Formatt ing of this note might be different from the original. [facility] Cardiac Catheterization/Intervention Re port Patient Name: Sho December Procedure Date: 09/03/2021 A #: [id number] Primary Physician: Rafi Barrett Case #: [id number] File Name: [id number] Catheterization Order Number: [id number] [facility] Final Report [place], [place] Patient Name: Aracelis Sho ID#: [id number] : 1975 Procedure Date: September 03, 2021 [...] was designated as ASA Class IV. The [facility] clinical frailty scale is 3: M anaging Well. Diagnostic Tests: Prior Coronary Angiography: LV ejection fraction within 6 months is 60%. Electrocardiography: EKG was assessed by ECG. EKG was Abnorm al. EKG showed T-wave inversions. Medications Prior to Procedure: Aspirin and Statin. Indications for Diagnostic Cath: The priority of the diagnostic procedur e was Urgent. The indication for the matlab developer visit is ACS greater than 24 hrs. [...] administered prior t o arrival in the matlab developer. Recommended anti-platelet/anti-thrombot ic regimen: Continue aspirin 81 mg daily. Continue clopidogrel 75 mg daily. These recommendations are made at the t yolande of the intervention. Patient and provider preferences or a changing clinical situation may require modification of this regimen. Consult [facility] Interventional Cardiology for questions. [...] device, ABG and IABP r emoval in matlab developer. Rafi Barrett M.D. Report Finalized: 09/07/2021 17:39 Report Last Ammended: 10/14/2021 10:24 Rafi Barrett MD CARDIAC CATH ORDERABLES (ABNORMAL) Point of Care Blood Gas Historical (09/03/2021 5:50 PM EST) [facility] Method Time Signature POC pH 7.44 7.35 - [facility] 7.45 [facility] POC PCO2 41 35 - 45 [facility] LABORATORY POC PO2 68 (L) 85 - 104 [facility] LABORATORY POC Base Excess 4.0 (H) -3.0 - 3.0 [facility] K mmol/L [facility] POC HCO3 27.8 (H) 20.0 - [facility] 26.[address] [facility] mmol/[facility] LABORATORY POC Sodium 137 135 - 145 [facility] mmol/L [facility] POC Potassium 4.1 3.5 - 5.0 [facility] mmol/L [facility] POC Hematocrit 28.0 (L) 34.0 - [facility] 45.0 % [facility] POC Calc Hgb 9.5 (L) 11.2 - [facility] 15.7 g/dL [facility] Comment: The calculation of hemoglobin f rom hematocrit assumes a normal MCHC. POC Bgas Loc CC LAB [facility] LABORATORY Specimen Anatomical Collection Method Collection Time Receive d Time (Source) Location / / Volume Laterality Blood 09/03/2021 5:50 PM 9:00 EST AM EST Serafin Lam MD CHEMISTRY ORDERABLES Performing Organization Address City/State/ZIP Code Phon e Number [address] POCT Glucose (09/03/2021 12:09 PM EST) athologist Signature POC Glucose 112 65 - 199 [facility] mg/dL [facility] Comment: Supplemental ranges: <140 mg/dL before meals <180 mg/dL all other times of the day Specimen Anatomical Collection Method Collection Time Receive d Time (Source) Location / / Volume Laterality Blood 09/03/2021 12:09 09/03/2021 PM EST 12:09 PM EST Serafin Lam MD POINT OF CARE TEST ORDERABLE S Performing Organization Address City/State/[place] [address] Heparin (unfractionated) Level (09/03/2021 10:17 AM EST) P athologist Signature Heparin UFH 0.26 IU/mL [facility] LABORATORY Comment: Heparin (anti-Xa) levels should be [...] Organization Address City/State/ZIP Code Phon e Number [place] [id number] ECHOCARDIOGRAM LMTD W/O CON W LMTD SPEC DOPP, COLOR DOPP (09/03/2021 9:34 AM EST) athologist Signature EF 37 HEARTLAB SYSTEM Anatomical Region Laterality Modality Other Specimen (Source) Anatomical Location Collection Method / Collectio n Time Received Time / Laterality Volume 09/03/2021 Narrative 09/03/2021 10:34 AM EST Procedure: ?Transthoracic Echocardiogram Patient: ?SHO ARACELIS ?(Age): 1975(46y) Med Rec#: ? [id number] ?Sex: ?F ? Site Loc: ? [facility] ?Ht / Wt: ??163(cm)/78(kg) Pt. Loc: ?CCU ? BSA: ?1.84 Study Date: ?? 09/03/2021 ?Pt. Type: Inpatient Tape: ? Referring: Tameka Neal Referring: JOSUÉ Reading: Carrie Salamanca ([id number]) Physician Practice Consultant: Anca Darling Diagnosis: *Non-ST elevation (NSTEMI) myocardial [...] PISA radius ?0.82 ? cm ? MR alias Vmax ? 30.03 ?cm/sec ? This report has been electronically sign ed by: _ Carrie Salamanca MD ? 09/03/2021 10: 33:25 Images reviewed and interpretation verif ied [facility] Cardiac Ultrasound Laboratory Procedure Note Carrie Salamanca MD - 09/03/2021Formatti ng of this note might be different from the original. Procedure: Transthoracic Echocardiogram Patient: SHO DECEMBER (Age): 1975 (46y) Med Rec#: [id number] Sex: F Site Loc: [facility] Ht / Wt: 163(cm)/78(kg) Pt. Loc: CCU BSA: 1.84 Study Date: 09/03/2021 Pt. Type: Inpatie nt Tape: Referring: Tameka Neal Referring: JOSUÉ Reading: Carrie Salamanca ([id number]) Physician Practice Consultant: Anca Darling Diagnosis: *Non-ST elevation (NSTEMI) myocardial [...] 10:33:25 Images reviewed and interpretation verif ied [facility] Cardiac Ultrasound Laboratory Tameka Chu MD ECHO ORDERABLES POCT Glucose (09/03/2021 9:14 AM EST) athologist Signature POC Glucose 108 65 - 199 [facility] mg/dL [facility] Comment: Supplemental ranges: <140 mg/dL before meals <180 mg/dL all other times of the day Specimen Anatomical Collection Method Collection Time Receive d Time (Source) Location / / Volume Laterality Blood 09/03/2021 9:14 AM 9:14 EST AM EST Tameka Chu MD POINT OF CARE TEST ORDERAB LES Performing Organization Address City/State/[place] [address] POCT Glucose (09/03/2021 7:04 AM EST) P athologist Signature POC Glucose 102 65 - 199 [facility] mg/dL [facility] Comment: Supplemental ranges: <140 mg/dL before meals <180 mg/dL all other times of the day Specimen Anatomical Collection Method Collection Time Receive d Time (Source) Location / / Volume Laterality Blood 09/03/2021 7:04 AM 7:04 EST AM EST Tameka Chu MD POINT OF CARE TEST ORDERAB LES Performing Organization Address City/State/[place] [address] (ABNORMAL) Troponin (09/03/2021 6:20 AM EST) athologist Signature Troponin-T 0.07 (H) 0.00 - [facility] 0.00 ng/mL [facility] Comment: The 99th percentile for Troponin T is le ss than 0.01 ng/mL, any detectable cTnT concentration using this assay should be considered elevated. According to the third universal definit ion of myocardial infarction the following criteria with a clinical prese ntation consistent with acute myocardial ischemia meets the diagnosis for a myocardial infarction ([place]). Detection of a rise and/or fall of [...] additional sample may be indicated. Reference: Third [place] Definition of Myocardial Infarction. Journal of the [employer] College of [employer]iology 2012;60:1581-98 Specimen Anatomical Collection Method Collection Time Receive d Time (Source) Location / / Volume Laterality Blood 09/03/2021 6:20 AM 6:27 EST AM EST Resulting Agency Comment Spec In Lab Yumi Garcia MD CHEMISTRY ORDERABLES Performing Organization Address City/[facility]/ZIP Code Phon e Number [address] Potassium (09/03/2021 4:00 AM EST) athologist Signature Potassium 4.3 3.5 - 5.0 [facility] mmol/L [facility] Comment: Please note: ??Patients [...] Chu MD CHEMISTRY ORDERABLES Performing Organization Address City/[facility]/[place] [address] Heparin (unfractionated) Level (09/03/2021 4:00 AM EST) athologist Signature Heparin UFH 0.49 IU/mL [facility] LABORATORY Comment: Heparin (anti-Xa) levels should be [...] Organization Address City/State/[place] [address] (ABNORMAL) Differential, Automated (09/03/2021 12:45 AM EST) [facility] Method Time Signature Neutrophils % 61.6 % [facility] LABORATORY Neutr Abs (ANC) 7.46 (H) 1.70 - [facility] 6.[address] [facility] x10(3)/[facility] LABORATORY Lymphocytes % 22.0 % [facility] LABORATORY Lymphocytes Abs 2.7 0.9 - 3.2 [facility] x10(3)/[facility] LABORATORY Monocytes % 7.9 % [facility] LABORATORY Monocyte Abs 1.0 (H) 0.3 - 0.9 [facility] x10(3)/[facility] LABORATORY Eosinophils % 7.7 % [facility] LABORATORY Eosinophils Abs 0.9 (H) 0.0 - 0.4 [facility] x10(3)/[facility] LABORATORY Basophils % 0.3 % [facility] LABORATORY Basophils Abs 0.0 0.0 - 0.1 [facility] x10(3)/[facility] LABORATORY Immature Gran % 0.50 % [facility] LABORATORY Comment: Immature granulocytes(IG's)percentage an d absolute count will include metamyelocytes, myelocytes, and promyelo cytes. Blood smears from CBCs yielding IG's will be scanned manually for concor dance. If this scan disagrees with the automated IG or if promyelocytes are not ed, a manual differential will be performed. Anaya Gran Abs 0.06 (H) 0.00 - 0.04 x10(3)/[facility] LABORATORY Specimen Anatomical Collection Method Collection Time Receive d Time (Source) Location / / Volume Laterality Blood 09/03/2021 12:45 09/03/2021 AM EST 12:56 AM EST Resulting Agency Comment Spec In Lab Mirza Robbins DO HEMATOLOGY ORDERABLES Performing Organization Address City/State/[place] [address] (ABNORMAL) Hemogram (09/03/2021 12:45 AM EST) Analysis Performed At Patho logist Time Signature WBC 12.1 (H) 4.0 - 9.5 [facility] x10(3)/[facility] LABORATORY RBC 4.17 4.00 - [facility] 5.[address] [facility] x10(6)/[facility] LABORATORY Hemoglobin 9.7 (L) 11.7 - [facility] 15.5 g/dL [facility] Hematocrit 31.1 (L) 35.7 - [facility] 45.8 % [facility] MCV 74.6 (L) 82.6 - [facility] 94.4 [facility] LABORATORY MCH 23.3 (L) 27.1 - [facility] 32.0 pg [facility] MCHC 31.2 (L) 31.7 - [facility] 35.0 g/dL [facility] Platelets 432 (H) 145 - 357 [facility] x10(3)/[facility] LABORATORY RDWSD 53.1 (H) 37.0 - [facility] 46.0 [facility] LABORATORY RDWCV 20.0 (H) 11.5 - [facility] 14.1 % [facility] MPV 9.4 7.6 - 12.9 [facility] LABORATORY nRBC % Auto 0.0 % [facility] LABORATORY nRBC Abs Auto 0.000 0.000 - [facility] 0.[address] [facility] x10(3)/[facility] LABORATORY Specimen Anatomical Collection Method Collection Time Receive d Time (Source) Location / / Volume Laterality Blood 09/03/2021 12:45 09/03/2021 AM EST 12:56 AM EST Resulting Agency Comment Spec In Lab Mirza Robbins DO HEMATOLOGY ORDERABLES Performing Organization Address City/State/[place] [address] (ABNORMAL) CMP w/fasting Glucose (09/03/2021 12:45 AM EST) P athologist Signature Glucose 126 (H) 65 - 99 [facility] Fasting mg/dL [facility] Comment: ?Fasting* Glucose Interpretive [...] of Diabetes Mellitus, Position Statement from the [employer] Diabetes Association. ??Diabete s Care, Volume 33, Supplement 1, Oct 2009 BUN 12 8 - 18 mg/dL [facility] LABORATORY Creatinine 0.71 0.70 - 1.20 mg/dL [facility] LABORATORY Sodium 141 135 - 145 mmol/L [facility] LABORATORY Potassium 3.8 3.5 - 5.0 mmol/L [facility] LABORATORY Comment: Please note: ??Patients with WBC >100,00 0 may have falsely elevated Potassium levels. ??For accurate Potassium quantif ication in these patients send serum separator tube (gold top) for subsequent determinations. ??Contact the Clinical Chemistry Laboratory if there are any qu estions. Chloride 100 98 - 107 mmol/L [facility] LABORATORY CO2 28 22 - 31 mmol/L [facility] LABOR[facility]ORY Anion Gap 13 5 - 15 mmol/L [facility] LABORATORY Calcium 8.6 8.5 - 10.5 mg/dL [facility] LABORATORY Total Protein 6.8 6.1 - 8.0 g/dL [facility] LABORATORY Albumin 3.7 3.2 - 5.2 g/dL [facility] LABORATORY AST 11 0 - 30 unit/L [facility] LABORAT[facility] ALT 8 0 - 30 unit/L [facility]ORY Alk Phos 84 35 - 105 unit/L [facility] LABORATORY Total Bilirubin 0.3 0.2 - 1.3 mg/dL [facility] LABORATORY Estimated GFR 102 >=60 mL/min/1.73 m?? [facility] LABORATORY Comment: This patient? s estimated [...] Organization Address City/State/ZIP Code Phon e Number [address] (ABNORMAL) Magnesium (09/03/2021 12:45 AM EST) P athologist Signature Magnesium 1.16 (H) 0.69 - 1.07 [facility]/L [facility] Comment: result rechecked-doc Specimen Anatomical Collection Method Collection Time Receive d Time (Source) Location / / Volume Laterality Blood 09/03/2021 12:45 09/03/2021 AM EST 12:56 AM EST Resulting Agency Comment Spec In Lab Tameka Chu MD CHEMISTRY ORDERABLES Performing Organization Address City/State/ZIP Code Phon e Number [address] Potassium (09/02/2021 10:05 PM EST) P athologist Signature Potassium 3.9 3.5 - 5.0 [facility] mmol/L [facility] Comment: Please note: ??Patients [...] Chu MD CHEMISTRY ORDERABLES Performing Organization Address City/[facility]/[place] [address] Heparin (unfractionated) Level (09/02/2021 10:05 PM EST) athologist Signature Heparin UFH 0.72 IU/mL [facility] LABORATORY Comment: Heparin (anti-Xa) levels should be [...] Gant MD HEMATOLOGY ORDERABLES Performing Organization Address City/[facility]/[place] [address] POCT Glucose (09/02/2021 8:37 PM EST) athologist Signature POC Glucose 104 65 - 199 [facility] mg/dL [facility] Comment: Supplemental ranges: <140 mg/dL before meals <180 mg/dL all other times of the day Specimen Anatomical Collection Method Collection Time Receive d Time (Source) Location / / Volume Laterality Blood 09/02/2021 8:37 PM 8:37 EST PM EST Tameka Chu MD POINT OF CARE TEST ORDERAB LES Performing Organization Address City/State/[place] [address] (ABNORMAL) BLOOD GAS 2 ARTERIAL (09/02/2021 5:45 PM EST) Analysis Performed At Patho logist Time Signature pH Art 7.43 7.35 - [facility] 7.45 [facility] pCO2 Art 39 35 - 45 [facility] LABORATORY pO2 Art 89 85 - 104 [facility] LABORATORY HCO3 Art 24.9 20.0 - [facility] 26.[address] [facility] mmol/L [facility] LABORATORY BE Art 0.6 -3.0 - 3.0 [facility] mmol/L [facility] Hgb Blood Gas 10.0 (L) 11.7 - [facility] 15.5 g/dL [facility] O2HB Art 95.5 94.0 - [facility] 97.0 % [facility] COHB Art 0.4 % [facility] LABORATORY Comment: Nonsmokers: 0.5-1.5% COHB Smokers: Variable, but usually less than 10% Toxic: 20-30% COHB Lethal: Greater than 60% COHB METHB Art 0.7 <=1.5 % [facility] LABORATORY Na Whole Blood 137 135 - 145 mmol/L [facility] LABORATORY K Whole Blood 3.5 3.5 - 5.0 mmol/L [facility] LABORATORY Comment: Please note: Patients with WBC >100,000 may have falsely elevated Potassium levels. Contact the Clinical Chemistry L aboratory if there are any questions. ICa Whole Blood 1.03 (L) 1.15 - 1.33 mmol/L [facility] LABORATORY Comment: Note: ??Total bilirubin higher than 20 m g/dL may lead to falsely low ionized calcium. CL Whole Blood 103 98 - 107 mmol/L [facility] LABORATORY Gluc Whole Bld 117 65 - 199 mg/dL [facility] LABORATORY Comment: Diabetes: >=200 mg/dL plus symp toms. Lactate WB 1.2 0.5 - 2.2 mmol/L [facility] LABORATORY FIO2 Art 40 % [facility] LABORATORY PF Ratio Art 222 [facility] LABORATORY Specimen Anatomical Collection Method Collection Time Receive d Time (Source) Location / / Volume Laterality Blood 09/02/2021 5:45 PM 5:45 EST PM EST Tameka Chu MD CHEMISTRY ORDERABLES Performing Organization Address City/State/[place] [address] XR Chest One View (09/02/2021 5:45 PM EST) Anatomical Region Laterality Modality Chest N/A Digital Radiography Specimen (Source) Anatomical Location Collection Method / Collectio n Time Received Time / Laterality Volume Impressions 09/02/2021 7:28 PM EST Pulmonary vascular congestion. Wendover-Tavia catheter tip at the right main pulmonary artery. Radiopaque marker of IABP catheter at th e aortic knob. Thank you for letting us participate in the care of this patient. ??If you are a health care provider and have any questi ons regarding this report, please contact the number below. ??For patients who have questions please contact the health child caregiver that requested your imaging first. ? Narrative 09/02/2021 7:28 PM EST EXAMINATION: XR CHEST ONE VIEW CLINICAL HISTORY: sob TECHNIQUE: 1 view of the chest COMPARISON: March 11, 2011 FINDINGS: Left internal jugular central venous she ath with Wendover-Tavia catheter at the right main pulmonary artery. IABP in place with radiopaque marker at the apical edge of the aortic knob. No mass. No consolidation. Bronchovascul ar haziness. Mild pulmonary vascular redistribution. No pleural effusion. No pneumothorax. Cardiac, mediastinal hilar contours are within normal limits. No ac devante bony fractures. Procedure Note Billie Juan MD - 09/02/2021 EXAMINATION: XR CHEST ONE VIEW CLINICAL HISTORY: sob TECHNIQUE: 1 view of the chest COMPARISON: March 11, 2011 FINDINGS: Left internal jugular central venous she ath with Wendover-Tavia catheter at the right main pulmonary artery. IABP in place with radiopaque marker at the apical edge of the aortic knob. No mass. No consolidation. Bronchovascul ar haziness. Mild pulmonary vascular redistribution. No pleural effusion. No pneumothorax. Cardiac, mediastinal hilar contours are within normal limits. No ac devante bony fractures. IMPRESSION Pulmonary vascular congestion. Wendover-Tavia catheter tip at the right main pulmonary artery. Radiopaque marker of IABP catheter at th e aortic knob. Thank you for letting us participate in the care of this patient. If you are a health care provider and have any questi ons regarding this report, please contact the number below. For patients w ho have questions please contact the health child caregiver that requested your imaging first. Jay Jay Gant MD IMG DX ORDERABLES Type and Screen Validity (09/02/2021 5:40 PM EST) [facility] gist Method Time Signature T&S only valid [facility] Comment: This Type and Screen result is only valid at the [facility] Hospital Specimen Anatomical Collection Method Collection Time Receive d Time (Source) Location / / Volume Laterality Blood 09/02/2021 5:40 PM 6:36 EST PM EST Resulting Agency Comment Spec In Lab Mirza Robbins DO BLOOD BANK ORDERABLES Performing Organization Address City/State/[place] [address] Scan, Peripheral Blood (09/02/2021 5:40 PM EST) [facility] Method Time Signature Plat Estimate Increased [facility] RBC Morphology Abnormal [facility] Microcytes 1-5 /HPF [facility] Specimen Anatomical Collection Method Collection Time Receive d Time (Source) Location / / Volume Laterality Blood 09/02/2021 5:40 PM 6:29 EST PM EST Resulting Agency Comment Spec In Lab Yumi Garcia MD HEMATOLOGY ORDERABLES Performing Organization Address City/[facility]/ZIP Code Phon e Number [address] ABORH Recheck Status (09/02/2021 5:40 PM EST) [facility] Signature ABORH Recheck Order Placed [facility] LABORATORY ABORH Type Complete [facility] LABORATORY Specimen Anatomical Collection Method Collection Time Receive d Time (Source) Location / / Volume Laterality Blood 09/02/2021 5:40 PM 6:36 EST PM EST Resulting Agency Comment Spec In Lab Mirza Robbins DO BLOOD BANK ORDERABLES Performing Organization Address City/[facility]/ZIP Code Phon e Number [address] Blue Tube HOLD (09/02/2021 5:40 PM EST) P athologist Signature Blue Hold Sample in [facility] LABORATORY Specimen Anatomical Collection Method Collection Time Receive d Time (Source) Location / / Volume Laterality Blood Venous Draw / 09/02/2021 5:40 PM 09/02/20 21 6:29 Unknown EST PM EST Yumi Garcia MD HEMATOLOGY ORDERABLES Performing Organization Address City/[facility]/ZIP Code Phon e Number [address] Antibody screen (09/02/2021 5:40 PM EST) Patholo gist Method Time Signature Ab Screen Negative [facility] LABORATORY Expires at 09/05/2021 MIGUEL JOSE DAVID [id number] on: [facility] Specimen Anatomical Collection Method Collection Time Receive d Time (Source) Location / / Volume Laterality Blood 09/02/2021 5:40 PM 1 6:36 EST PM EST Resulting Agency Comment Spec In Lab Mirza Robbins DO BLOOD BANK ORDERABLES Performing Organization Address City/[facility]/[place] [address] ABO/Rh Typing (09/02/2021 5:40 PM EST) athologist Signature ABORh Type O Pos [facility] Specimen Anatomical Collection Method Collection Time Receive d Time (Source) Location / / Volume Laterality Blood 09/02/2021 5:40 PM 1 6:36 EST PM EST Resulting Agency Comment Spec In Lab Mirza Robbins DO BLOOD BANK ORDERABLES Performing Organization Address City/[facility]/[place] [address] (ABNORMAL) Magnesium (09/02/2021 5:40 PM EST) athologist Signature Magnesium 0.65 (L) 0.69 - 1.07 [facility] mmol/L [facility] Specimen Anatomical Collection Method Collection Time Receive d Time (Source) Location / / Volume Laterality Blood 09/02/2021 5:40 PM 6:28 EST PM EST Resulting Agency Comment Spec In Lab Tameka Chu MD CHEMISTRY ORDERABLES Performing Organization Address City/[facility]/[place] [address] (ABNORMAL) BMP w/fasting Glucose (09/02/2021 5:40 PM EST) P athologist Signature Glucose 117 (H) 65 - 99 [facility] Fasting mg/dL [facility] Comment: ?Fasting* Glucose Interpretive [...] of Diabetes Mellitus, Position Statement from the [employer]. ??Diabete s Care, Volume 33, Supplement 1, Oct 2009 BUN 12 8 - 18 mg/dL [facility] Creatinine 0.63 (L) 0.70 - 1.20 mg/dL [facility]OR[facility] Sodium 140 135 - 145 mmol/L [facility] Potassium 3.9 3.5 - 5.0 mmol/L [facility] Comment: Please note: ??Patients with WBC >100,00 0 may have falsely elevated Potassium levels. ??For accurate Potassium quantif ication in these patients send serum separator tube (gold top) for subsequent determinations. ??Contact the Clinical Chemistry Laboratory if there are any qu estions. Chloride 102 98 - 107 mmol/L [facility] CO2 26 22 - 31 mmol/L [facility] Anion Gap 12 5 - 15 mmol/L [facility] Calcium 8.5 8.5 - 10.5 mg/dL [facility] Estimated GFR 108 >=60 mL/min/1.73 m?? [facility] Comment: This patient? s estimated [...] Organization Address City/State/ZIP Code Phon e Number [address] Vitamin B12 (09/02/2021 5:40 PM EST) athologist Signature Vitamin B-12 747 232 - 1,245 [facility] pg/mL [facility] Specimen Anatomical Collection Method Collection Time Receive d Time (Source) Location / / Volume Laterality Blood 09/02/2021 5:40 PM 6:29 EST PM EST Resulting Agency Comment Spec In Lab Yumi Garcia MD CHEMISTRY ORDERABLES Performing Organization Address City/[facility]/[place] [address] TSH (09/02/2021 5:40 PM EST) athologist Signature TSH 2.32 0.27 - 4.20 [facility] mcIU/mL [facility] Comment: Reference Interval (mcIU/mL): Females: ??First Trimester: 0.23-3.88 ??Second Trimester: 0.22-3.90 ??Third Trimester: 0.44-4.66 Specimen Anatomical Collection Method Collection Time Receive d Time (Source) Location / / Volume Laterality Blood 09/02/2021 5:40 PM 6:28 EST PM EST Resulting Agency Comment Spec In Lab Yumi Garcia MD CHEMISTRY ORDERABLES Performing Organization Address City/[facility]/ZIP Code Phon e Number [address] (ABNORMAL) Iron and TIBC (09/02/2021 5:40 PM EST) athologist Signature Iron 33 30 - 150 [facility] mcg/dL [facility] TIBC 311 250 - 450 [facility] mcg/dL [facility] Iron Saturation 11 (L) 20 - 50 % [facility] Specimen Anatomical Collection Method Collection Time Receive d Time (Source) Location / / Volume Laterality Blood 09/02/2021 5:40 PM 6:28 EST PM EST Resulting Agency Comment Spec In Lab Yumi Garcia MD CHEMISTRY ORDERABLES Performing Organization Address City/[facility] [place] [address] (ABNORMAL) Ferritin (09/02/2021 5:40 PM EST) athologist [facility] Ferritin 207 (H) 15 - 150 [facility] ng/mL [facility] Comment: Pediatric reference ranges not verified at [facility], interpret with caution. Reference ranges for females greater chris n 50 years of age approach values for men, i.e., 30-400 ng/mL. Specimen Anatomical Collection Method Collection Time Receive d Time (Source) Location / / Volume Laterality Blood 09/02/2021 5:40 PM 6:29 EST PM EST Resulting Agency Comment Spec In Lab Yumi Garcia MD CHEMISTRY ORDERABLES Performing Organization Address City/[facility] [place] [address] (ABNORMAL) Comprehensive metabolic panel (non-fasting) (09/02/2021 5:40 PM EST) athologist Signature Glucose Lvl 117 65 - 199 [facility] mg/dL [facility] Comment: Diabetes: >=200 mg/dL plus symp toms BUN 12 8 - 18 mg/dL [facility] Creatinine 0.63 (L) 0.70 - 1.20 mg/dL [facility] Sodium 140 135 - 145 mmol/L [facility] Potassium 3.9 3.5 - 5.0 mmol/L [facility] Comment: Please note: ??Patients with WBC >100,00 0 may have falsely elevated Potassium levels. ??For accurate Potassium quantif ication in these patients send serum separator tube (gold top) for subsequent determinations. ??Contact the Clinical Chemistry Laboratory if there are any qu estions. Chloride 102 98 - 107 mmol/L [facility] CO2 26 22 - 31 mmol/L [facility] Anion Gap 12 5 - 15 mmol/L [facility] Calcium 8.5 8.5 - 10.5 mg/dL [facility] Total Protein 6.6 6.1 - 8.0 g/dL [facility] Albumin 3.7 3.2 - 5.2 g/dL [facility] AST 12 0 - 30 unit/L [facility] ALT 12 0 - 30 unit/L [facility] Alk Phos 82 35 - 105 unit/L [facility] Total Bilirubin 0.2 0.2 - 1.3 mg/dL [facility] LABOR[facility]ORY Estimated GFR 108 >=60 mL/min/1.73 m?? [facility] Comment: This patient? s estimated [...] Organization Address City/State/[place] [address] (ABNORMAL) Hemogram (09/02/2021 5:40 PM EST) Analysis Performed At Patho logist Time Signature WBC 11.6 (H) 4.0 - 9.5 [facility] x10(3)/[facility] LABORATORY RBC 3.98 (L) 4.00 - [place]EL [place] 5.[address] [facility] x10(6)/[facility] LABORATORY Hemoglobin 9.3 (L) 11.7 - [facility] 15.5 g/dL [facility] Hematocrit 29.7 (L) 35.7 - [facility] 45.8 % [facility] MCV 74.6 (L) 82.6 - [facility] 94.4 [facility] LABORATORY MCH 23.4 (L) 27.1 - [facility] 32.0 pg [facility] MCHC 31.3 (L) 31.7 - [facility] 35.0 g/dL [facility] Platelets 428 (H) 145 - 357 [facility] x10(3)/[facility] LABORATORY RDWSD 53.4 (H) 37.0 - [facility] 46.0 [facility] LABORATORY RDWCV 20.1 (H) 11.5 - [facility] 14.1 % [facility] MPV 9.3 7.6 - 12.9 [facility] LABORATORY nRBC % Auto 0.0 % [facility] nRBC Abs Auto 0.000 0.000 - [facility] 0.[address] [facility] x10(3)/[facility] LABORATORY Specimen Anatomical Collection Method Collection Time Receive d Time (Source) Location / / Volume Laterality Blood 09/02/2021 5:40 PM 6:29 EST PM EST Resulting Agency Comment Spec In Lab Yumi Garcia MD HEMATOLOGY ORDERABLES Performing Organization Address City/State/[place] [address] EKG 12 Lead (09/02/2021 5:26 PM EST) Component Value Ref Range Test Analysis Performed Pathologis t Method Time At Signature Ventricular rate 98 BPM MUSE SYSTEM Atrial Rate 98 BPM MUSE SYSTEM P-R Interval 134 ms MUSE SYSTEM QRS Duration 94 ms MUSE SYSTEM Q-T Interval 390 ms MUSE SYSTEM QTC Calculated 497 ms MUSE SYSTEM (Shaneet) Calculated P [place] 19 degrees MUSE SYSTEM Calculated R [place] 63 degrees MUSE SYSTEM Calculated T [place] 78 degrees MUSE SYSTEM INTERPRETATION Normal sinus [...] Laterality Volume Narrative 09/02/2021 11:24 PM EST ?[facility] ? Cardiac Cathete rization/Intervention Report ? Patient Name: Sho, Aracelis ? Procedure Date: 09/02/2021 ? A #: [id number] ? Primary Physician: Rafi Barrett ? Case #: [id number] ? File Name: [id number] ? Catheterization Order Number: [id number] ? [facility] ? Final Report [place], [place] ? Patient Name: ? Aracelis Sho ? ID#: ?[id number] ? : ?1975 ? Procedure Date: ? Santi 2, 202 1 ? Case #: ? [id number] ? Room: ? 5 ? Case Physician: [...] frequency, using ?cigarettes. Cigarette use is Santino louie (>=10/day). She has ?hypercholesterolemia. The patie nt [...] procedure was Urgent. The indication for ?the matlab developer visit is ACS less than or equal [...] flow was normal and was via the [place] vessel. ? The mid segment of the [...] d the left heart catheterization, ?coronary angiography, [place] (flow d irected cath) insertion, IABP insertion ?in matlab developer and oximetry. ? Rafi Barrett M.D. ? Report Finalized: 09/02/2021 ??23:17 ? Report Last Ammended: 09/14/2021 ??11:53 ? Procedure Note Rafi Barrett, - 09/14/2021Formatt ing of this note might be different from the original. [facility] Cardiac Catheterization/Intervention Re port Patient Name: December Procedure Date: 09/02/2021 A #: [id number] Primary Physician: Rafi Barrett Case #: [id number] File Name: [id number] Catheterization Order Number: [id number] [facility] [employer] [facility] Final Report [place], [place] Patient Name: Aracelis Monique ID#: [id number] : 1975 Procedure Date: September 02, 2021 Case #: [id number] Room: 5 Case Physician: Rafi Barrett M.D. St art: 15:09 Fellow: Severiano Howard M.D. Admission [...] was designated as ASA Class III. The [facility] clinical frailty scale is 3: Managing Well. Diagnostic Tests: Prior Coronary Angiography: LV ejection fraction within 6 months is 60%. Electrocardiography: EKG was assessed by ECG. EKG was Abnorm al. EKG showed T-wave inversions. Medications Prior to Procedure: Aspirin, Beta Jerri and Statin. Indications for Diagnostic Cath: The priority of the diagnostic procedur e was Urgent. The indication for the matlab developer visit is ACS less than or equal [...] was normal and w as via the [place] vessel. The mid segment of the RCA [...] performed the left heart catheterization, coronary angiography, Wend[place] (flow direct ed cath) insertion, IABP insertion in matlab developer and oximetry. Rafi Barrett M.D. Report Finalized: [...] 467 ms MUSE SYSTEM (Bezet) Calculated P [place] 40 degrees MUSE SYSTEM Calculated R [place] 35 degrees MUSE SYSTEM Calculated T [place] 68 degrees MUSE SYSTEM INTERPRETATION Sinus tachycardia MUSE SY STEM Anterior infarct , age undetermined ??vs lead placement Abnormal ECG No previous ECGs available Confirmed by Beronica Galvez ([id number]) on 09/03/2021 7:36:10 A M Specimen Anatomical Collection Method Collection Time Receive d Time (Source) Location / / Volume Laterality 09/02/2021 3:33 PM 7:36 EST AM EST Tameka Chu MD ECG ORDERABLES Performing Organization Address City/State/ZIP Code Phon e Number MUSE SYSTEM (ABNORMAL) Troponin (09/02/2021 1:30 PM EST) P athologist Signature Troponin-T 0.03 (H) 0.00 - MIGUEL WHEATJOSE DAVID 0.00 ng/mL [facility] Comment: The 99th percentile for Troponin T is le ss than 0.01 ng/mL, any detectable cTnT concentration using this assay should be considered elevated. According to the third universal definit ion of myocardial infarction the following criteria with a clinical prese ntation consistent with acute myocardial ischemia meets the diagnosis for a myocardial infarction ([place]). Detection of a rise and/or fall of [...] additional sample may be indicated. Reference: Third Court[place] Definition of Myocardial Infarction. Journal of the [employer] College [employer]iology 2012;60:1581-98 Specimen Anatomical Collection Method Collection Time Receive d Time (Source) Location / / Volume Laterality Blood 09/02/2021 1:30 PM 1:42 EST PM EST Resulting Agency Comment Spec In Lab Jay Jay Gant MD CHEMISTRY ORDERABLES Performing Organization Address City/State/ZIP Code Phon e Number [place] [id number]OS[address] LABORATORY Drive (ABNORMAL) Differential, Automated (09/02/2021 1:30 PM EST) [facility] Method Time Signature Neutrophils % 52.4 % [facility] Neutr Abs (ANC) 5.54 1.70 - [facility] 6.[address] [facility] x10(3)/[facility] LABORATORY Lymphocytes % 31.2 % [facility] Lymphocytes Abs 3.3 (H) 0.9 - 3.2 [facility] x10(3)/[facility] LABORATORY Monocytes % 7.4 % [facility] Monocyte Abs 0.8 0.3 - 0.9 [facility] x10(3)/[facility] LABORATORY Eosinophils % 8.0 % [facility] Eosinophils Abs 0.8 (H) 0.0 - 0.4 [facility] x10(3)/[facility] LABORATORY Basophils % 0.6 % [facility] Basophils Abs 0.1 0.0 - 0.1 [facility] x10(3)/[facility] LABORATORY Immature Gran % 0.40 % [facility] Comment: Immature granulocytes(IG's)percentage an d absolute count will include metamyelocytes, myelocytes, and promyelo cytes. Blood smears from CBCs yielding IG's will be scanned manually for concor dance. If this scan disagrees with the automated IG or if promyelocytes are not ed, a manual differential will be performed. Anaya Gran Abs 0.04 0.00 - 0.04 x10(3)/[facility] Specimen Anatomical Collection Method Collection Time Receive d Time (Source) Location / / Volume Laterality Blood 09/02/2021 1:30 PM 1:42 EST PM EST Resulting Agency Comment Spec In Lab Obkiarraa Rosendo DO HEMATOLOGY ORDERABLES Performing Organization Address City/State/ZIP Code Phon e Number [place] [id number]OSPITAL LABOR[address]ORY Drive (ABNORMAL) Hemogram (09/02/2021 1:30 PM EST) Analysis Performed At Patho logist Time Signature WBC 10.6 (H) 4.0 - 9.5 [facility] x10(3)/[facility] LABORATORY RBC 3.90 (L) 4.00 - [facility] 5.[address] [facility] x10(6)/[facility] LABORATORY Hemoglobin 8.9 (L) 11.7 - [facility] 15.5 g/dL [facility] Hematocrit 29.3 (L) 35.7 - [facility] 45.8 % [facility] MCV 75.1 (L) 82.6 - [facility] 94.4 [facility] LABORATORY MCH 22.8 (L) 27.1 - [facility] 32.0 pg [facility] MCHC 30.4 (L) 31.7 - [facility] 35.0 g/dL [facility] Platelets 419 (H) 145 - 357 [facility] x10(3)/[facility] LABORATORY RDWSD 54.2 (H) 37.0 - [facility] 46.0 [facility] LABORATORY RDWCV 20.0 (H) 11.5 - [place] [place] 14.1 % [facility] MPV 9.2 7.6 - 12.9 [facility] LABORATORY nRBC % Auto 0.0 % [facility] nRBC Abs Auto 0.000 0.000 - [facility] 0.[address] [facility] x10(3)/[facility] LABORATORY Specimen Anatomical Collection Method Collection Time Receive d Time (Source) Location / / Volume Laterality Blood 09/02/2021 1:30 PM 1 1:42 EST PM EST Resulting Agency Comment Spec In Lab Darrynnishi Saavedrajo ann DO HEMATOLOGY ORDERABLES Performing Organization Address City/State/[place] [address] (ABNORMAL) Hemoglobin A1c (09/02/2021 1:30 PM EST) Analysis Performed At Patho logist Time Signature Hemoglobin A1C 6.8 (H) 4.3 - 5.6 [facility] Comment: Reference Range: 4.3 - [...] 36: Suppl. 1, S67-74 Est Avg Gluc 149 mg/dL [facility] Comment: eAG equivalents for HbA1c percentages: HbA1c(%) ?eAG(mg/dL) 6.0 ?126 6.5 ?140 7.0 ?154 7.5 ?169 8.0 ?183 8.5 ?197 9.0 ?212 9.5 ?226 10.0 ? 240 Limitations: The eAG calculation has not been validated on women, individuals below 18 years old and above 70 years old, and individuals with hemoglobinopathies. Additional resources are available on [facility] website. Arnel TSE, Louis J, Anthony R, et al. ??Tr anslating the A1C assay into estimated average glucose values. ??Diabetes Care 2008:31(8):4549-4787. Specimen Anatomical Collection Method Collection Time Receive d Time (Source) Location / / Volume Laterality Blood 09/02/2021 1:30 PM 1:42 EST PM EST Resulting Agency Comment Spec In Lab Jay Jay Gant MD CHEMISTRY ORDERABLES Performing Organization Address City/State/[place] [address] Lipid Panel (Reflex Direct LDL) (09/02/2021 1:30 PM EST) P athologist Signature Chol, Total 139 mg/dL [facility] Comment: Lower Risk: <200 mg/dL Average Risk: 200-239 mg/dL Higher Risk: >pj=306 mg/dL Triglycerides 178 mg/dL [facility] Comment: Average Risk/Lower Risk: <150 mg/dL Borderline High Risk: 150-199 mg/dL High Risk: 200-499 mg/dL Very High Risk: >zp=087 mg/dL HDL 24 mg/dL [facility] Comment: Males: ?? Higher Risk: <40 mg/dL Females: ?? Higher Risk: <50 mg/dL LDL Cholesterol 79 mg/dL [facility] Comment: Lowest Risk: <100 mg/dL Lower Risk: 100-129 mg/dL Borderline High Risk: 130-159 mg/dL High Risk: 160-189 mg/dL Very High Risk: >yj=744 mg/dL Chol/HDL Ratio 5.8 ratio [facility] Lipid Interpretation See Note [facility] Comment: Lipid management should be guided by a p atient? s ASCVD risk, goals and preferences. ACC/AHA Guidelines recommend high intens ity statin if clinical ASCVD or LDL greater than or equal to 190 mg/dL. http://ECO-SAFE.com/RFQ-RLN-Hdulvkend Adults aged 40-75 with LDL 70-189 mg/dL should have their 10 year ASCVD risk estimated with the ACC/AHA ASCVD risk es timator http://tools.acc.org/SYXOF-Ychl-Zmxvsksg r/ Statin should be discussed if risk [...] Gant MD CHEMISTRY ORDERABLES Performing Organization Address City/State/[facility] [place] [address] (ABNORMAL) APTT (09/02/2021 1:30 PM EST) P athologist Signature PTT 38 (H) 25 - 37 sec [facility] Comment: The PTT is NOT [...] MD HEMATOLOGY ORDERABLES Performing Organization Address City/State/ZIP [facility] [place] [address] Prothrombin Time (09/02/2021 1:30 PM EST) P athologist Signature PT 11.9 9.4 - 12.5 [facility] LABORATORY INR 1.0 [facility] Comment: An INR <2.0 indicates [...] Gant MD HEMATOLOGY ORDERABLES Performing Organization Address City/[facility]/ZIP Code Phon e Number [place] [id number]OS[address] Drive (ABNORMAL) Hepatic Function Panel (09/02/2021 1:30 PM EST) Analysis Performed At Patho logist Time Signature Total Protein 6.5 6.1 - 8.0 [facility] DAV[facility] g/dL [facility] Albumin 3.6 3.2 - 5.2 [place] DAV[place] g/dL [facility] AST 12 0 - 30 [facility] [place] DAV[place] unit/L [facility] ALT 11 0 - 30 [facility] JO[facility] DAV[facility] unit/L [facility] Alk Phos 82 35 - 105 [facility] JOSE DAV[facility] unit/L [facility] Total <0.2 (L) 0.2 - 1.3 [facility] Bilirubin mg/dL [facility] Bili, Direct 0.1 0.0 - 0.3 [facility] JO[facility] DAVID mg/dL [facility] Specimen Anatomical Collection Method Collection Time Receive d Time (Source) Location / / Volume Laterality Blood 09/02/2021 1:30 PM 1 1:42 EST PM EST Resulting Agency Comment Spec In Lab Jay Jay Gant MD CHEMISTRY ORDERABLES Performing Organization Address City/[facility]/[place] [address] (ABNORMAL) pro-Brain Natriuretic Peptide (09/02/2021 1:30 PM EST) athologist Signature ProBNP 1,583 (H) <=124 [place] [facility] pg/mL [facility] Specimen Anatomical Collection Method Collection Time Receive d Time (Source) Location / / Volume Laterality Blood 09/02/2021 1:30 PM 1 1:42 EST PM EST Resulting Agency Comment Spec In Lab Jay Jay Gant MD CHEMISTRY ORDERABLES Performing Organization Address City/[facility]/[place] [address] Phosphorus (09/02/2021 1:30 PM EST) athologist Signature Phosphorus 3.3 2.5 - 4.5 [facility]ID mg/dL [facility] Specimen Anatomical Collection Method Collection Time Receive d Time (Source) Location / / Volume Laterality Blood 09/02/2021 1:30 PM 1 1:42 EST PM EST Resulting Agency Comment Spec In Lab Jay Jay Gant MD CHEMISTRY ORDERABLES Performing Organization Address City/[facility]/[place] [address] Magnesium (09/02/2021 1:30 PM EST) athologist Signature Magnesium 0.69 0.69 - 1.07 [facility] JOSE DAVID mmol/L [facility] Specimen Anatomical Collection Method Collection Time Receive d Time (Source) Location / / Volume Laterality Blood 09/02/2021 1:30 PM 1 1:42 EST PM EST Resulting Agency Comment Spec In Lab Jay Jay Gant MD CHEMISTRY ORDERABLES Performing Organization Address City/[facility]/ZIP [facility] [place] [address] (ABNORMAL) Basic Metabolic Panel (non-fasting) (09/02/2021 1:30 PM EST) athologist Signature Glucose Lvl 180 65 - 199 [facility] mg/dL [facility] Comment: Diabetes: >=200 mg/dL plus symp toms BUN 14 8 - 18 mg/dL [facility] Creatinine 0.65 (L) 0.70 - 1.20 mg/dL [facility] Sodium 141 135 - 145 mmol/L [facility] Potassium 4.1 3.5 - 5.0 mmol/L [facility] Comment: Please note: ??Patients with WBC >100,00 0 may have falsely elevated Potassium levels. ??For accurate Potassium quantif ication in these patients send serum separator tube (gold top) for subsequent determinations. ??Contact the Clinical Chemistry Laboratory if there are any qu estions. Chloride 105 98 - 107 mmol/L [facility] CO2 24 22 - 31 mmol/L [facility] Anion Gap 12 5 - 15 mmol/L [facility] Calcium 8.4 (L) 8.5 - 10.5 mg/dL [facility] Estimated GFR 106 >=60 mL/min/1.73 m?? [facility] Comment: This patient? s estimated [...] Address City/State/ZIP Code Phon e Number [place] [id number] (ABNORMAL) POCT Glucose (09/02/2021 1:27 PM EST) P athologist Signature POC Glucose 201 (H) 65 - 199 [facility] Comment: Supplemental ranges: <140 mg/dL before meals <180 mg/dL all other times of the day Specimen Anatomical Collection Method Collection Time Receive d Time (Source) Location / / Volume Laterality Blood 09/02/2021 1:27 PM 1:27 EST PM EST Jay Jay Gant MD POINT OF CARE TEST ORDERABLE S Performing Organization Address City/State/ZIP Code Phon e Number [address] COVID-19 PCR (09/02/2021 1:01 PM EST) Patholo gist Method Time Signature SARS-CoV-2 Not Detected Not Detected [facility] RNA PCR [facility] Comment: This result should [...] using the Simplexa COVID-19 Direct Assay by Voxastarla pradhan as authorized by the FDA issued [...] Department of Pathology and Laboratory Medicine at [facility], certified under the Clinical Laboratory Improvement [...] fact sheets at the following FDA website: https://www.fda.gov/medical-devices/kvdgheugdgq-pqdgnkf-5848-cfvtj-79-tdhpvmnxl- pyb-ptfrqxdiuttnaz-dkijbdg-devices/ulefb-gzuuvddyvby-wxdw SARS-CoV-2 Source MANAGER RADIO Swab [facility] Specimen (Source) Anatomical Collection Method Collection Time Re ceived Time Location / / Volume Laterality Nasopharyngeal Swab 09/02/2021 1:01 09/02 PM EST 2:45 PM EST Comment: Symptoms->Surveillance Resulting Agency Comment Spec In Lab Jay Jay Gant MD MICROBIOLOGY - GENERAL ORDER ERIN Performing Organization Address City/State/[place] [address] documented in this encounter Visit Diagnoses Not on filedocumented in this encounter Admitting Diagnoses Diagnosis NSTEMI [...] (R) 2 TIMES DAILY, First dose on 09/05/21 at 0930, Until Discontinued, Routine cefpodoxime (Vantin) tablet 200 mg Given 09/05/2021 [...] Take with food or water. , Routine gabapentin (Neurontin) capsule 1,200 mg Given [...] ht of tube = 37.5 grams., Routine insulin glargine (Lantus;Semglee) (100 Given 09/04/2021 9:06 PM EST 40 Units unit/mL) subcutaneous injection vial 40 Units 40 Units, Subcutaneous, NIGHTLY, First dose (after last modification) on 09/04/21 at 2100, Until Discontinued, Routine insulin lispro (HumaLOG;Admelog) (100 unit/mL) subcuta neous injection vial 0-13 Units 0-13 Units, Subcutaneous, 3 TIMES DAILY WITH MEALS, Fi rst dose (after last modification) on 09/05/21 at 1200, Un til Discontinued, MEAL ASS[employer]ATED Give 1 unit for every 2 grams carbohydrate. Hold if not eat ing or if BG less than 70 mg/dL., Routine insulin lispro (HumaLOG;Admelog) (100 Given 09/05/2021 12:28 [...] 2 hours, Routine ipratropium-albuteroL (Duoneb) 0.5 mg-3 Given 09/05/2021 11:39 [...] at 1508, Wheezing, Routine lidocaine (Lidoderm) 5% patch 1 patch [...] HOURS, First dose (after last modification) on 09/03/21 at 1430, Until Discontinued, Apply patch(es) [...] ONCE PRN, 1 dose, Startin g on Toya 09/02/21 at 1246, Until 09/05/21 [...] before or 4 hours after doxycycline, Routine metoprolol succinate XL (Toprol-XL) tablet 50 Given 12:30 PM EST 50 mg mg 50 mg, Oral, DAILY, First dose on 09/05/21 at 1200, Until Discontinued, DO NOT CRUSH OR OPEN, Routine nicotine (Nicoderm CQ) 7 Patch Applied 09/05/2021 9:04 AM 7 mg 04- Shoulder mg/24 hr patch 7 mg EST (Right) 7 mg (1 patch), Transdermal, DAILY, First dose on Toya 09/02/21 at 1345, Until Discontinued, Apply new patch [...] mg/24 hr patch. nitroGLYcerin (200 mcg/mL) in dextrose 5 % [...] Routine oxyCODONE (Roxicodone) tablet 10 mg Given 09/05/2021 11:37 AM EST 10 mg 10 mg, Oral, EVERY 6 HOURS PRN, Starting on 09/04/21 at 1400, Until 09/05/21 at 1508, Pain, Routine Given 09/05/2021 5:40 AM EST 10 mg Given 09/04/2021 11:49 PM EST 10 mg potassium chloride ER (K-Dur/Klor-Con) Given 09/02/2021 10:32 [...] at 0930, Last dose on Mon09/08/21 at 0900, Routine Given 09/04/2021 9:35 AM [...] prov ided on this medication record., Routine documented in this encounter Active and Recently Administered Medications Times are shown in EST. Scheduled Medication Order 09/03/2021 09/04/2021 09/05/2021 acetaminophen (Tylenol) tablet 975 mg 0408 (Given - Pr ovider: Chelle Burrows RN)1209 (Given - Provider: Juan Mohan, DEVAN)1634 (NOV Hold - Provider: Admin Adt - Reason: Transfer to a Procedural area)2005 (NOV Unhold - Provider: Admin Adt)205 (Given - Provider: Sharmin Dodge, DEVAN) 0445 (Not Given - Provider: Sharmin Dodge, DEVAN - Reason: Patient/family refused)1213 (Given - Provider: Ruth Barros, DEVAN)2104 (Given - Provider: Jodi Anaya, DEVAN) 0540 (Given - Provider: Jodi Anaya, DEVAN)1210 (Given - Provider: Hermelindo Yanez, DEVAN) 975 [...] area)2005 (NOV Unhold - Provider: Admin Adt) 0817 (Given - Provider: Ruth Barros, DEVAN) 0901 (Given - Provider: Hermelindo Yanez, DEVAN) 81 mg, Oral, DAILY, First dose on Mon at 0945, Until Discontinued, Routine atorvastatin (Lipitor) tablet 80 mg 1634 (NOV Hold - P rovider: Admin Adt - Reason: Transfer to a Procedural area)1700 (Automatically Held - Provider: Admin Adt)2005 (NOV Unhold - Provider: Admin Adt) 1619 (Given - Provider: Ruth Barros, DEVAN) 80 mg, Oral, EVERY EVENING, First dose o n Toya 09/02/21 at 1700, Until Discontinued, Routine budesonide (Pulmicort) nebulizer suspension 500 mcg 1000 (Given - Provider: Hermelindo Yanez, DEVAN) 500 mcg, Nebulization, (R) 2 TIMES DAILY , First dose on Mon09/05/21 at 0930, Until Discontinued, Routine budesonide-formoteroL (Symbicort) 160-4. 5 mcg/actuation inhaler 2 Inhalation (CANCELED) 918 (Given - Provider: Juan Mohan RN)1634 (NOV Hold - Provider: Admin Adt - Reason: Transfer to a Procedural area)2005 (NOV Unhold - Provider: Admin Adt)2051 (Given - Provider: Sharmin Dodge RN) 833 (Given - Provider: Ruth Barros RN) 2 Inhalation, Inhalation, 2 TIMES DAILY, First [...] RN) 900 (Given - Provider: Hermelindo Yanez , DEVAN) 75 mg, Oral, DAILY, First dose (after la st modification) on Mon09/03/21 at 0900, Until Discontinued, Routine doxycycline monohydrate (Monodox) capsule 100 mg 934 (Given - Provider: Ruth Barros RN)2104 (Given - Provider: Jodi Anaya, DEVAN) 900 (Given - Provider: Hermelindo Yanez RN) 100 mg, Oral, EVERY 12 HOURS SCHEDULED [...] mg 817 (G iven - Provider: Ruth Barros, RN) 325 mg, Oral, EVERY OTHER DAY, First dos e on 09/04/21 at 0900, Until Discontinued, DO NOT CRUSH OR OPEN. Take with food or water. , Routine furosemide (Lasix) (10 mg/mL) injection 20 mg (COMPLET ED) 910 (Given - Provider: Juan Mohan, DEVAN) 20 mg, Intravenous, ONCE, 1 dose, On Mon09/03/21 at 0945, Routin e gabapentin (Neurontin) capsule 1,200 mg(Linked Group 1 ) 163 (NOV Hold - Provider: Admin Adt - Reason: Transfer to a Procedural area)2005 ([facility] Unhold - Provider: Admin Adt)2050 (Given - Provider: Sharmin Dodge RN) 2103 (Given - Provider: Jodi Anaya, DEVAN) 1,200 mg, Oral, NIGHTLY, First dose on T hu 09/02/21 at 2100, Until Discontinued, Routine gabapentin (Neurontin) capsule 600 mg(Linked Group 1) 910 (Given - Provider: Juan Mohan, DEVAN)1209 (Given - Provider: Juan Mohan, DEVAN)163 ([facility] Hold - Provider: Admin Adt - Reason: Transfer to a Procedural area)2005 ([facility] Unhold - Provider: Admin Adt) 817 (Given - Provider: Ruth villela RN)112 (Given - Provider: Ruth Barros, DEVAN) 09 (Given - Provider: Hermelindo Yanez , DEVAN)1137 (Given - Provider: Hermelindo Yanez, DEVAN) 600 mg, Oral, USER SPECIFIED (2 times pe r day), First dose on Toya 09/02/21 at 1415, Until Discontinued, Routine insulin glargine (Lantus;Semglee) (100 u nit/mL) subcutaneous injection vial 40 Units 2105 (Given - Provider: Jodi Anaya, RN) 40 Units, Subcutaneous, NIGHTLY, First d ose (after last modification) on 09/04/21 at 2100, Until Discontinued, Routine insulin lispro (HumaLOG;Admelog) (100 un it/mL) subcutaneous injection vial 0-13 Units (CANCELED) 1746 (Given - Provider: Ruth villela RN) 0830 [...] Reason: See comment - Comment: pt in matlab developer)1634 (MAR Hold - Provider: Admin Adt - [...] parameters not met)1131 (Given - Provider: Ruth Barros, DEVAN)1422 (Given - Provider: Ruth Barros RN) 2-12 Units, Subcutaneous, EVERY 4 HOURS SCHEDULED, First dose on Mon09/04/21 at 0800, Until Discontinued, CORRECTION BOLUS [2-12 [...] Barros RN - Comment: Discussed FSBG with Mirza Robbins DO. Dose given now as Q2 [...] 2) 1228 (Given - Prov ider: Hermelindo Yanez RN - Comment: BG 256) 2-16 Units, [...] mL (CANCELED) 1442 (Given - Provider: Juan Mohan, DEVAN)1634 (MAR Hold - Provider: Admin Adt - Reason: Transfer to a Procedural area)1999 (Not Given - Provider: Sharmin Dodge RN - Reason: Patient/family refused)2005 ([facility] Unhold - Provider: Admin Adt) 0134 (Given - Provider: Sharmin Dodge, DEVAN)0800 (Not Given - Provider: Ruth Barros RN - Reason: Medication Discontinued) 3 mL, Nebulization, EVERY 6 HOURS, First dose (after last modification) on Mon09/03/21 at 1400, Until Discontinued, Routine ipratropium-albuteroL (Duoneb) 0.5 mg-3 mg(2.5 mg base)/3 mL nebulizer solution 3 mL 1129 (Given - Provider: Willy Barros RN)1618 (Given - Provider: Ruth Barros, DEVAN)1909 (Given - Provider: Marilia Corcoran RN)2348 (Given - Provider: Jodi Anaya, DEVAN) 0314 (Given - Provider: Jodi Anaya, RN)0900 (Given - Provider: eHrmelindo Yanez, RN)1139 (Given - Provider: Hermelindo Yanez, DEVAN) 3 mL, Nebulization, EVERY 4 HOURS SCHEDU LED, First dose (after last modification) on Mon09/04/21 at 1200, Until Discontinued, Routine lidocaine (Lidoderm) 5% patch 1 patch(Linked Group 3) 1430 (Not Given - Provider: Juan Mohan RN - Reason: See comment - [...] topical patch REMOVAL(Linked Grou p 3) 1634 (NOV Hold - Provider: Admin Adt - Reason: Transfer to a Procedural area)2005 (NOV Unhold - Provider: Admin Adt) 0130 (Patch [...] area)2005 (NOV Unhold - Provider: Admin Adt) 0530 (Patch Removed - Provider: Sharmin Dodge RN) 0 530 (Patch Removed - Provider: Jodi Anaya, DEVAN) Transdermal, EVERY 24 HOURS, First dose (after last modification) on 09/04/21 at 0530, Until Discontinued, Remove lidocaine 5% patch losartan (Cozaar) tablet 25 mg 0 901 (Given - Provider: Hermelindo Yanez RN) 25 mg, Oral, DAILY, First dose on Sun at 0930, Until Discontinued, Routine magnesium oxide (Mag-Ox) tablet 400 mg 1230 (Given - Provider: Hermelindo Yanez RN) 400 mg, Oral, 2 TIMES DAILY, First dose on 09/05/21 at 1300, Until Discontinued, Administer 2 hours before or 4 hours after doxycycline, Routine magnesium sulfate 2 g in sterile water 50 mL infusion (COMPL ETED) 0343 (New Bag - Provider: Sharmin Dodge RN)0543 (Stopped - Provider: Sharmin Dodge RN) 2 g, Intravenous, ONCE, 1 dose, On Sat 1 11/05/20 at 0430, Administer over 120 Minutes metoprolol succinate XL (Toprol-XL) tablet 50 mg 1230 (Given - Provider: Hermelindo Yanez RN) 50 mg, Oral, DAILY, First dose on Sun at 1200, Until Discontinued, DO NOT CRUSH OR OPEN, Routine metoprolol tartrate (Lopressor) tablet 12.5 mg (CANCELED) 0820 (Given - Provider: Ruth Barros RN)1200 (Hold - Provider: Ruth Barros RN - Reason: Contraindicated - Comment: 88/61 (71))1757 (Given - Provider: Ruth Barros RN)2348 (Given - Provider: Jodi Anaya, DEVAN) 0541 [...] on Toya 09/02/21 at 1345, Until Discontinued, Apply new patch to nonhairy, clean, dry skin on the upper body or upper outer arm; each patch should be applied to a different site , Routine nicotine (NICODERM CQ) 7 mg/24 hr patch Patch Removal( Linked Group 5) 0900 (Patch Not Removed (add comment) - Provider: Juan Mohan RN - Comment: No patch)1634 (NOV Hold - Provider: Admin Adt - Reason: Transfer to a Procedural area)2005 (NOV Unhold - Provider: Admin Adt) 0900 (Patch Removed - Provider: Ruth Barros RN - Comment: RUE) 0900 (Patch Removed - Provider: Hermelindo Yanez, DEVAN) Transdermal, DAILY, First dose on Mon at 0900, Until Discontinued, Remove nicotine 7 mg/24 hr patch nicotine (NICODERM CQ) 7 mg/24 hr patch Patch Verifica tion(Linked Group 5) 0900 (Patch (dose and location) verified - Provider: Juan Mohan RN)1634 (NOV Hold - Provider: Admin Adt - Reason: Transfer to a Procedural area)2005 (NOV Unhold - Provider: Admin Adt) 0900 (Patch (dose and location) verified - Provider: Ruth Barros RN - Comment: RUE x1)2099 (Patch (dose and location) verified - Provider: Jodi Anaya RN) 899 (Patch (dose and location) verified - Provider: Hermelindo Yanez, DEVAN) Transdermal, 2 TIMES DAILY, First dose o n 09/03/21 at 0900, Until Discontinued, Verify nicotine 7 mg/24 hr patch. 2099 (Patch (dose and location) verified - Provider: Sharmin Dodge RN) pantoprazole (Protonix) injection 40 mg (CANCELED) (Given - Provider: Juan Mohan, DEVAN)163 (NOV Hold - Provider: Admin Adt - Reason: Transfer to a Procedural area)2005 (NOV Unhold - Provider: Admin Adt)2106 (Given - Provider: Sharmin Dodge RN) 817 (Given - Provider: Ruth Barros RN) 40 mg, Intravenous, 2 TIMES DAILY, First dose (after last modification) on Toya 09/02/21 at 1830, Until Discontinued pantoprazole EC (Protonix) tablet 20 mg 20 mg, Oral, DAILY, First dose on Sun at 1330, Until Discontinued, DO NOT CRUSH OR OPEN, Routine pantoprazole EC (Protonix) tablet 40 mg (CANCELED) 900 (Given - Provider: Hermelindo Yanez, DEVAN) 40 mg, Oral, DAILY, First dose on Sun at 0900, Until Discontinued, DO NOT CRUSH OR OPEN, Routine predniSONE (Deltasone) tablet 40 mg 934 (Given - Provider: Ruth Barros RN) 900 (Given - Provider: Hermelindo Yanez , DEVAN) 40 mg, Oral, DAILY, 5 doses, First dose on 09/04/21 at 0930, Last dose on Mon09/08/21 at 0900, Routine sodium chloride 0.9 % (flush) (BD PosiFlush Normal Celestino ine 0.9) flush 5 mL 899 (Not Given - Provider: Juan Mohan RN - Reason: Contraindicated)163 (NOV Hold - Provider: Admin Adt - Reason: Transfer to a Procedural area)2005 (MAR Unhold - Provider: Admin Adt) 0827 (Given - Provider: Ruth villela RN)2099 (Not Given - Provider: Jodi Anaya [...] 5 mL 0900 (Given - Provider: Juan Mohan, DEVAN)163 ([facility] Hold - Provider: Admin Adt - Reason: Transfer to a Procedural area)2005 ([facility] Unhold - Provider: Admin Adt)2054 (Given - Provider: Sharmin Dodge, DEVAN) 08 (Given - Provider: Ruth Barros RN)2100 (Not Given - Provider: Jodi Anaya [...] than 0.1 IU/mL, administer PRN lorri 2005 (NOV Unhold - Provider: Admin Adt) us and [...] in dextrose 5% 250 mL infus ion 163 (NOV Hold - Provider: Admin Adt - Reason: Transfer to a Procedural area)2005 (NOV Unhold - Provider: Admin Adt) 0-200 mcg/min (0-60 mL/hr), Intravenous, CONTINUOUS, Starting on Toya 09/02/21 at 1845, Until 09/05/21 at 1508, Titrate to resolution of chest pain. Start at 25 mcg/min and adjust by 25 mcg/min every 5 minutes. Do not exceed 200 mcg/min., Routine sodium chloride 0.9% infusion () 1928 (New Bag - Provider: Patricia Colindres RN)2300 (Stopped - Provider: Sharmin Dodge RN) 50 mL/hr, Intravenous, CONTINUOUS, Start ing on Mon09/03/21 at 1945, Until Mon09/03/21 at 2344, Recovery (Recovery-Hospital Unit) PRN Medication [...] Chelle Burrows RN)0317 (Given - Provider: Chelle Burrows, DEVAN)0423 (Given - Provider: Chelle Burrows RN)0710 (Given - Provider: Chelle Burrows RN)0816 (Given - Provider: Kylah Martin RN) 50 mcg, Intravenous, EVERY 1 HOUR PRN, S tarting on Toya 09/02/21 at 1747, Until Mon09/03/21 at 1746, Pain, If medication ordered subcutaneously, do not administer more than 2 mL as a single injection., Routine 1000 (Given - Provider: Juan Mohan, DEVAN)1306 (Given - Provider: Kylah Martin, DEVAN)1503 (Given - Provider: Kylah Martin, DEVAN)1634 (NOV Hold - Provider: Admin Adt - Reason: Transfer to a Procedural area)2005 (NOV Unhold - Provider: Admin Adt) fentaNYL (pf) (50 mcg/mL) multi-dose injection (CANCEL ED) 1619 (Given - Provider: Wenceslao Ledesma RN)1628 (Given - Provider: Wenceslao Ledesma RN)1642 (Given - Provider: Wenceslao Ledesma, DEVAN)1647 (Given - Provider: Wenceslao Ledesma RN)1651 (Given - Provider: Wenceslao Ledesma RN)1710 (Given - Provider: Wenceslao Ledesma RN) ONCE PRN, Starting on Toya 09/02/21 at [...] (20 mg/mL) oral liquid 200 mg (CANCELED) 163 (NOV Hold - Provider: Admin Adt - Reason: Transfer to a Procedural area)2005 (NOV Unhold - Provider: Admin Adt) 0136 (Given - Provider: Sharmin Dodge, DEVAN)2117 (Given - Provider: Jodi Anaya, DEVAN) 0314 [...] Admin Adt) 0-4,000 Units, Intravenous, BOLUS PER [facility] PROTOCOL, Starting on Toya 09/02/21 at 1259, [...] iohexoL (Omnipaque) (350 mg/mL) solution (CANCELED) 19 02 (Given - Provider: Rafi Barrett MD) ONCE PRN, Starting on Mon09/03/21 at 190 2, Until Mon09/03/21 at 1903, Cath (Intra-Procedure), Routine ipratropium-albuteroL (Duoneb) 0.5 mg-3 mg(2.5 mg base)/3 mL nebulizer solution 3 mL (CANCELED) 0127 (Given - Provider: Chelle Burrows RN )0725 (Given - Provider: Marie Rodriges, RT) [...] (pf) (Versed) (1 mg/mL) injection 1 mg (CANC ELED) 1645 (Given - Provider: Wenceslao Ledesma RN) 1 mg, Intravenous, EVERY 1 HOUR PRN, 2 d oses, Starting on Toya 09/02/21 at 1721, Until Mon09/03/21 at 1903, For sheath removal, May repeat once while in Cath Recovery Unit. , Cath (Recovery-Hospital Unit), Routine midazolam (pf) (Versed) (1 mg/mL) multi-dose injection (CANCELED) 1618 (Given - Provider: Wenceslao Ledesma RN)165 (Given - Provider: Wenceslao Ledesma RN)1716 (Given - Provider: Wenceslao Ledesma RN) ONCE PRN, Starting on 09/03/21 at 161 8, Until Mon09/03/21 at 1903, [...] Humza Chin MD) ONCE PRN, Starting on 09/03/21 at 164 8, Until 09/03/21 at 1903, Cath (Intra-Procedure), Routine oxyCODONE (Roxicodone) tablet 10 mg (CANCELED) 0144 (G iven - Provider: Chelle Burrows, DEVAN)0711 (Given - Provider: Chelle Burrows RN)1208 (Given - Provider: Juan Mohan RN)1634 (NOV Hold - Provider: Admin Adt - Reason: Transfer to a Procedural area)2005 (NOV Unhold - Provider: Admin Adt) 0136 (Given - Provider: Sharmin Dodge RN)0643 (Given - Provider: Sharmin Dodge, DEVAN)1121 (Given - Provider: Ruth Barros, DEVAN) 10 mg, Oral, EVERY 4 HOURS PRN, Starting on Toya 09/02/21 at 1722, Until 09/04/21 at 1345, Pain, Routine 2050 (Given - Provider: Sharmin Dodge, DEVAN) oxyCODONE (Roxicodone) tablet 10 mg 1757 (Given - Provider: Ruth Barros, DEVAN)2349 (Given - Provider: Jodi Anaya, DEVAN) 0540 (Given - Provider: Jodileida Anaya RN)1137 (Given - Provider: Hermelindo Yanez, DEVAN) [...] (K-Dur/Klor-Con) tablet 20 mEq(L inked Group 7) 014 (See Alternative - Provider: Chelle Burrows, DEVAN)1633 ([facility] Hold - Provider: Admin Adt - Reason: Transfer to a Procedural area)2005 ([facility] Unhold - Provider: Admin Adt) 20 mEq, Oral, EVERY 4 HOURS PRN, Startin g on Toya 09/02/21 at 2037, Until 09/05/21 at 1508, hypokalemia, Administer for serum potassium (mMol/L) of 3.9 - 4 See instructions for Potassium Protocol in online policies., Routine potassium chloride ER (K-Dur/Klor-Con) tablet 40 mEq(L inked Group 7) 014 (Given - Provider: Chelle Burrows RN)1633 ([facility] Hold - Provider: Admin Adt - Reason: Transfer to a Procedural area)2005 ([facility] Unhold - Provider: Admin Adt) 40 mEq, Oral, EVERY 4 HOURS PRN, Startin g on Toya 09/02/21 at 2037, Until 09/05/21 at 1508, hypokalemia, Administer for serum potassium (mMol/L) of 3.6 - 3.8 See instructions for Potassium Protocol in online policies., Routine sodium chloride 0.9 % (flush) (BD PosiFlush Normal Celestino ine 0.9) flush 5-20 mL 1633 ([facility] Hold - Provider: Admin Adt - Reason: Transfer to a Procedural area)2005 ([facility] Unhold - Provider: Admin Adt) 5-20 mL, Intravenous, EVERY 1 MIN PRN, S tarting on Toya 09/02/21 at 1246, Until 09/05/21 at 1508, flush, Flush pertains to all indwelling lines. Flush per protocol found in the job aid using the link provided on this medication record., Routine sodium chloride 0.9 % (flush) (BD PosiFlush Normal Celestino ine 0.9) flush 5-20 mL 1634 (NOV Hold - Provider: Admin Adt - Reason: Transfer to a Procedural area)2005 (NOV Unhold - Provider: Admin Adt) 5-20 mL, Intravenous, EVERY 1 MIN PRN, S tarting on Toya 09/02/21 at 1246, Until Mon09/05/21 at 1508, flush, Flush pertains to all [...] times pe r day), First dose on Toya 09/02/21 at 1415, Until Discontinued, Routine And gabapentin (Neurontin) capsule 1,200 mgJump to med 1,200 mg, Oral, NIGHTLY, First dose on T 09/02/21 at 2100, Until Discontinued, Routine Group 2: POCT Fingerstick Glucose (CANCELED) Routine, EVERY 4 HOURS, First occurrence on [place] 09/05/21 at 1200, Until Specified
Consider choosing [...] SCHEDULED, First dose (after last modification) on [place] 09/05/21 at 1200, Until Discontinued
CORRECTION BOLUS [...]
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
--- OUTSIDE RECORDS SUMMARY | 2022-08-14 18:38 | XMS_ITS | Encounter Summary ---
:1975 [place] [address] Care Team Providers Name Role Phone Valentin Parekh MD Primary Care Provider Reason for Visit Auth/Cert Specialty Diagnoses / Procedures Referred By Contact Refer red To Contact Diagnoses NSTEMI (non-ST elevated myocardial infarction) Elevated troponin Referral ID Status Reason Start Date Expiration Date Visits Requ ested Visits Authorized [id number] 1 1 Encounter Details Date Type Department Care Team Description 09/03/2021 Surgery Underwear Welter Rafi Li, CARDIAC CATHETERIZATION [facility] [place] [address] CARDIOLOGY [phone] [place], [place] [address] (Wo rk) Social History Tobacco [...] Sign Reading Time Taken Comments Blood Pressure 83/53 09/03/2021 3:00 PM EST Pulse 91 09/03/2021 3:00 PM EST Temperature 37.1 ??C (98.8 ??F) 09/03/2021 12:00 PM EST Respiratory Rate 27 09/03/2021 3:00 PM EST Oxygen Saturation 99% 09/03/2021 3:00 PM EST Inhaled Oxygen Concentration - - Weight 77.8 kg (171 lb 8.3 oz) 09/03/2021 4:23 AM EST Height 162.6 cm (5' 4) 09/02/2021 12:29 PM EST Body Mass Index 29.97 09/02/2021 12:29 PM EST documented in this encounter Discharge Summaries Serafin Lam MD - 09/05/2021 1:08 PM EST Images from the original note were not included. Patient Name: Aracelis Monique Patient Age: 46 y.o. Language: Bruneian Race: White Ethnicity: Not nor Admit date: [...] PCP Contact Information: Valentin Parekh MD [address] [facility] [facility] / [place] [address] Pending Studies and Lab Data: none Discharge [...] of her symptoms decided to present to [facility] on 08/30. ?? At [facility], patient was tachycardic to 103 though otherwise [...] EMILEE to RCA Patient initially presented to [facility] ED with chest pain on 08/30 PM, was found to have elevated troponin and T wave inversions on EKG, with apical hypokinesis on echo. She was stabilized with nitroglycerin was started on DAPT and heparin drip, which was transitioned to therapeutic Lovenox prior to transfer. On 09/02 she was transferred to [facility], ASA/Plavix/Lovenox was continued. She was taken to the Underwear Welter where she was found to have discrete, [...] the next day 09/03 she returnedto the Underwear Welter, where EMILEE was placed distal RCA lesion. [...] OSH - ferritin 207, Tsat 11 at [facility] - started ferrous sulfate QOD on 09/04 [...] Procedure Component Value Units Date/Time COVID-19 PCR [[id number]] Collected: 09/02/21 1301 Lab Status: Final result [...] using the Simplexa COVID-19 Direct Assay by [employer] as authorized by the FDA issued Emergency Use Authorization (EUA). This assay is intended for In-vitro Diagnostic (IVD) use with nasopharyngeal swabs collected from individuals meeting the [facility] criteria for testing. The assay is performed based on the instructions for use and additional guidance provided by the FDA. Testing is performed in the Microbiology Laboratory within the Department of Pathology and Laboratory Medicine at [facility], certified under the Clinical Laboratory Improvement Amendments [...] fact sheets at the following FDA website: https://www.fda.gov/medical-devices/jiwshgqkujj-pnfrorf-8657-pdbak-45-flfbvcerc- izl-rzmrrfhjoxwwtl-evvftap-devices/ulbxo-uetbjouzfyf-flal SARS-CoV-2 Source FAMILY SERVICES MANAGER Swab Imaging: Results for orders placed or performed during the hospital encounter of 09/02/21 XR Chest One View (Exam End: 09/02/2021 5:45 PM) Impression Pulmonary vascular congestion. [place]avia catheter tip at the right main pulmonary artery. Radiopaque marker of IABP catheter at the aortic knob. Thank you for letting us participate in the care of this patient. If you are a health care provider and have any questions regarding this report, please contact the number below. For patients who have questions please contact the health career technical education teacher that requested your imaging first. Electronically signed by: Billie Juan MD, [facility] ([phone]), at 09/02/2021 7:28 PM XR Chest One View (Exam End: 09/04/2021 9:40 AM) Impression Interval removal of Win[place]ago-Tavia catheter. Interval improvement in prominence of persistent [...] who have questions please contact the health career technical education teacher that requested your imaging first. Electronically signed by: Ramos Ball MD, [facility] ([phone]), at 09/04/2021 10:10 AM TTE 09/03/21: Rhythm: Sinus BP: 99/55 ?? SUMMARY: [...] flow was normal and was via the [place] vessel. The mid segment of the RCA [...] appointments: During 8am-5pm Monday through Monday call [phone] to speak with a nurse in the cardiology clinic All other times call [phone] and ask to speak to the city sanitarian customer consulting manager. What activities can you do, and what [...] the hospital? Serafin Lam MD - Attending Magazine Supervisor Oscar Saha MD - Wildlife Biology Technician Ariel Rush MD, Obaida Dairi, DO - Resident Physicians When do I see my doctors next? No future appointments. You will need to follow up with your PCP (Valentin Parekh MD at [phone]) within 1 week of discharge - Please call to schedule an appointment within 2 weeks. You will need to follow up with your Magazine Supervisor within 1 month of discharge - We will call you when this is scheduled. For questions regarding issues relating to your hospitalization on the Cardiology Service, please contact your inpatient physician through the [facility] Electronic Repair Troubleshooter [phone] and ask for pager #[phone]. Issues after hours and on weekends will be handled by the Cardiology staff on-call. General Instructions None Inpatient Provider Contact Information: For questions regarding this document or issues relating to this hospitalization on the Medical Service, please contact your inpatient physician through the [facility] Electronic Repair Troubleshooter . Issues after hours and on weekends [...] appointments: During 8am-5pm Monday through Monday call [phone] to speak with a nurse in the cardiology clinic All other times call [phone] and ask to speak to the city sanitarian customer consulting manager. What activities can you do, and what [...] the hospital? Serafin Lam MD - Attending Magazine Supervisor Oscar Saha MD - Wildlife Biology Technician Ariel Rush MD, Mirza Robbins DO - Resident Physicians When do I see my doctors next? No future appointments. You will need to follow up with your PCP (Valentin Parekh MD at [phone]) within 1 week of discharge - Please call to schedule an appointment within 2 weeks. You will need to follow up with your Magazine Supervisor within 1 month of discharge - We will call you when this is scheduled. For questions regarding issues relating to your hospitalization on the Cardiology Service, please contact your inpatient physician through the [facility] Electronic Repair Troubleshooter [phone] and ask for pager #[phone]. Issues after hours and on weekends will [...] and we discussed follow up with a Magazine Supervisor. All questions answered and patient appreciative of [...] Martines. Xiang Peters DO Endocrinology Fellow Pager [phone] I have been in the patient's care [...] pain on opiate therapy whowas transferred from [facility] for NSTEMI (type I) found to have significant complex disease of the RCA and LAD with severely elevated LVEDP. ?Admitted to the ICU on 09/02 because she developed recurrent ischemic chest pain and flash pulmonary edema, presumed due to ischemia, and was taken emergently back to the paving and surfacing labourer for IABP placement. After aggressive diuresis and [...] denies Precautions/Special Considerations: Code Status: Full Code, [place] precautions , Room air, On telemetry Mobility [...] the socket.?? No deformity noted by this sports writer to pt's L shoulder, RN aware [...] in this evaluation. Time IN / OUT: 3449-1723 Total Minutes, Physical Therapy: 13 Billing Code: arti Bhatt PT, DPT Pager: [phone] Physical Therapy Inpatient Rehabilitation Department Serafin Lam [...] on opiate therapy who was transferred from [facility] for NSTEMI (type I) found to have significant complex disease of the RCA and LAD with severely elevated LVEDP. ?? Admitted to the ICU on 09/02 because she developed recurrent ischemic chest pain and flash pulmonary edema, presumed due to ischemia, and was taken emergently back to the paving and surfacing labourer for IABP placement. After aggressive diuresis and [...] 09/02/2021 5:45 PM) Impression Pulmonary vascular congestion. [place]-Tavia catheter tip at the right main pulmonary artery. Radiopaque marker of IABP catheter at the aortic knob. Thank you for letting us participate in the care of this patient. If you are a health care provider and have any questions regarding this report, please contact the number below. For patients who have questions please contact the health career technical education teacher that requested your imaging first. Electronically signed by: Billie Juan MD, [facility] ([phone]), at 09/02/2021 7:28 PM XR Chest One View (Exam End: 09/04/2021 9:40 AM) Impression Interval removal of [place]-Tavia catheter. Interval improvement in prominence of persistent [...] who have questions please contact the health career technical education teacher that requested your imaging first. Electronically signed by: Ramos Ball MD, [facility] ([phone]), at 09/04/2021 10:10 AM TTE 09/03/21: SUMMARY: 1. The left ventricle [...] on opiate therapy who was transferred from [facility] for NSTEMI (type I) found to have significant complex disease of the RCA and LAD with severely elevated LVEDP. ?? Admitted to the ICU on 09/02 because she developed recurrent ischemic chest pain and flash pulmonary edema, presumed due to ischemia, and was taken emergently back to the paving and surfacing labourer for IABP placement. 09/05: After aggressive diuresis [...] OSH - ferritin 207, Tsat 11 at [facility] - started ferrous sulfate QOD on 09/04 [...] Rush. Serafin Lam MD, MPH, RPVI, FACC, [facility] Pager [phone] Cardiovascular Human Anatomy TeacherCentral Sterile Supply [place] [address] Ruth Barros RN - 09/04/2021 4:52 PM [...] SOB when awake. RA to 2L NC. Bruner DC-ed. Voids spontaneously into toilet. AUOP. Unsteady [...] Dr Nena Chin MD PGY-7 Interventional Cardiology [facility] Serafin Lam MD - 09/04/2021 9:53 AM [...] on opiate therapy who was transferred from [facility] for NSTEMI (type I) found to have significant complex disease of the RCA and LAD with severely elevated LVEDP. ?? Admitted to the ICU on 09/02 because she developed recurrent ischemic chest pain and flash pulmonary edema, presumed due to ischemia, and was taken emergently back to the paving and surfacing labourer for IABP placement. After aggressive diuresis and now s/p PCI to the RCA on 09/04, patient transferred back to the CSCU. ?? 24 Hour Events/Subjective: - s/p PCI to the RCA on the evening of 09/04; AAOx4 - Continues to have productive cough and significant expiratory wheezes, on 2 L ME - Reports pleuritic chest pain as well; EKG this AM non-ischemic - Post-cath check benign overnight - IABP, RIJ, and bruner catheter removed prior to transfer back to [...] 09/02/2021 5:45 PM) Impression Pulmonary vascular congestion. [place]-Tavia catheter tip at the right main pulmonary artery. Radiopaque marker of IABP catheter at the aortic knob. Thank you for letting us participate in the care of this patient. If you are a health care provider and have any questions regarding this report, please contact the number below. For patients who have questions please contact the health career technical education teacher that requested your imaging first. Electronically signed by: Billie Juan MD, [facility] ([phone]), at 09/02/2021 7:28 PM TTE 09/03/21: SUMMARY: [...] on opiate therapy who was transferred from [facility] for NSTEMI (type I) found to have significant complex disease of the RCA and LAD with severely elevated LVEDP. ?? Admitted to the ICU on 09/02 because she developed recurrent ischemic chest pain and flash pulmonary edema, presumed due to ischemia, and was taken emergently back to the paving and surfacing labourer for IABP placement. After aggressive diuresis and [...] OSH - ferritin 207, Tsat 11 at [facility] - started ferrous sulfate QOD on 09/04 [...] course Mirza Robbins, DO PGY-3 Cardiology S2 (#[id number]) 09/04/21 CARDIOLOGY ATTENDING NOTE Patient: Aracelis Monique [...] Robbins. Serafin Lam MD, MPH, RPVI, FACC, [facility] Pager [phone] Cardiovascular Human Anatomy TeacherCentral Sterile Supply [place]ician[place] [address] Ernesto Henderson MD - 09/04/2021 6:34 AM [...] site and no issues Ernesto Henderson MD [place], Yumi Menezes MD - 09/03/2021 10:16 AM [...] on opiate therapy who was transferred from [facility] for NSTEMI (type I) found to have significant complex disease of the RCA and LAD with severely elevated LVEDP. She is admitted to the ICU because she developed recurrent ischemic chest pain and flash pulmonary edema, presumed due to ischemia, and was taken emergently back to the paving and surfacing labourer for IABP placement. The patient was seen [...] Good UOP. Net negative about 2.5L since paving and surfacing labourer ?? Pain control an ongoing issue despite [...] and DECISION MAKINyoF admitted emergently from the paving and surfacing labourer after flash pulmonary edema and refractory chest [...] until revascularized, can likely remove in the paving and surfacing labourer. Removal of PAC after reasonable as well. [...] up Monday as able/appropriate. Please page this sports writer if you have any questions, thank you. Jessica Bhatt PT, DPT Pager #[phone] Physical Therapy Inpatient Rehabilitation Serafin Salmeron MD [...] anteriorly Abd- Soft, nontender Ext- No edema LITHOGRAPH PRESS FEEDER- No gross abnormalities noted Psych- Anxious TTE [...] flow was normal and was via the [place] vessel. The mid segment of the RCA [...] infection in June 2021 who presented to [facility] with chest pain concerning for type [...] 09/02/2021 5:45 PM) Impression Pulmonary vascular congestion. Winnebago-Tavia catheter tip at the right main pulmonary artery. Radiopaque marker of IABP catheter at the aortic knob. Thank you for letting us participate in the care of this patient. If you are a health care provider and have any questions regarding this report, please contact the number below. For patients who have questions please contact the health career technical education teacher that requested your imaging first. Electronically signed by: Billie Juan MD, [facility] ([phone]), at 09/02/2021 7:28 PM TTE 09/03/21: SUMMARY: [...] infection in June 2021 who presented to [facility] with chestpain concerning for type I NSTEMI. ? In the paving and surfacing labourer, she was noted to have intervenable proximal [...] s/p 40 mg IV lasix in the paving and surfacing labourer - Goal NN 1 L --Afterload: IABP [...] OSH - ferritin 207, Tsat 11 at [facility] -consider additional IV iron while here ?? [...] Rush MD PGY1 Cardiology S2 (#[id number]) 09/03/21 [place], Yumi Menezes MD - 09/02/2021 4:39 PM [...] on opiate therapy who was transferred from [facility] for NSTEMI (type I) found to have significant complex disease of the RCA and LAD with severely elevated LVEDP. She is admitted to the ICU because she developed recurrent ischemic chest pain and flash pulmonary edema, presumed due to ischemia, and was taken emergently back to the paving and surfacing labourer for IABP placement. The patient was seen [...] PCP: Valentin Parekh MD PCP phone #: [phone] ID/Chief Complaint: Ms. Monique is a 46 yo active smoker, HLD, HTN, Type II DM, chronic pain (on opiates), family history of CAD, recent COVID-19 infection in June 2021 who presented to [facility] with chestpain concerning for type I [...] of her symptoms decided to present to [facility] on 08/30. 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 Patient's story is consistent with ACS. She was admitted to the ICCU tachycardic to the low 100s on 2 L NC, but otherwise stable. Given she is high risk (family hx, smoker, Type II DM, HLD, and HTN), we proceeded to the paving and surfacing labourer shortly after arrival. In the paving and surfacing labourer, she was noted to have intervenable proximal RCA and mid-LAD though given development of hypotension, an LVEDP of 40, and ?GI bleed (drop from 12-->9 in Hbg). GI has been consulted. For caroline, will place a IABP, aggressively diurese, and f/u GI recommendations. We are hopeful to optimize her enough to return to the paving and surfacing labourer. PLAN: Cardiovascular Pump #Elevated LVEDP --Preload: (Diuretic plan: Boluses) - s/p 40 mg IV lasix in the paving and surfacing labourer - Goal NN 1-2 L --Afterload: Place [...] DO Internal Medicine PGY-3 Cardiology S2, Pager [phone] 09/02/2021 Associated attestation - Tameka Neal MD - 09/02/2021 7:26 PM EST Cardiology Attending Addendum I was the assigned attending cloth dye range operator for this clinical encounter. For the purposes [...] infection in June 2021 who presented to [facility] with a non-ST elevation [place]. She was transferred to us and went to the Underwear Welter where she was found to have significant [...] that she was fairly hypotensive in the Underwear Welter and anytime her coronaries were injected she [...] For any additional questions, my pager is #[phone]. Tameka Coker MD MPH Advanced Heart Disease [...] R groin and RIJ sites CDI,dressing on. Bruner remains in place. Pt reported generalized chest, [...] provide a review of [facility]iary diabetes care. Patient lethargic and difficult to [...] regimen: Diabetes Provider: PCP Dr. Valentin Parekh, [facility] Medications: Tresiba 136 units daily, Humalog [...] add carb controlled/carb counting diet once eating [facility] diabetes care: Medications - Outpatient treatment regimen recommendations pending based on the hospital course. Monitoring - continue BG tid ac & hs Diet - low fat/low carb diet Exercise - weight-bearing exercise 30 min/day, as tolerated Thank you for allowing us to provide care for your patient Stacy Karthik STEEL Endocrinology Pager [phone] 70 minutes of this 80 minute visit [...] Operative Note Patient Name: Aracelis Monique : [id number] MR#: [id number] Case Date: 09/02/2021 Surgeon: Surgeon(s) and Role: * Rafi Barrett MD - Primary Preoperative diagnosis: NSTEMI Postoperative diagnosis: LAD and RCA coronary artery disease Procedures: Right radial artery access Coronary angiography [facility] Right femoral access Balloon pump placed [...] placed. Patient began feeling better. Transferred to [facility] in stable condition. Rafi Barrett MD Consult Note - Magda Upton MD - 09/02/2021 3:43 PM EST GASTROENTEROLOGY & HEPATOLOGY CONSULTATION Initial Consult Note Requesting Provider: Jay Jay Gant MD REASON FOR CONSULTATION Coffee ground emesis HISTORY OF PRESENT ILLNESS December Sho is a 46 y.o. woman with PMH DMII, HLD, HTN, recent COVID-19 infection and tobacco use whoinitially presented to [facility] with an NSTEMI and was transferred to [facility] for cardiac catheterization. GI is consulted for [...] melena at home. She then presented to [facility] ED where she was noted to have [...] plavix 75 mg daily and transferred to [facility] for ischemic evaluation. Given concerns for active ACS she was brought to the paving and surfacing labourer where she underwent cath without any intervention [...] infection and tobacco use whoinitially presented to [facility] with an NSTEMI and was transferred to [facility] for cardiac catheterization. GI is consulted for [...] M.D. Fellow in Gastroenterology and Hepatology Pager #[phone] 09/02/2021 Associated attestation - Mark Cazares MD [...] considered at that time. Mark Cazares MD [facility] Gastroenterology Plan of Care - Oscar Saha MD - 09/02/2021 1:21 PM ESTSummary: Pre-cath Images from the original note were not included. Pre Cardiac Catheterization Note 46 y.o. female presents for chest pain. History of DM on insulin, HTN, HLD, family history of CAD, and current smoker who presented to [facility] with chest pain and shortness of [...] by Dr. Wilian Toledo and transferred to [facility] for invasive work-up. She notably has a [...] Visit Cardiology Tameka Neal MD [facility] [address] [place], [place] [address] (Wo rk) Scheduled Orders Name Type [...] PM EST disease involving procedure are in [place] coronary the results artery of [place] section. heart without angina pectoris EKG 12-LEAD [...] POC Glucose 256 (H) 65 - 199 [facility] mg/dL [facility] Comment: Supplemental ranges: <140 mg/dL before meals <180 mg/dL all other times of the day Specimen Anatomical Collection Method Collection Time Receive d Time (Source) Location / / Volume Laterality Blood 09/05/2021 12:27 09/05/2021 PM EST 12:27 PM EST Serafin Lam MD POINT OF CARE TEST ORDERABLE S Performing Organization Address City/State/ZIP Code Phon e Number [place] [id number] ECHOCARDIOGRAM LMTD W CONTRAST W LMTD SPEC DOPP COLOR DOPP (09/05/2021 10:49 AM EST) athologist Signature EF 33 [facility] Anatomical Region Laterality Modality Other Specimen (Source) Anatomical Location Collection Method / Collectio n Time Received Time / Laterality Volume 09/05/2021 Narrative 09/05/2021 11:11 AM EST Amended Report Procedure: ?Transthoracic Echocardio gram Patient: ?SHO ARACELIS ?(Age): 1975(46y) Med Rec#: ? [id number] ?Sex: ?F ? Site Loc: ? [facility] ?Ht / Wt: ??163(cm)/79(kg) Pt. Loc: ?CCU ? BSA: ?1.85 Study Date: ?? 09/05/2021 ?Pt. Type: Inpatient Tape: ? Referring: Carole Serafin ??([id number]) Reading: Hernán Mariscal ([id number]) Credit And Collections Representative: Shimon García Diagnosis: *Unspecified systolic (congestive) hear [...] 09/05/2021 1 1:12:38 Images reviewed and [facility] Procedure Note Hernán Mariscal MD - 09/05/2021Formatt ing of this note might be different from the original. Amended Report Procedure: Transthoracic Echocardiogram Patient: SHO DECEMBER (Age): 1975 (46y) Med Rec#: [id number] Sex: F Site Loc: [facility] Ht / Wt: 163(cm)/79(kg) Pt. Loc: CCU BSA: 1.85 Study Date: 09/05/2021 Pt. Type: Inpatie nt Tape: Referring: Serafin Lam ([id number]) Reading: Hernán Mariscal ([id number]) Credit And Collections Representative: Shimon García Diagnosis: *Unspecified systolic (congestive) hear [...] 8 Images reviewed and interpretation verif ied [facility] Cardiac Ultrasound Laboratory Serafin Lam MD ECHO ORDERABLES POCT Glucose (09/05/2021 7:48 AM EST) athologist Signature POC Glucose 156 65 - 199 [facility] mg/dL [facility] Comment: Supplemental ranges: <140 mg/dL before meals <180 mg/dL all other times of the day Specimen Anatomical Collection Method Collection Time Receive d Time (Source) Location / / Volume Laterality Blood 09/05/2021 7:48 AM 7:48 EST AM EST Serafin Lam MD POINT OF CARE TEST ORDERABLE S Performing Organization Address City/State/[place] [address] (ABNORMAL) POCT Glucose (09/05/2021 5:38 AM EST) athologist Signature POC Glucose 213 (H) 65 - 199 [facility] mg/dL [facility] Comment: Supplemental ranges: <140 mg/dL before meals <180 mg/dL all other times of the day Specimen Anatomical Collection Method Collection Time Receive d Time (Source) Location / / Volume Laterality Blood 09/05/2021 5:38 AM 5:38 EST AM EST Serafin Lam MD POINT OF CARE TEST ORDERABLE S Performing Organization Address City/State/[place] [address] (ABNORMAL) Differential, Automated (09/05/2021 4:02 AM EST) [facility] gist Method Time Signature Neutrophils % 58.2 % [facility] Neutr Abs (ANC) 6.82 (H) 1.70 - [facility] 6.10 [facility] x10(3)/[facility] LABORATORY Lymphocytes % 31.2 % [facility] Lymphocytes Abs 3.7 (H) 0.9 - 3.2 [facility] x10(3)/[facility] LABORATORY Monocytes % 8.0 % [facility] Monocyte Abs 0.9 0.3 - 0.9 [facility] x10(3)/[facility] LABORATORY Eosinophils % 2.0 % [facility] Eosinophils Abs 0.2 0.0 - 0.4 [facility] x10(3)/[facility] LABORATORY Basophils % 0.3 % [facility] Basophils Abs 0.0 0.0 - 0.1 [facility] x10(3)/[facility] LABORATORY Immature Gran % 0.30 % [facility] Comment: Immature granulocytes(IG's)percentage an d absolute count will include metamyelocytes, myelocytes, and promyelo cytes. Blood smears from CBCs yielding IG's will be scanned manually for concor dance. If this scan disagrees with the automated IG or if promyelocytes are not ed, a manual differential will be performed. Anaya Gran Abs 0.04 0.00 - 0.04 x10(3)/[facility] LABORATORY Specimen Anatomical Collection Method Collection Time Receive d Time (Source) Location / / Volume Laterality Blood 09/05/2021 4:02 AM 4:17 EST AM EST Resulting Agency Comment Spec In Lab Mirza Robbins DO HEMATOLOGY ORDERABLES Performing Organization Address City/State/[place] [address] (ABNORMAL) Hemogram (09/05/2021 4:02 AM EST) Analysis Performed At Patho logist Time Signature WBC 11.7 (H) 4.0 - 9.5 [facility] x10(3)/[facility] LABORATORY RBC 3.88 (L) 4.00 - [facility] 5.21 [facility] x10(6)/[facility] LABORATORY Hemoglobin 9.0 (L) 11.7 - [facility] 15.5 g/dL [facility] Hematocrit 29.5 (L) 35.7 - [facility] 45.8 % [facility] MCV 76.0 (L) 82.6 - [facility] 94.4 [facility] LABORATORY MCH 23.2 (L) 27.1 - [facility] 32.0 pg [facility] MCHC 30.5 (L) 31.7 - [facility] 35.0 g/dL [facility] Platelets 347 145 - 357 [facility] x10(3)/[facility] LABORATORY RDWSD 55.1 (H) 37.0 - [facility] 46.0 [facility] LABORATORY RDWCV 21.3 (H) 11.5 - [facility] 14.1 % [facility] MPV 9.8 7.6 - 12.9 [facility] LABORATORY nRBC % Auto 0.0 % [facility] nRBC Abs Auto 0.000 0.000 - [facility] 0.000 [facility] x10(3)/[facility] LABORATORY Specimen Anatomical Collection Method Collection Time Receive d Time (Source) Location / / Volume Laterality Blood 09/05/2021 4:02 AM 4:17 EST AM EST Resulting Agency Comment Spec In Lab Mirza Robbins DO HEMATOLOGY ORDERABLES Performing Organization Address City/State/[place] [address] (ABNORMAL) CMP w/fasting Glucose (09/05/2021 4:02 AM EST) P athologist Signature Glucose 224 (H) 65 - 99 [facility]/dL [facility] Comment: ?Fasting* Glucose Interpretive [...] of Diabetes Mellitus, Position Statement from the [place] [employer]. ??Diabete s Care, Volume 33, Supplement 1, Oct 2009 BUN 25 (H) 8 - 18 mg/dL [facility]ORY Creatinine 0.68 (L) 0.70 - 1.20 mg/dL [facility] Sodium 139 135 - 145 mmol/L [facility] Potassium 4.3 3.5 - 5.0 mmol/L [facility] Comment: Please note: ??Patients with WBC >100,00 0 may have falsely elevated Potassium levels. ??For accurate Potassium quantif ication in these patients send serum separator tube (gold top) for subsequent determinations. ??Contact the Clinical Chemistry Laboratory if there are any qu estions. Chloride 103 98 - 107 mmol/L [facility] CO2 24 22 - 31 mmol/L [facility] Anion Gap 12 5 - 15 mmol/L [facility] LABORATORY Calcium 9.5 8.5 - 10.5 mg/dL [facility] Total Protein 6.7 6.1 - 8.0 g/dL [facility] Albumin 3.5 3.2 - 5.2 g/dL [facility] AST 9 0 - 30 unit/L [facility] LABORATORY ALT 7 0 - 30 unit/L [facility] LABORATORY Alk Phos 89 35 - 105 unit/L [facility] Total Bilirubin <0.2 (L) 0.2 - 1.3 mg/dL [facility] LABORATORY Estimated GFR 105 >=60 mL/min/1.73 m?? [facility] Comment: This patient? s estimated [...] Organization Address City/State/[place] [address] Magnesium (09/05/2021 4:02 AM EST) athologist Signature Magnesium 0.79 0.69 - 1.07 [facility] mmol/L [facility] Specimen Anatomical Collection Method Collection Time Receive d Time (Source) Location / / Volume Laterality Blood 09/05/2021 4:02 AM 4:17 EST AM EST Resulting Agency Comment Spec In Lab Tameka Chu MD CHEMISTRY ORDERABLES Performing Organization Address City/State/[place] [address] (ABNORMAL) POCT Glucose (09/04/2021 11:46 PM EST) athologist Signature POC Glucose 214 (H) 65 - 199 [facility] mg/dL [facility] Comment: Supplemental ranges: <140 mg/dL before meals <180 mg/dL all other times of the day Specimen Anatomical Collection Method Collection Time Receive d Time (Source) Location / / Volume Laterality Blood 09/04/2021 11:46 09/04/2021 PM EST 11:46 PM EST Serafin Lam MD POINT OF CARE TEST ORDERABLE S Performing Organization Address City/[facility]/ZIP Code Phon e Number [address] (ABNORMAL) POCT Glucose (09/04/2021 9:01 PM EST) athologist Signature POC Glucose 281 (H) 65 - 199 [facility] mg/dL [facility] Comment: Supplemental ranges: <140 mg/dL before meals <180 mg/dL all other times of the day Specimen Anatomical Collection Method Collection Time Receive d Time (Source) Location / / Volume Laterality Blood 09/04/2021 9:01 PM 9:01 EST PM EST Serafin Lam MD POINT OF CARE TEST ORDERABLE S Performing Organization Address City/State/[place] [address] (ABNORMAL) POCT Glucose (09/04/2021 5:45 PM EST) P athologist Signature POC Glucose 287 (H) 65 - 199 [facility] mg/dL [facility] Comment: Supplemental ranges: <140 mg/dL before meals <180 mg/dL all other times of the day Specimen Anatomical Collection Method Collection Time Receive d Time (Source) Location / / Volume Laterality Blood 09/04/2021 5:45 PM 5:45 EST PM EST Serafin Lam MD POINT OF CARE TEST ORDERABLE S Performing Organization Address City/State/[place] [address] (ABNORMAL) POCT Glucose (09/04/2021 4:17 PM EST) P athologist Signature POC Glucose 296 (H) 65 - 199 [facility] mg/dL [facility] Comment: Supplemental ranges: <140 mg/dL before meals <180 mg/dL all other times of the day Specimen Anatomical Collection Method Collection Time Receive d Time (Source) Location / / Volume Laterality Blood 09/04/2021 4:17 PM 4:17 EST PM EST Serafin Lam MD POINT OF CARE TEST ORDERABLE S Performing Organization Address City/State/[place] [address] (ABNORMAL) POCT Glucose (09/04/2021 2:21 PM EST) P athologist Signature POC Glucose 373 (H) 65 - 199 [facility] [facility] mg/dL [facility] Comment: Supplemental ranges: <140 mg/dL before meals <180 mg/dL all other times of the day Specimen Anatomical Collection Method Collection Time Receive d Time (Source) Location / / Volume Laterality Blood 09/04/2021 2:21 PM 2:21 EST PM EST Serafin Lam MD POINT OF CARE TEST ORDERABLE S Performing Organization Address City/[facility]/[place] [address] (ABNORMAL) POCT Glucose (09/04/2021 11:32 AM EST) P athologist Signature POC Glucose 262 (H) 65 - 199 [facility]/dL [facility] Comment: Supplemental ranges: <140 mg/dL before meals <180 mg/dL all other times of the day Specimen Anatomical Collection Method Collection Time Receive d Time (Source) Location / / Volume Laterality Blood 09/04/2021 11:32 09/04/2021 AM EST 11:32 AM EST Serafin Lam MD POINT OF CARE TEST ORDERABLE S Performing Organization Address City/[facility]/ZIP [place] [address] POCT Glucose (09/04/2021 10:14 AM EST) P athologist Signature POC Glucose 174 65 - 199 [facility] mg/dL [facility] Comment: Supplemental ranges: <140 mg/dL before meals <180 mg/dL all other times of the day Specimen Anatomical Collection Method Collection Time Receive d Time (Source) Location / / Volume Laterality Blood 09/04/2021 10:14 09/04/2021 AM EST 10:14 AM EST Serafin Lam MD POINT OF CARE TEST ORDERABLE S Performing Organization Address City/State/[place] [address] XR Chest One View (09/04/2021 9:40 AM EST) Anatomical Region Laterality Modality Chest N/A Digital Radiography Specimen (Source) Anatomical Location Collection Method / Collectio n Time Received Time / Laterality Volume Impressions 09/04/2021 10:10 AM EST Interval removal of [place]-Tavia catheter. Interval improvement in prominence of persistent [...] who have questions please contact the health career technical education teacher that requested your imaging first. ? Electronically signed by: Ramos jaquez MD, [facility] ([phone]), at 09/04/2021 10:10 AM Narrative 09/04/2021 10:10 AM EST EXAMINATION: XR [...] FINDINGS: See impression. IMPRESSION Interval removal of [place]-Tavia catheter. Interval improvement in prominence of persistent [...] ho have questions please contact the health career technical education teacher that requested your imaging first. Electronically signed by: Ramos jaquez MD, [facility] ([phone]), at 09/04/2021 10:10 AM Serafin Lam MD IMG DX ORDERABLES POCT Glucose (09/04/2021 8:03 AM EST) athologist Signature POC Glucose 107 65 - 199 [place] [facility] mg/dL [facility] Comment: Supplemental ranges: <140 mg/dL before meals <180 mg/dL all other times of the day Specimen Anatomical Collection Method Collection Time Receive d Time (Source) Location / / Volume Laterality Blood 09/04/2021 8:03 AM 8:03 EST AM EST Serafin Lam MD POINT OF CARE TEST ORDERABLE S Performing Organization Address City/State/[place] [address] (ABNORMAL) POCT Glucose (09/04/2021 6:02 AM EST) athologist Signature POC Glucose 264 (H) 65 - 199 [facility] mg/dL [facility] Comment: Supplemental ranges: <140 mg/dL before meals <180 mg/dL all other times of the day Specimen Anatomical Collection Method Collection Time Receive d Time (Source) Location / / Volume Laterality Blood 09/04/2021 6:02 AM 6:02 EST AM EST Serafin Lam MD POINT OF CARE TEST ORDERABLE S Performing Organization Address City/State/[place] [address] (ABNORMAL) POCT Glucose (09/04/2021 4:02 AM EST) athologist Signature POC Glucose 285 (H) 65 - 199 [facility] mg/dL [facility] Comment: Supplemental ranges: <140 mg/dL before meals <180 mg/dL all other times of the day Specimen Anatomical Collection Method Collection Time Receive d Time (Source) Location / / Volume Laterality Blood 09/04/2021 4:02 AM 4:02 EST AM EST Serafin Lam MD POINT OF CARE TEST ORDERABLE S Performing Organization Address City/State/Z[place] [address] (ABNORMAL) BMP w/fasting Glucose (09/04/2021 2:47 AM EST) athologist Signature Glucose 362 (H) 65 - 99 [facility] Fasting mg/dL [facility] Comment: result rechecked-rg ?Fasting* Glucose [...] of Diabetes Mellitus, Position Statement from the [place] [employer]. ??Diabete s Care, Volume 33, Supplement 1, Oct 2009 BUN 16 8 - 18 mg/dL [facility] Creatinine 0.69 (L) 0.70 - 1.20 mg/dL [facility] Sodium 140 135 - 145 mmol/L [facility] Potassium 4.4 3.5 - 5.0 mmol/L [facility] Comment: Please note: ??Patients with WBC >100,00 0 may have falsely elevated Potassium levels. ??For accurate Potassium quantif ication in these patients send serum separator tube (gold top) for subsequent determinations. ??Contact the Clinical Chemistry Laboratory if there are any qu estions. Chloride 104 98 - 107 mmol/L [facility] CO2 Not Perf - [facility] Comment: Add-on request. Sample too old to perform test. Anion Gap Unable to Calculate 5 - 15 mmol/L [facility] Calcium 8.9 8.5 - 10.5 mg/dL [facility] Estimated GFR 104 >=60 mL/min/1.73 m?? [facility] Comment: This patient? s estimated [...] Organization Address City/State/ZIP Code Phon e Number [place] [id number] (ABNORMAL) Differential, Automated (09/04/2021 2:47 AM EST) [facility] gist Method Time Signature Neutrophils % 62.4 % [facility] Neutr Abs (ANC) 5.80 1.70 - [facility] 6.10 [facility] x10(3)/[facility] LABORATORY Lymphocytes % 23.0 % [facility] Lymphocytes Abs 2.1 0.9 - 3.2 [facility] x10(3)/[facility] LABORATORY Monocytes % 6.8 % [facility] Monocyte Abs 0.6 0.3 - 0.9 [facility] x10(3)/[facility] LABORATORY Eosinophils % 7.0 % [facility] Eosinophils Abs 0.6 (H) 0.0 - 0.4 [facility] x10(3)/[facility] LABORATORY Basophils % 0.4 % [facility] Basophils Abs 0.0 0.0 - 0.1 [facility] x10(3)/[facility] LABORATORY Immature Gran % 0.40 % [facility] Comment: Immature granulocytes(IG's)percentage an d absolute count will include metamyelocytes, myelocytes, and promyelo cytes. Blood smears from CBCs yielding IG's will be scanned manually for concor dance. If this scan disagrees with the automated IG or if promyelocytes are not ed, a manual differential will be performed. Anaya Gran Abs 0.04 0.00 - 0.04 x10(3)/[facility] LABORATORY Specimen Anatomical Collection Method Collection Time Receive d Time (Source) Location / / Volume Laterality Blood 09/04/2021 2:47 AM 2:51 EST AM EST Resulting Agency Comment Spec In Lab Mirza Robbins DO HEMATOLOGY ORDERABLES Performing Organization Address City/State/[place] [address] (ABNORMAL) Hemogram (09/04/2021 2:47 AM EST) Analysis Performed At Patho logist Time Signature WBC 9.3 4.0 - 9.5 [facility] x10(3)/[facility] LABORATORY RBC 4.04 4.00 - [facility] 5[facility]21 [facility] x10(6)/[facility] LABORATORY Hemoglobin 9.4 (L) 11.7 - [facility] g/dL [facility] Hematocrit 30.9 (L) 35.7 - [facility] 45.8 % [facility] MCV 76.5 (L) 82.6 - [facility] 94.4 [facility] LABORATORY MCH 23.3 (L) 27.1 - [facility] 32.0 pg [facility] MCHC 30.4 (L) 31.7 - [facility] 35.0 g/dL [facility] Platelets 358 (H) 145 - 357 [facility] x10(3)/[facility] LABORATORY RDWSD 54.8 (H) 37.0 - [facility] 46.0 [facility] LABORATORY RDWCV 20.7 (H) 11.5 - [facility] 14.1 % [facility] MPV 9.7 7.6 - 12.9 [facility] LABORATORY nRBC % Auto 0.0 % [facility] nRBC Abs Auto 0.000 0.000 - [facility] 0.000 [facility] x10(3)/[facility] LABORATORY Specimen Anatomical Collection Method Collection Time Receive d Time (Source) Location / / Volume Laterality Blood 09/04/2021 2:47 AM 1 2:51 EST AM EST Resulting Agency Comment Spec In Lab Mirza Saavedrajo ann [place] HEMATOLOGY ORDERABLES Performing Organization Address City/[facility]/ZIP Code Phon e Number [address] Magnesium (09/04/2021 2:47 AM EST) athologist Signature Magnesium 0.89 0.69 - 1.07 [facility] mmol/L [facility] Specimen Anatomical Collection Method Collection Time Receive d Time (Source) Location / / Volume Laterality Blood 09/04/2021 2:47 AM 1 2:51 EST AM EST Resulting Agency Comment Spec In Lab Tameka Chu MD CHEMISTRY ORDERABLES Performing Organization Address City/State/[place] [address] (ABNORMAL) POCT Glucose (09/04/2021 2:08 AM EST) athologist Signature POC Glucose 356 (H) 65 - 199 [facility] mg/dL [facility] Comment: Supplemental ranges: <140 mg/dL before meals <180 mg/dL all other times of the day Specimen Anatomical Collection Method Collection Time Receive d Time (Source) Location / / Volume Laterality Blood 09/04/2021 2:08 AM 1 2:08 EST AM EST Serafin Lam MD POINT OF CARE TEST ORDERABLE S Performing Organization Address City/[facility]/ZIP Code Phon e Number [address] (ABNORMAL) POCT Glucose (09/04/2021 12:12 AM EST) athologist Signature POC Glucose 326 (H) 65 - 199 [facility] mg/dL [facility] Comment: Supplemental ranges: <140 mg/dL before meals <180 mg/dL all other times of the day Specimen Anatomical Collection Method Collection Time Receive d Time (Source) Location / / Volume Laterality Blood 09/04/2021 12:12 09/04/2021 AM EST 12:12 AM EST Serafin Lam MD POINT OF CARE TEST ORDERABLE S Performing Organization Address City/[facility]/[place] [address] (ABNORMAL) Hemoglobin and Hematocrit, blood (09/03/2021 8:36 PM EST) P athologist Signature Hemoglobin 9.5 (L) 11.7 - [facility] 15.[facility] g/dL [facility] Hematocrit 30.6 (L) 35.7 - [facility] 45.8 % [facility] Specimen Anatomical Collection Method Collection Time Receive d Time (Source) Location / / Volume Laterality Blood 09/03/2021 8:36 PM 9:08 EST PM EST Resulting Agency Comment Spec In Lab Serafin Lam MD HEMATOLOGY ORDERABLES Performing Organization Address City/[facility]/[place] [address] POCT Glucose (09/03/2021 8:21 PM EST) athologist Signature POC Glucose 134 65 - 199 [facility] mg/dL [facility] Comment: Supplemental ranges: <140 mg/dL before meals <180 mg/dL all other times of the day Specimen Anatomical Collection Method Collection Time Receive d Time (Source) Location / / Volume Laterality Blood 09/03/2021 8:21 PM 8:21 EST PM EST Serafin Lam MD POINT OF CARE TEST ORDERABLE S Performing Organization Address City/[facility]/[place] [address] EKG 12 Lead (09/03/2021 7:27 PM EST) Component Value Ref Range Test Analysis Performed Pathologis t Method Time At Signature Ventricular rate 98 BPM MUSE SYSTEM Atrial Rate 98 BPM MUSE SYSTEM P-R Interval 146 ms MUSE SYSTEM QRS Duration 94 ms MUSE SYSTEM Q-T Interval 380 ms MUSE SYSTEM QTC Calculated 485 ms MUSE SYSTEM (Bezet) Calculated P [place] 35 degrees MUSE SYSTEM Calculated R [place] 38 degrees MUSE SYSTEM Calculated T [place] 80 degrees MUSE SYSTEM INTERPRETATION Normal sinus rhythm MUSE SYSTEM Anterolateral infarct (cited on or before 02-SEP-2021) Abnormal ECG When compared with ECG of 02-SEP-2021 17:26, No significant change was found Confirmed by MD Carole, Serafin ([id number]) on 09/04/2021 10:4 7:29 AM Specimen Anatomical [...] Laterality Volume Narrative 09/07/2021 5:44 PM EST ?[facility] ? Cardiac Cathete rization/Intervention Report ? Patient Name: Sho, Aracelis ? Procedure Date: 09/03/2021 ? A #: [id number] ? Primary Physician: Rafi Barrett ? Case #: [id number] ? File Name: [id number] ? Catheterization Order Number: [id number] ? [facility] ? Final Report [place], [place] ? Patient Name: ? Aracelis Sho ? ID#: ?[id number] ? : ?1975 ? Procedure Date: ? [...] procedure was Urgent. The indication for ?the paving and surfacing labourer visit is ACS great er than 24 [...] dose administered prior to arrival in the paving and surfacing labourer. ?Recommended anti-platelet/anti- thrombotic regimen: ?Continue aspirin 81 mg daily. ?Continue clopidogrel 75 mg leighann y. ?These recommendations are made at the time of the intervention. Patient ?and provider preferences or a c hanging clinical situation may require ?modification of this regimen. C onsult [facility] Interventional Cardiology for ?questions. ?The 1 year [...] device, ABG and I ABP removal in paving and surfacing labourer. ? Rafi Barrett M.D. ? Report Finalized: 09/07/2021 ??17:39 ? Report Last Ammended: 10/14/2021 ??10:24 ? Procedure Note Rafi Barrett MD - 10/14/2021Formatt ing of this note might be different from the original. [facility] Cardiac Catheterization/Intervention Re port Patient Name: Sho December Procedure Date: 09/03/2021 A #: [id number] Primary Physician: Rafi Barrett Case #: [id number] File Name: [id number] Catheterization Order Number: [id number] [facility] Underwear [facility] Final Report [place], [place] Patient Name: Aracelis Sho ID#: [id number] : 1975 Procedure Date: September 03, 2021 [...] was designated as ASA Class IV. The [facility] clinical frailty scale is 3: M anaging Well. Diagnostic Tests: Prior Coronary Angiography: LV ejection fraction within 6 months is 60%. Electrocardiography: EKG was assessed by ECG. EKG was Abnorm al. EKG showed T-wave inversions. Medications Prior to Procedure: Aspirin and Statin. Indications for Diagnostic Cath: The priority of the diagnostic procedur e was Urgent. The indication for the paving and surfacing labourer visit is ACS greater than 24 hrs. [...] administered prior t o arrival in the paving and surfacing labourer. Recommended anti-platelet/anti-thrombot ic regimen: Continue aspirin 81 mg daily. Continue clopidogrel 75 mg daily. These recommendations are made at the t yolande of the intervention. Patient and provider preferences or a changing clinical situation may require modification of this regimen. Consult [facility] Interventional Cardiology for questions. The 1 year [...] device, ABG and IABP r emoval in paving and surfacing labourer. Rafi Barrett M.D. Report Finalized: 09/07/2021 17:39 Report Last Ammended: 10/14/2021 10:24 Rafi Barrett MD CARDIAC CATH ORDERABLES (ABNORMAL) Point of Care Blood Gas Historical (09/03/2021 5:50 PM EST) [facility] Method Time Signature POC pH 7.44 7.35 - [facility] 7.45 [facility] POC PCO2 41 35 - 45 [facility] LABORATORY POC PO2 68 (L) 85 - 104 [facility] LABORATORY POC Base Excess 4.0 (H) -3.0 - 3.0 [facility] K mmol/L [facility] POC HCO3 27.8 (H) 20.0 - [facility] 26.0 [facility] mmol/[facility] LAB[facility] POC Sodium 137 135 - 145 [facility] mmol/L [facility] POC Potassium 4.1 3.5 - 5.0 [facility] mmol/L [facility] POC Hematocrit 28.0 (L) 34.0 - [facility] 45.0 % [facility] POC Calc Hgb 9.5 (L) 11.2 - [facility] 15.7 g/dL [facility] Comment: The calculation of hemoglobin f rom hematocrit assumes a normal MCHC. POC Bgas Loc CC LAB [facility] Specimen Anatomical Collection Method Collection Time Receive d Time (Source) Location / / Volume Laterality Blood 09/03/2021 5:50 PM 9:00 EST AM EST Serafin Lam MD CHEMISTRY ORDERABLES Performing Organization Address City/State/ZIP Code Phon e Number [address] POCT Glucose (09/03/2021 12:09 PM EST) athologist Signature POC Glucose 112 65 - 199 [facility] mg/dL [facility] Comment: Supplemental ranges: <140 mg/dL before meals <180 mg/dL all other times of the day Specimen Anatomical Collection Method Collection Time Receive d Time (Source) Location / / Volume Laterality Blood 09/03/2021 12:09 09/03/2021 PM EST 12:09 PM EST Serafin Lam MD POINT OF CARE TEST ORDERABLE S Performing Organization Address City/State/[place] [address] Heparin (unfractionated) Level (09/03/2021 10:17 AM EST) P athologist Signature Heparin UFH 0.26 IU/mL [facility] LABORATORY Comment: Heparin (anti-Xa) levels [...] Organization Address City/State/ZIP Code Phon e Number [place] [id number] ECHOCARDIOGRAM LMTD W/O CON W LMTD SPEC DOPP, COLOR DOPP (09/03/2021 9:34 AM EST) athologist Signature EF 37 [facility] Anatomical Region Laterality Modality Other Specimen (Source) Anatomical Location Collection Method / Collectio n Time Received Time / Laterality Volume 09/03/2021 Narrative 09/03/2021 10:34 AM EST Procedure: ?Transthoracic Echocardiogram Patient: ?SHO ARACELIS ?(Age): 1975(46y) Med Rec#: ? [id number] ?Sex: ?F ? Site Loc: ? [facility] ?Ht / Wt: ??163(cm)/78(kg) Pt. Loc: ?CCU ? BSA: ?1.84 Study Date: ?? 09/03/2021 ?Pt. Type: Inpatient Tape: ? Referring: Tameka Neal Referring: JOSUÉ Reading: Carrie Salamanca ([id number]) Credit And Collections Representative: Anca Darling Diagnosis: *Non-ST elevation (NSTEMI) myocardial [...] 33:25 Images reviewed and interpretation verif ied [facility] Cardiac Ultrasound Laboratory Procedure Note Carrie Salamanca MD - 09/03/2021Formatti ng of this note might be different from the original. Procedure: Transthoracic Echocardiogram Patient: SHO DECEMBER (Age): 1975 (46y) Med Rec#: [id number] Sex: F Site Loc: [facility] Ht / Wt: 163(cm)/78(kg) Pt. Loc: CCU BSA: 1.84 Study Date: 09/03/2021 Pt. Type: Inpatie nt Tape: Referring: Tameka Neal Referring: JOSUÉ Reading: Carrie Salamanca ([id number]) Credit And Collections Representative: Anca Darling Diagnosis: *Non-ST elevation (NSTEMI) myocardial [...] 10:33:25 Images reviewed and interpretation verif ied [facility] Cardiac Ultrasound Laboratory Tameka Chu MD ECHO ORDERABLES POCT Glucose (09/03/2021 9:14 AM EST) athologist Signature POC Glucose 108 65 - 199 [facility] mg/dL [facility] Comment: Supplemental ranges: <140 mg/dL before meals <180 mg/dL all other times of the day Specimen Anatomical Collection Method Collection Time Receive d Time (Source) Location / / Volume Laterality Blood 09/03/2021 9:14 AM 9:14 EST AM EST Tameka Chu MD POINT OF CARE TEST ORDERAB LES Performing Organization Address City/State/[place] [address] POCT Glucose (09/03/2021 7:04 AM EST) P athologist Signature POC Glucose 102 65 - 199 [facility] mg/dL [facility] Comment: Supplemental ranges: <140 mg/dL before meals <180 mg/dL all other times of the day Specimen Anatomical Collection Method Collection Time Receive d Time (Source) Location / / Volume Laterality Blood 09/03/2021 7:04 AM 7:04 EST AM EST Tameka Chu MD POINT OF CARE TEST ORDERAB LES Performing Organization Address City/State/[place] [address] (ABNORMAL) Troponin (09/03/2021 6:20 AM EST) athologist Signature Troponin-T 0.07 (H) 0.00 - [facility] 0.00 ng/mL [facility] Comment: The 99th percentile for Troponin T is le ss than 0.01 ng/mL, any detectable cTnT concentration using this assay should be considered elevated. According to the third universal definit ion of myocardial infarction the following criteria with a clinical prese ntation consistent with acute myocardial ischemia meets the diagnosis for a myocardial infarction ([place]). Detection of a rise and/or fall of [...] additional sample may be indicated. Reference: Third [place] Definition of Myocardial Infarction. Journal of the [place] [employer] 2012;60:1581-98 Specimen Anatomical Collection Method Collection Time Receive d Time (Source) Location / / Volume Laterality Blood 09/03/2021 6:20 AM 6:27 EST AM EST Resulting Agency Comment Spec In Lab Yumi Garcia MD CHEMISTRY ORDERABLES Performing Organization Address City/[facility]/ZIP Code Phon e Number [address] Potassium (09/03/2021 4:00 AM EST) athologist Signature Potassium 4.3 3.5 - 5.0 [facility] mmol/L [facility] Comment: Please note: ??Patients [...] Chu MD CHEMISTRY ORDERABLES Performing Organization Address City/[facility]/[place] [address] Heparin (unfractionated) Level (09/03/2021 4:00 AM EST) athologist Signature Heparin UFH 0.49 IU/mL [facility] LABORATORY Comment: Heparin (anti-Xa) levels [...] Organization Address City/State/[place] [address] (ABNORMAL) Differential, Automated (09/03/2021 12:45 AM EST) [facility] Method Time Signature Neutrophils % 61.6 % [facility] Neutr Abs (ANC) 7.46 (H) 1.70 - [facility] 6.10 [facility] x10(3)/[facility] LABORATORY Lymphocytes % 22.0 % [facility] Lymphocytes Abs 2.7 0.9 - 3.2 [facility] x10(3)/[facility] LABORATORY Monocytes % 7.9 % [facility] Monocyte Abs 1.0 (H) 0.3 - 0.9 [facility] x10(3)/[facility] LABORATORY Eosinophils % 7.7 % [facility] Eosinophils Abs 0.9 (H) 0.0 - 0.4 [facility] x10(3)/[facility] LABORATORY Basophils % 0.3 % [facility] Basophils Abs 0.0 0.0 - 0.1 [facility] x10(3)/[facility] LABORATORY Immature Gran % 0.50 % [facility] Comment: Immature granulocytes(IG's)percentage an d absolute count will include metamyelocytes, myelocytes, and promyelo cytes. Blood smears from CBCs yielding IG's will be scanned manually for concor dance. If this scan disagrees with the automated IG or if promyelocytes are not ed, a manual differential will be performed. Anaya Gran Abs 0.06 (H) 0.00 - 0.04 x10(3)/[facility] LABORATORY Specimen Anatomical Collection Method Collection Time Receive d Time (Source) Location / / Volume Laterality Blood 09/03/2021 12:45 09/03/2021 AM EST 12:56 AM EST Resulting Agency Comment Spec In Lab Mirza Robbins DO HEMATOLOGY ORDERABLES Performing Organization Address City/State/[place] [address] (ABNORMAL) Hemogram (09/03/2021 12:45 AM EST) Analysis Performed At Patho logist Time Signature WBC 12.1 (H) 4.0 - 9.5 [facility] x10(3)/[facility] LABORATORY RBC 4.17 4.00 - [facility] 5.21 [facility] x10(6)/[facility] LABORATORY Hemoglobin 9.7 (L) 11.7 - [facility] 15.[facility] g/dL [facility] Hematocrit 31.1 (L) 35.7 - [facility] 45.8 % [facility] MCV 74.6 (L) 82.6 - [facility] 94.4 [facility] LABORATORY MCH 23.3 (L) 27.1 - [facility] 32.0 pg [facility] MCHC 31.2 (L) 31.7 - [facility] g/dL [facility] Platelets 432 (H) 145 - 357 [facility] x10(3)/[facility] LABORATORY RDWSD 53.1 (H) 37.0 - [facility] 46.0 [facility] LABORATORY RDWCV 20.0 (H) 11.5 - [facility] 14.1 % [facility] MPV 9.4 7.6 - 12.9 [facility] LABORATORY nRBC % Auto 0.0 % [facility] nRBC Abs Auto 0.000 0.000 - [facility] 0.000 [facility] x10(3)/[facility] LABORATORY Specimen Anatomical Collection Method Collection Time Receive d Time (Source) Location / / Volume Laterality Blood 09/03/2021 12:45 09/03/2021 AM EST 12:56 AM EST Resulting Agency Comment Spec In Lab Mirza Robbins DO HEMATOLOGY ORDERABLES Performing Organization Address City/State/[place] [address] (ABNORMAL) CMP w/fasting Glucose (09/03/2021 12:45 AM EST) P athologist Signature Glucose 126 (H) 65 - 99 [facility] Fasting mg/dL [facility] Comment: ?Fasting* Glucose Interpretive [...] of Diabetes Mellitus, Position Statement from the [place] [employer]. ??Diabete s Care, Volume 33, Supplement 1, Oct 2009 BUN 12 8 - 18 mg/dL [facility] Creatinine 0.71 0.70 - 1.20 mg/dL [facility] Sodium 141 135 - 145 mmol/L [facility] Potassium 3.8 3.5 - 5.0 mmol/L [facility] Comment: Please note: ??Patients with WBC >100,00 0 may have falsely elevated Potassium levels. ??For accurate Potassium quantif ication in these patients send serum separator tube (gold top) for subsequent determinations. ??Contact the Clinical Chemistry Laboratory if there are any qu estions. Chloride 100 98 - 107 mmol/L [facility] CO2 28 22 - 31 mmol/L [facility] Anion Gap 13 5 - 15 mmol/L [facility]ORY Calcium 8.6 8.5 - 10.5 mg/dL [facility] Total Protein 6.8 6.1 - 8.0 g/dL [facility] Albumin 3.7 3.2 - 5.2 g/dL [facility] AST 11 0 - 30 unit/L [facility] LABORATORY ALT 8 0 - 30 unit/L [facility] LABOR[facility]ORY Alk Phos 84 35 - 105 unit/L [facility] Total Bilirubin 0.3 0.2 - 1.3 mg/dL [facility] LABOR[facility]ORY Estimated GFR 102 >=60 mL/min/1.73 m?? [facility] Comment: This patient? s estimated [...] Organization Address City/State/ZIP Code Phon e Number [address] (ABNORMAL) Magnesium (09/03/2021 12:45 AM EST) P athologist Signature Magnesium 1.16 (H) 0.69 - 1.07 [facility]/L [facility] Comment: result rechecked-doc Specimen Anatomical Collection Method Collection Time Receive d Time (Source) Location / / Volume Laterality Blood 09/03/2021 12:45 09/03/2021 AM EST 12:56 AM EST Resulting Agency Comment Spec In Lab Tameka Chu MD CHEMISTRY ORDERABLES Performing Organization Address City/State/ZIP Code Phon e Number [address] Potassium (09/02/2021 10:05 PM EST) P athologist Signature Potassium 3.9 3.5 - 5.0 [facility] mmol/L [facility] Comment: Please note: ??Patients [...] Chu MD CHEMISTRY ORDERABLES Performing Organization Address City/[facility]/[place] [address] Heparin (unfractionated) Level (09/02/2021 10:05 PM EST) athologist Signature Heparin UFH 0.72 IU/mL [facility] LABORATORY Comment: Heparin (anti-Xa) levels [...] Gant MD HEMATOLOGY ORDERABLES Performing Organization Address City/[facility]/ZIP [place] [address] POCT Glucose (09/02/2021 8:37 PM EST) athologist Signature POC Glucose 104 65 - 199 [facility] mg/dL [facility] Comment: Supplemental ranges: <140 mg/dL before meals <180 mg/dL all other times of the day Specimen Anatomical Collection Method Collection Time Receive d Time (Source) Location / / Volume Laterality Blood 09/02/2021 8:37 PM 8:37 EST PM EST Tameka Chu MD POINT OF CARE TEST ORDERAB LES Performing Organization Address City/State/[place] [address] (ABNORMAL) BLOOD GAS 2 ARTERIAL (09/02/2021 5:45 PM EST) Analysis Performed At Patho logist Time Signature pH Art 7.43 7.35 - [facility] 7.45 [facility] pCO2 Art 39 35 - 45 [facility] LABORATORY pO2 Art 89 85 - 104 [facility] LABORATORY HCO3 Art 24.9 20.0 - [facility] 26.0 [facility] mmol/L [facility] BE Art 0.6 -3.0 - 3.0 [facility] mmol/L [facility] Hgb Blood Gas 10.0 (L) 11.7 - [facility] 15.5 g/dL [facility] O2HB Art 95.5 94.0 - [facility] 97.0 % [facility] COHB Art 0.4 % [facility] Comment: Nonsmokers: 0.5-1.5% COHB Smokers: Variable, but usually less than 10% Toxic: 20-30% COHB Lethal: Greater than 60% COHB METHB Art 0.7 <=1.5 % [facility] Na Whole Blood 137 135 - 145 mmol/L [facility] K Whole Blood 3.5 3.5 - 5.0 mmol/L [facility] Comment: Please note: Patients with WBC >100,000 may have falsely elevated Potassium levels. Contact the Clinical Chemistry L aboratory if there are any questions. ICa Whole Blood 1.03 (L) 1.15 - 1.33 mmol/L [facility] Comment: Note: ??Total bilirubin higher than 20 m g/dL may lead to falsely low ionized calcium. CL Whole Blood 103 98 - 107 mmol/L [facility] Gluc Whole Bld 117 65 - 199 mg/dL [facility] Comment: Diabetes: >=200 mg/dL plus symp toms. Lactate WB 1.2 0.5 - 2.2 mmol/L [facility] FIO2 Art 40 % [facility] PF Ratio Art 222 [facility] Specimen Anatomical Collection Method Collection Time Receive d Time (Source) Location / / Volume Laterality Blood 09/02/2021 5:45 PM 5:45 EST PM EST Tameka Chu MD CHEMISTRY ORDERABLES Performing Organization Address City/State/[place] [address] XR Chest One View (09/02/2021 5:45 PM EST) Anatomical Region Laterality Modality Chest N/A Digital Radiography Specimen (Source) Anatomical Location Collection Method / Collectio n Time Received Time / Laterality Volume Impressions 09/02/2021 7:28 PM EST Pulmonary vascular congestion. [place]avia catheter tip at the right main pulmonary artery. Radiopaque marker of IABP catheter at th e aortic knob. Thank you for letting us participate in the care of this patient. ??If you are a health care provider and have any questi ons regarding this report, please contact the number below. ??For patients who have questions please contact the health career technical education teacher that requested your imaging first. ? Narrative 09/02/2021 7:28 PM EST EXAMINATION: XR CHEST ONE VIEW CLINICAL HISTORY: sob TECHNIQUE: 1 view of the chest COMPARISON: March 11, 2011 FINDINGS: Left internal jugular central venous she ath with [place]avia catheter at the right main pulmonary artery. [...] internal jugular central venous she ath with [place] catheter at the right main pulmonary artery. IABP in place with radiopaque marker at the apical edge of the aortic knob. No mass. No consolidation. Bronchovascul ar haziness. Mild pulmonary vascular redistribution. No pleural effusion. No pneumothorax. Cardiac, mediastinal hilar contours are within normal limits. No ac devante bony fractures. IMPRESSION Pulmonary vascular congestion. [place]avia catheter tip at the right main pulmonary artery. Radiopaque marker of IABP catheter at th e aortic knob. Thank you for letting us participate in the care of this patient. If you are a health care provider and have any questi ons regarding this report, please contact the number below. For patients w ho have questions please contact the health career technical education teacher that requested your imaging first. Jay Jay Gant MD IMG DX ORDERABLES Type and Screen Validity (09/02/2021 5:40 PM EST) [facility] gist Method Time Signature T&S only valid [facility] at [facility] Comment: This Type and Screen result is only valid at the [facility] Hospital Specimen Anatomical Collection Method Collection Time Receive d Time (Source) Location / / Volume Laterality Blood 09/02/2021 5:40 PM 6:36 EST PM EST Resulting Agency Comment Spec In Lab Mirza Robbins DO BLOOD BANK ORDERABLES Performing Organization Address City/State/[place] [address] Scan, Peripheral Blood (09/02/2021 5:40 PM EST) [facility] Method Time Signature Plat Estimate Increased [facility] RBC Morphology Abnormal [facility] Microcytes 1-5 /HPF [facility] Specimen Anatomical Collection Method Collection Time Receive d Time (Source) Location / / Volume Laterality Blood 09/02/2021 5:40 PM 6:29 EST PM EST Resulting Agency Comment Spec In Lab Yumi Garcia MD HEMATOLOGY ORDERABLES Performing Organization Address City/[facility]/ZIP Code Phon e Number [address] ABORH Recheck Status (09/02/2021 5:40 PM EST) [facility] Signature ABORH Recheck Order Placed [facility] LABORATORY ABORH Type Complete [facility] LABORATORY Specimen Anatomical Collection Method Collection Time Receive d Time (Source) Location / / Volume Laterality Blood 09/02/2021 5:40 PM 6:36 EST PM EST Resulting Agency Comment Spec In Lab Mirza Robbins DO BLOOD BANK ORDERABLES Performing Organization Address City/[facility]/ZIP Code Phon e Number [address] Blue Tube HOLD (09/02/2021 5:40 PM EST) P athologist Signature Blue Hold Sample in [facility] LABORATORY Specimen Anatomical Collection Method Collection Time Receive d Time (Source) Location / / Volume Laterality Blood Venous Draw / 09/02/2021 5:40 PM 09/02/20 21 6:29 Unknown EST PM EST Yumi Garcia MD HEMATOLOGY ORDERABLES Performing Organization Address City/[facility]/ZIP Code Phon e Number [address] Antibody screen (09/02/2021 5:40 PM EST) Patholo gist Method Time Signature Ab Screen Negative [facility] LABORATORY Expires at 09/05/2021 [facility] [id number] on: [facility] Specimen Anatomical Collection Method Collection Time Receive d Time (Source) Location / / Volume Laterality Blood 09/02/2021 5:40 PM 1 6:36 EST PM EST Resulting Agency Comment Spec In Lab Mirza Robbins DO BLOOD BANK ORDERABLES Performing Organization Address City/[facility]/Z[place] [address] ABO/Rh Typing (09/02/2021 5:40 PM EST) athologist Signature ABORh Type O Pos [facility] Specimen Anatomical Collection Method Collection Time Receive d Time (Source) Location / / Volume Laterality Blood 09/02/2021 5:40 PM 1 6:36 EST PM EST Resulting Agency Comment Spec In Lab Mirza Robbins DO BLOOD BANK ORDERABLES Performing Organization Address City/[facility]/[place] [address] (ABNORMAL) Magnesium (09/02/2021 5:40 PM EST) athologist Signature Magnesium 0.65 (L) 0.69 - 1.07 [facility] mmol/L [facility] Specimen Anatomical Collection Method Collection Time Receive d Time (Source) Location / / Volume Laterality Blood 09/02/2021 5:40 PM 6:28 EST PM EST Resulting Agency Comment Spec In Lab Tameka Chu MD CHEMISTRY ORDERABLES Performing Organization Address City/[facility]/Z[place] [address] (ABNORMAL) BMP w/fasting Glucose (09/02/2021 5:40 PM EST) P athologist Signature Glucose 117 (H) 65 - 99 [facility] Fasting mg/dL [facility] Comment: ?Fasting* Glucose Interpretive [...] of Diabetes Mellitus, Position Statement from the [place] [employer]. ??Diabete s Care, Volume 33, Supplement 1, Oct 2009 BUN 12 8 - 18 mg/dL [facility] Creatinine 0.63 (L) 0.70 - 1.20 mg/dL [facility] Sodium 140 135 - 145 mmol/L [facility] Potassium 3.9 3.5 - 5.0 mmol/L [facility] Comment: Please note: ??Patients with WBC >100,00 0 may have falsely elevated Potassium levels. ??For accurate Potassium quantif ication in these patients send serum separator tube (gold top) for subsequent determinations. ??Contact the Clinical Chemistry Laboratory if there are any qu estions. Chloride 102 98 - 107 mmol/L [facility] CO2 26 22 - 31 mmol/L [facility] Anion Gap 12 5 - 15 mmol/L [facility] Calcium 8.5 8.5 - 10.5 mg/dL [facility] Estimated GFR 108 >=60 mL/min/1.73 m?? [facility] Comment: This patient? s estimated [...] Organization Address City/State/ZIP Code Phon e Number [address] Vitamin B12 (09/02/2021 5:40 PM EST) athologist Signature Vitamin B-12 747 232 - 1,245 [facility] pg/mL [facility] Specimen Anatomical Collection Method Collection Time Receive d Time (Source) Location / / Volume Laterality Blood 09/02/2021 5:40 PM 6:29 EST PM EST Resulting Agency Comment Spec In Lab Yumi Garcia MD CHEMISTRY ORDERABLES Performing Organization Address City/[facility]/[place]IP [place] [address] TSH (09/02/2021 5:40 PM EST) athologist Signature TSH 2.32 0.27 - 4.20 [facility] mcIU/mL [facility] Comment: Reference Interval (mcIU/mL): Females: ??First Trimester: 0.23-3.88 ??Second Trimester: 0.22-3.90 ??Third Trimester: 0.44-4.66 Specimen Anatomical Collection Method Collection Time Receive d Time (Source) Location / / Volume Laterality Blood 09/02/2021 5:40 PM 6:28 EST PM EST Resulting Agency Comment Spec In Lab Yumi Garcia MD CHEMISTRY ORDERABLES Performing Organization Address City/[facility]/ZIP Code Phon e Number [address] (ABNORMAL) Iron and TIBC (09/02/2021 5:40 PM EST) athologist Signature Iron 33 30 - 150 [facility] TIBC 311 250 - 450 [facility] mcg/dL [facility] Iron Saturation 11 (L) 20 - 50 % [facility] Specimen Anatomical Collection Method Collection Time Receive d Time (Source) Location / / Volume Laterality Blood 09/02/2021 5:40 PM 6:28 EST PM EST Resulting Agency Comment Spec In Lab Yumi Garcia MD CHEMISTRY ORDERABLES Performing Organization Address City/[facility] [place] [address] (ABNORMAL) Ferritin (09/02/2021 5:40 PM EST) athologist [facility] Ferritin 207 (H) 15 - 150 [facility] ng/mL [facility] Comment: Pediatric reference ranges not verified at [facility], interpret with caution. Reference ranges for females greater chris n 50 years of age approach values for men, i.e., 30-400 ng/mL. Specimen Anatomical Collection Method Collection Time Receive d Time (Source) Location / / Volume Laterality Blood 09/02/2021 5:40 PM 6:29 EST PM EST Resulting Agency Comment Spec In Lab Yumi Garcia MD CHEMISTRY ORDERABLES Performing Organization Address City/[facility] [place] [address] (ABNORMAL) Comprehensive metabolic panel (non-fasting) (09/02/2021 5:40 PM EST) athologist Signature Glucose Lvl 117 65 - 199 [facility] mg/dL [facility] Comment: Diabetes: >=200 mg/dL plus symp toms BUN 12 8 - 18 mg/dL [facility] Creatinine 0.63 (L) 0.70 - 1.20 mg/dL [facility] Sodium 140 135 - 145 mmol/L [facility] Potassium 3.9 3.5 - 5.0 mmol/L [facility] Comment: Please note: ??Patients with WBC >100,00 0 may have falsely elevated Potassium levels. ??For accurate Potassium quantif ication in these patients send serum separator tube (gold top) for subsequent determinations. ??Contact the Clinical Chemistry Laboratory if there are any qu estions. Chloride 102 98 - 107 mmol/L [facility] CO2 26 22 - 31 mmol/L [facility] Anion Gap 12 5 - 15 mmol/L [facility] Calcium 8.5 8.5 - 10.5 mg/dL [facility] Total Protein 6.6 6.1 - 8.0 g/dL [facility] Albumin 3.7 3.2 - 5.2 g/dL [facility] AST 12 0 - 30 unit/L [facility] ALT 12 0 - 30 unit/L [facility] Alk Phos 82 35 - 105 unit/L [facility] Total Bilirubin 0.2 0.2 - 1.3 mg/dL [facility] Estimated GFR 108 >=60 mL/min/1.73 m?? [facility] Comment: This patient? s estimated [...] Organization Address City/State/[place] [address] (ABNORMAL) Hemogram (09/02/2021 5:40 PM EST) Analysis Performed At Patho logist Time Signature WBC 11.6 (H) 4.0 - 9.5 [facility] x10(3)/[facility] LABORATORY RBC 3.98 (L) 4.00 - [facility] 5.21 [facility] x10(6)/[facility] LAB[facility]ATORY Hemoglobin 9.3 (L) 11.7 - [facility] 15.5 g/dL [facility] Hematocrit 29.7 (L) 35.7 - [facility] 45.8 % [facility] MCV 74.6 (L) 82.6 - [facility] 94.4 [facility] LABORATORY MCH 23.4 (L) 27.1 - [facility] 32.0 pg [facility] MCHC 31.3 (L) 31.7 - [facility] 35.0 g/dL [facility] Platelets 428 (H) 145 - 357 [facility] x10(3)/[facility] LABORATORY RDWSD 53.4 (H) 37.0 - [facility] 46.0 [facility] LABORATORY RDWCV 20.1 (H) 11.5 - [facility] 14.1 % [facility] MPV 9.3 7.6 - 12.9 [facility] LABORATORY nRBC % Auto 0.0 % [facility] nRBC Abs Auto 0.000 0.000 - [facility] 0.000 [facility] x10(3)/[facility] LAB[facility]ORY Specimen Anatomical Collection Method Collection Time Receive d Time (Source) Location / / Volume Laterality Blood 09/02/2021 5:40 PM 6:29 EST PM EST Resulting Agency Comment Spec In Lab Yumi Garcia MD HEMATOLOGY ORDERABLES Performing Organization Address City/State/[place] [address] EKG 12 Lead (09/02/2021 5:26 PM EST) Component Value Ref Range Test Analysis Performed Pathologis t Method Time At Signature Ventricular rate 98 BPM MUSE SYSTEM Atrial Rate 98 BPM MUSE SYSTEM P-R Interval 134 ms MUSE SYSTEM QRS Duration 94 ms MUSE SYSTEM Q-T Interval 390 ms MUSE SYSTEM QTC Calculated 497 ms MUSE SYSTEM (Shaneet) Calculated P [place] 19 degrees MUSE SYSTEM Calculated R [place] 63 degrees MUSE SYSTEM Calculated T [place] 78 degrees MUSE SYSTEM INTERPRETATION Normal sinus [...] Laterality Volume Narrative 09/02/2021 11:24 PM EST ?[facility] ? Cardiac Cathete rization/Intervention Report ? Patient Name: Sho, Aracelis ? Procedure Date: 09/02/2021 ? A #: [id number] ? Primary Physician: Rafi Barrett ? Case #: [id number] ? File Name: [id number] ? Catheterization Order Number: [id number] ? [facility] ? Final Report [place], [place] ? Patient Name: ? Aracelis Sho ? ID#: ?[id number] ? : ?1975 ? Procedure Date: ? [...] Day frequency, using ?cigarettes. Cigarette use is Per louie (>=10/day). She has ?hypercholesterolemia. The patie [...] procedure was Urgent. The indication for ?the paving and surfacing labourer visit is ACS less than or equal [...] flow was normal and was via the [place] vessel. ? The mid segment of the [...] d the left heart catheterization, ?coronary angiography, [place] (flow d irected cath) insertion, IABP insertion ?in paving and surfacing labourer and oximetry. ? Rafi Barrett M.D. ? Report Finalized: 09/02/2021 ??23:17 ? Report Last Ammended: 09/14/2021 ??11:53 ? Procedure Note Rafi Barrett, - 09/14/2021Formatt ing of this note might be different from the original. [facility] Cardiac Catheterization/Intervention Re port Patient Name: December Procedure Date: 09/02/2021 A #: [id number] Primary Physician: Rafi Barrett Case #: [id number] File Name: [id number] Catheterization Order Number: [id number] [facility] Final Report [place], [place] Patient Name: Aracelis Monique ID#: [id number] : 1975 Procedure Date: September 02, 2021 [...] was designated as ASA Class III. The [facility] clinical frailty scale is 3: Managing Well. Diagnostic Tests: Prior Coronary Angiography: LV ejection fraction within 6 months is 60%. Electrocardiography: EKG was assessed by ECG. EKG was Abnorm al. EKG showed T-wave inversions. Medications Prior to Procedure: Aspirin, Beta Jerri and Statin. Indications for Diagnostic Cath: The priority of the diagnostic procedur e was Urgent. The indication for the paving and surfacing labourer visit is ACS less than or equal [...] was normal and w as via the [place] vessel. The mid segment of the RCA [...] present for the entire procedure. Dr. Rafi Brarett M.D. was present d uring the moderate sedation intraservice time as documented by the sedation nurse. Case time = 01:37. Dr. Rafi Barrett M.D. performed the left heart catheterization, coronary angiography, [place] (flow direct ed cath) insertion, IABP insertion in paving and surfacing labourer and oximetry. Rafi Barrett M.D. Report Finalized: [...] 467 ms MUSE SYSTEM (Bezet) Calculated P [place] 40 degrees MUSE SYSTEM Calculated R [place] 35 degrees MUSE SYSTEM Calculated T [place] 68 degrees MUSE SYSTEM INTERPRETATION Sinus tachycardia [...] Signature Troponin-T 0.03 (H) 0.00 - [facility] 0.00 ng/mL [facility] Comment: The 99th percentile for Troponin T is le ss than 0.01 ng/mL, any detectable cTnT concentration using this assay should be considered elevated. According to the third universal definit ion of myocardial infarction the following criteria with a clinical prese ntation consistent with acute myocardial ischemia meets the diagnosis for a myocardial infarction ([place]). Detection of a rise and/or fall of [...] additional sample may be indicated. Reference: Third [place] Definition of Myocardial Infarction. Journal of the [place] [employer] 2012;60:1581-98 Specimen Anatomical Collection Method Collection Time Receive d Time (Source) Location / / Volume Laterality Blood 09/02/2021 1:30 PM 1:42 EST PM EST Resulting Agency Comment Spec In Lab Jay Jay Gant MD CHEMISTRY ORDERABLES Performing Organization Address City/State/ZIP Code Phon e Number [place] [id number] (ABNORMAL) Differential, Automated (09/02/2021 1:30 PM EST) [facility] Method Time Signature Neutrophils % 52.4 % [facility] Neutr Abs (ANC) 5.54 1.70 - [facility] 6.10 [facility] x10(3)/[facility] LAB[facility]ORY Lymphocytes % 31.2 % [facility] Lymphocytes Abs 3.3 (H) 0.9 - 3.2 [facility] x10(3)/[facility] LABORATORY Monocytes % 7.4 % [facility] Monocyte Abs 0.8 0.3 - 0.9 [facility] x10(3)/[facility] LABORATORY Eosinophils % 8.0 % [facility] Eosinophils Abs 0.8 (H) 0.0 - 0.4 [facility] x10(3)/[facility] LABORATORY Basophils % 0.6 % [facility] Basophils Abs 0.1 0.0 - 0.1 [facility] x10(3)/[facility] LABORATORY Immature Gran % 0.40 % [facility] Comment: Immature granulocytes(IG's)percentage an d absolute count will include metamyelocytes, myelocytes, and promyelo cytes. Blood smears from CBCs yielding IG's will be scanned manually for concor dance. If this scan disagrees with the automated IG or if promyelocytes are not ed, a manual differential will be performed. Anaya Gran Abs 0.04 0.00 - 0.04 x10(3)/[facility] LABORATORY Specimen Anatomical Collection Method Collection Time Receive d Time (Source) Location / / Volume Laterality Blood 09/02/2021 1:30 PM 1:42 EST PM EST Resulting Agency Comment Spec In Lab Obkiarraa Rosendo DO HEMATOLOGY ORDERABLES Performing Organization Address City/State/ZIP Code Phon e Number [place] [phone] (ABNORMAL) Hemogram (09/02/2021 1:30 PM EST) Analysis Performed At Patho logist Time Signature WBC 10.6 (H) 4.0 - 9.5 [facility] x10(3)/[facility] LABORATORY RBC 3.90 (L) 4.00 - [facility] 5.21 [facility] x10(6)/[facility]ORY Hemoglobin 8.9 (L) 11.7 - [facility] 15.5 g/dL [facility] Hematocrit 29.3 (L) 35.7 - [facility] 45.8 % [facility] MCV 75.1 (L) 82.6 - [facility] 94.4 [facility] LABORATORY MCH 22.8 (L) 27.1 - [facility] 32.0 pg [facility] MCHC 30.4 (L) 31.7 - [facility] 35.0 g/dL [facility] Platelets 419 (H) 145 - 357 [facility] x10(3)/[facility] LABORATORY RDWSD 54.2 (H) 37.0 - [facility] 46.0 [facility] LABORATORY RDWCV 20.0 (H) 11.5 - [facility] 14.1 % [facility] MPV 9.2 7.6 - 12.9 [facility] LABORATORY nRBC % Auto 0.0 % [facility] nRBC Abs Auto 0.000 0.000 - [facility] 0.000 [facility] x10(3)/[facility]ORY Specimen Anatomical Collection Method Collection Time Receive d Time (Source) Location / / Volume Laterality Blood 09/02/2021 1:30 PM 1 1:42 EST PM EST Resulting Agency Comment Spec In Lab Darrynnishi Saavedrajo ann DO HEMATOLOGY ORDERABLES Performing Organization Address City/State/Z[place] [address] (ABNORMAL) Hemoglobin A1c (09/02/2021 1:30 PM EST) Analysis Performed At Patho logist Time Signature Hemoglobin A1C 6.8 (H) 4.3 - 5.6 [facility] Comment: Reference Range: 4.3 [...] 1, S67-74 Est Avg Gluc 149 mg/dL [facility] Comment: eAG equivalents for HbA1c percentages: HbA1c(%) ?eAG(mg/dL) 6.0 ?126 6.5 ?140 7.0 ?154 7.5 ?169 8.0 ?183 8.5 ?197 9.0 ?212 9.5 ?226 10.0 ? 240 Limitations: The eAG calculation has not been validated on women, individuals below 18 years old and above 70 years old, and individuals with hemoglobinopathies. Additional resources are available on [facility] website. Arnel TSE, Louis J, Anthony R, et al. ??Tr anslating the A1C assay into estimated average glucose values. ??Diabetes Care 2008:31(8):2375-3212. Specimen Anatomical Collection Method Collection Time Receive d Time (Source) Location / / Volume Laterality Blood 09/02/2021 1:30 PM 1:42 EST PM EST Resulting Agency Comment Spec In Lab Jay Jay Gant MD CHEMISTRY ORDERABLES Performing Organization Address City/State/[place] [address] Lipid Panel (Reflex Direct LDL) (09/02/2021 1:30 PM EST) P athologist Signature Chol, Total 139 mg/dL [facility] Comment: Lower Risk: <200 mg/dL Average Risk: 200-239 mg/dL Higher Risk: >uj=730 mg/dL Triglycerides 178 mg/dL [facility] Comment: Average Risk/Lower Risk: <150 mg/dL Borderline High Risk: 150-199 mg/dL High Risk: 200-499 mg/dL Very High Risk: >xh=975 mg/dL HDL 24 mg/dL [facility] Comment: Males: ?? Higher Risk: <40 mg/dL Females: ?? Higher Risk: <50 mg/dL LDL Cholesterol 79 mg/dL [facility] Comment: Lowest Risk: <100 mg/dL Lower Risk: 100-129 mg/dL Borderline High Risk: 130-159 mg/dL High Risk: 160-189 mg/dL Very High Risk: >ef=430 mg/dL Chol/HDL Ratio 5.8 ratio [facility] Lipid Interpretation See Note [facility] Comment: Lipid management should be guided by a p atient? s ASCVD risk, goals and preferences. ACC/AHA Guidelines recommend high intens ity statin if clinical ASCVD or LDL greater than or equal to 190 mg/dL. http://[employer].com/OKX-TBE-Tiozhbtuj Adults aged 40-75 with LDL 70-189 mg/dL should have their 10 year ASCVD risk estimated with the ACC/AHA ASCVD risk es timator http://tools.acc.org/YQTXT-Txxs-Wbhsbvoi r/ Statin should be discussed if risk [...] Gant MD CHEMISTRY ORDERABLES Performing Organization Address City/State/[facility] [place] [address] (ABNORMAL) APTT (09/02/2021 1:30 PM EST) P athologist Signature PTT 38 (H) 25 - 37 sec [facility] Comment: The PTT is NOT [...] MD HEMATOLOGY ORDERABLES Performing Organization Address City/State/ZIP [facility] [place] [address] Prothrombin Time (09/02/2021 1:30 PM EST) P athologist Signature PT 11.9 9.4 - 12.5 [facility] LABORATORY INR 1.0 [facility] Comment: An INR <2.0 indicates [...] Gant MD HEMATOLOGY ORDERABLES Performing Organization Address City/[facility]/ZIP Code Phon e Number [place] [id number] (ABNORMAL) Hepatic Function Panel (09/02/2021 1:30 PM EST) Analysis Performed At Patho logist Time Signature Total Protein 6.5 6.1 - 8.0 [facility] g/dL [facility] Albumin 3.6 3.2 - 5.2 [place] g/dL [facility] AST 12 0 - 30 [facility] [place] unit/L [facility] ALT 11 0 - 30 [facility] unit/L [facility] Alk Phos 82 35 - 105 [facility] [place] unit/L [facility] Total <0.2 (L) 0.2 - 1.3 [facility] Bilirubin mg/dL [facility] Bili, Direct 0.1 0.0 - 0.3 [facility] mg/dL [facility] Specimen Anatomical Collection Method Collection Time Receive d Time (Source) Location / / Volume Laterality Blood 09/02/2021 1:30 PM 1 1:42 EST PM EST Resulting Agency Comment Spec In Lab Jay Jay Gant MD CHEMISTRY ORDERABLES Performing Organization Address City/[facility]/[place] [address] (ABNORMAL) pro-Brain Natriuretic Peptide (09/02/2021 1:30 PM EST) athologist Signature ProBNP 1,583 (H) <=124 [facility] pg/mL [facility] Specimen Anatomical Collection Method Collection Time Receive d Time (Source) Location / / Volume Laterality Blood 09/02/2021 1:30 PM 1 1:42 EST PM EST Resulting Agency Comment Spec In Lab Jay Jay Gant MD CHEMISTRY ORDERABLES Performing Organization Address City/[facility]/ZIP [place] [address] Phosphorus (09/02/2021 1:30 PM EST) athologist Signature Phosphorus 3.3 2.5 - 4.5 [facility] mg/dL [facility] Specimen Anatomical Collection Method Collection Time Receive d Time (Source) Location / / Volume Laterality Blood 09/02/2021 1:30 PM 1 1:42 EST PM EST Resulting Agency Comment Spec In Lab Jay Jay Gant MD CHEMISTRY ORDERABLES Performing Organization Address City/[facility]/Z[place] [address] Magnesium (09/02/2021 1:30 PM EST) athologist Signature Magnesium 0.69 0.69 - 1.07 [facility] mmol/L [facility] Specimen Anatomical Collection Method Collection Time Receive d Time (Source) Location / / Volume Laterality Blood 09/02/2021 1:30 PM 1 1:42 EST PM EST Resulting Agency Comment Spec In Lab Jay Jay Gant MD CHEMISTRY ORDERABLES Performing Organization Address City/[facility]/ZIP [facility] [place] [address] (ABNORMAL) Basic Metabolic Panel (non-fasting) (09/02/2021 1:30 PM EST) athologist Signature Glucose Lvl 180 65 - 199 [facility] mg/dL [facility] Comment: Diabetes: >=200 mg/dL plus symp toms BUN 14 8 - 18 mg/dL [facility] Creatinine 0.65 (L) 0.70 - 1.20 mg/dL [facility] Sodium 141 135 - 145 mmol/L [facility] Potassium 4.1 3.5 - 5.0 mmol/L [facility] Comment: Please note: ??Patients with WBC >100,00 0 may have falsely elevated Potassium levels. ??For accurate Potassium quantif ication in these patients send serum separator tube (gold top) for subsequent determinations. ??Contact the Clinical Chemistry Laboratory if there are any qu estions. Chloride 105 98 - 107 mmol/L [facility] CO2 24 22 - 31 mmol/L [facility] Anion Gap 12 5 - 15 mmol/L [facility] LABORATORY Calcium 8.4 (L) 8.5 - 10.5 mg/dL [facility] Estimated GFR 106 >=60 mL/min/1.73 m?? [facility] Comment: This patient? s estimated [...] Address City/State/ZIP Code Phon e Number [place] [phone] (ABNORMAL) POCT Glucose (09/02/2021 1:27 PM EST) P athologist Signature POC Glucose 201 (H) 65 - 199 [facility] mg/dL [facility] Comment: Supplemental ranges: <140 mg/dL before meals <180 mg/dL all other times of the day Specimen Anatomical Collection Method Collection Time Receive d Time (Source) Location / / Volume Laterality Blood 09/02/2021 1:27 PM 1:27 EST PM EST Jay Jay Gant MD POINT OF CARE TEST ORDERABLE S Performing Organization Address City/State/ZIP Code Phon e Number [address] COVID-19 PCR (09/02/2021 1:01 PM EST) Patholo gist Method Time Signature SARS-CoV-2 Not Detected Not Detected [facility] RNA PCR [facility] Comment: This result should [...] using the Simplexa COVID-19 Direct Assay by SYLLETAstarla pradhan as authorized by the FDA issued [...] Department of Pathology and Laboratory Medicine at [facility], certified under the Clinical Laboratory Improvement [...] fact sheets at the following FDA website: https://www.fda.gov/medical-devices/ghacamszgqb-pjhztzx-0390-ozhue-85-goalxjxhv- zyn-tqqgacvjcdaldb-bfgrxem-devices/pvnme-yshdfsuqgfd-izfh SARS-CoV-2 Source [employer]ILY [employer] MANAGER Swab [facility] Specimen (Source) Anatomical Collection Method Collection Time Re ceived Time Location / / Volume Laterality Nasopharyngeal Swab 09/02/2021 1:01 09/02 PM EST 2:45 PM EST Comment: Symptoms->Surveillance Resulting Agency Comment Spec In Lab Jay Jay Gant MD MICROBIOLOGY - GENERAL ORDER ERIN Performing Organization Address City/State/[place] [address] documented in this encounter [...] 09/04/21 at 2100, Until Discontinued, Routine fentaNYL (pf) (50 mcg/mL) multi-dose Given 09/03/2021 5:48 PM ES T 12.5 mcg injection ONCE PRN, Starting on Toya 09/02/21 at 1634, Until 09/03/21 at 1903, Cath (Intra-Procedure), Routine Given 09/03/2021 5:33 PM EST 25 mcg Given 09/03/2021 5:10 PM EST 12.5 mcg fentaNYL (pf) (50 mcg/mL) multi-dose Given 09/03/2021 7:02 PM ES T 25 mcg injection ONCE PRN, Starting on Mon09/03/21 at 1633, Until Mon09/03/21 at 1903, Intra-Operative (Intra-Procedure), Routine Given 09/03/2021 6:41 PM EST 25 mcg Given 09/03/2021 6:25 PM EST 25 mcg ferrous sulfate EC tablet 325 mg [...] ht of tube = 37.5 grams., Routine heparin (porcine) (1,000 units/mL) injec tion Given 09/03/2021 6:05 PM EST 2 Units ONCE PRN, Starting on Mon09/03/21 at 1652, Until Mon09/03/21 at 1903, Cath (Intra-Procedure), Routine Given 09/03/2021 5:05 PM EST 2,000 Units Given 09/03/2021 4:52 PM EST 4,000 Units insulin glargine (Lantus;Semglee) (100 Given 09/04/2021 9:06 [...] > 240 mg/dL in 2 hours, Routine iohexoL (Omnipaque) (350 mg/mL) solution Given 09/03/2021 7:02 PM EST 160 mLs ONCE PRN, Starting on Mon09/03/21 at 1902, Until Mon09/03/21 at 1903, Cath (Intra-Procedure), Routine ipratropium-albuteroL (Duoneb) 0.5 mg-3 Given 09/05/2021 [...] Discontinued, DO NOT CRUSH OR OPEN, Routine midazolam (pf) (Versed) (1 mg/mL) injection 1 Given 4:45 PM EST 0.5 mg mg 1 mg, Intravenous, EVERY 1 HOUR PRN, 2 doses, Starting on Toya 09/02/21 at 1721, Until Mon09/03/21 at 1903, For sheath removal, May repeat once while in Cath Recovery Unit. , Cath (Recovery-Hospital Unit), Routine midazolam (pf) (Versed) (1 mg/mL) multi-dose Given 11/2020 5:16 PM EST 0.5 mg injection ONCE PRN, Starting on Mon09/03/21 at 1618, Until Mon09/03/21 at 1903, Cath (Intra-Procedure), Routine Given 09/03/2021 4:51 PM EST 1 mg Given 09/03/2021 4:18 PM EST 0.5 mg nicotine (Nicoderm CQ) 7 Patch Applied [...] 72 hours., Routine nitroGLYcerin 100 mcg/mL intracoronary Given 09/03/2021 6:28 PM EST 100 mcg dilution ONCE PRN, Starting on Mon09/03/21 at 1648, Until Mon09/03/21 at 1903, Cath (Intra-Procedure), Routine Given 09/03/2021 5:01 PM EST 150 mcg Given 09/03/2021 4:48 PM EST 150 mcg oxyCODONE (Roxicodone) tablet 10 mg Given 09/05/2021 [...] sodium chloride 0.9 % (flush) (BD PosiFl us Normal Saline 0.9) flush 5-20 mL 5-20 mL, Intravenous, EVERY 1 MIN PRN, S tarting on Toya 09/02/21 at 1246, Until 09/05/21 at 1508, flush, Flush pertains t o all indwelling lines. Flush per protocol found in the job aid using the link prov ided on this medication record., Routine verapamiL (Isoptin) (2.5 mg/mL) injectio n Given 09/03/2021 4:48 PM EST 2.5 mg ONCE PRN, Starting on Mon09/03/21 at 1648, Until Mon09/03/21 at 1903, Administer over 2 Minutes, Cath (Intra-Procedure) documented in this encounter Active and Recently Administered Medications Times are shown in EST. Scheduled Medication Order 09/03/2021 09/04/2021 09/05/2021 acetaminophen (Tylenol) tablet 975 mg 0408 (Given - Pr ovider: Chelle Burrows RN)1209 (Given - Provider: Juan Mohan, DEVAN)1634 (MAR Hold - Provider: Admin Adt - Reason: Transfer to a Procedural area)2005 (MAR Unhold - Provider: Admin Adt)2051 (Given - Provider: Sharmin Dodge, DEVAN) 0445 (Not Given - Provider: Sharmin Dodge, DEVAN - Reason: Patient/family refused)1213 (Given - Provider: Ruth Barros RN)2104 (Given - Provider: Jodi Anaya, DEVAN) 0540 [...] 0817 (Given - Provider: Ruth Barros, DEVAN) 09 (Given - Provider: Hermelindo Yanez, RN) 81 mg, Oral, DAILY, First dose on Mon at 0945, Until Discontinued, Routine atorvastatin (Lipitor) tablet 80 mg 163 (MAR Hold - P rovider: Admin Adt - Reason: Transfer to a Procedural area)1700 (Automatically Held - Provider: Admin Adt)2005 (NOV Unhold - Provider: Admin Adt) 161 (Given - Provider: Ruth Barros, DEVAN) 80 [...] Until Discontinued cefpodoxime (Vantin) tablet 200 mg 0937 (Given - Provider: Ruth Barros RN)210 (Given - Provider: Jodi Anaya, DEVAN) 09 (Given - Provider: Hermelindo Yanez, DEVAN) 200 mg, Oral, 2 TIMES DAILY, 10 doses, F irst dose (after last modification) on 09/04/21 at 0930, Last dose on Mon09/08/21 at 2100, Routine clopidogreL (Plavix) tablet 75 mg 0911 (Given - Provid er: Juan Mohan RN)1634 (MAR Hold - Provider: Admin Adt - Reason: Transfer to a Procedural area)2005 (NOV Unhold - Provider: Admin Adt) 816 (Given - Provider: Ruth Barros, DEVAN) 900 (Given - Provider: Hermelindo Yanez , [...] capsule 1,200 mg(Linked Group 1 ) 1634 (NOV Hold - Provider: Admin Adt - Reason: Transfer to a Procedural area)2005 (NOV Unhold - Provider: Admin Adt)2050 (Given - Provider: Sharmin Dodge, DEVAN) 2103 (Given - Provider: Jodi Anaya, DEVAN) 1,200 mg, Oral, NIGHTLY, First dose on T 09/02/21 at 2100, Until Discontinued, Routine gabapentin (Neurontin) capsule 600 mg(Linked Group 1) 910 (Given - Provider: Juan Mohan RN)1209 (Given - Provider: Juan Mohan, DEVAN)1634 (NOV Hold - Provider: Admin Adt - Reason: Transfer to a Procedural area)2005 (MAR Unhold - Provider: Admin Adt) 0818 (Given - Provider: Ruth villela RN)1121 (Given - Provider: Ruth Barros, DEVAN) 0901 (Given - Provider: Hermelindo Yanez RN)1137 (Given - Provider: Hermelindo Yanez RN) 600 mg, Oral, USER SPECIFIED (2 times pe r day), First dose on Toya 09/02/21 at 1415, Until Discontinued, Routine insulin glargine (Lantus;Semglee) (100 u nit/mL) subcutaneous injection vial 40 Units 2105 (Given - Provider: Jodi Anaya RN) 40 Units, Subcutaneous, NIGHTLY, First d ose (after last modification) on 09/04/21 at 2100, Until Discontinued, Routine insulin lispro (HumaLOG;Admelog) (100 un it/mL) subcutaneous injection vial 0-13 Units (CANCELED) 174 (Given - Provider: Ruth villela RN) 0830 [...] Units (CANCELED) 0804 (Given - Provider: Willy Barros, RN)1257 (Given - Provider: Ruth Barros RN) [...] not met) 0014 (Given - Provider: Sharmin Dodge, DEVAN)0210 (Given - Provider: Sharmin Dodge RN - Comment: recheck > 240. Pt had snacks (candy) brought from home. Had conversation with her. 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 Dose given now as Q2 follow-up from 1600, in addition to 2000 dose per Mirza Robbins DO.)2104 (Given - Provider: Jodi Anaya DEVAN) 0595 (Given - Provider: Jodi Anaya, RN)0830 (Given - Provider: Hermelindo Yanez, RN) 2-16 Units, Subcutaneous, EVERY 4 HOURS SCHEDULED, First dose (after last modification) on 09/04/21 at 2000, Until Discontinued, CORRECTION BOLUS [6-12 Units] Resistant Sliding Scale (BG in mg/dL 2353 (Given - Provider: Jodi Anaya, DEVAN) ) Correction Factor 10 (1 unit of [...] subcutaneous injection vial 2-16 Units(Linked Group 2) 4936 (Given - Prov ider: Hermelindo Yanez, RN [...] 1442 (Given - Provider: Juan Mohan RN)1634 (MAR [...] DEVAN) 0314 (Given - Provider: Jodi Anaya, DEVAN)0900 (Given - Provider: Hermelindo Yanez, DEVAN)1139 (Given - Provider: Hermelindo Yanez RN) 3 mL, Nebulization, EVERY 4 HOURS [...] met - Comment: 3 patches applied; see [facility] for alternative order) 1 patch, Transdermal, EVERY 24 HOURS, Fi rst dose on Mon09/03/21 at 1430, Until Discontinued, Apply patch(es) for 12 hours, and then remove for 12 hours., Routine lidocaine (Lidoderm) 5% patch 3 patch(Linked Group 4) 1341 (Patch Applied - Provider: Juan Mohan RN)1634 ([facility] Hold - Provider: Admin Adt - Reason: Transfer to a Procedural area)2005 ([facility] Unhold - Provider: Admin Adt) 1448 (Patch Applied - Provider: Ruth Barros RN) 3 patch, Transdermal, EVERY 24 HOURS, Fi rst dose (after last modification) on Mon09/03/21 at 1430, Until Discontinued, Apply patch(es) for 12 hours, and then remove for 12 hours., Routine lidocaine (Lidoderm) topical patch REMOVAL(Linked Grou p 3) 1634 ([facility] Hold - Provider: Admin Adt - Reason: Transfer to a Procedural area)2005 ([facility] Unhold - Provider: Admin Adt) 0130 (Patch Removed - Provider: Sharmin Dodge RN) 0 130 (Patch Removed - Provider: Jodi Anaya, DEVAN) Transdermal, EVERY 24 HOURS, First dose on 09/04/21 at 0130, Until Discontinued, Remove lidocaine 5% patch lidocaine (Lidoderm) topical patch REMOVAL(Linked Grou p 4) 1634 ([facility] Hold - Provider: Admin Adt - Reason: Transfer to a Procedural area)2005 ([facility] Unhold - Provider: Admin Adt) 0530 (Patch Removed - Provider: Sharmin Dodge RN) 0 530 (Patch Removed - Provider: Jodi Anaya RN) Transdermal, EVERY 24 HOURS, First dose (after [...] Ruth Barros, DEVAN)1200 (Hold - Provider: Ruth Barros RN - [...] (MAR Unhold - Provider: Admin Adt) 0818 (Patch [...] 0900 (Patch Removed - Provider: Hermelindo Yanez, RN) Transdermal, DAILY, First dose on Mon [...] (dose and location) verified - Provider: Sharmin Dodge, DEVAN) pantoprazole (Protonix) injection 40 mg (CANCELED) 091 1 (Given - Provider: Juan Mohan RN)163 (NOV Hold - Provider: Admin Adt - Reason: Transfer to a Procedural area)2005 (NOV Unhold - Provider: Admin Adt)210 (Given - Provider: Sharmin Dodge RN) 0818 (Given - Provider: Ruth Barros, DEVAN) 40 mg, Intravenous, 2 TIMES DAILY, First dose (after last modification) on Toya 09/02/21 at 1830, Until Discontinued pantoprazole EC (Protonix) tablet 20 mg 20 mg, Oral, DAILY, First dose on Mon at 1330, Until Discontinued, DO NOT CRUSH OR OPEN, Routine pantoprazole EC (Protonix) tablet 40 mg (CANCELED) 0901 (Given - Provider: Hermelindo Yanez, RN) 40 mg, Oral, DAILY, First dose on Mon at 0900, Until Discontinued, DO NOT CRUSH OR OPEN, Routine predniSONE (Deltasone) tablet 40 mg 934 (Given - Provider: Ruth Barros RN) 900 (Given - Provider: Hermelindo Yanez RN) 40 [...] area)2005 (MAR Unhold - Provider: Admin Adt) 826 (Given - Provider: Ruth villela RN)2099 (Not Given - Provider: Jodi Anaya RN - Reason: See comment - Comment: given earlier) 0800 (Given - Provider: Hermelindo Yanez RN) 5 mL, Intravenous, 2 TIMES DAILY, First dose on Toya 09/02/21 at 1345, Until Discontinued, Routine 2099 (Not Given - Provider: Sharmin maynard RN - Reason: See comment - Comment: infusing) sodium chloride 0.9 % (flush) (BD PosiFlush Normal Celestino ine 0.9) flush 5 mL 0900 (Given - Provider: Juan Mohan RN)163 (MAR Hold - Provider: Admin Adt - Reason: Transfer to a Procedural area)2005 (MAR Unhold - Provider: Admin Adt)2054 (Given - Provider: Sharmin Dodge RN) 826 (Given - Provider: Ruth Barros RN)2099 (Not [...] Burrows RN)1211 (Rate/Dose Change - Provider: Juan Mohan RN)1600 (Paused - Provider: Zaida Escalante RN)1634 (MAR Hold - Provider: Admin Adt - Reason: Transfer to a Procedural area) ,000 units/hr. Target Heparin UFH Level (anti-Xa activity) = 0.3 - 0.7 IU/mL Start adjustment schedule 6 hours after starting infusion. If Heparin UFH Level is: - less than 0.1 IU/mL, administer PRN lorri 2005 (MAR Unhold - Provider: Admin Adt) us and [...] dextrose 5% 250 mL infus ion 1634 (NOV Hold - Provider: Admin Adt [...] () 1929 (New Bag - Provider: Patricia Colindres RN)2300 [...] Chelle Burrows RN)0816 (Given - Provider: Kylah Martin, DEVAN) 50 mcg, Intravenous, EVERY 1 HOUR PRN, S tarting on Tyoa 09/02/21 at 1747, Until Mon09/03/21 at 1746, Pain, If medication ordered subcutaneously, do not administer more than 2 mL as a single injection., Routine 1000 (Given - Provider: Juan Mohan RN)1306 (Given - Provider: Kylah Martin RN)1503 (Given - Provider: Kylah Martin RN)1634 (MAR Hold - Provider: Admin Adt - Reason: Transfer to a Procedural area)2005 (MAR Unhold - Provider: Admin Adt) fentaNYL (pf) (50 mcg/mL) multi-dose injection (CANCEL ED) 1619 (Given - Provider: Wenceslao Ledesma RN)1628 (Given - Provider: Wenceslao Ledesma RN)1642 (Given - Provider: Wenceslao Ledesma RN)1647 (Given - Provider: Wenceslao Ledesma RN)1651 (Given - Provider: Wenceslao Ledesma, DEVAN)1710 (Given - Provider: Wenceslao Ledesma, RN) ONCE PRN, Starting on Toya 09/02/21 at 163 4, Until Mon09/03/21 at 1903, Cath (Intra-Procedure), Routine 1733 (Given - Provider: Wenceslao Ledesma, DEVAN )1748 (Given - Provider: Wenceslao Ledesma, RN) fentaNYL (pf) (50 mcg/mL) multi-dose injection (CANCEL ED) 1633 (Given - Provider: Wenceslao Ledesma RN)1753 (Given - Provider: Wenceslao Ledesma RN)1824 (Given - Provider: Wenceslao Ledesma RN)1840 (Given - Provider: Malvin Castro)1901 (Given - Provider: Malvin Castro) ONCE PRN, [...] 1208 (Given - Provider: Juan Mohan, DEVAN)1634 (MAR Hold - Provider: Admin Adt - Reason: Transfer to a Procedural area)2005 (MAR Unhold - Provider: Admin Adt) 0-4,000 Units, Intravenous, BOLUS PER PER STRONG PROTOCOL, Starting on Toya 09/02/21 at 1259, Until 09/04/21 at 0726, Per Protocol, START ADJUSTMENT SCHEDULE 6 HOURS AFTER STARTING INFUSION Heparin UF H Level between 0.1 - 0.29 IU/mL: Bolus 2,000 units Heparin UFH Level less than 0.1 IU/mL: Bolus 4,000 units, Routine heparin (porcine) (1,000 units/mL) injection (CANCELED ) 1652 (Given - Provider: Wenceslao Ledesma RN)1705 (Given - Provider: Wenceslao Ledesma, DEVAN)1805 (Given - Provider: Wenceslao Ledesma RN) ONCE [...] tarting on Toya 09/02/21 at 1251, Until Mon09/03/21 at 0852, Wheezing, Routine ipratropium-albuteroL (Duoneb) 0.5 [...] (CANC ELED) 1645 (Given - Provider: Wenceslao Ledesma, RN) 1 mg, Intravenous, EVERY 1 HOUR PRN, 2 d oses, Starting on Toya 09/02/21 at 1721, Until Mon09/03/21 at 1903, For sheath removal, May repeat once while in Cath Recovery Unit. , Cath (Recovery-Hospital Unit), Routine midazolam (pf) (Versed) (1 mg/mL) multi-dose injection (CANCELED) 1618 (Given - Provider: Wenceslao Ledesma, RN)1651 (Given - Provider: Wenceslao Ledesma, RN)1716 (Given - Provider: Wenceslao Ledesma, RN) ONCE PRN, Starting on Mon09/03/21 at 161 8, Until Mon09/03/21 at 1903, Cath (Intra-Procedure), Routine nitroGLYcerin (Nitrostat) disintegrating tablet 0.4 mg 1634 (NOV Hold - Provider: Admin Adt - Reason: Transfer to a Procedural area)2005 (MAR Unhold - Provider: Admin Adt) 0.4 mg, [...] Chelle Burrows, DEVAN)0711 (Given - Provider: Chelle M Markos, RN)1208 (Given - Provider: Juan Mohan, DEVAN)1634 (NOV Hold - Provider: Admin Adt - Reason: Transfer to a Procedural area)2005 ([facility] Unhold - Provider: Admin Adt) 0136 (Given - Provider: Sharmin Dodge, DEVAN)0643 (Given - Provider: Sharmin Dodge, DEVAN)1121 (Given - Provider: Ruth Barros, RN) 10 mg, Oral, EVERY 4 HOURS PRN, Starting on Toya 09/02/21 at 1722, Until Sat 12 at 1345, Pain, Routine 205 (Given - Provider: Sharmin Dodge, DEVAN) oxyCODONE (Roxicodone) tablet 10 mg 1757 (Given - Provider: Ruth Barros, DEVAN)2349 (Given - Provider: Jodi Anaya, DEVAN) 0540 (Given - Provider: Jodi Anaya, RN)1137 (Given - Provider: Hermelindo Yanez RN) 10 mg, Oral, EVERY 6 HOURS PRN, Starting on 09/04/21 at 1400, Until 09/05/21 at 1508, Pain, Routine perflutren lipid microspheres (Definity) injection 1.2 mL (COMPL ETED) 1050 (Given - Provider: Shimon García) 1.2 mL, Intravenous, ONCE PRN, 1 dose, S tarting on 09/05/21 at 1049, Until Sun 12 at 1050, Other, Routine potassium chloride ER (K-Dur/Klor-Con) tablet 20 mEq(L inked Group 7) 0141 (See Alternative - Provider: Chelle Burrows RN)1634 ([facility] Hold - Provider: Admin Adt - Reason: Transfer to a Procedural area)2005 ([facility] Unhold - Provider: Admin Adt) 20 mEq, Oral, EVERY 4 HOURS PRN, Startin g on Toya 09/02/21 at 2037, Until 09/05/21 at 1508, hypokalemia, Administer for serum potassium (mMol/L) of 3.9 - 4 See instructions for Potassium Protocol in online policies., Routine potassium chloride ER (K-Dur/Klor-Con) tablet 40 mEq(L inked Group 7) 0141 (Given - Provider: Chelle Burrows, RN)163 ([facility] Hold - Provider: Admin Adt - Reason: Transfer to a Procedural area)2005 ([facility] Unhold - Provider: Admin Adt) 40 mEq, Oral, EVERY 4 HOURS PRN, Startin g on Toya 09/02/21 at 2037, Until 09/05/21 at 1508, hypokalemia, Administer for serum potassium (mMol/L) of 3.6 - 3.8 See instructions for Potassium Protocol in online policies., Routine sodium chloride 0.9 % (flush) (BD PosiFlush Normal Celestino ine 0.9) flush 5-20 mL 1633 ([facility] Hold - Provider: Admin Adt - Reason: Transfer to a Procedural area)2005 ([facility] Unhold - Provider: Admin [...] Celestino ine 0.9) flush 5-20 mL 1633 ([facility] Hold - Provider: Admin Adt - Reason: Transfer to a Procedural area)2005 ([facility] Unhold - Provider: Admin [...] on Mon09/02/21 at 1415, Until Discontinued, Routine And gabapentin (Neurontin) capsule 1,200 mgJump to med 1,200 mg, Oral, NIGHTLY, First dose on 09/02/21 at 2100, Until Discontinued, Routine Group 2: POCT Fingerstick Glucose (CANCELED) Routine, EVERY 4 HOURS, First occurrence on Mon09/05/21 at 1200, Until Specified
Consider choosing EVERY [...] last modification) on Mon09/05/21 at 1200, Until Discontinued
CORRECTION BOLUS [6-12 [...] 09/02/21 at 2037, Until 09/05/21 at 1508, hypokalemia
Administer for serum potassium (mMol/L) of 3.9 - 4 See instructions for Potassium Protocol in online policies.
Routine Or potassium chloride ER (K-Dur/Klor-Con) tablet 40 mEqJump to med 40 mEq, Oral, EVERY 4 HOURS PRN, Startin g on Toya 09/02/21 at 2036, Until [place] 09/05/21 at 1508, hypokalemia
Administer for serum potassium (mMol/L) of 3.6 - 3.8 See instructions for Potassium Protocol in online policies.
Routine documented in this encounter Care Teams Cnc Laser Operator Relationship Specialty Start Date End Date Valentin Parekh MD PCP - General Family Medicine 08/06/[address] [place] [id number] documented as of this encounter
--- OUTSIDE RECORDS SUMMARY | 2022-08-14 18:39 | XMS_ITS | Encounter Summary ---
:1975 [place] [address] Care Team Providers Name Role Phone Gonzales Mckinnon MD Primary Care Provider Encounter Details Date Type Department Care Team Description 07/17/2014 Orders Only Lab [facility] [address] [place] [address] [place] [address] [phone] (Wo rk) Social History Tobacco Use Types [...] 08/22/2022 Office Visit Cardiology Tameka Neal MD [place], [place] [address] (Wo rk) documented as of this encounter Procedures Procedure Name Priority Date/Time Associated Diagnosis Comme [facility] SURGICAL PATHOLOGY Routine 07/17/2014 7:30 AM Res ults for this REPORT EDT procedure are i n the results section. documented in this encounter Results Surgical Pathology Report (07/17/2014 7:30 AM EDT) [facility] Method Time Signature Surgical [facility] ? Provider: ?? ROBERT CROSS Pt. Name: ?? Mary MONIQUE PRIL ?OLYA ? Acc #: ?[id number] ?Pt. MRN: ?[id number] ? Col Date: ?? 07/17/2014 ?/Sex: ?1 ,(38 ? years),Female ? Rec Date: ?? 07/18/2014 ?LOC: ?[facility] ? SURGICAL PATHOLOGY ? ---Pathologic Diagnosis--- ? Plantar ??soft tissue mass ?Plantar fibromatosis ? 07/21/14 ? VAM ? 07/21/14 Verified by: ? Humza Wood MD ? Pathologist ? (Electronic Si gnature) ? The attending pathologist whose signature appears o n this report has ? reviewed all diagnostic slides and has edited the emily ss and/or ? microscopic portion of the report in rendering the fi nal pathologic ? diagnosis. ? ---Gross Description--- ? A - Labeled/Fixative: Soft tissue mass plantar left f oot, formalin. ? Quantity/Size: Two, 1.5 and 2.5 cm. ? Tissue Description: Irregular portions of rubbery, richey-white tissue. ? Sections/Processing: (R1) ??ejr ? ---Clinical Information--- ? Specimen Submitted: ? A - Soft tissue mass plantar left foot ? Clinical History: ? Not provided ? Clinical Diagnosis: ? Not provided ? Referring Identifier: ??[id number] Specimen (Source) Anatomical Collection Method Collection Time Re ceived Time Location / / Volume Laterality 07/17/2014 7:30 AM EDT Narrative [facility] - 07/21/2014 3:29 PM E DT Spec In Lab / [facility] Robert Cross DPM PATHOLOGY/CYTOLOGY ORDERAB LES Performing Organization Address City/State/[place] [address] [place] QUINONES documented in this encounter Visit Diagnoses Not on filedocumented in this encounter Care Teams Reproduction Technician Relationship Specialty Start Date End Date Gonzales Mckinnon MD PCP - General 08/02/12 08/05/21 [address] [place] [address] documented as of this encounter
--- OUTSIDE RECORDS SUMMARY | 2022-08-14 18:39 | XMS_ITS | Encounter Summary ---
:1975 Author Organization [facility] Address [facility] [place] [address] Care Team Providers Name Role Phone Gonzales Mckinnon MD Primary Care Provider Encounter Details Date Type Department Care Team Description 08/03/2012 External Results [place] [facility] Fernando Silverman MD [facility] [place] [address] NEUROLOGY DEPT. [phone] [place], [place] [address] (Wo rk) Social History Tobacco [...] Tameka Neal MD [facility] [address] [place], [place] [address] (Wo rk) documented as of this encounter Procedures Procedure Name Priority Date/Time Associated Diagnosis Comme nts EMG SCAN Routine 08/02/2012 documented in this encounter Results Scan Doc: EMG (08/02/2012) Narrative This result has an attachment that is no t available. Luis Fernando Silverman MD MEDIA MGR SCAN EXT ORDR/RSLT documented in this encounter Visit Diagnoses Not on filedocumented in this encounter Care Teams Static Balancer Relationship Specialty Start Date End Date Gonzales Mckinnon MD PCP - General 08/02/12 08/05/[address] [place] [address] documented as of this encounter
--- OUTSIDE RECORDS SUMMARY | 2022-08-14 18:39 | XMS_ITS | Encounter Summary ---
:1975 Author Organization [facility] Address [facility] [place] [address] Care Team Providers Name Role Phone Gonzales Mckinnon MD Primary Care Provider Encounter Details Date Type Department Care Team Description 06/26/2012 Orders Only [place] [facility] [place] Ramirez [place] [id number] ORTHOPAEDIC SURGERY [phone] [place], [place] [address] (Wo rk) Social History Tobacco Use Types Packs/Day Years Used Date Smoking Tobacco: Never Assessed Sex Assigned at Date Recorded Not on file documented as of this encounter Plan of Treatment Upcoming Encounters Date Type Specialty Care Team Description 08/22/2022 Appointment Cardiology 08/22/2022 Laboratory Appointment Lab 08/22/2022 Office Visit Cardiology Tameka Neal MD [facility] [address] [place], [place] [address] (Wo rk) documented as of this encounter Procedures Procedure Name Priority Date/Time Associated Diagnosis Comme nts FILM LIBRARY Routine 06/26/2012 9:51 AM Results f or this STORAGE ONLY MR EDT procedure ar e in SHOULDER the results section. documented in this encounter Results FILM LIBRARY- STORAGE ONLY MR SHOULDER (06/26/2012 9:51 AM EDT) Anatomical Region Laterality Modality Other Specimen (Source) Anatomical Collection Method Collection Time Re ceived Time Location / / Volume Laterality 06/26/2012 9:51 AM EDT Narrative 11/21/2013 9:40 PM EST This is a non-reportable exam. Procedure Note Ricardo Ibarra - 11/21/2013Formatting of t his note might be different from the original. This is a non-reportable exam. Wenceslao Ramirez MD [facility] FILM LIBRARY ORDERABLES documented in this encounter Visit Diagnoses Not on filedocumented in this encounter Care Teams Inkjet Operator Relationship Specialty Start Date End Date Gonzales Mckinnon MD PCP - General 08/02/12 08/05/[address] [place] [address] documented as of this encounter
--- OUTSIDE RECORDS SUMMARY | 2022-08-14 18:39 | XMS_ITS | Encounter Summary ---
:1975 Author Organization [facility] [address] Care Team Providers Name Role Phone Gonzales Mckinnon MD Primary Care Provider Encounter Details Date Type Department Care Team Description 08/02/2012 Office Visit Neurology at [facility] Luis Fernando Silverman, Arm numbness (Primary Dx); [facility] [place] [address] NEUROLOGY DEPT. [phone] [place], [place] [address] Social History Tobacco Use Types Packs/Day Years Used Date Smoking Tobacco: Every Day Cigarettes 0.5 Alcohol Use Standard Drinks/Week Comments Yes 0 (1 standard drink = 0.6 oz pure alcoho l) occasional Sex Assigned at Date Recorded Not on file documented as of this encounter Progress Notes Luis Fernando Silverman MD - 08/02/2012 11:46 AM EDT Aracelis Clif Noble referred for EDX studies by [facility] [place] [address] to look for evidence of brachial plexopathy . Report scanned into EDH. documented in this encounter Plan of Treatment Upcoming Encounters Date Type Specialty Care Team Description 08/22/2022 Appointment Cardiology 08/22/2022 Laboratory Appointment Lab 08/22/2022 Office Visit Cardiology Tameka Neal MD [facility] [place], [place] [address] (Wo rk) documented as of this encounter Visit Diagnoses Diagnosis Arm numbness - Primary Disturbance of skin sensation Arm pain Pain in limb documented in this encounter Care Teams Poultry Farmer Meat Relationship Specialty Start Date End Date Gonzales Mckinnon MD PCP - General 08/02/12 08/05/[address] [place] [address] documented as of this encounter
--- OUTSIDE RECORDS SUMMARY | 2022-08-14 18:39 | XMS_ITS | Encounter Summary ---
:1975 Author Organization [facility] Address [address] [place] [address] Care Team Providers Name Role Phone Gonzales Mckinnon MD Primary Care Provider Encounter Details Date Type Department Care Team Description 08/02/2012 Hospital Encounter XRay at [facility], CONV Dislocation of left [address] [place] [address] Wenceslao Torres MD [facility] [place] [address] shoulder joint, [place], [place] chronic, recurr ent, [phone] with multiple [phone] surgeries. Social History Tobacco Use Types Packs/Day Years Used Date Smoking Tobacco: Every Day Cigarettes 0.5 Alcohol Use Standard Drinks/Week Comments Yes 0 (1 standard drink = 0.6 oz pure alcoho l) occasional Sex Assigned at Date Recorded Not on file documented as of this encounter Medications at Time of Discharge Medication Sig Dispensed Refills Start Date End Date cimetidine (TAGAMET) 400 Take 400 mg by mouth 0 09/05/2021 mg tablet 2 times daily. citalopram (CeleXA) 40 mg Take 40 mg by mouth 0 05/13/2022 Tablet daily. estradiol (ESTRACE) 1 mg Take 1 mg by mouth 0 05/13/2022 tablet daily. ibuprofen (ADVIL;MOTRIN) Take 200 mg by mouth 0 09/05/2021 200 mg tablet every 6 hours as needed. OXYCODONE Take 5 mg by mouth 0 2021 HCL/ACETAMINOPHEN daily as needed. (PERCOCET ORAL) documented as of this encounter Plan of Treatment Upcoming Encounters Date Type Specialty Care Team Description 08/22/2022 Appointment Cardiology 08/22/2022 Laboratory Appointment Lab 08/22/2022 Office Visit Cardiology Tameka Neal MD [facility] [place], [place] [address] (Wo rk) documented as of this encounter Procedures Procedure Name Priority Date/Time Associated Diagnosis Comme nts XR SHOULDER Routine 08/02/2012 10:35 AM Dislocation of left R esults for this EDT shoulder joint, procedure ar e in chronic, recurrent, the resu lts with multiple section. surgeries. documented in this encounter Results XR shoulder (08/02/2012 10:35 AM EDT) Anatomical Region Laterality Modality Shoulder N/A Radiographic Imaging Specimen (Source) Anatomical Collection Method Collection Time Re ceived Time Location / / Volume Laterality 08/02/2012 10:35 AM EDT Narrative 08/02/2012 3:10 PM EDT Examination SHOULDER COMPLETE/LEFT Clinical History left shoulder dislocation Comparison 05/19/2011, left shoulder MRI 06/26/2012 . Technique 4 views left shoulder. Findings No acute fracture is identified. ??There is a prominent inferior subluxation of the humeral head relative to the glenoid . ??Rounded radiolucencies within the anterior and anterior inferior glenoid, which has an irregular contour, likely represent postsurgical changes of previo us Bankart repair. No periarticular calcification identified. ??The acromioc lavicular joint, is within normal limits. ??Visualized left lung is clear. Impression No acute fracture or dislocation identif ied. Inferior subluxation of the humeral head . Irregular appearance of the anterior and anterior inferior glenoid with rounded radiolucencies that may represent sequel a of postsurgical change the from previous Bankart repair. Procedure Note Johan Euceda MD - 08/02/2012Formatti ng of this note might be different from the original. Examination SHOULDER COMPLETE/LEFT Clinical History left shoulder dislocation Comparison 05/19/2011, left shoulder MRI 06/26/2012 . Technique 4 views left shoulder. Findings No acute fracture is identified. There i s a prominent inferior subluxation of the humeral head relative to the glenoid . Rounded radiolucencies within the anterior and anterior inferior glenoid, which has an irregular contour, likely represent postsurgical changes of previo us Bankart repair. No periarticular calcification identified. The acromiocla vicular joint, is within normal limits. Visualized left lung is clear. Impression No acute fracture or dislocation identif ied. Inferior subluxation of the humeral head . Irregular appearance of the anterior and anterior inferior glenoid with rounded radiolucencies that may represent sequel a of postsurgical change the from previous Bankart repair. Wenceslao Ramirez MD IMG DX ORDERABLES documented in this encounter Visit Diagnoses Diagnosis Dislocation of left shoulder joint, oyster sorter maria de jesus, recurrent, with multiple surgeries. Closed dislocation of shoulder, unspecif ied site documented in this encounter Care Teams Derrick Boat Captain Relationship Specialty Start Date End Date Gonzales Mckinnon MD PCP - General 08/02/12 08/05/21 [address] [place] [place] [address] documented as of this encounter
--- OUTSIDE RECORDS SUMMARY | 2022-08-14 18:39 | XMS_ITS | Encounter Summary ---
:1975 Author Organization [facility] [place] [address] Care Team Providers Name Role Phone Gonzales Mckinnon MD Primary Care Provider Encounter Details Date Type Department Care Team Description 08/02/2012 External Results XRay at [facility] Provider, [address] [place] [address] Social History Tobacco Use Types Packs/Day [...] 08/22/2022 Office Visit Cardiology Tameka Neal MD [facility] [address] [place] [address] (Wo rk) documented as of this encounter Procedures Procedure Name Priority Date/Time Associated Diagnosis Comme nts DIAGNOSTIC RADIOLOGY SCAN Routine 07/19/2011 documented in this encounter Results Scan Doc: Diagnostic Radiology (07/19/2011) Anatomical Region Laterality Modality Other Narrative This result has an attachment that is no t available. Scanning Provider MEDIA MGR SCAN EXT ORDR/RSLT documented in this encounter Visit Diagnoses Not on filedocumented in this encounter Care Teams Podiatric Aide Relationship Specialty Start Date End Date Gonzales Mckinnon MD PCP - General 08/02/12 08/05/21 [address] [place] [address] (work) documented as of this encounter
--- OUTSIDE RECORDS SUMMARY | 2022-08-14 18:39 | XMS_ITS | Encounter Summary ---
:1975 [place] [address] Care Team Providers Name Role Phone Valentin Parekh MD Primary Care Provider Encounter Details Date Type Department Care Team Description 09/01/2021 Telephone Cardiology Oscar Saah MD [facility] [place] [address] CARDIOLOGY DEPT [phone] [place], [place] [address] (Wo rk) Social History Tobacco Use Types Packs/Day Years Used Date Smoking Tobacco: Every Day Cigarettes 0.5 Alcohol Use Standard Drinks/Week Comments Yes 0 (1 standard drink = 0.6 oz pure alcoho l) occasional Sex Assigned at Date Recorded Not on file documented as of this encounter Miscellaneous Notes Telephone Encounter - Oscar Saha MD - 09/01/2021 2:05 PM EST Telephone Triage Note Initial contact date: 09/01/2021 Initial contact time: 2:05 PM Referring provider: Dr. Holcomb Patient location: [facility] Past medical history: Hx of dislocation of the shoulder Smoker History 46 Y O F with history of smoking without prior history of ASCVD presents to [facility] with chest pain and positive troponins with elevated BNP. TTE with no WM abnormalities. She is having intermittent chest pain now. She was seen by Dr. Toledo and referred for [facility] here. Pertinent diagnostic findings: Vitals: BP 109/83 HR 103 RR 20 SaO2 93% EKG: Poor r-wave progression, Troponin hs 612 CBC: WBC 12, 10, 597 BMP: creatinine normal. Glucose 300s. BNP 2419 TTE: EF 50-60%, trivial pericardial effusion. No WM abnormalities. Plan: - ASA and heparin loading - Plavix 75 mg daily - Atorvastatin 40, increasing to 80 mg daily - Metoprolol 12.5 q6h. - Accepted for transfer for ischemic evaluaiton. Oscar Saha MD 09/01/2021 2:05 PM documented in this encounter Plan of Treatment Upcoming Encounters Date Type Specialty Care Team Description 08/22/2022 Appointment Cardiology 08/22/2022 Laboratory Appointment Lab 08/22/2022 Office Visit Cardiology Tameka Neal MD [facility] [address] [place] [address] (Wo rk) documented as of this encounter Visit Diagnoses Not on filedocumented in this encounter Care Teams Bank Vault Custodian Relationship Specialty Start Date End Date Valentin Parekh MD PCP - General Family Medicine 08/06/[address] [place] [phone] documented as of this encounter
--- OUTSIDE RECORDS SUMMARY | 2022-08-14 18:39 | XMS_ITS | Encounter Summary ---
:1975 [place] [address] Care Team Providers Name Role Phone Valentin Parekh MD Primary Care Provider Reason for Visit Auth/Cert Specialty Diagnoses / Procedures Referred By Contact Refer red To Contact Diagnoses NSTEMI (non-ST elevated myocardial infarction) Elevated troponin Referral ID Status Reason Start Date Expiration Date Visits Requ ested Visits Authorized [id number] 1 1 Encounter Details Date Type Department Care Team Description 09/02/2021 Surgery Athlete Marketing Agent Rafi Li, CARDIAC CATHETERIZATION [facility] [place] [address] CARDIOLOGY [phone] [place], [place] [address] (Wo rk) Social History Tobacco [...] Pressure 108/66 09/02/2021 2:33 PM EST Pulse 96 09/02/2021 2:33 PM EST Temperature 37.2 ??C (99 ??F) 09/02/2021 12:35 PM EST Respiratory Rate 35 09/02/2021 2:33 PM EST Oxygen Saturation 95% 09/02/2021 2:33 PM EST Inhaled Oxygen Concentration - - Weight 82.7 kg (182 lb 5.1 oz) 09/02/2021 12:29 PM EST Height 162.6 cm (5' 4) 09/02/2021 12:29 PM EST Body Mass Index 29.97 09/02/2021 12:29 PM EST documented in this encounter Discharge Summaries Serafin Lam MD - 09/05/2021 1:08 PM EST Images from the original note were not included. Patient Name: Aracelis Sho Patient Age: 46 y.o. Language: Citizen Of [place] Race: White Ethnicity: Not nor Admit date: [...] PCP Contact Information: Valentin Parekh MD [address] [facility] / [place] [address] Pending Studies and Lab Data: none Discharge [...] of her symptoms decided to present to [facility] on 08/30. ?? At [facility], patient was tachycardic to 103 though otherwise [...] EMILEE to RCA Patient initially presented to [facility] ED with chest pain on 08/30 PM, was found to have elevated troponin and T wave inversions on EKG, with apical hypokinesis on echo. She was stabilized with nitroglycerin was started on DAPT and heparin drip, which was transitioned to therapeutic Lovenox prior to transfer. On 09/02 she was transferred to [facility], ASA/Plavix/Lovenox was continued. She was taken to the [facility] where she was found to have discrete, [...] the next day 09/03 she returnedto the [facility], where EMILEE was placed distal RCA lesion. [...] OSH - ferritin 207, Tsat 11 at [facility] - started ferrous sulfate QOD [...] 347 358* -- 432* Recent Labs 09/05/21 04009/04/2124609/03/21 04009/03/215 09/02/21 1740 09/02/21 1330 NA 139 140 -- 141 < [...] Procedure Component Value Units Date/Time COVID-19 PCR [[id number]] Collected: 09/02/21 1301 Lab Status: Final result [...] using the Simplexa COVID-19 Direct Assay by [facility] as authorized by the FDA issued Emergency Use Authorization (EUA). This assay is intended for In-vitro Diagnostic (IVD) use with nasopharyngeal swabs collected from individuals meeting the [facility] criteria for testing. The assay is performed based on the instructions for use and additional guidance provided by the FDA. Testing is performed in the Microbiology Laboratory within the Department of Pathology and Laboratory Medicine at [facility], certified under the Clinical Laboratory Improvement Amendments [...] fact sheets at the following FDA website: https://www.fda.gov/medical-devices/ppqmsrchnde-uspndcj-8488-fkvdx-81-kxqxsyceu- bzr-pjrjelvqvnxbes-zabzpxq-devices/pyvgj-duqtbjrxeym-ihvs SARS-CoV-2 Source SAND CONDITIONER MACHINE Swab Imaging: Results for orders placed or performed during the hospital encounter of 09/02/21 XR Chest One View (Exam End: 09/02/2021 5:45 PM) Impression Pulmonary vascular congestion. Jones-Tavia catheter tip at the right main pulmonary artery. Radiopaque marker of IABP catheter at the aortic knob. Thank you for letting us participate in the care of this patient. If you are a health care provider and have any questions regarding this report, please contact the number below. For patients who have questions please contact the health morning caregiver that requested your imaging first. Electronically signed by: Billie Juan MD, [facility] ([phone]), at 09/02/2021 7:28 PM XR Chest One View (Exam End: 09/04/2021 9:40 AM) Impression Interval removal of Jones-Tavia catheter. Interval improvement in prominence of persistent [...] who have questions please contact the health morning caregiver that requested your imaging first. Electronically signed by: Ramos Ball MD, [facility] ([phone]), at 09/04/2021 10:10 AM TTE 09/03/21: Rhythm: [...] flow was normal and was via the [place] vessel. The mid segment of the RCA [...] appointments: During 8am-5pm Monday through Monday call [phone] to speak with a nurse in the cardiology clinic All other times call [phone] and ask to speak to the club manager investigations manager. What activities can you do, and [...] the hospital? Serafin Lam MD - Attending Chancellor Oscar Saha MD - Authorization Representative Ariel Rush MD, Mirza Robbins DO - Resident Physicians When do I see my doctors next? No future appointments. You will need to follow up with your PCP (Valentin Parekh MD at [phone]) within 1 week of discharge - Please call to schedule an appointment within 2 weeks. You will need to follow up with your Chancellor within 1 month of discharge - We will call you when this is scheduled. For questions regarding issues relating to your hospitalization on the Cardiology Service, please contact your inpatient physician through the [facility] Wooling Machine Operator ([phone] and ask for pager #[phone]. Issues after hours and on weekends will be handled by the Cardiology staff on-call. General Instructions None Inpatient Provider Contact Information: For questions regarding this document or issues relating to this hospitalization on the Medical Service, please contact your inpatient physician through the [facility] [employer] Machine Operator . Issues after hours and [...] appointments: During 8am-5pm Monday through Monday call [phone] to speak with a nurse in the cardiology clinic All other times call [phone] and ask to speak to the club manager investigations manager. What activities can you do, and [...] the hospital? Serafin Lam MD - Attending Chancellor Oscar Saha MD - Authorization Representative Ariel Rush MD, Mirza Robbins DO - Resident Physicians When do I see my doctors next? No future appointments. You will need to follow up with your PCP (Valentin Parekh MD at [phone]) within 1 week of discharge - Please call to schedule an appointment within 2 weeks. You will need to follow up with your Chancellor within 1 month of discharge - We will call you when this is scheduled. For questions regarding issues relating to your hospitalization on the Cardiology Service, please contact your inpatient physician through the [facility] Wooling Machine Operator ([phone] and ask for pager #[phone]. Issues after hours and on weekends will [...] 3 tablets by 30 tablet 1 09/05/2021 05/03/2022 (Tylenol) 325 mg mouth every 8 hours. [...] and we discussed follow up with a Chancellor. All questions answered and patient appreciative of [...] Martines. Xiang Peters DO Endocrinology Fellow Pager [phone] I have been in the patient's care [...] pain on opiate therapy whowas transferred from [facility] for NSTEMI (type I) found to have significant complex disease of the RCA and LAD with severely elevated LVEDP. ?Admitted to the ICU on 09/02 because she developed recurrent ischemic chest pain and flash pulmonary edema, presumed due to ischemia, and was taken emergently back to the labor delivery rn for IABP placement. After aggressive diuresis and [...] denies Precautions/Special Considerations: Code Status: Full Code, Everetts precautions , Room air, On telemetry Mobility [...] the socket.?? No deformity noted by this functional tester typewriters to pt's L shoulder, RN aware or [...] in reach RN updated following visit. Assessment: Aracelis Monique was seen today for physical therapy evaluation. [...] in this evaluation. Time IN / OUT: 1841-9544 Total Minutes, Physical Therapy: 13 Billing Code: arti Bhatt PT, DPT Pager: [phone] Physical Therapy Inpatient Rehabilitation Department Serafin Salmeron MD - 09/05/2021 6:55 AM EST Inpatient Cardiology Progress Note Hospital Day 3 days Active Hospital Problems Diagnosis ??? NSTEMI (non-ST elevated myocardial infarction) Resolved Hospital Problems No resolved problems to display. ID: Aracelis Monique is a 46 y.o. female with a history of obesity (BMI 31), HTN, HLD, DM2 on insulin, ASCVD, chronic pain on opiate therapy who was transferred from [facility] for NSTEMI (type I) found to have significant complex disease of the RCA and LAD with severely elevated LVEDP. ?? Admitted to the ICU on 09/02 because she developed recurrent ischemic chest pain and flash pulmonary edema, presumed due to ischemia, and was taken emergently back to the labor delivery rn for IABP placement. After aggressive diuresis and [...] 09/02/2021 5:45 PM) Impression Pulmonary vascular congestion. Jones-Tavia catheter tip at the right main pulmonary artery. Radiopaque marker of IABP catheter at the aortic knob. Thank you for letting us participate in the care of this patient. If you are a health care provider and have any questions regarding this report, please contact the number below. For patients who have questions please contact the health morning caregiver that requested your imaging first. Electronically signed by: Billie Juan MD, [facility] ([phone]), at 09/02/2021 7:28 PM XR Chest One View (Exam End: 09/04/2021 9:40 AM) Impression Interval removal of Jones-Tavia catheter. Interval improvement in prominence of persistent [...] who have questions please contact the health morning caregiver that requested your imaging first. Electronically signed by: Ramos Ball MD, [facility] ([phone]), at 09/04/2021 10:10 AM TTE 09/03/21: SUMMARY: [...] on opiate therapy who was transferred from [facility] for NSTEMI (type I) found to have significant complex disease of the RCA and LAD with severely elevated LVEDP. ?? Admitted to the ICU on 09/02 because she developed recurrent ischemic chest pain and flash pulmonary edema, presumed due to ischemia, and was taken emergently back to the labor delivery rn for IABP placement. 09/05: After aggressive diuresis [...] OSH - ferritin 207, Tsat 11 at [facility] - started ferrous sulfate QOD [...] Rush. Serafin Lam MD, MPH, RPVI, FACC, [facility] Pager [phone] Cardiovascular Date [place] [address] Ruth Barros RN - 09/04/2021 4:52 PM [...] [X] N/A CPG GOAL OUTCOME EVALUATION: Ongoing GacHumza mason MD - 09/04/2021 12:00 PM EST Inpatient [...] Dr Nena Chin MD PGY-7 Interventional Cardiology [facility] Serafin Lam MD - 09/04/2021 9:53 AM [...] on opiate therapy who was transferred from [facility] for NSTEMI (type I) found to have significant complex disease of the RCA and LAD with severely elevated LVEDP. ?? Admitted to the ICU on 09/02 because she developed recurrent ischemic chest pain and flash pulmonary edema, presumed due to ischemia, and was taken emergently back to the labor delivery rn for IABP placement. After aggressive diuresis and now s/p PCI to the RCA on 09/04, patient transferred back to the [facility]. ?? 24 Hour Events/Subjective: - s/p PCI to the RCA on the evening of 09/04; AAOx4 - Continues to have productive cough and significant expiratory wheezes, on 2 L MA - Reports pleuritic chest pain as well; [...] 432* 428* Chemistry: Recent Labs 09/04/2124609/03/21 0400 09/03/214409/02/21 22009/02/21173909/02/21 1330 NA 140 -- 141 -- 140 [...] in this interval not displayed. Recent Labs 09/04/2124609/03/214409/02/21173909/02/21 1330 CALCIUM 8.9 8.6 8.5 8.5 8.4* [...] 09/02/2021 5:45 PM) Impression Pulmonary vascular congestion. Jones-Tavia catheter tip at the right main pulmonary artery. Radiopaque marker of IABP catheter at the aortic knob. Thank you for letting us participate in the care of this patient. If you are a health care provider and have any questions regarding this report, please contact the number below. For patients who have questions please contact the health morning caregiver that requested your imaging first. Electronically signed by: Billie Juan MD, [facility] ([phone]), at 09/02/2021 7:28 PM TTE 09/03/21: SUMMARY: [...] on opiate therapy who was transferred from [facility] for NSTEMI (type I) found to have significant complex disease of the RCA and LAD with severely elevated LVEDP. ?? Admitted to the ICU on 09/02 because she developed recurrent ischemic chest pain and flash pulmonary edema, presumed due to ischemia, and was taken emergently back to the labor delivery rn for IABP placement. After aggressive diuresis and [...] OSH - ferritin 207, Tsat 11 at [facility] - started ferrous sulfate QOD [...] course Mirza Robbins, DO PGY-3 Cardiology S2 (#[id number]) 09/04/21 CARDIOLOGY ATTENDING NOTE Patient: Aracelis Monique [...] for COPD exacerbation. Rest per Dr. Robbins. Serfain Lam MD, MPH, RPVI, FACC, [facility] Pager [phone] Cardiovascular Date [place] [place] [address] Ernesto Henderson MD - 09/04/2021 6:34 AM [...] site and no issues Ernesto Henderson MD [place], Yumi Menezes MD - 09/03/2021 10:16 AM [...] on opiate therapy who was transferred from [facility] for NSTEMI (type I) found to have significant complex disease of the RCA and LAD with severely elevated LVEDP. She is admitted to the ICU because she developed recurrent ischemic chest pain and flash pulmonary edema, presumed due to ischemia, and was taken emergently back to the labor delivery rn for IABP placement. The patient was seen [...] Good UOP. Net negative about 2.5L since labor delivery rn ?? Pain control an ongoing issue despite [...] and DECISION MAKINyoF admitted emergently from the labor delivery rn after flash pulmonary edema and refractory chest [...] until revascularized, can likely remove in the labor delivery rn. Removal of PAC after reasonable as well. [...] up Monday as able/appropriate. Please page this functional tester typewriters if you have any questions, thank you. Jessica Bhatt PT, DPT Pager #[phone] Physical Therapy Inpatient Rehabilitation Serafin Salmeron MD [...] anteriorly Abd- Soft, nontender Ext- No edema COOLER CONVEYOR LOADER- No gross abnormalities noted Psych- Anxious TTE [...] flow was normal and was via the [place] vessel. The mid segment of the RCA [...] infection in June 2021 who presented to [facility] with chest pain concerning for type [...] 09/02/2021 5:45 PM) Impression Pulmonary vascular congestion. Jones-Tavia catheter tip at the right main pulmonary artery. Radiopaque marker of IABP catheter at the aortic knob. Thank you for letting us participate in the care of this patient. If you are a health care provider and have any questions regarding this report, please contact the number below. For patients who have questions please contact the health morning caregiver that requested your imaging first. Electronically signed by: Billie Juan MD, [facility] ([phone]), at 09/02/2021 7:28 PM TTE 09/03/21: SUMMARY: [...] infection in June 2021 who presented to [facility] with chestpain concerning for type I NSTEMI. ? In the labor delivery rn, she was noted to have intervenable proximal [...] s/p 40 mg IV lasix in the labor delivery rn - Goal NN 1 L --Afterload: IABP [...] OSH - ferritin 207, Tsat 11 at [facility] -consider additional IV iron while [...] Rush MD PGY1 Cardiology S2 (#[id number]) 09/03/21 [place] CityYumi reddy MD - 09/02/2021 4:39 PM EST [...] on opiate therapy who was transferred from [facility] for NSTEMI (type I) found to have significant complex disease of the RCA and LAD with severely elevated LVEDP. She is admitted to the ICU because she developed recurrent ischemic chest pain and flash pulmonary edema, presumed due to ischemia, and was taken emergently back to the labor delivery rn for IABP placement. The patient was seen [...] Medicine Admission History and Physical Patient Name: Aracleis Monique Service: M1S2 Team Responsible Attending: Dr. John Paul MD PCP: Valentin Parekh MD PCP phone #: [phone] ID/Chief Complaint: Ms. Monique is a 46 yo active smoker, HLD, HTN, Type II DM, chronic pain (on opiates), family history of CAD, recent COVID-19 infection in June 2021 who presented to [facility] with chestpain concerning for type I [...] of her symptoms decided to present to [facility] on 08/30. 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 Patient's story is consistent with ACS. She was admitted to the ICCU tachycardic to the low 100s on 2 L NC, but otherwise stable. Given she is high risk (family hx, smoker, Type II DM, HLD, and HTN), we proceeded to the labor delivery rn shortly after arrival. In the labor delivery rn, she was noted to have intervenable proximal RCA and mid-LAD though given development of hypotension, an LVEDP of 40, and ?GI bleed (drop from 12-->9 in Hbg). GI has been consulted. For caroline, will place a IABP, aggressively diurese, and f/u GI recommendations. We are hopeful to optimize her enough to return to the labor delivery rn. PLAN: Cardiovascular Pump #Elevated LVEDP --Preload: (Diuretic plan: Boluses) - s/p 40 mg IV lasix in the labor delivery rn - Goal NN 1-2 L --Afterload: Place [...] DO Internal Medicine PGY-3 Cardiology S2, Pager [phone] 09/02/2021 Associated attestation - Tameka Neal MD - 09/02/2021 7:26 PM EST Cardiology Attending Addendum I was the assigned attending outgoing inspector for this clinical encounter. For the purposes [...] infection in June 2021 who presented to [facility] with a non-ST elevation CT. She was transferred to us and went to the [facility] where she was found to have significant [...] that she was fairly hypotensive in the [facility] and anytime her coronaries were injected she [...] For any additional questions, my pager is #[phone]. Tameka Coker MD MPH Advanced Heart Disease [...] management and to provide a review of jail diabetes care. Patient lethargic and difficult to [...] regimen: Diabetes Provider: PCP Dr. Valentin Parekh, [facility] Medications: Tresiba 136 units daily, Humalog [...] add carb controlled/carb counting diet once eating prison diabetes care: Medications - Outpatient treatment regimen recommendations pending based on the hospital course. Monitoring - continue BG tid ac & hs Diet - low fat/low carb diet Exercise - weight-bearing exercise 30 min/day, as tolerated Thank you for allowing us to provide care for your patient Stacy Karthik STEEL Endocrinology Pager [phone] 70 minutes of this 80 minute visit [...] Operative Note Patient Name: Aracelis Monique : [id number] MR#: [id number] Case Date: 09/02/2021 Surgeon: Surgeon(s) and Role: * Rafi Barrett MD - Primary Preoperative diagnosis: NSTEMI Postoperative diagnosis: LAD and RCA coronary artery disease Procedures: Right radial artery access Coronary angiography [facility] Right femoral access Balloon pump placed [...] placed. Patient began feeling better. Transferred to [facility] in stable condition. Rafi Barrett MD Consult Note - Magda Upton MD - 09/02/2021 3:43 PM EST GASTROENTEROLOGY & HEPATOLOGY CONSULTATION Initial Consult Note Requesting Provider: Jay Jay Gant MD REASON FOR CONSULTATION Coffee ground emesis HISTORY OF PRESENT ILLNESS December Sho is a 46 y.o. woman with PMH DMII, HLD, HTN, recent COVID-19 infection and tobacco use whoinitially presented to [facility] with an NSTEMI and was transferred to [facility] for cardiac catheterization. GI is [...] melena at home. She then presented to [facility] ED where she was noted to have [...] plavix 75 mg daily and transferred to [facility] for ischemic evaluation. Given concerns for active ACS she was brought to the labor delivery rn where she underwent cath without any intervention [...] magnesium sulfate 2 g Intravenous Once ??? [NOV Hold] heparin (porcine) infusion Stopped (09/02/21 1345) [MAR Hold] sodium chloride 0.9 % (flush), [MAR Hold] lidocaine, [MAR Hold] nitroGLYcerin, [MAR Hold]sodium chloride 0.9 % (flush), [MAR Hold] ipratropium- albuteroL, [NOV Hold] heparin (porcine) AND [MAR Hold] heparin (porcine) infusion, [MAR Hold] glucose 40% oral geL OR [NOV Hold] dextrose 10% OR [MAR Hold] glucagon, [NOV Hold] oxyCODONE ALLERGIES Allergies Allergen Reactions ??? [...] infection and tobacco use whoinitially presented to [facility] with an NSTEMI and was transferred to [facility] for cardiac catheterization. GI is [...] M.D. Fellow in Gastroenterology and Hepatology Pager #[phone] 09/02/2021 Associated attestation - Mark Cazares MD [...] considered at that time. Mark Cazares MD [facility] Gastroenterology Plan of Care - Oscar Saha MD - 09/02/2021 1:21 PM ESTSummary: Pre-cath Images from the original note were not included. Pre Cardiac Catheterization Note 46 y.o. female presents for chest pain. History of DM on insulin, HTN, HLD, family history of CAD, and current smoker who presented to [facility] with chest pain and shortness of [...] by Dr. Wilian Toledo and transferred to [facility] for invasive work-up. She notably [...] to long-term DAPT Moderate Sedation OK Oscar Saah MD 09/02/2021 documented in this encounter Plan of Treatment Upcoming Encounters Date Type Specialty Care Team Description 08/22/2022 Appointment Cardiology 08/22/2022 Laboratory Appointment Lab 08/22/2022 Office Visit Cardiology Tameka Neal MD [facility] er [address] [place], [place] [address] (Wo rk) Scheduled Orders Name Type [...] PM EST disease involving procedure are in [place] coronary the results artery of [place] section. heart without angina pectoris EKG 12-LEAD [...] POC Glucose 256 (H) 65 - 199 [facility] mg/dL [facility] Comment: Supplemental ranges: <140 mg/dL before meals <180 mg/dL all other times of the day Specimen Anatomical Collection Method Collection Time Receive d Time (Source) Location / / Volume Laterality Blood 09/05/2021 12:27 09/05/2021 PM EST 12:27 PM EST Serafin Lam MD POINT OF CARE TEST ORDERABLE S Performing Organization Address City/State/[place] [address] ECHOCARDIO[address] LMTD W CONTRAST W LMTD SPEC DOPP COLOR DOPP (09/05/2021 10:49 AM EST) athologist Signature EF [facility] Anatomical Region Laterality Modality Other Specimen (Source) Anatomical Location Collection Method / Collectio n Time Received Time / Laterality Volume 09/05/2021 Narrative 09/05/2021 11:11 AM EST Amended Report Procedure: ?Transthoracic Echocardio gram Patient: ?SHO ARACELIS ?(Age): 1975(46y) Med Rec#: ? [id number] ?Sex: ?F ? Site Loc: ? DH ?Ht / Wt: ??163(cm)/79(kg) Pt. Loc: ?CCU ? BSA: ?1.85 Study Date: ?? 09/05/2021 ?Pt. Type: Inpatient Tape: ? Referring: Serafin Lam ??([id number]) Reading: Hernán Mariscal ([id number]) Radiation Engineer: Shimon García Diagnosis: *Unspecified systolic (congestive) hear [...] 09/05/2021 1 1:12:38 Images reviewed and interpretation [facility] Cardiac Ultrasound Laboratory Procedure Note Hernán Mariscal MD - 09/05/2021Formatt ing of this note might be different from the original. Amended Report Procedure: Transthoracic Echocardiogram Patient: SHO ARACELIS (Age): 1975 (46y) Med Rec#: [id number] Sex: F Site Loc: [facility] Ht / Wt: 163(cm)/79(kg) Pt. Loc: CCU BSA: 1.85 Study Date: 09/05/2021 Pt. Type: Inpatie nt Tape: Referring: Serafin Lam ([id number]) Reading: Hernán Mariscal ([id number]) Radiation Engineer: Shimon García Diagnosis: *Unspecified systolic (congestive) hear [...] 8 Images reviewed and interpretation verif ied [facility] Cardiac [facility]ound Laboratory Serafin Lam MD ECHO ORDERABLES POCT Glucose (09/05/2021 7:48 AM EST) P athologist Signature POC Glucose 156 65 - 199 [facility]dL [facility] Comment: Supplemental ranges: <140 mg/dL before meals <180 mg/dL all other times of the day Specimen Anatomical Collection Method Collection Time Receive d Time (Source) Location / / Volume Laterality Blood 09/05/2021 7:48 AM 7:48 EST AM EST Serafin Lam MD POINT OF CARE TEST ORDERABLE S Performing Organization Address City/State/[place] [address] (ABNORMAL) POCT Glucose (09/05/2021 5:38 AM EST) athologist Signature POC Glucose 213 (H) 65 - 199 [facility] mg/dL [facility] Comment: Supplemental ranges: <140 mg/dL before meals <180 mg/dL all other times of the day Specimen Anatomical Collection Method Collection Time Receive d Time (Source) Location / / Volume Laterality Blood 09/05/2021 5:38 AM 5:38 EST AM EST Serafin Lam MD POINT OF CARE TEST ORDERABLE S Performing Organization Address City/State/[place] [address] (ABNORMAL) Differential, Automated (09/05/2021 4:02 AM EST) [facility] gist Method Time Signature Neutrophils % 58.2 % [facility] LABORATORY Neutr Abs (ANC) 6.82 (H) 1.70 - [facility] 6.10 [facility] x10(3)/[facility] L LABORATORY Lymphocytes % 31.2 % [facility] Lymphocytes Abs 3.7 (H) 0.9 - 3.2 [facility] x10(3)/[facility] LABORATORY Monocytes % 8.0 % [facility] Monocyte Abs 0.9 0.3 - 0.9 [facility] x10(3)/[facility] LABORATORY Eosinophils % 2.0 % [facility] Eosinophils Abs 0.2 0.0 - 0.4 [facility] x10(3)/[facility] LABORATORY Basophils % 0.3 % [facility] Basophils Abs 0.0 0.0 - 0.1 [facility] x10(3)/[facility] LABORATORY Immature Gran % 0.30 % [facility] Comment: Immature granulocytes(IG's)percentage an d absolute count will include metamyelocytes, myelocytes, and promyelo cytes. Blood smears from CBCs yielding IG's will be scanned manually for concor dance. If this scan disagrees with the automated IG or if promyelocytes are not ed, a manual differential will be performed. Anaya Gran Abs 0.04 0.00 - 0.04 x10(3)/[facility] LABORATORY Specimen Anatomical Collection Method Collection Time Receive d Time (Source) Location / / Volume Laterality Blood 09/05/2021 4:02 AM 4:17 EST AM EST Resulting Agency Comment Spec In Lab Mirza Robbins DO HEMATOLOGY ORDERABLES Performing Organization Address City/State/[place] [address] (ABNORMAL) Hemogram (09/05/2021 4:02 AM EST) Analysis Performed At Patho logist Time Signature WBC 11.7 (H) 4.0 - 9.5 [facility] x10(3)/[facility] LABORATORY RBC 3.88 (L) 4.00 - [facility] 5.21 [facility] x10(6)/[facility] LABORATORY Hemoglobin 9.0 (L) 11.7 - [facility] 15.5 g/dL [facility] Hematocrit 29.5 (L) 35.7 - [facility] 45.8 % [facility] MCV 76.0 (L) 82.6 - [facility] 94.4 [facility] LABORATORY MCH 23.2 (L) 27.1 - [facility] 32.0 pg [facility] MCHC 30.5 (L) 31.7 - [facility] 35.0 g/dL [facility] Platelets 347 145 - 357 [facility] x10(3)/[facility] LABORATORY RDWSD 55.1 (H) 37.0 - [facility] 46.0 [facility] LABORATORY RDWCV 21.3 (H) 11.5 - [facility] 14.1 % [facility] MPV 9.8 7.6 - 12.9 [facility] LABORATORY nRBC % Auto 0.0 % [facility] nRBC Abs Auto 0.000 0.000 - [facility] 0.000 [facility] x10(3)/[facility] LABORATORY Specimen Anatomical Collection Method Collection Time Receive d Time (Source) Location / / Volume Laterality Blood 09/05/2021 4:02 AM 4:17 EST AM EST Resulting Agency Comment Spec In Lab Mirza Robbins DO HEMATOLOGY ORDERABLES Performing Organization Address City/State/[place] [address] (ABNORMAL) CMP w/fasting Glucose (09/05/2021 4:02 AM EST) P athologist Signature Glucose 224 (H) 65 - 99 [facility] Fasting mg/dL [facility] Comment: ?Fasting* Glucose Interpretive C [...] of Diabetes Mellitus, Position Statement from the [place] [employer]. ??Diabete s Care, Volume 33, Supplement 1, Oct 2009 BUN 25 (H) 8 - 18 mg/dL [facility] Creatinine 0.68 (L) 0.70 - 1.20 mg/dL [facility] Sodium 139 135 - 145 mmol/L [facility] Potassium 4.3 3.5 - 5.0 mmol/L [facility] Comment: Please note: ??Patients with WBC >100,00 0 may have falsely elevated Potassium levels. ??For accurate Potassium quantif ication in these patients send serum separator tube (gold top) for subsequent determinations. ??Contact the Clinical Chemistry Laboratory if there are any qu estions. Chloride 103 98 - 107 mmol/L [facility] CO2 24 22 - 31 mmol/L [facility] Anion Gap 12 5 - 15 mmol/L [facility]OR[facility]ORY Calcium 9.5 8.5 - 10.5 mg/dL [facility] Total Protein 6.7 6.1 - 8.0 g/dL [facility] Albumin 3.5 3.2 - 5.2 g/dL [facility] AST 9 0 - 30 unit/L [facility] ALT 7 0 - 30 unit/L [facility] Alk Phos 89 35 - 105 unit/L [facility] Total Bilirubin <0.2 (L) 0.2 - 1.3 mg/dL [facility] LABOR[facility]ORY Estimated GFR 105 >=60 mL/min/1.73 m?? [facility] Comment: This patient? s estimated [...] Organization Address City/State/[place] [address] Magnesium (09/05/2021 4:02 AM EST) athologist Signature Magnesium 0.79 0.69 - 1.07 [facility] mmol/L [facility] Specimen Anatomical Collection Method Collection Time Receive d Time (Source) Location / / Volume Laterality Blood 09/05/2021 4:02 AM 4:17 EST AM EST Resulting Agency Comment Spec In Lab Tameka Chu MD CHEMISTRY ORDERABLES Performing Organization Address City/State/[place] [address] (ABNORMAL) POCT Glucose (09/04/2021 11:46 PM EST) athologist Signature POC Glucose 214 (H) 65 - 199 [facility] mg/dL [facility] Comment: Supplemental ranges: <140 mg/dL before meals <180 mg/dL all other times of the day Specimen Anatomical Collection Method Collection Time Receive d Time (Source) Location / / Volume Laterality Blood 09/04/2021 11:46 09/04/2021 PM EST 11:46 PM EST Serafin Lam MD POINT OF CARE TEST ORDERABLE S Performing Organization Address City/State/ZIP Code Phon e Number [address] (ABNORMAL) POCT Glucose (09/04/2021 9:01 PM EST) athologist Signature POC Glucose 281 (H) 65 - 199 [facility] mg/dL [facility] Comment: Supplemental ranges: <140 mg/dL before meals <180 mg/dL all other times of the day Specimen Anatomical Collection Method Collection Time Receive d Time (Source) Location / / Volume Laterality Blood 09/04/2021 9:01 PM 9:01 EST PM EST Serafin Lam MD POINT OF CARE TEST ORDERABLE S Performing Organization Address City/State/[place] [address] (ABNORMAL) POCT Glucose (09/04/2021 5:45 PM EST) P athologist Signature POC Glucose 287 (H) 65 - 199 [place] mg/dL [facility] Comment: Supplemental ranges: <140 mg/dL before meals <180 mg/dL all other times of the day Specimen Anatomical Collection Method Collection Time Receive d Time (Source) Location / / Volume Laterality Blood 09/04/2021 5:45 PM 5:45 EST PM EST Serafin Lam MD POINT OF CARE TEST ORDERABLE S Performing Organization Address City/State/[place] [address] (ABNORMAL) POCT Glucose (09/04/2021 4:17 PM EST) P athologist Signature POC Glucose 296 (H) 65 - 199 [facility] mg/dL [facility] Comment: Supplemental ranges: <140 mg/dL before meals <180 mg/dL all other times of the day Specimen Anatomical Collection Method Collection Time Receive d Time (Source) Location / / Volume Laterality Blood 09/04/2021 4:17 PM 4:17 EST PM EST Serafin Lam MD POINT OF CARE TEST ORDERABLE S Performing Organization Address City/State/[place] [address] (ABNORMAL) POCT Glucose (09/04/2021 2:21 PM EST) P athologist Signature POC Glucose 373 (H) 65 - 199 [place] mg/dL [facility] Comment: Supplemental ranges: <140 mg/dL before meals <180 mg/dL all other times of the day Specimen Anatomical Collection Method Collection Time Receive d Time (Source) Location / / Volume Laterality Blood 09/04/2021 2:21 PM 2:21 EST PM EST Serafin Lam MD POINT OF CARE TEST ORDERABLE S Performing Organization Address City/State/[place] [address] (ABNORMAL) POCT Glucose (09/04/2021 11:32 AM EST) P athologist Signature POC Glucose 262 (H) 65 - 199 [facility] mg/dL [facility] Comment: Supplemental ranges: <140 mg/dL before meals <180 mg/dL all other times of the day Specimen Anatomical Collection Method Collection Time Receive d Time (Source) Location / / Volume Laterality Blood 09/04/2021 11:32 09/04/2021 AM EST 11:32 AM EST Serafin Lam MD POINT OF CARE TEST ORDERABLE S Performing Organization Address City/[facility]/[place] [address] POCT Glucose (09/04/2021 10:14 AM EST) athologist Signature POC Glucose 174 65 - 199 [facility] mg/dL [facility] Comment: Supplemental ranges: <140 mg/dL before meals <180 mg/dL all other times of the day Specimen Anatomical Collection Method Collection Time Receive d Time (Source) Location / / Volume Laterality Blood 09/04/2021 10:14 09/04/2021 AM EST 10:14 AM EST Serafin Lam MD POINT OF CARE TEST ORDERABLE S Performing Organization Address City/State/[place] [address] XR Chest One View (09/04/2021 9:40 AM EST) Anatomical Region Laterality Modality Chest N/A Digital Radiography Specimen (Source) Anatomical Location Collection Method / Collectio n Time Received Time / Laterality Volume Impressions 09/04/2021 10:10 AM EST Interval removal of Jones-Tavia catheter. Interval improvement in prominence of persistent [...] who have questions please contact the health morning caregiver that requested your imaging first. ? Electronically signed by: Ramos jaquez MD, [facility] ([phone]), at 09/04/2021 10:10 AM Narrative 09/04/2021 10:10 [...] FINDINGS: See impression. IMPRESSION Interval removal of Jones-Tavia catheter. Interval improvement in prominence of persistent [...] ho have questions please contact the health morning caregiver that requested your imaging first. Electronically signed by: Ramos jaquez MD, [facility] ([phone]), at 09/04/2021 10:10 AM Serafin Lam MD IMG DX ORDERABLES POCT Glucose (09/04/2021 8:03 AM EST) athologist Signature POC Glucose 107 65 - 199 [facility] mg/dL [facility] Comment: Supplemental ranges: <140 mg/dL before meals <180 mg/dL all other times of the day Specimen Anatomical Collection Method Collection Time Receive d Time (Source) Location / / Volume Laterality Blood 09/04/2021 8:03 AM 8:03 EST AM EST Serafin Lam MD POINT OF CARE TEST ORDERABLE S Performing Organization Address City/State/[place] [address] (ABNORMAL) POCT Glucose (09/04/2021 6:02 AM EST) athologist Signature POC Glucose 264 (H) 65 - 199 [place] mg/dL [facility] Comment: Supplemental ranges: <140 mg/dL before meals <180 mg/dL all other times of the day Specimen Anatomical Collection Method Collection Time Receive d Time (Source) Location / / Volume Laterality Blood 09/04/2021 6:02 AM 6:02 EST AM EST Serafin Lam MD POINT OF CARE TEST ORDERABLE S Performing Organization Address City/State/[place] [address] (ABNORMAL) POCT Glucose (09/04/2021 4:02 AM EST) athologist Signature POC Glucose 285 (H) 65 - 199 [place] mg/dL [facility] Comment: Supplemental ranges: <140 mg/dL before meals <180 mg/dL all other times of the day Specimen Anatomical Collection Method Collection Time Receive d Time (Source) Location / / Volume Laterality Blood 09/04/2021 4:02 AM 4:02 EST AM EST Serafin Lam MD POINT OF CARE TEST ORDERABLE S Performing Organization Address City/State/[place] [address] (ABNORMAL) BMP w/fasting Glucose (09/04/2021 2:47 AM EST) athologist Signature Glucose 362 (H) 65 - 99 [facility] Fasting mg/dL [facility] Comment: result rechecked-rg ?Fasting* Glucose [...] of Diabetes Mellitus, Position Statement from the [place] [employer]. ??Diabete s Care, Volume 33, Supplement 1, Oct 2009 BUN 16 8 - 18 mg/dL [facility] Creatinine 0.69 (L) 0.70 - 1.20 mg/dL [facility] Sodium 140 135 - 145 mmol/L [facility] Potassium 4.4 3.5 - 5.0 mmol/L [facility] Comment: Please note: ??Patients with WBC >100,00 0 may have falsely elevated Potassium levels. ??For accurate Potassium quantif ication in these patients send serum separator tube (gold top) for subsequent determinations. ??Contact the Clinical Chemistry Laboratory if there are any qu estions. Chloride 104 98 - 107 mmol/L [facility] CO2 Not Perf - 31 [facility] Comment: Add-on request. Sample too old to perform test. Anion Gap Unable to Calculate 5 - 15 mmol/L [facility] LABORATORY Calcium 8.9 8.5 - 10.5 mg/dL [facility] Estimated GFR 104 >=60 mL/min/1.73 m?? [facility] Comment: This patient? s estimated [...] Organization Address City/State/[place] [address] (ABNORMAL) Differential, Automated (09/04/2021 2:47 AM EST) [facility] gist Method Time Signature Neutrophils % 62.4 % [facility]ORY Neutr Abs (ANC) 5.80 1.70 - [facility] 6.10 [facility] x10(3)/[facility] LABORATORY Lymphocytes % 23.0 % [facility] Lymphocytes Abs 2.1 0.9 - 3.2 [facility] x10(3)/[facility] LABORATORY Monocytes % 6.8 % [facility] Monocyte Abs 0.6 0.3 - 0.9 [facility] x10(3)/[facility] LABORATORY Eosinophils % 7.0 % [facility] Eosinophils Abs 0.6 (H) 0.0 - 0.4 [facility] x10(3)/[facility] LABORATORY Basophils % 0.4 % [facility] Basophils Abs 0.0 0.0 - 0.1 [facility] x10(3)/[facility] LABORATORY Immature Gran % 0.40 % [facility] Comment: Immature granulocytes(IG's)percentage an d absolute count will include metamyelocytes, myelocytes, and promyelo cytes. Blood smears from CBCs yielding IG's will be scanned manually for concor dance. If this scan disagrees with the automated IG or if promyelocytes are not ed, a manual differential will be performed. Anaya Gran Abs 0.04 0.00 - 0.04 x10(3)/[facility] LAB[facility] Specimen Anatomical Collection Method Collection Time Receive d Time (Source) Location / / Volume Laterality Blood 09/04/2021 2:47 AM 2:51 EST AM EST Resulting Agency Comment Spec In Lab Joshuaa Rosendo DO HEMATOLOGY ORDERABLES Performing Organization Address City/State/[place] [address] (ABNORMAL) Hemogram (09/04/2021 2:47 AM EST) Analysis Performed At Patho logist Time Signature WBC 9.3 4.0 - 9.5 [facility] x10(3)/[facility] LABORATORY RBC 4.04 4.00 - [facility] 5.21 [facility] x10(6)/[facility] LABORATORY Hemoglobin 9.4 (L) 11.7 - [facility] 15.5 g/dL [facility] Hematocrit 30.9 (L) 35.7 - [facility] 45.8 % [facility] MCV 76.5 (L) 82.6 - [facility] 94.4 [facility] LABORATORY MCH 23.3 (L) 27.1 - [facility] 32.0 pg [facility] MCHC 30.4 (L) 31.7 - [facility] 35.0 g/dL [facility] Platelets 358 (H) 145 - 357 [facility] x10(3)/[facility] LABORATORY RDWSD 54.8 (H) 37.0 - [facility] 46.0 [facility] RDWCV 20.7 (H) 11.5 - [facility] 14.1 % [facility]ORATORY MPV 9.7 7.6 - 12.9 [facility] LABORATORY nRBC % Auto 0.0 % [facility] LABORATORY nRBC Abs Auto 0.000 0.000 - [facility] 0.000 [facility] x10(3)/[facility] LABORATORY Specimen Anatomical Collection Method Collection Time Receive d Time (Source) Location / / Volume Laterality Blood 09/04/2021 2:47 AM 1 2:51 EST AM EST Resulting Agency Comment Spec In Lab Mirza Robbins HEMATOLOGY ORDERABLES Performing Organization Address City/[facility]/ZIP Code Phon e Number [address] Magnesium (09/04/2021 2:47 AM EST) athologist Signature Magnesium 0.89 0.69 - 1.07 [facility] mmol/L [facility] Specimen Anatomical Collection Method Collection Time Receive d Time (Source) Location / / Volume Laterality Blood 09/04/2021 2:47 AM 1 2:51 EST AM EST Resulting Agency Comment Spec In Lab Tameka Chu MD CHEMISTRY ORDERABLES Performing Organization Address City/[facility]/[place] [address] (ABNORMAL) POCT Glucose (09/04/2021 2:08 AM EST) athologist Signature POC Glucose 356 (H) 65 - 199 [facility] mg/dL [facility] Comment: Supplemental ranges: <140 mg/dL before meals <180 mg/dL all other times of the day Specimen Anatomical Collection Method Collection Time Receive d Time (Source) Location / / Volume Laterality Blood 09/04/2021 2:08 AM 1 2:08 EST AM EST Serafin Lam MD POINT OF CARE TEST ORDERABLE S Performing Organization Address City/[facility]/ZIP Code Phon e Number [address] (ABNORMAL) POCT Glucose (09/04/2021 12:12 AM EST) athologist Signature POC Glucose 326 (H) 65 - 199 [facility] mg/dL [facility] Comment: Supplemental ranges: <140 mg/dL before meals <180 mg/dL all other times of the day Specimen Anatomical Collection Method Collection Time Receive d Time (Source) Location / / Volume Laterality Blood 09/04/2021 12:12 09/04/2021 AM EST 12:12 AM EST Serafin Lam MD POINT OF CARE TEST ORDERABLE S Performing Organization Address City/[facility]/[place] [address] (ABNORMAL) Hemoglobin and Hematocrit, blood (09/03/2021 8:36 PM EST) P athologist Signature Hemoglobin 9.5 (L) 11.7 - [facility] 15.5 g/dL [facility] Hematocrit 30.6 (L) 35.7 - [facility] 45.8 % [facility] Specimen Anatomical Collection Method Collection Time Receive d Time (Source) Location / / Volume Laterality Blood 09/03/2021 8:36 PM 9:08 EST PM EST Resulting Agency Comment Spec In Lab Serafin Lam MD HEMATOLOGY ORDERABLES Performing Organization Address City/[facility]/[place] [address] POCT Glucose (09/03/2021 8:21 PM EST) P athologist Signature POC Glucose 134 65 - 199 [facility] mg/dL [facility] Comment: Supplemental ranges: <140 mg/dL before meals <180 mg/dL all other times of the day Specimen Anatomical Collection Method Collection Time Receive d Time (Source) Location / / Volume Laterality Blood 09/03/2021 8:21 PM 8:21 EST PM EST Serafin Lam MD POINT OF CARE TEST ORDERABLE S Performing Organization Address City/[facility]/[place] [address] EKG 12 Lead (09/03/2021 7:27 PM EST) Component Value Ref Range Test Analysis Performed Pathologis t Method Time At Signature Ventricular rate 98 BPM MUSE SYSTEM Atrial Rate 98 BPM MUSE SYSTEM P-R Interval 146 ms MUSE SYSTEM QRS Duration 94 ms MUSE SYSTEM Q-T Interval 380 ms MUSE SYSTEM QTC Calculated 485 ms MUSE SYSTEM (Bezet) Calculated P Advance 35 degrees MUSE SYSTEM Calculated R Advance 38 degrees MUSE SYSTEM Calculated T Advance 80 degrees MUSE SYSTEM INTERPRETATION Normal sinus rhythm MUSE SYSTEM Anterolateral infarct (cited on or before 02-SEP-2021) Abnormal ECG When compared with ECG of 02-SEP-2021 17:26, No significant change was found Confirmed by MD Carole, Serafin ([id number]) on 09/04/2021 10:4 7:29 AM Specimen Anatomical [...] Laterality Volume Narrative 09/07/2021 5:44 PM EST ?[facility] ? Cardiac Cathete rization/Intervention Report ? Patient Name: Sho, Aracelis ? Procedure Date: 09/03/2021 ? A #: [id number] ? Primary Physician: Rafi Barrett ? Case #: [id number] ? File Name: [id number] ? Catheterization Order Number: [id number] ? [facility] ? Final Report [place], [place] ? Patient Name: ? Aracelis Sho ? ID#: ?[id number] ? : ?1975 ? Procedure Date: ? Santi 3, 202 1 ? Case #: ? [id number] ? Room: ? 5 ? Case Physician: ? Rafi Barrett M.D. ?Start: ?16:41 ?Fellow: ? Humza Rodarte G acad, M.D. ?Admission: ??09/02/2021 ? Discharge: [...] was designated as ASA Class IV. ?[facility] [place] [facility] clinical frailty scale is 3: Managing Well. ? Diagnostic Tests: ?Prior Coronary Angiography: ? LV ejection fraction wit hin 6 months is 60%. ?Electrocardiography: ? EKG was assessed by ECG. EKG was Abnormal. EKG showed T-wave ? inversions. ?Medications Prior to Procedure: ? Aspirin and Statin. ? Indications for Diagnostic Cath: ?The priority of the diagnostic procedure was Urgent. The indication for ?the labor delivery rn visit is ACS great er than 24 [...] insertion was accomplished through a 6 Fr. Randyari Right ? 1.5 guide. ??Th e lesion [...] dose administered prior to arrival in the labor delivery rn. ?Recommended anti-platelet/anti- thrombotic regimen: ?Continue aspirin 81 mg daily. ?Continue clopidogrel 75 mg leighann y. ?These recommendations are made at the time of the intervention. Patient ?and provider preferences or a c hanging clinical situation may require ?modification of this regimen. C onsult [facility] Interventional Cardiology for ?questions. ?The [...] device, ABG and I ABP removal in labor delivery rn. ? Rafi Barrett M.D. ? Report Finalized: 09/07/2021 ??17:39 ? Report Last Ammended: 10/14/2021 ??10:24 ? Procedure Note Rafi Barrett MD - 10/14/2021Formatt ing of this note might be different from the original. [facility] Cardiac Catheterization/Intervention Re port Patient Name: Sho December Procedure Date: 09/03/2021 A #: [id number] Primary Physician: Rafi Barrett Case #: [id number] File Name: [id number] Catheterization Order Number: [id number] [facility] Athlete Marketing Agent [facility] Final Report [place], [place] Patient Name: Aracelis Monique ID#: [id number] : 1975 Procedure Date: September 03, 2021 [...] was designated as ASA Class IV. The [facility] clinical frailty scale is 3: M anaging Well. Diagnostic Tests: Prior Coronary Angiography: LV ejection fraction within 6 months is 60%. Electrocardiography: EKG was assessed by ECG. EKG was Abnorm al. EKG showed T-wave inversions. Medications Prior to Procedure: Aspirin and Statin. Indications for Diagnostic Cath: The priority of the diagnostic procedur e was Urgent. The indication for the labor delivery rn visit is ACS greater than 24 hrs. Chest pain symptom assessment was: Typical Angina. This pa tient had cardiovascular instability due to persistent ischemic symptoms. Ventricular support was supplied with mechanical support with I ntra-aortic balloon pump (IABP) In place at start of procedure. Technique: A 6 SLFr sheath was inserted in the rig radial artery utilizing the Seldinger technique. The [...] administered prior t o arrival in the labor delivery rn. Recommended anti-platelet/anti-thrombot ic regimen: Continue aspirin 81 mg daily. Continue clopidogrel 75 mg daily. These recommendations are made at the t yolande of the intervention. Patient and provider preferences or a changing clinical situation may require modification of this regimen. Consult [facility] Interventional Cardiology for questions. [...] device, ABG and IABP r emoval in labor delivery rn. Rafi Barrett M.D. Report Finalized: 09/07/2021 17:39 Report Last Ammended: 10/14/2021 10:24 Rafi Barrett MD CARDIAC CATH ORDERABLES (ABNORMAL) Point of Care Blood Gas Historical (09/03/2021 5:50 PM EST) [facility] [place] Method Time Signature POC pH 7.44 7.35 - [facility] 7.45 [facility] POC PCO2 41 35 - 45 [facility] acute hospital LABORATORY POC PO2 68 (L) 85 - 104 [facility] acute hospital LABORATORY POC Base Excess 4.0 (H) -3.0 - 3.0 [facility] K mmol/L [facility] POC HCO3 27.8 (H) 20.0 - [facility] 26.0 [facility] mmol/[facility] LABOR[facility] POC Sodium 137 135 - 145 [facility] mmol/L [facility] POC Potassium 4.1 3.5 - 5.0 [facility] mmol/L [facility] POC Hematocrit 28.0 (L) 34.0 - [facility] 45.0 % [facility] POC Calc Hgb 9.5 (L) 11.2 - [facility] 15.7 g/dL [facility] Comment: The calculation of hemoglobin f rom hematocrit assumes a normal MCHC. POC Bgas Loc CC LAB [facility] Specimen Anatomical Collection Method Collection Time Receive d Time (Source) Location / / Volume Laterality Blood 09/03/2021 5:50 PM 9:00 EST AM EST Serafin Lam MD CHEMISTRY ORDERABLES Performing Organization Address City/State/ZIP Code Phon e Number [address] POCT Glucose (09/03/2021 12:09 PM EST) athologist Signature POC Glucose 112 65 - 199 [facility] mg/dL [facility] Comment: Supplemental ranges: <140 mg/dL before meals <180 mg/dL all other times of the day Specimen Anatomical Collection Method Collection Time Receive d Time (Source) Location / / Volume Laterality Blood 09/03/2021 12:09 09/03/2021 PM EST 12:09 PM EST Serafin Lam MD POINT OF CARE TEST ORDERABLE S Performing Organization Address City/State/[place] [address] Heparin (unfractionated) Level (09/03/2021 10:17 AM EST) P athologist Signature Heparin UFH 0.26 IU/mL [facility] LABORATORY Comment: Heparin (anti-Xa) levels [...] Organization Address City/State/[place] [address] ECHOCARDIOGRAM LMTD W/O CON W LMTD SPEC DOPP, COLOR DOPP (09/03/2021 9:34 AM EST) athologist Signature EF 37 [facility] Anatomical Region Laterality Modality Other Specimen (Source) Anatomical Location Collection Method / Collectio n Time Received Time / Laterality Volume 09/03/2021 Narrative 09/03/2021 10:34 AM EST Procedure: ?Transthoracic Echocardiogram Patient: ?SHO ARACELIS ?(Age): 1975(46y) Med Rec#: ? [id number] ?Sex: ?F ? Site Loc: ? [facility] ?Ht / Wt: ??163(cm)/78(kg) Pt. Loc: ?CCU ? BSA: ?1.84 Study Date: ?? 09/03/2021 ?Pt. Type: Inpatient Tape: ? Referring: Tameka Neal Referring: JOSUÉ Reading: Carrie Salamanca ([id number]) Radiation Engineer: Anca Darling Diagnosis: *Non-ST elevation (NSTEMI) myocardial [...] 33:25 Images reviewed and interpretation verif ied [facility] Procedure Note Carrie Salamanca MD - 09/03/2021Formatti ng of this note might be different from the original. Procedure: Transthoracic Echocardiogram Patient: SHO DECEMBER (Age): 1975 (46y) Med Rec#: [id number] Sex: F Site Loc: [facility] Ht / Wt: 163(cm)/78(kg) Pt. Loc: CCU BSA: 1.84 Study Date: 09/03/2021 Pt. Type: Inpatie nt Tape: Referring: Tameka Neal Referring: JOSUÉ Reading: Carrie Salamanca ([id number]) Radiation Engineer: Anca Darling Diagnosis: *Non-ST elevation (NSTEMI) myocardial [...] MD 09/03/2021 10:33:25 Images reviewed and interpretation [facility] Tameka Chu MD ECHO ORDERABLES POCT Glucose (09/03/2021 9:14 AM EST) athologist Signature POC Glucose 108 65 - 199 [facility] mg/dL [facility] Comment: Supplemental ranges: <140 mg/dL before meals <180 mg/dL all other times of the day Specimen Anatomical Collection Method Collection Time Receive d Time (Source) Location / / Volume Laterality Blood 09/03/2021 9:14 AM 9:14 EST AM EST Tameka Chu MD POINT OF CARE TEST ORDERAB LES Performing Organization Address City/State/ZIP Code Phon e Number [place] [id number] POCT Glucose (09/03/2021 7:04 AM EST) athologist Signature POC Glucose 102 65 - 199 [facility] mg/dL [facility] Comment: Supplemental ranges: <140 mg/dL before meals <180 mg/dL all other times of the day Specimen Anatomical Collection Method Collection Time Receive d Time (Source) Location / / Volume Laterality Blood 09/03/2021 7:04 AM 7:04 EST AM EST Tameka Chu MD POINT OF CARE TEST ORDERAB LES Performing Organization Address City/State/[place] [address] (ABNORMAL) Troponin (09/03/2021 6:20 AM EST) athologist Signature Troponin-T 0.07 (H) 0.00 - [facility] 0.00 ng/mL [facility] Comment: The 99th percentile for [...] additional sample may be indicated. Reference: Third Everetts Definition of Myocardial Infarction. Journal of the [place] [employer] 2012;60:1581-98 Specimen Anatomical Collection Method Collection Time Receive d Time (Source) Location / / Volume Laterality Blood 09/03/2021 6:20 AM 6:27 EST AM EST Resulting Agency Comment Spec In Lab Yumi Garcia MD CHEMISTRY ORDERABLES Performing Organization Address City/[facility]/ZIP Code Phon e Number [address] Potassium (09/03/2021 4:00 AM EST) athologist Signature Potassium 4.3 3.5 - 5.0 [facility] mmol/L [facility] Comment: Please note: ??Patients with [...] Chu MD CHEMISTRY ORDERABLES Performing Organization Address City/[facility]/[place] [address] Heparin (unfractionated) Level (09/03/2021 4:00 AM EST) athologist Signature Heparin UFH 0.49 IU/mL [facility] LABORATORY Comment: Heparin (anti-Xa) levels [...] Organization Address City/State/[place] [address] (ABNORMAL) Differential, Automated (09/03/2021 12:45 AM EST) [facility] [place] Method Time Signature Neutrophils % 61.6 % [facility] Neutr Abs (ANC) 7.46 (H) 1.70 - [facility] 6.10 [facility] x10(3)/[facility] LABORATORY Lymphocytes % 22.0 % [facility] Lymphocytes Abs 2.7 0.9 - 3.2 [facility] x10(3)/[facility] LABORATORY Monocytes % 7.9 % [facility] Monocyte Abs 1.0 (H) 0.3 - 0.9 [facility] x10(3)/[facility] LABORATORY Eosinophils % 7.7 % [facility] Eosinophils Abs 0.9 (H) 0.0 - 0.4 [facility] x10(3)/[facility] LABORATORY Basophils % 0.3 % [facility] Basophils Abs 0.0 0.0 - 0.1 [facility] x10(3)/[facility] LABORATORY Immature Gran % 0.50 % [facility] Comment: Immature granulocytes(IG's)percentage an d absolute count will include metamyelocytes, myelocytes, and promyelo cytes. Blood smears from CBCs yielding IG's will be scanned manually for concor dance. If this scan disagrees with the automated IG or if promyelocytes are not ed, a manual differential will be performed. Anaya Gran Abs 0.06 (H) 0.00 - 0.04 x10(3)/[facility] LABORATORY Specimen Anatomical Collection Method Collection Time Receive d Time (Source) Location / / Volume Laterality Blood 09/03/2021 12:45 09/03/2021 AM EST 12:56 AM EST Resulting Agency Comment Spec In Lab Mirza Robbins DO HEMATOLOGY ORDERABLES Performing Organization Address City/State/ZIP [place] [address] (ABNORMAL) Hemogram (09/03/2021 12:45 AM EST) Analysis Performed At Patho logist Time Signature WBC 12.1 (H) 4.0 - 9.5 [facility] x10(3)/[facility] LABORATORY RBC 4.17 4.00 - [facility] 5.21 [facility] x10(6)/[facility] LABORATORY Hemoglobin 9.7 (L) 11.7 - [facility] 15.5 g/dL [facility] Hematocrit 31.1 (L) 35.7 - [facility] 45.8 % [facility] MCV 74.6 (L) 82.6 - [facility] 94.4 [facility] LABORATORY MCH 23.3 (L) 27.1 - [facility] 32.0 pg [facility] MCHC 31.2 (L) 31.7 - [facility] 35.0 g/dL [facility] Platelets 432 (H) 145 - 357 [facility] x10(3)/[facility] LABORATORY RDWSD 53.1 (H) 37.0 - [facility] 46.0 [facility] LABORATORY RDWCV 20.0 (H) 11.5 - [facility] 14.1 % [facility] MPV 9.4 7.6 - 12.9 [facility] LABORATORY nRBC % Auto 0.0 % [facility] LAB[facility]ORY nRBC Abs Auto 0.000 0.000 - [facility] 0.000 [facility] x10(3)/[facility] LABORATORY Specimen Anatomical Collection Method Collection Time Receive d Time (Source) Location / / Volume Laterality Blood 09/03/2021 12:45 09/03/2021 AM EST 12:56 AM EST Resulting Agency Comment Spec In Lab Mirza Robbins DO HEMATOLOGY ORDERABLES Performing Organization Address City/State/[place] [address] (ABNORMAL) CMP w/fasting Glucose (09/03/2021 12:45 AM EST) P athologist Signature Glucose 126 (H) 65 - 99 [facility] Fasting mg/dL [facility] Comment: ?Fasting* Glucose Interpretive C [...] of Diabetes Mellitus, Position Statement from the [place]. ??Diabete s Care, Volume 33, Supplement 1, Oct 2009 BUN 12 8 - 18 mg/dL [facility] Creatinine 0.71 0.70 - 1.20 mg/dL [facility] Sodium 141 135 - 145 mmol/L [facility] Potassium 3.8 3.5 - 5.0 mmol/L [facility] Comment: Please note: ??Patients with WBC >100,00 0 may have falsely elevated Potassium levels. ??For accurate Potassium quantif ication in these patients send serum separator tube (gold top) for subsequent determinations. ??Contact the Clinical Chemistry Laboratory if there are any qu estions. Chloride 100 98 - 107 mmol/L [facility] CO2 28 22 - 31 mmol/L [facility] Anion Gap 13 5 - 15 mmol/L [facility] Calcium 8.6 8.5 - 10.5 mg/dL [facility] Total Protein 6.8 6.1 - 8.0 g/dL [facility] Albumin 3.7 3.2 - 5.2 g/dL [facility] AST 11 0 - 30 unit/L [facility] ALT 8 0 - 30 unit/L [facility] Alk Phos 84 35 - 105 unit/L [facility] Total Bilirubin 0.3 0.2 - 1.3 mg/dL [facility] LABOR[facility] Estimated GFR 102 >=60 mL/min/1.73 m?? [facility] Comment: This patient? s estimated [...] Organization Address City/State/ZIP Code Phon e Number [address] (ABNORMAL) Magnesium (09/03/2021 12:45 AM EST) P athologist Signature Magnesium 1.16 (H) 0.69 - 1.07 [facility]/L [facility] Comment: result rechecked-doc Specimen Anatomical Collection Method Collection Time Receive d Time (Source) Location / / Volume Laterality Blood 09/03/2021 12:45 09/03/2021 AM EST 12:56 AM EST Resulting Agency Comment Spec In Lab Tameka Chu MD CHEMISTRY ORDERABLES Performing Organization Address City/State/ZIP Code Phon e Number [address] Potassium (09/02/2021 10:05 PM EST) P athologist Signature Potassium 3.9 3.5 - 5.0 [facility] mmol/[facility] LABORATORY Comment: Please note: ??Patients [...] Chu MD CHEMISTRY ORDERABLES Performing Organization Address City/[facility]/[place] [address] Heparin (unfractionated) Level (09/02/2021 10:05 PM EST) athologist Signature Heparin UFH 0.72 IU/mL [facility] LABORATORY Comment: Heparin (anti-Xa) levels [...] Gant MD HEMATOLOGY ORDERABLES Performing Organization Address City/[facility]/[place] [address] POCT Glucose (09/02/2021 8:37 PM EST) athologist Signature POC Glucose 104 65 - 199 [facility] mg/dL [facility] Comment: Supplemental ranges: <140 mg/dL before meals <180 mg/dL all other times of the day Specimen Anatomical Collection Method Collection Time Receive d Time (Source) Location / / Volume Laterality Blood 09/02/2021 8:37 PM 8:37 EST PM EST Tameka Chu MD POINT OF CARE TEST ORDERAB LES Performing Organization Address City/State/[place] [address] (ABNORMAL) BLOOD GAS 2 ARTERIAL (09/02/2021 5:45 PM EST) Analysis Performed At Patho logist Time Signature pH Art 7.43 7.35 - [facility] 7.45 [facility] pCO2 Art 39 35 - 45 General acute hospital LABORATORY pO2 Art 89 85 - 104 General acute hospital LABORATORY HCO3 Art 24.9 20.0 - [facility] 26.0 [facility] mmol/L [facility] LABORATORY BE Art 0.6 -3.0 - 3.0 [facility] mmol/L [facility] Hgb Blood Gas 10.0 (L) 11.7 - [facility] 15.5 g/dL [facility] O2HB Art 95.5 94.0 - [facility] 97.0 % [facility] COHB Art 0.4 % [facility] Comment: Nonsmokers: 0.5-1.5% COHB Smokers: Variable, but usually less than 10% Toxic: 20-30% COHB Lethal: Greater than 60% COHB METHB Art 0.7 <=1.5 % [facility] Na Whole Blood 137 135 - 145 mmol/L [facility] K Whole Blood 3.5 3.5 - 5.0 mmol/L [facility] Comment: Please note: Patients with WBC >100,000 may have falsely elevated Potassium levels. Contact the Clinical Chemistry L aboratory if there are any questions. ICa Whole Blood 1.03 (L) 1.15 - 1.33 mmol/L [facility] Comment: Note: ??Total bilirubin higher than 20 m g/dL may lead to falsely low ionized calcium. CL Whole Blood 103 98 - 107 mmol/L [facility] Gluc Whole Bld 117 65 - 199 mg/dL [facility] LABORATORY Comment: Diabetes: >=200 mg/dL plus symp toms. Lactate WB 1.2 0.5 - 2.2 mmol/L [facility] LABORATORY FIO2 Art 40 % [facility] PF Ratio Art 222 [facility]ORY Specimen Anatomical Collection Method Collection Time Receive d Time (Source) Location / / Volume Laterality Blood 09/02/2021 5:45 PM 5:45 EST PM EST Tameka Chu MD CHEMISTRY ORDERABLES Performing Organization Address City/State/[place] [address] XR Chest One View (09/02/2021 5:45 PM EST) Anatomical Region Laterality Modality Chest N/A Digital Radiography Specimen (Source) Anatomical Location Collection Method / Collectio n Time Received Time / Laterality Volume Impressions 09/02/2021 7:28 PM EST Pulmonary vascular congestion. Jones-Tavia catheter tip at the right main pulmonary artery. Radiopaque marker of IABP catheter at th e aortic knob. Thank you for letting us participate in the care of this patient. ??If you are a health care provider and have any questi ons regarding this report, please contact the number below. ??For patients who have questions please contact the health morning caregiver that requested your imaging first. ? Narrative 09/02/2021 7:28 PM EST EXAMINATION: XR CHEST ONE VIEW CLINICAL HISTORY: sob TECHNIQUE: 1 view of the chest COMPARISON: March 11, 2011 FINDINGS: Left internal jugular central venous she ath with Jones-Tavia catheter at the right main pulmonary artery. [...] internal jugular central venous she ath with Jones-Tavia catheter at the right main pulmonary artery. IABP in place with radiopaque marker at the apical edge of the aortic knob. No mass. No consolidation. Bronchovascul ar haziness. Mild pulmonary vascular redistribution. No pleural effusion. No pneumothorax. Cardiac, mediastinal hilar contours are within normal limits. No ac devante bony fractures. IMPRESSION Pulmonary vascular congestion. Jones-Tavia catheter tip at the right main pulmonary artery. Radiopaque marker of IABP catheter at th e aortic knob. Thank you for letting us participate in the care of this patient. If you are a health care provider and have any questi ons regarding this report, please contact the number below. For patients w ho have questions please contact the health morning caregiver that requested your imaging first. Jay Jay Gant MD IMG DX ORDERABLES Type and Screen Validity (09/02/2021 5:40 PM EST) [facility] Method Time Signature T&S only valid [facility] at [facility] Comment: This Type and Screen result is only valid at the [facility] Hospital Specimen Anatomical Collection Method Collection Time Receive d Time (Source) Location / / Volume Laterality Blood 09/02/2021 5:40 PM 6:36 EST PM EST Resulting Agency Comment Spec In Lab Mirza Robbins DO BLOOD BANK ORDERABLES Performing Organization Address City/State/[place] [address] Scan, Peripheral Blood (09/02/2021 5:40 PM EST) [facility] Signature Plat Estimate Increased [facility] RBC Morphology Abnormal [facility] Microcytes 1-5 /HPF [facility] Specimen Anatomical Collection Method Collection Time Receive d Time (Source) Location / / Volume Laterality Blood 09/02/2021 5:40 PM 6:29 EST PM EST Resulting Agency Comment Spec In Lab Yumi Garcia MD HEMATOLOGY ORDERABLES Performing Organization Address City/[facility]/ZIP Code Phon e Number [address] ABORH Recheck Status (09/02/2021 5:40 PM EST) [facility] Signature ABORH Recheck Order Placed [facility] LABORATORY ABORH Type Complete [facility] LABORATORY Specimen Anatomical Collection Method Collection Time Receive d Time (Source) Location / / Volume Laterality Blood 09/02/2021 5:40 PM 1 6:36 EST PM EST Resulting Agency Comment Spec In Lab Mirza Robbins DO BLOOD BANK ORDERABLES Performing Organization Address City/[facility]/ZIP Code Phon e Number [address] Blue Tube HOLD (09/02/2021 5:40 PM EST) P athologist Signature Blue Hold Sample in [facility] LABORATORY Specimen Anatomical Collection Method Collection Time Receive d Time (Source) Location / / Volume Laterality Blood Venous Draw / 09/02/2021 5:40 PM 09/02/20 21 6:29 Unknown EST PM EST Yumi Garcia MD HEMATOLOGY ORDERABLES Performing Organization Address City/[facility]/[place] [address] Antibody screen (09/02/2021 5:40 PM EST) [facility] Ab Screen Negative [facility] LABORATORY Expires at 09/05/2021 [place] [id number] on: [facility] Specimen Anatomical Collection Method Collection Time Receive d Time (Source) Location / / Volume Laterality Blood 09/02/2021 5:40 PM 1 6:36 EST PM EST Resulting Agency Comment Spec In Lab Mirza Robbins DO BLOOD BANK ORDERABLES Performing Organization Address City/[facility]/[place] [address] ABO/Rh Typing (09/02/2021 5:40 PM EST) athologist Signature ABORh Type O Pos [facility] Specimen Anatomical Collection Method Collection Time Receive d Time (Source) Location / / Volume Laterality Blood 09/02/2021 5:40 PM 1 6:36 EST PM EST Resulting Agency Comment Spec In Lab Mirza Robbins DO BLOOD BANK ORDERABLES Performing Organization Address City/[facility]/[place] [address] (ABNORMAL) Magnesium (09/02/2021 5:40 PM EST) athologist Signature Magnesium 0.65 (L) 0.69 - 1.07 [facility] mmol/L [facility] Specimen Anatomical Collection Method Collection Time Receive d Time (Source) Location / / Volume Laterality Blood 09/02/2021 5:40 PM 1 6:28 EST PM EST Resulting Agency Comment Spec In Lab Tameka Chu MD CHEMISTRY ORDERABLES Performing Organization Address City/[facility]/[place] [address] (ABNORMAL) BMP w/fasting Glucose (09/02/2021 5:40 PM EST) P athologist Signature Glucose 117 (H) 65 - 99 [facility] Fasting mg/dL [facility] Comment: ?Fasting* Glucose Interpretive C [...] of Diabetes Mellitus, Position Statement from the [place]. ??Diabete s Care, Volume 33, Supplement 1, Oct 2009 BUN 12 8 - 18 mg/dL [facility] Creatinine 0.63 (L) 0.70 - 1.20 mg/dL [facility] Sodium 140 135 - 145 mmol/L [facility] Potassium 3.9 3.5 - 5.0 mmol/L [facility] Comment: Please note: ??Patients with WBC >100,00 0 may have falsely elevated Potassium levels. ??For accurate Potassium quantif ication in these patients send serum separator tube (gold top) for subsequent determinations. ??Contact the Clinical Chemistry Laboratory if there are any qu estions. Chloride 102 98 - 107 mmol/L [facility] CO2 26 22 - 31 mmol/L [facility] Anion Gap 12 5 - 15 mmol/L [facility] Calcium 8.5 8.5 - 10.5 mg/dL [facility] Estimated GFR 108 >=60 mL/min/1.73 m?? [facility] Comment: This patient? s estimated [...] Chu MD CHEMISTRY ORDERABLES Performing Organization Address City/[facility]/ZIP Code Phon e Number [address] Vitamin B12 (09/02/2021 5:40 PM EST) athologist Signature Vitamin B-12 747 232 - 1,245 [facility] pg/mL [facility] Specimen Anatomical Collection Method Collection Time Receive d Time (Source) Location / / Volume Laterality Blood 09/02/2021 5:40 PM 6:29 EST PM EST Resulting Agency Comment Spec In Lab Yumi Garcia MD CHEMISTRY ORDERABLES Performing Organization Address City/[facility]/[place] [address] TSH (09/02/2021 5:40 PM EST) athologist Signature TSH 2.32 0.27 - 4.20 [facility] mcIU/mL [facility] Comment: Reference Interval (mcIU/mL): Females: ??First Trimester: 0.23-3.88 ??Second Trimester: 0.22-3.90 ??Third Trimester: 0.44-4.66 Specimen Anatomical Collection Method Collection Time Receive d Time (Source) Location / / Volume Laterality Blood 09/02/2021 5:40 PM 6:28 EST PM EST Resulting Agency Comment Spec In Lab Yumi Garcia MD CHEMISTRY ORDERABLES Performing Organization Address City/[facility]/ZIP Code Phon e Number [address] (ABNORMAL) Iron and TIBC (09/02/2021 5:40 PM EST) athologist Signature Iron 33 30 - 150 [facility] [place] mcg/dL [facility] TIBC 311 250 - 450 [facility] mcg/dL [facility] Iron Saturation 11 (L) 20 - 50 % [facility] Specimen Anatomical Collection Method Collection Time Receive d Time (Source) Location / / Volume Laterality Blood 09/02/2021 5:40 PM 6:28 EST PM EST Resulting Agency Comment Spec In Lab Yumi Garcia MD CHEMISTRY ORDERABLES Performing Organization Address City/[facility]/[place] [address] (ABNORMAL) Ferritin (09/02/2021 5:40 PM EST) athologist [facility] Ferritin 207 (H) 15 - 150 [facility] ng/mL [facility] Comment: Pediatric reference ranges not verified at [facility], interpret with caution. Reference ranges for females greater chris n 50 years of age approach values for men, i.e., 30-400 ng/mL. Specimen Anatomical Collection Method Collection Time Receive d Time (Source) Location / / Volume Laterality Blood 09/02/2021 5:40 PM 6:29 EST PM EST Resulting Agency Comment Spec In Lab Yumi Garcia MD CHEMISTRY ORDERABLES Performing Organization Address City/[facility]/[place] [address] (ABNORMAL) Comprehensive metabolic panel (non-fasting) (09/02/2021 5:40 PM EST) athologist [facility] Glucose Lvl 117 65 - 199 [facility] mg/dL [facility] Comment: Diabetes: >=200 mg/dL plus symp toms BUN 12 8 - 18 mg/dL [facility] Creatinine 0.63 (L) 0.70 - 1.20 mg/dL [facility] Sodium 140 135 - 145 mmol/L [facility] Potassium 3.9 3.5 - 5.0 mmol/L [facility] Comment: Please note: ??Patients with WBC >100,00 0 may have falsely elevated Potassium levels. ??For accurate Potassium quantif ication in these patients send serum separator tube (gold top) for subsequent determinations. ??Contact the Clinical Chemistry Laboratory if there are any qu estions. Chloride 102 98 - 107 mmol/L [facility] CO2 26 22 - 31 mmol/L [facility] Anion Gap 12 5 - 15 mmol/L [facility] Calcium 8.5 8.5 - 10.5 mg/dL [facility] Total Protein 6.6 6.1 - 8.0 g/dL [facility] Albumin 3.7 3.2 - 5.2 g/dL [facility] AST 12 0 - 30 unit/L [facility] ALT 12 0 - 30 unit/L [facility] Alk Phos 82 35 - 105 unit/L [facility] Total Bilirubin 0.2 0.2 - 1.3 mg/dL [facility] LABORATORY Estimated GFR 108 >=60 mL/min/1.73 m?? [facility] Comment: This patient? s estimated [...] Organization Address City/State/[place] [address] (ABNORMAL) Hemogram (09/02/2021 5:40 PM EST) Analysis Performed At Patho logist Time Signature WBC 11.6 (H) 4.0 - 9.5 [facility] x10(3)/[facility] LABORATORY RBC 3.98 (L) 4.00 - [place] [place] 5.21 [facility] x10(6)/[facility] LABORATORY Hemoglobin 9.3 (L) 11.7 - [facility] 15.5 g/dL [facility] Hematocrit 29.7 (L) 35.7 - [facility] 45.8 % [facility] MCV 74.6 (L) 82.6 - [facility] 94.4 [facility] LABORATORY MCH 23.4 (L) 27.1 - [facility] 32.0 pg [facility] MCHC 31.3 (L) 31.7 - [facility] 35.0 g/dL [facility] Platelets 428 (H) 145 - 357 [facility] x10(3)/[facility] LABORATORY RDWSD 53.4 (H) 37.0 - [facility] 46.0 [facility] LABORATORY RDWCV 20.1 (H) 11.5 - [facility] 14.1 % [facility] LABORATORY MPV 9.3 7.6 - 12.9 [facility] LABORATORY nRBC % Auto 0.0 % [facility] LABORATORY nRBC Abs Auto 0.000 0.000 - [facility] 0.000 [facility] x10(3)/[facility] LABORATORY Specimen Anatomical Collection Method Collection Time Receive d Time (Source) Location / / Volume Laterality Blood 09/02/2021 5:40 PM 6:29 EST PM EST Resulting Agency Comment Spec In Lab Yumi Garcia MD HEMATOLOGY ORDERABLES Performing Organization Address City/State/[place] [address] EKG 12 Lead (09/02/2021 5:26 PM EST) Component Value Ref Range Test Analysis Performed Pathologis t Method Time At Signature Ventricular rate 98 BPM MUSE SYSTEM Atrial Rate 98 BPM MUSE SYSTEM P-R Interval 134 ms MUSE SYSTEM QRS Duration 94 ms MUSE SYSTEM Q-T Interval 390 ms MUSE SYSTEM QTC Calculated 497 ms MUSE SYSTEM (Bezet) Calculated P Advance 19 degrees MUSE SYSTEM Calculated R Advance 63 degrees MUSE SYSTEM Calculated T Advance 78 degrees MUSE SYSTEM INTERPRETATION Normal sinus [...] Laterality Volume Narrative 09/02/2021 11:24 PM EST ?[facility] ? Cardiac Cathete rization/Intervention Report ? Patient Name: Sho, Aracelis ? Procedure Date: 09/02/2021 ? A #: [id number] ? Primary Physician: Rafi Barrett ? Case #: [id number] ? File Name: [id number] ? Catheterization Order Number: [id number] ? Darryanoutyulia-Sanchez [facility] ? Final Report [place], [place] ? Patient Name: ? Aracelis Sho ? ID#: ?[id number] ? : ?1975 ? Procedure Date: ? [...] procedure was Urgent. The indication for ?the labor delivery rn visit is ACS less than or equal [...] flow was normal and was via [place] vessel. ? The mid segment of the [...] d the left heart catheterization, ?coronary angiography, Jones (flow d irected cath) insertion, IABP insertion ?in labor delivery rn and oximetry. ? Rafi Barrett M.D. ? Report Finalized: 09/02/2021 ??23:17 ? Report Last Ammended: 09/14/2021 ??11:53 ? Procedure Note Rafi Barrett MD - 09/14/2021Formatt ing of this note might be different from the original. [facility] Cardiac Catheterization/Intervention Re port Patient Name: December Procedure Date: 09/02/2021 A #: [id number] Primary Physician: Rafi Barrett Case #: [id number] File Name: [id number] Catheterization Order Number: [id number] [facility] [employer] [facility] Final Report [place], [place] Patient Name: Aracelis Monique ID#: [id number] : 1975 Procedure Date: September 02, 2021 [...] was designated as ASA Class III. The [facility] clinical frailty scale is 3: Managing Well. Diagnostic Tests: Prior Coronary Angiography: LV ejection fraction within 6 months is 60%. Electrocardiography: EKG was assessed by ECG. EKG was Abnorm al. EKG showed T-wave inversions. Medications Prior to Procedure: Aspirin, Beta Jerri and Statin. Indications for Diagnostic Cath: The priority of the diagnostic procedur e was Urgent. The indication for the labor delivery rn visit is ACS less than or equal to 24 hrs. Chest pain symptom assessment was: Typical Angina. Ventricular support was supplied with mechanical support with Intra-aort ic balloon pump (IABP) Inserted during procedure and prior to intervent ion. Technique: A 6 SLFr sheath was inserted in the rig radial artery utilizing the Seldinger technique. The [...] was normal and w as via the [place] vessel. The mid segment of the RCA [...] performed the left heart catheterization, coronary angiography, Jones (flow direct ed cath) insertion, IABP insertion in labor delivery rn and oximetry. Rafi Barrett M.D. Report Finalized: [...] 467 ms MUSE SYSTEM (Bezet) Calculated P Advance 40 degrees MUSE SYSTEM Calculated R Advance 35 degrees MUSE SYSTEM Calculated T Advance 68 degrees MUSE SYSTEM INTERPRETATION Sinus tachycardia [...] Signature Troponin-T 0.03 (H) 0.00 - [facility] 0.00 ng/mL [facility] Comment: The 99th percentile for [...] additional sample may be indicated. Reference: Third Everetts Definition of Myocardial Infarction. Journal of the [place] [employer] 2012;60:1581-98 Specimen Anatomical Collection Method Collection Time Receive d Time (Source) Location / / Volume Laterality Blood 09/02/2021 1:30 PM 1:42 EST PM EST Resulting Agency Comment Spec In Lab Jay Jay Gant MD CHEMISTRY ORDERABLES Performing Organization Address City/State/ZIP Code Phon e Number [place] [phone] (ABNORMAL) Differential, Automated (09/02/2021 1:30 PM EST) [facility] Method Time Signature Neutrophils % 52.4 % [facility] LABORATORY Neutr Abs (ANC) 5.54 1.70 - [facility] 6.10 [facility] x10(3)/[facility] LABORATORY Lymphocytes % 31.2 % [facility] LABORATORY Lymphocytes Abs 3.3 (H) 0.9 - 3.2 [facility] x10(3)/[facility] LABORATORY Monocytes % 7.4 % [facility] LABORATORY Monocyte Abs 0.8 0.3 - 0.9 [facility] x10(3)/[facility] LABORATORY Eosinophils % 8.0 % [facility] LABOR[facility]ORY Eosinophils Abs 0.8 (H) 0.0 - 0.4 [facility] x10(3)/[facility] LABORATORY Basophils % 0.6 % [facility] LABORATORY Basophils Abs 0.1 0.0 - 0.1 [facility] x10(3)/[facility] LABORATORY Immature Gran % 0.40 % [facility] Comment: Immature granulocytes(IG's)percentage an d absolute count will include metamyelocytes, myelocytes, and promyelo cytes. Blood smears from CBCs yielding IG's will be scanned manually for concor dance. If this scan disagrees with the automated IG or if promyelocytes are not ed, a manual differential will be performed. Anaya Gran Abs 0.04 0.00 - 0.04 x10(3)/[facility] LABORATORY Specimen Anatomical Collection Method Collection Time Receive d Time (Source) Location / / Volume Laterality Blood 09/02/2021 1:30 PM 1:42 EST PM EST Resulting Agency Comment Spec In Lab Obkiarraa Rosendo DO HEMATOLOGY ORDERABLES Performing Organization Address City/State/ZIP Code Phon e Number [place] [phone] (ABNORMAL) Hemogram (09/02/2021 1:30 PM EST) Analysis Performed At Patho logist Time Signature WBC 10.6 (H) 4.0 - 9.5 [facility] x10(3)/[facility] LABORATORY RBC 3.90 (L) 4.00 [facility] 5.21 [facility] x10(6)/[facility] LABORATORY Hemoglobin 8.9 (L) 11.7 - [facility] 15.5 g/dL [facility] Hematocrit 29.3 (L) 35.7 - [facility] 45.8 % [facility] MCV 75.1 (L) 82.6 - [facility] 94.4 [facility] LABORATORY MCH 22.8 (L) 27.1 - [facility] 32.0 pg [facility] LAB[facility]ATORY MCHC 30.4 (L) 31.7 - [facility] 35.0 g/dL [facility] Platelets 419 (H) 145 - 357 [facility] x10(3)/[facility] LABORATORY RDWSD 54.2 (H) 37.0 - [facility] 46.0 [facility] LABORATORY RDWCV 20.0 (H) 11.5 - [facility] 14.1 % [facility] LABORATORY MPV 9.2 7.6 - 12.9 [place] [facility] LABORATORY nRBC % Auto 0.0 % [facility] LABORATORY nRBC Abs Auto 0.000 0.000 - [facility] 0.000 [facility] x10(3)/[facility] LABORATORY Specimen Anatomical Collection Method Collection Time Receive d Time (Source) Location / / Volume Laterality Blood 09/02/2021 1:30 PM 1 1:42 EST PM EST Resulting Agency Comment Spec In Lab Mirza Robbins DO HEMATOLOGY ORDERABLES Performing Organization Address City/State/ZIP Code Phon e Number [place] [phone] (ABNORMAL) Hemoglobin A1c (09/02/2021 1:30 PM EST) Analysis Performed At Patho logist Time Signature Hemoglobin A1C 6.8 (H) 4.3 - 5.6 [facility] [...] 1, S67-74 Est Avg Gluc 149 mg/dL [facility] LABORATORY Comment: eAG equivalents for HbA1c percentages: HbA1c(%) ?eAG(mg/dL) 6.0 ?126 6.5 ?140 7.0 ?154 7.5 ?169 8.0 ?183 8.5 ?197 9.0 ?212 9.5 ?226 10.0 ? 240 Limitations: The eAG calculation has not been validated on women, individuals below 18 years old and above 70 years old, and individuals with hemoglobinopathies. Additional resources are available on [facility] website. Arnel TSE, Louis J, Anthony Whitley, et al. ??Tr anslating the A1C assay into estimated average glucose values. ??Diabetes Care 2008:31(8):2419-6897. Specimen Anatomical Collection Method Collection Time Receive d Time (Source) Location / / Volume Laterality Blood 09/02/2021 1:30 PM 1:42 EST PM EST Resulting Agency Comment Spec In Lab Jay Jay Gant MD CHEMISTRY ORDERABLES Performing Organization Address City/State/[place] [address] Lipid Panel (Reflex Direct LDL) (09/02/2021 1:30 PM EST) P athologist Signature Chol, Total 139 mg/dL [facility] Comment: Lower Risk: <200 mg/dL Average Risk: 200-239 mg/dL Higher Risk: >gs=763 mg/dL Triglycerides 178 mg/dL [facility]OR[facility]ORY Comment: Average Risk/Lower Risk: <150 mg/dL Borderline High Risk: 150-199 mg/dL High Risk: 200-499 mg/dL Very High Risk: >br=443 mg/dL HDL 24 mg/dL [facility] Comment: Males: ?? Higher Risk: <40 mg/dL Females: ?? Higher Risk: <50 mg/dL LDL Cholesterol 79 mg/dL [facility] Comment: Lowest Risk: <100 mg/dL Lower Risk: 100-129 mg/dL Borderline High Risk: 130-159 mg/dL High Risk: 160-189 mg/dL Very High Risk: >wh=983 mg/dL Chol/HDL Ratio 5.8 ratio [facility] Lipid Interpretation See Note [facility] LABORATORY Comment: Lipid management should be guided by a p atient? s ASCVD risk, goals and preferences. ACC/AHA Guidelines recommend high intens ity statin if clinical ASCVD or LDL greater than or equal to 190 mg/dL. http://[email or web address] Photo [email or web address]/XZY-MUP-[email or web address] Adults aged 40-75 with LDL 70-189 mg/dL should have their 10 year ASCVD risk estimated with the ACC/AHA ASCVD risk es timator http://tools.acc.org/PBTBK-Cqwk-Lveyjawf r/ Statin should be discussed if risk [...] Organization Address City/State/[place] [address] (ABNORMAL) APTT (09/02/2021 1:30 PM EST) P athologist Signature PTT 38 (H) 25 - 37 sec [facility] Comment: The PTT is NOT [...] Organization Address City/State/[place] [address] Prothrombin Time (09/02/2021 1:30 PM EST) P athologist Signature PT 11.9 9.4 - 12.5 [facility] LABORATORY INR 1.0 [facility] Comment: An INR <2.0 indicates [...] Gant MD HEMATOLOGY ORDERABLES Performing Organization Address City/[facility]/ZIP Code Phon e Number [place] [phone] (ABNORMAL) Hepatic Function Panel (09/02/2021 1:30 PM EST) Analysis Performed At Patho logist Time Signature Total Protein 6.5 6.1 - 8.0 [place] g/dL [facility] Albumin 3.6 3.2 - 5.2 [place] g/dL [facility] AST 12 0 - 30 [place] unit/L [facility] ALT 11 0 - 30 [place] unit/L [facility] Alk Phos 82 35 - 105 [place] unit/L [facility] Total <0.2 (L) 0.2 - 1.3 [place] Bilirubin mg/dL [facility] Bili, Direct 0.1 0.0 - 0.3 [place] mg/dL [facility] Specimen Anatomical Collection Method Collection Time Receive d Time (Source) Location / / Volume Laterality Blood 09/02/2021 1:30 PM 1 1:42 EST PM EST Resulting Agency Comment Spec In Lab Jay Jay Gant MD CHEMISTRY ORDERABLES Performing Organization Address City/[facility]/[place] [address] (ABNORMAL) pro-Brain Natriuretic Peptide (09/02/2021 1:30 PM EST) athologist Signature ProBNP 1,583 (H) <=124 [facility] pg/mL [facility] Specimen Anatomical Collection Method Collection Time Receive d Time (Source) Location / / Volume Laterality Blood 09/02/2021 1:30 PM 1 1:42 EST PM EST Resulting Agency Comment Spec In Lab Jay Jay Gant MD CHEMISTRY ORDERABLES Performing Organization Address City/[facility]/[place] [address] Phosphorus (09/02/2021 1:30 PM EST) athologist Signature Phosphorus 3.3 2.5 - 4.5 [place] mg/dL [facility] Specimen Anatomical Collection Method Collection Time Receive d Time (Source) Location / / Volume Laterality Blood 09/02/2021 1:30 PM 1 1:42 EST PM EST Resulting Agency Comment Spec In Lab Jay Jay Gant MD CHEMISTRY ORDERABLES Performing Organization Address City/[facility]/[place] [address] Magnesium (09/02/2021 1:30 PM EST) athologist Signature Magnesium 0.69 0.69 - 1.07 [facility] mmol/L [facility] Specimen Anatomical Collection Method Collection Time Receive d Time (Source) Location / / Volume Laterality Blood 09/02/2021 1:30 PM 1 1:42 EST PM EST Resulting Agency Comment Spec In Lab Jay Jay Gant MD CHEMISTRY ORDERABLES Performing Organization Address City/[facility]/[place] [address] (ABNORMAL) Basic Metabolic Panel (non-fasting) (09/02/2021 1:30 PM EST) athologist Signature Glucose Lvl 180 65 - 199 [facility] mg/dL [facility] Comment: Diabetes: >=200 mg/dL plus symp toms BUN 14 8 - 18 mg/dL [facility] LABORATORY Creatinine 0.65 (L) 0.70 - 1.20 mg/dL [facility]OR[facility]ORY Sodium 141 135 - 145 mmol/L [facility] Potassium 4.1 3.5 - 5.0 mmol/L [facility] Comment: Please note: ??Patients with WBC >100,00 0 may have falsely elevated Potassium levels. ??For accurate Potassium quantif ication in these patients send serum separator tube (gold top) for subsequent determinations. ??Contact the Clinical Chemistry Laboratory if there are any qu estions. Chloride 105 98 - 107 mmol/L [facility] CO2 24 22 - 31 mmol/L [facility] Anion Gap 12 5 - 15 mmol/L [facility]ORATORY Calcium 8.4 (L) 8.5 - 10.5 mg/dL [facility] Estimated GFR 106 >=60 mL/min/1.73 m?? [facility] Comment: This patient? s estimated [...] Organization Address City/State/ZIP Code Phon e Number [facility] [place] [address] (ABNORMAL) POCT Glucose (09/02/2021 1:27 PM EST) P athologist Signature POC Glucose 201 (H) 65 - 199 [place] mg/dL [facility] Comment: Supplemental ranges: <140 mg/dL before meals <180 mg/dL all other times of the day Specimen Anatomical Collection Method Collection Time Receive d Time (Source) Location / / Volume Laterality Blood 09/02/2021 1:27 PM 1:27 EST PM EST Jay Jay Gant MD POINT OF CARE TEST ORDERABLE S Performing Organization Address City/State/ZIP Code Phon e Number [place] [phone] [facility] LABORATORY Drive COVID-19 PCR (09/02/2021 1:01 PM EST) Patholo gist Method Time Signature SARS-CoV-2 Not Detected Not Detected [facility] RNA PCR [facility] Comment: This result should be [...] using the Simplexa COVID-19 Direct Assay by RiverOnestarla pradhan as authorized by the FDA issued [...] Department of Pathology and Laboratory Medicine at [place] [facility], certified under the Clinical Laboratory [...] fact sheets at the following FDA website: https://www.fda.gov/medical-devices/zxasxgfnptm-bcysyqe-6345-yklvr-41-shnijycet- csg-epwtllzesfewet-zgosopk-devices/bvtch-wewynwvduqr-pdvx SARS-CoV-2 Source [employer] Swab [facility] Specimen (Source) Anatomical Collection Method Collection Time Re ceived Time Location / / Volume Laterality Nasopharyngeal Swab 09/02/2021 1:01 09/02 PM EST 2:45 PM EST Comment: Symptoms->Surveillance Resulting Agency Comment Spec In Lab Jay Jay Gant MD MICROBIOLOGY - GENERAL ORDER ERIN Performing Organization Address City/State/[place] [address] documented in this encounter Visit Diagnoses Diagnosis NSTEMI (non-ST elevated myocardial infar ction) Acute myocardial infarction, subendocard ial infarction, episode of care unspecified Coronary artery disease involving [place] coronary artery of [place] heart without angina pectoris HFrEF (heart failure with reduced ejecti on fraction) NSTEMI (non-ST elevated myocardial infar ction) Acute myocardial infarction, subendocard ial infarction, episode of care unspecified Coronary artery disease involving [place] coronary artery of [place] heart without angina pectoris documented in this [...] on Mon09/05/21 at 0930, Until Discontinued, Routine cefpodoxime (Vantin) [...] Routine fentaNYL (pf) (50 mcg/mL) multi-dose Given 09/02/2021 2:46 PM ES T 25 mcg injection ONCE PRN, Starting on Toya 09/02/21 at 1446, Until Toya 09/02/21 at 1538, Cath (Intra-Procedure), Routine fentaNYL (pf) (50 mcg/mL) multi-dose Given 09/03/2021 5:48 PM ES T 12.5 mcg injection ONCE PRN, Starting on Toya 09/02/21 at 1634, Until Mon09/03/21 at 1903, Cath (Intra-Procedure), Routine Given 09/03/2021 5:33 PM EST 25 mcg Given 09/03/2021 5:10 PM EST 12.5 mcg ferrous sulfate EC tablet 325 mg Given 09/04/2021 8:18 AM EST 325 mg 325 mg, Oral, EVERY OTHER DAY, First dose on 09/04/21 at 0900, Until Discontinued, DO NOT CRUSH OR OPEN. Take with food or water. , Routine furosemide (Lasix) (10 mg/mL) injection Given 09/02/2021 3:25 PM EST 40 mg ONCE PRN, Starting on Toya 09/02/21 at 1525, Until Toya 09/02/21 at 1538, Cath (Intra-Procedure), Routine gabapentin (Neurontin) capsule 1,200 mg Given [...] 37.5 grams., Routine heparin (porcine) (1,000 units/mL) Given 09/02/2021 3:05 PM EST 5,000 Units injection ONCE PRN, Starting on Toya 09/02/21 at 1505, Until Toya 09/02/21 at 1538, Cath (Intra-Procedure), Routine insulin glargine (Lantus;Semglee) (100 Given 09/04/2021 [...] Routine iohexoL (Omnipaque) (350 mg/mL) solution Given 09/02/2021 3:34 PM EST 88 mLs ONCE PRN, Starting on Toya 09/02/21 at 1534, Until Toya 09/02/21 at 1538, Cath (Intra-Procedure), Routine ipratropium-albuteroL (Duoneb) 0.5 mg-3 [...] ONCE PRN, 1 dose, Startin g on Mon09/02/21 at 1246, Until 09/05/21 at 1508, for [...] OPEN, Routine midazolam (pf) (Versed) (1 mg/mL) multi-dose Given 11/2020 4:23 PM EST 0.5 mg injection ONCE PRN, Starting on Mon09/02/21 at 1623, Until Toya 09/02/21 at 1721, Cath (Intra-Procedure), Routine nicotine (Nicoderm CQ) 7 Patch Applied [...] mL infusion EST CONTINUOUS PRN, Starting on Toya 09/02/21 at 1536, Until Toya 09/02/21 at 1536, Cath (Intra-Procedure), Routine New Bag [...] sodium chloride 0.9 % (flush) (BD PosiFl [facility] Normal Saline 0.9) flush 5-20 mL 5-20 [...] mg 0408 (Given - Pr ovider: Chelle Burrows, RN)1209 (Given - Provider: Juan Mohan, DEVAN)1634 (NOV Hold - Provider: Admin Adt - Reason: Transfer to a Procedural area)2005 (NOV Unhold - Provider: Admin Adt)2051 (Given - Provider: Sharmin Dodge, DEVAN) 0445 (Not Given - Provider: Sahrmin Dodge, DEVAN - Reason: Patient/family refused)1213 (Given - Provider: Ruth Barros, DEVAN)2104 (Given - Provider: Jodi Anaya, DEVAN) 0540 (Given - Provider: Jodi Anaya, DEVAN)1210 (Given - Provider: Hermelindo Yanez, RN) 975 mg, Oral, EVERY 8 HOURS, First dose on Mon09/03/21 at 0445, Until Discontinued, Maximum dose of acetaminophen is 4000 mg from all sources in 24 hours. When ordered for pain, acetaminophen should be given even when other ordered pain medications are indicated. , Routine aspirin EC tablet 81 mg 0918 (Given - Provider: Karen Mohan, DEVAN)1634 (NOV Hold - Provider: Admin Adt - Reason: Transfer to a Procedural area)2005 (NOV Unhold - Provider: Admin Adt) 0817 (Given - Provider: Ruth Barros, DEVAN) 0901 (Given - Provider: Hermelindo Yanez, RN) 81 mg, Oral, DAILY, First dose on Mon at 0945, Until Discontinued, Routine atorvastatin (Lipitor) tablet 80 mg 163 (NOV Hold - P rovider: Admin Adt - Reason: Transfer to a Procedural area)1700 (Automatically Held - Provider: Admin Adt)2005 (NOV Unhold - Provider: Admin Adt) 161 (Given - Provider: Ruth Barros RN) 80 [...] Inhalation (CANCELED) 918 (Given - Provider: Juan Mohan, DEVAN)163 (MAR Hold - Provider: Admin Adt - Reason: Transfer to a Procedural area)2005 (NOV Unhold - Provider: Admin Adt)2051 (Given - Provider: Sharmin Dodge RN) 0834 (Given - Provider: Ruth Barros, DEVAN) 2 Inhalation, Inhalation, 2 TIMES DAILY, First dose on Toya 09/02/21 at 1345, Until Discontinued cefpodoxime (Vantin) tablet 200 mg 0937 (Given - Provider: Ruth Barors RN)2105 (Given - Provider: Jodi Anaya, DEVAN) 09 [...] Admin Adt) 08 (Given - Provider: Ruth Barros RN) 09 (Given - Provider: Hermelindo Yanez , DEVAN) 75 mg, Oral, DAILY, First dose (after la st modification) on Mon09/03/21 at 0900, Until Discontinued, Routine doxycycline monohydrate (Monodox) capsule 100 mg 934 (Given - Provider: Ruth Barros, DEVAN)2104 (Given - Provider: Jodi Anaya, DEVAN) 900 [...] RN)1209 (Given - Provider: Juan Mohan RN)1634 (NOV Hold - Provider: Admin Adt - Reason: Transfer to a Procedural area)2005 (NOV Unhold - Provider: Admin Adt) 817 (Given - Provider: Ruth villela RN)1121 (Given - Provider: Ruth Barros RN) 0901 (Given - Provider: Hermelindo Yanez RN)1137 [...] Reason: Contraindicated)1200 (Not Given - Provider: Juan Mohan, DEVAN - Reason: Order parameters not met) 0014 [...] Reason: See comment - Comment: pt in labor delivery rn)1634 (MAR Hold - Provider: Admin Adt - [...] RN - Comment: Discussed FSBG with Mirza Robbins, DO. Dose given now as Q2 follow-up from 1600, in addition to 2000 dose per Mirza Robbins, DO.)2105 (Given - Provider: Jodi Anaya, DEVAN) 0539 (Given - Provider: Jodi Anaya, DEVAN)0830 (Given - Provider: Hermelindo Yanez RN) 2-16 [...] subcutaneous injection vial 2-16 Units(Linked Group 2) 3673 (Given - Prov ider: Hermelindo Yanez RN [...] Adt) 0134 (Given - Provider: Sharmin Dodge, RN)0800 (Not Given - Provider: Ruth Barros RN - Reason: Medication Discontinued) 3 mL, Nebulization, EVERY 6 HOURS, First dose (after last modification) on Mon09/03/21 at 1400, Until Discontinued, Routine ipratropium-albuteroL (Duoneb) 0.5 mg-3 mg(2.5 mg base)/3 mL nebulizer solution 3 mL 1129 (Given - Provider: Willy Barros RN)1618 (Given - Provider: Ruth Barros RN)1909 (Given - Provider: Marilia Corcoran RN)2348 (Given [...] met - Comment: 3 patches applied; see [facility] for alternative order) 1 patch, Transdermal, EVERY 24 HOURS, Fi rst dose on Mon09/03/21 at 1430, Until Discontinued, Apply patch(es) for 12 hours, and then remove for 12 hours., Routine lidocaine (Lidoderm) 5% patch 3 patch(Linked Group 4) 1341 (Patch Applied - Provider: Juan Mohan, DEVAN)1634 (NOV Hold - Provider: Admin Adt - Reason: Transfer to a Procedural area)2005 (NOV Unhold - Provider: Admin Adt) 1448 (Patch Applied - Provider: Ruth Barros, DEVAN) 3 patch, Transdermal, EVERY 24 HOURS, Fi rst dose (after last modification) on Mon09/03/21 at 1430, Until Discontinued, Apply patch(es) for 12 hours, and then remove for 12 hours., Routine lidocaine (Lidoderm) topical patch REMOVAL(Linked Grou p 3) 1634 (NOV Hold - Provider: Admin Adt - Reason: Transfer to a Procedural area)2005 ([facility] Unhold - Provider: Admin Adt) 0130 (Patch Removed - Provider: Sharmin Dodge RN) 0 130 (Patch Removed - Provider: Jodi Anaya, DEVAN) Transdermal, EVERY 24 HOURS, First dose on 09/04/21 at 0130, Until Discontinued, Remove lidocaine 5% patch lidocaine (Lidoderm) topical patch REMOVAL(Linked Grou p 4) 1634 ([facility] Hold - Provider: Admin Adt - Reason: Transfer to a Procedural area)2005 ([facility] Unhold - Provider: Admin Adt) 0530 (Patch Removed - Provider: Sharmin Dodge, DEVAN) 0 530 (Patch Removed - Provider: Jodi Anaya, DEVAN) Transdermal, EVERY 24 HOURS, First dose (after last modification) on 09/04/21 at 0530, Until Discontinued, Remove lidocaine 5% patch losartan (Cozaar) tablet 25 mg 0 901 (Given - Provider: Hermelindo Yanez, DEVAN) 25 mg, Oral, DAILY, First dose on [...] 50 mg, Oral, DAILY, First dose on [place] at 1200, Until Discontinued, DO NOT CRUSH OR OPEN, Routine metoprolol tartrate (Lopressor) tablet 12.5 mg (CANCELED) 0820 (Given - Provider: Ruth Barros RN)1200 (Hold - Provider: Ruth Barros RN - Reason: Contraindicated - Comment: 88/61 (71))1757 (Given - Provider: Ruth Barros RN)2348 (Given - Provider: Jodi Anaya, DEVAN) 0541 (Given - Provider: Jodi Anaya RN) 12.5 mg, Oral, EVERY 6 HOURS SCHEDULED, First dose on [facility] 09/04/21 at 0815, Until Discontinued, Hold [...] RN) 0904 (Patch Applied - Provider: Hermelindo Yanez RN) 7 mg (1 patch), Transdermal, DAILY, Firs t dose on [facility] 09/02/21 at 1345, Until Discontinued, Apply new patch to nonhairy, clean, dry skin on the upper body or upper outer arm; each patch should be applied to a different site , Routine nicotine (NICODERM CQ) 7 mg/24 hr patch Patch Removal( Linked Group 5) 0900 (Patch Not Removed (add comment) - Provider: Juan Mohan RN - Comment: No patch)1634 (MAR Hold - Provider: Admin Adt - Reason: Transfer to a Procedural area)2005 (MAR Unhold - Provider: Admin Adt) 0900 (Patch Removed - Provider: Ruth Barros RN - Comment: RUE) 0900 (Patch Removed - Provider: Hermelindo Yanez RN) Transdermal, DAILY, First dose on Mon at 0900, Until Discontinued, Remove nicotine 7 mg/24 hr patch nicotine (NICODERM CQ) 7 mg/24 hr patch Patch Verifica tion(Linked Group 5) 09 (Patch (dose and location) verified - Provider: Juan Mohan RN)1634 (NOV Hold - Provider: Admin Adt - Reason: Transfer to a Procedural area)2005 (NOV Unhold - Provider: Admin Adt) 899 (Patch (dose and location) verified - Provider: Ruth Barros RN - Comment: ELISA x1)2099 (Patch (dose and location) verified - Provider: Jodi Anaya RN) 899 (Patch (dose and location) verified - Provider: Hermelindo Yanez RN) Transdermal, 2 TIMES DAILY, First dose o n Mon09/03/21 at 0900, Until Discontinued, Verify nicotine 7 mg/24 hr patch. 2099 (Patch (dose and location) verified - Provider: Sharmin Dodge RN) pantoprazole (Protonix) injection 40 mg (CANCELED) (Given - Provider: Juan Mohan RN)1634 (NOV Hold - Provider: Admin Adt - Reason: Transfer to a Procedural area)2005 (MAR Unhold - Provider: Admin Adt)2106 (Given - Provider: Sharmin Dodge RN) 0818 (Given - Provider: Ruth Barros RN) 40 mg, Intravenous, 2 TIMES DAILY, First dose (after last modification) on Mon09/02/21 at 1830, Until Discontinued pantoprazole EC (Protonix) tablet 20 mg 20 mg, Oral, DAILY, First dose on Mon at 1330, Until Discontinued, DO NOT CRUSH OR OPEN, Routine pantoprazole EC (Protonix) tablet 40 mg (CANCELED) 900 (Given - Provider: Hermelindo Yanez RN) 40 mg, Oral, DAILY, First dose on Sun at 0900, Until Discontinued, DO NOT CRUSH OR OPEN, Routine predniSONE (Deltasone) tablet 40 mg 09 (Given - Provider: Ruth Barros RN) 0901 (Given - Provider: Hermelindo Yanez , DEVAN) [...] area)2005 (NOV Unhold - Provider: Admin Adt) 826 (Given [...] 0900 (Given - Provider: Juan Mohan RN)163 (NOV Hold - Provider: Admin Adt - Reason: Transfer to a Procedural area)2005 (NOV Unhold - Provider: Admin Adt)2054 (Given - [...] Juan Mohan, DEVAN)1600 (Paused - Provider: Zaida Escalante, DEVAN)1634 (NOV Hold - Provider: Admin Adt [...] area)2005 (MAR Unhold - Provider: Admin Adt) 0-200 mcg/min (0-60 mL/hr), Intravenous, CONTINUOUS, Starting on Toya 09/02/21 at 1845, Until 09/05/21 at 1508, Titrate to resolution of chest pain. Start at 25 mcg/min and adjust by 25 mcg/min every 5 minutes. Do not exceed 200 mcg/min., Routine sodium chloride 0.9% infusion () 1929 (New Bag - Provider: Patricia Colindres, RN)2300 (Stopped - Provider: Sharmin Dodge, DEVAN) 50 mL/hr, Intravenous, CONTINUOUS, Start ing on [...] () 0 109 (Given - Provider: Chelle Burrows, DEVAN)0317 (Given - Provider: Chelle Burrows, RN)0423 (Given - Provider: Chelle Burrows, RN)0710 (Given - Provider: Chelle Burrows, RN)0816 (Given - Provider: Kylah Martin, DEVAN) [...] Wenceslao Ledesma RN)1710 (Given - Provider: Wenceslao Ledesma, DEVAN) ONCE PRN, Starting on Toya 09/02/21 at 163 4, Until Mon09/03/21 at 1903, Cath (Intra-Procedure), Routine 1733 (Given - Provider: Wenceslao Ledesma RN )1748 (Given - Provider: Wenceslao Ledesma, RN) fentaNYL (pf) (50 mcg/mL) multi-dose injection (CANCEL ED) 1633 (Given - Provider: Wenceslao Ledesma, DEVAN)1753 (Given - Provider: Wenceslao Ledesma, DEVAN)1825 (Given - Provider: Wenceslao Ledesma RN)1841 (Given [...] EVERY 4 HOURS PRN, Startin g on Mon09/03/21 at 1328, Until Mon09/05/21 at 1110, Cough, Maximum daily dose is 2400 mg, Routine heparin (porcine) (1,000 units/mL) injection 0-4,000 U nits (CANCELED) 1208 (Given - Provider: Juan Mohan RN)1634 (NOV Hold - Provider: Admin Adt - Reason: Transfer to a Procedural area)2005 (MAR Unhold - Provider: Admin Adt) 0-4,000 Units, Intravenous, [facility], Starting on Toya 09/02/21 at 1259, [...] Wenceslao Ledesma, DEVAN)1805 (Given - Provider: Wenceslao Ledesma, DEVAN) ONCE PRN, Starting on Mon09/03/21 at 165 2, Until Mon09/03/21 at 1903, Cath (Intra-Procedure), Routine iohexoL (Omnipaque) (350 mg/mL) solution (CANCELED) 19 02 (Given - Provider: Rafi Barrett MD) ONCE PRN, Starting on Mon09/03/21 at 190 2, Until 09/03/21 at 1903, Cath (Intra-Procedure), Routine ipratropium-albuteroL (Duoneb) [...] area)2005 (MAR Unhold - Provider: Admin Adt) 3 mg (0.3 mL), Subcutaneous, ONCE PRN, 1 dose, Starting on Toya 09/02/21 at 1246, Until 09/05/21 at 1508, for discomfort with PIV insertion, Routine midazolam (pf) (Versed) (1 mg/mL) injection 1 mg (CANC ELED) 1645 (Given - Provider: Wenceslao Ledesma, DEVAN) 1 mg, Intravenous, EVERY 1 HOUR PRN, [...] Chelle Burrows, DEVAN)0711 (Given - Provider: Chelle Burrows, DEVAN)1208 (Given - Provider: Juan Mohan RN)1634 (NOV [...] mg 1757 (Given - Provider: Ruth Barros, RN)2349 (Given - Provider: Jodi Anaya, DEVAN) 0540 [...] 0141 (See Alternative - Provider: Chelle Burrows RN)163 ([facility] Hold - Provider: Admin Adt - Reason: Transfer to a Procedural area)2005 ([facility] Unhold - Provider: Admin Adt) 20 mEq, Oral, EVERY 4 HOURS PRN, Startin g on Toya 09/02/21 at 2037, Until 09/05/21 at 1508, hypokalemia, Administer for serum potassium (mMol/L) of 3.9 - 4 See instructions for Potassium Protocol in online policies., Routine potassium chloride ER (K-Dur/Klor-Con) tablet 40 mEq(L inked Group 7) 0141 (Given - Provider: Chelle Burrows RN)163 ([facility] Hold - Provider: Admin Adt - Reason: Transfer to a Procedural area)2005 ([facility] Unhold - Provider: Admin Adt) 40 mEq, Oral, EVERY 4 HOURS PRN, Startin g on Toya 09/02/21 at 2037, Until 09/05/21 at 1508, hypokalemia, Administer for serum potassium (mMol/L) of 3.6 - 3.8 See instructions for Potassium Protocol in online policies., Routine sodium chloride 0.9 % (flush) (BD PosiFlush Normal [place] ine 0.9) flush 5-20 mL 1634 ([facility] Hold - Provider: Admin Adt - Reason: Transfer to a Procedural area)2005 ([facility] Unhold - Provider: Admin Adt) 5-20 mL, Intravenous, EVERY 1 MIN PRN, S tarting on Toya 09/02/21 at 1246, Until 09/05/21 at 1508, flush, Flush pertains to all indwelling lines. Flush per protocol found in the job aid using the link provided on this medication record., Routine sodium chloride 0.9 % (flush) (BD PosiFlush Normal [place] ine 0.9) flush 5-20 mL 163 ([facility] Hold - Provider: Admin Adt - Reason: Transfer to a Procedural area)2005 ([facility] Unhold - Provider: Admin Adt) [...] hu 09/02/21 at 2100, Until Discontinued, Routine Group 2: POCT Fingerstick Glucose (CANCELED) Routine, EVERY 4 HOURS, First occurrence on 09/05/21 at 1200, Until Specified
Consider choosing [...]
Routine documented in this encounter Care Teams Plug Grower Relationship Specialty Start Date End Date Valentin Parekh MD PCP - General Family Medicine 08/06/[address] [place] [phone] documented as of this encounter
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
--- OUTSIDE RECORDS SUMMARY | 2022-08-14 18:39 | XMS_ITS | Encounter Summary ---
:1975 Author Organization [facility] [place] [place] [address] Care Team Providers Name Role Phone Gonzales Mckinnon MD Primary Care Provider Encounter Details Date Type Department Care Team Description 08/02/2012 Hospital Encounter XRay at [address] [place] [address] Social History Tobacco Use Types Packs/Day [...] Tameka Neal MD [facility] [address] [place] [address] (Wo rk) documented as of this encounter Visit Diagnoses Not on filedocumented in this encounter Care Teams Hot Metal Mixer Operator Relationship Specialty Start Date End Date Gonzales Mckinnon MD PCP - General 08/02/12 08/05/21 [address] [place] [address] documented as of this encounter
--- OUTSIDE RECORDS SUMMARY | 2022-08-14 18:39 | XMS_ITS | Encounter Summary ---
:1975 [place] [address] Care Team Providers Name Role Phone InyoSara suazo Shad STEEL Primary Care Provider Encounter Details Date Type Department Care Team Description 10/21/2011 Hospital Encounter Laboratory Wenceslao Proctor MD [facility] [address] [place] [address] [place], [place] [phone] [id number] (Wo rk) Social History Tobacco Use Types Packs/Day Years Used Date Smoking Tobacco: Never Assessed Sex Assigned at Date Recorded Not on file documented as of this encounter Medications at Time of Discharge Medication Sig Dispensed Refills Start Date End Date lansoprazole (PREVACID) 30 mg capsule 0 11/06/2006 08/02/2012 documented as of this encounter Plan of Treatment Upcoming Encounters Date Type Specialty Care Team Description 08/22/2022 Appointment Cardiology 08/22/2022 Laboratory Appointment Lab 08/22/2022 Office Visit Cardiology Tameka Neal MD [place], [place] [address] (Wo rk) documented as of this encounter Procedures Procedure Name Priority Date/Time Associated Diagnosis Comme nts MARKETING ANALYTICS MANAGER CYTOLOGY FINAL Routine 10/21/2011 3:16 PM Res ults for this REPORT EST procedure are i n the results section. documented in this encounter Results MARKETING ANALYTICS MANAGER CYTOLOGY FINAL REPORT (10/21/2011 3:16 PM EST) Component Value Ref Test Analysis Performed At [facility] Range Method Time Signature Senior Medical Billing Specialist Cytology CERNER Final Report ? [facility] ? Provider: ?? KYA, ?Pt. Name: ?? H December ?CANDI Menezes ? Acc #: ?[id number] ?Pt. MRN: ?[id number] ? Col Date: ?? 10/21/2011 ? /Sex: ?1 ,(36 ? years),Female ? Rec Date: ?? 10/25/2011 ? LOC: ?[facility] ? CYTOPATHOLOGY: ??MARKETING ANALYTICS MANAGER ? ---Adequacy--- ? Specimen submitted is satisfactory for evaluation. ??No endocervical ? component present . ? Note: ??Initial field crop harvest worker ss-sectional studies suggested that FARIDEH cells were more ? commonly identified when an endoc ervical component was present, however ? subsequent longitudinal studies fail to show that wom en lacking an ? endocervical component in a Pap smear are at increa sed risk for FARIDEH. ? ---Cytopathologic Diagnosis--- ? NORMAL ? Negative for Intraepithelial Lesion or Malignancy (NI LM). ? 10/27/11 ?? Screened by: ??LMY ? 10/27/11 ?? Verified by: ??Anthony ENRIQUEZ(ASCP) , Rose Mary Soto - Program Planner ? ---Clinical Information--- ? HPV Option: ? Reflex HPV ? Preparation: ?Liquid Based Pap ? Specimen Source: ?Cervical/LBP ? LMP: ?04/2011 ? Hormones?: ?Yes ? Hysterectomy?: ?Yes - Supracervical ?: ?No ?: ?No ? I.U.D.?: ?No ? Pelvic Radiation: ? No ? Prior MARKETING ANALYTICS MANAGER Therapy?: ? No ? Hist Abnl Pap/Biopsy?: ??No ? Hist of HPV Vaccine?: ?? (not provided) ? Hist of Smoking?: ? (not provided) ? Hist of EMILEE exposure?: ??(not provided) ? Clinical Data, Significant Therapy and Clinical Impre ssion: ?04/2011 Pt. had hysterectomy ?Per PCP - Pt still has cervix ? Referring Identifier: ??[id number] ? This Pap Test has bee n evaluated with the assistance of the ThinPrep Pap ? Test Imaging System. ? [facility] ? Provider: ?? KYA, ?Pt. Name: ?? H , JANIA ?CANDI Menezes ? Acc #: ?[id number] ?Pt. MRN: ?[id number] ? Col Date: ?? 10/21/2011 ? /Sex: ?1 ,(36 ? years),Female ? Rec Date: ?? 10/25/2011 ? LOC: ?[facility] ? Note: ? CYTOPATHOLOGY: ??MARKETING ANALYTICS MANAGER ? The Pap test is a screening test for cervical c ancer with an inherent ? false-negative rate dependent upon several variables. ??For further ? information please contact the [facility] Laboratory. ? Reference: ??Faviola bender CS. ??Psych Social Worker of Pap Smear Results. ??In: ? Abbey BS, [facility], ed. ??The Pap Smear. ??[place]: ??Buster, 2002: ? 71-77. Specimen (Source) Anatomical Collection Method Collection Time Re ceived Time Location / / Volume Laterality 10/21/2011 3:16 PM EST Candi Carcamo APRN PATHOLOGY/CYTOLOGY ORDERABL ES Performing Organization Address City/State/[place] [address] [facility] documented in this encounter Visit Diagnoses Not on filedocumented in this encounter Care Teams Chip Bin Operator Relationship Specialty Start Date End Date Sara Pedroza APRN PCP - General 08/24/10 10/26/11 documented as of this encounter
--- OUTSIDE RECORDS SUMMARY | 2022-08-14 18:39 | XMS_ITS | Encounter Summary ---
:1975 Author Organization [facility] Address [facility] [place] [address] Care Team Providers Name Role Phone Gonzales Mckinnon MD Primary Care Provider Encounter Details Date Type Department Care Team Description 12/13/2012 Abstract Neurology at [facility] Jeff Johnson [place] [facility] [place] [address] NEUROLOGY DEPT. [phone] [place], [place] [address] (Wo rk) Social History Tobacco [...] 08/22/2022 Office Visit Cardiology Tameka Neal MD [facility] [address] [place] [address] (Wo rk) documented as of this encounter Visit Diagnoses Not on filedocumented in this encounter Care Teams Community Engagement Representative Relationship Specialty Start Date End Date Gonzales Mckinnon MD PCP - General 08/02/12 08/05/21 [address] [place] [id number] documented as of this encounter
--- OUTSIDE RECORDS SUMMARY | 2022-08-14 18:39 | XMS_ITS | Encounter Summary ---
:1975 Author Organization [facility] Address [facility] [place] [address] Care Team Providers Name Role Phone Gonzales Mckinnon MD Primary Care Provider Encounter Details Date Type Department Care Team Description 05/19/2011 Orders Only Orthopaedics at [facility] Wenceslao Ramirez MD [facility] [place] [address] ORTHOPAEDIC SURGERY [phone] [place], [place] [address] (Wo rk) Social History Tobacco Use Types Packs/Day Years Used Date Smoking Tobacco: Never Assessed Sex Assigned at Date Recorded Not on file documented as of this encounter Plan of Treatment Upcoming Encounters Date Type Specialty Care Team Description 08/22/2022 Appointment Cardiology 08/22/2022 Laboratory Appointment Lab 08/22/2022 Office Visit Cardiology Tameka Neal MD [facility] [address] [place] [address] (Wo rk) documented as of this encounter Procedures Procedure Name Priority Date/Time Associated Diagnosis Comme nts FILM LIBRARY Routine 05/19/2011 9:57 AM Results f or this STORAGE ONLY MR EDT procedure ar e in SHOULDER the results section. documented in this encounter Results FILM LIBRARY- STORAGE ONLY MR SHOULDER (05/19/2011 9:57 AM EDT) Specimen (Source) Anatomical Collection Method Collection Time Re ceived Time Location / / Volume Laterality 05/19/2011 9:57 AM EDT Narrative RAD - 04/21/2014 7:03 PM EDT This is a non-reportable exam. Procedure Note Elie Ibarra A - 04/21/2014Formatti ng of this note might be different from the original. This is a non-reportable exam. Wenceslao Ramirez MD IM FILM LIBRARY ORDERABLES Performing Organization Address City/State/ZIP Code [facility] e Number DH RAD DH RAD [address] [facility] [place] [address] documented in this encounter Visit Diagnoses Not on filedocumented in this encounter Care Teams Power Barker Operator Relationship Specialty Start Date End Date Gonzales Mckinnon MD PCP - General 08/02/12 08/05/[address] [place] [address] documented as of this encounter
--- OUTSIDE RECORDS SUMMARY | 2022-08-14 18:39 | XMS_ITS | Encounter Summary ---
:1975 Author Organization [facility] Address [facility] [place] [address] Care Team Providers Name Role Phone Gonzales Mckinnon MD Primary Care Provider Encounter Details Date Type Department Care Team Description 07/19/2011 Orders Only Orthopaedics at [facility] Wenceslao Ramirez MD [facility] [place] [address] ORTHOPAEDIC SURGERY [phone] [place], [place] [address] (Wo rk) Social History Tobacco Use Types Packs/Day Years Used Date Smoking Tobacco: Never Assessed Sex Assigned at Date Recorded Not on file documented as of this encounter Plan of Treatment Upcoming Encounters Date Type Specialty Care Team Description 08/22/2022 Appointment Cardiology 08/22/2022 Laboratory Appointment Lab 08/22/2022 Office Visit Cardiology Tameka Neal MD [facility] [address] [place], [place] [address] (Wo rk) documented as of this encounter Procedures Procedure Name Priority Date/Time Associated Diagnosis Comme nts FILM LIBRARY Routine 07/19/2011 9:54 AM Results f or this STORAGE ONLY DX EDT procedure ar e in SHOULDER the results section. documented in this encounter Results FILM LIBRARY- STORAGE ONLY DX SHOULDER (07/19/2011 9:54 AM EDT) Anatomical Region Laterality Modality Other Specimen (Source) Anatomical Collection Method Collection Time Re ceived Time Location / / Volume Laterality 07/19/2011 9:54 AM EDT Narrative 11/21/2013 9:40 PM EST This is a non-reportable exam. Procedure Note Ricardo Ibarra - 11/21/2013Formatting of t his note might be different from the original. This is a non-reportable exam. Wenceslao Ramirez MD [facility] FILM LIBRARY ORDERABLES documented in this encounter Visit Diagnoses Not on filedocumented in this encounter Care Teams Tie Hacker Relationship Specialty Start Date End Date Gonzales Mckinnon MD PCP - General 08/02/12 08/05/[address] [place] [address] documented as of this encounter
--- OUTSIDE RECORDS SUMMARY | 2022-08-14 18:39 | XMS_ITS | Encounter Summary ---
:1975 [place] [address] Care Team Providers Name Role Phone Valentin Parekh MD Primary Care Provider Encounter Details Date Type Department Care Team Description 09/01/2021 Telephone Cardiology Cheryl Goodwin PA [facility] [place] [address] CARDIOLOGY DEPT. [phone] [place], [place] [address] (Wo rk) Social History Tobacco Use Types Packs/Day Years Used Date Smoking Tobacco: Every Day Cigarettes 0.5 Alcohol Use Standard Drinks/Week Comments Yes 0 (1 standard drink = 0.6 oz pure alcoho l) occasional Sex Assigned at Date Recorded Not on file documented as of this encounter Miscellaneous Notes Telephone Encounter - Cheryl Goowdin PA - 09/01/2021 10:29 AM EST Images from the original note were not included. 09/01/2021December Kayden Initial Contact Date: 09/01/2021 Initial contact time: 10:29 AM Referring Provider: in a meeting Patient Location: [facility] Past Medical History: Hx of dislocation of the left shoulder Presenting Symptoms per OSH: 46 Y O F with no prior history of ASCVD presents to [facility] with an NSTEMI, elevated trop, EKG does not meet STEMI criteria, BP 90-50, 94% on 2 L, likely coming in 09/02 for cardiac cath pending bed availability. Provider at [facility] at a meeting and unable to attend this call at this time per report. Pertinent Diagnostic Findings: Anterior ST changes seen (does not meet STEMI criteria) HR stable, QCT 486 Elevated Trop per report Assessment: NSTEMI, stable Plan: Provider to call back later. Serial biomarkers and EKGS Echocardiogram and CXR Consider transfer for cardiac cath 09/02/2021 Above recommendations were based on my discussion with Dr. Saha; I have not personally interviewed orexamined this patient. Advised to call the transfer center back with any changes in the patient condition. I have personally reviewed EKGs. JERRY Calero 09/01/2021 Pager [phone] 09/01/2021 documented in this encounter Plan of Treatment Upcoming Encounters Date Type Specialty Care Team Description 08/22/2022 Appointment Cardiology 08/22/2022 Laboratory Appointment Lab 08/22/2022 Office Visit Cardiology Tameka Neal MD [facility] [address] [place] [address] (Wo rk) documented as of this encounter Visit Diagnoses Not on filedocumented in this encounter Care Teams Hearing Aid Consultant Relationship Specialty Start Date End Date Valentin Parekh MD PCP - General Family Medicine 08/06/21 [address] [place] [id number] documented as of this encounter
--- OUTSIDE RECORDS SUMMARY | 2022-08-14 18:39 | XMS_ITS | Encounter Summary ---
:1975 Author Organization [facility] [place] [address] Care Team Providers Name Role Phone Valentin Parekh MD Primary Care Provider Encounter Details Date Type Department Care Team Description 09/01/2021 External Results [place] [address] Social History Tobacco Use Types Packs/Day [...] Neal MD [facility] [address] [place], [place] [address] (Wo rk) documented as of this encounter Procedures Procedure Name Priority Date/Time Associated Diagnosis Comme nts ECG SCAN Routine 09/01/2021 documented in this encounter Results Scan Doc: ECG (09/01/2021) Narrative This result has an attachment that is no t available. Historical Provider MD CALVILLO MGR SCAN EXT ORDR/RSLT documented in this encounter Visit Diagnoses Not on filedocumented in this encounter Care Teams Count Room Clerk Relationship Specialty Start Date End Date Valentin Parekh MD PCP - General Family Medicine 08/06/21 [address] [place] [address] documented as of this encounter
--- NOTE | 2022-08-14 18:45 | DI.RAD_ITS ---
Exam(s) XR CHEST 1V IN DI DEPT EXAM: XR CHEST 1V IN DI DEPT CLINICAL HISTORY: stroke symptoms TECHNIQUE: 2D digital imaging was performed. COMPARISON: No exams were available for comparison FINDINGS: LUNGS: Clear. No pleural abnormality seen. HEART: Normal. AORTA: Normal. BONES: Left shoulder prosthesis. Soft tissues: Unremarkable. IMPRESSION: No acute findings. DATA REPOSITORY: RADIATION DOSE DELIVERED:
--- NOTE | 2022-08-14 18:45 | DI.CT_ITS ---
Exam(s) CT BRAIN NECK CTA EXAM: CT BRAIN NECK CTA CLINICAL HISTORY: left facial falsy, right arm weakness. TECHNIQUE: Imaging Protocol: Axial CT angiography was performed with multi-slice acquisition and mu lti-planar and 3D reconstructions. CONTRAST MATERIAL: Intravenous: Omnipaque 350 Contrast volume:85 mL COMPARISON: No exams were available for comparison FINDINGS: CT Head W/O and W contrast: Ventricles and Extra axial spaces: Normal in size and morphology for the patient's age. Hemorrhage: None. Cerebral parenchyma: Normal. Midline shift: None. Brainstem/Cerebellum: Normal. Calvarium: Normal. Visualized Paranasal sinuses/Mastoids: Mucous retention left maxillary sinus. Soft Tissues: Unremarkable. Enhancement: Normal. CTA Brain W: Internal Carotid Arteries: Petrous: Normal. Cavernous: Normal. Cerebral: Normal. Middle Cerebral Arteries: Right: No aneurysm, occlusion or significant stenosis. Left: No aneurysm, occlusion or significant stenosis. Anterior Cerebral Arteries: Right: No aneurysm, occlusion or significant stenosis. Left: No aneurysm, occlusion or significant stenosis. Posterior cerebral Arteries: Right: No aneurysm, occlusion or significant stenosis. Left: No aneurysm, occlusion or significant stenosis. Vertebral Arteries: Right: No aneurysm, occlusion or significant stenosis. Left: No aneurysm, occlusion or significant stenosis. Basilar Artery: No aneurysm, occlusion or significant stenosis. CTA Neck W: Common Carotid: Right: No aneurysm, occlusion or significant stenosis. Left: No aneurysm, occlusion or significant stenosis. External Carotid: Right: No aneurysm, occlusion or significant stenosis. Left: No aneurysm, occlusion or significant stenosis. Internal Carotid: Right: No aneurysm, occlusion or significant stenosis. Left: No aneurysm, occlusion or significant stenosis. Vertebral Artery: Right: No aneurysm, occlusion or significant stenosis. Left: No aneurysm, occlusion or significant stenosis. Lung Apices: Normal. Bones: Degenerative disc changes from C4-5 through C6-7. Degenerative changes also noted in the uppe r thoracic region. Soft Tissues: Normal. IMPRESSION: 1. Normal CTA examination of the [place]. 2. Unremarkable CT Head. 3. Normal CTA examination of the neck. No significant carotid plaque. No evidence of dissection. RADIATION DOSE DELIVERED: 2,300.07mGy.cm Total DLP DATA REPOSITORY: All CT scans at this facility are submitted to the National Radiology Data Registry (NRDR) Dose Index Registry (DIR) with the [employer] (A[employer]). RADIATION OPTIMIZATION: All CT scans at this facility use at least one of these dose optimization te chniques: automated exposure control; mA and/or kV adjustment per patient size (includes targeted exa ms where dose is matched to clinical indication); or iterative reconstruction.
--- NOTE | 2022-08-14 18:48 | ED.GENADUL_ITS ---
Discharge Plan Disposition Patient Disposition: STILL A PATIENT Condition: Stable Discharge Details Clinical Impression: Facial palsy Primary Care Provider: Valentin Parekh ED Provider: Wilian Castillo [place] Meds and New Rx's Prescriptions: No Action acetaminophen 325 mg capsule 975 mg PO Q8H PRN atorvastatin 80 mg tablet 80 mg PO DAILY clopidogrel [Plavix] 75 mg tablet 75 mg PO DAILY ferrous sulfate 325 mg (65 mg iron) tablet,delayed release (DR/EC) 325 mg PO Q OTHER DAY Tresiba FlexTouch U-200 200 unit/mL (3 mL) insulin pen 120 unit subcut DAILY losartan 25 mg tablet 25 mg PO DAILY magnesium oxide 400 mg (241.3 mg magnesium) tablet 400 mg PO BID metoprolol succinate 50 mg tablet extended release 24 hr 50 mg PO DAILY PRN nitroglycerin 0.4 mg tablet, sublingual 0.4 mg sublingual Q5M PRN Rx Instructions: do not exceed 3 doses per episode pantoprazole 20 mg tablet,delayed release (DR/EC) 20 mg PO DAILY fluticasone propion-salmeterol [Advair Diskus] 500-50 mcg/dose blister with device 1 inh inhalation BID albuterol sulfate 2.5 mg /3 mL (0.083 %) solution for nebulization 2.5 mg inhalation Q6H PRN insulin lispro [Humalog KwikPen Insulin] 100 unit/mL insulin pen 10 unit subcut QID torsemide 20 mg Tablet 20 mg PO BID methadone 10 mg/5 mL Solution 50 mg PO DAILY oxycodone 10 mg tablet 10 mg PO TID PRN (Reason: pain) Qty: 10 0RF prochlorperazine maleate [Compazine] 10 mg tablet 10 mg PO TID PRN (Reason: nausea and vomiting) Qty: 14 0RF Medical Decision Making 47 yo female with complicated history including cad s/p stenting, dm, chf, who comes in with left facial numbness, drooping, slurred speech and headache since yesterday. She also has felt intermittently dizzy and has had palpitations in her chest, no reported pain or pressure. She has no prior hx of tia or cva per patient. She denies fevers, chills, dyspnea, abdominal pain. She arrives hemodynamically stable but is having mild slurring of speech. 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 She has no deficits in sensation and can feel when I touch her distal legs and extremities. She has noticeable left facial droop and is not able to move her left upper or lower face and has decreased sensation to both upper and lower face soft touch. Eomi, perrl, no asphasia. NIH of 5 (1 for dysarthria, 1 for sensation, 3 for facial palsy). This could be gonsales's palsy but concern with her associated dizziness, and right hand weakness concern for possible cva but last known normal was yesterday so not lytic candidate. She also has had a headache and states she gets frequent headaches, headache has slowly been worsening so doubt subarachnoid, no fevers or meningismus so doubt supervisor modern languages infection. Will obtain ct head and cta to evaluate for both occlusive thrombus, and less likely aneurysm. pt signed out to oncoming provider pending labs, cta results. Differential Diagnosis Differential Diagnosis: cva, bells palsy Medical Records Medical records reviewed: Yes I reviewed the patient's medical records. Lab Data Lab results reviewed: Yes I reviewed the patient's lab results. ECG Data Attestation: I personally reviewed and interpreted this ECG (s) as follows: Prior ECG tracings: not available for review Interpretation: sinus rhythm, rate of 96, pr 146, qtc 515, no stemi HPI General Mode of arrival: ambulatory . Date/Time Provider Initiated Documentation: 08/14/22 18:28 . Limitations to Documentation: no limitations . Information obtained by: patient . History of Present Illness 47 year old F presents to the emergency department with the chief complaint of left facial droop, described as moderate, Patient started experiencing this day(s) (1) and it has been constant. No relieving factors improve symptom(s), No exacerbating factors reported . Patient notes weakness. Patient did receive the following treatments prior to arrival, none Related Data Home Medications Medication Instructions Recorded Confirmed acetaminophen 325 mg capsule 975 mg PO Q8H PRN 10/18/21 03/15/22 albuterol sulfate 2.5 mg/3 mL 2.5 mg inhalation Q6H PRN 10/18/21 03/15/22 (0.083 %) solution for nebulization atorvastatin 80 mg tablet 80 mg PO DAILY 10/18/21 03/15/22 clopidogrel 75 mg tablet (Plavix) 75 mg PO DAILY 10/18/21 03/15/22 ferrous sulfate 325 mg (65 mg 325 mg PO Q OTHER DAY 10/18/21 03/15/22 iron) tablet,delayed release fluticasone 500 mcg-salmeterol 50 1 inh inhalation BID 10/18/21 03/15/22 mcg/dose blistr powdr for inhalation (Advair Diskus) insulin degludec 200 unit/mL (3 120 unit subcut DAILY 10/18/21 03/15/22 mL) subcutaneous pen (Tresiba FlexTouch U-200 insulin) insulin lispro 100 unit/mL 10 unit subcut QID 10/18/21 03/15/22 subcutaneous pen (Humalog KwikPen (U-100) Insulin) losartan 25 mg tablet 25 mg PO DAILY 10/18/21 03/15/22 magnesium oxide 400 mg (241.3 mg 400 mg PO BID 10/18/21 03/15/22 magnesium) tablet metoprolol succinate 50 mg 50 mg PO DAILY PRN 10/18/21 03/15/22 tablet,extended release 24 hr nitroglycerin 0.4 mg sublingual 0.4 mg sublingual Q5M PRN 10/18/21 03/15/22 tablet pantoprazole 20 mg tablet,delayed 20 mg PO DAILY 10/18/21 03/15/22 release methadone 10 mg/5 mL oral solution 50 mg PO DAILY 03/15/22 03/15/22 oxycodone 10 mg tablet 10 mg PO TID PRN pain #10 tabs 03/15/22 prochlorperazine maleate 10 mg 10 mg PO TID PRN nausea and 03/15/22 tablet (Compazine) vomiting #14 tabs torsemide 20 mg tablet 20 mg PO BID 03/15/22 03/15/22 Previous Rx's Medication Instructions Recorded oxycodone 10 mg tablet 10 mg PO TID PRN pain #10 tabs 03/15/22 prochlorperazine maleate 10 mg 10 mg PO TID PRN nausea and 03/15/22 tablet (Compazine) vomiting #14 tabs Allergies Allergy/AdvReac Type Severity Reaction Status Date / Time Bleach (Sodium Hypochlorite) Allergy Unknown Verified 08/14/22 18:37 mushroom Allergy Unknown Verified 08/14/22 18:37 Penicillins Allergy Unknown Verified 08/14/22 18:37 tramadol Allergy Unknown Verified 08/14/22 18:37 mold Allergy Verified 08/14/22 18:37 trazodone Allergy Unverified 08/14/22 18:37 General Stated Complaint: CVA/TIA SHANIA: 2 Review of Systems All systems reviewed & are unremarkable except as noted in HPI and below Constitutional Constitutional: Denies chills and Denies fever(s) Eyes Eyes: Denies loss of vision ENT Ears, Nose, Mouth, and Throat: Denies change in voice Cardiovascular Cardiovascular: Denies chest pain and Denies dyspnea Respiratory Respiratory: Denies cough and Denies dyspnea Gastrointestinal Gastrointestinal: Denies abdominal pain, Denies nausea and Denies vomiting Neurologic Neurologic: Denies loss of vision PFSH All Active Problems (Updated 08/14/22 @ 19:03 by Wilian Castillo MD) Leg wound, left (Acute) Facial palsy (Acute) Pulmonary HTN (Acute) Heart failure (Acute) 09/02/21 with UT low EF Non-STEMI (non-ST elevated myocardial infarction) (Acute) 09/02/21 Vertigo (Acute) GERD (gastroesophageal reflux disease) (Chronic) Essential hypertension (Acute) Asthma (Chronic) Depression (Chronic) PTSD (post-traumatic stress disorder) (Acute) Tobacco abuse disorder (Acute) Hypokalemia (Acute) Chronic gout (Acute) Hyperlipidemia (Acute) Diabetic peripheral neuropathy (Acute) Type 2 diabetes mellitus (Acute) Medical History (Updated 08/14/22 @ 19:03 by Wilian Castillo MD) COVID was vaccinated but contracted Covid 06/22 History of gastrointestinal ulcer Surgical History (Updated 04/15/22 @ 00:06 by KELLEY PHELPS) H/O bone graft left knee H/O shoulder surgery x4 and ending with a full replacement H/O total hysterectomy History of appendectomy History of colonoscopy History of esophagogastroduodenoscopy (EGD) gastritis with gastric ulcers Previous section x4 delivery Family History (Updated 09/29/21 @ 13:41 by Wilian Carter) Mother Cancer Heart disease Obstructive lung disease Depression Arthritis Degeneration of intervertebral disc Father Alcohol use disorder Brother Hypertension Mood disorder Maternal Grandfather Alcohol use disorder Maternal Grandmother Breast cancer Maternal Aunt Breast cancer Paternal Aunt Breast cancer Social History (Updated 09/29/21 @ 13:50 by Wilian Elliott Smoking/Tobacco Use Status: Current every day Tobacco Type: cigarettes Tobacco: How many years used: 34 Smoking risk assessment performed?: Yes Alcohol Intake: never Drug use: Never Substance use type: does not use Do you feel safe at home: Yes Do you feel safe in your relationship?: Yes Exam Const General: no acute distress Orientation: alert HENMT Head: normal to inspection Ears: external ears normal General nose exam: external nose normal Mouth: moist mucous membranes Eyes General: appearance normal, both eyes and all related structures Neck Neck: normal visual inspection Resp Effort & Inspection: normal respiratory effort and able to speak in complete sentences Cardio Rate: regular rate Skin General skin exam: no rashes or lesions noted Neuro General: patient alert and patient oriented x3 Extrem General: normal to inspection Psych Mental Status: mental status grossly normal Course Vital Signs Vital signs: Vital Signs Temperature 36.8 C 08/14/22 18:29 Pulse 105 H 08/14/22 18:29 Respiratory Rate 16 08/14/22 18:29 Blood Pressure 140/86 08/14/22 18:29 Pulse Oximetry 97 08/14/22 18:29 Temperature 36.8 C 08/14/22 18:29 Temperature Source Skin 08/14/22 18:29 Pulse 105 H 08/14/22 18:29 Respiratory Rate 14 08/14/22 18:37 Respiratory Effort 08/14/22 18:40 Respiratory Depth Normal 08/14/22 18:37 Respiratory Pattern Normal 08/14/22 18:37 Blood Pressure 140/86 08/14/22 18:29 Pulse Oximetry 97 08/14/22 18:29 Oxygen Delivery Method Room Air 08/14/22 18:29 Oxygen Flow Rate 0 08/14/22 18:29 End Tidal Co2 8 08/14/22 18:29 Comment prn oxygen at home - uses at night 08/14/22 18:29
[2022-08-14] MEDS: Prochlorperazine 10 MG/2 ML VIAL IVP (19:19)
[2022-08-14 19:25] LABS: Abs Immature Grans 0.02 10^3/uL (0.0-0.06); Absolute Basophil Count 0.06 10^3/uL (0.0-0.2); Absolute Eosinophil Count 0.47 10^3/uL (0.0-0.7); Absolute Monocyte Count 0.96 10^3/uL (0.1-0.8); Absolute Neutrophil Count 4.61 10^3/uL (1.2-6.7); Basophils % 0.6; Eosinophils % 4.9; HCT 48.2 % (36.0-46.0); Immature Grans % 0.2; Lymphocytes % 35.7; MCH 28.8 pg (27.0-33.0); MCHC 33.2 % (32.0-36.0); MCV 87 fL (80-95); MPV 10.2 fL (8.0-11.0); Monocytes % 10.1; Neutrophils % 48.5; Platelet Count 301 10^3/uL (130-400); RBC 5.56 10^6/uL (3.93-5.22); RDW 14.3 % (11.7-14.6); RDW-SD 45.9 fL; WBC 9.52 10^3/uL (4.4-10.8)
[2022-08-14] MEDS: Omnipaque 350 MG/ML 100 ML BTL IJ (19:31)
[2022-08-14] MEDS: Normal Saline - Diluent 50 ML VIAL IV (19:32)
[2022-08-14] MEDS: Normal Saline Flush 10 ML SYR IVP (19:33)
[2022-08-14 19:38] LABS: INR 1.1 (0.9-1.1); PTT Activated 24.8 sec (21.0-27.5); Prothrombin Time 10.6 sec (9.3-11.0)
[2022-08-14 19:43] LABS: ALT 23 U/L (14-59); AST 18 U/L (15-37); Albumin 3.9 g/dL (3.4-5.0); Alkaline Phosphatase 130 U/L (46-116); Anion Gap 8.3 mmol/L (3-11); BUN 26 mg/dL (7-18); Bilirubin, Total 0.5 mg/dL (0.2-1.0); CO2 33.7 mmol/L (21.0-32.0); CREATININE 0.9 mg/dL (0.55-1.02); Calcium 9.1 mg/dL (8.5-10.1); Chloride 99 mmol/L (98-107); Estimated GFR 79.35 (mL/min/1.73m2); Glucose 96 mg/dL (74-106); Sodium 141 mmol/L (136-145); Total Protein 8.5 g/dL (6.4-8.2); Troponin I < 50 ng/L (<or=60)
[2022-08-14 19:44] LABS: Potassium 2.9 mmol/L (3.5-5.1)
[2022-08-14] MEDS: Potassium Chloride Liquid 20 MEQ PKT 40 MEQ PO (19:56)
[2022-08-14 20:02] LABS: Source Nasal/Nares
[2022-08-14] MEDS: POTASSIUM CHLORIDE 10 MEQ/100 ML BAG 100 MEQ IVPB (20:02)
[2022-08-14 20:11] LABS: Bilirubin Negative (Negative); Blood Negative (Negative); Clarity Clear (Clear); Glucose Negative (Negative); Ketones Negative (Negative); Leukocyte Esterase Negative (Negative); Nitrite Negative (Negative); Urobilinogen 0.2 EU/dL (Up TO 0.2)
[2022-08-14] MEDS: ACETAMINOPHEN 1,000 MG/100 ML BTL 400 MG (20:15)
--- NOTE | 2022-08-14 20:26 | DI.VRAD_ITS ---
PROCEDURE INFORMATION: Exam: CT Head Without Contrast Exam date and time: 08/14/2022 7:29 PM Age: 47 years old Clinical indication: Stroke-like symptoms; Right facial droop; RT upper extremity weakness; Additional info: Left facial palsy, right arm weakness TECHNIQUE: Imaging protocol: Computed tomography of the head without contrast. Other technique: STROKE PROTOCOL was implemented. COMPARISON: No relevant prior studies available. FINDINGS: Brain: There is no acute intracranial hemorrhage, mass effect or midline shift. There is no large acute territorial cerebral infarct. Cerebral ventricles: No ventriculomegaly. Paranasal sinuses: Mild mucosal thickening seen in the left maxillary sinus. Mastoid air cells: Trace fluid noted in the right mastoid air cells. Bones/joints: No acute fracture. Soft tissues: Unremarkable. IMPRESSION: No acute intracranial hemorrhage, mass effect or midline shift. If there is further clinical concern for acute infarct, MRI may be considered. ASSESSMENT: ASPECTS ([place] Stroke Program Early CT Score) is 10. PROCEDURE INFORMATION: Exam: CTA Head With Contrast, Arteriography Exam date and time: 08/14/2022 7:29 PM Age: 47 years old Clinical indication: Stroke-like symptoms; Right facial droop; RT upper extremity weakness; Additional info: Left facial palsy, right arm weakness TECHNIQUE: Imaging protocol: Computed tomographic angiography of the head with contrast. Exam focused on the arteries. 3D rendering (Not supervised by radiologist): MIP and/or 3D reconstructed images were created by the technologist. Contrast material: OMNIPAQUE 350; Contrast volume: 85 ml; Contrast route: INTRAVENOUS (IV); COMPARISON: No relevant prior studies available. FINDINGS: ANTERIOR CIRCULATION: Right internal carotid artery: Intracranial segment is patent with no significant stenosis. No aneurysm. Right middle cerebral artery: No occlusion or significant stenosis. No aneurysm. Right anterior cerebral artery: No occlusion or significant stenosis. No aneurysm. Left internal carotid artery: The left internal carotid artery shows no evidence of occlusion or significant stenosis. No aneurysm. Left middle cerebral artery: No occlusion or significant stenosis in the left MCA. No aneurysm. Left anterior cerebral artery: No occlusion or significant stenosis. No aneurysm. POSTERIOR CIRCULATION: Right vertebral artery: No occlusion or significant stenosis in the right vertebral artery. No aneurysm. Left vertebral artery: No occlusion or significant stenosis in the left vertebral artery. No aneurysm. Basilar artery: The basilar artery shows no evidence of occlusion or significant stenosis. No aneurysm. 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 No aneurysm. Left posterior cerebral artery: No occlusion or significant stenosis in the left CASE MANAGEMENT SOCIAL WORKER. No aneurysm. Brain: No definite mass, mass effect, or midline shift. Cerebral ventricles: No ventriculomegaly. Bones/joints: Unremarkable. No acute fracture. Soft tissues: Unremarkable. IMPRESSION: No large vessel occlusion or significant stenosis. PROCEDURE INFORMATION: Exam: CTA Neck With Contrast Exam date and time: 08/14/2022 7:29 PM Age: 47 years old Clinical indication: Stroke-like symptoms; Right facial droop; RT upper extremity weakness; Additional info: Left facial palsy, right arm weakness TECHNIQUE: Imaging protocol: Computed tomographic angiography of the neck with contrast. 3D rendering (Not supervised by radiologist): MIP and/or 3D reconstructed images were created by the technologist. Radiation optimization: All CT scans at this facility use at least one of these dose optimization techniques: automated exposure control; mA and/or kV adjustment per patient size (includes targeted exams where dose is matched to clinical indication); or iterative reconstruction. Contrast material: OMNIPAQUE 350; Contrast volume: 85 ml; Contrast route: INTRAVENOUS (IV); COMPARISON: No relevant prior studies available. FINDINGS: Right common carotid artery: No stenosis. No dissection or occlusion. Right internal carotid artery: No stenosis of the extracranial segment. No dissection or occlusion. Right external carotid artery: No occlusion or stenosis of the origin. Left common carotid artery: No stenosis. No dissection or occlusion. Left internal carotid artery: No stenosis of the extracranial segment. No dissection or occlusion. Left external carotid artery: No occlusion or stenosis of the origin. Right vertebral artery: No stenosis. No dissection or occlusion. Left vertebral artery: No stenosis. No dissection or occlusion. Soft tissues: Normal. No significant soft tissue swelling. Bones/joints: No acute fracture. IMPRESSION: No stenosis or occlusion. REFERENCES: NASCET CRITERIA. The degree of stenosis in the cervical segment of the internal carotid artery is based on NASCET criteria. Normal is no stenosis. Mild is less than 50% stenosis. Moderate is 50-69% stenosis. Severe is 70% to 99% stenosis. Total occlusion is no detectable patent lumen. Dictated and Authenticated by: Nneka Botello MD. Ordering:LILIA Cedeno MD
--- NOTE | 2022-08-14 20:28 | ED.PROG_ITS ---
Date of service: 08/14/22 Time of Service: 20:28 Medical Decision Making Case is signed out to me by my colleague Wilian Putnamhey. Please refer to his HPI, physical exam, assessment and plan. At time of signout we are awaiting CT imaging. CT imaging results have returned, CT/CTA demonstrates no evidence of acute process. No signs of bleed, tumor, or thrombus per virtual radiology. I did go and reassess the patient independently. Physical exam demonstrates a left-sided cranial nerve VII palsy with complete paralysis of the left side of the face and all 4 main branches. Patient also does show some evidence of ptosis on the right upper eyelid. She demonstrates both horizontal nystagmus and a very subtle vertical nystagmus for both eyes. No rotatory nystagmus. Mild horizontal diplopia. Test of skew is negative for any vertical correction, but is positive for a lateral to medial horizontal correction. No dysdiadochokinesia or dysmetria. I cannot personally detect a significant weakness between the upper extremities or lower extremities. Normal Babinski. Normal reflexes otherwise. Patient denies any tick bites, but she does admit to recently having her COVID/flu vaccine 3 to 4 days ago. I wonder if this is a causative etiology for her current nerve palsy. With her other atypical sy mptoms though, and her generalized feelings of weakness and notable fatigue I do worry that perhaps there could be some other central etiology going on any addition to the clear peripheral nerve palsy as well. Early MS is on the differential. I do feel that admission and MRI in the morning is indicated in this scenario. We will order a Lyme test. I did give the patient Solu-Medrol. I spoke with the hospitalist and Dr. Leigh will start the patient on antivirals. I did discuss lumbar puncture with the patient and she has declined this at this time after weighing the risks and benefits. She does not show clinical evidence at this time of meningeal signs or meningitis although she does have a mild headache. No neck stiffness. Negative Kernig's and Brudzinski's. Patient will be admitted for further monitoring and MRI in the morning. I have extensively reviewed the treatment plan with the patient. I have addressed all patient concerns at this time. I have also discussed the plan with the admitting physician and they agree with the current assessment and plan and have agreed to assume responsibility for the patient. All parties demonstrate verbal understanding and agreement with our assessment and plan at this time. The documentation in this chart was dictated using [employer] dictation software. Please excuse any dictation errors. FINDINGS: Lungs: No consolidation. Pleural spaces: No pleural effusion. No pneumothorax. Heart/Mediastinum: No cardiomegaly. Bones/joints: No acute fracture. Left shoulder arthroplasty partially visualized. IMPRESSION: No acute findings. Thank you for allowing us to participate in the care of your patient. Dictated and Authenticated by: Nneka Henderson MD 08/14/2022 8:28 PM Eastern Time ([place] & [place]) FINDINGS: Brain: There is no acute intracranial hemorrhage, mass effect or midline shift. There is no large acute territorial cerebral infarct. Cerebral ventricles: No ventriculomegaly. Paranasal sinuses: Mild mucosal thickening seen in the left maxillary sinus. Mastoid air cells: Trace fluid noted in the right mastoid air cells. Bones/joints: No acute fracture. Soft tissues: Unremarkable. IMPRESSION: No acute intracranial hemorrhage, mass effect or midline shift. If there is further clinical concern for acute infarct, MRI may be considered. FINDINGS: ANTERIOR CIRCULATION: Right internal carotid artery: Intracranial segment is patent with no significant stenosis. No aneurysm. Right middle cerebral artery: No occlusion or significant stenosis. No aneurysm. Right anterior cerebral artery: No occlusion or significant stenosis. No aneurysm. Left internal carotid artery: The left internal carotid artery shows no evidence of occlusion or significant stenosis. No aneurysm. Left middle cerebral artery: No occlusion or significant stenosis in the left MCA. No aneurysm. Left anterior cerebral artery: No occlusion or significant stenosis. No aneurysm. POSTERIOR CIRCULATION: Right vertebral artery: No occlusion or significant stenosis in the right vertebral artery. No aneurysm. Left vertebral artery: No occlusion or significant stenosis in the left vertebral artery. No aneurysm. Basilar artery: The basilar artery shows no evidence of occlusion or significant stenosis. No aneurysm. 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 No aneurysm. Left posterior cerebral artery: No occlusion or significant stenosis in the left DIE CASTING MACHINE OPERATOR. No aneurysm. Brain: No definite mass, mass effect, or midline shift. Cerebral ventricles: No ventriculomegaly. Bones/joints: Unremarkable. No acute fracture. Soft tissues: Unremarkable IMPRESSION: No large vessel occlusion or significant stenosis. FINDINGS: Right common carotid artery: No stenosis. No dissection or occlusion. Right internal carotid artery: No stenosis of the extracranial segment. No dissection or occlusion. Right external carotid artery: No occlusion or stenosis of the origin. Left common carotid artery: No stenosis. No dissection or occlusion. Left internal carotid artery: No stenosis of the extracranial segment. No dissection or occlusion. Left external carotid artery: No occlusion or stenosis of the origin. Right vertebral artery: No stenosis. No dissection or occlusion. Left vertebral artery: No stenosis. No dissection or occlusion. Soft tissues: Normal. No significant soft tissue swelling. Bones/joints: No acute fracture. IMPRESSION: No stenosis or occlusion. Sign Out Sign Out Data: Sign Out Comment: since yesterday has had dizziness and and left facial numbness, has left upper and lower facial paralysis and mild weakness in right hand as well numbness in the left face and mild slurred speech due to the facial droop. Pending labs and ct/cta Last updated by Wilian Castillo MD at 08/14/22 19:20 Discharge Plan Disposition Patient Disposition: STILL A PATIENT Condition: Stable Discharge Details Clinical Impression: Facial palsy Primary Care Provider: Valentin Parekh ED Provider: Shimon Horta Home Meds and New Rx's Prescriptions: No Action acetaminophen 325 mg capsule 975 mg PO Q8H PRN atorvastatin 80 mg tablet 80 mg PO DAILY clopidogrel [Plavix] 75 mg tablet 75 mg PO DAILY ferrous sulfate 325 mg (65 mg iron) tablet,delayed release (DR/EC) 325 mg PO Q OTHER DAY Tresiba FlexTouch U-200 200 unit/mL (3 mL) insulin pen 120 unit subcut DAILY losartan 25 mg tablet 25 mg PO DAILY magnesium oxide 400 mg (241.3 mg magnesium) tablet 400 mg PO BID metoprolol succinate 50 mg tablet extended release 24 hr 50 mg PO DAILY PRN nitroglycerin 0.4 mg tablet, sublingual 0.4 mg sublingual Q5M PRN Rx Instructions: do not exceed 3 doses per episode pantoprazole 20 mg tablet,delayed release (DR/EC) 20 mg PO DAILY fluticasone propion-salmeterol [Advair Diskus] 500-50 mcg/dose blister with device 1 inh inhalation BID albuterol sulfate 2.5 mg /3 mL (0.083 %) solution for nebulization 2.5 mg inhalation Q6H PRN insulin lispro [Humalog KwikPen Insulin] 100 unit/mL insulin pen 10 unit subcut QID torsemide 20 mg Tablet 20 mg PO BID methadone 10 mg/5 mL Solution 50 mg PO DAILY oxycodone 10 mg tablet 10 mg PO TID PRN (Reason: pain) Qty: 10 0RF prochlorperazine maleate [Compazine] 10 mg tablet 10 mg PO TID PRN (Reason: nausea and vomiting) Qty: 14 0RF aspirin 81 mg Tablet,Chewable 81 mg PO 1XD
--- NOTE | 2022-08-14 20:28 | DI.VRAD_ITS ---
PROCEDURE INFORMATION: Exam: XR Chest Exam date and time: 08/14/2022 7:53 PM Age: 47 years old Clinical indication: Stroke symptoms; Prior surgery; Surgery date: 6+ months; Surgery type: L shoulder TECHNIQUE: Imaging protocol: Radiologic exam of the chest. Views: 1 view. COMPARISON: CT BRAIN NECK CTA 08/14/2022 7:29 PM FINDINGS: Lungs: No consolidation. Pleural spaces: No pleural effusion. No pneumothorax. Heart/Mediastinum: No cardiomegaly. Bones/joints: No acute fracture. Left shoulder arthroplasty partially visualized. IMPRESSION: No acute findings. Dictated and Authenticated by: Nneka Botello MD. Ordering:LILIA Cedeno MD
[2022-08-14 20:34] LABS: COVID-19 PCR Negative (Negative)
[2022-08-14] MEDS: methylPREDNISolone SUCC 125 MG VIAL IVP (21:04)
--- NOTE | 2022-08-14 21:32 | HPE_ITS ---
Date of service: 08/14/22 Time of Service: 21:32 Assessment and Plan Assessment and plan (1) Facial palsy: Status: Acute Assessment and plan: Acute left 7th nerve palsy. 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 Will obtain tick panel, r/o Lymes. I cannot find reports of facial palsy accompanying COVID vaccination but the timing raises the possibility. Will begin course Valtrex and steroids. Will need ST for feeding and may need eye patch or lubricants to avoid corneal drying. Would consider MRI but will need to clear with radiology due to coronary stents. Usual meds as is otherwise. History of Present Illness History of Present Illness Chief Complaint: facial weakness Narrative: 47 female with h/o CAD, DM, HTN -- had COVID vaccine 3 days P{TA. here with 2 days of more or less sudden left sided facial weakness, manifesting with blurry vision, difficulty eating and speaking. Has had some slight headache, mainly left sided. No ear pain, no known tick bites or rash. In ER evaluation of note for comp[lete left 7th palsy. ER also reported some slight vertical nystagmus as well as possibly sopme very, very slight weakness on right, though pateint has no suc subjective symptoms. Patient given Solumedrol. Also K 2.9 noted and given K replenishment. I was asked to evaluate for admission. Patient denies visual changes (other than blurry vision left eye). No arm or leg weakness or sensory changes. Review of Systems Narrative: per HPI PFSH All Active Problems Leg wound, left (Acute) Facial palsy (Acute) Pulmonary HTN (Acute) Heart failure (Acute) 09/02/21 with IN low EF Non-STEMI (non-ST elevated myocardial infarction) (Acute) 09/02/21 Vertigo (Acute) GERD (gastroesophageal reflux disease) (Chronic) Essential hypertension (Acute) Asthma (Chronic) Depression (Chronic) PTSD (post-traumatic stress disorder) (Acute) Tobacco abuse disorder (Acute) Hypokalemia (Acute) Chronic gout (Acute) Hyperlipidemia (Acute) Diabetic peripheral neuropathy (Acute) Type 2 diabetes mellitus (Acute) Medical History COVID was vaccinated but contracted Covid 06/22 History of gastrointestinal ulcer Surgical History H/O bone graft left knee H/O shoulder surgery x4 and ending with a full replacement H/O total hysterectomy History of appendectomy History of colonoscopy History of esophagogastroduodenoscopy (EGD) gastritis with gastric ulcers Previous section x4 delivery Family History Mother Cancer Heart disease Obstructive lung disease Depression Arthritis Degeneration of intervertebral disc Father Alcohol use disorder Brother Hypertension Mood disorder Maternal Grandfather Alcohol use disorder Maternal Grandmother Breast cancer Maternal Aunt Breast cancer Paternal Aunt Breast cancer Social History Smoking/Tobacco Use Status: Current every day Tobacco Type: cigarettes Tobacco: How many years used: 34 Smoking risk assessment performed?: Yes Alcohol Intake: never Drug use: Never Substance use type: does not use Do you feel safe at home: Yes Do you feel safe in your relationship?: Yes Meds Allergies and Home Medications Allergies Allergy/AdvReac Type Severity Reaction Status Date / Time Bleach (Sodium Hypochlorite) Allergy Unknown Verified 08/14/22 18:37 mushroom Allergy Unknown Verified 08/14/22 18:37 Penicillins Allergy Unknown Verified 08/14/22 18:37 tramadol Allergy Unknown Verified 08/14/22 18:37 mold Allergy Verified 08/14/22 18:37 trazodone Allergy Unverified 08/14/22 18:37 Home Medications Medication Instructions Recorded Confirmed Type acetaminophen 325 mg capsule 975 mg PO Q8H PRN 10/18/21 08/14/22 History albuterol sulfate 2.5 mg/3 mL 2.5 mg inhalation Q6H PRN 10/18/21 08/14/22 History (0.083 %) solution for nebulization atorvastatin 80 mg tablet 80 mg PO DAILY 10/18/21 08/14/22 History clopidogrel 75 mg tablet (Plavix) 75 mg PO DAILY 10/18/21 08/14/22 History ferrous sulfate 325 mg (65 mg 325 mg PO Q OTHER DAY 10/18/21 08/14/22 History iron) tablet,delayed release fluticasone 500 mcg-salmeterol 50 1 inh inhalation BID 10/18/21 03/15/22 History mcg/dose blistr powdr for inhalation (Advair Diskus) insulin degludec 200 unit/mL (3 120 unit subcut DAILY 10/18/21 08/14/22 History mL) subcutaneous pen (Tresiba FlexTouch U-200 insulin) insulin lispro 100 unit/mL 10 unit subcut QID 10/18/21 08/14/22 History subcutaneous pen (Humalog KwikPen (U-100) Insulin) losartan 25 mg tablet 25 mg PO DAILY 10/18/21 03/15/22 History magnesium oxide 400 mg (241.3 mg 400 mg PO BID 10/18/21 08/14/22 History magnesium) tablet metoprolol succinate 50 mg 50 mg PO DAILY PRN 10/18/21 08/14/22 History tablet,extended release 24 hr nitroglycerin 0.4 mg sublingual 0.4 mg sublingual Q5M PRN 10/18/21 08/14/22 History tablet pantoprazole 20 mg tablet,delayed 20 mg PO DAILY 10/18/21 08/14/22 History release methadone 10 mg/5 mL oral solution 50 mg PO DAILY 03/15/22 08/14/22 History oxycodone 10 mg tablet 10 mg PO TID PRN pain #10 tabs 03/15/22 Rx prochlorperazine maleate 10 mg 10 mg PO TID PRN nausea and 03/15/22 08/14/22 Rx tablet (Compazine) vomiting #14 tabs torsemide 20 mg tablet 20 mg PO BID 03/15/22 03/15/22 History aspirin 81 mg chewable tablet 81 mg PO 1XD 08/14/22 08/14/22 History Exam Narrative Exam Narrative: 118/72, 75, 36.8, 16, 97% RA. HEENT atraumaticd, no lesions right pinna or EAC; neck supple; lungs clear; heart RRR; abdomen soft and NT; extremities w/o edema; neuro Ox3, lucid, CN: pupils 3-4 mm/reactive, EOMI, visual [place] full, possibly slight decreased light touch and pin on left side of face in V2 and V3 distribution; complete left sided facial palsy; motor 5/5, Results Labs Result diagrams: 08/14/22 19:20 08/14/22 19:20 Labs: Laboratory Results - last 24 hr 08/14/22 08/14/22 08/14/22 18:50 18:50 18:50 WBC Cancelled RBC Cancelled Hgb Cancelled Hct Cancelled MCV Cancelled MCH Cancelled MCHC Cancelled RDW Cancelled Plt Count Cancelled MPV Cancelled Immature Gran % Cancelled Neutrophils % Cancelled Band Neutrophils % Cancelled Lymphocytes % Cancelled Atypical Lymphs % Cancelled Monocytes % Cancelled Eosinophils % Cancelled Basophils % Cancelled Metamyelocytes % Cancelled Myelocytes % Cancelled Promyelocytes % Cancelled Other Cells % Cancelled Nucleated RBC % Cancelled Absolute Neutrophils Cancelled Absolute Lymphocytes Cancelled Absolute Monocytes Cancelled Absolute Eosinophils Cancelled Absolute Basophils Cancelled RBC Morphology Cancelled Polychromasia Cancelled Hypochromasia Cancelled Poikilocytosis Cancelled Basophilic Stippling Cancelled Anisocytosis Cancelled Microcytosis Cancelled Macrocytosis Cancelled Spherocytes Cancelled Tear Drop Cells Cancelled Ovalocytes Cancelled Stomatocytes Cancelled [place] Bodies Cancelled Fernando Cells/Echinocytes Cancelled Acanthocytes (Spur) Cancelled Schistocytes Cancelled PT Cancelled INR Cancelled APTT Cancelled Sodium Cancelled Potassium Cancelled Chloride Cancelled Carbon Dioxide Cancelled Anion Gap Cancelled BUN Cancelled Creatinine Cancelled Est GFR (CKD-EPI 2020) Cancelled Glucose Cancelled Calcium Cancelled Magnesium Cancelled Total Bilirubin Cancelled AST Cancelled ALT Cancelled Alkaline Phosphatase Cancelled Troponin I Cancelled Total Protein Cancelled Albumin Cancelled Urine Color Urine Clarity Urine pH Ur Specific [place] Urine Protein Urine Ketones Urine Blood Urine Nitrite Urine Bilirubin Urine Urobilinogen Ur Leukocyte Esterase Urine Glucose COVID-19 Source SARS-CoV-2 (PCR) 08/14/22 08/14/22 08/14/22 19:20 19:20 19:20 WBC 9.52 RBC 5.56 H Hgb 16.0 H Hct 48.2 H MCV 87 MCH 28.8 MCHC 33.2 RDW 14.3 Plt Count 301 MPV 10.2 Immature Gran % 0.2 Neutrophils % 48.5 Band Neutrophils % Lymphocytes % 35.7 Atypical Lymphs % Monocytes % 10.1 Eosinophils % 4.9 Basophils % 0.6 Metamyelocytes % Myelocytes % Promyelocytes % Other Cells % Nucleated RBC % 0.0 Absolute Neutrophils 4.61 Absolute Lymphocytes 3.40 Absolute Monocytes 0.96 H Absolute Eosinophils 0.47 Absolute Basophils 0.06 RBC Morphology Polychromasia Hypochromasia Poikilocytosis Basophilic Stippling Anisocytosis Microcytosis Macrocytosis Spherocytes Tear Drop Cells Ovalocytes Stomatocytes [place] Bodies [place] Cells/Echinocytes Acanthocytes (Spur) Schistocytes PT 10.6 INR 1.1 APTT 24.8 Sodium 141 Potassium 2.9 L Chloride 99 Carbon Dioxide 33.7 H Anion Gap 8.3 BUN 26 H Creatinine 0.9 Est GFR (CKD-EPI 2020) 79.35 Glucose 96 Calcium 9.1 Magnesium 2.0 Total Bilirubin 0.5 AST 18 ALT 23 Alkaline Phosphatase 130 H Troponin I < 50 Total Protein 8.5 H Albumin 3.9 Urine Color Urine Clarity Urine pH Ur Specific [place] Urine Protein Urine Ketones Urine Blood Urine Nitrite Urine Bilirubin Urine Urobilinogen Ur Leukocyte Esterase Urine Glucose COVID-19 Source SARS-CoV-2 (PCR) 08/14/22 08/14/22 20:00 20:00 WBC RBC Hgb Hct MCV MCH MCHC RDW Plt Count MPV Immature Gran % Neutrophils % Band Neutrophils % Lymphocytes % Atypical Lymphs % Monocytes % Eosinophils % Basophils % Metamyelocytes % Myelocytes % Promyelocytes % Other Cells % Nucleated RBC % Absolute Neutrophils Absolute Lymphocytes Absolute Monocytes Absolute Eosinophils Absolute Basophils RBC Morphology Polychromasia Hypochromasia Poikilocytosis Basophilic Stippling Anisocytosis Microcytosis Macrocytosis Spherocytes Tear Drop Cells Ovalocytes Stomatocytes [place] Bodies [place] Cells/Echinocytes Acanthocytes (Spur) Schistocytes PT INR APTT Sodium Potassium Chloride Carbon Dioxide Anion Gap BUN Creatinine Est GFR (CKD-EPI 2020) Glucose Calcium Magnesium Total Bilirubin AST ALT Alkaline Phosphatase Troponin I Total Protein Albumin Urine Color Yellow Urine Clarity Clear Urine pH 6.0 Ur Specific [place] 1.010 Urine Protein Negative Urine Ketones Negative Urine Blood Negative Urine Nitrite Negative Urine Bilirubin Negative Urine Urobilinogen 0.2 Ur Leukocyte Esterase Negative Urine Glucose Negative COVID-19 Source Nasal/Nares SARS-CoV-2 (PCR) Negative Last Vital Signs Temp 36.8 C 08/14/22 18:29 Pulse 75 08/14/22 20:16 Resp 16 08/14/22 20:16 BP 118/72 08/14/22 20:16 Pulse Ox 97 08/14/22 18:29
[2022-08-14 22:23] LABS: Troponin I < 50 ng/L (<or=60)
--- NOTE | 2022-08-15 | DI.MRI_ITS ---
Exam(s) MR BRAIN WO EXAM: MR BRAIN WO CLINICAL HISTORY: ?CVA. TECHNIQUE: Multiplanar multisequence MRI of the brain was performed. CONTRAST MATERIAL: Noncontrast. COMPARISON: CT CT BRAIN NECK CTA from 08/14/2022 FINDINGS: VENTRICLES AND EXTRA AXIAL SPACES: Normal in size and morphology for the patient's age. HEMORRHAGE: None. CEREBRAL PARENCHYMA: No focus of restricted diffusion to suggest acute infarct. No space-occupying le sj identified. MIDLINE SHIFT: None. BRAINSTEM/CEREBELLUM: Normal. CALVARIUM: Normal. VISUALIZED PARANASAL SINUSES/MASTOIDS: Minimal mucous retention left maxillary sinus. OTHER FINDINGS: Vascular flow voids are intact. Orbits and pituitary are unremarkable. IMPRESSION: Unremarkable MRI of the brain. DATA REPOSITORY:
[2022-08-15] MEDS: valACYclovir 500 MG TAB (00:33)
[2022-08-15 00:35] VITALS: BP 106/68; PULSE 80; RESP 18; TEMP 36.7; O2SAT 94
[2022-08-15] MEDS: Refresh PLUS Eye Drops 0.4ml OU ×4 (01:17→15:41)
[2022-08-15] MEDS: Nicotine 14 MG/24 HR PATCH TD ×3 (01:17→16:38)
--- NOTE | 2022-08-15 03:24 | NUR.NOTE ---
@ [id number] despite education given patient refused eye patch. stated she will ear it in the morning
[2022-08-15 06:28] LABS: Anion Gap 8.2 mmol/L (3-11); BUN 26 mg/dL (7-18); CO2 28.8 mmol/L (21.0-32.0); CREATININE 1.1 mg/dL (0.55-1.02); Calcium 9.3 mg/dL (8.5-10.1); Chloride 100 mmol/L (98-107); Estimated GFR 62.37 (mL/min/1.73m2); Glucose 299 mg/dL (74-106); Sodium 137 mmol/L (136-145)
[2022-08-15 07:22] VITALS: BP 102/62; PULSE 97; RESP 16; TEMP 36.8; O2SAT 94
[2022-08-15] MEDS: Clopidogrel 75 MG TAB PO (08:48)
[2022-08-15] MEDS: predniSONE 20 MG TAB 60 MG PO (08:48)
[2022-08-15] MEDS: Aspirin 81 MG CHEW PO (08:48)
[2022-08-15] MEDS: Ferrous Sulfate 325 MG TAB PO (08:48)
[2022-08-15] MEDS: valACYclovir 1,000 MG TAB 1000 MG PO ×2 (08:48→15:00)
[2022-08-15] MEDS: Torsemide 20 MG TAB PO ×2 (08:48→15:41)
[2022-08-15] MEDS: Magnesium Oxide 400 MG TAB PO (08:48)
[2022-08-15] MEDS: Pantoprazole 20 MG TABCR PO (08:48)
[2022-08-15] MEDS: Insulin Aspart 300 UNITS/3 ML PEN 10 UNITS SC (08:54)
[2022-08-15 09:15] VITALS: PULSE 102
[2022-08-15] MEDS: Normal Saline Flush 10 ML SYR IVP ×3 (09:56→18:29)
[2022-08-15] MEDS: Insulin Glargine 300 UNITS/3 ML PEN 50 UNITS SC (10:49)
[2022-08-15] MEDS: Metoprolol CR 50 MG TABCR PO (10:50)
[2022-08-15] MEDS: Methadone Liquid 10 MG/ML 120 MG PO (10:50)
[2022-08-15 11:17] VITALS: BP 121/71; PULSE 103; RESP 16; TEMP 36.7; O2SAT 95
[2022-08-15] MEDS: Insulin Aspart 300 UNITS/3 ML PEN SC ×2 (12:09→16:39)
--- NOTE | 2022-08-15 13:10 | W.NEUROCONSU ---
Date of service: 08/15/22 Time of Service: 12:30 Assessment and Plan Assessment and plan (1) Facial palsy: Status: Acute Assessment and plan: Ms. Monique's clinical exam and history are most consistent with a L CN VII palsy. However, she has some atypical features including numbness in the face and arm, ?subtle right arm weakness, dipolopia, headache nausea, and vertigo; though the latter could all be attributed to migraine. Thus, I recommend an MRI of the brain w/o as further work-up to look for stroke or pontine lesion - of note, she is on DAPT. A tick/Lyme panel is pending. 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 Finally, she notes continued L occipital neck pain radiating into her right druze. She notes Toradol helpful for this pain in the past. Will defer to primary team on treatment. History of Present Illness History of Present Illness Chief Complaint: face weakness Narrative: Handedness: right. HPI: Ms. Monique is a 47 year-old woman with hypertension, hyperlipidemia, DM2 with neuropathy, prior TX s/p stent x2 with most recent stent on 05/17/22 currently on DAPT, GERD, nocturnal O2, opioid dependence on methadone, depression, PTSD, gout, and asthma. On 08/13/22, Ms. Monique noticed an unusual sensation in her face. On 08/14/22, when [place] [facility] [place] in the the NICU, she noted fairly rapid development of L face weakness with difficulty speaking and eating. At the same time she noted numbness throughout her face bilaterally, palpitations, L posterior neck pain radiating into her right tempo, vertigo, and nausea. She notes blurred vision in her left eye +/- fluctuating diagonal binocular diplopia. She was brought to the [facility] ER for furhter evaluation and noted to have a L CN VII palsy. She has been started on prednisone and acycylovir. She has had the work-up as below. -CTH (08/14/22): No acute findings. I reviewed these images personally and this is my personal interpretation. -CTA head/neck (08/14/22): unremarkable. I reviewed these images personally and this is my personal interpretation. -Labs (08/14/22): Hgb 16, INR 1.1, Na 141, Cr 0.9, Glucose 96, trop x2 neg, UA neg; Lyme/Tick panel is pending Review of Systems All systems reviewed & are unremarkable except as noted in HPI and below PFSH All Active Problems (Updated 08/15/22 @ 17:45 by Brii Baeza MD) Discharge planning issues (Acute) DVT prophylaxis (Acute) Opioid dependence on agonist therapy (Acute) Leg wound, left (Acute) Facial palsy (Acute) Pulmonary HTN (Acute) Heart failure (Acute) 09/02/21 with TX low EF Non-STEMI (non-ST elevated myocardial infarction) (Acute) 09/02/21 Vertigo (Acute) GERD (gastroesophageal reflux disease) (Chronic) Essential hypertension (Acute) Asthma (Chronic) Depression (Chronic) PTSD (post-traumatic stress disorder) (Acute) Tobacco abuse disorder (Acute) Hypokalemia (Acute) Chronic gout (Acute) Hyperlipidemia (Acute) Diabetic peripheral neuropathy (Acute) Type 2 diabetes mellitus (Acute) Medical History COVID was vaccinated but contracted Covid 06/22 History of gastrointestinal ulcer Surgical History H/O bone graft left knee H/O shoulder surgery x4 and ending with a full replacement H/O total hysterectomy History of appendectomy History of colonoscopy History of esophagogastroduodenoscopy (EGD) gastritis with gastric ulcers Previous section x4 delivery Family History Mother Cancer Heart disease Obstructive lung disease Depression Arthritis Degeneration of intervertebral disc Father Alcohol use disorder Brother Hypertension Mood disorder Maternal Grandfather Alcohol use disorder Maternal Grandmother Breast cancer Maternal Aunt Breast cancer Paternal Aunt Breast cancer Social History Smoking/Tobacco Use Status: Current every day Tobacco Type: cigarettes Tobacco: How many years used: 34 Smoking risk assessment performed?: Yes Alcohol Intake: never Drug use: Never Substance use type: does not use Do you feel safe at home: Yes Do you feel safe in your relationship?: Yes Visit Medication and Allergies Active Medications Generic Name Dose Route Start Last Admin Trade Name Freq PRN Reason Stop Dose Admin Acetaminophen 975 mg 08/14/22 23:34 Acetaminophen 325 Mg Tab PO Q8H PRN PRN Albuterol Sulfate 2.5 mg 08/14/22 21:55 Albuterol 2.5 Mg/3 Ml Inh Soln Vial IH Q6H PRN PRN Aspirin 81 mg 08/15/22 08:30 08/15/22 08:48 Aspirin 81 Mg Chew PO 81 mg DAILY ALAN Administration Atorvastatin Calcium 80 mg 08/15/22 20:00 Atorvastatin 40 Mg Tab PO QPM ALAN Carboxymethylcellulose Sodium 1 - 2 each 08/15/22 00:33 08/15/22 01:17 Refresh Plus Eye Drops 0.4ml OU 2 drp Q4H PRN PRN Administration Carboxymethylcellulose Sodium 1 - 2 each 08/15/22 08:30 08/15/22 12:09 Refresh Plus Eye Drops 0.4ml OU 2 drp QID [facility] Administration Clopidogrel Bisulfate 75 mg 08/15/22 08:30 08/15/22 08:48 Clopidogrel 75 Mg Tab PO 75 mg DAILY [facility] Administration Dimethicone/Zinc Oxide 0 gm 08/14/22 21:51 Meche Protect Cream 142 Gm Tube TP PRN PRN Ferrous Sulfate 325 mg 08/15/22 08:30 08/15/22 08:48 Ferrous Sulfate 325 Mg Tab PO 325 mg Q48H ALAN Administration Gabapentin 100 mg 08/15/22 14:00 Gabapentin 100 Mg Cap PO TID [facility] Sodium Chloride 500 mls @ 0 mls/hr 08/14/22 18:43 Saline 500ml Bag IV PRN PRN As Directed IV Miscellaneous Supplies 1 each 08/14/22 18:45 Iv Access IV DIRECTED [facility] Insulin Aspart 0 units 08/15/22 12:00 08/15/22 12:09 Insulin Aspart 300 Units/3 Ml Pen SC 9 units 0800,1200,1700,2200 [facility] Administration Protocol Insulin Glargine 50 units 08/15/22 10:00 08/15/22 10:49 Insulin Glargine 300 Units/3 Ml Pen SC 50 units BID ALAN Administration Lorazepam 0.5 mg 08/15/22 13:07 Lorazepam 2 Mg/Ml Vial IVP 08/15/22 13:08 [employer] Magnesium Oxide 400 mg 08/15/22 08:30 08/15/22 08:48 Magnesium Oxide 400 Mg Tab PO 400 mg BID ALAN Administration Methadone HCl 120 mg 08/15/22 08:30 08/15/22 10:50 Methadone Liquid 10 Mg/Ml PO 120 mg DAILY ALAN Administration Metoprolol Succinate 50 mg 08/15/22 10:30 08/15/22 10:50 Metoprolol Cr 50 Mg Tabcr PO 50 mg DAILY ALAN Administration Nicotine 14 mg 08/15/22 08:30 08/15/22 08:49 Nicotine 14 Mg/24 Hr Patch TD 14 mg DAILY ALAN Administration Pantoprazole Sodium 20 mg 08/16/22 07:30 Pantoprazole 20 Mg Tabcr PO DAILY@0730 [facility] Prednisone 60 mg 08/15/22 08:30 08/15/22 08:48 Prednisone 20 Mg Tab PO 60 mg DAILY ALAN Administration Prochlorperazine Maleate 10 mg 08/14/22 21:55 Prochlorperazine 10 Mg Tab PO TID PRN PRN nausea and vomiting Sodium Chloride 0 ml 08/14/22 18:43 08/15/22 09:56 Normal Saline Flush 10 Ml Syr IVP 10 ml PRN PRN Administration Torsemide 20 mg 08/15/22 08:30 08/15/22 08:48 Torsemide 20 Mg Tab PO 20 mg BID DIURETIC ALAN Administration Valacyclovir HCl 1,000 mg 08/15/22 08:30 08/15/22 08:48 Valacyclovir 1,000 Mg Tab PO 1,000 mg TID ALAN Administration Allergies Bleach (Sodium Hypochlorite) Allergy (Unknown, Verified 08/14/22 18:37) mushroom Allergy (Unknown, Verified 08/14/22 18:37) Penicillins Allergy (Unknown, Verified 08/14/22 18:37) tramadol Allergy (Unknown, Verified 08/14/22 18:37) mold Allergy (Verified 08/14/22 18:37) trazodone Allergy (Unverified 08/14/22 18:37) Exam Narrative Exam Narrative: Physical Exam: Gen: Patient of apparent stated age, NAD Head and face: no facial or cranial abnormalities Neck: Supple, no meningismus, no occipital tenderness CV: + S1, S2, RRR, no murmur Resp: CTA B/L Abd: soft, nontender, nondistended Ext: No edema. No clubbing or cyanosis. No bony deformity. Neuro Exam: Language: fluency, naming, repetition, and comprehension intact; Mental Status: AAOx3, current events intact, fund of knowledge intact; Speech: no dysarthria Cranial nerves: Funduscopy: not performed CN II: visual stanton intact CN III, IV, : extraocular movements intact, no nystagmus, pupils symmetric and reactive to light CN V: face sensation reduced to PP in R V1 and L V2; vibration split across the forehead CN VII: L facial weakness involving forehead CN VIII: hearing intact bilaterally CN IX, X: palate rises symmetrically CN XI: trapezius/SCM 5/5 bilaterally CN XII: protrudes tongue symmetrically Sensory: reduced LT in hands bilaterally and in L arm; reduced vibration in L hemibody; joint position intact throughout Motor: bulk and tone intact. Fine motor movements intact bilaterally. Subtle R pronator drift. Strength 5/5 throughout including the deltoids, biceps, triceps, wrist extensors, hip flexors, knee flexors, knee extensors, ankle flexors, and ankle extensors. Reflexes: 2+ at the biceps, triceps, brachioradialis, patella, and achilles tendons bilaterally; toes down going bilaterally; Coordination: FTN and HTS intact bilaterally Gait: not tested Results Last Vital Signs Temp 98.1 F 08/15/22 11:17 Pulse 103 H 08/15/22 11:17 Resp 16 08/15/22 11:17 BP 121/71 08/15/22 11:17 Pulse Ox 95 08/15/22 11:17 Labs Result diagrams: 08/14/22 19:20 08/15/22 05:46 Labs: Laboratory Results - last 24 hr 08/14/22 08/14/22 08/14/22 18:50 18:50 18:50 WBC Cancelled RBC Cancelled Hgb Cancelled Hct Cancelled MCV Cancelled MCH Cancelled MCHC Cancelled RDW Cancelled Plt Count Cancelled MPV Cancelled Immature Gran % Cancelled Neutrophils % Cancelled Band Neutrophils % Cancelled Lymphocytes % Cancelled Atypical Lymphs % Cancelled Monocytes % Cancelled Eosinophils % Cancelled Basophils % Cancelled Metamyelocytes % Cancelled Myelocytes % Cancelled Promyelocytes % Cancelled Other Cells % Cancelled Nucleated RBC % Cancelled Absolute Neutrophils Cancelled Absolute Lymphocytes Cancelled Absolute Monocytes Cancelled Absolute Eosinophils Cancelled Absolute Basophils Cancelled RBC Morphology Cancelled Polychromasia Cancelled Hypochromasia Cancelled Poikilocytosis Cancelled Basophilic Stippling Cancelled Anisocytosis Cancelled Microcytosis Cancelled Macrocytosis Cancelled Spherocytes Cancelled Tear Drop Cells Cancelled Ovalocytes Cancelled Stomatocytes Cancelled [place] Bodies Cancelled Fernando Cells/Echinocytes Cancelled Acanthocytes (Spur) Cancelled Schistocytes Cancelled PT Cancelled INR Cancelled APTT Cancelled Sodium Cancelled Potassium Cancelled Chloride Cancelled Carbon Dioxide Cancelled Anion Gap Cancelled BUN Cancelled Creatinine Cancelled Est GFR (CKD-EPI 2020) Cancelled Glucose Cancelled Calcium Cancelled Magnesium Cancelled Total Bilirubin Cancelled AST Cancelled ALT Cancelled Alkaline Phosphatase Cancelled Troponin I Cancelled Total Protein Cancelled Albumin Cancelled Urine Color Urine Clarity Urine pH Ur Specific [place] Urine Protein Urine Ketones Urine Blood Urine Nitrite Urine Bilirubin Urine Urobilinogen Ur Leukocyte Esterase Urine Glucose COVID-19 Source SARS-CoV-2 (PCR) 08/14/22 08/14/22 08/14/22 19:20 19:20 19:20 WBC 9.52 RBC 5.56 H Hgb 16.0 H Hct 48.2 H MCV 87 MCH 28.8 MCHC 33.2 RDW 14.3 Plt Count 301 MPV 10.2 Immature Gran % 0.2 Neutrophils % 48.5 Band Neutrophils % Lymphocytes % 35.7 Atypical Lymphs % Monocytes % 10.1 Eosinophils % 4.9 Basophils % 0.6 Metamyelocytes % Myelocytes % Promyelocytes % Other Cells % Nucleated RBC % 0.0 Absolute Neutrophils 4.61 Absolute Lymphocytes 3.40 Absolute Monocytes 0.96 H Absolute Eosinophils 0.47 Absolute Basophils 0.06 RBC Morphology Polychromasia Hypochromasia Poikilocytosis Basophilic Stippling Anisocytosis Microcytosis Macrocytosis Spherocytes Tear Drop Cells Ovalocytes Stomatocytes [place] Bodies [place] Cells/Echinocytes Acanthocytes (Spur) Schistocytes PT 10.6 INR 1.1 APTT 24.8 Sodium 141 Potassium 2.9 L Chloride 99 Carbon Dioxide 33.7 H Anion Gap 8.3 BUN 26 H Creatinine 0.9 Est GFR (CKD-EPI 2020) 79.35 Glucose 96 Calcium 9.1 Magnesium 2.0 Total Bilirubin 0.5 AST 18 ALT 23 Alkaline Phosphatase 130 H Troponin I < 50 Total Protein 8.5 H Albumin 3.9 Urine Color Urine Clarity Urine pH Ur Specific [place] Urine Protein Urine Ketones Urine Blood Urine Nitrite Urine Bilirubin Urine Urobilinogen Ur Leukocyte Esterase Urine Glucose COVID-19 Source SARS-CoV-2 (PCR) 08/14/22 08/14/22 08/14/22 20:00 20:00 21:40 WBC RBC Hgb Hct MCV MCH MCHC RDW Plt Count MPV Immature Gran % Neutrophils % Band Neutrophils % Lymphocytes % Atypical Lymphs % Monocytes % Eosinophils % Basophils % Metamyelocytes % Myelocytes % Promyelocytes % Other Cells % Nucleated RBC % Absolute Neutrophils Absolute Lymphocytes Absolute Monocytes Absolute Eosinophils Absolute Basophils RBC Morphology Polychromasia Hypochromasia Poikilocytosis Basophilic Stippling Anisocytosis Microcytosis Macrocytosis Spherocytes Tear Drop Cells Ovalocytes Stomatocytes [place] Bodies [place] Cells/Echinocytes Acanthocytes (Spur) Schistocytes PT INR APTT Sodium Potassium Chloride Carbon Dioxide Anion Gap BUN Creatinine Est GFR (CKD-EPI 2020) Glucose Calcium Magnesium Total Bilirubin AST ALT Alkaline Phosphatase Troponin I < 50 Total Protein Albumin Urine Color Yellow Urine Clarity Clear Urine pH 6.0 Ur Specific [place] 1.010 Urine Protein Negative Urine Ketones Negative Urine Blood Negative Urine Nitrite Negative Urine Bilirubin Negative Urine Urobilinogen 0.2 Ur Leukocyte Esterase Negative Urine Glucose Negative COVID-19 Source Nasal/Nares SARS-CoV-2 (PCR) Negative 08/15/22 05:46 WBC RBC Hgb Hct MCV MCH MCHC RDW Plt Count MPV Immature Gran % Neutrophils % Band Neutrophils % Lymphocytes % Atypical Lymphs % Monocytes % Eosinophils % Basophils % Metamyelocytes % Myelocytes % Promyelocytes % Other Cells % Nucleated RBC % Absolute Neutrophils Absolute Lymphocytes Absolute Monocytes Absolute Eosinophils Absolute Basophils RBC Morphology Polychromasia Hypochromasia Poikilocytosis Basophilic Stippling Anisocytosis Microcytosis Macrocytosis Spherocytes Tear Drop Cells Ovalocytes Stomatocytes [place] Bodies [place] Cells/Echinocytes Acanthocytes (Spur) Schistocytes PT INR APTT Sodium 137 Potassium 4.0 D Chloride 100 Carbon Dioxide 28.8 Anion Gap 8.2 BUN 26 H Creatinine 1.1 H Est GFR (CKD-EPI 2020) 62.37 Glucose 299 H Calcium 9.3 Magnesium Total Bilirubin AST ALT Alkaline Phosphatase Troponin I Total Protein Albumin Urine Color Urine Clarity Urine pH Ur Specific [place] Urine Protein Urine Ketones Urine Blood Urine Nitrite Urine Bilirubin Urine Urobilinogen Ur Leukocyte Esterase Urine Glucose COVID-19 Source SARS-CoV-2 (PCR)
[2022-08-15] MEDS: LORazepam 2 MG/ML VIAL 0.5 MG IVP (14:11)
--- NOTE | 2022-08-15 14:58 | PDOC.CMIN ---
- If Service Date Differs Date of service: 08/15/22 Time of Service: 14:58 Care Management Initial Assess REASON FOR HOSPITALIZATION:: Acute left 7th nerve palsy PAST MEDICAL HISTORY/PAST SURGICAL HISTORY:: All Active Problems . Leg wound, left (Acute). Facial palsy (Acute). Pulmonary HTN (Acute). Heart failure (Acute). 09/02/21 with [place] low EF. Non-STEMI (non-ST elevated myocardial infarction) (Acute). 09/02/21. Vertigo (Acute). GERD (gastroesophageal reflux disease) (Chronic). Essential hypertension (Acute). Asthma (Chronic). Depression (Chronic). PTSD (post-traumatic stress disorder) (Acute). Tobacco abuse disorder (Acute). Hypokalemia (Acute). Chronic gout (Acute). Hyperlipidemia (Acute). Diabetic peripheral neuropathy (Acute). Type 2 diabetes mellitus (Acute). Medical History . COVID. was vaccinated but contracted Covid 06/22. History of gastrointestinal ulcer. Surgical History . H/O bone graft. left knee. H/O shoulder surgery. x4 and ending with a full replacement. H/O total hysterectomy. History of appendectomy. History of colonoscopy. History of esophagogastroduodenoscopy (EGD). gastritis with gastric ulcers. Previous section. x4 delivery PREVIOUS FUNCTIONAL STATUS/SOCIAL/FAMILY SUPPORTS:: Aracelis lives in [place] with her kids. She is unemployed and on SSDI due to her health decline. Aracelis does not drive and uses [employer] for transportation. Aracelis has [facility] HH RN and [employer] SH[employer] services. Her MATERIAL HAND[employer] 1ST SHIFT through the A is [place]. Carol recently got her set up with assisted living care and camera mechanic services through [facility]. Per December, she has over $12,000 in caregiver services to use through [facility] in 2021. CURRENT FUNCTIONAL STATUS:: Aracelis was sitting up in bed when CAREN met with her. She is awake, alert and easily engages in conversation. Aracelis would like to see if she could get a Urine Drug Screen? It doesn't appear that a UDS was done on admission, CM will review request with provider. ADVANCE DIRECTIVES:: None on file. Has patient been provided with info about the portal/API?: Yes Did the patient sign up for the portal?: No CODE STATUS:: Full Code INSURANCE COVERAGE / FINANCIAL ISSUES:: Medicaid. Medicare CURRENT HOME/COMMUNITY SERVICES/EQUIPMENT:: [place]/ [place] [facility] RN and MATERIAL HAND[employer] 1ST SHIFT(Carol). Assisted living care and camera mechanic services through [facility]. SSDI. FELIZ(Kishan) PRIMARY CARE PHYSICIAN:: Valentin Parekh POTENTIAL DISCHARGE NEEDS:: Resumption of [facility] and [facility] RN/[employer] 1[employer] SH[employer] services. Outpatient follow up appointments with PCP, Cardiology and Neurology (if indicated). Last dose letter/TRINI PATIENT/FAMILY EDUCATION NEEDS:: Review discharge instructions, limitations, medications and plan to follow up with community providers. Discuss ask me three and goals of self care. TRANSPORTATION:: via [facility] private vehicle. PLAN:: Anticipate, Aracelis will discharge home via private [facility] private vehicle. She will resume [place] RN/[employer] 1[employer] SHIFT and Services through [facility]. Aracelis will follow up with her PCP and outpatient Neurology (if indicated). Aracelis reports that she's already scheduled with [facility] on 08/22/22. CAREN will continue to follow.
[2022-08-15] MEDS: Gabapentin 100 MG CAP PO (15:00)
[2022-08-15 15:02] VITALS: PULSE 90
[2022-08-15 15:05] VITALS: BP 127/71; PULSE 80; RESP 16; TEMP 36.9; O2SAT 94
--- NOTE | 2022-08-15 17:37 | W.PM.PROGNOT ---
Date of Service Date of service: 08/15/22 Time of Service: 17:37 Assessment and Plan Assessment and plan (1) Facial palsy: Status: Acute Assessment and plan: L side. Continue prednisone + valtrex. The patient is on high dose neurontin at home - would resume that. Ok to add toradol for pain while inpatient. Anticipate discharge home tomorrow. (2) Heart failure: Status: Acute (3) Pulmonary HTN: Status: Acute (4) Opioid dependence on agonist therapy: Status: Acute (5) DVT prophylaxis: Status: Acute (6) Discharge planning issues: Status: Acute Subjective Subjective Interval history since last seen: C/o severe neck pain. States her L facial weakness feels worse. States her left eye is burning and won't close. L hand is numb too. Denies dizziness, chest pain now, shortness of breath, nausea. States that she normally takes neurontin 600 mg in am, 600 mg at noon, and 1200 mg at night. Requests toradol for pain, understanding that there is an interaction with her medications and that this is only for a couple of doses. Exam Narrative Exam Narrative: General: Pleasant obese female who is A&Ox3, anxious HEENT: L facial weakness, unable to close L eye, MMM Heart: RRR, no m/r/g Lungs: CTAB Abdomen: soft, nontender, nondistended Extremities: trace edema BLEs Objective Last Vital Signs Temp 36.9 C 08/15/22 15:05 Pulse 80 08/15/22 15:05 Resp 16 08/15/22 15:05 BP 127/71 08/15/22 15:05 Pulse Ox 94 08/15/22 15:05 Laboratory Results - last 24 hr 08/14/22 08/14/22 08/14/22 18:50 18:50 18:50 WBC Cancelled RBC Cancelled Hgb Cancelled Hct Cancelled MCV Cancelled MCH Cancelled MCHC Cancelled RDW Cancelled Plt Count Cancelled MPV Cancelled Immature Gran % Cancelled Neutrophils % Cancelled Band Neutrophils % Cancelled Lymphocytes % Cancelled Atypical Lymphs % Cancelled Monocytes % Cancelled Eosinophils % Cancelled Basophils % Cancelled Metamyelocytes % Cancelled Myelocytes % Cancelled Promyelocytes % Cancelled Other Cells % Cancelled Nucleated RBC % Cancelled Absolute Neutrophils Cancelled Absolute Lymphocytes Cancelled Absolute Monocytes Cancelled Absolute Eosinophils Cancelled Absolute Basophils Cancelled RBC Morphology Cancelled Polychromasia Cancelled Hypochromasia Cancelled Poikilocytosis Cancelled Basophilic Stippling Cancelled Anisocytosis Cancelled Microcytosis Cancelled Macrocytosis Cancelled Spherocytes Cancelled Tear Drop Cells Cancelled Ovalocytes Cancelled Stomatocytes Cancelled [place] Bodies Cancelled [place] Cells/Echinocytes Cancelled Acanthocytes (Spur) Cancelled Schistocytes Cancelled PT Cancelled INR Cancelled APTT Cancelled Sodium Cancelled Potassium Cancelled Chloride Cancelled Carbon Dioxide Cancelled Anion Gap Cancelled BUN Cancelled Creatinine Cancelled Est GFR (CKD-EPI 2020) Cancelled Glucose Cancelled Calcium Cancelled Magnesium Cancelled Total Bilirubin Cancelled AST Cancelled ALT Cancelled Alkaline Phosphatase Cancelled Troponin I Cancelled Total Protein Cancelled Albumin Cancelled Urine Color Urine Clarity Urine pH Ur Specific [place] Urine Protein Urine Ketones Urine Blood Urine Nitrite Urine Bilirubin Urine Urobilinogen Ur Leukocyte Esterase Urine Glucose COVID-19 Source SARS-CoV-2 (PCR) 08/14/22 08/14/22 08/14/22 19:20 19:20 19:20 WBC 9.52 RBC 5.56 H Hgb 16.0 H Hct 48.2 H MCV 87 MCH 28.8 MCHC 33.2 RDW 14.3 Plt Count 301 MPV 10.2 Immature Gran % 0.2 Neutrophils % 48.5 Band Neutrophils % Lymphocytes % 35.7 Atypical Lymphs % Monocytes % 10.1 Eosinophils % 4.9 Basophils % 0.6 Metamyelocytes % Myelocytes % Promyelocytes % Other Cells % Nucleated RBC % 0.0 Absolute Neutrophils 4.61 Absolute Lymphocytes 3.40 Absolute Monocytes 0.96 H Absolute Eosinophils 0.47 Absolute Basophils 0.06 RBC Morphology Polychromasia Hypochromasia Poikilocytosis Basophilic Stippling Anisocytosis Microcytosis Macrocytosis Spherocytes Tear Drop Cells Ovalocytes Stomatocytes [place] Bodies Fernando Cells/Echinocytes Acanthocytes (Spur) Schistocytes PT 10.6 INR 1.1 APTT 24.8 Sodium 141 Potassium 2.9 L Chloride 99 Carbon Dioxide 33.7 H Anion Gap 8.3 BUN 26 H Creatinine 0.9 Est GFR (CKD-EPI 2020) 79.35 Glucose 96 Calcium 9.1 Magnesium 2.0 Total Bilirubin 0.5 AST 18 ALT 23 Alkaline Phosphatase 130 H Troponin I < 50 Total Protein 8.5 H Albumin 3.9 Urine Color Urine Clarity Urine pH Ur Specific [place] Urine Protein Urine Ketones Urine Blood Urine Nitrite Urine Bilirubin Urine Urobilinogen Ur Leukocyte Esterase Urine Glucose COVID-19 Source SARS-CoV-2 (PCR) 08/14/22 08/14/22 08/14/22 20:00 20:00 21:40 WBC RBC Hgb Hct MCV MCH MCHC RDW Plt Count MPV Immature Gran % Neutrophils % Band Neutrophils % Lymphocytes % Atypical Lymphs % Monocytes % Eosinophils % Basophils % Metamyelocytes % Myelocytes % Promyelocytes % Other Cells % Nucleated RBC % Absolute Neutrophils Absolute Lymphocytes Absolute Monocytes Absolute Eosinophils Absolute Basophils RBC Morphology Polychromasia Hypochromasia Poikilocytosis Basophilic Stippling Anisocytosis Microcytosis Macrocytosis Spherocytes Tear Drop Cells Ovalocytes Stomatocytes [place] Bodies [place] Cells/Echinocytes Acanthocytes (Spur) Schistocytes PT INR APTT Sodium Potassium Chloride Carbon Dioxide Anion Gap BUN Creatinine Est GFR (CKD-EPI 2020) Glucose Calcium Magnesium Total Bilirubin AST ALT Alkaline Phosphatase Troponin I < 50 Total Protein Albumin Urine Color Yellow Urine Clarity Clear Urine pH 6.0 Ur Specific [place] 1.010 Urine Protein Negative Urine Ketones Negative Urine Blood Negative Urine Nitrite Negative Urine Bilirubin Negative Urine Urobilinogen 0.2 Ur Leukocyte Esterase Negative Urine Glucose Negative COVID-19 Source Nasal/Nares SARS-CoV-2 (PCR) Negative 08/15/22 05:46 WBC RBC Hgb Hct MCV MCH MCHC RDW Plt Count MPV Immature Gran % Neutrophils % Band Neutrophils % Lymphocytes % Atypical Lymphs % Monocytes % Eosinophils % Basophils % Metamyelocytes % Myelocytes % Promyelocytes % Other Cells % Nucleated RBC % Absolute Neutrophils Absolute Lymphocytes Absolute Monocytes Absolute Eosinophils Absolute Basophils RBC Morphology Polychromasia Hypochromasia Poikilocytosis Basophilic Stippling Anisocytosis Microcytosis Macrocytosis Spherocytes Tear Drop Cells Ovalocytes Stomatocytes [place] Bodies [place] Cells/Echinocytes Acanthocytes (Spur) Schistocytes PT INR APTT Sodium 137 Potassium 4.0 D Chloride 100 Carbon Dioxide 28.8 Anion Gap 8.2 BUN 26 H Creatinine 1.1 H Est GFR (CKD-EPI 2020) 62.37 Glucose 299 H Calcium 9.3 Magnesium Total Bilirubin AST ALT Alkaline Phosphatase Troponin I Total Protein Albumin Urine Color Urine Clarity Urine pH Ur Specific [place] Urine Protein Urine Ketones Urine Blood Urine Nitrite Urine Bilirubin Urine Urobilinogen Ur Leukocyte Esterase Urine Glucose COVID-19 Source SARS-CoV-2 (PCR) Objective Narrative Objective Narrative: MRI brain: Unremarkable MRI of the brain.
--- NOTE | 2022-08-15 17:46 | DSE_ITS ---
Date of service: 08/15/22 Time of Service: 17:46 DS: Diagnosis Discharge Diagnosis (1) Facial palsy: Status: Acute (2) Heart failure: Status: Acute (3) Pulmonary HTN: Status: Acute (4) Opioid dependence on agonist therapy: Status: Acute Discharge Plan Disposition Patient Disposition: HOME Condition: Stable Discharge Details Reason For Visit: 7th Nerve Palsy Admit Date/Time: 08/14/22 21:51 Admit Provider: Valentin Leigh Attending Provider: Valentin Leigh Primary Care Provider: Valentin Parekh Hospital Course Hospital Course: Ms Monique is a 47 year old female with PMHx with h/o CAD s/p stents, CHF, IDDM2, HTN, hyperlipidemia, opioid dependence on methadone, who was observed on [facility] hospitalist service from 08/14/22 until 08/15/22 having presented with L facial palsy having received her COVID vaccine booster 3 days prior to presentation. The patient was started prednisone and valacyclovir. The patient evaluated by neurology and ruled out for a CVA with a negative MRI, which we felt was necessary to do since she had atypical symptoms. The patient is having significant neck pain. For this, she received toradol in the hospital and is being discharged home with neurontin (5 day supply since she had run out of it at home). She is being discharged home with a prescription for 1 week of valtrex and prednisone. She is to follow up with her PCP. Her tick studies are still pending, but it is likely that her facial palsy is a reaction to COVID-19 booster. Care for patient as well as completion of her discharge summary took 45 minutes. Home Meds and New Rx's Prescriptions: New Refresh Lacri-Lube 56.8-42.5 % Ointment 1 applic OU BID Qty: 7 0RF valacyclovir 1 gram Tablet 1,000 mg PO TID Qty: 20 0RF prednisone 20 mg Tablet 60 mg PO DAILY Qty: 18 0RF carboxymethylcellulose sodium [Refresh Plus] 0.5 % Dropperette 1 drp OU QID Qty: 50 0RF Continued acetaminophen 325 mg capsule 975 mg PO Q8H PRN atorvastatin 80 mg tablet 80 mg PO DAILY clopidogrel [Plavix] 75 mg tablet 75 mg PO DAILY ferrous sulfate 325 mg (65 mg iron) tablet,delayed release (DR/EC) 325 mg PO Q OTHER DAY Tresiba FlexTouch U-200 200 unit/mL (3 mL) insulin pen 120 unit subcut DAILY magnesium oxide 400 mg (241.3 mg magnesium) tablet 400 mg PO BID metoprolol succinate 50 mg tablet extended release 24 hr 50 mg PO DAILY PRN nitroglycerin 0.4 mg tablet, sublingual 0.4 mg sublingual Q5M PRN Rx Instructions: do not exceed 3 doses per episode pantoprazole 20 mg tablet,delayed release (DR/EC) 20 mg PO DAILY fluticasone propion-salmeterol [Advair Diskus] 500-50 mcg/dose blister with device 1 inh inhalation BID albuterol sulfate 2.5 mg /3 mL (0.083 %) solution for nebulization 2.5 mg inhalation Q6H PRN insulin lispro [Humalog KwikPen Insulin] 100 unit/mL insulin pen 10 unit subcut QID methadone 10 mg/5 mL Solution 120 mg PO DAILY prochlorperazine maleate [Compazine] 10 mg tablet 10 mg PO TID PRN (Reason: nausea and vomiting) Qty: 14 0RF aspirin 81 mg Tablet,Chewable 81 mg PO 1XD furosemide 20 mg Tablet 20 mg PO DAILY gabapentin 600 mg Tablet 600 mg PO DIRECTED Qty: 20 0RF Rx Instructions: 600 mg PO q am and at noon; 1200 mg PO Qpm Discharge Instructions Instructions: Prednisone (By mouth), Valacyclovir (By mouth), Mcnulty Palsy (DC) Additional Instructions: Finish your prednisone and valacyclovir as prescribed. Return to the hospital with any fever, bleeding, chest pain, shortness of breath. Follow up with your PCP in 1-2 weeks. Stand Alone Forms: Nursing Discharge Form Referrals: Valentin Parekh [Primary Care Provider] - (Please call Monday for an Appointment in the next 2 weeks ) Activity:: Activity as Tolerated Equipment/Supplies:: No Equipment Needed Diet:: carb consistent heart healthy Discharge Orders Discharge Orders: Discharge Order (Routine); Ordered 08/15/22 Ordered By: Brii Baeza DS: Summary Time Spent with Patient providing and/or coordinating discharge services: Greater than 30 minutes Status at Discharge Functional status at discharge: independent ambulation Overall status at discharge: patient is not back to baseline Mental Status: mental status grossly normal Speech and Movement: speech and movement normal Mood: congruent mood Affect: normal affect Exam Narrative Exam Narrative: General: Pleasant obese female who is A&Ox3, anxious HEENT: L facial weakness, unable to close L eye, MMM Heart: RRR, no m/r/g Lungs: CTAB Abdomen: soft, nontender, nondistended Extremities: trace edema BLEs Psych Mental Status: mental status grossly normal Speech and Movement: speech and movement normal Mood: congruent mood Affect: normal affect DS: Data Vitals/I&O Vitals and I&O: Vital Signs Temperature 36.9 C 08/15/22 15:05 Temperature Source Tympanic 08/15/22 15:05 Pulse 80 08/15/22 15:05 Pulse Rhythm Regular 08/15/22 08:45 Pulse 87 08/14/22 23:10 Respiratory Rate 16 08/15/22 15:05 Respiratory Effort Non-Labored 08/15/22 08:45 Respiratory Depth Normal 08/14/22 23:35 Respiratory Pattern Normal 08/14/22 23:35 Blood Pressure 127/71 08/15/22 15:05 Blood Pressure Mean 78 08/14/22 23:00 Pulse Oximetry 94 08/15/22 15:05 Oxygen Delivery Method Room Air 08/15/22 15:05 Oxygen Flow Rate 0 08/15/22 15:05 End Tidal Co2 8 08/14/22 18:29 Pain Level 6 08/15/22 15:05 Comment prn oxygen at home - uses at night 08/14/22 18:29 Intake & Output 08/14/22 08/15/22 08/15/22 23:59 11:59 23:59 Intake Total 110 / 110 600 / 720 120 / 720 Balance 110 / 110 600 / 720 120 / 720 Weight 81.647 kg Intake: IV 110 / 110 Oral 600 / 720 120 / 720 Other: Urine Color Yellow Urine Appearance Clear Clear Urine Odor None Comment Patient independent in the room, uses bathroom as needed. Voiding Methods Toilet Data Completed and Pending Completed studies during hospitalization [Text1]: CXR; No acute? findings. CTA head/neck: 1. Normal CTA examination of the [place]. 2. Unremarkable CT Head. 3. Normal CTA examination of the neck.? No significant carotid plaque.? No evidence of dissection. Brain MRI: Unremarkable MRI of the brain. Labs on day of discharge: Labs from last 24 hours 08/15/22 08/14/22 08/14/22 05:46 21:40 21:40 WBC RBC Hgb Hct MCV MCH MCHC RDW Plt Count MPV Immature Gran % Neutrophils % Band Neutrophils % Lymphocytes % Atypical Lymphs % Monocytes % Eosinophils % Basophils % Metamyelocytes % Myelocytes % Promyelocytes % Other Cells % Nucleated RBC % Absolute Neutrophils Absolute Lymphocytes Absolute Monocytes Absolute Eosinophils Absolute Basophils RBC Morphology Polychromasia Hypochromasia Poikilocytosis Basophilic Stippling Anisocytosis Microcytosis Macrocytosis Spherocytes Tear Drop Cells Ovalocytes Stomatocytes [place] Bodies [place] Cells/Echinocytes Acanthocytes (Spur) Schistocytes PT INR APTT Sodium 137 Potassium 4.0 D Chloride 100 Carbon Dioxide 28.8 Anion Gap 8.2 BUN 26 H Creatinine 1.1 H Est GFR (CKD-EPI 2020) 62.37 Glucose 299 H Calcium 9.3 Magnesium Total Bilirubin AST ALT Alkaline Phosphatase Troponin I < 50 Total Protein Albumin Urine Color Urine Clarity Urine pH Ur Specific [place] Urine Protein Urine Ketones Urine Blood Urine Nitrite Urine Bilirubin Urine Urobilinogen Ur Leukocyte Esterase Urine Glucose A.phagocytophil DNA PCR Pending B. divergens/MO-1 PCR Pending Babesia duncani (PCR) Pending Babesia microti DNA PCR Pending Borrelia (PCR) Pending Lyme Disease Antibody Pending COVID-19 Source SARS-CoV-2 (PCR) E.chaffeensis DNA (PCR) Pending E.ewingii/canis DNA PCR Pending E. muris-like DNA (PCR) Pending 08/14/22 08/14/22 08/14/22 20:00 20:00 19:20 WBC RBC Hgb Hct MCV MCH MCHC RDW Plt Count MPV Immature Gran % Neutrophils % Band Neutrophils % Lymphocytes % Atypical Lymphs % Monocytes % Eosinophils % Basophils % Metamyelocytes % Myelocytes % Promyelocytes % Other Cells % Nucleated RBC % Absolute Neutrophils Absolute Lymphocytes Absolute Monocytes Absolute Eosinophils Absolute Basophils RBC Morphology Polychromasia Hypochromasia Poikilocytosis Basophilic Stippling Anisocytosis Microcytosis Macrocytosis Spherocytes Tear Drop Cells Ovalocytes Stomatocytes [place] Bodies [place] Cells/Echinocytes Acanthocytes (Spur) Schistocytes PT 10.6 INR 1.1 APTT 24.8 Sodium Potassium Chloride Carbon Dioxide Anion Gap BUN Creatinine Est GFR (CKD-EPI 2020) Glucose Calcium Magnesium Total Bilirubin AST ALT Alkaline Phosphatase Troponin I Total Protein Albumin Urine Color Yellow Urine Clarity Clear Urine pH 6.0 Ur Specific [place] 1.010 Urine Protein Negative Urine Ketones Negative Urine Blood Negative Urine Nitrite Negative Urine Bilirubin Negative Urine Urobilinogen 0.2 Ur Leukocyte Esterase Negative Urine Glucose Negative A.phagocytophil DNA PCR B. divergens/MO-1 PCR Babesia duncani (PCR) Babesia microti DNA PCR Borrelia (PCR) Lyme Disease Antibody COVID-19 Source Nasal/Nares SARS-CoV-2 (PCR) Negative E.chaffeensis DNA (PCR) E.ewingii/canis DNA PCR E. muris-like DNA (PCR) 08/14/22 08/14/22 08/14/22 19:20 19:20 18:50 WBC 9.52 RBC 5.56 H Hgb 16.0 H Hct 48.2 H MCV 87 MCH 28.8 MCHC 33.2 RDW 14.3 Plt Count 301 MPV 10.2 Immature Gran % 0.2 Neutrophils % 48.5 Band Neutrophils % Lymphocytes % 35.7 Atypical Lymphs % Monocytes % 10.1 Eosinophils % 4.9 Basophils % 0.6 Metamyelocytes % Myelocytes % Promyelocytes % Other Cells % Nucleated RBC % 0.0 Absolute Neutrophils 4.61 Absolute Lymphocytes 3.40 Absolute Monocytes 0.96 H Absolute Eosinophils 0.47 Absolute Basophils 0.06 RBC Morphology Polychromasia Hypochromasia Poikilocytosis Basophilic Stippling Anisocytosis Microcytosis Macrocytosis Spherocytes Tear Drop Cells Ovalocytes Stomatocytes [place] Bodies [place] Cells/Echinocytes Acanthocytes (Spur) Schistocytes PT Cancelled INR Cancelled APTT Cancelled Sodium 141 Potassium 2.9 L Chloride 99 Carbon Dioxide 33.7 H Anion Gap 8.3 BUN 26 H Creatinine 0.9 Est GFR (CKD-EPI 2020) 79.35 Glucose 96 Calcium 9.1 Magnesium 2.0 Total Bilirubin 0.5 AST 18 ALT 23 Alkaline Phosphatase 130 H Troponin I < 50 Total Protein 8.5 H Albumin 3.9 Urine Color Urine Clarity Urine pH Ur Specific [place] Urine Protein Urine Ketones Urine Blood Urine Nitrite Urine Bilirubin Urine Urobilinogen Ur Leukocyte Esterase Urine Glucose A.phagocytophil DNA PCR B. divergens/MO-1 PCR Babesia duncani (PCR) Babesia microti DNA PCR Borrelia (PCR) Lyme Disease Antibody COVID-19 Source SARS-CoV-2 (PCR) E.chaffeensis DNA (PCR) E.ewingii/canis DNA PCR E. muris-like DNA (PCR) 08/14/22 08/14/22 18:50 18:50 WBC Cancelled RBC Cancelled Hgb Cancelled Hct Cancelled MCV Cancelled MCH Cancelled MCHC Cancelled RDW Cancelled Plt Count Cancelled MPV Cancelled Immature Gran % Cancelled Neutrophils % Cancelled Band Neutrophils % Cancelled Lymphocytes % Cancelled Atypical Lymphs % Cancelled Monocytes % Cancelled Eosinophils % Cancelled Basophils % Cancelled Metamyelocytes % Cancelled Myelocytes % Cancelled Promyelocytes % Cancelled Other Cells % Cancelled Nucleated RBC % Cancelled Absolute Neutrophils Cancelled Absolute Lymphocytes Cancelled Absolute Monocytes Cancelled Absolute Eosinophils Cancelled Absolute Basophils Cancelled RBC Morphology Cancelled Polychromasia Cancelled Hypochromasia Cancelled Poikilocytosis Cancelled Basophilic Stippling Cancelled Anisocytosis Cancelled Microcytosis Cancelled Macrocytosis Cancelled Spherocytes Cancelled Tear Drop Cells Cancelled Ovalocytes Cancelled Stomatocytes Cancelled [place] Bodies Cancelled [place] Cells/Echinocytes Cancelled Acanthocytes (Spur) Cancelled Schistocytes Cancelled PT INR APTT Sodium Cancelled Potassium Cancelled Chloride Cancelled Carbon Dioxide Cancelled Anion Gap Cancelled BUN Cancelled Creatinine Cancelled Est GFR (CKD-EPI 2020) Cancelled Glucose Cancelled Calcium Cancelled Magnesium Cancelled Total Bilirubin Cancelled AST Cancelled ALT Cancelled Alkaline Phosphatase Cancelled Troponin I Cancelled Total Protein Cancelled Albumin Cancelled Urine Color Urine Clarity Urine pH Ur Specific [place] Urine Protein Urine Ketones Urine Blood Urine Nitrite Urine Bilirubin Urine Urobilinogen Ur Leukocyte Esterase Urine Glucose A.phagocytophil DNA PCR B. divergens/MO-1 PCR Babesia duncani (PCR) Babesia microti DNA PCR Borrelia (PCR) Lyme Disease Antibody COVID-19 Source SARS-CoV-2 (PCR) E.chaffeensis DNA (PCR) E.ewingii/canis DNA PCR E. muris-like DNA (PCR) PFSH All Active Problems (Updated 08/15/22 @ 17:45 by Brii Baeza MD) Discharge planning issues (Acute) DVT prophylaxis (Acute) Opioid dependence on agonist therapy (Acute) Leg wound, left (Acute) Facial palsy (Acute) Pulmonary HTN (Acute) Heart failure (Acute) 09/02/21 with [place] low EF Non-STEMI (non-ST elevated myocardial infarction) (Acute) 09/02/21 Vertigo (Acute) GERD (gastroesophageal reflux disease) (Chronic) Essential hypertension (Acute) Asthma (Chronic) Depression (Chronic) PTSD (post-traumatic stress disorder) (Acute) Tobacco abuse disorder (Acute) Hypokalemia (Acute) Chronic gout (Acute) Hyperlipidemia (Acute) Diabetic peripheral neuropathy (Acute) Type 2 diabetes mellitus (Acute) Medical History COVID was vaccinated but contracted Covid 06/22 History of gastrointestinal ulcer Surgical History H/O bone graft left knee H/O shoulder surgery x4 and ending with a full replacement H/O total hysterectomy History of appendectomy History of colonoscopy History of esophagogastroduodenoscopy (EGD) gastritis with gastric ulcers Previous section x4 delivery Family History Mother Cancer Heart disease Obstructive lung disease Depression Arthritis Degeneration of intervertebral disc Father Alcohol use disorder Brother Hypertension Mood disorder Maternal Grandfather Alcohol use disorder Maternal Grandmother Breast cancer Maternal Aunt Breast cancer Paternal Aunt Breast cancer Social History Smoking/Tobacco Use Status: Current every day Tobacco Type: cigarettes Tobacco: How many years used: 34 Smoking risk assessment performed?: Yes Alcohol Intake: never Drug use: Never Substance use type: does not use Do you feel safe at home: Yes Do you feel safe in your relationship?: Yes
--- NOTE | 2022-08-15 18:07 | NUR.NOTE ---
1805: Call placed to [facility] telepharmacy to inform of orders for a med rec consult order
[2022-08-15] MEDS: Ketorolac 15 MG/ML VIAL IVP (18:29)
[2022-08-16 10:23] LABS: Lyme Ab w Rflx to Lyme Confirm Negative (Negative)
[2022-08-18 16:54] LABS: Anaplasma phagocytophilum Negative (Negative); B. miyamotoi PCR Negative (Negative); Babesia divergens/MO-1 Negative (Negative); Babesia duncani Negative (Negative); Babesia microti Negative (Negative); Ehrlichia chaffeensis Negative (Negative); Ehrlichia ewingii/canis Negative (Negative); Ehrlichia muris eauclairensis Negative (Negative)
== END 2022-08-15 18:56 | disposition home or self-care (01) ==
LOC: ER 20:51 → MS 08-15 05:04
PROVIDERS: Emergency Medicine; Admitting Provider General Practice; Emergency Provider Student in an Organized Health Care Education/Training Program; PCP Family Medicine; Visit Provider General Practice
DX: G51.0 Bell's palsy (principal); R51.9 Headache, unspecified; R47.81 Slurred speech; R20.0 Anesthesia of skin; R00.2 Palpitations; R42 Dizziness and giddiness; I27.20 Pulmonary hypertension, unspecified; I50.9 Heart failure, unspecified; E11.42 Type 2 diabetes mellitus with diabetic polyneuropathy; F11.20 Opioid dependence, uncomplicated; I25.10 Atherosclerotic heart disease of native coronary artery without angina pectoris; Z95.5 Presence of coronary angioplasty implant and graft; R29.705 NIHSS score 5; I25.2 Old myocardial infarction; K21.9 Gastro-esophageal reflux disease without esophagitis; J45.909 Unspecified asthma, uncomplicated; F32.A Depression, unspecified; F17.210 Nicotine dependence, cigarettes, uncomplicated; M1A.9XX0 Chronic gout, unspecified, without tophus (tophi); E78.5 Hyperlipidemia, unspecified; I11.0 Hypertensive heart disease with heart failure; M54.2 Cervicalgia; Z20.822 Contact with and (suspected) exposure to COVID-19
CPT/HCPCS: 36415; 36416; 70496; 70498; 80048; 80053; 82962; 87635; 87798; 93005; 96365; 96372; 96374; 96375; 99220; 99285; 70551; 71045; 81003; 83735; 84484; 85025; 85610; 85730; 86618; 93010; 99217; 99219; G0378; J0131; J0780; J1885; J2060; J2930; J3480; J3490; J7512

== ENCOUNTER 2022-10-28 07:23 | Observation (INO) | payer MEDICARE, MEDICAID, SELFPAY ==
[2022-10-28] VITALS (95 sets, daily range): BP systolic 79–127; BP diastolic 47–93; PULSE 67–140; RESP 8–33; TEMP 36.5–37; O2SAT 87–97
--- NOTE | 2022-10-28 | DI.MRI_ITS ---
Exam(s) MR BRAIN WO/W EXAM: MR BRAIN WO/W CLINICAL HISTORY: new onset seizures TECHNIQUE: Multiplanar multisequence MRI of the brain was performed. CONTRAST MATERIAL: IV Contrast: 16 mL of Dotarem contrast administered. COMPARISON: MR MR BRAIN WO from 08/15/[address] HEAD WO from 10/28/2022 FINDINGS: The examination is limited due to patient motion artifact. VENTRICLES AND EXTRA AXIAL SPACES: Normal in size and morphology for the patient's age. HEMORRHAGE: None. CEREBRAL PARENCHYMA: No focus of restricted diffusion to suggest acute infarct. No space-occupying le sj identified. There are few nonspecific scattered foci of hyperintense signal in the white matter on the T2 and FLAIR images. MIDLINE SHIFT: None. BRAINSTEM/CEREBELLUM: Normal. CALVARIUM: Normal. ENHANCEMENT: No suspicious enhancement identified. VISUALIZED PARANASAL SINUSES/MASTOIDS: There is mucous retention cyst and mucosal thickening in the l eft maxillary sinus. The remaining visualized paranasal sinuses are clear. The mastoid air cells ar e clear. [place]: Normal flow void. [place]: Unremarkable. OTHER FINDINGS: IMPRESSION: 1. No intracranial mass or enhancing lesion. 2. No evidence of an acute infarct. DATA REPOSITORY:
--- NOTE | 2022-10-28 07:30 | RT.EKG_ITS ---
APPROVED REPORT Exam: Resting ECG Reason for Exam: DIZZINESS Patient Location: E HR:96 bpm ECG Measurements Heart Rate 96 AXIS SC 175 P 61 QRSd 102 QRS 47 QT 425 T 77 QTc 536 Conclusion Sinus rhythm...normal P axis, V-rate 60- 99 Anterior infarct, old...Q >40mS, abnormal ST-T, V2-V5 Prolonged QT interval...QTc >510mS
--- NOTE | 2022-10-28 08:15 | DI.RAD_ITS ---
Exam(s) XR HAND LT COMPLETE EXAM: XR HAND LT COMPLETE CLINICAL HISTORY: fell 2 days ago, pain dorsal. TECHNIQUE: 2D digital imaging was performed of the left hand. Three views were obtained. AP, later al and oblique views were obtained. COMPARISON: No exams were available for comparison FINDINGS: BONES: There is an acute nondisplaced fracture through the medial aspect of the base of the proximal phalanx of the index finger. No bony destructive lesion is seen. JOINTS: No dislocation present. SOFT TISSUE: There is soft tissue swelling of the index finger. IMPRESSION: Acute nondisplaced fracture through the base of the proximal phalanx of the index finger with associa vannesa soft tissue swelling. DATA REPOSITORY: RADIATION DOSE DELIVERED:
--- NOTE | 2022-10-28 08:27 | ED.GENADUL_ITS ---
Discharge Plan Disposition Patient Disposition: Admit to [facility] Condition: Serious Discharge Details Clinical Impression: Syncopal episodes, Acute hypokalemia, Observed seizure-like activity Primary Care Provider: Valentin Parekh ED Provider: Carlos Jimenes Home Meds and New Rx's Prescriptions: No Action acetaminophen 325 mg capsule 975 mg PO Q8H PRN atorvastatin 80 mg tablet 80 mg PO DAILY clopidogrel [Plavix] 75 mg tablet 75 mg PO DAILY ferrous sulfate 325 mg (65 mg iron) tablet,delayed release (DR/EC) 325 mg PO Q OTHER DAY Tresiba FlexTouch U-200 200 unit/mL (3 mL) insulin pen 120 unit subcut DAILY magnesium oxide 400 mg (241.3 mg magnesium) tablet 400 mg PO BID metoprolol succinate 50 mg tablet extended release 24 hr 50 mg PO DAILY PRN nitroglycerin 0.4 mg tablet, sublingual 0.4 mg sublingual Q5M PRN Rx Instructions: do not exceed 3 doses per episode pantoprazole 20 mg tablet,delayed release (DR/EC) 20 mg PO DAILY fluticasone propion-salmeterol [Advair Diskus] 500-50 mcg/dose blister with device 1 inh inhalation BID albuterol sulfate 2.5 mg /3 mL (0.083 %) solution for nebulization 2.5 mg inhalation Q6H PRN insulin lispro [Humalog KwikPen Insulin] 100 unit/mL insulin pen 10 unit subcut QID methadone 10 mg/5 mL Solution 120 mg PO DAILY prochlorperazine maleate [Compazine] 10 mg tablet 10 mg PO TID PRN (Reason: nausea and vomiting) Qty: 14 0RF aspirin 81 mg Tablet,Chewable 81 mg PO 1XD furosemide 20 mg Tablet 20 mg PO DAILY Refresh Lacri-Lube 56.8-42.5 % Ointment 1 applic OU BID Qty: 7 0RF prednisone 20 mg Tablet 60 mg PO DAILY Qty: 18 0RF gabapentin 600 mg Tablet 600 mg PO DIRECTED Qty: 20 0RF Rx Instructions: 600 mg PO q am and at noon; 1200 mg PO Qpm carboxymethylcellulose sodium [Refresh Plus] 0.5 % Dropperette 1 drp OU QID Qty: 50 0RF Soothe Night Time Lubricant 80-20 % ointment 1 applic ophthalmic (eye) 4-6XD PRNQty: 3.5 0RF Medical Decision Making 834 -- 47-year-old female female with history of ischemic cardiomyopathy LVEF 39%, coronary artery disease with PCI to RCA 2020 and LAD/RCA 2, here with left hand injury and pain with swelling and tenderness dorsal 1st-3rd metacarpals. Patient has had continued intermittent syncopal episodes since discharge from [facility] on 10/20/2022. Concern for hand fracture. Plan to obtain x-ray. I will place lidocaine patch. Patient requesting additional analgesia. Patient is on methadone which she received today. She has been taking Tylenol and acetaminophen which she took today. I will treat with single dose of oxycodone 5 mg. Patient provided informed consent for this treatment. EKG was reviewed and interpreted by me: Please report, prolonged QTC. I have contacted [facility] transfer center to discuss case with [facility] cardiology regarding ongoing syncope. We will check labs to assess for electrolyte abnormalities including chemistry and magnesium as well as troponin. 935 --left hand x-ray interpreted by me: Fracture of the base of the second proximal phalanx. Digit was splinted with volar fiberglass splint by me. Patient neurovascular intact post splint application. -- Spoke with Dr. Baeza, discussed ED position course, she will admit the patient for continued observation -- Patient had episode where she suddenly felt confused and then seemed to be minimally responsive with some spasm of her extremities. This was witnessed. Did not appear to be typical tonic-clonic seizure. Per nursing, patient did respond verbally during the episode. Immediately following the acute episode she seemed more confused. Consider seizure. Fingerstick normal. I will give Keppra 1 g. I updated hospitalist who recommended further work-up for seizure. CT of the head was obtained and interpreted by radiology as negative. -- I called [facility] to request transfer to neurology service as we do not currently have the ability to do EEG in-house. I spoke with Dr. Leon, discussed ED presentation and course, she agrees with prophylactic treatment with Keppra. [facility] does not have immediate bed availability and she recommends admission and treatment until stabilized and can be sent for outpatient EEG. I also spoke with [facility] who is at capacity cannot accept the patient. I spoke again with Dr. Baeza who will admit the patient. Lab Data Lab results reviewed: Yes I reviewed the patient's lab results. Labs: Laboratory Tests Range/Units 10/28/22 10/28/22 10/28/22 08:21 08:21 08:55 WBC (4.4-10.8) 10^3/uL RBC (3.93-5.22) 10^6/uL Hgb (11.2-15.7) g/dL Hct (36.0-46.0) % MCV (80-95) fL MCH (27.0-33.0) pg MCHC (32.0-36.0) % RDW (11.7-14.6) % Plt Count (130-400) 10^3/uL MPV (8.0-11.0) fL Immature Gran % Neutrophils % Lymphocytes % Monocytes % Eosinophils % Basophils % Nucleated RBC % (0.0-0.3) % Absolute Neutrophils (1.2-6.7) 10^3/uL Absolute Lymphocytes (1.2-3.4) 10^3/uL Absolute Monocytes (0.1-0.8) 10^3/uL Absolute Eosinophils (0.0-0.7) 10^3/uL Absolute Basophils (0.0-0.2) 10^3/uL Sodium (136-145) mmol/L 142 Potassium (3.5-5.1) mmol/L 2.6 L* Chloride (98-107) mmol/L 99 Carbon Dioxide (21.0-32.0) mmol/L 37.6 H Anion Gap (3-11) mmol/L 5.4 BUN (7-18) mg/dL 21 H Creatinine (0.55-1.02) mg/dL 0.9 Est GFR (CKD-EPI 2020) (mL/min/1.73m2) 79.35 Glucose (74-106) mg/dL 117 H Calcium (8.5-10.1) mg/dL 9.4 Magnesium (1.8-2.4) mg/dL Troponin I (<or=60) ng/L < 50 Urine Color (Yellow) Yellow Urine Clarity (Clear) Clear Urine pH (5-8) 7.0 Ur Specific [place] (1.005-1.025) 1.020 Urine Protein (Negative) mg/dL Negative Urine Ketones (Negative) mg/dL Negative Urine Blood (Negative) Negative Urine Nitrite (Negative) Negative Urine Bilirubin (Negative) Negative Urine Urobilinogen (Up TO 0.2) EU/dL 0.2 Ur Leukocyte Esterase (Negative) Negative Urine Glucose (Negative) mg/dL 500 H Urine Opiates Screen (Negative) Negative Urine Methadone Screen (Negative) Positive A Ur Barbiturates Screen (Negative) Negative Ur Tricyclics Screen (Negative) Negative Ur Amphetamines Screen (Negative) Negative U Benzodiazepines Scrn (Negative) Negative Urine Cocaine Screen (Negative) Negative Ur THC Screen (Negative) Negative Range/Units 10/28/22 10/28/22 08:55 08:55 WBC (4.4-10.8) 10^3/uL 9.73 RBC (3.93-5.22) 10^6/uL 4.90 Hgb (11.2-15.7) g/dL 14.7 Hct (36.0-46.0) % 44.0 MCV (80-95) fL 90 MCH (27.0-33.0) pg 30.0 MCHC (32.0-36.0) % 33.4 RDW (11.7-14.6) % 14.9 H Plt Count (130-400) 10^3/uL 330 MPV (8.0-11.0) fL 10.2 Immature Gran % 0.2 Neutrophils % 52.0 Lymphocytes % 32.0 Monocytes % 9.8 Eosinophils % 5.5 Basophils % 0.5 Nucleated RBC % (0.0-0.3) % 0.0 Absolute Neutrophils (1.2-6.7) 10^3/uL 5.06 Absolute Lymphocytes (1.2-3.4) 10^3/uL 3.11 Absolute Monocytes (0.1-0.8) 10^3/uL 0.95 H Absolute Eosinophils (0.0-0.7) 10^3/uL 0.54 Absolute Basophils (0.0-0.2) 10^3/uL 0.05 Sodium (136-145) mmol/L Potassium (3.5-5.1) mmol/L Chloride (98-107) mmol/L Carbon Dioxide (21.0-32.0) mmol/L Anion Gap (3-11) mmol/L BUN (7-18) mg/dL Creatinine (0.55-1.02) mg/dL Est GFR (CKD-EPI 2020) (mL/min/1.73m2) Glucose (74-106) mg/dL Calcium (8.5-10.1) mg/dL Magnesium (1.8-2.4) mg/dL 2.5 H Troponin I (<or=60) ng/L Urine Color (Yellow) Urine Clarity (Clear) Urine pH (5-8) Ur Specific [place] (1.005-1.025) Urine Protein (Negative) mg/dL Urine Ketones (Negative) mg/dL Urine Blood (Negative) Urine Nitrite (Negative) Urine Bilirubin (Negative) Urine Urobilinogen (Up TO 0.2) EU/dL Ur Leukocyte Esterase (Negative) Urine Glucose (Negative) mg/dL Urine Opiates Screen (Negative) Urine Methadone Screen (Negative) Ur Barbiturates Screen (Negative) Ur Tricyclics Screen (Negative) Ur Amphetamines Screen (Negative) U Benzodiazepines Scrn (Negative) Urine Cocaine Screen (Negative) Ur THC Screen (Negative) HPI General Mode of arrival: ambulatory . Date/Time Provider Initiated Documentation: 10/28/22 08:05 . Limitations to Documentation: no limitations . Information obtained by: patient . HPI Narrative: 47-year-old female presents with chief complaint of left hand pain. Patient has known history of ischemic cardiomyopathy with frequent syncopal episodes. She notes she had a syncopal episode 2 days ago and injured her hand. She is unsure as to how she injured it. Pain is moderate to severe and worse with any movement of the hand and on palpation of her dorsal hand. She has no associated numbness or tingling. No other injury sustained during a fall. She has had a subsequent syncopal episode yesterday. Patient notes she was recently admitted to [facility] for syncope and discharged on 10/20/2022 with plan for further outpatient work-up. Related Data Home Medications Medication Instructions Recorded Confirmed acetaminophen 325 mg capsule 975 mg PO Q8H PRN 10/18/21 10/28/22 albuterol sulfate 2.5 mg/3 mL 2.5 mg inhalation Q6H PRN 10/18/21 10/28/22 (0.083 %) solution for nebulization atorvastatin 80 mg tablet 80 mg PO DAILY 10/18/21 10/28/22 clopidogrel 75 mg tablet (Plavix) 75 mg PO DAILY 10/18/21 10/28/22 ferrous sulfate 325 mg (65 mg 325 mg PO Q OTHER DAY 10/18/21 10/28/22 iron) tablet,delayed release fluticasone 500 mcg-salmeterol 50 1 inh inhalation BID 10/18/21 10/28/22 mcg/dose blistr powdr for inhalation (Advair Diskus) insulin degludec 200 unit/mL (3 120 unit subcut DAILY 10/18/21 10/28/22 mL) subcutaneous pen (Tresiba FlexTouch U-200 insulin) insulin lispro 100 unit/mL 10 unit subcut QID 10/18/21 10/28/22 subcutaneous pen (Humalog KwikPen (U-100) Insulin) magnesium oxide 400 mg (241.3 mg 400 mg PO BID 10/18/21 10/28/22 magnesium) tablet metoprolol succinate 50 mg 50 mg PO DAILY PRN 10/18/21 10/28/22 tablet,extended release 24 hr nitroglycerin 0.4 mg sublingual 0.4 mg sublingual Q5M PRN 10/18/21 10/28/22 tablet pantoprazole 20 mg tablet,delayed 20 mg PO DAILY 10/18/21 10/28/22 release methadone 10 mg/5 mL oral solution 120 mg PO DAILY 03/15/22 10/28/22 prochlorperazine maleate 10 mg 10 mg PO TID PRN nausea and 03/15/22 10/28/22 tablet (Compazine) vomiting #14 tabs aspirin 81 mg chewable tablet 81 mg PO 1XD 08/14/22 10/28/22 carboxymethylcellulose sodium 0.5 1 drp OU QID #50 ea 08/15/22 10/28/22 % eye drops in a dropperette (Refresh Plus) furosemide 20 mg tablet 20 mg PO DAILY 08/15/22 10/28/22 gabapentin 600 mg tablet 600 mg PO DIRECTED #20 tabs 08/15/22 10/28/22 prednisone 20 mg tablet 60 mg PO DAILY #18 tabs 08/15/22 10/28/22 white petrolatum-mineral oil 56.8 1 applic OU BID #7 grams 08/15/22 10/28/22 %-42.5 % eye ointment (Refresh Lacri-Lube) white petrolatum-mineral oil 80 1 applic ophthalmic (eye) 4-6XD 08/15/22 10/28/22 %-20 % eye ointment (Soothe Night PRN #3.5 grams Time Lubricant) Previous Rx's Medication Instructions Recorded prochlorperazine maleate 10 mg 10 mg PO TID PRN nausea and 03/15/22 tablet (Compazine) vomiting #14 tabs carboxymethylcellulose sodium 0.5 1 drp OU QID #50 ea 08/15/22 % eye drops in a dropperette (Refresh Plus) gabapentin 600 mg tablet 600 mg PO DIRECTED #20 tabs 08/15/22 prednisone 20 mg tablet 60 mg PO DAILY #18 tabs 08/15/22 white petrolatum-mineral oil 56.8 1 applic OU BID #7 grams 08/15/22 %-42.5 % eye ointment (Refresh Lacri-Lube) white petrolatum-mineral oil 80 1 applic ophthalmic (eye) 4-6XD 08/15/22 %-20 % eye ointment (Soothe Night PRN #3.5 grams Time Lubricant) Allergies Allergy/AdvReac Type Severity Reaction Status Date / Time Bleach (Sodium Hypochlorite) Allergy Unknown Verified 10/28/22 08:01 mushroom Allergy Unknown Verified 10/28/22 08:01 Penicillins Allergy Unknown Verified 10/28/22 08:01 tramadol Allergy Unknown Verified 10/28/22 08:01 mold Allergy Verified 10/28/22 08:01 trazodone Allergy Unverified 10/28/22 08:01 General Stated Complaint: Orthopedic SHANIA: 3 Review of Systems Constitutional Constitutional: Denies fever(s) Cardiovascular Cardiovascular: Denies chest pain Musculoskeletal Musculoskeletal: Reports as per HPI PFSH All Active Problems (Updated 10/28/22 @ 13:27 by Carlos Jimenes MD) Syncopal episodes (Chronic) Acute hypokalemia (Acute) Observed seizure-like activity (Acute) Opioid dependence on agonist therapy (Acute) Leg wound, left (Acute) Facial palsy (Acute) Pulmonary HTN (Acute) Heart failure (Acute) 09/02/21 with GA low EF Non-STEMI (non-ST elevated myocardial infarction) (Acute) 09/02/21 Vertigo (Acute) GERD (gastroesophageal reflux disease) (Chronic) Essential hypertension (Acute) Asthma (Chronic) Depression (Chronic) PTSD (post-traumatic stress disorder) (Acute) Tobacco abuse disorder (Acute) Hypokalemia (Acute) Chronic gout (Acute) Hyperlipidemia (Acute) Diabetic peripheral neuropathy (Acute) Type 2 diabetes mellitus (Acute) Medical History COVID was vaccinated but contracted Covid 06/22 History of gastrointestinal ulcer Surgical History H/O bone graft left knee H/O shoulder surgery x4 and ending with a full replacement H/O total hysterectomy History of appendectomy History of colonoscopy History of esophagogastroduodenoscopy (EGD) gastritis with gastric ulcers Previous section x4 delivery Family History Mother Cancer Heart disease Obstructive lung disease Depression Arthritis Degeneration of intervertebral disc Father Alcohol use disorder Brother Hypertension Mood disorder Maternal Grandfather Alcohol use disorder Maternal Grandmother Breast cancer Maternal Aunt Breast cancer Paternal Aunt Breast cancer Social History Smoking/Tobacco Use Status: Current every day Tobacco Type: cigarettes Tobacco: How many years used: 34 Smoking risk assessment performed?: Yes Alcohol Intake: current Alcohol Intake frequency: holidays/special occasions only Alcohol type: beer Drug use: Never Substance use type: does not use Do you feel safe at home: Yes Do you feel safe in your relationship?: Yes Exam Const General: cooperative and no acute distress HENMT Mouth: moist mucous membranes Eyes Conjunctivae: normal conjunctivae Sclera: normal sclerae Resp Auscultation: clear to auscultation bilaterally, no rales, no rhonchi and no wheezes Cardio Rate: regular rate and not tachycardic Rhythm: regular rhythm GI Palpation: soft and nontender Skin General skin exam: no rashes or lesions noted Neuro General: patient alert, patient awake and tone normal Extrem General: no edema Left upper extremity: hand Details: tenderness Location: of the dorsal hand Location: over the 1st metacarpal, over the 2nd metacarpal and over the 3rd metacarpal, abnormal ROM of finger Details: pain with active ROM and swelling Location: of the dorsal hand Course Vital Signs Vital signs: Vital Signs Temperature 36.5 C 10/28/22 07:31 Pulse 99 H 10/28/22 07:31 Respiratory Rate 18 10/28/22 07:31 Blood Pressure 109/64 10/28/22 07:31 Pulse Oximetry 96 10/28/22 07:31 Temperature 36.5 C 10/28/22 07:31 Temperature Source Temporal Artery Scan 10/28/22 07:31 Pulse 99 H 10/28/22 07:31 Respiratory Rate 18 10/28/22 07:31 Respiratory Effort 10/28/22 07:54 Blood Pressure 109/64 10/28/22 07:31 Blood Pressure Position Sitting 10/28/22 07:31 Pulse Oximetry 95 10/28/22 08:10 Oxygen Delivery Method Room Air 10/28/22 07:31 Oxygen Flow Rate 0 10/28/22 07:31 Pain Level 9 10/28/22 07:51 Comment 10/28/22 08:10 Lab/Test Results Lab/Test Results: POC- Test(urine) Negative
[2022-10-28] MEDS: oxyCODONE 5 MG TAB PO ×2 (08:44→10:00)
[2022-10-28] MEDS: Lidocaine 5% Patch 1 PATCH TP (08:45)
[2022-10-28 09:09] LABS: Abs Immature Grans 0.02 10^3/uL (0.0-0.06); Absolute Basophil Count 0.05 10^3/uL (0.0-0.2); Absolute Eosinophil Count 0.54 10^3/uL (0.0-0.7); Absolute Lymphocyte Count 3.11 10^3/uL (1.2-3.4); Absolute Monocyte Count 0.95 10^3/uL (0.1-0.8); Absolute Neutrophil Count 5.06 10^3/uL (1.2-6.7); Basophils % 0.5; Eosinophils % 5.5; HGB 14.7 g/dL (11.2-15.7); Immature Grans % 0.2; MCHC 33.4 % (32.0-36.0); MCV 90 fL (80-95); MPV 10.2 fL (8.0-11.0); Monocytes % 9.8; Platelet Count 330 10^3/uL (130-400); RDW 14.9 % (11.7-14.6); RDW-SD 49.2 fL; WBC 9.73 10^3/uL (4.4-10.8)
[2022-10-28 09:09] LABS: Bilirubin Negative (Negative); Blood Negative (Negative); Clarity Clear (Clear); Glucose 500 mg/dL (Negative); Ketones Negative (Negative); Leukocyte Esterase Negative (Negative); Nitrite Negative (Negative); Urobilinogen 0.2 EU/dL (Up TO 0.2)
[2022-10-28 09:17] LABS: Magnesium 2.5 mg/dL (1.8-2.4)
[2022-10-28 09:30] LABS: Anion Gap 5.4 mmol/L (3-11); BUN 21 mg/dL (7-18); CO2 37.6 mmol/L (21.0-32.0); CREATININE 0.9 mg/dL (0.55-1.02); Calcium 9.4 mg/dL (8.5-10.1); Chloride 99 mmol/L (98-107); Estimated GFR 79.35 (mL/min/1.73m2); Glucose 117 mg/dL (74-106); Sodium 142 mmol/L (136-145); Troponin I < 50 ng/L (<or=60)
[2022-10-28 09:38] LABS: Potassium 2.6 mmol/L (3.5-5.1)
[2022-10-28] MEDS: Normal Saline 250 ML IV (09:50)
[2022-10-28] MEDS: POTASSIUM CHLORIDE 20 MEQ/100 ML BAG 50 MEQ IVPB ×2 (10:01→22:15)
[2022-10-28 10:13] LABS: *AMPHETAMINES SCREEN URINE Negative (Negative); *BARBITURATES SCREEN URINE Negative (Negative); *BENZODIAZEPINES SCREEN URINE Negative (Negative); Cannabinoids THC Negative (Negative); Cocaine Screen,Urine Negative (Negative); METHADONE URINE SCREEN Positive (Negative); OPIATES URINE SCREEN Negative (Negative)
[2022-10-28 10:16] LABS: Tricyclic Antidepressants Negative (Negative)
--- NOTE | 2022-10-28 10:45 | DI.CT_ITS ---
Exam(s) CT HEAD WO EXAM: CT HEAD WO CLINICAL HISTORY: new seizurelike activity. TECHNIQUE: Imaging Protocol: Axial computed tomography images with coronal and sagittal reformatted images were created and reviewed COMPARISON: CT CT BRAIN NECK CTA from 08/14/2022 FINDINGS: Ventricles and Extra axial spaces: Normal in size and morphology for the patient's age. Hemorrhage: None. Cerebral parenchyma: Normal. Midline shift: None. Brainstem/Cerebellum: Normal. Calvarium: Normal. Visualized Paranasal sinuses/Mastoids: Clear. Soft Tissues: Unremarkable. IMPRESSION: No acute intracranial process. RADIATION DOSE DELIVERED: 818.64mGy.cm Total DLP DATA REPOSITORY: All CT scans at this facility are submitted to the National Radiology Data Registry (NRDR) Dose Index Registry (DIR) with the [employer] ([employer]). RADIATION OPTIMIZATION: All CT scans at this facility use at least one of these dose optimization te chniques: automated exposure control; mA and/or kV adjustment per patient size (includes targeted exa ms where dose is matched to clinical indication); or iterative reconstruction.
--- NOTE | 2022-10-28 10:52 | NUR.NOTE ---
Nursing Note: Called ED for report. ED provider said that they are putting admission on hold d/t seizure in ED.
[2022-10-28] MEDS: levETIRAcetam 1,000 MG in Normal Saline 100 ML 400 MG IVPB (11:10)
[2022-10-28] MEDS: Nicotine 14 MG/24 HR PATCH TD (12:32)
[2022-10-28] MEDS: Lactated Ringers 500 ML IV (13:23)
--- NOTE | 2022-10-28 15:03 | NUR.NOTE ---
Nursing Note: pt to MRI via stretcher, report recieved from Twyla RN, care assumed.
[2022-10-28] MEDS: LORazepam 2 MG/ML VIAL 1 MG IVP (15:38)
--- NOTE | 2022-10-28 15:39 | NUR.NOTE ---
Nursing Note: This nurse to DI per request to medicate IV ativan d/t increased anxiety r/t MRI exam. Pt sitting up on MRI stretcher states I can't do this without medicine, I need something to relax IV ativan given as ordered, pt aware to not get up unassisted and to alert staff of any changes. MRI staff aware of medication adminsitration.
[2022-10-28] MEDS: Normal Saline Flush 10 ML SYR IVP (15:44)
[2022-10-28] MEDS: Gadoterate meglumine 20 ML VIAL 16 ML IVP (15:45)
--- NOTE | 2022-10-28 16:22 | NUR.NOTE ---
Nursing Note: Pt return from DI via stretcher, resting w/eyes closed, VS done, no new complaints, awaiting room assignment for admission, cont. to monitor.
--- NOTE | 2022-10-28 16:55 | DI.VRAD_ITS ---
PROCEDURE INFORMATION: Exam: MR Head Without and With Contrast Exam date and time: 10/28/2022 3:36 PM Age: 47 years old Clinical indication: Seizure TECHNIQUE: Imaging protocol: Magnetic resonance imaging of the head without and with contrast. Contrast material: DOTAREM; Contrast volume: 16 ml; Contrast route: INTRAVENOUS (IV); COMPARISON: CT HEAD WO 10/28/2022 11:42 AM FINDINGS: Limitations: Motion artifact does slightly limit the sensitivity of this examination. Brain: No acute infarct. No acute intracranial hemorrhage, mass effect or midline shift. No evidence of intracranial mass or abnormal enhancement. Cerebral ventricles: Normal. No ventriculomegaly. Bones/joints: Unremarkable. Paranasal sinuses: There is mild mucosal thickening in the left maxillary sinus and bilateral ethmoid sinuses. Mastoid air cells: There trace fluid in the right mastoid air cells. Orbital cavities: Unremarkable. Soft tissues: Unremarkable. IMPRESSION: 1. No acute infarct or intracranial hemorrhage. 2. No evidence of intracranial mass abnormal enhancement. Dictated and Authenticated by: Nenka Botello MD. Ordering:RIGOBERTO Teresa MD
[2022-10-28] MEDS: Enoxaparin 40 MG/0.4 ML SYR SC (17:20)
--- NOTE | 2022-10-28 18:45 | HPE_ITS ---
Date of service: 10/28/22 Time of Service: 18:45 Assessment and Plan Assessment and plan (1) Observed seizure-like activity: Status: Acute Assessment and plan: Obtain VBG to ensure no CO2 retention/myoclonus. I think it would also be important to ensure the patient is not hypoxic during these events. Tele monitoring. Zen. The patient will still need to wear a Zio patch. She will need to follow up with outpatient neurology (unavailable at our facility) and will need an outpatient EEG. (2) Episode of unresponsiveness: Status: Acute Assessment and plan: As above (3) Acute hypokalemia: Status: Acute Assessment and plan: Replete, recheck in am (4) Fracture of finger, left: Status: Acute Assessment and plan: S/p splinting. Follow up with ortho as outpatient. (5) Chronic respiratory failure with hypoxia: Status: Chronic Assessment and plan: Continue home oxygen. Will ask RT to look into the CPAP situation. Will order CPAP for her here tonight. (6) Hallucinations: Status: Acute Assessment and plan: Obtain a mental health consult. Suspect a stress reaction to having the children taken. (7) Obstructive sleep apnea: Status: Chronic Assessment and plan: As above. Trial CPAP tongiht. (8) Type 2 diabetes mellitus: Status: Chronic Assessment and plan: Continue home basal bolus insulin. (9) Ischemic cardiomyopathy: Status: Acute Assessment and plan: At baseline. LVEF of 39%. Continue home therapy. (10) Chronic systolic CHF (congestive heart failure): Status: Chronic Assessment and plan: Euvolemic. As above. (11) DVT prophylaxis: Status: Acute Assessment and plan: Sc enoxaparin (12) Discharge planning issues: Status: Acute Assessment and plan: Full code as discussed with the patient Consult mental health History of Present Illness History of Present Illness Chief Complaint: I fell and maybe hit my head. I've been falling. Narrative: Ms Monique is a 47 year old female with PMHx of CAD s/p stents, ICMO/chronic systolic CHF w/ LVEF of 39%, RAQUEL (w/ difficulty obtaining an outpatient CPAP), chronic hypoxic respiratory failure on home O2, IDDM2, who presented to [facility] ED today reporting 2 episodes of LOC, one 2 days ago and one yesterday. She did fall and fracture her 2nd phalanx of her L hand during her syncopal episode 2 days ago (per ER provider), for which she ended up getting splinted today. The patient is very somnolent and has difficulty providing this part of her history, falling asleep midsentence and sometimes midword. She thinks she may have hit her head yesterday during an episode. She states when these episodes happen, she feels tired afterwards, all over. She denies tongue biting or incontinence. She was observed at [facility] for similar episodes 10/18/22-10/20/22. Her workup at that time was negative, but she was supposed to follow up for a zio patch, which has not yet happened. Today, she had a similar episode while in the ED, which was accompanied by convulsive activity - she was on a panel monitor at that time and did not have a cardiac arrhythmia. Her BG was not low. She was somnolent afterwards. Concern was raised for new onset seizures. The patient had a negative CT of the head and a negative MRI. No beds were available at either [facility] or [facility] for further neurologic workup. Hospitalist admission here was requ ested. The patient was recommended by neurology to be loaded with keppra. The patient also describes to me having auditory hallucinations - ever since her children were taken away from her. The hallucinations are of children's voices. She is open to talking to mental health. The patient states that she also has had episodes that she describes as weird and strange where she slips from a dream-like state into wakefullness, but thinks she is still dreaming. She does have a sleep doctor and has not been wearing a CPAP because one has not been able to be arranged. Review of Systems All systems reviewed & are unremarkable except as noted in HPI and below PFSH All Active Problems (Updated 10/28/22 @ 19:39 by Brii Baeza MD) Episode of unresponsiveness (Acute) Discharge planning issues (Acute) DVT prophylaxis (Acute) Chronic systolic CHF (congestive heart failure) (Chronic) Ischemic cardiomyopathy (Acute) Obstructive sleep apnea (Chronic) Hallucinations (Acute) Chronic respiratory failure with hypoxia (Chronic) Fracture of finger, left (Acute) Syncopal episodes (Chronic) Acute hypokalemia (Acute) Observed seizure-like activity (Acute) Opioid dependence on agonist therapy (Acute) Leg wound, left (Acute) Facial palsy (Acute) Pulmonary HTN (Acute) Heart failure (Acute) 09/02/21 with FL low EF Non-STEMI (non-ST elevated myocardial infarction) (Acute) 09/02/21 Vertigo (Acute) GERD (gastroesophageal reflux disease) (Chronic) Essential hypertension (Acute) Asthma (Chronic) Depression (Chronic) PTSD (post-traumatic stress disorder) (Acute) Tobacco abuse disorder (Acute) Hypokalemia (Acute) Chronic gout (Acute) Hyperlipidemia (Acute) Diabetic peripheral neuropathy (Acute) Type 2 diabetes mellitus (Chronic) Medical History COVID was vaccinated but contracted Covid 06/22 History of gastrointestinal ulcer Surgical History H/O bone graft left knee H/O shoulder surgery x4 and ending with a full replacement H/O total hysterectomy History of appendectomy History of colonoscopy History of esophagogastroduodenoscopy (EGD) gastritis with gastric ulcers Previous section x4 delivery Family History Mother Cancer Heart disease Obstructive lung disease Depression Arthritis Degeneration of intervertebral disc Father Alcohol use disorder Brother Hypertension Mood disorder Maternal Grandfather Alcohol use disorder Maternal Grandmother Breast cancer Maternal Aunt Breast cancer Paternal Aunt Breast cancer Social History Smoking/Tobacco Use Status: Current every day Tobacco Type: cigarettes Tobacco: How many years used: 34 Smoking risk assessment performed?: Yes Alcohol Intake: current Alcohol Intake frequency: holidays/special occasions only Alcohol type: beer Drug use: Never Substance use type: does not use Do you feel safe at home: Yes Do you feel safe in your relationship?: Yes Meds Allergies and Home Medications Allergies Allergy/AdvReac Type Severity Reaction Status Date / Time Bleach (Sodium Hypochlorite) Allergy Unknown Verified 10/28/22 08:01 mushroom Allergy Unknown Verified 10/28/22 08:01 Penicillins Allergy Unknown Verified 10/28/22 08:01 tramadol Allergy Unknown Verified 10/28/22 08:01 mold Allergy Verified 10/28/22 08:01 trazodone Allergy Unverified 10/28/22 08:01 Home Medications Medication Instructions Recorded Confirmed Type acetaminophen 325 mg capsule 975 mg PO Q8H PRN 10/18/21 10/28/22 History albuterol sulfate 2.5 mg/3 mL 2.5 mg inhalation Q6H PRN 10/18/21 10/28/22 History (0.083 %) solution for nebulization atorvastatin 80 mg tablet 80 mg PO DAILY 10/18/21 10/28/22 History clopidogrel 75 mg tablet (Plavix) 75 mg PO DAILY 10/18/21 10/28/22 History ferrous sulfate 325 mg (65 mg 325 mg PO Q OTHER DAY 10/18/21 10/28/22 History iron) tablet,delayed release fluticasone 500 mcg-salmeterol 50 1 inh inhalation BID 10/18/21 10/28/22 History mcg/dose blistr powdr for inhalation (Advair Diskus) insulin degludec 200 unit/mL (3 120 unit subcut DAILY 10/18/21 10/28/22 History mL) subcutaneous pen (Tresiba FlexTouch U-200 insulin) insulin lispro 100 unit/mL 10 unit subcut QID 10/18/21 10/28/22 History subcutaneous pen (Humalog KwikPen (U-100) Insulin) magnesium oxide 400 mg (241.3 mg 400 mg PO BID 10/18/21 10/28/22 History magnesium) tablet metoprolol succinate 50 mg 50 mg PO DAILY PRN 10/18/21 10/28/22 History tablet,extended release 24 hr nitroglycerin 0.4 mg sublingual 0.4 mg sublingual Q5M PRN 10/18/21 10/28/22 History tablet pantoprazole 20 mg tablet,delayed 20 mg PO DAILY 10/18/21 10/28/22 History release methadone 10 mg/5 mL oral solution 120 mg PO DAILY 03/15/22 10/28/22 History prochlorperazine maleate 10 mg 10 mg PO TID PRN nausea and 03/15/22 10/28/22 Rx tablet (Compazine) vomiting #14 tabs aspirin 81 mg chewable tablet 81 mg PO 1XD 08/14/22 10/28/22 History carboxymethylcellulose sodium 0.5 1 drp OU QID #50 ea 08/15/22 10/28/22 Rx % eye drops in a dropperette (Refresh Plus) furosemide 20 mg tablet 20 mg PO DAILY 08/15/22 10/28/22 History gabapentin 600 mg tablet 600 mg PO DIRECTED #20 tabs 08/15/22 10/28/22 Rx prednisone 20 mg tablet 60 mg PO DAILY #18 tabs 08/15/22 10/28/22 Rx white petrolatum-mineral oil 56.8 1 applic OU BID #7 grams 08/15/22 10/28/22 Rx %-42.5 % eye ointment (Refresh Lacri-Lube) white petrolatum-mineral oil 80 1 applic ophthalmic (eye) 4-6XD 08/15/22 10/28/22 Rx %-20 % eye ointment (Soothe Night PRN #3.5 grams Time Lubricant) Exam Narrative Exam Narrative: General: Somnolent female who looks older than her stated age, wakes up with difficulty, falls asleep mid-word/mid-sentence in the beginning, but does finally wake up more about 10 minutes into the interview, at which point she is A&Ox3, anxious Neurological: A&Ox3, no focal deficits once the initial period of somnolence has passed Psychiatric: Appropriate speech pattern/content; mildly anxious Skin: Multiple tattoos, no lesions on B feet, no bruises or rashes. HEENT: Atraumatic, normocephalic, EOMI, dry MM, clear oropharynx, no submandibular or cervical lymphadenopathy, no goiter or jVD Cardiovascular: RRR, no m/r/g Lungs: scattered expiratory wheezing B Gastrointestinal: soft, nontender, nondistended Genitourinary: deferred Extremities: 1+ pedal pulses B, no edema, clubbing, or cyanosis Results Imaging Additional studies: XR L hand: Acute nondisplaced fracture through the base of the proximal phalanx of the index finger with associated soft tissue swelling. CT head w/o contrast: No acute intracranial process MRI brain w/w/o contrast: 1. No acute infarct or intracranial hemorrhage. 2. No evidence of intracranial mass abnormal enhancement. EKG: ST, HR 96, QTc of 536 msec (505 corrected by cardiology at [facility]), Old anterior infarct, Labs Result diagrams: 10/28/22 08:55 10/28/22 08:55 Labs: Laboratory Results - last 24 hr 10/28/22 10/28/22 10/28/22 08:21 08:21 08:55 WBC RBC Hgb Hct MCV MCH MCHC RDW Plt Count MPV Immature Gran % Neutrophils % Lymphocytes % Monocytes % Eosinophils % Basophils % Nucleated RBC % Absolute Neutrophils Absolute Lymphocytes Absolute Monocytes Absolute Eosinophils Absolute Basophils Sodium 142 Potassium 2.6 L* Chloride 99 Carbon Dioxide 37.6 H Anion Gap 5.4 BUN 21 H Creatinine 0.9 Est GFR (CKD-EPI 2020) 79.35 Glucose 117 H Calcium 9.4 Magnesium Troponin I < 50 Urine Color Yellow Urine Clarity Clear Urine pH 7.0 Ur Specific Eagan 1.020 Urine Protein Negative Urine Ketones Negative Urine Blood Negative Urine Nitrite Negative Urine Bilirubin Negative Urine Urobilinogen 0.2 Ur Leukocyte Esterase Negative Urine Glucose 500 H Urine Opiates Screen Negative Urine Methadone Screen Positive A Ur Barbiturates Screen Negative Ur Tricyclics Screen Negative Ur Amphetamines Screen Negative U Benzodiazepines Scrn Negative Urine Cocaine Screen Negative Ur THC Screen Negative 10/28/22 10/28/22 08:55 08:55 WBC 9.73 RBC 4.90 Hgb 14.7 Hct 44.0 MCV 90 MCH 30.0 MCHC 33.4 RDW 14.9 H Plt Count 330 MPV 10.2 Immature Gran % 0.2 Neutrophils % 52.0 Lymphocytes % 32.0 Monocytes % 9.8 Eosinophils % 5.5 Basophils % 0.5 Nucleated RBC % 0.0 Absolute Neutrophils 5.06 Absolute Lymphocytes 3.11 Absolute Monocytes 0.95 H Absolute Eosinophils 0.54 Absolute Basophils 0.05 Sodium Potassium Chloride Carbon Dioxide Anion Gap BUN Creatinine Est GFR (CKD-EPI 2020) Glucose Calcium Magnesium 2.5 H Troponin I Urine Color Urine Clarity Urine pH Ur Specific Eagan Urine Protein Urine Ketones Urine Blood Urine Nitrite Urine Bilirubin Urine Urobilinogen Ur Leukocyte Esterase Urine Glucose Urine Opiates Screen Urine Methadone Screen Ur Barbiturates Screen Ur Tricyclics Screen Ur Amphetamines Screen U Benzodiazepines Scrn Urine Cocaine Screen Ur THC Screen Last Vital Signs Temp 36.6 C 10/28/22 16:29 Pulse 71 10/28/22 17:28 Resp 18 10/28/22 17:28 BP 105/54 L 10/28/22 17:28 Pulse Ox 95 10/28/22 17:28 Time Spent Time spent with Patient: 55-74 minutes Time was spent: preparing to see the patient(eg.review tests), obtaining and/or reviewing separately otained hiistory, ordering medications,tests, procedures, referring, communicating with other health rn complex care, indepentently interpreting results, counseling the patient and care coordination
[2022-10-28] MEDS: Acetaminophen 325 MG TAB PO (19:02)
[2022-10-28 19:55] LABS: BE (Venous) 11 mmol/L (-2-3); HCO3 (Venous) 35 mmol/L (23-28); O2 Sat (Venous) 88 %; TCO2 (Venous) 31 mmol/L (24-29); pCO2 (Venous) 48 mmHg (41-51); pH (Venous) 7.47 (7.31-7.41); pO2 (Venous) 49 mmHg
[2022-10-28] MEDS: HYDROmorphone 2 MG/ML SYR 0.5 MG IVP ×2 (20:50→22:00)
[2022-10-28] MEDS: levETIRAcetam 500 MG TAB PO (20:55)
[2022-10-28] MEDS: Magnesium Oxide 400 MG TAB PO (20:57)
[2022-10-28] MEDS: Metoprolol CR 50 MG TABCR (21:00)
[2022-10-28] MEDS: Potassium Chloride 20 MEQ TABCR 40 MEQ PO (21:04)
[2022-10-28] MEDS: Gabapentin 600 MG TAB PO (21:29)
--- NOTE | 2022-10-28 21:52 | NUR.NOTE ---
Addendum entered by Aracely Mendoza 10/29/22 01:44: ativan 1 mg was not given for the seizure. lines were flushed. Original Note: pt states she dropped 2 silver dollars on the floor under the bed in rm 2. nurse at the time told her they would be picked up when the bed would be moved for transfer upstairs. pt was moved to rm 2 in her bed at approx 2100 while she was having a seizure. no silver dollars were found on the floor in rm 7. ativan 1 mg given to pt while she was seizing-muscles tightened, hands clenched. subsided over 5 minutes. pt making requests shortly after. many requests [id number] not eat any sandwiches in our fridge. supervisor stone brought yougurt-pt could not eat blueberry or cardoza. cold cut meat was brought later by supervisor stone which she ate. Nursing Note:
[2022-10-28] MEDS: HYDROmorphone 2 MG/ML SYR 1 MG IVP (22:42)
[2022-10-28] MEDS: Lidocaine 5% Patch 1 PATCH (22:43)
[2022-10-29] VITALS (21 sets, daily range): BP systolic 87–101; BP diastolic 52–77; PULSE 71–86; RESP 11–22; TEMP 36–36.6; O2SAT 93–98
--- NOTE | 2022-10-29 | DI.CT_ITS ---
Exam(s) CT ABDOMEN PELVIS W EXAM: CT ABDOMEN PELVIS W CLINICAL HISTORY: RUQ pain post fall. TECHNIQUE: Imaging Protocol: Axial computed tomography images with coronal and sagittal reformatted images were created and reviewed CONTRAST MATERIAL: Intravenous: Omnipaque 350 Contrast volume:100 ml Oral: / no COMPARISON: CT CT ABD/PELVIS W/ CONTRAST from 09/24/2021 [facility]. FINDINGS: ABDOMEN: Lung Bases: Mild dependent changes. Liver: [id number] hepatic steatosis. No measurable mass. Gallbladder and biliary tract: No radiodense calculus or dilation. Pancreas: Normal density, no abnormal calcifications or inflammatory process. Spleen: Normal. Kidneys: Normal size, contour and axis. No radiodense stones or obstructive uropathy. No change in s ize of left renal lesion which does not appear cystic. This was noted on prior CT from [facility].. Adrenal glands: No masses seen. Abdominal Aorta: Abdominal portion non-dilated. Atherosclerotic changes. PELVIS: Bladder: No gross wall thickening. No calculi.No focal mass. Bowel: No obstruction or bowel wall thickening. Peritoneal cavity: No ascites, collection or mesenteric inflammatory response. Soft tissues: Increas ed density seen skin and adjacent subcutaneous fat in the inferior margin of the pannus. Small bubbl e of subcutaneous air in the right upper quadrant may represent an injection site. Other focal area increased density in the anterior subcutaneous fat in the right upper quadrant could represent a cont usion. Bones: Degenerative changes in the thoracic and lumbar spine. No evidence of fracture. Reproductive organs: Status post hysterectomy. Lymph nodes: Unremarkable. Impression: There is a mild subcutaneous contusion in the right upper quadrant. Edema in the inferior pannus whi ch could also represent contusion. Clinical correlation recommended. 2.5 cm rounded intermediate density lesion in the left kidney does not appear to represent a simple c yst. Although this appears unchanged from 2020, her evaluation with MRI recommended if this has not already been performed.. Unexpected findings RADIATION DOSE DELIVERED: 943.41mGy.cm Total DLP DATA REPOSITORY: All CT scans at this facility are submitted to the National Radiology Data Registry (NRDR) Dose Index Registry (DIR) with the [employer] [place] [employer] (ACR). RADIATION OPTIMIZATION: All CT scans at this facility use at least one of these dose optimization te chniques: automated exposure control; mA and/or kV adjustment per patient size (includes targeted exa ms where dose is matched to clinical indication); or iterative reconstruction.
[2022-10-29] MEDS: POTASSIUM CHLORIDE 20 MEQ/100 ML BAG 50 MEQ IVPB (00:05)
[2022-10-29 01:09] LABS: Source Nasal/Nares
[2022-10-29 01:40] LABS: COVID-19 PCR Negative (Negative)
[2022-10-29] MEDS: Acetaminophen 325 MG TAB PO (03:31)
[2022-10-29] MEDS: oxyCODONE 5 mg/Acetaminophen 325 mg TAB PO ×2 (03:32→10:30)
[2022-10-29 06:17] LABS: Abs Immature Grans 0.02 10^3/uL (0.0-0.06); Absolute Basophil Count 0.02 10^3/uL (0.0-0.2); Absolute Eosinophil Count 0.47 10^3/uL (0.0-0.7); Absolute Lymphocyte Count 3.13 10^3/uL (1.2-3.4); Absolute Monocyte Count 0.87 10^3/uL (0.1-0.8); Absolute Neutrophil Count 4.24 10^3/uL (1.2-6.7); Basophils % 0.2; Eosinophils % 5.4; HCT 40.2 % (36.0-46.0); HGB 13.1 g/dL (11.2-15.7); Immature Grans % 0.2; Lymphocytes % 35.8; MCHC 32.6 % (32.0-36.0); MCV 92 fL (80-95); Monocytes % 9.9; Neutrophils % 48.5; RBC 4.36 10^6/uL (3.93-5.22); RDW-SD 51.8 fL; WBC 8.75 10^3/uL (4.4-10.8)
[2022-10-29 06:44] LABS: ALT 20 U/L (14-59); AST 27 U/L (15-37); Albumin 3.2 g/dL (3.4-5.0); Alkaline Phosphatase 100 U/L (46-116); Anion Gap 6.1 mmol/L (3-11); BUN 16 mg/dL (7-18); Bilirubin, Total 0.5 mg/dL (0.2-1.0); CO2 30.9 mmol/L (21.0-32.0); CREATININE 0.9 mg/dL (0.55-1.02); Calcium 8.7 mg/dL (8.5-10.1); Chloride 108 mmol/L (98-107); Estimated GFR 79.35 (mL/min/1.73m2); Glucose 85 mg/dL (74-106); Magnesium 2.6 mg/dL (1.8-2.4); Potassium 3.7 mmol/L (3.5-5.1); Sodium 145 mmol/L (136-145)
[2022-10-29 07:19] LABS: Lab Add On Test DONE
--- NOTE | 2022-10-29 07:30 | RT.EKG_ITS ---
APPROVED REPORT Exam: Resting ECG Reason for Exam: F/u QT prolongation Patient Location: I HR:74 bpm ECG Measurements Heart Rate 74 AXIS CO 180 P 10 QRSd 98 QRS 38 QT 464 T 81 QTc 515 Conclusion Sinus rhythm...normal P axis, V-rate 50- 99 Anteroseptal infarct, old...Q >40mS, V1-V2 Prolonged QT interval...QTc >510mS
[2022-10-29 07:33] LABS: Creatine Kinase 72 U/L (26-192)
[2022-10-29 07:41] LABS: Hemoglobin A1C 6.3 % (<5.7)
[2022-10-29 07:52] LABS: Procalcitonin < 0.1 ng/mL
[2022-10-29] MEDS: Refresh PLUS Eye Drops 0.4ml OU ×2 (08:09→12:19)
[2022-10-29] MEDS: Potassium Chloride 20 MEQ TABCR 40 MEQ PO (08:10)
[2022-10-29] MEDS: Insulin Glargine 300 UNITS/3 ML PEN 48 UNITS SC (08:11)
[2022-10-29] MEDS: Budesonide/Formoterol 160/4.5 6 GM 60 PUFF INH IH (08:12)
[2022-10-29] MEDS: levETIRAcetam 500 MG TAB PO (08:13)
[2022-10-29] MEDS: Aspirin 81 MG CHEW PO (08:13)
[2022-10-29] MEDS: Clopidogrel 75 MG TAB PO (08:14)
[2022-10-29] MEDS: Magnesium Oxide 400 MG TAB PO (08:14)
[2022-10-29] MEDS: Pantoprazole 20 MG TABCR PO (08:14)
[2022-10-29] MEDS: Ferrous Sulfate 325 MG TAB PO (08:14)
[2022-10-29] MEDS: Metoprolol CR 50 MG TABCR PO (08:14)
[2022-10-29] MEDS: Furosemide 20 MG TAB PO (08:14)
[2022-10-29] MEDS: Gabapentin 600 MG TAB PO ×2 (08:14→12:18)
--- NOTE | 2022-10-29 08:15 | RESPIRATORY ---
Pt states that she uses 2-3L O2 at home 24/04 through [facility].
--- NOTE | 2022-10-29 08:33 | PDOC.CMIN ---
- If Service Date Differs Date of service: 10/29/22 Time of Service: 08:33 Care Management Initial Assess REASON FOR HOSPITALIZATION:: Syncope, Hypokalemia PAST MEDICAL HISTORY/PAST SURGICAL HISTORY:: All Active Problems (Updated 10/28/22 @ 19:39 by Brii Baeza MD). Episode of unresponsiveness (Acute). Discharge planning issues (Acute). DVT prophylaxis (Acute). Chronic systolic CHF (congestive heart failure) (Chronic). Ischemic cardiomyopathy (Acute). Obstructive sleep apnea (Chronic). Hallucinations (Acute). Chronic respiratory failure with hypoxia (Chronic). Fracture of finger, left (Acute). Syncopal episodes (Chronic). Acute hypokalemia (Acute). Observed seizure-like activity (Acute). Opioid dependence on agonist therapy (Acute). Leg wound, left (Acute). Facial palsy (Acute). Pulmonary HTN (Acute). Heart failure (Acute). 09/02/21 with ID low EF. Non-STEMI (non-ST elevated myocardial infarction) (Acute). 09/02/21. Vertigo (Acute). GERD (gastroesophageal reflux disease) (Chronic). Essential hypertension (Acute). Asthma (Chronic). Depression (Chronic). PTSD (post-traumatic stress disorder) (Acute). Tobacco abuse disorder (Acute). Hypokalemia (Acute). Chronic gout (Acute). Hyperlipidemia (Acute). Diabetic peripheral neuropathy (Acute). Type 2 diabetes mellitus (Chronic). Medical History . COVID. was vaccinated but contracted Covid 06/22. History of gastrointestinal ulcer. Surgical History . H/O bone graft. left knee. H/O shoulder surgery. x4 and ending with a full replacement. H/O total hysterectomy. History of appendectomy. History of colonoscopy. History of esophagogastroduodenoscopy (EGD). gastritis with gastric ulcers. Previous section. x4 delivery PREVIOUS FUNCTIONAL STATUS/SOCIAL/FAMILY SUPPORTS:: Aracelis lives in [place] with her son and his 3 month old. She is unemployed and on SSDI due to her health decline. Aracelis does not drive and uses [facility] for transportation. Aracelis has [facility] RN and SOFTWARE DESIGN ENGINEER services. Her SOFTWARE DESIGN ENGINEER through the [facility] is Georgette. Per pt, she has assisted living care and numerical analysis group manager services through [facility]. She has $2,000 in DME to use and she is trying to get a hospital bed. CURRENT FUNCTIONAL STATUS:: Aracelis is sittin up in bed in the ICU. She is awake, alert and able to engage in conversation. Aracelis would like her son to visit her in the ICU with his 3 month old. Per Aracelis, her grandchild was recently discharged from [facility] and has a feeding tube. Visiting policy is reviewed with patient. CM will follow. ADVANCE DIRECTIVES:: None on file. Has patient been provided with info about the portal/API?: Yes Did the patient sign up for the portal?: No CODE STATUS:: Full Code INSURANCE COVERAGE / FINANCIAL ISSUES:: Medicaid. Medicare CURRENT HOME/COMMUNITY SERVICES/EQUIPMENT:: Enrique/ Norberto ESPINOSA RN and SOFTWARE DESIGN ENGINEER(Carol). Assisted living care and numerical analysis group manager services through [facility]. LUCA. TRINI(Kishan) PRIMARY CARE PHYSICIAN:: Valentin Parekh POTENTIAL DISCHARGE NEEDS:: Resumption of [facility] and [facility] RN/SOFTWARE DESIGN ENGINEER services. Outpatient follow up appointments with PCP and Neurology. Last dose letter/TRINI PATIENT/FAMILY EDUCATION NEEDS:: Review discharge instructions, limitations, medications and plan to follow up with community providers. Discuss ask me three and goals of self care. TRANSPORTATION:: via [facility] private vehicle. PLAN:: Anticipate, Aracelis will discharge home when medically ready, following a mental health consult. [facility] will be arranged for transportation. Discharge needs at this time are Outpatient Neurology, Outpatient EEG if not obtainable during this admission. She will also need an outpatient follow up with Ortho. She will resume [place]/Norberto KINGA RN/SOFTWARE DESIGN ENGINEER and Services through [facility].
[2022-10-29] MEDS: Insulin Aspart 300 UNITS/3 ML PEN 10 UNITS IJ (08:55)
[2022-10-29] MEDS: HYDROmorphone 2 MG/ML SYR 1 MG IVP ×2 (09:08→13:16)
[2022-10-29] MEDS: Omnipaque 350 MG/ML 100 ML BTL IJ (11:17)
[2022-10-29] MEDS: Normal Saline - Diluent 50 ML VIAL IV (11:18)
[2022-10-29] MEDS: Normal Saline Flush 10 ML SYR IVP (11:19)
--- NOTE | 2022-10-29 11:38 | DI.VRAD_ITS ---
PROCEDURE INFORMATION: Exam: CT Abdomen And Pelvis With Contrast Exam date and time: 10/29/2022 11:10 AM Age: 47 years old Clinical indication: Other: Ruq pain post fall TECHNIQUE: Imaging protocol: Computed tomography of the abdomen and pelvis with contrast. 1284image(s) are provided. Radiation optimization: All CT scans at this facility use at least one of these dose optimization techniques: automated exposure control; mA and/or kV adjustment per patient size (includes targeted exams where dose is matched to clinical indication); or iterative reconstruction. Contrast material: OMNIPAQUE 350; Contrast volume: 100 ml; Contrast route: INTRAVENOUS (IV); Other technique: Axial images are available with sagittal and coronal reconstruction views. Automated dose exposure control is utilized. The DLP is 943.0. COMPARISON: CT ABD/PELVIS W/ CONTRAST 09/24/2021 12:59 AM with no report currently available. FINDINGS: Lungs: There is some minimal dependent subsegmental atelectasis present with no lobar consolidation appreciated. Liver: There is some mild hepatic steatosis appearance overall. Gallbladder and bile ducts: No radiopaque obstructive calculus or biliary ductal dilatation is appreciated. Pancreas: Unremarkable. Spleen: Unremarkable. Adrenal glands: Unremarkable. 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 No radiopaque obstructive renal calculus or hydronephrosis is appreciated. Stomach and bowel: Some aspects of the colon are undistended. This may also be peristaltic related.There is abundant stool present limiting mucosal detail evaluation. There is a small sliding-type hiatal hernia demonstrated with slight gastroesophageal fold thickening. There is some calcific ingested type bowel gastric content. Appendix: The appendix is not definitively identified although no adjacent fluid collections or acute inflammatory stranding changes are appreciated. Intraperitoneal space: No free air or free fluid collections are appreciated. Vasculature: There are phleboliths present. Lymph nodes: No abnormal lymph node enlargement is appreciated. Urinary bladder: The bladder is incompletely fluid filled for evaluation which may exagerate the wall thickness. This can also be seen with post inflammation sequela. Reproductive: Unremarkable as visualized. Bones/joints: Osseous alignment is maintained.No interval displaced fracture or dislocation is appreciated. There is chronic multilevel spurring and disc space narrowing overall contributing to some osseous neural foraminal narrowing. There are some chronic appearing rib deformities present for example inferiorly on the left. Soft tissues: There is some punctate air of the right anterior abdominal wall soft tissues and could represent injection along with some faint stranding anteromedially. The latter focus could also be seen with some subcutaneous contusion. There is some persistent albeit decreased anterior skin thickening at the lower abdominal anterior pannus margin. Other findings: There is some motion artifact present. No other significant interval changes are appreciated. IMPRESSION: 1. There is subtle anterior abdominal wall subcutaneous tissue stranding. Consider if there is history of injection. This can also be seen with some subcutaneous contusion. 2. Osseous alignment is maintained.No interval displaced fracture or dislocation is appreciated. 3. There is some diffuse hepatic steatosis demonstrated. 4. No interval abdominal fluid collections or acute inflammatory stranding changes are appreciated. Dictated and Authenticated by: Wing Villa MD. Ordering:RIGOBERTO Teresa MD
--- NOTE | 2022-10-29 11:46 | PHA.REVIEW2 ---
Pharmacy Admission Review - Admission Clinical Review (Last Reviewed 10/28/22 @ 08:30 by Carlos Jimenes MD) Episode of unresponsiveness (Acute) Discharge planning issues (Acute) DVT prophylaxis (Acute) Ischemic cardiomyopathy (Acute) Hallucinations (Acute) Fracture of finger, left (Acute) Acute hypokalemia (Acute) Observed seizure-like activity (Acute) Bleach (Sodium Hypochlorite) Allergy (Unknown, Verified 10/28/22 08:01) mushroom Allergy (Unknown, Verified 10/28/22 08:01) Penicillins Allergy (Unknown, Verified 10/28/22 08:01) tramadol Allergy (Unknown, Verified 10/28/22 08:01) mold Allergy (Verified 10/28/22 08:01) trazodone Allergy (Unverified 10/28/22 08:01) Resuscitation Status Full Code Height 5 ft 4 in Weight 84.2 kg - Renal Dosing Renal Dosing: BUN 16 mg/dL (7-18) 10/29/22 05:15 Creatinine 0.9 mg/dL (0.55-1.02) 10/29/22 05:15 Medications needing adjustments: Reviewed (crcl = 81, no adjustments needed) - Anticoagulation Anticoagulation: Hgb 13.1 g/dL (11.2-15.7) 10/29/22 05:15 Hct 40.2 % (36.0-46.0) 10/29/22 05:15 Plt Count 10^3/uL (130-400) 10/29/22 05:15 Creatinine 0.9 mg/dL (0.55-1.02) 10/29/22 05:15 DVT Prophylaxis: Reviewed Medications: Enoxaparin (40 mg daily) Therapeutic Anticoagulation: Reviewed Medications: Aspirin (plus plavix daily) - Opiate Usage Evaluate Pain Scale/Pains Meds: Reviewed (for hand fracture: hydromorphone 1 mg q4h prn (received one dose this AM, 2 x 0.5 mg in ED last night). methadone cancelled, last dose yesterday morning) Scheduled Bowel Reg ordered if on Opiates?: No (PRN) - Relevant Labs Sodium 145 mmol/L (136-145) 10/29/22 05:15 Potassium 3.7 mmol/L (3.5-5.1) D 10/29/22 05:15 Chloride 108 mmol/L (98-107) H 10/29/22 05:15 Magnesium 2.6 mg/dL (1.8-2.4) H 10/29/22 05:15 Electrolytes, C-Reactive P, ESR: Reviewed (mag slightly high @ 2.6, hold or change mag oxide? (on 400 mg BID)) - DM Control DM Control: Glucose 85 mg/dL (74-106) 10/29/22 05:15 Hemoglobin A1c 6.3 % (<5.7) H 10/29/22 05:15 Finger Stick Blood Glucose 140 Finger Stick Blood Glucose 140 Finger Stick Blood Glucose 140 Finger Stick Blood Glucose 140 Finger Stick Blood Glucose 140 DM Control: Reviewed Insulin Dosing, Diabetic Medication: On home dose of insulin lispro (10 units QID) + sliding scale with meals & HS. Tresiba 120 units daily therapeutic sub to lantus 48 units Q12h (20% dose reduction divided into 2 doses), pt reports also taking victoza (not on our formulary) and Jardiance 10 mg daily (not yet ordered) - Cardiac Review Cardiac Review: Troponin I < 50 ng/L (<or=60) 10/28/22 08:55 BP, HR, EF%: Reviewed (low BP, pt reports continued intermittent syncopal episodes [place] [facility] [place] has history of ischemic cardiomyopathy) - Qtc Review QTc: Reviewed ( QTc = 536 10/28/22 ) If Elevated, List meds needing intervention: concern w/ methadone - not ordered, last dose yesterday. Also on citalopram 20 mg daily (decreased from 40 mg at some point) which can contribute. Pt did not report on her written med list but Rx for zofran 4 mg q8hprn filled 10/18/22 - can also contribute to QT prolongation - IV to PO Switch IV Medications: Reviewed (IV hydromorphone for now, switch to PO when appropriate) - Home Meds Home Med List reviewed: Intervened (pt supplied hand written med list, surescripts fill history reviewed.) Relevent Home Meds Not ordered & why?: Added to list: - torsemide 40 mg daily. - potassium 10 mEq daily. - folic acid 1 mg daily. - citalopram 20 mg daily. - jardiance 10 mg daily. - victoza (need to confirm dose) (non-formulary). - colchicine 0.6 mg BID (pt reports this is for chest pain). - benzonatate 100 mg tid prn. - cetirizine 10 mg daily prn. - albuterol HFA inhaler 2 puffs q3h prn. Updated: metoprolol dose is 25 mg daily (from 50 mg), pantoprazole (last Rx 40 mg BID), advair inhaler (uses 45 HFA not diskus). Removed from list: furosemide (takes torsemide), prednisone + prochlorperazine (these were both short term Rx). Methadone dose was confirmed w/ [facility] yesterday, last dose 10/28. They are guest-dosing her until 10/30 - they could not confirm where her usual clinic is - Current meds Current Medication Order Review: Reviewed (started on keppra 500 mg PO BID (after initial 1g IV yesterday) for new onset witnessed seizure)
[2022-10-29] MEDS: Enoxaparin 40 MG/0.4 ML SYR SC (12:18)
--- NOTE | 2022-10-29 13:49 | PDOC.CMDIS ---
- If Service Date Differs Date of service: 10/29/22 Time of Service: 13:49 LACE Index Scoring Tool - Questions: Length of Stay (in days): 1 Acuity (Admit via E.D.?): Yes E.D. Visits: 3 - Answers: Total Score: 7 Risk of Readmission: Low Risk Care Management Discharge Reason for Hospitalization: Syncope, Hypokalemia Discharge Plan: December left AMA. She received a holter monitor prior to discharge. She is encouraged to follow up with community providers and return to the ER if needed. Aracelis is driven via private vehicle with son. Patient/Family Education Needs: Discuss implications for leaving against medical advise with review of supporting paperwork.
--- NOTE | 2022-10-29 17:58 | DSE_ITS ---
Date of service: 10/29/22 Time of Service: 17:59 DS: Diagnosis Discharge Diagnosis (1) Observed seizure-like activity: Status: Acute (2) Episode of unresponsiveness: Status: Acute (3) Acute hypokalemia: Status: Acute (4) Fracture of finger, left: Status: Acute (5) Chronic respiratory failure with hypoxia: Status: Chronic (6) Hallucinations: Status: Acute (7) Obstructive sleep apnea: Status: Chronic (8) Type 2 diabetes mellitus: Status: Chronic (9) Ischemic cardiomyopathy: Status: Acute (10) Chronic systolic CHF (congestive heart failure): Status: Chronic Discharge Plan Disposition Patient Disposition: Against Medical Advice Condition: Fair Discharge Details Reason For Visit: Syncope; Hypokalemia Admit Date/Time: 10/28/22 13:22 Admit Provider: Brii Baeza Attending Provider: Brii Baeza Primary Care Provider: Valentin Parekh [facility] Hospital Course: Ms Monique is a 47 year old female with PMHx of ICMO/chronic systolic CHF (LVEF of 39%), as well as h/o IDDM2, RAQUEL, chronic hypoxic respiratory failure on 2.5- 3L of O2 by SC and not on CPAP, syncopal episodes under workup by [facility] cardiology, who was admitted to [facility] ICU on 10/28/22 due to observed episode of unresponsiveness with convulsive activity while in the ER. She was hooked up to a manager monitoring at that time and did not have an arrhythmia during the episode. She was not hypoglycemic during this event. When she came to it, she was quite somnolent. New onset seizures were suspected. She was also noted to be hypokalemic and had evidence of QT/QTc prolongation by EKG. She had initially presented for L hand pain associated with a fall at home during one of these episodes, resulting in a fracture of a 2nd phalanx on her L hand 2nd digit and required splinting in the ED. Cardiology at [facility] did remark that they had discontinued the patient's zofran qiven her QT prolongation on her last admission there but kept her on methadone. The patient admits to still taking the zofran at home. The patient had a negative CT of the head in the ER and, later, a negative MRI. A transfer to a tertiary care center with in-house neurology and EEG was sought, but neither [facility] nor [facility] had available beds. The patient was admitted here with plans for a Neurology consult and an EEG on 10/31/22. She was somnolent and had difficulty providing history, but did report having episodes of hallucinations (both audio and visual) ever since her children were taken away from her in July. She denied SI/HI. Mental health was consulted, but had not had a chance to evaluate the patient. The patient continued to have QT prolongation by monitoring, so her methadone was again held. The patient ultimately left AMA on 10/29/22 because her three month old grandson was not allowed to visit her in the ICU. No prescriptions were written. The patient verbalized understanding that I would not be prescribing her opioid pain medications if she left against medical advice. We did put a cardiac event recorder on her prior to her discharge, and she should follow up with outpatient neurology and for an EEG. This is being ordered. It is still not clear if we observed a true seizure, a psychogenic event, myoclonus associated with a sleeping disorder, a medication side effect, or a convulsive syncope. She was not orthostatic. Of note, we also did obtain a CT of her abdomen/pelvis as she reported a RUQ pain starting about a month ago when she had fallen over a table hurting herself. That CT did show subcutaneous tissue stranding c/w h/o injection (such as from insulin) or subcutaneous contusion as suggested by her history of a fall. There was no evidence of bleeding. CT also showed diffuse hepatic steatosis. Care for patient as well as completion of her discharge summary on day of leaving AMA took 45 minutes. Home Meds and New Rx's Prescriptions: No Action acetaminophen 325 mg capsule 975 mg PO Q8H PRN atorvastatin [Lipitor] 80 mg tablet 80 mg PO DAILY clopidogrel [Plavix] 75 mg tablet 75 mg PO DAILY ferrous sulfate 325 mg (65 mg iron) tablet,delayed release (DR/EC) 325 mg PO Q OTHER DAY Tresiba FlexTouch U-200 200 unit/mL (3 mL) insulin pen 120 unit subcut DAILY magnesium oxide [MagOx] 400 mg (241.3 mg magnesium) tablet 400 mg PO BID metoprolol succinate [Toprol XL] 50 mg tablet extended release 24 hr 25 mg PO DAILY PRN nitroglycerin [Nitrostat] 0.4 mg tablet, sublingual 0.4 mg sublingual Q5M PRN Rx Instructions: do not exceed 3 doses per episode albuterol sulfate 2.5 mg /3 mL (0.083 %) solution for nebulization 2.5 mg inhalation Q6H PRN insulin lispro [Humalog KwikPen Insulin] 100 unit/mL insulin pen 10 unit subcut QID methadone 10 mg/5 mL Solution 120 mg PO DAILY Refresh Lacri-Lube 56.8-42.5 % Ointment 1 applic OU BID Qty: 7 0RF gabapentin 600 mg Tablet 600 mg PO DIRECTED Qty: 20 0RF Rx Instructions: 600 mg PO q am and at noon; 1200 mg PO Qpm carboxymethylcellulose sodium [Refresh Plus] 0.5 % Dropperette 1 drp OU QID Qty: 50 0RF Soothe Night Time Lubricant 80-20 % ointment 1 applic ophthalmic (eye) 4-6XD PRNQty: 3.5 0RF potassium chloride 10 mEq capsule, extended release 10 meq PO DAILY Label Comments: TAKE ONE CAPSULE BY MOUTH EVERY DAY torsemide 20 mg tablet 40 mg PO DAILY Label Comments: TAKE ONE TABLET BY MOUTH EVERY DAY cetirizine [Zyrtec] 10 mg tablet 10 mg PO DAILY PRN PRN (Reason: Allergy Symptoms) Label Comments: TAKE ONE TABLET BY MOUTH EVERY DAY NEEDED aspirin [Adult Low Dose Aspirin] 81 mg tablet,delayed release (DR/EC) 81 mg PO DAILY Label Comments: TAKE ONE TABLET BY MOUTH EVERY DAY citalopram [Celexa] 20 mg tablet 20 mg PO DAILY Label Comments: TAKE ONE TABLET BY MOUTH EVERY DAY benzonatate 100 mg capsule 100 mg PO TID PRN PRN (Reason: Cough) Label Comments: TAKE ONE CAPSULE BY MOUTH THREE TIMES A DAY NEEDED folic acid 1 mg tablet 1 mg PO DAILY Label Comments: TAKE ONE TABLET BY MOUTH EVERY DAY albuterol sulfate [ProAir HFA] 90 mcg/actuation HFA aerosol inhaler 2 inh INHALATION Q3H PRN PRN (Reason: Shortness Of Breath Or Wheezing) Label Comments: INHALE TWO PUFFS BY MOUTH EVERY 3 HOURS NEEDED colchicine [Colcrys] 0.6 mg tablet 0.6 mg PO BID Label Comments: TAKE ONE TABLET BY MOUTH TWICE A DAY Advair HFA 45-21 mcg/actuation HFA aerosol inhaler 2 inh INHALATION BID Label Comments: INHALE TWO PUFFS BY MOUTH TWICE A DAY Victoza 3-Tanmay 0.6 mg/0.1 mL (18 mg/3 mL) pen injector SUBCUT DAILY Label Comments: INJECT 0.6 MG UNDER THE SKIN ONCE DAILY TITRATE UP TOLERATED TO 1.2 MG DAILY, THEN MAINTAINANCE AT 1.8 MG DAILY Jardiance 10 mg tablet 10 mg PO DAILY Label Comments: TAKE ONE TABLET BY MOUTH EVERY DAY pantoprazole [Protonix] 40 mg tablet,delayed release (DR/EC) 40 mg PO BID Label Comments: TAKE ONE TABLET BY MOUTH TWICE A DAY Discharge Instructions Instructions: Syncope (DC), Generalized Tonic Clonic Seizures (DC) Referrals: Valentin Parekh [Primary Care Provider] - Sharmin Elliott MD [ [facility] STAFF PHYSICIAN] - [facility] [Outside] Activity:: Activity as Tolerated Equipment/Supplies:: cardiac event recorder Diet:: Carb Counting Discharge Orders Discharge Orders: Discharge Order (Routine); Ordered 10/29/22 Ordered By: Brii Baeza Other Ambulatory Orders: Cardiac Event Recorder (Routine) Timeframe: 1 Day Facility: [facility] - Location: Respiratory Therapy Ordered By: Brii Baeza EEG(Regular) (Routine) Timeframe: 1 Week Facility: [facility] - Location: Respiratory Therapy Ordered By: Brii Baeza Discharge Data Discharge Date/Time-TO BE ENTERED AT DEPARTURE: 10/29/22 14:15 Discharge Comment: pt left AMA, son picked up pt, manager monitoring on DS: Summary Time Spent with Patient providing and/or coordinating discharge services: Greater than 30 minutes Status at Discharge Functional status at discharge: independent ambulation Overall status at discharge: patient is progressing back to baseline Mental Status: mental status grossly normal Speech and Movement: speech and movement normal Mood: anxious mood Affect: anxious affect Exam Narrative Exam Narrative: General: Somnolent female, A&Ox3, anxious HEENT: EOMI, MMM, pupils no longer dilated as they were on admission Cardiovascular: RRR, no m/r/g Lungs: CTAB Gastrointestinal: TTP RUQ with evidence of old bruising in the area Extremities: L hand digits 2 and 3 splinted/bandaged. Psych Mental Status: mental status grossly normal Speech and Movement: speech and movement normal Mood: anxious mood Affect: anxious affect DS: Data Vitals/I&O Vitals and I&O: Vital Signs Temperature 36.4 C L 10/29/22 12:00 Temperature Source Temporal Artery Scan 10/29/22 12:00 Pulse 82 10/29/22 12:02 Pulse 82 10/29/22 12:02 Respiratory Rate 18 10/29/22 12:02 Respiratory Effort 10/29/22 12:00 Respiratory Depth Normal 10/29/22 12:00 Respiratory Pattern Normal 10/29/22 12:00 Blood Pressure 101/77 10/29/22 12:02 Blood Pressure Mean 80 10/29/22 12:02 Blood Pressure Position Supine 10/29/22 12:00 Pulse Oximetry 95 10/29/22 10:27 Oxygen Delivery Method Nasal Cannula 10/29/22 12:00 Oxygen Flow Rate 2 10/29/22 12:00 Pain Level 8 10/29/22 13:16 Comment 10/28/22 14:00 Intake & Output 10/28/22 10/29/22 10/29/22 23:59 11:59 23:59 Intake Total 703.333 / 1123.333 630 / 630 Output Total 1350 / 1500 150 / 1500 Balance 703.333 / 1123.333 -720 / -870 -150 / -870 Weight 84.2 kg Intake: IV 493.333 / 493.333 230 / 230 Oral 210 / 630 400 / 400 Output: Urine 1350 / 1500 150 / 1500 Other: Urine Color Yellow Yellow Urine Appearance Clear Clear Urine Odor None Comment MICHELLE Voiding Methods Bedside Commode Data Completed and Pending Completed studies during hospitalization [Text1]: CT head: No acute intracranial process.? MRI brain: 1. No intracranial mass or enhancing lesion. 2. No evidence of an acute infarct.? XR L hand: Acute nondisplaced fracture through the base of the proximal phalanx of the index finger with associated soft tissue swelling.? CT abdomen/pelvis: 1. There is subtle anterior abdominal wall subcutaneous tissue stranding. Consider if there is history of injection. This can also be seen with some subcutaneous contusion. 2. Osseous alignment is maintained.No interval displaced fracture or dislocation is appreciated. 3. There is some diffuse hepatic steatosis demonstrated. 4. No interval abdominal fluid collections or acute inflammatory stranding changes are appreciated. Labs on day of discharge: Labs from last 24 hours 10/29/22 10/29/22 10/29/22 05:15 05:15 05:15 WBC RBC Hgb Hct MCV MCH MCHC RDW Plt Count MPV Immature Gran % Neutrophils % Lymphocytes % Monocytes % Eosinophils % Basophils % Nucleated RBC % Absolute Neutrophils Absolute Lymphocytes Absolute Monocytes Absolute Eosinophils Absolute Basophils VBG pH VBG pCO2 VBG pO2 VBG HCO3 VBG Total CO2 VBG O2 Saturation VBG Base Excess Sodium Potassium Chloride Carbon Dioxide Anion Gap BUN Creatinine Est GFR (CKD-EPI 2020) Glucose Hemoglobin A1c 6.3 H Calcium Magnesium Total Bilirubin AST ALT Alkaline Phosphatase Creatine Kinase 72 Total Protein Albumin Procalcitonin < 0.1 COVID-19 Source SARS-CoV-2 (PCR) Add-On Test Request 10/29/22 10/29/22 10/29/22 05:15 05:15 05:15 WBC 8.75 RBC 4.36 Hgb 13.1 Hct 40.2 MCV 92 MCH 30.0 MCHC 32.6 RDW 15.0 H Plt Count MPV Immature Gran % 0.2 Neutrophils % 48.5 Lymphocytes % 35.8 Monocytes % 9.9 Eosinophils % 5.4 Basophils % 0.2 Nucleated RBC % 0.0 Absolute Neutrophils 4.24 Absolute Lymphocytes 3.13 Absolute Monocytes 0.87 H Absolute Eosinophils 0.47 Absolute Basophils 0.02 VBG pH VBG pCO2 VBG pO2 VBG HCO3 VBG Total CO2 VBG O2 Saturation VBG Base Excess Sodium 145 Potassium 3.7 D Chloride 108 H Carbon Dioxide 30.9 Anion Gap 6.1 BUN 16 Creatinine 0.9 Est GFR (CKD-EPI 2020) 79.35 Glucose 85 Hemoglobin A1c Calcium 8.7 Magnesium 2.6 H Total Bilirubin 0.5 AST 27 ALT 20 Alkaline Phosphatase 100 Creatine Kinase Total Protein 6.0 L Albumin 3.2 L Procalcitonin COVID-19 Source SARS-CoV-2 (PCR) Add-On Test Request DONE 10/29/22 10/28/22 01:00 19:50 WBC RBC Hgb Hct MCV MCH MCHC RDW Plt Count MPV Immature Gran % Neutrophils % Lymphocytes % Monocytes % Eosinophils % Basophils % Nucleated RBC % Absolute Neutrophils Absolute Lymphocytes Absolute Monocytes Absolute Eosinophils Absolute Basophils VBG pH 7.47 H VBG pCO2 48 VBG pO2 49 VBG HCO3 35 H VBG Total CO2 31 H VBG O2 Saturation 88 VBG Base Excess 11 H Sodium Potassium Chloride Carbon Dioxide Anion Gap BUN Creatinine Est GFR (CKD-EPI 2020) Glucose Hemoglobin A1c Calcium Magnesium Total Bilirubin AST ALT Alkaline Phosphatase Creatine Kinase Total Protein Albumin Procalcitonin COVID-19 Source Nasal/Nares SARS-CoV-2 (PCR) Negative Add-On Test Request PFSH All Active Problems (Updated 10/28/22 @ 19:39 by Brii Baeza MD) Episode of unresponsiveness (Acute) Discharge planning issues (Acute) DVT prophylaxis (Acute) Chronic systolic CHF (congestive heart failure) (Chronic) Ischemic cardiomyopathy (Acute) Obstructive sleep apnea (Chronic) Hallucinations (Acute) Chronic respiratory failure with hypoxia (Chronic) Fracture of finger, left (Acute) Syncopal episodes (Chronic) Acute hypokalemia (Acute) Observed seizure-like activity (Acute) Opioid dependence on agonist therapy (Acute) Leg wound, left (Acute) Facial palsy (Acute) Pulmonary HTN (Acute) Heart failure (Acute) 09/02/21 with VA low EF Non-STEMI (non-ST elevated myocardial infarction) (Acute) 09/02/21 Vertigo (Acute) GERD (gastroesophageal reflux disease) (Chronic) Essential hypertension (Acute) Asthma (Chronic) Depression (Chronic) PTSD (post-traumatic stress disorder) (Acute) Tobacco abuse disorder (Acute) Hypokalemia (Acute) Chronic gout (Acute) Hyperlipidemia (Acute) Diabetic peripheral neuropathy (Acute) Type 2 diabetes mellitus (Chronic) Medical History COVID was vaccinated but contracted Covid 06/22 History of gastrointestinal ulcer Surgical History H/O bone graft left knee H/O shoulder surgery x4 and ending with a full replacement H/O total hysterectomy History of appendectomy History of colonoscopy History of esophagogastroduodenoscopy (EGD) gastritis with gastric ulcers Previous section x4 delivery Family History Mother Cancer Heart disease Obstructive lung disease Depression Arthritis Degeneration of intervertebral disc Father Alcohol use disorder Brother Hypertension Mood disorder Maternal Grandfather Alcohol use disorder Maternal Grandmother Breast cancer Maternal Aunt Breast cancer Paternal Aunt Breast cancer Social History Smoking/Tobacco Use Status: Current every day Tobacco Type: cigarettes Tobacco: How many years used: 34 Smoking risk assessment performed?: Yes Alcohol Intake: current Alcohol Intake frequency: holidays/special occasions only Alcohol type: beer Drug use: Never Substance use type: does not use Do you feel safe at home: Yes Do you feel safe in your relationship?: Yes Time Spent with Patient Time Spent with Patient: 45-69 minutes Time was spent: preparing to see the patient(eg.review tests), obtaining and/or reviewing separately otained hiistory, ordering medications,tests, procedures, referring, communicating with other health neonatal intensive care nurse, indepentently interpreting results, counseling the patient and care coordination
== END 2022-10-29 14:15 | disposition left against medical advice (07) ==
LOC: ER 22:54 → ICU 10-29 00:33
PROVIDERS: Nurse Practitioner Family; Admitting Provider Internal Medicine; Emergency Provider Student in an Organized Health Care Education/Training Program; PCP Family Medicine; Visit Provider Internal Medicine
DX: R55 Syncope and collapse (principal); R56.9 Unspecified convulsions; E87.6 Hypokalemia; S62.641A Nondisplaced fracture of proximal phalanx of left index finger, initial encounter for closed fracture; R44.0 Auditory hallucinations; I25.5 Ischemic cardiomyopathy; W19.XXXA Unspecified fall, initial encounter; I25.10 Atherosclerotic heart disease of native coronary artery without angina pectoris; Z95.5 Presence of coronary angioplasty implant and graft; Z79.899 Other long term (current) drug therapy; F11.20 Opioid dependence, uncomplicated; I27.20 Pulmonary hypertension, unspecified; I25.2 Old myocardial infarction; K21.9 Gastro-esophageal reflux disease without esophagitis; I11.0 Hypertensive heart disease with heart failure; J45.909 Unspecified asthma, uncomplicated; F17.210 Nicotine dependence, cigarettes, uncomplicated; F32.A Depression, unspecified; F43.10 Post-traumatic stress disorder, unspecified; E78.5 Hyperlipidemia, unspecified; E11.42 Type 2 diabetes mellitus with diabetic polyneuropathy; M1A.9XX0 Chronic gout, unspecified, without tophus (tophi); Z20.822 Contact with and (suspected) exposure to COVID-19; G47.33 Obstructive sleep apnea (adult) (pediatric); I50.22 Chronic systolic (congestive) heart failure; J96.11 Chronic respiratory failure with hypoxia; Z99.81 Dependence on supplemental oxygen; R29.6 Repeated falls
CPT/HCPCS: 36415; 36416; 70553; 80048; 80053; 80307; 81025; 82550; 82805; 82962; 84145; 87635; 93005; 93270; 94640; 96361; 96365; 96366; 96367; 96372; 96375; 99285; J1650; 70450; 73130; 74177; 81003; 83036; 83735; 84484; 85025; 93010; 94664; 99223; 99239; G0378; J1170; J1953; J2060; J3480; J3490

== ENCOUNTER 2022-10-30 13:41 | Inpatient (IN) | payer MEDICARE, MEDICAID, SELFPAY ==
[2022-10-30] VITALS (36 sets, daily range): BP systolic 78–119; BP diastolic 53–81; PULSE 68–91; RESP 11–31; TEMP 36.4–37; O2SAT 87–100
--- NOTE | 2022-10-30 13:45 | RT.EKG_ITS ---
APPROVED REPORT Exam: Resting ECG Reason for Exam: seizure Patient Location: E HR:74 bpm ECG Measurements Heart Rate 74 AXIS TX 172 P 16 QRSd 97 QRS 40 QT 442 T 77 QTc 491 Conclusion Sinus rhythm...normal P axis, V-rate 60- 99 Anterior infarct, old...Q >40mS, abnormal ST-T, V2-V5
[2022-10-30 14:36] LABS: Abs Immature Grans 0.02 10^3/uL (0.0-0.06); Absolute Basophil Count 0.03 10^3/uL (0.0-0.2); Absolute Eosinophil Count 0.68 10^3/uL (0.0-0.7); Absolute Lymphocyte Count 3.46 10^3/uL (1.2-3.4); Absolute Monocyte Count 0.88 10^3/uL (0.1-0.8); Absolute Neutrophil Count 3.86 10^3/uL (1.2-6.7); Basophils % 0.3; Eosinophils % 7.6; HCT 45.3 % (36.0-46.0); HGB 14.8 g/dL (11.2-15.7); Immature Grans % 0.2; Lymphocytes % 38.7; MCH 29.7 pg (27.0-33.0); MCHC 32.7 % (32.0-36.0); MCV 91 fL (80-95); MPV 10.1 fL (8.0-11.0); Monocytes % 9.9; Neutrophils % 43.3; Platelet Count 302 10^3/uL (130-400); RBC 4.98 10^6/uL (3.93-5.22); RDW 15.1 % (11.7-14.6); RDW-SD 50.2 fL; WBC 8.93 10^3/uL (4.4-10.8)
[2022-10-30 14:56] LABS: ALT 24 U/L (14-59); AST 18 U/L (15-37); Albumin 3.9 g/dL (3.4-5.0); Alkaline Phosphatase 143 U/L (46-116); Anion Gap 7.4 mmol/L (3-11); BUN 25 mg/dL (7-18); Bilirubin, Total 0.4 mg/dL (0.2-1.0); CO2 31.6 mmol/L (21.0-32.0); CREATININE 0.9 mg/dL (0.55-1.02); Calcium 9.2 mg/dL (8.5-10.1); Chloride 104 mmol/L (98-107); Estimated GFR 79.35 (mL/min/1.73m2); Glucose 160 mg/dL (74-106); Magnesium 2.3 mg/dL (1.8-2.4); Potassium 3.8 mmol/L (3.5-5.1); Sodium 143 mmol/L (136-145); Total Protein 7.5 g/dL (6.4-8.2); Troponin I < 50 ng/L (<or=60)
[2022-10-30 15:00] LABS: Bilirubin Negative (Negative); Blood Negative (Negative); Clarity Clear (Clear); Glucose 500 mg/dL (Negative); Ketones Negative (Negative); Leukocyte Esterase Trace (Negative); Nitrite Negative (Negative); Specific Gravity 1.015 (1.005-1.025); Urobilinogen 0.2 EU/dL (Up TO 0.2); pH 6.5 (5-8)
[2022-10-30] MEDS: oxyCODONE 5 MG TAB PO (15:05)
[2022-10-30 15:20] LABS: *AMPHETAMINES SCREEN URINE Negative (Negative); *BARBITURATES SCREEN URINE Negative (Negative); *BENZODIAZEPINES SCREEN URINE Negative (Negative); Cannabinoids THC Negative (Negative); Cocaine Screen,Urine Negative (Negative); METHADONE URINE SCREEN Positive (Negative); OPIATES URINE SCREEN Negative (Negative)
[2022-10-30 15:30] LABS: Tricyclic Antidepressants Negative (Negative)
[2022-10-30 15:33] LABS: Bacteria Few HPF (Negative); C & S Indicated? Yes; Crystals Negative HPF (Negative); Epithelial Cells Few HPF (Negative); Mucus Negative (Negative); RBC 0-2 HPF (0-2)
--- NOTE | 2022-10-30 15:35 | NUR.NOTE ---
Nursing Note: PT had a myoclonic episode. Eyes remained open during entire episode. Mild/moderate upper body movement. No lower extremity movement or rigidity. After episode PT began to cry stating that she could not handle the pain in her broken finger. Total episode time 35 seconds.
--- NOTE | 2022-10-30 15:36 | W.ED.GENAD ---
Discharge Plan Discharge Details Chief Complaint: Seizure Admit Date/Time: 10/30/22 16:14 Admit Provider: Brii Baeza Attending Provider: Brii Baeza Primary Care Provider: Valentin Parekh ED Provider: Sangeetha Landrum Discharge Data Discharge Date/Time-TO BE ENTERED AT DEPARTURE: 10/30/22 17:38 Medical Decision Making This 47-year-old female presents with report of several recurrent episodes of alteration in mental status since being discharged from this facility Labs are baseline for her and she is fully alert and oriented, she continues to tell me she has left hand pain Patient has labs that do not show significant acute change She is fully alert and oriented She did have an episode of alteration in mental status was observed by patient's nurse, Yue Read, please review her note, it sounds like possibly partial seizure-like activity versus nonepileptic seizure without any postictal. Patient continues to complain of hand pain and feeling like she is withdrawing She will receive oxycodone and some Ativan for withdrawal symptoms Will continue to hold methadone as her QTC is 491 at the discretion of the admitting hospitalist I did attempt to transfer patient to [facility] and [facility], however they are at capacity and unable to accept this patient at this time Dr. Baeza is willing to readmit the patient, patient tells me that she will stay in the hospital and is agreeable to admission HPI General Date/Time Provider Initiated Documentation: 10/30/22 13:51. HPI Narrative: This 47-year-old female with multiple comorbidities including CHF, ischemic cardiomyopathy, obstructive sleep apnea, finger fracture non-ST elevation DE. Alteration in mental status presents with report of several episodes of unresponsiveness since being discharged AGAINST MEDICAL ADVICE from our facility. She was admitted for further evaluations of syncope versus seizure and left AGAINST MEDICAL ADVICE yesterday. She states she had 2 episodes since that time the last 1 being this morning. She states she was unaware of the event. She denies any associated head injuries. She specifically denies any head injury. She denies any chest pain or shortness of breath. She feels lightheaded at this time. She also states like she is withdrawing from methadone as she was withdrawn from this secondary to QTC prolongation. She also continues to tell me that her left hand is painful. Related Data Home Medications Medication Instructions Recorded Confirmed acetaminophen 325 mg capsule 975 mg PO Q8H PRN 10/18/21 10/30/22 albuterol sulfate 2.5 mg/3 mL 2.5 mg inhalation Q6H PRN 10/18/21 10/30/22 (0.083 %) solution for nebulization atorvastatin 80 mg tablet (Lipitor) 80 mg PO DAILY 10/18/21 10/30/22 clopidogrel 75 mg tablet (Plavix) 75 mg PO DAILY 10/18/21 10/30/22 ferrous sulfate 325 mg (65 mg 325 mg PO Q OTHER DAY 10/18/21 10/30/22 iron) tablet,delayed release insulin degludec 200 unit/mL (3 120 unit subcut DAILY 10/18/21 10/30/22 mL) subcutaneous pen (Tresiba FlexTouch U-200 insulin) insulin lispro 100 unit/mL 10 unit subcut QID 10/18/21 10/30/22 subcutaneous pen (Humalog KwikPen (U-100) Insulin) magnesium oxide 400 mg (241.3 mg 400 mg PO BID 10/18/21 10/30/22 magnesium) tablet (MagOx) metoprolol succinate 50 mg 25 mg PO DAILY PRN 10/18/21 10/30/22 tablet,extended release 24 hr (Toprol XL) nitroglycerin 0.4 mg sublingual 0.4 mg sublingual Q5M PRN 10/18/21 10/30/22 tablet (Nitrostat) methadone 10 mg/5 mL oral solution 120 mg PO DAILY 03/15/22 10/30/22 carboxymethylcellulose sodium 0.5 1 drp OU QID #50 ea 08/15/22 10/30/22 % eye drops in a dropperette (Refresh Plus) gabapentin 600 mg tablet 600 mg PO DIRECTED #20 tabs 08/15/22 10/30/22 white petrolatum-mineral oil 56.8 1 applic OU BID #7 grams 08/15/22 10/30/22 %-42.5 % eye ointment (Refresh Lacri-Lube) white petrolatum-mineral oil 80 1 applic ophthalmic (eye) 4-6XD 08/15/22 10/30/22 %-20 % eye ointment (Soothe Night PRN #3.5 grams Time Lubricant) albuterol sulfate 90 mcg/actuation 2 inh inhalation Q3H PRN PRN 10/29/22 10/30/22 aerosol inhaler (ProAir HFA) Shortness Of Breath Or Wheezing aspirin 81 mg tablet,delayed 81 mg PO DAILY 10/29/22 10/30/22 release (Adult Low Dose Aspirin) benzonatate 100 mg capsule 100 mg PO TID PRN PRN Cough 10/29/22 10/30/22 cetirizine 10 mg tablet (Zyrtec) 10 mg PO DAILY PRN PRN Allergy 10/29/22 10/30/22 Symptoms citalopram 20 mg tablet (Celexa) 20 mg PO DAILY 10/29/22 10/30/22 colchicine 0.6 mg tablet (Colcrys) 0.6 mg PO BID 10/29/22 10/30/22 empagliflozin 10 mg tablet 10 mg PO DAILY 10/29/22 10/30/22 (Jardiance) fluticasone propionate 45 2 inh inhalation BID 10/29/22 10/30/22 mcg-salmeterol 21 mcg/actuation HFA inhaler (Advair HFA) folic acid 1 mg tablet 1 mg PO DAILY 10/29/22 10/30/22 liraglutide 0.6 mg/0.1 mL (18 mg/3 mg subcut DAILY 10/29/22 mL) subcutaneous pen injector (Victoza 3-Tanmay) pantoprazole 40 mg tablet,delayed 40 mg PO BID 10/29/22 10/30/22 release (Protonix) potassium chloride 10 mEq 10 meq PO DAILY 10/29/22 10/30/22 capsule,extended release torsemide 20 mg tablet 40 mg PO DAILY 10/29/22 10/30/22 Previous Rx's Medication Instructions Recorded carboxymethylcellulose sodium 0.5 1 drp OU QID #50 ea 08/15/22 % eye drops in a dropperette (Refresh Plus) gabapentin 600 mg tablet 600 mg PO DIRECTED #20 tabs 08/15/22 white petrolatum-mineral oil 56.8 1 applic OU BID #7 grams 08/15/22 %-42.5 % eye ointment (Refresh Lacri-Lube) white petrolatum-mineral oil 80 1 applic ophthalmic (eye) 4-6XD 08/15/22 %-20 % eye ointment (Soothe Night PRN #3.5 grams Time Lubricant) Allergies Allergy/AdvReac Type Severity Reaction Status Date / Time Bleach (Sodium Hypochlorite) Allergy Unknown Verified 10/30/22 13:51 mushroom Allergy Unknown Verified 10/30/22 13:51 Penicillins Allergy Unknown Verified 10/30/22 13:51 tramadol Allergy Unknown Verified 10/30/22 13:51 mold Allergy Verified 10/30/22 13:51 trazodone Allergy Unverified 10/30/22 13:51 General Stated Complaint: Seizure SHANIA: 3 PFSH All Active Problems (Updated 10/30/22 @ 16:31 by Brii Baeza MD) Discharge planning issues (Acute) DVT prophylaxis (Acute) Episode of unresponsiveness (Acute) Chronic systolic CHF (congestive heart failure) (Chronic) Ischemic cardiomyopathy (Acute) Obstructive sleep apnea (Chronic) Hallucinations (Acute) Chronic respiratory failure with hypoxia (Chronic) Fracture of finger, left (Acute) Syncopal episodes (Chronic) Acute hypokalemia (Acute) Observed seizure-like activity (Acute) Opioid dependence on agonist therapy (Acute) Leg wound, left (Acute) Facial palsy (Acute) Pulmonary HTN (Acute) Heart failure (Acute) 09/02/21 with DE low EF Non-STEMI (non-ST elevated myocardial infarction) (Acute) 09/02/21 Vertigo (Acute) GERD (gastroesophageal reflux disease) (Chronic) Essential hypertension (Acute) Asthma (Chronic) Depression (Chronic) PTSD (post-traumatic stress disorder) (Acute) Tobacco abuse disorder (Acute) Hypokalemia (Acute) Chronic gout (Acute) Hyperlipidemia (Acute) Diabetic peripheral neuropathy (Acute) Type 2 diabetes mellitus (Chronic) Medical History COVID was vaccinated but contracted Covid 06/22 History of gastrointestinal ulcer Surgical History H/O bone graft left knee H/O shoulder surgery x4 and ending with a full replacement H/O total hysterectomy History of appendectomy History of colonoscopy History of esophagogastroduodenoscopy (EGD) gastritis with gastric ulcers Previous section x4 delivery Family History Mother Cancer Heart disease Obstructive lung disease Depression Arthritis Degeneration of intervertebral disc Father Alcohol use disorder Brother Hypertension Mood disorder Maternal Grandfather Alcohol use disorder Maternal Grandmother Breast cancer Maternal Aunt Breast cancer Paternal Aunt Breast cancer Social History Smoking/Tobacco Use Status: Current every day Tobacco Type: cigarettes Tobacco: How many years used: 34 Smoking risk assessment performed?: Yes Alcohol Intake: current Alcohol Intake frequency: holidays/special occasions only Alcohol type: beer Drug use: Never Substance use type: does not use Do you feel safe at home: Yes Do you feel safe in your relationship?: Yes Exam Const General: cooperative, comfortable and no acute distress Orientation: alert and oriented x3 HENMT Head: normal to inspection Mouth: oral mucosae normal Eyes Pupils: PERRL Resp Effort & Inspection: normal respiratory effort Cardio Rate: regular rate Rhythm: regular rhythm GI Inspection: normal to inspection Skin General skin exam: no rashes or lesions noted Neuro General: patient alert and patient oriented x3 Cranial Nerves: CN's II-XI intact bilaterally and tongue midline Cognition: normal cognition Speech: speech normal Gait: normal gait Extrem General: normal to inspection Other: Left hand tenderness, neurovascularly intact, ecchymosis noted Course Vital Signs Vital signs: Vital Signs Temperature 37.0 C 10/30/22 13:47 Pulse 80 10/30/22 13:47 Respiratory Rate 18 10/30/22 13:47 Blood Pressure 103/59 L 10/30/22 13:47 Pulse Oximetry 100 10/30/22 13:47 Temperature 36.9 C 10/30/22 15:07 Temperature Source Skin 10/30/22 13:47 Pulse 74 10/30/22 15:07 Respiratory Rate 18 10/30/22 15:07 Respiratory Effort Non-Labored 10/30/22 14:20 Respiratory Depth Normal 10/30/22 14:20 Respiratory Pattern Normal 10/30/22 14:20 Blood Pressure 101/56 L 10/30/22 15:07 Blood Pressure Position Sitting 10/30/22 13:47 Pulse Oximetry 95 10/30/22 15:07 Oxygen Delivery Method Room Air 10/30/22 15:07 Oxygen Flow Rate 0 10/30/22 15:07 Pain Level 8 10/30/22 13:47 Lab/Test Results Lab/Test Results: 10/30/22 13:55 Urine - Reflex from Ua Urine Culture - Pending Laboratory Tests Range/Units 10/30/22 10/30/22 10/30/22 13:55 13:55 14:15 WBC (4.4-10.8) 10^3/uL RBC (3.93-5.22) 10^6/uL Hgb (11.2-15.7) g/dL Hct (36.0-46.0) % MCV (80-95) fL MCH (27.0-33.0) pg MCHC (32.0-36.0) % RDW (11.7-14.6) % Plt Count (130-400) 10^3/uL MPV (8.0-11.0) fL Immature Gran % Neutrophils % Lymphocytes % Monocytes % Eosinophils % Basophils % Nucleated RBC % (0.0-0.3) % Absolute Neutrophils (1.2-6.7) 10^3/uL Absolute Lymphocytes (1.2-3.4) 10^3/uL Absolute Monocytes (0.1-0.8) 10^3/uL Absolute Eosinophils (0.0-0.7) 10^3/uL Absolute Basophils (0.0-0.2) 10^3/uL Sodium (136-145) mmol/L 143 Potassium (3.5-5.1) mmol/L 3.8 Chloride (98-107) mmol/L 104 Carbon Dioxide (21.0-32.0) mmol/L 31.6 Anion Gap (3-11) mmol/L 7.4 BUN (7-18) mg/dL 25 H Creatinine (0.55-1.02) mg/dL 0.9 Est GFR (CKD-EPI 2020) (mL/min/1.73m2) 79.35 Glucose (74-106) mg/dL 160 H Calcium (8.5-10.1) mg/dL 9.2 Magnesium (1.8-2.4) mg/dL 2.3 Total Bilirubin (0.2-1.0) mg/dL 0.4 AST (15-37) U/L 18 ALT (14-59) U/L 24 Alkaline Phosphatase (46-116) U/L 143 H Troponin I (<or=60) ng/L < 50 Total Protein (6.4-8.2) g/dL 7.5 Albumin (3.4-5.0) g/dL 3.9 Urine Color (Yellow) Yellow Urine Clarity (Clear) Clear Urine pH (5-8) 6.5 Ur Specific [place] (1.005-1.025) 1.015 Urine Protein (Negative) mg/dL Negative Urine Ketones (Negative) mg/dL Negative Urine Blood (Negative) Negative Urine Nitrite (Negative) Negative Urine Bilirubin (Negative) Negative Urine Urobilinogen (Up TO 0.2) EU/dL 0.2 Ur Leukocyte Esterase (Negative) Trace H Urine RBC (0-2) HPF 0-2 Urine WBC (0-5) HPF 3-5 Ur Epithelial Cells (Negative) HPF Few Urine Crystals (Negative) HPF Negative Urine Bacteria (Negative) HPF Few Urine Mucus (Negative) Negative Ur Culture Indicated? Yes Urine Glucose (Negative) mg/dL 500 H Urine Opiates Screen (Negative) Negative Urine Methadone Screen (Negative) Positive A Ur Barbiturates Screen (Negative) Negative Ur Tricyclics Screen (Negative) Negative Ur Amphetamines Screen (Negative) Negative U Benzodiazepines Scrn (Negative) Negative Urine Cocaine Screen (Negative) Negative Ur THC Screen (Negative) Negative Range/Units 10/30/22 14:15 WBC (4.4-10.8) 10^3/uL 8.93 RBC (3.93-5.22) 10^6/uL 4.98 Hgb (11.2-15.7) g/dL 14.8 Hct (36.0-46.0) % 45.3 MCV (80-95) fL 91 MCH (27.0-33.0) pg 29.7 MCHC (32.0-36.0) % 32.7 RDW (11.7-14.6) % 15.1 H Plt Count (130-400) 10^3/uL 302 MPV (8.0-11.0) fL 10.1 Immature Gran % 0.2 Neutrophils % 43.3 Lymphocytes % 38.7 Monocytes % 9.9 Eosinophils % 7.6 Basophils % 0.3 Nucleated RBC % (0.0-0.3) % 0.0 Absolute Neutrophils (1.2-6.7) 10^3/uL 3.86 Absolute Lymphocytes (1.2-3.4) 10^3/uL 3.46 H Absolute Monocytes (0.1-0.8) 10^3/uL 0.88 H Absolute Eosinophils (0.0-0.7) 10^3/uL 0.68 Absolute Basophils (0.0-0.2) 10^3/uL 0.03 Sodium (136-145) mmol/L Potassium (3.5-5.1) mmol/L Chloride (98-107) mmol/L Carbon Dioxide (21.0-32.0) mmol/L Anion Gap (3-11) mmol/L BUN (7-18) mg/dL Creatinine (0.55-1.02) mg/dL Est GFR (CKD-EPI 2020) (mL/min/1.73m2) Glucose (74-106) mg/dL Calcium (8.5-10.1) mg/dL Magnesium (1.8-2.4) mg/dL Total Bilirubin (0.2-1.0) mg/dL AST (15-37) U/L ALT (14-59) U/L Alkaline Phosphatase (46-116) U/L Troponin I (<or=60) ng/L Total Protein (6.4-8.2) g/dL Albumin (3.4-5.0) g/dL Urine Color (Yellow) Urine Clarity (Clear) Urine pH (5-8) Ur Specific [place] (1.005-1.025) Urine Protein (Negative) mg/dL Urine Ketones (Negative) mg/dL Urine Blood (Negative) Urine Nitrite (Negative) Urine Bilirubin (Negative) Urine Urobilinogen (Up TO 0.2) EU/dL Ur Leukocyte Esterase (Negative) Urine RBC (0-2) HPF Urine WBC (0-5) HPF Ur Epithelial Cells (Negative) HPF Urine Crystals (Negative) HPF Urine Bacteria (Negative) HPF Urine Mucus (Negative) Ur Culture Indicated? Urine Glucose (Negative) mg/dL Urine Opiates Screen (Negative) Urine Methadone Screen (Negative) Ur Barbiturates Screen (Negative) Ur Tricyclics Screen (Negative) Ur Amphetamines Screen (Negative) U Benzodiazepines Scrn (Negative) Urine Cocaine Screen (Negative) Ur THC Screen (Negative)
[2022-10-30] MEDS: LORazepam 2 MG/ML VIAL 1 MG IVP (15:52)
[2022-10-30 16:14] LABS: Source Nasal/Nares
--- NOTE | 2022-10-30 16:22 | HPE_ITS ---
Date of service: 10/30/22 Time of Service: 16:23 Assessment and Plan Assessment and plan (1) Episode of unresponsiveness: Status: Acute Assessment and plan: DDx: convulsive syncope, sz, myoclonus, psychogenic movements, sleep/sleep movement disorder MOnitor in the ICU. Continue empiric keppra. C/s neuro. Obtain EEG. (2) Chronic systolic CHF (congestive heart failure): Status: Chronic Assessment and plan: Euvolemic. Continue home management. (3) Ischemic cardiomyopathy: Status: Acute Assessment and plan: As above (4) Hallucinations: Status: Acute Assessment and plan: C/s mental health (5) Chronic respiratory failure with hypoxia: Status: Chronic Assessment and plan: Continue home oxygen. (6) Obstructive sleep apnea: Status: Chronic Assessment and plan: The patient uses (7) Fracture of finger, left: Status: Acute Assessment and plan: Splinted. F/u w/ ortho as outpatient (8) DVT prophylaxis: Status: Acute Assessment and plan: SC enoxaparin (9) Discharge planning issues: Status: Acute Assessment and plan: Full code Consult mental health History of Present Illness History of Present Illness Chief Complaint: I was told to come back to the hospital, convulsive episodes Narrative: Ms Monique is a 47 year old female with PMHx of HOGSHEAD STRIPPER/chronic systolic CHF (LVEF of 39%), as well as h/o IDDM2, RAQUEL, chronic hypoxic respiratory failure on 2.5- 3L of O2 by NC and not on CPAP, as well as episodes of unresponsiveness with witnessed convulsive activity observed on her last hospitalization here 10/28/22- 10/29/22, when the patient left [place], who presented back to the ER today for completion of her observation and neurologic workup. On her last admission here, the episode witnessed in the ED was not associated with an arrhythmia, the patient was not orthostatic, nor was she hypoglycemic. During that admission, she also had evidence of QT/QTc prolongation, for which methadone had been held. Finally, she had L hand pain due to a traumatic fracture of her 2nd phalanx of her 2nd digit which was splinted in the ED on 10/28/22. Due it being the weekend, the patient had not been examined by a neurologist during her short stay prior to leaving [place] and had not had an EEG. She did have a negative CT head w/o contrast as well as a negative MRI. Hospitalist admission was requested. Today her QTc is 491 msec and her methadone was again held in the ED. Her pain and w/d symptoms were treated with oxycodone and lorazepam. The patient is too somnolent to provide history on my interview. She does wake up and shakes her head no when I ask her if anything new has happened since I last saw her. Per ER, she had reported having a seizure at home. Finally, she was vaping in the ED. Review of Systems All systems reviewed & are unremarkable except as noted in HPI and below PFSH All Active Problems (Updated 10/30/22 @ 16:31 by Brii Baeza MD) Discharge planning issues (Acute) DVT prophylaxis (Acute) Episode of unresponsiveness (Acute) Chronic systolic CHF (congestive heart failure) (Chronic) Ischemic cardiomyopathy (Acute) Obstructive sleep apnea (Chronic) Hallucinations (Acute) Chronic respiratory failure with hypoxia (Chronic) Fracture of finger, left (Acute) Syncopal episodes (Chronic) Acute hypokalemia (Acute) Observed seizure-like activity (Acute) Opioid dependence on agonist therapy (Acute) Leg wound, left (Acute) Facial palsy (Acute) Pulmonary HTN (Acute) Heart failure (Acute) 09/02/21 with VA low EF Non-STEMI (non-ST elevated myocardial infarction) (Acute) 09/02/21 Vertigo (Acute) GERD (gastroesophageal reflux disease) (Chronic) Essential hypertension (Acute) Asthma (Chronic) Depression (Chronic) PTSD (post-traumatic stress disorder) (Acute) Tobacco abuse disorder (Acute) Hypokalemia (Acute) Chronic gout (Acute) Hyperlipidemia (Acute) Diabetic peripheral neuropathy (Acute) Type 2 diabetes mellitus (Chronic) Medical History COVID was vaccinated but contracted Covid 06/22 History of gastrointestinal ulcer Surgical History H/O bone graft left knee H/O shoulder surgery x4 and ending with a full replacement H/O total hysterectomy History of appendectomy History of colonoscopy History of esophagogastroduodenoscopy (EGD) gastritis with gastric ulcers Previous section x4 delivery Family History Mother Cancer Heart disease Obstructive lung disease Depression Arthritis Degeneration of intervertebral disc Father Alcohol use disorder Brother Hypertension Mood disorder Maternal Grandfather Alcohol use disorder Maternal Grandmother Breast cancer Maternal Aunt Breast cancer Paternal Aunt Breast cancer Social History Smoking/Tobacco Use Status: Current every day Tobacco Type: cigarettes Tobacco: How many years used: 34 Smoking risk assessment performed?: Yes Alcohol Intake: current Alcohol Intake frequency: holidays/special occasions only Alcohol type: beer Drug use: Never Substance use type: does not use Do you feel safe at home: Yes Do you feel safe in your relationship?: Yes Meds Allergies and Home Medications Allergies Allergy/AdvReac Type Severity Reaction Status Date / Time Bleach (Sodium Hypochlorite) Allergy Unknown Verified 10/30/22 13:51 mushroom Allergy Unknown Verified 10/30/22 13:51 Penicillins Allergy Unknown Verified 10/30/22 13:51 tramadol Allergy Unknown Verified 10/30/22 13:51 mold Allergy Verified 10/30/22 13:51 trazodone Allergy Unverified 10/30/22 13:51 Home Medications Medication Instructions Recorded Confirmed Type acetaminophen 325 mg capsule 975 mg PO Q8H PRN 10/18/21 10/30/22 History albuterol sulfate 2.5 mg/3 mL 2.5 mg inhalation Q6H PRN 10/18/21 10/30/22 History (0.083 %) solution for nebulization atorvastatin 80 mg tablet (Lipitor) 80 mg PO DAILY 10/18/21 10/30/22 History clopidogrel 75 mg tablet (Plavix) 75 mg PO DAILY 10/18/21 10/30/22 History ferrous sulfate 325 mg (65 mg 325 mg PO Q OTHER DAY 10/18/21 10/30/22 History iron) tablet,delayed release insulin degludec 200 unit/mL (3 120 unit subcut DAILY 10/18/21 10/30/22 History mL) subcutaneous pen (Tresiba FlexTouch U-200 insulin) insulin lispro 100 unit/mL 10 unit subcut QID 10/18/21 10/30/22 History subcutaneous pen (Humalog KwikPen (U-100) Insulin) magnesium oxide 400 mg (241.3 mg 400 mg PO BID 10/18/21 10/30/22 History magnesium) tablet (MagOx) metoprolol succinate 50 mg 25 mg PO DAILY PRN 10/18/21 10/30/22 History tablet,extended release 24 hr (Toprol XL) nitroglycerin 0.4 mg sublingual 0.4 mg sublingual Q5M PRN 10/18/21 10/30/22 History tablet (Nitrostat) methadone 10 mg/5 mL oral solution 120 mg PO DAILY 03/15/22 10/30/22 History carboxymethylcellulose sodium 0.5 1 drp OU QID #50 ea 08/15/22 10/30/22 Rx % eye drops in a dropperette (Refresh Plus) gabapentin 600 mg tablet 600 mg PO DIRECTED #20 tabs 08/15/22 10/30/22 Rx white petrolatum-mineral oil 56.8 1 applic OU BID #7 grams 08/15/22 10/30/22 Rx %-42.5 % eye ointment (Refresh Lacri-Lube) white petrolatum-mineral oil 80 1 applic ophthalmic (eye) 4-6XD 08/15/22 10/30/22 Rx %-20 % eye ointment (Soothe Night PRN #3.5 grams Time Lubricant) albuterol sulfate 90 mcg/actuation 2 inh inhalation Q3H PRN PRN 10/29/22 10/30/22 History aerosol inhaler (ProAir HFA) Shortness Of Breath Or Wheezing aspirin 81 mg tablet,delayed 81 mg PO DAILY 10/29/22 10/30/22 History release (Adult Low Dose Aspirin) benzonatate 100 mg capsule 100 mg PO TID PRN PRN Cough 10/29/22 10/30/22 History cetirizine 10 mg tablet (Zyrtec) 10 mg PO DAILY PRN PRN Allergy 10/29/22 10/30/22 History Symptoms citalopram 20 mg tablet (Celexa) 20 mg PO DAILY 10/29/22 10/30/22 History colchicine 0.6 mg tablet (Colcrys) 0.6 mg PO BID 10/29/22 10/30/22 History empagliflozin 10 mg tablet 10 mg PO DAILY 10/29/22 10/30/22 History (Jardiance) fluticasone propionate 45 2 inh inhalation BID 10/29/22 10/30/22 History mcg-salmeterol 21 mcg/actuation HFA inhaler (Advair HFA) folic acid 1 mg tablet 1 mg PO DAILY 10/29/22 10/30/22 History liraglutide 0.6 mg/0.1 mL (18 mg/3 mg subcut DAILY 10/29/22 History mL) subcutaneous pen injector (Victoza 3-Tanmay) pantoprazole 40 mg tablet,delayed 40 mg PO BID 10/29/22 10/30/22 History release (Protonix) potassium chloride 10 mEq 10 meq PO DAILY 10/29/22 10/30/22 History capsule,extended release torsemide 20 mg tablet 40 mg PO DAILY 10/29/22 10/30/22 History Exam Narrative Exam Narrative: General: Somnolent female who is arousable, but promptly falls back asleep, unable to assess orientation other than that she responds to her name, on 2L of O2 by NC, no respiratory distress Neurological: Somnolent, arousable, no obvious focal deficits Psychiatric: unable to assess Skin: Visible skin intact HEENT: Atraumatic, normocephalic, EOMI, dry MM, clear oropharynx, no submandibular or cervical lymphadenopathy, no goiter or JVD Cardiovascular: RRR, no m/r/g Lungs: CTAB anteriorly Gastrointestinal: soft, nondistended Genitourinary: deferred Extremities: no edema, +1 pedal pulses B, wearing B compression stockings Results Imaging Additional studies: EKG: NSR, HR 74, no acute ischemia, nonspecific ST-T changes, Labs Result diagrams: 10/30/22 14:15 10/30/22 14:15 Labs: Laboratory Results - last 24 hr 10/30/22 10/30/22 10/30/22 13:55 13:55 14:15 WBC RBC Hgb Hct MCV MCH MCHC RDW Plt Count MPV Immature Gran % Neutrophils % Lymphocytes % Monocytes % Eosinophils % Basophils % Nucleated RBC % Absolute Neutrophils Absolute Lymphocytes Absolute Monocytes Absolute Eosinophils Absolute Basophils Sodium 143 Potassium 3.8 Chloride 104 Carbon Dioxide 31.6 Anion Gap 7.4 BUN 25 H Creatinine 0.9 Est GFR (CKD-EPI 2020) 79.35 Glucose 160 H Calcium 9.2 Magnesium 2.3 Total Bilirubin 0.4 AST 18 ALT 24 Alkaline Phosphatase 143 H Troponin I < 50 Total Protein 7.5 Albumin 3.9 Urine Color Yellow Urine Clarity Clear Urine pH 6.5 Ur Specific Gattman 1.015 Urine Protein Negative Urine Ketones Negative Urine Blood Negative Urine Nitrite Negative Urine Bilirubin Negative Urine Urobilinogen 0.2 Ur Leukocyte Esterase Trace H Urine RBC 0-2 Urine WBC 3-5 Ur Epithelial Cells Few Urine Crystals Negative Urine Bacteria Few Urine Mucus Negative Ur Culture Indicated? Yes Urine Glucose 500 H Urine Opiates Screen Negative Urine Methadone Screen Positive A Ur Barbiturates Screen Negative Ur Tricyclics Screen Negative Ur Amphetamines Screen Negative U Benzodiazepines Scrn Negative Urine Cocaine Screen Negative Ur THC Screen Negative COVID-19 Source 10/30/22 10/30/22 14:15 16:09 WBC 8.93 RBC 4.98 Hgb 14.8 Hct 45.3 MCV 91 MCH 29.7 MCHC 32.7 RDW 15.1 H Plt Count 302 MPV 10.1 Immature Gran % 0.2 Neutrophils % 43.3 Lymphocytes % 38.7 Monocytes % 9.9 Eosinophils % 7.6 Basophils % 0.3 Nucleated RBC % 0.0 Absolute Neutrophils 3.86 Absolute Lymphocytes 3.46 H Absolute Monocytes 0.88 H Absolute Eosinophils 0.68 Absolute Basophils 0.03 Sodium Potassium Chloride Carbon Dioxide Anion Gap BUN Creatinine Est GFR (CKD-EPI 2020) Glucose Calcium Magnesium Total Bilirubin AST ALT Alkaline Phosphatase Troponin I Total Protein Albumin Urine Color Urine Clarity Urine pH Ur Specific Gattman Urine Protein Urine Ketones Urine Blood Urine Nitrite Urine Bilirubin Urine Urobilinogen Ur Leukocyte Esterase Urine RBC Urine WBC Ur Epithelial Cells Urine Crystals Urine Bacteria Urine Mucus Ur Culture Indicated? Urine Glucose Urine Opiates Screen Urine Methadone Screen Ur Barbiturates Screen Ur Tricyclics Screen Ur Amphetamines Screen U Benzodiazepines Scrn Urine Cocaine Screen Ur THC Screen COVID-19 Source Nasal/Nares Last Vital Signs Temp 36.9 C 10/30/22 15:07 Pulse 68 10/30/22 15:31 Resp 22 10/30/22 16:20 BP 98/64 L 10/30/22 15:31 Pulse Ox 92 10/30/22 16:20 Time Spent Time spent with Patient: 40-54 minutes Time was spent: preparing to see the patient(eg.review tests), obtaining and/or reviewing separately otained hiistory, ordering medications,tests, procedures, r eferring, communicating with other health career and guidance counselor, indepentently interpreting results, counseling the patient and care coordination
[2022-10-30 16:45] LABS: COVID-19 PCR Negative (Negative)
[2022-10-30] MEDS: Lactated Ringers 250 ML 75 ML IV (18:55)
[2022-10-30] MEDS: Enoxaparin 40 MG/0.4 ML SYR SC (20:33)
[2022-10-30] MEDS: Magnesium Oxide 400 MG TAB PO (20:34)
[2022-10-30] MEDS: Pantoprazole 40 MG TABCR PO (20:34)
[2022-10-30] MEDS: Budesonide/Formoterol 80/4.5 6.9 GM 60 PUFF INH IH (20:34)
[2022-10-30] MEDS: Refresh PLUS Eye Drops 0.4ml 1 EACH OU (20:35)
[2022-10-30] MEDS: Colchicine 0.6 MG TAB PO (20:35)
[2022-10-30] MEDS: levETIRAcetam 1,000 MG in Normal Saline 100 ML 400 MG IVPB (20:35)
[2022-10-30] MEDS: Atorvastatin 40 MG TAB 80 MG PO (20:41)
[2022-10-30 20:42] LABS: Troponin I < 50 ng/L (<or=60)
[2022-10-30] MEDS: Gabapentin 600 MG TAB 1200 MG PO (20:43)
[2022-10-31] VITALS (19 sets, daily range): BP systolic 82–105; BP diastolic 44–67; PULSE 71–85; RESP 12–28; TEMP 35.8–36.8; O2SAT 91–96
[2022-10-31] MEDS: oxyCODONE 5 MG TAB PO ×5 (04:40→20:33)
[2022-10-31 05:02] LABS: Anion Gap 4.5 mmol/L (3-11); BUN 23 mg/dL (7-18); CO2 31.5 mmol/L (21.0-32.0); CREATININE 0.8 mg/dL (0.55-1.02); Calcium 8.9 mg/dL (8.5-10.1); Chloride 106 mmol/L (98-107); Glucose 89 mg/dL (74-106); Magnesium 2.4 mg/dL (1.8-2.4); Potassium 3.6 mmol/L (3.5-5.1); Sodium 142 mmol/L (136-145)
[2022-10-31] MEDS: Budesonide/Formoterol 80/4.5 6.9 GM 60 PUFF INH IH ×2 (07:53→19:58)
[2022-10-31] MEDS: Refresh PLUS Eye Drops 0.4ml 1 EACH OU ×3 (08:25→19:52)
[2022-10-31] MEDS: Colchicine 0.6 MG TAB PO ×2 (08:25→19:51)
[2022-10-31] MEDS: Torsemide 20 MG TAB 40 MG PO (08:26)
[2022-10-31] MEDS: Potassium Chloride 10 MEQ CAPCR PO (08:26)
[2022-10-31] MEDS: Gabapentin 600 MG TAB PO ×2 (08:28→12:17)
[2022-10-31] MEDS: Ferrous Sulfate 325 MG TAB PO (08:28)
[2022-10-31] MEDS: levETIRAcetam 500 MG TAB PO ×2 (08:28→19:51)
[2022-10-31] MEDS: Aspirin E.C. 81 MG TABEC PO (08:29)
[2022-10-31] MEDS: Clopidogrel 75 MG TAB PO (08:29)
[2022-10-31] MEDS: Empaglifozin 10 MG TAB PO (08:29)
[2022-10-31] MEDS: Folic Acid 1 MG TAB PO (08:29)
[2022-10-31] MEDS: Citalopram 20 MG TAB PO (08:29)
[2022-10-31] MEDS: Magnesium Oxide 400 MG TAB PO ×2 (08:29→19:51)
--- NOTE | 2022-10-31 08:30 | RT.EKG_ITS ---
APPROVED REPORT Exam: Resting ECG Reason for Exam: f/u QT prolongation Patient Location: I HR:79 bpm ECG Measurements Heart Rate 79 AXIS [place] 159 P 32 QRSd 96 QRS 28 QT 412 T 81 QTc 473 Conclusion Sinus rhythm...normal P axis, V-rate 50- 99 Anteroseptal infarct, old...Q >40mS, V1-V2
[2022-10-31] MEDS: Lacri-Lube 3.5 GM TUBE 1 GM OU (08:32)
[2022-10-31] MEDS: Trimethobenzamide 200 MG/2 ML VIAL IM (10:12)
--- NOTE | 2022-10-31 11:05 | PDOC.CMIN ---
- If Service Date Differs Date of service: 10/31/22 Time of Service: 11:05 Care Management Initial Assess REASON FOR HOSPITALIZATION:: Convulsive unresponsive episodes PAST MEDICAL HISTORY/PAST SURGICAL HISTORY:: Medical History . COVID. was vaccinated but contracted Covid 06/22. History of gastrointestinal ulcer. Surgical History . H/O bone graft. left knee. H/O shoulder surgery. x4 and ending with a full replacement. H/O total hysterectomy. History of appendectomy. History of colonoscopy. History of esophagogastroduodenoscopy (EGD). gastritis with gastric ulcers. Previous section. x4 delivery PREVIOUS FUNCTIONAL STATUS/SOCIAL/FAMILY SUPPORTS:: Aracelis lives in [place] with her son and his 3 month old. She is unemployed and on SSDI due to her health decline. Aracelis does not drive and uses [facility] for transportation. Aracelis has [facility] HH RN and INSPECTING MACHINE ADJUSTER services. Her INSPECTING MACHINE ADJUSTER through the [facility] is Georgette. Per pt, she has assisted living care and residential housekeeper services through [facility]. She has $2,000 in DME to use and she is trying to get a hospital bed. CURRENT FUNCTIONAL STATUS:: Aracelis is sittin up in bed in the ICU. She is awake, alert and able to engage in conversation. Aracelis would like her son to visit her in the ICU with his 3 month old. Per Aracelis, her [place] [facility] [place] feeding [place]. Visiting policy is reviewed with patient. CM will follow. ADVANCE DIRECTIVES:: None on file. Has patient been provided with info about the portal/API?: Yes Did the patient sign up for the portal?: No CODE STATUS:: Full Code INSURANCE COVERAGE / FINANCIAL ISSUES:: Medicaid. Medicare CURRENT HOME/COMMUNITY SERVICES/EQUIPMENT:: Enrique/ Norberto ESPINOSA RN and INSPECTING MACHINE ADJUSTER(Carol). Assisted living care and residential housekeeper services through [facility]. SSDI. [facility](Kishan) PRIMARY CARE PHYSICIAN:: Valentin Parekh POTENTIAL DISCHARGE NEEDS:: Resumption of [facility] and [facility] RN/INSPECTING MACHINE ADJUSTER services. Outpatient follow up appointments with PCP and Neurology. Last dose letter/TRINI PATIENT/FAMILY EDUCATION NEEDS:: Review discharge instructions, limitations, medications and plan to follow up with community providers. Discuss ask me three and goals of self care. TRANSPORTATION:: via [facility] private vehicle. PLAN:: Anticipate December will discharge home when medically ready. [facility] will be arranged for transportation. Discharge needs at this time are Outpatient Neurology, Outpatient EEG if not obtainable during this admission. She will also need an outpatient follow up with Ortho. She will resume Enrique/Norberto ESPINOSA RN/INSPECTING MACHINE ADJUSTER and Services through [facility].
[2022-10-31] MEDS: Insulin Aspart 300 UNITS/3 ML PEN 10 UNITS SC ×2 (12:15→17:10)
[2022-10-31] MEDS: Insulin Aspart 300 UNITS/3 ML PEN SC (12:16)
--- NOTE | 2022-10-31 15:38 | PDOC.EEG ---
Neurology EEG EEG: [facility] Department of Neurology INPATIENT EEG REPORT Date of Recordin10/31/22 Interpreting Physician: Dr. Sharmin Elliott Reason for study: Ms. Monique is a 47 year-old admitted with recurrent episodes of ALEX, some with seizure like activity. Current Medications: Current Medications Acetaminophen (Acetaminophen 325 Mg Tab) 0 mg PO Q4H PRN PRN Al Hydrox/Mg Hydrox/Simethicone (Mylanta Suspension 30 Ml Cup) 30 ml PO Q2H PRN PRN Albuterol Sulfate (Albuterol Hfa 8 Gm 60 Puff Inh) 2 puff IH Q3H PRN PRN PRN Reason: Shortness Of Breath Or Wheezing Albuterol Sulfate (Albuterol 2.5 Mg/3 Ml Inh Soln Vial) 2.5 mg IH Q6H PRN PRN Aspirin (Aspirin E.C. 81 Mg Tabec) 81 mg PO DAILY [facility] Last Admin: 10/31/22 08:29 Dose: 81 mg Atorvastatin Calcium (Atorvastatin 40 Mg Tab) 80 mg PO QPM [facility] Last Admin: 10/30/22 20:41 Dose: 80 mg Benzonatate (Benzonatate 100 Mg Cap) 100 mg PO TID PRN PRN PRN Reason: Cough Budesonide/Formoterol Fumarate (Budesonide/Formoterol 80/4.5 6.9 Gm 60 Puff Inh) 2 puff IH BID [facility] Last Admin: 10/31/22 07:53 Dose: 2 puff Carboxymethylcellulose Sodium (Refresh Plus Eye Drops 0.4ml) 1 each OU QID [facility] Last Admin: 10/31/22 12:16 Dose: 1 each Citalopram Hydrobromide (Citalopram 20 Mg Tab) 20 mg PO DAILY [facility] Last Admin: 10/31/22 08:29 Dose: 20 mg Clopidogrel Bisulfate (Clopidogrel 75 Mg Tab) 75 mg PO DAILY [facility] Last Admin: 10/31/22 08:29 Dose: 75 mg Colchicine (Colchicine 0.6 Mg Tab) 0.6 mg PO BID [facility] Last Admin: 10/31/22 08:25 Dose: 0.6 mg Device (Inhaler, Assist Device) 1 each MC DIRECTED ALAN Dextrose (Glucose Oral Gel 15 Gm/37.5 Gm Tube) 0 gm PO DIRECTED PRN Dextrose/Water (Dextrose 50%-Water 25 Gm/50 Ml Syr) 0 gm IVP DIRECTED PRN Dimethicone/Zinc Oxide (Meche Protect Cream 142 Gm Tube) 0 gm TP PRN PRN Docusate Sodium (Docusate Sodium 100 Mg Cap) 100 mg PO TID PRN PRN Empagliflozin (Empaglifozin 10 Mg Tab) 10 mg PO DAILY [facility] Last Admin: 10/31/22 08:29 Dose: 10 mg Enoxaparin Sodium (Enoxaparin 40 Mg/0.4 Ml Syr) 40 mg SC Q24H [facility] Ferrous Sulfate (Ferrous Sulfate 325 Mg Tab) 325 mg PO Q48H [facility] Last Admin: 10/31/22 08:28 Dose: 325 mg Folic Acid (Folic Acid 1 Mg Tab) 1 mg PO DAILY [facility] Last Admin: 10/31/22 08:29 Dose: 1 mg Gabapentin (Gabapentin 600 Mg Tab) 600 mg PO 0830,1200 [facility] Last Admin: 10/31/22 12:17 Dose: 600 mg Gabapentin (Gabapentin 600 Mg Tab) 1,200 mg PO QPM [facility] Last Admin: 10/30/22 20:43 Dose: 1,200 mg Hydroxyzine HCl (Hydroxyzine Hcl 25 Mg Tab) 25 mg PO QID PRN PRN Sodium Chloride (Saline 500ml Bag) 500 mls @ 0 mls/hr IV PRN PRN IV Miscellaneous Supplies (Iv Access) 1 each IV DIRECTED [facility] Insulin Aspart (Insulin Aspart 300 Units/3 Ml Pen) 0 units SC 0800,1200,1700,2200 [facility]; Protocol Last Admin: 10/31/22 12:16 Dose: 3 units Insulin Aspart (Insulin Aspart 300 Units/3 Ml Pen) 10 units SC 0800,1200,1700,2200 [facility] Last Admin: 10/31/22 12:15 Dose: 10 units Insulin Glargine (Insulin Glargine 300 Units/3 Ml Pen) 48 units SC BID [facility] Levetiracetam (Levetiracetam 500 Mg Tab) 500 mg PO BID [facility] Last Admin: 10/31/22 08:28 Dose: 500 mg Magnesium Hydroxide (Milk Of Magnesia 30 Ml Cup) 30 ml PO DAILY PRN PRN Magnesium Oxide (Magnesium Oxide 400 Mg Tab) 400 mg PO BID [facility] Last Admin: 10/31/22 08:29 Dose: 400 mg Methadone HCl (Methadone Liquid 10 Mg/Ml) 120 mg PO DAILY [facility] Metoprolol Succinate (Metoprolol Cr 50 Mg Tabcr) 25 mg PO DAILY PRN PRN Mineral Oil/White Petrolatum (Lacri-Lube 3.5 Gm Tube) 1 gm OU BID [facility] Last Admin: 10/31/22 08:32 Dose: 1 drp Nicotine (Nicotine 10 Mg/Cartridge 30 Cart/Pkg) 0 cartridge IH Q2H PRN PRN Last Admin: 10/31/22 11:30 Dose: 1 cartridge Nitroglycerin (Nitroglycerin 0.4 Mg Tab) 0.4 mg SL Q5 MIN PRN X3 PRN Oxycodone HCl (Oxycodone 5 Mg Tab) 5 - 10 mg PO Q4H PRN PRN Stop: 11/01/22 06:00 Last Admin: 10/31/22 12:16 Dose: 5 mg Pantoprazole Sodium (Pantoprazole 40 Mg Tabcr) 40 mg PO BID@0730,1999 [facility] Potassium Chloride (Potassium Chloride 10 Meq Capcr) 10 meq PO DAILY [facility] Last Admin: 10/31/22 08:26 Dose: 10 meq Sodium Chloride (Normal Saline Flush 10 Ml Syr) 0 ml IVP PRN PRN Torsemide (Torsemide 20 Mg Tab) 40 mg PO DAILY [facility] Last Admin: 10/31/22 08:26 Dose: 40 mg Trimethobenzamide HCl (Trimethobenzamide 200 Mg/2 Ml Vial) 200 mg IM QID PRN PRN METHODS: A 21 channel digitized electroencephalogram was performed in the [facility] Med/Surg Floor or ICU. The 10/20 international system of electrode placement was used and bipolar and referential electrode montages were recorded. In addition to EEG the patient was monitored for EKG and lateral/vertical eye movements. Activation procedures of photic stimulation and hyperventilation were performed if applicable. Video was used during activation procedures and during events where applicable. The duration of the recording was 30 minutes. DESCRIPTION OF EEG: The patient was noted to be primarily asleep during the recording, though there was a short time of wakefulness. During brief maximal wakefulness an 8.5-Hz posterior background rhythm was present which was well-modulated, symmetrical, reactive to eye opening, and of moderate voltage. With eye opening the background activity changed to a low voltage mixture of alpha, beta, and occasional theta range frequencies. Faster frequencies were present in the bilateral anterior head regions. There was a normal anterior-posterior voltage gradient. During drowsiness, there was attenuation of the posterior dominant background rhythm and vertex waves. Stage II sleep was present with symmetrical sleep spindles, K-complexes, and vertex waves. No epileptiform discharges or activity seen. Activating Procedures: Photic stimulation was performed which produced no posterior driving response. Hyperventilation was not performed. EKG: EKG revealed normal sinus rhythm. INTERPRETATION: This EEG is normal during the awake (brief) and sleep states as well as during photic stimulation. PRIOR EEG: none CLINICAL CORRELATION: No focal regions of cerebral dysfunction or epileptiform activity was present. Epilepsy remains a clinical diagnosis and a normal EEG does not rule out epilepsy. Clinical correlation is advised. Sharmin Elliott MD
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
--- NOTE | 2022-10-31 19:08 | W.PM.DS.N ---
Date of service: 10/31/22 Time of Service: 19:08 DS: Diagnosis Discharge Diagnosis (1) Nonspecific paroxysmal spell: Status: Acute (2) Hallucinations: Status: Acute (3) Obstructive sleep apnea: Status: Chronic (4) Episode of unresponsiveness: Status: Acute (5) Ischemic cardiomyopathy: Status: Acute (6) Chronic systolic CHF (congestive heart failure): Status: Chronic (7) Chronic respiratory failure with hypoxia: Status: Chronic (8) Fracture of finger, left: Status: Acute (9) QT prolongation: Status: Acute Discharge Plan Disposition Patient Disposition: Home Condition: Stable Discharge Details Reason For Visit: Convulsive Unresponsive Episodes Admit Date/Time: 10/30/22 16:14 Admit Provider: Brii Baeza Attending Provider: Brii Baeza Primary Care Provider: Valentin Parekh Hospital Course Hospital Course: Ms Monique is a 47 year old female with PMHx of ICMO/chronic systolic CHF (LVEF of 39%), as well as h/o IDDM2, RAQUEL, chronic hypoxic respiratory failure on 2.5- 3L of O2 by NC and not on CPAP, as well as episodes of unresponsiveness, who was re-admitted to [facility] ICU under the hospitalist service on 10/31/22, having left AMA the day before, for unresponsive spells accompanied by convulsive activity. On this admission, she did not have any more episodes after one again witnessed in the ED.She was initiated on keppra yet again. She underwent an EEG, not c/w epileptiform discharges, and a neurology consultation.?Dr Elliott suspects that the patient may have sleep-related events resulting in jerking movements related to untreated sleep apnea. The patient needs to follow up with the sleep clinic. She is still recommended to remain on keppra since she has not had any recurrent events since being re-initiated on it. She should follow up with Dr Elliott in 4-6 weeks in her clinic. She should not drive. As far as her QTc prolongation, I reviewed her EKGs with Dr Mendenhall of Cardiology who felt that the QTc interval was actually shorter than the machine-calculated one, therefore likely making it safe for the patient to resume her methadone use on discharge. Until this can happen tomorrow, because she states she is in significant pain from her L hand 2nd digit fracture, a very short course of oxycodone is being prescribed, as is narcan. Care for patient as well as completion of her discharge summary on day of discharge took 45 minutes. Home Meds and New Rx's Prescriptions: New levetiracetam 500 mg Tablet 500 mg PO BID Qty: 60 0RF oxycodone 5 mg Tablet 5 - 10 mg PO Q4H PRN PRNQty: 10 0RF naloxone [Narcan] 4 mg/actuation spray,non-aerosol 4 mg intranasal Q2-3M PRNQty: 2 0RF Rx Instructions: spray 1 dose into ONE nostril; alternate nostrils w each dose until help arrives Continued acetaminophen 325 mg capsule 975 mg PO Q8H PRN atorvastatin [Lipitor] 80 mg tablet 80 mg PO DAILY clopidogrel [Plavix] 75 mg tablet 75 mg PO DAILY ferrous sulfate 325 mg (65 mg iron) tablet,delayed release (DR/EC) 325 mg PO Q OTHER DAY Tresiba FlexTouch U-200 200 unit/mL (3 mL) insulin pen 120 unit subcut DAILY magnesium oxide [MagOx] 400 mg (241.3 mg magnesium) tablet 400 mg PO BID metoprolol succinate [Toprol XL] 50 mg tablet extended release 24 hr 25 mg PO DAILY PRN nitroglycerin [Nitrostat] 0.4 mg tablet, sublingual 0.4 mg sublingual Q5M PRN Rx Instructions: do not exceed 3 doses per episode albuterol sulfate 2.5 mg /3 mL (0.083 %) solution for nebulization 2.5 mg inhalation Q6H PRN insulin lispro [Humalog KwikPen Insulin] 100 unit/mL insulin pen 10 unit subcut QID methadone 10 mg/5 mL Solution 120 mg PO DAILY Refresh Lacri-Lube 56.8-42.5 % Ointment 1 applic OU BID Qty: 7 0RF gabapentin 600 mg Tablet 600 mg PO DIRECTED Qty: 20 0RF Rx Instructions: 600 mg PO q am and at noon; 1200 mg PO Qpm carboxymethylcellulose sodium [Refresh Plus] 0.5 % Dropperette 1 drp OU QID Qty: 50 0RF Soothe Night Time Lubricant 80-20 % ointment 1 applic ophthalmic (eye) 4-6XD PRNQty: 3.5 0RF potassium chloride 10 mEq capsule, extended release 10 meq PO DAILY Label Comments: TAKE ONE CAPSULE BY MOUTH EVERY DAY torsemide 20 mg tablet 40 mg PO DAILY Label Comments: TAKE ONE TABLET BY MOUTH EVERY DAY cetirizine [Zyrtec] 10 mg tablet 10 mg PO DAILY PRN PRN (Reason: Allergy Symptoms) Label Comments: TAKE ONE TABLET BY MOUTH EVERY DAY NEEDED aspirin [Adult Low Dose Aspirin] 81 mg tablet,delayed release (DR/EC) 81 mg PO DAILY Label Comments: TAKE ONE TABLET BY MOUTH EVERY DAY citalopram [Celexa] 20 mg tablet 20 mg PO DAILY Label Comments: TAKE ONE TABLET BY MOUTH EVERY DAY benzonatate 100 mg capsule 100 mg PO TID PRN PRN (Reason: Cough) Label Comments: TAKE ONE CAPSULE BY MOUTH THREE TIMES A DAY NEEDED folic acid 1 mg tablet 1 mg PO DAILY Label Comments: TAKE ONE TABLET BY MOUTH EVERY DAY albuterol sulfate [ProAir HFA] 90 mcg/actuation HFA aerosol inhaler 2 inh INHALATION Q3H PRN PRN (Reason: Shortness Of Breath Or Wheezing) Label Comments: INHALE TWO PUFFS BY MOUTH EVERY 3 HOURS NEEDED colchicine [Colcrys] 0.6 mg tablet 0.6 mg PO BID Label Comments: TAKE ONE TABLET BY MOUTH TWICE A DAY Advair HFA 45-21 mcg/actuation HFA aerosol inhaler 2 inh INHALATION BID Label Comments: INHALE TWO PUFFS BY MOUTH TWICE A DAY Victoza 3-Tanmay 0.6 mg/0.1 mL (18 mg/3 mL) pen injector SUBCUT DAILY Label Comments: INJECT 0.6 MG UNDER THE SKIN ONCE DAILY TITRATE UP TOLERATED TO 1.2 MG DAILY, THEN MAINTAINANCE AT 1.8 MG DAILY Jardiance 10 mg tablet 10 mg PO DAILY Label Comments: TAKE ONE TABLET BY MOUTH EVERY DAY pantoprazole [Protonix] 40 mg tablet,delayed release (DR/EC) 40 mg PO BID Label Comments: TAKE ONE TABLET BY MOUTH TWICE A DAY Discharge Instructions Instructions: Oxycodone, Rapid Release (By mouth), Levetiracetam (By mouth), Naloxone (Into the nose), Syncope (DC), Generalized Tonic Clonic Seizures (DC) Additional Instructions: Return to the hospital with any more unresponsive events, if you have a fever, bleeding, chest pain, or shortness of breath. Per cardiology you may resume methadone. Follow up with your PCP in 1-2 weeks, with Dr Elliott in 4-6 weeks (neurology), and with sleep clinic. F/u with orthopedics in 1-[address] Follow seizure precautions. Referrals: Valentin Parekh [Primary Care Provider] - Sharmin Elliott MD [ [facility] STAFF PHYSICIAN] - Michel Sanchez MD [ [facility] STAFF PHYSICIAN] - SLEEP CLINIC,[facility] [OTHER] - Activity:: Activity as Tolerated Equipment/Supplies:: No Equipment Needed Diet:: carb consistent heart healthy Discharge Orders Discharge Orders: Discharge Order (Routine); Ordered 10/31/22 Ordered By: Brii Baeza DS: Summary Time Spent with Patient providing and/or coordinating discharge services: Greater than 30 minutes Status at Discharge Functional status at discharge: independent ambulation Overall status at discharge: patient is back to baseline Mental Status: mental status grossly normal Speech and Movement: speech and movement normal Mood: congruent mood Affect: normal affect Exam Narrative Exam Narrative: General: MIddle-aged female who is somnolent but arousable HEENT: EOMI, MMM Cardiovascular: RRR, no m/r/g Lungs: CTAB anteriorly Gastrointestinal: soft, nondistended Extremities: no edema, +1 pedal pulses B, wearing B compression stockings Psych Mental Status: mental status grossly normal Speech and Movement: speech and movement normal Mood: congruent mood Affect: normal affect DS: Data Vitals/I&O Vitals and I&O: Vital Signs Temperature 35.9 C L 10/31/22 16:10 Temperature Source Temporal Artery Scan 10/31/22 16:10 Pulse 85 10/31/22 18:01 Pulse 84 10/31/22 18:01 Respiratory Rate 28 H 10/31/22 18:01 Respiratory Effort Non-Labored 10/31/22 16:10 Respiratory Depth Normal 10/31/22 16:10 Respiratory Pattern Normal 10/31/22 16:10 Blood Pressure 86/44 L 10/31/22 18:01 Blood Pressure Mean 54 10/31/22 18:01 Blood Pressure Position Supine 10/31/22 16:10 Pulse Oximetry 94 10/31/22 18:01 Oxygen Delivery Method Nasal Cannula 10/31/22 16:10 Oxygen Flow Rate 2 10/31/22 16:10 Pain Level 0 01/30/23 16:10 Intake & Output 10/30/22 10/31/22 10/31/22 23:59 11:59 23:59 Intake Total 370 / 370 1340 / 1820 480 / 1820 Output Total 850 / 850 1750 / 3125 1375 / 3125 Balance -480 / -480 -410 / -1305 -895 / -1305 Weight 81.4 kg Intake: IV 370 / 370 Oral 1340 / 1820 480 / 1820 Output: Urine 850 / 850 1750 / 3125 1375 / 3125 Other: Urine Color Yellow Pale Yellow Yellow Urine Appearance Clear Clear Clear Urine Odor Normal None Strong Comment previous C-sectionx4 delivery, s/p total hysterectomy pt voiding in BSC voiding in BSC Voiding Methods Bedside Commode Bedside Commode Bedside Commode Data Completed and Pending Completed studies during hospitalization [Text1]: EEG 10/31/22: This EEG is normal during the awake (brief) and sleep states as well as during photic stimulation. No focal regions of cerebral dysfunction or epileptiform activity was present.? Epilepsy remains a clinical diagnosis and a normal EEG does not rule out epilepsy.? Clinical correlation is advised. Labs on day of discharge: Labs from last 24 hours 10/31/22 10/30/22 04:40 20:15 Sodium 142 Potassium 3.6 Chloride 106 Carbon Dioxide 31.5 Anion Gap 4.5 BUN 23 H Creatinine 0.8 Est GFR (CKD-EPI 2020) 91.40 Glucose 89 Calcium 8.9 Magnesium 2.4 Troponin I < 50 Preliminary micro results at discharge 10/30/22 13:55 Urine Culture - Preliminary Urine - Reflex from Ua Gram Positive Gabriella,Mixed PFSH All Active Problems (Updated 10/31/22 @ 19:09 by Brii Baeza MD) QT prolongation (Acute) Nonspecific paroxysmal spell (Acute) Discharge planning issues (Acute) DVT prophylaxis (Acute) Episode of unresponsiveness (Acute) Chronic systolic CHF (congestive heart failure) (Chronic) Ischemic cardiomyopathy (Acute) Obstructive sleep apnea (Chronic) Hallucinations (Acute) Chronic respiratory failure with hypoxia (Chronic) Fracture of finger, left (Acute) Syncopal episodes (Chronic) Acute hypokalemia (Acute) Observed seizure-like activity (Acute) Opioid dependence on agonist therapy (Acute) Leg wound, left (Acute) Facial palsy (Acute) Pulmonary HTN (Acute) Heart failure (Acute) 09/02/21 with KS low EF Non-STEMI (non-ST elevated myocardial infarction) (Acute) 09/02/21 Vertigo (Acute) GERD (gastroesophageal reflux disease) (Chronic) Essential hypertension (Acute) Asthma (Chronic) Depression (Chronic) PTSD (post-traumatic stress disorder) (Acute) Tobacco abuse disorder (Acute) Hypokalemia (Acute) Chronic gout (Acute) Hyperlipidemia (Acute) Diabetic peripheral neuropathy (Acute) Type 2 diabetes mellitus (Chronic) Medical History COVID was vaccinated but contracted Covid 06/22 History of gastrointestinal ulcer Surgical History H/O bone graft left knee H/O shoulder surgery x4 and ending with a full replacement H/O total hysterectomy History of appendectomy History of colonoscopy History of esophagogastroduodenoscopy (EGD) gastritis with gastric ulcers Previous section x4 delivery Family History Mother Cancer Heart disease Obstructive lung disease Depression Arthritis Degeneration of intervertebral disc Father Alcohol use disorder Brother Hypertension Mood disorder Maternal Grandfather Alcohol use disorder Maternal Grandmother Breast cancer Maternal Aunt Breast cancer Paternal Aunt Breast cancer Social History Smoking/Tobacco Use Status: Current every day Tobacco Type: cigarettes Tobacco: How many years used: 34 Smoking risk assessment performed?: Yes Alcohol Intake: current Alcohol Intake frequency: holidays/special occasions only Alcohol type: beer Drug use: Never Substance use type: does not use Do you feel safe at home: Yes Do you feel safe in your relationship?: Yes Time Spent with Patient Time Spent with Patient: 45-69 minutes Time was spent: preparing to see the patient(eg.review tests), obtaining and/or reviewing separately otained hiistory, ordering medications,tests, procedures, referring, communicating with other health nurse behavioral health care, indepentently interpreting results, counseling the patient and care coordination
[2022-10-31] MEDS: Atorvastatin 40 MG TAB 80 MG PO (19:51)
[2022-10-31] MEDS: Pantoprazole 40 MG TABCR PO (19:51)
[2022-10-31] MEDS: Gabapentin 600 MG TAB 1200 MG PO (19:51)
[2022-10-31] MEDS: Acetaminophen 325 MG TAB PO (19:51)
[2022-10-31] MEDS: Insulin Glargine 300 UNITS/3 ML PEN 48 UNITS SC (19:59)
== END 2022-10-31 20:55 | disposition home or self-care (01) | DRG 101 ==
LOC: ER 16:21 → ICU 17:40
PROVIDERS: Admitting Provider Internal Medicine; Emergency Provider Physician Assistant; PCP Family Medicine; Visit Provider Internal Medicine
DX: R56.9 Unspecified convulsions (principal); I50.22 Chronic systolic (congestive) heart failure; J96.11 Chronic respiratory failure with hypoxia; F11.20 Opioid dependence, uncomplicated; R41.89 Other symptoms and signs involving cognitive functions and awareness; I25.5 Ischemic cardiomyopathy; J44.9 Chronic obstructive pulmonary disease, unspecified; G47.33 Obstructive sleep apnea (adult) (pediatric); S62.621D Displaced fracture of middle phalanx of left index finger, subsequent encounter for fracture with routine healing; W19.XXXD Unspecified fall, subsequent encounter; E87.6 Hypokalemia; I27.20 Pulmonary hypertension, unspecified; G51.0 Bell's palsy; I25.2 Old myocardial infarction; K21.9 Gastro-esophageal reflux disease without esophagitis; I11.0 Hypertensive heart disease with heart failure; F32.A Depression, unspecified; E78.5 Hyperlipidemia, unspecified; E11.42 Type 2 diabetes mellitus with diabetic polyneuropathy; M1A.9XX0 Chronic gout, unspecified, without tophus (tophi); Z79.4 Long term (current) use of insulin; I10 Essential (primary) hypertension; F10.11 Alcohol abuse, in remission; Z95.5 Presence of coronary angioplasty implant and graft; R94.31 Abnormal electrocardiogram [ECG] [EKG]; R44.1 Visual hallucinations
CPT/HCPCS: 36415; 36416; 80048; 80053; 80307; 82962; 87635; 93005; 94640; 95819; 96374; 99223; 99285; J1650; 81003; 81015; 83735; 84484; 85025; 87086; 93010; 95816; 99239; J1953; J2060

== ENCOUNTER 2022-11-13 19:27 | Emergency (ER) | payer MEDICARE, MEDICAID, SELFPAY ==
[2022-11-13] VITALS (24 sets, daily range): BP systolic 77–98; BP diastolic 39–62; PULSE 64–84; RESP 12–25; TEMP 36.7; O2SAT 94–99
--- NOTE | 2022-11-13 19:30 | RT.EKG_ITS ---
APPROVED REPORT Exam: Resting ECG Reason for Exam: syncope Patient Location: E HR:75 bpm ECG Measurements Heart Rate 75 AXIS MI 176 P 23 QRSd 97 QRS 51 QT 516 T 64 QTc 575 Conclusion Sinus rhythm...normal P axis, V-rate 60- 99 Anteroseptal infarct, old...Q >40mS, V1-V2 Prolonged QT interval...QTc >510mS
--- NOTE | 2022-11-13 19:45 | DI.RAD_ITS ---
Exam(s) XR CHEST 2V PA LATERAL EXAM: XR CHEST 2V PA LATERAL CLINICAL HISTORY: HI, syncope TECHNIQUE: 2D digital imaging was performed. COMPARISON: CR,XR XR CHEST 1V IN DI DEPT from 08/14/2022 FINDINGS: HEART: Normal size. Aorta: Not dilated. PULMONARY VASCULATURE: Normal. LUNGS: Clear. PLEURAL SPACE: No pleural effusion or pneumothorax. BONE:Unremarkable for age. Left shoulder prosthesis. IMPRESSION: No acute abnormality. DATA REPOSITORY: RADIATION DOSE DELIVERED:
--- NOTE | 2022-11-13 19:45 | DI.CT_ITS ---
Exam(s) CT HEAD CERVICAL SPINE WO EXAM: CT HEAD CERVICAL SPINE WO CLINICAL HISTORY: HI, syncope, on asa and plavix. TECHNIQUE: Imaging Protocol: Axial computed tomography images with coronal and sagittal reformatted images were created and reviewed COMPARISON: CT CT HEAD WO from 10/28/2022 FINDINGS: Head CT Ventricles and Extra axial spaces: Normal in size and morphology for the patient's age. Hemorrhage: None. Cerebral parenchyma: Normal. Midline shift: None. Brainstem/Cerebellum: Normal. Calvarium: Normal. Visualized Paranasal sinuses/Mastoids: Clear. Cervical Spine CT BONES: Vertebral body heights are maintained. Alignment is normal. There is no evidence of acute frac ture. Degenerative disc changes and facet degenerative changes are seen . SOFT TISSUES: No paraspinal hematoma. The airway appears intact. No pneumothorax is seen at the lung apices. IMPRESSION: Head CT: No acute abnormality. C-spine CT: Degenerative changes, no acute abnormality. RADIATION DOSE DELIVERED: 2,035.73mGy.cm Total DLP DATA REPOSITORY: All CT scans at this facility are submitted to the National Radiology Data Registry (NRDR) Dose Index Registry (DIR) with the [employer] ([employer]). RADIATION OPTIMIZATION: All CT scans at this facility use at least one of these dose optimization te chniques: automated exposure control; mA and/or kV adjustment per patient size (includes targeted exa ms where dose is matched to clinical indication); or iterative reconstruction.
[2022-11-13] MEDS: ACETAMINOPHEN 1,000 MG/100 ML BTL 400 MG IVPB (20:35)
[2022-11-13 20:39] LABS: Abs Immature Grans 0.02 10^3/uL (0.0-0.06); Absolute Basophil Count 0.03 10^3/uL (0.0-0.2); Absolute Lymphocyte Count 3.14 10^3/uL (1.2-3.4); Absolute Monocyte Count 0.76 10^3/uL (0.1-0.8); Basophils % 0.3; Eosinophils % 4.2; HCT 41.1 % (36.0-46.0); HGB 13.3 g/dL (11.2-15.7); Immature Grans % 0.2; Lymphocytes % 32.9; MCH 29.5 pg (27.0-33.0); MCHC 32.4 % (32.0-36.0); MCV 91 fL (80-95); MPV 9.8 fL (8.0-11.0); Neutrophils % 54.4; Platelet Count 345 10^3/uL (130-400); RBC 4.51 10^6/uL (3.93-5.22); RDW 14.8 % (11.7-14.6); RDW-SD 49.4 fL; WBC 9.55 10^3/uL (4.4-10.8)
--- NOTE | 2022-11-13 20:43 | DI.VRAD_ITS ---
PROCEDURE INFORMATION: Exam: CT Head Without Contrast Exam date and time: 11/13/2022 8:13 PM Age: 47 years old Clinical indication: Injury or trauma; Fall; Blunt trauma (contusions or hematomas); With loss of consciousness; Not specified; Injury date: 11/13/22; Injury details: Hi, syncope, on asa and plavix TECHNIQUE: Imaging protocol: Computed tomography of the head without contrast. Radiation optimization: All CT scans at this facility use at least one of these dose optimization techniques: automated exposure control; mA and/or kV adjustment per patient size (includes targeted exams where dose is matched to clinical indication); or iterative reconstruction. COMPARISON: MR BRAIN WO/W 10/28/2022 3:36 PM FINDINGS: Brain: No acute intracranial hemorrhage, mass-effect, midline shift, or extra-axial collection is seen. The jin white matter differentiation appears preserved. Cerebral ventricles: The ventricular system and basilar cisterns appear appropriate in size and configuration. Paranasal sinuses: There is patchy mucoperiosteal thickening in the paranasal sinuses. No air-fluid levels are seen. Mastoid air cells: There is opacification of a few clustered inferior right mastoid air cells. Otherwise, the mastoid air cells appear clear. Auditory system: The middle ear cavities appear clear. Orbital cavities: The globes and intraorbital structures appear grossly intact. Dental: The teeth are not well evaluated; however, there is a large dental cavity in the right anterior mandibular molar. There appear to be additional smaller dental cavities in the anterior maxillary teeth. Bones/joints: The bony calvarium appears intact. No depressed skull fracture is seen. Soft tissues: No gross focal scalp hematoma is seen. IMPRESSION: 1. No acute intracranial hemorrhage or depressed skull fracture. 2. Large dental cavity in the anterior right mandibular molar. Probable additional smaller dental cavities in the anterior maxilla. Follow-up with a dentist is recommended. PROCEDURE INFORMATION: Exam: CT Cervical Spine Without Contrast Exam date and time: 11/13/2022 8:13 PM Age: 47 years old Clinical indication: Injury or trauma; Fall; Blunt trauma (contusions or hematomas); With loss of consciousness; Not specified; Injury date: 11/13/22; Injury details: Hi, syncope, on asa and plavix TECHNIQUE: Imaging protocol: Computed tomography of the cervical spine without contrast. Radiation optimization: All CT scans at this facility use at least one of these dose optimization techniques: automated exposure control; mA and/or kV adjustment per patient size (includes targeted exams where dose is matched to clinical indication); or iterative reconstruction. COMPARISON: CT BRAIN NECK CTA 08/14/2022 7:29 PM FINDINGS: Limitations: Motion and streak artifact. Bones/joints: No acute cervical fracture or malalignment is seen. Within the limits of the exam, no acute cervical fracture or malalignment is seen. Subtle injuries could be obscured by motion and streak artifact. A left shoulder arthroplasty prosthesis is partially visualized. C2-C3: Disc height preserved. No significant cervical stenosis or foraminal narrowing. C3-C4: Loss of disc height. No significant cervical stenosis. Mild bilateral foraminal narrowing. C4-C5: Disc height relatively preserved. Anterior osteophytes. Motion artifact. No significant cervical stenosis or foraminal narrowing demonstrated. C5-C6: Motion artifact. Moderate discogenic degeneration with loss of disc height, large anterior osteophytes, and posterior osteophytic ridging with uncovertebral hypertrophy on the right. No significant cervical stenosis. Mild-moderate right-sided foraminal narrowing. Mild left-sided foraminal narrowing. C6-C7: Motion artifact. Loss of disc height. Posterior osteophytic ridging. No significant cervical stenosis. Mild bilateral foraminal narrowing. C7-T1: Loss of disc height. No significant cervical stenosis or foraminal narrowing. Thyroid: The thyroid gland appears normal in size. Lungs: The lung apices appear clear. Soft tissues: Within the limits of the exam, no gross soft tissue fluid collection is seen in the neck. IMPRESSION: Motion and streak artifact. No acute cervical fracture or malalignment is seen. Dictated and Authenticated by: Jerod Freeman MD. Ordering:MONET Vivas MD
[2022-11-13 20:54] LABS: ALT 27 U/L (14-59); AST 21 U/L (15-37); Albumin 3.6 g/dL (3.4-5.0); Alkaline Phosphatase 109 U/L (46-116); Anion Gap 5.8 mmol/L (3-11); BUN 28 mg/dL (7-18); Bilirubin, Total 0.3 mg/dL (0.2-1.0); CO2 33.2 mmol/L (21.0-32.0); CREATININE 0.9 mg/dL (0.55-1.02); Calcium 8.7 mg/dL (8.5-10.1); Chloride 105 mmol/L (98-107); Estimated GFR 79.35 (mL/min/1.73m2); Glucose 146 mg/dL (74-106); Magnesium 2.5 mg/dL (1.8-2.4); Potassium 3.1 mmol/L (3.5-5.1); Sodium 144 mmol/L (136-145); Total Protein 7.2 g/dL (6.4-8.2); Troponin I < 50 ng/L (<or=60)
[2022-11-13 21:58] LABS: Bilirubin Negative (Negative); Blood Negative (Negative); Clarity Clear (Clear); Glucose 500 mg/dL (Negative); Ketones Negative (Negative); Leukocyte Esterase Negative (Negative); Nitrite Negative (Negative); Urobilinogen 0.2 EU/dL (Up TO 0.2); pH 5.5 (5-8)
[2022-11-13 22:11] LABS: *AMPHETAMINES SCREEN URINE Negative (Negative); *BARBITURATES SCREEN URINE Negative (Negative); *BENZODIAZEPINES SCREEN URINE Negative (Negative); Cannabinoids THC Negative (Negative); Cocaine Screen,Urine Positive (Negative); METHADONE URINE SCREEN Positive (Negative); OPIATES URINE SCREEN Negative (Negative)
[2022-11-13 22:12] LABS: Tricyclic Antidepressants Negative (Negative)
--- NOTE | 2022-11-13 22:25 | DI.VRAD_ITS ---
PROCEDURE INFORMATION: Exam: XR Chest Exam date and time: 11/13/2022 10:14 PM Age: 47 years old Clinical indication: Other: Syncopw; Prior surgery; Surgery date: 1-6 months; Surgery type: Shoulder replacement; Patient HX: Hi, syncope TECHNIQUE: Imaging protocol: Radiologic exam of the chest. Views: 2 views. COMPARISON: XR CHEST 1V IN DI DEPT 08/14/2022 7:53 PM FINDINGS: Limitations: The examination is underpenetrated. Lungs: No pulmonary consolidation is seen. Pleural spaces: Within the limits of the exam, no pleural effusion or pneumothorax is demonstrated. Heart/Mediastinum: The heart is top-normal in size. Bones/joints: The visualized bony structures appear grossly intact, as seen. The patient is noted to be status post left shoulder arthroplasty. IMPRESSION: No active disease is seen in the chest. Dictated and Authenticated by: Jerod Freeman MD. Ordering:MONET Vivas MD
[2022-11-13 22:38] LABS: NT-proBNP 448 pg/mL (<300)
--- NOTE | 2022-11-13 23:19 | W.ED.GENAD ---
Discharge Plan Disposition Patient Disposition: Home Condition: Stable Discharge Details Clinical Impression: Syncopal episodes Primary Care Provider: Valentin Parekh ED Provider: Wilian Castillo Home Meds and New Rx's Prescriptions: New potassium chloride 20 mEq tablet,ER particles/crystals 20 meq PO BID Qty: 10 0RF Continued acetaminophen 325 mg capsule 975 mg PO Q8H PRN atorvastatin [Lipitor] 80 mg tablet 80 mg PO DAILY clopidogrel [Plavix] 75 mg tablet 75 mg PO DAILY ferrous sulfate 325 mg (65 mg iron) tablet,delayed release (DR/EC) 325 mg PO Q OTHER DAY Tresiba FlexTouch U-200 200 unit/mL (3 mL) insulin pen 120 unit subcut DAILY magnesium oxide [MagOx] 400 mg (241.3 mg magnesium) tablet 400 mg PO BID metoprolol succinate [Toprol XL] 50 mg tablet extended release 24 hr 25 mg PO DAILY PRN nitroglycerin [Nitrostat] 0.4 mg tablet, sublingual 0.4 mg sublingual Q5M PRN Rx Instructions: do not exceed 3 doses per episode albuterol sulfate 2.5 mg /3 mL (0.083 %) solution for nebulization 2.5 mg inhalation Q6H PRN insulin lispro [Humalog KwikPen Insulin] 100 unit/mL insulin pen 10 unit subcut QID methadone 10 mg/5 mL Solution 120 mg PO DAILY Refresh Lacri-Lube 56.8-42.5 % Ointment 1 applic OU BID Qty: 7 0RF gabapentin 600 mg Tablet 600 mg PO DIRECTED Qty: 20 0RF Rx Instructions: 600 mg PO q am and at noon; 1200 mg PO Qpm carboxymethylcellulose sodium [Refresh Plus] 0.5 % Dropperette 1 drp OU QID Qty: 50 0RF Soothe Night Time Lubricant 80-20 % ointment 1 applic ophthalmic (eye) 4-6XD PRNQty: 3.5 0RF potassium chloride 10 mEq capsule, extended release 10 meq PO DAILY Patient Comments: TAKE ONE CAPSULE BY MOUTH EVERY DAY torsemide 20 mg tablet 40 mg PO DAILY Patient Comments: TAKE ONE TABLET BY MOUTH EVERY DAY cetirizine [Zyrtec] 10 mg tablet 10 mg PO DAILY PRN PRN (Reason: Allergy Symptoms) Patient Comments: TAKE ONE TABLET BY MOUTH EVERY DAY NEEDED aspirin [Adult Low Dose Aspirin] 81 mg tablet,delayed release (DR/EC) 81 mg PO DAILY Patient Comments: TAKE ONE TABLET BY MOUTH EVERY DAY citalopram [Celexa] 20 mg tablet 20 mg PO DAILY Patient Comments: TAKE ONE TABLET BY MOUTH EVERY DAY benzonatate 100 mg capsule 100 mg PO TID PRN PRN (Reason: Cough) Patient Comments: TAKE ONE CAPSULE BY MOUTH THREE TIMES A DAY NEEDED folic acid 1 mg tablet 1 mg PO DAILY Patient Comments: TAKE ONE TABLET BY MOUTH EVERY DAY albuterol sulfate [ProAir HFA] 90 mcg/actuation HFA aerosol inhaler 2 inh INHALATION Q3H PRN PRN (Reason: Shortness Of Breath Or Wheezing) Patient Comments: INHALE TWO PUFFS BY MOUTH EVERY 3 HOURS NEEDED colchicine [Colcrys] 0.6 mg tablet 0.6 mg PO BID Patient Comments: TAKE ONE TABLET BY MOUTH TWICE A DAY Advair HFA 45-21 mcg/actuation HFA aerosol inhaler 2 inh INHALATION BID Patient Comments: INHALE TWO PUFFS BY MOUTH TWICE A DAY Victoza 3-Tanmay 0.6 mg/0.1 mL (18 mg/3 mL) pen injector SUBCUT DAILY Patient Comments: INJECT 0.6 MG UNDER THE SKIN ONCE DAILY TITRATE UP TOLERATED TO 1.2 MG DAILY, THEN MAINTAINANCE AT 1.8 MG DAILY Jardiance 10 mg tablet 10 mg PO DAILY Patient Comments: TAKE ONE TABLET BY MOUTH EVERY DAY pantoprazole [Protonix] 40 mg tablet,delayed release (DR/EC) 40 mg PO BID Patient Comments: TAKE ONE TABLET BY MOUTH TWICE A DAY levetiracetam 500 mg Tablet 500 mg PO BID Qty: 60 0RF oxycodone 5 mg Tablet 5 - 10 mg PO Q4H PRN PRNQty: 10 0RF naloxone [Narcan] 4 mg/actuation spray,non-aerosol 4 mg intranasal Q2-3M PRNQty: 2 0RF Rx Instructions: spray 1 dose into ONE nostril; alternate nostrils w each dose until help arrives Discharge Instructions Instructions: Syncope (ED) Additional Instructions: Please take the potassium as prescribed Please follow-up with your doctor tomorrow Use caution when going from sitting to standing Return earlier should you have new or worsening complaints Discharge Data Discharge Date/Time-TO BE ENTERED AT DEPARTURE: 11/14/22 01:11 Medical Decision Making <JERRY Alfaro - Last Filed: 11/15/22 20:34> Complex 47-year-old female with episode of syncope versus fall after sleeping off her couch CT head and cervical spine does not show evidence of abnormality, chest x-ray per radiology interpretation my review does not show evidence of acute abnormality KG cc is prolonged, likely secondary to methadone administration, this appears to be baseline for patient prior Blood pressure is 98/52, this is her baseline when compared to prior Potassium 3.1, will supplement with 40 mEq of Potassium, on reassessment, patient is more tired, she is positive for cocaine and her urinalysis addition to the methadone serum wondering if she perhaps use illicit substance while in the emergency department, she will need repeat troponin observation until she is able to ambulate in the emergency department, I discussed the case with her mother regarding results and at this time we will gladly take patient when ready Initial troponin negative, no ischemia noted on EKG, repeat troponin at 1130 with continued telemetry monitoring <Wilian Castillo MD - Last Filed: 11/14/22 00:22> Complex 47-year-old female with episode of syncope versus fall after sleeping off her couch CT head and cervical spine does not show evidence of abnormality, chest x-ray per radiology interpretation my review does not show evidence of acute abnormality KG cc is prolonged, likely secondary to methadone administration, this appears to be baseline for patient prior Blood pressure is 98/52, this is her baseline when compared to prior Potassium 3.1, will supplement with 40 mEq of Potassium, on reassessment, patient is more tired, she is positive for cocaine and her urinalysis addition to the methadone serum wondering if she perhaps use illicit substance while in the emergency department, she will need repeat troponin observation until she is able to ambulate in the emergency department, I discussed the case with her mother regarding results and at this time we will gladly take patient when ready Initial troponin negative, no ischemia noted on EKG, repeat troponin at 1130 with continued telemetry monitoring pt now awake and alert requesting d/c, doesn't want to wait to have delta troponin and denies ever having any chest pain. She was instructed to f/u with pcp, return precautions given HPI <JERRY Alfaro - Last Filed: 11/15/22 20:34> General Date/Time Provider Initiated Documentation: 11/13/22 19:49. HPI Narrative: This 47-year-old female presents with complex medical history including ischemic cardiomyopathy, systolic CHF, recurrent episodes of unresponsiveness, obstructive sleep apnea, with recent admission for EEG and observation with the episode. The of syncope versus fall off her couch. She reportedly needed help getting up after the event and called EMS. They placed her in a collar secondary to pain. Patient states she has been worked up previously for the same. She complains of pain to her head. She states that she received her methadone today. She denies any additional illicit drug use. She denies any chance of . She denies any new medications. When asked regarding her blood pressure she tells me this is her baseline. Related Data Home Medications Medication Instructions Recorded Confirmed acetaminophen 325 mg capsule 975 mg PO Q8H PRN 10/18/21 10/30/22 albuterol sulfate 2.5 mg/3 mL 2.5 mg inhalation Q6H PRN 10/18/21 10/30/22 (0.083 %) solution for nebulization atorvastatin 80 mg tablet (Lipitor) 80 mg PO DAILY 10/18/21 10/30/22 clopidogrel 75 mg tablet (Plavix) 75 mg PO DAILY 10/18/21 10/30/22 ferrous sulfate 325 mg (65 mg 325 mg PO Q OTHER DAY 10/18/21 10/30/22 iron) tablet,delayed release insulin degludec 200 unit/mL (3 120 unit subcut DAILY 10/18/21 10/30/22 mL) subcutaneous pen (Tresiba FlexTouch U-200 insulin) insulin lispro 100 unit/mL 10 unit subcut QID 10/18/21 10/30/22 subcutaneous pen (Humalog KwikPen (U-100) Insulin) magnesium oxide 400 mg (241.3 mg 400 mg PO BID 10/18/21 10/30/22 magnesium) tablet (MagOx) metoprolol succinate 50 mg 25 mg PO DAILY PRN 10/18/21 10/30/22 tablet,extended release 24 hr (Toprol XL) nitroglycerin 0.4 mg sublingual 0.4 mg sublingual Q5M PRN 10/18/21 10/30/22 tablet (Nitrostat) methadone 10 mg/5 mL oral solution 120 mg PO DAILY 03/15/22 10/30/22 carboxymethylcellulose sodium 0.5 1 drp OU QID #50 ea 08/15/22 10/30/22 % eye drops in a dropperette (Refresh Plus) gabapentin 600 mg tablet 600 mg PO DIRECTED #20 tabs 08/15/22 10/30/22 white petrolatum-mineral oil 56.8 1 applic OU BID #7 grams 08/15/22 10/30/22 %-42.5 % eye ointment (Refresh Lacri-Lube) white petrolatum-mineral oil 80 1 applic ophthalmic (eye) 4-6XD 08/15/22 10/30/22 %-20 % eye ointment (Soothe Night PRN #3.5 grams Time Lubricant) albuterol sulfate 90 mcg/actuation 2 inh inhalation Q3H PRN PRN 10/29/22 10/30/22 aerosol inhaler (ProAir HFA) Shortness Of Breath Or Wheezing aspirin 81 mg tablet,delayed 81 mg PO DAILY 10/29/22 10/30/22 release (Adult Low Dose Aspirin) benzonatate 100 mg capsule 100 mg PO TID PRN PRN Cough 10/29/22 10/30/22 cetirizine 10 mg tablet (Zyrtec) 10 mg PO DAILY PRN PRN Allergy 10/29/22 10/30/22 Symptoms citalopram 20 mg tablet (Celexa) 20 mg PO DAILY 10/29/22 10/30/22 colchicine 0.6 mg tablet (Colcrys) 0.6 mg PO BID 10/29/22 10/30/22 empagliflozin 10 mg tablet 10 mg PO DAILY 10/29/22 10/30/22 (Jardiance) fluticasone propionate 45 2 inh inhalation BID 10/29/22 10/30/22 mcg-salmeterol 21 mcg/actuation HFA inhaler (Advair HFA) folic acid 1 mg tablet 1 mg PO DAILY 10/29/22 10/30/22 liraglutide 0.6 mg/0.1 mL (18 mg/3 mg subcut DAILY 10/29/22 mL) subcutaneous pen injector (Victoza 3-Tanmay) pantoprazole 40 mg tablet,delayed 40 mg PO BID 10/29/22 10/30/22 release (Protonix) potassium chloride 10 mEq 10 meq PO DAILY 10/29/22 10/30/22 capsule,extended release torsemide 20 mg tablet 40 mg PO DAILY 10/29/22 10/30/22 levetiracetam 500 mg tablet 500 mg PO BID #60 tabs 10/31/22 naloxone 4 mg/actuation nasal 4 mg intranasal Q2-3M PRN #2 ea 10/31/22 spray (Narcan) oxycodone 5 mg tablet 5 - 10 mg PO Q4H PRN PRN #10 tabs 10/31/22 potassium chloride 20 mEq 20 meq PO BID #10 tabs 11/13/22 tablet,extended release(part/cryst) Previous Rx's Medication Instructions Recorded carboxymethylcellulose sodium 0.5 1 drp OU QID #50 ea 08/15/22 % eye drops in a dropperette (Refresh Plus) gabapentin 600 mg tablet 600 mg PO DIRECTED #20 tabs 08/15/22 white petrolatum-mineral oil 56.8 1 applic OU BID #7 grams 08/15/22 %-42.5 % eye ointment (Refresh Lacri-Lube) white petrolatum-mineral oil 80 1 applic ophthalmic (eye) 4-6XD 08/15/22 %-20 % eye ointment (Soothe Night PRN #3.5 grams Time Lubricant) levetiracetam 500 mg tablet 500 mg PO BID #60 tabs 10/31/22 naloxone 4 mg/actuation nasal 4 mg intranasal Q2-3M PRN #2 ea 10/31/22 spray (Narcan) oxycodone 5 mg tablet 5 - 10 mg PO Q4H PRN PRN #10 tabs 10/31/22 potassium chloride 20 mEq 20 meq PO BID #10 tabs 11/13/22 tablet,extended release(part/cryst) Allergies Allergy/AdvReac Type Severity Reaction Status Date / Time Bleach (Sodium Hypochlorite) Allergy Unknown Verified 10/30/22 13:51 mushroom Allergy Unknown Verified 10/30/22 13:51 Penicillins Allergy Unknown Verified 10/30/22 13:51 tramadol Allergy Unknown Verified 10/30/22 13:51 mold Allergy Verified 10/30/22 13:51 trazodone Allergy Unverified 10/30/22 13:51 General Stated Complaint: [id number] SHANIA: 3 PFSH <JERRY Alfaro - Last Filed: 11/15/22 20:34> All Active Problems (Updated 11/13/22 @ 23:34 by JERRY Alfaro) QT prolongation (Acute) Nonspecific paroxysmal spell (Acute) Episode of unresponsiveness (Acute) Chronic systolic CHF (congestive heart failure) (Chronic) Ischemic cardiomyopathy (Acute) Obstructive sleep apnea (Chronic) Hallucinations (Acute) Chronic respiratory failure with hypoxia (Chronic) Fracture of finger, left (Acute) Syncopal episodes (Chronic) Acute hypokalemia (Acute) Observed seizure-like activity (Acute) Opioid dependence on agonist therapy (Acute) Leg wound, left (Acute) Facial palsy (Acute) Pulmonary HTN (Acute) Heart failure (Acute) 09/02/21 with PA low EF Non-STEMI (non-ST elevated myocardial infarction) (Acute) 09/02/21 Vertigo (Acute) GERD (gastroesophageal reflux disease) (Chronic) Essential hypertension (Acute) Asthma (Chronic) Depression (Chronic) PTSD (post-traumatic stress disorder) (Acute) Tobacco abuse disorder (Acute) Hypokalemia (Acute) Chronic gout (Acute) Hyperlipidemia (Acute) Diabetic peripheral neuropathy (Acute) Type 2 diabetes mellitus (Chronic) Medical History COVID was vaccinated but contracted Covid 06/22 History of gastrointestinal ulcer Surgical History H/O bone graft left knee H/O shoulder surgery x4 and ending with a full replacement H/O total hysterectomy History of appendectomy History of colonoscopy History of esophagogastroduodenoscopy (EGD) gastritis with gastric ulcers Previous section x4 delivery Family History Mother Cancer Heart disease Obstructive lung disease Depression Arthritis Degeneration of intervertebral disc Father Alcohol use disorder Brother Hypertension Mood disorder Maternal Grandfather Alcohol use disorder Maternal Grandmother Breast cancer Maternal Aunt Breast cancer Paternal Aunt Breast cancer Social History Smoking/Tobacco Use Status: Current every day Tobacco Type: cigarettes Tobacco: How many years used: 34 Smoking risk assessment performed?: Yes Alcohol Intake: current Alcohol Intake frequency: holidays/special occasions only Alcohol type: beer Drug use: Never Substance use type: does not use Do you feel safe at home: Yes Do you feel safe in your relationship?: Yes Exam <JERRY Alfaro - Last Filed: 11/15/22 20:34> Narrative Exam Narrative: Patient is alert and oriented, she is tired but answering questions appropriately, she has a small abrasion to her forehead and areas of macrometastasis on her shoulder, he was over mildly dilated She has paraspinal tenderness collar in place Chest wall is nontender, respirations are clear bilaterally Rate and rhythm regular, nontender abdominal exam, alert and oriented 4, cranial nerves II through XII intact Strength and sensation intact distally Course <JERRY Alfaro - Last Filed: 11/15/22 20:34> Vital Signs Vital signs: Vital Signs Temperature 36.7 C 11/13/22 19:29 Pulse 81 11/13/22 19:29 Respiratory Rate 20 11/13/22 19:29 Blood Pressure 98/52 L 11/13/22 19:29 Pulse Oximetry 94 11/13/22 19:29 Temperature 36.7 C 11/13/22 19:29 Temperature Source Oral 11/13/22 19:29 Pulse 64 11/13/22 22:01 Pulse 64 11/13/22 22:20 Respiratory Rate 18 11/13/22 22:20 Respiratory Effort Normal 11/13/22 21:55 Blood Pressure 79/39 L 11/13/22 22:01 Blood Pressure Mean 48 11/13/22 22:01 Blood Pressure Position Sitting 11/13/22 19:29 Pulse Oximetry 95 11/13/22 22:50 Oxygen Delivery Method Room Air 11/13/22 19:29 Oxygen Flow Rate 0 11/13/22 19:29 Pain Level 7 11/13/22 19:29 Lab/Test Results Lab/Test Results: Laboratory Tests Range/Units 11/13/22 11/13/22 11/13/22 20:30 20:30 20:30 WBC (4.4-10.8) 10^3/uL 9.55 RBC (3.93-5.22) 10^6/uL 4.51 Hgb (11.2-15.7) g/dL 13.3 Hct (36.0-46.0) % 41.1 MCV (80-95) fL 91 MCH (27.0-33.0) pg 29.5 MCHC (32.0-36.0) % 32.4 RDW (11.7-14.6) % 14.8 H Plt Count (130-400) 10^3/uL 345 MPV (8.0-11.0) fL 9.8 Immature Gran % 0.2 Neutrophils % 54.4 Lymphocytes % 32.9 Monocytes % 8.0 Eosinophils % 4.2 Basophils % 0.3 Nucleated RBC % (0.0-0.3) % 0.0 Absolute Neutrophils (1.2-6.7) 10^3/uL 5.20 Absolute Lymphocytes (1.2-3.4) 10^3/uL 3.14 Absolute Monocytes (0.1-0.8) 10^3/uL 0.76 Absolute Eosinophils (0.0-0.7) 10^3/uL 0.40 Absolute Basophils (0.0-0.2) 10^3/uL 0.03 Sodium (136-145) mmol/L 144 Potassium (3.5-5.1) mmol/L 3.1 L Chloride (98-107) mmol/L 105 Carbon Dioxide (21.0-32.0) mmol/L 33.2 H Anion Gap (3-11) mmol/L 5.8 BUN (7-18) mg/dL 28 H Creatinine (0.55-1.02) mg/dL 0.9 Est GFR (CKD-EPI 2020) (mL/min/1.73m2) 79.35 Glucose (74-106) mg/dL 146 H Calcium (8.5-10.1) mg/dL 8.7 Magnesium (1.8-2.4) mg/dL 2.5 H Total Bilirubin (0.2-1.0) mg/dL 0.3 AST (15-37) U/L 21 ALT (14-59) U/L 27 Alkaline Phosphatase (46-116) U/L 109 Troponin I (<or=60) ng/L < 50 NT-Pro-B Natriuret Pep (<300) pg/mL 448 H Total Protein (6.4-8.2) g/dL 7.2 Albumin (3.4-5.0) g/dL 3.6 Urine Color (Yellow) Urine Clarity (Clear) Urine pH (5-8) Ur Specific [place] (1.005-1.025) Urine Protein (Negative) mg/dL Urine Ketones (Negative) mg/dL Urine Blood (Negative) Urine Nitrite (Negative) Urine Bilirubin (Negative) Urine Urobilinogen (Up TO 0.2) EU/dL Ur Leukocyte Esterase (Negative) Urine Glucose (Negative) mg/dL Urine Opiates Screen (Negative) Urine Methadone Screen (Negative) Ur Barbiturates Screen (Negative) Ur Tricyclics Screen (Negative) Ur Amphetamines Screen (Negative) U Benzodiazepines Scrn (Negative) Urine Cocaine Screen (Negative) Ur THC Screen (Negative) Range/Units 11/13/22 11/13/22 21:50 21:51 WBC (4.4-10.8) 10^3/uL RBC (3.93-5.22) 10^6/uL Hgb (11.2-15.7) g/dL Hct (36.0-46.0) % MCV (80-95) fL MCH (27.0-33.0) pg MCHC (32.0-36.0) % RDW (11.7-14.6) % Plt Count (130-400) 10^3/uL MPV (8.0-11.0) fL Immature Gran % Neutrophils % Lymphocytes % Monocytes % Eosinophils % Basophils % Nucleated RBC % (0.0-0.3) % Absolute Neutrophils (1.2-6.7) 10^3/uL Absolute Lymphocytes (1.2-3.4) 10^3/uL Absolute Monocytes (0.1-0.8) 10^3/uL Absolute Eosinophils (0.0-0.7) 10^3/uL Absolute Basophils (0.0-0.2) 10^3/uL Sodium (136-145) mmol/L Potassium (3.5-5.1) mmol/L Chloride (98-107) mmol/L Carbon Dioxide (21.0-32.0) mmol/L Anion Gap (3-11) mmol/L BUN (7-18) mg/dL Creatinine (0.55-1.02) mg/dL Est GFR (CKD-EPI 2020) (mL/min/1.73m2) Glucose (74-106) mg/dL Calcium (8.5-10.1) mg/dL Magnesium (1.8-2.4) mg/dL Total Bilirubin (0.2-1.0) mg/dL AST (15-37) U/L ALT (14-59) U/L Alkaline Phosphatase (46-116) U/L Troponin I (<or=60) ng/L NT-Pro-B Natriuret Pep (<300) pg/mL Total Protein (6.4-8.2) g/dL Albumin (3.4-5.0) g/dL Urine Color (Yellow) Yellow Urine Clarity (Clear) Clear Urine pH (5-8) 5.5 Ur Specific [place] (1.005-1.025) 1.010 Urine Protein (Negative) mg/dL Negative Urine Ketones (Negative) mg/dL Negative Urine Blood (Negative) Negative Urine Nitrite (Negative) Negative Urine Bilirubin (Negative) Negative Urine Urobilinogen (Up TO 0.2) EU/dL 0.2 Ur Leukocyte Esterase (Negative) Negative Urine Glucose (Negative) mg/dL 500 H Urine Opiates Screen (Negative) Negative Urine Methadone Screen (Negative) Positive A Ur Barbiturates Screen (Negative) Negative Ur Tricyclics Screen (Negative) Negative Ur Amphetamines Screen (Negative) Negative U Benzodiazepines Scrn (Negative) Negative Urine Cocaine Screen (Negative) Positive A Ur THC Screen (Negative) Negative Sign Out <JERRY Alfaro - Last Filed: 11/15/22 20:34> Sign Out Data: Sign Out Comment: pending observation,repeat troponin, telemetry observation until able to engage Last updated by Sangeetha Landrum PA at 11/14/22 00:12
--- NOTE | 2022-11-14 00:17 | W.EDPROG ---
Date of service: 11/14/22 Time of Service: 00:17 Medical Decision Making pt now awake, talking without complaints and requests d/c. She was advised to f/u with her pcp, return precautions given Sign Out Sign Out Data: Sign Out Comment: pending observation,repeat troponin, telemetry observation until able to engage Last updated by Sangeetha Landrum PA at 11/14/22 00:12 Discharge Plan Disposition Patient Disposition: Home Condition: Stable Discharge Details Clinical Impression: Syncopal episodes Primary Care Provider: Valentin Parekh ED Provider: Wilian Castillo Home Meds and New Rx's Prescriptions: New potassium chloride 20 mEq tablet,ER particles/crystals 20 meq PO BID Qty: 10 0RF Continued acetaminophen 325 mg capsule 975 mg PO Q8H PRN atorvastatin [Lipitor] 80 mg tablet 80 mg PO DAILY clopidogrel [Plavix] 75 mg tablet 75 mg PO DAILY ferrous sulfate 325 mg (65 mg iron) tablet,delayed release (DR/EC) 325 mg PO Q OTHER DAY Tresiba FlexTouch U-200 200 unit/mL (3 mL) insulin pen 120 unit subcut DAILY magnesium oxide [MagOx] 400 mg (241.3 mg magnesium) tablet 400 mg PO BID metoprolol succinate [Toprol XL] 50 mg tablet extended release 24 hr 25 mg PO DAILY PRN nitroglycerin [Nitrostat] 0.4 mg tablet, sublingual 0.4 mg sublingual Q5M PRN Rx Instructions: do not exceed 3 doses per episode albuterol sulfate 2.5 mg /3 mL (0.083 %) solution for nebulization 2.5 mg inhalation Q6H PRN insulin lispro [Humalog KwikPen Insulin] 100 unit/mL insulin pen 10 unit subcut QID methadone 10 mg/5 mL Solution 120 mg PO DAILY Refresh Lacri-Lube 56.8-42.5 % Ointment 1 applic OU BID Qty: 7 0RF gabapentin 600 mg Tablet 600 mg PO DIRECTED Qty: 20 0RF Rx Instructions: 600 mg PO q am and at noon; 1200 mg PO Qpm carboxymethylcellulose sodium [Refresh Plus] 0.5 % Dropperette 1 drp OU QID Qty: 50 0RF Soothe Night Time Lubricant 80-20 % ointment 1 applic ophthalmic (eye) 4-6XD PRNQty: 3.5 0RF potassium chloride 10 mEq capsule, extended release 10 meq PO DAILY Patient Comments: TAKE ONE CAPSULE BY MOUTH EVERY DAY torsemide 20 mg tablet 40 mg PO DAILY Patient Comments: TAKE ONE TABLET BY MOUTH EVERY DAY cetirizine [Zyrtec] 10 mg tablet 10 mg PO DAILY PRN PRN (Reason: Allergy Symptoms) Patient Comments: TAKE ONE TABLET BY MOUTH EVERY DAY NEEDED aspirin [Adult Low Dose Aspirin] 81 mg tablet,delayed release (DR/EC) 81 mg PO DAILY Patient Comments: TAKE ONE TABLET BY MOUTH EVERY DAY citalopram [Celexa] 20 mg tablet 20 mg PO DAILY Patient Comments: TAKE ONE TABLET BY MOUTH EVERY DAY benzonatate 100 mg capsule 100 mg PO TID PRN PRN (Reason: Cough) Patient Comments: TAKE ONE CAPSULE BY MOUTH THREE TIMES A DAY NEEDED folic acid 1 mg tablet 1 mg PO DAILY Patient Comments: TAKE ONE TABLET BY MOUTH EVERY DAY albuterol sulfate [ProAir HFA] 90 mcg/actuation HFA aerosol inhaler 2 inh INHALATION Q3H PRN PRN (Reason: Shortness Of Breath Or Wheezing) Patient Comments: INHALE TWO PUFFS BY MOUTH EVERY 3 HOURS NEEDED colchicine [Colcrys] 0.6 mg tablet 0.6 mg PO BID Patient Comments: TAKE ONE TABLET BY MOUTH TWICE A DAY Advair HFA 45-21 mcg/actuation HFA aerosol inhaler 2 inh INHALATION BID Patient Comments: INHALE TWO PUFFS BY MOUTH TWICE A DAY Victoza 3-Tanmay 0.6 mg/0.1 mL (18 mg/3 mL) pen injector SUBCUT DAILY Patient Comments: INJECT 0.6 MG UNDER THE SKIN ONCE DAILY TITRATE UP TOLERATED TO 1.2 MG DAILY, THEN MAINTAINANCE AT 1.8 MG DAILY Jardiance 10 mg tablet 10 mg PO DAILY Patient Comments: TAKE ONE TABLET BY MOUTH EVERY DAY pantoprazole [Protonix] 40 mg tablet,delayed release (DR/EC) 40 mg PO BID Patient Comments: TAKE ONE TABLET BY MOUTH TWICE A DAY levetiracetam 500 mg Tablet 500 mg PO BID Qty: 60 0RF oxycodone 5 mg Tablet 5 - 10 mg PO Q4H PRN PRNQty: 10 0RF naloxone [Narcan] 4 mg/actuation spray,non-aerosol 4 mg intranasal Q2-3M PRNQty: 2 0RF Rx Instructions: spray 1 dose into ONE nostril; alternate nostrils w each dose until help arrives Discharge Instructions Instructions: Syncope (ED) Additional Instructions: Please take the potassium as prescribed Please follow-up with your doctor tomorrow Use caution when going from sitting to standing Return earlier should you have new or worsening complaints Discharge Data Discharge Date/Time-TO BE ENTERED AT DEPARTURE: 11/14/22 01:11
--- NOTE | 2022-11-14 00:40 | NUR.NOTE ---
pt oob to void, returns to bed without difficulty
[2022-11-14] MEDS: Potassium Chloride 20 MEQ TABCR 40 MEQ PO (00:48)
[2022-11-14 01:07] VITALS: BP 95/59; PULSE 78; RESP 18; O2SAT 93
--- NOTE | 2022-11-14 08:58 | NUR.NOTE ---
Nursing Note: Accessed chart to determine orders for EKG and to determine whether or not one needs to be cancelled.
== END 2022-11-14 01:11 | disposition home or self-care (01) ==
PROVIDERS: Physician Assistant; Emergency Provider Emergency Medicine; PCP Family Medicine
DX: R55 Syncope and collapse (principal); S00.81XA Abrasion of other part of head, initial encounter; I50.20 Unspecified systolic (congestive) heart failure; Z86.16 Personal history of COVID-19; Z79.82 Long term (current) use of aspirin; W08.XXXA Fall from other furniture, initial encounter; Z79.899 Other long term (current) drug therapy
CPT/HCPCS: 36416; 80053; 80307; 82962; 93005; 96361; 96374; 99284; 70450; 71046; 72125; 81003; 83735; 83880; 84484; 85025; 93010; J0131

== ENCOUNTER 2022-11-20 17:30 | Emergency (ER) | payer MEDICARE, MEDICAID, SELFPAY ==
[2022-11-20] VITALS (43 sets, daily range): BP systolic 91–114; BP diastolic 48–77; PULSE 66–110; RESP 10–36; TEMP 36.4–36.5; O2SAT 87–99
--- NOTE | 2022-11-20 17:00 | RT.EKG_ITS ---
APPROVED REPORT Exam: Resting ECG Reason for Exam: chest pain Patient Location: E HR:76 bpm ECG Measurements Heart Rate 76 AXIS MN 173 P 26 QRSd 95 QRS 43 QT 515 T 44 QTc 580 Conclusion Sinus rhythm...normal P axis, V-rate 60- 99 Probable anterolateral infarct, old...Q>35mS, abnrm ST-T, V2-V6,I,aVL Prolonged QT interval...QTc >510mS Narrow complex normal sinus rhythm at a rate of 76. Normal axis. Prolonged QTc at [address] se gment abnormalities. Biphasic T wave in V2. Appears similar to prior dated last week with persisten tly prolonged QTc.
--- NOTE | 2022-11-20 17:21 | W.ED.GENAD ---
Discharge Plan Disposition Patient Disposition: Home Condition: Improving Discharge Details Clinical Impression: Dizziness, Syncopal episodes, Vomiting Primary Care Provider: Valentin Parekh ED Provider: Radha Herrera Home Meds and New Rx's Prescriptions: Continued acetaminophen 325 mg capsule 975 mg PO Q8H PRN atorvastatin [Lipitor] 80 mg tablet 80 mg PO DAILY clopidogrel [Plavix] 75 mg tablet 75 mg PO DAILY ferrous sulfate 325 mg (65 mg iron) tablet,delayed release (DR/EC) 325 mg PO Q OTHER DAY Tresiba FlexTouch U-200 200 unit/mL (3 mL) insulin pen 120 unit subcut DAILY magnesium oxide [MagOx] 400 mg (241.3 mg magnesium) tablet 400 mg PO BID nitroglycerin [Nitrostat] 0.4 mg tablet, sublingual 0.4 mg sublingual Q5M PRN Rx Instructions: do not exceed 3 doses per episode albuterol sulfate 2.5 mg /3 mL (0.083 %) solution for nebulization 2.5 mg inhalation Q6H PRN insulin lispro [Humalog KwikPen Insulin] 100 unit/mL insulin pen 10 unit subcut QID methadone 10 mg/5 mL Solution 120 mg PO DAILY gabapentin 600 mg Tablet 600 mg PO DIRECTED Qty: 20 0RF Rx Instructions: 600 mg PO q am and at noon; 1200 mg PO Qpm carboxymethylcellulose sodium [Refresh Plus] 0.5 % Dropperette 1 drp OU QID Qty: 50 0RF potassium chloride 10 mEq capsule, extended release 10 meq PO DAILY Patient Comments: TAKE ONE CAPSULE BY MOUTH EVERY DAY torsemide 20 mg tablet 40 mg PO DAILY Patient Comments: TAKE ONE TABLET BY MOUTH EVERY DAY cetirizine [Zyrtec] 10 mg tablet 10 mg PO DAILY PRN PRN (Reason: Allergy Symptoms) Patient Comments: TAKE ONE TABLET BY MOUTH EVERY DAY NEEDED aspirin [Adult Low Dose Aspirin] 81 mg tablet,delayed release (DR/EC) 81 mg PO DAILY Patient Comments: TAKE ONE TABLET BY MOUTH EVERY DAY citalopram [Celexa] 20 mg tablet 20 mg PO DAILY Patient Comments: TAKE ONE TABLET BY MOUTH EVERY DAY benzonatate 100 mg capsule 100 mg PO TID PRN PRN (Reason: Cough) Patient Comments: TAKE ONE CAPSULE BY MOUTH THREE TIMES A DAY NEEDED folic acid 1 mg tablet 1 mg PO DAILY Patient Comments: TAKE ONE TABLET BY MOUTH EVERY DAY albuterol sulfate [ProAir HFA] 90 mcg/actuation HFA aerosol inhaler 2 inh INHALATION Q3H PRN PRN (Reason: Shortness Of Breath Or Wheezing) Patient Comments: INHALE TWO PUFFS BY MOUTH EVERY 3 HOURS NEEDED colchicine [Colcrys] 0.6 mg tablet 0.6 mg PO BID Patient Comments: TAKE ONE TABLET BY MOUTH TWICE A DAY Advair HFA 45-21 mcg/actuation HFA aerosol inhaler 2 inh INHALATION BID Patient Comments: INHALE TWO PUFFS BY MOUTH TWICE A DAY Victoza 3-Tanmay 0.6 mg/0.1 mL (18 mg/3 mL) pen injector 0.6 mg SUBCUT DAILY Patient Comments: INJECT 0.6 MG UNDER THE SKIN ONCE DAILY TITRATE UP TOLERATED TO 1.2 MG DAILY, THEN MAINTAINANCE AT 1.8 MG DAILY Jardiance 10 mg tablet 10 mg PO DAILY Patient Comments: TAKE ONE TABLET BY MOUTH EVERY DAY pantoprazole [Protonix] 40 mg tablet,delayed release (DR/EC) 40 mg PO BID Patient Comments: TAKE ONE TABLET BY MOUTH TWICE A DAY levetiracetam 500 mg Tablet 500 mg PO BID Qty: 60 0RF naloxone [Narcan] 4 mg/actuation spray,non-aerosol 4 mg intranasal Q2-3M PRNQty: 2 0RF Rx Instructions: spray 1 dose into ONE nostril; alternate nostrils w each dose until help arrives potassium chloride 20 mEq tablet,ER particles/crystals 20 meq PO BID Qty: 10 0RF No Action metoprolol succinate [Toprol XL] 25 mg tablet extended release 24 hr 25 mg PO DAILY Patient Comments: TAKE ONE TABLET BY MOUTH EVERY DAY Discharge Instructions Instructions: Syncope (ED), Dizziness (ED) Additional Instructions: Your blood tests, EKG and imaging today are reassuring and show no evidence of acute concerning findings. [facility] cardiology has recommended that you need to continue to wear your LifeVest. Follow-up with your next scheduled appointment with [facility] cardiology and discussion regarding placement of your defibrillator when indicated. Take the Compazine as needed and directed for symptoms of nausea or vomiting. Keep your secured entrance monitor in place and follow-up with cardiology regarding the results of your Zio patch. Follow-up with your primary care doctor in 1 week. Return to the emergency department with any worsening or new concerning symptoms. Discharge Data Discharge Date/Time-TO BE ENTERED AT DEPARTURE: 11/20/22 23:26 Discharge Physician: Radha Herrera Medical Decision Making <Wenceslao Encinas MD - Last Filed: 11/21/22 08:27> Dr. Encinas This is a normal normotensive and not tachycardic 47-year-old female with ischemic cardiomyopathy, heart failure with reduced ejection fraction, coronary artery disease, insulin-dependent diabetes, and syncope, with presumed COPD with ongoing oxygen and nonadherence with life vest now with syncope concerning for dysrhythmia. She does have some mild lower extremity pitting edema but does not have B-lines on bedside ultrasound so I do not feel that her presentation is consistent with volume overload secondary to acute heart failure. She has had no reported tonic-clonic activity that could suggest seizures today. Given her methadone use and her prolonged QTc polymorphic ventricular tachycardia secondary could certainly cause recurrent syncopal episodes. We will plan on obtaining a troponin to assess for chest pain. She did feel slight response to nitroglycerin and her pain is at the moment improved. We will plan on reaching out to cardiology at [facility] for hospitalization. She has had increased sputum production though this is for the past month or so. She has no wheezes or hypoxia on her 2 and half to 3 L to suggest COPD exacerbation. No fevers to suggest PNA. Patient signed out to Dr. Herrera pending repeat troponin and cards consult at [facility]. Dr. Herrera 1999 --please see Dr. Encinas's note for initial presentation, exam and plan. Case endorsed to follow-up with [facility] cardiology for recommendations. Patient is a 47-year-old female w/ a h/o PMHx of CAD, ICMO/chronic systolic CHF (LVEF of 39%), as well as h/o IDDM2, RAQUEL, chronic hypoxic respiratory failure on 2.5- 3L of O2 by MI and not on CPA with nonadherence with life vest, as well as recurrent episodes of unresponsiveness who was admitted to [facility] ICU under the hospitalist service twice last month, having left AMA on first admission presents for multiple complaints including increasing chest pain and shortness of breath for the past few months, vomiting, dizziness with recurrent syncopal episodes, runny nose, headache and chronic productive cough. She underwent EEG not consistent with epileptiform discharges and was evaluated by Dr. Elliott who thought that she had sleep-related events resulting in jerking movements related to untreated sleep apnea. Dr. Arora cardiology was also consulted on her recent admission for QT prolongation who thought that her QTc interval was actually shorter than the machine calculated 1 making it safe for her to resume her methadone upon discharge. Patient assessed by me at bedside and she endorses that she has had increasing dizziness and syncopal episodes now occurring once daily over the past few months. She states she mainly feels dizzy with any head movement. She states she has had to use a walker when ambulating due to these episodes over the past several months. She also endorses new cough productive of green and jin's sputum in addition to bilious vomiting occurring 1-2 times daily over the past few days. Patient is drowsy throughout exam and needs to be aroused multiple times to answer questions. When she is aroused, she appears in no acute distress and oriented x3. She has 2+ pitting edema in her lower extremities. She has scattered wheezing throughout but her oxygen saturation is mid to high 90s on her baseline 2.5 L. No crackles at bases bilaterally. Her mucous membranes are significantly dry. Due to her history of vomiting and decreased p.o. intake, will give a 500 cc fluid bolus. We will consult [facility] cardiology for recommendations. 2144 --Case discussed with [facility] cardiology who was reassured and that patient has had a negative cardiac work-up with 2 negative troponins and no signs of ischemia on EKG. Recent echocardiogram noted no outflow tract or valvular problems. Recommends continued medication management with her beta-jerri, diuretic and at some point may consider addition of an JENS or an ARB. It is recommended that patient needs to continue to wear her LifeVest. After medication management for 3 months, they plan to repeat an echo and plan for an ICD in December. 2219 -- patient feels better after neb treatment. She does feel comfortable going home. Recheck glucose 93. She has remained hemodynamically stable. Her blood pressure is soft at 93/59 but this is close to her baseline. She is complaining of back spasms from laying in the bed. We will give a dose of Valium now and one to go for tomorrow. Will send home with Compazine as needed for nausea and vomiting. She states she has a follow-up appointment with [facility] this week. She had a 30-day Zio patch placed after her admission here last month that will be in place until November 27. She is advised to follow-up with for any further recommendations and to continue to wear her LifeVest. Advised to follow up with the primary care doctor for re-evaluation. Usual and customary return precautions given prior to discharge. <Radha Herrera, DO - Last Filed: 11/24/22 03:11> Dr. Encinas This is a normal normotensive and not tachycardic 47-year-old female with ischemic cardiomyopathy, heart failure with reduced ejection fraction, coronary artery disease, insulin-dependent diabetes, and syncope, with presumed COPD with ongoing oxygen and nonadherence with life vest now with syncope concerning for dysrhythmia. She does have some mild lower extremity pitting edema but does not have B-lines on bedside ultrasound so I do not feel that her presentation is consistent with volume overload secondary to acute heart failure. She has had no reported tonic-clonic activity that could suggest seizures today. Given her methadone use and her prolonged QTc polymorphic ventricular tachycardia secondary could certainly cause recurrent syncopal episodes. We will plan on obtaining a troponin to assess for chest pain. She did feel slight response to nitroglycerin and her pain is at the moment improved. We will plan on reaching out to cardiology at [facility] for hospitalization. She has had increased sputum production though this is for the past month or so. She has no wheezes or hypoxia on her 2 and half to 3 L to suggest COPD exacerbation. No fevers to suggest PNA. Patient signed out to Dr. Herrera pending repeat troponin and cards consult at [facility]. Dr. Herrera 1999 --please see Dr. Encinas's note for initial presentation, exam and plan. Case endorsed to follow-up with [facility] cardiology for recommendations. Patient is a 47-year-old female w/ a h/o PMHx of CAD, ICMO/chronic systolic CHF (LVEF of 39%), as well as h/o IDDM2, RAQUEL, chronic hypoxic respiratory failure on 2.5- 3L of O2 by MI and not on CPA with nonadherence with life vest, as well as recurrent episodes of unresponsiveness who was admitted to [facility] ICU under the hospitalist service twice last month, having left AMA on first admission presents for multiple complaints including increasing chest pain and shortness of breath for the past few months, vomiting, dizziness with recurrent syncopal episodes, runny nose, headache and chronic productive cough. She underwent EEG not consistent with epileptiform discharges and was evaluated by Dr. Elliott who thought that she had sleep-related events resulting in jerking movements related to untreated sleep apnea. Dr. Arora cardiology was also consulted on her recent admission for QT prolongation who thought that her QTc interval was actually shorter than the machine calculated 1 making it safe for her to resume her methadone upon discharge. Patient assessed by me at bedside and she endorses that she has had increasing dizziness and syncopal episodes now occurring once daily over the past few months. She states she mainly feels dizzy with any head movement. She states she has had to use a walker when ambulating due to these episodes over the past several months. She also endorses new cough productive of green and jin's sputum in addition to bilious vomiting occurring 1-2 times daily over the past few days. Patient is drowsy throughout exam and needs to be aroused multiple times to answer questions. When she is aroused, she appears in no acute distress and oriented x3. She has 2+ pitting edema in her lower extremities. She has scattered wheezing throughout but her oxygen saturation is mid to high 90s on her baseline 2.5 L. No crackles at bases bilaterally. Her mucous membranes are significantly dry. Due to her history of vomiting and decreased p.o. intake, will give a 500 cc fluid bolus. We will consult [facility] cardiology for recommendations. 2144 --Case discussed with [facility] cardiology who was reassured and that patient has had a negative cardiac work-up with 2 negative troponins and no signs of ischemia on EKG. Recent echocardiogram noted no outflow tract or valvular problems. Recommends continued medication management with her beta-jerri, diuretic and at some point may consider addition of an JENS or an ARB. It is recommended that patient needs to continue to wear her LifeVest. After medication management for 3 months, they plan to repeat an echo and plan for an ICD in December. 2219 -- patient feels better after neb treatment. She does feel comfortable going home and appears in no acute distress. Recheck glucose 93. She has remained hemodynamically stable. Her blood pressure is soft at 93/59 but this is close to her baseline. She is complaining of back spasms from laying in the bed. We will give a dose of Valium now and one to go for tomorrow. Will send home with Compazine as needed for nausea and vomiting. She states she has a follow-up appointment with [facility] this week. She had a 30-day Zio patch placed after her admission here last month that will be in place until November 27. She is advised to follow-up with for any further recommendations and to continue to wear her LifeVest. Advised to follow up with the primary care doctor for re-evaluation. Usual and customary return precautions given prior to discharge. Medical Records Medical records reviewed: Yes I reviewed the patient's medical records. Imaging Data Radiologic Study: Radiologist's impression: XR Chest Exam date and time: 11/20/2022 5:56 PM Age: 47 years old Clinical indication: Pain; Other: Overall TECHNIQUE: Imaging protocol: Radiologic exam of the chest. Views: 1 view. COMPARISON: CR XR CHEST 2V PA LATERAL 11/13/2022 10:14 PM FINDINGS: Lungs: Unremarkable. No consolidation. Pleural spaces: Unremarkable. No pleural effusion. No pneumothorax. Heart/Mediastinum: Unremarkable. No cardiomegaly. Bones/joints:? Left humeral arthroplasty. IMPRESSION: No acute findings. Lab Data Lab results reviewed: Yes I reviewed the patient's lab results. Labs: Laboratory Tests Range/Units 11/20/22 11/20/22 11/20/22 17:13 17:13 17:13 WBC (4.4-10.8) 10^3/uL 11.03 H RBC (3.93-5.22) 10^6/uL 4.64 Hgb (11.2-15.7) g/dL 13.5 Hct (36.0-46.0) % 42.5 MCV (80-95) fL 92 MCH (27.0-33.0) pg 29.1 MCHC (32.0-36.0) % 31.8 L RDW (11.7-14.6) % 14.2 Plt Count (130-400) 10^3/uL 397 MPV (8.0-11.0) fL 9.9 Sodium (136-145) mmol/L 146 H Potassium (3.5-5.1) mmol/L 3.4 L Chloride (98-107) mmol/L 102 Carbon Dioxide (21.0-32.0) mmol/L 41.8 H Anion Gap (3-11) mmol/L 2.2 L BUN (7-18) mg/dL 25 H Creatinine (0.55-1.02) mg/dL 0.8 Est GFR (CKD-EPI 2020) (mL/min/1.73m2) 91.40 Glucose (74-106) mg/dL 73 L Calcium (8.5-10.1) mg/dL 9.6 Total Bilirubin (0.2-1.0) mg/dL 0.4 AST (15-37) U/L 17 ALT (14-59) U/L 21 Alkaline Phosphatase (46-116) U/L 128 H Troponin I (<or=60) ng/L < 50 NT-Pro-B Natriuret Pep (<300) pg/mL 309 H Total Protein (6.4-8.2) g/dL 7.4 Albumin (3.4-5.0) g/dL 3.6 Serum HCG, Qual Negative COVID-19 Source SARS-CoV-2 (PCR) (Negative) Influenza Type A (PCR) (Negative) Influenza Type B (PCR) (Negative) RSV (PCR) (Negative) Range/Units 11/20/22 11/20/22 20:45 20:45 WBC (4.4-10.8) 10^3/uL RBC (3.93-5.22) 10^6/uL Hgb (11.2-15.7) g/dL Hct (36.0-46.0) % MCV (80-95) fL MCH (27.0-33.0) pg MCHC (32.0-36.0) % RDW (11.7-14.6) % Plt Count (130-400) 10^3/uL MPV (8.0-11.0) fL Sodium (136-145) mmol/L Potassium (3.5-5.1) mmol/L Chloride (98-107) mmol/L Carbon Dioxide (21.0-32.0) mmol/L Anion Gap (3-11) mmol/L BUN (7-18) mg/dL Creatinine (0.55-1.02) mg/dL Est GFR (CKD-EPI 2020) (mL/min/1.73m2) Glucose (74-106) mg/dL Calcium (8.5-10.1) mg/dL Total Bilirubin (0.2-1.0) mg/dL AST (15-37) U/L ALT (14-59) U/L Alkaline Phosphatase (46-116) U/L Troponin I (<or=60) ng/L < 50 NT-Pro-B Natriuret Pep (<300) pg/mL Total Protein (6.4-8.2) g/dL Albumin (3.4-5.0) g/dL Serum HCG, Qual COVID-19 Source Nasopharynx SARS-CoV-2 (PCR) (Negative) Negative Influenza Type A (PCR) (Negative) Negative Influenza Type B (PCR) (Negative) Negative RSV (PCR) (Negative) Negative ECG Data Attestation: I personally reviewed and interpreted this ECG (s) as follows: Interpretation: rate of 76, sinus, normal axis, prolonged qtc at 580, no significant change compared to prior 11/13/22, no stemi. HPI <Wenceslao Encinas MD - Last Filed: 11/21/22 08:27> General Date/Time Provider Initiated Documentation: 11/20/22 18:32. HPI Narrative: This is a 47-year female with complicated past medical history including ischemic cardiomyopathy, presumed COPD on home 2 and half to 3 L now in the emergency department in the setting of chest pain shortness of breath and innumerable episodes of syncope today. Patient reports that she continues to smoking. She says that for the past months she has been coughing up a thick sputum. She does not have any fevers. She has not been adherent with her LifeVest. She reports that she cannot tell how many times she syncopized today. She reports chest pressure from the past several days that is central part of her chest. She has taken no falls today. Related Data Home Medications Medication Instructions Recorded Confirmed acetaminophen 325 mg capsule 975 mg PO Q8H PRN 10/18/21 11/23/22 albuterol sulfate 2.5 mg/3 mL 2.5 mg inhalation Q6H PRN 10/18/21 11/23/22 (0.083 %) solution for nebulization atorvastatin 80 mg tablet (Lipitor) 80 mg PO DAILY 10/18/21 11/23/22 clopidogrel 75 mg tablet (Plavix) 75 mg PO DAILY 10/18/21 11/23/22 ferrous sulfate 325 mg (65 mg 325 mg PO Q OTHER DAY 10/18/21 11/23/22 iron) tablet,delayed release insulin degludec 200 unit/mL (3 120 unit subcut DAILY 10/18/21 11/23/22 mL) subcutaneous pen (Tresiba FlexTouch U-200 insulin) insulin lispro 100 unit/mL 10 unit subcut QID 10/18/21 11/23/22 subcutaneous pen (Humalog KwikPen (U-100) Insulin) magnesium oxide 400 mg (241.3 mg 400 mg PO BID 10/18/21 11/23/22 magnesium) tablet (MagOx) nitroglycerin 0.4 mg sublingual 0.4 mg sublingual Q5M PRN 10/18/21 11/23/22 tablet (Nitrostat) methadone 10 mg/5 mL oral solution 120 mg PO DAILY 03/15/22 11/23/22 carboxymethylcellulose sodium 0.5 1 drp OU QID #50 ea 08/15/22 11/23/22 % eye drops in a dropperette (Refresh Plus) gabapentin 600 mg tablet 600 mg PO DIRECTED #20 tabs 08/15/22 11/23/22 albuterol sulfate 90 mcg/actuation 2 inh inhalation Q3H PRN PRN 10/29/22 11/23/22 aerosol inhaler (ProAir HFA) Shortness Of Breath Or Wheezing aspirin 81 mg tablet,delayed 81 mg PO DAILY 10/29/22 11/23/22 release (Adult Low Dose Aspirin) benzonatate 100 mg capsule 100 mg PO TID PRN PRN Cough 10/29/22 11/23/22 cetirizine 10 mg tablet (Zyrtec) 10 mg PO DAILY PRN PRN Allergy 10/29/22 11/23/22 Symptoms citalopram 20 mg tablet (Celexa) 20 mg PO DAILY 10/29/22 11/23/22 colchicine 0.6 mg tablet (Colcrys) 0.6 mg PO BID 10/29/22 11/23/22 empagliflozin 10 mg tablet 10 mg PO DAILY 10/29/22 11/23/22 (Jardiance) fluticasone propionate 45 2 inh inhalation BID 10/29/22 11/23/22 mcg-salmeterol 21 mcg/actuation HFA inhaler (Advair HFA) folic acid 1 mg tablet 1 mg PO DAILY 10/29/22 11/23/22 liraglutide 0.6 mg/0.1 mL (18 mg/3 0.6 mg subcut DAILY 10/29/22 11/23/22 mL) subcutaneous pen injector (Victoza 3-Tanmay) pantoprazole 40 mg tablet,delayed 40 mg PO BID 10/29/22 11/23/22 release (Protonix) potassium chloride 10 mEq 10 meq PO DAILY 10/29/22 11/23/22 capsule,extended release torsemide 20 mg tablet 40 mg PO DAILY 10/29/22 11/23/22 levetiracetam 500 mg tablet 500 mg PO BID #60 tabs 10/31/22 11/23/22 naloxone 4 mg/actuation nasal 4 mg intranasal Q2-3M PRN #2 ea 10/31/22 11/23/22 spray (Narcan) potassium chloride 20 mEq 20 meq PO BID #10 tabs 11/13/22 11/23/22 tablet,extended release(part/cryst) metoprolol succinate 25 mg 25 mg PO DAILY 11/23/22 11/23/22 tablet,extended release 24 hr (Toprol XL) Previous Rx's Medication Instructions Recorded carboxymethylcellulose sodium 0.5 1 drp OU QID #50 ea 08/15/22 % eye drops in a dropperette (Refresh Plus) gabapentin 600 mg tablet 600 mg PO DIRECTED #20 tabs 08/15/22 levetiracetam 500 mg tablet 500 mg PO BID #60 tabs 10/31/22 naloxone 4 mg/actuation nasal 4 mg intranasal Q2-3M PRN #2 ea 10/31/22 spray (Narcan) potassium chloride 20 mEq 20 meq PO BID #10 tabs 11/13/22 tablet,extended release(part/cryst) Allergies Allergy/AdvReac Type Severity Reaction Status Date / Time Bleach (Sodium Hypochlorite) Allergy Unknown Verified 11/23/22 10:21 mushroom Allergy Unknown Verified 11/23/22 10:21 Penicillins Allergy Unknown Verified 11/23/22 10:21 tramadol Allergy Unknown Verified 11/23/22 10:21 mold Allergy Verified 11/23/22 10:21 trazodone Allergy Unverified 11/23/22 10:21 General Stated Complaint: Chest Pain SHANIA: 2 PFSH <Wenceslao Encinas MD - Last Filed: 11/21/22 08:27> All Active Problems Syncope (Chronic) Closed fracture of right fibula and tibia (Acute) Closed fracture of shaft of right tibia and fibula (Acute 11/23/22) Dizziness (Acute) Syncopal episodes (Chronic) Vomiting (Acute) QT prolongation (Acute) Nonspecific paroxysmal spell (Acute) Episode of unresponsiveness (Acute) Chronic systolic CHF (congestive heart failure) (Chronic) Ischemic cardiomyopathy (Acute) Obstructive sleep apnea (Chronic) Hallucinations (Acute) Chronic respiratory failure with hypoxia (Chronic) Fracture of finger, left (Acute) Syncopal episodes (Chronic) Acute hypokalemia (Acute) Observed seizure-like activity (Acute) Opioid dependence on agonist therapy (Acute) Leg wound, left (Acute) Facial palsy (Acute) Pulmonary HTN (Acute) Heart failure (Acute) 09/02/21 with SD low EF Non-STEMI (non-ST elevated myocardial infarction) (Acute) 09/02/21 Vertigo (Acute) GERD (gastroesophageal reflux disease) (Chronic) Essential hypertension (Acute) Asthma (Chronic) Depression (Chronic) PTSD (post-traumatic stress disorder) (Acute) Tobacco abuse disorder (Acute) Hypokalemia (Acute) Chronic gout (Acute) Hyperlipidemia (Acute) Diabetic peripheral neuropathy (Acute) Type 2 diabetes mellitus (Chronic) Medical History COVID was vaccinated but contracted Covid 06/22 History of gastrointestinal ulcer Surgical History H/O bone graft left knee H/O shoulder surgery x4 and ending with a full replacement H/O total hysterectomy History of appendectomy History of colonoscopy History of esophagogastroduodenoscopy (EGD) gastritis with gastric ulcers Previous section x4 delivery Family History Mother Cancer Heart disease Obstructive lung disease Depression Arthritis Degeneration of intervertebral disc Father Alcohol use disorder Brother Hypertension Mood disorder Maternal Grandfather Alcohol use disorder Maternal Grandmother Breast cancer Maternal Aunt Breast cancer Paternal Aunt Breast cancer Social History Smoking/Tobacco Use Status: Current every day Tobacco Type: cigarettes Tobacco: How many years used: 34 Smoking risk assessment performed?: Yes Alcohol Intake: current Alcohol Intake frequency: holidays/special occasions only Alcohol type: beer Drug use: Never Substance use type: does not use Do you feel safe at home: Yes Do you feel safe in your relationship?: Yes Exam <Wenceslao Encinas MD - Last Filed: 11/21/22 08:27> Narrative Exam Narrative: General: Chronically ill-appearing in no acute distress speaking in complete sentences. Head: Normocephalic, atraumatic Ear, nose, mouth, throat: Grossly normal inspection. Normal voice, handling secretions normally. Neck: Trachea midline. Cardiovascular: Well-perfused distal extremities. Regular rate and rhythm. Respiratory: Nonlabored respiration. Clear lungs bilaterally. Gastrointestinal: Mildly distended no rebound. No guarding. Abdomen. Musculoskeletal: Mild 1+ nonpitting lower extremity bilateral edema. Moving all 4 extremities spontaneously. Skin: Normal for age and race, grossly normal temperature and turgor. No acute rash. Neurologic: Alert and appropriate, no apparent acute deficits. Psychiatric: Mood and manner are appropriate. Grooming and personal hygiene are appropriate. Course <Wenceslao Encinas MD - Last Filed: 11/21/22 08:27> Vital Signs Vital signs: Vital Signs Temperature 36.4 C L 11/20/22 17:05 Pulse 82 11/20/22 17:05 Respiratory Rate 16 11/20/22 17:05 Blood Pressure 105/62 11/20/22 17:05 Pulse Oximetry 95 11/20/22 17:05 Temperature 36.4 C L 11/20/22 17:05 Temperature Source Skin 11/20/22 17:05 Pulse 82 11/20/22 17:05 Respiratory Rate 16 11/20/22 17:05 Blood Pressure 105/62 11/20/22 17:05 Pulse Oximetry 95 11/20/22 17:05 Oxygen Delivery Method Nasal Cannula 11/20/22 17:05 Oxygen Flow Rate 3 11/20/22 17:05 POCUS Exam (ED) <Wenceslao Encinas MD - Last Filed: 11/21/22 08:27> Limited Cardiac Exam DATE OF EXAM: 11/20/22 TIME OF EXAM: 17:58 PROVIDER THAT PERFORMED THE STUDY: Wenceslao Encinas REASON FOR EXAM: Syncope VISUALIZED STRUCTURES: Four Chambers, LVOT and Interventricular septum VIEW OBTAINED: Apical 4-Chamber, Parasternal long-axis and Subxiphoid PERTINENT FINDINGS/IMPRESSION: Other (Poor squeeze, aortic outflow tract less than 4 cm, RV less than LV, no significant pericardial effusion. No B-lines bilaterally.) Exam complete Sign Out <Wenceslao Encinas MD - Last Filed: 11/21/22 08:27> Sign Out Data: Sign Out Comment: Recurrent syncopal episodes with prolonged QTc concerning for possible polymorphic ventricular tachycardia pending consults at [facility] with cardiology. Last updated by Wenceslao Encinas MD at 11/20/22 19:57
--- NOTE | 2022-11-20 17:30 | DI.RAD_ITS ---
Exam(s) XR PORTABLE CHEST AP EXAM: XR PORTABLE CHEST AP CLINICAL HISTORY: Chest pain TECHNIQUE: 2D digital imaging was performed. COMPARISON: CR,XR XR CHEST 2V PA LATERAL from 11/13/2022 FINDINGS: LUNGS: Suboptimally inflated. Grossly clear. No pleural abnormality seen. HEART: Normal size. Coronary artery stents noted AORTA: Normal diameter. BONES: Prosthesis left shoulder. Soft tissues: Unremarkable. IMPRESSION: No acute findings. DATA REPOSITORY: RADIATION DOSE DELIVERED:
[2022-11-20] MEDS: MAGNESIUM SULFATE 2 GM/50 ML BAG IVPB (17:53)
--- NOTE | 2022-11-20 18:25 | DI.VRAD_ITS ---
PROCEDURE INFORMATION: Exam: XR Chest Exam date and time: 11/20/2022 5:56 PM Age: 47 years old Clinical indication: Pain; Other: Overall TECHNIQUE: Imaging protocol: Radiologic exam of the chest. Views: 1 view. COMPARISON: CR XR CHEST 2V PA LATERAL 11/13/2022 10:14 PM FINDINGS: Lungs: Unremarkable. No consolidation. Pleural spaces: Unremarkable. No pleural effusion. No pneumothorax. Heart/Mediastinum: Unremarkable. No cardiomegaly. Bones/joints: Left humeral arthroplasty. IMPRESSION: No acute findings. Dictated and Authenticated by: Juan Cagle MD. Ordering:LEILA Billy MD
[2022-11-20] MEDS: LORazepam 1 MG TAB PO (18:44)
[2022-11-20 19:10] LABS: HCT 42.5 % (36.0-46.0); HGB 13.5 g/dL (11.2-15.7); MCH 29.1 pg (27.0-33.0); MCHC 31.8 % (32.0-36.0); MCV 92 fL (80-95); MPV 9.9 fL (8.0-11.0); Platelet Count 397 10^3/uL (130-400); RBC 4.64 10^6/uL (3.93-5.22); RDW 14.2 % (11.7-14.6); RDW-SD 47.9 fL; WBC 11.03 10^3/uL (4.4-10.8)
[2022-11-20 19:26] LABS: HCG Qual (Serum) Negative
[2022-11-20 19:31] LABS: ALT 21 U/L (14-59); AST 17 U/L (15-37); Albumin 3.6 g/dL (3.4-5.0); Alkaline Phosphatase 128 U/L (46-116); Anion Gap 2.2 mmol/L (3-11); BUN 25 mg/dL (7-18); Bilirubin, Total 0.4 mg/dL (0.2-1.0); CO2 41.8 mmol/L (21.0-32.0); CREATININE 0.8 mg/dL (0.55-1.02); Calcium 9.6 mg/dL (8.5-10.1); Chloride 102 mmol/L (98-107); Glucose 73 mg/dL (74-106); NT-proBNP 309 pg/mL (<300); Potassium 3.4 mmol/L (3.5-5.1); Sodium 146 mmol/L (136-145); Total Protein 7.4 g/dL (6.4-8.2); Troponin I < 50 ng/L (<or=60)
[2022-11-20 21:07] LABS: Troponin I < 50 ng/L (<or=60)
[2022-11-20 21:26] LABS: COVID-19 PCR Negative (Negative); Influenza A PCR Negative (Negative); Influenza B PCR Negative (Negative); RSV PCR Negative (Negative); Source Nasopharynx
[2022-11-20] MEDS: Normal Saline 500 ML IV (21:26)
[2022-11-20] MEDS: Albuterol/Ipratropium 3 ML UPD VIAL UPD (21:34)
--- NOTE | 2022-11-20 21:57 | NUR.NOTE ---
Nursing Note: Report given to Carey HARTMAN
[2022-11-20] MEDS: diazePAM 5 MG TAB PO ×2 (23:03→23:04)
[2022-11-20] MEDS: Famotidine 20 MG TAB PO (23:03)
[2022-11-20] MEDS: Prochlorperazine 10 MG TAB 30 MG PO (23:04)
== END 2022-11-20 23:26 | disposition home or self-care (01) ==
PROVIDERS: Emergency Medicine; Emergency Provider Physician Assistant; PCP Family Medicine
DX: R42 Dizziness and giddiness (principal); R55 Syncope and collapse; R11.2 Nausea with vomiting, unspecified; R60.0 Localized edema; I25.10 Atherosclerotic heart disease of native coronary artery without angina pectoris; J45.909 Unspecified asthma, uncomplicated; E10.42 Type 1 diabetes mellitus with diabetic polyneuropathy; I50.22 Chronic systolic (congestive) heart failure; Z79.4 Long term (current) use of insulin; Z79.02 Long term (current) use of antithrombotics/antiplatelets; Z79.82 Long term (current) use of aspirin; Z86.16 Personal history of COVID-19; Z20.822 Contact with and (suspected) exposure to COVID-19
CPT/HCPCS: 80053; 85027; 87637; 93005; 93971; 96361; 96365; 99284; 71045; 83880; 84484; 84703; 93010; J7620

== ENCOUNTER 2022-11-23 10:16 | Inpatient (IN) | payer MEDICARE, MEDICAID, SELFPAY ==
[2022-11-23] VITALS (43 sets, daily range): BP systolic 90–148; BP diastolic 49–114; PULSE 67–90; RESP 11–30; TEMP 36.3–37.2; O2SAT 88–100
--- NOTE | 2022-11-23 10:15 | RT.EKG_ITS ---
APPROVED REPORT Exam: Resting ECG Reason for Exam: dizzy Patient Location: E HR:78 bpm ECG Measurements Heart Rate 78 AXIS SC 172 P 38 QRSd 92 QRS 71 QT 459 T 87 QTc 524 Conclusion Sinus rhythm...normal P axis, V-rate 60- 99 Anteroseptal infarct, old...Q >40mS, V1-V2 Prolonged QT interval...QTc >510mS
--- NOTE | 2022-11-23 10:30 | DI.RAD_ITS ---
Exam(s) XR TIB/FIB RT EXAM: XR TIB/FIB RT CLINICAL HISTORY: fall, ain mid tib. TECHNIQUE: 2D digital imaging was performed of the right tibia and fibula. Four images were obtained . AP and lateral views were obtained. COMPARISON: No exams were available for comparison FINDINGS: BONES: There is an acute fracture involving the proximal diaphysis of the right fibula. There is ant erior displacement of the distal fracture almost 1/2 shaft's width. There is also a nondisplaced fra cture of the distal fibular metaphysis above the level of the ankle joint. There is an acute oblique fracture at the junction of the middle and distal thirds of the right tibia. There is lateral displ acement of the distal fracture of about 6 mm. No bony destructive lesion is seen. Visualized portion of knee and ankle joints are unremarkable. SOFT TISSUE: There is soft tissue swelling of the leg. IMPRESSION: 1. Acute proximal and distal fractures of the right fibula. 2. Acute fracture of the right tibia as described above. DATA REPOSITORY: RADIATION DOSE DELIVERED:
--- NOTE | 2022-11-23 10:43 | W.ED.GENAD ---
Discharge Plan Disposition Patient Disposition: Admit to [facility] Discharge Details Chief Complaint: Trauma Clinical Impression: Syncope, Closed fracture of right fibula and tibia Primary Care Provider: Valentin Parekh ED Provider: Carlos Jimenes Home Meds and New Rx's Prescriptions: No Action acetaminophen 325 mg capsule 975 mg PO Q8H PRN atorvastatin [Lipitor] 80 mg tablet 80 mg PO DAILY clopidogrel [Plavix] 75 mg tablet 75 mg PO DAILY ferrous sulfate 325 mg (65 mg iron) tablet,delayed release (DR/EC) 325 mg PO Q OTHER DAY Tresiba FlexTouch U-200 200 unit/mL (3 mL) insulin pen 120 unit subcut DAILY magnesium oxide [MagOx] 400 mg (241.3 mg magnesium) tablet 400 mg PO BID metoprolol succinate [Toprol XL] 50 mg tablet extended release 24 hr 25 mg PO DAILY PRN nitroglycerin [Nitrostat] 0.4 mg tablet, sublingual 0.4 mg sublingual Q5M PRN Rx Instructions: do not exceed 3 doses per episode albuterol sulfate 2.5 mg /3 mL (0.083 %) solution for nebulization 2.5 mg inhalation Q6H PRN insulin lispro [Humalog KwikPen Insulin] 100 unit/mL insulin pen 10 unit subcut QID methadone 10 mg/5 mL Solution 120 mg PO DAILY gabapentin 600 mg Tablet 600 mg PO DIRECTED Qty: 20 0RF Rx Instructions: 600 mg PO q am and at noon; 1200 mg PO Qpm carboxymethylcellulose sodium [Refresh Plus] 0.5 % Dropperette 1 drp OU QID Qty: 50 0RF potassium chloride 10 mEq capsule, extended release 10 meq PO DAILY Patient Comments: TAKE ONE CAPSULE BY MOUTH EVERY DAY torsemide 20 mg tablet 40 mg PO DAILY Patient Comments: TAKE ONE TABLET BY MOUTH EVERY DAY cetirizine [Zyrtec] 10 mg tablet 10 mg PO DAILY PRN PRN (Reason: Allergy Symptoms) Patient Comments: TAKE ONE TABLET BY MOUTH EVERY DAY NEEDED aspirin [Adult Low Dose Aspirin] 81 mg tablet,delayed release (DR/EC) 81 mg PO DAILY Patient Comments: TAKE ONE TABLET BY MOUTH EVERY DAY citalopram [Celexa] 20 mg tablet 20 mg PO DAILY Patient Comments: TAKE ONE TABLET BY MOUTH EVERY DAY benzonatate 100 mg capsule 100 mg PO TID PRN PRN (Reason: Cough) Patient Comments: TAKE ONE CAPSULE BY MOUTH THREE TIMES A DAY NEEDED folic acid 1 mg tablet 1 mg PO DAILY Patient Comments: TAKE ONE TABLET BY MOUTH EVERY DAY albuterol sulfate [ProAir HFA] 90 mcg/actuation HFA aerosol inhaler 2 inh INHALATION Q3H PRN PRN (Reason: Shortness Of Breath Or Wheezing) Patient Comments: INHALE TWO PUFFS BY MOUTH EVERY 3 HOURS NEEDED colchicine [Colcrys] 0.6 mg tablet 0.6 mg PO BID Patient Comments: TAKE ONE TABLET BY MOUTH TWICE A DAY Advair HFA 45-21 mcg/actuation HFA aerosol inhaler 2 inh INHALATION BID Patient Comments: INHALE TWO PUFFS BY MOUTH TWICE A DAY Victoza 3-Tanmay 0.6 mg/0.1 mL (18 mg/3 mL) pen injector 0.6 mg SUBCUT DAILY Patient Comments: INJECT 0.6 MG UNDER THE SKIN ONCE DAILY TITRATE UP TOLERATED TO 1.2 MG DAILY, THEN MAINTAINANCE AT 1.8 MG DAILY Jardiance 10 mg tablet 10 mg PO DAILY Patient Comments: TAKE ONE TABLET BY MOUTH EVERY DAY pantoprazole [Protonix] 40 mg tablet,delayed release (DR/EC) 40 mg PO BID Patient Comments: TAKE ONE TABLET BY MOUTH TWICE A DAY levetiracetam 500 mg Tablet 500 mg PO BID Qty: 60 0RF naloxone [Narcan] 4 mg/actuation spray,non-aerosol 4 mg intranasal Q2-3M PRNQty: 2 0RF Rx Instructions: spray 1 dose into ONE nostril; alternate nostrils w each dose until help arrives potassium chloride 20 mEq tablet,ER particles/crystals 20 meq PO BID Qty: 10 0RF Medical Decision Making 1045 -- 47-year-old female with history of CAD, ICMO/chronic systolic CHF (LVEF of 39%), IDDM2, RAQUEL, chronic hypoxic respiratory failure on 2.5- 3L of O2 by SD, recurrent episodes of unresponsiveness who was admitted to [facility] ICU under the hospitalist service twice last month, having left AMA on first admission presents with right lower extremity pain and swelling after fall with another syncopal episode this morning. Concern for arrhythmia. EKG was reviewed and interpreted by me: Sinus rhythm, 78 bpm, prolonged QTc of 524. Plan to maintain on nurse monitoring. Consider right tib-fib fracture. Plan to obtain x-ray.? We will give Dilaudid 1 mg IV for pain. --Labs reviewed and nondiagnostic. -- X-ray of the right tib-fib reviewed and interpreted by me: Complex mid to distal tibial shaft fracture as well as fibular fracture. All results were discussed with the patient. Patient notes increased pain. Will give acetaminophen IV for pain. Posterior splint was applied by me. Patient neurovascular intact post splint application. I called and spoke with Dr. Sanchez discussed ED presentation and course, he reviewed x-rays and plans to take to the operating room. I called and spoke with JORGE Banerjee, discussed ED presentation course, she reviewed medical record including department record and feels patient can be safely cared for here at [facility]. Plan to admit to the hospitalist service. I called and spoke with Dr. Lion, discussed ED presentation course, he will admit the patient. Lab Data Lab results reviewed: Yes I reviewed the patient's lab results. Labs: Laboratory Tests Range/Units 11/23/22 11/23/22 11/23/22 10:45 10:45 11:05 WBC (4.4-10.8) 10^3/uL 9.65 RBC (3.93-5.22) 10^6/uL 4.47 Hgb (11.2-15.7) g/dL 13.3 Hct (36.0-46.0) % 40.4 MCV (80-95) fL 90 MCH (27.0-33.0) pg 29.8 MCHC (32.0-36.0) % 32.9 RDW (11.7-14.6) % 14.3 Plt Count (130-400) 10^3/uL 359 MPV (8.0-11.0) fL 9.7 Immature Gran % 0.4 Neutrophils % 52.8 Lymphocytes % 30.1 Monocytes % 10.9 Eosinophils % 5.4 Basophils % 0.4 Nucleated RBC % (0.0-0.3) % 0.0 Absolute Neutrophils (1.2-6.7) 10^3/uL 5.10 Absolute Lymphocytes (1.2-3.4) 10^3/uL 2.90 Absolute Monocytes (0.1-0.8) 10^3/uL 1.05 H Absolute Eosinophils (0.0-0.7) 10^3/uL 0.52 Absolute Basophils (0.0-0.2) 10^3/uL 0.04 Sodium (136-145) mmol/L 143 Potassium (3.5-5.1) mmol/L 3.7 Chloride (98-107) mmol/L 104 Carbon Dioxide (21.0-32.0) mmol/L 33.2 H Anion Gap (3-11) mmol/L 5.8 BUN (7-18) mg/dL 29 H Creatinine (0.55-1.02) mg/dL 0.9 Est GFR (CKD-EPI 2020) (mL/min/1.73m2) 79.35 Glucose (74-106) mg/dL 153 H Calcium (8.5-10.1) mg/dL 8.9 Magnesium (1.8-2.4) mg/dL 2.3 Total Bilirubin (0.2-1.0) mg/dL 0.3 AST (15-37) U/L 13 L ALT (14-59) U/L 19 Alkaline Phosphatase (46-116) U/L 114 Troponin I (<or=60) ng/L < 50 Total Protein (6.4-8.2) g/dL 6.9 Albumin (3.4-5.0) g/dL 3.3 L COVID-19 Source Nasal/Nares SARS-CoV-2 (PCR) (Negative) Negative HPI General Date/Time Provider Initiated Documentation: 11/23/22 10:19. Limitations to Documentation: no limitations. Information obtained by: patient. HPI Narrative: 47-year-old female with multiple medical problems including history of ischemic cardiomyopathy, CHF, diabetes, hypertension, hyperlipidemia, seen for frequent syncopal episodes, here with right leg pain after another syncopal episode this morning. Patient notes she passed out this morning and twisted her leg as she fell and thinks she broke her leg. Pain is severe and,. She notes she has been passing out multiple times a day every day. Related Data Home Medications Medication Instructions Recorded Confirmed acetaminophen 325 mg capsule 975 mg PO Q8H PRN 10/18/21 11/23/22 albuterol sulfate 2.5 mg/3 mL 2.5 mg inhalation Q6H PRN 10/18/21 11/23/22 (0.083 %) solution for nebulization atorvastatin 80 mg tablet (Lipitor) 80 mg PO DAILY 10/18/21 11/23/22 clopidogrel 75 mg tablet (Plavix) 75 mg PO DAILY 10/18/21 11/23/22 ferrous sulfate 325 mg (65 mg 325 mg PO Q OTHER DAY 10/18/21 11/23/22 iron) tablet,delayed release insulin degludec 200 unit/mL (3 120 unit subcut DAILY 10/18/21 11/23/22 mL) subcutaneous pen (Tresiba FlexTouch U-200 insulin) insulin lispro 100 unit/mL 10 unit subcut QID 10/18/21 11/23/22 subcutaneous pen (Humalog KwikPen (U-100) Insulin) magnesium oxide 400 mg (241.3 mg 400 mg PO BID 10/18/21 11/23/22 magnesium) tablet (MagOx) metoprolol succinate 50 mg 25 mg PO DAILY PRN 10/18/21 11/23/22 tablet,extended release 24 hr (Toprol XL) nitroglycerin 0.4 mg sublingual 0.4 mg sublingual Q5M PRN 10/18/21 11/23/22 tablet (Nitrostat) methadone 10 mg/5 mL oral solution 120 mg PO DAILY 03/15/22 11/23/22 carboxymethylcellulose sodium 0.5 1 drp OU QID #50 ea 08/15/22 11/23/22 % eye drops in a dropperette (Refresh Plus) gabapentin 600 mg tablet 600 mg PO DIRECTED #20 tabs 08/15/22 11/23/22 albuterol sulfate 90 mcg/actuation 2 inh inhalation Q3H PRN PRN 10/29/22 11/23/22 aerosol inhaler (ProAir HFA) Shortness Of Breath Or Wheezing aspirin 81 mg tablet,delayed 81 mg PO DAILY 10/29/22 11/23/22 release (Adult Low Dose Aspirin) benzonatate 100 mg capsule 100 mg PO TID PRN PRN Cough 10/29/22 11/23/22 cetirizine 10 mg tablet (Zyrtec) 10 mg PO DAILY PRN PRN Allergy 10/29/22 11/23/22 Symptoms citalopram 20 mg tablet (Celexa) 20 mg PO DAILY 10/29/22 11/23/22 colchicine 0.6 mg tablet (Colcrys) 0.6 mg PO BID 10/29/22 11/23/22 empagliflozin 10 mg tablet 10 mg PO DAILY 10/29/22 11/23/22 (Jardiance) fluticasone propionate 45 2 inh inhalation BID 10/29/22 11/23/22 mcg-salmeterol 21 mcg/actuation HFA inhaler (Advair HFA) folic acid 1 mg tablet 1 mg PO DAILY 10/29/22 11/23/22 liraglutide 0.6 mg/0.1 mL (18 mg/3 0.6 mg subcut DAILY 10/29/22 11/23/22 mL) subcutaneous pen injector (Victoza 3-Tanmay) pantoprazole 40 mg tablet,delayed 40 mg PO BID 10/29/22 11/23/22 release (Protonix) potassium chloride 10 mEq 10 meq PO DAILY 10/29/22 11/23/22 capsule,extended release torsemide 20 mg tablet 40 mg PO DAILY 10/29/22 11/23/22 levetiracetam 500 mg tablet 500 mg PO BID #60 tabs 10/31/22 11/23/22 naloxone 4 mg/actuation nasal 4 mg intranasal Q2-3M PRN #2 ea 10/31/22 11/23/22 spray (Narcan) potassium chloride 20 mEq 20 meq PO BID #10 tabs 11/13/22 11/23/22 tablet,extended release(part/cryst) Previous Rx's Medication Instructions Recorded carboxymethylcellulose sodium 0.5 1 drp OU QID #50 ea 08/15/22 % eye drops in a dropperette (Refresh Plus) gabapentin 600 mg tablet 600 mg PO DIRECTED #20 tabs 08/15/22 levetiracetam 500 mg tablet 500 mg PO BID #60 tabs 10/31/22 naloxone 4 mg/actuation nasal 4 mg intranasal Q2-3M PRN #2 ea 10/31/22 spray (Narcan) potassium chloride 20 mEq 20 meq PO BID #10 tabs 11/13/22 tablet,extended release(part/cryst) Allergies Allergy/AdvReac Type Severity Reaction Status Date / Time Bleach (Sodium Hypochlorite) Allergy Unknown Verified 11/23/22 10:21 mushroom Allergy Unknown Verified 11/23/22 10:21 Penicillins Allergy Unknown Verified 11/23/22 10:21 tramadol Allergy Unknown Verified 11/23/22 10:21 mold Allergy Verified 11/23/22 10:21 trazodone Allergy Unverified 11/23/22 10:21 General Stated Complaint: Trauma SHANIA: 3 Review of Systems Constitutional Constitutional: Denies fever(s) and Denies headache(s) ENT Ears, Nose, Mouth, and Throat: Denies headache(s) Musculoskeletal Musculoskeletal: Reports as per HPI and Denies numbness Neurologic Neurologic: Denies headache(s), Denies numbness and Denies sensory deficit PFSH All Active Problems (Updated 11/23/22 @ 13:33 by Carlos Jimenes MD) Syncope (Chronic) Closed fracture of right fibula and tibia (Acute) Closed fracture of shaft of right tibia and fibula (Acute 11/23/22) Dizziness (Acute) Syncopal episodes (Chronic) Vomiting (Acute) QT prolongation (Acute) Nonspecific paroxysmal spell (Acute) Episode of unresponsiveness (Acute) Chronic systolic CHF (congestive heart failure) (Chronic) Ischemic cardiomyopathy (Acute) Obstructive sleep apnea (Chronic) Hallucinations (Acute) Chronic respiratory failure with hypoxia (Chronic) Fracture of finger, left (Acute) Syncopal episodes (Chronic) Acute hypokalemia (Acute) Observed seizure-like activity (Acute) Opioid dependence on agonist therapy (Acute) Leg wound, left (Acute) Facial palsy (Acute) Pulmonary HTN (Acute) Heart failure (Acute) 09/02/21 with AL low EF Non-STEMI (non-ST elevated myocardial infarction) (Acute) 09/02/21 Vertigo (Acute) GERD (gastroesophageal reflux disease) (Chronic) Essential hypertension (Acute) Asthma (Chronic) Depression (Chronic) PTSD (post-traumatic stress disorder) (Acute) Tobacco abuse disorder (Acute) Hypokalemia (Acute) Chronic gout (Acute) Hyperlipidemia (Acute) Diabetic peripheral neuropathy (Acute) Type 2 diabetes mellitus (Chronic) Medical History COVID was vaccinated but contracted Covid 06/22 History of gastrointestinal ulcer Surgical History H/O bone graft left knee H/O shoulder surgery x4 and ending with a full replacement H/O total hysterectomy History of appendectomy History of colonoscopy History of esophagogastroduodenoscopy (EGD) gastritis with gastric ulcers Previous section x4 delivery Family History Mother Cancer Heart disease Obstructive lung disease Depression Arthritis Degeneration of intervertebral disc Father Alcohol use disorder Brother Hypertension Mood disorder Maternal Grandfather Alcohol use disorder Maternal Grandmother Breast cancer Maternal Aunt Breast cancer Paternal Aunt Breast cancer Social History Smoking/Tobacco Use Status: Current every day Tobacco Type: cigarettes Tobacco: How many years used: 34 Smoking risk assessment performed?: Yes Alcohol Intake: current Alcohol Intake frequency: holidays/special occasions only Alcohol type: beer Drug use: Never Substance use type: does not use Do you feel safe at home: Yes Do you feel safe in your relationship?: Yes Exam Const General: cooperative and no acute distress HENMT Mouth: moist mucous membranes Eyes Conjunctivae: normal conjunctivae Sclera: normal sclerae Neck Neck: trachea midline Resp Auscultation: clear to auscultation bilaterally, no rales, no rhonchi and no wheezes Cardio Rate: regular rate and not tachycardic Rhythm: regular rhythm GI Palpation: soft, not firm, no guarding, no masses, not rigid and nontender Skin General skin exam: no rashes or lesions noted Neuro General: patient alert, patient awake and tone normal Extrem General: no edema Right lower extremity: lower leg Details: tenderness Location: of the midshaft tibia and localized swelling Location: of the mid lower leg Psych Appearance: grossly normal Mental Status: mental status grossly normal Course Vital Signs Vital signs: Vital Signs Temperature 37.2 C 11/23/22 10:17 Pulse 90 11/23/22 10:17 Respiratory Rate 30 H 11/23/22 10:17 Blood Pressure 124/78 11/23/22 10:17 Pulse Oximetry 96 11/23/22 10:17 Temperature 37.2 C 11/23/22 10:17 Pulse 90 11/23/22 10:17 Respiratory Rate 30 H 11/23/22 10:17 Blood Pressure 124/78 11/23/22 10:17 Blood Pressure Position Supine 11/23/22 10:17 Pulse Oximetry 96 11/23/22 10:17 Oxygen Delivery Method Room Air 11/23/22 10:17 Oxygen Flow Rate 0 11/23/22 10:17 Pain Level 10 11/23/22 10:17 Procedures Orthopedic Splinting/Casting Injury #1: Side: right Lower Extremity Injury Location: lower leg Lower Extremity Immobilizer: posterior splint Additional Comments: Patient neurovascular intact post splint application
[2022-11-23 11:09] LABS: Abs Immature Grans 0.04 10^3/uL (0.0-0.06); Absolute Basophil Count 0.04 10^3/uL (0.0-0.2); Absolute Eosinophil Count 0.52 10^3/uL (0.0-0.7); Absolute Monocyte Count 1.05 10^3/uL (0.1-0.8); Basophils % 0.4; Eosinophils % 5.4; HCT 40.4 % (36.0-46.0); HGB 13.3 g/dL (11.2-15.7); Immature Grans % 0.4; Lymphocytes % 30.1; MCH 29.8 pg (27.0-33.0); MCHC 32.9 % (32.0-36.0); MCV 90 fL (80-95); MPV 9.7 fL (8.0-11.0); Monocytes % 10.9; Neutrophils % 52.8; Platelet Count 359 10^3/uL (130-400); RBC 4.47 10^6/uL (3.93-5.22); RDW 14.3 % (11.7-14.6); RDW-SD 47.5 fL; WBC 9.65 10^3/uL (4.4-10.8)
[2022-11-23] MEDS: HYDROmorphone 2 MG/ML SYR 1 MG IVP (11:10)
[2022-11-23 11:20] LABS: Source Nasal/Nares
[2022-11-23 11:25] LABS: ALT 19 U/L (14-59); AST 13 U/L (15-37); Albumin 3.3 g/dL (3.4-5.0); Alkaline Phosphatase 114 U/L (46-116); Anion Gap 5.8 mmol/L (3-11); BUN 29 mg/dL (7-18); Bilirubin, Total 0.3 mg/dL (0.2-1.0); CO2 33.2 mmol/L (21.0-32.0); CREATININE 0.9 mg/dL (0.55-1.02); Calcium 8.9 mg/dL (8.5-10.1); Chloride 104 mmol/L (98-107); Estimated GFR 79.35 (mL/min/1.73m2); Glucose 153 mg/dL (74-106); Magnesium 2.3 mg/dL (1.8-2.4); Potassium 3.7 mmol/L (3.5-5.1); Sodium 143 mmol/L (136-145); Total Protein 6.9 g/dL (6.4-8.2); Troponin I < 50 ng/L (<or=60)
[2022-11-23 11:57] LABS: COVID-19 PCR Negative (Negative)
[2022-11-23] MEDS: ACETAMINOPHEN 1,000 MG/100 ML BTL 100 MG (13:00)
--- NOTE | 2022-11-23 13:28 | OCONE_ITS ---
Assessment and Plan Assessment and plan (1) Closed fracture of shaft of right tibia and fibula: Status: Acute Assessment and plan: 47-year-old female with right tib-fib fractures Patient describes low?energy, twisting mechanism right leg injury while syncopized earlier today. No pre-existing leg problems. Does report diabetic peripheral neuropathy. Her right leg feels different from below the knee through the toes. She is comfortable except for some sharp pains when she feels the bones moving in the splint. No other orthopedic injuries although she says her left shoulder is somewhat aching more than usual. Contralateral left leg mini?compartment releases for fasciotomy after what sounds like pain after found down last year at [facility]. Left ankle fractures with patient reported poor healing. Objectively, comfortable at rest. Answering questions without difficulty. No acute distress at all. Vital signs without any hypertension or tachycardia. Right leg splint windowed about the fracture site. Skin intact. Accessible co mpartments at this site completely soft with excellent skin wrinkling and no notable discomfort on testing. No significant pain or discomfort with passive stretch of toes. Able to wiggle toes and demonstrate EHL. She does have notable altered sensation, which is decreased and different from her baseline neuropathy entirely about the leg foot and toes. Normal above the knee. Contralateral left leg has small proximal shaft medial and lateral well-healed incisions from prior fasciotomy. Chart review at [facility] shows surgery was due to difficulties in pain management more than true compartment syndrome. Operative note shows samples done although largely benign with concern for myositis or fasciitis due to severe pain. Discussed thoroughly with patient, hospitalist team, and anesthesia teams. Challenging patient due to cardiac, pulmonary, and psychosocial issues including chronic pain, methadone, and active illicit drug abuse. Plan on surgery tomorrow, 24 hours after active drug use as tox screen today shows positive cocaine. Continue multimodal pain management. Narcotic/opiate use judiciously. Maintain splint, and right lower extremity elevated comfortably on pillows. Encourage patient to wiggle toes for circulation. Low?energy injury with leg exam very reassuring for no compartment syndrome at this time. Unclear nerve altered sensations, monitor. Monitor for any undue swelling about the leg or objective signs of distress. Subjective pain symptoms will be difficult to interpret. Fortunately, patient has missed her last 2 days of Plavix. Last dose Monday. She has still been on aspirin. Hold aspirin and Plavix pending surgery tomorrow. Plan to resume 24 hours postoperatively. Low?threshold to transfer to tertiary care facility if cardiac, pulmonary, renal or neurologic status deteriorates. Call if any changes or concerns. Discussed with nursing staff including appropriate monitoring of the injured leg [facility] All Active Problems Syncope (Chronic) Closed fracture of right fibula and tibia (Acute) Closed fracture of shaft of right tibia and fibula (Acute 11/23/22) Dizziness (Acute) Syncopal episodes (Chronic) Vomiting (Acute) QT prolongation (Acute) Nonspecific paroxysmal spell (Acute) Episode of unresponsiveness (Acute) Chronic systolic CHF (congestive heart failure) (Chronic) Ischemic cardiomyopathy (Acute) Obstructive sleep apnea (Chronic) Hallucinations (Acute) Chronic respiratory failure with hypoxia (Chronic) Fracture of finger, left (Acute) Syncopal episodes (Chronic) Acute hypokalemia (Acute) Observed seizure-like activity (Acute) Opioid dependence on agonist therapy (Acute) Leg wound, left (Acute) Facial palsy (Acute) Pulmonary HTN (Acute) Heart failure (Acute) 09/02/21 with RI low EF Non-STEMI (non-ST elevated myocardial infarction) (Acute) 09/02/21 Vertigo (Acute) GERD (gastroesophageal reflux disease) (Chronic) Essential hypertension (Acute) Asthma (Chronic) Depression (Chronic) PTSD (post-traumatic stress disorder) (Acute) Tobacco abuse disorder (Acute) Hypokalemia (Acute) Chronic gout (Acute) Hyperlipidemia (Acute) Diabetic peripheral neuropathy (Acute) Type 2 diabetes mellitus (Chronic) Medical History COVID was vaccinated but contracted Covid 06/22 History of gastrointestinal ulcer Surgical History H/O bone graft left knee H/O shoulder surgery x4 and ending with a full replacement H/O total hysterectomy History of appendectomy History of colonoscopy History of esophagogastroduodenoscopy (EGD) gastritis with gastric ulcers Previous section x4 delivery Family History Mother Cancer Heart disease Obstructive lung disease Depression Arthritis Degeneration of intervertebral disc Father Alcohol use disorder Brother Hypertension Mood disorder Maternal Grandfather Alcohol use disorder Maternal Grandmother Breast cancer Maternal Aunt Breast cancer Paternal Aunt Breast cancer Social History Smoking/Tobacco Use Status: Current every day Tobacco Type: cigarettes Tobacco: How many years used: 34 Smoking risk assessment performed?: Yes Alcohol Intake: current Alcohol Intake frequency: holidays/special occasions only Alcohol type: beer Drug use: Never Substance use type: does not use Do you feel safe at home: Yes Do you feel safe in your relationship?: Yes Results Last Vital Signs Temp 99 F 11/23/22 10:17 Pulse 75 11/23/22 12:30 Resp 17 11/23/22 12:40 BP 90/57 L 11/23/22 12:30 Pulse Ox 100 11/23/22 12:40 Labs 11/23/22 10:45 11/23/22 10:45 Labs: Laboratory Results - last 24 hr 11/23/22 11/23/22 11/23/22 10:45 10:45 11:05 WBC 9.65 RBC 4.47 Hgb 13.3 Hct 40.4 MCV 90 MCH 29.8 MCHC 32.9 RDW 14.3 Plt Count 359 MPV 9.7 Immature Gran % 0.4 Neutrophils % 52.8 Lymphocytes % 30.1 Monocytes % 10.9 Eosinophils % 5.4 Basophils % 0.4 Nucleated RBC % 0.0 Absolute Neutrophils 5.10 Absolute Lymphocytes 2.90 Absolute Monocytes 1.05 H Absolute Eosinophils 0.52 Absolute Basophils 0.04 Sodium 143 Potassium 3.7 Chloride 104 Carbon Dioxide 33.2 H Anion Gap 5.8 BUN 29 H Creatinine 0.9 Est GFR (CKD-EPI 2020) 79.35 Glucose 153 H Calcium 8.9 Magnesium 2.3 Total Bilirubin 0.3 AST 13 L ALT 19 Alkaline Phosphatase 114 Troponin I < 50 Total Protein 6.9 Albumin 3.3 L COVID-19 Source Nasal/Nares SARS-CoV-2 (PCR) Negative
[2022-11-23 14:16] LABS: Troponin I < 50 ng/L (<or=60)
--- NOTE | 2022-11-23 14:55 | PUCON_ITS ---
General Date Of Service Date of service: 11/23/22 Time of Service: 14:55 Reason for Consult: Hypoxic Respiratory Failure, risk of postoperative complications Assessment and Plan Assessment and plan (1) Syncope: Status: Chronic (2) Closed fracture of shaft of right tibia and fibula: Status: Acute (3) Chronic respiratory failure with hypoxia: Status: Chronic (4) Ischemic cardiomyopathy: Status: Acute (5) Obstructive sleep apnea: Status: Chronic Assessment and plan: supplemental O2 to keep SpO2 >88% (6) Tobacco abuse disorder: Status: Acute Assessment and plan: 47 year old female presents after experiencing a syncopal episode resulting in a fall and sustaining a right tib/fib fracture. She is awaiting surgery with Dr. Sanchez planned for tomorrow afternoon. Her PMHx includes current smoker (1/2 ppd, 35 pack years), asthma, chronic hypoxic respiratory failure on 2- 3L of O2, RAQUEL, CAD s/p NSTEMI with PCI to EMILEE to RCA 09/2021 and LAD/RCA 05/2022, HFrEF (LVEF of 39%), diabetes (A1C 10/18/22 6.2), renal mass, recurrent episodes of unresponsiveness, left leg compartment syndrome s/p fasciotomy 01/2022, left anatomic shoulder replacement ([facility]~2010?), chronic pain with narcotic dependence (on methadone), ADHD, anxiety, depression and PTSD. Recently hospitalized with the flu at [facility] 09/15/22 and admitted 10/18/22 at [facility] for increasing episode of syncope of unknown etiology since the Spring 2021 - no known etiology found during admission- recommend Zio for outpatient monitoring When I went to see the patient she was very somnolent and difficult to arouse. I was able to have her open her eyes. SpO2 88% on RA so I placed her on a 2L NC and achieved SpO2 93-95%. When asked questions she fell asleep mid-sentence. I made nursing and the hospitalist aware. Consider UA drug screening. Patient has had continued syncopal episodes daily - high fall risk especially post- operatively. Further recommendations as listed below. Hypoxic Respiratory Failure - continue supplemental O2 to keep SpO2 >88% - ARISCAT score for postoperative complications: intermediate, 13.3% risk of in- hospital post-op pulmonary complications - consider extubating to CPAP Suspected Asthma - PFT 10/26/21 does not reveal COPD - [facility] notes asthma however, there is no methacholine study in her history that I see, this can further worked up outpatient - continue home advair 2 puffs BID and PRN albuterol for admission Chronic pain on methadone -her pain may be difficult to manage post-operatively - Patient on high dose gabapentin at home and methadone. If unable to control pain with gabapentin, tylenol and oxycodone or dilaudid, she may require ketamine HFrEF, ischemic cardiomyopathy - no evidence of fluid overload on exam today, lungs are clear to auscultation, left foot, ankle, leg without edema - continue to maintain euvolemia - maintain O2 saturation >88% RAQUEL - noctural O2 to keep Sp02 >88% - to my understanding the patient does not wear CPAP at home - consider CPAP HS if needed for increased WOB History of Present Illness Narrative: 47 year old female presents after experiencing a syncopal episode resulting in a fall subsequently sustaining a right tib/fib fracture. She is awaiting surgery with Dr. Sanchez planned for tomorrow afternoon. She is very somulent and falling asleep mid-sentence making history gathering difficult. She reports not sleeping well last night. Most of my history was obtained through medical records. Her PMHx includes current smoker (1/2 ppd, 35 pack years), asthma, chronic hypox ic respiratory failure on 2- 3L of O2, RAQUEL, CAD s/p NSTEMI with PCI to EMILEE to RCA 09/2021 and LAD/RCA 05/2022, HFrEF (LVEF of 39%), Type 1 diabetes (A1C 10/18/22 6.2), renal mass, recurrent episodes of unresponsiveness, left leg compartment syndrome s/p fasciotomy 01/2022, left anatomic shoulder replacement ([facility]~2010?), chronic pain with narcotic dependence (on methadone), ADHD, anxiety, depression and PTSD. Recently hospitalized with the flu at [facility] 09/15/22 Was admitted 10/18/22 at [facility] for increasing episodes of syncope of unknown etiology since the Spring 2021 Unable to obtain detailed information about her support system. Lives in [place] with her 4 children, significant other is incarcerated. Review of Systems Unobtainable due to mental status [facility] All Active Problems (Updated 11/26/22 @ 16:41 by Brii Baeza MD) DVT prophylaxis (Acute) Discharge planning issues (Acute) Syncope (Chronic) Closed fracture of right fibula and tibia (Acute) Closed fracture of shaft of right tibia and fibula (Acute 11/23/22) s/p IMN of Right Tibia - 11/24/22 Dizziness (Acute) Syncopal episodes (Chronic) Vomiting (Acute) QT prolongation (Chronic) Nonspecific paroxysmal spell (Acute) Episode of unresponsiveness (Acute) Chronic systolic CHF (congestive heart failure) (Chronic) Ischemic cardiomyopathy (Acute) Obstructive sleep apnea (Chronic) Hallucinations (Acute) Chronic respiratory failure with hypoxia (Chronic) Fracture of finger, left (Acute) Syncopal episodes (Chronic) Acute hypokalemia (Acute) Observed seizure-like activity (Acute) Opioid dependence on agonist therapy (Acute) Leg wound, left (Acute) Facial palsy (Acute) Pulmonary HTN (Acute) Heart failure (Acute) 09/02/21 with [place] low EF Non-STEMI (non-ST elevated myocardial infarction) (Acute) 09/02/21 Vertigo (Acute) GERD (gastroesophageal reflux disease) (Chronic) Essential hypertension (Acute) Asthma (Chronic) Depression (Chronic) PTSD (post-traumatic stress disorder) (Acute) Tobacco abuse disorder (Acute) Hypokalemia (Acute) Chronic gout (Acute) Hyperlipidemia (Acute) Diabetic peripheral neuropathy (Acute) Type 2 diabetes mellitus (Chronic) Medical History COVID was vaccinated but contracted Covid 06/22 History of gastrointestinal ulcer Surgical History H/O bone graft left knee H/O shoulder surgery x4 and ending with a full replacement H/O total hysterectomy History of appendectomy History of colonoscopy History of esophagogastroduodenoscopy (EGD) gastritis with gastric ulcers Previous section x4 delivery Family History Mother Cancer Heart disease Obstructive lung disease Depression Arthritis Degeneration of intervertebral disc Father Alcohol use disorder Brother Hypertension Mood disorder Maternal Grandfather Alcohol use disorder Maternal Grandmother Breast cancer Maternal Aunt Breast cancer Paternal Aunt Breast cancer Social History Smoking/Tobacco Use Status: Current every day Tobacco Type: cigarettes Tobacco: How many years used: 34 Smoking risk assessment performed?: Yes Alcohol Intake: current Alcohol Intake frequency: holidays/special occasions only Alcohol type: beer Drug use: Never Substance use type: does not use Do you feel safe at home: Yes Do you feel safe in your relationship?: Yes Visit Medication and Allergies Active Medications Generic Name Dose Route Start Last Admin Trade Name Freq PRN Reason Stop Dose Admin Acetaminophen 500 mg 11/23/22 16:00 Acetaminophen 325 Mg Tab PO QID ALAN Albuterol Sulfate 2.5 mg 11/23/22 12:54 Albuterol 2.5 Mg/3 Ml Inh Soln Vial UPD Q2H PRN PRN Atorvastatin Calcium 80 mg 11/23/22 20:00 Atorvastatin 40 Mg Tab PO QPM ALAN Budesonide/Formoterol Fumarate 2 puff 11/23/22 20:00 Budesonide/Formoterol 80/4.5 6.9 Gm 60 Puff Inh IH BID ALAN Cetirizine HCl 10 mg 11/23/22 12:54 Cetirizine 10 Mg Tab PO DAILY PRN PRN Allergy Symptoms Citalopram Hydrobromide 20 mg 11/24/22 08:30 Citalopram 20 Mg Tab PO DAILY [facility] Colchicine 0.6 mg 11/23/22 20:00 Colchicine 0.6 Mg Tab PO BID [facility] Dextrose 0 gm 11/23/22 13:02 Glucose Oral Gel 15 Gm/37.5 Gm Tube PO DIRECTED PRN Dextrose/Water 0 gm 11/23/22 13:02 Dextrose 50%-Water 25 Gm/50 Ml Syr IVP DIRECTED PRN Dimethicone/Zinc Oxide 0 gm 11/23/22 12:48 Meche Protect Cream 142 Gm Tube TP PRN PRN Empagliflozin 10 mg 11/24/22 08:30 Empaglifozin 10 Mg Tab PO DAILY [facility] Gabapentin 600 mg 11/23/22 14:30 Gabapentin 600 Mg Tab PO BID@0800,1200 [facility] Gabapentin 1,200 mg 11/23/22 20:00 Gabapentin 600 Mg Tab PO QPM [facility] Hydromorphone HCl 1 mg 11/23/22 14:17 Hydromorphone 2 Mg/Ml Vial IVP Q4H PRN PRN Sodium Chloride 500 mls @ 0 mls/hr 11/23/22 10:41 Saline 500ml Bag IV PRN PRN As Directed IV Miscellaneous Supplies 1 each 11/23/22 10:45 Iv Access IV DIRECTED [facility] Insulin Aspart 0 units 11/23/22 17:00 Insulin Aspart 300 Units/3 Ml Pen SC 0800,1200,1700 [facility] Protocol Levetiracetam 500 mg 11/23/22 20:00 Levetiracetam 500 Mg Tab PO BID [facility] Magnesium Hydroxide 30 ml 11/23/22 12:54 Milk Of Magnesia 30 Ml Cup PO DAILY PRN PRN Methadone HCl 120 mg 11/24/22 08:30 Methadone Liquid 10 Mg/Ml PO DAILY [facility] Metoprolol Succinate 25 mg 11/24/22 08:30 Metoprolol Cr 25 Mg Tabcr PO DAILY [facility] Pantoprazole Sodium 40 mg 11/23/22 20:00 Pantoprazole 40 Mg Tabcr PO BID [facility] Patient's Own 0.6 each 11/24/22 08:30 Medication (Victoza SC 0.6 Mg/0.1 Ml Pen) DAILY [facility] Polyethylene Glycol 17 gm 11/23/22 12:54 Polyethylene Glycol 3350 17 Gm Packet PO DAILY PRN PRN Constipation Potassium Chloride 20 meq 11/23/22 20:00 Potassium Chloride 20 Meq Tabcr PO BID [facility] Sodium Chloride 0 ml 11/23/22 10:41 Normal Saline Flush 10 Ml Syr IVP PRN PRN Torsemide 40 mg 11/24/22 08:30 Torsemide 20 Mg Tab PO DAILY [facility] Allergies Bleach (Sodium Hypochlorite) Allergy (Unknown, Verified 11/23/22 10:21) mushroom Allergy (Unknown, Verified 11/23/22 10:21) Penicillins Allergy (Unknown, Verified 11/23/22 10:21) tramadol Allergy (Unknown, Verified 11/23/22 10:21) mold Allergy (Verified 11/23/22 10:21) trazodone Allergy (Unverified 11/23/22 10:21) Exam Const General: other (patient difficult to arouse, falling asleep mid-sentence) Resp Effort & Inspection: normal respiratory effort Auscultation: clear to auscultation bilaterally, no rales, no rhonchi and no wheezes Cardio Rate: regular rate Rhythm: regular rhythm Extrem General: no edema Other: Right lower extremity in posterior splint. Left lower extremity with evidence of healed fasciotomy sites, without edema, erythema Results Last Vital Signs Temp 99 F 11/23/22 10:17 Pulse 67 11/23/22 13:38 Resp 19 11/23/22 13:40 BP 98/59 L 11/23/22 13:38 Pulse Ox 95 11/23/22 13:40 Labs 11/23/22 10:45 11/23/22 10:45 Comments: Spirometry Date FEV1/FVC LLN FEV1 % LLN FVC % LLN Comments 10/26/21 79 71 2.49 89 2.23 3.17 90 2.83 no c hange with BD Date TLC % LLN RV % DLCO LLN sGaw % Pressures 10/26/21 5.83 118 3.83 2.31 139 20.65 15.14 ? CXR 11/20/22 IMPRESSION: No acute abnormality. CXR 11/13/22 IMPRESSION: No acute abnormality. TTE 10/19/2022 - LVEF 39% RV normal TTE 08/22/2022 - LVEF 35-40%, RV normal, mild MR, PFO noted TTE 05/13/2022 - LVEF 31% with segmental WMA. RV normal Cardiac Cath Hx 09/03/2021: PCI with EMILEE - RCA; 05/17/2022: PCI with EMILEE - LAD and RCA
--- NOTE | 2022-11-23 15:35 | HPE_ITS ---
Date of service: 11/23/22 Time of Service: 15:35 Assessment and Plan Assessment and plan (1) Closed fracture of right fibula and tibia: Status: Acute Assessment and plan: Secondary to fall/syncope. Ortho. and anesthesia have evaluated. Planned repair tomorrow. Pt very lethargic; only received 1mg IV Dilaudid in the ED. UDS pending. Scheduled acetaminophen and naprosyn ordered. PRN dilaudid; watching for oversedation. (2) Syncopal episodes: Status: Chronic Assessment and plan: She endorses daily occurences. During last admission a transfer to a tertiary care center with in-house marii rology and EEG was sought, but neither [facility] nor [facility] had available beds. (3) QT prolongation: Status: Acute Assessment and plan: On methadone and citalopram. Avoiding zofran. (4) Chronic systolic CHF (congestive heart failure): Status: Chronic Assessment and plan: Cont torsemide. Heart Healthy diet (NPO after MN for surgery tomorrow). (5) Ischemic cardiomyopathy: Status: Acute Assessment and plan: CAD with drug eluting stent. Holding plavix and ASA; surgical repair of tib-fib fx planned for tomorrow. Cont BB (6) Obstructive sleep apnea: Status: Chronic Assessment and plan: Questionably contributing to her episodes of LOC; not on CPAP. Planning BiPAP overnight. Questionably has a hypersomnia disorder as well? Needs to see sleep specialist for work-up. Pt unable to give info on any previous sleep studies. (7) Tobacco abuse disorder: Status: Acute Assessment and plan: Nicoderm 14mg. (8) Type 2 diabetes mellitus: Status: Chronic Assessment and plan: Cont Jardiance and Victoza. Holding her scheduled basal/bolus insulin; lethargic and not eating currently and will NPO after MN. SS insulin prn correction dosing. Diabetic (and heart healthy) diet. History of Present Illness History of Present Illness Chief Complaint: Right leg pain Narrative: This is a 47 yo female with a PMH of ischemic cardiomyopathy, CAD, chronic systolic CHF (LVEF of 39%), PFO, polysubstance abuse on methadone, chronic pain, tobacco abuse disorder, DM2, RAQUEL, chronic hypoxic, hypercarbic respiratory failure (on 2.5-3L O2 per NC), recurrent episodes of unresponsiveness/LOC, left leg compartment syndrome s/p fasciotomy 01/2022, left anatomic shoulder replacement. She presented after stating she had a syncopal episode on the AM of admission and twisted her right leg as she fell. She believed she broke the leg below the knee. She c/o RLE pain, no CP/palpitations, N/V/abd pain. She was admitted to [facility] ICU x2 in October of 2022; she left AMA the first admission, then second was for unresponsive spells accompanied by convulsive activity. On that admission, she did not have any more episodes after one again witnessed in the ED.She was initiated on keppra yet again. She underwent an EEG, not c/w epileptiform discharges, and a neurology consultation.?Dr Elliott suspects that the patient may have sleep-related events resulting in jerking movements related to untreated sleep apnea. Evaluation in the ED: EKG with NSR, rate of 78, prolonged QTc of 524. CBC and lytes normal. Urine drug screen pending. + UDS on 11/13/22 for cocaine. Xray of right tib-fib showed a complex mid to distal tibial shaft fracture and fibular fracture. Review of Systems All systems reviewed & are unremarkable except as noted in HPI and below PFSH All Active Problems Syncope (Chronic) Closed fracture of right fibula and tibia (Acute) Closed fracture of shaft of right tibia and fibula (Acute 11/23/22) Dizziness (Acute) Syncopal episodes (Chronic) Vomiting (Acute) QT prolongation (Acute) Nonspecific paroxysmal spell (Acute) Episode of unresponsiveness (Acute) Chronic systolic CHF (congestive heart failure) (Chronic) Ischemic cardiomyopathy (Acute) Obstructive sleep apnea (Chronic) Hallucinations (Acute) Chronic respiratory failure with hypoxia (Chronic) Fracture of finger, left (Acute) Syncopal episodes (Chronic) Acute hypokalemia (Acute) Observed seizure-like activity (Acute) Opioid dependence on agonist therapy (Acute) Leg wound, left (Acute) Facial palsy (Acute) Pulmonary HTN (Acute) Heart failure (Acute) 09/02/21 with [place] low EF Non-STEMI (non-ST elevated myocardial infarction) (Acute) 09/02/21 Vertigo (Acute) GERD (gastroesophageal reflux disease) (Chronic) Essential hypertension (Acute) Asthma (Chronic) Depression (Chronic) PTSD (post-traumatic stress disorder) (Acute) Tobacco abuse disorder (Acute) Hypokalemia (Acute) Chronic gout (Acute) Hyperlipidemia (Acute) Diabetic peripheral neuropathy (Acute) Type 2 diabetes mellitus (Chronic) Medical History COVID was vaccinated but contracted Covid 06/22 History of gastrointestinal ulcer Surgical History H/O bone graft left knee H/O shoulder surgery x4 and ending with a full replacement H/O total hysterectomy History of appendectomy History of colonoscopy History of esophagogastroduodenoscopy (EGD) gastritis with gastric ulcers Previous section x4 delivery Family History Mother Cancer Heart disease Obstructive lung disease Depression Arthritis Degeneration of intervertebral disc Father Alcohol use disorder Brother Hypertension Mood disorder Maternal Grandfather Alcohol use disorder Maternal Grandmother Breast cancer Maternal Aunt Breast cancer Paternal Aunt Breast cancer Social History Smoking/Tobacco Use Status: Current every day Tobacco Type: cigarettes Tobacco: How many years used: 34 Smoking risk assessment performed?: Yes Alcohol Intake: current Alcohol Intake frequency: holidays/special occasions only Alcohol type: beer Drug use: Never Substance use type: does not use Do you feel safe at home: Yes Do you feel safe in your relationship?: Yes Meds Allergies and Home Medications Allergies Allergy/AdvReac Type Severity Reaction Status Date / Time Bleach (Sodium Hypochlorite) Allergy Unknown Verified 11/23/22 10:21 mushroom Allergy Unknown Verified 11/23/22 10:21 Penicillins Allergy Unknown Verified 11/23/22 10:21 tramadol Allergy Unknown Verified 11/23/22 10:21 mold Allergy Verified 11/23/22 10:21 trazodone Allergy Unverified 11/23/22 10:21 Home Medications Medication Instructions Recorded Confirmed Type acetaminophen 325 mg capsule 975 mg PO Q8H PRN 10/18/21 11/23/22 History albuterol sulfate 2.5 mg/3 mL 2.5 mg inhalation Q6H PRN 10/18/21 11/23/22 History (0.083 %) solution for nebulization atorvastatin 80 mg tablet (Lipitor) 80 mg PO DAILY 10/18/21 11/23/22 History clopidogrel 75 mg tablet (Plavix) 75 mg PO DAILY 10/18/21 11/23/22 History ferrous sulfate 325 mg (65 mg 325 mg PO Q OTHER DAY 10/18/21 11/23/22 History iron) tablet,delayed release insulin degludec 200 unit/mL (3 120 unit subcut DAILY 10/18/21 11/23/22 History mL) subcutaneous pen (Tresiba FlexTouch U-200 insulin) insulin lispro 100 unit/mL 10 unit subcut QID 10/18/21 11/23/22 History subcutaneous pen (Humalog KwikPen (U-100) Insulin) magnesium oxide 400 mg (241.3 mg 400 mg PO BID 10/18/21 11/23/22 History magnesium) tablet (MagOx) nitroglycerin 0.4 mg sublingual 0.4 mg sublingual Q5M PRN 10/18/21 11/23/22 History tablet (Nitrostat) methadone 10 mg/5 mL oral solution 120 mg PO DAILY 03/15/22 11/23/22 History carboxymethylcellulose sodium 0.5 1 drp OU QID #50 ea 08/15/22 11/23/22 Rx % eye drops in a dropperette (Refresh Plus) gabapentin 600 mg tablet 600 mg PO DIRECTED #20 tabs 08/15/22 11/23/22 Rx albuterol sulfate 90 mcg/actuation 2 inh inhalation Q3H PRN PRN 10/29/22 11/23/22 History aerosol inhaler (ProAir HFA) Shortness Of Breath Or Wheezing aspirin 81 mg tablet,delayed 81 mg PO DAILY 10/29/22 11/23/22 History release (Adult Low Dose Aspirin) benzonatate 100 mg capsule 100 mg PO TID PRN PRN Cough 10/29/22 11/23/22 History cetirizine 10 mg tablet (Zyrtec) 10 mg PO DAILY PRN PRN Allergy 10/29/22 11/23/22 History Symptoms citalopram 20 mg tablet (Celexa) 20 mg PO DAILY 10/29/22 11/23/22 History colchicine 0.6 mg tablet (Colcrys) 0.6 mg PO BID 10/29/22 11/23/22 History empagliflozin 10 mg tablet 10 mg PO DAILY 10/29/22 11/23/22 History (Jardiance) fluticasone propionate 45 2 inh inhalation BID 10/29/22 11/23/22 History mcg-salmeterol 21 mcg/actuation HFA inhaler (Advair HFA) folic acid 1 mg tablet 1 mg PO DAILY 10/29/22 11/23/22 History liraglutide 0.6 mg/0.1 mL (18 mg/3 0.6 mg subcut DAILY 10/29/22 11/23/22 History mL) subcutaneous pen injector (Victoza 3-Tanmay) pantoprazole 40 mg tablet,delayed 40 mg PO BID 10/29/22 11/23/22 History release (Protonix) potassium chloride 10 mEq 10 meq PO DAILY 10/29/22 11/23/22 History capsule,extended release torsemide 20 mg tablet 40 mg PO DAILY 10/29/22 11/23/22 History levetiracetam 500 mg tablet 500 mg PO BID #60 tabs 10/31/22 11/23/22 Rx naloxone 4 mg/actuation nasal 4 mg intranasal Q2-3M PRN #2 ea 10/31/22 11/23/22 Rx spray (Narcan) potassium chloride 20 mEq 20 meq PO BID #10 tabs 11/13/22 11/23/22 Rx tablet,extended release(part/cryst) metoprolol succinate 25 mg 25 mg PO DAILY 11/23/22 11/23/22 History tablet,extended release 24 hr (Toprol XL) Exam Narrative Exam Narrative: Frail female, lethargic, answers some questions / slow to respond. Const General: cooperative and no acute distress Nutritional Appearance: underweight Limitations: altered mental status Eyes General: appearance normal, both eyes and all related structures Sclera: sclerae normal Resp Effort & Inspection: normal respiratory effort Auscultation: clear to auscultation bilaterally and diminished lung sounds Cardio Rate: regular rate Rhythm: regular rhythm Heart Sounds: S1 normal and S2 normal GI Inspection: non-distended Palpation: soft and nontender Skin General skin exam: other (Multitude of tattos. No rashes) Neuro General: moves all extremities Cranial Nerves: facial strength normal Extrem General: no pedal edema Right lower extremity: lower leg (Mid tib-fib shaft splint in place. ) Results Labs 11/23/22 10:45 11/23/22 10:45 Labs: Laboratory Results - last 24 hr 11/23/22 11/23/22 11/23/22 10:45 10:45 11:05 WBC 9.65 RBC 4.47 Hgb 13.3 Hct 40.4 MCV 90 MCH 29.8 MCHC 32.9 RDW 14.3 Plt Count 359 MPV 9.7 Immature Gran % 0.4 Neutrophils % 52.8 Lymphocytes % 30.1 Monocytes % 10.9 Eosinophils % 5.4 Basophils % 0.4 Nucleated RBC % 0.0 Absolute Neutrophils 5.10 Absolute Lymphocytes 2.90 Absolute Monocytes 1.05 H Absolute Eosinophils 0.52 Absolute Basophils 0.04 Sodium 143 Potassium 3.7 Chloride 104 Carbon Dioxide 33.2 H Anion Gap 5.8 BUN 29 H Creatinine 0.9 Est GFR (CKD-EPI 2020) 79.35 Glucose 153 H Calcium 8.9 Magnesium 2.3 Total Bilirubin 0.3 AST 13 L ALT 19 Alkaline Phosphatase 114 Troponin I < 50 Total Protein 6.9 Albumin 3.3 L COVID-19 Source Nasal/Nares SARS-CoV-2 (PCR) Negative 11/23/22 13:50 WBC RBC Hgb Hct MCV MCH MCHC RDW Plt Count MPV Immature Gran % Neutrophils % Lymphocytes % Monocytes % Eosinophils % Basophils % Nucleated RBC % Absolute Neutrophils Absolute Lymphocytes Absolute Monocytes Absolute Eosinophils Absolute Basophils Sodium Potassium Chloride Carbon Dioxide Anion Gap BUN Creatinine Est GFR (CKD-EPI 2020) Glucose Calcium Magnesium Total Bilirubin AST ALT Alkaline Phosphatase Troponin I < 50 Total Protein Albumin COVID-19 Source SARS-CoV-2 (PCR) Last Vital Signs Temp 37.2 C 11/23/22 10:17 Pulse 67 11/23/22 13:38 Resp 19 11/23/22 13:40 BP 98/59 L 11/23/22 13:38 Pulse Ox 95 11/23/22 13:40 Time Spent Time spent with Patient: 40-54 minutes Time was spent: preparing to see the patient(eg.review tests), obtaining and/or reviewing separately otained hiistory, ordering medications,tests, procedures, referring, communicating with other health emergency care attendant and indepentently interpreting results
[2022-11-23 16:03] LABS: *AMPHETAMINES SCREEN URINE Negative (Negative); *BARBITURATES SCREEN URINE Negative (Negative); *BENZODIAZEPINES SCREEN URINE Negative (Negative); Cannabinoids THC Negative (Negative); Cocaine Screen,Urine Positive (Negative); METHADONE URINE SCREEN Positive (Negative); OPIATES URINE SCREEN Negative (Negative)
[2022-11-23 16:04] LABS: Tricyclic Antidepressants Negative (Negative)
[2022-11-23] MEDS: Gabapentin 600 MG TAB PO (16:59)
[2022-11-23] MEDS: Acetaminophen 500 MG TAB PO (16:59)
[2022-11-23] MEDS: Ketorolac 30 MG/ML VIAL IVP (17:00)
[2022-11-23] MEDS: Normal Saline Flush 10 ML SYR IVP (17:00)
[2022-11-23] MEDS: Nicotine 14 MG/24 HR PATCH TD (17:02)
[2022-11-23] MEDS: Potassium Chloride 20 MEQ TABCR PO (20:24)
[2022-11-23] MEDS: Gabapentin 600 MG TAB 1200 MG PO (20:25)
[2022-11-23] MEDS: Atorvastatin 40 MG TAB 80 MG PO (20:25)
[2022-11-23] MEDS: Pantoprazole 40 MG TABCR PO (20:25)
[2022-11-23] MEDS: levETIRAcetam 500 MG TAB PO (20:25)
[2022-11-23] MEDS: Colchicine 0.6 MG TAB PO (20:26)
[2022-11-23] MEDS: Budesonide/Formoterol 80/4.5 6.9 GM 60 PUFF INH IH (20:35)
[2022-11-24] VITALS (19 sets, daily range): BP systolic 87–105; BP diastolic 46–65; PULSE 68–86; RESP 13–24; TEMP 36–37.1; O2SAT 92–98; BMI 15.5
[2022-11-24] MEDS: HYDROmorphone 2 MG/ML VIAL 1 MG IVP ×6 (01:49→22:49)
[2022-11-24] MEDS: Ketorolac 30 MG/ML VIAL IVP ×2 (02:45→19:49)
[2022-11-24 07:05] LABS: Anion Gap 5.7 mmol/L (3-11); BUN 24 mg/dL (7-18); CO2 31.3 mmol/L (21.0-32.0); CREATININE 0.8 mg/dL (0.55-1.02); Calcium 8.8 mg/dL (8.5-10.1); Chloride 108 mmol/L (98-107); Glucose 81 mg/dL (74-106); Potassium 4.2 mmol/L (3.5-5.1); Sodium 145 mmol/L (136-145)
[2022-11-24] MEDS: Colchicine 0.6 MG TAB PO ×2 (08:31→19:49)
[2022-11-24] MEDS: Citalopram 20 MG TAB PO (08:31)
[2022-11-24] MEDS: Torsemide 20 MG TAB 40 MG PO (08:32)
[2022-11-24] MEDS: levETIRAcetam 500 MG TAB PO ×2 (08:32→19:49)
[2022-11-24] MEDS: Gabapentin 600 MG TAB PO ×2 (08:32→11:43)
[2022-11-24] MEDS: Metoprolol CR 25 MG TABCR PO (08:32)
[2022-11-24] MEDS: Pantoprazole 40 MG TABCR PO ×2 (08:32→19:49)
[2022-11-24] MEDS: Acetaminophen 500 MG TAB PO ×4 (08:32→19:50)
[2022-11-24] MEDS: Potassium Chloride 20 MEQ TABCR PO ×2 (08:32→19:50)
[2022-11-24] MEDS: Empaglifozin 10 MG TAB PO (08:33)
[2022-11-24] MEDS: Nicotine 14 MG/24 HR PATCH TD (08:34)
[2022-11-24] MEDS: Methadone Liquid 10 MG/ML 120 MG PO (09:21)
--- NOTE | 2022-11-24 09:30 | PDOC.CMIN ---
- If Service Date Differs Date of service: 11/24/22 Time of Service: 09:31 Care Management Initial Assess REASON FOR HOSPITALIZATION:: Fracture right tibia/fibula PAST MEDICAL HISTORY/PAST SURGICAL HISTORY:: All Active Problems . Syncope (Chronic). Closed fracture of right fibula and tibia (Acute). Closed fracture of shaft of right tibia and fibula (Acute 11/23/22). Dizziness (Acute). Syncopal episodes (Chronic). Vomiting (Acute). QT prolongation (Acute). Nonspecific paroxysmal spell (Acute). Episode of unresponsiveness (Acute). Chronic systolic CHF (congestive heart failure) (Chronic). Ischemic cardiomyopathy (Acute). Obstructive sleep apnea (Chronic). Hallucinations (Acute). Chronic respiratory failure with hypoxia (Chronic). Fracture of finger, left (Acute). Syncopal episodes (Chronic). Acute hypokalemia (Acute). Observed seizure-like activity (Acute). Opioid dependence on agonist therapy (Acute). Leg wound, left (Acute). Facial palsy (Acute). Pulmonary HTN (Acute). Heart failure (Acute). 09/02/21 with [place] low EF. Non-STEMI (non-ST elevated myocardial infarction) (Acute). 09/02/21. Vertigo (Acute). GERD (gastroesophageal reflux disease) (Chronic). Essential hypertension (Acute). Asthma (Chronic). Depression (Chronic). PTSD (post-traumatic stress disorder) (Acute). Tobacco abuse disorder (Acute). Hypokalemia (Acute). Chronic gout (Acute). Hyperlipidemia (Acute). Diabetic peripheral neuropathy (Acute). Type 2 diabetes mellitus (Chronic). Medical History . COVID. was vaccinated but contracted Covid 06/22. History of gastrointestinal ulcer. Surgical History . H/O bone graft. left knee. H/O shoulder surgery. x4 and ending with a full replacement. H/O total hysterectomy. History of appendectomy. History of colonoscopy. History of esophagogastroduodenoscopy (EGD). gastritis with gastric ulcers. Previous section. x4 delivery PREVIOUS FUNCTIONAL STATUS/SOCIAL/FAMILY SUPPORTS:: Aracelis lives in [place] with 3 of her 4 children, however she has been staying with her son Katarina in [place] for the past month or so. She is unemployed and on SSDI due to health issues. Aracelis does not drive and uses [facility] for transportation. She had [facility] HH RN and VERIFICATION MANAGER services but those have been discontinued as she is not staying at her home currently. She also had disability hearing officer and assisted living services through [facility]. CURRENT FUNCTIONAL STATUS:: Aracelis was sitting up in bed when CM met with her. She is scheduled for surgery at approximately 1 pm today. Aracelis shared that she has been staying with her son Katarina in [place] at the advice of her [facility] providers. She stated that [place] is remote and should she have a major cardiac issue, it may take EMS too long to reach her. She stated that she needs to be closer to a hospital. She informed CM that she is trying to find an apartment closer to [facility], preferably in [place]. She also requested assistance with obtaining a new cell phone as hers is broken. CM offered to send a referral to [facility] which indicated she appreciated. ADVANCE DIRECTIVES:: none on file at [facility] Has patient been provided with info about the portal/API?: Yes Did the patient sign up for the portal?: No CODE STATUS:: Full Code INSURANCE COVERAGE / FINANCIAL ISSUES:: Medicare. Medicaid CURRENT HOME/COMMUNITY SERVICES/EQUIPMENT:: Aracelis has [facility] services for RN, PT, OT and VERIFICATION MANAGER though [facility] as well as. assisted living and disability hearing officer support through [facility]. She has a cane and a walker which she uses as needed. PRIMARY CARE PHYSICIAN:: Valentin Parekh POTENTIAL DISCHARGE NEEDS:: Follow up with PCP and plan of care as prescribed PATIENT/FAMILY EDUCATION NEEDS:: Review of discharge instructions, limitations, activity, follow up plan, discuss Ask Me [employer]. TRANSPORTATION:: via private vehivle with family PLAN:: Aracelis will likely be discharged home, possibly with new home health services, when medically cleared by proivider. She will follow up with orthopedics as well as her PCP and discharge plan of care. CM will follow and assess for ongoimg discharge concerns.
--- NOTE | 2022-11-24 10:20 | ANES.PREOP_ITS ---
General Info Date of Service Date Performed: 11/24/22 Height: 5 ft 4 in Weight: 41.141 kg Body Mass Index (BMI): 15.5 Surgical Procedure: Operation Date: 11/24/22 12:55 Proposed Procedure Side Surgeon p Tibial Rodding/IM Nailing Right Stevenson Wisdom MD Meds Allergies and Home Medications Allergies Allergy/AdvReac Type Severity Reaction Status Date / Time Bleach (Sodium Hypochlorite) Allergy Unknown Verified 11/23/22 10:21 mushroom Allergy Unknown Verified 11/23/22 10:21 Penicillins Allergy Unknown Verified 11/23/22 10:21 tramadol Allergy Unknown Verified 11/23/22 10:21 mold Allergy Verified 11/23/22 10:21 trazodone Allergy Unverified 11/23/22 10:21 Home Medication Medication Instructions Recorded acetaminophen 325 mg capsule 975 mg PO Q8H PRN 10/18/21 albuterol sulfate 2.5 mg/3 mL 2.5 mg inhalation Q6H PRN 10/18/21 (0.083 %) solution for nebulization atorvastatin 80 mg tablet (Lipitor) 80 mg PO DAILY 10/18/21 clopidogrel 75 mg tablet (Plavix) 75 mg PO DAILY 10/18/21 ferrous sulfate 325 mg (65 mg 325 mg PO Q OTHER DAY 10/18/21 iron) tablet,delayed release insulin degludec 200 unit/mL (3 120 unit subcut DAILY 10/18/21 mL) subcutaneous pen (Tresiba FlexTouch U-200 insulin) insulin lispro 100 unit/mL 10 unit subcut QID 10/18/21 subcutaneous pen (Humalog KwikPen (U-100) Insulin) magnesium oxide 400 mg (241.3 mg 400 mg PO BID 10/18/21 magnesium) tablet (MagOx) nitroglycerin 0.4 mg sublingual 0.4 mg sublingual Q5M PRN 10/18/21 tablet (Nitrostat) methadone 10 mg/5 mL oral solution 120 mg PO DAILY 03/15/22 carboxymethylcellulose sodium 0.5 1 drp OU QID #50 ea 08/15/22 % eye drops in a dropperette (Refresh Plus) gabapentin 600 mg tablet 600 mg PO DIRECTED #20 tabs 08/15/22 albuterol sulfate 90 mcg/actuation 2 inh inhalation Q3H PRN PRN 10/29/22 aerosol inhaler (ProAir HFA) Shortness Of Breath Or Wheezing aspirin 81 mg tablet,delayed 81 mg PO DAILY 10/29/22 release (Adult Low Dose Aspirin) benzonatate 100 mg capsule 100 mg PO TID PRN PRN Cough 10/29/22 cetirizine 10 mg tablet (Zyrtec) 10 mg PO DAILY PRN PRN Allergy 10/29/22 Symptoms citalopram 20 mg tablet (Celexa) 20 mg PO DAILY 10/29/22 colchicine 0.6 mg tablet (Colcrys) 0.6 mg PO BID 10/29/22 empagliflozin 10 mg tablet 10 mg PO DAILY 10/29/22 (Jardiance) fluticasone propionate 45 2 inh inhalation BID 10/29/22 mcg-salmeterol 21 mcg/actuation HFA inhaler (Advair HFA) folic acid 1 mg tablet 1 mg PO DAILY 10/29/22 liraglutide 0.6 mg/0.1 mL (18 mg/3 0.6 mg subcut DAILY 10/29/22 mL) subcutaneous pen injector (Victoza 3-Tanmay) pantoprazole 40 mg tablet,delayed 40 mg PO BID 10/29/22 release (Protonix) potassium chloride 10 mEq 10 meq PO DAILY 10/29/22 capsule,extended release torsemide 20 mg tablet 40 mg PO DAILY 10/29/22 levetiracetam 500 mg tablet 500 mg PO BID #60 tabs 10/31/22 naloxone 4 mg/actuation nasal 4 mg intranasal Q2-3M PRN #2 ea 10/31/22 spray (Narcan) potassium chloride 20 mEq 20 meq PO BID #10 tabs 11/13/22 tablet,extended release(part/cryst) metoprolol succinate 25 mg 25 mg PO DAILY 11/23/22 tablet,extended release 24 hr (Toprol XL) Current Visit Medications: Current Medications Generic Name Dose Route Start Last Admin Trade Name Freq PRN Reason Stop Dose Admin Acetaminophen 500 mg 11/23/22 17:00 11/24/22 08:32 Acetaminophen 500 Mg Tab PO 500 mg QID ALAN Administration Albuterol Sulfate 2.5 mg 11/23/22 12:54 Albuterol 2.5 Mg/3 Ml Inh Soln Vial UPD Q2H PRN PRN Atorvastatin Calcium 80 mg 11/23/22 20:00 11/23/22 20:25 Atorvastatin 40 Mg Tab PO 80 mg QPM ALAN Administration Budesonide/Formoterol Fumarate 2 puff 11/23/22 20:00 11/23/22 20:35 Budesonide/Formoterol 80/4.5 6.9 Gm 60 Puff Inh IH 1 inh BID ALAN Administration Cetirizine HCl 10 mg 11/23/22 12:54 Cetirizine 10 Mg Tab PO DAILY PRN PRN Allergy Symptoms Citalopram Hydrobromide 20 mg 11/24/22 08:30 11/24/22 08:31 Citalopram 20 Mg Tab PO 20 mg DAILY ALAN Administration Colchicine 0.6 mg 11/23/22 20:00 11/24/22 08:31 Colchicine 0.6 Mg Tab PO 0.6 mg BID ALAN Administration Dextrose 0 gm 11/23/22 13:02 Glucose Oral Gel 15 Gm/37.5 Gm Tube PO DIRECTED PRN Dextrose/Water 0 gm 11/23/22 13:02 Dextrose 50%-Water 25 Gm/50 Ml Syr IVP DIRECTED PRN Dimethicone/Zinc Oxide 0 gm 11/23/22 12:48 Meche Protect Cream 142 Gm Tube TP PRN PRN Empagliflozin 10 mg 11/24/22 08:30 11/24/22 08:33 Empaglifozin 10 Mg Tab PO 10 mg DAILY ALAN Administration Gabapentin 600 mg 11/23/22 14:30 11/24/22 08:32 Gabapentin 600 Mg Tab PO 600 mg BID@0800,1200 ALAN Administration Gabapentin 1,200 mg 11/23/22 20:00 11/23/22 20:25 Gabapentin 600 Mg Tab PO 1,200 mg QPM ALAN Administration Hydromorphone HCl 1 mg 11/24/22 08:28 Hydromorphone 2 Mg/Ml Vial IVP Q2H PRN PRN Sodium Chloride 500 mls @ 0 mls/hr 11/23/22 10:41 Saline 500ml Bag IV PRN PRN As Directed IV Miscellaneous Supplies 1 each 11/23/22 10:45 Iv Access IV DIRECTED [facility] Insulin Aspart 0 units 11/23/22 17:00 11/24/22 09:15 Insulin Aspart 300 Units/3 Ml Pen SC Not Given 0800,1200,1700 [facility] Protocol Ketorolac Tromethamine 30 mg 11/23/22 16:45 11/24/22 02:45 Ketorolac 30 Mg/Ml Vial IVP 11/28/22 16:44 30 mg Q6H PRN PRN Administration Levetiracetam 500 mg 11/23/22 20:00 11/24/22 08:32 Levetiracetam 500 Mg Tab PO 500 mg BID ALAN Administration Magnesium Hydroxide 30 ml 11/23/22 12:54 Milk Of Magnesia 30 Ml Cup PO DAILY PRN PRN Methadone HCl 120 mg 11/24/22 08:30 11/24/22 09:21 Methadone Liquid 10 Mg/Ml PO 120 mg DAILY ALAN Administration Metoprolol Succinate 25 mg 11/24/22 08:30 11/24/22 08:32 Metoprolol Cr 25 Mg Tabcr PO 25 mg DAILY ALAN Administration Nicotine 14 mg 11/23/22 17:00 11/24/22 08:34 Nicotine 14 Mg/24 Hr Patch TD 14 mg DAILY ALAN Administration Pantoprazole Sodium 40 mg 11/23/22 20:00 11/24/22 08:32 Pantoprazole 40 Mg Tabcr PO 40 mg BID ALAN Administration Patient's Own 0.6 each 11/24/22 08:30 11/24/22 09:16 Medication (Victoza SC Not Given 0.6 Mg/0.1 Ml Pen) DAILY ALAN Polyethylene Glycol 17 gm 11/23/22 12:54 Polyethylene Glycol 3350 17 Gm Packet PO DAILY PRN PRN Constipation Potassium Chloride 20 meq 11/23/22 20:00 11/24/22 08:32 Potassium Chloride 20 Meq Tabcr PO 20 meq BID ALAN Administration Prochlorperazine Edisylate 10 mg 11/23/22 17:45 Prochlorperazine 10 Mg/2 Ml Vial IVP Q4H PRN PRN Sodium Chloride 0 ml 11/23/22 10:41 11/23/22 17:00 Normal Saline Flush 10 Ml Syr IVP 10 ml PRN PRN Administration Torsemide 40 mg 11/24/22 08:30 11/24/22 08:32 Torsemide 20 Mg Tab PO 40 mg DAILY ALAN Administration PFSH Active Problems Active Problems: Problem Status Onset Code Syncope R55 Closed fracture of right fibula and tibia S82.201A, S82.401A Closed fracture of shaft of right tibia and fibula 11/23/22 S82.201A, S82.401A Dizziness R42 Syncopal episodes R55 Vomiting R11.10 QT prolongation R94.31 Nonspecific paroxysmal spell R40.4 Episode of unresponsiveness R41.89 Chronic systolic CHF (congestive heart failure) I50.22 Ischemic cardiomyopathy I25.5 Obstructive sleep apnea G47.33 Hallucinations R44.3 Chronic respiratory failure with hypoxia J96.11 Fracture of finger, left S62.609A Syncopal episodes R55 Acute hypokalemia E87.6 Observed seizure-like activity R56.9 Opioid dependence on agonist therapy F11.20 Leg wound, left S81.802A 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 Pulmonary HTN I27.20 Heart failure I50.9 Non-STEMI (non-ST elevated myocardial infarction) I21.4 Vertigo R42 GERD (gastroesophageal reflux disease) K21.9 Essential hypertension I10 Asthma J45.909 Depression F32.A PTSD (post-traumatic stress disorder) F43.10 Tobacco abuse disorder Z72.0 Hypokalemia E87.6 Chronic gout [id number] Hyperlipidemia E78.5 Diabetic peripheral neuropathy E11.42 Type 2 diabetes mellitus E11.9 Medical History Medical History COVID was vaccinated but contracted Covid 06/22 History of gastrointestinal ulcer Surgical History Surgical History H/O bone graft left knee H/O shoulder surgery x4 and ending with a full replacement H/O total hysterectomy History of appendectomy History of colonoscopy History of esophagogastroduodenoscopy (EGD) gastritis with gastric ulcers Previous section x4 delivery Tobacco Smoking/Tobacco Use Status: Current every day Tobacco Type: cigarettes Alcohol Alcohol Intake: current Alcohol intake frequency: holidays/special occasions only Alcohol type: beer Substance Use Substance use: Never Substance use type: does not use Vital Signs and Lab Results Vital Signs Most Recent Vital Signs in EMR: Most Recent Vital Signs Temp Pulse Resp BP Pulse Ox 36.0 C L 68 14 91/55 L 97 11/24/22 07:47 11/24/22 07:47 11/24/22 07:47 11/24/22 07:47 11/24/22 07:47 Point of Care Results Point of Care Results: Finger Stick Blood Glucose 75 11/24/22 09:15 Lab Results 11/23/22 10:45 11/24/22 06:30 Blood Type / Crossmatch: No Data to Display Complete Blood Count: White Blood Count 9.65 10^3/uL (4.4-10.8) 11/23/22 10:45 Red Blood Count 4.47 10^6/uL (3.93-5.22) 11/23/22 10:45 Hemoglobin 13.3 g/dL (11.2-15.7) 11/23/22 10:45 Hematocrit 40.4 % (36.0-46.0) 11/23/22 10:45 Platelet Count 359 10^3/uL (130-400) 11/23/22 10:45 Complete Metabolic Panel: Sodium 145 mmol/L (136-145) 11/24/22 06:30 Potassium 4.2 mmol/L (3.5-5.1) 11/24/22 06:30 Chloride 108 mmol/L (98-107) H 11/24/22 06:30 Carbon Dioxide 31.3 mmol/L (21.0-32.0) 11/24/22 06:30 BUN 24 mg/dL (7-18) H 11/24/22 06:30 Creatinine 0.8 mg/dL (0.55-1.02) 11/24/22 06:30 Est GFR (CKD-EPI 2020) 91.40 (mL/min/1.73m2) 11/24/22 06:30 Magnesium 2.3 mg/dL (1.8-2.4) 11/23/22 10:45 Calcium 8.8 mg/dL (8.5-10.1) 11/24/22 06:30 Albumin 3.3 g/dL (3.4-5.0) L 11/23/22 10:45 Glucose 81 mg/dL (74-106) 11/24/22 06:30 Hemoglobin A1c 6.3 % (<5.7) H 10/29/22 05:15 Liver Function Panel: Alanine Aminotransferase (ALT/SGPT) 19 U/L (14-59) 11/23/22 10: 45 Aspartate Amino Transf (AST/SGOT) 13 U/L (15-37) L 11/23/22 10: 45 Coagulation Panel: No Data to Display Cardiac Panel: Troponin I < 50 ng/L (<or=60) 11/23/22 NT-Pro-B Natriuret Pep 309 pg/mL (<300) H 11/20/22 Creatine Kinase 72 U/L (26-192) 10/29/22 Arterial Blood Gas: No Data to Display Venous Blood Gas: Venous Blood pH 7.47 (7.31-7.41) H 10/28/22 19:50 Venous Blood Partial Pressure O2 49 mmHg 10/28/22 19:50 Venous Blood Partial Pressure CO2 48 mmHg (41-51) 10/28/22 19:5 0 Venous Blood Oxygen Saturation 88 % 10/28/22 19:50 Venous Blood HCO3 35 mmol/L (23-28) H 10/28/22 19:50 Venous Blood Base Excess 11 mmol/L (-2-3) H 10/28/22 19:50 Venous Blood Total Carbon Dioxide 31 mmol/L (24-29) H 10/28/22 19:50 Pancreas Panel: No Data to Display Thyroid Panel: No Data to Display Infectious Disease: Coronavirus (COVID-19)(PCR) Negative (Negative) 11/23/22 11:05 Coronavirus 2019 Source Nasal/Nares 11/23/22 11:05 Influenza Virus Type A (PCR) Negative (Negative) 11/20/22 20:4 5 Influenza Virus Type B (PCR) Negative (Negative) 11/20/22 20:4 5 Respiratory Syncytial Virus (PCR) Negative (Negative) 11/20/22 20:45 Blood Cultures: No Data to Display Toxicology Panel: Urine Amphetamines Screen Negative (Negative) 11/23/22 15:05 Urine Benzodiazepines Screen Negative (Negative) 11/23/22 15:0 5 Urine Barbiturates Screen Negative (Negative) 11/23/22 15:05 Urine Cocaine Screen Positive (Negative) A 11/23/22 15:05 Urine Methadone Screen Positive (Negative) A 11/23/22 15:05 Urine Opiates Screen Negative (Negative) 11/23/22 15:05 Ur Tricyclic Antidepressants Screen Negative (Negative) 15:05 Ur Tetrahydrocannabinol (THC) Scrn Negative (Negative) 3 15:05 Panel: Serum HCG, Qualitative Negative 11/20/22 17:13 Imaging and Studies Imaging and Studies Study information below may be from another EMR and interpreted by another provider. Please see original notes in EMR for more complete details. EKG Summary: Conclusion Sinus rhythm...normal P axis, V-rate 60- 99 Anteroseptal infarct, old...Q >40mS, V1-V2 Prolonged QT interval...QTc >510mS Echocardiogram Summary: 10/19/2022: LVEF 39%, LV severely dilated, mod MR, trace TR, Pulmonary Function Summary: 10/26/2022: [facility] PFT found normal FEV1, FVC, and FEV1/FVC. No significant change with bronchodilator administration. TLC normal. Impression was normal lung function. Anesthesia Assessment and Plan Anesthesia History Personal History: No History of Anesthesia Complications Family History: No Family History of Anesthesia Complications Exercise Tolerance Exercise Tolerance: Unknown Pertinent Negatives Pertinent Negatives: No Symptoms of GERD Cardiac & Pulmonary Exam Cardiac Exam: Normal S1/S2 Heart Sounds Pulmonary Exam: Clear Bilateral Breath Sounds Implantable Cardiac Device Does patient have a Pacemaker or an ICD?: No Airway Exam Known Difficult Airway: No Mallampati Class: 3 Mouth Opening: Normal (> 3cm) Thyromental Distance: Greater than 3 cm Neck Range of Motion: Full ROM Neck Circumference: Normal Teeth Condition: Generalized Poor Dentition ASA Classification ASA Score: ASA 3 Emergency Case?: No NPO Status NPO Status: NPO Clears >2 hours, Solids >8 hours Status Status: History of Hysterectomy Anesthesia Plan Resuscitation Status: Full Code Anesthesia Technique: General Anesthesia Airway Planned: Endotracheal Tube Monitors Used: Standard Monitors Preoperative Comments:: 47 yo female for Tib/fib fracture Ischemic cardiomyopathy/HFrEF, COPD, recent syncopal events of unknown origin, Qtc prolongation (most recent 532). [place] [facility] pain: flash pulmonary edema, ischemic CM, IABP placed and RCA stented. 05/13/2022: ECHO 31% EF [place] [facility] Persistent chest pain with exertion: Conclusions: Obstructive disease RCA, successful stent insertion of the mid RCA...distal RCA...proximal RCA. Recommended for her High bleeding risk score at time of PCI to continue DAPT for 6 months is overt bleeding occured, otherwise 1 year. 05/19/2022 followup with EP: Want three months of optimization on GDMT post revascularization before will consider ICD. 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 Some difficulty swallowing. CTA and MRI normal. 09/17/2022: Telehealth with Cardiology. Home with the flu. Reports continuing syncopal episodes. 10/18/2022: To Cardiology clinic for recurrent syncopal events, reports recent diagnosis of RAQUEL from [facility] sleep study, recent PFTs (continuing on advair and proair). Reports increasing abdominal distension. Admitted to cardiology service. 10/20/2022: TTE 39%, following with [facility], symptomatic inpatient but only one PVC witnessed. QTC >520: avoid all qt prolongating agents. 10/28/2022: Telehealth cardiology: recommended wearing lifevest. Multiple syncopals and falls. [place] [facility] [facility] ED due to falls (10/26) unable to be transported to [facility] ED (10/28). Hypokalemic, QTC prolongation, BGL normal. 11/23/2022: To [facility] for trauma due to syncopal. See [facility] record. states taked NTG at least weekly, has been off her plavix for 2 days. currently in a sig amount of pain.
[2022-11-24] MEDS: Budesonide/Formoterol 80/4.5 6.9 GM 60 PUFF INH IH ×2 (10:30→19:49)
--- NOTE | 2022-11-24 10:39 | CHAPLAIN ---
Aracelis was in bed, winching when she moved. Her right leg is bandaged and she has ice on it. Aracelis explained that she is going to surgery soon. She was experiencing pain each time she moved. She asked for more water in her little paper cup. She's using a stick sponge to sip water. I will continue to visit.
--- NOTE | 2022-11-24 13:00 | DI.RAD_ITS ---
Exam(s) XR TIB/FIB RT EXAM: XR TIB/FIB RT CLINICAL HISTORY: Closed fracture of right fibula and tibia TECHNIQUE: 2D and realtime digital imaging was performed. CONTRAST MATERIAL: Refer to procedure report. COMPARISON: CR XR TIB/FIB RT from 11/23/2022 FINDINGS: Fluoroscopy was provided for Dr. Wisdom during the performance of a reduction and internal fixatio n of the tibial fracture. Please refer to the procedure report for complete details. Ka,r=4.75 mGy IMPRESSION: RADIATION DOSE DELIVERED:
--- NOTE | 2022-11-24 13:09 | PGE_ITS ---
Date of Service Date of service: 11/24/22 Time of Service: 12:30 Assessment and Plan Assessment and plan (1) Closed fracture of shaft of right tibia and fibula: Status: Acute Assessment and plan: Aracelis is a 47-year-old who has a fracture of her right tib-fib. Given this fracture pattern I recommend fixation. This was discussed her yesterday by Dr. Sanchez. I will be assisting today and starting the case and potentially finishing it depending on Dr. Sanchez's schedule. I reviewed the surgery with her. I discussed the technical features. I reviewed the risk to include b leeding, infection, pain, stiffness, malunion, nonunion, malrotation, malangulation, damage nerves and vessels, damage to muscle tendons, hardware prominence, heart failure, blood clot. There also are significant risk with anesthesia although we feel that they are mitigated. Her record has been extensively reviewed by anesthesia and medicine. Despite this, she elects to proceed. She is aware that it may be myself and or Dr. Sanchez during the procedure and is agreeable to that. Subjective Subjective Interval history since last seen: Aracelis continues have pain and cramping about her right leg. She was initially seen by Dr. Sanchez yesterday. She has a planned surgery for the right leg today. Due to scheduling issues I offered my assistance to help with the treatment of her right lower extremity and was here today to meet with Aracelis. She continues to complain of pain. She denies any new numbness or tingling. She does have significant medical history which has been reviewed by the medical team as well as anesthesia team. She has had ongoing issues with syncope as 1 of many other medical comorbidities. As for the right leg, she denies any preinjury pain. No current chest pain or shortness of breath. No fevers no chills. She does not feel that the 1 mg of hydromorphone is doing very much. Exam Extrem Other: Evaluation of the right lower extremity shows an externally rotated foot relation to the knee. There is no skin defect. There is notable swelling. She is able demonstrate some active toe extension and toe flexion. Sensation intact light touch over the deep and superficial peroneal nerve and tibial nerve. No pain to palpation of the knee, patella, or femur. Objective Last Vital Signs Temp 36 C L 11/24/22 11:00 Pulse 72 11/24/22 12:58 Resp 18 11/24/22 12:58 BP 90/50 L 11/24/22 12:58 Pulse Ox 96 11/24/22 12:58 Laboratory Results - last 24 hr 11/23/22 11/23/22 11/24/22 13:50 15:05 06:30 Sodium 145 Potassium 4.2 Chloride 108 H Carbon Dioxide 31.3 Anion Gap 5.7 BUN 24 H Creatinine 0.8 Est GFR (CKD-EPI 2020) 91.40 Glucose 81 Calcium 8.8 Troponin I < 50 Urine Opiates Screen Negative Urine Methadone Screen Positive A Ur Barbiturates Screen Negative Ur Tricyclics Screen Negative Ur Amphetamines Screen Negative U Benzodiazepines Scrn Negative Urine Cocaine Screen Positive A Ur THC Screen Negative Objective Narrative Objective Narrative: X-ray of the right tibia and fibula shows a short oblique fracture about the distal aspect of the midshaft of the right tibia with proximal fibula fracture. No comminution. No distal or proximal extension. Time Spent with Patient Time Spent with Patient: 25-34 minutes Time was spent: obtaining and/or reviewing separately otained hiistory, ordering medications,tests, procedures, counseling the patient and care coordination
--- NOTE | 2022-11-24 13:38 | W.DIABETESNO ---
Date of service: 11/24/22 Time of Service: 13:38 Diabetes Note Reason for Visit: dm2 NOTE: DM education consult noted. Not warranted at this time as with A1C of 6.3% last month. Current meds and lifestyle managing Dm2 well. Admitted with fractures to right fibula/tibula s/p fall. Hx of polysubstance abuse, CHF, DM2. Home DM meds: 120 u degludec q hs, 10 mg jardiance qd, 10 u lispro TID, victoza. BMI indicates class 1 obesity. Will monitor po intake/labs and be available prn. Time Spent in Nutritional Counseling and Treatment: 0
[2022-11-24] MEDS: Lactated Ringers 1,000 ML 30 ML IV (13:50)
--- NOTE | 2022-11-24 14:12 | RESPIRATORY ---
RT spoke with patient concerning history of RAQUEL listed in chart. Patient stated she's been trying to get a machine for over a year and has been unsuccessful. In following up with Dolores Melendez, the order was sent to the [facility] which was unable to contact patient which is turn cancelled the order. RT discussed with DME what's needed to get an new order started and was instructed the DME needs a new RX along with Office notes w/i 6mnths sent to them. Patient is interested in using a device at night to assist with her desaturations, CPAP settings of 6-16 cmH2O were obatined from Dr Melendez's office. [facility] does not have devices which auto-titrate, Dr mobley gave RT setting of 6 cm H2O to trial on patient while hospitalized. RT will trial and fit to a mask on CPAP pressure of 6cm H2O on Sheila and increase if needed.
[2022-11-24] MEDS: ceFAZolin 2 GM/50 ML BAG IVPB (14:18)
--- NOTE | 2022-11-24 16:38 | ROE_ITS ---
Date of service: 11/24/22 Time of Service: 15:45 Operative Note Operative Note DATE OF PROCEDURE: 11/24/22 PRE-OP DIAGNOSIS: Right Tibia and Fibula Fracture POST-OP DIAGNOSIS: same PROCEDURE: Right Intramedullary Fixation of Tibia Fracture SURGEON: Stevenson Wisdom DIE LAY OUT WORKER: Maryann Garcia ANESTHESIA TYPE: General LMA/ETT Refer to Anesthesia Record ESTIMATED BLOOD LOSS: 150 PATHOLOGY: none sent TOURNIQUET TIME: 0 COMPLICATIONS: None Patient was transported to: PACU Patient's condition: stable Implants: Depuy-Synthes Tibial Nail Advanced 10mm x 330mm Indications: Aracelis is a 47 year old who has a history of syncope. She presented to the Emergency Department after a syncopal fall with a twisting injury to her right leg. X-rays confirmed the diagnosis of a displaced tibial shaft fracture of the right tibia along with proximal and distal fibular fractures. She was initially seen by my partner, Dr. Sanchez, and agreed to proceed with surgery. Due to timing and availability, I was able to assist to expedite her care. I met with her in the hospital prior to the surgery. I reviewed the possible treatment options and given the fracture, I recommended operative fixation. I discussed the technical details of the surgery. I reviewed the risks such as bleeding, infection, pain, stiffness, malunion, nonunion, hardware prominence, hardware faiilure, malrotation, damage to nerves and vessels, blood clot. Despite these risks, she agreed to proceed. Findings: There was a fracture of the tibia which was reduced with traction and internal rotation and external manipulation. The reduction was held with a large [id number] clamp. A tibial nail was placed using a semiextended approach. Procedure Description: Aracelis was greeted in the preoperative area. Consent was previously reviewed and signed. Once in the operating room, anesthesia was administered. The patient was transferred to the fracture table in the supine position. She was positioned in the supine position with the operative side placed onto a bone foam ramp. All bony prominences were well padded. Arms were placed out to the side, padded, and secured. A single dose of TXA, 1 gram, was then administered IV. Prophylactic antibiotics, Cefazolin 2 grams, was given for prophylactic antibiotics. A timeout was performed for safe surgery. The right leg was prepped with Chloraprep. The leg was draped with a stockinette and U drapes. An incision was then made over the lateral aspect of the knee. This was taken down from the midpoint of patella at his lateral margin following the lateral aspect of the patellar tendon down to the tibial tubercle. The skin was incised sharply. The retinacular tissues were then incised sharply as well. The synovium underlying this was visualized and bluntly dissected off of the anterior, proximal tibia. The patella was mobilized medially allowing access to the central portion of the proximal tibia. A starting position in line with the axis of the tibia, approximate the level of the lateral spine, and at the ventral edge of the proximal tibia was made with the awl. X-ray in both the AP and lateral views were used to confirm this positioning. The awl was then advanced manually into the proximal tibia. This was once again confirmed to be in good position on the AP and lateral views. The ball-tipped guidewire was then inserted through the awl and into the proximal tibia. A bend in the guidewire was placed prior to insertion allowing it to make the turn off the back of the tibia. Reduction maneuver was then performed of the fracture. Gentle traction and some internal rotation was used to grossly reduce the fracture fragments. Focus was made sure to restore normal rotational alignment of the leg in length. A clamp was used to help secure and hold these pieces in appropriate position. The ball-tipped guidewire was then advanced across the fracture site into the distal tibia. It was confirmed to be in appropriate positions on both the AP and the lateral. This was then measured. Using a tissue protector to protect proximal tissues, the tibia was reamed from 8.5 mm to 11.5mm. The 10mm x 330mm Synthes tibial nail Advanced was opened. The nail was assembled to the aiming arm on the back table and confirmed to be aligned with the trochars for screw insertion. Using manual force the nail was advanced into the tibia. A few light mallet blows advanced the nail through the proximal tibia and down into the final seated position of the distal tibia, approximately at the level of the physeal scar. AP and lateral x-rays of both the knee and the ankle and the entire tibia was performed. They show appropriate positioning of the tibial nail. The proximal aspect of the fibula fracture appeared to be anatomically aligned. There was some comminution of the distal fibula which made visualization of the posterior tibia difficult. It was inspected on multiple different angles and determined to be slightly comminuted but not displaced the fibula with no posterior malleolar fracture. Then, starting distally, perfect circles were obtained for each screw. Distal locking screws were placed. These were inserted to be bicortical but prominence was attempted to be minimized as much as possible without compromising stability and screw purchase. Attention was then turned to the proximal aspect. Through the targeting arm, two 5.0 millimeter screws were placed. One was placed in the dynamic hole and the other was placed in the static hole. These were placed without difficulty and once again were ensured to be bicortical. The targeting device was removed. AP and lateral x-rays of were taken of the tibia and fibula. The fracture site is once again investigated and showed to be well aligned as was the overall alignment of the leg. The deep tissues and superficial tissues of the leg and the incision sites were injected with a mixture of 50 cc of ropivacaine, epinephrine, clonidine, and ketorolac.. The wounds were thoroughly irrigated. There was a small defect of the synovium which was repaired with interrupted 0 Vicryl. The retinaculum of the knee was reapproximated with a running #1 Vicryl. The deep tissue was closed with a 2-0 Vicryl followed by running 3-0 Monocryl. The smaller wounds for screw placement were closed with Vicryl and Monocryl in a similar fashion. Mepilex dressing was placed over the wounds. A soft dressing was applied. At the end of the case, all counts were correct. Aracelis tolerated the procedure well without known complication and was taken to the PACU for recovery. Physical therapy will start post-operatively, touchdown weightbearing for the first 2 weeks with assistive devices in a fracture walker boot. Anticoagulation will start within 12-24 hours. 3 doses of post-operative antibiotics for prophylaxis will be administered.
--- NOTE | 2022-11-24 17:28 | W.PM.PROGNOT ---
Date of Service Date of service: 11/24/22 Time of Service: 09:20 Assessment and Plan Assessment and plan (1) Closed fracture of right fibula and tibia: Status: Acute Assessment and plan: Secondary to fall/syncope. Ortho. and anesthesia have evaluated. Planned repair today. Alert today. Scheduled acetaminophen, prn Toradol. PRN dilaudid; watching for oversedation. (2) Syncopal episodes: Status: Chronic Assessment and plan: She endorses daily occurences. During last admission a transfer to a tertiary care center with in-house neurology and EEG was sought, but neither [facility] [place] [facility] nor [facility] had available beds. (3) QT prolongation: Status: Acute Assessment and plan: On methadone and citalopram. Avoiding zofran. (4) Chronic systolic CHF (congestive heart failure): Status: Chronic Assessment and plan: Cont torsemide. Heart Healthy diet except NPO for surgery. (5) Ischemic cardiomyopathy: Status: Acute Assessment and plan: CAD with drug eluting stent. Holding plavix and ASA; surgical repair of tib-fib fx planned for tomorrow. Cont BB (6) Tobacco abuse disorder: Status: Acute Assessment and plan: Nicoderm 14mg. (7) Type 2 diabetes mellitus: Status: Chronic Assessment and plan: Cont Jardiance and Victoza. Holding her scheduled basal/bolus insulin; lethargic and not eating currently and will NPO after MN. SS insulin prn correction dosing. Diabetic (and heart healthy) diet. Subjective Subjective Patient reports: still having pain (R leg) and afebrile; denies nausea or vomiting Exam Narrative Exam Narrative: Lying in bed. C/O leg pain. Const General: cooperative and no acute distress Nutritional Appearance: underweight Limitations: altered mental status Eyes General: appearance normal, both eyes and all related structures Sclera: sclerae normal Resp Effort & Inspection: normal respiratory effort Auscultation: clear to auscultation bilaterally and diminished lung sounds Cardio Rate: regular rate Rhythm: regular rhythm Heart Sounds: S1 normal and S2 normal GI Inspection: non-distended Palpation: soft and nontender Skin General skin exam: other (Multitude of tattos. No rashes) Neuro General: moves all extremities Cranial Nerves: facial strength normal Extrem General: no pedal edema Right lower extremity: lower leg (Mid tib-fib shaft splint in place. ) Psych Appearance: grossly normal Mental Status: mental status grossly normal Speech and Movement: speech clear Objective Last Vital Signs Temp 36.7 C 11/24/22 17:22 Pulse 80 11/24/22 17:22 Resp 15 11/24/22 17:22 BP 105/61 11/24/22 17:22 Pulse Ox 94 11/24/22 17:22 Laboratory Results - last 24 hr 11/24/22 06:30 Sodium 145 Potassium 4.2 Chloride 108 H Carbon Dioxide 31.3 Anion Gap 5.7 BUN 24 H Creatinine 0.8 Est GFR (CKD-EPI 2020) 91.40 Glucose 81 Calcium 8.8 Time Spent with Patient Time Spent with Patient: 25-34 minutes Time was spent: preparing to see the patient(eg.review tests), ordering medications,tests, procedures, referring, communicating with other health residential care officer and indepentently interpreting results
--- NOTE | 2022-11-24 17:52 | W.ANESPOSTOP ---
Postoperative Evaluation Date, Time and Location Date Performed: 11/24/22 Time Performed: 17:22 Patient Location: PACU Vital Signs Most Recent Imported Vital Signs: Most Recent Vital Signs Temp Pulse Resp BP Pulse Ox 36.7 C 80 15 105/61 94 11/24/22 17:22 11/24/22 17:22 11/24/22 17:22 11/24/22 17:22 11/24/22 17:22 Pain Score Most Recent Pain Score: Most Recent Pain Score Pain Level 10 11/24/22 13:06 Assessment Mental Status: Arousable with meaningful communication Airway and Respiratory Function: Patent airway with normal (patient baseline) respiratory exam Cardiovascular Function: Hemodynamically Stable Hydration Status: Adequately Hydrated Nausea & Vomiting: No Nausea or Vomiting Pain: Pain is Moderate or Severe (Her pain was 10/10 preop. Plan is to let the anesthetic continue to wear off until we can get a better idea of her pain after surgery and make a plan that achieves better pain control allows her to appropriately mentate. Continuous pulse ox monitoring is in place for the medical floor.) Postoperative Pain Management: Ongoing pain, patient will be managed as an inpatient Peripheral Nerve Block: Patient did not receive a nerve block
[2022-11-24] MEDS: Atorvastatin 40 MG TAB 80 MG PO (19:49)
[2022-11-24] MEDS: ceFAZolin 1 GM/50 ML BAG IVPB (19:50)
[2022-11-24] MEDS: Gabapentin 600 MG TAB 1200 MG PO (19:50)
[2022-11-24] MEDS: Normal Saline Flush 10 ML SYR IVP (22:50)
[2022-11-25] VITALS (9 sets, daily range): BP systolic 92–102; BP diastolic 56–62; PULSE 70–89; RESP 16–20; TEMP 36.3–37.4; O2SAT 93–97
[2022-11-25] MEDS: HYDROmorphone 2 MG/ML VIAL 1 MG IVP ×6 (00:59→18:37)
[2022-11-25] MEDS: Normal Saline Flush 10 ML SYR IVP ×8 (01:01→18:38)
[2022-11-25] MEDS: Ketorolac 30 MG/ML VIAL IVP ×2 (01:59→08:09)
[2022-11-25] MEDS: ceFAZolin 1 GM/50 ML BAG IVPB ×2 (03:12→12:50)
[2022-11-25] MEDS: oxyCODONE 15 MG TAB PO ×2 (06:22→11:45)
[2022-11-25 07:00] LABS: HCT 37.9 % (36.0-46.0); HGB 12.2 g/dL (11.2-15.7); MCH 29.5 pg (27.0-33.0); MCHC 32.2 % (32.0-36.0); MCV 92 fL (80-95); MPV 9.9 fL (8.0-11.0); Platelet Count 328 10^3/uL (130-400); RBC 4.14 10^6/uL (3.93-5.22); RDW 14.2 % (11.7-14.6); RDW-SD 47.8 fL; WBC 14.75 10^3/uL (4.4-10.8)
[2022-11-25] MEDS: Enoxaparin 40 MG/0.4 ML SYR SC (08:09)
[2022-11-25] MEDS: Methadone Liquid 10 MG/ML 120 MG PO (08:09)
[2022-11-25] MEDS: Polyethylene Glycol 3350 17 GM PACKET PO (08:09)
[2022-11-25] MEDS: Nicotine 14 MG/24 HR PATCH TD (08:10)
[2022-11-25] MEDS: Colchicine 0.6 MG TAB PO ×2 (08:11→20:30)
[2022-11-25] MEDS: Acetaminophen 500 MG TAB PO ×4 (08:11→20:31)
[2022-11-25] MEDS: Carvedilol 3.125 MG TAB PO (08:11)
[2022-11-25] MEDS: Empaglifozin 10 MG TAB PO (08:12)
[2022-11-25] MEDS: levETIRAcetam 500 MG TAB PO ×2 (08:12→20:32)
[2022-11-25] MEDS: Potassium Chloride 20 MEQ TABCR PO ×2 (08:12→20:30)
[2022-11-25] MEDS: Pantoprazole 40 MG TABCR PO ×2 (08:12→20:31)
[2022-11-25] MEDS: Citalopram 20 MG TAB PO (08:12)
[2022-11-25] MEDS: Torsemide 20 MG TAB 40 MG PO (08:12)
[2022-11-25] MEDS: Gabapentin 600 MG TAB PO ×2 (08:12→12:50)
[2022-11-25] MEDS: Insulin Aspart 300 UNITS/3 ML PEN SC ×4 (08:12→22:24)
[2022-11-25] MEDS: Budesonide/Formoterol 80/4.5 6.9 GM 60 PUFF INH IH ×2 (08:33→22:21)
--- NOTE | 2022-11-25 10:32 | PDOC.CMPRO ---
- If Service Date Differs Date of service: 11/25/22 Time of Service: 10:32 Care Management Progress Note S/O:Aracelis was sitting up in bed when CM met with her. She informed CAREN that she was in a lot of pain which she rated as a 9/10 at that time. She has been receiving IV and PO pain medication with varying degrees of effectiveness. Aracelis informed CAREN that she had an upsetting encounter with a healthcare worker when she was in the ED the day of admission. CM referred the concern to the ED Nurse [employer] Book Writer/Director. Aracelis had a PT evaluation today and they have recommended SNF for short term rehab. CAREN discussed the recommendation with Aracelis who stated that she will not consider going to a senior living facility. She did inform CM that if she is discharged this weekend it will need to be before 10 am tomorrow as she has to get her weekend doses of methadone from [facility] by that time. If she doesn't discharge by then, she stated that she will need to remain at [facility] until Monday. A: Aracelis is a 47 year old woman admitted on 11/23/22 with a tib/fib fracture P:Aracelis will likely be discharged home, possibly with new home health services, when medically cleared by provider. She will follow up with orthopedics as well as her PCP and discharge plan of care. Aracelis will need a last dose letter for [facility] when she is discharged. CM will follow and assess for ongoing discharge concerns.
--- NOTE | 2022-11-25 13:07 | PGE_ITS ---
Date of Service Date of service: 11/25/22 Time of Service: 13:00 Assessment and Plan Assessment and plan (1) Closed fracture of shaft of right tibia and fibula: Status: Acute Assessment and plan: Aracelis is a 47-year-old who is now postop day #1 status post intervention nail fixation of a right tibia fracture. She is doing appropriate. Her pain control postoperative is going be challenging given her preinjury issues with chronic pain including significant use of methadone. She is currently on a higher dose regimen of oxycodone which may need to be increased. However, it is important that we slowly transition her off the IV medications. She was able to mobilize briefly. I do recommend physical therapy consult. Fracture walker boot may be utilized to assist with mobilization. She may mobilize with touchdown weightbearing without the boot if that is easier. The boot is to help out with pain control for mobilization, especially when she transitions to home. Enoxaparin for DVT prophylaxis while in house, transition to aspirin on discharge. Bony wrap may be removed on postop day #2. Mepilex dressing should stay in place for at least 1 week. Subjective Subjective Interval history since last seen: Aracelis reports to be doing well. She has had some pain about the leg with spasm into the knee and thigh. She denies any new numbness or tingling. She has been taking the oral medications with some IV Hydromorphone. She was able to get out of the bed to the commode. Exam Extrem Other: Evaluation of the right lower extremity shows a clean dry and intact dressing. She is able to actively dorsiflex and plantarflex the foot although resistant to do so. Passively I can get her foot past neutral without any significant worsening of pain. Calf is soft and compressible. Gentle range of motion of the knee does not increase pain. Sensation intact light touch of the deep and superficial peroneal nerve and tibial nerve. Toes are warm and well-perfused with capillary refill less than 2 seconds. Objective Last Vital Signs Temp 36.7 C 11/25/22 11:39 Pulse 73 11/25/22 11:39 Resp 18 11/25/22 11:39 BP 96/58 L 11/25/22 11:44 Pulse Ox 96 11/25/22 11:39 Laboratory Results - last 24 hr 11/25/22 06:26 WBC 14.75 H RBC 4.14 Hgb 12.2 Hct 37.9 MCV 92 MCH 29.5 MCHC 32.2 RDW 14.2 Plt Count 328 MPV 9.9 Time Spent with Patient Time Spent with Patient: <25 minutes Time was spent: preparing to see the patient(eg.review tests), obtaining and/or reviewing separately otained hiistory and referring, communicating with other health client care consultant
--- NOTE | 2022-11-25 13:57 | CHAPLAIN ---
Aracelis was in bed when I visited this afternoon. Two of her children arrived. This morning she told me she's doing ok, but having some pain. She's interested in seeing the incision to see if her tattoo is affected. Aracelis said she has been living with her son, who had a baby recently and the baby had just come home from [facility] after spending time in the hospital because she was born 3 months early. Aracelis said she fell when she went to clean the tubing that is part of the baby's medical care. Aracelis has been falling with no explanation. She said has had five heart surgeries, and doesn't feel anything coming ahead ahead of the falls.
--- NOTE | 2022-11-25 14:00 | PT.INIE ---
PT Notes Visit Reasons: Loss of consciousness,Tib-Fib Fracture Physical Therapy Inpatient Initial Evaluation Date: 11/25/22 Referring Doctor: Stevenson Wisdom MD PT Orders: PT CONSULT: s/p ortho surgery - IMN fixation of right tibia fracture Precautions: Fall. Standard. R LE TTWB for 2 weeks. CAM walking boot. Patient Profile/Admitting Diagnosis: Aracelis is 47 yo female that presented to the ER on 11/24/22 for right leg pain after syncopal episode and fall. She is POD 1 and underwent surgery for right IMN fixation of right tibia fracture. Patient has multiple co-morbidities and medical complications. PMHX: See EMR Social History/Home Situation: Patient lives in 2 story home with 4 ELI[address] and rail on right. She only uses the main level at baseline due to heart. She may try to stay at [facility], who has no stairs, but icy access. On 2L O2 at baseline. Equipment Owned/DME: [employer] Subjective: Cleared by nursing to see patient and patient is agreeable to PT. Patient resting in bed at time of consult and connected to telemetry, IV, 2L O2, and arias catheter. Objective: General Observation: Anxiety, reports a lot of medical complications Mental Status: A&O x3 Pain: 8/10 right leg ROM: Right Upper Extremity: Shoulder Flexion WFL. Shoulder abduction WFL. Elbow flexion WFL. Wrist flexion WFL. Opening and closing of hand WFL. Left Upper Extremity: Shoulder Flexion impaired. Shoulder abduction impaired. Elbow flexion WFL. Wrist flexion WFL. Opening and closing of hand WFL. Right Lower Extremity: Hip flexion WFL. Hip abduction WFL. Knee flexion impaired. Ankle dorsiflexion impaired. Ankle plantarflexion WFL. Left Lower Extremity: Hip flexion WFL. Hip abduction WFL. Knee flexion WFL. Ankle dorsiflexion WFL. Ankle plantarflexion WFL. Strength: Right Upper Extremity: WFLs, not formally assessed Left Upper Extremity: WFLs, not formally assessed Right Lower Extremity: Hip flexors 3/5. Knee flexors 2/5. Knee extensors 2/5. Ankle dorsiflexors 2/5. Ankle plantarflexors 3/5. Left Lower Extremity: Hip flexors 5/5. Knee flexors 5/5. Knee extensors 5/5. Ankle dorsiflexors 5/5. Ankle plantarflexors 5/5. Sensation: Intact as to pain and pressure on bilateral lower extremities. Bed Mobility/Transfers: Supine to sit: Min A Sit to supine: Min A Sit to stand: Min A Stand to sit: Supervision Gait: Ambulated 5 feet in room with FWW, hopping, CGA Stairs: Not assessed Balance: Static Sitting: Normal Dynamic Sitting: Good Static Standing: Good Dynamic Standing: Fair Therapeutic Activity (94040) dynamic movement and functional strengthening to improve physical performance: 15 minutes Ambulation in room Set patient up in chair Special Tests: Mobility Limitations Standardized Measure [facility] AM-PAC 6 clicks Basic Mobility Inpatient Short Form: Raw Score: 13 CMS Score: 65% Informed Consent/Education: Patient instructed in purpose of PT consult and plan of care. Assessment: Patient presents with clinical signs and symptoms consistent with current/admitting diagnoses that have resulted to mobility limitations, gait instability, generalized weakness, and impairment of motor control as demonstrated by the following impairment level findings: 1. Decreased strength to left shoulder and right lower extremity major muscle groups 2. Impaired sitting/standing balance 3. Impaired activity tolerance 4. Limitation of joint range of motion in right knee Impairments are contributing to the following functional limitations: 1. Increased dependence with transfers 2. Inability to safely ambulate without assistive device and physical assistance 3. Increase completion time for mobility ADL performance 4. Increased fall risk 5. Inability to negotiate steps alone safely Patient is assessed as a Moderate complexity based on the following: History: 47 year old female with impairment level findings, functional limitations, and past medical history as indicated above Examination: Demonstrable impairment in strength, balance, and mobility level with underlying impairments and functional limitations as documented above Presentation: Evolving Decision Making: Moderate complexity Aracelis had syncopal type episode sitting at edge of bed. With return to alertness she was twitching through torso and neck with decreased responsiveness. She reports head feeling odd. Able to hop with FWW a few steps to get to chair. Poor overall mobility with general weakness and upper extremity issues. Goals: Goals x1 week 1. Supine-Sit: independent 2. Sit-Supine: independent 3. Sit-Stand: independent 4. Stand-Sit: independent 5. Bed-Chair: independent 6. Chair-Bed: independent 7. Independent gait on level surface with use of least restrictive device for at least 300 feet without report of pain nor dyspnea 8. Good static and dynamic standing balance/tolerance 9. Independent with home exercise program 10. Independent stair negotiation while holding onto bilateral rails for at least 10 steps without report of pain nor dyspnea Plan of Care/Treatment Plan: 1-2x/day, 7 days/week x1 week. Plan of care has been reviewed with the [employer] providing the service under Physical Therapy direction. Initiate Physical Therapy intervention for strengthening, bed mobility, transfers, gait, stairs, balance training, and use of assistive device. Discharge Plan DISCHARGE RECOMMENDATIONS: SNF for continued rehabilitation and will monitor progress; patient request forearm crutches TREATMENT CODE/TIME: 13:21-13:58 (37 minutes), [id number], [id number] Thank you for the opportunity to participate in the care of this patient. Blossom Wilkerson, PT, DPT, [facility] [place], [place]
--- NOTE | 2022-11-25 15:39 | PGE_ITS ---
Date of Service Date of service: 11/25/22 Time of Service: 15:39 Assessment and Plan Assessment and plan (1) Closed fracture of right fibula and tibia: Status: Acute Assessment and plan: Secondary to fall/syncope. Post Op DAy #1 TTWB on RLE Oxycodone 15mg Q4H prn now changed to 20mg Q4H prn. Increase interval between doses or breakthrough pain dilaudid; now 1mg Q3 H PRN. (2) Syncopal episodes: Status: Chronic Assessment and plan: She endorses daily occurences. During last admission a transfer to a tertiary care center with in-house neurology and EEG was sought, but neither [facility] nor [facility] had available beds. Questionably a hypersomnolence issue? Drug abuse related? (3) QT prolongation: Status: Acute Assessment and plan: On methadone and citalopram. Avoiding zofran. (4) Chronic systolic CHF (congestive heart failure): Status: Chronic Assessment and plan: Cont torsemide. Heart Healthy diet Resumed aspirin 81mg daily. Ortho does recommend aspirin for DVT prophylaxis when discharge / off Lovenox. (5) Ischemic cardiomyopathy: Status: Acute Assessment and plan: CAD with drug eluting stent. Holding plavix and ASA; surgical repair of tib-fib fx planned for tomorrow. Cont BB (6) Tobacco abuse disorder: Status: Acute Assessment and plan: Nicoderm 14mg. (7) Type 2 diabetes mellitus: Status: Chronic Assessment and plan: A1c in October/2022 was 6.3. Cont Jardiance and Victoza. Restart basal/bolus insulin. Glucose running high now. Will likely need to titrate. It's noted that her mother has been bringing in candy/gummies. SS insulin prn correction dosing. Diabetic (and heart healthy) diet. (8) Discharge planning issues: Status: Acute Assessment and plan: She will likely d/c in the next 1-2 days with PCP and ortho f/u. Would potentially benefit from home health nursing and PT/OT but this is yet to be determined. Objective Last Vital Signs Temp 37.2 C 11/25/22 15:16 Pulse 79 11/25/22 15:16 Resp 18 11/25/22 15:16 BP 102/58 L 11/25/22 15:16 Pulse Ox 94 11/25/22 15:16 Laboratory Results - last 24 hr 11/25/22 06:26 WBC 14.75 H RBC 4.14 Hgb 12.2 Hct 37.9 MCV 92 MCH 29.5 MCHC 32.2 RDW 14.2 Plt Count 328 MPV 9.9 Time Spent with Patient Time Spent with Patient: 25-34 minutes Time was spent: preparing to see the patient(eg.review tests), ordering medications,tests, procedures, indepentently interpreting results, counseling the patient and care coordination
[2022-11-25] MEDS: oxyCODONE 10 MG TAB 20 MG PO ×2 (16:34→22:21)
[2022-11-25] MEDS: Fluticasone NASAL SPRAY 16 GM BTL NS (17:03)
[2022-11-25] MEDS: Insulin Glargine 300 UNITS/3 ML PEN 10 UNITS SC (17:04)
[2022-11-25] MEDS: Insulin Aspart 300 UNITS/3 ML PEN 10 UNITS SC (17:12)
[2022-11-25 17:18] LABS: Glucose 490 mg/dL (74-106)
[2022-11-25] MEDS: Atorvastatin 40 MG TAB 80 MG PO (20:30)
[2022-11-25] MEDS: Gabapentin 600 MG TAB 1200 MG PO (20:31)
[2022-11-26] VITALS (8 sets, daily range): BP systolic 92–100; BP diastolic 54–64; PULSE 80–92; RESP 16–19; TEMP 36.1–37.2; O2SAT 93–96
[2022-11-26] MEDS: HYDROmorphone 2 MG/ML VIAL 1 MG IVP ×6 (00:47→22:21)
[2022-11-26] MEDS: oxyCODONE 10 MG TAB 20 MG PO ×5 (04:46→19:31)
[2022-11-26 07:24] LABS: Anion Gap 6.2 mmol/L (3-11); BUN 29 mg/dL (7-18); CO2 28.8 mmol/L (21.0-32.0); Calcium 8.6 mg/dL (8.5-10.1); Chloride 104 mmol/L (98-107); Estimated GFR 69.93 (mL/min/1.73m2); Glucose 464 mg/dL (74-106); Potassium 3.9 mmol/L (3.5-5.1); Sodium 139 mmol/L (136-145)
[2022-11-26] MEDS: Methadone Liquid 10 MG/ML 120 MG PO (07:47)
[2022-11-26] MEDS: Insulin Aspart 300 UNITS/3 ML PEN SC ×3 (08:09→21:46)
[2022-11-26] MEDS: Insulin Glargine 300 UNITS/3 ML PEN 48 UNITS SC (08:12)
[2022-11-26] MEDS: Acetaminophen 500 MG TAB PO ×4 (08:18→19:31)
[2022-11-26] MEDS: Empaglifozin 10 MG TAB PO (08:20)
[2022-11-26] MEDS: levETIRAcetam 500 MG TAB PO ×2 (08:20→19:32)
[2022-11-26] MEDS: Gabapentin 600 MG TAB PO ×2 (08:21→11:55)
[2022-11-26] MEDS: Clopidogrel 75 MG TAB PO (08:21)
[2022-11-26] MEDS: Colchicine 0.6 MG TAB PO ×2 (08:21→19:30)
[2022-11-26] MEDS: Aspirin 81 MG CHEW PO (08:21)
[2022-11-26] MEDS: Citalopram 20 MG TAB PO (08:21)
--- NOTE | 2022-11-26 08:21 | RESPIRATORY ---
RT discussed the used of Sheila at pressure of 12 cm H2O with patient and why she did not use device. Patient stated pressures were too high and she could not tolerate using it overnight. RT decreased pressure to 6cm H2O which Dr Rhodes stated to attempt but could also titrate up if needed. This pressure was trialed on patient and were not sufficient, RT increased to 8 and then to 9 per patients comfort. Previous pressure was 12 cm H2O as this is what was decided as comfortable by patient previously. RT instructed patient to use device while napping in order to see if these new pressure will be sufficient. RT will check with patient later on today and instruct tomorrows RT to check in with patient also.
[2022-11-26] MEDS: Enoxaparin 40 MG/0.4 ML SYR SC (08:22)
[2022-11-26] MEDS: Normal Saline Flush 10 ML SYR IVP ×2 (08:22→18:22)
[2022-11-26] MEDS: Fluticasone NASAL SPRAY 16 GM BTL NS (08:22)
[2022-11-26] MEDS: Budesonide/Formoterol 80/4.5 6.9 GM 60 PUFF INH IH (08:40)
[2022-11-26] MEDS: Torsemide 20 MG TAB 40 MG PO (08:59)
[2022-11-26] MEDS: Potassium Chloride 20 MEQ TABCR PO ×2 (08:59→19:31)
[2022-11-26] MEDS: Nicotine 14 MG/24 HR PATCH TD (09:00)
[2022-11-26] MEDS: Pantoprazole 40 MG TABCR PO ×2 (09:01→19:32)
--- NOTE | 2022-11-26 10:21 | PGE_ITS ---
Date of Service Date of service: 11/26/22 Time of Service: 09:15 Assessment and Plan Assessment and plan (1) Closed fracture of shaft of right tibia and fibula: Status: Acute Assessment and plan: Aracelis is a 47-year-old with complex medical history including chronic substance use disorder on methadone at high doses. She is making decent progress. She was able to mobilize briefly. She is having pain which I told her she has to expect. We will continue to work on pain management but increasing or utilizing multiple doses of intravenous medication is not going to help progress towards home. I think supportively work on oral dosing to better treat her current pain situation. She is not utilizing the full amount of oral oxycodone that she could and therefore I have encouraged her and the nursing team to be more proactive on staying on top of this medication and consideration of even scheduling it at every 4 hour intervals. We also can consider adding on a muscl e relaxer which may be able to help out with her current muscle spasms which are causing some of the pain. However, these have improved with the use of heat. She will work with physical therapy this morning. She has a boot she can wear in the right lower extremity for mobilization. She is quite adamant that she needs a forearm crutches because she has a narrow home which will not work with a walker and she has a history of an unstable total shoulder replacement on the left side for which she is scared to use regular crutches. She is weightbearing as tolerated on the right lower extremity although usually touchdown and protected weightbearing is all that can be expected in the first few weeks. Mepilex dressings may stay intact for 2 weeks. I discussed the case in detail with the hospitalist team who will be working on improving her hyperglycemia as well as obtaining better pain control. She would likely discharge to home within the next few days with home health services. Subjective Subjective Interval history since last seen: Aracelis reports having significant pain about her right leg. However, she has found that the spasms have improved with the use of heat to the thigh. She is requesting and wanting the IV hydromorphone for breakthrough. However, in looking at the MAR she has not been receiving her maximal dose of oxycodone as written for. She denies any chest pain or shortness of breath. She has had significant hyperglycemia and is currently upset about the dosing of her home diabetes medication. She feels that every time she falls asleep she wakes up with excruciating pain. Exam Extrem Other: Evaluation of the right lower extremity shows no drainage. The Bony wrap is removed. Mepilex dressings are clean dry and intact. She is able to actively lift the right leg as well as flex and extend the right ankle without significant increase in pain. She does have pain with palpation of the leg. There is some swelling but no signs of compartment syndrome. The thigh and the calf is soft. Sensation intact to light touch over the deep and superficial peroneal nerve and tibial nerve. Objective Last Vital Signs Temp 36.1 C L 11/26/22 07:43 Pulse 80 11/26/22 07:43 Resp 16 11/26/22 07:43 BP 99/63 L 11/26/22 07:43 Pulse Ox 96 11/26/22 07:43 Laboratory Results - last 24 hr 11/25/22 11/26/22 16:58 06:55 Sodium 139 Potassium 3.9 Chloride 104 Carbon Dioxide 28.8 Anion Gap 6.2 BUN 29 H Creatinine 1.0 Est GFR (CKD-EPI 2020) 69.93 Glucose 490 H 464 H Calcium 8.6 Time Spent with Patient Time Spent with Patient: 25-34 minutes Time was spent: preparing to see the patient(eg.review tests), obtaining and/or reviewing separately otained hiistory, referring, communicating with other health healthcare insurance sales agent and counseling the patient
--- NOTE | 2022-11-26 11:24 | PT.INTREAT ---
PT Notes Visit Reasons: Loss of consciousness,Tib-Fib Fracture Inpatient Physical Therapy Treatment Note [facility] Date: 11/26/22 SUBJECTIVE: December states that she is in a lot of pain. She feels better with hot pack to quad to prevent spasms and ice on her goddard. She is not looking forward to getting oob, but is willing to try. OBJECTIVE: [] PAIN: medial ankle and lateral knee BED MOBILITY/TRANSFERS Rolling L/R: I Supine-sit:I Sit-stand: CGA Stand-sit: CGA Bed-Chair: CGA GAIT Assistive Device: FWW Weight bearing: TTWB Assist: CGA Distance: 7' Deviation: proper gait sequencing THEREX: AP x5, LAQ x5, hip flex x5. Limited by pain. ASSESSMENT: tolerated session fairly well. Cues for proper breathing techniques, avoiding holding breathe. She does holler out in pain if she moves too quickly. She sat in recliner with legs elevated, remained in boot however I removed top layer, opened velco straps to apply ice on goddard. PLAN: will continue to progress strength and functional mobility to tolerance. TREATMENT CODE/TIME: 30 min, 50701h7, [id number].
[2022-11-26] MEDS: Insulin Aspart 300 UNITS/3 ML PEN 10 UNITS SC ×2 (11:44→21:47)
[2022-11-26] MEDS: Baclofen 10 MG TAB 5 MG PO ×2 (13:05→19:32)
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
[2022-11-26] MEDS: Carvedilol 3.125 MG TAB PO (19:30)
[2022-11-26] MEDS: Gabapentin 600 MG TAB 1200 MG PO (19:31)
[2022-11-26] MEDS: Atorvastatin 40 MG TAB 80 MG PO (19:32)
[2022-11-27] VITALS (7 sets, daily range): BP systolic 96–105; BP diastolic 56–68; PULSE 72–88; RESP 16–18; TEMP 36–36.8; O2SAT 93–97
[2022-11-27] MEDS: oxyCODONE 10 MG TAB 20 MG PO ×6 (03:09→23:46)
[2022-11-27] MEDS: Normal Saline Flush 10 ML SYR IVP ×2 (05:30→15:08)
[2022-11-27] MEDS: HYDROmorphone 2 MG/ML VIAL 1 MG IVP ×5 (05:30→22:49)
[2022-11-27 06:55] LABS: Abs Immature Grans 0.03 10^3/uL (0.0-0.06); Absolute Basophil Count 0.05 10^3/uL (0.0-0.2); Absolute Eosinophil Count 0.67 10^3/uL (0.0-0.7); Absolute Lymphocyte Count 3.62 10^3/uL (1.2-3.4); Absolute Monocyte Count 1.07 10^3/uL (0.1-0.8); Absolute Neutrophil Count 4.78 10^3/uL (1.2-6.7); Basophils % 0.5; Eosinophils % 6.6; HCT 39.9 % (36.0-46.0); HGB 12.9 g/dL (11.2-15.7); Immature Grans % 0.3; Lymphocytes % 35.4; MCH 29.5 pg (27.0-33.0); MCHC 32.3 % (32.0-36.0); MCV 91 fL (80-95); MPV 10.1 fL (8.0-11.0); Monocytes % 10.5; Neutrophils % 46.7; Platelet Count 331 10^3/uL (130-400); RBC 4.38 10^6/uL (3.93-5.22); RDW 14.2 % (11.7-14.6); RDW-SD 47.9 fL; WBC 10.22 10^3/uL (4.4-10.8)
[2022-11-27] MEDS: Budesonide/Formoterol 80/4.5 6.9 GM 60 PUFF INH IH ×2 (07:11→21:52)
[2022-11-27 07:15] LABS: Anion Gap 6.3 mmol/L (3-11); BUN 21 mg/dL (7-18); CO2 32.7 mmol/L (21.0-32.0); CREATININE 0.8 mg/dL (0.55-1.02); Calcium 8.9 mg/dL (8.5-10.1); Chloride 103 mmol/L (98-107); Glucose 184 mg/dL (74-106); Magnesium 2.1 mg/dL (1.8-2.4); Potassium 3.7 mmol/L (3.5-5.1); Sodium 142 mmol/L (136-145)
[2022-11-27] MEDS: Methadone Liquid 10 MG/ML 120 MG PO (08:02)
[2022-11-27] MEDS: Baclofen 10 MG TAB 5 MG PO ×2 (08:04→19:45)
[2022-11-27] MEDS: Clopidogrel 75 MG TAB PO (08:04)
[2022-11-27] MEDS: Empaglifozin 10 MG TAB PO (08:04)
[2022-11-27] MEDS: Citalopram 20 MG TAB PO (08:04)
[2022-11-27] MEDS: Acetaminophen 500 MG TAB PO ×3 (08:04→19:46)
[2022-11-27] MEDS: Aspirin 81 MG CHEW PO (08:05)
[2022-11-27] MEDS: Pantoprazole 40 MG TABCR PO ×2 (08:05→19:45)
[2022-11-27] MEDS: levETIRAcetam 500 MG TAB PO ×2 (08:05→19:44)
[2022-11-27] MEDS: Enoxaparin 40 MG/0.4 ML SYR SC (08:05)
[2022-11-27] MEDS: Torsemide 20 MG TAB 40 MG PO (08:05)
[2022-11-27] MEDS: Colchicine 0.6 MG TAB PO ×2 (08:06→19:44)
[2022-11-27] MEDS: Carvedilol 3.125 MG TAB PO ×2 (08:06→19:45)
[2022-11-27] MEDS: Gabapentin 600 MG TAB PO (08:06)
[2022-11-27] MEDS: Nicotine 14 MG/24 HR PATCH TD (08:06)
[2022-11-27] MEDS: Fluticasone NASAL SPRAY 16 GM BTL NS (08:06)
[2022-11-27] MEDS: Potassium Chloride 20 MEQ TABCR PO ×2 (08:06→19:44)
[2022-11-27] MEDS: Patient's Own Medication 1 EACH MISC 1.8 EACH SC (08:09)
[2022-11-27] MEDS: Baclofen 10 MG TAB PO ×2 (14:58→19:45)
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
--- NOTE | 2022-11-27 17:41 | W.PM.PROGNOT ---
Date of Service Date of service: 11/27/22 Time of Service: 14:00 Assessment and Plan Assessment and plan (1) Closed fracture of right fibula and tibia: Status: Acute Assessment and plan: In setting of the unresponsive episode. Post Op Day #3. Started on prophylactic keflex for erythema. TTWB on RLE Continue PT, schedule oxycodone, prn IV dilaudid. Consider increasing dose of methadone - will discuss with TRINI tomorrow. (2) Syncopal episodes: Status: Chronic Assessment and plan: Etiology unclear. Continue keppra. EEG negative on last admission. Needs to have a f/u sleep study. (3) QT prolongation: Status: Chronic Assessment and plan: Previously discussed with cardiology. Contiue methadone and citalopram. Avoid other QT prolonging agents. (4) Chronic systolic CHF (congestive heart failure): Status: Chronic Assessment and plan: Due to ICMO. LVEF 39%. Continue home regimen. Euvolemic. Avoid NSAIDs. (5) Ischemic cardiomyopathy: Status: Acute Assessment and plan: As above Continue Aspirin and plavix. (6) Tobacco abuse disorder: Status: Acute Assessment and plan: Continue nicotine patch. (7) Type 2 diabetes mellitus: Status: Chronic Assessment and plan: A1c in October/2022 was 6.3. BGs much better. Continue victoza, treseba, jardiance, scheduled 10 units aspart w/ meals as at home. Continue resistant corrective insulin. Continue carb consistent diet. (8) Discharge planning issues: Status: Acute Assessment and plan: Full code. Refuses SNF. Care management was made aware of patient's safety concerns. Anticipate need for home health services as early as tomorrow. Will speak with TRINI about methadone dose adjustment. (9) DVT prophylaxis: Status: Acute Assessment and plan: Sc enoxaparin Subjective Subjective Interval history since last seen: December states that her RLE pain is worse today. Her nurse also pointed out redness around her incision site which was still there two hours after removal of heat. I touched base with Dr Wisdom who, given poor glycemic control, felt it would be reasonable to start antibiotics. Started on keflex. Reports dizziness when getting up. Otherwise, no CP, SOB, n/v. Bruner catheter has been removed. Still requiring IV dilaudid in addition to oxycodone and methadone. Exam Narrative Exam Narrative: General: female who appears uncomfortable, A&Ox3, anxious HEENT: EOMI, MMM Heart: RRR, no m/r/g Lungs: CTAB Abdomen: soft, nontender, nondistended Extremities: no edema LLE; RLE in a boot; ice/heat have been removed. The incision is dressed - c/d/i; there is erythema around medial, lateral and inferior borders of the dressing that I have outlined with a marker. Objective Last Vital Signs Temp 36.0 C L 11/27/22 15:05 Pulse 77 11/27/22 15:05 Resp 18 11/27/22 15:05 BP 100/65 11/27/22 15:05 Pulse Ox 97 11/27/22 15:05 Laboratory Results - last 24 hr 11/27/22 11/27/22 06:17 06:17 WBC 10.22 RBC 4.38 Hgb 12.9 Hct 39.9 MCV 91 MCH 29.5 MCHC 32.3 RDW 14.2 Plt Count 331 MPV 10.1 Immature Gran % 0.3 Neutrophils % 46.7 Lymphocytes % 35.4 Monocytes % 10.5 Eosinophils % 6.6 Basophils % 0.5 Nucleated RBC % 0.0 Absolute Neutrophils 4.78 Absolute Lymphocytes 3.62 H Absolute Monocytes 1.07 H Absolute Eosinophils 0.67 Absolute Basophils 0.05 Sodium 142 Potassium 3.7 Chloride 103 Carbon Dioxide 32.7 H Anion Gap 6.3 BUN 21 H Creatinine 0.8 Est GFR (CKD-EPI 2020) 91.40 Glucose 184 H Calcium 8.9 Magnesium 2.1 Time Spent with Patient Time Spent with Patient: 35-49 minutes Time was spent: preparing to see the patient(eg.review tests), obtaining and/or reviewing separately otained hiistory, ordering medications,tests, procedures, referring, communicating with other health career development coordinator, indepentently interpreting results, counseling the patient and care coordination
[2022-11-27 18:46] LABS: C-Reactive Protein 2.92 mg/dL (0.0-0.3)
[2022-11-27 19:06] LABS: Procalcitonin < 0.1 ng/mL
[2022-11-27 19:31] LABS: Lab Add On Test DONE
[2022-11-27] MEDS: Cephalexin 250 MG CAP PO (19:44)
[2022-11-27] MEDS: Gabapentin 600 MG TAB 1200 MG PO (19:44)
[2022-11-27] MEDS: Atorvastatin 40 MG TAB 80 MG PO (19:44)
[2022-11-27] MEDS: Insulin Aspart 300 UNITS/3 ML PEN SC (21:50)
[2022-11-27] MEDS: Insulin Aspart 300 UNITS/3 ML PEN 10 UNITS SC (21:52)
[2022-11-27] MEDS: Prochlorperazine 10 MG/2 ML VIAL IVP (23:46)
[2022-11-28] MEDS: oxyCODONE 10 MG TAB 20 MG PO ×5 (03:48→23:58)
[2022-11-28] MEDS: HYDROmorphone 2 MG/ML VIAL 1 MG IVP ×4 (03:49→20:35)
[2022-11-28 03:51] VITALS: BP 99/64; PULSE 73; RESP 16; TEMP 36.7; O2SAT 95
[2022-11-28 06:05] LABS: Abs Immature Grans 0.06 10^3/uL (0.0-0.06); Absolute Basophil Count 0.05 10^3/uL (0.0-0.2); Absolute Eosinophil Count 0.94 10^3/uL (0.0-0.7); Absolute Lymphocyte Count 3.33 10^3/uL (1.2-3.4); Absolute Monocyte Count 1.06 10^3/uL (0.1-0.8); Absolute Neutrophil Count 5.04 10^3/uL (1.2-6.7); Basophils % 0.5; HCT 39.1 % (36.0-46.0); HGB 12.7 g/dL (11.2-15.7); Immature Grans % 0.6; Lymphocytes % 31.8; MCH 29.3 pg (27.0-33.0); MCHC 32.5 % (32.0-36.0); MCV 90 fL (80-95); Monocytes % 10.1; Platelet Count 350 10^3/uL (130-400); RBC 4.33 10^6/uL (3.93-5.22); RDW-SD 46.4 fL; WBC 10.48 10^3/uL (4.4-10.8)
[2022-11-28 06:25] LABS: Anion Gap 5.7 mmol/L (3-11); BUN 24 mg/dL (7-18); C-Reactive Protein 4.13 mg/dL (0.0-0.3); CO2 32.3 mmol/L (21.0-32.0); CREATININE 0.8 mg/dL (0.55-1.02); Calcium 9.2 mg/dL (8.5-10.1); Chloride 103 mmol/L (98-107); Glucose 158 mg/dL (74-106); Magnesium 2.3 mg/dL (1.8-2.4); Potassium 3.8 mmol/L (3.5-5.1); Sodium 141 mmol/L (136-145)
[2022-11-28 07:22] VITALS: BP 103/63; PULSE 73; RESP 16; TEMP 36.4; O2SAT 97
[2022-11-28] MEDS: Methadone Liquid 10 MG/ML 120 MG PO (07:59)
[2022-11-28] MEDS: Enoxaparin 40 MG/0.4 ML SYR SC (07:59)
[2022-11-28] MEDS: Nicotine 14 MG/24 HR PATCH TD (07:59)
[2022-11-28] MEDS: Carvedilol 3.125 MG TAB PO (08:00)
[2022-11-28] MEDS: Torsemide 20 MG TAB 40 MG PO (08:00)
[2022-11-28] MEDS: Fluticasone NASAL SPRAY 16 GM BTL NS (08:00)
[2022-11-28] MEDS: Cephalexin 250 MG CAP PO ×3 (08:00→20:21)
[2022-11-28] MEDS: Baclofen 10 MG TAB 5 MG PO ×3 (08:01→20:21)
[2022-11-28] MEDS: Citalopram 20 MG TAB PO (08:01)
[2022-11-28] MEDS: Aspirin 81 MG CHEW PO (08:01)
[2022-11-28] MEDS: Pantoprazole 40 MG TABCR PO ×2 (08:01→20:19)
[2022-11-28] MEDS: Potassium Chloride 20 MEQ TABCR PO ×2 (08:01→20:20)
[2022-11-28] MEDS: Empaglifozin 10 MG TAB PO (08:01)
[2022-11-28] MEDS: Baclofen 10 MG TAB PO ×3 (08:02→20:20)
[2022-11-28] MEDS: Clopidogrel 75 MG TAB PO (08:02)
[2022-11-28] MEDS: Acetaminophen 500 MG TAB PO ×4 (08:02→20:21)
[2022-11-28] MEDS: Gabapentin 600 MG TAB PO ×2 (08:02→11:14)
[2022-11-28] MEDS: Colchicine 0.6 MG TAB PO ×2 (08:03→20:19)
[2022-11-28] MEDS: levETIRAcetam 500 MG TAB PO ×2 (08:03→20:21)
[2022-11-28] MEDS: Patient's Own Medication 1 EACH MISC 1.8 EACH SC (08:06)
--- NOTE | 2022-11-28 08:23 | PT.INTREAT ---
Date of service: 11/27/22 PT Notes Visit Reasons: Loss of consciousness,Tib-Fib Fracture Inpatient Physical Therapy Treatment Note [facility] Date: 11/27/22 SUBJECTIVE: December states that she hurts worse today. She c/o lateral knee pain over incision, of which is red. I encouraged her not to use heat over this area. OBJECTIVE: [] BED MOBILITY/TRANSFERS Rolling L/R: I Supine-sit: I Sit-stand: CGA Stand-sit: SBA Bed-Chair: CGA GAIT Assistive Device:FWW Weight bearing: TDWB Assist:CGA Distance: approx 7' THEREX: AP x5, SAQ, LAQ x5 each, heel slides x5 and seated hip flex x5. ASSESSMENT: tolerated session well despite c/o pain. She was able to push through some of this, with cues for proper breathing techniques. PLAN: continue to progress her strength and functional mobility. TREATMENT CODE/TIME: 30 min, [id number], [id number].
[2022-11-28] MEDS: Budesonide/Formoterol 80/4.5 6.9 GM 60 PUFF INH IH ×2 (08:28→20:47)
[2022-11-28] MEDS: Normal Saline Flush 10 ML SYR IVP ×2 (08:48→12:37)
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
[2022-11-28 12:00] VITALS: BP 92/63; PULSE 72; RESP 16; TEMP 36.3; O2SAT 98
--- NOTE | 2022-11-28 12:07 | PT.INTREAT ---
Date of service: 11/28/22 Time of Service: 08:45 PT Notes Visit Reasons: Loss of consciousness,Tib-Fib Fracture Inpatient Physical Therapy Treatment Note [facility] Date: 11/28/2022 PRECAUTIONS: Fall, activity as tolerated, TDWB on R LE SUBJECTIVE: December is pleasant and agreeable to participating in PT this morning. She reports that she is having significant pain, which is the worst she has had since her surgery. OBJECTIVE: PAIN: Patient complained of significant R LE pain with all movement and activity, as well as at rest. BED MOBILITY/TRANSFERS Supine-sit: I Sit-stand: S Stand-sit: SBA Bed-chair: SBA GAIT Assistive Device: FWW Weight bearing: TDWB R LE Assist: SBA Distance: 10' Deviation: Maintains appropriate WB restrictions without cueing ASSESSMENT: Patient tolerated session with complaint of severe R LE pain with all movement and activity. She was able to demonstrate appropriate maintenance of WB restriction with use of FWW and SBA. PLAN: Continue with gait training and global strengthening for improved activity tolerance. TREATMENT CODE/TIME: Session 1: 24 minutes; 97482 x2 (10:06) Session 2: Patient was not able to participate in p.m. session due to decreased level of alertness
[2022-11-28 14:50] VITALS: BP 92/53; PULSE 72; RESP 18; TEMP 35.8; O2SAT 96
[2022-11-28] MEDS: Ketorolac 15 MG/ML VIAL IVP (18:01)
--- NOTE | 2022-11-28 19:11 | PGE_ITS ---
Date of Service Date of service: 11/28/22 Time of Service: 12:00 Assessment and Plan Assessment and plan (1) Closed fracture of right fibula and tibia: Status: Acute Assessment and plan: In setting of the unresponsive episode. Post Op Day #4. Continue prophylactic keflex for erythema. TTWB on RLE Continue PT, schedule oxycodone, prn IV dilaudid. Consider increasing dose of methadone - will discuss with [facility] tomorrow. Per our calculation, the patient is getting an equivalent of 20 more mg of methadone in her oxycodone and prn IV dilaudid combined. (2) Syncopal episodes: Status: Chronic Assessment and plan: Etiology unclear. Continue keppra. EEG negative on last admission. Needs to have a f/u sleep study. (3) QT prolongation: Status: Chronic Assessment and plan: Previously discussed with cardiology. Contiue methadone and citalopram. Avoid other QT prolonging agents. (4) Chronic systolic CHF (congestive heart failure): Status: Chronic Assessment and plan: Due to ICMO. LVEF 39%. Continue home regimen. Euvolemic. Avoid NSAIDs. Receiving 1 dose of toradol tonight due to uncontrolled pain. (5) Ischemic cardiomyopathy: Status: Acute Assessment and plan: As above Continue Aspirin and plavix. (6) Tobacco abuse disorder: Status: Acute Assessment and plan: Continue nicotine patch. (7) Type 2 diabetes mellitus: Status: Chronic Assessment and plan: A1c in October/2022 was 6.3. BGs much better. Continue victoza, treseba, jardiance, scheduled 10 units aspart w/ meals as at home. Continue resistant corrective insulin. Continue carb consistent diet. (8) Discharge planning issues: Status: Acute Assessment and plan: Full code. Refuses SNF. Care management was made aware of patient's safety concerns. Anticipate need for home health services tomorrow. Will speak with FLORINA about methadone dose adjustment. There was no doctor in house at [facility] today. (9) DVT prophylaxis: Status: Acute Assessment and plan: Sc enoxaparin Subjective Subjective Interval history since last seen: December states her R knee is hurting even more today. She agrees that it looks better. She states she hasn't been sleeping because of the pain. Denies dizziness, chest pain, shortness of breath. States she sometimes gets nauseated because of the pain. She is not constipated. Exam Narrative Exam Narrative: General: female who appears uncomfortable, A&Ox3, anxious HEENT: EOMI, MMM Heart: RRR, no m/r/g Lungs: CTAB Abdomen: soft, nontender, nondistended Extremities: no edema LLE; RLE in a boot;The incision is dressed - c/d/i; the area of erythema around medial, lateral and inferior borders of the dressing looks much better Objective Last Vital Signs Temp 35.8 C L 11/28/22 14:50 Pulse 72 11/28/22 14:50 Resp 18 11/28/22 14:50 BP 92/53 L 11/28/22 14:50 Pulse Ox 96 11/28/22 14:50 Laboratory Results - last 24 hr 11/27/22 11/28/22 11/28/22 06:17 05:29 05:29 WBC 10.48 RBC 4.33 Hgb 12.7 Hct 39.1 MCV 90 MCH 29.3 MCHC 32.5 RDW 14.0 Plt Count 350 MPV 10.0 Immature Gran % 0.6 Neutrophils % 48.0 Lymphocytes % 31.8 Monocytes % 10.1 Eosinophils % 9.0 Basophils % 0.5 Nucleated RBC % 0.0 Absolute Neutrophils 5.04 Absolute Lymphocytes 3.33 Absolute Monocytes 1.06 H Absolute Eosinophils 0.94 H Absolute Basophils 0.05 Sodium 141 Potassium 3.8 Chloride 103 Carbon Dioxide 32.3 H Anion Gap 5.7 BUN 24 H Creatinine 0.8 Est GFR (CKD-EPI 2020) 91.40 Glucose 158 H Calcium 9.2 Magnesium 2.3 C-Reactive Protein 4.13 H Add-On Test Request DONE Time Spent with Patient Time Spent with Patient: 35-49 minutes Time was spent: preparing to see the patient(eg.review tests), obtaining and/or reviewing separately otained hiistory, ordering medications,tests, procedures, referring, communicating with other health care transitions nurse, indepentently interpreting results, counseling the patient and care coordination
[2022-11-28 19:35] VITALS: BP 93/55; PULSE 71; RESP 18; TEMP 36.5; O2SAT 98
[2022-11-28] MEDS: Atorvastatin 40 MG TAB 80 MG PO (20:19)
[2022-11-28] MEDS: Gabapentin 600 MG TAB 1200 MG PO (20:20)
[2022-11-28] MEDS: Insulin Aspart 300 UNITS/3 ML PEN 10 UNITS SC (21:27)
[2022-11-28 23:29] VITALS: BP 111/55; PULSE 74; RESP 18; TEMP 36.9; O2SAT 96
[2022-11-29] MEDS: HYDROmorphone 2 MG/ML VIAL 1 MG IVP ×2 (00:17→11:07)
[2022-11-29] MEDS: Prochlorperazine 10 MG/2 ML VIAL IVP ×2 (01:27→20:56)
[2022-11-29] MEDS: oxyCODONE 10 MG TAB 20 MG PO ×6 (03:57→23:53)
[2022-11-29 04:01] VITALS: BP 98/56; PULSE 83; RESP 16; TEMP 37; O2SAT 96
[2022-11-29 06:42] LABS: Abs Immature Grans 0.06 10^3/uL (0.0-0.06); Absolute Basophil Count 0.05 10^3/uL (0.0-0.2); Absolute Eosinophil Count 0.91 10^3/uL (0.0-0.7); Absolute Lymphocyte Count 3.08 10^3/uL (1.2-3.4); Absolute Monocyte Count 0.92 10^3/uL (0.1-0.8); Absolute Neutrophil Count 5.19 10^3/uL (1.2-6.7); Basophils % 0.5; Eosinophils % 8.9; HCT 36.7 % (36.0-46.0); HGB 12.1 g/dL (11.2-15.7); Immature Grans % 0.6; Lymphocytes % 30.2; MCH 29.4 pg (27.0-33.0); MCV 89 fL (80-95); MPV 9.8 fL (8.0-11.0); Neutrophils % 50.8; Platelet Count 337 10^3/uL (130-400); RBC 4.12 10^6/uL (3.93-5.22); RDW 14.3 % (11.7-14.6); WBC 10.21 10^3/uL (4.4-10.8)
[2022-11-29 06:57] LABS: Anion Gap 5.9 mmol/L (3-11); BUN 29 mg/dL (7-18); CO2 34.1 mmol/L (21.0-32.0); Chloride 102 mmol/L (98-107); Estimated GFR 69.93 (mL/min/1.73m2); Glucose 143 mg/dL (74-106); Magnesium 2.3 mg/dL (1.8-2.4); Potassium 3.7 mmol/L (3.5-5.1); Sodium 142 mmol/L (136-145)
[2022-11-29 07:00] VITALS: BP 92/56; PULSE 90; RESP 18; TEMP 36.4; O2SAT 95
[2022-11-29 07:19] LABS: Procalcitonin < 0.1 ng/mL
[2022-11-29] MEDS: Budesonide/Formoterol 80/4.5 6.9 GM 60 PUFF INH IH ×2 (08:54→20:00)
[2022-11-29] MEDS: Cephalexin 250 MG CAP PO ×3 (09:21→20:00)
[2022-11-29] MEDS: Acetaminophen 500 MG TAB PO ×4 (09:21→20:00)
[2022-11-29] MEDS: Gabapentin 600 MG TAB PO ×2 (09:21→12:27)
[2022-11-29] MEDS: Aspirin 81 MG CHEW PO (09:22)
[2022-11-29] MEDS: Citalopram 20 MG TAB PO (09:22)
[2022-11-29] MEDS: Colchicine 0.6 MG TAB PO ×2 (09:22→19:59)
[2022-11-29] MEDS: Clopidogrel 75 MG TAB PO (09:22)
[2022-11-29] MEDS: Nicotine 14 MG/24 HR PATCH TD (09:23)
[2022-11-29] MEDS: levETIRAcetam 500 MG TAB PO ×2 (09:23→20:00)
[2022-11-29] MEDS: Potassium Chloride 20 MEQ TABCR PO ×2 (09:23→20:00)
[2022-11-29] MEDS: Pantoprazole 40 MG TABCR PO ×2 (09:24→20:00)
[2022-11-29] MEDS: Torsemide 20 MG TAB 40 MG PO (09:25)
[2022-11-29] MEDS: Empaglifozin 10 MG TAB PO (09:25)
[2022-11-29] MEDS: Enoxaparin 40 MG/0.4 ML SYR SC (09:26)
[2022-11-29] MEDS: Baclofen 10 MG TAB PO ×3 (09:26→19:59)
[2022-11-29] MEDS: Patient's Own Medication 1 EACH MISC 1.8 EACH SC (09:32)
[2022-11-29] MEDS: Fluticasone NASAL SPRAY 16 GM BTL NS (09:46)
--- NOTE | 2022-11-29 09:56 | PDOC.CMPRO ---
- If Service Date Differs Date of service: 11/29/22 Time of Service: 09:56 Care Management Progress Note S/O: Aracelis was sitting up in a chair when CM met with her. She stated that her leg was really painful this morning and she had asked PT to defer her therapy until later. CM contacted Dr. Puga at [facility] at the request of the provider, to see if it would be possible to increase Aracelis's methadone for pain control as opposed to adding an opiate to her regimen. Unfortunately, Dr. Puga explained that this could not be done as she can only dose her for the substance use issue that it was originally prescribed for. She did acknowledge that Aracelis has real pain from the fracture and that she would not be penalized if prescribed narcotics temporarily. The plan was to discharge Aracelis home today but when told she was being discharged, she stated that she has no place to go. She has her own home in [place] where she lives with 3 of her children and recently has been staying with her son in [place], so it is not that she is homeless. Reportedly all of her children are unavailable and/or not at home today. She stated that she has no keys to any of the homes. Aracelis does not have any contacts listed in her chart and declined to provide her son's phone number, so CM was unable to contact anyone to assist. A: Aracelis is a 47 year old woman admitted on 11/23/22 with a tib/fib fracture P: Aracelis will likely be discharged home, possibly with new home health services, when medically cleared by provider. She will follow up with orthopedics as well as her PCP and discharge plan of care. Aracelis will need a last dose letter for [facility] when she is discharged. CM will follow and assess for ongoing discharge concerns.
[2022-11-29] MEDS: Methadone Liquid 10 MG/ML 120 MG PO (09:57)
[2022-11-29] MEDS: Normal Saline Flush 10 ML SYR IVP ×3 (11:07→16:53)
[2022-11-29 11:32] VITALS: BP 94/62; PULSE 94; RESP 18; TEMP 36.2; O2SAT 96
--- NOTE | 2022-11-29 11:46 | PT.INNT ---
Date of service: 11/29/22 Time of Service: 11:46 PT Notes Visit Reasons: Loss of consciousness,Tib-Fib Fracture 11/29/2022 Patient refused morning PT session due to pain in R LE. She is observed sitting up in chair, reporting that she just transferred with nursing. Will attempt to resume PT services later today.
[2022-11-29] MEDS: Insulin Aspart 300 UNITS/3 ML PEN SC ×3 (12:04→21:09)
--- NOTE | 2022-11-29 14:15 | CHAPLAIN ---
Aracelis was in bed when I visited. She is said she has some pain. She is worried about her mom who is going to cardiac clinical laboratory technologist today at [facility], and December when she was in the clinical laboratory technologist at [facility] years ago, her heart stopped. She is waiting to hear how her mom is. According to Care Management notes, Aracelis is likely to go home in the next day or so. Aracelis said she doesn't know exactly what the plan is yet. She was pleased that the surgery she had on her leg did not affect her Grateful tattoo.
--- NOTE | 2022-11-29 14:16 | W.PM.DS.N ---
Date of service: 11/29/22 Time of Service: 15:23 DS: Diagnosis Discharge Diagnosis (1) Closed fracture of right fibula and tibia: Status: Acute (2) Recurrent episodes of unresponsiveness: Status: Acute (3) QT prolongation: Status: Chronic (4) Chronic systolic CHF (congestive heart failure): Status: Chronic (5) Ischemic cardiomyopathy: Status: Acute (6) Tobacco abuse disorder: Status: Acute (7) Type 2 diabetes mellitus: Status: Chronic (8) Opioid dependence: Status: Chronic Discharge Plan Disposition Patient Disposition: Home W/Home Health Services Condition: Improving Discharge Details Reason For Visit: Loss of consciousness,Tib-Fib Fracture Admit Date/Time: 11/23/22 12:49 Admit Provider: Husam Lion Attending Provider: Husam Lion Primary Care Provider: Valentin Parekh Hospital Course Hospital Course: Ms Monique is a 47 year old female with PMHx of unresponsive episodes of unclear etiology, chronic opioid dependence on methadone therapy through [facility], ICMO/chronic systolic CHF, IDDM2, who was admitted to [facility] hospitalist service on 11/23/22 having fractured her R tib/fib as a result of reportedly another one of the unresponsive events. She underwent R intramedullary fixation of the tibia fracture by Dr Wisdom on 11/24/22. Post-operatively, pain control was a challenge. The patient was initiated on IV dilaudid and transitioned to PO oxycodone with still occasional use of prn IV dilaudid, introduction of baclofen, heat/ice, continuation of neurontin. We also did add a short course of toradol with plans to transition to ibuprofen on discharge - again, short term. The patient has been on tylenol as well. We discussed her pain management regimen with [facility]. The prescribing provider there did not feel comfortable increasing the dose of methadone as methadone is being used for treatment of opioid dependence and not for pain management in her case. A fracture walker boot is being used to help with pain control for mobilization. Mepilex dressing should stay in place for at least 1 week. We did notice mild erythema around the dressing and added keflex to her regimen with significant improvement of the erythema. This was done more prophylactically due to challenges with glucose control for a part of her hospitalization rather than because a true infection was suspected. A week of keflex is being prescribed on discharge. The patient is being discharged home with new home health PT, nursing, [employer] as she has refused SNF placement. The patient did express some safety concerns in regards to her ex-spouse being released from a correctional facility with her hears for her life. She was referred to [facility] and has an appointment with them. Care for patient as well as completion of her discharge summary today took 45 minutes. Home Meds and New Rx's Prescriptions: New cephalexin 250 mg Capsule 250 mg PO TID Qty: 21 0RF carvedilol 3.125 mg Tablet 3.125 mg PO BID Qty: 60 0RF baclofen 10 mg Tablet 10 mg PO TID Qty: 30 0RF oxycodone 20 mg tablet 20 mg PO Q4H MDD 120 mg PRN (Reason: pain) Qty: 18 0RF ibuprofen 600 mg tablet 600 mg PO TID PRNQty: 30 0RF Continued acetaminophen 325 mg capsule 975 mg PO Q8H PRN atorvastatin [Lipitor] 80 mg tablet 80 mg PO DAILY clopidogrel [Plavix] 75 mg tablet 75 mg PO DAILY ferrous sulfate 325 mg (65 mg iron) tablet,delayed release (DR/EC) 325 mg PO Q OTHER DAY Tresiba FlexTouch U-200 200 unit/mL (3 mL) insulin pen 120 unit subcut DAILY magnesium oxide [MagOx] 400 mg (241.3 mg magnesium) tablet 400 mg PO BID nitroglycerin [Nitrostat] 0.4 mg tablet, sublingual 0.4 mg sublingual Q5M PRN Rx Instructions: do not exceed 3 doses per episode albuterol sulfate 2.5 mg /3 mL (0.083 %) solution for nebulization 2.5 mg inhalation Q6H PRN insulin lispro [Humalog KwikPen Insulin] 100 unit/mL insulin pen 10 unit subcut QID metoprolol succinate [Toprol XL] 25 mg tablet extended release 24 hr 25 mg PO DAILY Patient Comments: TAKE ONE TABLET BY MOUTH EVERY DAY pantoprazole [Protonix] 40 mg tablet,delayed release (DR/EC) 40 mg PO BID Qty: 60 0RF naloxone [Narcan] 4 mg/actuation spray,non-aerosol 4 mg intranasal Q2-3M PRNQty: 2 0RF Rx Instructions: spray 1 dose into ONE nostril; alternate nostrils w each dose until help arrives methadone 10 mg/5 mL Solution 120 mg PO DAILY gabapentin 600 mg Tablet 600 mg PO DIRECTED Qty: 20 0RF Rx Instructions: 600 mg PO q am and at noon; 1200 mg PO Qpm carboxymethylcellulose sodium [Refresh Plus] 0.5 % Dropperette 1 drp OU QID Qty: 50 0RF potassium chloride 10 mEq capsule, extended release 10 meq PO DAILY Patient Comments: TAKE ONE CAPSULE BY MOUTH EVERY DAY torsemide 20 mg tablet 40 mg PO DAILY Patient Comments: TAKE ONE TABLET BY MOUTH EVERY DAY cetirizine [Zyrtec] 10 mg tablet 10 mg PO DAILY PRN PRN (Reason: Allergy Symptoms) Patient Comments: TAKE ONE TABLET BY MOUTH EVERY DAY NEEDED aspirin [Adult Low Dose Aspirin] 81 mg tablet,delayed release (DR/EC) 81 mg PO DAILY Patient Comments: TAKE ONE TABLET BY MOUTH EVERY DAY citalopram [Celexa] 20 mg tablet 20 mg PO DAILY Patient Comments: TAKE ONE TABLET BY MOUTH EVERY DAY benzonatate 100 mg capsule 100 mg PO TID PRN PRN (Reason: Cough) Patient Comments: TAKE ONE CAPSULE BY MOUTH THREE TIMES A DAY NEEDED folic acid 1 mg tablet 1 mg PO DAILY Patient Comments: TAKE ONE TABLET BY MOUTH EVERY DAY albuterol sulfate [ProAir HFA] 90 mcg/actuation HFA aerosol inhaler 2 inh INHALATION Q3H PRN PRN (Reason: Shortness Of Breath Or Wheezing) Patient Comments: INHALE TWO PUFFS BY MOUTH EVERY 3 HOURS NEEDED colchicine [Colcrys] 0.6 mg tablet 0.6 mg PO BID Patient Comments: TAKE ONE TABLET BY MOUTH TWICE A DAY Advair HFA 45-21 mcg/actuation HFA aerosol inhaler 2 inh INHALATION BID Patient Comments: INHALE TWO PUFFS BY MOUTH TWICE A DAY Jardiance 10 mg tablet 10 mg PO DAILY Patient Comments: TAKE ONE TABLET BY MOUTH EVERY DAY levetiracetam 500 mg Tablet 500 mg PO BID Qty: 60 0RF potassium chloride 20 mEq tablet,ER particles/crystals 20 meq PO BID Qty: 10 0RF Changed Victoza 3-Tanmay 0.6 mg/0.1 mL (18 mg/3 mL) pen injector 1.8 mg SUBCUT DAILY Qty: 0 0RF Patient Comments: INJECT 0.6 MG UNDER THE SKIN ONCE DAILY TITRATE UP TOLERATED TO 1.2 MG DAILY, THEN MAINTAINANCE AT 1.8 MG DAILY Discharge Instructions Additional Instructions: Return to the hospital with any fever, bleeding, chest pain, shortness of breath. Follow up with our PCP In 1-2 weeks. Follow up with Dr Wisdom in 4 weeks. Follow up with umbrella. Ambulate with the use of a walker and a boot. Tibial Nail Discharge Instructions Activity: You may weight bear as tolerated with the walker boot. You should offload the leg with crutches/walker. You should keep the leg elevated as much as possible. You may wiggle your toes and move your hip and knee. You should wear the fracture walking boot when you are up and mobilizing, but may remove it when not and move your ankle as tolerated. Dressings: You should keep the Mepilex dressing on for at least 5 days. You should keep it covered with a light gauze dressing or wrap or bandaid until follow-up. You should avoid soaking the dressings but you may take a shower. Follow-up: 4 weeks Care Plan Goals: Home with new home health nursing, PT, [employer]. Referrals: Antonia Bertrand [ NON-[facility] STAFF PHYSICIAN] - Stevenson Wisdom MD [ [facility] STAFF PHYSICIAN] - Activity:: Activity as Tolerated Equipment/Supplies:: Walker Diet:: As Tolerated DS: Summary Time Spent with Patient providing and/or coordinating discharge services: Greater than 30 minutes Status at Discharge Functional status at discharge: uses cane/walker Overall status at discharge: patient is progressing back to baseline Mental Status: mental status grossly normal Speech and Movement: speech and movement normal Mood: anxious mood Affect: anxious affect Exam Narrative Exam Narrative: General: female who appears more comfortable today, A&Ox3, anxious HEENT: EOMI, MMM Heart: RRR, no m/r/g Lungs: CTAB Abdomen: soft, nontender, nondistended Extremities: no edema LLE; RLE in a boot;The incision is dressed - c/d/i; the area of erythema around medial, lateral and inferior borders of the dressing much improved Psych Mental Status: mental status grossly normal Speech and Movement: speech and movement normal Mood: anxious mood Affect: anxious affect DS: Data Vitals/I&O Vitals and I&O: Vital Signs Temperature 36.2 C L 11/29/22 11:32 Temperature Source Temporal Artery Scan 11/29/22 11:32 Pulse 94 H 11/29/22 11:32 Pulse Rhythm Regular 11/29/22 07:47 Pulse 69 11/23/22 13:40 Respiratory Rate 18 11/29/22 11:32 Respiratory Effort Normal, Non-Labored 11/29/22 07:47 Respiratory Depth Normal 11/29/22 07:47 Respiratory Pattern Normal 11/29/22 07:47 Blood Pressure 94/62 L 11/29/22 11:32 Blood Pressure Mean 68 11/23/22 13:38 Blood Pressure Position Supine 11/23/22 10:17 Pulse Oximetry 96 11/29/22 11:32 Respiratory End-tidal CO2 45 11/24/22 17:22 Oxygen Delivery Method Nasal Cannula 11/29/22 11:32 Oxygen Flow Rate 2 11/29/22 08:57 Fraction of Inspired Oxygen (FIO2) 97 11/29/22 08:57 Pain Level 8 11/29/22 11:32 Comment BP called over radio 11/28/22 14:50 Intake & Output 11/28/22 11/29/22 11/29/22 23:59 11:59 23:59 Intake Total 600 / 600 240 / 240 Output Total 2300 / 3500 1700 / 2400 700 / 2400 Balance -1700 / -2900 -1460 / -2160 -700 / -2160 Intake: Oral 600 / 600 240 / 240 Output: Urine 2300 / 3500 1700 / 2400 700 / 2400 Other: Urine Color Yellow Yellow Yellow Urine Appearance Clear Clear Clear Urine Odor None Comment mixed with stool Stool Size Small Moderate Stool Characteristics Soft Soft Formed Formed Grier Voiding Methods Bedside Commode Bedside Commode Data Completed and Pending Completed studies during hospitalization [Text1]: XR R tib/fib: 1. Acute proximal and distal fractures of the right fibula. 2. Acute fracture of the right tibia as described above.? Labs on day of discharge: Labs from last 24 hours 11/29/22 11/29/22 11/29/22 06:21 06:21 06:21 WBC 10.21 RBC 4.12 Hgb 12.1 Hct 36.7 MCV 89 MCH 29.4 MCHC 33.0 RDW 14.3 Plt Count 337 MPV 9.8 Immature Gran % 0.6 Neutrophils % 50.8 Lymphocytes % 30.2 Monocytes % 9.0 Eosinophils % 8.9 Basophils % 0.5 Nucleated RBC % 0.0 Absolute Neutrophils 5.19 Absolute Lymphocytes 3.08 Absolute Monocytes 0.92 H Absolute Eosinophils 0.91 H Absolute Basophils 0.05 Sodium 142 Potassium 3.7 Chloride 102 Carbon Dioxide 34.1 H Anion Gap 5.9 BUN 29 H Creatinine 1.0 Est GFR (CKD-EPI 2020) 69.93 Glucose 143 H Calcium 9.0 Magnesium 2.3 C-Reactive Protein 3.60 H Procalcitonin < 0.1 PFSH All Active Problems (Updated 11/29/22 @ 15:25 by Brii Baeza MD) Opioid dependence (Chronic) Recurrent episodes of unresponsiveness (Acute) DVT prophylaxis (Acute) Discharge planning issues (Acute) Syncope (Chronic) Closed fracture of right fibula and tibia (Acute) Closed fracture of shaft of right tibia and fibula (Acute 11/23/22) s/p IMN of Right Tibia - 11/24/22 Dizziness (Acute) Syncopal episodes (Chronic) Vomiting (Acute) QT prolongation (Chronic) Nonspecific paroxysmal spell (Acute) Episode of unresponsiveness (Acute) Chronic systolic CHF (congestive heart failure) (Chronic) Ischemic cardiomyopathy (Acute) Obstructive sleep apnea (Chronic) Hallucinations (Acute) Chronic respiratory failure with hypoxia (Chronic) Fracture of finger, left (Acute) Syncopal episodes (Chronic) Acute hypokalemia (Acute) Observed seizure-like activity (Acute) Opioid dependence on agonist therapy (Acute) Leg wound, left (Acute) Facial palsy (Acute) Pulmonary HTN (Acute) Heart failure (Acute) 09/02/21 with DC low EF Non-STEMI (non-ST elevated myocardial infarction) (Acute) 09/02/21 Vertigo (Acute) GERD (gastroesophageal reflux disease) (Chronic) Essential hypertension (Acute) Asthma (Chronic) Depression (Chronic) PTSD (post-traumatic stress disorder) (Acute) Tobacco abuse disorder (Acute) Hypokalemia (Acute) Chronic gout (Acute) Hyperlipidemia (Acute) Diabetic peripheral neuropathy (Acute) Type 2 diabetes mellitus (Chronic) Medical History COVID was vaccinated but contracted Covid 06/22 History of gastrointestinal ulcer Surgical History H/O bone graft left knee H/O shoulder surgery x4 and ending with a full replacement H/O total hysterectomy History of appendectomy History of colonoscopy History of esophagogastroduodenoscopy (EGD) gastritis with gastric ulcers Previous section x4 delivery Family History Mother Cancer Heart disease Obstructive lung disease Depression Arthritis Degeneration of intervertebral disc Father Alcohol use disorder Brother Hypertension Mood disorder Maternal Grandfather Alcohol use disorder Maternal Grandmother Breast cancer Maternal Aunt Breast cancer Paternal Aunt Breast cancer Social History Smoking/Tobacco Use Status: Current every day Tobacco Type: cigarettes Tobacco: How many years used: 34 Smoking risk assessment performed?: Yes Alcohol Intake: current Alcohol Intake frequency: holidays/special occasions only Alcohol type: beer Drug use: Never Substance use type: does not use Do you feel safe at home: Yes Do you feel safe in your relationship?: Yes Time Spent with Patient Time Spent with Patient: 45-69 minutes Time was spent: preparing to see the patient(eg.review tests), obtaining and/or reviewing separately otained hiistory, ordering medications,tests, procedures, referring, communicating with other health auto care center manager, indepentently interpreting results, counseling the patient and care coordination
--- NOTE | 2022-11-29 14:17 | PDOC.HHF2F ---
Home Health Referral Home Health Orders Clinical synopsis of why skilled professionals are needed: Ms Monique is a 47 year old female with PMHx of unresponsive episodes of unclear etiology, chronic opioid dependence on methadone therapy through [facility], ICMO/chronic systolic CHF, IDDM2, who was admitted to [facility] hospitalist service on 11/23/22 having fractured her R tib/fib as a result of reportedly another one of the unresponsive events. She underwent R intramedullary fixation of the tibia fracture by Dr Wisdom on 11/24/22. Post-operatively, pain control was a challenge. The patient was initiated on IV dilaudid and transitioned to PO oxycodone with still occasional use of prn IV dilaudid, introduction of baclofen, heat/ice, continuation of neurontin. We also did add a short course of toradol with plans to transition to ibuprofen on discharge - again, short term. The patient has been on tylenol as well. We discussed her pain management regimen with [facility]. The prescribing provider there did not feel comfortable increasing the dose of methadone as methadone is being used for treatment of opioid dependence and not for pain management in her case. A fracture walker boot is being used to help with pain control for mobilization. Mepilex dressing should stay in place for at least 1 week. We did notice mild erythema around the dressing and added keflex to her regimen with significant improvement of the erythema. This was done more prophylactically due to challenges with glucose control for a part of her hospitalization rather than because a true infection was suspected. A week of keflex is being prescribed on discharge. 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 The patient did express some safety concerns in regards to her ex-spouse being released from a correctional facility with her hears for her life. She was referred to [facility] and has an appointment with them. Medical diagnosis necessitation home health referral: R tib fib fracture, ICMO/chronic systolic CHF, chronic hypoxic respiratory failure, IDDM2, frequent falls/episodes of unresponsiveness Registered Nurse: Check all that apply Instruct on new or changed medication(s)/assess compliance: Ordered Physical Therapist: Check all that apply Increase strength & endurance for safe mobility at home: Ordered To design/establish home maintenance program: Ordered Fall reduction therapy program for patient with history of frequent falls: Ordered Home safety evaluation and teaching/gait training including stair management (if applicable): Ordered Associate Relations Specialist: Assist with community resources: Ordered Home Bound Status Requires the aid of supportive device (check all that apply): Walker Assistance of another person (Describe assistance and medical necessity): Patient is unable to drive due to frequent episodes of unresponsiveness Describe why leaving home would require a considerable and taxing effort: Side effects from pain medication (sedation/drowsiness), Requires frequent rest periods and Oxygen Encounter Date and Reason: I certify that a FTF encounter for this patient was performed on November 29, 2022 and that such encounter was related to the primary reason the patient requires home health services. The encounter was conducted in the following manner: By me as the certifying physician, RESEARCH ASSOCIATE QUALITY CONTROL QC, PA or By an inpatient physician, RESEARCH ASSOCIATE QUALITY CONTROL QC or PA during an inpatient stay who communicated findings to me, Certification And Authentication I certify that I composed the above information based on my clinical judgment relating to this patient's medical condition and, if applicable, clinical findings communicated to me by the NPP or inpatient physician who performed the FTF encounter. Name of Provider that will be monitoring home health services: Antonia Bertrand
[2022-11-29 15:25] VITALS: BP 119/75; PULSE 96; RESP 18; TEMP 36.6; O2SAT 95
[2022-11-29] MEDS: HYDROmorphone 2 MG/ML SYR 1 MG IVP (16:52)
[2022-11-29 19:16] VITALS: BP 120/75; PULSE 94; RESP 16; TEMP 36.7; O2SAT 96
[2022-11-29] MEDS: Carvedilol 3.125 MG TAB PO (19:59)
[2022-11-29] MEDS: Gabapentin 600 MG TAB 1200 MG PO (20:00)
[2022-11-29] MEDS: Atorvastatin 40 MG TAB 80 MG PO (20:00)
[2022-11-29] MEDS: Insulin Aspart 300 UNITS/3 ML PEN 10 UNITS SC (21:09)
[2022-11-29 23:52] VITALS: BP 99/65; PULSE 78; RESP 16; TEMP 36.5; O2SAT 92
[2022-11-30 03:33] VITALS: BP 115/70; PULSE 82; RESP 18; TEMP 36.9; O2SAT 98
[2022-11-30] MEDS: oxyCODONE 10 MG TAB 20 MG PO ×2 (03:49→07:47)
[2022-11-30] MEDS: Prochlorperazine 10 MG/2 ML VIAL IVP ×2 (04:03→08:48)
[2022-11-30] MEDS: Budesonide/Formoterol 80/4.5 6.9 GM 60 PUFF INH IH (07:33)
[2022-11-30] MEDS: Methadone Liquid 10 MG/ML 120 MG PO (07:48)
[2022-11-30] MEDS: Aspirin 81 MG CHEW PO (07:49)
[2022-11-30] MEDS: Baclofen 10 MG TAB PO (07:49)
[2022-11-30] MEDS: Torsemide 20 MG TAB 40 MG PO (07:49)
[2022-11-30] MEDS: Cephalexin 250 MG CAP PO (07:49)
[2022-11-30] MEDS: levETIRAcetam 500 MG TAB PO (07:51)
[2022-11-30] MEDS: Colchicine 0.6 MG TAB PO (07:51)
[2022-11-30] MEDS: Clopidogrel 75 MG TAB PO (07:52)
[2022-11-30] MEDS: Acetaminophen 500 MG TAB PO (07:52)
[2022-11-30] MEDS: Citalopram 20 MG TAB PO (07:52)
[2022-11-30] MEDS: Pantoprazole 40 MG TABCR PO (07:53)
[2022-11-30] MEDS: Carvedilol 3.125 MG TAB PO (07:53)
[2022-11-30] MEDS: Potassium Chloride 20 MEQ TABCR PO (07:53)
[2022-11-30] MEDS: Nicotine 14 MG/24 HR PATCH TD (07:54)
[2022-11-30] MEDS: Enoxaparin 40 MG/0.4 ML SYR SC (07:54)
[2022-11-30] MEDS: Gabapentin 600 MG TAB PO (08:01)
[2022-11-30] MEDS: Empaglifozin 10 MG TAB PO (08:01)
[2022-11-30 08:02] VITALS: BP 101/65; PULSE 86; RESP 19; TEMP 36.6; O2SAT 92
[2022-11-30] MEDS: Patient's Own Medication 1 EACH MISC 1.8 EACH SC (08:03)
[2022-11-30] MEDS: Insulin Aspart 300 UNITS/3 ML PEN SC (08:06)
--- NOTE | 2022-11-30 08:40 | CMDISCH_ITS ---
- If Service Date Differs Date of service: 11/30/22 Time of Service: 08:40 LACE Index Scoring Tool - Questions: Length of Stay (in days): 7 - 13 Acuity (Admit via E.D.?): Yes Comorbidities: Previous M.I., Diabetes w/o Complication, Congestive Heart Failure, Chronic Pulmonary Disease E.D. Visits: 7 - Answers: Total Score: 17 Risk of Readmission: High Risk Care Management Discharge Reason for Hospitalization: Fracture right tibia/fibula Discharge Plan: Aracelis will be discharged home with new home health services, when medically cleared by provider. She will follow up with orthopedics as well as her PCP and discharge plan of care. Aracelis was given a last dose letter for [facility] in [facility] to resume her program. She will transport with family. Patient/Family Education Needs: Review of discharge instructions, limitations, activity, follow up plan, discuss Ask Me Three.
[2022-11-30] MEDS: Fluticasone NASAL SPRAY 16 GM BTL NS (08:41)
[2022-11-30] MEDS: Normal Saline Flush 10 ML SYR IVP (08:48)
--- NOTE | 2022-11-30 09:32 | PT.INDS ---
PT Notes Visit Reasons: Loss of consciousness,Tib-Fib Fracture Inpatient Physical Therapy Discharge Summary Date: 11/30/22 Dates of Service: 11/25/22 through 11/29/22 This is a clinical summary of care provided for the duration of dates listed above. No charge was made in the completion of this documentation. Referring Doctor: Stevenson Wisdom MD PT Orders: PT CONSULT: s/p ortho surgery - IMN fixation of right tibia fracture Precautions: Fall. Standard. R LE TTWB for 2 weeks. CAM walking boot. Patient Profile/Admitting Diagnosis:?Aracelis is 47 yo female that presented to the ER on 11/24/22 for right leg pain after syncopal episode and fall. She is POD 1 and underwent surgery for right IMN fixation of right tibia fracture. Patient has multiple co-morbidities and medical complications. Patient required service of physical therapy inpatient service to help with bed mobility, transfers, and ambulation under weightbearing precautions with AD. Functional mobility at time of discharge: BED MOBILITY/TRANSFERS? Supine-sit: I Sit-stand: S ? Stand-sit: SBA Bed-chair: SBA? GAIT? Assistive Device: FWW? Weight bearing: TDWB R LE Assist: SBA ? Distance: 10' ? Deviation: Maintains appropriate WB restrictions without cueing Assessment: Patient discharged by attending physician to home with services. Goals: Goals x1 week 1. Supine-Sit: independent - Met 2. Sit-Supine: independent - Met 3. Sit-Stand: independent - Met 4. Stand-Sit: independent - Met 5. Bed-Chair: independent - Met 6. Chair-Bed: independent - Met 7. Independent gait on level surface with use of least restrictive device for at least 300 feet without report of pain nor dyspnea - Not met 8. Good static and dynamic standing balance/tolerance - Not met 9. Independent with home exercise program - Not met 10. Independent stair negotiation while holding onto bilateral rails for at least 10 steps without report of pain nor dyspnea - Not met Discharge Recommendation: SNF Please refer to patient physical therapy initial evaluation, treatment and/or progress notes for a summary of physical therapy care provided through dates of service listed above.
== END 2022-11-30 09:28 | disposition home health service (06) | DRG 493 ==
LOC: ER 13:55 → MS 13:57
PROVIDERS: Internal Medicine; Student in an Organized Health Care Education/Training Program; Admitting Provider Family Medicine; Emergency Provider Student in an Organized Health Care Education/Training Program; PCP Family Medicine; Visit Provider Family Medicine
PROC: 0QSG06Z Reposition Right Tibia with Intramedullary Internal Fixation Device, Open Approach (ICD-10-PCS; CPT 27759; principal; 2022-11-24 12:45)
DX: S82.231A Displaced oblique fracture of shaft of right tibia, initial encounter for closed fracture (principal); F11.20 Opioid dependence, uncomplicated; J96.11 Chronic respiratory failure with hypoxia; I50.22 Chronic systolic (congestive) heart failure; S82.831A Other fracture of upper and lower end of right fibula, initial encounter for closed fracture; R55 Syncope and collapse; I25.5 Ischemic cardiomyopathy; G47.33 Obstructive sleep apnea (adult) (pediatric); W19.XXXA Unspecified fall, initial encounter; I25.10 Atherosclerotic heart disease of native coronary artery without angina pectoris; Z99.81 Dependence on supplemental oxygen; Z79.4 Long term (current) use of insulin; Z79.84 Long term (current) use of oral hypoglycemic drugs; I45.81 Long QT syndrome; E87.6 Hypokalemia; I27.20 Pulmonary hypertension, unspecified; I25.2 Old myocardial infarction; I11.0 Hypertensive heart disease with heart failure; J45.909 Unspecified asthma, uncomplicated; F43.10 Post-traumatic stress disorder, unspecified; F17.210 Nicotine dependence, cigarettes, uncomplicated; M1A.9XX0 Chronic gout, unspecified, without tophus (tophi); K21.9 Gastro-esophageal reflux disease without esophagitis; F32.A Depression, unspecified; E78.5 Hyperlipidemia, unspecified; E11.42 Type 2 diabetes mellitus with diabetic polyneuropathy; G89.29 Other chronic pain; Z96.612 Presence of left artificial shoulder joint; E11.65 Type 2 diabetes mellitus with hyperglycemia; G89.18 Other acute postprocedural pain; M79.604 Pain in right leg
CPT/HCPCS: 27759; 29515; 36415; 36416; 76000; 80048; 80053; 80307; 82947; 82962; 84145; 85027; 87635; 93005; 94640; 97110; 97162; 97530; 99223; 99285; J1650; 73590; 83735; 84484; 85025; 86140; 93010; 94660; 94664; 99232; 99233; 99239; J0131; J0690; J0780; J1100; J1170; J1885; J2250; J2405; J2704; J3010

== ENCOUNTER 2022-12-05 09:00 | Outpatient (CLI) | payer MEDICARE, MEDICAID, SELFPAY ==
--- NOTE | 2022-12-05 12:30 | W.CARDEVENT ---
Date of service: 12/05/22 Time of Service: 12:31 Cardiac Event Recorder Referring Provider:: Brii Baeza Indications:: Syncope Cardiac Event Note: This is a cardiac event recorder. Patient was monitored for 7 days and 13 hours. Rhythm throughout with sinus with an average heart rate of 83. Maximum was 105. There was no bradycardia There was no atrial fibrillation, no SVT no high-grade AV block, no pauses greater than 3 seconds There were no apparent patient symptoms
== END 2022-12-05 09:01 | disposition home or self-care (01) ==
LOC: CARDOPNVT 09:00
PROVIDERS: PCP Nurse Practitioner Family; Visit Provider Internal Medicine Cardiovascular Disease
DX: R55 Syncope and collapse (principal)
CPT/HCPCS: 93272

== ENCOUNTER → 2022-12-15 09:11 | Outpatient (BNVA) | payer MEDICARE, MEDICAID, SELFPAY | PROVIDERS: PCP Nurse Practitioner Family; Referring Provider Family Medicine; Visit Provider Psychiatry & Neurology Neurology | DX: R40.4 Transient alteration of awareness (principal); R44.3 Hallucinations, unspecified; G47.33 Obstructive sleep apnea (adult) (pediatric); R41.89 Other symptoms and signs involving cognitive functions and awareness; F19.10 Other psychoactive substance abuse, uncomplicated; I50.9 Heart failure, unspecified | CPT/HCPCS: 99215 ==

== ENCOUNTER 2022-12-16 11:34 | Emergency (ER) | payer MEDICARE, MEDICAID, SELFPAY ==
[2022-12-16 11:42] VITALS: BP 101/67; PULSE 88; RESP 18; TEMP 36.7; O2SAT 95
--- NOTE | 2022-12-16 11:51 | ED.GENADUL_ITS ---
Discharge Plan Disposition Patient Disposition: Home Condition: Stable Discharge Details Clinical Impression: Encounter for postoperative wound check Primary Care Provider: Antonia Bertrand ED Provider: Marleny Avila Home Meds and New Rx's Prescriptions: New cefadroxil 500 mg capsule 500 mg PO BID Qty: 28 0RF oxycodone 5 mg tablet 5 mg PO Q8H PRN (Reason: Pain, Severe) Qty: 15 0RF baclofen 10 mg tablet 10 mg PO TID PRNQty: 30 0RF Continued gabapentin 600 mg tablet 600 mg PO DIRECTED Rx Instructions: 600 mg PO q am and at noon; 1200 mg PO Qpm levetiracetam 1,000 mg tablet 1,000 mg PO Q12H Qty: 60 5RF acetaminophen 325 mg capsule 975 mg PO Q8H PRN atorvastatin [Lipitor] 80 mg tablet 80 mg PO DAILY clopidogrel [Plavix] 75 mg tablet 75 mg PO DAILY Tresiba FlexTouch U-200 200 unit/mL (3 mL) insulin pen 120 unit subcut DAILY magnesium oxide [MagOx] 400 mg (241.3 mg magnesium) tablet 400 mg PO BID nitroglycerin [Nitrostat] 0.4 mg tablet, sublingual 0.4 mg sublingual Q5M PRN Rx Instructions: do not exceed 3 doses per episode albuterol sulfate 2.5 mg /3 mL (0.083 %) solution for nebulization 2.5 mg inhalation Q6H PRN insulin lispro [Humalog KwikPen Insulin] 100 unit/mL insulin pen 10 unit subcut QID ferrous sulfate 325 mg (65 mg iron) tablet,delayed release (DR/EC) 325 mg PO BID metoprolol succinate [Toprol XL] 25 mg tablet extended release 24 hr 25 mg PO DAILY Patient Comments: TAKE ONE TABLET BY MOUTH EVERY DAY carvedilol 3.125 mg Tablet 3.125 mg PO BID Qty: 60 0RF pantoprazole [Protonix] 40 mg tablet,delayed release (DR/EC) 40 mg PO BID Qty: 60 0RF Victoza 3-Tanmay 0.6 mg/0.1 mL (18 mg/3 mL) pen injector 1.8 mg SUBCUT DAILY Qty: 0 0RF Patient Comments: INJECT 0.6 MG UNDER THE SKIN ONCE DAILY TITRATE UP TOLERATED TO 1.2 MG DAILY, THEN MAINTAINANCE AT 1.8 MG DAILY naloxone [Narcan] 4 mg/actuation spray,non-aerosol 4 mg intranasal Q2-3M PRNQty: 2 0RF Rx Instructions: spray 1 dose into ONE nostril; alternate nostrils w each dose until help arrives ibuprofen 600 mg tablet 600 mg PO TID PRNQty: 30 0RF methadone 10 mg/5 mL Solution 120 mg PO DAILY carboxymethylcellulose sodium [Refresh Plus] 0.5 % Dropperette 1 drp OU QID Qty: 50 0RF potassium chloride 10 mEq capsule, extended release 10 meq PO DAILY Patient Comments: TAKE ONE CAPSULE BY MOUTH EVERY DAY torsemide 20 mg tablet 40 mg PO DAILY Patient Comments: TAKE ONE TABLET BY MOUTH EVERY DAY cetirizine [Zyrtec] 10 mg tablet 10 mg PO DAILY PRN PRN (Reason: Allergy Symptoms) Patient Comments: TAKE ONE TABLET BY MOUTH EVERY DAY NEEDED aspirin [Adult Low Dose Aspirin] 81 mg tablet,delayed release (DR/EC) 81 mg PO DAILY Patient Comments: TAKE ONE TABLET BY MOUTH EVERY DAY citalopram [Celexa] 20 mg tablet 20 mg PO DAILY Patient Comments: TAKE ONE TABLET BY MOUTH EVERY DAY benzonatate 100 mg capsule 100 mg PO TID PRN PRN (Reason: Cough) Patient Comments: TAKE ONE CAPSULE BY MOUTH THREE TIMES A DAY NEEDED folic acid 1 mg tablet 1 mg PO DAILY Patient Comments: TAKE ONE TABLET BY MOUTH EVERY DAY albuterol sulfate [ProAir HFA] 90 mcg/actuation HFA aerosol inhaler 2 inh INHALATION Q3H PRN PRN (Reason: Shortness Of Breath Or Wheezing) Patient Comments: INHALE TWO PUFFS BY MOUTH EVERY 3 HOURS NEEDED colchicine [Colcrys] 0.6 mg tablet 0.6 mg PO BID Patient Comments: TAKE ONE TABLET BY MOUTH TWICE A DAY Advair HFA 45-21 mcg/actuation HFA aerosol inhaler 2 inh INHALATION BID Patient Comments: INHALE TWO PUFFS BY MOUTH TWICE A DAY Jardiance 10 mg tablet 10 mg PO DAILY Patient Comments: TAKE ONE TABLET BY MOUTH EVERY DAY potassium chloride 20 mEq tablet,ER particles/crystals 20 meq PO BID Qty: 10 0RF Discharge Instructions Instructions: Cellulitis (ED) Additional Instructions: Dr. Wisdom stated that he will call in some prescriptions for you. Please take those as prescribed. You were given a dose of IV clindamycin antibiotic here in the department. Please continue to follow the postoperative instructions including rest ice compression elevation. Keep your follow-up appointments as previously scheduled. Referrals: Antonia Bertrand [Primary Care Provider] - 3 days Stevenson Wisdom MD [ [facility] STAFF PHYSICIAN] - 5 days Medical Decision Making 47-year-old female presents to the ER with a chief complaint of right leg swelling and incision from drainage status post a internal fixation reduction of a tib fib fracture. Patient had the surgery on November 24. She reports that 3 days ago she noticed drainage from the incision site. She does have some pain to her mid calf on the right. Small amount of redness and warmth noted. She has a past medical history of hyperlipidemia, type 2 diabetes, asthma depression PTSD GERD, NSTEMI heart failure pulmonary hypertension CHF. Work-up ordered including CBC, CMP, lactate blood cultures x2 x-ray and ultrasound to rule out DVT. 1301: Negative DVT study relayed by radiologist. 1330: Dr. Wisdom at bedside for patient evaluation. He reports he will call patient and some medications. Patient discharged with instructions she verbalized understanding. This text was generated using [employer] dictation system, please disregard any oddities of ph rase or misspellings. Medical Records Medical records reviewed: Yes I reviewed the patient's medical records. HPI General Mode of arrival: ambulatory . Date/Time Provider Initiated Documentation: 12/16/22 11:35 . Limitations to Documentation: no limitations . Information obtained by: patient, RN notes reviewed and old records reviewed . HPI Narrative: 47-year-old female presents to the ER with a chief complaint of right leg swelling and incision from drainage status post a internal fixation reduction of a tib fib fracture. Patient had the surgery on November 24. She reports that 3 days ago she noticed drainage from the incision site. She does have some pain to her mid calf on the right. Small amount of redness and warmth noted. She has a past medical history of hyperlipidemia, type 2 diabetes, asthma depression PTSD GERD, NSTEMI heart failure pulmonary hypertension CHF. Related Data Home Medications Medication Instructions Recorded Confirmed acetaminophen 325 mg capsule 975 mg PO Q8H PRN 10/18/21 12/15/22 albuterol sulfate 2.5 mg/3 mL 2.5 mg inhalation Q6H PRN 10/18/21 12/15/22 (0.083 %) solution for nebulization atorvastatin 80 mg tablet (Lipitor) 80 mg PO DAILY 10/18/21 12/15/22 clopidogrel 75 mg tablet (Plavix) 75 mg PO DAILY 10/18/21 12/15/22 insulin degludec 200 unit/mL (3 120 unit subcut DAILY 10/18/21 12/15/22 mL) subcutaneous pen (Tresiba FlexTouch U-200 insulin) insulin lispro 100 unit/mL 10 unit subcut QID 10/18/21 12/15/22 subcutaneous pen (Humalog KwikPen (U-100) Insulin) magnesium oxide 400 mg (241.3 mg 400 mg PO BID 10/18/21 12/15/22 magnesium) tablet (MagOx) nitroglycerin 0.4 mg sublingual 0.4 mg sublingual Q5M PRN 10/18/21 12/15/22 tablet (Nitrostat) methadone 10 mg/5 mL oral solution 120 mg PO DAILY 03/15/22 12/15/22 carboxymethylcellulose sodium 0.5 1 drp OU QID #50 ea 08/15/22 12/15/22 % eye drops in a dropperette (Refresh Plus) albuterol sulfate 90 mcg/actuation 2 inh inhalation Q3H PRN PRN 10/29/22 12/15/22 aerosol inhaler (ProAir HFA) Shortness Of Breath Or Wheezing aspirin 81 mg tablet,delayed 81 mg PO DAILY 10/29/22 12/15/22 release (Adult Low Dose Aspirin) benzonatate 100 mg capsule 100 mg PO TID PRN PRN Cough 10/29/22 12/15/22 cetirizine 10 mg tablet (Zyrtec) 10 mg PO DAILY PRN PRN Allergy 10/29/22 12/15/22 Symptoms citalopram 20 mg tablet (Celexa) 20 mg PO DAILY 10/29/22 12/15/22 colchicine 0.6 mg tablet (Colcrys) 0.6 mg PO BID 10/29/22 12/15/22 empagliflozin 10 mg tablet 10 mg PO DAILY 10/29/22 12/15/22 (Jardiance) fluticasone propionate 45 2 inh inhalation BID 10/29/22 12/15/22 mcg-salmeterol 21 mcg/actuation HFA inhaler (Advair HFA) folic acid 1 mg tablet 1 mg PO DAILY 10/29/22 12/15/22 potassium chloride 10 mEq 10 meq PO DAILY 10/29/22 12/15/22 capsule,extended release torsemide 20 mg tablet 40 mg PO DAILY 10/29/22 12/15/22 potassium chloride 20 mEq 20 meq PO BID #10 tabs 11/13/22 12/15/22 tablet,extended release(part/cryst) metoprolol succinate 25 mg 25 mg PO DAILY 11/23/22 12/15/22 tablet,extended release 24 hr (Toprol XL) carvedilol 3.125 mg tablet 3.125 mg PO BID #60 tabs 11/29/22 12/15/22 ibuprofen 600 mg tablet 600 mg PO TID PRN #30 tabs 11/29/22 12/15/22 liraglutide 0.6 mg/0.1 mL (18 mg/3 1.8 mg (0.3 mL) subcut DAILY #0 mL 11/29/22 12/15/22 mL) subcutaneous pen injector (Victoza 3-Tanmay) naloxone 4 mg/actuation nasal 4 mg intranasal Q2-3M PRN #2 ea 11/29/22 12/15/22 spray (Narcan) pantoprazole 40 mg tablet,delayed 40 mg PO BID #60 tabs 11/29/22 12/15/22 release (Protonix) ferrous sulfate 325 mg (65 mg 325 mg PO BID 12/15/22 12/15/22 iron) tablet,delayed release gabapentin 600 mg tablet 600 mg PO DIRECTED 12/15/22 levetiracetam 1,000 mg tablet 1,000 mg PO Q12H #60 tabs 12/15/22 12/15/22 baclofen 10 mg tablet 10 mg PO TID PRN #30 tabs 12/16/22 cefadroxil 500 mg capsule 500 mg PO BID #28 caps 12/16/22 oxycodone 5 mg tablet 5 mg PO Q8H PRN Pain, Severe #15 12/16/22 tabs Previous Rx's Medication Instructions Recorded carboxymethylcellulose sodium 0.5 1 drp OU QID #50 ea 08/15/22 % eye drops in a dropperette (Refresh Plus) potassium chloride 20 mEq 20 meq PO BID #10 tabs 11/13/22 tablet,extended release(part/cryst) carvedilol 3.125 mg tablet 3.125 mg PO BID #60 tabs 11/29/22 ibuprofen 600 mg tablet 600 mg PO TID PRN #30 tabs 11/29/22 liraglutide 0.6 mg/0.1 mL (18 mg/3 1.8 mg (0.3 mL) subcut DAILY #0 mL 11/29/22 mL) subcutaneous pen injector (Victoza 3-Tanmay) naloxone 4 mg/actuation nasal 4 mg intranasal Q2-3M PRN #2 ea 11/29/22 spray (Narcan) pantoprazole 40 mg tablet,delayed 40 mg PO BID #60 tabs 11/29/22 release (Protonix) levetiracetam 1,000 mg tablet 1,000 mg PO Q12H #60 tabs 12/15/22 baclofen 10 mg tablet 10 mg PO TID PRN #30 tabs 12/16/22 cefadroxil 500 mg capsule 500 mg PO BID #28 caps 12/16/22 oxycodone 5 mg tablet 5 mg PO Q8H PRN Pain, Severe #15 12/16/22 tabs Allergies Allergy/AdvReac Type Severity Reaction Status Date / Time Bleach (Sodium Hypochlorite) Allergy Unknown Verified 12/16/22 13:06 mushroom Allergy Unknown Verified 12/16/22 13:06 Penicillins Allergy Unknown Verified 12/16/22 13:06 tramadol Allergy Unknown Verified 12/16/22 13:06 mold Allergy Verified 12/16/22 13:06 trazodone Allergy Verified 12/16/22 13:06 General Stated Complaint: Orthopedic SHANIA: 3 Review of Systems All systems reviewed & are unremarkable except as noted in HPI and below Musculoskeletal Musculoskeletal: Reports as per HPI and Reports joint swelling PFSH All Active Problems (Updated 12/16/22 @ 13:43 by Marleny Avila NP) Encounter for postoperative wound check (Acute) Opioid dependence (Chronic) Recurrent episodes of unresponsiveness (Acute) Syncope (Chronic) Closed fracture of right fibula and tibia (Acute) Closed fracture of shaft of right tibia and fibula (Acute 11/23/22) s/p IMN of Right Tibia - 11/24/22 Dizziness (Acute) Syncopal episodes (Chronic) Vomiting (Acute) QT prolongation (Chronic) Nonspecific paroxysmal spell (Acute) Episode of unresponsiveness (Acute) Chronic systolic CHF (congestive heart failure) (Chronic) Ischemic cardiomyopathy (Acute) Obstructive sleep apnea (Chronic) Hallucinations (Acute) Chronic respiratory failure with hypoxia (Chronic) Fracture of finger, left (Acute) Syncopal episodes (Chronic) Acute hypokalemia (Acute) Observed seizure-like activity (Acute) Opioid dependence on agonist therapy (Acute) Leg wound, left (Acute) Facial palsy (Acute) Pulmonary HTN (Acute) Heart failure (Acute) 09/02/21 with [place] low EF Non-STEMI (non-ST elevated myocardial infarction) (Acute) 09/02/21 Vertigo (Acute) GERD (gastroesophageal reflux disease) (Chronic) Essential hypertension (Acute) Asthma (Chronic) Depression (Chronic) PTSD (post-traumatic stress disorder) (Acute) Tobacco abuse disorder (Acute) Hypokalemia (Acute) Chronic gout (Acute) Hyperlipidemia (Acute) Diabetic peripheral neuropathy (Acute) Type 2 diabetes mellitus (Chronic) Medical History COVID was vaccinated but contracted Covid 06/22 History of gastrointestinal ulcer Surgical History H/O bone graft left knee H/O shoulder surgery x4 and ending with a full replacement H/O total hysterectomy History of appendectomy History of colonoscopy History of esophagogastroduodenoscopy (EGD) gastritis with gastric ulcers Previous section x4 delivery Family History Mother Cancer Heart disease Obstructive lung disease Depression Arthritis Degeneration of intervertebral disc Father Alcohol use disorder Brother Hypertension Mood disorder Maternal Grandfather Alcohol use disorder Maternal Grandmother Breast cancer Maternal Aunt Breast cancer Paternal Aunt Breast cancer Social History Smoking/Tobacco Use Status: Current every day Tobacco Type: cigarettes Tobacco: How many years used: 34 Smoking risk assessment performed?: Yes Alcohol Intake: current Alcohol Intake frequency: holidays/special occasions only Alcohol type: beer Drug use: Never Substance use type: does not use Do you feel safe at home: Yes Do you feel safe in your relationship?: Yes Exam Extrem Upper/lower leg/hip images: 1. Swelling and erythema Knee images: 1. Open incision noted with purulent type drainage noted at the base. Course Vital Signs Vital signs: Vital Signs Temperature 36.7 C 12/16/22 11:42 Pulse 88 12/16/22 11:42 Respiratory Rate 18 12/16/22 11:42 Blood Pressure 101/67 12/16/22 11:42 Pulse Oximetry 95 12/16/22 11:42 Temperature 36.7 C 12/16/22 11:42 Temperature Source Oral 12/16/22 11:42 Pulse 88 12/16/22 11:42 Respiratory Rate 18 12/16/22 11:42 Respiratory Effort Normal, Non-Labored 12/16/22 11:39 Blood Pressure 101/67 12/16/22 11:42 Pulse Oximetry 95 12/16/22 11:42 Oxygen Delivery Method Room Air 12/16/22 11:42 Oxygen Flow Rate 0 12/16/22 11:42 Lab/Test Results Lab/Test Results: 12/16/22 11:50 Blood Blood Culture - Pending 12/16/22 11:50 Blood Blood Culture - Pending
--- NOTE | 2022-12-16 12:00 | DI.US_ITS ---
Exam(s) US LOWER EXTREMITY VENOUS RT EXAM: US LOWER EXTREMITY VENOUS RT CLINICAL HISTORY: Hx Surgery R/O DVT TECHNIQUE: Right lower extremity venous ultrasound performed using grayscale, color-flow, and spectr al Doppler analysis. COMPARISON: No exams were available for comparison FINDINGS: The right common femoral, femoral and popliteal veins demonstrate normal compressibility, augmentatio n, and color Doppler. The posterior tibialis veins are not well visualized but appear to be patent. There is limited visualization due to the soft tissue swelling of the lower extremity. The saphenofe moral junction is unremarkable. There is no evidence of a Talbert cyst. Soft tissue swelling of the l ower extremity. IMPRESSION: 1. No evidence of a right lower extremity DVT. 2. Findings were discussed with Marleny Avila at 1:01 p.m. on 12/16/2022. DATA REPOSITORY:
[2022-12-16 12:01] LABS: Lactate 1.5 mmol/L (0.6-1.4)
[2022-12-16 12:16] LABS: Abs Immature Grans 0.02 10^3/uL (0.0-0.06); Absolute Basophil Count 0.05 10^3/uL (0.0-0.2); Absolute Eosinophil Count 0.91 10^3/uL (0.0-0.7); Absolute Lymphocyte Count 2.77 10^3/uL (1.2-3.4); Absolute Monocyte Count 0.84 10^3/uL (0.1-0.8); Basophils % 0.6; Eosinophils % 11.5; HCT 41.5 % (36.0-46.0); HGB 13.8 g/dL (11.2-15.7); Immature Grans % 0.3; Lymphocytes % 35.1; MCH 29.2 pg (27.0-33.0); MCHC 33.3 % (32.0-36.0); MCV 88 fL (80-95); MPV 10.2 fL (8.0-11.0); Monocytes % 10.6; Neutrophils % 41.9; Platelet Count 337 10^3/uL (130-400); RBC 4.73 10^6/uL (3.93-5.22); RDW 14.1 % (11.7-14.6); RDW-SD 45.6 fL; WBC 7.89 10^3/uL (4.4-10.8)
[2022-12-16 12:20] LABS: ALT 20 U/L (14-59); AST 13 U/L (15-37); Albumin 3.6 g/dL (3.4-5.0); Alkaline Phosphatase 190 U/L (46-116); Anion Gap 5.7 mmol/L (3-11); BUN 42 mg/dL (7-18); Bilirubin, Total 0.2 mg/dL (0.2-1.0); CO2 33.3 mmol/L (21.0-32.0); Calcium 9.3 mg/dL (8.5-10.1); Chloride 100 mmol/L (98-107); Estimated GFR 69.93 (mL/min/1.73m2); Glucose 231 mg/dL (74-106); Potassium 3.9 mmol/L (3.5-5.1); Sodium 139 mmol/L (136-145); Total Protein 7.5 g/dL (6.4-8.2)
[2022-12-16] MEDS: MORPHine 4 MG/ML SYR (12:36)
[2022-12-16] MEDS: Ondansetron 4 MG/2 ML VIAL (12:37)
[2022-12-16 13:04] LABS: Hemoglobin A1C 7.1 % (<5.7)
--- NOTE | 2022-12-16 13:15 | DI.RAD_ITS ---
Exam(s) XR TIB/FIB RT EXAM: XR TIB/FIB RT CLINICAL HISTORY: Recent Surgery. TECHNIQUE: 2D digital imaging was performed of the right tibia and fibula. Three images were obtaine d. AP and lateral views were obtained. COMPARISON: CR XR TIB/FIB RT from 11/23/2022 XR TIB/FIB RT from 11/24/2022 FINDINGS: BONES: There has been no change in alignment of the proximal fibular fracture which shows evidence of healing. The distal fibular fracture is also stable in alignment. There is an intramedullary blair s een transfixing the distal tibial fracture which is unchanged in alignment. There is calcification a round the fracture suggesting interval healing. No bony destructive lesion is seen. Visualized porti on of knee and ankle joints are unremarkable. SOFT TISSUE: Normal. IMPRESSION: Stable right tibial and fibular fractures. DATA REPOSITORY: RADIATION DOSE DELIVERED:
--- NOTE | 2022-12-16 13:16 | DI.RAD_ITS ---
Exam(s) XR KNEE RT 3V AP,LAT,KATHERINE EXAM: XR KNEE RT 3V AP,LAT,KATHERINE CLINICAL HISTORY: Recent Surgery. TECHNIQUE: 2D digital imaging was performed of the right knee. Three views obtained. AP, lateral an d PA tunnel views were obtained. COMPARISON: CR XR TIB/FIB RT from 11/23/2022 FINDINGS: BONES: There is a stable fracture of the proximal fibula. An intramedullary blair is seen in the proxi mal tibia. No new fracture or dislocation is present. No bony destructive lesion is seen. JOINTS: The knee is normally aligned. No joint effusion is seen. SOFT TISSUE: Normal. IMPRESSION: 1. Stable proximal fibular fracture. 2. No acute abnormality. DATA REPOSITORY: RADIATION DOSE DELIVERED:
[2022-12-16] MEDS: CLINDAMYCIN 600 MG/50 ML BAG 100 MG IVPB (13:23)
[2022-12-16] MEDS: Normal Saline 250 ML 500 ML IV (13:24)
--- NOTE | 2022-12-16 13:48 | W.ORTHOCONSU ---
Date of service: 12/16/22 Time of Service: 13:49 History of Present Illness Narrative: Aracelis is a 47-year-old who presents to the emergency department today for concerns of infection. She had been seen by home health nursing who was concerned that she was having ongoing infection about her right leg. He reports constant pain. She did have pain medication for the first 5 or so days upon discharge but is not had any since. She has had increasing pain. She has not been wearing the boot. She uses a walker occasionally. She has had some swelling about the right leg including some redness. However, she does feel may be slightly better although still painful. There is some concern about the proximal right wound and she does note some greenish discharge at times but not recently. She denies any swelling about the right knee. She reports muscle spasms which are causing the majority of her pain. She was taken ibuprofen initially but was told to stop that due to her ongoing significant heart issues. Consults Consult date: 12/16/22 Requesting physician: Marleny Avila Consult Reason Pain, swelling, and wound after tib-fib fracture surgery Assessment and Plan Assessment and plan (1) Closed fracture of shaft of right tibia and fibula: Status: Acute (2) Closed fracture of right fibula and tibia: Status: Acute (3) Cellulitis of right leg: Status: Acute Assessment and plan: Aracelis is a 47-year-old who is 3 weeks or so out from intramedullary fixation of a right tib-fib fracture. She has home health nursing and therapy coming to the house who is concerned about her wounds. Today she has some diastases of the most proximal wound. There is eschar about the wound but there is no sign of infection. However, distally she has swelling and redness which may be the start of cellulitis. He does report significant pain. My suspicion that the majority of this pain is due to her chronic narcotic consumption with methadone. However, she is within the early postoperative period and therefore is not unreasonable to treat some of her pain. She also complains of spasms. Therefore, I will call in a few oxycodone for pain relief as well as some baclofen for muscle relaxation. I have encouraged her to be strict with her elevation. She should use her walker is much as possible to offload the leg to allow some the swelling to proceed. We will take some time. She has some history of edema in the legs anyway. Given the concern for cellulitis I recommended dose of antibiotics today here in the emergency department along with an outpatient course. She has a follow-up next week in the office which she should keep. Review of Systems All systems reviewed & are unremarkable except as noted in HPI and below PFSH All Active Problems (Updated 12/16/22 @ 14:51 by Stevenson Wisdom MD) Cellulitis of right leg (Acute) Encounter for postoperative wound check (Acute) Opioid dependence (Chronic) Recurrent episodes of unresponsiveness (Acute) Syncope (Chronic) Closed fracture of right fibula and tibia (Acute) Closed fracture of shaft of right tibia and fibula (Acute 11/23/22) s/p IMN of Right Tibia - 11/24/22 Dizziness (Acute) Syncopal episodes (Chronic) Vomiting (Acute) QT prolongation (Chronic) Nonspecific paroxysmal spell (Acute) Episode of unresponsiveness (Acute) Chronic systolic CHF (congestive heart failure) (Chronic) Ischemic cardiomyopathy (Acute) Obstructive sleep apnea (Chronic) Hallucinations (Acute) Chronic respiratory failure with hypoxia (Chronic) Fracture of finger, left (Acute) Syncopal episodes (Chronic) Acute hypokalemia (Acute) Observed seizure-like activity (Acute) Opioid dependence on agonist therapy (Acute) Leg wound, left (Acute) Facial palsy (Acute) Pulmonary HTN (Acute) Heart failure (Acute) 09/02/21 with NV low EF Non-STEMI (non-ST elevated myocardial infarction) (Acute) 09/02/21 Vertigo (Acute) GERD (gastroesophageal reflux disease) (Chronic) Essential hypertension (Acute) Asthma (Chronic) Depression (Chronic) PTSD (post-traumatic stress disorder) (Acute) Tobacco abuse disorder (Acute) Hypokalemia (Acute) Chronic gout (Acute) Hyperlipidemia (Acute) Diabetic peripheral neuropathy (Acute) Type 2 diabetes mellitus (Chronic) Medical History COVID was vaccinated but contracted Covid 06/22 History of gastrointestinal ulcer Surgical History H/O bone graft left knee H/O shoulder surgery x4 and ending with a full replacement H/O total hysterectomy History of appendectomy History of colonoscopy History of esophagogastroduodenoscopy (EGD) gastritis with gastric ulcers Previous section x4 delivery Family History Mother Cancer Heart disease Obstructive lung disease Depression Arthritis Degeneration of intervertebral disc Father Alcohol use disorder Brother Hypertension Mood disorder Maternal Grandfather Alcohol use disorder Maternal Grandmother Breast cancer Maternal Aunt Breast cancer Paternal Aunt Breast cancer Social History Smoking/Tobacco Use Status: Current every day Tobacco Type: cigarettes Tobacco: How many years used: 34 Smoking risk assessment performed?: Yes Alcohol Intake: current Alcohol Intake frequency: holidays/special occasions only Alcohol type: beer Drug use: Never Substance use type: does not use Do you feel safe at home: Yes Do you feel safe in your relationship?: Yes Exam Narrative Exam Narrative: Laying down in the hospital bed. Appears uncomfortable. Evaluation of the right leg shows some edema throughout the leg from the proximal calf down through the foot. This is 2+ edema. There is some hyperemia seen about the lower half of the leg extending into the foot. No open areas. No drainage. Distal incisions are well-healed. The proximal incision about the right knee does have some diastases of up to about 1 cm with a dry eschar. There is no drainage. There is no surrounding erythema. There is no area of fluctuance. There is no effusion about the knee. Generally, there is pain throughout the leg although worse over the distal aspect. No significant pain over the medial aspect the knee joint. Gentle range of motion of the knee does not cause pain. She does have pain with attempted range of motion of the right foot and ankle. She has reported poor glucose control at home. Results Last Vital Signs Temp 36.7 C 12/16/22 11:42 Pulse 88 12/16/22 11:42 Resp 18 12/16/22 11:42 BP 101/67 12/16/22 11:42 Pulse Ox 95 12/16/22 11:42 Labs 12/16/22 11:55 12/16/22 11:55 Labs: Laboratory Results - last 24 hr 12/16/22 12/16/22 12/16/22 11:55 11:55 11:55 WBC 7.89 RBC 4.73 Hgb 13.8 Hct 41.5 MCV 88 MCH 29.2 MCHC 33.3 RDW 14.1 Plt Count 337 MPV 10.2 Immature Gran % 0.3 Neutrophils % 41.9 Lymphocytes % 35.1 Monocytes % 10.6 Eosinophils % 11.5 Basophils % 0.6 Nucleated RBC % 0.0 Absolute Neutrophils 3.30 Absolute Lymphocytes 2.77 Absolute Monocytes 0.84 H Absolute Eosinophils 0.91 H Absolute Basophils 0.05 VBG Lactate 1.5 H Sodium 139 Potassium 3.9 Chloride 100 Carbon Dioxide 33.3 H Anion Gap 5.7 BUN 42 H Creatinine 1.0 Est GFR (CKD-EPI 2020) 69.93 Glucose 231 H Hemoglobin A1c Calcium 9.3 Total Bilirubin 0.2 AST 13 L ALT 20 Alkaline Phosphatase 190 H Total Protein 7.5 Albumin 3.6 12/16/22 11:55 WBC RBC Hgb Hct MCV MCH MCHC RDW Plt Count MPV Immature Gran % Neutrophils % Lymphocytes % Monocytes % Eosinophils % Basophils % Nucleated RBC % Absolute Neutrophils Absolute Lymphocytes Absolute Monocytes Absolute Eosinophils Absolute Basophils VBG Lactate Sodium Potassium Chloride Carbon Dioxide Anion Gap BUN Creatinine Est GFR (CKD-EPI 2020) Glucose Hemoglobin A1c 7.1 H Calcium Total Bilirubin AST ALT Alkaline Phosphatase Total Protein Albumin Imaging Imaging Studies: X-ray of the right knee and right tib-fib shows stable fixation of the tib-fib fracture. The proximal fibula fracture is similarly well aligned. There is been no change from the intraoperative images. The tibial nail is in good position there appears to be some early healing seen around the tibia fracture site. No sign of complication. No knee effusion.
[2022-12-16 14:12] VITALS: BP 105/87; PULSE 81; RESP 18; O2SAT 95
[2022-12-17 16:24] LABS: Fructosamine 300 mcmol/L (200 - 285)
== END 2022-12-16 14:26 | disposition home or self-care (01) ==
PROVIDERS: Emergency Provider Registered Nurse Emergency; PCP Nurse Practitioner Family
DX: Z47.89 Encounter for other orthopedic aftercare; M79.89 Other specified soft tissue disorders; I11.0 Hypertensive heart disease with heart failure; I50.9 Heart failure, unspecified; E11.9 Type 2 diabetes mellitus without complications; J45.909 Unspecified asthma, uncomplicated; I25.2 Old myocardial infarction; Z79.4 Long term (current) use of insulin; Z79.82 Long term (current) use of aspirin; Z79.51 Long term (current) use of inhaled steroids; Z86.16 Personal history of COVID-19
CPT/HCPCS: 36415; 73562; 80053; 87040; 96365; 99284; 73590; 82985; 83036; 83605; 85025; 93971; 99283; J2270; J2405

== ENCOUNTER 2022-12-22 09:32 | Outpatient (CLI) | payer MEDICARE, MEDICAID, SELFPAY | END 2022-12-22 09:33 | disposition home or self-care (01) | LOC: DIORS 09:32 | PROVIDERS: PCP Nurse Practitioner Family; Referring Provider Nurse Practitioner Family; Visit Provider Student in an Organized Health Care Education/Training Program | DX: S82.201D Unspecified fracture of shaft of right tibia, subsequent encounter for closed fracture with routine healing (principal); X58.XXXD Exposure to other specified factors, subsequent encounter; L03.115 Cellulitis of right lower limb ==

== ENCOUNTER 2022-12-22 16:47 | Emergency (ER) | payer MEDICARE, MEDICAID, SELFPAY ==
--- NOTE | 2022-12-22 16:45 | RT.EKG_ITS ---
APPROVED REPORT Exam: Resting ECG Reason for Exam: chest pain Patient Location: E HR:84 bpm ECG Measurements Heart Rate 84 AXIS [place] 183 P 23 QRSd 94 QRS 23 QT 443 T 79 QTc 525 Conclusion Sinus rhythm...normal P axis, V-rate 60- 99 Consider anterolateral infarct...Q >30mS, I aVL V3-V6,I,aVL Prolonged QT interval...QTc >510mS sinus rhythm, normal axis, non ishcemic, prolonged qtc
[2022-12-22 16:50] VITALS: BP 97/59; PULSE 88; RESP 18; TEMP 36.8; O2SAT 91
[2022-12-22] MEDS: Aspirin 81 MG CHEW (17:46)
[2022-12-22 17:51] LABS: Abs Immature Grans 0.02 10^3/uL (0.0-0.06); Absolute Basophil Count 0.04 10^3/uL (0.0-0.2); Absolute Eosinophil Count 0.74 10^3/uL (0.0-0.7); Absolute Lymphocyte Count 3.33 10^3/uL (1.2-3.4); Absolute Monocyte Count 1.13 10^3/uL (0.1-0.8); Basophils % 0.4; HGB 12.3 g/dL (11.2-15.7); Immature Grans % 0.2; MCH 29.5 pg (27.0-33.0); MCHC 33.2 % (32.0-36.0); MCV 89 fL (80-95); MPV 10.2 fL (8.0-11.0); Monocytes % 12.2; Neutrophils % 43.2; Platelet Count 291 10^3/uL (130-400); RBC 4.17 10^6/uL (3.93-5.22); RDW 14.4 % (11.7-14.6); RDW-SD 46.2 fL; WBC 9.26 10^3/uL (4.4-10.8)
[2022-12-22 18:05] LABS: Prothrombin Time 9.9 sec (9.3-11.0)
--- NOTE | 2022-12-22 18:08 | ED.GENADUL_ITS ---
Discharge Plan Discharge Details Chief Complaint: Chest Pain Primary Care Provider: Antonia Bertrand ED Provider: Husam Butt Home Meds and New Rx's Prescriptions: No Action gabapentin 600 mg tablet 600 mg PO DIRECTED Rx Instructions: 600 mg PO q am and at noon; 1200 mg PO Qpm levetiracetam 1,000 mg tablet 1,000 mg PO Q12H Qty: 60 5RF ibuprofen 600 mg tablet 600 mg PO TID PRN (Reason: pain) Qty: 30 0RF cyclobenzaprine 10 mg tablet 10 mg PO TID PRN (Reason: muscle spasm) Qty: 20 0RF acetaminophen 325 mg capsule 975 mg PO Q8H PRN atorvastatin [Lipitor] 80 mg tablet 80 mg PO DAILY clopidogrel [Plavix] 75 mg tablet 75 mg PO DAILY Tresiba FlexTouch U-200 200 unit/mL (3 mL) insulin pen 120 unit subcut DAILY magnesium oxide [MagOx] 400 mg (241.3 mg magnesium) tablet 400 mg PO BID nitroglycerin [Nitrostat] 0.4 mg tablet, sublingual 0.4 mg sublingual Q5M PRN Rx Instructions: do not exceed 3 doses per episode albuterol sulfate 2.5 mg /3 mL (0.083 %) solution for nebulization 2.5 mg inhalation Q6H PRN insulin lispro [Humalog KwikPen Insulin] 100 unit/mL insulin pen 10 unit subcut QID ferrous sulfate 325 mg (65 mg iron) tablet,delayed release (DR/EC) 325 mg PO BID metoprolol succinate [Toprol XL] 25 mg tablet extended release 24 hr 25 mg PO DAILY Patient Comments: TAKE ONE TABLET BY MOUTH EVERY DAY carvedilol 3.125 mg Tablet 3.125 mg PO BID Qty: 60 0RF pantoprazole [Protonix] 40 mg tablet,delayed release (DR/EC) 40 mg PO BID Qty: 60 0RF Victoza 3-Tanmay 0.6 mg/0.1 mL (18 mg/3 mL) pen injector 1.8 mg SUBCUT DAILY Qty: 0 0RF Patient Comments: INJECT 0.6 MG UNDER THE SKIN ONCE DAILY TITRATE UP TOLERATED TO 1.2 MG DAILY, THEN MAINTAINANCE AT 1.8 MG DAILY naloxone [Narcan] 4 mg/actuation spray,non-aerosol 4 mg intranasal Q2-3M PRNQty: 2 0RF Rx Instructions: spray 1 dose into ONE nostril; alternate nostrils w each dose until help arrives methadone 10 mg/5 mL Solution 120 mg PO DAILY carboxymethylcellulose sodium [Refresh Plus] 0.5 % Dropperette 1 drp OU QID Qty: 50 0RF potassium chloride 10 mEq capsule, extended release 10 meq PO DAILY Patient Comments: TAKE ONE CAPSULE BY MOUTH EVERY DAY torsemide 20 mg tablet 40 mg PO DAILY Patient Comments: TAKE ONE TABLET BY MOUTH EVERY DAY cetirizine [Zyrtec] 10 mg tablet 10 mg PO DAILY PRN PRN (Reason: Allergy Symptoms) Patient Comments: TAKE ONE TABLET BY MOUTH EVERY DAY NEEDED aspirin [Adult Low Dose Aspirin] 81 mg tablet,delayed release (DR/EC) 81 mg PO DAILY Patient Comments: TAKE ONE TABLET BY MOUTH EVERY DAY citalopram [Celexa] 20 mg tablet 20 mg PO DAILY Patient Comments: TAKE ONE TABLET BY MOUTH EVERY DAY benzonatate 100 mg capsule 100 mg PO TID PRN PRN (Reason: Cough) Patient Comments: TAKE ONE CAPSULE BY MOUTH THREE TIMES A DAY NEEDED folic acid 1 mg tablet 1 mg PO DAILY Patient Comments: TAKE ONE TABLET BY MOUTH EVERY DAY albuterol sulfate [ProAir HFA] 90 mcg/actuation HFA aerosol inhaler 2 inh INHALATION Q3H PRN PRN (Reason: Shortness Of Breath Or Wheezing) Patient Comments: INHALE TWO PUFFS BY MOUTH EVERY 3 HOURS NEEDED colchicine [Colcrys] 0.6 mg tablet 0.6 mg PO BID Patient Comments: TAKE ONE TABLET BY MOUTH TWICE A DAY Advair HFA 45-21 mcg/actuation HFA aerosol inhaler 2 inh INHALATION BID Patient Comments: INHALE TWO PUFFS BY MOUTH TWICE A DAY Jardiance 10 mg tablet 10 mg PO DAILY Patient Comments: TAKE ONE TABLET BY MOUTH EVERY DAY potassium chloride 20 mEq tablet,ER particles/crystals 20 meq PO BID Qty: 10 0RF cefadroxil 500 mg capsule 500 mg PO BID Qty: 28 0RF oxycodone 5 mg tablet 5 mg PO Q8H PRN (Reason: Pain, Severe) Qty: 15 0RF baclofen 10 mg tablet 10 mg PO TID PRNQty: 30 0RF Medical Decision Making 47-year-old female history of pulmonary hypertension, CHF, prior OR presents with chest pain shortness of breath and fatigue over the past 2 days. Noted to be relatively hypotensive the 80s, nontachycardic however relatively hypoxic to the low 90s on room air. Lungs clear bilaterally asymmetric peripheral edema to right lower extremity. Recent orthopedic procedure. Must consider PE versus ACS versus dehydration versus viral syndrome. Will obtain labs EKG, CT a chest PE study. Light fluid bolus to assess respiratory status given CHF. Disposition pending reassess 20: 18 resting comfortably no acute distress. Pending second troponin for disposition HPI General Date/Time Provider Initiated Documentation: 12/22/22 17:05 . HPI Narrative: 47-year-old female history of CHF, pulmonary hypertension, NSTEMI, presents with chest pain for 2 days and lightheadedness. Mild shortness of breath. Patient Dors is recent orthopedic procedure right lower extremity. Related Data Home Medications Medication Instructions Recorded Confirmed acetaminophen 325 mg capsule 975 mg PO Q8H PRN 10/18/21 12/15/22 albuterol sulfate 2.5 mg/3 mL 2.5 mg inhalation Q6H PRN 10/18/21 12/15/22 (0.083 %) solution for nebulization atorvastatin 80 mg tablet (Lipitor) 80 mg PO DAILY 10/18/21 12/15/22 clopidogrel 75 mg tablet (Plavix) 75 mg PO DAILY 10/18/21 12/15/22 insulin degludec 200 unit/mL (3 120 unit subcut DAILY 10/18/21 12/15/22 mL) subcutaneous pen (Tresiba FlexTouch U-200 insulin) insulin lispro 100 unit/mL 10 unit subcut QID 10/18/21 12/15/22 subcutaneous pen (Humalog KwikPen (U-100) Insulin) magnesium oxide 400 mg (241.3 mg 400 mg PO BID 10/18/21 12/15/22 magnesium) tablet (MagOx) nitroglycerin 0.4 mg sublingual 0.4 mg sublingual Q5M PRN 10/18/21 12/15/22 tablet (Nitrostat) methadone 10 mg/5 mL oral solution 120 mg PO DAILY 03/15/22 12/15/22 carboxymethylcellulose sodium 0.5 1 drp OU QID #50 ea 08/15/22 12/15/22 % eye drops in a dropperette (Refresh Plus) albuterol sulfate 90 mcg/actuation 2 inh inhalation Q3H PRN PRN 10/29/22 12/15/22 aerosol inhaler (ProAir HFA) Shortness Of Breath Or Wheezing aspirin 81 mg tablet,delayed 81 mg PO DAILY 10/29/22 12/15/22 release (Adult Low Dose Aspirin) benzonatate 100 mg capsule 100 mg PO TID PRN PRN Cough 10/29/22 12/15/22 cetirizine 10 mg tablet (Zyrtec) 10 mg PO DAILY PRN PRN Allergy 10/29/22 12/15/22 Symptoms citalopram 20 mg tablet (Celexa) 20 mg PO DAILY 10/29/22 12/15/22 colchicine 0.6 mg tablet (Colcrys) 0.6 mg PO BID 10/29/22 12/15/22 empagliflozin 10 mg tablet 10 mg PO DAILY 10/29/22 12/15/22 (Jardiance) fluticasone propionate 45 2 inh inhalation BID 10/29/22 12/15/22 mcg-salmeterol 21 mcg/actuation HFA inhaler (Advair HFA) folic acid 1 mg tablet 1 mg PO DAILY 10/29/22 12/15/22 potassium chloride 10 mEq 10 meq PO DAILY 10/29/22 12/15/22 capsule,extended release torsemide 20 mg tablet 40 mg PO DAILY 10/29/22 12/15/22 potassium chloride 20 mEq 20 meq PO BID #10 tabs 11/13/22 12/15/22 tablet,extended release(part/cryst) metoprolol succinate 25 mg 25 mg PO DAILY 11/23/22 12/15/22 tablet,extended release 24 hr (Toprol XL) carvedilol 3.125 mg tablet 3.125 mg PO BID #60 tabs 11/29/22 12/15/22 liraglutide 0.6 mg/0.1 mL (18 mg/3 1.8 mg (0.3 mL) subcut DAILY #0 mL 11/29/22 12/15/22 mL) subcutaneous pen injector (Victoza 3-Tanmay) naloxone 4 mg/actuation nasal 4 mg intranasal Q2-3M PRN #2 ea 11/29/22 12/15/22 spray (Narcan) pantoprazole 40 mg tablet,delayed 40 mg PO BID #60 tabs 11/29/22 12/15/22 release (Protonix) ferrous sulfate 325 mg (65 mg 325 mg PO BID 12/15/22 12/15/22 iron) tablet,delayed release gabapentin 600 mg tablet 600 mg PO DIRECTED 12/15/22 levetiracetam 1,000 mg tablet 1,000 mg PO Q12H #60 tabs 12/15/22 12/15/22 baclofen 10 mg tablet 10 mg PO TID PRN #30 tabs 12/16/22 cefadroxil 500 mg capsule 500 mg PO BID #28 caps 12/16/22 oxycodone 5 mg tablet 5 mg PO Q8H PRN Pain, Severe #15 12/16/22 tabs cyclobenzaprine 10 mg tablet 10 mg PO TID PRN muscle spasm #20 12/22/22 12/22/22 tabs ibuprofen 600 mg tablet 600 mg PO TID PRN pain #30 tabs 12/22/22 12/22/22 Previous Rx's Medication Instructions Recorded carboxymethylcellulose sodium 0.5 1 drp OU QID #50 ea 08/15/ % eye drops in a dropperette (Refresh Plus) potassium chloride 20 mEq 20 meq PO BID #10 tabs 11/13/22 tablet,extended release(part/cryst) carvedilol 3.125 mg tablet 3.125 mg PO BID #60 tabs 11/29/22 liraglutide 0.6 mg/0.1 mL (18 mg/3 1.8 mg (0.3 mL) subcut DAILY #0 mL 11/29/22 mL) subcutaneous pen injector (Victoza 3-Tanmay) naloxone 4 mg/actuation nasal 4 mg intranasal Q2-3M PRN #2 ea 11/29/22 spray (Narcan) pantoprazole 40 mg tablet,delayed 40 mg PO BID #60 tabs 11/29/22 release (Protonix) levetiracetam 1,000 mg tablet 1,000 mg PO Q12H #60 tabs 12/15/22 baclofen 10 mg tablet 10 mg PO TID PRN #30 tabs 12/16/22 cefadroxil 500 mg capsule 500 mg PO BID #28 caps 12/16/22 oxycodone 5 mg tablet 5 mg PO Q8H PRN Pain, Severe #15 12/16/22 tabs cyclobenzaprine 10 mg tablet 10 mg PO TID PRN muscle spasm #20 12/22/22 tabs ibuprofen 600 mg tablet 600 mg PO TID PRN pain #30 tabs 12/22/22 Allergies Allergy/AdvReac Type Severity Reaction Status Date / Time Bleach (Sodium Hypochlorite) Allergy Unknown Verified 12/22/22 16:47 mushroom Allergy Unknown Verified 12/22/22 16:47 Penicillins Allergy Unknown Verified 12/22/22 16:47 tramadol Allergy Unknown Verified 12/22/22 16:47 mold Allergy Verified 12/22/22 16:47 trazodone Allergy Verified 12/22/22 16:47 General Stated Complaint: Chest Pain SHANIA: 3 Review of Systems Narrative: Review of Systems Constitutional: negative Eyes: negative ENT: negative Cardiovascular: Chest pain Respiratory: Shortness of breath Gastrointestinal: negative : negative Musculoskeletal: negative Skin: negative Neurologic: negative Psych: negative PFSH All Active Problems (Updated 12/22/22 @ 08:38 by Marce Gonzalez RN) Fracture of tibial shaft, right, closed (Acute) Cellulitis of right leg (Acute) Encounter for postoperative wound check (Acute) Opioid dependence (Chronic) Recurrent episodes of unresponsiveness (Acute) Syncope (Chronic) Closed fracture of right fibula and tibia (Acute) Closed fracture of shaft of right tibia and fibula (Acute 11/23/22) s/p IMN of Right Tibia - 11/24/22 QT prolongation (Chronic) Nonspecific paroxysmal spell (Acute) Episode of unresponsiveness (Acute) Chronic systolic CHF (congestive heart failure) (Chronic) Ischemic cardiomyopathy (Acute) Obstructive sleep apnea (Chronic) Hallucinations (Acute) Chronic respiratory failure with hypoxia (Chronic) Fracture of finger, left (Acute) Syncopal episodes (Chronic) Acute hypokalemia (Acute) Observed seizure-like activity (Acute) Opioid dependence on agonist therapy (Acute) Leg wound, left (Acute) Facial palsy (Acute) Pulmonary HTN (Acute) Heart failure (Acute) 09/02/21 with OR low EF Non-STEMI (non-ST elevated myocardial infarction) (Acute) 09/02/21 Vertigo (Acute) GERD (gastroesophageal reflux disease) (Chronic) Essential hypertension (Acute) Asthma (Chronic) Depression (Chronic) PTSD (post-traumatic stress disorder) (Acute) Tobacco abuse disorder (Acute) Hypokalemia (Acute) Chronic gout (Acute) Hyperlipidemia (Acute) Diabetic peripheral neuropathy (Acute) Type 2 diabetes mellitus (Chronic) Medical History COVID was vaccinated but contracted Covid 06/22 History of gastrointestinal ulcer Surgical History H/O bone graft left knee H/O shoulder surgery x4 and ending with a full replacement H/O total hysterectomy History of appendectomy History of colonoscopy History of esophagogastroduodenoscopy (EGD) gastritis with gastric ulcers Previous section x4 delivery Family History Mother Cancer Heart disease Obstructive lung disease Depression Arthritis Degeneration of intervertebral disc Father Alcohol use disorder Brother Hypertension Mood disorder Maternal Grandfather Alcohol use disorder Maternal Grandmother Breast cancer Maternal Aunt Breast cancer Paternal Aunt Breast cancer Social History Smoking/Tobacco Use Status: Current every day Tobacco Type: cigarettes Tobacco: How many years used: 34 Smoking risk assessment performed?: Yes Alcohol Intake: current Alcohol Intake frequency: holidays/special occasions only Alcohol type: beer Drug use: Never Substance use type: does not use Do you feel safe at home: Yes Do you feel safe in your relationship?: Yes Exam Narrative Exam Narrative: Physical Examination General: alert, awake, cooperative, appears fatigued HEENT: normocephalic, atraumatic; PERRL, EOM intact, conjunctiva normal; no nasal discharge; dry oral mucosa Neck: supple, trachea midline; full ROM Chest: normal to inspection Respiratory: normal respiratory effort, speaking in full sentences, clear to auscultation, no wheezing, rales or rhonchi Cardiac: regular rate, regular rhythm, S1S2 intact, no murmurs rubs or gallops GI: abdomen soft, non-tender, non-distended; no palpable mass or hepatosplenomegaly Skin: no lesions, rashes or trauma appreciated Neuro: AAOx3, normal speech, moving all extremities Extremities: Edema to right lower extremity greater than left Psych: Appropriate mood and affect Course Vital Signs Vital signs: Vital Signs Temperature 36.8 C 03/23/23 16:50 Pulse 88 12/22/22 16:50 Respiratory Rate 18 12/22/22 16:50 Blood Pressure 97/59 L 12/22/22 16:50 Pulse Oximetry 91 L 12/22/22 16:50 Temperature 36.8 C 12/22/22 16:50 Temperature Source Oral 12/22/22 16:50 Pulse 88 12/22/22 16:50 Respiratory Rate 18 12/22/22 16:50 Respiratory Effort Normal, Non-Labored 12/22/22 16:47 Blood Pressure 97/59 L 12/22/22 16:50 Pulse Oximetry 91 L 12/22/22 16:50 Oxygen Delivery Method Room Air 12/22/22 16:50 Oxygen Flow Rate 0 12/22/22 16:50 Lab/Test Results Lab/Test Results: Laboratory Tests Range/Units 12/22/22 17:05 WBC (4.4-10.8) 10^3/uL 9.26 RBC (3.93-5.22) 10^6/uL 4.17 Hgb (11.2-15.7) g/dL 12.3 Hct (36.0-46.0) % 37.0 MCV (80-95) fL 89 MCH (27.0-33.0) pg 29.5 MCHC (32.0-36.0) % 33.2 RDW (11.7-14.6) % 14.4 Plt Count (130-400) 10^3/uL 291 MPV (8.0-11.0) fL 10.2 Immature Gran % 0.2 Neutrophils % 43.2 Lymphocytes % 36.0 Monocytes % 12.2 Eosinophils % 8.0 Basophils % 0.4 Nucleated RBC % (0.0-0.3) % 0.0 Absolute Neutrophils (1.2-6.7) 10^3/uL 4.00 Absolute Lymphocytes (1.2-3.4) 10^3/uL 3.33 Absolute Monocytes (0.1-0.8) 10^3/uL 1.13 H Absolute Eosinophils (0.0-0.7) 10^3/uL 0.74 H Absolute Basophils (0.0-0.2) 10^3/uL 0.04
[2022-12-22 18:18] LABS: ALT 27 U/L (14-59); AST 22 U/L (15-37); Albumin 3.4 g/dL (3.4-5.0); Alkaline Phosphatase 163 U/L (46-116); Anion Gap 5.7 mmol/L (3-11); BUN 27 mg/dL (7-18); Bilirubin, Total 0.3 mg/dL (0.2-1.0); CO2 35.3 mmol/L (21.0-32.0); CREATININE 0.9 mg/dL (0.55-1.02); Calcium 9.1 mg/dL (8.5-10.1); Chloride 102 mmol/L (98-107); Estimated GFR 79.35 (mL/min/1.73m2); Glucose 123 mg/dL (74-106); NT-proBNP 252 pg/mL (<300); Potassium 3.4 mmol/L (3.5-5.1); Sodium 143 mmol/L (136-145); Total Protein 7.3 g/dL (6.4-8.2); Troponin I < 50 ng/L (<or=60)
[2022-12-22] MEDS: Omnipaque 350 MG/ML 100 ML BTL IJ (18:44)
[2022-12-22] MEDS: Normal Saline - Diluent 50 ML VIAL IJ (18:48)
[2022-12-22] MEDS: Normal Saline Flush 10 ML SYR IVP (18:49)
--- NOTE | 2022-12-22 18:50 | DI.CT_ITS ---
Exam(s) CT CHEST PE CTA EXAM: CT CHEST PE CTA CLINICAL HISTORY: chest pain, hypoxia, recent surgery. TECHNIQUE: Imaging Protocol: Axial CT angiography was performed with multi-slice acquisition and mu lti-planar and/or 3D reconstructions. CONTRAST MATERIAL: Intravenous: Omnipaque 350 contrast volume:100 mL COMPARISON: CT CT ABD/PELVIS W/ CONTRAST from 09/24/[address] ABDOMEN PELVIS W from 10/29/2022 FINDINGS: Tracheobronchial tree: Patent where visualized. Pulmonary parenchyma: No consolidation or dominant measurable mass. No architectural distortion. Pulmonary Arteries: No evidence of filling defect to suggest pulmonary emboli. Mediastinum and Mar[place]ell: No dominant adenopathy or fluid collection. The esophagus is unremarkable. Visualized thyroid gland: Unremarkable. Pleura: There is a very tiny left pleural effusion. No right pleural effusion. No pneumothorax. Heart: Mild cardiomegaly. Coronary artery calcifications are present. No pericardial effusion. Aorta: Thoracic aorta non-dilated. No evidence of dissection. Atherosclerosis is present. Upper abdomen: Unremarkable. Soft tissues: Unremarkable. Bones: Within normal limits for the patient's age.There is a left shoulder prosthesis in place. IMPRESSION: No evidence of pulmonary embolism, thoracic aortic dissection or aneurysm. RADIATION DOSE DELIVERED: 494.73mGy.cm Total DLP DATA REPOSITORY: All CT scans at this facility are submitted to the National Radiology Data Registry (NRDR) Dose Index Registry (DIR) with the [employer] (ACR). RADIATION OPTIMIZATION: All CT scans at this facility use at least one of these dose optimization te chniques: automated exposure control; mA and/or kV adjustment per patient size (includes targeted exa ms where dose is matched to clinical indication); or iterative reconstruction.
--- NOTE | 2022-12-22 19:11 | DI.VRAD_ITS ---
PROCEDURE INFORMATION: Exam: CTA Chest With Contrast Exam date and time: 12/22/2022 18:43 Age: 47 years old Clinical indication: Other: Chest pain, hypoxia, recent surgery; Prior surgery; Surgery type: Cardiac stent surgery; Patient HX: Ortho surgery 1 week ago TECHNIQUE: Imaging protocol: Computed tomographic angiography of the chest with contrast. 3D rendering (Not supervised by radiologist): MIP and/or 3D reconstructed images were created by the technologist. Radiation optimization: All CT scans at this facility use at least one of these dose optimization techniques: automated exposure control; mA and/or kV adjustment per patient size (includes targeted exams where dose is matched to clinical indication); or iterative reconstruction. Contrast material: OMNIPAQUE 350; Contrast volume: 100 ml; Contrast route: INTRAVENOUS (IV); COMPARISON: XR PORTABLE CHEST AP 11/20/2022 17:56 FINDINGS: Pulmonary arteries: No pulmonary emboli. Aorta: No aortic aneurysm. No aortic dissection. Lungs: Scattered microatelectasis without airspace disease to suggest pneumonia or infarct. There are a few miniscule pulmonary nodules. Follow-up as per institutional protocol. Pleural spaces: Trace left pleural fluid. No pneumothorax. Heart: Moderate cardiomegaly, thinned appearance of the left ventricular apex suggests infarction at this location, echocardiography may be helpful for further assessment. Lymph nodes: No enlarged lymph nodes. Bones/joints: A left glenohumeral arthroplasty is partially seen. Degenerative changes in the spine. No acute fracture or subluxation. Soft tissues: No suspicious lesions. IMPRESSION: 1. No pulmonary emboli are seen. 2. Trace left pleural fluid. 3. Additional findings as described. Dictated and Authenticated by: Katie Rodriguez MD. Ordering:NYDIA Weiner MD
[2022-12-22 19:31] LABS: Bilirubin Negative (Negative); Blood Trace-intact (Negative); Clarity Clear (Clear); Glucose 500 mg/dL (Negative); Ketones Negative (Negative); Leukocyte Esterase Trace (Negative); Nitrite Negative (Negative); Urobilinogen 0.2 mg/dL (Up to 0.2); pH 6.5 (5-8)
[2022-12-22 19:41] LABS: Bacteria Rare HPF (Negative); C & S Indicated? Yes; Casts Negative LPF (Negative); Crystals Negative HPF (Negative); Epithelial Cells Rare HPF (Negative); Mucus Negative (Negative); RBC 0-2 HPF (0-2); WBC 0-2 HPF (0-5)
[2022-12-22 19:49] LABS: *AMPHETAMINES SCREEN URINE Negative (Negative); *BARBITURATES SCREEN URINE Negative (Negative); *BENZODIAZEPINES SCREEN URINE Negative (Negative); Cannabinoids THC Negative (Negative); Cocaine Screen,Urine Negative (Negative); METHADONE URINE SCREEN Positive (Negative); OPIATES URINE SCREEN Negative (Negative)
[2022-12-22 19:55] LABS: Tricyclic Antidepressants Negative (Negative)
[2022-12-22 20:22] LABS: Troponin I < 50 ng/L (<or=60)
--- NOTE | 2022-12-22 20:44 | W.EDPROG ---
Date of service: 12/22/22 Time of Service: 20:44 Medical Decision Making patient signed out to me with plan on d/c if second trop negative, discussed with pt that seconds troponin is negative, she is stable and comfortable with d/c and will f/u with her pcp, return precautions given Discharge Plan Disposition Patient Disposition: Home Condition: Stable Discharge Details Clinical Impression: Chest pain Primary Care Provider: Antonia Bertrand ED Provider: Wilian Castillo Reynolds Meds and New Rx's Prescriptions: Continued gabapentin 600 mg tablet 600 mg PO DIRECTED Rx Instructions: 600 mg PO q am and at noon; 1200 mg PO Qpm levetiracetam 1,000 mg tablet 1,000 mg PO Q12H Qty: 60 5RF ibuprofen 600 mg tablet 600 mg PO TID PRN (Reason: pain) Qty: 30 0RF cyclobenzaprine 10 mg tablet 10 mg PO TID PRN (Reason: muscle spasm) Qty: 20 0RF acetaminophen 325 mg capsule 975 mg PO Q8H PRN atorvastatin [Lipitor] 80 mg tablet 80 mg PO DAILY clopidogrel [Plavix] 75 mg tablet 75 mg PO DAILY Tresiba FlexTouch U-200 200 unit/mL (3 mL) insulin pen 120 unit subcut DAILY magnesium oxide [MagOx] 400 mg (241.3 mg magnesium) tablet 400 mg PO BID nitroglycerin [Nitrostat] 0.4 mg tablet, sublingual 0.4 mg sublingual Q5M PRN Rx Instructions: do not exceed 3 doses per episode albuterol sulfate 2.5 mg /3 mL (0.083 %) solution for nebulization 2.5 mg inhalation Q6H PRN insulin lispro [Humalog KwikPen Insulin] 100 unit/mL insulin pen 10 unit subcut QID ferrous sulfate 325 mg (65 mg iron) tablet,delayed release (DR/EC) 325 mg PO BID metoprolol succinate [Toprol XL] 25 mg tablet extended release 24 hr 25 mg PO DAILY Patient Comments: TAKE ONE TABLET BY MOUTH EVERY DAY carvedilol 3.125 mg Tablet 3.125 mg PO BID Qty: 60 0RF pantoprazole [Protonix] 40 mg tablet,delayed release (DR/EC) 40 mg PO BID Qty: 60 0RF Victoza 3-Tanmay 0.6 mg/0.1 mL (18 mg/3 mL) pen injector 1.8 mg SUBCUT DAILY Qty: 0 0RF Patient Comments: INJECT 0.6 MG UNDER THE SKIN ONCE DAILY TITRATE UP TOLERATED TO 1.2 MG DAILY, THEN MAINTAINANCE AT 1.8 MG DAILY naloxone [Narcan] 4 mg/actuation spray,non-aerosol 4 mg intranasal Q2-3M PRNQty: 2 0RF Rx Instructions: spray 1 dose into ONE nostril; alternate nostrils w each dose until help arrives methadone 10 mg/5 mL Solution 120 mg PO DAILY carboxymethylcellulose sodium [Refresh Plus] 0.5 % Dropperette 1 drp OU QID Qty: 50 0RF potassium chloride 10 mEq capsule, extended release 10 meq PO DAILY Patient Comments: TAKE ONE CAPSULE BY MOUTH EVERY DAY torsemide 20 mg tablet 40 mg PO DAILY Patient Comments: TAKE ONE TABLET BY MOUTH EVERY DAY cetirizine [Zyrtec] 10 mg tablet 10 mg PO DAILY PRN PRN (Reason: Allergy Symptoms) Patient Comments: TAKE ONE TABLET BY MOUTH EVERY DAY NEEDED aspirin [Adult Low Dose Aspirin] 81 mg tablet,delayed release (DR/EC) 81 mg PO DAILY Patient Comments: TAKE ONE TABLET BY MOUTH EVERY DAY citalopram [Celexa] 20 mg tablet 20 mg PO DAILY Patient Comments: TAKE ONE TABLET BY MOUTH EVERY DAY benzonatate 100 mg capsule 100 mg PO TID PRN PRN (Reason: Cough) Patient Comments: TAKE ONE CAPSULE BY MOUTH THREE TIMES A DAY NEEDED folic acid 1 mg tablet 1 mg PO DAILY Patient Comments: TAKE ONE TABLET BY MOUTH EVERY DAY albuterol sulfate [ProAir HFA] 90 mcg/actuation HFA aerosol inhaler 2 inh INHALATION Q3H PRN PRN (Reason: Shortness Of Breath Or Wheezing) Patient Comments: INHALE TWO PUFFS BY MOUTH EVERY 3 HOURS NEEDED colchicine [Colcrys] 0.6 mg tablet 0.6 mg PO BID Patient Comments: TAKE ONE TABLET BY MOUTH TWICE A DAY Advair HFA 45-21 mcg/actuation HFA aerosol inhaler 2 inh INHALATION BID Patient Comments: INHALE TWO PUFFS BY MOUTH TWICE A DAY Jardiance 10 mg tablet 10 mg PO DAILY Patient Comments: TAKE ONE TABLET BY MOUTH EVERY DAY potassium chloride 20 mEq tablet,ER particles/crystals 20 meq PO BID Qty: 10 0RF cefadroxil 500 mg capsule 500 mg PO BID Qty: 28 0RF oxycodone 5 mg tablet 5 mg PO Q8H PRN (Reason: Pain, Severe) Qty: 15 0RF baclofen 10 mg tablet 10 mg PO TID PRNQty: 30 0RF Discharge Instructions Instructions: Chest Pain (ED) Additional Instructions: your work up today did not show concerning findings follow up with your primary care provider within 1 week if you feel more ill, have severe worsening pain or difficulty breathing return to the emergency department
[2022-12-22 21:11] VITALS: BP 103/59; PULSE 91; RESP 18; O2SAT 94
== END 2022-12-22 21:15 | disposition home or self-care (01) ==
PROVIDERS: Emergency Medicine; Emergency Provider Emergency Medicine; PCP Nurse Practitioner Family
DX: R07.9 Chest pain, unspecified (principal); I50.9 Heart failure, unspecified; I25.2 Old myocardial infarction; Z79.82 Long term (current) use of aspirin; Z86.16 Personal history of COVID-19; I95.9 Hypotension, unspecified; R60.0 Localized edema; Z79.899 Other long term (current) drug therapy
CPT/HCPCS: 36415; 71275; 80053; 80307; 81025; 93005; 99285; 81003; 81015; 83880; 84484; 85025; 85610; 85730; 87086; 93010; J3490

== ENCOUNTER 2022-12-31 19:48 | Emergency (ER) | payer MEDICARE, MEDICAID, SELFPAY ==
[2022-12-31] VITALS (25 sets, daily range): BP systolic 78–101; BP diastolic 25–72; PULSE 64–83; RESP 11–22; TEMP 36.9; O2SAT 90–98
--- NOTE | 2022-12-31 19:30 | RT.EKG_ITS ---
APPROVED REPORT Exam: Resting ECG Reason for Exam: sob Patient Location: E HR:66 bpm ECG Measurements Heart Rate 66 AXIS MT 187 P 30 QRSd 103 QRS 28 QT 474 T 79 QTc 496 Conclusion Sinus rhythm...normal P axis, V-rate 60- 99 Anteroseptal infarct, old...Q >40mS, V1-V2 sinus rhtyhm, normal axis, normal intervals, deep q waves anterior leads
--- NOTE | 2022-12-31 20:00 | DI.CT_ITS ---
Exam(s) CT HEAD WO EXAM: CT HEAD WO CLINICAL HISTORY: loss of consciousness. TECHNIQUE: Imaging Protocol: Axial computed tomography images with coronal and sagittal reformatted images were created and reviewed COMPARISON: CT CT HEAD CERVICAL SPINE WO from 11/13/2022 FINDINGS: There are no skull fractures. There is no fluid in the visualized paranasal sinuses. There is no evidence of intracranial hemorrhage, mass effect, or shift of midline structures. There are no extra-axial fluid collections. The ventricles are not enlarged or shifted and there is no blo od within the ventricular system nor within the basal cisterns. IMPRESSION: No acute intracranial findings on this noninfused CT scan of the brain. RADIATION DOSE DELIVERED: 852.92mGy.cm Total DLP DATA REPOSITORY: All CT scans at this facility are submitted to the National Radiology Data Registry (NRDR) Dose Index Registry (DIR) with the [employer] ([employer]). RADIATION OPTIMIZATION: All CT scans at this facility use at least one of these dose optimization te chniques: automated exposure control; mA and/or kV adjustment per patient size (includes targeted exa ms where dose is matched to clinical indication); or iterative reconstruction.
--- NOTE | 2022-12-31 20:00 | DI.RAD_ITS ---
Exam(s) XR CHEST 1V IN DI DEPT EXAM: XR CHEST 1V IN DI DEPT CLINICAL HISTORY: loc. TECHNIQUE: 2D digital imaging was performed. COMPARISON: CR,XR XR PORTABLE CHEST AP from 11/20/2022 FINDINGS: Single AP portable view. Heart size is upper normal. The mediastinum is not widened. Lungs are clear. No infiltrates nor obvious pleural effusions. Left shoulder prosthesis again noted. IMPRESSION: No acute pulmonary findings on this single AP portable view of the chest. DATA REPOSITORY: RADIATION DOSE DELIVERED:
--- NOTE | 2022-12-31 20:04 | ED.GENADUL_ITS ---
Discharge Plan Disposition Patient Disposition: Home Discharge Details Chief Complaint: Seizure Clinical Impression: Fatigue, Polypharmacy Primary Care Provider: Antoina Bertrand ED Provider: Husam Butt Home Meds and New Rx's Prescriptions: No Action gabapentin 600 mg tablet 600 mg PO DIRECTED Rx Instructions: 600 mg PO q am and at noon; 1200 mg PO Qpm levetiracetam 1,000 mg tablet 1,000 mg PO Q12H Qty: 60 5RF ibuprofen 600 mg tablet 600 mg PO TID PRN (Reason: pain) Qty: 30 0RF cyclobenzaprine 10 mg tablet 10 mg PO TID PRN (Reason: muscle spasm) Qty: 20 0RF acetaminophen 325 mg capsule 975 mg PO Q8H PRN atorvastatin [Lipitor] 80 mg tablet 80 mg PO DAILY clopidogrel [Plavix] 75 mg tablet 75 mg PO DAILY Tresiba FlexTouch U-200 200 unit/mL (3 mL) insulin pen 120 unit subcut DAILY magnesium oxide [MagOx] 400 mg (241.3 mg magnesium) tablet 400 mg PO BID nitroglycerin [Nitrostat] 0.4 mg tablet, sublingual 0.4 mg sublingual Q5M PRN Rx Instructions: do not exceed 3 doses per episode albuterol sulfate 2.5 mg /3 mL (0.083 %) solution for nebulization 2.5 mg inhalation Q6H PRN insulin lispro [Humalog KwikPen Insulin] 100 unit/mL insulin pen 10 unit subcut QID ferrous sulfate 325 mg (65 mg iron) tablet,delayed release (DR/EC) 325 mg PO BID metoprolol succinate [Toprol XL] 25 mg tablet extended release 24 hr 25 mg PO DAILY Patient Comments: TAKE ONE TABLET BY MOUTH EVERY DAY carvedilol 3.125 mg Tablet 3.125 mg PO BID Qty: 60 0RF pantoprazole [Protonix] 40 mg tablet,delayed release (DR/EC) 40 mg PO BID Qty: 60 0RF Victoza 3-Tanmay 0.6 mg/0.1 mL (18 mg/3 mL) pen injector 1.8 mg SUBCUT DAILY Qty: 0 0RF Patient Comments: INJECT 0.6 MG UNDER THE SKIN ONCE DAILY TITRATE UP TOLERATED TO 1.2 MG DAILY, THEN MAINTAINANCE AT 1.8 MG DAILY naloxone [Narcan] 4 mg/actuation spray,non-aerosol 4 mg intranasal Q2-3M PRNQty: 2 0RF Rx Instructions: spray 1 dose into ONE nostril; alternate nostrils w each dose until help arrives methadone 10 mg/5 mL Solution 130 mg PO DAILY carboxymethylcellulose sodium [Refresh Plus] 0.5 % Dropperette 1 drp OU QID Qty: 50 0RF potassium chloride 10 mEq capsule, extended release 10 meq PO DAILY Patient Comments: TAKE ONE CAPSULE BY MOUTH EVERY DAY torsemide 20 mg tablet 40 mg PO DAILY Patient Comments: TAKE ONE TABLET BY MOUTH EVERY DAY cetirizine [Zyrtec] 10 mg tablet 10 mg PO DAILY PRN PRN (Reason: Allergy Symptoms) Patient Comments: TAKE ONE TABLET BY MOUTH EVERY DAY NEEDED aspirin [Adult Low Dose Aspirin] 81 mg tablet,delayed release (DR/EC) 81 mg PO DAILY Patient Comments: TAKE ONE TABLET BY MOUTH EVERY DAY citalopram [Celexa] 20 mg tablet 20 mg PO DAILY Patient Comments: TAKE ONE TABLET BY MOUTH EVERY DAY benzonatate 100 mg capsule 100 mg PO TID PRN PRN (Reason: Cough) Patient Comments: TAKE ONE CAPSULE BY MOUTH THREE TIMES A DAY NEEDED folic acid 1 mg tablet 1 mg PO DAILY Patient Comments: TAKE ONE TABLET BY MOUTH EVERY DAY albuterol sulfate [ProAir HFA] 90 mcg/actuation HFA aerosol inhaler 2 inh INHALATION Q3H PRN PRN (Reason: Shortness Of Breath Or Wheezing) Patient Comments: INHALE TWO PUFFS BY MOUTH EVERY 3 HOURS NEEDED colchicine [Colcrys] 0.6 mg tablet 0.6 mg PO BID Patient Comments: TAKE ONE TABLET BY MOUTH TWICE A DAY Advair HFA 45-21 mcg/actuation HFA aerosol inhaler 2 inh INHALATION BID Patient Comments: INHALE TWO PUFFS BY MOUTH TWICE A DAY Jardiance 10 mg tablet 10 mg PO DAILY Patient Comments: TAKE ONE TABLET BY MOUTH EVERY DAY potassium chloride 20 mEq tablet,ER particles/crystals 20 meq PO BID Qty: 10 0RF cefadroxil 500 mg capsule 500 mg PO BID Qty: 28 0RF oxycodone 5 mg tablet 5 mg PO Q8H PRN (Reason: Pain, Severe) Qty: 15 0RF baclofen 10 mg tablet 10 mg PO TID PRNQty: 30 0RF Discharge Instructions Instructions: Fatigue (ED) Additional Instructions: Please follow with your primary care physician. Medical Decision Making 47-year-old female history of pulmonary hypertension seizure disorder coronary disease, presents with altered mental status found with decreased responsiveness by her son this evening, patient has since returned to her baseline, fingerstick normal in the field normal temperature. No external signs of trauma. Patient Dors is atraumatic gradual onset headache. No nausea no vomiting no chest pain or shortness of breath. Patient is normotensive normal heart rate normoxic on room air however does appear tired. Moving all extremities without focal deficit. Chronic appearing wound right knee appearing to be healing by secondary intent with some granulation tissue and small area of purulence, patient endorses that she is on antibiotic for this at this time. Patient's right lower extremity is in compression boot. Consider postictal state versus hypercarbia versus viral syndrome versus polypharmacy as patient is on baclofen gabapentin and cyclobenzaprine versus substance use versus must consider infectious etiology such as pneumonia, lower suspicion for intracranial process such as CVA or intracranial hemorrhage. Will obtain basic labs urinalysis troponin EKG chest x-ray CT head. Disposition pending reassessment. 21: 59 patient resting comfortably no acute distress given persistent somnolence and concern for polypharmacy patient was given low-dose of Narcan 0.2 mg IV with great response. Patient sitting up in bed going through her belongings, no respiratory distress. Patient Dors that she took a Flexeril this evening. Counseled to consider not mixing multiple medications at once. Patient calling family to pick her up. HPI General Date/Time Provider Initiated Documentation: 12/31/22 19:53 . HPI Narrative: 47-year-old female history of seizure disorder on antiepileptics, diabetes, coronary disease, pulmonary hypertension, presents found with altered mental status by her adult son this evening shortly before arrival, concerned that patient may have had a seizure at home. Patient endorsing gradual onset atraumatic headache. Patient has returned to near baseline uses oxygen at home intermittently as needed no shortness of breath or chest pain at this time; fingerstick glucose and temperature normal per EMS Related Data Home Medications Medication Instructions Recorded Confirmed acetaminophen 325 mg capsule 975 mg PO Q8H PRN 10/18/21 12/31/22 albuterol sulfate 2.5 mg/3 mL 2.5 mg inhalation Q6H PRN 10/18/21 12/31/22 (0.083 %) solution for nebulization atorvastatin 80 mg tablet (Lipitor) 80 mg PO DAILY 10/18/21 12/31/22 clopidogrel 75 mg tablet (Plavix) 75 mg PO DAILY 10/18/21 12/31/22 insulin degludec 200 unit/mL (3 120 unit subcut DAILY 10/18/21 12/31/22 mL) subcutaneous pen (Tresiba FlexTouch U-200 insulin) insulin lispro 100 unit/mL 10 unit subcut QID 10/18/21 12/31/22 subcutaneous pen (Humalog KwikPen (U-100) Insulin) magnesium oxide 400 mg (241.3 mg 400 mg PO BID 10/18/21 12/31/22 magnesium) tablet (MagOx) nitroglycerin 0.4 mg sublingual 0.4 mg sublingual Q5M PRN 10/18/21 12/31/22 tablet (Nitrostat) methadone 10 mg/5 mL oral solution 130 mg PO DAILY 03/15/22 12/31/22 carboxymethylcellulose sodium 0.5 1 drp OU QID #50 ea 08/15/22 12/31/22 % eye drops in a dropperette (Refresh Plus) albuterol sulfate 90 mcg/actuation 2 inh inhalation Q3H PRN PRN 10/29/22 0 12/31/22 aerosol inhaler (ProAir HFA) Shortness Of Breath Or Wheezing aspirin 81 mg tablet,delayed 81 mg PO DAILY 10/29/22 12/31/22 release (Adult Low Dose Aspirin) benzonatate 100 mg capsule 100 mg PO TID PRN PRN Cough 10/29/22 12/31/22 cetirizine 10 mg tablet (Zyrtec) 10 mg PO DAILY PRN PRN Allergy 10/29/22 12/31/22 Symptoms citalopram 20 mg tablet (Celexa) 20 mg PO DAILY 10/29/22 12/31/22 colchicine 0.6 mg tablet (Colcrys) 0.6 mg PO BID 10/29/22 12/31/22 empagliflozin 10 mg tablet 10 mg PO DAILY 10/29/22 12/31/22 (Jardiance) fluticasone propionate 45 2 inh inhalation BID 10/29/22 12/31/22 mcg-salmeterol 21 mcg/actuation HFA inhaler (Advair HFA) folic acid 1 mg tablet 1 mg PO DAILY 10/29/22 12/31/22 potassium chloride 10 mEq 10 meq PO DAILY 10/29/22 12/31/22 capsule,extended release torsemide 20 mg tablet 40 mg PO DAILY 10/29/22 12/31/22 potassium chloride 20 mEq 20 meq PO BID #10 tabs 11/13/22 12/31/22 tablet,extended release(part/cryst) metoprolol succinate 25 mg 25 mg PO DAILY 11/23/22 12/31/22 tablet,extended release 24 hr (Toprol XL) carvedilol 3.125 mg tablet 3.125 mg PO BID #60 tabs 11/29/22 12/31/22 liraglutide 0.6 mg/0.1 mL (18 mg/3 1.8 mg (0.3 mL) subcut DAILY #0 mL 11/29/22 12/31/22 mL) subcutaneous pen injector (DRB Systemstoza 3-Tanmay) naloxone 4 mg/actuation nasal 4 mg intranasal Q2-3M PRN #2 ea 11/29/22 12/31/22 spray (Narcan) pantoprazole 40 mg tablet,delayed 40 mg PO BID #60 tabs 11/29/22 12/31/22 release (Protonix) ferrous sulfate 325 mg (65 mg 325 mg PO BID 12/15/22 12/31/22 iron) tablet,delayed release gabapentin 600 mg tablet 600 mg PO DIRECTED 12/15/22 12/31/22 levetiracetam 1,000 mg tablet 1,000 mg PO Q12H #60 tabs 12/15/22 12/31/22 baclofen 10 mg tablet 10 mg PO TID PRN #30 tabs 12/16/22 12/31/22 cefadroxil 500 mg capsule 500 mg PO BID #28 caps 12/16/22 12/31/22 oxycodone 5 mg tablet 5 mg PO Q8H PRN Pain, Severe #15 12/16/22 12/23/22 tabs cyclobenzaprine 10 mg tablet 10 mg PO TID PRN muscle spasm #20 12/22/22 12/31/22 tabs ibuprofen 600 mg tablet 600 mg PO TID PRN pain #30 tabs 12/22/22 12/31/22 Previous Rx's Medication Instructions Recorded carboxymethylcellulose sodium 0.5 1 drp OU QID #50 ea 08/15/22 % eye drops in a dropperette (Refresh Plus) potassium chloride 20 mEq 20 meq PO BID #10 tabs 11/13/22 tablet,extended release(part/cryst) carvedilol 3.125 mg tablet 3.125 mg PO BID #60 tabs 11/29/22 liraglutide 0.6 mg/0.1 mL (18 mg/3 1.8 mg (0.3 mL) subcut DAILY #0 mL 11/29/22 mL) subcutaneous pen injector (DRB Systemstoza 3-Tanmay) naloxone 4 mg/actuation nasal 4 mg intranasal Q2-3M PRN #2 ea 11/29/22 spray (Narcan) pantoprazole 40 mg tablet,delayed 40 mg PO BID #60 tabs 11/29/22 release (Protonix) levetiracetam 1,000 mg tablet 1,000 mg PO Q12H #60 tabs 12/15/22 baclofen 10 mg tablet 10 mg PO TID PRN #30 tabs 12/16/22 cefadroxil 500 mg capsule 500 mg PO BID #28 caps 12/16/22 oxycodone 5 mg tablet 5 mg PO Q8H PRN Pain, Severe #15 12/16/22 tabs cyclobenzaprine 10 mg tablet 10 mg PO TID PRN muscle spasm #20 12/22/22 tabs ibuprofen 600 mg tablet 600 mg PO TID PRN pain #30 tabs 12/22/22 Allergies Allergy/AdvReac Type Severity Reaction Status Date / Time Bleach (Sodium Hypochlorite) Allergy Unknown Verified 12/22/22 16:47 mushroom Allergy Unknown Verified 12/22/22 16:47 Penicillins Allergy Unknown Verified 12/22/22 16:47 tramadol Allergy Unknown Verified 12/22/22 16:47 mold Allergy Verified 12/22/22 16:47 trazodone Allergy Verified 12/22/22 16:47 General Stated Complaint: Seizure SHANIA: 2 Review of Systems Narrative: Review of Systems Constitutional: Fatigue Eyes: negative ENT: negative Cardiovascular: negative Respiratory: negative Gastrointestinal: negative : negative Musculoskeletal: negative Skin: negative Neurologic: Altered mental status Psych: negative PFSH All Active Problems (Updated 12/31/22 @ 22:01 by Husam Butt MD) Fatigue (Acute) Polypharmacy (Acute) Chest pain (Acute) Fracture of tibial shaft, right, closed (Acute) Cellulitis of right leg (Acute) Encounter for postoperative wound check (Acute) Opioid dependence (Chronic) Recurrent episodes of unresponsiveness (Acute) Syncope (Chronic) Closed fracture of right fibula and tibia (Acute) Closed fracture of shaft of right tibia and fibula (Acute 11/23/22) s/p IMN of Right Tibia - 11/24/22 QT prolongation (Chronic) Nonspecific paroxysmal spell (Acute) Episode of unresponsiveness (Acute) Chronic systolic CHF (congestive heart failure) (Chronic) Ischemic cardiomyopathy (Acute) Obstructive sleep apnea (Chronic) Hallucinations (Acute) Chronic respiratory failure with hypoxia (Chronic) Fracture of finger, left (Acute) Syncopal episodes (Chronic) Acute hypokalemia (Acute) Observed seizure-like activity (Acute) Opioid dependence on agonist therapy (Acute) Leg wound, left (Acute) Facial palsy (Acute) Pulmonary HTN (Acute) Heart failure (Acute) 09/02/21 with DC low EF Non-STEMI (non-ST elevated myocardial infarction) (Acute) 09/02/21 Vertigo (Acute) GERD (gastroesophageal reflux disease) (Chronic) Essential hypertension (Acute) Asthma (Chronic) Depression (Chronic) PTSD (post-traumatic stress disorder) (Acute) Tobacco abuse disorder (Acute) Hypokalemia (Acute) Chronic gout (Acute) Hyperlipidemia (Acute) Diabetic peripheral neuropathy (Acute) Type 2 diabetes mellitus (Chronic) Medical History COVID was vaccinated but contracted Covid 06/22 History of gastrointestinal ulcer Surgical History H/O bone graft left knee H/O shoulder surgery x4 and ending with a full replacement H/O total hysterectomy History of appendectomy History of colonoscopy History of esophagogastroduodenoscopy (EGD) gastritis with gastric ulcers Previous section x4 delivery Family History Mother Cancer Heart disease Obstructive lung disease Depression Arthritis Degeneration of intervertebral disc Father Alcohol use disorder Brother Hypertension Mood disorder Maternal Grandfather Alcohol use disorder Maternal Grandmother Breast cancer Maternal Aunt Breast cancer Paternal Aunt Breast cancer Social History Smoking/Tobacco Use Status: Current every day Tobacco Type: cigarettes Tobacco: How many years used: 34 Smoking risk assessment performed?: Yes Alcohol Intake: current Alcohol Intake frequency: holidays/special occasions only Alcohol type: beer Drug use: Never Substance use type: does not use Do you feel safe at home: Yes Do you feel safe in your relationship?: Yes Exam Narrative Exam Narrative: Physical Examination General: alert, awake, cooperative, resting comfortably, appears tired HEENT: normocephalic, atraumatic; PERRL, EOM intact, conjunctiva normal; no nasal discharge; moist mucous membranes, oral and pharyngeal mucosa normal, tolerating secretions Neck: supple, trachea midline; full ROM Chest: normal to inspection Respiratory: normal respiratory effort, speaking in full sentences, clear to auscultation, no wheezing, rales or rhonchi Cardiac: regular rate, regular rhythm, S1S2 intact, no murmurs rubs or gallops GI: abdomen soft, non-tender, non-distended; no palpable mass or hepatosplenomegaly Skin: Patient does have 5 to 6 cm long linear wound that appears to be healing by secondary intent on her right knee some granulation tissue mild purulent area Neuro: AAOx3, normal speech, moving all extremities; 5 out of 5 strength upper and lower extremities, no aphasia Extremities: Right lower extremity in compression boot Psych: Appropriate mood and affect Course Vital Signs Vital signs: Vital Signs Temperature 36.9 C 12/31/22 19:53 Pulse 68 12/31/22 19:53 Respiratory Rate 21 12/31/22 19:53 Blood Pressure 101/62 12/31/22 19:53 Pulse Oximetry 96 12/31/22 19:53 Temperature 36.9 C 12/31/22 19:53 Temperature Source Temporal Artery Scan 12/31/22 19:53 Pulse 68 12/31/22 19:53 Respiratory Rate 21 12/31/22 19:53 Respiratory Effort Normal 12/31/22 19:53 Blood Pressure 101/62 12/31/22 19:53 Blood Pressure Position Supine 12/31/22 19:53 Pulse Oximetry 96 12/31/22 19:53 Oxygen Delivery Method Room Air 12/31/22 19:53 Oxygen Flow Rate 0 12/31/22 19:53 Pain Level 8 12/31/22 19:53
[2022-12-31 20:12] LABS: Abs Immature Grans 0.01 10^3/uL (0.0-0.06); Absolute Basophil Count 0.03 10^3/uL (0.0-0.2); Absolute Eosinophil Count 0.41 10^3/uL (0.0-0.7); Absolute Lymphocyte Count 3.19 10^3/uL (1.2-3.4); Absolute Monocyte Count 0.82 10^3/uL (0.1-0.8); Absolute Neutrophil Count 2.73 10^3/uL (1.2-6.7); BE (Venous) 5 mmol/L (-2-3); Basophils % 0.4; Eosinophils % 5.7; HCO3 (Venous) 30 mmol/L (23-28); HCT 37.5 % (36.0-46.0); HGB 12.4 g/dL (11.2-15.7); Immature Grans % 0.1; Lymphocytes % 44.4; MCHC 33.1 % (32.0-36.0); MCV 88 fL (80-95); MPV 9.7 fL (8.0-11.0); Monocytes % 11.4; O2 Sat (Venous) 82 %; Platelet Count 322 10^3/uL (130-400); RBC 4.27 10^6/uL (3.93-5.22); RDW 14.3 % (11.7-14.6); RDW-SD 46.1 fL; TCO2 (Venous) 28 mmol/L (24-29); WBC 7.19 10^3/uL (4.4-10.8); pCO2 (Venous) 54 mmHg (41-51); pH (Venous) 7.35 (7.31-7.41); pO2 (Venous) 47 mmHg
[2022-12-31] MEDS: ACETAMINOPHEN 1,000 MG/100 ML BTL 400 MG IVPB (20:14)
[2022-12-31] MEDS: Normal Saline 500 ML 1000 ML IV (20:20)
[2022-12-31 20:39] LABS: ALT 22 U/L (14-59); AST 17 U/L (15-37); Albumin 3.4 g/dL (3.4-5.0); Alkaline Phosphatase 135 U/L (46-116); Anion Gap 4.6 mmol/L (3-11); BUN 35 mg/dL (7-18); Bilirubin, Total 0.1 mg/dL (0.2-1.0); CO2 32.4 mmol/L (21.0-32.0); CREATININE 1.2 mg/dL (0.55-1.02); Calcium 8.6 mg/dL (8.5-10.1); Chloride 105 mmol/L (98-107); Estimated GFR 56.19 (mL/min/1.73m2); Glucose 130 mg/dL (74-106); Potassium 3.5 mmol/L (3.5-5.1); Sodium 142 mmol/L (136-145); TSH (W/Ref FT4) 4.65 uIU/mL (0.36-3.74); Total Protein 6.7 g/dL (6.4-8.2); Troponin I < 50 ng/L (<or=60)
[2022-12-31 20:40] LABS: ETHANOL BLOOD < 3.0 mg/dL (<10)
[2022-12-31 20:57] LABS: FREE T4 0.59 ng/dL (0.76-1.46)
[2022-12-31 21:00] LABS: Bilirubin Negative (Negative); Blood Negative (Negative); Clarity Clear (Clear); Glucose 500 mg/dL (Negative); Ketones Negative (Negative); Leukocyte Esterase Negative (Negative); Nitrite Negative (Negative); Urobilinogen 0.2 mg/dL (Up to 0.2); pH 5.5 (5-8)
[2022-12-31 21:18] LABS: *AMPHETAMINES SCREEN URINE Negative (Negative); *BARBITURATES SCREEN URINE Negative (Negative); *BENZODIAZEPINES SCREEN URINE Negative (Negative); Cannabinoids THC Negative (Negative); Cocaine Screen,Urine Negative (Negative); METHADONE URINE SCREEN Positive (Negative); OPIATES URINE SCREEN Negative (Negative); Tricyclic Antidepressants Negative (Negative)
[2022-12-31] MEDS: Naloxone 0.4 MG/ML VIAL (21:33)
--- NOTE | 2022-12-31 21:33 | DI.VRAD_ITS ---
PROCEDURE INFORMATION: Exam: CT Head Without Contrast Exam date and time: 12/31/2022 9:07 PM Age: 47 years old Clinical indication: Loss of consciousness TECHNIQUE: Imaging protocol: Computed tomography of the head without contrast. COMPARISON: CT HEAD CERVICAL SPINE WO 11/13/2022 8:13 PM FINDINGS: Brain: No evidence for acute transcortical infarct. No mass effect or midline shift. No extra-axial collection. No acute intracranial hemorrhage. Basal cisterns are patent. Cerebral ventricles: No ventriculomegaly. Paranasal sinuses: Visualized sinuses are unremarkable. No fluid levels. Mastoid air cells: Visualized mastoid air cells are well aerated. Bones/joints: Unremarkable. No acute fracture. Soft tissues: Unremarkable. IMPRESSION: No evidence for acute transcortical infarct, acute intracranial hemorrhage, or mass effect. Dictated and Authenticated by: Armando Alvarado MD. Ordering:NYDIA Weiner MD
--- NOTE | 2022-12-31 21:39 | NUR.NOTE ---
Nursing Note: This RN administerd 0.2mg of naloxone to this patient d/t her level of alertness per MD order. Pt will wake to voice commands but will close eyes and lay head back down. Pt also wakes to movement. Minimal result was noted after this dose was given. Will continue monitoring.
--- NOTE | 2022-12-31 21:45 | DI.VRAD_ITS ---
PROCEDURE INFORMATION: Exam: XR Chest Exam date and time: 12/31/2022 9:16 PM Age: 47 years old Clinical indication: Other: Loc TECHNIQUE: Imaging protocol: Radiologic exam of the chest. Views: 1 view. COMPARISON: XR PORTABLE CHEST AP 11/20/2022 5:56 PM FINDINGS: Lungs: Clear lungs. Pleural spaces: No pneumothorax. No sizable pleural effusion. Heart/Mediastinum: Mild cardiomegaly. Bones/joints: Left shoulder arthroplasty. IMPRESSION: Clear lungs. Dictated and Authenticated by: Armando Alvarado MD. Ordering:NYDIA Weiner MD
--- NOTE | 2023-01-01 10:48 | NUR.NOTE ---
Nursing Note: Accessed chart to determine orders for EKG and to determine whether or not one needs to be cancelled.
== END 2022-12-31 22:27 | disposition home or self-care (01) ==
PROVIDERS: Emergency Provider Emergency Medicine; PCP Nurse Practitioner Family
DX: R53.83 Other fatigue (principal); I10 Essential (primary) hypertension; E11.9 Type 2 diabetes mellitus without complications; I25.10 Atherosclerotic heart disease of native coronary artery without angina pectoris; G40.909 Epilepsy, unspecified, not intractable, without status epilepticus; Z86.16 Personal history of COVID-19; Z79.4 Long term (current) use of insulin; Z79.82 Long term (current) use of aspirin; Z79.899 Other long term (current) drug therapy
CPT/HCPCS: 36416; 80053; 80307; 82805; 82962; 93005; 96361; 96365; 99284; 70450; 71045; 80320; 81003; 84439; 84443; 84484; 85025; 93010; J0131; J2310

== ENCOUNTER → 2023-01-12 13:58 | Outpatient (BNVA) | payer MEDICARE, MEDICAID, SELFPAY | PROVIDERS: PCP Nurse Practitioner Family; Referring Provider Nurse Practitioner Family; Visit Provider Student in an Organized Health Care Education/Training Program | DX: Z47.89 Encounter for other orthopedic aftercare (principal); L03.115 Cellulitis of right lower limb; T81.31XA Disruption of external operation (surgical) wound, not elsewhere classified, initial encounter; E11.65 Type 2 diabetes mellitus with hyperglycemia; R60.0 Localized edema ==

== ENCOUNTER 2023-01-17 16:16 | Inpatient (IN) | payer MEDICARE, MEDICAID, SELFPAY ==
[2023-01-17 16:24] VITALS: BP 98/66; PULSE 92; RESP 16; TEMP 36.6; O2SAT 94
--- NOTE | 2023-01-17 16:43 | ED.GENADUL_ITS ---
Discharge Plan Disposition Patient Disposition: Admit to [facility] Condition: Stable Discharge Details Clinical Impression: Cellulitis of right leg Admit Date/Time: 01/17/23 17:24 Admit Provider: Stevenson Wisdom Attending Provider: Stevenson Wisdom Primary Care Provider: Antonia Bertrand ED Provider: Marleny Avila Medical Decision Making [id number]: Dr. Wisdom here at bedside for patient evaluation he recommends admission and milligram of hydromorphone. Labs ordered including blood cultures and wound culture, patient to be admitted per Dr. Wisdom. He will place orders. Informed patient of plan of care she verbalized understanding. Patient remained hemodynamically stable alert and oriented throughout the remainder of her stay and transported up to the floor when bed became available. This text was generated using [employer] system, please disregard any oddities of phrase or misspellings. Medical Records Medical records reviewed: Yes I reviewed the patient's medical records. HPI General Mode of arrival: ambulatory . Date/Time Provider Initiated Documentation: 01/17/23 16:17 . Limitations to Documentation: no limitations . Information obtained by: patient, RN notes reviewed and old records reviewed . HPI Narrative: 47-year-old female presents to the ER with a chief complaint of infected surgical wound to her right knee. Patient had a reduction internal fixation of right tib-fib fracture on November 24. She has been on multiple courses of antibiotics since which she reports have been upsetting her stomach. She notes wound dehiscence, she does have purulent drainage noted from the wound bed and increased redness warmth and drainage. She presents after being instructed to follow-up in the ER by orthopedic surgeon. Past medical history includes type 2 diabetes which is poorly controlled, tobacco abuse disorder, PTSD, depression asthma, GERD, heart failure pulmonary hypertension, cardiomyopathy. Related Data Home Medications Medication Instructions Recorded Confirmed albuterol sulfate 2.5 mg/3 mL 2.5 mg inhalation Q6H PRN 10/18/21 01/17/23 (0.083 %) solution for nebulization atorvastatin 80 mg tablet (Lipitor) 80 mg PO DAILY 10/18/21 01/17/23 clopidogrel 75 mg tablet (Plavix) 75 mg PO DAILY 10/18/21 01/17/23 insulin degludec 200 unit/mL (3 120 unit subcut DAILY 10/18/21 01/17/23 mL) subcutaneous pen (Tresiba FlexTouch U-200 insulin) insulin lispro 100 unit/mL unit subcut AC & HS PRN 10/18/21 01/13/23 subcutaneous pen (Humalog KwikPen (U-100) Insulin) magnesium oxide 400 mg (241.3 mg 400 mg PO BID 10/18/21 01/17/23 magnesium) tablet (MagOx) nitroglycerin 0.4 mg sublingual 0.4 mg sublingual Q5M PRN 10/18/21 01/17/23 tablet (Nitrostat) methadone 10 mg/5 mL oral solution 130 mg PO DAILY 03/15/22 01/17/23 carboxymethylcellulose sodium 0.5 1 drp OU QID #50 ea 08/15/22 01/17/23 % eye drops in a dropperette (Refresh Plus) albuterol sulfate 90 mcg/actuation 2 inh inhalation Q3H PRN PRN 10/29/22 aerosol inhaler (ProAir HFA) Shortness Of Breath Or Wheezing aspirin 81 mg tablet,delayed 81 mg PO DAILY 10/29/22 01/17/23 release (Adult Low Dose Aspirin) benzonatate 100 mg capsule 100 mg PO TID PRN PRN Cough 10/29/22 01/17/23 cetirizine 10 mg tablet (Zyrtec) 10 mg PO DAILY 10/29/22 01/17/23 citalopram 20 mg tablet (Celexa) 20 mg PO DAILY 10/29/22 01/17/23 colchicine 0.6 mg tablet (Colcrys) 0.6 mg PO BID 10/29/22 01/17/23 empagliflozin 10 mg tablet 10 mg PO DAILY 10/29/22 01/17/23 (Jardiance) fluticasone propionate 45 2 inh inhalation BID 10/29/22 01/17/23 mcg-salmeterol 21 mcg/actuation HFA inhaler (Advair HFA) folic acid 1 mg tablet 1 mg PO DAILY 10/29/22 01/17/23 potassium chloride 10 mEq 10 meq PO DAILY 10/29/22 01/17/23 capsule,extended release torsemide 20 mg tablet 20 mg PO BID 10/29/22 01/17/23 metoprolol succinate 25 mg 12.5 mg PO DAILY PRN PRN 11/23/22 01/17/23 tablet,extended release 24 hr (Toprol XL) carvedilol 3.125 mg tablet 3.125 mg PO BID #60 tabs 11/29/22 01/17/23 liraglutide 0.6 mg/0.1 mL (18 mg/3 1.8 mg (0.3 mL) subcut DAILY #0 mL 11/29/22 01/17/23 mL) subcutaneous pen injector (Victoza 3-Tanmay) naloxone 4 mg/actuation nasal 4 mg intranasal Q2-3M PRN #2 ea 11/29/22 01/17/23 spray (Narcan) pantoprazole 40 mg tablet,delayed 40 mg PO BID #60 tabs 11/29/22 01/17/23 release (Protonix) ferrous sulfate 325 mg (65 mg 325 mg PO BID 12/15/22 01/17/23 iron) tablet,delayed release gabapentin 600 mg tablet mg PO TID 12/15/22 01/13/23 levetiracetam 1,000 mg tablet 1,000 mg PO Q12H #60 tabs 12/15/22 01/17/23 baclofen 10 mg tablet 10 mg PO TID PRN #30 tabs 12/16/22 01/17/23 cyclobenzaprine 10 mg tablet 10 mg PO TID PRN muscle spasm #20 12/22/22 01/17/23 tabs ibuprofen 600 mg tablet 600 mg PO TID PRN pain #30 tabs 12/22/22 01/17/23 cefadroxil 500 mg capsule 500 mg PO BID #28 caps 01/11/23 01/17/23 clindamycin HCl 150 mg capsule 450 mg PO TID #63 caps 01/12/23 01/17/23 acetaminophen 500 mg tablet 1,000 mg PO TID 01/17/23 01/17/23 Previous Rx's Medication Instructions Recorded carboxymethylcellulose sodium 0.5 1 drp OU QID #50 ea 08/15/22 % eye drops in a dropperette (Refresh Plus) carvedilol 3.125 mg tablet 3.125 mg PO BID #60 tabs 11/29/22 liraglutide 0.6 mg/0.1 mL (18 mg/3 1.8 mg (0.3 mL) subcut DAILY #0 mL 11/29/22 mL) subcutaneous pen injector (Victoza 3-Tanmay) naloxone 4 mg/actuation nasal 4 mg intranasal Q2-3M PRN #2 ea 11/29/22 spray (Narcan) pantoprazole 40 mg tablet,delayed 40 mg PO BID #60 tabs 11/29/22 release (Protonix) levetiracetam 1,000 mg tablet 1,000 mg PO Q12H #60 tabs 12/15/22 baclofen 10 mg tablet 10 mg PO TID PRN #30 tabs 12/16/22 cyclobenzaprine 10 mg tablet 10 mg PO TID PRN muscle spasm #20 12/22/22 tabs ibuprofen 600 mg tablet 600 mg PO TID PRN pain #30 tabs 12/22/22 cefadroxil 500 mg capsule 500 mg PO BID #28 caps 01/11/23 clindamycin HCl 150 mg capsule 450 mg PO TID #63 caps 01/12/23 Allergies Allergy/AdvReac Type Severity Reaction Status Date / Time Bleach (Sodium Hypochlorite) Allergy Unknown Verified 01/17/23 16:34 mushroom Allergy Unknown Verified 01/17/23 16:34 Penicillins Allergy Unknown Verified 01/17/23 16:34 tramadol Allergy Unknown Verified 01/17/23 16:34 mold Allergy Verified 01/17/23 16:34 trazodone Allergy Verified 01/17/23 16:34 General Stated Complaint: Cellulitis SHANIA: 3 Review of Systems All systems reviewed & are unremarkable except as noted in HPI and below Integumentary/Breasts Skin/Breast: Reports as per HPI, Reports non-healing lesions, Reports erythema and Reports wounds PFSH All Active Problems (Updated 01/17/23 @ 19:18 by Luis Romero MD) Surgical wound infection (Acute) Surgical wound dehiscence (Acute) Fatigue (Acute) Polypharmacy (Acute) Chest pain (Acute) Fracture of tibial shaft, right, closed (Acute) Cellulitis of right leg (Acute) Opioid dependence (Chronic) Recurrent episodes of unresponsiveness (Acute) Syncope (Chronic) Closed fracture of right fibula and tibia (Acute) Closed fracture of shaft of right tibia and fibula (Acute 11/23/22) s/p IMN of Right Tibia - 11/24/22 QT prolongation (Chronic) Nonspecific paroxysmal spell (Acute) Episode of unresponsiveness (Acute) Chronic systolic CHF (congestive heart failure) (Chronic) Ischemic cardiomyopathy (Chronic) Obstructive sleep apnea (Chronic) Hallucinations (Acute) Chronic respiratory failure with hypoxia (Chronic) Fracture of finger, left (Acute) Syncopal episodes (Chronic) Observed seizure-like activity (Acute) Opioid dependence on agonist therapy (Acute) Leg wound, left (Acute) Facial palsy (Acute) Pulmonary HTN (Acute) Heart failure (Acute) 09/02/21 with NC low EF Vertigo (Acute) GERD (gastroesophageal reflux disease) (Chronic) Essential hypertension (Acute) Asthma (Chronic) Depression (Chronic) PTSD (post-traumatic stress disorder) (Acute) Tobacco abuse disorder (Acute) Hypokalemia (Acute) Chronic gout (Acute) Hyperlipidemia (Acute) Diabetic peripheral neuropathy (Acute) Type 2 diabetes mellitus (Chronic) Medical History (Updated 01/17/23 @ 19:18 by Luis Romero MD) COVID was vaccinated but contracted Covid 06/22 History of gastrointestinal ulcer Non-STEMI (non-ST elevated myocardial infarction) 09/02/21 Surgical History H/O bone graft left knee H/O shoulder surgery x4 and ending with a full replacement H/O total hysterectomy History of appendectomy History of colonoscopy History of esophagogastroduodenoscopy (EGD) gastritis with gastric ulcers Previous section x4 delivery Family History Mother Cancer Heart disease Obstructive lung disease Depression Arthritis Degeneration of intervertebral disc Father Alcohol use disorder Brother Hypertension Mood disorder Maternal Grandfather Alcohol use disorder Maternal Grandmother Breast cancer Maternal Aunt Breast cancer Paternal Aunt Breast cancer Social History Smoking/Tobacco Use Status: Current every day Tobacco Type: cigarettes Tobacco: How many years used: 34 Smoking risk assessment performed?: Yes Alcohol Intake: current Alcohol Intake frequency: holidays/special occasions only Alcohol type: beer Drug use: Never Substance use type: does not use Do you feel safe at home: Yes Do you feel safe in your relationship?: Yes Exam Chest Chest: normal inspection of the chest Resp Effort & Inspection: normal respiratory effort Auscultation: clear to auscultation bilaterally Cardio Rate: regular rate Rhythm: regular rhythm Heart Sounds: S1 normal and S2 normal Extrem Right lower extremity: knee Details: ecchymosis and warmth Upper/lower leg/hip images: 1. Erythema with irregular borders, warmth Knee images: 1. 2 cm open wound with purulent wound bed 2. Healing surgical wound with some serosanguineous drainage Course Vital Signs Vital signs: Vital Signs Temperature 36.6 C 01/17/23 16:24 Pulse 92 H 01/17/23 16:24 Respiratory Rate 16 01/17/23 16:24 Blood Pressure 98/66 L 01/17/23 16:24 Pulse Oximetry 94 01/17/23 16:24 Temperature 36.6 C 01/17/23 16:24 Temperature Source Temporal Artery Scan 01/17/23 16:24 Pulse 92 H 01/17/23 16:24 Respiratory Rate 16 01/17/23 16:24 Respiratory Effort Normal 01/17/23 16:26 Blood Pressure 98/66 L 01/17/23 16:24 Blood Pressure Position Sitting 01/17/23 16:24 Pulse Oximetry 94 01/17/23 16:24 Oxygen Delivery Method Room Air 01/17/23 16:24 Oxygen Flow Rate 0 01/17/23 16:24 Pain Level 8 01/17/23 16:24
[2023-01-17 17:27] LABS: Abs Immature Grans 0.02 10^3/uL (0.0-0.06); Absolute Basophil Count 0.05 10^3/uL (0.0-0.2); Absolute Eosinophil Count 0.55 10^3/uL (0.0-0.7); Absolute Lymphocyte Count 3.81 10^3/uL (1.2-3.4); Absolute Monocyte Count 1.03 10^3/uL (0.1-0.8); Basophils % 0.5; Eosinophils % 5.7; HCT 41.4 % (36.0-46.0); HGB 13.9 g/dL (11.2-15.7); Immature Grans % 0.2; Lymphocytes % 39.4; MCH 28.8 pg (27.0-33.0); MCHC 33.6 % (32.0-36.0); MCV 86 fL (80-95); MPV 9.7 fL (8.0-11.0); Monocytes % 10.7; Neutrophils % 43.5; Platelet Count 321 10^3/uL (130-400); RBC 4.83 10^6/uL (3.93-5.22); RDW 14.6 % (11.7-14.6); RDW-SD 46.1 fL; WBC 9.66 10^3/uL (4.4-10.8)
[2023-01-17 17:29] LABS: Lactate 1.3 mmol/L (0.6-1.4)
--- NOTE | 2023-01-17 17:34 | W.MEDCONSULT ---
Date of service: 01/17/23 Time of Service: 17:35 Assessment and Plan Assessment and plan (1) Surgical wound infection: Status: Acute Assessment and plan: she has open wound infection along the lateral aspect of her proximal tibia; this will be surgical debrided in the morning and Dr. Wisdom plans for wound vac placement aftewards. Patient is being started on parenteral antibiotics including Vancomycin and cefepime. Antibiotics may be modified upon culture results. The difficulty will be choice of antibiotics if we get no results on cultures. She obviously needs coverage for polymicrobial including Pseudomonas given her diabetic status. I will check her for MRSA carriage and if her wound does not grow MRSA and her nasal swab is clear then we may be able to downgrade the Vancomcyin. I agree w/ Cefepime. Zosyn would also be a good choice but w/ combo of Zosyn and Vancomycin and her recent labs have shown higher BUN and creatinine, it is prudent to not use both together and therefore my recommendation for Cefepime which has good Pseudomonas coverage. (2) Surgical wound dehiscence: Status: Acute Assessment and plan: as above (3) Closed fracture of shaft of right tibia and fibula: Status: Acute Assessment and plan: her last xray image of her right knee was from 12/16/22 and showed stability in her fracture. (4) Ischemic cardiomyopathy: Status: Chronic Assessment and plan: she has no CP or dyspnea and her lungs are clear. Although she has edema in her right leg this seems to be primarily confined to the knee and proximal tibia/calf; in my opinion she is not in acute CHF. continue her home antiischemic and anti-chf meds which include torsemide, metoprolol, and her preventative meds of atorvastatin and ASA. (5) Type 2 diabetes mellitus: Status: Chronic Assessment and plan: patient's home dosing of Victoza and Tresiba have been ordered by Dr. Wisdom, patient is to have family bring this in for pharmacy to verify. However, we will also oreder novolog sliding scale and meal time coverage of her glucose readings. Her glucose is expected to be high d/t her infection and should come back under control w/ control of the infection. her las HbA1C was not well controlled at 7.1% on 12/16/22 but it sounds like she has been dealing w/ this infection for about 3 weeks now so her glucose probably was rising in response to her infection. Her prior HbA1C was 6.3% back in 10/29/22. (6) Diabetic peripheral neuropathy: Status: Acute (7) PTSD (post-traumatic stress disorder): Status: Acute (8) Opioid dependence: Status: Chronic (9) Obstructive sleep apnea: Status: Chronic History of Present Illness History of Present Illness Chief Complaint: infected right knee Narrative: 47 yr old female w/ right tib/fib which had ORIF w/ intramedullary fixation of the tibia on 11/24/22. She presents w/ wound dehiscence and purulent drainage from the wound. Patient reportedly has failed multiple outpatient antibiotics and had wound debridement in the office. she reports fevers, chills and increasing pain in the right leg from the knee down the leg and up to the hip, although she has been able to ambulate on it. Her comorbidities include poorly controlled DM (HbA1C of 7.1% as of 12/16/22),Last A1c 7.1%, PTSD, depression, asthma, COPD, GERD, pulmonary hypertension, cardiomyopathy (Per anesthesia's notes from from 11/24/2022, last echo from 10/19/2022 demonstrated LVEF 39%, severely dilated LV, moderate MR, trace TR.). Patient is now admitted to the hospital for parenteral antibiotics as well as to go to the OR in the morning for I&D of her wound and to rule out joint infection. Dr. Wisdom has asked the hospital service to consult on her case and help comanage her medical issues including her diabetes mellitus, hypertension and cardiomyopathy. Review of Systems All systems reviewed & are unremarkable except as noted in HPI and below PFSH All Active Problems (Updated 01/17/23 @ 19:18 by Luis Romero MD) Surgical wound infection (Acute) Surgical wound dehiscence (Acute) Fatigue (Acute) Polypharmacy (Acute) Chest pain (Acute) Fracture of tibial shaft, right, closed (Acute) Cellulitis of right leg (Acute) Opioid dependence (Chronic) Recurrent episodes of unresponsiveness (Acute) Syncope (Chronic) Closed fracture of right fibula and tibia (Acute) Closed fracture of shaft of right tibia and fibula (Acute 11/23/22) s/p IMN of Right Tibia - 11/24/22 QT prolongation (Chronic) Nonspecific paroxysmal spell (Acute) Episode of unresponsiveness (Acute) Chronic systolic CHF (congestive heart failure) (Chronic) Ischemic cardiomyopathy (Chronic) Obstructive sleep apnea (Chronic) Hallucinations (Acute) Chronic respiratory failure with hypoxia (Chronic) Fracture of finger, left (Acute) Syncopal episodes (Chronic) Observed seizure-like activity (Acute) Opioid dependence on agonist therapy (Acute) Leg wound, left (Acute) Facial palsy (Acute) Pulmonary HTN (Acute) Heart failure (Acute) 09/02/21 with NV low EF Vertigo (Acute) GERD (gastroesophageal reflux disease) (Chronic) Essential hypertension (Acute) Asthma (Chronic) Depression (Chronic) PTSD (post-traumatic stress disorder) (Acute) Tobacco abuse disorder (Acute) Hypokalemia (Acute) Chronic gout (Acute) Hyperlipidemia (Acute) Diabetic peripheral neuropathy (Acute) Type 2 diabetes mellitus (Chronic) Medical History (Updated 01/17/23 @ 19:18 by Luis Romero MD) COVID was vaccinated but contracted Covid 06/22 History of gastrointestinal ulcer Non-STEMI (non-ST elevated myocardial infarction) 09/02/21 Surgical History H/O bone graft left knee H/O shoulder surgery x4 and ending with a full replacement H/O total hysterectomy History of appendectomy History of colonoscopy History of esophagogastroduodenoscopy (EGD) gastritis with gastric ulcers Previous section x4 delivery Family History Mother Cancer Heart disease Obstructive lung disease Depression Arthritis Degeneration of intervertebral disc Father Alcohol use disorder Brother Hypertension Mood disorder Maternal Grandfather Alcohol use disorder Maternal Grandmother Breast cancer Maternal Aunt Breast cancer Paternal Aunt Breast cancer Social History Smoking/Tobacco Use Status: Current every day Tobacco Type: cigarettes Tobacco: How many years used: 34 Smoking risk assessment performed?: Yes Alcohol Intake: current Alcohol Intake frequency: holidays/special occasions only Alcohol type: beer Drug use: Never Substance use type: does not use Do you feel safe at home: Yes Do you feel safe in your relationship?: Yes Exam Narrative Exam Narrative: Middle-aged redheaded female sitting in the emergency serum on a gurney. She is not in any acute respiratory distress she is complaining of right leg pain and asking for more pain medications. HEENT is unremarkable Neck is supple nontender no JVD normal carotid pulses Lungs are clear to auscultation Heart regular rate and rhythm no appreciable murmur rub or gallop Abdomen soft and nontender nondistended Lower extremities the right calf and pretibial surface up to the knee is edematous and tender to palpation. She has an open wound over the right lateral aspect of the proximal tibia at the knee joint that is about 5 cm long by 3 cm wide and appears to be a couple centimeters deep. There is a purulent base to it. Pedal pulses in the right foot are present although diminished finished. She has no acral cyanosis and has good capillary refill in the foot. Sensory exam is intact to light touch over the entire right foot and leg. Left leg is nonedematous. Skin she has multiple tattoos over her trunk as well as over her legs. Results Last Vital Signs Temp 36.6 C 01/17/23 16:24 Pulse 92 H 01/17/23 16:24 Resp 16 01/17/23 16:24 BP 98/66 L 01/17/23 16:24 Pulse Ox 94 01/17/23 16:24 Labs 01/17/23 17:15 01/17/23 17:15 Labs: Laboratory Results - last 24 hr 01/17/23 01/17/23 01/17/23 17:15 17:15 17:24 WBC 9.66 RBC 4.83 Hgb 13.9 Hct 41.4 MCV 86 MCH 28.8 MCHC 33.6 RDW 14.6 Plt Count 321 MPV 9.7 Immature Gran % 0.2 Neutrophils % 43.5 Band Neutrophils % Lymphocytes % 39.4 Atypical Lymphs % Monocytes % 10.7 Eosinophils % 5.7 Basophils % 0.5 Metamyelocytes % Myelocytes % Promyelocytes % Other Cells % Nucleated RBC % 0.0 Absolute Neutrophils 4.20 Absolute Lymphocytes 3.81 H Absolute Monocytes 1.03 H Absolute Eosinophils 0.55 Absolute Basophils 0.05 RBC Morphology Polychromasia Hypochromasia Poikilocytosis Basophilic Stippling Anisocytosis Microcytosis Macrocytosis Spherocytes Tear Drop Cells Ovalocytes Stomatocytes [place] Bodies [place] Cells/Echinocytes Acanthocytes (Spur) Schistocytes VBG Lactate 1.3 Sodium Cancelled Potassium Cancelled Chloride Cancelled Carbon Dioxide Cancelled Anion Gap Cancelled BUN Cancelled Creatinine Cancelled Est GFR (CKD-EPI 2020) Cancelled Glucose Cancelled Calcium Cancelled Magnesium Cancelled Total Bilirubin Cancelled AST Cancelled ALT Cancelled Alkaline Phosphatase Cancelled Total Protein Cancelled Albumin Cancelled 01/17/23 17:24 WBC Cancelled RBC Cancelled Hgb Cancelled Hct Cancelled MCV Cancelled MCH Cancelled MCHC Cancelled RDW Cancelled Plt Count Cancelled MPV Cancelled Immature Gran % Cancelled Neutrophils % Cancelled Band Neutrophils % Cancelled Lymphocytes % Cancelled Atypical Lymphs % Cancelled Monocytes % Cancelled Eosinophils % Cancelled Basophils % Cancelled Metamyelocytes % Cancelled Myelocytes % Cancelled Promyelocytes % Cancelled Other Cells % Cancelled Nucleated RBC % Cancelled Absolute Neutrophils Cancelled Absolute Lymphocytes Cancelled Absolute Monocytes Cancelled Absolute Eosinophils Cancelled Absolute Basophils Cancelled RBC Morphology Cancelled Polychromasia Cancelled Hypochromasia Cancelled Poikilocytosis Cancelled Basophilic Stippling Cancelled Anisocytosis Cancelled Microcytosis Cancelled Macrocytosis Cancelled Spherocytes Cancelled Tear Drop Cells Cancelled Ovalocytes Cancelled Stomatocytes Cancelled [place] Bodies Cancelled [place] Cells/Echinocytes Cancelled Acanthocytes (Spur) Cancelled Schistocytes Cancelled VBG Lactate Sodium Potassium Chloride Carbon Dioxide Anion Gap BUN Creatinine Est GFR (CKD-EPI 2020) Glucose Calcium Magnesium Total Bilirubin AST ALT Alkaline Phosphatase Total Protein Albumin
--- NOTE | 2023-01-17 17:43 | OCONE_ITS ---
Date of service: 01/17/23 Time of Service: 17:25 History of Present Illness History of Present Illness Chief Complaint: Right knee surgical wound dehiscence and infection Narrative: Aracelis is a 47-year-old female with a complex medical history who was admitted back in November for a tib-fib fracture. Due to limitations in ability to tra nsfer, she was kept in house and I performed intramedullary fixation of the right tibia. She had a complex hospital course with multiple medications needing adjustment with persistent hypertension and hyperglycemia. She was eventually discharged home. She was less than stellar with her adherence to postoperative protocols. However, she was showing good improvements and was able to ambulate on the leg. She had some issues with swelling and some redness about the leg but it seem to be local irritation. She was treated with an antibiotic at 1 point which seem to clear this up. However, she developed an eschar and a dehiscence to the lateral right knee wound. The remainder of the wounds healed appropriately. This was seen initially about 2 weeks ago. There was a delay in her getting antibiotics but eventually she received antibiotics. I saw her in the office last week where I was concerned about the wound itself. However, she was able to tolerate knee range of motion. She did not have effusion. She had minimal drainage but did have malodor to the wound. A local wound care was performed in the office. Wet-to-dry dressings were performed. She was sent home with antibiotics. She had some increasing pain but was still to ambulate that time. Home health nursing unfortunately is yet to come by for dressing changes. She reports increasing pain and malaise over the last 24 to 48 hours. Therefore, recommend she come to emergency department. In the emergency department she had some mild hypotension and overall feeling ill. She reports that she has reported chills and malaise but no recorded fever. She has had increasing swelling from the distal aspect of the lateral right knee wound. She also reports increasing redness. She denies new numbness or tingling. She has increasing pain. She feels that the pain is traveling up and down the leg, radiating from the knee. She has still been able to ambulate and move the leg although she finds it harder than it has been in the past. Consults Consult date: 01/17/23 Requesting physician: Marleny Avila Consult Reason Right knee surgical wound infection Assessment and Plan Assessment and plan (1) Surgical wound dehiscence: Status: Acute Assessment and plan: This was attempted to be managed in the office and at home. Unfortunate, she has been unable to manage with the dressing changes and with her home health nursing staff. Given the ongoing appearance of this wound I do think it makes sense to proceed more urgently for IV antibiotic ministration but also for surgical debridement with likely wound VAC placement. I discussed this with Aracelis. I reviewed the technical details. I recommended we proceed tomorrow to the operating room, n.p.o. after midnight, to perform this debridement and placement of wound VAC. This hopefully build to be continued at home with a transition to oral antibiotics as well as home health wound VAC changes. (2) Surgical wound infection: Status: Acute Assessment and plan: Broad-spectrum coverage with vancomycin and cefepime. Likely polymicrobial. We will obtain wound cultures here in the emergency department as well as blood cultures. I will also obtain intraoperative cultures tomorrow. (3) Closed fracture of shaft of right tibia and fibula: Status: Acute Assessment and plan: Previous x-rays show that the fracture is healing appropriately. We may recheck x-rays while she is here in house. Weightbearing as tolerated to the right lower extremity. No bracing is necessary. Recommend assistive devices as needed. (4) Opioid dependence: Status: Chronic Assessment and plan: Continue methadone. She has required a significant mount of narcotics in the past. I will prescribe as needed narcotic therapy while she is here in house but will be for a limited course on discharge. (5) Cellulitis of right leg: Status: Acute Assessment and plan: Please see above. Continue with antibiotics. (6) Polypharmacy: Status: Acute Assessment and plan: I will obtain a hospitalist medicine consult to assist with her multiple medical problems and ongoing medical issues including her polypharmacy. (7) Type 2 diabetes mellitus: Status: Chronic Assessment and plan: Ongoing hyperglycemia despite multiple medications. She has a very challenging regimen that she maintains with multiple medications. Some of these we do not carry in-house. She will have her daughter bring in what ever medications we do not carry so that she may continue with her home regimen per her request. I have also asked the hospitalist team to be involved in assisting with her diabetes management given his complexity and ongoing persistent hyperglycemia. A portion of his hyperglycemia is resulting from the infection. However, it is imperative that we work on treating it, albeit transiently, so we may be able to better treat her infection. Review of Systems All systems reviewed & are unremarkable except as noted in HPI and below PFSH All Active Problems (Updated 01/17/23 @ 17:55 by Stevenson Wisdom MD) Surgical wound infection (Acute) Surgical wound dehiscence (Acute) Fatigue (Acute) Polypharmacy (Acute) Chest pain (Acute) Fracture of tibial shaft, right, closed (Acute) Cellulitis of right leg (Acute) Opioid dependence (Chronic) Recurrent episodes of unresponsiveness (Acute) Syncope (Chronic) Closed fracture of right fibula and tibia (Acute) Closed fracture of shaft of right tibia and fibula (Acute 11/23/22) s/p IMN of Right Tibia - 11/24/22 QT prolongation (Chronic) Nonspecific paroxysmal spell (Acute) Episode of unresponsiveness (Acute) Chronic systolic CHF (congestive heart failure) (Chronic) Ischemic cardiomyopathy (Acute) Obstructive sleep apnea (Chronic) Hallucinations (Acute) Chronic respiratory failure with hypoxia (Chronic) Fracture of finger, left (Acute) Syncopal episodes (Chronic) Acute hypokalemia (Acute) Observed seizure-like activity (Acute) Opioid dependence on agonist therapy (Acute) Leg wound, left (Acute) Facial palsy (Acute) Pulmonary HTN (Acute) Heart failure (Acute) 09/02/21 with MO low EF Non-STEMI (non-ST elevated myocardial infarction) (Acute) 09/02/21 Vertigo (Acute) GERD (gastroesophageal reflux disease) (Chronic) Essential hypertension (Acute) Asthma (Chronic) Depression (Chronic) PTSD (post-traumatic stress disorder) (Acute) Tobacco abuse disorder (Acute) Hypokalemia (Acute) Chronic gout (Acute) Hyperlipidemia (Acute) Diabetic peripheral neuropathy (Acute) Type 2 diabetes mellitus (Chronic) Medical History COVID was vaccinated but contracted Covid 06/22 History of gastrointestinal ulcer Surgical History H/O bone graft left knee H/O shoulder surgery x4 and ending with a full replacement H/O total hysterectomy History of appendectomy History of colonoscopy History of esophagogastroduodenoscopy (EGD) gastritis with gastric ulcers Previous section x4 delivery Family History Mother Cancer Heart disease Obstructive lung disease Depression Arthritis Degeneration of intervertebral disc Father Alcohol use disorder Brother Hypertension Mood disorder Maternal Grandfather Alcohol use disorder Maternal Grandmother Breast cancer Maternal Aunt Breast cancer Paternal Aunt Breast cancer Social History Smoking/Tobacco Use Status: Current every day Tobacco Type: cigarettes Tobacco: How many years used: 34 Smoking risk assessment performed?: Yes Alcohol Intake: current Alcohol Intake frequency: holidays/special occasions only Alcohol type: beer Drug use: Never Substance use type: does not use Do you feel safe at home: Yes Do you feel safe in your relationship?: Yes Exam Const General: cooperative, uncomfortable and no acute distress Orientation: alert, awake and oriented x3 Extrem Other: Evaluation of the right leg shows some generalized swelling, with 2+ pitting edema throughout. There appears to be some hyperemia erythema seen to the proximal aspect of the right leg and the inferior aspect of the knee. There is no palpable effusion. There is a dehiscence of the lateral knee wound within the central portion of this wound approximately 2 and half centimeters in length and about 1 cm in width. There is more hypertrophic granulation tissue seen t wale than it was in the office although there is a thick eschar seen around the portion of the surfaces, at least 60 to 70%. There is also some mild seropurulent material seen at the base of the wound. Due to patient's pain tracking was not fully assessed. However, palpation of the thigh and knee did not express any additional fluid. The very distal aspect this wound seems more swollen than it was in the office and there is a very small amount of drainage coming from the distalmost aspect of the wound with exquisite pain to palpation around this area. Gentle range of motion of the right knee, while resisted initially, does not seem to cause exacerbation of pain. However, active range o f motion is painful about the right leg. She does endorse sensation over the deep and superficial peroneal nerve. She is able to actively dorsiflex and plantarflex the right ankle as well as extend and flex the great toe. Capillary fill less than 2 seconds. Results Last Vital Signs Temp 36.6 C 01/17/23 16:24 Pulse 92 H 01/17/23 16:24 Resp 16 01/17/23 16:24 BP 98/66 L 01/17/23 16:24 Pulse Ox 94 01/17/23 16:24 Labs 01/17/23 17:15 01/17/23 17:15 Labs: Laboratory Results - last 24 hr 01/17/23 01/17/23 01/17/23 17:15 17:15 17:24 WBC 9.66 RBC 4.83 Hgb 13.9 Hct 41.4 MCV 86 MCH 28.8 MCHC 33.6 RDW 14.6 Plt Count 321 MPV 9.7 Immature Gran % 0.2 Neutrophils % 43.5 Band Neutrophils % Lymphocytes % 39.4 Atypical Lymphs % Monocytes % 10.7 Eosinophils % 5.7 Basophils % 0.5 Metamyelocytes % Myelocytes % Promyelocytes % Other Cells % Nucleated RBC % 0.0 Absolute Neutrophils 4.20 Absolute Lymphocytes 3.81 H Absolute Monocytes 1.03 H Absolute Eosinophils 0.55 Absolute Basophils 0.05 RBC Morphology Polychromasia Hypochromasia Poikilocytosis Basophilic Stippling Anisocytosis Microcytosis Macrocytosis Spherocytes Tear Drop Cells Ovalocytes Stomatocytes [place] Bodies Fernando Cells/Echinocytes Acanthocytes (Spur) Schistocytes VBG Lactate 1.3 Sodium Cancelled Potassium Cancelled Chloride Cancelled Carbon Dioxide Cancelled Anion Gap Cancelled BUN Cancelled Creatinine Cancelled Est GFR (CKD-EPI 2020) Cancelled Glucose Cancelled Calcium Cancelled Magnesium Cancelled Total Bilirubin Cancelled AST Cancelled ALT Cancelled Alkaline Phosphatase Cancelled Total Protein Cancelled Albumin Cancelled 01/17/23 17:24 WBC Cancelled RBC Cancelled Hgb Cancelled Hct Cancelled MCV Cancelled MCH Cancelled MCHC Cancelled RDW Cancelled Plt Count Cancelled MPV Cancelled Immature Gran % Cancelled Neutrophils % Cancelled Band Neutrophils % Cancelled Lymphocytes % Cancelled Atypical Lymphs % Cancelled Monocytes % Cancelled Eosinophils % Cancelled Basophils % Cancelled Metamyelocytes % Cancelled Myelocytes % Cancelled Promyelocytes % Cancelled Other Cells % Cancelled Nucleated RBC % Cancelled Absolute Neutrophils Cancelled Absolute Lymphocytes Cancelled Absolute Monocytes Cancelled Absolute Eosinophils Cancelled Absolute Basophils Cancelled RBC Morphology Cancelled Polychromasia Cancelled Hypochromasia Cancelled Poikilocytosis Cancelled Basophilic Stippling Cancelled Anisocytosis Cancelled Microcytosis Cancelled Macrocytosis Cancelled Spherocytes Cancelled Tear Drop Cells Cancelled Ovalocytes Cancelled Stomatocytes Cancelled [place] Bodies Cancelled Fernando Cells/Echinocytes Cancelled Acanthocytes (Spur) Cancelled Schistocytes Cancelled VBG Lactate Sodium Potassium Chloride Carbon Dioxide Anion Gap BUN Creatinine Est GFR (CKD-EPI 2020) Glucose Calcium Magnesium Total Bilirubin AST ALT Alkaline Phosphatase Total Protein Albumin
[2023-01-17] MEDS: HYDROmorphone 2 MG/ML SYR 1 MG IVP ×2 (17:45→21:02)
[2023-01-17] MEDS: Ketorolac 15 MG/ML VIAL IVP ×2 (17:46→23:47)
[2023-01-17 17:48] LABS: ALT 24 U/L (14-59); AST 18 U/L (15-37); Albumin 3.9 g/dL (3.4-5.0); Alkaline Phosphatase 151 U/L (46-116); Anion Gap 8.1 mmol/L (3-11); BUN 30 mg/dL (7-18); Bilirubin, Total 0.4 mg/dL (0.2-1.0); CO2 32.9 mmol/L (21.0-32.0); CREATININE 0.9 mg/dL (0.55-1.02); Calcium 9.4 mg/dL (8.5-10.1); Chloride 100 mmol/L (98-107); Estimated GFR 79.35 (mL/min/1.73m2); Glucose 135 mg/dL (74-106); Magnesium 2.4 mg/dL (1.8-2.4); Potassium 3.2 mmol/L (3.5-5.1); Sodium 141 mmol/L (136-145); Total Protein 8.3 g/dL (6.4-8.2)
[2023-01-17 18:04] LABS: Troponin I < 50 ng/L (<or=60)
[2023-01-17 18:20] LABS: Source Nasal/Nares
[2023-01-17 19:01] LABS: COVID-19 PCR Negative (Negative)
[2023-01-17 19:38] VITALS: BP 95/55; PULSE 78; RESP 18; TEMP 36.5; O2SAT 95
--- NOTE | 2023-01-17 20:53 | TELEP.MEDR_ITS ---
Date of service: 01/17/23 Time of Service: 20:53 Telepharmacy Home Med Rec Allergies Allergies: Bleach (Sodium Hypochlorite) Allergy (Unknown, Verified 01/17/23 16:34) mushroom Allergy (Unknown, Verified 01/17/23 16:34) Penicillins Allergy (Unknown, Verified 01/17/23 16:34) tramadol Allergy (Unknown, Verified 01/17/23 16:34) mold Allergy (Verified 01/17/23 16:34) trazodone Allergy (Verified 01/17/23 16:34) Interview Person Interviewed: * Patient Quality Quality of Interview/Accuracy of Medication List: Fair Sources Sources used to compile medication list: [facility] Medication List and [employer] Changes made to Home Medication List: ADDITIONS: * None DELETIONS: * Potassium chloride 20meq * Oxycodone CHANGES: * Tylenol 1000mg po tid (was 975 tid prn) * Refresh eye drops 1 drop both eyes four times daily prn (was scheduled) * Cetirizine 10mg po daily (was prn) * Humalog insulin inject subq ACHS per sliding scale didnt have directions (was 10 unis ACHS) * Metoprolol ER 12.5mg po daily prn SBP>100 (was 25mg daily) * Torsemide 20mg po bidf (was 40mg daily) * Methadone 130mg po daily last dose per patient 01/17/23, goes to [facility] clinic [phone], closed at time of interview unable to verify dose with clinic * Per patient out of Albuterol nebulizer solution, ferrous sulfate, and Proton ix. Additional Notes Additional Notes: * Updated medication list with information provided by patient. Recommended Changes Recommended Changes(reason for recommendation): * None Attestation: The home medication list is now updated to the best of my knowledge and is ready to be reconciled by the provider. Please contact the TelePharmacy Medication Reconciliation Pharmacist at for any questions.
--- NOTE | 2023-01-17 20:53 | TELEP.MEDREC ---
Date of service: 01/17/23 Time of Service: 20:53 [facility] Allergies Allergies: Bleach (Sodium Hypochlorite) Allergy (Unknown, Verified 01/17/23 16:34) mushroom Allergy (Unknown, Verified 01/17/23 16:34) Penicillins Allergy (Unknown, Verified 01/17/23 16:34) tramadol Allergy (Unknown, Verified 01/17/23 16:34) mold Allergy (Verified 01/17/23 16:34) trazodone Allergy (Verified 01/17/23 16:34) Interview Person Interviewed: Patient Quality Quality of Interview/Accuracy of Medication List: Fair Sources Sources used to compile medication list: [facility] Medication List and [employer] Changes made to Home Medication List: ADDITIONS: None DELETIONS: Potassium chloride 20meq Oxycodone CHANGES: Tylenol 1000mg po tid (was 975 tid prn) Refresh eye drops 1 drop both eyes four times daily prn (was scheduled) Cetirizine 10mg po daily (was prn) Humalog insulin inject subq ACHS per sliding scale didnt have directions (was 10 unis ACHS) Metoprolol ER 12.5mg po daily prn SBP>100 (was 25mg daily) Torsemide 20mg po bidf (was 40mg daily) Methadone 130mg po daily last dose per patient 01/17/23, goes to [facility] [phone], closed at time of interview unable to verify dose with clinic Per patient out of Albuterol nebulizer solution, ferrous sulfate, and Protonix. Additional Notes Additional Notes: Updated medication list with information provided by patient. Recommended Changes Recommended Changes(reason for recommendation): None Attestation: The home medication list is now updated to the best of my knowledge and is ready to be reconciled by the provider. [facility] Pharmac[facility] at for any questions.
[2023-01-17] MEDS: Acetaminophen 325 MG TAB 975 MG PO (20:59)
[2023-01-17] MEDS: Atorvastatin 40 MG TAB 80 MG PO (21:00)
[2023-01-17] MEDS: Potassium Chloride 20 MEQ TABCR 40 MEQ PO (21:00)
[2023-01-17] MEDS: levETIRAcetam 500 MG TAB 1000 MG PO (21:01)
[2023-01-17] MEDS: Magnesium Oxide 400 MG TAB PO (21:01)
[2023-01-17] MEDS: Pantoprazole 40 MG TABCR PO (21:01)
[2023-01-17] MEDS: Normal Saline Flush 10 ML SYR IVP (21:02)
[2023-01-17] MEDS: VANCOMYCIN 2,000 MG in Normal Saline 500 ML 250 MG IVPB (21:07)
[2023-01-17] MEDS: CEFEPIME 2 GM in Normal Saline 100 ML IVPB (21:11)
[2023-01-17] MEDS: POTASSIUM CHLORIDE 10 MEQ/100 ML BAG 100 MEQ IVPB ×2 (21:12→22:32)
[2023-01-17] MEDS: Normal Saline 1,000 ML 100 ML IV (21:35)
[2023-01-17 23:32] VITALS: BP 112/68; PULSE 74; RESP 20; TEMP 36.4; O2SAT 97
[2023-01-18] VITALS (13 sets, daily range): BP systolic 101–129; BP diastolic 58–73; PULSE 65–94; RESP 14–20; TEMP 36.1–37; O2SAT 91–100; BMI 30.9
[2023-01-18] MEDS: Ketorolac 15 MG/ML VIAL IVP ×4 (05:22→23:13)
[2023-01-18] MEDS: CEFEPIME 2 GM in Normal Saline 100 ML IVPB ×3 (05:23→23:18)
[2023-01-18] MEDS: HYDROmorphone 2 MG/ML SYR 1 MG IVP ×5 (06:12→23:18)
[2023-01-18] MEDS: Normal Saline 1,000 ML 100 ML IV (06:14)
[2023-01-18 07:28] LABS: Anion Gap 5.8 mmol/L (3-11); BUN 35 mg/dL (7-18); CO2 29.2 mmol/L (21.0-32.0); CREATININE 1.1 mg/dL (0.55-1.02); Calcium 8.6 mg/dL (8.5-10.1); Chloride 109 mmol/L (98-107); Estimated GFR 62.37 (mL/min/1.73m2); Glucose 136 mg/dL (74-106); Sodium 144 mmol/L (136-145)
--- NOTE | 2023-01-18 07:31 | PGE_ITS ---
Date of Service Date of service: 01/18/23 Time of Service: 10:50 Assessment and Plan Assessment and plan (1) Surgical wound infection: Status: Acute Assessment and plan: Some improvements with the IV medications. We will continue with the vancomycin and cefepime. However, suspicion is that this is not going to be MRSA. I did order a MRSA swab. We will attain other cultures today in the operating room. She is NPO. Plan to proceed to the operating room today for irrigation debridement and wound VAC placement. I briefly discussed this with Aracelis. My plan will be to debride was necessary of the lateral knee wound and place a wound VAC. I will aspirate the knee at the same time to ensure there is no sign of infection within the knee joint. If there was any infection within the knee joint then arthroscopic washout would be performed. I discussed the risk of this procedure with Aracelis to include bleeding, infection persistence, pain, stiffness, need for repeat procedures, damage to nerves and vessels. Despite these risk, she elects to proceed. (2) Opioid dependence on agonist therapy: Status: Acute Assessment and plan: Continue with methadone. As needed hydromorphone and oxycodone. (3) Type 2 diabetes mellitus: Status: Chronic Assessment and plan: Appreciate medicine consult. Continue with her home regimen of insulin with as needed here in house. We will try to keep her on her home base regimen and only add on sliding scale on top of this. Subjective Subjective Interval history since last seen: Aracelis was admitted from the ED last night. SHe was started on broad spectrum antibiotics. Wound gram stain was without bacteria. No results from blood cultures or wound cultures. She has had issues with pain but the pain medications appear to be working. Her glucose levels have been appropriate thus far. She is NPO. She does feel that some of the swelling and redness seems to be improving with the IV antibiotics. Exam Narrative Exam Narrative: Sitting up in the bed. No acute distress. Alert and orient x3. Valuation of the right lower extremity shows some improvement with the erythema which was previously of the proximal leg which now seems to be receded mostly to the surrounding area of the lateral knee wound. There is a Mepilex dressing in place with scant discharge. 1-2+ pitting edema of the right lower extremity, largely unchanged. No knee effusion. Objective Last Vital Signs Temp 36.3 C L 01/18/23 03:32 Pulse 68 01/18/23 03:32 Resp 18 01/18/23 03:32 BP 102/62 01/18/23 03:32 Pulse Ox 93 01/18/23 03:32 Laboratory Results - last 24 hr 01/17/23 01/17/23 01/17/23 17:15 17:15 17:15 WBC 9.66 RBC 4.83 Hgb 13.9 Hct 41.4 MCV 86 MCH 28.8 MCHC 33.6 RDW 14.6 Plt Count 321 MPV 9.7 Immature Gran % 0.2 Neutrophils % 43.5 Band Neutrophils % Lymphocytes % 39.4 Atypical Lymphs % Monocytes % 10.7 Eosinophils % 5.7 Basophils % 0.5 Metamyelocytes % Myelocytes % Promyelocytes % Other Cells % Nucleated RBC % 0.0 Absolute Neutrophils 4.20 Absolute Lymphocytes 3.81 H Absolute Monocytes 1.03 H Absolute Eosinophils 0.55 Absolute Basophils 0.05 RBC Morphology Polychromasia Hypochromasia Poikilocytosis Basophilic Stippling Anisocytosis Microcytosis Macrocytosis Spherocytes Tear Drop Cells Ovalocytes Stomatocytes [place] Bodies Fernando Cells/Echinocytes Acanthocytes (Spur) Schistocytes VBG Lactate 1.3 Sodium 141 Potassium 3.2 L Chloride 100 Carbon Dioxide 32.9 H Anion Gap 8.1 BUN 30 H Creatinine 0.9 Est GFR (CKD-EPI 2020) 79.35 Glucose 135 H Calcium 9.4 Magnesium 2.4 Total Bilirubin 0.4 AST 18 ALT 24 Alkaline Phosphatase 151 H Troponin I Total Protein 8.3 H Albumin 3.9 COVID-19 Source SARS-CoV-2 (PCR) 01/17/23 01/17/23 01/17/23 17:15 17:24 17:24 WBC Cancelled RBC Cancelled Hgb Cancelled Hct Cancelled MCV Cancelled MCH Cancelled MCHC Cancelled RDW Cancelled Plt Count Cancelled MPV Cancelled Immature Gran % Cancelled Neutrophils % Cancelled Band Neutrophils % Cancelled Lymphocytes % Cancelled Atypical Lymphs % Cancelled Monocytes % Cancelled Eosinophils % Cancelled Basophils % Cancelled Metamyelocytes % Cancelled Myelocytes % Cancelled Promyelocytes % Cancelled Other Cells % Cancelled Nucleated RBC % Cancelled Absolute Neutrophils Cancelled Absolute Lymphocytes Cancelled Absolute Monocytes Cancelled Absolute Eosinophils Cancelled Absolute Basophils Cancelled RBC Morphology Cancelled Polychromasia Cancelled Hypochromasia Cancelled Poikilocytosis Cancelled Basophilic Stippling Cancelled Anisocytosis Cancelled Microcytosis Cancelled Macrocytosis Cancelled Spherocytes Cancelled Tear Drop Cells Cancelled Ovalocytes Cancelled Stomatocytes Cancelled [place] Bodies Cancelled Fernando Cells/Echinocytes Cancelled Acanthocytes (Spur) Cancelled Schistocytes Cancelled VBG Lactate Sodium Cancelled Potassium Cancelled Chloride Cancelled Carbon Dioxide Cancelled Anion Gap Cancelled BUN Cancelled Creatinine Cancelled Est GFR (CKD-EPI 2020) Cancelled Glucose Cancelled Calcium Cancelled Magnesium Cancelled Total Bilirubin Cancelled AST Cancelled ALT Cancelled Alkaline Phosphatase Cancelled Troponin I < 50 Total Protein Cancelled Albumin Cancelled COVID-19 Source SARS-CoV-2 (PCR) 01/17/23 01/17/23 01/18/23 18:15 20:24 06:30 WBC RBC Hgb Hct MCV MCH MCHC RDW Plt Count MPV Immature Gran % Neutrophils % Band Neutrophils % Lymphocytes % Atypical Lymphs % Monocytes % Eosinophils % Basophils % Metamyelocytes % Myelocytes % Promyelocytes % Other Cells % Nucleated RBC % Absolute Neutrophils Absolute Lymphocytes Absolute Monocytes Absolute Eosinophils Absolute Basophils RBC Morphology Polychromasia Hypochromasia Poikilocytosis Basophilic Stippling Anisocytosis Microcytosis Macrocytosis Spherocytes Tear Drop Cells Ovalocytes Stomatocytes [place] Bodies Fernando Cells/Echinocytes Acanthocytes (Spur) Schistocytes VBG Lactate Sodium 144 Potassium 4.0 Chloride 109 H Carbon Dioxide 29.2 Anion Gap 5.8 BUN 35 H Creatinine 1.1 H Est GFR (CKD-EPI 2020) 62.37 Glucose 136 H Calcium 8.6 Magnesium Total Bilirubin AST ALT Alkaline Phosphatase Troponin I Cancelled Total Protein Albumin COVID-19 Source Nasal/Nares SARS-CoV-2 (PCR) Negative Time Spent with Patient Time Spent with Patient: 25-34 minutes Time was spent: preparing to see the patient(eg.review tests), ordering medications,tests, procedures, referring, communicating with other health career development coordinator, counseling the patient and care coordination
[2023-01-18 07:39] LABS: Troponin I < 50 ng/L (<or=60)
[2023-01-18] MEDS: Methadone Liquid 10 MG/ML 130 MG PO (08:52)
[2023-01-18] MEDS: Budesonide/Formoterol 80/4.5 6.9 GM 60 PUFF INH IH ×2 (08:58→20:48)
--- NOTE | 2023-01-18 12:38 | W.ANESPRE ---
General Info Date of Service Date Performed: 01/18/23 Height: 5 ft 4 in Weight: 81.647 kg Body Mass Index (BMI): 30.9 Surgical Procedure: Operation Date: 01/18/23 13:55 Proposed Procedure Side Surgeon p Knee I&D, Wound Vac Placement Stevenson Wisdom MD Meds Allergies and Home Medications Allergies Allergy/AdvReac Type Severity Reaction Status Date / Time Bleach (Sodium Hypochlorite) Allergy Unknown Verified 01/17/23 16:34 mushroom Allergy Unknown Verified 01/17/23 16:34 Penicillins Allergy Unknown Verified 01/17/23 16:34 tramadol Allergy Unknown Verified 01/17/23 16:34 mold Allergy Verified 01/17/23 16:34 trazodone Allergy Verified 01/17/23 16:34 Home Medication Medication Instructions Recorded albuterol sulfate 2.5 mg/3 mL 2.5 mg inhalation Q6H PRN 10/18/21 (0.083 %) solution for nebulization atorvastatin 80 mg tablet (Lipitor) 80 mg PO DAILY 10/18/21 clopidogrel 75 mg tablet (Plavix) 75 mg PO DAILY 10/18/21 insulin degludec 200 unit/mL (3 120 unit subcut DAILY 10/18/21 mL) subcutaneous pen (Tresiba FlexTouch U-200 insulin) insulin lispro 100 unit/mL unit subcut AC & HS PRN 10/18/21 subcutaneous pen (Humalog KwikPen (U-100) Insulin) magnesium oxide 400 mg (241.3 mg 400 mg PO BID 10/18/21 magnesium) tablet (MagOx) nitroglycerin 0.4 mg sublingual 0.4 mg sublingual Q5M PRN 10/18/21 tablet (Nitrostat) methadone 10 mg/5 mL oral solution 130 mg PO DAILY 03/15/22 carboxymethylcellulose sodium 0.5 1 drp OU QID #50 ea 08/15/22 % eye drops in a dropperette (Refresh Plus) albuterol sulfate 90 mcg/actuation 2 inh inhalation Q3H PRN PRN 10/29/22 aerosol inhaler (ProAir HFA) Shortness Of Breath Or Wheezing aspirin 81 mg tablet,delayed 81 mg PO DAILY 10/29/22 release (Adult Low Dose Aspirin) benzonatate 100 mg capsule 100 mg PO TID PRN PRN Cough 10/29/22 cetirizine 10 mg tablet (Zyrtec) 10 mg PO DAILY 10/29/22 citalopram 20 mg tablet (Celexa) 20 mg PO DAILY 10/29/22 colchicine 0.6 mg tablet (Colcrys) 0.6 mg PO BID 10/29/22 empagliflozin 10 mg tablet 10 mg PO DAILY 10/29/22 (Jardiance) fluticasone propionate 45 2 inh inhalation BID 10/29/22 mcg-salmeterol 21 mcg/actuation HFA inhaler (Advair HFA) folic acid 1 mg tablet 1 mg PO DAILY 10/29/22 potassium chloride 10 mEq 10 meq PO DAILY 10/29/22 capsule,extended release torsemide 20 mg tablet 20 mg PO BID 10/29/22 metoprolol succinate 25 mg 12.5 mg PO DAILY PRN PRN 11/23/22 tablet,extended release 24 hr (Toprol XL) carvedilol 3.125 mg tablet 3.125 mg PO BID #60 tabs 11/29/22 liraglutide 0.6 mg/0.1 mL (18 mg/3 1.8 mg (0.3 mL) subcut DAILY #0 mL 11/29/22 mL) subcutaneous pen injector (Victoza 3-Tanmay) naloxone 4 mg/actuation nasal 4 mg intranasal Q2-3M PRN #2 ea 11/29/22 spray (Narcan) pantoprazole 40 mg tablet,delayed 40 mg PO BID #60 tabs 11/29/22 release (Protonix) ferrous sulfate 325 mg (65 mg 325 mg PO BID 12/15/22 iron) tablet,delayed release gabapentin 600 mg tablet mg PO TID 12/15/22 levetiracetam 1,000 mg tablet 1,000 mg PO Q12H #60 tabs 12/15/22 baclofen 10 mg tablet 10 mg PO TID PRN #30 tabs 12/16/22 cyclobenzaprine 10 mg tablet 10 mg PO TID PRN muscle spasm #20 12/22/22 tabs ibuprofen 600 mg tablet 600 mg PO TID PRN pain #30 tabs 12/22/22 cefadroxil 500 mg capsule 500 mg PO BID #28 caps 01/11/23 clindamycin HCl 150 mg capsule 450 mg PO TID #63 caps 01/12/23 acetaminophen 500 mg tablet 1,000 mg PO TID 01/17/23 Current Visit Medications: Current Medications Generic Name Dose Route Start Last Admin Trade Name Freq PRN Reason Stop Dose Admin Acetaminophen 975 mg 01/17/23 20:00 01/18/23 09:17 Acetaminophen 325 Mg Tab PO Not Given TID ALAN Albuterol Sulfate 2 puff 01/17/23 17:35 Albuterol Hfa 8 Gm 60 Puff Inh IH Q3H PRN PRN Shortness Of Breath Or Wheezing Aspirin 81 mg 01/18/23 08:30 01/18/23 09:18 Aspirin E.C. 81 Mg Tabec PO Not Given DAILY [facility] Atorvastatin Calcium 80 mg 01/17/23 20:00 01/17/23 21:00 Atorvastatin 40 Mg Tab PO 80 mg QPM ALAN Administration Baclofen 10 mg 01/17/23 20:00 Baclofen 10 Mg Tab PO TID PRN PRN Budesonide/Formoterol Fumarate 2 puff 01/18/23 08:30 01/18/23 08:58 Budesonide/Formoterol 80/4.5 6.9 Gm 60 Puff Inh IH 2 puffs BID [facility] Administration Carvedilol 3.125 mg 01/17/23 20:00 01/18/23 09:18 Carvedilol 3.125 Mg Tab PO Not Given BID [facility] Citalopram Hydrobromide 20 mg 01/18/23 08:30 01/18/23 09:18 Citalopram 20 Mg Tab PO Not Given DAILY [facility] Clopidogrel Bisulfate 75 mg 01/18/23 08:30 01/18/23 09:18 Clopidogrel 75 Mg Tab PO Not Given DAILY [facility] Device 1 each 01/17/23 18:00 Inhaler, Assist Device MC DIRECTED [facility] Dextrose 0 gm 01/17/23 17:41 Glucose Oral Gel 15 Gm/37.5 Gm Tube PO DIRECTED PRN Dextrose/Water 0 gm 01/17/23 17:41 Dextrose 50%-Water 25 Gm/50 Ml Syr IVP DIRECTED PRN Empagliflozin 10 mg 01/19/23 08:30 Empaglifozin 10 Mg Tab PO DAILY [facility] Folic Acid 1 mg 01/18/23 08:30 01/18/23 09:18 Folic Acid 1 Mg Tab PO Not Given DAILY [facility] Gabapentin 600 mg 01/18/23 08:00 01/18/23 12:32 Gabapentin 600 Mg Tab PO Not Given 0800,1200 [facility] Gabapentin 1,200 mg 01/18/23 20:00 Gabapentin 600 Mg Tab PO QPM [facility] Hydromorphone HCl 1 mg 01/17/23 20:00 01/18/23 10:23 Hydromorphone 2 Mg/Ml Syr IVP 1 mg Q2H PRN PRN Administration Sodium Chloride 1,000 mls @ 100 mls/hr 01/17/23 17:30 01/18/23 06:14 Saline 1000ml Bag IV 100 mls/hr INFUSION [facility] Administration Cefepime HCl 2 gm/ Sodium 100 mls @ 200 mls/hr 01/17/23 22:00 01/18/23 06:11 Chloride IVPB Infused Q8H [facility] Infusion Vancomycin/PEG/NADA/Lysine/Water 1.5 gm in 300 mls @ 200 mls/hr 01/18/23 20:00 Vancocin Injection IVPB Q24H [facility] Protocol IV Miscellaneous Supplies 1 each 01/17/23 17:00 Iv Access IV DIRECTED [facility] Insulin Aspart 0 units 01/18/23 08:00 01/18/23 08:48 Insulin Aspart 300 Units/3 Ml Pen SC Not Given 0800,1200,1700 [facility] Protocol Insulin Aspart 0 units 01/18/23 08:00 01/18/23 12:16 Insulin Aspart 300 Units/3 Ml Pen SC Not Given 0800,1200,1700 [facility] Ketorolac Tromethamine 15 mg 01/18/23 00:00 01/18/23 12:14 Ketorolac 15 Mg/Ml Vial IVP 01/23/23 00:00 15 mg Q6H [facility] Administration Lactobacillus Acidophilus/Casei 1 cap 01/18/23 08:30 01/18/23 09:19 L. Acidophilus, Casei, Rhamnosus Cap PO Not Given DAILY [facility] Levetiracetam 1,000 mg 01/17/23 20:00 01/18/23 09:19 Levetiracetam 500 Mg Tab PO Not Given Q12H [facility] Magnesium Oxide 400 mg 01/17/23 20:00 01/18/23 09:19 Magnesium Oxide 400 Mg Tab PO Not Given BID [facility] Methadone HCl 130 mg 01/18/23 08:30 01/18/23 08:52 Methadone Liquid 10 Mg/Ml PO 130 mg DAILY [facility] Administration Metoprolol Succinate 25 mg 01/18/23 08:30 01/18/23 09:20 Metoprolol Cr 25 Mg Tabcr PO Not Given DAILY [facility] Nitroglycerin 0.4 mg 01/17/23 20:00 Nitroglycerin 0.4 Mg Tab SL Q5 MIN PRN X3 PRN Oxycodone HCl 5 mg 01/17/23 19:18 Oxycodone 5 Mg Tab PO Q4H PRN PRN Pantoprazole Sodium 40 mg 01/18/23 07:30 01/18/23 09:20 Pantoprazole 40 Mg Tabcr PO Not Given BID@0730,1999 [facility] Pt's Own Liraglutide 1.8 each 01/18/23 08:30 01/18/23 09:20 [Victoza] 18 Mg/3 SC Not Given Ml Pen DAILY [facility] Pt's Own Insulin 120 each 01/18/23 08:30 01/18/23 09:20 Degludec (Tresiba) SC Not Given 200 Units/Ml Pen DAILY [facility] Potassium Chloride 20 meq 01/18/23 08:30 01/18/23 09:20 Potassium Chloride 20 Meq Tabcr PO Not Given TID [facility] Sodium Chloride 0 ml 01/17/23 16:48 01/17/23 21:02 Normal Saline Flush 10 Ml Syr IVP 20 ml PRN PRN Administration Torsemide 40 mg 01/18/23 08:30 01/18/23 09:20 Torsemide 20 Mg Tab PO Not Given DAILY [facility] PFSH Active Problems Active Problems: Problem Status Onset Code Surgical wound infection T81.49XA Surgical wound dehiscence T81.31XA Fatigue R53.83 Polypharmacy Z79.899 Chest pain R07.9 Fracture of tibial shaft, right, closed S82.201A Cellulitis of right leg L03.115 Opioid dependence F11.20 Recurrent episodes of unresponsiveness R41.89 Syncope R55 Closed fracture of right fibula and tibia S82.201A, S82.401A Closed fracture of shaft of right tibia and fibula 11/23/22 S82.201A, S82.401A QT prolongation R94.31 Nonspecific paroxysmal spell R40.4 Episode of unresponsiveness R41.89 Chronic systolic CHF (congestive heart failure) I50.22 Ischemic cardiomyopathy I25.5 Obstructive sleep apnea G47.33 Hallucinations R44.3 Chronic respiratory failure with hypoxia J96.11 Fracture of finger, left S62.609A Syncopal episodes R55 Observed seizure-like activity R56.9 Opioid dependence on agonist therapy F11.20 Leg wound, left S81.802A 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 Pulmonary HTN I27.20 Heart failure I50.9 Vertigo R42 GERD (gastroesophageal reflux disease) K21.9 Essential hypertension I10 Asthma J45.909 Depression F32.A PTSD (post-traumatic stress disorder) F43.10 Tobacco abuse disorder Z72.0 Hypokalemia E87.6 Chronic gout M1A.[id number] Hyperlipidemia E78.5 Diabetic peripheral neuropathy E11.42 Type 2 diabetes mellitus E11.9 Medical History Medical History (Updated 01/17/23 @ 19:18 by Luis Romero MD) COVID was vaccinated but contracted Covid 06/22 History of gastrointestinal ulcer Non-STEMI (non-ST elevated myocardial infarction) 09/02/21 Surgical History Surgical History H/O bone graft left knee H/O shoulder surgery x4 and ending with a full replacement H/O total hysterectomy History of appendectomy History of colonoscopy History of esophagogastroduodenoscopy (EGD) gastritis with gastric ulcers Previous section x4 delivery Tobacco Smoking/Tobacco Use Status: Current every day Tobacco Type: cigarettes Alcohol Alcohol Intake: current Alcohol intake frequency: holidays/special occasions only Alcohol type: beer Substance Use Substance use: Never Substance use type: does not use Vital Signs and Lab Results Vital Signs Most Recent Vital Signs in EMR: Most Recent Vital Signs Temp Pulse Resp BP Pulse Ox 36.8 C 73 17 101/62 98 01/18/23 11:29 01/18/23 11:29 01/18/23 11:29 01/18/23 11:29 01/18/23 11:29 Point of Care Results Point of Care Results: Finger Stick Blood Glucose 117 01/18/23 12:16 Lab Results 01/17/23 17:15 01/18/23 06:30 Blood Type / Crossmatch: No Data to Display Complete Blood Count: White Blood Count 9.66 10^3/uL (4.4-10.8) 01/17/23 17:15 Red Blood Count 4.83 10^6/uL (3.93-5.22) 01/17/23 17:15 Hemoglobin 13.9 g/dL (11.2-15.7) 01/17/23 17:15 Hematocrit 41.4 % (36.0-46.0) 01/17/23 17:15 Platelet Count 321 10^3/uL (130-400) 01/17/23 17:15 Venous Blood Lactate 1.3 mmol/L (0.6-1.4) 01/17/23 17:15 Complete Metabolic Panel: Sodium 144 mmol/L (136-145) 01/18/23 06:30 Potassium 4.0 mmol/L (3.5-5.1) 01/18/23 06:30 Chloride 109 mmol/L (98-107) H 01/18/23 06:30 Carbon Dioxide 29.2 mmol/L (21.0-32.0) 01/18/23 06:30 BUN 35 mg/dL (7-18) H 01/18/23 06:30 Creatinine 1.1 mg/dL (0.55-1.02) H 01/18/23 06:30 Est GFR (CKD-EPI 2020) 62.37 (mL/min/1.73m2) 01/18/23 06:30 Magnesium 2.4 mg/dL (1.8-2.4) 01/17/23 17:15 Calcium 8.6 mg/dL (8.5-10.1) 01/18/23 06:30 Albumin 3.9 g/dL (3.4-5.0) 01/17/23 17:15 Glucose 136 mg/dL (74-106) H 01/18/23 06:30 Liver Function Panel: Alanine Aminotransferase (ALT/SGPT) 24 U/L (14-59) 01/17/23 17:15 Aspartate Amino Transf (AST/SGOT) 18 U/L (15-37) 01/17/23 17:15 Coagulation Panel: INR International Normalized Ratio 1.0 (0.9-1.1) 12/22/22 17:05 Prothrombin Time 9.9 sec (9.3-11.0) 12/22/22 17:05 Activated Partial Thromboplast Time 26.0 sec (21.5-31.9) 12/22/22 17:05 Cardiac Panel: Troponin I < 50 ng/L (<or=60) 01/18/23 NT-Pro-B Natriuret Pep 252 pg/mL (<300) 12/22/22 Arterial Blood Gas: No Data to Display Venous Blood Gas: Venous Blood pH 7.35 (7.31-7.41) 12/31/22 20:04 Venous Blood Partial Pressure O2 47 mmHg 12/31/22 20:04 Venous Blood Partial Pressure CO2 54 mmHg (41-51) H 12/31/22 20:04 Venous Blood Oxygen Saturation 82 % 12/31/22 20:04 Venous Blood HCO3 30 mmol/L (23-28) H 12/31/22 20:04 Venous Blood Base Excess 5 mmol/L (-2-3) H 12/31/22 20:04 Venous Blood Total Carbon Dioxide 28 mmol/L (24-29) 12/31/22 20:04 Pancreas Panel: No Data to Display Thyroid Panel: Thyroid Stimulating Hormone (TSH) 4.65 uIU/mL (0.36-3.74) H 12/31/22 20:04 Infectious Disease: Coronavirus (COVID-19)(PCR) Negative (Negative) 01/17/23 18:15 Coronavirus 2019 Source Nasal/Nares 01/17/23 18:15 Blood Cultures: No Data to Display Toxicology Panel: Ethyl Alcohol Level < 3.0 mg/dL (<10) 12/31/22 20:04 Urine Amphetamines Screen Negative (Negative) 12/31/22 20:53 Urine Benzodiazepines Screen Negative (Negative) 12/31/22 20:53 Urine Barbiturates Screen Negative (Negative) 12/31/22 20:53 Urine Cocaine Screen Negative (Negative) 12/31/22 20:53 Urine Methadone Screen Positive (Negative) A 12/31/22 20:53 Urine Opiates Screen Negative (Negative) 12/31/22 20:53 Ur Tricyclic Antidepressants Screen Negative (Negative) 12/31/22 20:53 Ur Tetrahydrocannabinol (THC) Scrn Negative (Negative) 12/31/22 20:53 Panel: No Data to Display Imaging and Studies Imaging and Studies Study information below may be from another EMR and interpreted by another provider. Please see original notes in EMR for more complete details. EKG Summary: Conclusion Sinus rhythm...normal P axis, V-rate 60- 99 Anteroseptal infarct, old...Q >40mS, V1-V2 Prolonged QT interval...QTc >510mS Echocardiogram Summary: 10/19/2022: LVEF 39%, LV severely dilated, mod MR, trace TR, Pulmonary Function Summary: 10/26/2022: [facility] PFT found normal FEV1, FVC, and FEV1/FVC. No significant change with bronchodilator administration. TLC normal. Impression was normal lung function. Anesthesia Assessment and Plan Anesthesia History Personal History: No History of Anesthesia Complications Family History: No Family History of Anesthesia Complications Exercise Tolerance Exercise Tolerance: Unknown Cardiac & Pulmonary Exam Cardiac Exam: Normal S1/S2 Heart Sounds Pulmonary Exam: Clear Bilateral Breath Sounds Implantable Cardiac Device Does patient have a Pacemaker or an ICD?: No Airway Exam Known Difficult Airway: No Mallampati Class: 3 Mouth Opening: Normal (> 3cm) Thyromental Distance: Greater than 3 cm Neck Range of Motion: Full ROM Neck Circumference: Normal Teeth Condition: Generalized Poor Dentition ASA Classification ASA Score: ASA 3 Emergency Case?: No NPO Status NPO Status: NPO Clears >2 hours, Solids >8 hours Status Status: History of Hysterectomy Anesthesia Plan Resuscitation Status: Full Code Anesthesia Technique: General Anesthesia Airway Planned: LMA Monitors Used: Standard Monitors and SedLine Preoperative Comments:: Reports intermittent nausea, but none currently. Pain is difficult to control and had lengthy conversation regarding post I/D coverage.
[2023-01-18] MEDS: Lactated Ringers 1,000 ML 50 ML IV (13:45)
--- NOTE | 2023-01-18 14:04 | PDOC.CMIN ---
- If Service Date Differs Date of service: 01/18/23 Time of Service: 14:04 Care Management Initial Assess REASON FOR HOSPITALIZATION:: Right Surgical Would Infection PAST MEDICAL HISTORY/PAST SURGICAL HISTORY:: Medical History (Updated 01/17/23 @ 19:18 by Luis Romero MD). COVID. was vaccinated but contracted Covid 06/22. History of gastrointestinal ulcer. Non-STEMI (non-ST elevated myocardial infarction). 09/02/21. Surgical History . H/O bone graft. left knee. H/O shoulder surgery. x4 and ending with a full replacement. H/O total hysterectomy. History of appendectomy. History of colonoscopy. History of esophagogastroduodenoscopy (EGD). gastritis with gastric ulcers. Previous section. x4 delivery PREVIOUS FUNCTIONAL STATUS/SOCIAL/FAMILY SUPPORTS:: Resides in [place], is . She presents after being instructed to follow-up in the ER by orthopedic surgeon. Past medical history includes type 2 diabetes which is poorly controlled, tobacco abuse disorder, PTSD, depression asthma, GERD, heart failure pulmonary hypertension, cardiomyopathy. CURRENT FUNCTIONAL STATUS:: Brought to the OR today for drainage and wound vac placement. ADVANCE DIRECTIVES:: None on file. Has patient been provided with info about the portal/API?: Yes Did the patient sign up for the portal?: No CODE STATUS:: Full Code INSURANCE COVERAGE / FINANCIAL ISSUES:: Medicare. Medicaid CURRENT HOME/COMMUNITY SERVICES/EQUIPMENT:: None, currently. PRIMARY CARE PHYSICIAN:: Antonia Bertrand POTENTIAL DISCHARGE NEEDS:: Anticipate increased services, possible wound vac. PATIENT/FAMILY EDUCATION NEEDS:: Review discharge instructions, discuss Ask Me Three. ANTICIPATED BARRIERS TO DISCHARGE:: None identified. TRANSPORTATION:: Via private vehicle with family. PLAN:: December will return home when ready per MD. Anticipate new home health services and possible wound vac, if needed. CM continues to follow.
[2023-01-18] MEDS: Bupivacaine 0.5% Pres-Free W/EPI 30 ML VIAL (14:20)
--- NOTE | 2023-01-18 14:36 | CHAPLAIN ---
Aracelis was waiting to go to the OR today when I visited this morning. She was scheduled for surgery at noon for an infection in her leg following surgery here a while ago. She'd had blair put in her right led, she said, and now has an infection. I will continue to visit.
--- NOTE | 2023-01-18 14:45 | W.PM.OP ---
Date of service: 01/18/23 Time of Service: 14:45 Operative Note Operative Note DATE OF PROCEDURE: 01/18/23 PRE-OP DIAGNOSIS: Right knee surgical wound dehiscence and infection POST-OP DIAGNOSIS: same PROCEDURE: Irrigation and debridement of right lateral knee wound with wound VAC application SURGEON: Stevenson Wisdom STEREOPTIC PROJECTION TOPOGRAPHER: Annetta Lazar ANESTHESIA TYPE: General:No Airway Refer to Anesthesia Record ESTIMATED BLOOD LOSS: 5 PATHOLOGY: other (Cultures from the knee and knee wound were sent) TOURNIQUET TIME: 0 COMPLICATIONS: None Indications: Aracelis is a 47-year-old who had a dehiscence of the right lateral knee wound which is now secondarily infected. Despite home treatment she had worsening symptoms. Therefore I recommend we proceed to the operating room for irrigation debridement with wound VAC placement. I reviewed the treatment options with her. I discussed the risk of this procedure to include continued infection, need for repeat procedures, pain, stiffness. Despite these risk, she elected to proceed. Findings: There is a surgical wound dehiscence which was opened up. There is no gross purulence. The knee was aspirated with clear synovial fluid, approximately 6 cc. The wound was opened up to expose any potential undermining. The wound size was 5 and half centimeters in length, 2 cm in width, and 1 cm in depth. There is at most 1 cm of undermining around the skin edge. Procedure Description: Aracelis was greeted in the preoperative holding area. Her identity was confirmed and the correct site was identified and marked. The consent was reviewed with patient and signed. She was taken to the operating room. She was placed in the supine position. All bony prominences were well-padded. Her regular scheduled antibiotics were given but there is no additional antibiotics prescribed for this surgery. The right leg was then prepped with ChloraPrep at the foot and Betadine at the open wound. The right leg was draped in a standard fashion. A timeout was performed for safe surgery. The knee was aspirated via a medial type approach. Approximately 6 cc of normal-appearing joint fluid was aspirated. This was sent for culture although there is no appearance of infection and therefore no knee arthroscopic lavage or other intra-articular knee the procedure was performed. Attention was then turned to the lateral knee wound. There is a defect about 2 and half centimeters in length. However, there is undermining underneath the previous incision with some drainage from the distalmost aspect of the incision. Therefore, I used a knife to excise the skin edges and open up the previous right knee wound. The wound was thoroughly inspected. There was some slough and debris, however, minimal purulence. There is no defect noted in the underlying capsule or deeper layers. There is minimal undermining well about 1 cm around the edges. Rongeur was used to debride any of this necrotic appearing tissue. A curette was also used. The wound then measured 5 and half centimeters in length by 2 cm in width by 1 cm in depth with about 1 cm of undermining. The wound was then irrigated with 3 L of normal saline. A wound VAC was then applied with a black foam sponge. Suction was applied and was maintained. At the end the case all counts were correct. She was taken back to the PACU in stable condition. We will continue with her empiric antibiotics of cefepime and vancomycin. Continue to follow the previous cultures as well as a culture was obtained today.
[2023-01-18] MEDS: fentaNYL 100 MCG/2 ML VIAL IVP ×2 (14:51→15:03)
[2023-01-18] MEDS: HYDROmorphone 2 MG/ML SYR IVP ×4 (15:17→15:47)
--- NOTE | 2023-01-18 15:29 | W.ANESPOSTOP ---
Postoperative Evaluation Date, Time and Location Date Performed: 01/18/23 Time Performed: 15:29 Patient Location: PACU Vital Signs Most Recent Imported Vital Signs: Most Recent Vital Signs Temp Pulse Resp BP Pulse Ox 36.7 C 71 16 117/58 L 98 01/18/23 15:00 01/18/23 15:15 01/18/23 15:15 01/18/23 15:15 01/18/23 15:15 Pain Score Most Recent Pain Score: Most Recent Pain Score Pain Level 8 01/18/23 15:15 Assessment Mental Status: Awake (Alert & Oriented to Patient Baseline) Airway and Respiratory Function: Patent airway with normal (patient baseline) respiratory exam Cardiovascular Function: Hemodynamically Stable Hydration Status: Adequately Hydrated Nausea & Vomiting: No Nausea or Vomiting Pain: Pain is Moderate or Severe Postoperative Pain Management: Pain being addressed with medication Peripheral Nerve Block: Patient did not receive a nerve block Postoperative Comments:: Pain in knee. Her vital signs are stable and she is receiving additional analgesia. She is able to joke and smile/discuss fashion as well.
--- NOTE | 2023-01-18 17:07 | W.PM.PROGNOT ---
Date of Service Date of service: 01/18/23 Time of Service: 17:07 Assessment and Plan Assessment and plan (1) Surgical wound infection: Status: Acute Assessment and plan: s/p I&D of her right tibial wound. Now has wound vaccuum applied. If edema does not improve then consider US of the leg. continue cefepime and vancomycin; check wound cultures; monitor inflammatory markers. (2) Surgical wound dehiscence: Status: Acute Assessment and plan: as above (3) Closed fracture of shaft of right tibia and fibula: Status: Acute Assessment and plan: her last xray image of her right knee was from 12/16/22 and showed stability in her fracture. (4) Ischemic cardiomyopathy: Status: Chronic Assessment and plan: she has no CP or dyspnea and her lungs are clear. Although she has edema in her right leg this seems to be primarily confined to the knee and proximal tibia/calf; in my opinion she is not in acute CHF. continue her home antiischemic and anti-chf meds which include torsemide, metoprolol, and her preventative meds of atorvastatin and ASA. (5) Type 2 diabetes mellitus: Status: Chronic Assessment and plan: patient's home dosing of Victoza and Tresiba have been ordered by Dr. Wisdom, patient is to have family bring this in for pharmacy to verify. However, we will also oreder novolog sliding scale and meal time coverage of her glucose readings. Her glucose is expected to be high d/t her infection and should come back under control w/ control of the infection. her las HbA1C was not well controlled at 7.1% on 12/16/22 but it sounds like she has been dealing w/ this infection for about 3 weeks now so her glucose probably was rising in response to her infection. Her prior HbA1C was 6.3% back in 10/29/22. Glucose today has been on the lower side but no true hypoglycemia spells. Glucose running 100 to 128. She is on novolog insulin resistant sliding scale as well as CHO coverage at 1:10 ratio.I will reduce her sliding scale. Hopefully after she is eating better her glucose will improve. (6) Diabetic peripheral neuropathy: Status: Acute Assessment and plan: currently on gabapentin 600 mg bid 8 am and 12 noon, along w/ 1200 mg po qpm; already taking Celexa 20 mg daily. (7) PTSD (post-traumatic stress disorder): Status: Acute (8) Opioid dependence: Status: Chronic Assessment and plan: continue her home dose of methadone 130 mg daily.. she has prn oxycodone 5 mg po q4h prn pain as well as hydromorphone 1 mg iv q1h prn pain. She is on scheduled doses of ketorolac 15 mg iv q6hr (9) Obstructive sleep apnea: Status: Chronic Subjective Subjective Interval history since last seen: Patient complains of pain in her right leg from knee down to the foot. She is s/p I&D of her surgical wound from her ORIF of her tib/fib frx from 11/24/22. She is currently on vancomycin and cefepime. Exam Narrative Exam Narrative: Aracelis is back in her room from her I&D procedure and has a wound vac on her wound Lungs: clear anteriorly, she has some faint rales at right lung base; no rhonchi or wheezing Heart: distant heart tones but regular, no murmur Legs: R. leg w/ wound vac over the lateral proximal tibia, pedal pulses intact; she has edema of the right lower leg Objective Last Vital Signs Temp 36.7 C 01/18/23 15:30 Pulse 65 01/18/23 15:45 Resp 14 01/18/23 15:45 BP 117/62 01/18/23 15:45 Pulse Ox 98 01/18/23 15:45 Laboratory Results - last 24 hr 01/17/23 01/17/23 01/17/23 17:15 17:15 17:15 WBC 9.66 RBC 4.83 Hgb 13.9 Hct 41.4 MCV 86 MCH 28.8 MCHC 33.6 RDW 14.6 Plt Count 321 MPV 9.7 Immature Gran % 0.2 Neutrophils % 43.5 Band Neutrophils % Lymphocytes % 39.4 Atypical Lymphs % Monocytes % 10.7 Eosinophils % 5.7 Basophils % 0.5 Metamyelocytes % Myelocytes % Promyelocytes % Other Cells % Nucleated RBC % 0.0 Absolute Neutrophils 4.20 Absolute Lymphocytes 3.81 H Absolute Monocytes 1.03 H Absolute Eosinophils 0.55 Absolute Basophils 0.05 RBC Morphology Polychromasia Hypochromasia Poikilocytosis Basophilic Stippling Anisocytosis Microcytosis Macrocytosis Spherocytes Tear Drop Cells Ovalocytes Stomatocytes Patricelly Bodies Fernando Cells/Echinocytes Acanthocytes (Spur) Schistocytes VBG Lactate 1.3 Sodium 141 Potassium 3.2 L Chloride 100 Carbon Dioxide 32.9 H Anion Gap 8.1 BUN 30 H Creatinine 0.9 Est GFR (CKD-EPI 2020) 79.35 Glucose 135 H Calcium 9.4 Magnesium 2.4 Total Bilirubin 0.4 AST 18 ALT 24 Alkaline Phosphatase 151 H Troponin I Total Protein 8.3 H Albumin 3.9 COVID-19 Source SARS-CoV-2 (PCR) 01/17/23 01/17/23 01/17/23 17:15 17:24 17:24 WBC Cancelled RBC Cancelled Hgb Cancelled Hct Cancelled MCV Cancelled MCH Cancelled MCHC Cancelled RDW Cancelled Plt Count Cancelled MPV Cancelled Immature Gran % Cancelled Neutrophils % Cancelled Band Neutrophils % Cancelled Lymphocytes % Cancelled Atypical Lymphs % Cancelled Monocytes % Cancelled Eosinophils % Cancelled Basophils % Cancelled Metamyelocytes % Cancelled Myelocytes % Cancelled Promyelocytes % Cancelled Other Cells % Cancelled Nucleated RBC % Cancelled Absolute Neutrophils Cancelled Absolute Lymphocytes Cancelled Absolute Monocytes Cancelled Absolute Eosinophils Cancelled Absolute Basophils Cancelled RBC Morphology Cancelled Polychromasia Cancelled Hypochromasia Cancelled Poikilocytosis Cancelled Basophilic Stippling Cancelled Anisocytosis Cancelled Microcytosis Cancelled Macrocytosis Cancelled Spherocytes Cancelled Tear Drop Cells Cancelled Ovalocytes Cancelled Stomatocytes Cancelled [place] Bodies Cancelled [place] Cells/Echinocytes Cancelled Acanthocytes (Spur) Cancelled Schistocytes Cancelled VBG Lactate Sodium Cancelled Potassium Cancelled Chloride Cancelled Carbon Dioxide Cancelled Anion Gap Cancelled BUN Cancelled Creatinine Cancelled Est GFR (CKD-EPI 2020) Cancelled Glucose Cancelled Calcium Cancelled Magnesium Cancelled Total Bilirubin Cancelled AST Cancelled ALT Cancelled Alkaline Phosphatase Cancelled Troponin I < 50 Total Protein Cancelled Albumin Cancelled COVID-19 Source SARS-CoV-2 (PCR) 01/17/23 01/17/23 01/18/23 18:15 20:24 06:30 WBC RBC Hgb Hct MCV MCH MCHC RDW Plt Count MPV Immature Gran % Neutrophils % Band Neutrophils % Lymphocytes % Atypical Lymphs % Monocytes % Eosinophils % Basophils % Metamyelocytes % Myelocytes % Promyelocytes % Other Cells % Nucleated RBC % Absolute Neutrophils Absolute Lymphocytes Absolute Monocytes Absolute Eosinophils Absolute Basophils RBC Morphology Polychromasia Hypochromasia Poikilocytosis Basophilic Stippling Anisocytosis Microcytosis Macrocytosis Spherocytes Tear Drop Cells Ovalocytes Stomatocytes [place] Bodies Fernando Cells/Echinocytes Acanthocytes (Spur) Schistocytes VBG Lactate Sodium 144 Potassium 4.0 Chloride 109 H Carbon Dioxide 29.2 Anion Gap 5.8 BUN 35 H Creatinine 1.1 H Est GFR (CKD-EPI 2020) 62.37 Glucose 136 H Calcium 8.6 Magnesium Total Bilirubin AST ALT Alkaline Phosphatase Troponin I Cancelled Total Protein Albumin COVID-19 Source Nasal/Nares SARS-CoV-2 (PCR) Negative 01/18/23 06:30 WBC RBC Hgb Hct MCV MCH MCHC RDW Plt Count MPV Immature Gran % Neutrophils % Band Neutrophils % Lymphocytes % Atypical Lymphs % Monocytes % Eosinophils % Basophils % Metamyelocytes % Myelocytes % Promyelocytes % Other Cells % Nucleated RBC % Absolute Neutrophils Absolute Lymphocytes Absolute Monocytes Absolute Eosinophils Absolute Basophils RBC Morphology Polychromasia Hypochromasia Poikilocytosis Basophilic Stippling Anisocytosis Microcytosis Macrocytosis Spherocytes Tear Drop Cells Ovalocytes Stomatocytes [place] Bodies [place] Cells/Echinocytes Acanthocytes (Spur) Schistocytes VBG Lactate Sodium Potassium Chloride Carbon Dioxide Anion Gap BUN Creatinine Est GFR (CKD-EPI 2020) Glucose Calcium Magnesium Total Bilirubin AST ALT Alkaline Phosphatase Troponin I < 50 Total Protein Albumin COVID-19 Source SARS-CoV-2 (PCR) Time Spent with Patient Time Spent with Patient: <25 minutes Time was spent: preparing to see the patient(eg.review tests), ordering medications,tests, procedures, indepentently interpreting results and care coordination
--- NOTE | 2023-01-18 19:42 | NUR.NOTE ---
Nursing Note: NS Infusion, pt refused IVF ; endorse to next shift RN
[2023-01-18] MEDS: levETIRAcetam 500 MG TAB 1000 MG PO (20:42)
[2023-01-18] MEDS: Pantoprazole 40 MG TABCR PO (20:42)
[2023-01-18] MEDS: Gabapentin 600 MG TAB 1200 MG PO (20:42)
[2023-01-18] MEDS: Acetaminophen 325 MG TAB 975 MG PO (20:43)
[2023-01-18] MEDS: Magnesium Oxide 400 MG TAB PO (20:43)
[2023-01-18] MEDS: Potassium Chloride 20 MEQ TABCR PO (20:43)
[2023-01-18] MEDS: Atorvastatin 40 MG TAB 80 MG PO (20:44)
[2023-01-18] MEDS: Carvedilol 3.125 MG TAB PO (20:46)
[2023-01-18] MEDS: VANCOMYCIN/WATER (PEG) 1.5 GM/300 ML BAG IVPB (20:47)
[2023-01-18] MEDS: Normal Saline Flush 10 ML SYR IVP (20:48)
[2023-01-18] MEDS: Insulin Aspart 300 UNITS/3 ML PEN SC ×2 (21:34)
--- NOTE | 2023-01-18 22:40 | NUR.NOTE ---
Nursing Note: patient refused IV fluids charge nurse notified
[2023-01-19] MEDS: Baclofen 10 MG TAB PO ×2 (03:22→08:09)
[2023-01-19] MEDS: HYDROmorphone 2 MG/ML SYR 1 MG IVP ×7 (03:22→23:27)
[2023-01-19] MEDS: oxyCODONE 5 MG TAB PO ×3 (03:22→14:03)
[2023-01-19 03:39] VITALS: BP 107/64; PULSE 77; RESP 18; TEMP 37; O2SAT 95
[2023-01-19] MEDS: CEFEPIME 2 GM in Normal Saline 100 ML IVPB ×3 (05:04→23:27)
[2023-01-19] MEDS: Ketorolac 15 MG/ML VIAL IVP ×4 (05:05→23:26)
[2023-01-19] MEDS: Normal Saline Flush 10 ML SYR IVP ×2 (05:05→08:29)
[2023-01-19 06:24] VITALS: BP 116/64; PULSE 96; RESP 18; TEMP 37.5; O2SAT 94
[2023-01-19 06:43] LABS: Abs Immature Grans 0.03 10^3/uL (0.0-0.06); Absolute Basophil Count 0.03 10^3/uL (0.0-0.2); Absolute Eosinophil Count 0.53 10^3/uL (0.0-0.7); Absolute Lymphocyte Count 2.72 10^3/uL (1.2-3.4); Absolute Monocyte Count 0.68 10^3/uL (0.1-0.8); Absolute Neutrophil Count 2.52 10^3/uL (1.2-6.7); Basophils % 0.5; Eosinophils % 8.1; HCT 36.4 % (36.0-46.0); HGB 11.8 g/dL (11.2-15.7); Immature Grans % 0.5; Lymphocytes % 41.8; MCH 28.6 pg (27.0-33.0); MCHC 32.4 % (32.0-36.0); MCV 88 fL (80-95); MPV 9.7 fL (8.0-11.0); Monocytes % 10.4; Neutrophils % 38.7; Platelet Count 260 10^3/uL (130-400); RBC 4.12 10^6/uL (3.93-5.22); RDW 14.6 % (11.7-14.6); RDW-SD 47.2 fL; WBC 6.51 10^3/uL (4.4-10.8)
[2023-01-19 06:56] LABS: Anion Gap 6.6 mmol/L (3-11); BUN 19 mg/dL (7-18); CO2 27.4 mmol/L (21.0-32.0); CREATININE 0.9 mg/dL (0.55-1.02); Calcium 8.5 mg/dL (8.5-10.1); Chloride 108 mmol/L (98-107); Estimated GFR 79.35 (mL/min/1.73m2); Glucose 294 mg/dL (74-106); Potassium 4.7 mmol/L (3.5-5.1); Sodium 142 mmol/L (136-145)
[2023-01-19 07:45] LABS: C-Reactive Protein 1.61 mg/dL (0.0-0.3)
[2023-01-19] MEDS: Acetaminophen 325 MG TAB 975 MG PO ×3 (08:09→20:48)
[2023-01-19] MEDS: Carvedilol 3.125 MG TAB PO (08:10)
[2023-01-19] MEDS: levETIRAcetam 500 MG TAB 1000 MG PO ×2 (08:10→20:47)
[2023-01-19] MEDS: Clopidogrel 75 MG TAB PO (08:11)
[2023-01-19] MEDS: Metoprolol CR 25 MG TABCR PO (08:11)
[2023-01-19] MEDS: Aspirin E.C. 81 MG TABEC PO (08:11)
[2023-01-19] MEDS: Citalopram 20 MG TAB PO (08:11)
[2023-01-19] MEDS: Folic Acid 1 MG TAB PO (08:12)
[2023-01-19] MEDS: Potassium Chloride 20 MEQ TABCR PO ×3 (08:12→20:47)
[2023-01-19] MEDS: Torsemide 20 MG TAB 40 MG PO (08:12)
[2023-01-19] MEDS: Empaglifozin 10 MG TAB PO (08:12)
[2023-01-19] MEDS: Pantoprazole 40 MG TABCR PO ×2 (08:12→20:47)
[2023-01-19] MEDS: Magnesium Oxide 400 MG TAB PO ×2 (08:13→20:46)
[2023-01-19] MEDS: Gabapentin 600 MG TAB PO ×2 (08:13→11:40)
[2023-01-19] MEDS: Insulin Aspart 300 UNITS/3 ML PEN SC ×5 (08:15→17:25)
[2023-01-19] MEDS: Methadone Liquid 10 MG/ML 130 MG PO (08:29)
[2023-01-19] MEDS: Budesonide/Formoterol 80/4.5 6.9 GM 60 PUFF INH IH ×2 (09:17→19:24)
[2023-01-19 11:20] VITALS: BP 104/64; PULSE 76; RESP 17; TEMP 36.9; O2SAT 96
--- NOTE | 2023-01-19 11:21 | DI.US_ITS ---
Exam(s) US LOWER EXTREMITY VENOUS RT EXAM: US LOWER EXTREMITY VENOUS RT CLINICAL HISTORY: R. LEG SWELLING AND PAIN. TECHNIQUE: Lower extremity venous ultrasound performed using grayscale, color-flow, and spectral Do ppler analysis. COMPARISON: No exams were available for comparison FINDINGS: The common femoral, femoral and popliteal veins demonstrate normal compressibility, augmentation, and color Doppler. The posterior tibial veins are patent. No saphenous vein thrombosis or other superfi cial venous thrombosis is seen. No hematoma or Talbert's cyst is seen. IMPRESSION: Negative lower extremity ultrasound. No evidence of DVT. DATA REPOSITORY:
--- NOTE | 2023-01-19 11:30 | CMPROGNOTE_ITS ---
- If Service Date Differs Date of service: 01/19/23 Time of Service: 11:30 Care Management Progress Note S/O: Per report, Aracelis was having swelling and pain in her leg. An ultrasound was ordered to determine if she has a DVT, which was negative. Per nursing, Aracelis has questions about housing resources post discharge. CM advised that she may contact [facility] for housing, if needed, on the day she is discharged. CM will provide education and support. CM will continue to follow. A: Aracelis is a 47 year old female admitted to [facility] on 01/17/23 for a right surgical wound infection. P: Aracelis will return home when ready per MD. Anticipate new home health services and possible wound vac, if needed. CM continues to follow.
--- NOTE | 2023-01-19 12:43 | W.PM.PROGNOT ---
Date of Service Date of service: 01/19/23 Time of Service: 13:13 Assessment and Plan Assessment and plan (1) Surgical wound infection: Status: Acute (2) Surgical wound dehiscence: Status: Acute (3) Closed fracture of shaft of right tibia and fibula: Status: Acute Assessment and plan: Plan: Ms. Monique is a 47-year-old female who is 1 day status post I&D of right lateral knee wound with wound vac placement on 01/18/23; she is status post right IM fixation of right tibia fracture on 11/24/22. Has continued to have regular doses of oral oxycodone as well as IV hydromorphone and her baseline methadone. Will continue with current pain medications. Reviewed medicine notes by Dr. Romero. Will continue with current antibiotics as per their recommendations based on wound cultures. Working to arrange outpatient wound vac supplies to likely switch dressing and transfer to outpatient wound vac tomorrow based on supply availability If able to arrange supplies would recommend discharge based on hospitalist recommendations. Subjective Subjective Interval history since last seen: Ms. Monique is a 47-year-old female who is 1 day status post I&D of right lateral knee wound with wound vac placement on 01/18/23; she is status post right IM fixation of right tibia fracture on 11/24/22. Reports continued discomfort diffusely about the right hip extending into her goddard. Pain is a constant sensation that is aggravated with movement and massage. Has continued to have regular doses of oral oxycodone as well as IV hydromorphone and her baseline methadone. Denies fevers or chills. Denies injuries. Exam Const General: cooperative and no acute distress Resp Effort & Inspection: normal respiratory effort and able to speak in complete sentences Extrem Other: Brief examination of right lower extremity: Wound VAC is in place with intact and dry dressing. Skin about lower leg is intact without significant signs of erythema, edema or calor. Patient is able to demonstrate toe flexion extension without issue. Patient is able to demonstrate gentle ankle range of motion which does elicit diffuse discomfort. We will sitting/laying in bed patient moves right lower extremity at hip and knee but reports significant discomfort. Moderate tenderness to palpation along IT band. Objective Last Vital Signs Temp 98.4 F 01/19/23 11:20 Pulse 76 01/19/23 11:20 Resp 17 04/20/23 11:20 BP 104/64 01/19/23 11:20 Pulse Ox 96 01/19/23 11:20 Laboratory Results - last 24 hr 01/19/23 01/19/23 06:20 06:20 WBC 6.51 RBC 4.12 Hgb 11.8 D Hct 36.4 MCV 88 MCH 28.6 MCHC 32.4 RDW 14.6 Plt Count 260 MPV 9.7 Immature Gran % 0.5 Neutrophils % 38.7 Lymphocytes % 41.8 Monocytes % 10.4 Eosinophils % 8.1 Basophils % 0.5 Nucleated RBC % 0.0 Absolute Neutrophils 2.52 Absolute Lymphocytes 2.72 Absolute Monocytes 0.68 Absolute Eosinophils 0.53 Absolute Basophils 0.03 Sodium 142 Potassium 4.7 Chloride 108 H Carbon Dioxide 27.4 Anion Gap 6.6 BUN 19 H Creatinine 0.9 Est GFR (CKD-EPI 2020) 79.35 Glucose 294 H Calcium 8.5 C-Reactive Protein 1.61 H Time Spent with Patient Time Spent with Patient: <25 minutes Time was spent: ordering medications,tests, procedures and care coordination
--- NOTE | 2023-01-19 12:58 | W.PM.PROGNOT ---
Date of Service Date of service: 01/19/23 Time of Service: 12:58 Assessment and Plan Assessment and plan (1) Right leg pain: Status: Acute Assessment and plan: Increased swelling and pain in the right leg including thigh and calf. DVT needs to be ruled out although I suspect this is mostly edema from her infection. She will get a formal venous duplex scan of her leg today. If it shows a clot then she will go on an oral DOAC. Professional time spent interviewing and examining patient, discussion of goals of care with hospital team (care management, nursing and consulting professionals) was 30 minutes outside of performing POCUS exam (2) Surgical wound infection: Status: Acute Assessment and plan: s/p I&D of her right tibial wound. Now has wound vaccuum applied. continue cefepime and vancomycin; check wound cultures; monitor inflammatory markers. (3) Surgical wound dehiscence: Status: Acute Assessment and plan: as above (4) Closed fracture of shaft of right tibia and fibula: Status: Acute Assessment and plan: her last xray image of her right knee was from 12/16/22 and showed stability in her fracture. (5) Ischemic cardiomyopathy: Status: Chronic Assessment and plan: she has no CP or dyspnea and her lungs are clear. Although she has edema in her right leg this seems to be primarily confined to the knee and proximal tibia/calf; in my opinion she is not in acute CHF. continue her home antiischemic and anti-chf meds which include torsemide, metoprolol, and her preventative meds of atorvastatin and ASA. Although she has increased edema in her right leg there is no pitting edema of her left foot or leg and no rales on pulmonary exam. Do not feel that she is in acute congestive failure. We will proceed with work-up for DVT of her right leg. (6) Type 2 diabetes mellitus: Status: Chronic Assessment and plan: patient's home dosing of Victoza and Tresiba have been ordered by Dr. Wisdom, patient is to have family bring this in for pharmacy to verify. However, we will also oreder novolog sliding scale and meal time coverage of her glucose readings. Her glucose is expected to be high d/t her infection and should come back under control w/ control of the infection. her las HbA1C was not well controlled at 7.1% on 12/16/22 but it sounds like she has been dealing w/ this infection for about 3 weeks now so her glucose probably was rising in response to her infection. Her prior HbA1C was 6.3% back in 10/29/22. Glucose is running on the higher side. She is now back on her home dose of Tresiba and Victoza. I have increased her sliding scale to insulin resistant levels as well as added increased carbohydrate coverage at a rate of 2-10. (7) Diabetic peripheral neuropathy: Status: Acute Assessment and plan: currently on gabapentin 600 mg bid 8 am and 12 noon, along w/ 1200 mg po qpm; already taking Celexa 20 mg daily. (8) PTSD (post-traumatic stress disorder): Status: Acute (9) Opioid dependence: Status: Chronic Assessment and plan: continue her home dose of methadone 130 mg daily.. she has prn oxycodone 5 mg po q4h prn pain as well as hydromorphone 1 mg iv q1h prn pain. She is on scheduled doses of ketorolac 15 mg iv q6hr (10) Obstructive sleep apnea: Status: Chronic Subjective Subjective Interval history since last seen: Patient complains of increasing pain in her right calf and mid to distal thigh. She says that the pain is worse then prior to her surgery. Exam Narrative Exam Narrative: Patient is in acute distress from pain, tearful Lungs: remain clear Heart: RRR Neck: no JVD Hands and arms: no edema Abdomen: obese, soft, nontender Legs/feet: no pitting edema of her left foot or pretibial surface Right thigh and calf are edematous; right calf is tender to palpation, mid thigh is tender, right lateral knee w/ wound vac in place; no purulent drainage Objective Last Vital Signs Temp 36.9 C 01/19/23 11:20 Pulse 76 01/19/23 11:20 Resp 17 01/19/23 11:20 BP 104/64 01/19/23 11:20 Pulse Ox 96 01/19/23 11:20 Laboratory Results - last 24 hr 01/19/23 01/19/23 06:20 06:20 WBC 6.51 RBC 4.12 Hgb 11.8 D Hct 36.4 MCV 88 MCH 28.6 MCHC 32.4 RDW 14.6 Plt Count 260 MPV 9.7 Immature Gran % 0.5 Neutrophils % 38.7 Lymphocytes % 41.8 Monocytes % 10.4 Eosinophils % 8.1 Basophils % 0.5 Nucleated RBC % 0.0 Absolute Neutrophils 2.52 Absolute Lymphocytes 2.72 Absolute Monocytes 0.68 Absolute Eosinophils 0.53 Absolute Basophils 0.03 Sodium 142 Potassium 4.7 Chloride 108 H Carbon Dioxide 27.4 Anion Gap 6.6 BUN 19 H Creatinine 0.9 Est GFR (CKD-EPI 2020) 79.35 Glucose 294 H Calcium 8.5 C-Reactive Protein 1.61 H Time Spent with Patient Time Spent with Patient: 25-34 minutes Time was spent: preparing to see the patient(eg.review tests), ordering medications,tests, procedures, indepentently interpreting results, counseling the patient and care coordination
--- NOTE | 2023-01-19 13:02 | W.POCUS ---
Pocus Exam Limited Vascular Exam DATE OF EXAM: 01/19/23 TIME OF EXAM: 12:41 PROVIDER THAT PERFORMED THE STUDY: Luis Romero IS THIS A REPEAT EXAM DURING THIS ENCOUNTER: No Vascular Exam: Right lower extremity REASON FOR EXAM: Concern for DVT right lower extremity, Right calf pain and Right lower extremity pain Did not tolerate exam DIFFERENTIAL DIAGNOSES: Right common femoral vein and artery was visualized as well as greater saphenous vein at the junction of the superficial femoral vein as well as lateral hearing aid fitter vein. Superficial femoral vein was visualized down to the mid thigh and then ultrasound was performed on the popliteal vein and artery. No clot was visualized. Popliteal vein was completely compressible as was the superficial femoral vein however the distal common femoral vein was difficult to compress due to patient complaining of increased pain. No clot was visualized however I difficulty completely compress and the distal common femoral vein secondary to the patient complained of increased pain. This is an indeterminate study and patient will have a follow-up complete venous duplex scan of her right leg.
[2023-01-19 14:55] VITALS: BP 101/69; PULSE 84; RESP 19; TEMP 36.7; O2SAT 97
--- NOTE | 2023-01-19 15:16 | NUR.NOTE ---
Nursing Note: this rn notified charge nurse av that pt was requesting medications for vomitting, and more pain mngt and requesting to see the doctor again. this rn asked for f/u from charge nurse
--- NOTE | 2023-01-19 16:53 | CHAPLAIN ---
December is here for surgical wound infection. She was in the OR yesterday. Today when I went into her room, she began throwing up and asked for a nurse. When I returned she said she was in a lot of pain. The nurse was came in shortly, so I didn't stay.
[2023-01-19] MEDS: HYDROmorphone 4 MG TAB PO ×2 (17:25→21:24)
[2023-01-19] MEDS: Enoxaparin 30 MG/0.3 ML SYR SC (19:05)
[2023-01-19 19:32] VITALS: BP 97/65; PULSE 74; RESP 19; TEMP 36; O2SAT 96
[2023-01-19] MEDS: Gabapentin 600 MG TAB 1200 MG PO (20:46)
[2023-01-19] MEDS: Atorvastatin 40 MG TAB 80 MG PO (20:47)
[2023-01-19] MEDS: VANCOMYCIN/WATER (PEG) 1.5 GM/300 ML BAG IVPB (20:48)
[2023-01-19 23:20] VITALS: BP 98/58; PULSE 78; RESP 16; TEMP 37; O2SAT 95
[2023-01-20] MEDS: HYDROmorphone 4 MG TAB PO ×5 (01:56→20:12)
[2023-01-20] MEDS: Ketorolac 15 MG/ML VIAL IVP ×3 (05:12→17:17)
[2023-01-20] MEDS: CEFEPIME 2 GM in Normal Saline 100 ML IVPB ×3 (05:16→22:18)
[2023-01-20 07:26] VITALS: BP 114/73; PULSE 74; RESP 18; TEMP 36.2; O2SAT 96
[2023-01-20] MEDS: Folic Acid 1 MG TAB PO (08:26)
[2023-01-20] MEDS: Magnesium Oxide 400 MG TAB PO ×2 (08:26→20:13)
[2023-01-20] MEDS: Pantoprazole 40 MG TABCR PO ×2 (08:26→20:13)
[2023-01-20] MEDS: Gabapentin 600 MG TAB PO ×2 (08:26→12:08)
[2023-01-20] MEDS: Clopidogrel 75 MG TAB PO (08:27)
[2023-01-20] MEDS: Acetaminophen 325 MG TAB 975 MG PO ×3 (08:27→20:12)
[2023-01-20] MEDS: Baclofen 10 MG TAB PO (08:28)
[2023-01-20] MEDS: Citalopram 20 MG TAB PO (08:29)
[2023-01-20] MEDS: Carvedilol 3.125 MG TAB PO (08:29)
[2023-01-20] MEDS: levETIRAcetam 500 MG TAB 1000 MG PO ×2 (08:30→20:13)
[2023-01-20] MEDS: Aspirin E.C. 81 MG TABEC PO (08:30)
[2023-01-20] MEDS: Potassium Chloride 20 MEQ TABCR PO ×3 (08:30→20:13)
[2023-01-20] MEDS: Empaglifozin 10 MG TAB PO (08:30)
[2023-01-20] MEDS: Torsemide 20 MG TAB 40 MG PO (08:31)
[2023-01-20] MEDS: Enoxaparin 30 MG/0.3 ML SYR SC ×2 (08:31→20:14)
[2023-01-20] MEDS: Metoprolol CR 25 MG TABCR PO (08:31)
[2023-01-20] MEDS: Insulin Aspart 300 UNITS/3 ML PEN SC ×4 (08:31→11:56)
[2023-01-20] MEDS: Budesonide/Formoterol 80/4.5 6.9 GM 60 PUFF INH IH ×2 (09:05→19:28)
--- NOTE | 2023-01-20 09:14 | W.PM.DS.N ---
Date of service: 01/23/23 Time of Service: 16:46 DS: Diagnosis Discharge Diagnosis (1) Surgical wound infection: Status: Acute (2) Surgical wound dehiscence: Status: Acute (3) Closed fracture of shaft of right tibia and fibula: Status: Acute (4) Type 2 diabetes mellitus: Status: Chronic (5) Diabetic peripheral neuropathy: Status: Acute (6) PTSD (post-traumatic stress disorder): Status: Chronic (7) Obstructive sleep apnea: Status: Chronic (8) Ischemic cardiomyopathy: Status: Chronic (9) Opioid dependence: Status: Chronic (10) Right leg pain: Status: Acute Discharge Plan Disposition Patient Disposition: Swing Bed(Skilled,SB1) Condition: Good Discharge Details Reason For Visit: Right Surgical Wound Infection Admit Date/Time: 01/17/23 17:24 Admit Provider: Stevenson Wisdom Attending Provider: Stevenson Wisdom [facility]: Patient was admitted to the medical/surgical floor following the procedure. The surgery was tolerated well without any notable medical, surgical, or anesthetic complications. There was concern for DVT based on patient's pain levels - underwent POCUS examination by Dr. Romero on 01/19/2023 which was inconclusive; patient then underwent formal ultrasound studies which were negative for DVT. Patient has reported history of chest discomfort with negative work-up including troponins, EKG as well as 24 hours of telementry. Patient reported blood while wiping following urination - had UA which showed trace blood. Reported abdominal discomfort with u/s showing hepatomegaly as well as fatty infilitation of the liver. Mobilization began postoperatively. She was voiding spontaneously. Vitals were stable. Pain was controlled on oral regimen - received IV hydromorphone today for wound vac dressing change. Home Meds and New Rx's Prescriptions: No Action gabapentin 600 mg tablet PO TID Rx Instructions: 600 mg PO q am and at noon; 1200 mg PO Qpm levetiracetam 1,000 mg tablet 1,000 mg PO Q12H Qty: 60 5RF ibuprofen 600 mg tablet 600 mg PO TID PRN (Reason: pain) Qty: 30 0RF cyclobenzaprine 10 mg tablet 10 mg PO TID PRN (Reason: muscle spasm) Qty: 20 0RF clindamycin HCl 150 mg capsule 450 mg PO TID Qty: 63 0RF Rx Instructions: take 3 tablets by mouth three times per day until gone atorvastatin [Lipitor] 80 mg tablet 80 mg PO DAILY clopidogrel [Plavix] 75 mg tablet 75 mg PO DAILY Tresiba FlexTouch U-200 200 unit/mL (3 mL) insulin pen 120 unit subcut DAILY magnesium oxide [MagOx] 400 mg (241.3 mg magnesium) tablet 400 mg PO BID nitroglycerin [Nitrostat] 0.4 mg tablet, sublingual 0.4 mg sublingual Q5M PRN Rx Instructions: do not exceed 3 doses per episode albuterol sulfate 2.5 mg /3 mL (0.083 %) solution for nebulization 2.5 mg inhalation Q6H PRN Rx Instructions: not started yet insulin lispro [Humalog KwikPen Insulin] 100 unit/mL insulin pen subcut AC & HS PRN Rx Instructions: Per sliding scale pt doesnt have directions ferrous sulfate 325 mg (65 mg iron) tablet,delayed release (DR/EC) 325 mg PO BID cefadroxil 500 mg capsule 500 mg PO BID Qty: 28 0RF carvedilol 3.125 mg Tablet 3.125 mg PO BID Qty: 60 0RF pantoprazole [Protonix] 40 mg tablet,delayed release (DR/EC) 40 mg PO BID Qty: 60 0RF Victoza 3-Tanmay 0.6 mg/0.1 mL (18 mg/3 mL) pen injector 1.8 mg SUBCUT DAILY Qty: 0 0RF Patient Comments: INJECT 0.6 MG UNDER THE SKIN ONCE DAILY TITRATE UP TOLERATED TO 1.2 MG DAILY, THEN MAINTAINANCE AT 1.8 MG DAILY naloxone [Narcan] 4 mg/actuation spray,non-aerosol 4 mg intranasal Q2-3M PRNQty: 2 0RF Rx Instructions: spray 1 dose into ONE nostril; alternate nostrils w each dose until help arrives acetaminophen [Tylenol Ex Str Arthritis Pain] 500 mg Tablet 1,000 mg PO TID methadone 10 mg/5 mL Solution 130 mg PO DAILY Rx Instructions: [facility] [phone] [id number] opens 6087 carboxymethylcellulose sodium [Refresh Plus] 0.5 % Dropperette 1 drp OU QID Qty: 50 0RF Rx Instructions: PRN potassium chloride 10 mEq capsule, extended release 10 meq PO DAILY Patient Comments: TAKE ONE CAPSULE BY MOUTH EVERY DAY torsemide 20 mg tablet 20 mg PO BID Patient Comments: TAKE ONE TABLET BY MOUTH EVERY DAY cetirizine [Zyrtec] 10 mg tablet 10 mg PO DAILY Patient Comments: TAKE ONE TABLET BY MOUTH EVERY DAY NEEDED aspirin [Adult Low Dose Aspirin] 81 mg tablet,delayed release (DR/EC) 81 mg PO DAILY Patient Comments: TAKE ONE TABLET BY MOUTH EVERY DAY citalopram [Celexa] 20 mg tablet 20 mg PO DAILY Patient Comments: TAKE ONE TABLET BY MOUTH EVERY DAY benzonatate 100 mg capsule 100 mg PO TID PRN PRN (Reason: Cough) Patient Comments: TAKE ONE CAPSULE BY MOUTH THREE TIMES A DAY NEEDED folic acid 1 mg tablet 1 mg PO DAILY Patient Comments: TAKE ONE TABLET BY MOUTH EVERY DAY albuterol sulfate [ProAir HFA] 90 mcg/actuation HFA aerosol inhaler 2 inh INHALATION Q3H PRN PRN (Reason: Shortness Of Breath Or Wheezing) Patient Comments: INHALE TWO PUFFS BY MOUTH EVERY 3 HOURS NEEDED colchicine [Colcrys] 0.6 mg tablet 0.6 mg PO BID Patient Comments: TAKE ONE TABLET BY MOUTH TWICE A DAY fluticasone propion-salmeterol [Advair HFA] 45-21 mcg/actuation HFA aerosol inhaler 2 inh INHALATION BID Patient Comments: INHALE TWO PUFFS BY MOUTH TWICE A DAY Jardiance 10 mg tablet 10 mg PO DAILY Patient Comments: TAKE ONE TABLET BY MOUTH EVERY DAY baclofen 10 mg tablet 10 mg PO TID PRNQty: 30 0RF Discharge Instructions Additional Instructions: Will continue with wound vac changes three times weekly Will continue with Bactrim DS - 2 tablets BID for 14 day course Will continue with hydromorphone 4 mg and IV 1 mg for dressing changes Referrals: Stevenson Wisdom MD [ [facility] STAFF PHYSICIAN] - Activity:: Activity as Tolerated Equipment/Supplies:: wound vac Diet:: As Tolerated Discharge Orders Discharge Orders: Discharge Order (Routine); Ordered 01/23/23 Ordered By: Maryann Garcia Discharge Data Discharge Date/Time-TO BE ENTERED AT DEPARTURE: 01/23/23 18:02 DS: Summary Time Spent with Patient providing and/or coordinating discharge services: Greater than 30 minutes Status at Discharge Functional status at discharge: independent ambulation Overall status at discharge: patient is progressing back to baseline Mental Status: mental status grossly normal Speech and Movement: speech and movement normal Mood: congruent mood Affect: normal affect Exam Const General: cooperative and no acute distress Resp Effort & Inspection: normal respiratory effort and able to speak in complete sentences Extrem Other: Brief examination of right lower extremity: Wound VAC is in place with intact and dry dressing. Skin about lower leg is intact without significant signs of erythema or calor. Less edema is noted today compared to contralateral side. Patient is able to demonstrate toe flexion and extension without issue. Patient is moves her foot and toes without discomfort when talking with provider. No drainage is noted in wound vac tubing at time of visit. Throughout visit with provider patient is noted to be moving her hip as well as demonstrating more significant knee range of motion today without signs of visual discomfort. Once wound vac was removed the wound was measured to be ~6 cm x 2.5 cm at maximum height with 0.6 cm of depth. Edges of wound were without significant signs of erythema and no signs of purulent discharge were noted. Wound bed had granulation tissue without signs of significant fibrous tissue or purulent discharge. Psych Mental Status: mental status grossly normal Speech and Movement: speech and movement normal Mood: congruent mood Affect: normal affect DS: Data Vitals/I&O Vitals and I&O: Vital Signs Temperature 97.2 F L 01/20/23 07:26 Temperature Source Tympanic 01/20/23 07:26 Pulse 74 01/20/23 07:26 Pulse Rhythm Regular 01/20/23 08:42 Respiratory Rate 18 01/20/23 07:26 Respiratory Effort Normal, Non-Labored 01/20/23 08:42 Respiratory Depth Normal 01/20/23 08:42 Respiratory Pattern Normal 01/20/23 08:42 Blood Pressure 114/73 01/20/23 07:26 Blood Pressure Position Sitting 01/17/23 16:24 Pulse Oximetry 96 01/20/23 07:26 Respiratory End-tidal CO2 47 01/18/23 15:45 Oxygen Delivery Method Nasal Cannula 01/20/23 07:26 Oxygen Flow Rate 0 01/20/23 07:26 Pain Level 8 01/19/23 21:24 Intake & Output 01/19/23 01/19/23 01/20/23 11:59 23:59 11:59 Intake Total 850 / 2600 1750 / 2600 1250 / 1250 Output Total 1450 / 7000 5550 / 7000 100 / 100 Balance -600 / -4400 -3800 / -4400 1150 / 1150 Intake: IV 200 / 400 200 / 400 Oral 650 / 2200 1550 / 2200 1250 / 1250 Output: Urine 1450 / 6850 5400 / 6850 100 / 100 Emesis 150 / 150 Other: Urine Color Yellow Yellow Pale Urine Appearance Clear Clear Clear Urine Odor None Emesis Description Retching Voiding Methods Bedside Commode Bedside Commode Data Completed and Pending Labs on day of discharge: 01/18/23 14:00 Knee - Right Anaerobic Culture - Pending 01/18/23 14:10 Knee - Right Anaerobic Culture - Pending 01/17/23 17:57 Knee - Right Anaerobic Culture - Pending Preliminary micro results at discharge 01/18/23 14:00 Body Fluid Culture - Preliminary Synovial - Right 01/17/23 17:35 Blood Culture - Preliminary Blood NO GROWTH 48 HOURS 01/17/23 17:15 Blood Culture - Preliminary Blood NO GROWTH 48 HOURS 01/18/23 14:10 Wound Culture - Preliminary Knee - Right Gram Negative Krishna Gram Positive Gabriella,Mixed 01/17/23 17:11 Wound Culture - Preliminary Knee - Right Enterobacter Cloacae Complex Gram Positive Gabriella,Mixed 01/18/23 14:00 Anaerobic Culture - Pending Knee - Right 01/18/23 14:10 Anaerobic Culture - Pending Knee - Right 01/17/23 17:57 Anaerobic Culture - Pending Knee - Right PFSH All Active Problems (Updated 01/24/23 @ 00:05 by KELLEY PHELPS) Discharge planning issues (Acute) DVT prophylaxis (Acute) Right leg pain (Acute) Surgical wound infection (Acute) Surgical wound dehiscence (Acute) Fatigue (Acute) Polypharmacy (Acute) Fracture of tibial shaft, right, closed (Acute) Cellulitis of right leg (Acute) Opioid dependence (Chronic) Recurrent episodes of unresponsiveness (Acute) Syncope (Chronic) Closed fracture of right fibula and tibia (Acute) Closed fracture of shaft of right tibia and fibula (Acute 11/23/22) s/p IMN of Right Tibia - 11/24/22 QT prolongation (Chronic) Nonspecific paroxysmal spell (Acute) Episode of unresponsiveness (Acute) Chronic systolic CHF (congestive heart failure) (Chronic) Ischemic cardiomyopathy (Chronic) Obstructive sleep apnea (Chronic) Hallucinations (Acute) Chronic respiratory failure with hypoxia (Chronic) Fracture of finger, left (Acute) Syncopal episodes (Chronic) Observed seizure-like activity (Acute) Opioid dependence on agonist therapy (Acute) Leg wound, left (Acute) Facial palsy (Acute) Pulmonary HTN (Acute) Heart failure (Acute) 09/02/21 with IL low EF Vertigo (Acute) GERD (gastroesophageal reflux disease) (Chronic) Essential hypertension (Acute) Asthma (Chronic) Depression (Chronic) PTSD (post-traumatic stress disorder) (Chronic) Tobacco abuse disorder (Acute) Hypokalemia (Acute) Chronic gout (Acute) Hyperlipidemia (Acute) Diabetic peripheral neuropathy (Acute) Type 2 diabetes mellitus (Chronic) Medical History (Updated 01/24/23 @ 00:05 by KELLEY PHELPS) COVID was vaccinated but contracted Covid 06/22 History of gastrointestinal ulcer Non-STEMI (non-ST elevated myocardial infarction) 09/02/21 Surgical History H/O bone graft left knee H/O shoulder surgery x4 and ending with a full replacement H/O total hysterectomy History of appendectomy History of colonoscopy History of esophagogastroduodenoscopy (EGD) gastritis with gastric ulcers Previous section x4 delivery Family History Mother Cancer Heart disease Obstructive lung disease Depression Arthritis Degeneration of intervertebral disc Father Alcohol use disorder Brother Hypertension Mood disorder Maternal Grandfather Alcohol use disorder Maternal Grandmother Breast cancer Maternal Aunt Breast cancer Paternal Aunt Breast cancer Social History Smoking/Tobacco Use Status: Current every day Tobacco Type: cigarettes Tobacco: How many years used: 34 Smoking risk assessment performed?: Yes Alcohol Intake: current Alcohol Intake frequency: holidays/special occasions only Alcohol type: beer Drug use: Never Substance use type: does not use Do you feel safe at home: Yes Do you feel safe in your relationship?: Yes Time Spent with Patient Time Spent with Patient: 45-69 minutes Time was spent: preparing to see the patient(eg.review tests), obtaining and/or reviewing separately otained hiistory, referring, communicating with other health medicare contact specialist, indepentently interpreting results, counseling the patient and care coordination
[2023-01-20] MEDS: Methadone Liquid 10 MG/ML 130 MG PO (09:44)
[2023-01-20] MEDS: HYDROmorphone 2 MG/ML SYR 1 MG IVP ×2 (09:44→13:25)
[2023-01-20 11:49] VITALS: BP 116/74; PULSE 90; RESP 20; TEMP 37.1; O2SAT 96
--- NOTE | 2023-01-20 12:09 | W.PM.PROGNOT ---
Date of Service Date of service: 01/20/23 Time of Service: 12:49 Assessment and Plan Assessment and plan (1) Surgical wound infection: Status: Acute (2) Surgical wound dehiscence: Status: Acute (3) Closed fracture of shaft of right tibia and fibula: Status: Acute Assessment and plan: Plan: Ms. Monique is a 47-year-old female who is post-op day 2 status post I&D of right lateral knee wound with wound vac placement on 01/18/23; she is status post right IM fixation of right tibia fracture on 11/24/22. Patient has been switched off of oral oxycodone. Working on transferring to oral hydromorphone - was given one dose of 1 mg IV prior to wound vac change. Inpatient wound vac system was removed. Wound was assessed and new wound vac dressing was applied by provider with Kimberly Lee RN and Eros Jefferson PA-C. Wound vac was set to pressure 125. Will continue with dressing changes three times weekly. Reviewed medicine notes by Dr. Romero - negative DVT work up on 01/19/[address] Baeza in detail. Based on her cultures and sensitivities paired with her allergies and methadone working with hospitalist service for antibiotic recommendations in effort to transfer to PO from IV antibiotics Will hope to discharge when cleared by hospitalist team and when able to transfer to oral antibiotics - may require transfer to swing bed status pending antibiotic options Subjective Subjective Interval history since last seen: Ms. Monique is a 47-year-old female who is 2 day status post I&D of right lateral knee wound with wound vac placement on 01/18/23; she is status post right IM fixation of right tibia fracture on 11/24/22. Continues to report significant discomfort about the entire right lower extremity extending from her thigh to her goddard and ankle. Pain is a constant sensation that is aggravated with movement and massage. Has stopped oral oxycodone and has been transitioning from IV to oral hydromorphone and her baseline methadone. Denies fevers or chills. Denies injuries. She reports no current housing available - reports her son has kicked her out. Reports significant concern about having dressing change completed - had hydromorphone ~1 hour prior to provider arriving for dressing change. Exam Const General: cooperative and no acute distress Resp Effort & Inspection: normal respiratory effort and able to speak in complete sentences Extrem Other: Brief examination of right lower extremity: Wound VAC is in place with intact and dry dressing. Skin about lower leg is intact without significant signs of erythema, edema or calor. Patient is able to demonstrate toe flexion and extension without issue. Patient is able to demonstrate gentle ankle range of motion without discomfort when provider was removing sock. Once wound vac was removed the wound was measured to be ~6 cm x 2.5 cm at maximum height with 0.5 cm of depth. Edges of wound were without significant signs of erythema and no signs of purulent discharge were noted. Wound bed had granulation tissue without signs of significant fibrous tissue or purulent discharge. Objective Last Vital Signs Temp 98.8 F 01/20/23 11:49 Pulse 90 01/20/23 11:49 Resp 20 01/20/23 11:49 BP 116/74 01/20/23 11:49 Pulse Ox 96 01/20/23 11:49 Time Spent with Patient Time Spent with Patient: 25-34 minutes Time was spent: obtaining and/or reviewing separately otained hiistory, ordering medications,tests, procedures, referring, communicating with other health childbirth and infant care teacher and counseling the patient
[2023-01-20] MEDS: Lidocaine 2% Multi-Dose 20 ML VIAL (12:10)
--- NOTE | 2023-01-20 12:15 | RT.EKG_ITS ---
APPROVED REPORT Exam: Resting ECG Reason for Exam: chest pain Patient Location: I HR:87 bpm ECG Measurements Heart Rate 87 AXIS [place] 158 P 29 QRSd 98 QRS 55 QT 427 T 83 QTc 514 Conclusion Sinus rhythm...normal P axis, V-rate 50- 99 Anteroseptal infarct, old...Q >40mS, V1-V2 Prolonged QT interval...QTc >510mS
--- NOTE | 2023-01-20 12:19 | PGE_ITS ---
Date of Service Date of service: 01/20/23 Time of Service: 10:50 Assessment and Plan Assessment and plan (1) Surgical wound infection: Status: Acute Assessment and plan: s/p I&D of her right tibial wound on 01/18/23. Wound vac now replaced with an outpatient versio. Continue empiric vancomycin/cefepime. Wound cx with GNR, Staph aureus and an enterococcus species. Will await further speciation on GNR and sensitivities on staph aureus and enterocuccus prior to making any recommendations for abx change. Continue cefepime and vancomycin for now. Continue to trend CRP. may require ID consult. Discussed with ortho Pennie Cooney and Maryann as well as with Dr Wisdom. (2) Right leg pain: Status: Acute Assessment and plan: Venous doppler negative. Suspect this is expected post-surgical edema. (3) Surgical wound dehiscence: Status: Acute Assessment and plan: as above (4) Closed fracture of shaft of right tibia and fibula: Status: Acute Assessment and plan: Last XR 12/16/22 and showed stability in herfibular fx; her proximal tibia has an intramedullary blair. Ortho is following - defer to primary team. (5) Ischemic cardiomyopathy: Status: Chronic Assessment and plan: CP today - placed on tele. No ACS by troponins of EKG. Will monitor on tele overnight. I expect that there is an anxiety component to this and will trial lorazepam prn. (6) Type 2 diabetes mellitus: Status: Chronic Assessment and plan: Continue current management. (7) Diabetic peripheral neuropathy: Status: Acute Assessment and plan: Continue current doses of gabapentin. (8) PTSD (post-traumatic stress disorder): Status: Chronic Assessment and plan: With episodes of anxiety. Will give prn lorazepam. (9) Opioid dependence: Status: Chronic Assessment and plan: continuemethadone 130 mg daily She is also written for prn oxycodone 5 mg po q4h prn pain and hydromorphone 1 mg iv q1h prn pain in addition to ketorolac 15 mg iv q6hr (10) Obstructive sleep apnea: Status: Chronic Assessment and plan: Continue supplemental O2 (11) DVT prophylaxis: Status: Acute Assessment and plan: Continue SC enoxaparin (Discussing dose with pharmacy) (12) Discharge planning issues: Status: Acute Assessment and plan: Full code I have spoken with care management about the patient reporting not having a place to go home to. Disposition may also depend on antibiotic recommendations - will await culture information and discuss with ID when this is available. Subjective Subjective Interval history since last seen: December reports pain in her right knee. She otherwise also reports stabbing L-sided chest pains occasionally from stress. She has had a few episodes of this today and didn't tell anyone. She denies dizziness, chest pain now, shortness of breath, nausea. She is very concerned about not having a place to go to and requests to talk to care management. Exam Narrative Exam Narrative: General: Pleasant middle-aged female who is uncomfortable, A&OX3, NAD HEENT: EOMI, MMM Heart: RRR, no m/r/g Lungs: CTAB Abdomen: soft, nontender, nondistended Extremities: RLE: knee with wound vac; inferior portion of the leg with greenish discoloration c/w old hematoma, RLE>LLE edema Objective Last Vital Signs Temp 37.1 C 01/20/23 11:49 Pulse 90 01/20/23 11:49 Resp 20 01/20/23 11:49 BP 116/74 01/20/23 11:49 Pulse Ox 96 01/20/23 11:49 Time Spent with Patient Time Spent with Patient: 35-49 minutes Time was spent: preparing to see the patient(eg.review tests), obtaining and/or reviewing separately otained hiistory, ordering medications,tests, procedures, referring, communicating with other health child care specialist, indepentently interpreting results, counseling the patient and care coordination
[2023-01-20 13:18] LABS: Troponin I < 50 ng/L (<or=60)
[2023-01-20 13:54] VITALS: PULSE 91
[2023-01-20 16:03] VITALS: BP 98/67; PULSE 88; RESP 16; TEMP 36.7; O2SAT 96
--- NOTE | 2023-01-20 16:19 | PDOC.CMPRO ---
- If Service Date Differs Date of service: 01/20/23 Time of Service: 16:19 Care Management Progress Note S/O: Aracelis was sitting on her bed when CM met with her; she reviewed current life stressors including interpersonal, medical, financial. Reviewed psychosocial issues, barriers, challenges; CM provided strength-based motivational interview with holding environment for processing and validation. Challenged negative self talk I'm a piece of shit I lost my kids, offered coping mechanisms-mantra I'm okay right now, I'm okay for this minute, psycho-education central to impact of stress on medical status. Aracelis engaged well, CM provided tissues, framework for goal settin. Aracelis will engage with [facility] and CM staff to determine resources for disposition (dependent on medical status and service needs) anticipate . Aracelis reports not utilizing either service prior. 2. CM to recommend anti-anxiety medication order from . Completed. Communicated Aracelis does not want Klonopin as she reports it has caused memory lapses in the past. 3. Anticipate Aracelis will remain at [facility] over the weekend: goal to focus on improving medically with plan to resume disposition planning on Monday. Utilize mantra. Breathing for coping mechanisms. A: 47 year old female admitted to [facility] 01/17/23 for Right surgical wound infection P: ID Consult to inform ABX course which will determine discharge planning. Aracelis will resume home O2. Wound vac ( P#[phone], Case # [id number]; notify when discharging and which Home Health Agency will be supporting) placed as well with 3x/wk dressing changes required at this time ([facility] RN). [facility] referral for housing support (). CM continues to follow.
[2023-01-20] MEDS: Ondansetron 4 MG/2 ML VIAL IVP (17:17)
[2023-01-20 19:20] VITALS: BP 96/62; PULSE 75; RESP 18; TEMP 36.8; O2SAT 94
[2023-01-20] MEDS: Gabapentin 600 MG TAB 1200 MG PO (20:12)
[2023-01-20] MEDS: LORazepam 0.5 MG TAB PO (20:12)
[2023-01-20] MEDS: VANCOMYCIN/WATER (PEG) 1.5 GM/300 ML BAG IVPB (20:14)
[2023-01-20] MEDS: Atorvastatin 40 MG TAB 80 MG PO (20:15)
[2023-01-20 23:12] VITALS: BP 98/59; PULSE 79; RESP 18; TEMP 36.5; O2SAT 94
[2023-01-21] VITALS (10 sets, daily range): BP systolic 86–118; BP diastolic 56–76; PULSE 75–97; RESP 18–20; TEMP 36.3–36.6; O2SAT 92–97
[2023-01-21] MEDS: Ketorolac 15 MG/ML VIAL IVP ×4 (01:15→17:53)
[2023-01-21] MEDS: Nicotine 21 MG/24 HR PATCH TD ×2 (01:16→18:16)
[2023-01-21] MEDS: HYDROmorphone 4 MG TAB PO ×5 (03:15→20:18)
[2023-01-21] MEDS: LORazepam 0.5 MG TAB PO ×3 (03:15→20:18)
[2023-01-21] MEDS: CEFEPIME 2 GM in Normal Saline 100 ML IVPB ×3 (06:21→23:28)
[2023-01-21 06:57] LABS: Abs Immature Grans 0.02 10^3/uL (0.0-0.06); Absolute Basophil Count 0.04 10^3/uL (0.0-0.2); Absolute Eosinophil Count 0.67 10^3/uL (0.0-0.7); Absolute Lymphocyte Count 3.13 10^3/uL (1.2-3.4); Absolute Monocyte Count 0.85 10^3/uL (0.1-0.8); Absolute Neutrophil Count 4.33 10^3/uL (1.2-6.7); Basophils % 0.4; Eosinophils % 7.4; HCT 39.5 % (36.0-46.0); Immature Grans % 0.2; Lymphocytes % 34.6; MCH 28.8 pg (27.0-33.0); MCHC 32.9 % (32.0-36.0); MCV 87 fL (80-95); MPV 10.1 fL (8.0-11.0); Monocytes % 9.4; Platelet Count 318 10^3/uL (130-400); RBC 4.52 10^6/uL (3.93-5.22); RDW 14.6 % (11.7-14.6); RDW-SD 46.7 fL; WBC 9.04 10^3/uL (4.4-10.8)
[2023-01-21 07:18] LABS: Anion Gap 5.5 mmol/L (3-11); BUN 30 mg/dL (7-18); CO2 28.5 mmol/L (21.0-32.0); Chloride 105 mmol/L (98-107); Estimated GFR 69.93 (mL/min/1.73m2); Glucose 165 mg/dL (74-106); Magnesium 2.4 mg/dL (1.8-2.4); Potassium 4.4 mmol/L (3.5-5.1); Sodium 139 mmol/L (136-145)
[2023-01-21] MEDS: Budesonide/Formoterol 80/4.5 6.9 GM 60 PUFF INH IH ×2 (07:41→19:26)
[2023-01-21 07:54] LABS: Procalcitonin < 0.1 ng/mL
[2023-01-21] MEDS: Potassium Chloride 20 MEQ TABCR PO ×3 (08:01→20:18)
[2023-01-21] MEDS: Acetaminophen 325 MG TAB 975 MG PO ×3 (08:01→20:18)
[2023-01-21] MEDS: Pantoprazole 40 MG TABCR PO ×2 (08:01→20:19)
[2023-01-21] MEDS: Magnesium Oxide 400 MG TAB PO ×2 (08:01→20:18)
[2023-01-21] MEDS: Citalopram 20 MG TAB PO (08:02)
[2023-01-21] MEDS: Clopidogrel 75 MG TAB PO (08:02)
[2023-01-21] MEDS: Carvedilol 3.125 MG TAB PO (08:02)
[2023-01-21] MEDS: Folic Acid 1 MG TAB PO (08:02)
[2023-01-21] MEDS: Torsemide 20 MG TAB 40 MG PO (08:02)
[2023-01-21] MEDS: Baclofen 10 MG TAB PO ×3 (08:02→20:18)
[2023-01-21] MEDS: Metoprolol CR 25 MG TABCR PO (08:02)
[2023-01-21] MEDS: Gabapentin 600 MG TAB PO ×2 (08:02→11:38)
[2023-01-21] MEDS: Empaglifozin 10 MG TAB PO (08:02)
[2023-01-21] MEDS: levETIRAcetam 500 MG TAB 1000 MG PO ×2 (08:02→20:18)
[2023-01-21] MEDS: Enoxaparin 30 MG/0.3 ML SYR SC ×2 (08:03→20:22)
[2023-01-21] MEDS: Aspirin E.C. 81 MG TABEC PO (08:03)
[2023-01-21] MEDS: Insulin Aspart 300 UNITS/3 ML PEN SC ×5 (08:05→16:59)
[2023-01-21] MEDS: Methadone Liquid 10 MG/ML 130 MG PO (08:13)
[2023-01-21] MEDS: Ondansetron 4 MG/2 ML VIAL IVP ×2 (10:02→16:58)
--- NOTE | 2023-01-21 12:48 | W.PM.PROGNOT ---
Date of Service Date of service: 01/21/23 Time of Service: 13:05 Assessment and Plan Assessment and plan (1) Surgical wound infection: Status: Acute (2) Surgical wound dehiscence: Status: Acute (3) Closed fracture of shaft of right tibia and fibula: Status: Acute Assessment and plan: Plan: Ms. Monique is a 47-year-old female who is post-op day 3 status post I&D of right lateral knee wound with wound vac placement on 01/18/23; she is status post right IM fixation of right tibia fracture on 11/24/22. Had extensive conversation with patient regarding need to continue with primarily oral narcotics. Patient does continue to have an order for IV hydromorphone only as needed. Stressed the importance of patient continue to be careful in bed to avoid excellently striking her right knee along bedside table - although this incident may cause increased discomfort she should be able to manage with oral hydromorphone up to every 4 hours as needed. After conversation patient understands importance of limiting IV narcotic use. Educated patient new numbness could be due to swelling; she is then also concerned about a vein along the anterior quad which appears to be swelling related. Patient is also demonstrating muscle guarding and active contraction with examination which is likely playing a role in discomfort and muscle cramping. Recommend trying to relax muscles as much as possible and can support leg with pillows to aide. Reviewed notes from care management team yesterday - working on housing. Wound VAC system is working well and dressing is intact without issue. We will continue with dressing changes 3 times weekly. Reviewed medicine notes by Dr. Baeza-patient underwent cardiac work-up including EKG and troponins which were negative. Patient was also placed on telemetry. Based on patient's symptoms Dr. Baeza also started lorazepam which has been helpful with muscle spasms and overall anxiety. Today patient reports antibiotics cause her to suffer from bleeding ulcers and result in ascitic diarrhea. Patient is unable to report which specific antibiotics caused the symptoms. Additionally states she has unknown allergy to penicillin as a infant but she believes that she has previously had medications similar to penicillins without issues previously. This was also discussed with hospitalist team. CRP from today was 0.8H compared to previous CRP on 01/19/2023 which was 1.16H. Discussed case with Dr. Baeza in detail - we will continue with lorazepam as needed; patient is on baclofen but will make scheduled dosing. Based on her cultures and sensitivities paired with her allergies and methadone working with hospitalist service for antibiotic recommendations in effort to transfer to PO from IV antibiotics. Dr. Baeza has plans to discuss oral antibiotic options with I&D later today. Will hope to discharge when cleared by hospitalist team and when able to transfer to oral antibiotics - may require transfer to swing bed status pending antibiotic options. Patient will likely stay as inpatient for next few days Subjective Subjective Interval history since last seen: Ms. Monique is a 47-year-old female who is post op day 3 status post I&D of right lateral knee wound with wound vac placement on 01/18/23; she is status post right IM fixation of right tibia fracture on 11/24/22. Continues to report significant discomfort about the entire right lower extremity extending from her thigh to her goddard and ankle. Pain is a constant sensation that is aggravated with movement - today she does describe pain as more of a charley horse pain that has been mildly reduced with ativan. Reports numbness along the anterior and medial thigh that is a constant sensation - has more diffuse numbness as her baseline neuropathy. Continues to be managed on oral hydromorphone - is questioning availability of IV hydromorphone since she has striked her knee several times and would like to have IV pain medication more available for these situations. She has continued with baseline methadone. Denies fevers or chills. She reports seeing care management yesterday - working on housing. She does not have chest pain at time of visit today - reported symptoms to hospitalist yesterday and had work-up completed. Exam Const General: cooperative and no acute distress Resp Effort & Inspection: normal respiratory effort and able to speak in complete sentences Extrem Other: Brief examination of right lower extremity: Wound VAC is in place with intact and dry dressing. Skin about lower leg is intact without significant signs of erythema or calor. There is mild edema noted diffusely along the lower extremity compared to her contralateral side. Patient is able to demonstrate toe flexion and extension without issue - reports discomfort today. Patient is able to demonstrate gentle ankle range of motion with discomfort noted = she is able to move her foot and toes without discomfort when talking with provider. Wound vac is in place - dressing is dry and intact. No drainage is noted in wound vac tubing at time of visit. Objective Last Vital Signs Temp 97.9 F 01/21/23 07:56 Pulse 95 H 01/21/23 09:07 Resp 18 01/21/23 07:56 BP 94/56 L 01/21/23 07:56 Pulse Ox 96 01/21/23 07:56 Laboratory Results - last 24 hr 01/20/23 01/21/23 01/21/23 12:52 06:23 06:23 WBC RBC Hgb Hct MCV MCH MCHC RDW Plt Count MPV Immature Gran % Neutrophils % Lymphocytes % Monocytes % Eosinophils % Basophils % Nucleated RBC % Absolute Neutrophils Absolute Lymphocytes Absolute Monocytes Absolute Eosinophils Absolute Basophils Sodium 139 Potassium 4.4 Chloride 105 Carbon Dioxide 28.5 Anion Gap 5.5 BUN 30 H Creatinine 1.0 Est GFR (CKD-EPI 2020) 69.93 Glucose 165 H Calcium 9.0 Magnesium 2.4 Troponin I < 50 C-Reactive Protein 0.80 H Procalcitonin < 0.1 01/21/23 06:23 WBC 9.04 RBC 4.52 Hgb 13.0 Hct 39.5 MCV 87 MCH 28.8 MCHC 32.9 RDW 14.6 Plt Count 318 MPV 10.1 Immature Gran % 0.2 Neutrophils % 48.0 Lymphocytes % 34.6 Monocytes % 9.4 Eosinophils % 7.4 Basophils % 0.4 Nucleated RBC % 0.0 Absolute Neutrophils 4.33 Absolute Lymphocytes 3.13 Absolute Monocytes 0.85 H Absolute Eosinophils 0.67 Absolute Basophils 0.04 Sodium Potassium Chloride Carbon Dioxide Anion Gap BUN Creatinine Est GFR (CKD-EPI 2020) Glucose Calcium Magnesium Troponin I C-Reactive Protein Procalcitonin Time Spent with Patient Time Spent with Patient: 25-34 minutes Time was spent: ordering medications,tests, procedures, referring, communicating with other health youth career specialist and counseling the patient
--- NOTE | 2023-01-21 13:20 | NUR.NOTE ---
Addendum entered by Kenisha Rankin RN 01/21/23 13:48: At approximately 1320 after placing IV patient began to shake, and eyes were fixated on the wall. Patient then snapped out of staring at wall. Stated, I'm tired. Vital signs taken and stable. Patient seen shortly after raising legs above head and stretching, eating yogurt, and ordering breakfast for the morning. However, when staff enter room patient quickly returns to resting in bed and stating she is tired. Charge nurse, Jessica Sorenson made aware of patient's behavior. Original Note: Nursing Note:
--- NOTE | 2023-01-21 17:23 | NUR.NOTE ---
After giving 1600 dose of PO dilaudid patient noted to have placed pill in mouth and took sip of water. However, shortly after she appeared to have removed pill from mouth. Patient confronted about pill. She then stated the pill had gotten stuck in her teeth. Patient seen taking pill again and swallowing. Dr. Baeza made aware of patient's behavior. Nursing Note:
--- NOTE | 2023-01-21 17:34 | PGE_ITS ---
Date of Service Date of service: 01/21/23 Time of Service: 17:34 Assessment and Plan Assessment and plan (1) Surgical wound infection: Status: Acute Assessment and plan: s/p I&D of her right tibial wound on 01/18/23. s/p wound vac. Continue empiric vancomycin/cefepime. Awaiting call back from [facility]. Wound cx w/ MSSA, enterobacter, enterococcus. Cipro interacts with methadone but is the only single antibiotic to cover all three agents. The patient states she has a hard time tolerating nearly all oral abx. Continue cefepime and vancomycin for now. Continue to trend CRP. Discussed with rajinder Cronin PA. (2) Right leg pain: Status: Acute Assessment and plan: Venous doppler negative. Suspect this is expected post-surgical edema. (3) Surgical wound dehiscence: Status: Acute Assessment and plan: as above (4) Closed fracture of shaft of right tibia and fibula: Status: Acute Assessment and plan: Last XR 12/16/22 and showed stability in herfibular fx; her proximal tibia has an intramedullary blair. Ortho is following - defer to primary team. (5) Ischemic cardiomyopathy: Status: Chronic Assessment and plan: No ACS. Tele d/c'ed. Some of this could have been true cardiac pain and will need outpatient follow up; however, I think that this is more likely to be anxiety. Continue prn lorazepam. (6) Type 2 diabetes mellitus: Status: Chronic Assessment and plan: Continue current management. (7) Diabetic peripheral neuropathy: Status: Acute Assessment and plan: Continue current doses of gabapentin. (8) PTSD (post-traumatic stress disorder): Status: Chronic Assessment and plan: With episodes of anxiety. Continue prn lorazepam. (9) Opioid dependence: Status: Chronic Assessment and plan: continue methadone 130 mg daily She is also written for prn po and iv dilaudid q1h prn pain in addition to ketorolac 15 mg iv q6hr (10) Obstructive sleep apnea: Status: Chronic Assessment and plan: Continue supplemental O2 (11) DVT prophylaxis: Status: Acute Assessment and plan: Continue SC enoxaparin (Discussing dose with pharmacy) (12) Discharge planning issues: Status: Acute Assessment and plan: Full code I have spoken with care management about the patient reporting not having a place to go home to.] If ID recommends continued IV abx, would benefit from swinging. Will discuss with care management re referral to dentist and also re possibility of still keeping her MRI appointment next week. Subjective Subjective Interval history since last seen: December reports ongoing pain in her RLE. But that's what it is! She states that she has been nauseated. Had an episode of chest pain last night that she did not tell anyone about. I forgot and fell back asleep. She denies dizziness, shortness of breath. Reports she has a chronic cough productive of dark sputum. We discussed how she should stop smoking. She requests a nicotrol inhaler rather than a nicotine patch. She is anxious. She is worried her [cardiac] stents might be closing up. She is reporting being concerned about her teeth been broken and needing a dentist. She says her dilaudid pill got stuck in her broken tooth today. She reports wanting to be able to attend her MRI. We discussed the possibility of that if she is on swing bed. At this time, I am awaiting a call back from [facility] to discuss antibiotic choice. Exam Narrative Exam Narrative: General: Pleasant middle-aged female, anxious A&OX3, NAD HEENT: EOMI, MMM Heart: RRR, no m/r/g Lungs: CTAB Abdomen: soft, tender in RUQ when flexing abdominal muscles, nondistended Extremities: RLE: knee with wound vac; edema appears slightly less asymmetric Objective Last Vital Signs Temp 36.4 C L 01/21/23 14:57 Pulse 88 01/21/23 14:57 Resp 18 01/21/23 14:57 BP 97/62 L 01/21/23 14:57 Pulse Ox 97 01/21/23 14:57 Laboratory Results - last 24 hr 01/21/23 01/21/23 01/21/23 06:23 06:23 06:23 WBC 9.04 RBC 4.52 Hgb 13.0 Hct 39.5 MCV 87 MCH 28.8 MCHC 32.9 RDW 14.6 Plt Count 318 MPV 10.1 Immature Gran % 0.2 Neutrophils % 48.0 Lymphocytes % 34.6 Monocytes % 9.4 Eosinophils % 7.4 Basophils % 0.4 Nucleated RBC % 0.0 Absolute Neutrophils 4.33 Absolute Lymphocytes 3.13 Absolute Monocytes 0.85 H Absolute Eosinophils 0.67 Absolute Basophils 0.04 Sodium 139 Potassium 4.4 Chloride 105 Carbon Dioxide 28.5 Anion Gap 5.5 BUN 30 H Creatinine 1.0 Est GFR (CKD-EPI 2020) 69.93 Glucose 165 H Calcium 9.0 Magnesium 2.4 C-Reactive Protein 0.80 H Procalcitonin < 0.1 Time Spent with Patient Time Spent with Patient: 35-49 minutes Time was spent: preparing to see the patient(eg.review tests), obtaining and/or reviewing separately otained hiistory, ordering medications,tests, procedures, referring, communicating with other health healthcare economics manager, indepentently interpreting results, counseling the patient and care coordination
[2023-01-21] MEDS: Trimethobenzamide 200 MG/2 ML VIAL IM (17:53)
[2023-01-21] MEDS: guaiFENesin 600 MG TABCR PO (20:18)
[2023-01-21] MEDS: Gabapentin 600 MG TAB 1200 MG PO (20:19)
[2023-01-21] MEDS: Atorvastatin 40 MG TAB 80 MG PO (20:19)
[2023-01-21] MEDS: VANCOMYCIN/WATER (PEG) 1.5 GM/300 ML BAG IVPB (20:23)
[2023-01-22] MEDS: Ketorolac 15 MG/ML VIAL IVP ×4 (00:20→17:39)
--- NOTE | 2023-01-22 00:34 | NUR.NOTE ---
this RN entered room after being told about a beping pump to find patient sitting at bedside, nodding off, unable to answer or control her body, or mumbling and then returning to state. when addressed and gently shaken at shoulder she replied, im just scratching my leg patient eyes rolling around in her head, unable to focus or keep torso upright, which is unusual for her. Patient asked if she had taken something outside of prn meds, pt denied and got upset, but then was still unable to continue conversation of control torso, nodding off to the point where her head layed on her bedside table. patient also randomly disrobed and then put it back on during this time with no explanation. This RN will wait on administering pain medications or anxiolytics until patient is less sedated and somnolent. last prns given more than 4 hours ago. pt returned to bed and is safe. vitals stable. wctm
[2023-01-22] MEDS: CEFEPIME 2 GM in Normal Saline 100 ML IVPB (05:30)
--- NOTE | 2023-01-22 05:46 | NUR.NOTE ---
follow up to earlier note: around 0500 patient came back to and is completely coherant again.
[2023-01-22 06:33] VITALS: BP 95/62; PULSE 98; RESP 18; TEMP 36.5; O2SAT 94
[2023-01-22 06:48] LABS: Abs Immature Grans 0.04 10^3/uL (0.0-0.06); Absolute Basophil Count 0.06 10^3/uL (0.0-0.2); Absolute Eosinophil Count 0.73 10^3/uL (0.0-0.7); Absolute Lymphocyte Count 3.35 10^3/uL (1.2-3.4); Absolute Neutrophil Count 4.69 10^3/uL (1.2-6.7); Basophils % 0.6; Eosinophils % 7.5; HCT 37.3 % (36.0-46.0); HGB 12.2 g/dL (11.2-15.7); Immature Grans % 0.4; Lymphocytes % 34.3; MCH 28.7 pg (27.0-33.0); MCHC 32.7 % (32.0-36.0); MCV 88 fL (80-95); MPV 9.6 fL (8.0-11.0); Monocytes % 9.2; Platelet Count 304 10^3/uL (130-400); RBC 4.25 10^6/uL (3.93-5.22); RDW 14.6 % (11.7-14.6); RDW-SD 46.7 fL; WBC 9.77 10^3/uL (4.4-10.8)
[2023-01-22 07:12] LABS: Anion Gap 7.3 mmol/L (3-11); BUN 37 mg/dL (7-18); C-Reactive Protein 0.76 mg/dL (0.0-0.3); CO2 29.7 mmol/L (21.0-32.0); Calcium 8.7 mg/dL (8.5-10.1); Chloride 103 mmol/L (98-107); Estimated GFR 69.93 (mL/min/1.73m2); Glucose 151 mg/dL (74-106); Magnesium 2.4 mg/dL (1.8-2.4); Potassium 4.3 mmol/L (3.5-5.1); Sodium 140 mmol/L (136-145)
[2023-01-22] MEDS: Budesonide/Formoterol 80/4.5 6.9 GM 60 PUFF INH IH ×2 (07:45→20:11)
[2023-01-22] MEDS: Insulin Aspart 300 UNITS/3 ML PEN SC ×5 (08:01→17:05)
[2023-01-22] MEDS: Enoxaparin 30 MG/0.3 ML SYR SC ×2 (08:02→20:11)
[2023-01-22] MEDS: Magnesium Oxide 400 MG TAB PO ×2 (08:02→20:06)
[2023-01-22] MEDS: Methadone Liquid 10 MG/ML 130 MG PO (08:02)
[2023-01-22] MEDS: Carvedilol 3.125 MG TAB PO (08:03)
[2023-01-22] MEDS: Citalopram 20 MG TAB PO (08:03)
[2023-01-22] MEDS: Torsemide 20 MG TAB 40 MG PO (08:03)
[2023-01-22] MEDS: Acetaminophen 325 MG TAB 975 MG PO ×3 (08:03→20:07)
[2023-01-22] MEDS: Baclofen 10 MG TAB PO (08:03)
[2023-01-22] MEDS: Pantoprazole 40 MG TABCR PO ×2 (08:03→20:09)
[2023-01-22] MEDS: Aspirin E.C. 81 MG TABEC PO (08:03)
[2023-01-22] MEDS: Metoprolol CR 25 MG TABCR PO (08:03)
[2023-01-22] MEDS: levETIRAcetam 500 MG TAB 1000 MG PO ×2 (08:03→20:09)
[2023-01-22] MEDS: Folic Acid 1 MG TAB PO (08:03)
[2023-01-22] MEDS: guaiFENesin 600 MG TABCR PO ×2 (08:04→20:11)
[2023-01-22] MEDS: Empaglifozin 10 MG TAB PO (08:04)
[2023-01-22] MEDS: Clopidogrel 75 MG TAB PO (08:04)
[2023-01-22] MEDS: Gabapentin 600 MG TAB PO ×2 (08:04→11:51)
[2023-01-22] MEDS: Potassium Chloride 20 MEQ TABCR PO ×3 (08:04→20:10)
[2023-01-22] MEDS: Ondansetron 4 MG/2 ML VIAL IVP ×3 (08:17→20:39)
[2023-01-22] MEDS: HYDROmorphone 4 MG TAB PO ×3 (08:18→20:39)
[2023-01-22] MEDS: Normal Saline Flush 10 ML SYR IVP ×5 (08:18→20:40)
[2023-01-22 09:25] LABS: Vancomycin, Random 15.7 ug/mL
[2023-01-22 10:46] VITALS: BP 110/71; PULSE 94; RESP 17; TEMP 36.4; O2SAT 94
[2023-01-22] MEDS: LORazepam 0.5 MG TAB PO ×3 (11:52→21:38)
--- NOTE | 2023-01-22 11:58 | PGE_ITS ---
Date of Service Date of service: 01/22/23 Time of Service: 12:10 Assessment and Plan Assessment and plan (1) Surgical wound infection: Status: Acute (2) Surgical wound dehiscence: Status: Acute (3) Closed fracture of shaft of right tibia and fibula: Status: Acute Assessment and plan: Plan: Ms. Monique is a 47-year-old female who is post-op day 4 status post I&D of right lateral knee wound with wound vac placement on 01/18/23; she is status post right IM fixation of right tibia fracture on 11/24/22. Had extensive conversation with patient regarding need to continue with primarily oral narcotics. Had additional conversation with patient regarding muscle discomfort. Through conversation yesterday with Dr. Baeza she prescribed baclofen 10 mg 3 times daily. However, patient reports no change in muscle discomfort over the past 24 hours. Discussed best next steps with Dr. Baeza in detail including possibility for continuing with lorazepam as needed as well as adding additional muscle relaxant. Based on patient's methadone there is concern about muscle relaxants and possible QT prolongation. Dr. Baeza will review and start on muscle relaxant as needed if possible. Patient denies any change in numbness about quad; she is then also concerned about a vein along the anterior quad which appears to be swelling related. Patient is also demonstrating muscle guarding and active contraction with examination which is likely playing a role in discomfort and muscle cramping. Recommend trying to relax muscles as much as possible and can support leg with pillows to aide. Wound VAC system is working well and dressing is intact without issue. We will continue with dressing changes 3 times weekly. We will plan to change dressing tomorrow. Reviewed medicine notes by Dr. Baeza - patient underwent cardiac work-up including EKG and troponins which were negative. Patient was also placed on telemetry which was discontinued. Hospitalist team recommends follow-up as outpatient if symptoms continue. Based on patient's symptoms Dr. Baeza also started lorazepam which has been helpful with muscle spasms and overall anxiety. Based on patient's reported chest discomfort and anxiety at time of visit nursing staff was alerted and they were going to offer lorazepam. Dr. Baeza has been working with [facility] on antibiotic recommendations given patient's wound cultures. Based on their discussions they recommend trial of Bactrim DS - 2 tablets twice daily for 10 to 14 days. Based on patient's reported history of bleeding ulcers and ascitic diarrhea with majority of oral antibiotics we will try transition to oral Bactrim DS today and see how patient tolerates. Also reviewed patient's reported blood in urine to Dr. Baeza who recommends UA CRP from today was 0.76 H compared to previous CRP on 01/21/2023 which was 0.8 H. Will hope to discharge when cleared by hospitalist team and when able to transfer to oral antibiotics - may require transfer to swing bed status pending antibiotic options. Subjective Subjective Interval history since last seen: Ms. Monique is a 47-year-old female who is post op day 4 status post I&D of right lateral knee wound with wound vac placement on 01/18/23; she is status post right IM fixation of right tibia fracture on 11/24/22. Continues to report significant discomfort about the entire right lower extremity extending from her thigh to her goddard and ankle. Pain is a constant sensation that is aggravated with movement especially when moving from sitting to standing as well as with direct pressure. Reports discomfort along the posterior and lateral thigh that is the most significant. Continues to describe pain as more of a charley horse pain but has not noted any change with baclofen that has been scheduled dosing over the past day. Reports numbness along the anterior and medial thigh that is a constant sensation - has more diffuse numbness as her baseline neuropathy. Continues to be managed on oral hydromorphone. She has continued with baseline methadone. She does report chest pain at time of visit today. Reports concerned about switching to oral antibiotics given significant history of bleeding ulcers from oral antibiotics. However, patient is agreeable to trying orals while inpatient. Patient also reports new symptom of bleeding noted with urination. States this has been an ongoing issue for a very long time but she is concerned since it has continued well at the hospital. Patient is status post hysterectomy. Exam Const General: cooperative and no acute distress Resp Effort & Inspection: normal respiratory effort and able to speak in complete sentences Extrem Other: Brief examination of right lower extremity: Wound VAC is in place with intact and dry dressing. Skin about lower leg is intact without significant signs of erythema or calor. Less edema is noted today compared to contralateral side.Patient is able to demonstrate toe flexion and extension without issue - grimaces noted. Patient is able to demonstrate gentle ankle range of motion with grimace - she is able to move her foot and toes without discomfort when talking with provider. No drainage is noted in wound vac tubing at time of vi sit. There is moderate tenderness to palpation along area of IT band extending over greater greater trochanter. Throughout visit with provider patient is noted to be moving her hip as well as demonstrating more significant knee range of motion today without signs of visual discomfort. Objective Last Vital Signs Temp 97.6 F 01/22/23 10:46 Pulse 94 H 01/22/23 10:46 Resp 17 01/22/23 10:46 BP 110/71 01/22/23 10:46 Pulse Ox 94 01/22/23 10:46 Laboratory Results - last 24 hr 01/22/23 01/22/23 01/22/23 06:30 06:30 08:55 WBC 9.77 RBC 4.25 Hgb 12.2 Hct 37.3 MCV 88 MCH 28.7 MCHC 32.7 RDW 14.6 Plt Count 304 MPV 9.6 Immature Gran % 0.4 Neutrophils % 48.0 Lymphocytes % 34.3 Monocytes % 9.2 Eosinophils % 7.5 Basophils % 0.6 Nucleated RBC % 0.0 Absolute Neutrophils 4.69 Absolute Lymphocytes 3.35 Absolute Monocytes 0.90 H Absolute Eosinophils 0.73 H Absolute Basophils 0.06 Sodium 140 Potassium 4.3 Chloride 103 Carbon Dioxide 29.7 Anion Gap 7.3 BUN 37 H Creatinine 1.0 Est GFR (CKD-EPI 2020) 69.93 Glucose 151 H Calcium 8.7 Magnesium 2.4 C-Reactive Protein 0.76 H Random Vancomycin 15.7 Time Spent with Patient Time Spent with Patient: 35-49 minutes Time was spent: preparing to see the patient(eg.review tests), obtaining and/or reviewing separately otained hiistory, referring, communicating with other health wound care nurse, counseling the patient and care coordination
[2023-01-22] MEDS: Methocarbamol 750 MG TAB PO ×2 (12:09→16:30)
[2023-01-22] MEDS: HYDROmorphone 2 MG/ML SYR 1 MG IVP (14:57)
[2023-01-22 15:02] VITALS: BP 106/68; PULSE 90; RESP 18; TEMP 37.3; O2SAT 97
[2023-01-22 16:03] LABS: Bilirubin Negative (Negative); Blood Trace-intact (Negative); Clarity Clear (Clear); Glucose 500 mg/dL (Negative); Ketones Negative (Negative); Leukocyte Esterase Negative (Negative); Nitrite Negative (Negative); Specific Gravity 1.015 (1.005-1.025); Urobilinogen 0.2 mg/dL (Up to 0.2)
[2023-01-22 16:11] LABS: Bacteria Negative HPF (Negative); C & S Indicated? No; Casts 0-2 Hyaline LPF (Negative); Crystals Negative HPF (Negative); Epithelial Cells Few HPF (Negative); Mucus Negative (Negative); RBC 0-2 HPF (0-2); WBC 0-2 HPF (0-5)
--- NOTE | 2023-01-22 18:23 | PGE_ITS ---
Date of Service Date of service: 01/22/23 Time of Service: 18: Assessment and Plan Assessment and plan (1) Surgical wound infection: Status: Acute Assessment and plan: s/p I&D of her right tibial wound on 01/18/23. s/p wound vac. D/c vanco/cefepime and trial bactrim for the polymicrobial wound infection (enterobacter, MSSA, enterococcus). Trial bactrim to ensure the patient tolerates it. Continue to trend CRP. Discussed with Maryann Garcia ortho PA. (2) Right leg pain: Status: Acute Assessment and plan: Venous doppler negative. Suspect this is expected post-surgical edema. (3) Surgical wound dehiscence: Status: Acute Assessment and plan: as above (4) RUQ pain: Status: Acute Assessment and plan: Obtain US RUQ. (5) Closed fracture of shaft of right tibia and fibula: Status: Acute Assessment and plan: Last XR 12/16/22 and showed stability in herfibular fx; her proximal tibia has an intramedullary blair. Ortho is following - defer to primary team. (6) Ischemic cardiomyopathy: Status: Chronic Assessment and plan: No ACS. Tele d/c'ed. Some of this could have been true cardiac pain and will need outpatient follow up; however, I think that this is more likely to be anxiety. Continue prn lorazepam. (7) Type 2 diabetes mellitus: Status: Chronic Assessment and plan: Continue current management. (8) Diabetic peripheral neuropathy: Status: Acute Assessment and plan: Continue current doses of gabapentin. (9) PTSD (post-traumatic stress disorder): Status: Chronic Assessment and plan: With episodes of anxiety. Continue prn lorazepam. (10) Opioid dependence: Status: Chronic Assessment and plan: continue methadone 130 mg daily She is also written for prn po and iv dilaudid q1h prn pain in addition to ketorolac 15 mg iv q6hr (11) Obstructive sleep apnea: Status: Chronic Assessment and plan: Continue supplemental O2 (12) DVT prophylaxis: Status: Acute Assessment and plan: Continue SC enoxaparin (Discussing dose with pharmacy) (13) Discharge planning issues: Status: Acute Assessment and plan: Full code I have spoken with care management about the patient reporting not having a place to go home to.] If ID recommends continued IV abx, would benefit from swinging. Will discuss with care management re referral to dentist and also re possibility of still keeping her MRI appointment next week. Subjective Subjective Interval history since last seen: December has had chest pains again today, reports shortness of breath, cough productive of greyish sputum (collected), denies n/v. Endorses RUQ pain and visible blood in urine. Per conversation with ID yesterday, when in setting of a polymicrobial infection, enterococci do not usually represent a true infection - they are more of a symbiote and targeting the other organisms is usually sufficient and eradicates the enterococcus too. Bactrim DS 2 tabs BID for 10-14 days was recommended (would target enterobacter and MSSA). I discussed this with Maryann Garcia. Exam Narrative Exam Narrative: General: Pleasant middle-aged female, anxious A&OX3, NAD HEENT: EOMI, MMM Heart: RRR, no m/r/g Lungs: CTAB Abdomen: soft, tender in RUQ when flexing abdominal muscles, nondistended Extremities: RLE: knee with wound vac; edema not as impressive today Objective Last Vital Signs Temp 37.3 C 01/22/23 15:02 Pulse 90 01/22/23 15:02 Resp 18 01/22/23 15:02 BP 106/68 01/22/23 15:02 Pulse Ox 97 01/22/23 15:02 Laboratory Results - last 24 hr 01/22/23 01/22/23 01/22/23 06:30 06:30 08:55 WBC 9.77 RBC 4.25 Hgb 12.2 Hct 37.3 MCV 88 MCH 28.7 MCHC 32.7 RDW 14.6 Plt Count 304 MPV 9.6 Immature Gran % 0.4 Neutrophils % 48.0 Lymphocytes % 34.3 Monocytes % 9.2 Eosinophils % 7.5 Basophils % 0.6 Nucleated RBC % 0.0 Absolute Neutrophils 4.69 Absolute Lymphocytes 3.35 Absolute Monocytes 0.90 H Absolute Eosinophils 0.73 H Absolute Basophils 0.06 Sodium 140 Potassium 4.3 Chloride 103 Carbon Dioxide 29.7 Anion Gap 7.3 BUN 37 H Creatinine 1.0 Est GFR (CKD-EPI 2020) 69.93 Glucose 151 H Calcium 8.7 Magnesium 2.4 C-Reactive Protein 0.76 H Urine Color Urine Clarity Urine pH Ur Specific [place] Urine Protein Urine Ketones Urine Blood Urine Nitrite Urine Bilirubin Urine Urobilinogen Ur Leukocyte Esterase Urine RBC Urine WBC Ur Epithelial Cells Urine Crystals Urine Bacteria Urine Casts Urine Mucus Ur Culture Indicated? Urine Glucose Random Vancomycin 15.7 01/22/23 15:47 WBC RBC Hgb Hct MCV MCH MCHC RDW Plt Count MPV Immature Gran % Neutrophils % Lymphocytes % Monocytes % Eosinophils % Basophils % Nucleated RBC % Absolute Neutrophils Absolute Lymphocytes Absolute Monocytes Absolute Eosinophils Absolute Basophils Sodium Potassium Chloride Carbon Dioxide Anion Gap BUN Creatinine Est GFR (CKD-EPI 2020) Glucose Calcium Magnesium C-Reactive Protein Urine Color Yellow Urine Clarity Clear Urine pH 6.0 Ur Specific [place] 1.015 Urine Protein Negative Urine Ketones Negative Urine Blood Trace-intact H Urine Nitrite Negative Urine Bilirubin Negative Urine Urobilinogen 0.2 Ur Leukocyte Esterase Negative Urine RBC 0-2 Urine WBC 0-2 Ur Epithelial Cells Few Urine Crystals Negative Urine Bacteria Negative Urine Casts 0-2 Hyaline Urine Mucus Negative Ur Culture Indicated? No Urine Glucose 500 H Random Vancomycin Time Spent with Patient Time Spent with Patient: 25-34 minutes Time was spent: preparing to see the patient(eg.review tests), obtaining and/or reviewing separately otained hiistory, ordering medications,tests, procedures, referring, communicating with other health animal care worker, indepentently interpreting results, counseling the patient and care coordination
[2023-01-22 18:27] VITALS: BP 110/72; PULSE 92; RESP 16; TEMP 36.7; O2SAT 96
[2023-01-22] MEDS: Sulfameth/Trimeth DS TAB 2 TAB PO (20:06)
[2023-01-22] MEDS: Gabapentin 600 MG TAB 1200 MG PO (20:07)
[2023-01-22] MEDS: Atorvastatin 40 MG TAB 80 MG PO (20:09)
[2023-01-22 23:02] VITALS: BP 135/77; PULSE 88; RESP 19; TEMP 36.1; O2SAT 93
--- NOTE | 2023-01-23 | DI.US_ITS ---
Exam(s) US ABDOMEN EXAM: US ABDOMEN CLINICAL HISTORY: RUQ pain; hematuria TECHNIQUE: Ultrasound abdomen performed using standard protocol. COMPARISON: CT CT CHEST PE CTA from 12/22/2022 FINDINGS: ABDOMINAL AORTA AND IVC: Visualized portions normal caliber. PANCREAS: Normal where visualized. LIVER: There is fatty infiltration of the liver. Hepatopedal flow in the Portal Vein. The liver measu res 18.1 cm long. GALLBLADDER:No evidence of cholelithiasis. No evidence of wall thickening. No pericholecystic fluid i dentified. BILIARY SYSTEM: Common bile duct measures < 7 mm. No intrahepatic biliary ductal dilation. BRITO'S SIGN: Negative. KIDNEYS: Kidneys are symmetric in size. No evidence of renal calculi. No evidence of hydronephrosis. No renal mass or cyst identified. SPLEEN: Not enlarged. ASCITES: None seen. IMPRESSION: Hepatomegaly and fatty infiltration of the liver. DATA REPOSITORY:
[2023-01-23] MEDS: Ketorolac 15 MG/ML VIAL IVP (00:07)
[2023-01-23] MEDS: Normal Saline Flush 10 ML SYR IVP ×2 (00:08→02:14)
[2023-01-23] MEDS: HYDROmorphone 4 MG TAB PO ×3 (02:04→15:22)
[2023-01-23] MEDS: Ondansetron 4 MG/2 ML VIAL IVP ×2 (02:14→11:46)
[2023-01-23] MEDS: LORazepam 0.5 MG TAB PO ×2 (02:49→11:46)
[2023-01-23 02:53] VITALS: BP 113/67; PULSE 94; RESP 18; TEMP 36.3; O2SAT 95
[2023-01-23 07:34] LABS: ALT 27 U/L (14-59); AST 22 U/L (15-37); Albumin 3.3 g/dL (3.4-5.0); Alkaline Phosphatase 121 U/L (46-116); Bilirubin, Direct 0.1 mg/dL (0.0-0.2); Bilirubin, Total 0.3 mg/dL (0.2-1.0); Lipase 24 U/L (16-77); Total Protein 7.1 g/dL (6.4-8.2)
[2023-01-23 08:09] LABS: Lab Add On Test DONE
[2023-01-23 08:21] LABS: Anion Gap 5.4 mmol/L (3-11); BUN 38 mg/dL (7-18); C-Reactive Protein 0.76 mg/dL (0.0-0.3); CO2 32.6 mmol/L (21.0-32.0); CREATININE 1.5 mg/dL (0.55-1.02); Calcium 9.4 mg/dL (8.5-10.1); Chloride 103 mmol/L (98-107); Estimated GFR 42.99 (mL/min/1.73m2); Glucose 109 mg/dL (74-106); Potassium 4.5 mmol/L (3.5-5.1); Sodium 141 mmol/L (136-145)
[2023-01-23 08:40] LABS: Procalcitonin < 0.1 ng/mL
[2023-01-23 09:15] VITALS: BP 108/73; PULSE 95; RESP 14; TEMP 36.9; O2SAT 94
[2023-01-23] MEDS: Gabapentin 600 MG TAB PO ×2 (09:16→11:30)
[2023-01-23] MEDS: Sulfameth/Trimeth DS TAB 2 TAB PO (09:16)
[2023-01-23] MEDS: Clopidogrel 75 MG TAB PO (09:16)
[2023-01-23] MEDS: Methocarbamol 750 MG TAB PO ×2 (09:17→15:21)
[2023-01-23] MEDS: guaiFENesin 600 MG TABCR PO (09:17)
[2023-01-23] MEDS: Folic Acid 1 MG TAB PO (09:17)
[2023-01-23] MEDS: Empaglifozin 10 MG TAB PO (09:17)
[2023-01-23] MEDS: Torsemide 20 MG TAB 40 MG PO (09:17)
[2023-01-23] MEDS: Potassium Chloride 20 MEQ TABCR PO ×2 (09:17→15:21)
[2023-01-23] MEDS: Acetaminophen 325 MG TAB 975 MG PO ×2 (09:18→15:21)
[2023-01-23] MEDS: levETIRAcetam 500 MG TAB 1000 MG PO (09:18)
[2023-01-23] MEDS: Enoxaparin 30 MG/0.3 ML SYR SC (09:18)
[2023-01-23] MEDS: Pantoprazole 40 MG TABCR PO (09:18)
[2023-01-23] MEDS: Magnesium Oxide 400 MG TAB PO (09:18)
[2023-01-23] MEDS: Citalopram 20 MG TAB PO (09:18)
[2023-01-23] MEDS: Aspirin E.C. 81 MG TABEC PO (09:18)
[2023-01-23] MEDS: Carvedilol 3.125 MG TAB PO (09:18)
[2023-01-23] MEDS: Metoprolol CR 25 MG TABCR PO (09:18)
[2023-01-23] MEDS: Methadone Liquid 10 MG/ML 130 MG PO (09:19)
[2023-01-23] MEDS: Insulin Aspart 300 UNITS/3 ML PEN SC ×4 (09:30→16:59)
[2023-01-23] MEDS: Budesonide/Formoterol 80/4.5 6.9 GM 60 PUFF INH IH (10:14)
[2023-01-23] MEDS: HYDROmorphone 2 MG/ML SYR 1 MG IVP (11:30)
[2023-01-23 11:36] VITALS: BP 105/72; PULSE 98; RESP 16; TEMP 36.9; O2SAT 96
[2023-01-23] MEDS: Lidocaine 1% Multi-Dose 50 ML VIAL IJ (12:34)
[2023-01-23 15:22] VITALS: BP 99/63; PULSE 93; RESP 20; TEMP 37.1; O2SAT 94
--- NOTE | 2023-01-23 15:55 | NUR.NOTE ---
Patient vaping at bedside. Confiscated and placed in safe with patient label. Informed patient on smoking/vaping policy. Nursing Note:
--- NOTE | 2023-01-23 16:19 | PGE_ITS ---
Date of Service Date of service: 01/23/23 Time of Service: 16:47 Assessment and Plan Assessment and plan (1) Surgical wound infection: Status: Acute (2) Surgical wound dehiscence: Status: Acute (3) Closed fracture of shaft of right tibia and fibula: Status: Acute Assessment and plan: Plan: Ms. Monique is a 47-year-old female who is post-op day 5 status post I&D of right lateral knee wound with wound vac placement on 01/18/23; she is status post right IM fixation of right tibia fracture on 11/24/22. Had extensive conversation with patient regarding need to continue with primarily oral narcotics. Had additional conversation with patient regarding muscle discomfort. Has been on lorazepam as needed. Recommend continuing to relax muscles as much as possible and can support leg with pillows to aide. Wound was assessed and new wound vac dressing was applied by provider with Kenisha Rankin RN and Luis Godoy PA-C. Wound vac was set to pressure 125. Will continue with dressing changes three times weekly. Reviewed medicine notes by Dr. Baeza - patient underwent ultrasound of her ab domen which as per Dr. Gonzalez read was positive for hepatomegaly and fatty infiltration of the liver. CRP from today was 0.76 H unchanged from yesterday Dr. Baeza has been working with [facility] on antibiotic recommendations given patient's wound cultures. Based on their discussions they recommend trial of Bactrim DS - 2 tablets twice daily for 10 to 14 days. Patient has been on oral Bactrim DS for the past day without reported issues. Once educated patient she has been tolerating oral okay she reports more significant nausea. Patient already has order for Zofran as needed. Since patient has been tolerating oral antibiotics discussed discharge options. Unfortunately, based on patient's lack of housing care management try to assess placement options including umbrella versus short-term hotel stay. After attempt of working with local organizations best option was to place patient on swing bed. Hospitalist team has agreed to take patient on swing bed - will continue to consult for wound management Subjective Subjective Interval history since last seen: Ms. Monique is a 47-year-old female who is post op day 5 status post I&D of right lateral knee wound with wound vac placement on 01/18/23; she is status post right IM fixation of right tibia fracture on 02/23/23. Continues to report significant discomfort about the entire right lower extremity extending from her thigh to her goddard and ankle. Pain is a constant sensation that is aggravated with movement especially when moving from sitting to standing as well as with direct pressure. Reports discomfort along the posterior and lateral thigh that is the most significant. Reports numbness along the anterior and medial thigh that is a constant sensation - has more diffuse numbness as her baseline neuropathy. Continues to be managed on oral hydromorphone; received one IV dose prior to wound vac change. She has continued with baseline methadone. She does report chest pain at time of visit today. Does not report nausea initially. Exam Const General: cooperative and no acute distress Resp Effort & Inspection: normal respiratory effort and able to speak in complete sentences Extrem Other: Brief examination of right lower extremity: Wound VAC is in place with intact and dry dressing. Skin about lower leg is intact without significant signs of erythema or calor. Less edema is noted today compared to contralateral side. Patient is able to demonstrate toe flexion and extension without issue. Patient is moves her foot and toes without discomfort when talking with provider. No drainage is noted in wound vac tubing at time of visit. Throughout visit with provider patient is noted to be moving her hip as well as demonstrating more significant knee range of motion today without signs of visual discomfort. Once wound vac was removed the wound was measured to be ~6 cm x 2.5 cm at maximum height with 0.6 cm of depth. Edges of wound were without significant signs of erythema and no signs of purulent discharge were noted. Wound bed had granulation tissue without signs of significant fibrous tissue or purulent discharge. Objective Last Vital Signs Temp 98.7 F 01/23/23 15:22 Pulse 93 H 01/23/23 15:22 Resp 20 01/23/23 15:22 BP 99/63 L 01/23/23 15:22 Pulse Ox 94 01/23/23 15:22 Laboratory Results - last 24 hr 01/23/23 01/23/23 01/23/23 06:45 06:45 06:45 Sodium 141 Potassium 4.5 Chloride 103 Carbon Dioxide 32.6 H Anion Gap 5.4 BUN 38 H Creatinine 1.5 H Est GFR (CKD-EPI 2020) 42.99 Glucose 109 H Calcium 9.4 Total Bilirubin 0.3 Conjugated Bilirubin 0.1 AST 22 ALT 27 Alkaline Phosphatase 121 H C-Reactive Protein 0.76 H Total Protein 7.1 Albumin 3.3 L Lipase 24 Procalcitonin Add-On Test Request DONE 01/23/23 06:45 Sodium Potassium Chloride Carbon Dioxide Anion Gap BUN Creatinine Est GFR (CKD-EPI 2020) Glucose Calcium Total Bilirubin Conjugated Bilirubin AST ALT Alkaline Phosphatase C-Reactive Protein Total Protein Albumin Lipase Procalcitonin < 0.1 Add-On Test Request Time Spent with Patient Time Spent with Patient: 25-34 minutes Time was spent: preparing to see the patient(eg.review tests), obtaining and/or reviewing separately otained hiistory and referring, communicating with other health daycare assistant
--- NOTE | 2023-01-23 16:20 | CMPROGNOTE_ITS ---
- If Service Date Differs Date of service: 01/23/23 Time of Service: 16:20 Care Management Progress Note S/O: Aracelis will engage with [facility] and CM staff to determine resources for disposition (dependent on medical status and service needs). Aracelis reports not utilizing either service prior. CM reviewed case with Mya who reported she would consult her team and then re-connect with this bond writer. CM reviewed options; inquired to payor source for Level 3, advised of disability status and LTM coverage. CM spoke with Luis Zhou, Adjunct Phlebotomy Instructor for [employer] who provided day time contact information for housing support and reviewed benefits and barriers of disposition efforts. CM spoke with Amelia sanchez [facility] who advised no current bed availability in women's senior care; hotel only. Recommended ES route with Carolyn Ames support. Huddle with Ortho providers; Maryann Merchant and Luis Godoy and Hosptialist Dr. Baeza; discussed possible dispositions, service and treatment needs; anticpate Aracelis may enter [facility] for wound care for period of stabilization prior to transitioning to hotel, as she could be placed out of area which would complicate home health dressing changes; complex discharge needs. A: 47 year old female admitted to [facility] 01/17/23 for Right surgical wound infection P: Anticipate Aracelis will enter [facility] short term for wound care, for period of stabilization prior to entering homeless senior care/hotel. Aracelis will resume home O2. Wound vac ([facility] P#[phone], Case # [id number]; notify when discharging and which Home Health Agency will be supporting) placed as well with 3x/wk dressing changes required at this time (CHRISTINEA RN). [facility] referral for housing support ([id number]). Possible [facility] referral. CM continues to follow.
--- NOTE | 2023-01-23 17:21 | NUR.NOTE ---
Again patient in room vaping. Discussed with patient hospital policy that vaping is not allowed in the hospital. Patient states vape is empty. Confiscated vape and range mechanic from patient and placed in safe. Charge nurse, Nay made aware. Nursing Note:
--- NOTE | 2023-02-04 12:19 | INDS_ITS ---
PT Notes Visit Reasons: Right Surgical Wound Infection Physical Therapy Inpatient Discharge Summary Date: 01/31/2023 Dates of Service:? 01/24/2023 through 01/31/2023 This is a clinical summary of care provided for the duration of dates listed above. No charge was made in the completion of this documentation. Referring Doctor:? Brii Baeza? PT Orders: PT CONSULT: Limited ability Precautions: Fall.? Activity as tolerated.? WBAT on the R LE with FWW.? Wound vacuum in place.? On oxygen supplementation at 2.5L/minute via NC. Patient Profile/Admitting Diagnosis:? December is a 47-year-old female with past medical history significant for PTSD, opioid dependence, and RAQUEL who diagnosed with right knee surgical wound dehiscence and infection status post irrigation and debridement with wound vacuum application on 01/18/2023.? Patient is status post right IM fixation of r ight tibia and fibular shaft fracture on 11/24/2022.? Patient is admitted to swing bed level 1 for management of surgical wound dehiscence and infection, RUQ pain, ischemic cardiomyopathy and right leg pain. Social History/Home Situation: Currently unhoused.? Working with for a safe disposition at this time.? Uses crutches to get in and around previous residence after surgery back in November of 2022.? Equipment Owned/DME: FWW,? JUWAN SUBJECTIVE: NT. See most recent LOSS CONTROL MANAGER notes. OBJECTIVE: General Observation: NT. See most recent LOSS CONTROL MANAGER notes. Mental Status: NT. See most recent LOSS CONTROL MANAGER notes. Pain: NT. See most recent LOSS CONTROL MANAGER notes. Vital Signs: NT. See most recent LOSS CONTROL MANAGER notes. ROM: Right Lower Extremity: Hip flexion WFL. Hip abduction WFL. Knee flexion WFL. Ankle dorsiflexion WFL. Ankle plantarflexion WFL. Left Lower Extremity: Hip flexion WFL. Hip abduction WFL. Knee flexion WFL. Ankle dorsiflexion WFL. Ankle plantarflexion WFL. Strength: Right Lower Extremity: Hip flexors 4/5. Hip abductors 4/5. Knee flexors 4/5. Knee extensors 4-/5.? Ankle dorsiflexors 3-/5. Ankle plantarflexors 4/5. Left Lower Extremity:Hip flexors 5/5. Hip abductors 5/5. Knee flexors 5/5. Knee extensors 5/5. Ankle dorsiflexors 5/5. Ankle plantarflexors 5/5. Sensation:? Intact as to pain and light pressure in bilateral lower extremities Bed Mobility/Transfers: Rolling independent Supine to sit independent Sit to supine independent Sit to stand independent Stand to sit independent Bed to chair independent Chair to bed independent Gait:? Tolerated level surface ambulation of up to 200 feet using FWW with WBAT on the R LE.? Favoring R LE due to increased pain report by bending trunk forward and to the L slightly.? Balance:? Static Sitting: Normal Dynamic Sitting: Normal Static Standing: Fair Dynamic Standing: Fair Assessment:?? Unsure of disposition at this time.? Will need stair negotiation training prior to discharge tomorrow.? Patient has 2 FWW at home at has been advised to use said DME as she will get the most stability out of it compared to crutches or canes.? She also has bilateral axillary crutches that she can use once pain level decreases. Patient presents with clinical signs and symptoms consistent with current/admitting diagnoses that have resulted to mobility limitations, gait instability, generalized weakness, and overall ADL decline as demonstrated by t he following impairment level findings: 1.? Impaired activity tolerance due to varying pain levels Impairments are contributing to the following functional limitations: 1.? Difficulty with ambulation without assistive device 2.? Increased completion time for mobility ADL performance 3.? Increased risk for falls Goals: Goals X1 week 1. Supine-Sit independent MET 2. Sit-Supine independent MET 3. Sit-Stand independent MET 4. Stand-Sit independent with FWW MET 5. Bed-Chair independent with FWW MET 6. Chair-Bed independent with FWW MET 7. Independent gait on level surface with use of FWW for at least 200 feet without report of pain nor dyspnea?NOT MET, CONTINUE 8. Independent with home exercise program?NOT MET, CONTINUE 9. Good static and dynamic standing balance/tolerance?NOT MET, CONTINUE DISCHARGE RECOMMENDATIONS: [] ? Home with no services [] [] ? Home with services.? [X] ? Home with outpatient PT. Recommend outpatient PT services in order to progress mobility level to independent without the need for any assistive device to allow for safe community ambulation and fall reduction. [] ? SNF for continued rehabilitation [] [] ? [facility] [] [] ? SNF versus LTC based on ability to participate and progress [] TREATMENT CODE/TIME: NC Thank you for the opportunity to participate in the care of this patient. Patricia Ribeiro PT, DPT, CLT [facility] [place], [place]
== END 2023-01-23 18:02 | disposition swing bed (61) | DRG 902 ==
LOC: ER 17:16 → MS 19:36
PROVIDERS: Internal Medicine; Admitting Provider Student in an Organized Health Care Education/Training Program; Emergency Provider Registered Nurse Emergency; PCP Nurse Practitioner Family; Visit Provider Student in an Organized Health Care Education/Training Program
PROC: 0S9C0ZZ Drainage of Right Knee Joint, Open Approach (ICD-10-PCS; CPT 27310; principal; 2023-01-18 13:45)
DX: T81.31XA Disruption of external operation (surgical) wound, not elsewhere classified, initial encounter (principal); F11.20 Opioid dependence, uncomplicated; T81.49XA Infection following a procedure, other surgical site, initial encounter; J96.11 Chronic respiratory failure with hypoxia; L03.115 Cellulitis of right lower limb; E11.65 Type 2 diabetes mellitus with hyperglycemia; I25.5 Ischemic cardiomyopathy; F32.A Depression, unspecified; F17.210 Nicotine dependence, cigarettes, uncomplicated; J45.909 Unspecified asthma, uncomplicated; K21.9 Gastro-esophageal reflux disease without esophagitis; I50.9 Heart failure, unspecified; F43.10 Post-traumatic stress disorder, unspecified; I27.20 Pulmonary hypertension, unspecified; Z79.4 Long term (current) use of insulin; I45.81 Long QT syndrome; R55 Syncope and collapse; I25.2 Old myocardial infarction; G51.0 Bell's palsy; M1A.9XX0 Chronic gout, unspecified, without tophus (tophi); E11.42 Type 2 diabetes mellitus with diabetic polyneuropathy; E78.5 Hyperlipidemia, unspecified; S82.291D Other fracture of shaft of right tibia, subsequent encounter for closed fracture with routine healing; S82.491D Other fracture of shaft of right fibula, subsequent encounter for closed fracture with routine healing; X58.XXXD Exposure to other specified factors, subsequent encounter; G47.33 Obstructive sleep apnea (adult) (pediatric); I95.9 Hypotension, unspecified
CPT/HCPCS: 27310; 11042; 36415; 80048; 80053; 80076; 83690; 84145; 87040; 87077; 87081; 87635; 94640; 96374; 96375; 99223; 99232; 99285; 76700; 80202; 81003; 81015; 83605; 83735; 84484; 85025; 86140; 87070; 87075; 87186; 87205; 93005; 93010; 93971; 94664; 94667; 99222; 99231; 99233; J1170; J1650; J1885; J2250; J2405; J3010; J3480; J3490

== ENCOUNTER 2023-01-23 17:35 | Inpatient (IN) | payer MEDICARE, MEDICAID, SELFPAY ==
--- NOTE | 2023-01-23 20:02 | HPE_ITS ---
Date of service: 01/23/23 Time of Service: 20:02 Assessment and Plan Assessment and plan (1) Surgical wound infection: Status: Acute Assessment and plan: s/p I&D of her right tibial wound on 01/18/23. s/p wound vac. Tolerating bactrim. Continue x 14 days of abx starting 01/18/23. (2) Right leg pain: Status: Acute Assessment and plan: Venous doppler negative. Suspect this is expected post-surgical edema. (3) Surgical wound dehiscence: Status: Acute Assessment and plan: as above (4) RUQ pain: Status: Acute Assessment and plan: Suspect this is musculoskeletal. US RUQ not showing any acute pathology. (5) Closed fracture of shaft of right tibia and fibula: Status: Acute Assessment and plan: Last XR 12/16/22 and showed stability in herfibular fx; her proximal tibia has an intramedullary blair. Ortho is following. (6) Ischemic cardiomyopathy: Status: Chronic Assessment and plan: Chest pains are recurrent. While the could be angina, she has not had any evidence of ACS on her acute admission, and this is more likely to be anxiety. Continue her current cardiac medications. Continue prn lorazepam. (7) Type 2 diabetes mellitus: Status: Chronic Assessment and plan: Continue current management. (8) Diabetic peripheral neuropathy: Status: Acute Assessment and plan: Continue current doses of gabapentin. (9) PTSD (post-traumatic stress disorder): Status: Chronic Assessment and plan: With episodes of anxiety. Continue prn lorazepam. (10) Opioid dependence: Status: Chronic Assessment and plan: continue methadone 130 mg daily She is also written for prn po and iv dilaudid q1h prn pain in addition to ketorolac 15 mg iv q6hr (11) Obstructive sleep apnea: Status: Chronic Assessment and plan: Continue supplemental O2 (12) DVT prophylaxis: Status: Acute Assessment and plan: Continue SC enoxaparin (13) Discharge planning issues: Status: Acute Assessment and plan: Full code Place in swing bed level 1 for wound vac management. History of Present Illness History of Present Illness Chief Complaint: R knee pain Narrative: Ms Monique is a 47 year old female with PMHx of R knee surgical wound dehiscence due to infection s/p I&D on 01/18/[address] Prohaska, as well as h/o IDDM2, chronic systolic CHF w/ LVEF of 39%, opioid dependence on methadone, who is being admitted into swing bed level status for management of her R knee wound vac while carefully monitoring her antibiotic therapy for above infection. Per [facility], the patient would benefit from being on bactrim DS 2 tab BID x 10-14 days starting with the day of procedure. Review of Systems All systems reviewed & are unremarkable except as noted in HPI and below PFSH All Active Problems (Updated 01/22/23 @ 18:58 by Brii Baeza MD) RUQ pain (Acute) Discharge planning issues (Acute) DVT prophylaxis (Acute) Right leg pain (Acute) Surgical wound infection (Acute) Surgical wound dehiscence (Acute) Fatigue (Acute) Polypharmacy (Acute) Fracture of tibial shaft, right, closed (Acute) Cellulitis of right leg (Acute) Opioid dependence (Chronic) Recurrent episodes of unresponsiveness (Acute) Syncope (Chronic) Closed fracture of right fibula and tibia (Acute) Closed fracture of shaft of right tibia and fibula (Acute 11/23/22) s/p IMN of Right Tibia - 11/24/22 QT prolongation (Chronic) Nonspecific paroxysmal spell (Acute) Episode of unresponsiveness (Acute) Chronic systolic CHF (congestive heart failure) (Chronic) Ischemic cardiomyopathy (Chronic) Obstructive sleep apnea (Chronic) Hallucinations (Acute) Chronic respiratory failure with hypoxia (Chronic) Fracture of finger, left (Acute) Syncopal episodes (Chronic) Observed seizure-like activity (Acute) Opioid dependence on agonist therapy (Acute) Leg wound, left (Acute) Facial palsy (Acute) Pulmonary HTN (Acute) Heart failure (Acute) 09/02/21 with [place] low EF Vertigo (Acute) GERD (gastroesophageal reflux disease) (Chronic) Essential hypertension (Acute) Asthma (Chronic) Depression (Chronic) PTSD (post-traumatic stress disorder) (Chronic) Tobacco abuse disorder (Acute) Hypokalemia (Acute) Chronic gout (Acute) Hyperlipidemia (Acute) Diabetic peripheral neuropathy (Acute) Type 2 diabetes mellitus (Chronic) Medical History (Updated 01/22/23 @ 18:58 by Brii Baeza MD) COVID was vaccinated but contracted Covid 06/22 History of gastrointestinal ulcer Non-STEMI (non-ST elevated myocardial infarction) 09/02/21 Surgical History H/O bone graft left knee H/O shoulder surgery x4 and ending with a full replacement H/O total hysterectomy History of appendectomy History of colonoscopy History of esophagogastroduodenoscopy (EGD) gastritis with gastric ulcers Previous section x4 delivery Family History Mother Cancer Heart disease Obstructive lung disease Depression Arthritis Degeneration of intervertebral disc Father Alcohol use disorder Brother Hypertension Mood disorder Maternal Grandfather Alcohol use disorder Maternal Grandmother Breast cancer Maternal Aunt Breast cancer Paternal Aunt Breast cancer Social History Smoking/Tobacco Use Status: Current every day Tobacco Type: cigarettes Tobacco: How many years used: 34 Smoking risk assessment performed?: Yes Alcohol Intake: current Alcohol Intake frequency: holidays/special occasions only Alcohol type: beer Drug use: Never Substance use type: does not use Do you feel safe at home: Yes Do you feel safe in your relationship?: Yes Meds Allergies and Home Medications Allergies Allergy/AdvReac Type Severity Reaction Status Date / Time Bleach (Sodium Hypochlorite) Allergy Unknown Verified 01/17/23 16:34 mushroom Allergy Unknown Verified 01/17/23 16:34 Penicillins Allergy Unknown Verified 01/17/23 16:34 tramadol Allergy Unknown Verified 01/17/23 16:34 mold Allergy Verified 01/17/23 16:34 trazodone Allergy Verified 01/17/23 16:34 Home Medications Medication Instructions Recorded Confirmed Type albuterol sulfate 2.5 mg/3 mL 2.5 mg inhalation Q6H PRN 10/18/21 01/23/23 History (0.083 %) solution for nebulization atorvastatin 80 mg tablet (Lipitor) 80 mg PO DAILY 10/18/21 01/23/23 History clopidogrel 75 mg tablet (Plavix) 75 mg PO DAILY 10/18/21 01/17/23 History insulin degludec 200 unit/mL (3 120 unit subcut DAILY 10/18/21 01/23/23 History mL) subcutaneous pen (Tresiba FlexTouch U-200 insulin) insulin lispro 100 unit/mL unit subcut AC & HS PRN 10/18/21 01/13/23 History subcutaneous pen (Humalog KwikPen (U-100) Insulin) magnesium oxide 400 mg (241.3 mg 400 mg PO BID 10/18/21 01/23/23 History magnesium) tablet (MagOx) nitroglycerin 0.4 mg sublingual 0.4 mg sublingual Q5M PRN 10/18/21 01/23/23 History tablet (Nitrostat) methadone 10 mg/5 mL oral solution 130 mg PO DAILY 03/15/22 01/23/23 History carboxymethylcellulose sodium 0.5 1 drp OU QID #50 ea 08/15/22 01/23/23 Rx % eye drops in a dropperette (Refresh Plus) albuterol sulfate 90 mcg/actuation 2 inh inhalation Q3H PRN PRN 10/29/22 01/23/23 History aerosol inhaler (ProAir HFA) Shortness Of Breath Or Wheezing aspirin 81 mg tablet,delayed 81 mg PO DAILY 10/29/22 01/23/23 History release (Adult Low Dose Aspirin) benzonatate 100 mg capsule 100 mg PO TID PRN PRN Cough 10/29/22 01/23/23 History cetirizine 10 mg tablet (Zyrtec) 10 mg PO DAILY 10/29/22 01/23/23 History citalopram 20 mg tablet (Celexa) 20 mg PO DAILY 10/29/22 01/17/23 History colchicine 0.6 mg tablet (Colcrys) 0.6 mg PO BID 10/29/22 01/23/23 History empagliflozin 10 mg tablet 10 mg PO DAILY 10/29/22 01/23/23 History (Jardiance) fluticasone propionate 45 2 inh inhalation BID 10/29/22 01/23/23 History mcg-salmeterol 21 mcg/actuation HFA inhaler (Advair HFA) folic acid 1 mg tablet 1 mg PO DAILY 10/29/22 01/23/23 History potassium chloride 10 mEq 10 meq PO DAILY 10/29/22 01/23/23 History capsule,extended release torsemide 20 mg tablet 20 mg PO BID 10/29/22 01/17/23 History metoprolol succinate 25 mg 12.5 mg PO DAILY PRN PRN 11/23/22 01/23/23 History tablet,extended release 24 hr (Toprol XL) carvedilol 3.125 mg tablet 3.125 mg PO BID #60 tabs 11/29/22 01/23/23 Rx liraglutide 0.6 mg/0.1 mL (18 mg/3 1.8 mg (0.3 mL) subcut DAILY #0 mL 11/29/22 01/23/23 Rx mL) subcutaneous pen injector (Victoza 3-Tanmay) naloxone 4 mg/actuation nasal 4 mg intranasal Q2-3M PRN #2 ea 11/29/22 01/23/23 Rx spray (Narcan) pantoprazole 40 mg tablet,delayed 40 mg PO BID #60 tabs 11/29/22 01/23/23 Rx release (Protonix) ferrous sulfate 325 mg (65 mg 325 mg PO BID 12/15/22 01/23/23 History iron) tablet,delayed release gabapentin 600 mg tablet mg PO TID 12/15/22 01/13/23 History levetiracetam 1,000 mg tablet 1,000 mg PO Q12H #60 tabs 12/15/22 01/23/23 Rx baclofen 10 mg tablet 10 mg PO TID PRN #30 tabs 12/16/22 01/23/23 Rx cyclobenzaprine 10 mg tablet 10 mg PO TID PRN muscle spasm #20 12/22/22 01/23/23 Rx tabs ibuprofen 600 mg tablet 600 mg PO TID PRN pain #30 tabs 12/22/22 01/23/23 Rx cefadroxil 500 mg capsule 500 mg PO BID #28 caps 01/11/23 01/23/23 Rx clindamycin HCl 150 mg capsule 450 mg PO TID #63 caps 01/12/23 01/23/23 Rx acetaminophen 500 mg tablet 1,000 mg PO TID 01/17/23 01/23/23 History Exam Narrative Exam Narrative: General: Pleasant anxious tearful middle-aged female, A&Ox3, sitting up in bed Neurological: A&Ox3, no focal deficits Psychiatric: Anxious/tearful Skin: R knee incision with wound vac in place, otherwise dry/intact HEENT: Atraumatic, normocephalic, EOMI, MMM, no submandibular or cervical lymphadenopathy, no goiter or JVD Cardiovascular: RRR, no m/r/g Lungs: CTAB Gastrointestinal: RUQ TTP Genitourinary: deferred Extremities: R knee with a wound vac attached; otherwise, no edema/clubbi ng/cyanosis of BLEs, no lesions on B feet. Results Labs Labs: US abdomen: Hepatomegaly and fatty infiltration of the liver. Time Spent Time spent with Patient: 40-54 minutes Time was spent: preparing to see the patient(eg.review tests), obtaining and/or reviewing separately otained hiistory, ordering medications,tests, procedures, referring, communicating with other health medicare biller, indepentently interpreting results, counseling the patient and care coordination
[2023-01-23] MEDS: Acetaminophen 325 MG TAB 975 MG PO (21:38)
[2023-01-23] MEDS: Pantoprazole 40 MG TABCR PO (21:39)
[2023-01-23] MEDS: levETIRAcetam 500 MG TAB 1000 MG PO (21:39)
[2023-01-23] MEDS: Atorvastatin 40 MG TAB 80 MG PO (21:41)
[2023-01-23] MEDS: guaiFENesin 600 MG TABCR PO (21:41)
[2023-01-23] MEDS: Gabapentin 600 MG TAB 1200 MG PO (21:41)
[2023-01-23] MEDS: Sulfameth/Trimeth DS TAB 2 TAB PO (21:42)
[2023-01-23] MEDS: Enoxaparin 30 MG/0.3 ML SYR SC (21:42)
[2023-01-23] MEDS: Budesonide/Formoterol 80/4.5 6.9 GM 60 PUFF INH IH (21:43)
[2023-01-23] MEDS: HYDROmorphone 4 MG TAB PO (21:44)
[2023-01-23 21:59] VITALS: BP 111/74; PULSE 99; RESP 16; TEMP 37.3; O2SAT 95
[2023-01-23] MEDS: Carvedilol 3.125 MG TAB PO (22:01)
[2023-01-23] MEDS: LORazepam 0.5 MG TAB PO (22:32)
[2023-01-23] MEDS: Ondansetron 4 MG/2 ML VIAL IVP (22:34)
[2023-01-23] MEDS: Normal Saline Flush 10 ML SYR IVP (22:39)
[2023-01-24] VITALS (14 sets, daily range): BP systolic 87–136; BP diastolic 54–82; PULSE 91–108; RESP 16–20; TEMP 36.5–37.4; O2SAT 93–98
[2023-01-24] MEDS: HYDROmorphone 4 MG TAB PO ×5 (01:55→21:39)
[2023-01-24] MEDS: Methocarbamol 750 MG TAB PO ×2 (06:22→11:28)
[2023-01-24] MEDS: Normal Saline Flush 10 ML SYR IVP ×5 (06:23→21:45)
[2023-01-24] MEDS: Ondansetron 4 MG/2 ML VIAL IVP ×2 (06:23→12:34)
[2023-01-24 06:42] LABS: Abs Immature Grans 0.05 10^3/uL (0.0-0.06); Absolute Basophil Count 0.05 10^3/uL (0.0-0.2); Absolute Eosinophil Count 0.55 10^3/uL (0.0-0.7); Absolute Lymphocyte Count 3.99 10^3/uL (1.2-3.4); Absolute Monocyte Count 1.27 10^3/uL (0.1-0.8); Absolute Neutrophil Count 4.58 10^3/uL (1.2-6.7); Basophils % 0.5; Eosinophils % 5.2; HCT 40.1 % (36.0-46.0); HGB 12.9 g/dL (11.2-15.7); Immature Grans % 0.5; MCH 28.4 pg (27.0-33.0); MCHC 32.2 % (32.0-36.0); MCV 88 fL (80-95); MPV 9.8 fL (8.0-11.0); Monocytes % 12.1; Neutrophils % 43.7; Platelet Count 355 10^3/uL (130-400); RBC 4.55 10^6/uL (3.93-5.22); RDW 14.8 % (11.7-14.6); RDW-SD 47.8 fL; WBC 10.49 10^3/uL (4.4-10.8)
[2023-01-24 07:04] LABS: Anion Gap 7.7 mmol/L (3-11); BUN 33 mg/dL (7-18); C-Reactive Protein 1.06 mg/dL (0.0-0.3); CO2 35.3 mmol/L (21.0-32.0); CREATININE 1.3 mg/dL (0.55-1.02); Calcium 9.1 mg/dL (8.5-10.1); Chloride 100 mmol/L (98-107); Estimated GFR 51.04 (mL/min/1.73m2); Glucose 109 mg/dL (74-106); Magnesium 2.8 mg/dL (1.8-2.4); Sodium 143 mmol/L (136-145)
[2023-01-24] MEDS: Budesonide/Formoterol 80/4.5 6.9 GM 60 PUFF INH IH ×2 (07:50→21:34)
[2023-01-24] MEDS: Gabapentin 600 MG TAB PO ×2 (08:24→11:28)
[2023-01-24] MEDS: Sulfameth/Trimeth DS TAB 2 TAB PO ×2 (08:24→21:35)
[2023-01-24] MEDS: Empaglifozin 10 MG TAB PO (08:25)
[2023-01-24] MEDS: Acetaminophen 325 MG TAB 975 MG PO ×3 (08:25→21:36)
[2023-01-24] MEDS: Magnesium Oxide 400 MG TAB PO (08:25)
[2023-01-24] MEDS: Pantoprazole 40 MG TABCR PO ×2 (08:25→21:39)
[2023-01-24] MEDS: guaiFENesin 600 MG TABCR PO ×2 (08:25→21:38)
[2023-01-24] MEDS: Folic Acid 1 MG TAB PO (08:25)
[2023-01-24] MEDS: Clopidogrel 75 MG TAB PO (08:25)
[2023-01-24] MEDS: Potassium Chloride 20 MEQ TABCR PO ×2 (08:26→21:38)
[2023-01-24] MEDS: LORazepam 0.5 MG TAB PO ×3 (08:26→22:11)
[2023-01-24] MEDS: levETIRAcetam 500 MG TAB 1000 MG PO ×2 (08:26→21:37)
[2023-01-24] MEDS: Aspirin E.C. 81 MG TABEC PO (08:26)
[2023-01-24] MEDS: Citalopram 20 MG TAB PO (08:26)
[2023-01-24] MEDS: Enoxaparin 30 MG/0.3 ML SYR SC ×2 (08:27→21:39)
[2023-01-24] MEDS: Methadone Liquid 10 MG/ML 130 MG PO (08:34)
[2023-01-24] MEDS: nitroGLYcerin 0.4 MG TAB SL ×2 (08:39→09:10)
[2023-01-24] MEDS: Insulin Aspart 300 UNITS/3 ML PEN SC ×2 (08:41→12:26)
[2023-01-24] MEDS: HYDROmorphone 2 MG/ML SYR 1 MG IVP ×2 (09:28→13:52)
[2023-01-24] MEDS: Carvedilol 3.125 MG TAB PO ×2 (09:28→21:39)
[2023-01-24] MEDS: Torsemide 20 MG TAB 40 MG PO (10:10)
--- NOTE | 2023-01-24 10:54 | PT.INNT ---
PT Notes Visit Reasons: Cellulitis,R knee wound dehiscence Patient was approached for PT evaluation and stated that she just had a seizure at 10:34 AM while she was talking with her significant other on the phone. She did not press her call button after the episode as she forgot. She stated that she was going to rest after she talked with her SO and asked if PT could come back later this afternoon instead. Nurse Debi was notified about the seizure episode and the patient's refusal for evaluation this morning. Another attempt will be made this afternoon for PT evalaution, as ordered.
--- NOTE | 2023-01-24 14:47 | IN_ITS ---
Date of service: 01/24/23 Time of Service: 14:17 PT Notes Visit Reasons: Cellulitis,R knee wound dehiscence Physical Therapy Swing Bed level I Initial Evaluation Date: 01/24/2023 Referring Doctor: Brii Baeza MD PT Orders: PT CONSULT: Limited ability Precautions: Fall. Activity as tolerated. WBAT on the R LE with FWW. Wound vacuum in place. On oxygen supplementation at 2.5L/minute via NC. Patient Profile/Admitting Diagnosis: Aracelis is a 47-year-old female with past medical history significant for PTSD, opioid dependence, and RAQUEL who diagnosed with right knee surgical wound dehiscence and infection status post irrigation and debridement with wound vacuum application on 01/18/2023. Patient is status post right IM fixation of right tibia and fibular shaft fracture on 11/24/2022. Patient is admitted to swing bed level 1 for management of surgical wound dehiscence and infection, RUQ pain, ischemic cardiomyopathy and right leg pain. PMHX: All Active Problems?(Updated 01/22/23 @ 18:58 by Brii Baeza MD) RUQ pain (Acute) Discharge planning issues (Acute) DVT prophylaxis (Acute) Right leg pain (Acute) Surgical wound infection (Acute) Surgical wound dehiscence (Acute) Fatigue (Acute) Polypharmacy (Acute) Fracture of tibial shaft, right, closed (Acute) Cellulitis of right leg (Acute) Opioid dependence (Chronic) Recurrent episodes of unresponsiveness (Acute) Syncope (Chronic) Closed fracture of right fibula and tibia (Acute) Closed fracture of shaft of right tibia and fibula (Acute 11/23/22) s/p IMN of Right Tibia - 11/24/22QT prolongation (Chronic) Nonspecific paroxysmal spell (Acute) Episode of unresponsiveness (Acute) Chronic systolic CHF (congestive heart failure) (Chronic) Ischemic cardiomyopathy (Chronic) Obstructive sleep apnea (Chronic) Hallucinations (Acute) Chronic respiratory failure with hypoxia (Chronic) Fracture of finger, left (Acute) Syncopal episodes (Chronic) Observed seizure-like activity (Acute) Opioid dependence on agonist therapy (Acute) Leg wound, left (Acute) Facial palsy (Acute) Pulmonary HTN (Acute) Heart failure (Acute) 09/02/21 with [place] low EF Vertigo (Acute) GERD (gastroesophageal reflux disease) (Chronic) Essential hypertension (Acute) Asthma (Chronic) Depression (Chronic) PTSD (post-traumatic stress disorder) (Chronic) Tobacco abuse disorder (Acute) Hypokalemia (Acute) Chronic gout (Acute) Hyperlipidemia (Acute) Diabetic peripheral neuropathy (Acute) Type 2 diabetes mellitus (Chronic) Medical History?(Updated 01/22/23 @ 18:58 by Brii Baeza MD) COVID was vaccinated but contracted Covid 06/22 History of gastrointestinal ulcer Non-STEMI (non-ST elevated myocardial infarction) 09/02/21 Surgical History? H/O bone graft left knee H/O shoulder surgery x4 and ending with a full replacement H/O total hysterectomy History of appendectomy History of colonoscopy History of esophagogastroduodenoscopy (EGD) gastritis with gastric ulcersPrevious section x4 delivery Social History/Home Situation: Currently unhoused. Working with CM for a safe disposition at this time. Uses crutches to get in and around previous residence after surgery back in November of 2022. Equipment Owned/DME: FWW, [employer]AN SUBJECTIVE: Teary-eyed over her current situation and what the future holds for her and her kids. Misses her kids so much. Reports pain in R leg and foot at 8-9/10. Nurse Debi aware and managing. Complains of nausea but is wiling to work with PT for initial evaluation. Has had difficulty with wearing boots due to swelling which patietn states that has not worsened since she came in. Does not have the ankle stabilizing orthosis that was given to her previously, she adds that said orthosis digs into her skin and adds to her discomfort. OBJECTIVE: General Observation: Wound vacuum in place. Oxygen supplementation at 2 L/nuvia te. Distraught over her situation and her limited ability to see her kids due to her current hospitalization. Some swelling noted in R leg and foot Mental Status: Alert and oriented x4 Pain: 8-9/10 in the R leg with weight bearing Vital Signs: Closely monitored by nursing staff ROM: Right Lower Extremity: Hip flexion WFL. Hip abduction WFL. Knee flexion WFL. Ankle dorsiflexion WFL. Ankle plantarflexion WFL. Left Lower Extremity: Hip flexion WFL. Hip abduction WFL. Knee flexion WFL. Ankle dorsiflexion to neutral only. Ankle plantarflexion WFL. Strength: Right Lower Extremity: Hip flexors 4-/5. Hip abductors 4/5. Knee flexors 4/5. Knee extensors 4-/5. Ankle dorsiflexors 3-/5. Ankle plantarflexors 4/5. Left Lower Extremity:Hip flexors 5/5. Hip abductors 5/5. Knee flexors 5/5. Knee extensors 5/5. Ankle dorsiflexors 5/5. Ankle plantarflexors 5/5. Sensation: Intact as to pain and light pressure in bilateral lower extremities Bed Mobility/Transfers: Rolling independent Supine to sit independent Sit to supine independent Sit to stand independent Stand to sit independent Bed to chair independent Chair to bed independent Gait: Tolerated level surface ambulation of 80 feet using FWW with WBAT on the R LE. Favoring R LE due to increased pain report by bending trunk forward and to the L slightly. Nausea did not worsen but pain level in the middle and distal third of the R leg worsened, limiting distance covered. Balance: Static Sitting: Normal Dynamic Sitting: Normal Static Standing: Fair Dynamic Standing: Fair Special Tests: Mobility Limitations Standardized Measure [facility] AM-PAC 6 clicks Basic Mobility Inpatient Short Form: Raw Score: 23 CMS Score: 11% defciit Informed Consent/Education: Patient was instructed in purpose of PT consult and plan of care. Agreeable to proceed with established PT POC to achieve personal goals. Assessment: Will look into getting patient a bigger sized ASO for her R ankle for additional support to reduce pain from undue compression. Pain level, high anxiety, and emotional lability may limit ability of patient to consistently fully participate in therapy. Will ensure that pre-medication for pain is done for PT sessions. Patient presents with clinical signs and symptoms consistent with current/admitting diagnoses that have resulted to mobility limitations, gait instability, generalized weakness, and overall ADL decline as demonstrated by the following impairment level findings: 1. Decreased strength to R LE major muscle groups 2. Impaired sitting/standing balance 3. Impaired activity tolerance 4. Limitation of joint range of motion in R leg 5. Swelling in R leg Impairments are contributing to the following functional limitations: 1. Difficulty with ambulation without assistive device 2. Increased completion time for mobility ADL performance 3. Increased risk for falls Patient is assessed as a 74322 moderate complexity based on the following: History: 47-year-old female with past medical history as indicated above Examination: Demonstrable impairment in strength, balance, and mobility level with underlying impairments and functional limitations as exhibited above as well as deficit score of 11% utilizing the [facility] Mobility Inpatient Short Form Presentation: Evolving Decision Makin moderate complexity Goals: Goals X1 week 1. Supine-Sit independent 2. Sit-Supine independent 3. Sit-Stand independent 4. Stand-Sit independent with FWW 5. Bed-Chair independent with FWW 6. Chair-Bed independent with FWW 7. Independent gait on level surface with use of FWW for at least 80 feet without report of pain nor dyspnea 8. Independent with home exercise program 9. Good static and dynamic standing balance/tolerance PLAN OF CARE/TREATMENT PLAN: 1-2x/day, 7 days/week x 1 week. Plan of care has been reviewed with the ENGINEER STEAM providing the service under Physical Therapy direction. Pre-medicate for pain to maximize session participation. Utilize isometric exercises for the ankle and knee as needed to facilitate relaxation of guarding R leg and ankle muscles. Emphasize seated/NWB exercises to strengthen hip and knee musculature as tolerated. Incorporate chest expansion exercises and deep breathing activities to maximize ventilatory function and reduce fatigue. Progress safe strategies for mobility level using the least restrictive mobility device. DISCHARGE RECOMMENDATIONS: [] Home with no services [] [X] Home with services. Patient will benefit from home health PT services in order to progress mobility level using least restrictive assistive ambulatory device, assess home safety, identify additional equipment needs, and establish a functional maintenance program that will increase ability of patient to remain at home. [] Home with outpatient PT [] [] SNF for continued rehabilitation [] [] [facility] [] [] SNF versus LTC based on ability to participate and progress [] TREATMENT CODE/TIME: 42734 x 20 minutes, 31377 x 10 minutes beginning at 14:17 PM. Thank you for the opportunity to participate in the care of this patient. Patricia Ribeiro PT, DPT, CLT [facility] [place], [place]
--- NOTE | 2023-01-24 15:54 | CM.SWINGPC ---
- If Service Date Differs Date of service: 01/24/23 Time of Service: 15:54 Swingbed Plan of Care Plan of care: SWING BED PROGRAM ACTIVITIES/DISCHARGE PLAN OF CARE ACTIVITIES PLAN Date: 01/24/23 Identified Need: Life enrichment during extended hospitalization Intervention/Plan: Activity program offerings, visitation, television, reiki, CART. Behavioral plan developed and signed by December: witnessed by DEVAN Luna NS. Initials: [facility] DISCHARGE PLAN Date: 01/24/23 Identified Need: Wound care, Disposition Intervention/Plan: Referrals: [facility], [facility], [facility], blu call to [phone] for disposition. Dependent on self care needs upon discharge; trial period of oral medications currently; Aracelis remains medically fragile. With further stabilization, anticipate dc to community with home health services and community WRAP. Initials: [facility]
--- NOTE | 2023-01-24 15:57 | PDOC.ERCMIN ---
- If Service Date Differs Date of service: 01/24/23 Time of Service: 15:57 Care Management Initial Assess REASON FOR HOSPITALIZATION:: Cellulitis, R knee wound dihiscence
[2023-01-24] MEDS: Trimethobenzamide 200 MG/2 ML VIAL IM (16:32)
[2023-01-24 17:39] LABS: *AMPHETAMINES SCREEN URINE Negative (Negative); *BARBITURATES SCREEN URINE Negative (Negative); *BENZODIAZEPINES SCREEN URINE Negative (Negative); Cannabinoids THC Negative (Negative); Cocaine Screen,Urine Negative (Negative); METHADONE URINE SCREEN Positive (Negative); OPIATES URINE SCREEN Positive (Negative)
[2023-01-24 17:40] LABS: Tricyclic Antidepressants Negative (Negative)
--- NOTE | 2023-01-24 19:45 | W.PM.PROGNOT ---
Date of Service Date of service: 01/24/23 Time of Service: 19:46 Subjective Subjective Interval history since last seen: Patient seen briefly for what was reported as L-sided chest pain. The patient described a L-sided chest pain radiating down her LUE and up into her neck and face. This may have responded somewhat to nitroglyerin, but the patient then explained that actually the pain feels like heat and her skin is TTP. The pain was actually in the distribution of trigeminal neuralgia on her face. The pain got better after gabapentin and dilaudid. I do not feel today's episode of the pain was cardiac. Objective Last Vital Signs Temp 36.5 C 01/24/23 15:10 Pulse 94 H 01/24/23 15:10 Resp 18 01/24/23 15:10 BP 136/82 01/24/23 15:10 Pulse Ox 94 01/24/23 15:10 Laboratory Results - last 24 hr 01/24/23 01/24/23 01/24/23 06:10 06:10 16:43 WBC 10.49 RBC 4.55 Hgb 12.9 Hct 40.1 MCV 88 MCH 28.4 MCHC 32.2 RDW 14.8 H Plt Count 355 MPV 9.8 Immature Gran % 0.5 Neutrophils % 43.7 Lymphocytes % 38.0 Monocytes % 12.1 Eosinophils % 5.2 Basophils % 0.5 Nucleated RBC % 0.0 Absolute Neutrophils 4.58 Absolute Lymphocytes 3.99 H Absolute Monocytes 1.27 H Absolute Eosinophils 0.55 Absolute Basophils 0.05 Sodium 143 Potassium 4.0 Chloride 100 Carbon Dioxide 35.3 H Anion Gap 7.7 BUN 33 H Creatinine 1.3 H Est GFR (CKD-EPI 2020) 51.04 Glucose 109 H Calcium 9.1 Magnesium 2.8 H C-Reactive Protein 1.06 H Urine Opiates Screen Positive A Urine Methadone Screen Positive A Ur Barbiturates Screen Negative Ur Tricyclics Screen Negative Ur Amphetamines Screen Negative U Benzodiazepines Scrn Negative Urine Cocaine Screen Negative Ur THC Screen Negative Time Spent with Patient Time Spent with Patient: <25 minutes Time was spent: preparing to see the patient(eg.review tests), obtaining and/or reviewing separately otained hiistory, ordering medications,tests, procedures, referring, communicating with other health manager medicare marketing, indepentently interpreting results, counseling the patient and care coordination
[2023-01-24] MEDS: Gabapentin 600 MG TAB 1200 MG PO (21:35)
[2023-01-24] MEDS: Atorvastatin 40 MG TAB 80 MG PO (21:37)
--- NOTE | 2023-01-24 23:58 | NUR.NOTE ---
@around 2134, this RN was assessing pt. Pt AAOX4 and reported pain 8/10 - scheduled and prn meds administered see NOV. While this RN was auscultating heart, pt paused and started to shake upper extremeties while slightly leaning to the right. This RN asked pt if she was ok, pt reported this happens sometimes, it is my syncopal episode, that was what caused me to fall and broke my knee. This RN did not note any increase in HR or abnormal sounds during the episode. This RN explained to pt that this was not typical manifestation of syncopal episodes but rather a manifestation of petit mal seizures. This RN did a manual BP on pt and during procedure pt had another episode. BP was 102/74; this patient was aware that she was having these episodes. This RN verbalized to pt that the MD will be notified and will check to see if pt is due for prn lorazepam. Pt stated yes please, this has been happening a lot; I guess you are the taye one to see it then pt had two more episodes. This RN made charge nurse aware and administered prn lorazepam, no other episodes noted after administration of prn lorazepam. Nursing Note:
[2023-01-25] MEDS: Methocarbamol 750 MG TAB PO ×2 (03:02→23:57)
[2023-01-25] MEDS: HYDROmorphone 4 MG TAB PO ×4 (03:02→20:37)
[2023-01-25] MEDS: Ondansetron 4 MG/2 ML VIAL IVP ×3 (04:41→20:37)
[2023-01-25 06:51] LABS: Anion Gap 4.1 mmol/L (3-11); BUN 28 mg/dL (7-18); C-Reactive Protein 0.83 mg/dL (0.0-0.3); CO2 33.9 mmol/L (21.0-32.0); CREATININE 1.3 mg/dL (0.55-1.02); Calcium 8.8 mg/dL (8.5-10.1); Chloride 101 mmol/L (98-107); Estimated GFR 51.04 (mL/min/1.73m2); Glucose 220 mg/dL (74-106); Potassium 4.2 mmol/L (3.5-5.1); Sodium 139 mmol/L (136-145)
[2023-01-25 08:01] VITALS: BP 104/70; PULSE 95; RESP 19; TEMP 37; O2SAT 96
[2023-01-25] MEDS: Methadone Liquid 10 MG/ML 130 MG PO (08:36)
[2023-01-25] MEDS: Acetaminophen 325 MG TAB 975 MG PO ×3 (08:37→20:24)
[2023-01-25] MEDS: Magnesium Oxide 400 MG TAB PO (08:37)
[2023-01-25] MEDS: Folic Acid 1 MG TAB PO (08:37)
[2023-01-25] MEDS: Clopidogrel 75 MG TAB PO (08:37)
[2023-01-25] MEDS: Gabapentin 600 MG TAB PO ×2 (08:37→11:19)
[2023-01-25] MEDS: Pantoprazole 40 MG TABCR PO ×2 (08:37→20:24)
[2023-01-25] MEDS: levETIRAcetam 500 MG TAB 1000 MG PO ×2 (08:38→20:24)
[2023-01-25] MEDS: Citalopram 20 MG TAB PO (08:39)
[2023-01-25] MEDS: Aspirin E.C. 81 MG TABEC PO (08:39)
[2023-01-25] MEDS: guaiFENesin 600 MG TABCR PO ×2 (08:40→20:25)
[2023-01-25] MEDS: Carvedilol 3.125 MG TAB PO ×2 (08:40→20:24)
[2023-01-25] MEDS: Empaglifozin 10 MG TAB PO (08:40)
[2023-01-25] MEDS: Enoxaparin 30 MG/0.3 ML SYR SC ×2 (08:41→20:25)
[2023-01-25] MEDS: Insulin Aspart 300 UNITS/3 ML PEN SC ×3 (08:48→12:46)
[2023-01-25] MEDS: Budesonide/Formoterol 80/4.5 6.9 GM 60 PUFF INH IH ×2 (09:00→21:14)
[2023-01-25] MEDS: Torsemide 20 MG TAB 40 MG PO (09:06)
[2023-01-25] MEDS: Mylanta Suspension 30 ML CUP PO (09:06)
[2023-01-25] MEDS: Potassium Chloride 20 MEQ TABCR PO ×2 (09:07→20:24)
[2023-01-25] MEDS: Sulfameth/Trimeth DS TAB 2 TAB PO ×2 (09:07→20:24)
[2023-01-25] MEDS: Normal Saline Flush 10 ML SYR IVP ×2 (11:19→13:40)
[2023-01-25] MEDS: LORazepam 0.5 MG TAB PO (11:34)
[2023-01-25] MEDS: diphenhydrAMINE 50 MG/ML VIAL 25 MG IVP (13:39)
[2023-01-25] MEDS: Prochlorperazine 10 MG/2 ML VIAL IVP (13:41)
--- NOTE | 2023-01-25 14:03 | PDOC.CMPRO ---
- If Service Date Differs Date of service: 01/25/23 Time of Service: 11:00 Care Management Progress Note S/O: Aracelis was sitting up in bed when CM met with her. She is awake and engages in conversation. Her 13 year old daughter visited this morning for approximately 1 hour, however the visitation was limited because her sister in law was unable to accompany the minor child per visitor policy. Although Aracelis expresses her frustration, she verbalizes understanding and agreement for future visitations. Aracelis had Reiki this morning after her daughter left and reports that it reduced her anxiety and she almost made her fall asleep. CM will continue to follow. A: 47 year old female admitted to [facility] at [facility] on 01/23/23 for Right surgical wound infection requiring wound vac. P: Referrals: [facility], [facility], [facility], [facility] call to [phone] for disposition. Dependent on self care needs upon discharge; trial period of oral medications currently; Aracelis remains medically fragile. With further stabilization, anticipate dc to community with home health services and community WR[facility].
--- NOTE | 2023-01-25 14:23 | PT.INTREAT ---
Date of service: 01/25/23 Time of Service: 11:45 PT Notes Visit Reasons: Cellulitis,R knee wound dehiscence Inpatient Physical Therapy Treatment Note [facility] Date: 01/25/23 PRECAUTIONS: Fall.? Activity as tolerated.? WBAT on the R LE with FWW.? Wound vacuum in place.? On oxygen supplementation at 2.5L/minute via NC. SUBJECTIVE: Patient reports feeling sad today, reports frustration with being accused of having drugs brought to her by family. Reports no pain at rest. Declines to use O2 when walking. OBJECTIVE: PAIN: Throbbing pain in LE reported with walking BED MOBILITY/TRANSFERS Rolling L/R: standby Supine-sit: standby Sit-supine: standby Sit-stand: CGA Stand-sit: CGA Bed-Chair: CGA with verbal cues for safety Chair-bed: CGA with verbal cues for safety GAIT Assistive Device: front wheeled walker Weight bearing: as tolerated Assist: contact guard Distance: 30 feet Deviation: Patient reports increasing pain, dizziness, lightheadedness with walking. Posture stooped forward, hyperkyphotic, leaning left. Shuffling gait with little to no foot clearance and a pronounce shortened stride length on one side in a step-to pattern. ASSESSMENT: Patient agreeable to see therapist again in the afternoon. Reports she will be unwilling to do that again soon, indicating the walk. PLAN: Continue with plan of care to facilitate increased functional mobility and independence. TREATMENT CODE/TIME: 04461 TherAct 15 minutes, 25021 Gait 18 minutes.
--- NOTE | 2023-01-25 15:03 | PGE_ITS ---
Date of Service Date of service: 01/25/23 Time of Service: 16:52 Assessment and Plan Assessment and plan (1) Surgical wound infection: Status: Acute (2) Surgical wound dehiscence: Status: Acute (3) Closed fracture of shaft of right tibia and fibula: Status: Acute Assessment and plan: Plan: Ms. Monique is a 47-year-old female who is post-op day 7 status post I&D of right lateral knee wound with wound vac placement on 01/18/23; she is status post right IM fixation of right tibia fracture on 11/24/22. Had extensive conversation with patient regarding need to continue with primarily oral narcotics. Had additional conversation with patient regarding muscle discomfort. Has been on lorazepam as needed. Recommend continuing to relax muscles as much as possible and can support leg with pillows to aide. Wound was assessed and new wound vac dressing was applied by provider with nursing staff and Annetta Lazar PA-C. Wound vac was set to pressure 125. Will continue with dressing changes three times weekly by nursing staff. Order was placed for nursing staff to complete wound vac changes three times weekly - pressure at 125 mmHg; due to outpatient wound vac in place will continue with using her outpatient supplies - will continue to get hydromorphone IV for wound vac changes. Recommend applying lidocaine to wound vac sponge for several minutes prior to changing. Patient has been on oral Bactrim DS BID - will continue for full 14 day course. CRP trending down - today's CRP was 0.83 H compared to her 1.06 H on 01/24/23 Will continue with swing bed status on hospitalist service - will continue to consult for wound management Subjective Subjective Interval history since last seen: Ms. Monique is a 47-year-old female who is post op day 7 status post I&D of right lateral knee wound with wound vac placement on 01/18/23; she is status post right IM fixation of right tibia fracture on 11/24/22. Patient is sleeping through majority of visit. Does not report significant discomfort. Continues to be managed on oral hydromorphone; received one IV dose prior to wound vac change. She has continued with baseline methadone. Exam Const General: cooperative and no acute distress Resp Effort & Inspection: normal respiratory effort and able to speak in complete sentences Extrem Other: Brief examination of right lower extremity: Wound VAC is in place with intact and dry dressing. Skin about lower leg is intact without significant signs of erythema or calor. Patient is able to demonstrate toe flexion and extension without issue. Patient is moves her foot and toes without discomfort when briefly talking with provider. No drainage is noted in wound vac tubing at time of visit. Once wound vac was removed the wound was measured to be 4.8 cm x 2.8 cm at maximum height with 0.5 cm of depth. Edges of wound were without significant signs of erythema and no signs of purulent discharge were noted. Wound bed had granulation tissue without signs of significant fibrous tissue or purulent discharge. Objective Last Vital Signs Temp 98.6 F 01/25/23 08:01 Pulse 60 01/25/23 10:20 Resp 19 01/25/23 08:01 BP 83/31 L 01/25/23 10:20 Pulse Ox 96 01/25/23 08:01 Laboratory Results - last 24 hr 01/24/23 01/25/23 16:43 06:00 Sodium 139 Potassium 4.2 Chloride 101 Carbon Dioxide 33.9 H Anion Gap 4.1 BUN 28 H Creatinine 1.3 H Est GFR (CKD-EPI 2020) 51.04 Glucose 220 H Calcium 8.8 C-Reactive Protein 0.83 H Urine Opiates Screen Positive A Urine Methadone Screen Positive A Ur Barbiturates Screen Negative Ur Tricyclics Screen Negative Ur Amphetamines Screen Negative U Benzodiazepines Scrn Negative Urine Cocaine Screen Negative Ur THC Screen Negative Time Spent with Patient Time Spent with Patient: 25-34 minutes Time was spent: obtaining and/or reviewing separately otained hiistory, ordering medications,tests, procedures, referring, communicating with other health healthcare management consultant, indepentently interpreting results and counseling the patient
[2023-01-25] MEDS: HYDROmorphone 2 MG/ML SYR 1 MG IVP (15:32)
--- NOTE | 2023-01-25 16:56 | NT_ITS ---
PT Notes Visit Reasons: Cellulitis,R knee wound dehiscence Patient is sleeping soundly despite multiple attempts to wake her for therapy, i ncluding speaking loudly and joint compressions, shoulder shakes. Per RN this is an expected reaction to the IV pain meds the patient receives prior to dressing changes.
[2023-01-25] MEDS: Atorvastatin 40 MG TAB 80 MG PO (20:24)
[2023-01-25] MEDS: Gabapentin 600 MG TAB 1200 MG PO (20:25)
[2023-01-25 23:58] VITALS: BP 94/62; PULSE 93; RESP 18; TEMP 36.4; O2SAT 94
[2023-01-26] MEDS: HYDROmorphone 4 MG TAB PO ×5 (03:12→22:54)
[2023-01-26] MEDS: Prochlorperazine 10 MG/2 ML VIAL IVP ×3 (03:30→13:10)
[2023-01-26] MEDS: Ondansetron 4 MG/2 ML VIAL IVP ×2 (06:49→18:27)
[2023-01-26 07:41] VITALS: BP 107/65; PULSE 87; RESP 16; TEMP 36.6; O2SAT 91
[2023-01-26] MEDS: Pantoprazole 40 MG TABCR PO ×2 (07:46→19:41)
[2023-01-26] MEDS: levETIRAcetam 500 MG TAB 1000 MG PO ×2 (07:46→19:40)
[2023-01-26] MEDS: Gabapentin 600 MG TAB PO ×2 (07:47→13:11)
[2023-01-26] MEDS: Insulin Aspart 300 UNITS/3 ML PEN SC ×6 (07:59→17:12)
[2023-01-26] MEDS: Enoxaparin 30 MG/0.3 ML SYR SC ×2 (08:00→19:39)
[2023-01-26] MEDS: Sulfameth/Trimeth DS TAB 2 TAB PO ×2 (08:01→19:41)
[2023-01-26] MEDS: guaiFENesin 600 MG TABCR PO ×2 (08:02→19:41)
[2023-01-26] MEDS: Magnesium Oxide 400 MG TAB PO (08:02)
[2023-01-26] MEDS: Torsemide 20 MG TAB 40 MG PO (08:03)
[2023-01-26] MEDS: Empaglifozin 10 MG TAB PO (08:03)
[2023-01-26] MEDS: Acetaminophen 325 MG TAB 975 MG PO ×3 (08:03→19:40)
[2023-01-26] MEDS: Folic Acid 1 MG TAB PO (08:03)
[2023-01-26] MEDS: Potassium Chloride 20 MEQ TABCR PO ×2 (08:04→19:39)
[2023-01-26] MEDS: Aspirin E.C. 81 MG TABEC PO (08:04)
[2023-01-26] MEDS: Carvedilol 3.125 MG TAB PO ×2 (08:04→19:40)
[2023-01-26] MEDS: Citalopram 20 MG TAB PO (08:05)
[2023-01-26] MEDS: Clopidogrel 75 MG TAB PO (08:12)
[2023-01-26] MEDS: Methadone Liquid 10 MG/ML 130 MG PO (08:12)
[2023-01-26] MEDS: Budesonide/Formoterol 80/4.5 6.9 GM 60 PUFF INH IH ×2 (08:20→19:45)
[2023-01-26] MEDS: Normal Saline Flush 10 ML SYR IVP ×3 (13:00→18:29)
[2023-01-26] MEDS: diphenhydrAMINE 50 MG/ML VIAL 25 MG IVP (13:09)
--- NOTE | 2023-01-26 14:19 | PT.INTREAT ---
Date of service: 01/26/23 Time of Service: 10:07 PT Notes Visit Reasons: Cellulitis,R knee wound dehiscence Inpatient Physical Therapy Treatment Note [facility] Date: 01/26/23 PRECAUTIONS: SUBJECTIVE: Patient reports feeling very tired, leg hurts a lot, wound vac was put on upside down such that hose piece is pointing up towards knee But I'm not going to say anything about it until they change it again. Also reports continued pain on right side of abdomen, better than yesterday, but it still hurts. Does not believe RN came in yesterday to check on it after I reported it. Reports diarrhea and being put in diapers because she couldn't make it to the commode in time - blames the antibiotic for the diarrhea. Quite distressed at being made to wear incontinence brief, then admits it is preferred over having incontinence episode in the bed. OBJECTIVE: Confirmed with RN that the abdomen was in fact checked yesterday, scanned, urine and stool tests run. Current hypothesis is that patient's snack food / milk intake is causing the pain and distension. Patient reports drinking roughly a gallon of milk a day at home. PAIN: Severe in leg, moderate in abdomen. BED MOBILITY/TRANSFERS Rolling L/R: not assessed Supine-sit: independent Sit-supine: independent Sit-stand: independent Stand-sit: independent Bed-Chair: independent Chair-bed: independent GAIT: refused THEREX: Breathing exercises for pain / anxiety relief (physiologic sighs) ASSESSMENT: Patient in significant pain, tends to catastrophize pain, unwilling to do much moving with therapy. PLAN: Continue plan of care as patient is able and willing TREATMENT CODE/TIME: 94406 TherEx 17 minutes
--- NOTE | 2023-01-26 15:10 | PTTR_ITS ---
Date of service: 01/26/23 Time of Service: 14:39 PT Notes Visit Reasons: Cellulitis,R knee wound dehiscence Inpatient Physical Therapy Treatment Note [facility] Date: 01/26/23 PRECAUTIONS: ?Fall.? Activity as tolerated.? WBAT on the R LE with FWW.? Wound vacuum in place.? On oxygen supplementation at 2.5L/minute via NC. SUBJECTIVE: patient reports feeling ok, leg still hurts but not as much, stomach still hurts but not as much. OBJECTIVE: Patient appeared to be sleeping when therapist entered, however the patient was easily roused and seemed to be much more alert than the previous 2 treatment sessions. PAIN: Significant but improved over previous treatment sessions BED MOBILITY/TRANSFERS Rolling L/R: not observed Supine-sit: independent Sit-supine: independent Sit-stand: independent Stand-sit: independent Bed-Chair: independent Chair-bed: independent GAIT Assistive Device: front wheeled walker Weight bearing: as tolerated Assist: Contact guard Distance: 25 feet Deviation: Patient ambulates with posture leaned forward and left to minimize pressure on affected leg. Patient reports getting extremely dizzy. Shortened sta nce phase right leg. Patient declined to wear O2 for ambulation. THEREX practiced physiologic sighs (deep inhale, short inhale, long exhale) for anxiety and pain reduction. Patient reports this leaves her feeling a little lightheaded but also very relaxed. Advised patient to take 3-5 normal breaths in between sighs to minimize lightheadedness. ASSESSMENT: Patient tolerates therapy well, is resting comfortably at end up treatment session. Requests large glass of milk. PLAN: Discussed with patient that tomorrow we will try ambulation WITH O2 and see if that makes a difference in the dizziness. Will also bring wheelchair so that we can try to rest, continue. TREATMENT CODE/TIME: 17 minutes
[2023-01-26 15:12] VITALS: BP 96/62; PULSE 55; RESP 18; TEMP 37.4; O2SAT 99
[2023-01-26] MEDS: LORazepam 0.5 MG TAB PO (19:39)
[2023-01-26] MEDS: Gabapentin 600 MG TAB 1200 MG PO (19:40)
[2023-01-26] MEDS: Atorvastatin 40 MG TAB 80 MG PO (19:41)
[2023-01-26] MEDS: Methocarbamol 750 MG TAB PO (22:54)
[2023-01-27 00:44] VITALS: BP 110/70; PULSE 85; RESP 18; TEMP 36.5; O2SAT 95
[2023-01-27] MEDS: LORazepam 0.5 MG TAB PO ×3 (00:55→14:46)
[2023-01-27] MEDS: Ondansetron 4 MG/2 ML VIAL IVP ×2 (00:56→09:41)
[2023-01-27] MEDS: HYDROmorphone 4 MG TAB PO ×5 (02:32→22:44)
[2023-01-27] MEDS: Pantoprazole 40 MG TABCR PO ×2 (07:06→20:27)
[2023-01-27] MEDS: levETIRAcetam 500 MG TAB 1000 MG PO ×2 (07:30→20:27)
[2023-01-27] MEDS: Gabapentin 600 MG TAB PO ×2 (07:30→13:08)
[2023-01-27] MEDS: Enoxaparin 30 MG/0.3 ML SYR SC ×2 (07:31→20:27)
[2023-01-27 07:43] VITALS: BP 103/68; PULSE 86; RESP 18; TEMP 37; O2SAT 97
[2023-01-27] MEDS: Insulin Aspart 300 UNITS/3 ML PEN SC ×5 (07:57→17:15)
[2023-01-27] MEDS: Potassium Chloride 20 MEQ TABCR PO ×2 (08:01→20:26)
[2023-01-27] MEDS: Clopidogrel 75 MG TAB PO (08:01)
[2023-01-27] MEDS: Carvedilol 3.125 MG TAB PO ×2 (08:01→20:27)
[2023-01-27] MEDS: Folic Acid 1 MG TAB PO (08:02)
[2023-01-27] MEDS: Magnesium Oxide 400 MG TAB PO (08:02)
[2023-01-27] MEDS: guaiFENesin 600 MG TABCR PO ×2 (08:04→20:27)
[2023-01-27] MEDS: Empaglifozin 10 MG TAB PO (08:04)
[2023-01-27] MEDS: Citalopram 20 MG TAB PO (08:04)
[2023-01-27] MEDS: Sulfameth/Trimeth DS TAB 2 TAB PO ×2 (08:04→20:26)
[2023-01-27] MEDS: Torsemide 20 MG TAB 40 MG PO (08:04)
[2023-01-27] MEDS: Aspirin E.C. 81 MG TABEC PO (08:04)
[2023-01-27] MEDS: Acetaminophen 325 MG TAB 975 MG PO ×3 (08:05→20:26)
[2023-01-27] MEDS: Methadone Liquid 10 MG/ML 130 MG PO (08:12)
[2023-01-27] MEDS: Budesonide/Formoterol 80/4.5 6.9 GM 60 PUFF INH IH ×2 (08:26→19:38)
[2023-01-27] MEDS: Normal Saline Flush 10 ML SYR IVP ×3 (09:37→15:41)
[2023-01-27] MEDS: Fluticasone NASAL SPRAY 16 GM BTL NS (10:45)
[2023-01-27] MEDS: HYDROmorphone 2 MG/ML SYR 1 MG IVP (14:00)
--- NOTE | 2023-01-27 14:04 | PT.INNT ---
Date of service: 01/27/23 Time of Service: 10:21 PT Notes Visit Reasons: Cellulitis,R knee wound dehiscence Patient on the phone, wants to wait therapy until later.
--- NOTE | 2023-01-27 14:05 | PT.INTREAT ---
Date of service: 01/27/23 Time of Service: 13:13 PT Notes Visit Reasons: Cellulitis,R knee wound dehiscence Inpatient Physical Therapy Treatment Note [facility] Date: 01/27/23 PRECAUTIONS: Cellulitis,R knee wound dehiscence SUBJECTIVE: Patient reports she would rather wait until later for therapy, wishes to wait until after wound vac change as wound vac tubing is in upside down. Therapist reminds patient that the IV pain meds before the wound vac change make her sleepy. Patient agrees and consents to therapy now. OBJECTIVE: PAIN: Patient reports her leg hurts, after walking adds that her head hurts as well. BED MOBILITY/TRANSFERS Rolling L/R: Independent Supine-sit: Independent Sit-supine: Independent Sit-stand: Independent Stand-sit: Independent Bed-Chair: Independent Chair-bed: Independent GAIT Assistive Device: Front wheeled walker Weight bearing: as tolerated Assist: standby, wheelchair follow Distance: 60 feet Deviation: Reduced stance phase affected leg, posture leaning forward and away from affected leg. Patient has an episode of dizziness wherein her pallor changes noticeably, sits in wheelchair, therapist assists to elevate legs. Patient becomes teary and frustrated. THEREX Reviewed breathing exercises. ASSESSMENT: Patient resting comfortably at edge of bed at the end of the session. Reports feeling very thirsty. Reports anxiety about going home and having another episode of dizziness resulting in another fall. Reports feeling ok otherwise - leg is not worse from walking, headache had dulled some. PLAN: Continue plan of care for strength and endurance within patient tolerance. TREATMENT CODE/TIME: 45812 Gait 30, 01434 TherEx 10
--- NOTE | 2023-01-27 14:51 | CM.SBPSYCH ---
- If Service Date Differs Date of service: 01/23/23 Time of Service: 14:52 SB Psychosocial/Act.Assessment - Hospital Admission Admission Date: 01/17/23 Admission From:: Home-[place] with son and son's family. Diagnosis:: Right surgical wound infection - Swing Bed Admission Swing Bed Admit Date:: 01/23/23 Swing Bed Level of Care: Level 1/SNF - Social Supports PREVIOUS FUNCTIONAL STATUS/SOCIAL/FAMILY SUPPORTS:: Resides in [place], is . She presents after being instructed to follow-up in the ER by orthopedic surgeon. Past medical history includes type 2 diabetes which is poorly controlled, tobacco abuse disorder, PTSD, depression asthma, GERD, heart failure pulmonary hypertension, cardiomyopathy. - Prior to Admission Living Arrangements/Environment Prior to Admission:: Previously staying with son and son's family in [place]. Reports this was short term and unable to return r/t grandchild's care needs. - Education Highest Grade Completed:: Some highschool. Where did you attend School:: [employer] - Work History Employment Status:: Disabled Voacation:: Previously worked in [employer] as well as [employer] - Benefits Financial: SSI (SSDI: Disability) - Jehovah'S Witness Active Temple Member:: No Will Temple Members or Foreign Service Officer Visit:: No - Medical History PAST MEDICAL HISTORY/PAST SURGICAL HISTORY:: Medical History (Updated 01/17/23 @ 19:18 by Luis Romero MD). COVID. was vaccinated but contracted Covid 06/22. History of gastrointestinal ulcer. Non-STEMI (non-ST elevated myocardial infarction). 09/02/21. Surgical History . H/O bone graft. left knee. H/O shoulder surgery. x4 and ending with a full replacement. H/O total hysterectomy. History of appendectomy. History of colonoscopy. History of esophagogastroduodenoscopy (EGD). gastritis with gastric ulcers. Previous section. x4 delivery - Admission Data Reason for Swing Bed Admission:: Disposition support, wound care, abx monitoring Discharge Plan:: 211, service connection, home health [id number] Assessment: S/T SWB1 for disposition support once care needs and functional ability is known. Color Weigher: Yocasta Polk Date Assessment was completed:: 01/27/23
[2023-01-27 15:13] VITALS: BP 104/65; PULSE 80; RESP 18; TEMP 36.3; O2SAT 96
[2023-01-27] MEDS: Prochlorperazine 10 MG/2 ML VIAL IVP (15:40)
[2023-01-27] MEDS: diphenhydrAMINE 50 MG/ML VIAL 25 MG IVP (15:41)
[2023-01-27] MEDS: Gabapentin 600 MG TAB 1200 MG PO (20:26)
[2023-01-27] MEDS: Methocarbamol 750 MG TAB PO (20:26)
[2023-01-27] MEDS: Atorvastatin 40 MG TAB 80 MG PO (20:27)
[2023-01-27 23:32] VITALS: BP 115/72; PULSE 79; RESP 18; TEMP 36.2; O2SAT 96
[2023-01-28] MEDS: LORazepam 0.5 MG TAB PO ×2 (00:42→13:30)
[2023-01-28] MEDS: HYDROmorphone 4 MG TAB PO ×5 (04:09→21:52)
[2023-01-28 07:25] VITALS: BP 124/69; PULSE 69; RESP 18; TEMP 37.2; O2SAT 96
[2023-01-28] MEDS: Normal Saline Flush 10 ML SYR IVP ×4 (07:41→19:49)
[2023-01-28] MEDS: Enoxaparin 30 MG/0.3 ML SYR SC ×2 (07:42→19:49)
[2023-01-28] MEDS: Fluticasone NASAL SPRAY 16 GM BTL NS (07:42)
[2023-01-28] MEDS: Prochlorperazine 10 MG/2 ML VIAL IVP ×2 (07:42→20:04)
[2023-01-28] MEDS: Citalopram 20 MG TAB PO (07:43)
[2023-01-28] MEDS: Empaglifozin 10 MG TAB PO (07:43)
[2023-01-28] MEDS: Aspirin E.C. 81 MG TABEC PO (07:43)
[2023-01-28] MEDS: Pantoprazole 40 MG TABCR PO ×2 (07:43→19:52)
[2023-01-28] MEDS: levETIRAcetam 500 MG TAB 1000 MG PO ×2 (07:43→19:50)
[2023-01-28] MEDS: Acetaminophen 325 MG TAB 975 MG PO ×3 (07:43→19:50)
[2023-01-28] MEDS: guaiFENesin 600 MG TABCR PO ×2 (07:43→19:50)
[2023-01-28] MEDS: Methocarbamol 750 MG TAB PO ×2 (07:44→12:31)
[2023-01-28] MEDS: Clopidogrel 75 MG TAB PO (07:44)
[2023-01-28] MEDS: Potassium Chloride 20 MEQ TABCR PO ×2 (07:44→19:51)
[2023-01-28] MEDS: Torsemide 20 MG TAB 40 MG PO (07:44)
[2023-01-28] MEDS: Folic Acid 1 MG TAB PO (07:44)
[2023-01-28] MEDS: Carvedilol 3.125 MG TAB PO ×2 (07:44→19:50)
[2023-01-28] MEDS: Magnesium Oxide 400 MG TAB PO (07:44)
[2023-01-28] MEDS: Sulfameth/Trimeth DS TAB 2 TAB PO ×2 (07:44→19:51)
[2023-01-28] MEDS: Gabapentin 600 MG TAB PO ×2 (07:45→11:07)
[2023-01-28] MEDS: Insulin Aspart 300 UNITS/3 ML PEN SC ×5 (07:56→17:42)
[2023-01-28] MEDS: Methadone Liquid 10 MG/ML 130 MG PO (08:03)
[2023-01-28] MEDS: Budesonide/Formoterol 80/4.5 6.9 GM 60 PUFF INH IH ×2 (08:09→19:37)
--- NOTE | 2023-01-28 08:27 | PTTR_ITS ---
PT Notes Visit Reasons: Cellulitis,R knee wound dehiscence Date: 01/28/23 PRECAUTIONS: Cellulitis,R knee wound dehiscence SUBJECTIVE: Pt initially refused to participate due to pt report of having a big visit at 11am, pt eventually agreed to participating after a few minutes conversing with this therapist. OBJECTIVE: ? PAIN: pt reports 05/11 for pain initially, reports that the pain subsided after gait training 03/11 ? BED MOBILITY/TRANSFERS? Rolling L/R: Independent Supine-sit: Independent? Sit-supine: Independent ? Sit-stand: Independent? Stand-sit: Independent ? Bed-Chair: Independent ? Chair-bed: Independent ? GAIT? Assistive Device: Front wheeled walker ? Weight bearing: as tolerated Assist: SBA and tube management? Distance:? 100' feet ? Deviation: Pt antalgic on RLE. Therapeutic procedures 33971: Instruction in therapeutic exercises to develop strength and endurance, range of motion and flexibility. HEP instruction: Provided skilled instruction in proper exercise performance: Provided skilled manual cues to facilitate proper muscle recruitment and/or movement pattern: Breathing Exercises Seated hip flexion Seated knee flexion Seated/long sitting Quad sets Supine glute sets ASSESSMENT:? Pt stayed in seated at the edge of bed post session, pt in good emo tional space and reports that the RLE pain decreased a little after walking and exercise. PLAN: Continue plan of care for strength and endurance within patient tolerance. TREATMENT CODE/TIME: 41638 Gait 10, 80870 TherEx 15 (7:10- 7:35am)
[2023-01-28] MEDS: Ondansetron 4 MG/2 ML VIAL IVP (11:08)
[2023-01-28 12:52] VITALS: BP 106/71; PULSE 91; RESP 16; TEMP 37.2; O2SAT 92
--- NOTE | 2023-01-28 12:53 | NUR.NOTE ---
This telegraphic typewriter repairer was called down to room from patient's family in regards to strange behavior Family reported an increased in repeating herself mid conversation with onset of rapid side to side eye movement. Vital signs were taken and reported, SOCIAL WORKER ASSISTANT made aware.
[2023-01-28 14:56] VITALS: BP 97/61; PULSE 80; RESP 20; TEMP 37.2; O2SAT 95
[2023-01-28] MEDS: HYDROmorphone 2 MG/ML SYR 1 MG IVP (19:48)
[2023-01-28] MEDS: Atorvastatin 40 MG TAB 80 MG PO (19:50)
[2023-01-28] MEDS: Gabapentin 600 MG TAB 1200 MG PO (19:50)
[2023-01-29 00:10] VITALS: BP 103/65; PULSE 82; RESP 15; TEMP 36.4; O2SAT 94
[2023-01-29] MEDS: HYDROmorphone 2 MG/ML SYR 1 MG IVP ×3 (00:52→18:13)
[2023-01-29] MEDS: Normal Saline Flush 10 ML SYR IVP ×2 (00:52→02:01)
[2023-01-29] MEDS: Ondansetron 4 MG/2 ML VIAL IVP ×3 (02:00→22:19)
[2023-01-29] MEDS: Methocarbamol 750 MG TAB PO ×3 (02:00→13:13)
[2023-01-29] MEDS: HYDROmorphone 4 MG TAB PO ×6 (02:16→22:19)
[2023-01-29] MEDS: LORazepam 0.5 MG TAB PO ×3 (05:06→22:23)
[2023-01-29 07:33] VITALS: BP 105/71; PULSE 91; RESP 20; TEMP 37; O2SAT 96
[2023-01-29] MEDS: Enoxaparin 30 MG/0.3 ML SYR SC ×2 (07:35→21:20)
[2023-01-29] MEDS: Acetaminophen 325 MG TAB 975 MG PO ×3 (07:36→21:19)
[2023-01-29] MEDS: Carvedilol 3.125 MG TAB PO ×2 (07:36→21:20)
[2023-01-29] MEDS: levETIRAcetam 500 MG TAB 1000 MG PO ×2 (07:36→21:20)
[2023-01-29] MEDS: Potassium Chloride 20 MEQ TABCR PO ×2 (07:36→21:20)
[2023-01-29] MEDS: Torsemide 20 MG TAB 40 MG PO (07:37)
[2023-01-29] MEDS: Gabapentin 600 MG TAB PO ×2 (07:37→11:10)
[2023-01-29] MEDS: Magnesium Oxide 400 MG TAB PO (07:37)
[2023-01-29] MEDS: Sulfameth/Trimeth DS TAB 2 TAB PO ×2 (07:37→21:20)
[2023-01-29] MEDS: Aspirin E.C. 81 MG TABEC PO (07:37)
[2023-01-29] MEDS: Clopidogrel 75 MG TAB PO (07:37)
[2023-01-29] MEDS: guaiFENesin 600 MG TABCR PO ×2 (07:37→21:20)
[2023-01-29] MEDS: Citalopram 20 MG TAB PO (07:37)
[2023-01-29] MEDS: Pantoprazole 40 MG TABCR PO ×2 (07:37→21:20)
[2023-01-29] MEDS: Folic Acid 1 MG TAB PO (07:37)
[2023-01-29] MEDS: Empaglifozin 10 MG TAB PO (07:46)
[2023-01-29] MEDS: Fluticasone NASAL SPRAY 16 GM BTL NS (07:46)
[2023-01-29] MEDS: Methadone Liquid 10 MG/ML 130 MG PO (07:59)
[2023-01-29] MEDS: Insulin Aspart 300 UNITS/3 ML PEN SC ×6 (08:01→16:48)
[2023-01-29] MEDS: Budesonide/Formoterol 80/4.5 6.9 GM 60 PUFF INH IH ×2 (08:49→19:19)
--- NOTE | 2023-01-29 10:32 | PT.INTREAT ---
PT Notes Visit Reasons: Cellulitis,R knee wound dehiscence PRECAUTIONS: Cellulitis,R knee wound dehiscence SUBJECTIVE: Pt very pleasant, in a good mood, reports having a very good visit with family yesterday, pt agreed to participating with therapy. OBJECTIVE: ? PAIN: pt reports 8/10 for pain ? BED MOBILITY/TRANSFERS? Rolling L/R: Independent Supine-sit: Independent? Sit-supine: Independent ? Sit-stand: Independent? Stand-sit: Independent ? Bed-Chair: Independent ? Chair-bed: Independent ? GAIT? Assistive Device: Front wheeled walker ? Weight bearing: as tolerated Assist: SBA and tube management? Distance:? 200' feet ? Deviation: Pt antalgic on RLE. Therapeutic procedures 10265: Instruction in therapeutic exercises to develop strength and endurance, range of motion and flexibility. HEP instruction: Provided skilled instruction in proper exercise performance: Provided skilled manual cues to facilitate proper muscle recruitment and/or movement pattern: Breathing Exercises Seated hip flexion Seated knee flexion Seated/long sitting Quad sets Supine glute sets ASSESSMENT:? Pt very engaged and was able to perform activity without complaints of increased pain. pt able to perform bending activities reaching for wiring and tubes from the floor without LOB, turning activity around tight spaces was also performed safely without LOB. PLAN: Continue plan of care for strength and endurance within patient tolerance. TREATMENT CODE/TIME: 87277 Gait 10, 38928 TherEx 15 (8:45- 9:10am)
[2023-01-29 11:31] LABS: HCT 37.8 % (36.0-46.0); HGB 12.7 g/dL (11.2-15.7); MCH 29.1 pg (27.0-33.0); MCHC 33.6 % (32.0-36.0); MCV 87 fL (80-95); Platelet Count 358 10^3/uL (130-400); RBC 4.36 10^6/uL (3.93-5.22); RDW 14.6 % (11.7-14.6); RDW-SD 46.6 fL; WBC 8.85 10^3/uL (4.4-10.8)
[2023-01-29 14:59] VITALS: BP 114/76; PULSE 86; RESP 18; TEMP 36.3; O2SAT 94
[2023-01-29] MEDS: Prochlorperazine 10 MG/2 ML VIAL IVP (15:42)
[2023-01-29] MEDS: Gabapentin 600 MG TAB 1200 MG PO (21:20)
[2023-01-29] MEDS: Atorvastatin 40 MG TAB 80 MG PO (21:20)
[2023-01-30] MEDS: diphenhydrAMINE 50 MG/ML VIAL 25 MG IVP ×3 (00:40→17:56)
[2023-01-30] MEDS: Prochlorperazine 10 MG/2 ML VIAL IVP ×3 (00:41→17:57)
[2023-01-30 00:43] VITALS: BP 108/64; PULSE 85; RESP 18; TEMP 36.1; O2SAT 93
[2023-01-30] MEDS: HYDROmorphone 4 MG TAB PO ×4 (05:42→20:53)
[2023-01-30] MEDS: Ondansetron 4 MG/2 ML VIAL IVP ×2 (05:42→20:54)
[2023-01-30] MEDS: Budesonide/Formoterol 80/4.5 6.9 GM 60 PUFF INH IH ×2 (07:50→19:20)
[2023-01-30 08:09] VITALS: BP 104/70; PULSE 69; RESP 16; TEMP 36.5; O2SAT 95
[2023-01-30] MEDS: Methadone Liquid 10 MG/ML 130 MG PO (08:15)
[2023-01-30] MEDS: Carvedilol 3.125 MG TAB PO ×2 (08:16→20:20)
[2023-01-30] MEDS: Citalopram 20 MG TAB PO (08:16)
[2023-01-30] MEDS: Pantoprazole 40 MG TABCR PO ×2 (08:16→20:21)
[2023-01-30] MEDS: Empaglifozin 10 MG TAB PO (08:16)
[2023-01-30] MEDS: Torsemide 20 MG TAB 40 MG PO (08:16)
[2023-01-30] MEDS: Gabapentin 600 MG TAB PO ×2 (08:16→12:06)
[2023-01-30] MEDS: levETIRAcetam 500 MG TAB 1000 MG PO ×2 (08:17→20:20)
[2023-01-30] MEDS: guaiFENesin 600 MG TABCR PO ×2 (08:17→20:20)
[2023-01-30] MEDS: Clopidogrel 75 MG TAB PO (08:17)
[2023-01-30] MEDS: Acetaminophen 325 MG TAB 975 MG PO ×3 (08:17→20:19)
[2023-01-30] MEDS: Magnesium Oxide 400 MG TAB PO (08:17)
[2023-01-30] MEDS: Potassium Chloride 20 MEQ TABCR PO ×2 (08:17→20:21)
[2023-01-30] MEDS: Aspirin E.C. 81 MG TABEC PO (08:17)
[2023-01-30] MEDS: Sulfameth/Trimeth DS TAB 2 TAB PO ×2 (08:18→20:20)
[2023-01-30] MEDS: Folic Acid 1 MG TAB PO (08:18)
[2023-01-30] MEDS: Enoxaparin 30 MG/0.3 ML SYR SC ×2 (08:23→20:19)
[2023-01-30] MEDS: Fluticasone NASAL SPRAY 16 GM BTL NS (08:23)
[2023-01-30] MEDS: Insulin Aspart 300 UNITS/3 ML PEN SC ×3 (08:24→17:38)
[2023-01-30] MEDS: Normal Saline Flush 10 ML SYR IVP ×3 (10:27→20:21)
--- NOTE | 2023-01-30 10:50 | PT.INTREAT ---
Date of service: 01/30/23 Time of Service: 10:19 PT Notes Visit Reasons: Cellulitis,R knee wound dehiscence Inpatient Physical Therapy Treatment Note [facility] Date: 01/30/23 PRECAUTIONS: Cellulitis, R knee wound dehiscence SUBJECTIVE: Patient sitting EOB, agreeable to therapy, reports being in a lot of pain today. States that pain meds were due at 9:30. OBJECTIVE: PAIN: 9/10 reported BED MOBILITY/TRANSFERS Rolling L/R: Independent Supine-sit: Independent Sit-supine: Independent Sit-stand: Independent Stand-sit: Independent Bed-Chair: Independent Chair-bed: Independent GAIT Assistive Device: Front wheeled walker Weight bearing: as tolerated Assist: CGA Distance: 40 feet Deviation: Forward leaning posture, right knee lacking full extension, lacking foot clearance, reduced step length. Complains of pain increasing as we walk. ASSESSMENT: Patient appears to tolerate session well, however her pain does seem to limit more today than was reported over the weekend. PLAN: Continue plan of care for strengthening, functional activity tolerance. TREATMENT CODE/TIME: 68658 Gait 18 minutes
[2023-01-30 15:28] VITALS: BP 101/64; PULSE 91; RESP 20; TEMP 36.9; O2SAT 91
--- NOTE | 2023-01-30 16:57 | PT.INPN ---
Date of service: 01/30/23 Time of Service: 16:28 PT Notes Visit Reasons: Cellulitis,R knee wound dehiscence Physical Therapy Swing Bed level I Initial Evaluation Date: 01/30/2023 Dates of Service: 01/24/2023 through 01/30/2023 Referring Doctor:Gee Baeza? PT Orders: PT CONSULT: Limited ability Precautions: Fall.? Activity as tolerated.? WBAT on the R LE with FWW.? Wound vacuum in place.? On oxygen supplementation at 2.5L/minute via NC. Patient Profile/Admitting Diagnosis:? Aracelis is a 47-year-old female with past medical history significant for PTSD, opioid dependence, and RAQUEL who diagnosed with right knee surgical wound dehiscence and infection status post irrigation and debridement with wound vacuum application on 01/18/2023.? Patient is status post right IM fixation of right tibia and fibular shaft fracture on 11/24/2022.? Patient is admitted to swing bed level 1 for management of surgical wound dehiscence and infection, RUQ pain, ischemic cardiomyopathy and right leg pain. Social History/Home Situation: Currently unhoused.? Working with CM for a safe disposition at this time.? Uses crutches to get in and around previous residence after surgery back in November of 2022.? Equipment Owned/DME: FWW,? JUWAN SUBJECTIVE: Expressed anxiety over getting discharged tomorrow after her second I&D. States that she has no car, no tent, no support in as far as housing is concerned from any of her sons. Almost teary-eyed. OBJECTIVE: General Observation: Wound vacuum in place.? Oxygen supplementation at 2 L/minute.? Mental Status: Alert and oriented x4 Pain: 8-9/10 in the R leg with weight bearing Vital Signs: Closely monitored by nursing staff ROM: Right Lower Extremity: Hip flexion WFL. Hip abduction WFL. Knee flexion WFL. Ankle dorsiflexion WFL. Ankle plantarflexion WFL. Left Lower Extremity: Hip flexion WFL. Hip abduction WFL. Knee flexion WFL. Ankle dorsiflexion WFL. Ankle plantarflexion WFL. Strength: Right Lower Extremity: Hip flexors 4/5. Hip abductors 4/5. Knee flexors 4/5. Knee extensors 4-/5.? Ankle dorsiflexors 3-/5. Ankle plantarflexors 4/5. Left Lower Extremity:Hip flexors 5/5. Hip abductors 5/5. Knee flexors 5/5. Knee extensors 5/5. Ankle dorsiflexors 5/5. Ankle plantarflexors 5/5. Sensation:? Intact as to pain and light pressure in bilateral lower extremities Bed Mobility/Transfers: Rolling independent Supine to sit independent Sit to supine independent Sit to stand independent Stand to sit independent Bed to chair independent Chair to bed independent Gait:? Tolerated level surface ambulation of up to 200 feet using FWW with WBAT on the R LE.? Favoring R LE due to increased pain report by bending trunk forward and to the L slightly.? Balance:? Static Sitting: Normal Dynamic Sitting: Normal Static Standing: Fair Dynamic Standing: Fair Special Tests: Mobility Limitations Standardized Measure [facility]-PAC 6 clicks Basic Mobility Inpatient Short Form: Raw Score:? 23? CMS Score: 11% defciit ? ? ? Informed Consent/Education:? Patient was instructed in purpose of PT consult and plan of care. Agreeable to proceed with established PT POC to achieve personal goals. Assessment:?? Unsure of disposition at this time. Will need stair negotiation training prior to discharge tomorrow. Patient has 2 FWW at home at has been advised to use said DME as she will get the most stability out of it compared to crutches or canes. She also has bilateral axillary crutches that she can use once pain level decreases. Patient presents with clinical signs and symptoms consistent with current/admitting diagnoses that have resulted to mobility limitations, gait instability, generalized weakness, and overall ADL decline as demonstrated by the following impairment level findings: 1.? Impaired activity tolerance due to varying pain levels Impairments are contributing to the following functional limitations: 1.? Difficulty with ambulation without assistive device 2.? Increased completion time for mobility ADL performance 3.? Increased risk for falls Patient is assessed as a 02201 moderate complexity based on the following: History: 47-year-old female with past medical history as indicated above Examination: Demonstrable impairment in strength, balance, and mobility level with underlying impairments and functional limitations as exhibited above as well as deficit score of 11% utilizing the [facility] Mobility Inpatient Short Form Presentation: Evolving Decision Makin moderate complexity Goals: Goals X1 week 1. Supine-Sit independent MET 2. Sit-Supine independent MET 3. Sit-Stand independent MET 4. Stand-Sit independent with FWW MET 5. Bed-Chair independent with FWW MET 6. Chair-Bed independent with FWW MET 7. Independent gait on level surface with use of FWW for at least 200 feet without report of pain nor dyspnea NOT MET, CONTINUE 8. Independent with home exercise program NOT MET, CONTINUE 9. Good static and dynamic standing balance/tolerance NOT MET, CONTINUE DISCHARGE RECOMMENDATIONS: [] ? Home with no services [] [] ? Home with services.? [X] ? Home with outpatient PT. Recommend outpatient PT services in order to progress mobility level to independent without the need for any assistive device to allow for safe community ambulation and fall reduction. [] ? SNF for continued rehabilitation [] [] ? [facility] [facility] [] [] ? SNF versus LTC based on ability to participate and progress [] TREATMENT CODE/TIME: 91079 x 15 minutes beginning at 16:28 PM. Thank you for the opportunity to participate in the care of this patient. Patricia Ribeiro PT, DPT, CLT [facility] [place], [place]
--- NOTE | 2023-01-30 17:26 | DI.RAD_ITS ---
Exam(s) XR KNEE RT 2V AP,LAT EXAM: XR KNEE RT 2V AP,LAT CLINICAL HISTORY: R knee pain. TECHNIQUE: 2D digital imaging was performed. COMPARISON: CR XR KNEE RT 3V AP,LAT,KATHERINE from 12/16/2022 FINDINGS: Two views-AP and lateral: Long intramedullary blair in the tibia is again noted. Tibial plateau is intact. The oblique fracture site in the proximal diaphysis of the fibula is again noted. Exhibits some mild callus formation an d no further displacement. No abnormal osseous findings around the visualized upper aspect of the in tramedullary blair in the tibia. IMPRESSION: Mild healing of the proximal right fibular fracture. DATA REPOSITORY: RADIATION DOSE DELIVERED:
--- NOTE | 2023-01-30 17:26 | DI.RAD_ITS ---
Exam(s) XR TIB/FIB RT EXAM: XR TIB/FIB RT CLINICAL HISTORY: s/p R tib-fib frx with IMN. TECHNIQUE: 2D digital imaging was performed. COMPARISON: CR XR TIB/FIB RT from 12/16/2022 FINDINGS: Two views: Long intramedullary blair in the tibia again noted, appearing intact. Fracture fragments remain in sat isfactory position alignment some mild callus formation. Proximal diaphysis fracture fibula again no vannesa. On the lateral view there is a nondisplaced fracture of the posterior malleolus noted. IMPRESSION: Healing tibial and fibular fractures with intact hardware in the right tibia. Nondisplaced posterior malleolar fracture. DATA REPOSITORY: RADIATION DOSE DELIVERED:
--- NOTE | 2023-01-30 17:54 | W.PM.PROGNOT ---
Date of Service Date of service: 01/30/23 Time of Service: 12:35 Assessment and Plan Assessment and plan (1) Fracture of tibial shaft, right, closed: Status: Deleted Assessment and plan: There is no objective findings of concern for Aracelis's right tibia and fibula. She also mentions some right knee pain at the conclusion of the exam. I will repeat x-rays today of the tibia as well as the knee. At the previous x-rays there is already signs of early healing. There is no outward concerning features. (2) Closed fracture of shaft of right tibia and fibula: Status: Acute (3) Surgical wound infection: Status: Acute Assessment and plan: Responding very well to surgical debridement, wound VAC placement, and antibiotics. Per infection disease recommendation she is on 2 weeks of Bactrim to treat the multiple organisms, Enterobacter cloacae, Enterococcus faecalis, and Staph aureus. Synovial fluid samples from the initial debridement are without growth. She has had significant clinical improvement. Unfortunately, she has significant social limitations and currently has no available housing and those housing options which are available we will not be able to tolerate home health services and wound VAC treatments. Therefore, I recommend that we proceed with a tertiary treatment of this wound. She had significant improvements with the wound environment. The wound at the time of debridement was relatively superficial without any deep features and is shown significant and surrounding improvement. Therefore, we can proceed with a delayed primary closure. This does impart some risk of recurrence of infection. However, given the quick resolution of the other symptoms I expect this to be able to be treated in this manner without significant concern. This would alleviate the need for home health nursing as well as wound VAC changes. We will go to the OR either tomorrow or Monday. (4) Discharge planning issues: Status: Acute Assessment and plan: Currently without housing. Should be able to work with on umbrella to secure housing without home health services and wound VAC treatments. Subjective Subjective Interval history since last seen: Aracelis reports continued pain about the right leg. She has been able to tolerate the dressing changes although with IV Dilaudid. She reports improvement in her swelling. Her overall pain is improving. She remains here on swing bed status with inability to secure any housing, particularly with wound VAC treatment. She denies fevers or chills. Her most recent labs that showed significant decrease in CRP. She denies any acute changes or new issues. Exam Narrative Exam Narrative: Sitting up in the bed. No acute distress. Evaluation of the right leg shows wound VAC in appropriate position about the lateral knee. There is significant decrease in swelling about the right leg. There is minimal pitting edema. No erythema. Generalized tenderness to palpation. However, no focal areas of concern. She is able to demonstrate active knee extension and flexion as well as active ankle dorsiflexion and plantarflexion. Objective Last Vital Signs Temp 36.9 C 01/30/23 15:28 Pulse 91 H 01/30/23 15:28 Resp 20 01/30/23 15:28 BP 101/64 01/30/23 15:28 Pulse Ox 91 L 01/30/23 15:28 Time Spent with Patient Time Spent with Patient: 25-34 minutes Time was spent: preparing to see the patient(eg.review tests), obtaining and/or reviewing separately otained hiistory, ordering medications,tests, procedures, referring, communicating with other health chronic care nurse and counseling the patient
--- NOTE | 2023-01-30 18:12 | DI.VRAD_ITS ---
PROCEDURE INFORMATION: Exam: XR Right Tibia and Fibula Exam date and time: 01/30/2023 5:22 PM Age: 47 years old Clinical indication: Pain; Lower leg; Right; Prior surgery; Surgery date: 1-6 months; Surgery type: Tibial rodding; Patient HX: S/P R tib-fib FX with imn. TECHNIQUE: Imaging protocol: Radiologic exam of the right tibia and fibula. Views: 2 views. COMPARISON: CR XR TIB/FIB RT 12/16/2022 1:02 PM FINDINGS: Tubes, catheters and devices: There is a new suction device anterolateral to the tibiofemoral joint. Bones/joints: Again noted is an intramedullary blair through the tibia with proximal and distal transverse fixating screws, unchanged and intact. Again noted is a spiral type nondisplaced fracture through the distal tibial diaphysis which is now in anatomical alignment. There is increased healing callus formation along the superolateral aspect of the fracture line. There is new healing callus formation around the oblique proximal fibular fracture, with unchanged alignment. The nondisplaced distal fibular fracture is partially healed. There appears to be a subtle cortical defect involving the distal tibial articular surface at the ankle mortise on the lateral view and cannot exclude posterior malleolar fracture of the right ankle, which was not clearly present on prior study. Soft tissues: There is no soft tissue swelling or soft tissue air. IMPRESSION: 1. Healing fibular and tibial fractures, as described above. 2. Intact hardware within the right tibia. 3. Tiny cortical defect involving the distal tibial articular surface at the right ankle mortise on the lateral view, suggesting nondisplaced posterior malleolar fracture. Recommend clinical correlation. Follow-up dedicated views of the right ankle could be obtained as clinically indicated. Dictated and Authenticated by: Wenceslao Hansen MD. Ordering:JOSE Gamino MD
--- NOTE | 2023-01-30 18:13 | DI.VRAD_ITS ---
PROCEDURE INFORMATION: Exam: XR Right Knee Exam date and time: 01/30/2023 5:17 PM Age: 47 years old Clinical indication: Right; Prior surgery; Surgery date: 1-6 months; Surgery type: Tibial rodding; Patient HX: RT knee pain TECHNIQUE: Imaging protocol: Radiologic exam of the right knee. Views: 3 views. COMPARISON: CR XR KNEE RT 3V AP,LAT,KATHERINE 12/16/2022 1:06 PM FINDINGS: Tubes, catheters and devices: There appears to be a new vacuum device anterolateral to the tibiofemoral joint and inferolateral to the patella. Bones/joints: There is new healing callus formation around the proximal right fibular fracture, without change in alignment. Fracture line is still visible. Again noted is an intramedullary blair through the proximal aspect of the right tibia with 2 transverse fixating screws proximally, unchanged and intact. The joint spaces are maintained without degenerative changes. There is no evidence of a joint effusion. There are no subluxations. Soft tissues: Normal. IMPRESSION: 1. New findings of partial healing of the proximal right fibular fracture. 2. No acute fractures or subluxations. 3. No joint effusion. Dictated and Authenticated by: Wenceslao Hansen MD. Ordering:JOSE Gamino MD
[2023-01-30] MEDS: Gabapentin 600 MG TAB 1200 MG PO (20:19)
[2023-01-30] MEDS: Atorvastatin 40 MG TAB 80 MG PO (20:20)
[2023-01-30 23:19] VITALS: BP 98/62; PULSE 91; RESP 15; TEMP 36.6; O2SAT 95
[2023-01-31] MEDS: Prochlorperazine 10 MG/2 ML VIAL IVP ×3 (02:57→18:33)
[2023-01-31] MEDS: diphenhydrAMINE 50 MG/ML VIAL 25 MG IVP ×3 (02:59→18:33)
[2023-01-31] MEDS: Normal Saline Flush 10 ML SYR IVP ×4 (03:00→18:34)
[2023-01-31] MEDS: Normal Saline 1,000 ML 80 ML IV (05:15)
[2023-01-31] MEDS: HYDROmorphone 4 MG TAB PO ×3 (05:15→15:31)
[2023-01-31 07:15] LABS: BUN 28 mg/dL (7-18); C-Reactive Protein 1.84 mg/dL (0.0-0.3); CREATININE 1.1 mg/dL (0.55-1.02); Calcium 9.3 mg/dL (8.5-10.1); Chloride 103 mmol/L (98-107); Estimated GFR 62.37 (mL/min/1.73m2); Glucose 111 mg/dL (74-106); Sodium 141 mmol/L (136-145)
[2023-01-31] MEDS: Budesonide/Formoterol 80/4.5 6.9 GM 60 PUFF INH IH ×2 (07:53→19:09)
[2023-01-31 07:55] VITALS: O2SAT 93
[2023-01-31 08:13] VITALS: BP 107/70; PULSE 96; RESP 20; TEMP 37.2; O2SAT 95
[2023-01-31] MEDS: Fluticasone NASAL SPRAY 16 GM BTL NS (08:30)
[2023-01-31] MEDS: Enoxaparin 30 MG/0.3 ML SYR SC ×2 (08:30→20:51)
[2023-01-31] MEDS: Carvedilol 3.125 MG TAB PO ×2 (08:31→20:52)
[2023-01-31] MEDS: Magnesium Oxide 400 MG TAB PO (08:31)
[2023-01-31] MEDS: Torsemide 20 MG TAB 40 MG PO (08:31)
[2023-01-31] MEDS: Aspirin E.C. 81 MG TABEC PO (08:31)
[2023-01-31] MEDS: Acetaminophen 325 MG TAB 975 MG PO ×3 (08:31→20:51)
[2023-01-31] MEDS: Citalopram 20 MG TAB PO (08:32)
[2023-01-31] MEDS: Clopidogrel 75 MG TAB PO (08:32)
[2023-01-31] MEDS: Gabapentin 600 MG TAB PO ×2 (08:32→11:57)
[2023-01-31] MEDS: Sulfameth/Trimeth DS TAB 2 TAB PO ×2 (08:32→20:52)
[2023-01-31] MEDS: Folic Acid 1 MG TAB PO (08:32)
[2023-01-31] MEDS: Empaglifozin 10 MG TAB PO (08:32)
[2023-01-31] MEDS: Potassium Chloride 20 MEQ TABCR PO ×2 (08:32→20:51)
[2023-01-31] MEDS: Pantoprazole 40 MG TABCR PO ×2 (08:32→20:52)
[2023-01-31] MEDS: guaiFENesin 600 MG TABCR PO ×2 (08:32→20:51)
[2023-01-31] MEDS: levETIRAcetam 500 MG TAB 1000 MG PO ×2 (08:32→20:52)
[2023-01-31] MEDS: Methadone Liquid 10 MG/ML 130 MG PO (08:34)
[2023-01-31] MEDS: Insulin Aspart 300 UNITS/3 ML PEN SC ×3 (08:34→17:05)
[2023-01-31] MEDS: Ondansetron 4 MG/2 ML VIAL IVP (08:34)
--- NOTE | 2023-01-31 10:09 | W.PM.PROGNOT ---
Date of Service Date of service: 01/31/23 Time of Service: 10:09 Assessment and Plan Assessment and plan (1) Surgical wound infection: Status: Acute Assessment and plan: s/p I&D of her right tibial wound on 01/18/23. s/p wound vac. Tolerating bactrim. Continue x 14 days of abx starting 01/18/23. (2) Right leg pain: Status: Acute Assessment and plan: Venous doppler negative. Suspect this is expected post-surgical edema. (3) Surgical wound dehiscence: Status: Resolved Assessment and plan: as above (4) RUQ pain: Status: Resolved Assessment and plan: Suspect this is musculoskeletal. US RUQ not showing any acute pathology. (5) Closed fracture of shaft of right tibia and fibula: Status: Acute Assessment and plan: Last XR 12/16/22 and showed stability in herfibular fx; her proximal tibia has an intramedullary blair. Ortho is following. (6) Ischemic cardiomyopathy: Status: Chronic Assessment and plan: Chest pains are recurrent. While the could be angina, she has not had any evidence of ACS on her acute admission, and this is more likely to be anxiety. Continue her current cardiac medications. Continue prn lorazepam. (7) Type 2 diabetes mellitus: Status: Chronic Assessment and plan: Continue current management. (8) Diabetic peripheral neuropathy: Status: Acute Assessment and plan: Continue current doses of gabapentin. (9) PTSD (post-traumatic stress disorder): Status: Chronic Assessment and plan: With episodes of anxiety. Continue prn lorazepam. (10) Opioid dependence: Status: Chronic Assessment and plan: continue methadone 130 mg daily She is also written for prn po and iv dilaudid q1h prn pain in addition to ketorolac 15 mg iv q6hr (11) Obstructive sleep apnea: Status: Chronic Assessment and plan: Continue supplemental O2 (12) DVT prophylaxis: Status: Acute Assessment and plan: Continue SC enoxaparin (13) Discharge planning issues: Status: Acute Subjective Subjective Patient reports: no new complaints, nausea (everyday has nausea always req compazine and benadryl) and afebrile; denies diarrhea or vomiting Interval history since last seen: December was seen by Dr Wisdom today. She is in a agreement to go to the OR tomorrow. Continues to complain of pain and requesting prochlorperazine and diphenhydramine for nausea. Exam Narrative Exam Narrative: General: Pleasant anxious tearful middle-aged female, A&Ox3, sitting up in bed Neurological: A&Ox3, no focal deficits Psychiatric: Anxious/tearful Skin: R knee incision with wound vac in place, otherwise dry/intact HEENT: Atraumatic, normocephalic, EOMI, MMM, no submandibular or cervical lymphadenopathy, no goiter or JVD Cardiovascular: RRR, no m/r/g Lungs: CTAB Gastrointestinal: RUQ TTP Genitourinary: deferred Extremities: R knee with a wound vac attached; otherwise, no edema/clubbing/cyanosis of BLEs, no lesions on B feet. Objective Last Vital Signs Temp 37.2 C 01/31/23 08:13 Pulse 96 H 01/31/23 08:13 Resp 20 01/31/23 08:13 BP 107/70 01/31/23 08:13 Pulse Ox 95 01/31/23 08:13 Laboratory Results - last 24 hr 01/31/23 06:35 Sodium 141 Potassium 4.0 Chloride 103 Carbon Dioxide 30.0 Anion Gap 8.0 BUN 28 H Creatinine 1.1 H Est GFR (CKD-EPI 2020) 62.37 Glucose 111 H Calcium 9.3 C-Reactive Protein 1.84 H Time Spent with Patient Time Spent with Patient: 25-34 minutes Time was spent: preparing to see the patient(eg.review tests), ordering medications,tests, procedures, referring, communicating with other health wound care specialist, indepentently interpreting results, counseling the patient and care coordination
[2023-01-31] MEDS: LORazepam 0.5 MG TAB PO ×2 (12:04→20:52)
[2023-01-31 15:34] VITALS: BP 103/70; PULSE 92; RESP 18; TEMP 36.9; O2SAT 94
--- NOTE | 2023-01-31 17:05 | PT.INNT ---
Date of service: 01/31/23 Time of Service: 14:30 PT Notes Visit Reasons: Cellulitis,R knee wound dehiscence Patient states she has not had her pain medication yet, please check back. Upon checking back at 16:35, is in conversation with [employer] sales representative, asks to rain check therapy until tomorrow.
--- NOTE | 2023-01-31 17:30 | W.PM.DS.N ---
Date of service: 01/31/23 Time of Service: 17:30 DS: Diagnosis Discharge Diagnosis (1) Surgical wound infection: Status: Acute (2) Right leg pain: Status: Acute (3) Surgical wound dehiscence: Status: Resolved (4) RUQ pain: Status: Resolved (5) Closed fracture of shaft of right tibia and fibula: Status: Acute (6) Ischemic cardiomyopathy: Status: Chronic (7) Type 2 diabetes mellitus: Status: Chronic (8) Diabetic peripheral neuropathy: Status: Acute (9) PTSD (post-traumatic stress disorder): Status: Chronic (10) Opioid dependence: Status: Chronic (11) Obstructive sleep apnea: Status: Chronic (12) DVT prophylaxis: Status: Acute (13) Discharge planning issues: Status: Acute Discharge Plan Disposition Patient Disposition: Admit to [facility] Condition: Fair Discharge Details Reason For Visit: Cellulitis,R knee wound dehiscence Admit Date/Time: 01/23/23 17:35 Admit Provider: Brii Baeza Attending Provider: Brii Baeza [facility]: Ms Monique is a 47 year old female with PMHx of R knee surgical wound dehiscence due to infection s/p I&D on 01/18/[address] Wisdom, as well as h/o IDDM2, chronic systolic CHF w/ LVEF of 39%, opioid dependence on methadone,? who is being admitted into swing bed level status for management of her R knee wound vac while carefully monitoring her antibiotic therapy for above infection. Per [facility] ID, the patient would benefit from being on bactrim DS 2 tab BID x 10-14 days starting with the day of procedure. 01/31/2023 patient is returning to acute status under care of Dr Wisdom for surgery on her right leg for delayed primary close. She is stable. Discussed with Dr Lion and Dr Wisdom Home Meds and New Rx's Prescriptions: No Action gabapentin 600 mg tablet PO TID Rx Instructions: 600 mg PO q am and at noon; 1200 mg PO Qpm levetiracetam 1,000 mg tablet 1,000 mg PO Q12H Qty: 60 5RF ibuprofen 600 mg tablet 600 mg PO TID PRN (Reason: pain) Qty: 30 0RF cyclobenzaprine 10 mg tablet 10 mg PO TID PRN (Reason: muscle spasm) Qty: 20 0RF clindamycin HCl 150 mg capsule 450 mg PO TID Qty: 63 0RF Rx Instructions: take 3 tablets by mouth three times per day until gone atorvastatin [Lipitor] 80 mg tablet 80 mg PO DAILY clopidogrel [Plavix] 75 mg tablet 75 mg PO DAILY Tresiba FlexTouch U-200 200 unit/mL (3 mL) insulin pen 120 unit subcut DAILY magnesium oxide [MagOx] 400 mg (241.3 mg magnesium) tablet 400 mg PO BID nitroglycerin [Nitrostat] 0.4 mg tablet, sublingual 0.4 mg sublingual Q5M PRN Rx Instructions: do not exceed 3 doses per episode albuterol sulfate 2.5 mg /3 mL (0.083 %) solution for nebulization 2.5 mg inhalation Q6H PRN Rx Instructions: not started yet insulin lispro [Humalog KwikPen Insulin] 100 unit/mL insulin pen subcut AC & HS PRN Rx Instructions: Per sliding scale pt doesnt have directions ferrous sulfate 325 mg (65 mg iron) tablet,delayed release (DR/EC) 325 mg PO BID cefadroxil 500 mg capsule 500 mg PO BID Qty: 28 0RF carvedilol 3.125 mg Tablet 3.125 mg PO BID Qty: 60 0RF pantoprazole [Protonix] 40 mg tablet,delayed release (DR/EC) 40 mg PO BID Qty: 60 0RF Victoza 3-Tanmay 0.6 mg/0.1 mL (18 mg/3 mL) pen injector 1.8 mg SUBCUT DAILY Qty: 0 0RF Patient Comments: INJECT 0.6 MG UNDER THE SKIN ONCE DAILY TITRATE UP TOLERATED TO 1.2 MG DAILY, THEN MAINTAINANCE AT 1.8 MG DAILY naloxone [Narcan] 4 mg/actuation spray,non-aerosol 4 mg intranasal Q2-3M PRNQty: 2 0RF Rx Instructions: spray 1 dose into ONE nostril; alternate nostrils w each dose until help arrives acetaminophen [Tylenol Ex Str Arthritis Pain] 500 mg Tablet 1,000 mg PO TID methadone 10 mg/5 mL Solution 130 mg PO DAILY Rx Instructions: [facility] [phone] opens 0554 carboxymethylcellulose sodium [Refresh Plus] 0.5 % Dropperette 1 drp OU QID Qty: 50 0RF Rx Instructions: PRN potassium chloride 10 mEq capsule, extended release 10 meq PO DAILY Patient Comments: TAKE ONE CAPSULE BY MOUTH EVERY DAY torsemide 20 mg tablet 20 mg PO BID Patient Comments: TAKE ONE TABLET BY MOUTH EVERY DAY cetirizine [Zyrtec] 10 mg tablet 10 mg PO DAILY Patient Comments: TAKE ONE TABLET BY MOUTH EVERY DAY NEEDED aspirin [Adult Low Dose Aspirin] 81 mg tablet,delayed release (DR/EC) 81 mg PO DAILY Patient Comments: TAKE ONE TABLET BY MOUTH EVERY DAY citalopram [Celexa] 20 mg tablet 20 mg PO DAILY Patient Comments: TAKE ONE TABLET BY MOUTH EVERY DAY benzonatate 100 mg capsule 100 mg PO TID PRN PRN (Reason: Cough) Patient Comments: TAKE ONE CAPSULE BY MOUTH THREE TIMES A DAY NEEDED folic acid 1 mg tablet 1 mg PO DAILY Patient Comments: TAKE ONE TABLET BY MOUTH EVERY DAY albuterol sulfate [ProAir HFA] 90 mcg/actuation HFA aerosol inhaler 2 inh INHALATION Q3H PRN PRN (Reason: Shortness Of Breath Or Wheezing) Patient Comments: INHALE TWO PUFFS BY MOUTH EVERY 3 HOURS NEEDED colchicine [Colcrys] 0.6 mg tablet 0.6 mg PO BID Patient Comments: TAKE ONE TABLET BY MOUTH TWICE A DAY fluticasone propion-salmeterol [Advair HFA] 45-21 mcg/actuation HFA aerosol inhaler 2 inh INHALATION BID Patient Comments: INHALE TWO PUFFS BY MOUTH TWICE A DAY Jardiance 10 mg tablet 10 mg PO DAILY Patient Comments: TAKE ONE TABLET BY MOUTH EVERY DAY baclofen 10 mg tablet 10 mg PO TID PRNQty: 30 0RF Discharge Instructions Activity:: Activity as Tolerated Equipment/Supplies:: No Equipment Needed Diet:: Carb Counting Discharge Orders Discharge Orders: Discharge Order (Routine); Ordered 01/31/23 Ordered By: Georgette Lou DS: Summary Time Spent with Patient providing and/or coordinating discharge services: Less than 30 minutes Status at Discharge Functional status at discharge: uses cane/walker Overall status at discharge: patient is not back to baseline Mental Status: mental status grossly normal Speech and Movement: speech and movement normal Mood: congruent mood Affect: normal affect Exam Narrative Exam Narrative: General: Pleasant anxious tearful middle-aged female, A&Ox3, sitting up in bed Neurological: A&Ox3, no focal deficits Psychiatric: Anxious/tearful Skin: R knee incision with wound vac in place, otherwise dry/intact HEENT: Atraumatic, normocephalic, EOMI, MMM, no submandibular or cervical lymphadenopathy, no goiter or JVD Cardiovascular: RRR, no m/r/g Lungs: CTAB Gastrointestinal: RUQ TTP Genitourinary: deferred Extremities: R knee with a wound vac attached; otherwise, no edema/clubbing/cyanosis of BLEs, no lesions on B feet. Psych Mental Status: mental status grossly normal Speech and Movement: speech and movement normal Mood: congruent mood Affect: normal affect DS: Data Vitals/I&O Vitals and I&O: Vital Signs Temperature 36.9 C 01/31/23 15:34 Temperature Source Tympanic 01/31/23 15:34 Pulse 92 H 01/31/23 15:34 Pulse Rhythm Regular 01/31/23 09:11 Respiratory Rate 18 01/31/23 15:34 Respiratory Effort Normal, Non-Labored 01/31/23 09:11 Respiratory Depth Normal 01/31/23 09:11 Respiratory Pattern Normal 01/31/23 09:11 Blood Pressure 103/70 01/31/23 15:34 Pulse Oximetry 94 01/31/23 15:34 Oxygen Delivery Method Nasal Cannula 01/31/23 15:34 Oxygen Flow Rate 1 01/31/23 15:34 Pain Level 8 01/31/23 15:34 Comment Pt. complaining of acid reflux and nausea. Pt. unable to receive ondansetron (Zofran) or prochlorperazine (Compazine) per the MAR at this time. Pt. was offered Mylanta. Pt. refused, stating, Mylanta is trash. It doesn't work for me. 01/28/23 11:50 Intake & Output 01/30/23 01/31/23 01/31/23 23:59 11:59 23:59 Intake Total 500 / 500 584 / 584 Output Total 1999 / 1599 Balance -1500 / -1700 -1016 / -1016 Weight 87 kg Intake: IV 84 / 84 Oral 490 / 490 500 / 500 Output: Urine 1999 1600 1600 Other: Urine Color Straw Yellow Yellow Urine Appearance Clear Clear Comment mixed with stool unclear amount, mixed with stool and toilet paper. Stool Size Small Stool Characteristics Formed Brown Voiding Methods Bedside Commode Bedside Commode Data Completed and Pending Labs on day of discharge: Labs from last 24 hours 01/31/23 06:35 Sodium 141 Potassium 4.0 Chloride 103 Carbon Dioxide 30.0 Anion Gap 8.0 BUN 28 H Creatinine 1.1 H Est GFR (CKD-EPI 2020) 62.37 Glucose 111 H Calcium 9.3 C-Reactive Protein 1.84 H PFSH All Active Problems (Updated 01/31/23 @ 06:00 by Stevenson Wisdom MD) Discharge planning issues (Acute) DVT prophylaxis (Acute) Right leg pain (Acute) Surgical wound infection (Acute) Cellulitis of right leg (Acute) Opioid dependence (Chronic) Recurrent episodes of unresponsiveness (Acute) Syncope (Chronic) Closed fracture of shaft of right tibia and fibula (Acute 11/23/22) s/p IMN of Right Tibia - 11/24/22 QT prolongation (Chronic) Nonspecific paroxysmal spell (Acute) Episode of unresponsiveness (Acute) Chronic systolic CHF (congestive heart failure) (Chronic) Ischemic cardiomyopathy (Chronic) Obstructive sleep apnea (Chronic) Hallucinations (Acute) Chronic respiratory failure with hypoxia (Chronic) Syncopal episodes (Chronic) Observed seizure-like activity (Acute) Opioid dependence on agonist therapy (Acute) Leg wound, left (Acute) Facial palsy (Acute) Pulmonary HTN (Acute) Heart failure (Acute) 09/02/21 with PR low EF Vertigo (Acute) GERD (gastroesophageal reflux disease) (Chronic) Essential hypertension (Acute) Asthma (Chronic) Depression (Chronic) PTSD (post-traumatic stress disorder) (Chronic) Tobacco abuse disorder (Acute) Hypokalemia (Acute) Chronic gout (Acute) Hyperlipidemia (Acute) Diabetic peripheral neuropathy (Acute) Type 2 diabetes mellitus (Chronic) Medical History (Updated 01/31/23 @ 06:00 by Stevenson Wisdom MD) COVID was vaccinated but contracted Covid 06/22 History of gastrointestinal ulcer Non-STEMI (non-ST elevated myocardial infarction) 09/02/21 Surgical History H/O bone graft left knee H/O shoulder surgery x4 and ending with a full replacement H/O total hysterectomy History of appendectomy History of colonoscopy History of esophagogastroduodenoscopy (EGD) gastritis with gastric ulcers Previous section x4 delivery Family History Mother Cancer Heart disease Obstructive lung disease Depression Arthritis Degeneration of intervertebral disc Father Alcohol use disorder Brother Hypertension Mood disorder Maternal Grandfather Alcohol use disorder Maternal Grandmother Breast cancer Maternal Aunt Breast cancer Paternal Aunt Breast cancer Social History Smoking/Tobacco Use Status: Current every day Tobacco Type: cigarettes Tobacco: How many years used: 34 Smoking risk assessment performed?: Yes Alcohol Intake: current Alcohol Intake frequency: holidays/special occasions only Alcohol type: beer Drug use: Never Substance use type: does not use Do you feel safe at home: Yes Do you feel safe in your relationship?: Yes Time Spent with Patient Time Spent with Patient: 45-69 minutes Time was spent: preparing to see the patient(eg.review tests), ordering medications,tests, procedures, referring, communicating with other health human services care specialist, indepentently interpreting results, counseling the patient and care coordination
[2023-01-31] MEDS: Atorvastatin 40 MG TAB 80 MG PO (20:52)
[2023-01-31] MEDS: Methocarbamol 750 MG TAB PO (20:52)
[2023-01-31] MEDS: Gabapentin 600 MG TAB 1200 MG PO (20:53)
--- NOTE | 2023-01-31 21:10 | NUR.NOTE ---
Nursing Note: During HS med pass, patient stated that she had a very stressful day and requested her lorazepam. Medication administered. Patient then stated when thats done, I will get my benadryl and compazine so that I can pass back out. Copyman informed patient that those medications were not ordered to help her pass out but where ordered for nausea. Patient stated they do help my stomach. Copyman informed patient that she did have zofran ordered and that medication help with nausea. Patient did not respond to junior underwriter. Before junior underwriter exited room a moment later patient asked for 2 ice creams and a large glass (360ml) of milk. Charge nurse informed about patient's comment and junior underwriter's response.
[2023-02-01] VITALS: BP 106/68; PULSE 91; RESP 18; TEMP 36.1; O2SAT 95
[2023-02-01] MEDS: Ondansetron 4 MG/2 ML VIAL IVP (00:16)
[2023-02-01] MEDS: LORazepam 0.5 MG TAB PO (03:08)
[2023-02-01] MEDS: HYDROmorphone 4 MG TAB PO (03:08)
--- NOTE | 2023-02-01 04:03 | NUR.NOTE ---
Nursing Note:@0300 patient awake sitting on bed watching TV. Patient reports nausea. PRN ativan 0.5mg administered at that time. @0400 patient states that she needed something for her stomach. PRN Tigan IM offer and patient refused. Informed patient about PRN zofran was not able to be given now, but it would be available shortly. Patient said I don't want that medication. Patient asked why she couldn't have her compazine. Panel Sewer stated that because of the comments about using the medication to pass out other medications would be offered to alleviate the symptoms. Charge nurse Shari Schaffer RN updated. Patient's mother called to speak to this nurse about patient. Patient's mother stated why can't my daughter have the compazine/benadryl medication. She is dyeing and you need to give her the medication. Panel Sewer attempted to inform her about her daughters comments and that I could not give that medication to protect my license. Patient's mother interrupted chief writer mid sentence and began to yell that we needed to give her daughter what she wants and she wants to speak with the housekeeping worker. Call transferred. Night hospitalist Dr. Parekh updated about situation and spoke with the patient. Dr. Parekh gave verbal order for ativan 1mg po x1 and not to given compazine/benadryl combination d/t patient's earlier comments. Awaiting order to be verified by pharmacy.
[2023-02-01] MEDS: LORazepam 1 MG TAB PO (05:18)
[2023-02-01] MEDS: Trimethobenzamide 200 MG/2 ML VIAL IM (05:24)
--- NOTE | 2023-02-01 06:06 | HPE_ITS ---
Date of service: 02/01/23 Time of Service: 07:46 Assessment and Plan Assessment and plan (1) Closed fracture of shaft of right tibia and fibula: Status: Acute Assessment and plan: Aracelis is 2 and half month status post intramedullary fixation of this right tibial shaft fracture. In general, it seems to be progressing quite appropriately. She does have pain suggested around the fracture site but she has been able to be independently mobile without any assistive devices at times. The x-rays show healing. At this point I think is very normal to have pain around the fracture site and in the leg itself. This will continue to get better with time. Physical therapy may be beneficial but at this point and no see any signs of complication from the fixation of the tibial shaft except for the wound infection and dehiscence. (2) Surgical wound dehiscence: Status: Resolved Assessment and plan: Currently managed with wound VAC. To be closed in a delayed fashion today. (3) Surgical wound infection: Status: Acute Assessment and plan: Multiple organisms including those of nondermatologic origin. Currently being managed on Bactrim double strength twice daily per infectious disease recommendations. CRP has stayed mildly elevated but has not peaked. Clinically she has shown significant signs of improvement based on the leg today compared to just a week and a half ago. Given the difficulties with housing I recommend that we proceed with a delayed primary closure about the right knee wound. This does impart some additional risk of recurrence of infection, although I think is quite low given no significant deep penetration of the infection and significant improvements with this most recent treatment. This would allow the wound to heal in a much better environment but also hopefully allow her to be able to be discharged. We would continue with oral antibiotics. I would use a vacuum- assisted closure device that would not be changed until she sees me back in the office. N.p.o. today. To the operating room later today. History of Present Illness History of Present Illness Chief Complaint: Infected Right Knee Surgical Wound Narrative: Aracelis is a 47-year-old female with a significant past medical history including insulin-dependent diabetes, chronic systolic congestive heart failure with decreased ejection fraction, opioid dependent, who suffered a fracture of her right tibia and fibula in November. This was fixed with intramedullary nail. She was able be discharged to home after prolonged hospital course. Unfortunat shelton, she had some wound dehiscence about the right lateral knee wound and was unable to manage this on her own at home and eventually this appeared to be infected. We attempted outpatient management with this was unsuccessful. She was admitted to the hospital for surgical debridement of that right knee wound. It did not show any deep penetration. The fascia was intact. The knee was aspirated and was not infected. There is no deep abscess. Given the history of this wound and compliance issues with dressing management, wound VAC was placed. The intention was for this to be switched to an outpatient service. But unfortunately she is now currently without any housing. Housing has been difficult to obtain with the wound VAC. Her wound has grown Enterococcus, Enterobacter cloacae, and Staph aureus. She has been transition from intravenous medications to oral medications with significant improvements with all lab function as well as clinical findings. She has no or minimal swelling about the right leg and no erythema, which were present on initiation of treatment. Wound changes have been done as a swing bed status here in the hospital. There is been notable improvement with the wound. There is been minimal output. There has been significant improvement granulation tissue and once again no surrounding changes to suggest ongoing infection or deeper infection. Given the difficulties with discharging with housing with the current wound VAC, I recommended proceeding with a tertiary closure, delayed primary closure, of the right knee wound. For that reason, Aracelis has been readmitted to the hospital as an inpatient. During her course as a swing bed patient she did have some episodes of pain in the right leg which were investigated with repeat x-rays which continue to show healing of her fracture site. She also has some issues with chest pain which are intermittent and determined not to be of a true cardiac origin. Review of Systems All systems reviewed & are unremarkable except as noted in HPI and below PFSH All Active Problems (Updated 02/03/23 @ 00:03 by KELLEY PHELPS) Discharge planning issues (Acute) Right leg pain (Acute) Surgical wound infection (Acute) Cellulitis of right leg (Acute) Opioid dependence (Chronic) Recurrent episodes of unresponsiveness (Acute) Syncope (Chronic) Closed fracture of shaft of right tibia and fibula (Acute 11/23/22) s/p IMN of Right Tibia - 11/24/22 QT prolongation (Chronic) Nonspecific paroxysmal spell (Acute) Episode of unresponsiveness (Acute) Chronic systolic CHF (congestive heart failure) (Chronic) Ischemic cardiomyopathy (Chronic) Obstructive sleep apnea (Chronic) Hallucinations (Acute) Chronic respiratory failure with hypoxia (Chronic) Syncopal episodes (Chronic) Observed seizure-like activity (Acute) Opioid dependence on agonist therapy (Acute) Leg wound, left (Acute) Facial palsy (Acute) Pulmonary HTN (Acute) Heart failure (Acute) 09/02/21 with PA low EF Vertigo (Acute) GERD (gastroesophageal reflux disease) (Chronic) Essential hypertension (Acute) Asthma (Chronic) Depression (Chronic) PTSD (post-traumatic stress disorder) (Chronic) Tobacco abuse disorder (Acute) Hypokalemia (Acute) Chronic gout (Acute) Hyperlipidemia (Acute) Diabetic peripheral neuropathy (Acute) Type 2 diabetes mellitus (Chronic) Medical History COVID was vaccinated but contracted Covid 06/22 DVT prophylaxis History of gastrointestinal ulcer Non-STEMI (non-ST elevated myocardial infarction) 09/02/21 Surgical History H/O bone graft left knee H/O shoulder surgery x4 and ending with a full replacement H/O total hysterectomy History of appendectomy History of colonoscopy History of esophagogastroduodenoscopy (EGD) gastritis with gastric ulcers Previous section x4 delivery Family History Mother Cancer Heart disease Obstructive lung disease Depression Arthritis Degeneration of intervertebral disc Father Alcohol use disorder Brother Hypertension Mood disorder Maternal Grandfather Alcohol use disorder Maternal Grandmother Breast cancer Maternal Aunt Breast cancer Paternal Aunt Breast cancer Social History Smoking/Tobacco Use Status: Current every day Tobacco Type: cigarettes Tobacco: How many years used: 34 Smoking risk assessment performed?: Yes Alcohol Intake: current Alcohol Intake frequency: holidays/special occasions only Alcohol type: beer Drug use: Never Substance use type: does not use Do you feel safe at home: Yes Do you feel safe in your relationship?: Yes Meds Allergies and Home Medications Allergies Allergy/AdvReac Type Severity Reaction Status Date / Time Bleach (Sodium Hypochlorite) Allergy Unknown Verified 01/17/23 16:34 mushroom Allergy Unknown Verified 01/17/23 16:34 Penicillins Allergy Unknown Verified 01/17/23 16:34 tramadol Allergy Unknown Verified 01/17/23 16:34 mold Allergy Verified 01/17/23 16:34 trazodone Allergy Verified 01/17/23 16:34 Home Medications Medication Instructions Recorded Confirmed Type albuterol sulfate 2.5 mg/3 mL 2.5 mg inhalation Q6H PRN 10/18/21 01/23/23 History (0.083 %) solution for nebulization atorvastatin 80 mg tablet (Lipitor) 80 mg PO DAILY 10/18/21 01/23/23 History clopidogrel 75 mg tablet (Plavix) 75 mg PO DAILY 10/18/21 01/17/23 History insulin degludec 200 unit/mL (3 120 unit subcut DAILY 10/18/21 01/23/23 History mL) subcutaneous pen (Tresiba FlexTouch U-200 insulin) insulin lispro 100 unit/mL unit subcut AC & HS PRN 10/18/21 01/13/23 History subcutaneous pen (Humalog KwikPen (U-100) Insulin) magnesium oxide 400 mg (241.3 mg 400 mg PO BID 10/18/21 01/23/23 History magnesium) tablet (MagOx) nitroglycerin 0.4 mg sublingual 0.4 mg sublingual Q5M PRN 10/18/21 01/23/23 History tablet (Nitrostat) methadone 10 mg/5 mL oral solution 130 mg PO DAILY 03/15/22 01/23/23 History carboxymethylcellulose sodium 0.5 1 drp OU QID #50 ea 08/15/22 01/23/23 Rx % eye drops in a dropperette (Refresh Plus) albuterol sulfate 90 mcg/actuation 2 inh inhalation Q3H PRN PRN 10/29/22 01/23/23 History aerosol inhaler (ProAir HFA) Shortness Of Breath Or Wheezing aspirin 81 mg tablet,delayed 81 mg PO DAILY 10/29/22 01/23/23 History release (Adult Low Dose Aspirin) benzonatate 100 mg capsule 100 mg PO TID PRN PRN Cough 10/29/22 01/23/23 History cetirizine 10 mg tablet (Zyrtec) 10 mg PO DAILY 10/29/22 01/23/23 History citalopram 20 mg tablet (Celexa) 20 mg PO DAILY 10/29/22 01/17/23 History colchicine 0.6 mg tablet (Colcrys) 0.6 mg PO BID 10/29/22 01/23/23 History empagliflozin 10 mg tablet 10 mg PO DAILY 10/29/22 01/23/23 History (Jardiance) fluticasone propionate 45 2 inh inhalation BID 10/29/22 01/23/23 History mcg-salmeterol 21 mcg/actuation HFA inhaler (Advair HFA) folic acid 1 mg tablet 1 mg PO DAILY 10/29/22 01/23/23 History potassium chloride 10 mEq 10 meq PO DAILY 10/29/22 01/23/23 History capsule,extended release torsemide 20 mg tablet 20 mg PO BID 10/29/22 01/17/23 History carvedilol 3.125 mg tablet 3.125 mg PO BID #60 tabs 11/29/22 01/23/23 Rx liraglutide 0.6 mg/0.1 mL (18 mg/3 1.8 mg (0.3 mL) subcut DAILY #0 mL 11/29/22 01/23/23 Rx mL) subcutaneous pen injector ([employer] 3-Tanmay) naloxone 4 mg/actuation nasal 4 mg intranasal Q2-3M PRN #2 ea 11/29/22 01/23/23 Rx spray (Narcan) ferrous sulfate 325 mg (65 mg 325 mg PO BID 12/15/22 01/23/23 History iron) tablet,delayed release gabapentin 600 mg tablet mg PO TID 12/15/22 01/13/23 History levetiracetam 1,000 mg tablet 1,000 mg PO Q12H #60 tabs 12/15/22 01/23/23 Rx baclofen 10 mg tablet 10 mg PO TID PRN #30 tabs 12/16/22 01/23/23 Rx clindamycin HCl 150 mg capsule 450 mg PO TID #63 caps 01/12/23 01/23/23 Rx acetaminophen 500 mg tablet 1,000 mg PO TID #90 tabs 02/02/23 Rx cyclobenzaprine 10 mg tablet 10 mg PO TID PRN muscle spasm #20 02/02/23 Rx tabs hydromorphone 4 mg tablet 4 mg PO Q6H PRN #30 tabs 05/04/23 Rx ibuprofen 600 mg tablet 600 mg PO TID PRN pain #90 tabs 02/02/23 Rx pantoprazole 40 mg tablet,delayed 40 mg PO BID #60 tabs 02/02/23 Rx release (Protonix) promethazine 25 mg tablet 25 mg PO TID PRN nausea and 02/02/23 Rx vomiting #20 tabs sulfamethoxazole 800 2 tab PO BID #28 tabs 02/02/23 Rx mg-trimethoprim 160 mg tablet Exam Narrative Exam Narrative: Sitting up in the hospital bed. Alert and oriented x3. No acute distress. Somewhat dysthymic. Evaluation of the right lower extremity shows minimal edema throughout the right leg. There is some generalized tenderness to palpation about the mid tibia. No open sores or open wounds. No erythema. Wound VAC is in place and well approximated to its edges. No knee effusion. Generalized pain and discomfort around the knee and wound VAC. She is able to demonstrate gentle, active knee flexion and knee extension as well as great toe extension and great toe flexion in addition to ankle dorsiflexion and ankle plantarflexion. While she generally reports some abnormal sensation she does endorse gross sensation over the deep and superficial peroneal nerve and tibial nerve. Palpable DP and PT pulse. Results Imaging Imaging Studies: Previous x-ray of the right tibia and fibula as well as the right knee were obtained and reviewed. These show no change in the position of the hardware. Fracture appears to be healing. No changes into the knee nor signs of significant arthritis or previous fracture. Labs 02/01/23 06:15 02/01/23 06:15 Labs: Laboratory Results - last 24 hr 01/31/23 06:35 Sodium 141 Potassium 4.0 Chloride 103 Carbon Dioxide 30.0 Anion Gap 8.0 BUN 28 H Creatinine 1.1 H Est GFR (CKD-EPI 2020) 62.37 Glucose 111 H Calcium 9.3 C-Reactive Protein 1.84 H Last Vital Signs Temp 36.1 C L 02/01/23 00:00 Pulse 91 H 02/01/23 00:00 Resp 18 02/01/23 00:00 BP 106/68 02/01/23 00:00 Pulse Ox 95 02/01/23 00:00 Time Spent Time spent with Patient: 40-54 minutes Time was spent: preparing to see the patient(eg.review tests), obtaining and/or reviewing separately otained hiistory, ordering medications,tests, procedures and indepentently interpreting results
[2023-02-01 07:11] LABS: Abs Immature Grans 0.05 10^3/uL (0.0-0.06); Absolute Basophil Count 0.04 10^3/uL (0.0-0.2); Absolute Eosinophil Count 0.59 10^3/uL (0.0-0.7); Absolute Lymphocyte Count 2.76 10^3/uL (1.2-3.4); Absolute Monocyte Count 1.09 10^3/uL (0.1-0.8); Absolute Neutrophil Count 4.42 10^3/uL (1.2-6.7); Basophils % 0.4; Eosinophils % 6.6; HCT 37.5 % (36.0-46.0); HGB 12.3 g/dL (11.2-15.7); Immature Grans % 0.6; Lymphocytes % 30.8; MCH 29.1 pg (27.0-33.0); MCHC 32.8 % (32.0-36.0); MCV 89 fL (80-95); MPV 9.7 fL (8.0-11.0); Monocytes % 12.2; Neutrophils % 49.4; Platelet Count 371 10^3/uL (130-400); RBC 4.23 10^6/uL (3.93-5.22); RDW 15.1 % (11.7-14.6); RDW-SD 48.7 fL; WBC 8.95 10^3/uL (4.4-10.8)
[2023-02-01 07:15] LABS: Anion Gap 6.1 mmol/L (3-11); BUN 30 mg/dL (7-18); CO2 32.9 mmol/L (21.0-32.0); CREATININE 1.2 mg/dL (0.55-1.02); Calcium 9.1 mg/dL (8.5-10.1); Chloride 102 mmol/L (98-107); Estimated GFR 56.19 (mL/min/1.73m2); Glucose 107 mg/dL (74-106); Magnesium 2.4 mg/dL (1.8-2.4); Sodium 141 mmol/L (136-145)
== END 2023-02-01 07:13 | disposition short-term general hospital (02) | DRG 863 ==
PROVIDERS: Internal Medicine; Nurse Practitioner Family; Student in an Organized Health Care Education/Training Program; Admitting Provider Internal Medicine; PCP Nurse Practitioner Family; Visit Provider Internal Medicine
DX: T81.49XA Infection following a procedure, other surgical site, initial encounter (principal); T81.31XA Disruption of external operation (surgical) wound, not elsewhere classified, initial encounter; F11.20 Opioid dependence, uncomplicated; I50.22 Chronic systolic (congestive) heart failure; J96.11 Chronic respiratory failure with hypoxia; I25.5 Ischemic cardiomyopathy; E11.42 Type 2 diabetes mellitus with diabetic polyneuropathy; F43.10 Post-traumatic stress disorder, unspecified; G47.33 Obstructive sleep apnea (adult) (pediatric); R10.11 Right upper quadrant pain; S82.291D Other fracture of shaft of right tibia, subsequent encounter for closed fracture with routine healing; S82.491D Other fracture of shaft of right fibula, subsequent encounter for closed fracture with routine healing; X58.XXXD Exposure to other specified factors, subsequent encounter; F43.12 Post-traumatic stress disorder, chronic; I45.81 Long QT syndrome; M79.661 Pain in right lower leg; K21.9 Gastro-esophageal reflux disease without esophagitis; I11.0 Hypertensive heart disease with heart failure; E78.5 Hyperlipidemia, unspecified; M1A.9XX0 Chronic gout, unspecified, without tophus (tophi); I27.20 Pulmonary hypertension, unspecified; J45.909 Unspecified asthma, uncomplicated; F17.210 Nicotine dependence, cigarettes, uncomplicated; I25.2 Old myocardial infarction; Z79.4 Long term (current) use of insulin; B96.89 Other specified bacterial agents as the cause of diseases classified elsewhere; B95.2 Enterococcus as the cause of diseases classified elsewhere; B95.61 Methicillin susceptible Staphylococcus aureus infection as the cause of diseases classified elsewhere; R11.0 Nausea
CPT/HCPCS: 36415; 80048; 80307; 85027; 94640; 97110; 97116; 97162; 97530; 99306; 99316; 73560; 73590; 83735; 85025; 86140; 93005; 93010; 94664; 94667; 94668; 94760; J0780; J1170; J1200; J1650; J2405

== ENCOUNTER 2023-02-01 07:13 | Inpatient (IN) | payer MEDICARE, MEDICAID, SELFPAY ==
[2023-02-01] VITALS (13 sets, daily range): BP systolic 92–113; BP diastolic 47–75; PULSE 76–94; RESP 12–20; TEMP 36.5–37; O2SAT 94–99; BMI 33.0
[2023-02-01] MEDS: Budesonide/Formoterol 80/4.5 6.9 GM 60 PUFF INH IH ×2 (07:40→19:53)
[2023-02-01] MEDS: Fluticasone NASAL SPRAY 16 GM BTL NS (08:16)
[2023-02-01] MEDS: Sulfameth/Trimeth DS TAB 2 TAB PO ×2 (08:17→19:55)
[2023-02-01] MEDS: Gabapentin 600 MG TAB PO (08:18)
[2023-02-01] MEDS: guaiFENesin 600 MG TABCR PO ×2 (08:18→19:55)
[2023-02-01] MEDS: Methocarbamol 750 MG TAB PO ×2 (08:18→17:02)
[2023-02-01] MEDS: Clopidogrel 75 MG TAB PO (08:19)
[2023-02-01] MEDS: Magnesium Oxide 400 MG TAB PO (08:19)
[2023-02-01] MEDS: Acetaminophen 325 MG TAB 975 MG PO ×4 (08:20→19:54)
[2023-02-01] MEDS: Pantoprazole 40 MG TABCR PO ×2 (08:21→19:55)
[2023-02-01] MEDS: Potassium Chloride 20 MEQ TABCR PO ×2 (08:21→19:54)
[2023-02-01] MEDS: Folic Acid 1 MG TAB PO (08:21)
[2023-02-01] MEDS: Carvedilol 3.125 MG TAB PO ×2 (08:22→19:55)
[2023-02-01] MEDS: Empaglifozin 10 MG TAB PO (08:25)
[2023-02-01] MEDS: levETIRAcetam 500 MG TAB 1000 MG PO ×2 (08:25→19:55)
[2023-02-01] MEDS: Citalopram 20 MG TAB PO (08:25)
[2023-02-01] MEDS: Torsemide 20 MG TAB 40 MG PO (08:26)
[2023-02-01] MEDS: Methadone Liquid 10 MG/ML 130 MG PO (08:27)
[2023-02-01] MEDS: Prochlorperazine 10 MG/2 ML VIAL IVP (08:41)
[2023-02-01] MEDS: diphenhydrAMINE 50 MG/ML VIAL 25 MG IVP (08:48)
[2023-02-01] MEDS: Lactated Ringers 1,000 ML 80 ML IV (08:49)
--- NOTE | 2023-02-01 10:01 | W.ANESPRE ---
General Info Date of Service Date Performed: 02/01/23 Meds Allergies and Home Medications Allergies Allergy/AdvReac Type Severity Reaction Status Date / Time Bleach (Sodium Hypochlorite) Allergy Unknown Verified 01/17/23 16:34 mushroom Allergy Unknown Verified 01/17/23 16:34 Penicillins Allergy Unknown Verified 01/17/23 16:34 tramadol Allergy Unknown Verified 01/17/23 16:34 mold Allergy Verified 01/17/23 16:34 trazodone Allergy Verified 01/17/23 16:34 Home Medication Medication Instructions Recorded albuterol sulfate 2.5 mg/3 mL 2.5 mg inhalation Q6H PRN 10/18/21 (0.083 %) solution for nebulization atorvastatin 80 mg tablet (Lipitor) 80 mg PO DAILY 10/18/21 clopidogrel 75 mg tablet (Plavix) 75 mg PO DAILY 10/18/21 insulin degludec 200 unit/mL (3 120 unit subcut DAILY 10/18/21 mL) subcutaneous pen (Tresiba FlexTouch U-200 insulin) insulin lispro 100 unit/mL unit subcut AC & HS PRN 10/18/21 subcutaneous pen (Humalog KwikPen (U-100) Insulin) magnesium oxide 400 mg (241.3 mg 400 mg PO BID 10/18/21 magnesium) tablet (MagOx) nitroglycerin 0.4 mg sublingual 0.4 mg sublingual Q5M PRN 10/18/21 tablet (Nitrostat) methadone 10 mg/5 mL oral solution 130 mg PO DAILY 03/15/22 carboxymethylcellulose sodium 0.5 1 drp OU QID #50 ea 08/15/22 % eye drops in a dropperette (Refresh Plus) albuterol sulfate 90 mcg/actuation 2 inh inhalation Q3H PRN PRN 10/29/22 aerosol inhaler (ProAir HFA) Shortness Of Breath Or Wheezing aspirin 81 mg tablet,delayed 81 mg PO DAILY 10/29/22 release (Adult Low Dose Aspirin) benzonatate 100 mg capsule 100 mg PO TID PRN PRN Cough 10/29/22 cetirizine 10 mg tablet (Zyrtec) 10 mg PO DAILY 10/29/22 citalopram 20 mg tablet (Celexa) 20 mg PO DAILY 10/29/22 colchicine 0.6 mg tablet (Colcrys) 0.6 mg PO BID 10/29/22 empagliflozin 10 mg tablet 10 mg PO DAILY 10/29/22 (Jardiance) fluticasone propionate 45 2 inh inhalation BID 10/29/22 mcg-salmeterol 21 mcg/actuation HFA inhaler (Advair HFA) folic acid 1 mg tablet 1 mg PO DAILY 10/29/22 potassium chloride 10 mEq 10 meq PO DAILY 10/29/22 capsule,extended release torsemide 20 mg tablet 20 mg PO BID 10/29/22 carvedilol 3.125 mg tablet 3.125 mg PO BID #60 tabs 11/29/22 liraglutide 0.6 mg/0.1 mL (18 mg/3 1.8 mg (0.3 mL) subcut DAILY #0 mL 11/29/22 mL) subcutaneous pen injector (Victoza 3-Tanmay) naloxone 4 mg/actuation nasal 4 mg intranasal Q2-3M PRN #2 ea 11/29/22 spray (Narcan) pantoprazole 40 mg tablet,delayed 40 mg PO BID #60 tabs 11/29/22 release (Protonix) ferrous sulfate 325 mg (65 mg 325 mg PO BID 12/15/22 iron) tablet,delayed release gabapentin 600 mg tablet mg PO TID 12/15/22 levetiracetam 1,000 mg tablet 1,000 mg PO Q12H #60 tabs 12/15/22 baclofen 10 mg tablet 10 mg PO TID PRN #30 tabs 12/16/22 cyclobenzaprine 10 mg tablet 10 mg PO TID PRN muscle spasm #20 12/22/22 tabs ibuprofen 600 mg tablet 600 mg PO TID PRN pain #30 tabs 12/22/22 cefadroxil 500 mg capsule 500 mg PO BID #28 caps 01/11/23 clindamycin HCl 150 mg capsule 450 mg PO TID #63 caps 01/12/23 acetaminophen 500 mg tablet 1,000 mg PO TID 01/17/23 Current Visit Medications: Current Medications Generic Name Dose Route Start Last Admin Trade Name Freq PRN Reason Stop Dose Admin Acetaminophen 975 mg 01/31/23 20:00 02/01/23 08:20 Acetaminophen 325 Mg Tab PO 975 mg TID ALAN Administration Al Hydrox/Mg Hydrox/Simethicone 30 ml 01/31/23 18:16 Mylanta Suspension 30 Ml Cup PO Q2H PRN PRN Albuterol Sulfate 2 puff 01/31/23 17:21 Albuterol Hfa 8 Gm 60 Puff Inh IH Q3H PRN PRN Shortness Of Breath Or Wheezing Aspirin 81 mg 02/01/23 08:30 02/01/23 08:23 Aspirin E.C. 81 Mg Tabec PO 81 mg DAILY ALAN Administration Atorvastatin Calcium 80 mg 01/31/23 20:00 Atorvastatin 40 Mg Tab PO QPM ALAN Budesonide/Formoterol Fumarate 2 puff 01/31/23 20:00 02/01/23 07:40 Budesonide/Formoterol 80/4.5 6.9 Gm 60 Puff Inh IH 2 puffs BID ALAN Administration Carvedilol 3.125 mg 01/31/23 20:00 02/01/23 08:22 Carvedilol 3.125 Mg Tab PO 3.125 mg BID ALAN Administration Citalopram Hydrobromide 20 mg 02/01/23 08:30 02/01/23 08:25 Citalopram 20 Mg Tab PO 20 mg DAILY ALAN Administration Clopidogrel Bisulfate 75 mg 02/01/23 08:30 02/01/23 08:19 Clopidogrel 75 Mg Tab PO 75 mg DAILY [facility] Administration Device 1 each 01/31/23 19:00 Inhaler, Assist Device MC DIRECTED ALAN Dextrose 0 gm 01/31/23 17:29 Glucose Oral Gel 15 Gm/37.5 Gm Tube PO DIRECTED PRN Dextrose/Water 0 gm 01/31/23 17:30 Dextrose 50%-Water 25 Gm/50 Ml Syr IVP DIRECTED PRN Dimethicone/Zinc Oxide 0 gm 01/31/23 17:25 Meche Protect Cream 142 Gm Tube TP PRN PRN Diphenhydramine HCl 25 mg 01/31/23 18:00 02/01/23 08:48 Diphenhydramine 50 Mg/Ml Vial IVP 25 mg Q6H PRN PRN Administration Empagliflozin 10 mg 02/01/23 08:30 02/01/23 08:25 Empaglifozin 10 Mg Tab PO 10 mg DAILY ALAN Administration Enoxaparin Sodium 30 mg 01/31/23 20:00 02/01/23 08:24 Enoxaparin 30 Mg/0.3 Ml Syr SC Not Given Q12H [facility] Fluticasone Propionate 0 gm 02/01/23 08:30 02/01/23 08:16 Fluticasone Nasal [place] 16 Gm Btl NS 1 spray DAILY [facility] Administration Folic Acid 1 mg 02/01/23 08:30 02/01/23 08:21 Folic Acid 1 Mg Tab PO 1 mg DAILY ALAN Administration Gabapentin 600 mg 02/01/23 08:00 02/01/23 08:18 Gabapentin 600 Mg Tab PO 600 mg 0800,1200 ALAN Administration Gabapentin 1,200 mg 01/31/23 20:00 Gabapentin 600 Mg Tab PO QPM [facility] Guaifenesin 600 mg 01/31/23 20:00 02/01/23 08:18 Guaifenesin 600 Mg Tabcr PO 600 mg BID [facility] Administration Hydromorphone HCl 4 mg 01/31/23 18:08 Hydromorphone 4 Mg Tab PO Q4H PRN PRN Hydromorphone HCl 1 mg 01/31/23 18:22 Hydromorphone 2 Mg/Ml Syr IVP Q4H PRN PRN wound care/vac change only Ringer's Solution 1,000 mls @ 80 mls/hr 02/01/23 05:00 02/01/23 08:49 IV 80 mls/hr INFUSION [facility] Administration Sodium Chloride 1,000 mls @ 80 mls/hr 01/31/23 18:30 Saline 1000ml Bag IV INFUSION [facility] IV Miscellaneous Supplies 1 each 01/31/23 18:15 Iv Access IV DIRECTED [facility] Insulin Aspart 0 units 02/01/23 08:00 02/01/23 08:38 Insulin Aspart 300 Units/3 Ml Pen SC Not Given 0800,1200,1700 [facility] Protocol Insulin Aspart 0 units 02/01/23 08:00 02/01/23 08:38 Insulin Aspart 300 Units/3 Ml Pen SC Not Given 0800,1200,1700 [facility] Lactobacillus Acidophilus/Casei 1 cap 02/01/23 08:30 02/01/23 08:20 L. Acidophilus, Casei, Rhamnosus Cap PO 1 cap DAILY [facility] Administration Levetiracetam 1,000 mg 01/31/23 20:00 02/01/23 08:25 Levetiracetam 500 Mg Tab PO 1,000 mg BID ALAN Administration Lorazepam 0.5 mg 01/31/23 18:09 Lorazepam 0.5 Mg Tab PO TID PRN PRN Magnesium Oxide 400 mg 02/01/23 08:30 02/01/23 08:19 Magnesium Oxide 400 Mg Tab PO 400 mg DAILY ALAN Administration Methadone HCl 130 mg 02/01/23 08:30 02/01/23 08:27 Methadone Liquid 10 Mg/Ml PO 130 mg DAILY ALAN Administration Methocarbamol 750 mg 01/31/23 18:09 02/01/23 08:18 Methocarbamol 750 Mg Tab PO 750 mg QID PRN PRN Administration Nicotine 12 cartridge 01/31/23 18:26 02/01/23 08:39 Nicotine 10 Mg/Cartridge 12 Cart/Pkg IH 1 cartridge Q2H PRN PRN Administration Nitroglycerin 0.4 mg 01/31/23 18:25 Nitroglycerin 0.4 Mg Tab SL Q5 MIN PRN X3 PRN Ondansetron HCl 4 mg 01/31/23 18:26 Ondansetron 4 Mg/2 Ml Vial IVP Q6H PRN PRN Pantoprazole Sodium 40 mg 01/31/23 20:00 02/01/23 08:21 Pantoprazole 40 Mg Tabcr PO 40 mg BID@0730,2000 ALAN Administration Pt's Own Liraglutide 1.8 each 02/01/23 08:30 02/01/23 08:40 [Victoza] 18 Mg/3 SC Not Given Ml Pen DAILY [facility] Pt's Own Insulin 120 each 02/01/23 08:30 02/01/23 08:40 Degludec (Tresiba) SC Not Given 200 Units/Ml Pen DAILY ALAN Potassium Chloride 20 meq 01/31/23 20:00 02/01/23 08:21 Potassium Chloride 20 Meq Tabcr PO 20 meq BID ALAN Administration Prochlorperazine Edisylate 10 mg 01/31/23 18:27 02/01/23 08:41 Prochlorperazine 10 Mg/2 Ml Vial IVP 10 mg Q6H PRN PRN Administration Sodium Chloride 0 ml 01/31/23 18:24 Normal Saline Flush 10 Ml Syr IVP PRN PRN Torsemide 40 mg 02/01/23 08:30 02/01/23 08:26 Torsemide 20 Mg Tab PO 40 mg DAILY ALAN Administration Trimethobenzamide HCl 200 mg 01/31/23 18:27 Trimethobenzamide 200 Mg/2 Ml Vial IM QID PRN PRN Trimethoprim/Sulfamethoxazole 2 tab 01/31/23 20:00 02/01/23 08:17 Sulfameth/Trimeth Ds Tab PO 2 tab BID ALAN Administration White Petrol/Mineral Oil/Lanolin 0 gm 01/31/23 17:58 Eucerin 120 Gm Jar TP PRN PRN PFSH Active Problems Active Problems: Problem Status Onset Code Discharge planning issues Z02.9 Right leg pain M79.604 Surgical wound infection T81.49XA Surgical wound dehiscence T81.31XA Cellulitis of right leg L03.115 Opioid dependence F11.20 Recurrent episodes of unresponsiveness R41.89 Syncope R55 Closed fracture of shaft of right tibia and fibula 11/23/22 S82.201A, S82.401A QT prolongation R94.31 Nonspecific paroxysmal spell R40.4 Episode of unresponsiveness R41.89 Chronic systolic CHF (congestive heart failure) I50.22 Ischemic cardiomyopathy I25.5 Obstructive sleep apnea G47.33 Hallucinations R44.3 Chronic respiratory failure with hypoxia J96.11 Syncopal episodes R55 Observed seizure-like activity R56.9 Opioid dependence on agonist therapy F11.20 Leg wound, left S81.802A 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 Pulmonary HTN I27.20 Heart failure I50.9 Vertigo R42 GERD (gastroesophageal reflux disease) K21.9 Essential hypertension I10 Asthma J45.909 Depression F32.A PTSD (post-traumatic stress disorder) F43.10 Tobacco abuse disorder Z72.0 Hypokalemia E87.6 Chronic gout [id number].[id number] Hyperlipidemia E78.5 Diabetic peripheral neuropathy E11.42 Type 2 diabetes mellitus E11.9 Medical History Medical History COVID was vaccinated but contracted Covid 06/22 DVT prophylaxis History of gastrointestinal ulcer Non-STEMI (non-ST elevated myocardial infarction) 09/02/21 Surgical History Surgical History H/O bone graft left knee H/O shoulder surgery x4 and ending with a full replacement H/O total hysterectomy History of appendectomy History of colonoscopy History of esophagogastroduodenoscopy (EGD) gastritis with gastric ulcers Previous section x4 delivery Tobacco Smoking/Tobacco Use Status: Current every day Tobacco Type: cigarettes Alcohol Alcohol Intake: current Alcohol intake frequency: holidays/special occasions only Alcohol type: beer Substance Use Substance use: Never Substance use type: does not use Vital Signs and Lab Results Vital Signs Most Recent Vital Signs in EMR: Most Recent Vital Signs Temp Pulse Resp BP Pulse Ox 37 C 94 H 20 92/47 L 95 02/01/23 08:00 02/01/23 08:00 02/01/23 08:00 02/01/23 08:00 02/01/23 08:00 Point of Care Results Point of Care Results: Finger Stick Blood Glucose 186 02/01/23 08:38 Lab Results Blood Type / Crossmatch: No Data to Display Complete Blood Count: White Blood Count 8.95 10^3/uL (4.4-10.8) 02/01/23 06:15 Red Blood Count 4.23 10^6/uL (3.93-5.22) 02/01/23 06:15 Hemoglobin 12.3 g/dL (11.2-15.7) 02/01/23 06:15 Hematocrit 37.5 % (36.0-46.0) 02/01/23 06:15 Platelet Count 371 10^3/uL (130-400) 02/01/23 06:15 Venous Blood Lactate 1.3 mmol/L (0.6-1.4) 01/17/23 17:15 Complete Metabolic Panel: Sodium 141 mmol/L (136-145) 02/01/23 06:15 Potassium 4.0 mmol/L (3.5-5.1) 02/01/23 06:15 Chloride 102 mmol/L (98-107) 02/01/23 06:15 Carbon Dioxide 32.9 mmol/L (21.0-32.0) H 02/01/23 06:15 BUN 30 mg/dL (7-18) H 02/01/23 06:15 Creatinine 1.2 mg/dL (0.55-1.02) H 02/01/23 06:15 Est GFR (CKD-EPI 2020) 56.19 (mL/min/1.73m2) 02/01/23 06:15 Magnesium 2.4 mg/dL (1.8-2.4) 02/01/23 06:15 Calcium 9.1 mg/dL (8.5-10.1) 02/01/23 06:15 Albumin 3.3 g/dL (3.4-5.0) L 01/23/23 06:45 Glucose 107 mg/dL (74-106) H 02/01/23 06:15 C-Reactive Protein 1.84 mg/dL (0.0-0.3) H 01/31/23 06:35 Liver Function Panel: Alanine Aminotransferase (ALT/SGPT) 27 U/L (14-59) 01/23/23 06:45 Aspartate Amino Transf (AST/SGOT) 22 U/L (15-37) 01/23/23 06:45 Coagulation Panel: No Data to Display Cardiac Panel: Troponin I < 50 ng/L (<or=60) 01/20/23 Arterial Blood Gas: No Data to Display Venous Blood Gas: No Data to Display Pancreas Panel: Lipase 24 U/L (16-77) 01/23/23 06:45 Thyroid Panel: No Data to Display Infectious Disease: Coronavirus (COVID-19)(PCR) Negative (Negative) 01/17/23 18:15 Coronavirus 2019 Source Nasal/Nares 01/17/23 18:15 Blood Cultures: No Data to Display Toxicology Panel: Urine Amphetamines Screen Negative (Negative) 01/24/23 16:43 Urine Benzodiazepines Screen Negative (Negative) 01/24/23 16:43 Urine Barbiturates Screen Negative (Negative) 01/24/23 16:43 Urine Cocaine Screen Negative (Negative) 01/24/23 16:43 Urine Methadone Screen Positive (Negative) A 01/24/23 16:43 Urine Opiates Screen Positive (Negative) A 01/24/23 16:43 Ur Tricyclic Antidepressants Screen Negative (Negative) 01/24/23 16:43 Ur Tetrahydrocannabinol (THC) Scrn Negative (Negative) 01/24/23 16:43 Panel: No Data to Display Imaging and Studies Imaging and Studies Study information below may be from another EMR and interpreted by another provider. Please see original notes in EMR for more complete details. EKG Summary: Conclusion Sinus rhythm...normal P axis, V-rate 60- 99 Anteroseptal infarct, old...Q >40mS, V1-V2 Prolonged QT interval...QTc >510mS Echocardiogram Summary: 10/19/2022: LVEF 39%, LV severely dilated, mod MR, trace TR, Pulmonary Function Summary: 10/26/2022: [facility] PFT found normal FEV1, FVC, and FEV1/FVC. No significant change with bronchodilator administration. TLC normal. Impression was normal lung function. Anesthesia Assessment and Plan Anesthesia History Personal History: No History of Anesthesia Complications Family History: No Family History of Anesthesia Complications Exercise Tolerance Exercise Tolerance: Unknown Implantable Cardiac Device Does patient have a Pacemaker or an ICD?: No Airway Exam Known Difficult Airway: No Mallampati Class: 3 Mouth Opening: Normal (> 3cm) Thyromental Distance: Greater than 3 cm Neck Range of Motion: Full ROM Neck Circumference: Normal Teeth Condition: Generalized Poor Dentition
--- NOTE | 2023-02-01 11:55 | W.ANESPRE ---
General Info Date of Service Date Performed: 02/01/23 Height: 5 ft 4 in Weight: 87.2 kg Body Mass Index (BMI): 33.0 Surgical Procedure: Operation Date: 02/01/23 13:10 Proposed Procedure Side Surgeon p Wound Vac Takedown & Closure Stevenson Wisdom MD Operation Date: 02/01/23 13:25 Proposed Procedure Side Surgeon p Wound Vac Takedown & Closure Stevenson Wisdom MD Meds Allergies and Home Medications Allergies Allergy/AdvReac Type Severity Reaction Status Date / Time Bleach (Sodium Hypochlorite) Allergy Unknown Verified 01/17/23 16:34 mushroom Allergy Unknown Verified 01/17/23 16:34 Penicillins Allergy Unknown Verified 01/17/23 16:34 tramadol Allergy Unknown Verified 01/17/23 16:34 mold Allergy Verified 01/17/23 16:34 trazodone Allergy Verified 01/17/23 16:34 Home Medication Medication Instructions Recorded albuterol sulfate 2.5 mg/3 mL 2.5 mg inhalation Q6H PRN 10/18/21 (0.083 %) solution for nebulization atorvastatin 80 mg tablet (Lipitor) 80 mg PO DAILY 10/18/21 clopidogrel 75 mg tablet (Plavix) 75 mg PO DAILY 10/18/21 insulin degludec 200 unit/mL (3 120 unit subcut DAILY 10/18/21 mL) subcutaneous pen (Tresiba FlexTouch U-200 insulin) insulin lispro 100 unit/mL unit subcut AC & HS PRN 10/18/21 subcutaneous pen (Humalog KwikPen (U-100) Insulin) magnesium oxide 400 mg (241.3 mg 400 mg PO BID 10/18/21 magnesium) tablet (MagOx) nitroglycerin 0.4 mg sublingual 0.4 mg sublingual Q5M PRN 10/18/21 tablet (Nitrostat) methadone 10 mg/5 mL oral solution 130 mg PO DAILY 03/15/22 carboxymethylcellulose sodium 0.5 1 drp OU QID #50 ea 08/15/22 % eye drops in a dropperette (Refresh Plus) albuterol sulfate 90 mcg/actuation 2 inh inhalation Q3H PRN PRN 10/29/22 aerosol inhaler (ProAir HFA) Shortness Of Breath Or Wheezing aspirin 81 mg tablet,delayed 81 mg PO DAILY 10/29/22 release (Adult Low Dose Aspirin) benzonatate 100 mg capsule 100 mg PO TID PRN PRN Cough 10/29/22 cetirizine 10 mg tablet (Zyrtec) 10 mg PO DAILY 10/29/22 citalopram 20 mg tablet (Celexa) 20 mg PO DAILY 10/29/22 colchicine 0.6 mg tablet (Colcrys) 0.6 mg PO BID 10/29/22 empagliflozin 10 mg tablet 10 mg PO DAILY 10/29/22 (Jardiance) fluticasone propionate 45 2 inh inhalation BID 10/29/22 mcg-salmeterol 21 mcg/actuation HFA inhaler (Advair HFA) folic acid 1 mg tablet 1 mg PO DAILY 10/29/22 potassium chloride 10 mEq 10 meq PO DAILY 10/29/22 capsule,extended release torsemide 20 mg tablet 20 mg PO BID 10/29/22 carvedilol 3.125 mg tablet 3.125 mg PO BID #60 tabs 11/29/22 liraglutide 0.6 mg/0.1 mL (18 mg/3 1.8 mg (0.3 mL) subcut DAILY #0 mL 11/29/22 mL) subcutaneous pen injector (Victoza 3-Tanmay) naloxone 4 mg/actuation nasal 4 mg intranasal Q2-3M PRN #2 ea 11/29/22 spray (Narcan) pantoprazole 40 mg tablet,delayed 40 mg PO BID #60 tabs 11/29/22 release (Protonix) ferrous sulfate 325 mg (65 mg 325 mg PO BID 12/15/22 iron) tablet,delayed release gabapentin 600 mg tablet mg PO TID 12/15/22 levetiracetam 1,000 mg tablet 1,000 mg PO Q12H #60 tabs 12/15/22 baclofen 10 mg tablet 10 mg PO TID PRN #30 tabs 12/16/22 cyclobenzaprine 10 mg tablet 10 mg PO TID PRN muscle spasm #20 12/22/22 tabs ibuprofen 600 mg tablet 600 mg PO TID PRN pain #30 tabs 12/22/22 cefadroxil 500 mg capsule 500 mg PO BID #28 caps 01/11/23 clindamycin HCl 150 mg capsule 450 mg PO TID #63 caps 01/12/23 acetaminophen 500 mg tablet 1,000 mg PO TID 01/17/23 Current Visit Medications: Current Medications Generic Name Dose Route Start Last Admin Trade Name Freq PRN Reason Stop Dose Admin Acetaminophen 975 mg 01/31/23 20:00 02/01/23 08:20 Acetaminophen 325 Mg Tab PO 975 mg TID ALAN Administration Al Hydrox/Mg Hydrox/Simethicone 30 ml 01/31/23 18:16 Mylanta Suspension 30 Ml Cup PO Q2H PRN PRN Albuterol Sulfate 2 puff 01/31/23 17:21 Albuterol Hfa 8 Gm 60 Puff Inh IH Q3H PRN PRN Shortness Of Breath Or Wheezing Aspirin 81 mg 02/01/23 08:30 02/01/23 08:45 Aspirin E.C. 81 Mg Tabec PO Not Given DAILY [facility] Atorvastatin Calcium 80 mg 01/31/23 20:00 Atorvastatin 40 Mg Tab PO QPM ALAN Budesonide/Formoterol Fumarate 2 puff 01/31/23 20:00 02/01/23 07:40 Budesonide/Formoterol 80/4.5 6.9 Gm 60 Puff Inh IH 2 puffs BID ALAN Administration Bupivacaine HCl 30 ml 02/01/23 11:45 Bupivacaine 0.25% Pres-Free 30 Ml Vial IJ DIRECTED ALAN Carvedilol 3.125 mg 01/31/23 20:00 02/01/23 08:22 Carvedilol 3.125 Mg Tab PO 3.125 mg BID ALAN Administration Citalopram Hydrobromide 20 mg 02/01/23 08:30 02/01/23 08:25 Citalopram 20 Mg Tab PO 20 mg DAILY ALAN Administration Clopidogrel Bisulfate 75 mg 02/01/23 08:30 02/01/23 08:19 Clopidogrel 75 Mg Tab PO 75 mg DAILY [facility] Administration Device 1 each 01/31/23 19:00 Inhaler, Assist Device MC DIRECTED ALAN Dextrose 0 gm 01/31/23 17:29 Glucose Oral Gel 15 Gm/37.5 Gm Tube PO DIRECTED PRN Dextrose/Water 0 gm 01/31/23 17:30 Dextrose 50%-Water 25 Gm/50 Ml Syr IVP DIRECTED PRN Dimethicone/Zinc Oxide 0 gm 01/31/23 17:25 Meche Protect Cream 142 Gm Tube TP PRN PRN Diphenhydramine HCl 25 mg 01/31/23 18:00 02/01/23 08:48 Diphenhydramine 50 Mg/Ml Vial IVP 25 mg Q6H PRN PRN Administration Empagliflozin 10 mg 02/01/23 08:30 02/01/23 08:25 Empaglifozin 10 Mg Tab PO 10 mg DAILY [facility] Administration Enoxaparin Sodium 30 mg 01/31/23 20:00 02/01/23 08:24 Enoxaparin 30 Mg/0.3 Ml Syr SC Not Given Q12H [facility] Fluticasone Propionate 0 gm 02/01/23 08:30 02/01/23 08:16 Fluticasone Nasal [place] 16 Gm Btl NS 1 spray DAILY [facility] Administration Folic Acid 1 mg 02/01/23 08:30 02/01/23 08:21 Folic Acid 1 Mg Tab PO 1 mg DAILY [facility] Administration Gabapentin 600 mg 02/01/23 08:00 02/01/23 08:18 Gabapentin 600 Mg Tab PO 600 mg 0800,1200 [facility] Administration Gabapentin 1,200 mg 01/31/23 20:00 Gabapentin 600 Mg Tab PO QPM [facility] Guaifenesin 600 mg 01/31/23 20:00 02/01/23 08:18 Guaifenesin 600 Mg Tabcr PO 600 mg BID [facility] Administration Hydromorphone HCl 4 mg 01/31/23 18:08 Hydromorphone 4 Mg Tab PO Q4H PRN PRN Hydromorphone HCl 1 mg 01/31/23 18:22 Hydromorphone 2 Mg/Ml Syr IVP Q4H PRN PRN wound care/vac change only Ringer's Solution 1,000 mls @ 80 mls/hr 02/01/23 05:00 02/01/23 08:49 IV 80 mls/hr INFUSION [facility] Administration Sodium Chloride 1,000 mls @ 80 mls/hr 01/31/23 18:30 Saline 1000ml Bag IV INFUSION [facility] IV Miscellaneous Supplies 1 each 01/31/23 18:15 Iv Access IV DIRECTED [facility] Insulin Aspart 0 units 02/01/23 08:00 02/01/23 08:38 Insulin Aspart 300 Units/3 Ml Pen SC Not Given 0800,1200,1700 [facility] Protocol Insulin Aspart 0 units 02/01/23 08:00 02/01/23 08:38 Insulin Aspart 300 Units/3 Ml Pen SC Not Given 0800,1200,1700 [facility] Lactobacillus Acidophilus/Casei 1 cap 02/01/23 08:30 02/01/23 08:20 L. Acidophilus, Casei, Rhamnosus Cap PO 1 cap DAILY ALAN Administration Levetiracetam 1,000 mg 01/31/23 20:00 02/01/23 08:25 Levetiracetam 500 Mg Tab PO 1,000 mg BID ALAN Administration Lorazepam 0.5 mg 01/31/23 18:09 Lorazepam 0.5 Mg Tab PO TID PRN PRN Magnesium Oxide 400 mg 02/01/23 08:30 02/01/23 08:19 Magnesium Oxide 400 Mg Tab PO 400 mg DAILY ALAN Administration Methadone HCl 130 mg 02/01/23 08:30 02/01/23 08:27 Methadone Liquid 10 Mg/Ml PO 130 mg DAILY ALAN Administration Methocarbamol 750 mg 01/31/23 18:09 02/01/23 08:18 Methocarbamol 750 Mg Tab PO 750 mg QID PRN PRN Administration Nicotine 12 cartridge 01/31/23 18:26 02/01/23 08:39 Nicotine 10 Mg/Cartridge 12 Cart/Pkg IH 1 cartridge Q2H PRN PRN Administration Nitroglycerin 0.4 mg 01/31/23 18:25 Nitroglycerin 0.4 Mg Tab SL Q5 MIN PRN X3 PRN Ondansetron HCl 4 mg 01/31/23 18:26 Ondansetron 4 Mg/2 Ml Vial IVP Q6H PRN PRN Pantoprazole Sodium 40 mg 01/31/23 20:00 02/01/23 08:21 Pantoprazole 40 Mg Tabcr PO 40 mg BID@0730,2000 [facility] Administration Pt's Own Liraglutide 1.8 each 02/01/23 08:30 02/01/23 08:40 [Victoza] 18 Mg/3 SC Not Given Ml Pen DAILY [facility] Pt's Own Insulin 120 each 02/01/23 08:30 02/01/23 08:40 Degludec (Tresiba) SC Not Given 200 Units/Ml Pen DAILY [facility] Potassium Chloride 20 meq 01/31/23 20:00 02/01/23 08:21 Potassium Chloride 20 Meq Tabcr PO 20 meq BID [facility] Administration Prochlorperazine Edisylate 10 mg 01/31/23 18:27 02/01/23 08:41 Prochlorperazine 10 Mg/2 Ml Vial IVP 10 mg Q6H PRN PRN Administration Sodium Chloride 0 ml 01/31/23 18:24 Normal Saline Flush 10 Ml Syr IVP PRN PRN Torsemide 40 mg 02/01/23 08:30 02/01/23 08:26 Torsemide 20 Mg Tab PO 40 mg DAILY ALAN Administration Trimethobenzamide HCl 200 mg 01/31/23 18:27 Trimethobenzamide 200 Mg/2 Ml Vial IM QID PRN PRN Trimethoprim/Sulfamethoxazole 2 tab 01/31/23 20:00 02/01/23 08:17 Sulfameth/Trimeth Ds Tab PO 2 tab BID ALAN Administration White Petrol/Mineral Oil/Lanolin 0 gm 01/31/23 17:58 Eucerin 120 Gm Jar TP PRN PRN PFSH Active Problems Active Problems: Problem Status Onset Code Discharge planning issues Z02.9 Right leg pain M79.604 Surgical wound infection T81.49XA Surgical wound dehiscence T81.31XA Cellulitis of right leg L03.115 Opioid dependence F11.20 Recurrent episodes of unresponsiveness R41.89 Syncope R55 Closed fracture of shaft of right tibia and fibula 11/23/22 S82.201A, S82.401A QT prolongation R94.31 Nonspecific paroxysmal spell R40.4 Episode of unresponsiveness R41.89 Chronic systolic CHF (congestive heart failure) I50.22 Ischemic cardiomyopathy I25.5 Obstructive sleep apnea G47.33 Hallucinations R44.3 Chronic respiratory failure with hypoxia J96.11 Syncopal episodes R55 Observed seizure-like activity R56.9 Opioid dependence on agonist therapy F11.20 Leg wound, left S81.802A 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 Pulmonary HTN I27.20 Heart failure I50.9 Vertigo R42 GERD (gastroesophageal reflux disease) K21.9 Essential hypertension I10 Asthma J45.909 Depression F32.A PTSD (post-traumatic stress disorder) F43.10 Tobacco abuse disorder Z72.0 Hypokalemia E87.6 Chronic gout [id number].[id number] Hyperlipidemia E78.5 Diabetic peripheral neuropathy E11.42 Type 2 diabetes mellitus E11.9 Medical History Medical History COVID was vaccinated but contracted Covid 06/22 DVT prophylaxis History of gastrointestinal ulcer Non-STEMI (non-ST elevated myocardial infarction) 09/02/21 Surgical History Surgical History H/O bone graft left knee H/O shoulder surgery x4 and ending with a full replacement H/O total hysterectomy History of appendectomy History of colonoscopy History of esophagogastroduodenoscopy (EGD) gastritis with gastric ulcers Previous section x4 delivery Tobacco Smoking/Tobacco Use Status: Current every day Tobacco Type: cigarettes Alcohol Alcohol Intake: current Alcohol intake frequency: holidays/special occasions only Alcohol type: beer Substance Use Substance use: Never Substance use type: does not use Vital Signs and Lab Results Vital Signs Most Recent Vital Signs in EMR: Most Recent Vital Signs Temp Pulse Resp BP Pulse Ox 37 C 94 H 20 92/47 L 95 02/01/23 08:00 02/01/23 08:00 02/01/23 08:00 02/01/23 08:00 02/01/23 08:00 Point of Care Results Point of Care Results: Finger Stick Blood Glucose 186 02/01/23 08:38 Lab Results Blood Type / Crossmatch: No Data to Display Complete Blood Count: White Blood Count 8.95 10^3/uL (4.4-10.8) 02/01/23 06:15 Red Blood Count 4.23 10^6/uL (3.93-5.22) 02/01/23 06:15 Hemoglobin 12.3 g/dL (11.2-15.7) 02/01/23 06:15 Hematocrit 37.5 % (36.0-46.0) 02/01/23 06:15 Platelet Count 371 10^3/uL (130-400) 02/01/23 06:15 Venous Blood Lactate 1.3 mmol/L (0.6-1.4) 01/17/23 17:15 Complete Metabolic Panel: Sodium 141 mmol/L (136-145) 02/01/23 06:15 Potassium 4.0 mmol/L (3.5-5.1) 02/01/23 06:15 Chloride 102 mmol/L (98-107) 02/01/23 06:15 Carbon Dioxide 32.9 mmol/L (21.0-32.0) H 02/01/23 06:15 BUN 30 mg/dL (7-18) H 02/01/23 06:15 Creatinine 1.2 mg/dL (0.55-1.02) H 02/01/23 06:15 Est GFR (CKD-EPI 2020) 56.19 (mL/min/1.73m2) 02/01/23 06:15 Magnesium 2.4 mg/dL (1.8-2.4) 02/01/23 06:15 Calcium 9.1 mg/dL (8.5-10.1) 02/01/23 06:15 Albumin 3.3 g/dL (3.4-5.0) L 01/23/23 06:45 Glucose 107 mg/dL (74-106) H 02/01/23 06:15 C-Reactive Protein 1.84 mg/dL (0.0-0.3) H 01/31/23 06:35 Liver Function Panel: Alanine Aminotransferase (ALT/SGPT) 27 U/L (14-59) 01/23/23 06:45 Aspartate Amino Transf (AST/SGOT) 22 U/L (15-37) 01/23/23 06:45 Coagulation Panel: No Data to Display Cardiac Panel: Troponin I < 50 ng/L (<or=60) 01/20/23 Arterial Blood Gas: No Data to Display Venous Blood Gas: No Data to Display Pancreas Panel: Lipase 24 U/L (16-77) 01/23/23 06:45 Thyroid Panel: No Data to Display Infectious Disease: Coronavirus (COVID-19)(PCR) Negative (Negative) 01/17/23 18:15 Coronavirus 2019 Source Nasal/Nares 01/17/23 18:15 Blood Cultures: No Data to Display Toxicology Panel: Urine Amphetamines Screen Negative (Negative) 01/24/23 16:43 Urine Benzodiazepines Screen Negative (Negative) 01/24/23 16:43 Urine Barbiturates Screen Negative (Negative) 01/24/23 16:43 Urine Cocaine Screen Negative (Negative) 01/24/23 16:43 Urine Methadone Screen Positive (Negative) A 01/24/23 16:43 Urine Opiates Screen Positive (Negative) A 01/24/23 16:43 Ur Tricyclic Antidepressants Screen Negative (Negative) 01/24/23 16:43 Ur Tetrahydrocannabinol (THC) Scrn Negative (Negative) 01/24/23 16:43 Panel: No Data to Display Imaging and Studies Imaging and Studies Study information below may be from another EMR and interpreted by another provider. Please see original notes in EMR for more complete details. EKG Summary: Conclusion Sinus rhythm...normal P axis, V-rate 60- 99 Anteroseptal infarct, old...Q >40mS, V1-V2 Prolonged QT interval...QTc >510mS Echocardiogram Summary: 10/19/2022: LVEF 39%, LV severely dilated, mod MR, trace TR, Pulmonary Function Summary: 10/26/2022: [facility] PFT found normal FEV1, FVC, and FEV1/FVC. No significant change with bronchodilator administration. TLC normal. Impression was normal lung function. Anesthesia Assessment and Plan Anesthesia History Personal History: No History of Anesthesia Complications Family History: No Family History of Anesthesia Complications Exercise Tolerance Exercise Tolerance: Unknown Cardiac & Pulmonary Exam Cardiac Exam: Normal S1/S2 Heart Sounds Pulmonary Exam: Other (Diminished) Implantable Cardiac Device Does patient have a Pacemaker or an ICD?: No Airway Exam Known Difficult Airway: No Mallampati Class: 3 Mouth Opening: Normal (> 3cm) Thyromental Distance: Greater than 3 cm Neck Range of Motion: Full ROM Neck Circumference: Normal Teeth Condition: Generalized Poor Dentition ASA Classification ASA Score: ASA 3 Emergency Case?: No NPO Status NPO Status: NPO Clears >2 hours, Solids >8 hours Status Status: Not Per Patient Anesthesia Plan Resuscitation Status: Full Code Anesthesia Technique: General Anesthesia Airway Planned: Natural Airway Monitors Used: Standard Monitors
[2023-02-01] MEDS: Bupivacaine 0.25% Pres-Free 30 ML VIAL IJ (12:19)
--- NOTE | 2023-02-01 12:34 | HPE_ITS ---
Date of service: 02/01/23 Time of Service: 07:20 Assessment and Plan Assessment and plan (1) Surgical wound infection: Status: Acute Assessment and plan: Multiple organisms including those of nondermatologic origin.? Currently being managed on Bactrim double strength twice daily per infectious disease recommendations.? CRP has stayed mildly elevated but has not peaked.? Clinically she has shown significant signs of improvement based on the leg today compared to just a week and a half ago.? Given the difficulties with housing I recommend that we proceed with a delayed primary closure about the right knee wound.? This does impart some additional risk of recurrence of infection, although I think is quite low given no significant deep penetration of the infection and significant improvements with this most recent treatment.? This would allow the wound to heal in a much better environment but also hopefully allow her to be able to be discharged.? We would continue with oral antibiotics.? I would use a vacuum- assisted closure device that would not be changed until she sees me back in the office.? N.p.o. today.? To the operating room later today. (2) Discharge planning issues: Status: Acute Assessment and plan: Plan to d/c with mom. No services needed. (3) Closed fracture of shaft of right tibia and fibula: Status: Acute Assessment and plan: Aracelis is 2 and half month status post intramedullary fixation of this right tibial shaft fracture.? In general, it seems to be progressing quite appropriately.? She does have pain suggested around the fracture site but she has been able to be independently mobile without any assistive devices at times.? The x-rays show healing.? At this point I think is very normal to have pain around the fracture site and in the leg itself.? This will continue to get better with time.? Physical therapy may be beneficial but at this point and no see any signs of complication from the fixation of the tibial shaft except for the wound infection and dehiscence. (4) Surgical wound dehiscence: Status: Resolved Assessment and plan: Currently managed with wound VAC.? To be closed in a delayed fashion today. History of Present Illness History of Present Illness Chief Complaint: Right Surgical Knee Wound Infection Narrative: Aracelis is a 47-year-old female with a significant past medical history including insulin-dependent diabetes, chronic systolic congestive heart failure with decreased ejection fraction, opioid dependent, who suffered a fracture of her right tibia and fibula in November. This was fixed with intramedullary nail. She was able be discharged to home after prolonged hospital course. Unfortunately, she had some wound dehiscence about the right lateral knee wound and was unable to manage this on her own at home and eventually this appeared to be infected. We attempted outpatient management with this was unsuccessful. She was admitted to the hospital for surgical debridement of that right knee wound. It did not show any deep penetration. The fascia was intact. The knee was aspirated and was not infected. There is no deep abscess. Given the history of this wound and compliance issues with dressing management, wound VAC was placed. The intention was for this to be switched to an outpatient service. But unfortunately she is now currently without any housing. Housing has been difficult to obtain with the wound VAC. Her wound has grown Enterococcus, Enterobacter cloacae, and Staph aureus. She has been transition from intravenous medications to oral medications with significant improvements with all lab function as well as clinical findings. She has no or minimal swelling about the right leg and no erythema, which were present on initiation of t reatment. Wound changes have been done as a swing bed status here in the hospital. There is been notable improvement with the wound. There is been minimal output. There has been significant improvement granulation tissue and once again no surrounding changes to suggest ongoing infection or deeper infection. Given the difficulties with discharging with housing with the current wound VAC, I recommended proceeding with a tertiary closure, delayed primary closure, of the right knee wound. For that reason, Aracelis has been readmitted to the hospital as an inpatient. During her course as a swing bed patient she did have some episodes of pain in the right leg which were investigated with repeat x-rays which continue to show healing of her fracture site. She also has some issues with chest pain which are intermittent and determined not to be of a true cardiac origin. Review of Systems All systems reviewed & are unremarkable except as noted in HPI and below PFSH All Active Problems Discharge planning issues (Acute) Right leg pain (Acute) Surgical wound infection (Acute) Cellulitis of right leg (Acute) Opioid dependence (Chronic) Recurrent episodes of unresponsiveness (Acute) Syncope (Chronic) Closed fracture of shaft of right tibia and fibula (Acute 11/23/22) s/p IMN of Right Tibia - 11/24/22 QT prolongation (Chronic) Nonspecific paroxysmal spell (Acute) Episode of unresponsiveness (Acute) Chronic systolic CHF (congestive heart failure) (Chronic) Ischemic cardiomyopathy (Chronic) Obstructive sleep apnea (Chronic) Hallucinations (Acute) Chronic respiratory failure with hypoxia (Chronic) Syncopal episodes (Chronic) Observed seizure-like activity (Acute) Opioid dependence on agonist therapy (Acute) Leg wound, left (Acute) Facial palsy (Acute) Pulmonary HTN (Acute) Heart failure (Acute) 09/02/21 with [place] low EF Vertigo (Acute) GERD (gastroesophageal reflux disease) (Chronic) Essential hypertension (Acute) Asthma (Chronic) Depression (Chronic) PTSD (post-traumatic stress disorder) (Chronic) Tobacco abuse disorder (Acute) Hypokalemia (Acute) Chronic gout (Acute) Hyperlipidemia (Acute) Diabetic peripheral neuropathy (Acute) Type 2 diabetes mellitus (Chronic) Medical History COVID was vaccinated but contracted Covid 06/22 DVT prophylaxis History of gastrointestinal ulcer Non-STEMI (non-ST elevated myocardial infarction) 09/02/21 Surgical History H/O bone graft left knee H/O shoulder surgery x4 and ending with a full replacement H/O total hysterectomy History of appendectomy History of colonoscopy History of esophagogastroduodenoscopy (EGD) gastritis with gastric ulcers Previous section x4 delivery Family History Mother Cancer Heart disease Obstructive lung disease Depression Arthritis Degeneration of intervertebral disc Father Alcohol use disorder Brother Hypertension Mood disorder Maternal Grandfather Alcohol use disorder Maternal Grandmother Breast cancer Maternal Aunt Breast cancer Paternal Aunt Breast cancer Social History Smoking/Tobacco Use Status: Current every day Tobacco Type: cigarettes Tobacco: How many years used: 34 Smoking risk assessment performed?: Yes Alcohol Intake: current Alcohol Intake frequency: holidays/special occasions only Alcohol type: beer Drug use: Never Substance use type: does not use Do you feel safe at home: Yes Do you feel safe in your relationship?: Yes Meds Allergies and Home Medications Allergies Allergy/AdvReac Type Severity Reaction Status Date / Time Bleach (Sodium Hypochlorite) Allergy Unknown Verified 01/17/23 16:34 mushroom Allergy Unknown Verified 01/17/23 16:34 Penicillins Allergy Unknown Verified 01/17/23 16:34 tramadol Allergy Unknown Verified 01/17/23 16:34 mold Allergy Verified 01/17/23 16:34 trazodone Allergy Verified 01/17/23 16:34 Home Medications Medication Instructions Recorded Confirmed Type albuterol sulfate 2.5 mg/3 mL 2.5 mg inhalation Q6H PRN 10/18/21 01/23/23 History (0.083 %) solution for nebulization atorvastatin 80 mg tablet (Lipitor) 80 mg PO DAILY 10/18/21 01/23/23 History clopidogrel 75 mg tablet (Plavix) 75 mg PO DAILY 10/18/21 01/17/23 History insulin degludec 200 unit/mL (3 120 unit subcut DAILY 10/18/21 01/23/23 History mL) subcutaneous pen (Tresiba FlexTouch U-200 insulin) insulin lispro 100 unit/mL unit subcut AC & HS PRN 10/18/21 01/13/23 History subcutaneous pen (Humalog KwikPen (U-100) Insulin) magnesium oxide 400 mg (241.3 mg 400 mg PO BID 10/18/21 01/23/23 History magnesium) tablet (MagOx) nitroglycerin 0.4 mg sublingual 0.4 mg sublingual Q5M PRN 10/18/21 01/23/23 History tablet (Nitrostat) methadone 10 mg/5 mL oral solution 130 mg PO DAILY 03/15/22 01/23/23 History carboxymethylcellulose sodium 0.5 1 drp OU QID #50 ea 08/15/22 01/23/23 Rx % eye drops in a dropperette (Refresh Plus) albuterol sulfate 90 mcg/actuation 2 inh inhalation Q3H PRN PRN 10/29/22 01/23/23 History aerosol inhaler (ProAir HFA) Shortness Of Breath Or Wheezing aspirin 81 mg tablet,delayed 81 mg PO DAILY 10/29/22 01/23/23 History release (Adult Low Dose Aspirin) benzonatate 100 mg capsule 100 mg PO TID PRN PRN Cough 10/29/22 01/23/23 History cetirizine 10 mg tablet (Zyrtec) 10 mg PO DAILY 10/29/22 01/23/23 History citalopram 20 mg tablet (Celexa) 20 mg PO DAILY 10/29/22 01/17/23 History colchicine 0.6 mg tablet (Colcrys) 0.6 mg PO BID 10/29/22 01/23/23 History empagliflozin 10 mg tablet 10 mg PO DAILY 10/29/22 01/23/23 History (Jardiance) fluticasone propionate 45 2 inh inhalation BID 10/29/22 01/23/23 History mcg-salmeterol 21 mcg/actuation HFA inhaler (Advair HFA) folic acid 1 mg tablet 1 mg PO DAILY 10/29/22 01/23/23 History potassium chloride 10 mEq 10 meq PO DAILY 10/29/22 01/23/23 History capsule,extended release torsemide 20 mg tablet 20 mg PO BID 10/29/22 01/17/23 History carvedilol 3.125 mg tablet 3.125 mg PO BID #60 tabs 11/29/22 01/23/23 Rx liraglutide 0.6 mg/0.1 mL (18 mg/3 1.8 mg (0.3 mL) subcut DAILY #0 mL 11/29/22 01/23/23 Rx mL) subcutaneous pen injector (Victoza 3-Tanmay) naloxone 4 mg/actuation nasal 4 mg intranasal Q2-3M PRN #2 ea 11/29/22 01/23/23 Rx spray (Narcan) pantoprazole 40 mg tablet,delayed 40 mg PO BID #60 tabs 11/29/22 01/23/23 Rx release (Protonix) ferrous sulfate 325 mg (65 mg 325 mg PO BID 12/15/22 01/23/23 History iron) tablet,delayed release gabapentin 600 mg tablet mg PO TID 12/15/22 01/13/23 History levetiracetam 1,000 mg tablet 1,000 mg PO Q12H #60 tabs 12/15/22 01/23/23 Rx baclofen 10 mg tablet 10 mg PO TID PRN #30 tabs 12/16/22 01/23/23 Rx cyclobenzaprine 10 mg tablet 10 mg PO TID PRN muscle spasm #20 12/22/22 01/23/23 Rx tabs ibuprofen 600 mg tablet 600 mg PO TID PRN pain #30 tabs 12/22/22 01/23/23 Rx cefadroxil 500 mg capsule 500 mg PO BID #28 caps 01/11/23 01/23/23 Rx clindamycin HCl 150 mg capsule 450 mg PO TID #63 caps 01/12/23 01/23/23 Rx acetaminophen 500 mg tablet 1,000 mg PO TID 01/17/23 01/23/23 History Exam Narrative Exam Narrative: Sitting up in the bed. Somewhat somnolent. RLE wound vac in place. MInimal edema. +ADF/APF/EHL/FHL. SOme pain to palpation about the tibia shaft. SILT DP/SP/Tib. CR < 3 sec. Results Last Vital Signs Temp 37 C 02/01/23 08:00 Pulse 94 H 02/01/23 08:00 Resp 20 02/01/23 08:00 BP 92/47 L 02/01/23 08:00 Pulse Ox 95 02/01/23 08:00 Time Spent Time spent with Patient: 40-54 minutes Time was spent: preparing to see the patient(eg.review tests), obtaining and/or reviewing separately otained hiistory, ordering medications,tests, procedures and counseling the patient
--- NOTE | 2023-02-01 12:42 | W.PM.OP ---
Date of service: 02/01/23 Time of Service: 12:42 Operative Note Operative Note DATE OF PROCEDURE: 02/01/23 PRE-OP DIAGNOSIS: Right Knee Surgical Wound Infection POST-OP DIAGNOSIS: same PROCEDURE: Irrigation and Debridement of Right Knee Surgical Wound Delayed Primary Closure - Right Knee Wound EDWARD Vacuum Dressing Application SURGEON: Stevenson Wisdom ANESTHESIA TYPE: General:No Airway Refer to Anesthesia Record ESTIMATED BLOOD LOSS: 0 COMPLICATIONS: None Patient was transported to: PACU Patient's condition: stable Indications: Aracelis is a 47-year-old female who unfortunately suffered a tibial fracture about the right side which was treated with interventional nail fixation. She developed wound dehiscence and superficial infection which continue to progress at home and thus was admitted for irrigation debridement and wound VAC placement. She has been doing well with the wound VAC with notable improvement with her wound bed. All symptoms and labs would suggest treatment of the infection. Given discharge planning issues, the wound VAC was a barrier, and therefore I recommended we proceed with a delayed primary closure. I reviewed this with Aracelis and she elected to proceed. Findings: There was healthy granulation tissue throughout the entire bed of the right lateral knee wound. Tissue flaps were elevated. The wound was thoroughly irrigated. The wound was closed primarily with nylon. A edward vacuum-assisted dressing was applied. Procedure Description: Aracelis was greeted in the preoperative holding area. Identity was confirmed the correct site identified and marked. The consent was reviewed the patient and signed previously on the floor. She was taken to the operating room. She is placed in a supine position with the right leg on a bone foam ramp. No tourniquet was utilized. Prophylactic antibiotics in the form of cefazolin were administered. A timeout was performed for safe surgery. The wound VAC was removed. The knee region was prepped with Betadine. The leg was draped in a standard fashion. The wound was inspected which showed healthy granulation tissue throughout. There is no undermining. There is no gross purulence. There is no debris. I then utilized a knife and tenotomy scissors to elevate the skin and deep dermal layer along with some subcutaneous fat. The granulation tissue was left in place. There is no significant debris. The wound was then thoroughly irrigated with a liter of normal saline. The wound edges were easily reapproximated. I then closed the wound with buried, deep 2-0 Monocryl sutures. The skin was closed with interrupted 4-0 nylon. A edward vacuum-assisted dressing was then applied. At the end the case all counts were correct. She was transferred back to the PACU in stable condition. She will continue with her oral antibiotics and likely discharge home tomorrow.
--- NOTE | 2023-02-01 13:32 | W.ANESPOSTOP ---
Postoperative Evaluation Date, Time and Location Date Performed: 02/01/23 Time Performed: 13:05 Patient Location: PACU Vital Signs Most Recent Imported Vital Signs: Most Recent Vital Signs Temp Pulse Resp BP Pulse Ox 36.8 C 88 16 107/69 96 02/01/23 13:30 02/01/23 13:30 02/01/23 13:30 02/01/23 13:30 02/01/23 13:30 Pain Score Most Recent Pain Score: Most Recent Pain Score Pain Level 0 02/01/23 13:10 Assessment Mental Status: Awake (Alert & Oriented to Patient Baseline) Airway and Respiratory Function: Patent airway with normal (patient baseline) respiratory exam Cardiovascular Function: Hemodynamically Stable Hydration Status: Adequately Hydrated Nausea & Vomiting: No Nausea or Vomiting Pain: Pt. Denies Any Pain Peripheral Nerve Block: Patient did not receive a nerve block
[2023-02-01] MEDS: Ibuprofen 600 MG TAB PO ×2 (14:12→21:37)
[2023-02-01] MEDS: HYDROmorphone 4 MG TAB PO ×2 (14:13→19:53)
[2023-02-01] MEDS: Ondansetron 4 MG/2 ML VIAL IVP (17:03)
[2023-02-01] MEDS: Normal Saline Flush 10 ML SYR IVP ×2 (17:03→19:55)
[2023-02-01] MEDS: Gabapentin 600 MG TAB 1200 MG PO (19:54)
[2023-02-01] MEDS: Atorvastatin 40 MG TAB 80 MG PO (19:55)
[2023-02-01] MEDS: Enoxaparin 30 MG/0.3 ML SYR SC (19:56)
[2023-02-01] MEDS: LORazepam 0.5 MG TAB PO (20:02)
[2023-02-01] MEDS: Trimethobenzamide 200 MG/2 ML VIAL IM (20:52)
[2023-02-02] MEDS: HYDROmorphone 4 MG TAB PO ×2 (01:36→06:15)
[2023-02-02] MEDS: LORazepam 0.5 MG TAB PO (01:36)
[2023-02-02] MEDS: Ondansetron 4 MG/2 ML VIAL IVP (01:36)
[2023-02-02] MEDS: Normal Saline Flush 10 ML SYR IVP (01:37)
[2023-02-02] MEDS: Trimethobenzamide 200 MG/2 ML VIAL IM (02:39)
[2023-02-02 02:49] VITALS: BP 94/59; PULSE 76; RESP 18; TEMP 36.9; O2SAT 97
[2023-02-02] MEDS: Ibuprofen 600 MG TAB PO (06:15)
--- NOTE | 2023-02-02 07:19 | W.PM.DS.N ---
Date of service: 02/02/23 Time of Service: 07:58 DS: Diagnosis Discharge Diagnosis (1) Surgical wound infection: Status: Acute (2) Discharge planning issues: Status: Acute (3) Closed fracture of shaft of right tibia and fibula: Status: Acute (4) Surgical wound dehiscence: Status: Resolved Discharge Plan Disposition Patient Disposition: Home Condition: Improving Discharge Details Reason For Visit: Surgery Admit Date/Time: 02/01/23 07:13 Admit Provider: Stevenson Wisdom Attending Provider: Stevenson Wisdom [facility]: Aracelis is a 47-year-old who suffered a tibia-fibula fracture in late November. She underwent intramedullary fixation. She had a prolonged course due to pain requirements and other medical conditions was able to discharge to home. Unfortunate she developed a wound dehiscence which later got infected. He is unable to be managed at home and therefore required admission with irrigation and debridement and wound VAC placement on 17 January. There is no deep abscess. There is no joint involvement. The wound grew multiple organisms including Enterococcus, Enterobacter cloacae, Staph aureus. Infectious disease recommendation was Bactrim double strength to tabs twice daily. She has been on this oral regimen. She has had some persistent nausea. Unfortunately, she was unable to be discharged home due to lack of housing and difficulties with management of wound VAC. During her hospital stay she was transition to a swing bed status around 21 January. She continued to have issues with nausea and muscle cramps. She was independent with all ambulation around her room requiring no assistance. Repeat x-rays of the leg and knee were performed which did not show any signs of complication and healing about the fractures. She had resolution of the swelling and of the redness of the leg. She had complaints of persistent nausea but also requesting to be knocked out every evening with these medications. This did cause difficulties between nursing staff and December. She never had any emesis. Given the difficulties with discharge disposition with the wound VAC and the significant improvement of the wound and leg environment, I recommended a delayed primary closure. On February 01, she was transition back to inpatient status and taken to the operating room for wound irrigation and debridement, wound VAC removal, and delayed primary closure. At that time, there is no sign of deep infection with healthy granulation tissue throughout. A vacuum-assisted dressing was applied. She continue to complain of nausea although without emesis. She was able to rest at night although complaining of pain when she awoke. Nevertheless, she was independent with ambulation. Her wound was now closed. There were no signs of complication. She reported that pain is much better without the wound vac and is anxious to leave the hospital. She was thus deemed safe for discharge. Home Meds and New Rx's Prescriptions: New sulfamethoxazole-trimethoprim 800-160 mg Tablet 2 tab PO BID Qty: 28 0RF hydromorphone 4 mg Tablet 4 mg PO Q6H PRNQty: 30 0RF promethazine 25 mg tablet 25 mg PO TID PRN (Reason: nausea and vomiting) Qty: 20 0RF Continued gabapentin 600 mg tablet PO TID Rx Instructions: 600 mg PO q am and at noon; 1200 mg PO Qpm levetiracetam 1,000 mg tablet 1,000 mg PO Q12H Qty: 60 5RF clindamycin HCl 150 mg capsule 450 mg PO TID Qty: 63 0RF Rx Instructions: take 3 tablets by mouth three times per day until gone atorvastatin [Lipitor] 80 mg tablet 80 mg PO DAILY clopidogrel [Plavix] 75 mg tablet 75 mg PO DAILY Tresiba FlexTouch U-200 200 unit/mL (3 mL) insulin pen 120 unit subcut DAILY magnesium oxide [MagOx] 400 mg (241.3 mg magnesium) tablet 400 mg PO BID nitroglycerin [Nitrostat] 0.4 mg tablet, sublingual 0.4 mg sublingual Q5M PRN Rx Instructions: do not exceed 3 doses per episode albuterol sulfate 2.5 mg /3 mL (0.083 %) solution for nebulization 2.5 mg inhalation Q6H PRN Rx Instructions: not started yet insulin lispro [Humalog KwikPen Insulin] 100 unit/mL insulin pen subcut AC & HS PRN Rx Instructions: Per sliding scale pt doesnt have directions ferrous sulfate 325 mg (65 mg iron) tablet,delayed release (DR/EC) 325 mg PO BID carvedilol 3.125 mg Tablet 3.125 mg PO BID Qty: 60 0RF Victoza 3-Tanmay 0.6 mg/0.1 mL (18 mg/3 mL) pen injector 1.8 mg SUBCUT DAILY Qty: 0 0RF Patient Comments: INJECT 0.6 MG UNDER THE SKIN ONCE DAILY TITRATE UP TOLERATED TO 1.2 MG DAILY, THEN MAINTAINANCE AT 1.8 MG DAILY naloxone [Narcan] 4 mg/actuation spray,non-aerosol 4 mg intranasal Q2-3M PRNQty: 2 0RF Rx Instructions: spray 1 dose into ONE nostril; alternate nostrils w each dose until help arrives methadone 10 mg/5 mL Solution 130 mg PO DAILY Rx Instructions: [facility] [phone] opens 7030 carboxymethylcellulose sodium [Refresh Plus] 0.5 % Dropperette 1 drp OU QID Qty: 50 0RF Rx Instructions: PRN potassium chloride 10 mEq capsule, extended release 10 meq PO DAILY Patient Comments: TAKE ONE CAPSULE BY MOUTH EVERY DAY torsemide 20 mg tablet 20 mg PO BID Patient Comments: TAKE ONE TABLET BY MOUTH EVERY DAY cetirizine [Zyrtec] 10 mg tablet 10 mg PO DAILY Patient Comments: TAKE ONE TABLET BY MOUTH EVERY DAY NEEDED aspirin [Adult Low Dose Aspirin] 81 mg tablet,delayed release (DR/EC) 81 mg PO DAILY Patient Comments: TAKE ONE TABLET BY MOUTH EVERY DAY citalopram [Celexa] 20 mg tablet 20 mg PO DAILY Patient Comments: TAKE ONE TABLET BY MOUTH EVERY DAY benzonatate 100 mg capsule 100 mg PO TID PRN PRN (Reason: Cough) Patient Comments: TAKE ONE CAPSULE BY MOUTH THREE TIMES A DAY NEEDED folic acid 1 mg tablet 1 mg PO DAILY Patient Comments: TAKE ONE TABLET BY MOUTH EVERY DAY albuterol sulfate [ProAir HFA] 90 mcg/actuation HFA aerosol inhaler 2 inh INHALATION Q3H PRN PRN (Reason: Shortness Of Breath Or Wheezing) Patient Comments: INHALE TWO PUFFS BY MOUTH EVERY 3 HOURS NEEDED colchicine [Colcrys] 0.6 mg tablet 0.6 mg PO BID Patient Comments: TAKE ONE TABLET BY MOUTH TWICE A DAY fluticasone propion-salmeterol [Advair HFA] 45-21 mcg/actuation HFA aerosol inhaler 2 inh INHALATION BID Patient Comments: INHALE TWO PUFFS BY MOUTH TWICE A DAY Jardiance 10 mg tablet 10 mg PO DAILY Patient Comments: TAKE ONE TABLET BY MOUTH EVERY DAY baclofen 10 mg tablet 10 mg PO TID PRNQty: 30 0RF cyclobenzaprine 10 mg tablet 10 mg PO TID PRN (Reason: muscle spasm) Qty: 20 0RF acetaminophen 500 mg Tablet 1,000 mg PO TID Qty: 90 0RF ibuprofen 600 mg tablet 600 mg PO TID PRN (Reason: pain) Qty: 90 0RF pantoprazole [Protonix] 40 mg tablet,delayed release (DR/EC) 40 mg PO BID Qty: 60 3RF Discontinued cefadroxil 500 mg capsule 500 mg PO BID Qty: 28 0RF Discharge Instructions Additional Instructions: Knee Discharge Instructions Activity: You may move and walk as tolerated but you should utilize crutches as needed. You do not need to wear your fracture walker boot may choose to do so for comfort. X-rays show abundant healing around the fracture site without sign of complication. You should work on range of motion of the foot, ankle, and knee as tolerated although limit forceful range of motion about the knee as the wound continues to heal. No formal physical therapy will be prescribed at this time as we wait on the wound to heal. Dressing: Keep the surgical dressing in place until your follow-up. This is a vacuum-assisted dressing which has a small device attached. Keep this in place. If any of the other light started to blink color different than green, please call the office. Usually, it may need new batteries. Medications: - You should take Tylenol and an anti-inflammatory ibuprofen as your primary pain control medications - You have been prescribed a stronger pain medication hydromorphone for breakthrough pain, take as needed as prescribed, but this will be a limited prescription. You will return to your methadone. A short course of cyclobenzaprine was also prescribed for muscle cramps. - You should also take 1 more week of antibiotic. This is Bactrim double strength 2 tabs twice daily. To help combat nausea, I recommend intake of yogurt or other probiotic available in the pharmacy. I have also prescribed Promethazine if needed. If the nausea persists and is intolerable then we will stop the antibiotic. - If you have constipation you should take Colace or Miralax (both [id number]). Follow-up: 2 weeks Activity:: Activity as Tolerated Equipment/Supplies:: No Equipment Needed Diet:: Carb Counting Discharge Orders Discharge Orders: Discharge Order (Routine); Ordered 02/02/23 Ordered By: Stevenson Wisdom DS: Summary Time Spent with Patient providing and/or coordinating discharge services: Greater than 30 minutes Status at Discharge Functional status at discharge: uses cane/walker Overall status at discharge: patient is progressing back to baseline Mental Status: mental status grossly normal Speech and Movement: speech and movement normal Mood: congruent mood Affect: normal affect Exam Narrative Exam Narrative: Sitting up in the bed on the phone. NAD. AAOx3. RLE dressing intact with a small area of sanguinous discharge. No surrounding errythema. Able to demonstrate active knee flexion/extension, and ADF/APF. SILT DP/SP/Tib. Psych Mental Status: mental status grossly normal Speech and Movement: speech and movement normal Mood: congruent mood Affect: normal affect DS: Data Vitals/I&O Vitals and I&O: Vital Signs Temperature 36.9 C 02/02/23 02:49 Temperature Source Tympanic 02/02/23 02:49 Pulse 76 02/02/23 02:49 Pulse Rhythm Regular 02/02/23 04:11 Respiratory Rate 18 02/02/23 02:49 Respiratory Effort Non-Labored 02/02/23 04:11 Respiratory Depth Shallow 02/02/23 04:11 Respiratory Pattern Normal 02/02/23 04:11 Blood Pressure 94/59 L 02/02/23 02:49 Pulse Oximetry 97 02/02/23 02:49 Oxygen Delivery Method Nasal Cannula 02/02/23 02:49 Oxygen Flow Rate 2 02/02/23 02:49 Pain Level 8 02/02/23 06:15 Comment RN informed of abnormal VS 02/02/23 02:49 Intake & Output 02/01/23 02/01/23 02/02/23 11:59 23:59 11:59 Intake Total 60 / 1940 1880 / 1940 Output Total 450 / 1450 1000 / 1450 1500 / 1500 Balance -390 / 490 880 / 490 -1490 / -1490 Weight 87.2 kg 87 kg Intake: IV 1100 / 1100 Oral 60 / 840 780 / 840 Output: Urine 450 / 1450 1000 / 1450 1500 / 1500 Other: Urine Color Yellow Yellow Yellow Urine Appearance Clear Clear Clear Urine Odor Strong Comment maybe cloudy - mixed with stool Stool Size Small Moderate Stool Characteristics Formed Formed Brown Hard Grier Brown Emesis Description None Voiding Methods Bedside Commode Bedside Commode Bedside Commode [facility] All Active Problems Discharge planning issues (Acute) Right leg pain (Acute) Surgical wound infection (Acute) Cellulitis of right leg (Acute) Opioid dependence (Chronic) Recurrent episodes of unresponsiveness (Acute) Syncope (Chronic) Closed fracture of shaft of right tibia and fibula (Acute 11/23/22) s/p IMN of Right Tibia - 11/24/22 QT prolongation (Chronic) Nonspecific paroxysmal spell (Acute) Episode of unresponsiveness (Acute) Chronic systolic CHF (congestive heart failure) (Chronic) Ischemic cardiomyopathy (Chronic) Obstructive sleep apnea (Chronic) Hallucinations (Acute) Chronic respiratory failure with hypoxia (Chronic) Syncopal episodes (Chronic) Observed seizure-like activity (Acute) Opioid dependence on agonist therapy (Acute) Leg wound, left (Acute) Facial palsy (Acute) Pulmonary HTN (Acute) Heart failure (Acute) 09/02/21 with ME low EF Vertigo (Acute) GERD (gastroesophageal reflux disease) (Chronic) Essential hypertension (Acute) Asthma (Chronic) Depression (Chronic) PTSD (post-traumatic stress disorder) (Chronic) Tobacco abuse disorder (Acute) Hypokalemia (Acute) Chronic gout (Acute) Hyperlipidemia (Acute) Diabetic peripheral neuropathy (Acute) Type 2 diabetes mellitus (Chronic) Medical History COVID was vaccinated but contracted Covid 06/22 DVT prophylaxis History of gastrointestinal ulcer Non-STEMI (non-ST elevated myocardial infarction) 09/02/21 Surgical History H/O bone graft left knee H/O shoulder surgery x4 and ending with a full replacement H/O total hysterectomy History of appendectomy History of colonoscopy History of esophagogastroduodenoscopy (EGD) gastritis with gastric ulcers Previous section x4 delivery Family History Mother Cancer Heart disease Obstructive lung disease Depression Arthritis Degeneration of intervertebral disc Father Alcohol use disorder Brother Hypertension Mood disorder Maternal Grandfather Alcohol use disorder Maternal Grandmother Breast cancer Maternal Aunt Breast cancer Paternal Aunt Breast cancer Social History Smoking/Tobacco Use Status: Current every day Tobacco Type: cigarettes Tobacco: How many years used: 34 Smoking risk assessment performed?: Yes Alcohol Intake: current Alcohol Intake frequency: holidays/special occasions only Alcohol type: beer Drug use: Never Substance use type: does not use Do you feel safe at home: Yes Do you feel safe in your relationship?: Yes Time Spent with Patient Time Spent with Patient: <45 minutes Time was spent: preparing to see the patient(eg.review tests), ordering medications,tests, procedures, counseling the patient and care coordination
[2023-02-02 07:30] VITALS: BP 104/69; PULSE 81; RESP 16; TEMP 37; O2SAT 97
[2023-02-02] MEDS: Fluticasone NASAL SPRAY 16 GM BTL NS (07:49)
[2023-02-02] MEDS: Budesonide/Formoterol 80/4.5 6.9 GM 60 PUFF INH IH (07:54)
[2023-02-02] MEDS: Methadone Liquid 10 MG/ML 130 MG PO (07:56)
[2023-02-02] MEDS: Empaglifozin 10 MG TAB PO (07:59)
[2023-02-02] MEDS: Torsemide 20 MG TAB 40 MG PO (07:59)
[2023-02-02] MEDS: Carvedilol 3.125 MG TAB PO (08:00)
[2023-02-02] MEDS: Acetaminophen 325 MG TAB 975 MG PO (08:00)
[2023-02-02] MEDS: Gabapentin 600 MG TAB PO (08:01)
[2023-02-02] MEDS: Citalopram 20 MG TAB PO (08:01)
[2023-02-02] MEDS: Magnesium Oxide 400 MG TAB PO (08:01)
[2023-02-02] MEDS: Aspirin E.C. 81 MG TABEC PO (08:01)
[2023-02-02] MEDS: Pantoprazole 40 MG TABCR PO (08:02)
[2023-02-02] MEDS: Sulfameth/Trimeth DS TAB 2 TAB PO (08:02)
[2023-02-02] MEDS: levETIRAcetam 500 MG TAB 1000 MG PO (08:02)
[2023-02-02] MEDS: Potassium Chloride 20 MEQ TABCR PO (08:03)
[2023-02-02] MEDS: Clopidogrel 75 MG TAB PO (08:03)
[2023-02-02] MEDS: guaiFENesin 600 MG TABCR PO (08:03)
[2023-02-02] MEDS: Folic Acid 1 MG TAB PO (08:04)
--- NOTE | 2023-02-02 11:03 | CMDISCH_ITS ---
- If Service Date Differs Date of service: 02/02/23 Time of Service: 11:03 LACE Index Scoring Tool - Questions: Length of Stay (in days): 14 or more Acuity (Admit via E.D.?): Yes Comorbidities: Previous M.I., Congestive Heart Failure E.D. Visits: 11 - Answers: Total Score: 17 Risk of Readmission: High Risk Care Management Discharge Reason for Hospitalization: Wound closure Discharge Plan: Aracelis transitioned from SWB1 to acute status for surgical int ervention. She is discharged today with community follow up and new referrals to [facility], [facility], [facility] and [facility]. Last dose letter faxed to [facility] by this proposal lead writer. Aracelis will also follow up with her PCP and reports being followed by [facility]. No home health services required per MD. She will transport via private vehicle with family. Patient/Family Education Needs: Review discharge instructions, discuss Ask Me Three. Services Needed at Discharge: Home Health Care Services (Resume LTC Choices for Care)
== END 2023-02-02 08:32 | disposition home or self-care (01) | DRG 908 ==
PROVIDERS: Admitting Provider Student in an Organized Health Care Education/Training Program; PCP Nurse Practitioner Family; Visit Provider Student in an Organized Health Care Education/Training Program
PROC: 0JQN0ZZ Repair Right Lower Leg Subcutaneous Tissue and Fascia, Open Approach (ICD-10-PCS; CPT 13160; principal; 2023-02-01 13:15)
DX: T81.31XA Disruption of external operation (surgical) wound, not elsewhere classified, initial encounter (principal); F11.20 Opioid dependence, uncomplicated; T81.49XA Infection following a procedure, other surgical site, initial encounter; I50.22 Chronic systolic (congestive) heart failure; L03.115 Cellulitis of right lower limb; J96.11 Chronic respiratory failure with hypoxia; S82.291D Other fracture of shaft of right tibia, subsequent encounter for closed fracture with routine healing; X58.XXXD Exposure to other specified factors, subsequent encounter; Z79.4 Long term (current) use of insulin; B95.2 Enterococcus as the cause of diseases classified elsewhere; B96.89 Other specified bacterial agents as the cause of diseases classified elsewhere; B95.61 Methicillin susceptible Staphylococcus aureus infection as the cause of diseases classified elsewhere; R55 Syncope and collapse; I45.81 Long QT syndrome; I25.5 Ischemic cardiomyopathy; G47.33 Obstructive sleep apnea (adult) (pediatric); G51.0 Bell's palsy; I27.20 Pulmonary hypertension, unspecified; K21.9 Gastro-esophageal reflux disease without esophagitis; J45.909 Unspecified asthma, uncomplicated; F32.A Depression, unspecified; F43.12 Post-traumatic stress disorder, chronic; F17.210 Nicotine dependence, cigarettes, uncomplicated; E87.6 Hypokalemia; M1A.9XX0 Chronic gout, unspecified, without tophus (tophi); E78.5 Hyperlipidemia, unspecified; E11.42 Type 2 diabetes mellitus with diabetic polyneuropathy; I25.2 Old myocardial infarction; Z87.11 Personal history of peptic ulcer disease
CPT/HCPCS: 13160; 94640; 97116; 97530; 94664; J0690; J0780; J1200; J1650; J2405

== ENCOUNTER → 2023-10-05 08:03 | Outpatient (BNVA) | payer MEDICARE, MEDICAID, SELFPAY | PROVIDERS: PCP Nurse Practitioner Family; Referring Provider Nurse Practitioner Family; Visit Provider Psychiatry & Neurology Neurology | DX: R40.4 Transient alteration of awareness (principal); G47.33 Obstructive sleep apnea (adult) (pediatric); R41.89 Other symptoms and signs involving cognitive functions and awareness; R41.3 Other amnesia | CPT/HCPCS: 99215; G2212 ==

== ENCOUNTER 2023-11-09 02:20 | Outpatient (CLI) | payer MEDICARE, MEDICAID, SELFPAY ==
--- NOTE | 2023-12-07 14:58 | PDOC.EEG ---
Neurology EEG EEG: [facility] Department of Neurology LONG-TERM AMBULATORY EEG REPORT Date of Recordin11/09/23 at 15:59:24 to 11/12/23 at 02:33:31 Interpreting Physician: Dr. Sharmin Elliott PCP/Referring Provider: Antonia Bertrand NP Reason for study: Ms. Monique reports prolonged episodes of ALEX concernins for seizure. Current Medications: Home Medications Medication Instructions Recorded Confirmed Type albuterol sulfate 2.5 mg/3 mL 2.5 mg inhalation Q6H PRN 10/18/21 10/05/23 History (0.083 %) solution for nebulization atorvastatin 80 mg tablet (Lipitor) 80 mg PO DAILY 10/18/21 10/05/23 History clopidogrel 75 mg tablet (Plavix) 75 mg PO DAILY 10/18/21 10/05/23 History insulin degludec 200 unit/mL (3 120 unit subcut DAILY 10/18/21 10/05/23 History mL) subcutaneous pen (Tresiba FlexTouch U-200 insulin) insulin lispro 100 unit/mL unit subcut AC & HS PRN 10/18/21 10/05/23 History subcutaneous pen (Humalog KwikPen (U-100) Insulin) magnesium oxide 400 mg (241.3 mg 400 mg PO BID 10/18/21 10/05/23 History magnesium) tablet (MagOx) nitroglycerin 0.4 mg sublingual 0.4 mg sublingual Q5M PRN 10/18/21 10/05/23 History tablet (Nitrostat) carboxymethylcellulose sodium 0.5 1 drp OU QID #50 ea 08/15/22 10/05/23 Rx % eye drops in a dropperette (Refresh Plus) albuterol sulfate 90 mcg/actuation 2 inh inhalation Q3H PRN PRN 10/29/22 10/05/23 History aerosol inhaler (ProAir HFA) Shortness Of Breath Or Wheezing aspirin 81 mg tablet,delayed 81 mg PO DAILY 10/29/22 10/05/23 History release (Adult Low Dose Aspirin) benzonatate 100 mg capsule 100 mg PO TID PRN PRN Cough 10/29/22 10/05/23 History cetirizine 10 mg tablet (Zyrtec) 10 mg PO DAILY 10/29/22 10/05/23 History citalopram 20 mg tablet (Celexa) 20 mg PO DAILY 10/29/22 10/05/23 History colchicine 0.6 mg tablet (Colcrys) 0.6 mg PO BID 10/29/22 10/05/23 History fluticasone propionate 45 2 inh inhalation BID 10/29/22 10/05/23 History mcg-salmeterol 21 mcg/actuation HFA inhaler (Advair HFA) folic acid 1 mg tablet 1 mg PO DAILY 10/29/22 10/05/23 History liraglutide 0.6 mg/0.1 mL (18 mg/3 1.8 mg (0.3 mL) subcut DAILY #0 mL 11/29/22 10/05/23 Rx mL) subcutaneous pen injector (Victoza 3-Tanmay) naloxone 4 mg/actuation nasal 4 mg intranasal Q2-3M PRN #2 ea 11/29/22 10/05/23 Rx spray (Narcan) ferrous sulfate 325 mg (65 mg 325 mg PO BID 12/15/22 10/05/23 History iron) tablet,delayed release gabapentin 600 mg tablet mg PO TID 12/15/22 10/05/23 History levetiracetam 1,000 mg tablet 1,000 mg PO Q12H #60 tabs 12/15/22 10/05/23 Rx clindamycin HCl 150 mg capsule 450 mg (3 x 150 mg) PO TID #63 caps 01/12/23 10/05/23 Rx acetaminophen 500 mg tablet 1,000 mg (2 x 500 mg) PO TID #90 02/02/23 10/05/23 Rx tabs ibuprofen 600 mg tablet 600 mg PO TID PRN pain #90 tabs 02/02/23 Rx pantoprazole 40 mg tablet,delayed 40 mg PO BID #60 tabs 02/02/23 10/05/23 Rx release (Protonix) promethazine 25 mg tablet 25 mg PO TID PRN nausea and 02/02/23 10/05/23 Rx vomiting #20 tabs apixaban 5 mg tablet (Eliquis) 5 mg PO BID 10/05/23 10/05/23 History buprenorphine 8 mg-naloxone 2 mg tab sublingual 10/05/23 10/05/23 History sublingual tablet bupropion HCl 150 mg 24 hr tablet, mg PO 10/05/23 10/05/23 History extended release doxycycline hyclate 100 mg capsule mg PO 10/05/23 10/05/23 History furosemide 40 mg tablet (Lasix) 40 mg PO DAILY 10/05/23 10/05/23 History lorazepam 1 mg tablet 1 mg PO BID 10/05/23 10/05/23 History metoprolol succinate 25 mg 25 mg PO DAILY 10/05/23 10/05/23 History tablet,extended release 24 hr mirtazapine 15 mg tablet 15 mg PO DAILY 10/05/23 10/05/23 History potassium chloride 20 mEq 30 meq PO DAILY 10/05/23 10/05/23 History tablet,extended release(part/cryst) spironolactone 100 mg tablet 100 mg PO DAILY 10/05/23 10/05/23 History METHODS: An 18-channel digitized electroencephalogram was recorded in the ambulatory setting with video. The 10/20 international system of electrode placement was used and bipolar and referential electrode montages were recorded. In addition to EEG the patient was monitored for EKG and by video. Activation procedures of photic stimulation and hyperventilation were performed if applicable. The duration of the recording was ~51 hours. DESCRIPTION OF EEG: Waking background activity: During maximal wakefulness a 9-Hz posterior background rhythm was present which was well-modulated, symmetrical, reactive to eye opening, and of moderate voltage. Faster frequencies were present in the bilateral anterior head regions. There was a normal anterior-posterior voltage gradient. Drowsy and sleeping background activity: During drowsiness, there was attenuation of the posterior dominant background rhythm and vertex waves. Normal stage II and III sleep was present with symmetrical sleep spindles, K-complexes, and vertex waves with slowing of the background rhythm to delta/theta frequencies. REM sleep manifested by rapid lateral eye movements and faster background rhythms was recorded. Arousal was unremarkable. There were frequent nocturnal arousals out of sleep. Interictal abnormalities: none. There were rare C4 sharp waves during wakefulness that were not considered to be epileptic. Ictal findings: No events reported or captured. Activating Procedures: Photic stimulation was performed which produced a symmetrical posterior driving response at various flash frequencies. Hyperventilation was not performed. EKG: EKG revealed normal sinus rhythm. INTERPRETATION: This long-term EEG is normal during the awake and sleep states as well as during the activation procedure. No events were captured. Frequent arousals from sleep noted. PRIOR EEG: -EEG (10/31/22): normal study. Predominantly asleep. CLINICAL CORRELATION: No focal regions of cerebral dysfunction or epileptiform activity was present. Epilepsy remains a clinical diagnosis and a normal EEG does not rule out epilepsy. No events were captured. Clinical correlation is advised. Sharmin Elliott MD Date of service: 11/09/23
== END 2023-11-09 02:21 | disposition home or self-care (01) ==
LOC: RT 02:20
PROVIDERS: PCP Nurse Practitioner Family; Visit Provider Psychiatry & Neurology Neurology
DX: R68.89 Other general symptoms and signs (principal); R41.89 Other symptoms and signs involving cognitive functions and awareness; R56.9 Unspecified convulsions
CPT/HCPCS: 95714; 95720; 95722

== ENCOUNTER → 2023-12-08 06:47 | Outpatient (BNVA) | payer MEDICARE, MEDICAID, SELFPAY | PROVIDERS: PCP Nurse Practitioner Family; Referring Provider Nurse Practitioner Family; Visit Provider Psychiatry & Neurology Neurology ==

== ENCOUNTER → 2024-02-05 08:32 | Outpatient (BNVA) | payer MEDICARE, MEDICAID, SELFPAY | PROVIDERS: PCP Nurse Practitioner Family; Referring Provider Nurse Practitioner Family; Visit Provider Psychiatry & Neurology Neurology | DX: R40.4 Transient alteration of awareness (principal); G47.33 Obstructive sleep apnea (adult) (pediatric); R41.89 Other symptoms and signs involving cognitive functions and awareness; R41.3 Other amnesia | CPT/HCPCS: 99215 ==

== ENCOUNTER 2024-07-15 11:50 | Outpatient (CLI) | payer MEDICARE, MEDICAID, SELFPAY ==
--- NOTE | 2024-07-15 11:48 | DI.RAD_ITS ---
Exam(s) XR TIB/FIB RT EXAM: XR TIB/FIB RT CLINICAL HISTORY: ORIF R tibia. TECHNIQUE: 2D digital imaging was performed. Two images were obtained. AP and lateral views were ob tained. COMPARISON: CR,XR XR TIB/FIB RT from 01/30/2023 FINDINGS: BONES: There are stable post operative changes present. The the distal tibial and proximal fibular f ractures show complete healing. No new fracture or dislocation. JOINTS: The joint spaces are well maintained. SOFT TISSUE: Normal. IMPRESSION: Stable postoperative changes. No acute abnormality. DATA REPOSITORY: RADIATION DOSE DELIVERED:
== END 2024-07-15 11:51 | disposition home or self-care (01) ==
LOC: DIORS 11:50
PROVIDERS: PCP Nurse Practitioner Family; Referring Provider Nurse Practitioner Family; Visit Provider Student in an Organized Health Care Education/Training Program
DX: S82.201A Unspecified fracture of shaft of right tibia, initial encounter for closed fracture (principal); S82.401A Unspecified fracture of shaft of right fibula, initial encounter for closed fracture
CPT/HCPCS: 73590

== ENCOUNTER 2024-08-08 02:42 | Outpatient (CLI) | payer MEDICARE, MEDICAID, SELFPAY ==
--- NOTE | 2024-08-08 06:45 | DI.RAD_ITS ---
Exam(s) XR FOOT LT COMPLETE EXAM: XR FOOT LT COMPLETE CLINICAL HISTORY: Bilat foot pain,m79.672. TECHNIQUE: 2D digital imaging was performed of the left foot. Three images were obtained. AP, obli que and lateral views were obtained. COMPARISON: No exams were available for comparison FINDINGS: BONES: No acute fracture is present. No bony destructive lesion is seen. There is an enthesophyte at the posterior calcaneus. There is a plantar calcaneal spur. JOINTS: No dislocation present. There are mild degenerative changes seen in the foot characterized by joint space narrowing and osteophytes. Small subchondral cysts are seen at the IP joint of the grea t toe. SOFT TISSUE: Normal. IMPRESSION: Arthrosis of the foot. DATA REPOSITORY: RADIATION DOSE DELIVERED:
--- NOTE | 2024-08-08 06:45 | DI.RAD_ITS ---
Exam(s) XR FOOT RT COMPLETE EXAM: XR FOOT RT COMPLETE CLINICAL HISTORY: bilat foot pain,m79.671. TECHNIQUE: 2D digital imaging was performed of the right foot. Three images were obtained. AP, obl ique and lateral views were obtained. COMPARISON: No exams were available for comparison FINDINGS: BONES: No acute fracture is present. No bony destructive lesion is seen. There is a small enthesophyt e at the posterior calcaneus. There is again seen the distal aspect of an intramedullary blair in the tibia. The visualized orthopedic hardware appears grossly unremarkable. JOINTS: There is arthrosis seen at the 1st MTP joint and the interphalangeal joint of the great toe w ith joint space narrowing present. Subchondral cysts and erosions are seen at the interphalangeal eulalia int. SOFT TISSUE: Normal. IMPRESSION: Arthrosis of the great toe. Inflammatory arthrosis should be considered. DATA REPOSITORY: RADIATION DOSE DELIVERED:
== END 2024-08-08 03:02 ==
LOC: DI 02:42
PROVIDERS: PCP Nurse Practitioner Family; Visit Provider Podiatrist
DX: M19.071 Primary osteoarthritis, right ankle and foot (principal); M19.072 Primary osteoarthritis, left ankle and foot
CPT/HCPCS: 73630

== ENCOUNTER → 2025-02-13 11:45 | Outpatient (BNVA) | payer MEDICARE, MEDICAID, SELFPAY | PROVIDERS: PCP Specialist/Technologist Athletic Trainer; Referring Provider Nurse Practitioner Family; Visit Provider Physical Therapy Assistant | DX: I73.89 Other specified peripheral vascular diseases (principal) | CPT/HCPCS: 93922 ==

== ENCOUNTER → 2025-03-10 11:25 | Outpatient (BNVA) | payer MEDICARE, MEDICAID, SELFPAY | PROVIDERS: PCP Specialist/Technologist Athletic Trainer; Referring Provider Specialist/Technologist Athletic Trainer; Visit Provider Podiatrist | DX: L97.522 Non-pressure chronic ulcer of other part of left foot with fat layer exposed (principal); E11.42 Type 2 diabetes mellitus with diabetic polyneuropathy; I73.89 Other specified peripheral vascular diseases; L60.3 Nail dystrophy; B35.3 Tinea pedis; M79.672 Pain in left foot; E11.621 Type 2 diabetes mellitus with foot ulcer; M79.671 Pain in right foot | CPT/HCPCS: 99214 ==

== ENCOUNTER 2025-03-31 01:15 | Outpatient (CLI) | payer MEDICARE, MEDICAID, SELFPAY ==
--- NOTE | 2025-03-31 10:41 | DI.RAD_ITS ---
Exam(s) XR FOOT RT COMPLETE EXAM: XR FOOT RT COMPLETE CLINICAL HISTORY: Comparison views, pain in rt foot, M79.671. TECHNIQUE: 2D digital imaging was performed. Three views. COMPARISON: CR XR FOOT LT COMPLETE from 08/08/2024 CR XR FOOT RT COMPLETE from 08/08/2024 CR XR FOOT RT COMPLETE from 03/31/2025 FINDINGS: BONES: No acute fracture is present. No bony destructive lesion is seen. There is an intramedullary blair in the distal tibia. Small heel spurs. JOINTS: No dislocation present. There is narrowing and irregularity at the 1st MTP joint with multiple adjacent subchondral cysts and mild periarticular spurring. There is minimal spurring at the 1st MTP joint. SOFT TISSUE: Normal small metallic density noted at the 4th toe. This may be external to the patient. IMPRESSION: Stable narrowing and erosions of the 1st interphalangeal joint. DATA REPOSITORY: RADIATION DOSE DELIVERED:
--- NOTE | 2025-03-31 10:41 | DI.RAD_ITS ---
Exam(s) XR FOOT LT COMPLETE EXAM: XR FOOT LT COMPLETE CLINICAL HISTORY: Left hallux ulcer, L97.522, pain in lt foot, M79.672. TECHNIQUE: 2D digital imaging was performed. Three views. COMPARISON: CR XR FOOT LT COMPLETE from 08/08/2024 CR XR FOOT RT COMPLETE from 03/31/2025 FINDINGS: BONES: No acute fracture is present. Prominent heel spurs. Small erosions are noted at the medial base of the distal phalanx and distal aspect of the proximal phalanx, similar to previous exam. JOINTS: No dislocation present. There are degenerative changes at the 1st MTP joint SOFT TISSUE: . No foreign body or abnormal gas collection IMPRESSION: Degenerative changes and erosions at the medial aspect of the interphalangeal joint of the great toe, similar to prior exam. DATA REPOSITORY: RADIATION DOSE DELIVERED:
== END 2025-03-31 01:35 ==
PROVIDERS: PCP Specialist/Technologist Athletic Trainer; Visit Provider Podiatrist
DX: L97.522 Non-pressure chronic ulcer of other part of left foot with fat layer exposed (principal); M79.671 Pain in right foot; M79.672 Pain in left foot; I73.89 Other specified peripheral vascular diseases; L60.3 Nail dystrophy; B35.3 Tinea pedis; E11.42 Type 2 diabetes mellitus with diabetic polyneuropathy
CPT/HCPCS: 99213; 73630

== ENCOUNTER → 2025-05-28 12:43 | Outpatient (BNVA) | payer MEDICARE, MEDICAID, SELFPAY | PROVIDERS: PCP Specialist/Technologist Athletic Trainer; Referring Provider Specialist/Technologist Athletic Trainer; Visit Provider Psychiatry & Neurology Neurology | DX: R40.4 Transient alteration of awareness (principal); G47.33 Obstructive sleep apnea (adult) (pediatric); R41.89 Other symptoms and signs involving cognitive functions and awareness; R41.3 Other amnesia; R51.9 Headache, unspecified; G89.29 Other chronic pain | CPT/HCPCS: 99215 ==

== ENCOUNTER → 2025-08-21 05:52 | Outpatient (CLI) | payer MEDICARE, MEDICAID, SELFPAY ==
--- NOTE | 2025-08-21 | DI.RAD_ITS ---
Exam(s) XR FOOT RT COMPLETE EXAM: XR FOOT RT COMPLETE CLINICAL HISTORY: OSTEOMYELITIS, M86.9. TECHNIQUE: 2D digital imaging was performed. Three views. COMPARISON: CR XR FOOT RT COMPLETE from 03/31/2025 CR XR FOOT LT COMPLETE from 03/31/2025 FINDINGS: BONES: No acute fracture is present. No bony destructive lesion is seen. Distal tibial hardware again noted. There are small heel spurs. JOINTS: No dislocation present. Irregular joint space narrowing again noted at the interphalangeal joint of the great toe. No acute erosions are identified. SOFT TISSUE: Normal. IMPRESSION: Degenerative changes at the interphalangeal joint of the great toe. No acute abnormality. DATA REPOSITORY: RADIATION DOSE DELIVERED:
--- NOTE | 2025-08-21 | DI.RAD_ITS ---
Exam(s) XR FOOT LT COMPLETE EXAM: XR FOOT LT COMPLETE CLINICAL HISTORY: OSTEOMYELITIS, M86.9. TECHNIQUE: 2D digital imaging was performed. Three views. COMPARISON: CR XR FOOT LT COMPLETE from 03/31/2025 FINDINGS: BONES: No acute fracture is present. Stable appearance of small erosion at the distal aspect of the proximal phalanx of the great toe.. Prominent heel spurs. JOINTS: No dislocation present. Mild degenerative changes of the intertarsal joints. Mild degenerative changes of 1st metatarsal phalangeal joint and interphalangeal joint of the great toe. SOFT TISSUE: Swelling and overlying gauze at the medial aspect of the great toe. IMPRESSION: Stable small bony erosion at the medial interphalangeal joint of the great toe. DATA REPOSITORY: RADIATION DOSE DELIVERED:
== END ==
LOC: DI 05:54
PROVIDERS: PCP Specialist/Technologist Athletic Trainer; Visit Provider Nurse Practitioner Family
DX: M86.9 Osteomyelitis, unspecified (principal)
CPT/HCPCS: 73630